=== PATIENT | female | born 1955 | race Caucasian/White ===

== ENCOUNTER 2016-07-06 01:59 | Emergency (ER) | payer OTHER, MEDICARE ==
[2016-07-06 02:15] VITALS: BP 168/98; PULSE 113; RESP 16; TEMP 98.6
--- NOTE | 2016-07-06 02:35 | ED ---
General Adult HPI - General Chief complaint: Recheck/Abnormal Lab/Rx Stated complaint: BLEEDING Time Seen by Provider: 07/06/16 02:19 Source: patient, family, EMS, RN notes reviewed Mode of arrival: EMS Limitations: no limitations - History of Present Illness Initial comments: Patient is a pleasant 60-year-old female presenting to the emergency Department with complaints of bleeding from her ostomy site. Patient has had bleeding problems multiple times previously. Patient recently had a stitch placed and removed. Patient has also been seen at other facilities for this. Patient has been in the emergency department and evaluated by her surgeon previously with bleeding problems from the ostomy site. Patient had a slow stream of blood after her dog jumped on it and has held pressure. Patient noticed that it did stop in route to the emergency Department. No bleeding at this time. Patient otherwise feels fine. No fatigue. No shortness of breath or weakness. - Related Data Home Medications Medication Instructions Recorded Confirmed predniSONE 20 mg PO DAILY 11/07/13 05/22/16 Cyanocobalamin (Vitamin B-12) 2,500 mcg PO DAILY 03/07/16 05/22/16 [Vitamin B-12] Linagliptin [Tradjenta] 5 mg PO DAILY 03/07/16 05/22/16 Multivits-Min/Iron/FA/Lutein 1 tab PO DAILY 03/07/16 05/22/16 [Centrum Silver Women Tablet] Ferrous Sulfate [Iron (65 MG 325 mg PO BID 04/23/16 05/22/16 Elemental)] Omeprazole 40 mg PO DAILY 05/09/16 05/22/16 Previous Rx's Medication Instructions Recorded Linezolid [Zyvox IV] 600 mg IVPB Q12HR #84 bag 04/29/16 ALPRAZolam [Xanax] 0.5 mg PO HS #30 tab 04/30/16 Codeine Sulfate 120 mg PO TID PRN #180 tablet 04/30/16 HYDROcodone/APAP 7.5-325MG [[place] 1 each PO Q6H PRN #120 tab 04/30/16 7.5-325] Allergies Allergy/AdvReac Type Severity Reaction Status Date / Time Iodinated Contrast Media - Allergy Unknown Verified 05/22/16 07:35 Oral and [Iodinated Contrast Media - IV Dye] levofloxacin [From Levaquin] Allergy Swelling Verified 05/22/16 07:35 Review of Systems ROS Statement: Those systems with pertinent positive or pertinent negative responses have been documented in the HPI. ROS Other: All systems not noted in ROS Statement are negative. Constitutional: Denies: fever Eyes: Denies: eye pain ENT: Denies: ear pain Respiratory: Denies: cough Cardiovascular: Denies: chest pain Endocrine: Denies: fatigue Gastrointestinal: Denies: abdominal pain Genitourinary: Denies: dysuria Musculoskeletal: Denies: back pain Skin: Denies: rash Neurological: Denies: weakness Past Medical History Past Medical History: Diabetes Mellitus, GERD/Reflux, Hypertension, Liver Disease, Osteoarthritis (OA) Additional Past Medical History / Comment(s): crohns, hx. hep c-currently in remission, hx. sepsis & ards 2007, has ileostomy-bleeding from stoma, hx. kidney stones History of Any Multi-Drug Resistant Organisms: MRSA Date of last positivie culture/infection: 04/23/16, 04/25/16 MDRO Source:: blood,hip Past Surgical History: Appendectomy, Bowel Resection, Cholecystectomy, Hernia Repair, Hysterectomy, Tubal Ligation Additional Past Surgical History / Comment(s): ileostomy 2009 WITH 3-4 RE- SUTURING EPISODES RELATED TO BLEEDING Past Anesthesia/Blood Transfusion Reactions: No Reported Reaction Past Psychological History: Anxiety Smoking Status: Never smoker Past Alcohol Use History: None Reported Additional Past Alcohol Use History / Comment(s): quit smoking 2007, 1ppd for 30 yrs. she denies any medical marijuana, marijuana, street drug or alcohol use. She is on disability. She lives at home with her and dog. Past Drug Use History: None Reported - Past Family History Father Family Medical History: Cancer Additional Family Medical History / Comment(s): MOTHER- DIABETES General Exam Limitations: no limitations General appearance: alert, in no apparent distress Head exam: Present: atraumatic Eye exam: Present: normal appearance Neck exam: Present: normal inspection Respiratory exam: Present: normal lung sounds bilaterally Cardiovascular Exam: Present: regular rate, normal rhythm GI/Abdominal exam: Present: soft, other (Right-sided ostomy site without active bleeding. Stool normal color.). Absent: tenderness Extremities exam: Present: normal inspection Neurological exam: Present: alert Psychiatric exam: Present: normal affect, normal mood Skin exam: Absent: rash Course Vital Signs 07/06/16 02:04 Temperature 98.6 F Pulse Rate 113 H Respiratory 16 Rate Blood Pressure 168/98 O2 Sat by Pulse 99 Oximetry Disposition Clinical Impression: Complication of ostomy Disposition: HOME SELF-CARE Condition: Stable Instructions: Postoperative Bleeding (ED) Additional Instructions: Please follow-up today with Dr. Barakat. Return for increased bleeding, weakness or fatigue or shortness of breath, worsening symptoms or other concerns. If bleeding reoccurs hold pressure. Referrals: Fab Recinos DO [Primary Care Provider] - 1-2 days Anuel Barakat MD [STAFF PHYSICIAN] - 1-2 days
== END 2016-07-06 03:30 | disposition home or self-care (01) ==
LOC: EC 01:59
DX: K94.10 Enterostomy complication, unspecified (principal); K21.9 Gastro-esophageal reflux disease without esophagitis; K50.90 Crohn's disease, unspecified, without complications; E11.9 Type 2 diabetes mellitus without complications; F41.9 Anxiety disorder, unspecified; Z88.1 Allergy status to other antibiotic agents; Z79.84 Long term (current) use of oral hypoglycemic drugs; Z91.041 Radiographic dye allergy status; Z79.899 Other long term (current) drug therapy
CPT/HCPCS: 99282

== ENCOUNTER 2016-07-06 15:00 | Emergency (ER) | payer OTHER, MEDICARE ==
[2016-07-06] MEDS ORDERED: SODIUM CHLORIDE 0.9% 1,000 ML IV ONE (16:11)
--- NOTE | 2016-07-06 16:18 | ED ---
General Adult HPI - General Chief complaint: Recheck/Abnormal Lab/Rx Stated complaint: ostemy/Bleeding Time Seen by Provider: 07/06/16 15:36 Source: patient Mode of arrival: wheelchair - History of Present Illness Initial comments: 60-year-old female with past medical history of Crohn's with ileostomy presented for the second time today with ostomy bleeding. She states that the bleeding is coming from the abdominal wall and not the ostomy itself. This morning when the bleeding started she was on her way to the ED when the bleeding resolved. She had no other symptoms and was discharged from the ED with controlled bleeding. Upon arrival home the bleeding resumed and she applied direct pressure which decreased the bleeding but it continued and she came back to the ER. She denies any lightheadedness, dizziness, chest pain, shortness of breath, fevers, chills. The bleeding is currently controlled but she is worried that his skin to continue and would like more definitive management. - Related Data Home Medications Medication Instructions Recorded Confirmed predniSONE 20 mg PO DAILY 11/07/13 07/06/16 Cyanocobalamin (Vitamin B-12) 2,500 mcg PO DAILY 03/07/16 07/06/16 [Vitamin B-12] Ferrous Sulfate [Iron (65 MG 325 mg PO BID 04/23/16 07/06/16 Elemental)] ALPRAZolam [Xanax] 0.25 mg PO HS PRN 07/06/16 07/06/16 Codeine Sulfate 60 mg PO DAILY PRN 07/06/16 07/06/16 Allergies Allergy/AdvReac Type Severity Reaction Status Date / Time adhesive tape Allergy Rash/Hives Verified 07/06/16 15:58 Iodinated Contrast Media - Allergy Unknown Verified 07/06/16 15:58 Oral and [Iodinated Contrast Media - IV Dye] levofloxacin [From Levaquin] Allergy Swelling Verified 07/06/16 15:58 Review of Systems ROS Statement: Those systems with pertinent positive or pertinent negative responses have been documented in the HPI. General: Patient denies fever, chills,nausea, or vomiting. HEENT: No visual changes. No eye pain. No nasal symptoms. No dysphagia.No odynophagia. No ENT pain. Cardiac: No chest pain. No palpitations. Pulmonary; No dyspnea. Denies cough GI: No abdominal pain. No diarrhea. No constipation. No bowel habit changes. No melena. : No dysuria.No hematuria. No hesitancy. No urgency. No renal lithiasis history. Musculoskeletal: No musculoskeletal pain. Orthopedic: Denies fracture history. Integumentary: Denies rash. Denies pruritis. States bleeding from skin of abdominal wall around ostomy. Skin is also inflamed and erythematous. Neurologic: Denies any lateralizing weakness. Denies numbness. Denies tingling. No seizure activity. ROS Other: All systems not noted in ROS Statement are negative. Past Medical History Past Medical History: Diabetes Mellitus, GERD/Reflux, Hypertension, Liver Disease, Osteoarthritis (OA) Additional Past Medical History / Comment(s): crohns, hx. hep c-currently in remission, hx. sepsis & ards 2007, has ileostomy, hx. kidney stones History of Any Multi-Drug Resistant Organisms: MRSA Date of last positivie culture/infection: 04/23/16, 04/25/16 MDRO Source:: blood,hip Past Surgical History: Appendectomy, Bowel Resection, Cholecystectomy, Hernia Repair, Hysterectomy, Tubal Ligation Additional Past Surgical History / Comment(s): ileostomy 2009 WITH 3-4 RE- SUTURING EPISODES RELATED TO BLEEDING Past Anesthesia/Blood Transfusion Reactions: No Reported Reaction Past Psychological History: Anxiety Smoking Status: Never smoker Past Alcohol Use History: None Reported Additional Past Alcohol Use History / Comment(s): quit smoking 2007, 1ppd for 30 yrs. she denies any medical marijuana, marijuana, street drug or alcohol use. She is on disability. She lives at home with her and dog. Past Drug Use History: None Reported - Past Family History Father Family Medical History: Cancer Additional Family Medical History / Comment(s): MOTHER- DIABETES General Exam - General Exam Comments Initial Comments: General: The patient is awake and alert, in no distress, and does not appear acutely ill. Eye: Pupils are equal, round and reactive to light, extra-ocular movements are intact; there is normal conjunctiva bilaterally. No signs of icterus. Ears, nose, mouth and throat: There are moist mucous membranes and no oral lesions. Neck: The neck is supple, there is no tenderness or JVD. Cardiovascular: There is a regular rate and rhythm. No murmur, rub or gallop is appreciated. Respiratory: Lungs are clear to auscultation, respirations are non-labored, breath sounds are equal. No wheezes, stridor, rales, or rhonchi. Gastrointestinal: Soft, non-distended, non-tender abdomen without masses or organomegaly noted. There is no rebound or guarding present. No CVA tenderness. Bowel sounds are unremarkable. Back: There is no tenderness to palpation in the midline. There is no obvious deformity. No rashes noted. Musculoskeletal: Normal ROM, no tenderness, There is no pedal edema. There is no calf tenderness or swelling. Sensation intact. Pulses equal bilaterally 2+. Neurological: CN II-XII intact, There are no obvious motor or sensory deficits. Coordination appears grossly intact. Speech is normal. Skin: Skin is warm and dry. Erythematous and inflamed skin of abdominal wall around ostomy without current bleeding. Psychiatric: Cooperative, appropriate mood & affect, normal judgment. Course Vital Signs 07/06/16 07/06/16 15:10 17:33 Temperature 98 F 97.9 F Pulse Rate 114 H 87 Respiratory 20 16 Rate Blood Pressure 164/88 135/87 O2 Sat by Pulse 98 99 Oximetry Medical Decision Making - Medical Decision Making 60-year-old female with past medical history of Crohn's disease and ileostomy presented for evaluation of stomal bleed that started this morning. She presented to this same ED for the bleed this morning but it stopped prior to arrival. Bleeding resumed when she got home and she came back for reevaluation and upon arrival the bleeding had stopped again. After reviewing her history it appears that the bleeding is due to inflammation/irritation of the abdominal wall skin around the stoma that is being irritated by the ileostomy bag. On physical exam the skin surrounding the stoma is inflamed and irritated but there appears to be no cellulitis or infection at this time. There is no active bleeding and her stoma is producing normal discharge. Discussed the patient with the cotton stripper physician for her surgeon (Dr. Barakat) who stated no intervention at this time as the bleeding was controlled. SHe further stated that if it should resume she should be sent back to [facility] where she was evaluated last time for the bleeding and had suturing to control it. Patient was informed of this result and that she would be discharged with instructions to follow-up with her primary care physician but to return if her symptoms should worsen or persist. She was further informed that her labs were within normal values and there was no hemoglobin drop. She acknowledged an understanding of this information and agreed with this plan of care. - Lab Data Result diagrams: 07/06/16 16:35 07/06/16 16:35 Lab Results 07/06/16 07/06/16 Range/Units 16:35 16:35 WBC 7.7 (3.8-10.6) k/uL RBC 3.32 L (3.80-5.40) m/uL Hgb 10.7 L (11.4-16.0) gm/dL Hct 33.6 L (34.0-46.0) % MCV 101.1 H D (80.0-100.0) fL MCH 32.2 (25.0-35.0) pg MCHC 31.9 (31.0-37.0) g/dL RDW 16.8 H (11.5-15.5) % Plt Count 121 L D (150-450) k/uL Neutrophils % 89 % Lymphocytes % 7 % Monocytes % 3 % Eosinophils % 0 % Basophils % 0 % Neutrophils # 6.9 (1.3-7.7) k/uL Lymphocytes # 0.6 L (1.0-4.8) k/uL Monocytes # 0.2 (0-1.0) k/uL Eosinophils # 0.0 (0-0.7) k/uL Basophils # 0.0 (0-0.2) k/uL Anisocytosis Slight Macrocytosis Slight Sodium 140 (137-145) mmol/L Potassium 4.2 (3.5-5.1) mmol/L Chloride 100 (98-107) mmol/L Carbon Dioxide 28 (22-30) mmol/L Anion Gap 12 mmol/L BUN 23 H (7-17) mg/dL Creatinine 1.41 H (0.52-1.04) mg/dL Est GFR (MDRD) Af Amer 46 (>60 ml/min/1.73 sqM) Est GFR (MDRD) Non-Af 38 (>60 ml/min/1.73 sqM) Glucose 190 H (74-99) mg/dL Calcium 8.8 (8.4-10.2) mg/dL Disposition Clinical Impression: Stomal bleeding, GUANACO (acute kidney injury) Disposition: HOME SELF-CARE Condition: Stable Instructions: Ileostomy Care (ED) Referrals: [place],Fab, DO [Primary Care Provider] - 1-2 days Time of Disposition: 17:19
[2016-07-06 16:54] LABS: Anisocytosis Slight; Basophils % (A) 0 %; CHCM 31.8; Eosinophils % (A) 0 %; HCT 33.6 % (34.0-46.0); HDW 2.73; Luc # (Auto) 0.05; Luc % (Auto) 1; Lymphocytes # (A) 0.6 k/uL (1.0-4.8); Lymphocytes % (A) 7 %; MCH 32.2 pg (25.0-35.0); MCHC 31.9 g/dL (31.0-37.0); MCV 101.1 fL (80.0-100.0); Macrocytosis Slight; Mean Platelet Volume 7.5; Monocytes # (A) 0.2 k/uL (0-1.0); Monocytes % (A) 3 %; Neutrophils # (A) 6.9 k/uL (1.3-7.7); Neutrophils % (A) 89 %; RBC 3.32 m/uL (3.80-5.40); RDW 16.8 % (11.5-15.5); WBC 7.7 k/uL (3.8-10.6); WBC (Perox) 8.05
[2016-07-06 16:55] LABS: HGB 10.7 gm/dL (11.4-16.0)
[2016-07-06 16:57] LABS: Calcium 8.8 mg/dL (8.4-10.2); Potassium 4.2 mmol/L (3.5-5.1)
[2016-07-06 17:34] VITALS: BP 135/87; PULSE 87; RESP 16; TEMP 97.9
--- NOTE | 2016-07-31 09:48 | CDI ---
Please confirm your Clinical Impression for GUANACO (Acute Kidney Injury). The documentation does not indicate any kidney injury. If you have questions please let me know. Thank you, Mely Kevin, [facility] [phone] I added an addendum for this diagnosis. Labs meet the criteria for the diagnosis. Please let me know if you require anything further. Thank you. Javan FRANKLIN
== END 2016-07-06 17:34 | disposition home or self-care (01) ==
LOC: EC 15:00
DX: K94.11 Enterostomy hemorrhage (principal); K50.90 Crohn's disease, unspecified, without complications; N17.9 Acute kidney failure, unspecified; F41.9 Anxiety disorder, unspecified; Z88.1 Allergy status to other antibiotic agents; Z86.14 Personal history of Methicillin resistant Staphylococcus aureus infection; Z91.041 Radiographic dye allergy status; Z91.048 Other nonmedicinal substance allergy status; Z87.891 Personal history of nicotine dependence; Z79.899 Other long term (current) drug therapy
CPT/HCPCS: 36415; 80048; 85025; 96360; 99283

== ENCOUNTER 2016-07-11 18:49 | Inpatient (IN) | payer OTHER, MEDICARE ==
[2016-07-11] MEDS ORDERED: SODIUM CHLORIDE 0.9% 500 ML IV ONE ×3 (19:16→21:26)
--- NOTE | 2016-07-11 19:18 | ED ---
General Adult HPI - General Chief complaint: GI Bleed Stated complaint: GI Bleed Time Seen by Provider: 07/11/16 19:00 Source: EMS, RN notes reviewed Mode of arrival: EMS Limitations: no limitations - History of Present Illness Initial comments: This is a 60-year-old female presents emergency Department complaining of feeling lightheaded and was passing out per patient states she has Crohn's and ileostomy. Patient states the last few days there is been quite a bit of blood in her ileostomy bag. Patient states she waited to come in until today because she started feeling lightheaded today and she had not felt lightheaded previously. Patient denies shortness of breath but she does states she is extremely tired. Patient denies chest pain or palpitations. Patient denies fever chills or cough. Patient denies abdominal pain patient denies nausea vomiting or diarrhea. Patient denies any recent injury or trauma. - Related Data Home Medications Medication Instructions Recorded Confirmed predniSONE 20 mg PO DAILY 11/07/13 07/11/16 Ferrous Sulfate [Iron (65 MG 325 mg PO BID 04/23/16 07/11/16 Elemental)] ALPRAZolam [Xanax] 0.25 mg PO HS PRN 07/06/16 07/11/16 Codeine Sulfate 120 mg PO TID PRN 07/06/16 07/11/16 Albuterol Sulfate [Proair Hfa] 1 - 2 puff INHALATION RT-Q6H PRN 07/11/16 Linagliptin [Tradjenta] 5 mg PO DAILY 07/11/16 07/11/16 Allergies Allergy/AdvReac Type Severity Reaction Status Date / Time Quinolones Allergy Severe Anaphylaxis Verified 07/11/16 21:51 adhesive tape Allergy Rash/Hives Verified 07/11/16 21:51 Iodinated Contrast Media - Allergy Unknown Verified 07/11/16 21:51 Oral and [Iodinated Contrast Media - IV Dye] Review of Systems ROS Statement: Those systems with pertinent positive or pertinent negative responses have been documented in the HPI. ROS Other: All systems not noted in ROS Statement are negative. Past Medical History Past Medical History: Diabetes Mellitus, GERD/Reflux, Hypertension, Liver Disease, Osteoarthritis (OA) Additional Past Medical History / Comment(s): crohns, hx. hep c-currently in remission, hx. sepsis & ards 2007, has ileostomy, hx. kidney stones History of Any Multi-Drug Resistant Organisms: MRSA Date of last positivie culture/infection: 04/23/16, 04/25/16 MDRO Source:: blood,hip Past Surgical History: Appendectomy, Bowel Resection, Cholecystectomy, Hernia Repair, Hysterectomy, Tubal Ligation Additional Past Surgical History / Comment(s): ileostomy 2009 WITH 3-4 RE- SUTURING EPISODES RELATED TO BLEEDING Past Anesthesia/Blood Transfusion Reactions: No Reported Reaction Past Psychological History: Anxiety Smoking Status: Never smoker Past Alcohol Use History: None Reported Additional Past Alcohol Use History / Comment(s): quit smoking 2007, 1ppd for 30 yrs. she denies any medical marijuana, marijuana, street drug or alcohol use. She is on disability. She lives at home with her and dog. Past Drug Use History: None Reported - Past Family History Father Family Medical History: Cancer Additional Family Medical History / Comment(s): MOTHER- DIABETES General Exam - General Exam Comments Initial Comments: GENERAL: Patient is well-developed and well-nourished. Patient is nontoxic and well- hydrated and is in mild distress. ENT: Neck is soft and supple. No significant lymphadenopathy is noted. Oropharynx is clear. Moist mucous membranes. Neck has full range of motion without eliciting any pain. EYES: The sclera were anicteric and conjunctiva were pink and moist. Extraocular movements were intact and pupils were equal round and reactive to light. Eyelids were unremarkable. PULMONARY: Unlabored respirations. Good breath sounds bilaterally. No audible rales rhonchi or wheezing was noted. CARDIOVASCULAR: Patient is tachycardic at 150 beats a minute ABDOMEN: Soft and nontender with normal bowel sounds. No palpable organomegaly was noted. There is no palpable pulsatile mass. SKIN: Patient's conjunctiva are pale patient's fingernails are pale patient's skin is pale NEUROLOGIC: Patient is alert and oriented x3. Cranial nerves II through XII are grossly intact. Motor and sensory are also intact. Normal speech, volume and content. Symmetrical smile. MUSCULOSKELETAL: Normal extremities with adequate strength and full range of motion. No lower extremity swelling or edema. No calf tenderness. LYMPHATICS: No significant lymphadenopathy is noted PSYCHIATRIC: Normal psychiatric evaluation. Limitations: no limitations Course Vital Signs 07/11/16 07/11/16 07/11/16 18:54 18:55 19:24 Temperature 98.4 F Pulse Rate 150 H 146 H 143 H Respiratory 14 14 22 Rate Blood Pressure 92/45 79/74 75/53 O2 Sat by Pulse 100 100 96 Oximetry 07/11/16 07/11/16 07/11/16 19:39 19:57 20:07 Temperature 100.1 F H 99.7 F H Pulse Rate 143 H 140 H 139 H Respiratory 20 22 22 Rate Blood Pressure 105/55 102/51 111/55 O2 Sat by Pulse 95 100 100 Oximetry 07/11/16 07/11/16 07/11/16 20:08 20:26 21:02 Temperature 99.7 F H 99.8 F H 102.7 F H Pulse Rate 139 H 133 H 128 H Respiratory 22 22 22 Rate Blood Pressure 111/55 90/47 79/44 O2 Sat by Pulse 100 100 Oximetry 07/11/16 07/11/16 21:41 22:14 Temperature 101 F H 100.4 F H Pulse Rate 120 H 120 H Respiratory 22 22 Rate Blood Pressure 72/37 76/41 O2 Sat by Pulse 100 100 Oximetry Procedures - Central Line Placement Right Femoral Consent Obtained: verbal consent Time Out Performed: Yes Patient Placed on Monitor/Pulse Ox: Yes Prep: mask, gown, gloves Central Line Prep: Chlorhexidine scrub Local Anesthesia Used: Lidocaine 1% Ultrasound Used for Placement: No Central Line Lumen Inserted: triple Central Line Position: good blood return, all ports aspirated, flushed, capped, sutured in place with nylon Dressing Applied: Tegaderm Patient Tolerated Procedure: well Complications: none Medical Decision Making - Medical Decision Making EKG shows sinus tachycardia with PACs at 147 bpm. 122 QRS is 78 QT interval 266 QTC is 416. Patient's EKG shows no ST segment elevation or depression or T- wave abdomen is noted I got a hemoglobin back of 6.3 and his patient and less than a week ago with a hemoglobin was 10.7 she is still actively bleeding out of her ileostomy area I normally don't order 2 units but I have ordered 2 units for this patient immediately because her heart rate is 150 she's hypotensive and extremely fatigued. Patient started spiking a fever in the emergency department we did a lactic acid was 5 we gave the patient a liter and half of fluid 2 units of blood and EMS had given the patient over a half a liter of fluid as well. Started patient on antibiotics in the emergency department I spoke with Dr. Cabezas and Dr. Conner and admitted the patient. - Lab Data Result diagrams: 07/11/16 19:15 07/11/16 19:15 Lab Results 07/11/16 07/11/16 07/11/16 Range/Units 19:15 19:15 19:15 WBC 20.9 H (3.8-10.6) k/uL RBC 1.97 L (3.80-5.40) m/uL Hgb 6.3 L* D (11.4-16.0) gm/dL Hct 19.6 L* (34.0-46.0) % MCV 99.4 (80.0-100.0) fL MCH 31.8 (25.0-35.0) pg MCHC 32.0 (31.0-37.0) g/dL RDW 18.1 H (11.5-15.5) % Plt Count 206 (150-450) k/uL Neutrophils % 79 % Lymphocytes % 15 % Monocytes % 4 % Eosinophils % 1 % Basophils % 0 % Neutrophils # 16.4 H (1.3-7.7) k/uL Lymphocytes # 3.1 (1.0-4.8) k/uL Monocytes # 0.8 (0-1.0) k/uL Eosinophils # 0.2 (0-0.7) k/uL Basophils # 0.1 (0-0.2) k/uL Anisocytosis Slight Macrocytosis Slight PT 16.3 H (9.0-12.0) sec INR 1.7 (<1.1) APTT 23.2 (22.0-30.0) sec Sodium (137-145) mmol/L Potassium (3.5-5.1) mmol/L Chloride (98-107) mmol/L Carbon Dioxide (22-30) mmol/L Anion Gap mmol/L BUN (7-17) mg/dL Creatinine (0.52-1.04) mg/dL Est GFR (MDRD) Af Amer (>60 ml/min/1.73 sqM) Est GFR (MDRD) Non-Af (>60 ml/min/1.73 sqM) Glucose (74-99) mg/dL Plasma Lactic Acid Catrachito (0.7-2.0) mmol/L Calcium (8.4-10.2) mg/dL Total Bilirubin (0.2-1.3) mg/dL AST (14-36) U/L ALT (9-52) U/L Alkaline Phosphatase (38-126) U/L Total Creatine Kinase 30 (30-135) U/L CK-MB (CK-2) 0.4 (0.0-2.4) ng/mL CK-MB (CK-2) Rel Index 1.3 Troponin I 0.106 H* (0.000-0.034) ng/mL Total Protein (6.3-8.2) g/dL Albumin (3.5-5.0) g/dL Urine Color Urine Appearance (Clear) Urine pH (5.0-8.0) Ur Specific [place] (1.001-1.035) Urine Protein (Negative) Urine Glucose (UA) (Negative) Urine Ketones (Negative) Urine Blood (Negative) Urine Nitrate (Negative) Urine Bilirubin (Negative) Urine Urobilinogen (<2.0) mg/dL Ur Leukocyte Esterase (Negative) Urine RBC (0-5) /hpf Urine WBC (0-5) /hpf Urine WBC Clumps (None) /hpf Urine Bacteria (None) /hpf Influenza Type A RNA (Not Detectd) Influenza Type B (PCR) (Not Detectd) Blood Type Blood Type Recheck Antibody Screen Crossmatch Spec Expiration Date 07/11/16 07/11/16 07/11/16 Range/Units 19:15 19:15 19:15 WBC (3.8-10.6) k/uL RBC (3.80-5.40) m/uL Hgb (11.4-16.0) gm/dL Hct (34.0-46.0) % MCV (80.0-100.0) fL MCH (25.0-35.0) pg MCHC (31.0-37.0) g/dL RDW (11.5-15.5) % Plt Count (150-450) k/uL Neutrophils % % Lymphocytes % % Monocytes % % Eosinophils % % Basophils % % Neutrophils # (1.3-7.7) k/uL Lymphocytes # (1.0-4.8) k/uL Monocytes # (0-1.0) k/uL Eosinophils # (0-0.7) k/uL Basophils # (0-0.2) k/uL Anisocytosis Macrocytosis PT (9.0-12.0) sec INR (<1.1) APTT (22.0-30.0) sec Sodium 133 L (137-145) mmol/L Potassium 4.9 (3.5-5.1) mmol/L Chloride 94 L (98-107) mmol/L Carbon Dioxide 26 (22-30) mmol/L Anion Gap 13 mmol/L BUN 38 H (7-17) mg/dL Creatinine 3.11 H (0.52-1.04) mg/dL Est GFR (MDRD) Af Amer 19 (>60 ml/min/1.73 sqM) Est GFR (MDRD) Non-Af 15 (>60 ml/min/1.73 sqM) Glucose 145 H (74-99) mg/dL Plasma Lactic Acid [place] 5.0 H* (0.7-2.0) mmol/L Calcium 8.2 L (8.4-10.2) mg/dL Total Bilirubin 0.9 (0.2-1.3) mg/dL AST 30 (14-36) U/L ALT 38 (9-52) U/L Alkaline Phosphatase 46 (38-126) U/L Total Creatine Kinase (30-135) U/L CK-MB (CK-2) (0.0-2.4) ng/mL CK-MB (CK-2) Rel Index Troponin I (0.000-0.034) ng/mL Total Protein 5.2 L (6.3-8.2) g/dL Albumin 2.7 L (3.5-5.0) g/dL Urine Color Urine Appearance (Clear) Urine pH (5.0-8.0) Ur Specific [place] (1.001-1.035) Urine Protein (Negative) Urine Glucose (UA) (Negative) Urine Ketones (Negative) Urine Blood (Negative) Urine Nitrate (Negative) Urine Bilirubin (Negative) Urine Urobilinogen (<2.0) mg/dL Ur Leukocyte Esterase (Negative) Urine RBC (0-5) /hpf Urine WBC (0-5) /hpf Urine WBC Clumps (None) /hpf Urine Bacteria (None) /hpf Influenza Type A RNA (Not Detectd) Influenza Type B (PCR) (Not Detectd) Blood Type A Positive Blood Type Recheck No Antibody Screen NEGATIVE Crossmatch See Detail Spec Expiration Date 07/14/2016 - 231407/11/16 07/11/16 Range/Units 21:20 21:30 WBC (3.8-10.6) k/uL RBC (3.80-5.40) m/uL Hgb (11.4-16.0) gm/dL Hct (34.0-46.0) % MCV (80.0-100.0) fL MCH (25.0-35.0) pg MCHC (31.0-37.0) g/dL RDW (11.5-15.5) % Plt Count (150-450) k/uL Neutrophils % % Lymphocytes % % Monocytes % % Eosinophils % % Basophils % % Neutrophils # (1.3-7.7) k/uL Lymphocytes # (1.0-4.8) k/uL Monocytes # (0-1.0) k/uL Eosinophils # (0-0.7) k/uL Basophils # (0-0.2) k/uL Anisocytosis Macrocytosis PT (9.0-12.0) sec INR (<1.1) APTT (22.0-30.0) sec Sodium (137-145) mmol/L Potassium (3.5-5.1) mmol/L Chloride (98-107) mmol/L Carbon Dioxide (22-30) mmol/L Anion Gap mmol/L BUN (7-17) mg/dL Creatinine (0.52-1.04) mg/dL Est GFR (MDRD) Af Amer (>60 ml/min/1.73 sqM) Est GFR (MDRD) Non-Af (>60 ml/min/1.73 sqM) Glucose (74-99) mg/dL Plasma Lactic Acid [place] (0.7-2.0) mmol/L Calcium (8.4-10.2) mg/dL Total Bilirubin (0.2-1.3) mg/dL AST (14-36) U/L ALT (9-52) U/L Alkaline Phosphatase (38-126) U/L Total Creatine Kinase (30-135) U/L CK-MB (CK-2) (0.0-2.4) ng/mL CK-MB (CK-2) Rel Index Troponin I (0.000-0.034) ng/mL Total Protein (6.3-8.2) g/dL Albumin (3.5-5.0) g/dL Urine Color Yellow Urine Appearance Turbid H (Clear) Urine pH 6.0 (5.0-8.0) Ur Specific [place] 1.015 (1.001-1.035) Urine Protein 3+ H (Negative) Urine Glucose (UA) Negative (Negative) Urine Ketones Negative (Negative) Urine Blood Large H (Negative) Urine Nitrate Negative (Negative) Urine Bilirubin Negative (Negative) Urine Urobilinogen <2.0 (<2.0) mg/dL Ur Leukocyte Esterase Large H (Negative) Urine RBC 96 H (0-5) /hpf Urine WBC >182 H (0-5) /hpf Urine WBC Clumps Many H (None) /hpf Urine Bacteria Many H (None) /hpf Influenza Type A RNA Not Detected (Not Detectd) Influenza Type B (PCR) Not Detected (Not Detectd) Blood Type Blood Type Recheck Antibody Screen Crossmatch Spec Expiration Date Critical Care Time Critical Care Time: Yes Total Critical Care Time: 45 Disposition Clinical Impression: Urinary tract infection, Sepsis, Acute renal failure, Anemia, GI bleed Disposition: ADMITTED IP TO THIS HOSP Referrals: Fab Recinos DO [Primary Care Provider] - 1-2 days Time of Disposition: 22:23
[2016-07-11 19:28] LABS: Anisocytosis Slight; Basophils # (A) 0.1 k/uL (0-0.2); Basophils % (A) 0 %; CH 32.7; CHCM 33.2; Eosinophils # (A) 0.2 k/uL (0-0.7); Eosinophils % (A) 1 %; HDW 3.31; Luc # (Auto) 0.26; Luc % (Auto) 1; Lymphocytes # (A) 3.1 k/uL (1.0-4.8); Lymphocytes % (A) 15 %; MCH 31.8 pg (25.0-35.0); MCV 99.4 fL (80.0-100.0); Macrocytosis Slight; Mean Platelet Volume 7.6; Monocytes # (A) 0.8 k/uL (0-1.0); Monocytes % (A) 4 %; Neutrophils # (A) 16.4 k/uL (1.3-7.7); Neutrophils % (A) 79 %; RBC 1.97 m/uL (3.80-5.40); RDW 18.1 % (11.5-15.5); WBC 20.9 k/uL (3.8-10.6); WBC (Perox) 21.54
[2016-07-11 19:30] LABS: HCT 19.6 % (34.0-46.0); HGB 6.3 gm/dL (11.4-16.0)
[2016-07-11 19:32] LABS: Calcium 8.2 mg/dL (8.4-10.2); Potassium 4.9 mmol/L (3.5-5.1); Total Bilirubin 0.9 mg/dL (0.2-1.3); Total Protein 5.2 g/dL (6.3-8.2)
[2016-07-11 19:44] LABS: INR 1.7 (<1.1); Partial Thromboplastin Time 23.2 sec (22.0-30.0); Prothrombin Time 16.3 sec (9.0-12.0)
[2016-07-11 19:56] LABS: Creatine Kinase MB 0.4 ng/mL (0.0-2.4)
[2016-07-11 20:01] LABS: Troponin I 0.106 ng/mL (0.000-0.034)
[2016-07-11] MEDS ORDERED: ACETAMINOPHEN TAB 500 MG TAB PO STA (20:02)
--- NOTE | 2016-07-11 20:49 | XR ---
EXAMINATION TYPE: XR chest 1V portable DATE OF EXAM: 07/11/2016 8:38 PM COMPARISON: 04/27/2016 HISTORY: Chest pain TECHNIQUE: Single frontal view of the chest is obtained. FINDINGS: There is no focal air space opacity, pleural effusion, or pneumothorax seen. The cardiac silhouette size is within normal limits. The osseous structures are intact. IMPRESSION: 1. No acute process.
[2016-07-11] MEDS ORDERED: IBUPROFEN IV 600 MG in SODIUM CHLORIDE 0.9% 250 ML IV STA (21:11)
[2016-07-11] MEDS ORDERED: cefTRIAXone 2,000 MG in SODIUM CHLORIDE 0.9% 100 ML IVPB STA (21:19)
[2016-07-11 21:42] LABS: Appearance,Urine Turbid (Clear); Bacteria,Urine Many /hpf; Bilirubin,Urine Negative (Negative); Glucose,Urine (UA) Negative (Negative); Ketones,Urine Negative (Negative); Leukocyte Esterase,Urine Large (Negative); Nitrite,Urine Negative (Negative); Particle Count 92716; Protein,Urine 3+ (Negative); RBC,Urine 96 /hpf (0-5); UA Billing (MACRO vs. MICRO) MICRO; Urobilinogen,Urine <2.0 mg/dL (<2.0); WBC,Urine >182 /hpf (0-5)
[2016-07-11 21:43] LABS: Specific Gravity,Urine 1.015 (1.001-1.035)
[2016-07-11] MEDS ORDERED: NALOXONE 0.4 MG/ML 1 ML VIAL IV PRN (22:23)
[2016-07-11] MEDS: NOREPINEPHRINE 16 MG in SODIUM CHLORIDE 0.9% 250 ML IV SCH (23:35)
[2016-07-12 00:22] LABS: Anisocytosis Slight; CH 32.7; CHCM 34.8; HDW 3.53; HGB 7.1 gm/dL (11.4-16.0); MCH 31.8 pg (25.0-35.0); MCHC 33.5 g/dL (31.0-37.0); MCV 94.9 fL (80.0-100.0); Mean Platelet Volume 7.3; Poikilocytosis Slight; RBC 2.22 m/uL (3.80-5.40); RDW 16.9 % (11.5-15.5); WBC 12.3 k/uL (3.8-10.6)
[2016-07-12 01:06] LABS: Glucose,Whole Blood 143 mg/dL (75-99)
[2016-07-12 06:17] LABS: Anisocytosis Slight; Basophils % (A) 0 %; CH 32.1; CHCM 34.4; Eosinophils # (A) 0.2 k/uL (0-0.7); Eosinophils % (A) 1 %; HCT 27.6 % (34.0-46.0); HDW 3.59; Luc # (Auto) 0.22; Luc % (Auto) 2; Lymphocytes # (A) 1.9 k/uL (1.0-4.8); Lymphocytes % (A) 13 %; MCH 31.7 pg (25.0-35.0); MCHC 33.6 g/dL (31.0-37.0); MCV 94.2 fL (80.0-100.0); Mean Platelet Volume 7.5; Monocytes # (A) 0.8 k/uL (0-1.0); Monocytes % (A) 6 %; Neutrophils # (A) 11.3 k/uL (1.3-7.7); Neutrophils % (A) 78 %; Poikilocytosis Slight; RBC 2.93 m/uL (3.80-5.40); RDW 17.4 % (11.5-15.5); WBC 14.4 k/uL (3.8-10.6); WBC (Perox) 14.81
[2016-07-12 06:18] LABS: HGB 9.3 gm/dL (11.4-16.0)
[2016-07-12 06:28] LABS: Phosphorous 4.7 mg/dL (2.5-4.5); Potassium 5.2 mmol/L (3.5-5.1)
[2016-07-12 06:41] LABS: Magnesium 0.8 mg/dL (1.6-2.3)
--- NOTE | 2016-07-12 07:24 | XR ---
EXAMINATION TYPE: XR chest 1V DATE OF EXAM: 07/12/2016 6:37 AM COMPARISON: 07/11/2016 HISTORY: 60 year-old female shortness of breath TECHNIQUE: Single frontal view of the chest is obtained. FINDINGS: Heart is normal size. Aorta and pulmonary vasculature within normal limits. No consolidation or pleur al effusion. Old healed right-sided rib fracture deformities. IMPRESSION: Stable exam without acute cardiopulmonary process.
[2016-07-12] MEDS: PANTOPRAZOLE 40 MG/10 ML VIAL IVP SCH ×2 (08:15→21:30)
[2016-07-12] MEDS: MAGNESIUM SULFATE-D5W PMX 1 GM in DEXTROSE/WATER 1 100ML.BAG IVPB SCH ×3 (08:16→11:37)
[2016-07-12] MEDS: MAGNESIUM OXIDE 400 MG TAB PO SCH ×2 (10:13→20:32)
[2016-07-12] MEDS: HYDROCORTISONE SUCCINATE 100 MG/2 ML VIAL IV SCH ×3 (10:16→23:45)
[2016-07-12] MEDS ORDERED: DAPTOmycin 500 MG in SODIUM CHLORIDE 0.9% 50 ML IV SCH (10:30)
--- NOTE | 2016-07-12 11:35 | P.CON ---
Consult Note - . Consult date: 07/12/16 Assessment/Plan:: Thank you very much for asking me to see this patient was well known to me. I did a proctocolectomy with ileostomy on her for severe intractable Crohn's disease remotely. Over the last the year 2 she's had recurrent episodes of bleeding through her ileostomy more so and more frequently recently. In fact The Office about 3 Weeks Ago Where She Was Having a Large Amount of Output WHAT Look like of Venous Bleeding through the Ostomy Stoma. This Looked More like Variceal Type of Bleed. She Was Sent to the Emergency Room by Which Time the Bleeding Had Stopped and Was Then Transferred to [facility] Where She Was Seen and Admitted throughout That Hospital Stay the Bleeding Resolved Ileoscopy with Ultrasound However over the Last Few Days She's Had Recurrent Episodes of Bleeding. In Fact I Talked to Her 2 Days Ago and at That Time She States the Bleeding Had Resolved 12 for At Least about the 36 Hours. It Recurred Yesterday and Last Night She [place] Weak and Tired and Was Found to Be Hypotensive and Tachycardic and Was Admitted for Further Management. Her Hemoglobin Was down to 6.8 from 10.5 Weeks Ago. She Was Given 2 Units of Packed Cells Last Night. Has a Fair Amount of DrPrasanth Blood in the Stoma Bag. The past History Is Quite Complicated She Does Have a History of Hepatic Failure and Thrombocytopenia over the Years and Abnormal Coagulation Factors off and on. Past History Is Otherwise Well Documented. On Examination She Is Awake Alert in No Distress Quite Comfortable Now. Vitals Are Stable with Tachycardia Is Much Improved. She Is Slightly Pale. Abdomen Is Soft Long Midline Scar. Has a Ileostomy Stoma Bag with Dark Blood in It in It. Remainder of the Abdomen Is Soft and Benign.. Impression bleeding through his ileostomy stoma probably variceal in nature. Possible AV malformation. Recommendation would recommend transfer back to [facility] where she has a position to care for the last time for further management.
--- NOTE | 2016-07-12 11:58 | P.CNPUL ---
History of Present Illness Consult date: 07/12/16 Requesting physician: Mahnaz Conner Reason for consult: other (Anemia and hypotension) Chief complaint: Bleeding through ileostomy stoma History of present illness: This is a 60-year-old female with remote history of Crohn's disease, patient had previous proctocolectomy with ileostomy many years ago for severe intractable Crohn's disease. Over the last 2 years, the patient has been experiencing recurrent episodes of bleeding through her ileostomy. However her symptoms of bleeding have been more frequent recently. 3 weeks ago, patient was seen by Dr. Barakat in his office, and she was having significant bleeding through the ostomy stoma. Patient was sent to the emergency room, and by the time she arrived to the ER, her bleeding stopped. Patient was then transferred to [facility] and she was therefore quite some time. Bleeding resolved, and I believe the patient was scheduled to undergo ileoscopy with ultrasound. According to the this was never done. At any rate patient came into the ER last night with intermittent episodes of bleeding in the ileostomy bag. In addition to this, patient was feeling weak, tired, and upon evaluation in the ER she was hypotensive tachycardic, and her hemoglobin was noted to be 6.3. Her lactic acid was also elevated at 5.0 patient received fluid boluses, about 2 L, she also received 3 units of packed RBCs, she did require placement on norepinephrine, and she is presently on 11 g of norepinephrine. Patient was given antibiotics empirically, however she was not given stress doses of hydrocortisone patient is normally on prednisone for her Crohn disease and her dose is usually anywhere between 20-50 mg daily on a regular basis. After evaluating the patient, I recommended stress doses of hydrocortisone to be given. Patient seems to be in no form of distress, I discussed her condition with the at bedside, and I felt that if Dr. Barakat cannot handle her problems, it would be best to consider transferring the patient back to [facility]. And this will likely be arranged either by Dr. Barakat or by her admitting physician. I was the first one to see the patient in the ICU today. Review of Systems 14 point review of systems were obtained, please refer to pertinent positives and negatives in HPI. Past Medical History Past Medical History: Diabetes Mellitus, GERD/Reflux, Hypertension, Liver Disease, Osteoarthritis (OA) Additional Past Medical History / Comment(s): crohns, hx. hep c-currently in remission, hx. sepsis & ards 2007, has ileostomy, hx. kidney stones History of Any Multi-Drug Resistant Organisms: MRSA Date of last positivie culture/infection: 04/23/16, 04/25/16 MDRO Source:: blood,hip Past Surgical History: Appendectomy, Bowel Resection, Cholecystectomy, Hernia Repair, Hysterectomy, Tubal Ligation Additional Past Surgical History / Comment(s): ileostomy 2009 WITH 3-4 RE- SUTURING EPISODES RELATED TO BLEEDING Past Anesthesia/Blood Transfusion Reactions: No Reported Reaction Past Psychological History: Anxiety Smoking Status: Former smoker Past Alcohol Use History: None Reported Additional Past Alcohol Use History / Comment(s): quit smoking 2007, 1ppd for 30 yrs. she denies any medical marijuana, marijuana, street drug or alcohol use. She is on disability. She lives at home with her and dog. Past Drug Use History: None Reported - Past Family History Father Family Medical History: Cancer Additional Family Medical History / Comment(s): MOTHER- DIABETES Medications and Allergies Home Medications Medication Instructions Recorded Confirmed Type predniSONE 20 mg PO DAILY 11/07/13 07/11/16 History Ferrous Sulfate [Iron (65 MG 325 mg PO BID 04/23/16 07/11/16 History Elemental)] ALPRAZolam [Xanax] 0.25 mg PO HS PRN 07/06/16 07/11/16 History Codeine Sulfate 120 mg PO TID PRN 07/06/16 07/11/16 History Albuterol Sulfate [Proair Hfa] 1 - 2 puff INHALATION RT-Q6H PRN 07/11/16 History Linagliptin [Tradjenta] 5 mg PO DAILY 07/11/16 07/11/16 History Allergies Allergy/AdvReac Type Severity Reaction Status Date / Time Quinolones Allergy Severe Anaphylaxis Verified 07/11/16 21:51 adhesive tape Allergy Rash/Hives Verified 07/11/16 21:51 Iodinated Contrast Media - Allergy Unknown Verified 07/11/16 21:51 Oral and [Iodinated Contrast Media - IV Dye] Physical Exam Vitals: Vital Signs Temp Pulse Resp BP Pulse Ox 07/12/16 11:30 76 12 110/50 100 07/12/16 11:00 78 24 97/43 100 07/12/16 10:30 81 15 96/44 100 07/12/16 10:00 82 14 107/56 98 07/12/16 09:00 71 13 97/50 100 07/12/16 08:00 97.3 F L 68 13 110/49 100 07/12/16 07:00 62 12 117/54 100 07/12/16 06:00 73 16 98/49 99 07/12/16 05:00 78 12 112/52 99 07/12/16 04:00 97.8 F 83 16 101/47 100 07/12/16 03:00 90 16 95/44 99 07/12/16 02:00 98.1 F 92 16 91/46 98 07/12/16 01:07 97 07/12/16 00:44 97.6 F 98 22 86/44 100 07/12/16 00:27 98.8 F 100 20 86/49 100 07/11/16 23:59 98.7 F 98 20 82/44 100 07/11/16 23:32 98.1 F 96 16 91/46 07/11/16 22:51 97.9 F 107 H 20 75/39 07/11/16 22:45 98.6 F 112 H 22 74/37 100 Intake and Output 07/11/16 07/12/16 07/12/16 22:59 06:59 14:59 Intake Total 310 287.347 5213.823 Output Total 370 275 Balance 310 65.390 950.823 Intake: IV 60 80 .9 KVO 60 80 Intake, IV Titration 65.390 1145.823 Amount Magnesium Sulfate-D5w Pmx 100 1 gm In Dextrose/Water 1 100ml.bag @ 100 mls/hr IVPB Q1H [facility] Rx#: [id number] Norepinephrine 16 mg In 65.390 45.823 Sodium Chloride 0.9% 250 ml @ Titrate IV .Q0M [facility] Rx#:[id number] Sodium Chloride 0.9% 500 1000 ml @ 999 mls/hr IV .Q31M [facility] Rx#:[id number] Blood Product 310 310 Rc As-1 Unit 310 [id number] Rc Pheresis 2 As3 Unit 310 [id number] Output: Urine 370 275 Other: Voiding Method Indwelling Catheter Indwelling Catheter Weight 66.67 kg 66.67 kg Patient Weight 07/13/16 06:59 Weight 66.67 kg Physical Exam HEENT:[Neck is supple.] [No neck masses.] [No thyromegaly.] [No JVD.] Chest: [Clear throughout, no crackles, no rhonchi, no wheezes.] Cardiac Exam: [Normal S1 and S2, no S3 gallop, no murmur.] Abdomen: [Soft, nontender, no megaly, no rebound, no guarding, normal bowel sounds. Ileostomy bag was noted, it is full of maroon color material.] Extremities: [No clubbing, no edema, no cyanosis.] Neurological Exam: [No focal neurologic deficit.] Results - Laboratory Findings CBC and BMP: 07/12/16 06:00 07/12/16 06:00 PT/INR, D-dimer PT 16.3 sec (9.0-12.0) H 07/11/16 19:15 INR 1.7 (<1.1) 07/11/16 19:15 Abnormal lab findings: Abnormal Labs 07/12/16 07/12/16 07/12/16 00:15 01:04 06:00 WBC 12.3 H 14.4 H RBC 2.22 L 2.93 L Hgb 7.1 L 9.3 L D Hct 21.0 L 27.6 L RDW 16.9 H 17.4 H Plt Count 100 L D 124 L Neutrophils # 11.3 H Sodium Potassium BUN Creatinine Glucose POC Glucose (mg/dL) 143 H Calcium Phosphorus Magnesium 07/12/16 06:00 WBC RBC Hgb Hct RDW Plt Count Neutrophils # Sodium 134 L Potassium 5.2 H BUN 36 H Creatinine 2.50 H Glucose 164 H POC Glucose (mg/dL) Calcium 7.0 L Phosphorus 4.7 H Magnesium 0.8 L* - Diagnostic Findings Chest x-ray: image reviewed (Chest x-ray was reviewed, no evidence of active disease) Assessment and Plan Plan: Impression: 1 acute GI bleeding from ileostomy, exact etiology is not clear, apparently her condition is beyond what Dr. Barakat and Dr. Mooney can do, and Dr. Barakat is recommending transferring the patient to [facility]. 2 acute hemorrhagic shock, doubt sepsis, however the patient was given antibiotics empirically. 3 acute anemia secondary to GI blood losses, patient is status post 3 units of packed RBC transfusion. 4 history of Crohn's disease 5 hypotension secondary to blood loss, could also be secondary to relative adrenal insufficiency since the patient is chronically on relatively high dose of prednisone, and I will go ahead and recommend stress doses of hydrocortisone empirically. Hoping to get the patient off norepinephrine. 6 multiple comorbidities including history of Crohn's disease, diabetes, hypertension, liver disease, and degenerative joint disease. Recommendation: Patient is relatively stable now for transfer, and again if Dr. Barakat feels the patient needs to be transferred to a tertiary care center, I think that should be addressed by her admitting physician and her gas brazer or surgeon at [facility]. I fully agree with discharge planning/transfer planning to [facility]. Time with Patient: Greater than 30
[2016-07-12 12:24] LABS: Anisocytosis Slight; HCT 25.4 % (34.0-46.0); HDW 3.69; HGB 8.4 gm/dL (11.4-16.0); MCH 31.5 pg (25.0-35.0); MCHC 33.1 g/dL (31.0-37.0); MCV 95.2 fL (80.0-100.0); Macrocytosis Slight; Poikilocytosis Slight; RBC 2.67 m/uL (3.80-5.40); RDW 17.5 % (11.5-15.5); WBC 9.4 k/uL (3.8-10.6)
--- NOTE | 2016-07-12 13:29 | P.HPIM ---
History of Present Illness H&P Date: 07/12/16 Chief Complaint: GI bleed This is a 60-year-old female. Her primary care physician Dr. Recinos. She has a past medical history of Crohn's status post bowel resection followed by ileostomy, hepatitis C treated with Harvoni and in remission followed by Dr. Colon, diabetes mellitus type 2, gastroesophageal reflux disease, hypertension, history of sepsis due to urinary tract infection and kidney stone and ARDS in 2007, bleeding from stoma, anxiety, septic joint and avascular necrosis of the right hip and MRSA bacteremia treated in April 2016 under the care of Dr. Thayer. She gives history of bleeding from her ileostomy that started 4-5 days ago. She states she came into the ER on 2 occasions and was sent home. She states her hemoglobin has been gradually dropping with each visit. She is on chronic prednisone at 40 mg daily for at least 10 years due to her Crohn's disease. Return to [facility] emergency center and her hemoglobin was found to be 6.3. She is status post transfusion of 3 units of packed RBCs and 1 -1/2 L of fluid in the ER for low blood pressure. She subsequently was started on norepinephrine and transferred to the intensive care unit. Urine output has been adequate. Norepinephrine is being weaned she is currently at [address] Cabezas is on consult for intensive care management, Dr. Thayer for urinary tract infection, sepsis and MRSA bacteremia, Dr. Colon for GI bleed and Dr. garcia for GI bleed. She has been started on daptomycin and echocardiogram ordered. Gastroenterology is planning for EGD and lower scope tomorrow. Review of Systems All systems: negative Constitutional: Reports fatigue, Denies chills, Denies fever Eyes: denies blurred vision, denies pain Ears, nose, mouth and throat: Denies headache, Denies sore throat Cardiovascular: Denies chest pain, Denies shortness of breath Respiratory: Denies cough Gastrointestinal: Reports melena, Denies abdominal pain, Denies diarrhea, Denies nausea, Denies vomiting Genitourinary: Denies dysuria, Denies hematuria Musculoskeletal: Denies myalgias Integumentary: Denies pruritus, Denies rash Neurological: Denies numbness, Denies weakness Psychiatric: Denies anxiety, Denies depression Endocrine: Denies fatigue, Denies weight change Past Medical History Past Medical History: Diabetes Mellitus, GERD/Reflux, Hypertension, Liver Disease, Osteoarthritis (OA) Additional Past Medical History / Comment(s): crohns, hx. hep c-currently in remission, hx. sepsis & ards 2007, has ileostomy, hx. kidney stones History of Any Multi-Drug Resistant Organisms: MRSA Date of last positivie culture/infection: 04/23/16, 04/25/16 MDRO Source:: blood,hip Past Surgical History: Appendectomy, Bowel Resection, Cholecystectomy, Hernia Repair, Hysterectomy, Tubal Ligation Additional Past Surgical History / Comment(s): ileostomy 2009 WITH 3-4 RE- SUTURING EPISODES RELATED TO BLEEDING Past Anesthesia/Blood Transfusion Reactions: No Reported Reaction Past Psychological History: Anxiety Smoking Status: Former smoker Past Alcohol Use History: None Reported Additional Past Alcohol Use History / Comment(s): quit smoking 2007, 1ppd for 30 yrs. she denies any medical marijuana, marijuana, street drug or alcohol use. She is on disability. She lives at home with her and dog. Past Drug Use History: None Reported - Past Family History Father Family Medical History: Cancer Additional Family Medical History / Comment(s): MOTHER- DIABETES Medications and Allergies Home Medications Medication Instructions Recorded Confirmed Type predniSONE 20 mg PO DAILY 11/07/13 07/11/16 History Ferrous Sulfate [Iron (65 MG 325 mg PO BID 04/23/16 07/11/16 History Elemental)] ALPRAZolam [Xanax] 0.25 mg PO HS PRN 07/06/16 07/11/16 History Codeine Sulfate 120 mg PO TID PRN 07/06/16 07/11/16 History Albuterol Sulfate [Proair Hfa] 1 - 2 puff INHALATION RT-Q6H PRN 07/11/16 History Linagliptin [Tradjenta] 5 mg PO DAILY 07/11/16 07/11/16 History Allergies Allergy/AdvReac Type Severity Reaction Status Date / Time Quinolones Allergy Severe Anaphylaxis Verified 07/11/16 21:51 adhesive tape Allergy Rash/Hives Verified 07/11/16 21:51 Iodinated Contrast Media - Allergy Unknown Verified 07/11/16 21:51 Oral and [Iodinated Contrast Media - IV Dye] Physical Exam Vitals: Vital Signs Temp Pulse Resp BP Pulse Ox 07/12/16 10:00 82 14 107/56 98 07/12/16 09:00 71 13 97/50 100 07/12/16 08:00 97.3 F L 68 13 110/49 100 07/12/16 07:00 62 12 117/54 100 07/12/16 06:00 73 16 98/49 99 07/12/16 05:00 78 12 112/52 99 07/12/16 04:00 97.8 F 83 16 101/47 100 07/12/16 03:00 90 16 95/44 99 07/12/16 02:00 98.1 F 92 16 91/46 98 07/12/16 01:07 97 07/12/16 00:44 97.6 F 98 22 86/44 100 07/12/16 00:27 98.8 F 100 20 86/49 100 07/11/16 23:59 98.7 F 98 20 82/44 100 07/11/16 23:32 98.1 F 96 16 91/46 07/11/16 22:51 97.9 F 107 H 20 75/39 07/11/16 22:45 98.6 F 112 H 22 74/37 100 Intake and Output 07/11/16 07/12/16 07/12/16 22:59 06:59 14:59 Intake Total 310 433.388 6557.823 Output Total 370 275 Balance 310 65.390 950.823 Intake: IV 60 80 .9 KVO 60 80 Intake, IV Titration 65.390 1145.823 Amount Magnesium Sulfate-D5w Pmx 100 1 gm In Dextrose/Water 1 100ml.bag @ 100 mls/hr IVPB Q1H [facility] Rx#: [id number] Norepinephrine 16 mg In 65.390 45.823 Sodium Chloride 0.9% 250 ml @ Titrate IV .Q0M [facility] Rx#:[id number] Sodium Chloride 0.9% 500 1000 ml @ 999 mls/hr IV .Q31M [facility] Rx#:[id number] Blood Product 310 310 Rc As-1 Unit 310 [id number] Rc Pheresis 2 As3 Unit 310 [id number] Output: Urine 370 275 Other: Voiding Method Indwelling Catheter Indwelling Catheter Weight 66.67 kg 66.67 kg Patient Weight 07/13/16 06:59 Weight 66.67 kg Gen: This is a 60-year-old female. She is sitting up in the ICU bed and appears to be in no acute distress while at rest. HEENT: Head is atraumatic, normocephalic. Pupils equal, round. Sclerae is anicteric. Oral mucous membranes are dry. No thrush noted. NECK: Supple. No JVD. No lymphadenopathy. No thyromegaly. LUNGS: Clear to auscultation. No wheezes or rhonchi. No intercostal retractions. HEART: Regular rate and rhythm. No murmur. ABDOMEN: Soft. Bowel sounds are present. No masses. No tenderness. Right- sided ileostomy with liquid maroon-colored stool. EXTREMITIES: No pedal edema. No calf tenderness. NEUROLOGICAL: Patient is awake, alert and oriented x3. Cranial nerves 2 through 12 are grossly intact. Results CBC & Chem 7: 07/12/16 11:55 07/12/16 06:00 Labs: Abnormal Lab Results - Last 24 Hours (Table) 07/12/16 07/12/16 07/12/16 Range/Units 00:15 01:04 06:00 WBC 12.3 H 14.4 H (3.8-10.6) k/uL RBC 2.22 L 2.93 L (3.80-5.40) m/uL Hgb 7.1 L 9.3 L D (11.4-16.0) gm/dL Hct 21.0 L 27.6 L (34.0-46.0) % RDW 16.9 H 17.4 H (11.5-15.5) % Plt Count 100 L D 124 L (150-450) k/uL Neutrophils # 11.3 H (1.3-7.7) k/uL Sodium (137-145) mmol/L Potassium (3.5-5.1) mmol/L BUN (7-17) mg/dL Creatinine (0.52-1.04) mg/dL Glucose (74-99) mg/dL POC Glucose (mg/dL) 143 H (75-99) mg/dL Calcium (8.4-10.2) mg/dL Phosphorus (2.5-4.5) mg/dL Magnesium (1.6-2.3) mg/dL 07/12/16 Range/Units 06:00 WBC (3.8-10.6) k/uL RBC (3.80-5.40) m/uL Hgb (11.4-16.0) gm/dL Hct (34.0-46.0) % RDW (11.5-15.5) % Plt Count (150-450) k/uL Neutrophils # (1.3-7.7) k/uL Sodium 134 L (137-145) mmol/L Potassium 5.2 H (3.5-5.1) mmol/L BUN 36 H (7-17) mg/dL Creatinine 2.50 H (0.52-1.04) mg/dL Glucose 164 H (74-99) mg/dL POC Glucose (mg/dL) (75-99) mg/dL Calcium 7.0 L (8.4-10.2) mg/dL Phosphorus 4.7 H (2.5-4.5) mg/dL Magnesium 0.8 L* (1.6-2.3) mg/dL Thrombosis Risk Factor Assmnt - DVT/VTE Prophylaxis DVT/VTE Prophylaxis: Mechanical Prophylaxis ordered - Choose All That Apply Any of the Below Risk Factors Present?: Yes Each Factor Represents 1 point: Age 41-60 years Other Risk Factors: No Each Risk Factor Represents 5 Points: Elective major lower extremity arthoplasty Thrombosis Risk Factor Assessment Total Risk Factor Score: 6 Thrombosis Risk Factor Assessment Level: High Risk Assessment and Plan Plan: 1. Acute GI bleed from ileostomy, general surgeon, Dr. Barakat and gastroenterology, Dr. Colon are on consult. Dr. Colon is planning for upper and lower endoscopy tomorrow. 2. Acute blood loss anemia and hypovolemic shock status post transfusion of packed RBCs and IV fluid boluses. Patient is requiring vasopressors. 3. History of right hip septic joint and avascular necrosis with sepsis, septicemia and MRSA bacteremia in April 2016 with continued MRSA bacteremia with possible septicemia and septic shock. Dr. Thayer is on consult. Patient on daptomycin. Echocardiogram ordered. 4. Acute kidney injury due to acute blood loss anemia presenting with BUN of 38 and creatinine 3.11. Baseline creatinine is around 1. Continue IV fluids, avoid hypotensive episodes, avoid nephrotoxic agents. 5. Diabetes mellitus type 2. Patient is on Tradjenta at home. Humalog scale for now. 6. Hypertension, not currently on medication. 4. Crohn's disease status post bowel resection and ileostomy, stable. Patient is normally on prednisone 40 mg daily. Currently on Solu-Cortef 100 mg IV every 8 hours. 5. Generalized anxiety disorder. Continue Xanax 0.5 mg at bedtime. 6. History of hepatitis C status post Harvoni treatment followed by rianna Hicks. 7. Gastro intestinal prophylaxis. Continue Protonix 40 mg twice daily. 8. DVT prophylaxis. SCDs and CRISTHIAN hose. 9. Anemia of chronic disease. Patient will be admitted to the hospital for a minimum of 3 night stay. Discharge plan: To be determined. Patient has been at [facility] in the past. Impression and plan of care have been directed as dictated by the signing physician. Glenis Hernandez nurse practitioner acting as scribe for signing physician. Time with Patient: Greater than 30
--- NOTE | 2016-07-12 13:37 | P.CONS ---
History of Present Illness - Reason for Consult Consult date: 07/12/16 MRSA bacteremia - History of Present Illness This is a 60-year-old female. She is well-known to ID service as she was treated during her admission April 24 - 2015, septic right hip joint and avascular necrosis and MRSA bacteremia. She was discharged to [facility] with Zyvox to complete a 6 week course. Unsure if patient had follow-up. She also has a past medical history of Crohn's status post bowel resection followed by ileostomy on chronic prednisone, hepatitis C treated with Harvoni and in remission followed by Dr. Colon, diabetes mellitus type 2, gastroesophageal reflux disease, hypertension, history of sepsis due to urinary tract infection and kidney stone and ARDS in 2007, bleeding from stoma, anxiety, She gives history of bleeding from her ileostomy that started 4-5 days ago. She states she came into the ER on 2 occasions and was sent home. She states her hemoglobin has been gradually dropping with each visit. She returned to [facility] emergency center and her hemoglobin was found to be 6.3. She is status post transfusion of 3 units of packed RBCs and 1-1/2 L of fluid in the ER for low blood pressure. She subsequently was started on norepinephrine and transferred to the intensive care unit. Urine output has been adequate. Norepinephrine is being weaned she is currently at [address] Cabezas is on consult for intensive care management, Dr. Colon for GI bleed and Dr. Barakat for GI bleed. Cultures returned positive for MRSA. She has been started on daptomycin and echocardiogram ordered. Gastroenterology is planning for EGD and lower scope tomorrow. Review of Systems All systems: negative Constitutional: Reports weakness, Denies chills, Denies fever Eyes: denies blurred vision, denies pain Ears, nose, mouth and throat: Denies headache, Denies sore throat Cardiovascular: Denies chest pain, Denies shortness of breath Respiratory: Denies cough Gastrointestinal: Reports melena, Denies abdominal pain, Denies diarrhea, Denies nausea, Denies vomiting Genitourinary: Denies dysuria, Denies hematuria Musculoskeletal: Denies myalgias Integumentary: Denies pruritus, Denies rash Neurological: Denies numbness, Denies weakness Psychiatric: Denies anxiety, Denies depression Endocrine: Denies fatigue, Denies weight change Past Medical History Past Medical History: Diabetes Mellitus, GERD/Reflux, Hypertension, Liver Disease, Osteoarthritis (OA) Additional Past Medical History / Comment(s): crohns, hx. hep c-currently in remission, hx. sepsis & ards 2007, has ileostomy, hx. kidney stones History of Any Multi-Drug Resistant Organisms: MRSA Year Discovered:: 04/23/16, 04/25/16 MDRO Source:: blood,hip Past Surgical History: Appendectomy, Bowel Resection, Cholecystectomy, Hernia Repair, Hysterectomy, Tubal Ligation Additional Past Surgical History / Comment(s): ileostomy 2009 WITH 3-4 RE- SUTURING EPISODES RELATED TO BLEEDING Past Anesthesia/Blood Transfusion Reactions: No Reported Reaction Past Psychological History: Anxiety Smoking Status: Former smoker Past Alcohol Use History: None Reported Additional Past Alcohol Use History / Comment(s): quit smoking 2007, 1ppd for 30 yrs. she denies any medical marijuana, marijuana, street drug or alcohol use. She is on disability. She lives at home with her and dog. Past Drug Use History: None Reported - Past Family History Father Family Medical History: Cancer Additional Family Medical History / Comment(s): Father at age 63 from prostate cancer. Mother Additional Family Medical History / Comment(s): Mother at age 88 from CVA. Sister(s) Additional Family Medical History / Comment(s): Patient has 3 sisters with no major medical problems. Patient does not have any brothers. Patient has 2 sons with no major medical problems. Medications and Allergies Home Medications Medication Instructions Recorded Confirmed Type predniSONE 20 mg PO DAILY 11/07/13 07/11/16 History Ferrous Sulfate [Iron (65 MG 325 mg PO BID 04/23/16 07/11/16 History Elemental)] ALPRAZolam [Xanax] 0.25 mg PO HS PRN 07/06/16 07/11/16 History Codeine Sulfate 120 mg PO TID PRN 07/06/16 07/11/16 History Albuterol Sulfate [Proair Hfa] 1 - 2 puff INHALATION RT-Q6H PRN 07/11/16 History Linagliptin [Tradjenta] 5 mg PO DAILY 07/11/16 07/11/16 History Allergies Allergy/AdvReac Type Severity Reaction Status Date / Time Quinolones Allergy Severe Anaphylaxis Verified 07/11/16 21:51 adhesive tape Allergy Rash/Hives Verified 07/11/16 21:51 Iodinated Contrast Media - Allergy Unknown Verified 07/11/16 21:51 Oral and [Iodinated Contrast Media - IV Dye] Physical Exam Vitals: Vital Signs Temp Pulse Resp BP Pulse Ox 07/12/16 10:00 82 14 107/56 98 07/12/16 09:00 71 13 97/50 100 07/12/16 08:00 97.3 F L 68 13 110/49 100 07/12/16 07:00 62 12 117/54 100 07/12/16 06:00 73 16 98/49 99 07/12/16 05:00 78 12 112/52 99 07/12/16 04:00 97.8 F 83 16 101/47 100 07/12/16 03:00 90 16 95/44 99 07/12/16 02:00 98.1 F 92 16 91/46 98 07/12/16 01:07 97 07/12/16 00:44 97.6 F 98 22 86/44 100 07/12/16 00:27 98.8 F 100 20 86/49 100 07/11/16 23:59 98.7 F 98 20 82/44 100 07/11/16 23:32 98.1 F 96 16 91/46 07/11/16 22:51 97.9 F 107 H 20 75/39 07/11/16 22:45 98.6 F 112 H 22 74/37 100 Intake and Output 07/11/16 07/12/16 07/12/16 22:59 06:59 14:59 Intake Total 310 715.497 1687.823 Output Total 370 275 Balance 310 65.390 950.823 Intake: IV 60 80 .9 KVO 60 80 Intake, IV Titration 65.390 1145.823 Amount Magnesium Sulfate-D5w Pmx 100 1 gm In Dextrose/Water 1 100ml.bag @ 100 mls/hr IVPB Q1H [facility] Rx#: [id number] Norepinephrine 16 mg In 65.390 45.823 Sodium Chloride 0.9% 250 ml @ Titrate IV .Q0M [facility] Rx#:[id number] Sodium Chloride 0.9% 500 1000 ml @ 999 mls/hr IV .Q31M [facility] Rx#:[id number] Blood Product 310 310 Rc As-1 Unit 310 [id number] Rc Pheresis 2 As3 Unit 310 [id number] Output: Urine 370 275 Other: Voiding Method Indwelling Catheter Indwelling Catheter Weight 66.67 kg 66.67 kg Patient Weight 07/13/16 06:59 Weight 66.67 kg Gen: This is a 60-year-old female. She is sitting up in the ICU bed and appears to be in no acute distress while at rest. HEENT: Head is atraumatic, normocephalic. Pupils equal, round. Sclerae is anicteric. Oral mucous membranes are dry. No thrush noted. NECK: Supple. No JVD. No lymphadenopathy. No thyromegaly. LUNGS: Clear to auscultation. No wheezes or rhonchi. No intercostal retractions. HEART: Regular rate and rhythm. No murmur. ABDOMEN: Soft. Bowel sounds are present. No masses. No tenderness. Right- sided ileostomy with liquid maroon-colored stool. EXTREMITIES: No pedal edema. No calf tenderness. NEUROLOGICAL: Patient is awake, alert and oriented x3. Cranial nerves 2 through 12 are grossly intact. Results Results: Laboratory Results WBC 9.4 k/uL (3.8-10.6) 07/12/16 11:55 RBC 2.67 m/uL (3.80-5.40) L 07/12/16 11:55 Hgb 8.4 gm/dL (11.4-16.0) L 07/12/16 11:55 Hct 25.4 % (34.0-46.0) L 07/12/16 11:55 MCV 95.2 fL (80.0-100.0) 07/12/16 11:55 MCH 31.5 pg (25.0-35.0) 07/12/16 11:55 MCHC 33.1 g/dL (31.0-37.0) 07/12/16 11:55 RDW 17.5 % (11.5-15.5) H 07/12/16 11:55 Plt Count 102 k/uL (150-450) L 07/12/16 11:55 Neutrophils % 78 % 07/12/16 06:00 Lymphocytes % 13 % 07/12/16 06:00 Monocytes % 6 % 07/12/16 06:00 Eosinophils % 1 % 07/12/16 06:00 Basophils % 0 % 07/12/16 06:00 Neutrophils # 11.3 k/uL (1.3-7.7) H 07/12/16 06:00 Lymphocytes # 1.9 k/uL (1.0-4.8) 07/12/16 06:00 Monocytes # 0.8 k/uL (0-1.0) 07/12/16 06:00 Eosinophils # 0.2 k/uL (0-0.7) 07/12/16 06:00 Basophils # 0.0 k/uL (0-0.2) 07/12/16 06:00 Poikilocytosis Slight 07/12/16 11:55 Anisocytosis Slight 07/12/16 11:55 Macrocytosis Slight 07/12/16 11:55 PT 16.3 sec (9.0-12.0) H 07/11/16 19:15 INR 1.7 (<1.1) 07/11/16 19:15 APTT 23.2 sec (22.0-30.0) 07/11/16 19:15 Sodium 134 mmol/L (137-145) L 07/12/16 06:00 Potassium 5.2 mmol/L (3.5-5.1) H 07/12/16 06:00 Chloride 104 mmol/L (98-107) 07/12/16 06:00 Carbon Dioxide 25 mmol/L (22-30) 07/12/16 06:00 Anion Gap 5 mmol/L 07/12/16 06:00 BUN 36 mg/dL (7-17) H 07/12/16 06:00 Creatinine 2.50 mg/dL (0.52-1.04) H 07/12/16 06:00 Est GFR (MDRD) Af Amer 24 (>60 ml/min/1.73 sqM) 07/12/16 06:00 Est GFR (MDRD) Non-Af 20 (>60 ml/min/1.73 sqM) 07/12/16 06:00 Glucose 164 mg/dL (74-99) H 07/12/16 06:00 POC Glucose (mg/dL) 143 mg/dL (75-99) H 07/12/16 01:04 POC Glu [employer] ID Kari Mcintyre 07/12/16 01:04 Plasma Lactic Acid Catr[place] 1.7 mmol/L (0.7-2.0) 07/12/16 00:15 Calcium 7.0 mg/dL (8.4-10.2) L 07/12/16 06:00 Phosphorus 4.7 mg/dL (2.5-4.5) H 07/12/16 06:00 Magnesium 0.8 mg/dL (1.6-2.3) L* 07/12/16 06:00 Total Bilirubin 0.9 mg/dL (0.2-1.3) 07/11/16 19:15 AST 30 U/L (14-36) 07/11/16 19:15 ALT 38 U/L (9-52) 07/11/16 19:15 Alkaline Phosphatase 46 U/L (38-126) 07/11/16 19:15 Total Creatine Kinase 30 U/L (30-135) 07/11/16 19:15 CK-MB (CK-2) 0.4 ng/mL (0.0-2.4) 07/11/16 19:15 CK-MB (CK-2) Rel Index 1.3 07/11/16 19:15 Troponin I 0.106 ng/mL (0.000-0.034) H* 07/11/16 19:15 Total Protein 5.2 g/dL (6.3-8.2) L 07/11/16 19:15 Albumin 2.7 g/dL (3.5-5.0) L 07/11/16 19:15 Urine Color Yellow 07/11/16 21:20 Urine Appearance Turbid (Clear) H 07/11/16 21:20 Urine pH 6.0 (5.0-8.0) 07/11/16 21:20 Ur Specific [place] 1.015 (1.001-1.035) 07/11/16 21:20 Urine Protein 3+ (Negative) H 07/11/16 21:20 Urine Glucose (UA) Negative (Negative) 07/11/16 21:20 Urine Ketones Negative (Negative) 07/11/16 21:20 Urine Blood Large (Negative) H 07/11/16 21:20 Urine Nitrate Negative (Negative) 07/11/16 21:20 Urine Bilirubin Negative (Negative) 07/11/16 21:20 Urine Urobilinogen <2.0 mg/dL (<2.0) 07/11/16 21:20 Ur Leukocyte Esterase Large (Negative) H 07/11/16 21:20 Urine RBC 96 /hpf (0-5) H 07/11/16 21:20 Urine WBC >182 /hpf (0-5) H 07/11/16 21:20 Urine WBC Clumps Many /hpf (None) H 07/11/16 21:20 Urine Bacteria Many /hpf (None) H 07/11/16 21:20 Influenza Type A RNA Not Detected (Not Detectd) 07/11/16 21:30 Influenza Type B (PCR) Not Detected (Not Detectd) 07/11/16 21:30 Blood Type A Positive 07/11/16 19:15 Blood Type Recheck No 07/11/16 19:15 Antibody Screen NEGATIVE 07/11/16 19:15 Crossmatch See Detail 07/11/16 19:15 Spec Expiration Date 07/14/2016231407/11/16 19:15 CBC & Chem 7: 07/12/16 11:55 07/12/16 06:00 Labs: Abnormal Lab Results - Last 24 Hours (Table) 07/12/16 07/12/16 07/12/16 Range/Units 00:15 01:04 06:00 WBC 12.3 H 14.4 H (3.8-10.6) k/uL RBC 2.22 L 2.93 L (3.80-5.40) m/uL Hgb 7.1 L 9.3 L D (11.4-16.0) gm/dL Hct 21.0 L 27.6 L (34.0-46.0) % RDW 16.9 H 17.4 H (11.5-15.5) % Plt Count 100 L D 124 L (150-450) k/uL Neutrophils # 11.3 H (1.3-7.7) k/uL Sodium (137-145) mmol/L Potassium (3.5-5.1) mmol/L BUN (7-17) mg/dL Creatinine (0.52-1.04) mg/dL Glucose (74-99) mg/dL POC Glucose (mg/dL) 143 H (75-99) mg/dL Calcium (8.4-10.2) mg/dL Phosphorus (2.5-4.5) mg/dL Magnesium (1.6-2.3) mg/dL 07/12/16 Range/Units 06:00 WBC (3.8-10.6) k/uL RBC (3.80-5.40) m/uL Hgb (11.4-16.0) gm/dL Hct (34.0-46.0) % RDW (11.5-15.5) % Plt Count (150-450) k/uL Neutrophils # (1.3-7.7) k/uL Sodium 134 L (137-145) mmol/L Potassium 5.2 H (3.5-5.1) mmol/L BUN 36 H (7-17) mg/dL Creatinine 2.50 H (0.52-1.04) mg/dL Glucose 164 H (74-99) mg/dL POC Glucose (mg/dL) (75-99) mg/dL Calcium 7.0 L (8.4-10.2) mg/dL Phosphorus 4.7 H (2.5-4.5) mg/dL Magnesium 0.8 L* (1.6-2.3) mg/dL Assessment and Plan Plan: This is a 60-year-old female who presents to the hospital with acute blood loss anemia and acute GI bleed from ileostomy along with hypovolemic shock and possible septic shock. Patient is status post transfusion of packed RBCs and IV fluid resuscitation is currently on vasopressor with norepinephrine. She is scheduled for upper and lower endoscopy for tomorrow. She does have history of right hip septic joint and avascular necrosis with sepsis septicemia and MRSA bacteremia that was treated in April 2016. Blood culture on this visit is positive for MRSA. Patient started on daptomycin. Echocardiogram ordered. Repeat blood cultures in the morning. Continue supportive care. Further recommendations as patient progresses. The above dictated assessment and findings were discussed with Dr. Thayer. The impression and plan of care have been directed as dictated. Glenis Hernandez nurse practitioner acting as scribe for Dr. Thayer. Time with Patient: Greater than 30
--- NOTE | 2016-07-12 14:26 | P.CONS ---
History of Present Illness - Reason for Consult Consult date: 07/12/16 GI bleed Requesting physician: Mahnaz Conner - History of Present Illness 60-year-old female patient Dr. Recinos with a past medical history of Crohn' s disease resulting in total proctocolectomy with ileostomy, hepatitis C; remission, liver disease, anemia, thrombocytopenia, coagulopathy, diabetes mellitus, GERD, hypertension, liver disease, MRSA, anxiety, remote nicotine cigarette dependency. Presents with blood-tinged stool from her ileostomy with anemia. Hemoglobin 6.3. Received 3 units of blood current hemoglobin 8.4. Platelet 102. INR 1.7. Receiving IV pressors. Apparently she has been having ongoing issues with bleeding around her stoma site possible variceal in origin. Transferred recently to [facility] for further evaluation of ileostomy bleeding however bleeding stopped and no intervention was performed. EGD February 2016 for ileostomy bleeding reported no evidence of peptic ulcer disease or varices no clear source of ileostomy bleeding was identified at that time. Review of Systems Constitutional: Denies fever, chills, sweats, weight gain, or loss. HEENT: Negative for migraines, blurred vision or loss, earaches, drainage, tinnitus, oral mucosal lesions, dysphagia, or odynophagia. CARDIAC: History of hypertension. Negative for chest pain, arrhythmias, or palpitation. RESPIRATORY: Negative for shortness of breath, hemoptysis, cough, or sputum production. GI: See HPI for pertinent findings. : Negative for hematuria, urgency, frequency, polyuria, or dysuria. GYNc: Denies possibility of . Negative vaginal discharge. MUSCULOSKELETAL: Osteoarthritis. NEUROLOGIC: Negative for stroke or TIA. ENDOCRINE: Diabetes mellitus. Negative for thyroid problems. SKIN: Negative for rash or itching. PSYCHIATRIC: History of anxiety. All systems: negative (See HPI) Past Medical History Past Medical History: Diabetes Mellitus, GERD/Reflux, Hypertension, Liver Disease, Osteoarthritis (OA) Additional Past Medical History / Comment(s): crohns, hx. hep c-currently in remission, hx. sepsis & ards 2007, has ileostomy, hx. kidney stones History of Any Multi-Drug Resistant Organisms: MRSA Year Discovered:: 04/23/16, 04/25/16 MDRO Source:: blood,hip Past Surgical History: Appendectomy, Bowel Resection, Cholecystectomy, Hernia Repair, Hysterectomy, Tubal Ligation Additional Past Surgical History / Comment(s): ileostomy 2009 WITH 3-4 RE- SUTURING EPISODES RELATED TO BLEEDING Past Anesthesia/Blood Transfusion Reactions: No Reported Reaction Past Psychological History: Anxiety Smoking Status: Former smoker Past Alcohol Use History: None Reported Additional Past Alcohol Use History / Comment(s): quit smoking 2007, 1ppd for 30 yrs. she denies any medical marijuana, marijuana, street drug or alcohol use. She is on disability. She lives at home with her and dog. Past Drug Use History: None Reported - Past Family History Father Family Medical History: Cancer Additional Family Medical History / Comment(s): MOTHER- DIABETES Mother Additional Family Medical History / Comment(s): Mother at age 88 from CVA. Sister(s) Additional Family Medical History / Comment(s): Patient has 3 sisters with no major medical problems. Patient does not have any brothers. Patient has 2 sons with no major medical problems. Medications and Allergies Home Medications Medication Instructions Recorded Confirmed Type predniSONE 20 mg PO DAILY 11/07/13 07/11/16 History Ferrous Sulfate [Iron (65 MG 325 mg PO BID 04/23/16 07/11/16 History Elemental)] ALPRAZolam [Xanax] 0.25 mg PO HS PRN 07/06/16 07/11/16 History Codeine Sulfate 120 mg PO TID PRN 07/06/16 07/11/16 History Albuterol Sulfate [Proair Hfa] 1 - 2 puff INHALATION RT-Q6H PRN 07/11/16 History Linagliptin [Tradjenta] 5 mg PO DAILY 07/11/16 07/11/16 History Allergies Allergy/AdvReac Type Severity Reaction Status Date / Time Quinolones Allergy Severe Anaphylaxis Verified 07/11/16 21:51 adhesive tape Allergy Rash/Hives Verified 07/11/16 21:51 Iodinated Contrast Media - Allergy Unknown Verified 07/11/16 21:51 Oral and [Iodinated Contrast Media - IV Dye] Physical Exam Vitals: Vital Signs Temp Pulse Resp BP Pulse Ox 07/12/16 12:00 84 19 131/62 100 07/12/16 11:30 76 12 110/50 100 07/12/16 11:00 78 24 97/43 100 07/12/16 10:30 81 15 96/44 100 07/12/16 10:00 82 14 107/56 98 07/12/16 09:00 71 13 97/50 100 07/12/16 08:00 97.3 F L 68 13 110/49 100 07/12/16 07:00 62 12 117/54 100 07/12/16 06:00 73 16 98/49 99 07/12/16 05:00 78 12 112/52 99 07/12/16 04:00 97.8 F 83 16 101/47 100 07/12/16 03:00 90 16 95/44 99 07/12/16 02:00 98.1 F 92 16 91/46 98 07/12/16 01:07 97 07/12/16 00:44 97.6 F 98 22 86/44 100 07/12/16 00:27 98.8 F 100 20 86/49 100 07/11/16 23:59 98.7 F 98 20 82/44 100 07/11/16 23:32 98.1 F 96 16 91/46 07/11/16 22:51 97.9 F 107 H 20 75/39 07/11/16 22:45 98.6 F 112 H 22 74/37 100 Intake and Output 07/11/16 07/12/16 07/12/16 22:59 06:59 14:59 Intake Total 310 248.384 9007.823 Output Total 370 550 Balance 310 65.390 815.823 Intake: IV 60 120 .9 KVO 60 120 Intake, IV Titration 65.390 1245.823 Amount Magnesium Sulfate-D5w Pmx 200 1 gm In Dextrose/Water 1 100ml.bag @ 100 mls/hr IVPB Q1H DARIA Rx#: [id number] Norepinephrine 16 mg In 65.390 45.823 Sodium Chloride 0.9% 250 ml @ Titrate IV .Q0M DARIA Rx#:[id number] Sodium Chloride 0.9% 500 1000 ml @ 999 mls/hr IV .Q31M ONE Rx#:[id number] Blood Product 310 310 Rc As-1 Unit 310 [id number] Rc Pheresis 2 As3 Unit 310 [id number] Output: Urine 370 400 Stool 150 Other: Voiding Method Indwelling Catheter Indwelling Catheter Weight 66.67 kg 66.67 kg Patient Weight 07/13/16 06:59 Weight 66.67 kg General appearance: The patient is alert, oriented, in no acute distress. HET: Head is normocephalic and atraumatic. Pupils are equal and reactive. Oropharynx is clear without lesions. Neck: Supple without lymphadenopathy. Trachea midline. Heart: S1 S2. Regular rate and rhythm. Lungs: No crackles or wheezes are heard. Abdomen: Soft, nontender, nondistended with bowel sounds. Ileostomy with mixed bloody brown liquid stool. Right groin IV catheter without erythema or drainage. No peritoneal signs. No palpable organomegaly or masses. Extremities: Normal skin color and turgor. No cyanosis, rash, ulceration, clubbing, or edema. Radial and pedal pulses are 2/4 bilaterally. Neurological: No focal deficits. Strength and sensation are grossly intact. Results CBC & Chem 7: 07/12/16 11:55 07/12/16 06:00 Labs: Abnormal Lab Results - Last 24 Hours (Table) 07/12/16 07/12/16 07/12/16 Range/Units 00:15 01:04 06:00 WBC 12.3 H 14.4 H (3.8-10.6) k/uL RBC 2.22 L 2.93 L (3.80-5.40) m/uL Hgb 7.1 L 9.3 L D (11.4-16.0) gm/dL Hct 21.0 L 27.6 L (34.0-46.0) % RDW 16.9 H 17.4 H (11.5-15.5) % Plt Count 100 L D 124 L (150-450) k/uL Neutrophils # 11.3 H (1.3-7.7) k/uL Sodium (137-145) mmol/L Potassium (3.5-5.1) mmol/L BUN (7-17) mg/dL Creatinine (0.52-1.04) mg/dL Glucose (74-99) mg/dL POC Glucose (mg/dL) 143 H (75-99) mg/dL Calcium (8.4-10.2) mg/dL Phosphorus (2.5-4.5) mg/dL Magnesium (1.6-2.3) mg/dL 07/12/16 07/12/16 Range/Units 06:00 11:55 WBC (3.8-10.6) k/uL RBC 2.67 L (3.80-5.40) m/uL Hgb 8.4 L (11.4-16.0) gm/dL Hct 25.4 L (34.0-46.0) % RDW 17.5 H (11.5-15.5) % Plt Count 102 L (150-450) k/uL Neutrophils # (1.3-7.7) k/uL Sodium 134 L (137-145) mmol/L Potassium 5.2 H (3.5-5.1) mmol/L BUN 36 H (7-17) mg/dL Creatinine 2.50 H (0.52-1.04) mg/dL Glucose 164 H (74-99) mg/dL POC Glucose (mg/dL) (75-99) mg/dL Calcium 7.0 L (8.4-10.2) mg/dL Phosphorus 4.7 H (2.5-4.5) mg/dL Magnesium 0.8 L* (1.6-2.3) mg/dL Assessment and Plan (1) GI bleed Narrative/Plan: 60-year-old female with a history of Crohn's disease with total proctocolectomy ileostomy presents with recurrent ileostomy bleeding suspected from her stoma possible AVM possible varices. History of chronic thrombocytopenia coagulopathy and hepatitis C with underlying liver disease. Superimposed acute on chronic anemia with acute blood loss component. Status: Acute (2) Acute blood loss anemia Status: Acute Plan: 1. Dr. Stanton discussed plan of care with patient and her at bedside. We'll proceed with EGD ileoscopy tomorrow. Continue with CBC monitoring every 6 hours transfuse as needed. GI prophylaxis. The office mail clerk has discussed the risks, benefits and alternative therapies for the above-mentioned procedure and for both sedation/analgesia as well as necessary blood product administration, if indicated, as they pertain to this patient. The patient has indicated understanding and acceptance of the risks and procedures discussed. Thank you for this kind referral and the opportunity to participate in the care of your patient. This consultation was discussed with Dr. Stanton. The impression and plan of care have been directed as dictated.
[2016-07-12 15:38] LABS: Anisocytosis Slight; Basophils % (A) 0 %; CH 31.9; CHCM 33.7; Eosinophils # (A) 0.1 k/uL (0-0.7); Eosinophils % (A) 0 %; HCT 24.3 % (34.0-46.0); HDW 3.77; Luc # (Auto) 0.07; Luc % (Auto) 1; Lymphocytes # (A) 0.5 k/uL (1.0-4.8); Lymphocytes % (A) 4 %; MCH 31.6 pg (25.0-35.0); MCV 95.7 fL (80.0-100.0); Macrocytosis Slight; Mean Platelet Volume 7.5; Monocytes # (A) 0.4 k/uL (0-1.0); Monocytes % (A) 3 %; Neutrophils # (A) 13.4 k/uL (1.3-7.7); Neutrophils % (A) 93 %; Poikilocytosis Slight; RBC 2.54 m/uL (3.80-5.40); RDW 17.7 % (11.5-15.5); WBC 14.4 k/uL (3.8-10.6); WBC (Perox) 14.66
[2016-07-12 15:58] LABS: Manual Review Performed; Polychromasia Present; Toxic Granulation Present
[2016-07-12 18:01] LABS: Glucose,Whole Blood 216 mg/dL (75-99)
[2016-07-12 18:01] LABS: Glucose,Whole Blood 213 mg/dL (75-99)
[2016-07-12] MEDS: INSULIN LISPRO (humaLOG) 300 UNIT/3 ML VIAL SQ SCH ×2 (18:01→20:31)
[2016-07-12 19:56] LABS: Hemoglobin A1C 4.9 % (4.2-6.1)
[2016-07-12 20:26] LABS: Glucose,Whole Blood 303 mg/dL (75-99)
[2016-07-12 22:18] LABS: Glucose,Whole Blood 253 mg/dL (75-99)
[2016-07-12 22:26] LABS: Anisocytosis Slight; Basophils % (A) 0 %; CHCM 34.2; Eosinophils % (A) 0 %; HCT 21.7 % (34.0-46.0); HDW 3.83; HGB 7.2 gm/dL (11.4-16.0); Luc # (Auto) 0.02; Luc % (Auto) 0; Lymphocytes # (A) 0.4 k/uL (1.0-4.8); Lymphocytes % (A) 3 %; MCH 31.3 pg (25.0-35.0); MCV 94.8 fL (80.0-100.0); Macrocytosis Slight; Monocytes # (A) 0.2 k/uL (0-1.0); Monocytes % (A) 1 %; Neutrophils # (A) 11.8 k/uL (1.3-7.7); Neutrophils % (A) 95 %; Poikilocytosis Slight; RBC 2.29 m/uL (3.80-5.40); RDW 18.3 % (11.5-15.5); WBC 12.4 k/uL (3.8-10.6); WBC (Perox) 12.88
--- NOTE | 2016-07-12 22:46 | P.CON ---
Consult Note - . Consult date: 07/12/16 Assessment/Plan:: This is a 60-year-old female. She is well-known to ID service as she was treated during her admission April 24 - 2015, septic right hip joint and avascular necrosis and MRSA bacteremia. She was discharged to [facility] with Zyvox to complete a 6 week course. Unsure if patient had follow-up. She also has a past medical history of Crohn's status post bowel resection followed by ileostomy on chronic prednisone, hepatitis C treated with Harvoni and in remission followed by Dr. Colon, diabetes mellitus type 2, gastroesophageal reflux disease, hypertension, history of sepsis due to urinary tract infection and kidney stone and ARDS in 2007, bleeding from stoma, anxiety, She gives history of bleeding from her ileostomy that started 4-5 days ago. She states she came into the ER on 2 occasions and was sent home. She states her hemoglobin has been gradually dropping with each visit. She returned to [facility] emergency center and her hemoglobin was found to be 6.3. She is status post transfusion of 3 units of packed RBCs and 1-1/2 L of fluid in the ER for low blood pressure. She subsequently was started on norepinephrine and transferred to the intensive care unit. Urine output has been adequate. Norepinephrine is being weaned she is currently at [address] Cabezas is on consult for intensive care management, Dr. Colon for GI bleed and Dr. Barakat for GI bleed. Cultures returned positive for MRSA. She has been started on daptomycin and echocardiogram ordered. Gastroenterology is planning for EGD and lower scope tomorrow. Please see the consult note as dictated by nurse practitioner Mrs. Glenis Hernandez. As the patient is evidence of chronic underlying multiple illnesses including immunosuppression from her chronic prednisone use. He developed evidence of bacteremia as well as acute gastric intestinal bleeding that was highly symptomatic. She's now had multiple transfusions is feeling better. Will have endoscopy tomorrow to evaluate the source of bleeding. Antibiotic therapy as noted is with daptomycin to limit toxicity while cultures are in process. Given her many possible cultures in the past echocardiogram is been requested to ensure there is underlying endocarditis. She is having difficulties with hypotension receiving vasopressor therapy. She Does Have Sepsis with Shock and Fortunately Responding Well to the Current Interventions. I agree with evaluation, assessment and plan as dictated by nurse practitioner Mrs. Glenis Hernandez.
[2016-07-12] MEDS: NOREPINEPHRINE 16 MG in SODIUM CHLORIDE 0.9% 250 ML IV SCH (23:45)
[2016-07-13] MEDS ORDERED: INSULIN REGULAR BOLUS (FROM DRIP BAG) IV PRN ×2 (02:28→02:34)
[2016-07-13] MEDS ORDERED: INSULIN REGULAR 100 UNIT in SODIUM CHLORIDE 0.9% 100 ML IV SCH (02:45)
[2016-07-13 03:16] LABS: Glucose,Whole Blood 180 mg/dL (75-99)
[2016-07-13] MEDS: SODIUM CHLORIDE 0.9% 1,000 ML IV SCH ×2 (03:20→17:04)
[2016-07-13 04:16] LABS: Glucose,Whole Blood 149 mg/dL (75-99)
[2016-07-13 05:14] LABS: Glucose,Whole Blood 150 mg/dL (75-99)
[2016-07-13 05:34] LABS: Anisocytosis Slight; Basophils % (A) 0 %; CH 31.5; CHCM 33.9; Eosinophils % (A) 0 %; HCT 24.6 % (34.0-46.0); HDW 3.56; HGB 8.1 gm/dL (11.4-16.0); Luc # (Auto) 0.04; Luc % (Auto) 1; Lymphocytes # (A) 0.4 k/uL (1.0-4.8); Lymphocytes % (A) 6 %; MCH 30.8 pg (25.0-35.0); MCHC 32.8 g/dL (31.0-37.0); MCV 94.1 fL (80.0-100.0); Mean Platelet Volume 8.2; Monocytes # (A) 0.3 k/uL (0-1.0); Monocytes % (A) 4 %; Neutrophils # (A) 6.7 k/uL (1.3-7.7); Neutrophils % (A) 90 %; Poikilocytosis Slight; RBC 2.61 m/uL (3.80-5.40); RDW 17.4 % (11.5-15.5); WBC 7.4 k/uL (3.8-10.6); WBC (Perox) 7.62
[2016-07-13 05:44] LABS: Phosphorous 3.4 mg/dL (2.5-4.5); Potassium 4.6 mmol/L (3.5-5.1)
[2016-07-13 06:01] LABS: Manual Review Performed
[2016-07-13 06:15] LABS: Glucose,Whole Blood 149 mg/dL (75-99)
[2016-07-13 07:01] LABS: Glucose,Whole Blood 144 mg/dL (75-99)
--- NOTE | 2016-07-13 07:18 | XR ---
EXAMINATION TYPE: XR chest 1V DATE OF EXAM: 07/13/2016 6:50 AM HISTORY: Shortness of breath. COMPARISON: 07/12/2016 TECHNIQUE: Single view of the chest is submitted. FINDINGS: Demonstrated are scattered senescent parenchymal change. There is no evidence for focal infiltrate. The heart is stable. Hilar and mediastinal structures are within normal limits. Degenerative changes are seen of the dorsal spine. IMPRESSION: 1. Chronic changes without evidence for acute pulmonary disease.
[2016-07-13 08:08] LABS: Glucose,Whole Blood 136 mg/dL (75-99)
[2016-07-13] MEDS: LACTATED RINGERS 1,000 ML IV SCH (08:21)
[2016-07-13] MEDS: HYDROCORTISONE SUCCINATE 100 MG/2 ML VIAL IV SCH ×3 (08:25→23:51)
[2016-07-13] MEDS: MAGNESIUM OXIDE 400 MG TAB PO SCH ×2 (08:25→21:21)
[2016-07-13] MEDS: PANTOPRAZOLE 40 MG/10 ML VIAL IVP SCH ×2 (08:25→21:21)
[2016-07-13 09:18] LABS: Glucose,Whole Blood 138 mg/dL (75-99)
--- NOTE | 2016-07-13 10:01 | P.PN ---
Progress Note - Text Patient remains stable. Bleeding seems to have subsided through the ileostomy. Hemoglobin is up to 8.6 after 2 units of packed cells. She is scheduled for ileoscopy EGD today and possible small bowel camera study. Examination is otherwise unchanged. Vitals are stable temperature is down abdomen is soft no tenderness. Dark brownish material in her ileostomy. Recommend further management depending on her studies today.
[2016-07-13 10:14] LABS: Glucose,Whole Blood 131 mg/dL (75-99)
[2016-07-13] MEDS ORDERED: IV FLUID CONTINUATION 1,000 ML IV ONE (10:52)
[2016-07-13] MEDS ORDERED: PROPOFOL 10 MG/ML 20 ML VIAL IV ONE (10:58)
[2016-07-13] MEDS ORDERED: MIDAZOLAM 2 MG/2 ML VIAL ONE (10:58)
[2016-07-13] MEDS ORDERED: KETAMINE 10 MG/ML 20 ML VIAL ONE (10:58)
--- NOTE | 2016-07-13 11:24 | P.PCN ---
Date of Procedure: 07/13/16 Procedure(s) Performed: Brief history: Patient is a pleasant 60-year-old white female, admitted to the hospital with leading from the ileostomy bag for the last 3 days' duration. She has history of inflammatory bowel disease. She underwent total proctocolectomy with ileostomy in 2010. She had an episode of bleeding about 6 months ago and had an upper endoscopy done by Dr. Salgado which was normal. She is now admitted to the hospital with a hemoglobin of 6.1 referring total of 3 units of RBC transfusion and the last hemoglobin was 8.5 g/dL. She has significant amount of Dr. stool in the ileostomy bag and hence she is scheduled for an upper endoscopy as well as ileoscopy today. Procedure performed: Esophagogastroduodenoscopy Ileoscopy with snare polypectomy Preoperative diagnosis: Acute GI bleed Anesthesia: MAC Procedure: After informed consent was obtained from the patient was brought into the endoscopy unit and IV conscious sedation was administered by anesthesia under continuous monitoring. Initially upper endoscopy was done. The Olympus GF 160 video endoscope was inserted inserted into the mouth and esophagus intubated without any difficulty and was gradually advanced into the stomach and duodenum and carefully examined. The bulb and second part of the duodenum appeared normal. The scope was then withdrawn into the stomach adequately insufflated with air and upon careful examination the antrum and body, cardia and fundus appeared normal. The scope was then withdrawn into the esophagus. The GE junction was located at 40 cm to the incisors. It appeared regular with no erythema erosions or ulcerations. Rest of the esophagus appeared normal. Patient tolerated the procedure well. At this time the patient continued to remain sedation. The ileostomy bag was removed. The ileostomy site appeared very friable with small amount of oozing noted on the surface. Digital examination was normal. Pediatric colonoscope was then introduced into the ileostomy and was gradually advanced up to 60 cm. Further advancement was not possible. Careful examination was performed as the scope was gradually being withdrawn. The visualized portions of the mid ileum and distal ileum appeared normal. At 10 cm from the ileostomy there was a 1 cm polyp that was removed by snare polypectomy. The mucosa at the ileostomy site appeared very friable with some granulation tissue with oozing noted. Patient tolerated the procedure well. Impression: 1. Upper endoscopy was within normal limits with no evidence of esophagitis, peptic ulcer disease or esophageal varices. 2. Ileoscopy revealed active oozing at the ileostomy site. 60 cm of the distal ileum appeared normal except for a 1 cm serrated polyp at 10 cm from the ileostomy, status post snare polypectomy. Recommendations: Findings of this examination were discussed with the patient as well as as well as her family. They should be scheduled for a small bowel capsule endoscopy to complete the workup.
--- NOTE | 2016-07-13 12:07 | ECHOF ---
Referral Reason:+blood cx, vegetation MEASUREMENTS -------- HEIGHT: 167.6 cm WEIGHT: 66.2 kg BP: 114/52 IVSd: 1.8 cm (0.6 - 1.1) LVIDd: 3.1 cm (3.9 - 5.3) LVPWd: 1.7 cm (0.6 - 1.1) IVSs: 1.8 cm LVIDs: 2.6 cm LVPWs: 1.3 cm Ao Diam: 3.2 cm (2.0 - 3.7) AV Cusp: 2.0 cm (1.5 - 2.6) LA Diam: 3.5 cm (2.7 - 3.8) MV E Rishi: 0.73 m/s MV DecT: 134 ms MV A Rishi: 1.06 m/s MV E/A Ratio: 0.69 RAP: 5.00 mmHg RVSP: 23.72 mmHg FINDINGS -------- Sinus rhythm. This was a technically difficult study with suboptimal views. There is severe concentric left ventricular hypertrophy. Overall left ventricular systolic function is normal with, an EF between 55 - 60 %. Possible LVOT Obstruction with a max gradient of 30mmHg and a mean of 12mmHg. The right ventricle is normal in size and function. The left atrium is normal in size. The right atrium is normal in size. Cannot rule out vegetation. The mitral valve leaflets are mildly thickened. There is trace mitral regurgitation. Mild tricuspid regurgitation present. The right ventricular systolic pressure, as measured by Doppler, is 23.72mmHg. Pulmonic valve appears structurally normal. The aortic root size is normal. The pericardium is normal. CONCLUSIONS -------- 1. Sinus rhythm. 2. The mitral valve leaflets are mildly thickened. 3. There is trace mitral regurgitation. 4. Mild tricuspid regurgitation present. 5. The right ventricular systolic pressure, as measured by Doppler, is 23.72mmHg. 6. Pulmonic valve appears structurally normal. 7. The aortic root size is normal. 8. The pericardium is normal. 9. This was a technically difficult study with suboptimal views. 10. There is severe concentric left ventricular hypertrophy. 11. Overall left ventricular systolic function is normal with, an EF between 55 - 60 %. 12. Possible LVOT Obstruction. 13. The right ventricle is normal in size and function. 14. The left atrium is normal in size. 15. The right atrium is normal in size. 16. Cannot rule out vegetation. COMM[employer]CIAL COLLECTIONS SPECIALIST: Sapphire Huitron RDCS
[2016-07-13 12:29] LABS: Glucose,Whole Blood 132 mg/dL (75-99)
[2016-07-13] MEDS: INSULIN LISPRO (humaLOG) 300 UNIT/3 ML VIAL SQ SCH ×3 (12:43→21:20)
--- NOTE | 2016-07-13 14:23 | P.PN ---
Subjective Principal diagnosis: Acute on chronic bleeding through ileostomy stoma This is a 60-year-old female with remote history of Crohn's disease, patient had previous proctocolectomy with ileostomy many years ago for severe intractable Crohn's disease. Over the last 2 years, the patient has been experiencing recurrent episodes of bleeding through her ileostomy. However her symptoms of bleeding have been more frequent recently. 3 weeks ago, patient was seen by Dr. Barakat in his office, and she was having significant bleeding through the ostomy stoma. Patient was sent to the emergency room, and by the time she arrived to the ER, her bleeding stopped. Patient was then transferred to [facility] and she was therefore quite some time. Bleeding resolved, and I believe the patient was scheduled to undergo ileoscopy with ultrasound. According to the this was never done. At any rate patient came into the ER last night with intermittent episodes of bleeding in the ileostomy bag. In addition to this, patient was feeling weak, tired, and upon evaluation in the ER she was hypotensive tachycardic, and her hemoglobin was noted to be 6.3. Her lactic acid was also elevated at 5.0 patient received fluid boluses, about 2 L, she also received 3 units of packed RBCs, she did require placement on norepinephrine, and she is presently on 11 g of norepinephrine. Patient was given antibiotics empirically, however she was not given stress doses of hydrocortisone patient is normally on prednisone for her Crohn disease and her dose is usually anywhere between 20-50 mg daily on a regular basis. After evaluating the patient, I recommended stress doses of hydrocortisone to be given. Patient seems to be in no form of distress, I discussed her condition with the at bedside, and I felt that if Dr. Barakat cannot handle her problems, it would be best to consider transferring the patient back to [facility]. And this will likely be arranged either by Dr. Barakat or by her admitting physician. I was the first one to see the patient in the ICU today. Patient was evaluated today on 07/13/2016, she underwent EGD and ileoscopy with snare polypectomy by Dr. Hudson, and the patient will have capsule endoscopy. Please refer to the full report and procedure report as per Dr. Hudson. Overall the patient is doing well, her hemoglobin today is 8.1, patient received a total of 4 units of packed RBCs since admission. Electrolytes were reviewed, renal profile is improving, creatinine is down to 1.70. BUN is 31. Objective - Vital Signs Vital signs: Vital Signs Temp 97.7 F 07/13/16 12:00 Pulse 78 07/13/16 13:00 Resp 14 07/13/16 13:00 BP 109/51 07/13/16 13:00 Pulse Ox 100 07/13/16 13:00 Intake & Output 07/12/16 07/13/16 07/13/16 18:59 06:59 18:59 Intake Total 1568.239 894.296 608.215 Output Total 1660 710 370 Balance -91.761 184.296 238.215 Weight 66.67 kg 71.3 kg Intake: IV 240 440 600 .9 KVO 240 140 Sodium Chloride 0.9% 1, 300 450 000 ml @ 75 mls/hr IV . [id number] [facility] Rx#:[id number] Intake, IV Titration 1328.239 94.296 8.215 Amount Insulin Regular 100 unit 5 8.215 In Sodium Chloride 0.9% 100 ml @ Per Protocol IV .Q0M [facility] Rx#:[id number] Magnesium Sulfate-D5w Pmx 200 1 gm In Dextrose/Water 1 100ml.bag @ 100 mls/hr IVPB Q1H [facility] Rx#: [id number] Norepinephrine 16 mg In 128.239 89.296 Sodium Chloride 0.9% 250 ml @ Titrate IV .Q0M [facility] Rx#:[id number] Sodium Chloride 0.9% 500 1000 ml @ 999 mls/hr IV .Q31M ONE Rx#:[id number] Oral 50 Blood Product 310 Rc As-1 Unit 310 [id number] Output: Urine 660 510 245 Stool 1000 200 125 Other: Voiding Method Indwelling Catheter Indwelling Catheter Indwelling Catheter - Exam HEENT:[Neck is supple.] [No neck masses.] [No thyromegaly.] [No JVD.] Chest: [Clear throughout, no crackles, no rhonchi, no wheezes.] Cardiac Exam: [Normal S1 and S2, no S3 gallop, no murmur.] Abdomen: [Soft, nontender, no megaly, no rebound, no guarding, normal bowel sounds. Ileostomy bag was noted, it is full of maroon color material.] Extremities: [No clubbing, no edema, no cyanosis.] Neurological Exam: [No focal neurologic deficit.] - Labs CBC & Chem 7: 07/13/16 05:10 07/13/16 05:10 Labs: Abnormal Lab Results - Last 24 Hours (Table) 07/12/16 07/12/16 07/12/16 Range/Units 15:00 17:58 18:00 WBC 14.4 H (3.8-10.6) k/uL RBC 2.54 L (3.80-5.40) m/uL Hgb 8.0 L (11.4-16.0) gm/dL Hct 24.3 L (34.0-46.0) % RDW 17.7 H (11.5-15.5) % Plt Count (150-450) k/uL Neutrophils # 13.4 H (1.3-7.7) k/uL Lymphocytes # 0.5 L (1.0-4.8) k/uL Chloride (98-107) mmol/L Carbon Dioxide (22-30) mmol/L BUN (7-17) mg/dL Creatinine (0.52-1.04) mg/dL Glucose (74-99) mg/dL POC Glucose (mg/dL) 216 H 213 H (75-99) mg/dL Calcium (8.4-10.2) mg/dL 07/12/16 07/12/16 07/12/16 Range/Units 20:24 22:17 22:20 WBC 12.4 H (3.8-10.6) k/uL RBC 2.29 L (3.80-5.40) m/uL Hgb 7.2 L (11.4-16.0) gm/dL Hct 21.7 L (34.0-46.0) % RDW 18.3 H (11.5-15.5) % Plt Count 132 L (150-450) k/uL Neutrophils # 11.8 H (1.3-7.7) k/uL Lymphocytes # 0.4 L (1.0-4.8) k/uL Chloride (98-107) mmol/L Carbon Dioxide (22-30) mmol/L BUN (7-17) mg/dL Creatinine (0.52-1.04) mg/dL Glucose (74-99) mg/dL POC Glucose (mg/dL) 303 H 253 H (75-99) mg/dL Calcium (8.4-10.2) mg/dL 07/13/16 07/13/16 07/13/16 Range/Units 03:15 04:14 05:10 WBC (3.8-10.6) k/uL RBC 2.61 L (3.80-5.40) m/uL Hgb 8.1 L (11.4-16.0) gm/dL Hct 24.6 L (34.0-46.0) % RDW 17.4 H (11.5-15.5) % Plt Count 88 L (150-450) k/uL Neutrophils # (1.3-7.7) k/uL Lymphocytes # 0.4 L (1.0-4.8) k/uL Chloride (98-107) mmol/L Carbon Dioxide (22-30) mmol/L BUN (7-17) mg/dL Creatinine (0.52-1.04) mg/dL Glucose (74-99) mg/dL POC Glucose (mg/dL) 180 H 149 H (75-99) mg/dL Calcium (8.4-10.2) mg/dL 07/13/16 07/13/16 07/13/16 Range/Units 05:10 05:12 06:14 WBC (3.8-10.6) k/uL RBC (3.80-5.40) m/uL Hgb (11.4-16.0) gm/dL Hct (34.0-46.0) % RDW (11.5-15.5) % Plt Count (150-450) k/uL Neutrophils # (1.3-7.7) k/uL Lymphocytes # (1.0-4.8) k/uL Chloride 108 H (98-107) mmol/L Carbon Dioxide 20 L (22-30) mmol/L BUN 31 H (7-17) mg/dL Creatinine 1.70 H (0.52-1.04) mg/dL Glucose 146 H (74-99) mg/dL POC Glucose (mg/dL) 150 H 149 H (75-99) mg/dL Calcium 7.0 L (8.4-10.2) mg/dL 07/13/16 07/13/16 07/13/16 Range/Units 07:00 08:07 09:16 WBC (3.8-10.6) k/uL RBC (3.80-5.40) m/uL Hgb (11.4-16.0) gm/dL Hct (34.0-46.0) % RDW (11.5-15.5) % Plt Count (150-450) k/uL Neutrophils # (1.3-7.7) k/uL Lymphocytes # (1.0-4.8) k/uL Chloride (98-107) mmol/L Carbon Dioxide (22-30) mmol/L BUN (7-17) mg/dL Creatinine (0.52-1.04) mg/dL Glucose (74-99) mg/dL POC Glucose (mg/dL) 144 H 136 H 138 H (75-99) mg/dL Calcium (8.4-10.2) mg/dL 07/13/16 07/13/16 Range/Units 10:13 12:27 WBC (3.8-10.6) k/uL RBC (3.80-5.40) m/uL Hgb (11.4-16.0) gm/dL Hct (34.0-46.0) % RDW (11.5-15.5) % Plt Count (150-450) k/uL Neutrophils # (1.3-7.7) k/uL Lymphocytes # (1.0-4.8) k/uL Chloride (98-107) mmol/L Carbon Dioxide (22-30) mmol/L BUN (7-17) mg/dL Creatinine (0.52-1.04) mg/dL Glucose (74-99) mg/dL POC Glucose (mg/dL) 131 H 132 H (75-99) mg/dL Calcium (8.4-10.2) mg/dL Microbiology - Last 24 Hours (Table) 07/12/16 13:30 Urine Culture - Preliminary Urine,Catheterized Assessment and Plan Plan: Impression: 1 acute GI bleeding from ileostomy, exact etiology is not clear, patient is status post EGD and ileoscopy as well as snare polypectomy done by Dr. Hudson on . However she is scheduling the patient for capsule endoscopy. 2 acute hemorrhagic shock, doubt sepsis, however the patient was given antibiotics empirically. Cultures are negative so far and the patient is being followed by infectious disease. 3 acute anemia secondary to GI blood losses, patient is status post 3 units of packed RBC transfusion. 4 history of Crohn's disease 5 hypotension secondary to blood loss, could also be secondary to relative adrenal insufficiency since the patient is chronically on relatively high dose of prednisone, and I will go ahead and recommend stress doses of hydrocortisone empirically. Hoping to get the patient off norepinephrine. 6 multiple comorbidities including history of Crohn's disease, diabetes, hypertension, liver disease, and degenerative joint disease. Recommendation: Continue present treatment plan, we'll monitor the patient in the ICU, and await further recommendations from gastroenterology regarding whether to transfer the patient or not. Time with Patient: Less than 30
--- NOTE | 2016-07-13 15:10 | P.PN ---
Subjective This is a 60-year-old female. Her primary care physician Dr. Recinos. She has a past medical history of Crohn's status post bowel resection followed by ileostomy, hepatitis C treated with Harvoni and in remission followed by Dr. Colon, diabetes mellitus type 2, gastroesophageal reflux disease, hypertension, history of sepsis due to urinary tract infection and kidney stone and ARDS in 2007, bleeding from stoma, anxiety, septic joint and avascular necrosis of the right hip and MRSA bacteremia treated in April 2016 under the care of Dr. Thayer. She gives history of bleeding from her ileostomy that started 4-5 days ago. She states she came into the ER on 2 occasions and was sent home. She states her hemoglobin has been gradually dropping with each visit. She is on chronic prednisone at 40 mg daily for at least 10 years due to her Crohn's disease. Return to [facility] emergency center and her hemoglobin was found to be 6.3. She is status post transfusion of 3 units of packed RBCs and 1 -1/2 L of fluid in the ER for low blood pressure. She subsequently was started on norepinephrine and transferred to the intensive care unit. Urine output has been adequate. Norepinephrine is being weaned she is currently at [address] Cabezas is on consult for intensive care management, Dr. Thayer for urinary tract infection, sepsis and MRSA bacteremia, Dr. Colon for GI bleed and Dr. garcia for GI bleed. She has been started on daptomycin and echocardiogram ordered. Gastroenterology is planning for EGD and lower scope tomorrow. 07/13: She is scheduled today for upper and lower endoscopy. Insulin drip was off and patient will be transitioned to Humalog scale only at this time due to her nothing by mouth status. Hemoglobin is stable at 8.1, platelet count has dropped from 206-88. BUN improved to 31 and creatinine 1.7. Blood cultures now showing no growth at 24 hours. Urine culture is in progress. She is off norepinephrine. Objective - Vital Signs Vital signs: Vital Signs Temp 98.1 F 07/13/16 08:00 Pulse 81 07/13/16 09:00 Resp 15 07/13/16 09:00 BP 93/48 07/13/16 09:00 Pulse Ox 100 07/13/16 09:00 Intake & Output 07/12/16 07/13/16 07/13/16 18:59 06:59 18:59 Intake Total 1568.239 894.296 233.215 Output Total 1660 710 250 Balance -91.761 184.296 -16.785 Weight 66.67 kg 71.3 kg Intake: IV 240 440 225 .9 KVO 240 140 Sodium Chloride 0.9% 1, 300 225 000 ml @ 75 mls/hr IV . [id number] [facility] Rx#:[id number] Intake, IV Titration 1328.239 94.296 8.215 Amount Insulin Regular 100 unit 5 8.215 In Sodium Chloride 0.9% 100 ml @ Per Protocol IV .Q0M [facility] Rx#:[id number] Magnesium Sulfate-D5w Pmx 200 1 gm In Dextrose/Water 1 100ml.bag @ 100 mls/hr IVPB Q1H [facility] Rx#: [id number] Norepinephrine 16 mg In 128.239 89.296 Sodium Chloride 0.9% 250 ml @ Titrate IV .Q0M [facility] Rx#:[id number] Sodium Chloride 0.9% 500 1000 ml @ 999 mls/hr IV .Q31M [facility] Rx#:[id number] Oral 50 Blood Product 310 Rc As-1 Unit 310 [id number] Output: Urine 660 510 125 Stool 1000 200 125 Other: Voiding Method Indwelling Catheter Indwelling Catheter - Exam Gen: This is a 60-year-old female. She is sitting up in the ICU bed and appears to be in no acute distress while at rest. HEENT: Head is atraumatic, normocephalic. Pupils equal, round. Sclerae is anicteric. Oral mucous membranes are dry. No thrush noted. NECK: Supple. No JVD. No lymphadenopathy. No thyromegaly. LUNGS: Clear to auscultation. No wheezes or rhonchi. No intercostal retractions. HEART: Regular rate and rhythm. No murmur. ABDOMEN: Soft. Bowel sounds are present. No masses. No tenderness. Right- sided ileostomy with liquid maroon-colored stool. EXTREMITIES: No pedal edema. No calf tenderness. NEUROLOGICAL: Patient is awake, alert and oriented x3. Cranial nerves 2 through 12 are grossly intact. - Labs CBC & Chem 7: 07/13/16 05:10 07/13/16 05:10 Labs: Abnormal Lab Results - Last 24 Hours (Table) 07/12/16 07/12/16 07/12/16 Range/Units 11:55 15:00 17:58 WBC 14.4 H (3.8-10.6) k/uL RBC 2.67 L 2.54 L (3.80-5.40) m/uL Hgb 8.4 L 8.0 L (11.4-16.0) gm/dL Hct 25.4 L 24.3 L (34.0-46.0) % RDW 17.5 H 17.7 H (11.5-15.5) % Plt Count 102 L (150-450) k/uL Neutrophils # 13.4 H (1.3-7.7) k/uL Lymphocytes # 0.5 L (1.0-4.8) k/uL Chloride (98-107) mmol/L Carbon Dioxide (22-30) mmol/L BUN (7-17) mg/dL Creatinine (0.52-1.04) mg/dL Glucose (74-99) mg/dL POC Glucose (mg/dL) 216 H (75-99) mg/dL Calcium (8.4-10.2) mg/dL 07/12/16 07/12/16 07/12/16 Range/Units 18:00 20:24 22:17 WBC (3.8-10.6) k/uL RBC (3.80-5.40) m/uL Hgb (11.4-16.0) gm/dL Hct (34.0-46.0) % RDW (11.5-15.5) % Plt Count (150-450) k/uL Neutrophils # (1.3-7.7) k/uL Lymphocytes # (1.0-4.8) k/uL Chloride (98-107) mmol/L Carbon Dioxide (22-30) mmol/L BUN (7-17) mg/dL Creatinine (0.52-1.04) mg/dL Glucose (74-99) mg/dL POC Glucose (mg/dL) 213 H 303 H 253 H (75-99) mg/dL Calcium (8.4-10.2) mg/dL 07/12/16 07/13/16 07/13/16 Range/Units 22:20 03:15 04:14 WBC 12.4 H (3.8-10.6) k/uL RBC 2.29 L (3.80-5.40) m/uL Hgb 7.2 L (11.4-16.0) gm/dL Hct 21.7 L (34.0-46.0) % RDW 18.3 H (11.5-15.5) % Plt Count 132 L (150-450) k/uL Neutrophils # 11.8 H (1.3-7.7) k/uL Lymphocytes # 0.4 L (1.0-4.8) k/uL Chloride (98-107) mmol/L Carbon Dioxide (22-30) mmol/L BUN (7-17) mg/dL Creatinine (0.52-1.04) mg/dL Glucose (74-99) mg/dL POC Glucose (mg/dL) 180 H 149 H (75-99) mg/dL Calcium (8.4-10.2) mg/dL 07/13/16 07/13/16 07/13/16 Range/Units 05:10 05:10 05:12 WBC (3.8-10.6) k/uL RBC 2.61 L (3.80-5.40) m/uL Hgb 8.1 L (11.4-16.0) gm/dL Hct 24.6 L (34.0-46.0) % RDW 17.4 H (11.5-15.5) % Plt Count 88 L (150-450) k/uL Neutrophils # (1.3-7.7) k/uL Lymphocytes # 0.4 L (1.0-4.8) k/uL Chloride 108 H (98-107) mmol/L Carbon Dioxide 20 L (22-30) mmol/L BUN 31 H (7-17) mg/dL Creatinine 1.70 H (0.52-1.04) mg/dL Glucose 146 H (74-99) mg/dL POC Glucose (mg/dL) 150 H (75-99) mg/dL Calcium 7.0 L (8.4-10.2) mg/dL 07/13/16 07/13/16 07/13/16 Range/Units 06:14 07:00 08:07 WBC (3.8-10.6) k/uL RBC (3.80-5.40) m/uL Hgb (11.4-16.0) gm/dL Hct (34.0-46.0) % RDW (11.5-15.5) % Plt Count (150-450) k/uL Neutrophils # (1.3-7.7) k/uL Lymphocytes # (1.0-4.8) k/uL Chloride (98-107) mmol/L Carbon Dioxide (22-30) mmol/L BUN (7-17) mg/dL Creatinine (0.52-1.04) mg/dL Glucose (74-99) mg/dL POC Glucose (mg/dL) 149 H 144 H 136 H (75-99) mg/dL Calcium (8.4-10.2) mg/dL 07/13/16 07/13/16 Range/Units 09:16 10:13 WBC (3.8-10.6) k/uL RBC (3.80-5.40) m/uL Hgb (11.4-16.0) gm/dL Hct (34.0-46.0) % RDW (11.5-15.5) % Plt Count (150-450) k/uL Neutrophils # (1.3-7.7) k/uL Lymphocytes # (1.0-4.8) k/uL Chloride (98-107) mmol/L Carbon Dioxide (22-30) mmol/L BUN (7-17) mg/dL Creatinine (0.52-1.04) mg/dL Glucose (74-99) mg/dL POC Glucose (mg/dL) 138 H 131 H (75-99) mg/dL Calcium (8.4-10.2) mg/dL Microbiology - Last 24 Hours (Table) 07/12/16 13:30 Urine Culture - Preliminary Urine,Catheterized Assessment and Plan Plan: 1. Acute GI bleed from ileostomy, general surgeon, Dr. Barakat and gastroenterology, Dr. Colon are on consult. Dr. Colon is planning for upper and lower endoscopy tomorrow. 2. Acute blood loss anemia and hypovolemic shock status post transfusion of packed RBCs and IV fluid boluses. Patient is requiring vasopressors. 3. History of right hip septic joint and avascular necrosis with sepsis, septicemia and MRSA bacteremia in April 2016 with continued MRSA bacteremia with possible septicemia and septic shock. Dr. Thayer is on consult. Patient on daptomycin. Echocardiogram ordered. 4. Acute kidney injury due to acute blood loss anemia presenting with BUN of 38 and creatinine 3.11. Baseline creatinine is around 1. Continue IV fluids, avoid hypotensive episodes, avoid nephrotoxic agents. 5. Diabetes mellitus type 2. Patient is on Tradjenta at home. Humalog scale for now. 6. Hypertension, not currently on medication. 4. Crohn's disease status post bowel resection and ileostomy, stable. Patient is normally on prednisone 40 mg daily. Currently on Solu-Cortef 100 mg IV every 8 hours. 5. Generalized anxiety disorder. Continue Xanax 0.5 mg at bedtime. 6. History of hepatitis C status post Harvoni treatment followed by rianna Hicks. 7. Gastro intestinal prophylaxis. Continue Protonix 40 mg twice daily. 8. DVT prophylaxis. SCDs and CRISTHIAN hose. 9. Anemia of chronic disease. Patient will be admitted to the hospital for a minimum of 3 night stay. Discharge plan: To be determined. Patient has been at [facility] in the past. Impression and plan of care have been directed as dictated by the signing physician. Glenis Hernandez nurse practitioner acting as scribe for signing physician. Time with Patient: Greater than 30
[2016-07-13 17:03] LABS: Glucose,Whole Blood 117 mg/dL (75-99)
[2016-07-13 19:52] LABS: Glucose,Whole Blood 111 mg/dL (75-99)
[2016-07-13] MEDS: ALPRAZolam 0.25 MG TAB PO PRN (21:33)
--- NOTE | 2016-07-13 23:55 | P.PN ---
Subjective Principal diagnosis: shock This is a 60-year-old female. She is well-known to ID service as she was treated during her admission April 24 - 2015, septic right hip joint and avascular necrosis and MRSA bacteremia. She was discharged to [facility] with Zyvox to complete a 6 week course. Unsure if patient had follow-up. She also has a past medical history of Crohn's status post bowel resection followed by ileostomy on chronic prednisone, hepatitis C treated with Sergio and in remission followed by Dr. Colon, diabetes mellitus type 2, gastroesophageal reflux disease, hypertension, history of sepsis due to urinary tract infection and kidney stone and ARDS in 2007, bleeding from stoma, anxiety, She gives history of bleeding from her ileostomy that started 4-5 days ago. She states she came into the ER on 2 occasions and was sent home. She states her hemoglobin has been gradually dropping with each visit. She returned to [facility] emergency center and her hemoglobin was found to be 6.3. She is status post transfusion of 3 units of packed RBCs and 1-1/2 L of fluid in the ER for low blood pressure. She subsequently was started on norepinephrine and transferred to the intensive care unit. Urine output has been adequate. Norepinephrine is being weaned she is currently at [address] Cabezas is on consult for intensive care management, Dr. Colon for GI bleed and Dr. Barakat for GI bleed. preliminary blood . it is thought that she was having acute blood loss anemia is etiology of her hypotension but with her history of multipleepisodes of bacteremia antibiotic therapy has been started Cultures returned positive for presumptive MRSA. She has been started on daptomycin Objective - Vital Signs Vital signs: Vital Signs Temp 97.8 F 07/13/16 20:00 Pulse 87 07/13/16 23:00 Resp 17 07/13/16 23:00 BP 118/52 07/13/16 23:00 Pulse Ox 100 07/13/16 23:00 Intake & Output 07/13/16 07/13/16 07/14/16 06:59 18:59 06:59 Intake Total 894.296 991.316 375 Output Total 710 570 330 Balance 184.296 421.316 45 Weight 71.3 kg 71.3 kg Intake: IV 440 975 375 .9 KVO 140 Sodium Chloride 0.9% 1, 300 825 375 000 ml @ 75 mls/hr IV . [id number] DARIA Rx#:[id number] Intake, IV Titration 94.296 16.316 Amount Insulin Regular 100 unit 5 8.215 In Sodium Chloride 0.9% 100 ml @ Per Protocol IV .Q0M DARIA Rx#:[id number] Norepinephrine 16 mg In 89.296 8.101 Sodium Chloride 0.9% 250 ml @ Titrate IV .Q0M DARIA Rx#:[id number] Oral 50 Blood Product 310 Rc As-1 Unit 310 [id number] Output: Urine 510 445 330 Stool 200 125 Other: Voiding Method Indwelling Catheter Indwelling Catheter Indwelling Catheter - Exam Gen: This is a 60-year-old female. She is sitting up in the ICU bed and appears to be in no acute distress while at rest. HEENT: Head is atraumatic, normocephalic. Pupils equal, round. Sclerae is anicteric. Oral mucous membranes are dry. No thrush noted. NECK: Supple. No JVD. No lymphadenopathy. No thyromegaly. LUNGS: Clear to auscultation. No wheezes or rhonchi. No intercostal retractions. HEART: Regular rate and rhythm. No murmur. ABDOMEN: Soft. Bowel sounds are present. No masses. No tenderness. Right- sided ileostomy with liquid maroon-colored stool. EXTREMITIES: No pedal edema. No calf tenderness. NEUROLOGICAL: Patient is awake, alert and oriented x3. - Labs CBC & Chem 7: 07/13/16 05:10 07/13/16 05:10 Labs: Abnormal Lab Results - Last 24 Hours (Table) 07/13/16 07/13/16 07/13/16 Range/Units 03:15 04:14 05:10 RBC 2.61 L (3.80-5.40) m/uL Hgb 8.1 L (11.4-16.0) gm/dL Hct 24.6 L (34.0-46.0) % RDW 17.4 H (11.5-15.5) % Plt Count 88 L (150-450) k/uL Lymphocytes # 0.4 L (1.0-4.8) k/uL Chloride (98-107) mmol/L Carbon Dioxide (22-30) mmol/L BUN (7-17) mg/dL Creatinine (0.52-1.04) mg/dL Glucose (74-99) mg/dL POC Glucose (mg/dL) 180 H 149 H (75-99) mg/dL Calcium (8.4-10.2) mg/dL 07/13/16 07/13/16 07/13/16 Range/Units 05:10 05:12 06:14 RBC (3.80-5.40) m/uL Hgb (11.4-16.0) gm/dL Hct (34.0-46.0) % RDW (11.5-15.5) % Plt Count (150-450) k/uL Lymphocytes # (1.0-4.8) k/uL Chloride 108 H (98-107) mmol/L Carbon Dioxide 20 L (22-30) mmol/L BUN 31 H (7-17) mg/dL Creatinine 1.70 H (0.52-1.04) mg/dL Glucose 146 H (74-99) mg/dL POC Glucose (mg/dL) 150 H 149 H (75-99) mg/dL Calcium 7.0 L (8.4-10.2) mg/dL 07/13/16 07/13/16 07/13/16 Range/Units 07:00 08:07 09:16 RBC (3.80-5.40) m/uL Hgb (11.4-16.0) gm/dL Hct (34.0-46.0) % RDW (11.5-15.5) % Plt Count (150-450) k/uL Lymphocytes # (1.0-4.8) k/uL Chloride (98-107) mmol/L Carbon Dioxide (22-30) mmol/L BUN (7-17) mg/dL Creatinine (0.52-1.04) mg/dL Glucose (74-99) mg/dL POC Glucose (mg/dL) 144 H 136 H 138 H (75-99) mg/dL Calcium (8.4-10.2) mg/dL 07/13/16 07/13/16 07/13/16 Range/Units 10:13 12:27 17:00 RBC (3.80-5.40) m/uL Hgb (11.4-16.0) gm/dL Hct (34.0-46.0) % RDW (11.5-15.5) % Plt Count (150-450) k/uL Lymphocytes # (1.0-4.8) k/uL Chloride (98-107) mmol/L Carbon Dioxide (22-30) mmol/L BUN (7-17) mg/dL Creatinine (0.52-1.04) mg/dL Glucose (74-99) mg/dL POC Glucose (mg/dL) 131 H 132 H 117 H (75-99) mg/dL Calcium (8.4-10.2) mg/dL 07/13/16 Range/Units 19:49 RBC (3.80-5.40) m/uL Hgb (11.4-16.0) gm/dL Hct (34.0-46.0) % RDW (11.5-15.5) % Plt Count (150-450) k/uL Lymphocytes # (1.0-4.8) k/uL Chloride (98-107) mmol/L Carbon Dioxide (22-30) mmol/L BUN (7-17) mg/dL Creatinine (0.52-1.04) mg/dL Glucose (74-99) mg/dL POC Glucose (mg/dL) 111 H (75-99) mg/dL Calcium (8.4-10.2) mg/dL Microbiology - Last 24 Hours (Table) 07/12/16 13:30 Urine Culture - Final Urine,Catheterized Laboratory Results WBC 7.4 k/uL (3.8-10.6) 07/13/16 05:10 RBC 2.61 m/uL (3.80-5.40) L 07/13/16 05:10 Hgb 8.1 gm/dL (11.4-16.0) L 07/13/16 05:10 Hct 24.6 % (34.0-46.0) L 07/13/16 05:10 MCV 94.1 fL (80.0-100.0) 07/13/16 05:10 MCH 30.8 pg (25.0-35.0) 07/13/16 05:10 MCHC 32.8 g/dL (31.0-37.0) 07/13/16 05:10 RDW 17.4 % (11.5-15.5) H 07/13/16 05:10 Plt Count 88 k/uL (150-450) L 07/13/16 05:10 Neutrophils % 90 % 07/13/16 05:10 Lymphocytes % 6 % 07/13/16 05:10 Monocytes % 4 % 07/13/16 05:10 Eosinophils % 0 % 07/13/16 05:10 Basophils % 0 % 07/13/16 05:10 Neutrophils # 6.7 k/uL (1.3-7.7) 07/13/16 05:10 Lymphocytes # 0.4 k/uL (1.0-4.8) L 07/13/16 05:10 Monocytes # 0.3 k/uL (0-1.0) 07/13/16 05:10 Eosinophils # 0.0 k/uL (0-0.7) 07/13/16 05:10 Basophils # 0.0 k/uL (0-0.2) 07/13/16 05:10 Manual Slide Review Performed 07/13/16 05:10 Toxic Granulation Present 07/12/16 15:00 Polychromasia Present 07/12/16 15:00 Poikilocytosis Slight 07/13/16 05:10 Poikilocytosis (manual Present 07/12/16 15:00 Anisocytosis Slight 07/13/16 05:10 Macrocytosis Slight 07/12/16 22:20 PT 16.3 sec (9.0-12.0) H 07/11/16 19:15 INR 1.7 (<1.1) 07/11/16 19:15 APTT 23.2 sec (22.0-30.0) 07/11/16 19:15 Sodium 138 mmol/L (137-145) 07/13/16 05:10 Potassium 4.6 mmol/L (3.5-5.1) 07/13/16 05:10 Chloride 108 mmol/L (98-107) H 07/13/16 05:10 Carbon Dioxide 20 mmol/L (22-30) L 07/13/16 05:10 Anion Gap 10 mmol/L 07/13/16 05:10 BUN 31 mg/dL (7-17) H 07/13/16 05:10 Creatinine 1.70 mg/dL (0.52-1.04) H 07/13/16 05:10 Est GFR (MDRD) Af Amer 37 (>60 ml/min/1.73 sqM) 07/13/16 05:10 Est GFR (MDRD) Non-Af 31 (>60 ml/min/1.73 sqM) 07/13/16 05:10 Glucose 146 mg/dL (74-99) H 07/13/16 05:10 POC Glucose (mg/dL) 111 mg/dL (75-99) H 07/13/16 19:49 POC Glu [employer]rentice ID Christy Snider 07/13/16 19:[address] Glu mg/dL 94 mg/dL 07/12/16 11:25 Hemoglobin A1c 4.9 % (4.2-6.1) 07/12/16 11:25 Plasma Lactic Acid [place] 1.7 mmol/L (0.7-2.0) 07/12/16 00:15 Calcium 7.0 mg/dL (8.4-10.2) L 07/13/16 05:10 Phosphorus 3.4 mg/dL (2.5-4.5) 07/13/16 05:10 Magnesium 2.0 mg/dL (1.6-2.3) 07/13/16 05:10 Total Bilirubin 0.9 mg/dL (0.2-1.3) 07/11/16 19:15 AST 30 U/L (14-36) 07/11/16 19:15 ALT 38 U/L (9-52) 07/11/16 19:15 Alkaline Phosphatase 46 U/L (38-126) 07/11/16 19:15 Total Creatine Kinase 30 U/L (30-135) 07/11/16 19:15 CK-MB (CK-2) 0.4 ng/mL (0.0-2.4) 07/11/16 19:15 CK-MB (CK-2) Rel Index 1.3 07/11/16 19:15 Troponin I 0.106 ng/mL (0.000-0.034) H* 07/11/16 19:15 Total Protein 5.2 g/dL (6.3-8.2) L 07/11/16 19:15 Albumin 2.7 g/dL (3.5-5.0) L 07/11/16 19:15 Urine Color Yellow 07/11/16 21:20 Urine Appearance Turbid (Clear) H 07/11/16 21:20 Urine pH 6.0 (5.0-8.0) 07/11/16 21:20 Ur Specific [place] 1.015 (1.001-1.035) 07/11/16 21:20 Urine Protein 3+ (Negative) H 07/11/16 21:20 Urine Glucose (UA) Negative (Negative) 07/11/16 21:20 Urine Ketones Negative (Negative) 07/11/16 21:20 Urine Blood Large (Negative) H 07/11/16 21:20 Urine Nitrate Negative (Negative) 07/11/16 21:20 Urine Bilirubin Negative (Negative) 07/11/16 21:20 Urine Urobilinogen <2.0 mg/dL (<2.0) 07/11/16 21:20 Ur Leukocyte Esterase Large (Negative) H 07/11/16 21:20 Urine RBC 96 /hpf (0-5) H 07/11/16 21:20 Urine WBC >182 /hpf (0-5) H 07/11/16 21:20 Urine WBC Clumps Many /hpf (None) H 07/11/16 21:20 Urine Bacteria Many /hpf (None) H 07/11/16 21:20 Influenza Type A RNA Not Detected (Not Detectd) 07/11/16 21:30 Influenza Type B (PCR) Not Detected (Not Detectd) 07/11/16 21:30 Blood Type A Positive 07/11/16 19:15 Blood Type Recheck No 07/11/16 19:15 Antibody Screen NEGATIVE 07/11/16 19:15 Crossmatch See Detail 07/11/16 19:15 Spec Expiration Date 07/14/2016 - 1921 07/11/16 19:15 Microbiology 07/11/16 19:15 Blood Blood Culture - Preliminary No Growth after 48 hours 07/12/16 13:30 Urine,Catheterized Urine Culture - Final Assessment and Plan (1) Acute blood loss anemia Narrative/Plan: 60-year-old woman who is a very complex past medical history including the recent difficulty with staphylococcal infection of her hip and high-grade bacteremia. This eventually improved. He now presents with evidence of shock. Concerns of sepsis with her history of multiple bouts of infection. But also to blood loss anemia is etiology of shock because of her marked bleeding from her ileostomy. She's undergone endoscopy today. She was having some bleeding at the site. Surgery has been consulted for cautery of the ileostomy to help her with her blood loss. Apparently this will be happening at our facility. The laboratory did call if possible culture and now it appears this may be corrected and were not single positive blood culture. If this is verified tomorrow the blood cultures are negative the daptomycin may be discontinued. Status: Acute (2) Sepsis Status: Acute
[2016-07-14] MEDS: CODEINE 30 MG TAB PO PRN ×2 (00:04→23:33)
[2016-07-14 05:48] LABS: Anisocytosis Slight; Basophils % (A) 0 %; CH 31.3; CHCM 33.4; Eosinophils % (A) 0 %; HCT 20.9 % (34.0-46.0); HDW 3.76; Luc # (Auto) 0.02; Luc % (Auto) 0; Lymphocytes # (A) 0.4 k/uL (1.0-4.8); Lymphocytes % (A) 7 %; MCH 31.1 pg (25.0-35.0); MCHC 32.7 g/dL (31.0-37.0); MCV 95.2 fL (80.0-100.0); Macrocytosis Slight; Mean Platelet Volume 7.8; Monocytes # (A) 0.1 k/uL (0-1.0); Monocytes % (A) 3 %; Neutrophils # (A) 4.9 k/uL (1.3-7.7); Neutrophils % (A) 90 %; Poikilocytosis Slight; RDW 18.3 % (11.5-15.5); WBC 5.5 k/uL (3.8-10.6); WBC (Perox) 6.04
[2016-07-14 05:49] LABS: HGB 6.8 gm/dL (11.4-16.0)
[2016-07-14 05:54] LABS: Magnesium 1.9 mg/dL (1.6-2.3); Phosphorous 3.6 mg/dL (2.5-4.5); Potassium 4.4 mmol/L (3.5-5.1)
[2016-07-14 07:22] LABS: Glucose,Whole Blood 109 mg/dL (75-99)
[2016-07-14] MEDS: LACTATED RINGERS 1,000 ML IV SCH (08:25)
[2016-07-14] MEDS: MAGNESIUM OXIDE 400 MG TAB PO SCH ×2 (08:25→21:24)
[2016-07-14] MEDS: SODIUM CHLORIDE 0.9% 1,000 ML IV SCH ×2 (08:25→18:29)
[2016-07-14] MEDS: INSULIN LISPRO (humaLOG) 300 UNIT/3 ML VIAL SQ SCH ×4 (08:25→21:24)
[2016-07-14] MEDS: HYDROCORTISONE SUCCINATE 100 MG/2 ML VIAL IV SCH ×3 (08:25→23:33)
[2016-07-14] MEDS: PANTOPRAZOLE 40 MG/10 ML VIAL IVP SCH ×2 (08:26→21:24)
--- NOTE | 2016-07-14 09:33 | XR ---
EXAMINATION TYPE: XR chest 1V DATE OF EXAM: 07/14/2016 6:47 AM COMPARISON: 07/13/2016 INDICATION: Short of breath TECHNIQUE: Single frontal view of the chest is obtained. FINDINGS: The heart size is normal. The pulmonary vasculature is normal. The lungs are clear. IMPRESSION: 1. No acute pulmonary process.
--- NOTE | 2016-07-14 11:08 | P.PN ---
Progress Note - Text The patient is resting comfortably in her bed. Her hemoglobin this morning 6.8. She is receiving blood. Endoscopy performed with 2 was reviewed. Patient has bleeding from her terminal ileum. On exam the patient has no significant abdominal pain. The patient will be observed. She will be managed medically with her GI bleed.
[2016-07-14 12:02] LABS: Glucose,Whole Blood 120 mg/dL (75-99)
[2016-07-14] MEDS: DAPTOmycin 500 MG in SODIUM CHLORIDE 0.9% 50 ML IV SCH (12:40)
--- NOTE | 2016-07-14 12:53 | P.PN ---
Subjective Principal diagnosis: Acute on chronic bleeding through ileostomy stoma This is a 60-year-old female with remote history of Crohn's disease, patient had previous proctocolectomy with ileostomy many years ago for severe intractable Crohn's disease. Over the last 2 years, the patient has been experiencing recurrent episodes of bleeding through her ileostomy. However her symptoms of bleeding have been more frequent recently. 3 weeks ago, patient was seen by Dr. Barakat in his office, and she was having significant bleeding through the ostomy stoma. Patient was sent to the emergency room, and by the time she arrived to the ER, her bleeding stopped. Patient was then transferred to [facility] and she was therefore quite some time. Bleeding resolved, and I believe the patient was scheduled to undergo ileoscopy with ultrasound. According to the this was never done. At any rate patient came into the ER last night with intermittent episodes of bleeding in the ileostomy bag. In addition to this, patient was feeling weak, tired, and upon evaluation in the ER she was hypotensive tachycardic, and her hemoglobin was noted to be 6.3. Her lactic acid was also elevated at 5.0 patient received fluid boluses, about 2 L, she also received 3 units of packed RBCs, she did require placement on norepinephrine, and she is presently on 11 g of norepinephrine. Patient was given antibiotics empirically, however she was not given stress doses of hydrocortisone patient is normally on prednisone for her Crohn disease and her dose is usually anywhere between 20-50 mg daily on a regular basis. After evaluating the patient, I recommended stress doses of hydrocortisone to be given. Patient seems to be in no form of distress, I discussed her condition with the at bedside, and I felt that if Dr. Barakat cannot handle her problems, it would be best to consider transferring the patient back to [facility]. And this will likely be arranged either by Dr. Barakat or by her admitting physician. I was the first one to see the patient in the ICU today. Patient was evaluated today on 07/13/2016, she underwent EGD and ileoscopy with snare polypectomy by Dr. Hudson, and the patient will have capsule endoscopy. Please refer to the full report and procedure report as per Dr. Hudson. Overall the patient is doing well, her hemoglobin today is 8.1, patient received a total of 4 units of packed RBCs since admission. Electrolytes were reviewed, renal profile is improving, creatinine is down to 1.70. BUN is 31. Patient was reevaluated today on 07/14/2016, she is doing well, however her hemoglobin drifted down again to 6.3, and she is getting a unit of packed RBC transfusion today. Final report on her capsule endoscopy is not available yet. Patient is being followed closely by gastroenterology and by general surgery. At any rate hemodynamically she is stable, considering the drop in the hemoglobin, and considering that the ostomy back continues to have some maroon color stools and it, we'll keep the patient in the ICU. Patient had received a total of 5 units of packed RBCs since admission. Basic metabolic profile was reviewed and it is normal except for creatinine of 1.30, improved since admission with fluid. Objective - Vital Signs Vital signs: Vital Signs Temp 98.3 F 07/14/16 12:22 Pulse 74 07/14/16 12:22 Resp 20 07/14/16 12:22 BP 114/55 07/14/16 12:22 Pulse Ox 100 07/14/16 12:22 Intake & Output 07/13/16 07/14/16 07/14/16 18:59 06:59 18:59 Intake Total 991.316 900 760 Output Total 570 905 373 Balance 421.316 -5 387 Weight 71.3 kg Intake: IV 975 900 450 Sodium Chloride 0.9% 1, 825 900 450 000 ml @ 75 mls/hr IV . [id number] DARIA Rx#:[id number] Intake, IV Titration 16.316 Amount Insulin Regular 100 unit 8.215 In Sodium Chloride 0.9% 100 ml @ Per Protocol IV .Q0M DARIA Rx#:[id number] Norepinephrine 16 mg In 8.101 Sodium Chloride 0.9% 250 ml @ Titrate IV .Q0M DARIA Rx#:[id number] Blood Product 310 Rc As-1 Unit 310 [id number] Output: Urine 445 805 198 Stool 125 100 175 Other: Voiding Method Indwelling Catheter Indwelling Catheter Indwelling Catheter - Exam HEENT:[Neck is supple.] [No neck masses.] [No thyromegaly.] [No JVD.] Chest: [Clear throughout, no crackles, no rhonchi, no wheezes.] Cardiac Exam: [Normal S1 and S2, no S3 gallop, no murmur.] Abdomen: [Soft, nontender, no megaly, no rebound, no guarding, normal bowel sounds. Ileostomy bag was noted, it is full of maroon color material.] Extremities: [No clubbing, no edema, no cyanosis.] Neurological Exam: [No focal neurologic deficit.] - Labs CBC & Chem 7: 07/14/16 05:24 07/14/16 05:24 Labs: Abnormal Lab Results - Last 24 Hours (Table) 07/13/16 07/13/16 07/14/16 Range/Units 17:00 19:49 05:24 RBC 2.20 L (3.80-5.40) m/uL Hgb 6.8 L* (11.4-16.0) gm/dL Hct 20.9 L (34.0-46.0) % RDW 18.3 H (11.5-15.5) % Plt Count 81 L (150-450) k/uL Lymphocytes # 0.4 L (1.0-4.8) k/uL Chloride (98-107) mmol/L BUN (7-17) mg/dL Creatinine (0.52-1.04) mg/dL Glucose (74-99) mg/dL POC Glucose (mg/dL) 117 H 111 H (75-99) mg/dL Calcium (8.4-10.2) mg/dL 07/14/16 07/14/16 07/14/16 Range/Units 05:24 07:19 12:00 RBC (3.80-5.40) m/uL Hgb (11.4-16.0) gm/dL Hct (34.0-46.0) % RDW (11.5-15.5) % Plt Count (150-450) k/uL Lymphocytes # (1.0-4.8) k/uL Chloride 111 H (98-107) mmol/L BUN 26 H (7-17) mg/dL Creatinine 1.30 H (0.52-1.04) mg/dL Glucose 109 H (74-99) mg/dL POC Glucose (mg/dL) 109 H 120 H (75-99) mg/dL Calcium 7.0 L (8.4-10.2) mg/dL Microbiology - Last 24 Hours (Table) 07/12/16 13:30 Urine Culture - Final Urine,Catheterized Assessment and Plan Plan: Impression: 1 acute GI bleeding from ileostomy, exact etiology is not clear, patient is status post EGD and ileoscopy as well as snare polypectomy done by Dr. Hudson on . Patient is status post capsule endoscopy, results of which are pending. 2 acute hemorrhagic shock, doubt sepsis, however the patient was given antibiotics empirically. Cultures are negative so far and the patient is being followed by infectious disease. Blood cultures remain negative, and urine culture is nondiagnostic. Patient has received so far a total of 5 units of packed RBCs. 3 acute anemia secondary to GI blood losses, status post 5 units of packed RBC transfusion. Total. 4 history of Crohn's disease 5 hypotension secondary to blood loss, could also be secondary to relative adrenal insufficiency since the patient is chronically on relatively high dose of prednisone, and I will go ahead and recommend stress doses of hydrocortisone empirically. Hoping to get the patient off norepinephrine. 6 multiple comorbidities including history of Crohn's disease, diabetes, hypertension, liver disease, and degenerative joint disease. Recommendation: Continue present treatment plan, we'll monitor the patient in the ICU, and await further recommendations from gastroenterology regarding whether to transfer the patient or not. Time with Patient: Less than 30
[2016-07-14 17:48] LABS: Glucose,Whole Blood 97 mg/dL (75-99)
--- NOTE | 2016-07-14 19:10 | PN ---
INTERVAL HISTORY: The patient continues to be hemodynamically stable. No major events reported overnight. The patient EGD yesterday and ( ) by Dr. Stanton who found no obvious source of bleed and recommended conservative management at this point and recommended Dr. Barakat evaluation. Patient's hemoglobin dropped to below [address] Stanton ordered 1 unit of packed red blood cells. Patient continued to be hemodynamically stable, at baseline mental status. Currently denying chest pain, shortness breath, nausea, vomiting, abdominal pain, dizziness, lightheadedness, or blurry vision. PHYSICAL EXAMINATION: Vital signs as mentioned above, ( ) stable. LUNGS: Clear to auscultation bilaterally. HEART: S1, S2. The ostomy bag seems to be with ( ) material. EXTREMITIES: Lower extremity no edema. PSYCH: Alert and oriented x3. Imaging and labs: Hemoglobin is 6.7 this morning. Other blood work, stable from prior examination. ASSESSMENT AND PLAN: 1. Acute blood loss anemia likely related to gastrointestinal varices as patient had it in the past. Patient at endoscopy capsule endoscopy study done and capsule is out, we are awaiting on the final reading by GI specialist and radiology. We will follow up with their recommendation. Continue monitoring vital signs closely. Continue with ICU setting and transfuse one unit of blood. The patient understands that if we continue not to be able to have the diagnosis, we will consider transferring her to higher level facility, but currently she seems to be at baseline mental status without compromising her condition. 2. Crohn's disease. I will continue her home regimen. 3. Generalized weakness and debility, likely related to blood loss. 4. Urinary tract infection. We will continue with treatment at this point.
[2016-07-14 21:25] LABS: Glucose,Whole Blood 150 mg/dL (75-99)
[2016-07-14] MEDS: ALPRAZolam 0.25 MG TAB PO PRN (23:32)
[2016-07-15 05:30] LABS: Anisocytosis Slight; Basophils % (A) 0 %; CH 30.9; CHCM 33.5; Eosinophils % (A) 1 %; HGB 8.1 gm/dL (11.4-16.0); Luc # (Auto) 0.01; Luc % (Auto) 0; Lymphocytes # (A) 0.5 k/uL (1.0-4.8); Lymphocytes % (A) 10 %; MCH 30.4 pg (25.0-35.0); MCHC 32.5 g/dL (31.0-37.0); MCV 93.6 fL (80.0-100.0); Macrocytosis Slight; Monocytes # (A) 0.3 k/uL (0-1.0); Monocytes % (A) 5 %; Neutrophils # (A) 4.2 k/uL (1.3-7.7); Neutrophils % (A) 85 %; Poikilocytosis Slight; RBC 2.67 m/uL (3.80-5.40); WBC (Perox) 5.31
[2016-07-15 05:50] LABS: Anion Gap 4 mmol/L; Blood Urea Nitrogen 25 mg/dL (7-17); Carbon Dioxide 23 mmol/L (22-30); Chloride 112 mmol/L (98-107); Glucose 114 mg/dL (74-99); Magnesium 1.8 mg/dL (1.6-2.3); Non-African American GFR(MDRD) 51 (>60 ml/min/1.73 sqM); Phosphorous 3.3 mg/dL (2.5-4.5); Potassium 4.6 mmol/L (3.5-5.1); Sodium 139 mmol/L (137-145)
[2016-07-15 07:38] LABS: Glucose,Whole Blood 104 mg/dL (75-99)
[2016-07-15] MEDS: INSULIN LISPRO (humaLOG) 300 UNIT/3 ML VIAL SQ SCH ×4 (07:40→23:07)
[2016-07-15] MEDS: SODIUM CHLORIDE 0.9% 1,000 ML IV SCH ×2 (07:40→11:58)
[2016-07-15] MEDS: HYDROCORTISONE SUCCINATE 100 MG/2 ML VIAL IV SCH ×2 (07:41→18:31)
[2016-07-15] MEDS: MAGNESIUM OXIDE 400 MG TAB PO SCH ×2 (07:51→22:51)
[2016-07-15] MEDS: PANTOPRAZOLE 40 MG/10 ML VIAL IVP SCH ×2 (07:51→22:50)
--- NOTE | 2016-07-15 08:15 | XR ---
EXAMINATION TYPE: XR chest 1V DATE OF EXAM: 07/15/2016 6:48 AM COMPARISON: 07/14/2016 INDICATION: Short of breath TECHNIQUE: Single frontal view of the chest is obtained. FINDINGS: The heart size is normal. The pulmonary vasculature is normal. The lungs are clear. IMPRESSION: 1. No acute pulmonary process.
--- NOTE | 2016-07-15 10:13 | P.PN ---
Progress Note - Text The patient is resting comfortably her bed. She states she's had no further GI bleed. Hemoglobin is in the 9 range On exam her vital signs are stable. Her abdomen soft. There is no blood in her ileostomy. Resolving GI bleed. Patient was transferred to the surgical floor today.
--- NOTE | 2016-07-15 12:20 | P.PN ---
Subjective Principal diagnosis: Acute on chronic bleeding through ileostomy stoma This is a 60-year-old female with remote history of Crohn's disease, patient had previous proctocolectomy with ileostomy many years ago for severe intractable Crohn's disease. Over the last 2 years, the patient has been experiencing recurrent episodes of bleeding through her ileostomy. However her symptoms of bleeding have been more frequent recently. 3 weeks ago, patient was seen by Dr. Barakat in his office, and she was having significant bleeding through the ostomy stoma. Patient was sent to the emergency room, and by the time she arrived to the ER, her bleeding stopped. Patient was then transferred to [facility] and she was therefore quite some time. Bleeding resolved, and I believe the patient was scheduled to undergo ileoscopy with ultrasound. According to the this was never done. At any rate patient came into the ER last night with intermittent episodes of bleeding in the ileostomy bag. In addition to this, patient was feeling weak, tired, and upon evaluation in the ER she was hypotensive tachycardic, and her hemoglobin was noted to be 6.3. Her lactic acid was also elevated at 5.0 patient received fluid boluses, about 2 L, she also received 3 units of packed RBCs, she did require placement on norepinephrine, and she is presently on 11 g of norepinephrine. Patient was given antibiotics empirically, however she was not given stress doses of hydrocortisone patient is normally on prednisone for her Crohn disease and her dose is usually anywhere between 20-50 mg daily on a regular basis. After evaluating the patient, I recommended stress doses of hydrocortisone to be given. Patient seems to be in no form of distress, I discussed her condition with the at bedside, and I felt that if Dr. Barakat cannot handle her problems, it would be best to consider transferring the patient back to [facility]. And this will likely be arranged either by Dr. Barakat or by her admitting physician. I was the first one to see the patient in the ICU today. Patient was evaluated today on 07/13/2016, she underwent EGD and ileoscopy with snare polypectomy by Dr. Hudson, and the patient will have capsule endoscopy. Please refer to the full report and procedure report as per Dr. Hudson. Overall the patient is doing well, her hemoglobin today is 8.1, patient received a total of 4 units of packed RBCs since admission. Electrolytes were reviewed, renal profile is improving, creatinine is down to 1.70. BUN is 31. Patient was reevaluated today on 07/14/2016, she is doing well, however her hemoglobin drifted down again to 6.3, and she is getting a unit of packed RBC transfusion today. Final report on her capsule endoscopy is not available yet. Patient is being followed closely by gastroenterology and by general surgery. At any rate hemodynamically she is stable, considering the drop in the hemoglobin, and considering that the ostomy back continues to have some maroon color stools and it, we'll keep the patient in the ICU. Patient had received a total of 5 units of packed RBCs since admission. Basic metabolic profile was reviewed and it is normal except for creatinine of 1.30, improved since admission with fluid. Patient was reevaluated today on 07/15/2016, doing quite well, no active bleeding noted in the last 24 hours, hemoglobin today is 8.1. Patient again received a total of 5 units of packed RBCs since admission. The rest of the labs are unremarkable, clinically the patient is doing well, and should be transferred out of the ICU to a medical floor. Objective - Vital Signs Vital signs: Vital Signs Temp 97.4 F L 07/15/16 12:07 Pulse 75 07/15/16 12:07 Resp 20 07/15/16 12:07 BP 142/72 07/15/16 12:07 Pulse Ox 100 07/15/16 12:07 Intake & Output 07/14/16 07/15/16 07/15/16 18:59 06:59 18:59 Intake Total 1600 1695 150 Output Total 923 1175 60 Balance 677 520 90 Weight 70.6 kg 68.3 kg Intake: IV 865 975 150 Sodium Chloride 0.9% 1, 865 975 150 000 ml @ 75 mls/hr IV . [id number] [facility] Rx#:[id number] Intake, IV Titration 50 Amount DAPTOmycin 500 mg In 50 Sodium Chloride 0.9% 50 ml @ 100 mls/hr IV Q48H [facility] Rx#:[id number] Oral 375 720 Blood Product 310 Rc As-1 Unit 310 [id number] Output: Urine 748 700 60 Stool 175 475 Other: Voiding Method Indwelling Catheter Indwelling Catheter Indwelling Catheter - Exam HEENT:[Neck is supple.] [No neck masses.] [No thyromegaly.] [No JVD.] Chest: [Clear throughout, no crackles, no rhonchi, no wheezes.] Cardiac Exam: [Normal S1 and S2, no S3 gallop, no murmur.] Abdomen: [Soft, nontender, no megaly, no rebound, no guarding, normal bowel sounds. Ileostomy bag was noted, it is full of maroon color material.] Extremities: [No clubbing, no edema, no cyanosis.] Neurological Exam: [No focal neurologic deficit.] - Labs CBC & Chem 7: 07/15/16 05:25 07/15/16 05:25 Labs: Abnormal Lab Results - Last 24 Hours (Table) 07/14/16 07/15/16 07/15/16 Range/Units 21:23 05:25 05:25 RBC 2.67 L (3.80-5.40) m/uL Hgb 8.1 L (11.4-16.0) gm/dL Hct 25.0 L (34.0-46.0) % RDW 18.0 H (11.5-15.5) % Plt Count 84 L (150-450) k/uL Lymphocytes # 0.5 L (1.0-4.8) k/uL Chloride 112 H (98-107) mmol/L BUN 25 H (7-17) mg/dL Creatinine 1.10 H (0.52-1.04) mg/dL Glucose 114 H (74-99) mg/dL POC Glucose (mg/dL) 150 H (75-99) mg/dL Calcium 7.0 L (8.4-10.2) mg/dL 07/15/16 Range/Units 07:36 RBC (3.80-5.40) m/uL Hgb (11.4-16.0) gm/dL Hct (34.0-46.0) % RDW (11.5-15.5) % Plt Count (150-450) k/uL Lymphocytes # (1.0-4.8) k/uL Chloride (98-107) mmol/L BUN (7-17) mg/dL Creatinine (0.52-1.04) mg/dL Glucose (74-99) mg/dL POC Glucose (mg/dL) 104 H (75-99) mg/dL Calcium (8.4-10.2) mg/dL Assessment and Plan Plan: Impression: 1 acute GI bleeding from ileostomy, exact etiology is not clear, patient is status post EGD and ileoscopy as well as snare polypectomy done by Dr. Hudson on . Patient is status post capsule endoscopy, results of which are pending. 2 acute hemorrhagic shock, doubt sepsis, however the patient was given antibiotics empirically. Cultures are negative so far and the patient is being followed by infectious disease. Blood cultures remain negative, and urine culture is nondiagnostic. Patient has received so far a total of 5 units of packed RBCs. 3 acute anemia secondary to GI blood losses, status post 5 units of packed RBC transfusion. Total. 4 history of Crohn's disease 5 hypotension secondary to blood loss, could also be secondary to relative adrenal insufficiency since the patient is chronically on relatively high dose of prednisone, and I will go ahead and recommend stress doses of hydrocortisone empirically. Hoping to get the patient off norepinephrine. 6 multiple comorbidities including history of Crohn's disease, diabetes, hypertension, liver disease, and degenerative joint disease. Recommendation: Continue present treatment plan, can transfer patient out of the ICU today to a regular medical floor. And will continue to follow. Time with Patient: Less than 30
[2016-07-15 13:11] LABS: Glucose,Whole Blood 135 mg/dL (75-99)
[2016-07-15 17:50] LABS: Glucose,Whole Blood 126 mg/dL (75-99)
[2016-07-15 22:14] LABS: Glucose,Whole Blood 101 mg/dL (75-99)
--- NOTE | 2016-07-15 22:15 | PN ---
DATE OF SERVICE: INTERVAL HISTORY: The patient continues to be hemodynamically stable. ( ) reported by nursing staff. The patient currently denying chest pain, shortness breath, nausea, vomiting, abdominal pain, dizziness, lightheadedness, blurry vision. Physical examination reveals stable vital signs. LUNGS: Clear to auscultation bilaterally. HEART: S1, S2. ABDOMEN: Soft. No tenderness, ( ) ostomy bag in place with no obvious bleeding on the site but ostomy bag is filled with bloody material. Patient reported ( ). ( ) no edema. EXTREMITIES: Lower extremities no edema. NEUROLOGICAL: No focal deficits. Psychiatry: Alert and oriented x3. Imaging and labs: CBC revealed ( ) hemoglobin slight improvement at 8.1, platelets 84, Chem-7 revealed stable findings with creatinine 1.1, and glucose 114. ASSESSMENT AND PLAN: 1. Acute gastrointestinal from ileostomy. 2. History of varices diagnosed at [facility] in the past. 3. Status post esophagogastroduodenoscopy and ostomy scope by Dr. Stanton on July 13, 2016. 4. Status post cancelled endoscopy with pending results. 5. Symptomatic anemia. 6. Crohn's disease. 7. Hypotension, resolved. 8. PLAN: I would like to continue ( ) vital signs closely. Continue cardiac monitoring. Transfer the patient to general medical floor when bed is available. The patient is becoming more hemodynamically stable over the last 24 to 48 hours without any decline in her condition. 9. I would like her to follow up with Dr. Stanton recommendations regarding her capsule endoscopy study and follow up with her recommendation. 10. The patient may benefit from transferring to [facility] to be seen by her primary ( ) specialist and primary GI specialist if the study here turns to be negative or if the patient needs any surgical intervention as she is well known to ( ) over there. Patient and are agreeable to the treatment plan and will follow up with Dr. Stanton's recommendations. 11. Prognosis is still guarded.
[2016-07-15] MEDS: CODEINE 30 MG TAB PO PRN (23:12)
[2016-07-16] MEDS: SODIUM CHLORIDE 0.9% 1,000 ML IV SCH ×2 (00:18→13:46)
[2016-07-16] MEDS: HYDROCORTISONE SUCCINATE 100 MG/2 ML VIAL IV SCH ×3 (00:20→16:46)
[2016-07-16 07:36] LABS: Anisocytosis Slight; Basophils % (A) 0 %; CH 30.6; Eosinophils % (A) 0 %; HCT 24.4 % (34.0-46.0); HDW 3.68; Hypochromasia Slight; Luc # (Auto) 0.03; Luc % (Auto) 1; Lymphocytes # (A) 0.4 k/uL (1.0-4.8); Lymphocytes % (A) 9 %; MCH 30.8 pg (25.0-35.0); MCHC 32.8 g/dL (31.0-37.0); MCV 93.8 fL (80.0-100.0); Mean Platelet Volume 8.2; Monocytes # (A) 0.2 k/uL (0-1.0); Monocytes % (A) 6 %; Neutrophils # (A) 3.7 k/uL (1.3-7.7); Neutrophils % (A) 84 %; Poikilocytosis Slight; RBC 2.59 m/uL (3.80-5.40); RDW 17.5 % (11.5-15.5); WBC 4.3 k/uL (3.8-10.6)
[2016-07-16 07:58] LABS: Anion Gap 9 mmol/L; Blood Urea Nitrogen 24 mg/dL (7-17); Carbon Dioxide 20 mmol/L (22-30); Chloride 113 mmol/L (98-107); Glucose 84 mg/dL (74-99); Magnesium 1.6 mg/dL (1.6-2.3); Non-African American GFR(MDRD) 53 (>60 ml/min/1.73 sqM); Phosphorous 3.4 mg/dL (2.5-4.5); Sodium 142 mmol/L (137-145)
[2016-07-16 08:02] LABS: Glucose,Whole Blood 85 mg/dL (75-99)
[2016-07-16] MEDS: INSULIN LISPRO (humaLOG) 300 UNIT/3 ML VIAL SQ SCH ×4 (08:04→21:32)
[2016-07-16] MEDS: MAGNESIUM OXIDE 400 MG TAB PO SCH ×2 (09:32→21:30)
[2016-07-16] MEDS: PANTOPRAZOLE 40 MG/10 ML VIAL IVP SCH ×2 (09:34→22:04)
[2016-07-16 11:45] LABS: Glucose,Whole Blood 80 mg/dL (75-99)
[2016-07-16] MEDS: DAPTOmycin 500 MG in SODIUM CHLORIDE 0.9% 50 ML IV SCH (12:36)
[2016-07-16] MEDS: ALPRAZolam 0.25 MG TAB PO PRN (12:38)
--- NOTE | 2016-07-16 12:43 | P.PN ---
Progress Note - Text The patient is hemodynamically stable. Has had intermittent bleeding through the stoma. Endoscopy through the stoma into the ileum revealed what looked like some inflammatory changes close to the stoma which was the only abnormality found. She completed her camera small bowel study results are pending. On examination the patient is awake alert and cheerful in no distress vitals are stable. Abdomen is soft. Stoma looks healthy. No active bleeding at this time. She did receive up at least a 5 units of packed cells since admission. Not sure as to the source of the bleeding. If no other abnormalities found may consider undergoing gas coagulation off the affected area close to the stoma. End of dictation
--- NOTE | 2016-07-16 15:41 | P.PN ---
Subjective This is a 60-year-old female. Her primary care physician Dr. Recinos. She has a past medical history of Crohn's status post bowel resection followed by ileostomy, hepatitis C treated with Harvoni and in remission followed by Dr. Colon, diabetes mellitus type 2, gastroesophageal reflux disease, hypertension, history of sepsis due to urinary tract infection and kidney stone and ARDS in 2007, bleeding from stoma, anxiety, septic joint and avascular necrosis of the right hip and MRSA bacteremia treated in April 2016 under the care of Dr. Thayer. She gives history of bleeding from her ileostomy that started 4-5 days ago. She states she came into the ER on 2 occasions and was sent home. She states her hemoglobin has been gradually dropping with each visit. She is on chronic prednisone at 40 mg daily for at least 10 years due to her Crohn's disease. Return to [facility] emergency center and her hemoglobin was found to be 6.3. She is status post transfusion of 3 units of packed RBCs and 1 -1/2 L of fluid in the ER for low blood pressure. She subsequently was started on norepinephrine and transferred to the intensive care unit. Urine output has been adequate. Norepinephrine is being weaned she is currently at [address] Cabezas is on consult for intensive care management, Dr. Thayer for urinary tract infection, sepsis and MRSA bacteremia, Dr. Colon for GI bleed and Dr. garcia for GI bleed. She has been started on daptomycin and echocardiogram ordered. Gastroenterology is planning for EGD and lower scope tomorrow. 07/13: She is scheduled today for upper and lower endoscopy. Insulin drip was off and patient will be transitioned to Humalog scale only at this time due to her nothing by mouth status. Hemoglobin is stable at 8.1, platelet count has dropped from 206-88. BUN improved to 31 and creatinine 1.7. Blood cultures now showing no growth at 24 hours. Urine culture is in progress. She is off norepinephrine. 07/16: Patient is now seen on the pediatric unit. She has been hemodynamically stable. She continues to have intermittent bleeding from her stoma especially with minimal activity. She states then she feels lightheaded. She has received a total of [address] Barakat to talk to Dr. Hudson did advise plan from here. Repeat chest x-ray shows no acute pulmonary process. She is status post EGD and ileoscopy with snare polypectomy performed on July [address] Hudson. Upper endoscopy was within normal limits no evidence of esophagitis, peptic ulcer disease or esophageal varices. Ileoscopy revealed active oozing at the ileostomy site. 60 cm of the distal ileum appeared normal except for 1 cm serrated polyp at 10 cm from the ileostomy status post snare polypectomy. Recommendations at that time were for small bowel capsule endoscopy. Hemoglobin today is 8.0. BUN 24 and creatinine 1.07. Echocardiogram reveals trace mitral regurgitation, mild tricuspid regurgitation , severe concentric left ventricle hypertrophy, EF 55-60%, cannot rule out vegetation. Blood culture is negative at 96 hours and daptomycin will be discontinued. Objective - Vital Signs Vital signs: Vital Signs Temp 98.0 F 07/16/16 12:02 Pulse 63 07/16/16 12:02 Resp 16 07/16/16 12:02 BP 161/85 07/16/16 12:02 Pulse Ox 100 07/16/16 12:02 Intake & Output 07/15/16 07/16/16 07/16/16 18:59 06:59 18:59 Intake Total 470 850 300 Output Total 60 600 850 Balance 410 250 -550 Intake: IV 150 Sodium Chloride 0.9% 1, 150 000 ml @ 75 mls/hr IV . [id number] [facility] Rx#:[id number] Oral 320 850 300 Output: Urine 60 350 650 Stool 250 200 Other: Voiding Method Indwelling Catheter Bedpan - Exam Gen: This is a 60-year-old female. She is sitting up in bed and appears to be in no acute distress while at rest. HEENT: Head is atraumatic, normocephalic. Pupils equal, round. Sclerae is anicteric. Oral mucous membranes are dry. No thrush noted. NECK: Supple. No JVD. No lymphadenopathy. No thyromegaly. LUNGS: Clear to auscultation. No wheezes or rhonchi. No intercostal retractions. HEART: Regular rate and rhythm. No murmur. ABDOMEN: Soft. Bowel sounds are present. No masses. No tenderness. Right- sided ileostomy with no active bleeding. EXTREMITIES: No pedal edema. No calf tenderness. NEUROLOGICAL: Patient is awake, alert and oriented x3. Cranial nerves 2 through 12 are grossly intact. - Labs CBC & Chem 7: 07/16/16 06:42 07/16/16 06:42 Labs: Abnormal Lab Results - Last 24 Hours (Table) 07/15/16 07/15/16 07/16/16 Range/Units 17:47 22:03 06:42 RBC 2.59 L (3.80-5.40) m/uL Hgb 8.0 L (11.4-16.0) gm/dL Hct 24.4 L (34.0-46.0) % RDW 17.5 H (11.5-15.5) % Plt Count 87 L (150-450) k/uL Lymphocytes # 0.4 L (1.0-4.8) k/uL Chloride (98-107) mmol/L Carbon Dioxide (22-30) mmol/L BUN (7-17) mg/dL Creatinine (0.52-1.04) mg/dL POC Glucose (mg/dL) 126 H 101 H (75-99) mg/dL Calcium (8.4-10.2) mg/dL 07/16/16 Range/Units 06:42 RBC (3.80-5.40) m/uL Hgb (11.4-16.0) gm/dL Hct (34.0-46.0) % RDW (11.5-15.5) % Plt Count (150-450) k/uL Lymphocytes # (1.0-4.8) k/uL Chloride 113 H (98-107) mmol/L Carbon Dioxide 20 L (22-30) mmol/L BUN 24 H (7-17) mg/dL Creatinine 1.07 H (0.52-1.04) mg/dL POC Glucose (mg/dL) (75-99) mg/dL Calcium 7.0 L (8.4-10.2) mg/dL Assessment and Plan Plan: 1. Acute GI bleed from ileostomy, general surgeon, Dr. Barakat and gastroenterology, Dr. Stanton are on consult. Upper and lower endoscopy as above. 2. Acute blood loss anemia and hypovolemic shock status post transfusion of packed RBCs and IV fluid boluses. Patient is off vasopressors. 3. History of right hip septic joint and avascular necrosis with sepsis, septicemia and MRSA bacteremia in April 2016 with negative repeat blood cultures. Dr. Thayer is on consult. Daptomycin will be discontinued. Echocardiogram as above. 4. Acute kidney injury due to acute blood loss anemia presenting with BUN of 38 and creatinine 3.11. Baseline creatinine is around 1. Stable. 5. Diabetes mellitus type 2. Patient is on Tradjenta at home. Humalog scale for now. 6. Hypertension, not currently on medication. 4. Crohn's disease status post bowel resection and ileostomy, stable. Patient is normally on prednisone 40 mg daily. Currently on Solu-Cortef 100 mg IV every 8 hours. 5. Generalized anxiety disorder. Continue Xanax 0.5 mg at bedtime. 6. History of hepatitis C status post Harvoni treatment followed by rianna Hicks. 7. Gastro intestinal prophylaxis. Continue Protonix 40 mg twice daily. 8. DVT prophylaxis. SCDs and CRISTHIAN hose. 9. Anemia of chronic disease. Discharge plan: Return home with homecare Impression and plan of care have been directed as dictated by the signing physician. Glenis Hernandez nurse practitioner acting as scribe for signing physician. Time with Patient: Greater than 30
[2016-07-16 17:04] LABS: Glucose,Whole Blood 143 mg/dL (75-99)
--- NOTE | 2016-07-16 18:30 | P.PN ---
Subjective Principal diagnosis: shock This is a 60-year-old female. She is well-known to ID service as she was treated during her admission April 24 - 2015, septic right hip joint and avascular necrosis and MRSA bacteremia. She was discharged to [facility] with Zyvox to complete a 6 week course. Unsure if patient had follow-up. She also has a past medical history of Crohn's status post bowel resection followed by ileostomy on chronic prednisone, hepatitis C treated with Sergio and in remission followed by Dr. Colon, diabetes mellitus type 2, gastroesophageal reflux disease, hypertension, history of sepsis due to urinary tract infection and kidney stone and ARDS in 2007, bleeding from stoma, anxiety, She gives history of bleeding from her ileostomy that started 4-5 days ago. She states she came into the ER on 2 occasions and was sent home. She states her hemoglobin has been gradually dropping with each visit. She returned to [facility] emergency center and her hemoglobin was found to be 6.3. She is status post transfusion of 3 units of packed RBCs and 1-1/2 L of fluid in the ER for low blood pressure. She subsequently was started on norepinephrine and transferred to the intensive care unit. Urine output has been adequate. Norepinephrine is being weaned she is currently at [address] Cabezas is on consult for intensive care management, Dr. Colon for GI bleed and Dr. Barakat for GI bleed. preliminary blood cultures are negative it is thought that she was having acute blood loss anemia is etiology of her hypotension but with her history of multiple episodes of bacteremia antibiotic therapy has been started Cultures are negative so far. He has been treated with daptomycin with concerns to her prior history of staphylococcal sepsis. Objective - Vital Signs Vital signs: Vital Signs Temp 98.5 F 07/16/16 16:23 Pulse 69 07/16/16 16:23 Resp 24 07/16/16 16:23 BP 144/60 07/16/16 16:23 Pulse Ox 98 07/16/16 16:23 Intake & Output 07/15/16 07/16/16 07/16/16 18:59 06:59 18:59 Intake Total 470 850 300 Output Total 60 600 850 Balance 410 250 -550 Intake: IV 150 Sodium Chloride 0.9% 1, 150 000 ml @ 75 mls/hr IV . [id number] [facility] Rx#:[id number] Oral 320 850 300 Output: Urine 60 350 650 Stool 250 200 Other: Voiding Method Indwelling Catheter Bedpan - Exam Gen: This is a 60-year-old female. She is sitting up in the ICU bed and appears to be in no acute distress while at rest. HEENT: Head is atraumatic, normocephalic. Pupils equal, round. Sclerae is anicteric. Oral mucous membranes are dry. No thrush noted. NECK: Supple. No JVD. No lymphadenopathy. No thyromegaly. LUNGS: Clear to auscultation. No wheezes or rhonchi. No intercostal retractions. HEART: Regular rate and rhythm. No murmur. ABDOMEN: Soft. Bowel sounds are present. No masses. No tenderness. Right- sided ileostomy with liquid stool without evidence of active bleeding at this time. However earlier when she stood up she did have some bleeding from the ostomy again. EXTREMITIES: No pedal edema. No calf tenderness. NEUROLOGICAL: Patient is awake, alert and oriented x3. - Labs CBC & Chem 7: 07/16/16 06:42 07/16/16 06:42 Labs: Abnormal Lab Results - Last 24 Hours (Table) 07/15/16 07/16/16 07/16/16 Range/Units 22:03 06:42 06:42 RBC 2.59 L (3.80-5.40) m/uL Hgb 8.0 L (11.4-16.0) gm/dL Hct 24.4 L (34.0-46.0) % RDW 17.5 H (11.5-15.5) % Plt Count 87 L (150-450) k/uL Lymphocytes # 0.4 L (1.0-4.8) k/uL Chloride 113 H (98-107) mmol/L Carbon Dioxide 20 L (22-30) mmol/L BUN 24 H (7-17) mg/dL Creatinine 1.07 H (0.52-1.04) mg/dL POC Glucose (mg/dL) 101 H (75-99) mg/dL Calcium 7.0 L (8.4-10.2) mg/dL 07/16/16 Range/Units 17:00 RBC (3.80-5.40) m/uL Hgb (11.4-16.0) gm/dL Hct (34.0-46.0) % RDW (11.5-15.5) % Plt Count (150-450) k/uL Lymphocytes # (1.0-4.8) k/uL Chloride (98-107) mmol/L Carbon Dioxide (22-30) mmol/L BUN (7-17) mg/dL Creatinine (0.52-1.04) mg/dL POC Glucose (mg/dL) 143 H (75-99) mg/dL Calcium (8.4-10.2) mg/dL Laboratory Results WBC 4.3 k/uL (3.8-10.6) 07/16/16 06:42 RBC 2.59 m/uL (3.80-5.40) L 07/16/16 06:42 Hgb 8.0 gm/dL (11.4-16.0) L 07/16/16 06:42 Hct 24.4 % (34.0-46.0) L 07/16/16 06:42 MCV 93.8 fL (80.0-100.0) 07/16/16 06:42 MCH 30.8 pg (25.0-35.0) 07/16/16 06:42 MCHC 32.8 g/dL (31.0-37.0) 07/16/16 06:42 RDW 17.5 % (11.5-15.5) H 07/16/16 06:42 Plt Count 87 k/uL (150-450) L 07/16/16 06:42 Neutrophils % 84 % 07/16/16 06:42 Lymphocytes % 9 % 07/16/16 06:42 Monocytes % 6 % 07/16/16 06:42 Eosinophils % 0 % 07/16/16 06:42 Basophils % 0 % 07/16/16 06:42 Neutrophils # 3.7 k/uL (1.3-7.7) 07/16/16 06:42 Lymphocytes # 0.4 k/uL (1.0-4.8) L 07/16/16 06:42 Monocytes # 0.2 k/uL (0-1.0) 07/16/16 06:42 Eosinophils # 0.0 k/uL (0-0.7) 07/16/16 06:42 Basophils # 0.0 k/uL (0-0.2) 07/16/16 06:42 Manual Slide Review Performed 07/13/16 05:10 Toxic Granulation Present 07/12/16 15:00 Polychromasia Present 07/12/16 15:00 Hypochromasia Slight 07/16/16 06:42 Poikilocytosis Slight 07/16/16 06:42 Poikilocytosis (manual Present 07/12/16 15:00 Anisocytosis Slight 07/16/16 06:42 Macrocytosis Slight 07/15/16 05:25 PT 16.3 sec (9.0-12.0) H 07/11/16 19:15 INR 1.7 (<1.1) 07/11/16 19:15 APTT 23.2 sec (22.0-30.0) 07/11/16 19:15 Sodium 142 mmol/L (137-145) 07/16/16 06:42 Potassium 4.0 mmol/L (3.5-5.1) 07/16/16 06:42 Chloride 113 mmol/L (98-107) H 07/16/16 06:42 Carbon Dioxide 20 mmol/L (22-30) L 07/16/16 06:42 Anion Gap 9 mmol/L 07/16/16 06:42 BUN 24 mg/dL (7-17) H 07/16/16 06:42 Creatinine 1.07 mg/dL (0.52-1.04) H 07/16/16 06:42 Est GFR (MDRD) Af Amer >60 (>60 ml/min/1.73 sqM) 07/16/16 06:42 Est GFR (MDRD) Non-Af 53 (>60 ml/min/1.73 sqM) 07/16/16 06:42 Glucose 84 mg/dL (74-99) 07/16/16 06:42 POC Glucose (mg/dL) 143 mg/dL (75-99) H 07/16/16 17:00 POC Glu [employer] STEPHEN Gabriela Lawson 07/16/16 17:[address] Glu mg/dL 94 mg/dL 07/12/16 11:25 Hemoglobin A1c 4.9 % (4.2-6.1) 07/12/16 11:25 Plasma Lactic Acid [place] 1.7 mmol/L (0.7-2.0) 07/12/16 00:15 Calcium 7.0 mg/dL (8.4-10.2) L 07/16/16 06:42 Phosphorus 3.4 mg/dL (2.5-4.5) 07/16/16 06:42 Magnesium 1.6 mg/dL (1.6-2.3) 07/16/16 06:42 Total Bilirubin 0.9 mg/dL (0.2-1.3) 07/11/16 19:15 AST 30 U/L (14-36) 07/11/16 19:15 ALT 38 U/L (9-52) 07/11/16 19:15 Alkaline Phosphatase 46 U/L (38-126) 07/11/16 19:15 Total Creatine Kinase 30 U/L (30-135) 07/11/16 19:15 CK-MB (CK-2) 0.4 ng/mL (0.0-2.4) 07/11/16 19:15 CK-MB (CK-2) Rel Index 1.3 07/11/16 19:15 Troponin I 0.106 ng/mL (0.000-0.034) H* 07/11/16 19:15 Total Protein 5.2 g/dL (6.3-8.2) L 07/11/16 19:15 Albumin 2.7 g/dL (3.5-5.0) L 07/11/16 19:15 Urine Color Yellow 07/11/16 21:20 Urine Appearance Turbid (Clear) H 07/11/16 21:20 Urine pH 6.0 (5.0-8.0) 07/11/16 21:20 Ur Specific [place] 1.015 (1.001-1.035) 07/11/16 21:20 Urine Protein 3+ (Negative) H 07/11/16 21:20 Urine Glucose (UA) Negative (Negative) 07/11/16 21:20 Urine Ketones Negative (Negative) 07/11/16 21:20 Urine Blood Large (Negative) H 07/11/16 21:20 Urine Nitrate Negative (Negative) 07/11/16 21:20 Urine Bilirubin Negative (Negative) 07/11/16 21:20 Urine Urobilinogen <2.0 mg/dL (<2.0) 07/11/16 21:20 Ur Leukocyte Esterase Large (Negative) H 07/11/16 21:20 Urine RBC 96 /hpf (0-5) H 07/11/16 21:20 Urine WBC >182 /hpf (0-5) H 07/11/16 21:20 Urine WBC Clumps Many /hpf (None) H 07/11/16 21:20 Urine Bacteria Many /hpf (None) H 07/11/16 21:20 Influenza Type A RNA Not Detected (Not Detectd) 07/11/16 21:30 Influenza Type B (PCR) Not Detected (Not Detectd) 07/11/16 21:30 Blood Type A Positive 07/11/16 19:15 Blood Type Recheck No 07/11/16 19:15 Antibody Screen NEGATIVE 07/11/16 19:15 Crossmatch See Detail 07/11/16 19:15 Spec Expiration Date 07/14/2016 - 6430 07/11/16 19:15 Assessment and Plan (1) Acute blood loss anemia Narrative/Plan: 60-year-old woman who is a very complex past medical history including the recent difficulty with staphylococcal infection of her hip and high-grade bacteremia. This eventually improved. He now presents with evidence of shock. Concerns of sepsis with her history of multiple bouts of infection. But also to blood loss anemia is etiology of shock because of her marked bleeding from her ileostomy. She's undergone endoscopy today. She was having some bleeding at the site. Surgery has been consulted for cautery of the ileostomy to help her with her blood loss. Apparently this will be happening at our facility. The laboratory did call positive culture and now it appears this may be corrected and were not single positive blood culture. With the negative blood cultures the antibiotic therapy may be discontinued. She is however having difficulties with bleeding from her ileostomy. Biopsy shows ongoing inflammation and ileitis. Surgery and gastroenterology are coming up with a plan potentially laser photocoagulation performed at our facility before discharge to prevent further bleeding. Status: Acute (2) Sepsis Status: Acute
[2016-07-16 21:36] LABS: Glucose,Whole Blood 104 mg/dL (75-99)
[2016-07-16] MEDS: CODEINE 30 MG TAB PO PRN (23:11)
[2016-07-17] MEDS: HYDROCORTISONE SUCCINATE 100 MG/2 ML VIAL IV SCH ×4 (00:10→23:38)
[2016-07-17 07:06] LABS: Glucose,Whole Blood 82 mg/dL (75-99)
[2016-07-17 07:23] LABS: Anion Gap 10 mmol/L; Blood Urea Nitrogen 24 mg/dL (7-17); Calcium 7.3 mg/dL (8.4-10.2); Carbon Dioxide 16 mmol/L (22-30); Chloride 116 mmol/L (98-107); Glucose 81 mg/dL (74-99); Magnesium 1.5 mg/dL (1.6-2.3); Non-African American GFR(MDRD) 54 (>60 ml/min/1.73 sqM); Phosphorous 3.6 mg/dL (2.5-4.5); Potassium 3.8 mmol/L (3.5-5.1); Sodium 142 mmol/L (137-145)
[2016-07-17 07:26] LABS: Anisocytosis Slight; Basophils % (A) 0 %; CH 30.5; CHCM 31.6; Eosinophils % (A) 0 %; HCT 29.9 % (34.0-46.0); HGB 9.4 gm/dL (11.4-16.0); Hypochromasia Moderate; Luc # (Auto) 0.04; Luc % (Auto) 1; Lymphocytes # (A) 0.6 k/uL (1.0-4.8); Lymphocytes % (A) 11 %; MCH 30.7 pg (25.0-35.0); MCHC 31.5 g/dL (31.0-37.0); MCV 97.4 fL (80.0-100.0); Macrocytosis Slight; Mean Platelet Volume 8.2; Monocytes # (A) 0.3 k/uL (0-1.0); Monocytes % (A) 5 %; Neutrophils # (A) 4.6 k/uL (1.3-7.7); Neutrophils % (A) 82 %; Poikilocytosis Slight; RBC 3.07 m/uL (3.80-5.40); RDW 16.9 % (11.5-15.5); WBC 5.5 k/uL (3.8-10.6); WBC (Perox) 5.99
[2016-07-17] MEDS: INSULIN LISPRO (humaLOG) 300 UNIT/3 ML VIAL SQ SCH ×4 (08:19→21:39)
[2016-07-17] MEDS: PANTOPRAZOLE 40 MG/10 ML VIAL IVP SCH ×2 (09:17→21:32)
[2016-07-17] MEDS: SODIUM CHLORIDE 0.9% 1,000 ML IV SCH ×2 (09:17→21:31)
[2016-07-17] MEDS: MAGNESIUM OXIDE 400 MG TAB PO SCH ×2 (09:22→21:32)
--- NOTE | 2016-07-17 11:03 | P.PN ---
Progress Note - Text The patient remains stable. No active bleeding last day or 2. Path report from the ileal biopsy shows acute ileitis with granulation tissue. No nausea or vomiting. Capsule endoscopy results still pending. [place] on examination patient is awake alert and cheerful in no distress vital stable. Abdomen is soft stoma looks healthy no evidence of any bleeding. Usual amount of granulation tissue on the surface. Hemoglobins of improved at 9.5 g percent. Impression recurrent episodes of bleeding per ileostomy. Not sure as to the source. Suspected could be secondary to acute ileitis in granulation tissue at the stomal surface. And recurrence of Crohn's. No gross evidence of varices in the small bowel just proximal or in the esophagus. Recommendation await the capsule endoscopy results. Continue aggressive treatment of her possible recurrent Crohn's. Argon gas coagulation of the stoma which was done several years ago and resulted in control several years may be an option as well. We will continue to follow.
[2016-07-17] MEDS ORDERED: DAPTOmycin 500 MG in SODIUM CHLORIDE 0.9% 50 ML IV SCH (12:00)
[2016-07-17 13:10] LABS: Glucose,Whole Blood 79 mg/dL (75-99)
--- NOTE | 2016-07-17 15:27 | P.PN ---
Subjective This is a 60-year-old female. Her primary care physician Dr. Recinos. She has a past medical history of Crohn's status post bowel resection followed by ileostomy, hepatitis C treated with Harvoni and in remission followed by Dr. Colon, diabetes mellitus type 2, gastroesophageal reflux disease, hypertension, history of sepsis due to urinary tract infection and kidney stone and ARDS in 2007, bleeding from stoma, anxiety, septic joint and avascular necrosis of the right hip and MRSA bacteremia treated in April 2016 under the care of Dr. Thayer. She gives history of bleeding from her ileostomy that started 4-5 days ago. She states she came into the ER on 2 occasions and was sent home. She states her hemoglobin has been gradually dropping with each visit. She is on chronic prednisone at 40 mg daily for at least 10 years due to her Crohn's disease. Return to [facility] emergency center and her hemoglobin was found to be 6.3. She is status post transfusion of 3 units of packed RBCs and 1 -1/2 L of fluid in the ER for low blood pressure. She subsequently was started on norepinephrine and transferred to the intensive care unit. Urine output has been adequate. Norepinephrine is being weaned she is currently at [address] Cabezas is on consult for intensive care management, Dr. Thayer for urinary tract infection, sepsis and MRSA bacteremia, Dr. Colon for GI bleed and Dr. garcia for GI bleed. She has been started on daptomycin and echocardiogram ordered. Gastroenterology is planning for EGD and lower scope tomorrow. 07/13: She is scheduled today for upper and lower endoscopy. Insulin drip was off and patient will be transitioned to Humalog scale only at this time due to her nothing by mouth status. Hemoglobin is stable at 8.1, platelet count has dropped from 206-88. BUN improved to 31 and creatinine 1.7. Blood cultures now showing no growth at 24 hours. Urine culture is in progress. She is off norepinephrine. 07/16: Patient is now seen on the pediatric unit. She has been hemodynamically stable. She continues to have intermittent bleeding from her stoma especially with minimal activity. She states then she feels lightheaded. She has received a total of [address] Barakat to talk to Dr. Hudson did advise plan from here. Repeat chest x-ray shows no acute pulmonary process. She is status post EGD and ileoscopy with snare polypectomy performed on July [address] Hudson. Upper endoscopy was within normal limits no evidence of esophagitis, peptic ulcer disease or esophageal varices. Ileoscopy revealed active oozing at the ileostomy site. 60 cm of the distal ileum appeared normal except for 1 cm serrated polyp at 10 cm from the ileostomy status post snare polypectomy. Recommendations at that time were for small bowel capsule endoscopy. Hemoglobin today is 8.0. BUN 24 and creatinine 1.07. Echocardiogram reveals trace mitral regurgitation, mild tricuspid regurgitation , severe concentric left ventricle hypertrophy, EF 55-60%, cannot rule out vegetation. Blood culture is negative at 96 hours and daptomycin will be discontinued. 07/17: Repeat hemoglobin 9.4. We are currently waiting for capsule endoscopy report. Patient may require argon gas coagulation of the stoma. Pathology report of ileum biopsy is acute ileitis and inflamed granulation tissue. Objective - Vital Signs Vital signs: Vital Signs Temp 98.0 F 07/17/16 06:55 Pulse 63 07/17/16 09:30 Resp 16 07/17/16 06:55 BP 124/61 07/17/16 09:30 Pulse Ox 98 07/17/16 06:55 Intake & Output 07/16/16 07/17/16 07/17/16 18:59 06:59 18:59 Intake Total 300 40 250 Output Total 850 1200 Balance -550 -1160 250 Intake: Oral 300 40 250 Output: Urine 650 1000 Stool 200 200 Other: Voiding Method Bedpan # Voids 1 - Exam Gen: This is a 60-year-old female. She is sitting up in bed and appears to be in no acute distress while at rest. HEENT: Head is atraumatic, normocephalic. Pupils equal, round. Sclerae is anicteric. Oral mucous membranes are dry. No thrush noted. NECK: Supple. No JVD. No lymphadenopathy. No thyromegaly. LUNGS: Clear to auscultation. No wheezes or rhonchi. No intercostal retractions. HEART: Regular rate and rhythm. No murmur. ABDOMEN: Soft. Bowel sounds are present. No masses. No tenderness. Right- sided ileostomy with no active bleeding. EXTREMITIES: No pedal edema. No calf tenderness. NEUROLOGICAL: Patient is awake, alert and oriented x3. Cranial nerves 2 through 12 are grossly intact. - Labs CBC & Chem 7: 07/17/16 06:59 07/17/16 06:52 Labs: Abnormal Lab Results - Last 24 Hours (Table) 07/16/16 07/16/16 07/17/16 Range/Units 17:00 21:30 06:52 RBC (3.80-5.40) m/uL Hgb (11.4-16.0) gm/dL Hct (34.0-46.0) % RDW (11.5-15.5) % Plt Count (150-450) k/uL Lymphocytes # (1.0-4.8) k/uL Chloride 116 H (98-107) mmol/L Carbon Dioxide 16 L (22-30) mmol/L BUN 24 H (7-17) mg/dL POC Glucose (mg/dL) 143 H 104 H (75-99) mg/dL Calcium 7.3 L (8.4-10.2) mg/dL Magnesium 1.5 L (1.6-2.3) mg/dL 07/17/16 Range/Units 06:59 RBC 3.07 L (3.80-5.40) m/uL Hgb 9.4 L (11.4-16.0) gm/dL Hct 29.9 L (34.0-46.0) % RDW 16.9 H (11.5-15.5) % Plt Count 104 L (150-450) k/uL Lymphocytes # 0.6 L (1.0-4.8) k/uL Chloride (98-107) mmol/L Carbon Dioxide (22-30) mmol/L BUN (7-17) mg/dL POC Glucose (mg/dL) (75-99) mg/dL Calcium (8.4-10.2) mg/dL Magnesium (1.6-2.3) mg/dL Assessment and Plan Plan: 1. Acute GI bleed from ileostomy, general surgeon, Dr. Barakat and gastroenterology, Dr. Stanton are on consult. Upper and lower endoscopy as above. Endoscopy Pending. Patient May Require Argon Gas Coagulation of the Stoma. 2. Acute blood loss anemia and hypovolemic shock status post transfusion of packed RBCs and IV fluid boluses. Patient is off vasopressors. 3. History of right hip septic joint and avascular necrosis with sepsis, septicemia and MRSA bacteremia in April 2016 with negative repeat blood cultures. Dr. Thayer is on consult. Daptomycin will be discontinued. Echocardiogram as above. 4. Acute kidney injury due to acute blood loss anemia presenting with BUN of 38 and creatinine 3.11. Baseline creatinine is around 1. Stable. 5. Diabetes mellitus type 2. Patient is on Tradjenta at home. Humalog scale for now. 6. Hypertension, not currently on medication. 4. Crohn's disease status post bowel resection and ileostomy, stable. Patient is normally on prednisone 40 mg daily. Currently on Solu-Cortef 100 mg IV every 8 hours. 5. Generalized anxiety disorder. Continue Xanax 0.5 mg at bedtime. 6. History of hepatitis C status post Harvoni treatment followed by rianna Hicks. 7. Gastro intestinal prophylaxis. Continue Protonix 40 mg twice daily. 8. DVT prophylaxis. SCDs and CRISTHIAN hose. 9. Anemia of chronic disease. Discharge plan: Return home with homecare Impression and plan of care have been directed as dictated by the signing physician. Glenis Hernandez nurse practitioner acting as scribe for signing physician. Time with Patient: Greater than 30
[2016-07-17 17:34] LABS: Glucose,Whole Blood 84 mg/dL (75-99)
--- NOTE | 2016-07-17 20:29 | P.PN ---
Subjective Principal diagnosis: hypovolemic shock from blood loss This is a 60-year-old female. She is well-known to ID service as she was treated during her admission April 24 - 2015, septic right hip joint and avascular necrosis and MRSA bacteremia. She was discharged to [facility] with Zyvox to complete a 6 week course. Unsure if patient had follow-up. She also has a past medical history of Crohn's status post bowel resection followed by ileostomy on chronic prednisone, hepatitis C treated with Harvoni and in remission followed by Dr. Colon, diabetes mellitus type 2, gastroesophageal reflux disease, hypertension, history of sepsis due to urinary tract infection and kidney stone and ARDS in 2007, bleeding from stoma, anxiety, She gives history of bleeding from her ileostomy that started 4-5 days ago. She states she came into the ER on 2 occasions and was sent home. She states her hemoglobin has been gradually dropping with each visit. She returned to [facility] emergency center and her hemoglobin was found to be 6.3. She is status post transfusion of 3 units of packed RBCs and 1-1/2 L of fluid in the ER for low blood pressure. She subsequently was started on norepinephrine and transferred to the intensive care unit. Urine output has been adequate. Norepinephrine is being weaned she is currently at [address] Cabezas is on consult for intensive care management, Dr. Colon for GI bleed and Dr. Barakat for GI bleed. preliminary blood cultures are negative it is thought that she was having acute blood loss anemia is etiology of her hypotension but with her history of multiple episodes of bacteremia antibiotic therapy has been started Cultures are negative so far. He has been treated with daptomycin with concerns to her prior history of staphylococcal sepsis. Objective - Vital Signs Vital signs: Vital Signs Temp 99.0 F 07/17/16 16:10 Pulse 55 L 07/17/16 16:10 Resp 20 07/17/16 16:10 BP 143/72 07/17/16 16:10 Pulse Ox 99 07/17/16 16:10 Intake & Output 07/17/16 07/17/16 07/18/16 06:59 18:59 06:59 Intake Total 40 250 Output Total 1200 1050 Balance -1160 -800 Intake: Oral 40 250 Output: Urine 1000 850 Stool 200 200 Other: Voiding Method Bedpan Bedpan # Voids 1 2 # Bowel Movements 1 - Exam Gen: This is a 60-year-old female. She is sitting up in bed and appears to be in no acute distress while at rest.fells much better HEENT: Head is atraumatic, normocephalic. Pupils equal, round. Sclerae is anicteric. Oral mucous membranes are dry. No thrush noted. NECK: Supple. No JVD. No lymphadenopathy. No thyromegaly. LUNGS: Clear to auscultation. No wheezes or rhonchi. No intercostal retractions. HEART: Regular rate and rhythm. No murmur. ABDOMEN: Soft. Bowel sounds are present. No masses. No tenderness. Right- sided ileostomy with liquid stool without evidence of active bleeding at this time. EXTREMITIES: No pedal edema. No calf tenderness. NEUROLOGICAL: Patient is awake, alert and oriented x3. - Labs CBC & Chem 7: 07/17/16 06:59 07/17/16 06:52 Labs: Abnormal Lab Results - Last 24 Hours (Table) 07/16/16 07/17/16 07/17/16 Range/Units 21:30 06:52 06:59 RBC 3.07 L (3.80-5.40) m/uL Hgb 9.4 L (11.4-16.0) gm/dL Hct 29.9 L (34.0-46.0) % RDW 16.9 H (11.5-15.5) % Plt Count 104 L (150-450) k/uL Lymphocytes # 0.6 L (1.0-4.8) k/uL Chloride 116 H (98-107) mmol/L Carbon Dioxide 16 L (22-30) mmol/L BUN 24 H (7-17) mg/dL POC Glucose (mg/dL) 104 H (75-99) mg/dL Calcium 7.3 L (8.4-10.2) mg/dL Magnesium 1.5 L (1.6-2.3) mg/dL Laboratory Results WBC 5.5 k/uL (3.8-10.6) 07/17/16 06:59 RBC 3.07 m/uL (3.80-5.40) L 07/17/16 06:59 Hgb 9.4 gm/dL (11.4-16.0) L 07/17/16 06:59 Hct 29.9 % (34.0-46.0) L 07/17/16 06:59 MCV 97.4 fL (80.0-100.0) 07/17/16 06:59 MCH 30.7 pg (25.0-35.0) 07/17/16 06:59 MCHC 31.5 g/dL (31.0-37.0) 07/17/16 06:59 RDW 16.9 % (11.5-15.5) H 07/17/16 06:59 Plt Count 104 k/uL (150-450) L 07/17/16 06:59 Neutrophils % 82 % 07/17/16 06:59 Lymphocytes % 11 % 07/17/16 06:59 Monocytes % 5 % 07/17/16 06:59 Eosinophils % 0 % 07/17/16 06:59 Basophils % 0 % 07/17/16 06:59 Neutrophils # 4.6 k/uL (1.3-7.7) 07/17/16 06:59 Lymphocytes # 0.6 k/uL (1.0-4.8) L 07/17/16 06:59 Monocytes # 0.3 k/uL (0-1.0) 07/17/16 06:59 Eosinophils # 0.0 k/uL (0-0.7) 07/17/16 06:59 Basophils # 0.0 k/uL (0-0.2) 07/17/16 06:59 Manual Slide Review Performed 07/13/16 05:10 Toxic Granulation Present 07/12/16 15:00 Polychromasia Present 07/12/16 15:00 Hypochromasia Moderate 07/17/16 06:59 Poikilocytosis Slight 07/17/16 06:59 Poikilocytosis (manual Present 07/12/16 15:00 Anisocytosis Slight 07/17/16 06:59 Macrocytosis Slight 07/17/16 06:59 PT 16.3 sec (9.0-12.0) H 07/11/16 19:15 INR 1.7 (<1.1) 07/11/16 19:15 APTT 23.2 sec (22.0-30.0) 07/11/16 19:15 Sodium 142 mmol/L (137-145) 07/17/16 06:52 Potassium 3.8 mmol/L (3.5-5.1) 07/17/16 06:52 Chloride 116 mmol/L (98-107) H 07/17/16 06:52 Carbon Dioxide 16 mmol/L (22-30) L 07/17/16 06:52 Anion Gap 10 mmol/L 07/17/16 06:52 BUN 24 mg/dL (7-17) H 07/17/16 06:52 Creatinine 1.04 mg/dL (0.52-1.04) 07/17/16 06:52 Est GFR (MDRD) Af Amer >60 (>60 ml/min/1.73 sqM) 07/17/16 06:52 Est GFR (MDRD) Non-Af 54 (>60 ml/min/1.73 sqM) 07/17/16 06:52 Glucose 81 mg/dL (74-99) 07/17/16 06:52 POC Glucose (mg/dL) 84 mg/dL (75-99) 07/17/16 17:32 POC Glu [employer] Worker ID Ирина Lange 07/17/16 17:[address] Glu mg/dL 94 mg/dL 07/12/16 11:25 Hemoglobin A1c 4.9 % (4.2-6.1) 07/12/16 11:25 Plasma Lactic Acid [place] 1.7 mmol/L (0.7-2.0) 07/12/16 00:15 Calcium 7.3 mg/dL (8.4-10.2) L 07/17/16 06:52 Phosphorus 3.6 mg/dL (2.5-4.5) 07/17/16 06:52 Magnesium 1.5 mg/dL (1.6-2.3) L 07/17/16 06:52 Total Bilirubin 0.9 mg/dL (0.2-1.3) 07/11/16 19:15 AST 30 U/L (14-36) 07/11/16 19:15 ALT 38 U/L (9-52) 07/11/16 19:15 Alkaline Phosphatase 46 U/L (38-126) 07/11/16 19:15 Total Creatine Kinase 30 U/L (30-135) 07/11/16 19:15 CK-MB (CK-2) 0.4 ng/mL (0.0-2.4) 07/11/16 19:15 CK-MB (CK-2) Rel Index 1.3 07/11/16 19:15 Troponin I 0.106 ng/mL (0.000-0.034) H* 07/11/16 19:15 Total Protein 5.2 g/dL (6.3-8.2) L 07/11/16 19:15 Albumin 2.7 g/dL (3.5-5.0) L 07/11/16 19:15 Urine Color Yellow 07/11/16 21:20 Urine Appearance Turbid (Clear) H 07/11/16 21:20 Urine pH 6.0 (5.0-8.0) 07/11/16 21:20 Ur Specific [place] 1.015 (1.001-1.035) 07/11/16 21:20 Urine Protein 3+ (Negative) H 07/11/16 21:20 Urine Glucose (UA) Negative (Negative) 07/11/16 21:20 Urine Ketones Negative (Negative) 07/11/16 21:20 Urine Blood Large (Negative) H 07/11/16 21:20 Urine Nitrate Negative (Negative) 07/11/16 21:20 Urine Bilirubin Negative (Negative) 07/11/16 21:20 Urine Urobilinogen <2.0 mg/dL (<2.0) 07/11/16 21:20 Ur Leukocyte Esterase Large (Negative) H 07/11/16 21:20 Urine RBC 96 /hpf (0-5) H 07/11/16 21:20 Urine WBC >182 /hpf (0-5) H 07/11/16 21:20 Urine WBC Clumps Many /hpf (None) H 07/11/16 21:20 Urine Bacteria Many /hpf (None) H 07/11/16 21:20 Influenza Type A RNA Not Detected (Not Detectd) 07/11/16 21:30 Influenza Type B (PCR) Not Detected (Not Detectd) 07/11/16 21:30 Blood Type A Positive 07/11/16 19:15 Blood Type Recheck No 07/11/16 19:15 Antibody Screen NEGATIVE 07/11/16 19:15 Crossmatch See Detail 07/11/16 19:15 Spec Expiration Date 07/14/2016 - 3661 07/11/16 19:15 Microbiology 07/11/16 19:15 Blood Blood Culture - Preliminary No Growth after 120 hours 07/12/16 13:30 Urine,Catheterized Urine Culture - Final Assessment and Plan (1) Acute blood loss anemia Narrative/Plan: 60-year-old woman who is a very complex past medical history including the recent difficulty with staphylococcal infection of her hip and high-grade bacteremia. This eventually improved. He now presents with evidence of shock. Concerns of sepsis with her history of multiple bouts of infection. But also to blood loss anemia is etiology of shock because of her marked bleeding from her ileostomy. She's undergone endoscopy today. She was having some bleeding at the site. Surgery has been consulted for cautery of the ileostomy to help her with her blood loss. Apparently this will be happening at our facility. The laboratory did call positive culture and now it appears this may be corrected and were not single positive blood culture. With the negative blood cultures the antibiotic therapy may be discontinued. She is however having difficulties with bleeding from her ileostomy. Biopsy shows ongoing inflammation and ileitis. Surgery and gastroenterology are coming up with a plan potentially laser photocoagulation performed at our facility before discharge to prevent further bleeding. Status: Acute (2) Sepsis Status: Acute
[2016-07-17 21:22] LABS: Glucose,Whole Blood 99 mg/dL (75-99)
[2016-07-17] MEDS: CODEINE 30 MG TAB PO PRN (23:38)
[2016-07-18 07:16] LABS: Anion Gap 7 mmol/L; Blood Urea Nitrogen 24 mg/dL (7-17); Calcium 6.8 mg/dL (8.4-10.2); Carbon Dioxide 22 mmol/L (22-30); Chloride 114 mmol/L (98-107); Glucose 79 mg/dL (74-99); Non-African American GFR(MDRD) 54 (>60 ml/min/1.73 sqM); Potassium 3.3 mmol/L (3.5-5.1); Sodium 143 mmol/L (137-145)
--- NOTE | 2016-07-18 07:57 | P.PN ---
Progress Note - Text Patient is stable. She states she did have a small amount of bright red blood per through the ostomy last night but it spontaneously stopped after she put pressure on it. The capsule endoscopy was unremarkable no evidence of varices. On examination the patient is awake alert in no distress. Not particularly pale vitals are stable. Abdomen is soft. There is brown stool in the stoma bag. No active bleeding at this time. Hemoglobin is pending. Impression bleeding per ileostomy. There being no other source for the bleeding and then the remaining small bowel in the upper GI tract one would have to assume that the bleeding is from the stoma itself branches on the friable side. In particular no evidence of the varices endoscopically or by capsule endoscopy. Therefore the recommend the Ambrosio coagulation of the stoma this would help since it did in the in the past. She does understand the procedure which I explained to her and the potential for scarring and stenosis and recurrence and agrees to proceed. We'll schedule for tomorrow."
[2016-07-18 08:14] LABS: Glucose,Whole Blood 94 mg/dL (75-99)
--- NOTE | 2016-07-18 08:33 | P.PN ---
Subjective Principal diagnosis: GI bleed 60-year-old female with a history of Crohn's status post total proctocolectomy with ileostomy, liver disease, hepatitis C, coagulopathy and thrombocytopenia presents with acute GI bleed with blood in her ileostomy. Status post EGD ileoscopy followed by small bowel capsule endoscopy with no evidence of active bleeding. Bleeding is felt to be variceal in origin around her stoma. Last night she had small amount of blood-tinged stool emanate from her ostomy. Denies abdominal pain. Afebrile. Hemoglobin 9.4 yesterday. Objective - Vital Signs Vital signs: Vital Signs Temp 98.0 F 07/18/16 02:30 Pulse 60 07/18/16 02:30 Resp 16 07/18/16 02:30 BP 131/74 07/18/16 02:30 Pulse Ox 99 07/18/16 02:30 Intake & Output 07/17/16 07/18/16 07/18/16 18:59 06:59 18:59 Intake Total 250 Output Total 1050 1575 Balance -800 -1575 Intake: Oral 250 Output: Urine 850 1000 Stool 200 575 Other: Voiding Method Bedpan Bedside Commode # Voids 2 1 # Bowel Movements 1 - Exam General appearance: The patient is alert, oriented, in no acute distress. HET: Head is normocephalic and atraumatic. Pupils are equal and reactive. Oropharynx is clear without lesions. Neck: Supple without lymphadenopathy. Trachea midline. Heart: S1 S2. Regular rate and rhythm. Lungs: No crackles or wheezes are heard. Abdomen: Soft, nontender, nondistended with bowel sounds. Ileostomy with mixed bloody brown liquid stool. No peritoneal signs. No palpable organomegaly or masses. Extremities: Normal skin color and turgor. No cyanosis, rash, ulceration, clubbing, or edema. Radial and pedal pulses are 2/4 bilaterally. Neurological: No focal deficits. Strength and sensation are grossly intact. - Labs CBC & Chem 7: 07/17/16 06:59 07/18/16 06:37 Labs: Abnormal Lab Results - Last 24 Hours (Table) 07/18/16 Range/Units 06:37 Potassium 3.3 L (3.5-5.1) mmol/L Chloride 114 H (98-107) mmol/L BUN 24 H (7-17) mg/dL Calcium 6.8 L (8.4-10.2) mg/dL Assessment and Plan (1) GI bleed Narrative/Plan: 60-year-old female with a history of Crohn's disease with total proctocolectomy ileostomy presents with recurrent ileostomy bleeding suspected from her stoma possible AVM possible varices. History of chronic thrombocytopenia coagulopathy and hepatitis C with underlying liver disease. Superimposed acute on chronic anemia with acute blood loss component. Status post EGD ileoscopy and small bowel capsule endoscopy no evidence of active bleeding. Bleeding felt to be related to stoma varices. Status: Acute (2) Acute blood loss anemia Status: Acute (3) Hepatitis C Status: Acute (4) Thrombocytopenia Status: Acute (5) Liver disease, chronic Status: Acute Plan: 1. Capsule endoscopy findings discussed with Dr. Barakat this morning. Argon plasma coagulation scheduled tomorrow with surgery. Continue supportive measures. We'll follow as needed. Assessment and plan a care discussed with Dr. Colon.
[2016-07-18] MEDS: INSULIN LISPRO (humaLOG) 300 UNIT/3 ML VIAL SQ SCH ×4 (08:37→21:21)
[2016-07-18] MEDS: HYDROCORTISONE SUCCINATE 100 MG/2 ML VIAL IV SCH ×2 (08:38→16:09)
[2016-07-18] MEDS: PANTOPRAZOLE 40 MG/10 ML VIAL IVP SCH ×2 (08:38→21:22)
[2016-07-18] MEDS: MAGNESIUM OXIDE 400 MG TAB PO SCH ×2 (08:39→21:22)
[2016-07-18 08:42] LABS: Anisocytosis Slight; CH 30.9; CHCM 33.8; HCT 25.1 % (34.0-46.0); HDW 3.81; HGB 8.2 gm/dL (11.4-16.0); Hypochromasia Slight; MCH 30.2 pg (25.0-35.0); MCHC 32.7 g/dL (31.0-37.0); Mean Platelet Volume 7.8; Poikilocytosis Slight; RBC 2.72 m/uL (3.80-5.40); RDW 16.4 % (11.5-15.5); WBC 6.4 k/uL (3.8-10.6)
[2016-07-18 08:51] LABS: MCV 92.4 fL (80.0-100.0)
[2016-07-18] MEDS ORDERED: POTASSIUM CHLORIDE 20 MEQ, LIDOCAINE 2% INJ 20 MG in SODIUM CHLORIDE 0.9% 100 ML IVPB SCH (12:00)
[2016-07-18 12:50] LABS: Glucose,Whole Blood 118 mg/dL (75-99)
[2016-07-18] MEDS: POTASSIUM CHLORIDE ER 20 MEQ TAB.ER PO SCH ×2 (13:07→14:45)
--- NOTE | 2016-07-18 14:38 | P.PN ---
Subjective This is a 60-year-old female. Her primary care physician Dr. Recinos. She has a past medical history of Crohn's status post bowel resection followed by ileostomy, hepatitis C treated with Harvoni and in remission followed by Dr. Colon, diabetes mellitus type 2, gastroesophageal reflux disease, hypertension, history of sepsis due to urinary tract infection and kidney stone and ARDS in 2007, bleeding from stoma, anxiety, septic joint and avascular necrosis of the right hip and MRSA bacteremia treated in April 2016 under the care of Dr. Thayer. She gives history of bleeding from her ileostomy that started 4-5 days ago. She states she came into the ER on 2 occasions and was sent home. She states her hemoglobin has been gradually dropping with each visit. She is on chronic prednisone at 40 mg daily for at least 10 years due to her Crohn's disease. Return to [facility] emergency center and her hemoglobin was found to be 6.3. She is status post transfusion of 3 units of packed RBCs and 1 -1/2 L of fluid in the ER for low blood pressure. She subsequently was started on norepinephrine and transferred to the intensive care unit. Urine output has been adequate. Norepinephrine is being weaned she is currently at [address] Cabezas is on consult for intensive care management, Dr. Thayer for urinary tract infection, sepsis and MRSA bacteremia, Dr. Colon for GI bleed and Dr. garcia for GI bleed. She has been started on daptomycin and echocardiogram ordered. Gastroenterology is planning for EGD and lower scope tomorrow. 07/13: She is scheduled today for upper and lower endoscopy. Insulin drip was off and patient will be transitioned to Humalog scale only at this time due to her nothing by mouth status. Hemoglobin is stable at 8.1, platelet count has dropped from 206-88. BUN improved to 31 and creatinine 1.7. Blood cultures now showing no growth at 24 hours. Urine culture is in progress. She is off norepinephrine. 07/16: Patient is now seen on the pediatric unit. She has been hemodynamically stable. She continues to have intermittent bleeding from her stoma especially with minimal activity. She states then she feels lightheaded. She has received a total of [address] Barakat to talk to Dr. Hudson did advise plan from here. Repeat chest x-ray shows no acute pulmonary process. She is status post EGD and ileoscopy with snare polypectomy performed on July [address] Hudson. Upper endoscopy was within normal limits no evidence of esophagitis, peptic ulcer disease or esophageal varices. Ileoscopy revealed active oozing at the ileostomy site. 60 cm of the distal ileum appeared normal except for 1 cm serrated polyp at 10 cm from the ileostomy status post snare polypectomy. Recommendations at that time were for small bowel capsule endoscopy. Hemoglobin today is 8.0. BUN 24 and creatinine 1.07. Echocardiogram reveals trace mitral regurgitation, mild tricuspid regurgitation , severe concentric left ventricle hypertrophy, EF 55-60%, cannot rule out vegetation. Blood culture is negative at 96 hours and daptomycin will be discontinued. 07/17: Repeat hemoglobin 9.4. We are currently waiting for capsule endoscopy report. Patient may require argon gas coagulation of the stoma. Pathology report of ileum biopsy is acute ileitis and inflamed granulation tissue. 07/18: Hemoglobin 8.2. Potassium 3.2 and will be replaced. She is scheduled for for ileoscopy and argon gas coagulation of the stoma tomorrow with Dr. Barakat. Objective - Vital Signs Vital signs: Vital Signs Temp 98.0 F 07/18/16 02:30 Pulse 60 07/18/16 02:30 Resp 16 07/18/16 02:30 BP 131/74 07/18/16 02:30 Pulse Ox 99 07/18/16 02:30 Intake & Output 07/17/16 07/18/16 07/18/16 18:59 06:59 18:59 Intake Total 250 Output Total 1050 1575 Balance -800 -1575 Intake: Oral 250 Output: Urine 850 1000 Stool 200 575 Other: Voiding Method Bedpan Bedside Commode # Voids 2 1 # Bowel Movements 1 - Exam Gen: This is a 60-year-old female. She is sitting up in bed and appears to be in no acute distress while at rest. HEENT: Head is atraumatic, normocephalic. Pupils equal, round. Sclerae is anicteric. Oral mucous membranes are dry. No thrush noted. NECK: Supple. No JVD. No lymphadenopathy. No thyromegaly. LUNGS: Clear to auscultation. No wheezes or rhonchi. No intercostal retractions. HEART: Regular rate and rhythm. No murmur. ABDOMEN: Soft. Bowel sounds are present. No masses. No tenderness. Right- sided ileostomy with no active bleeding. EXTREMITIES: No pedal edema. No calf tenderness. NEUROLOGICAL: Patient is awake, alert and oriented x3. Cranial nerves 2 through 12 are grossly intact. - Labs CBC & Chem 7: 07/18/16 06:37 07/18/16 06:37 Labs: Abnormal Lab Results - Last 24 Hours (Table) 07/18/16 07/18/16 Range/Units 06:37 06:37 RBC 2.72 L (3.80-5.40) m/uL Hgb 8.2 L (11.4-16.0) gm/dL Hct 25.1 L (34.0-46.0) % RDW 16.4 H (11.5-15.5) % Plt Count 104 L (150-450) k/uL Potassium 3.3 L (3.5-5.1) mmol/L Chloride 114 H (98-107) mmol/L BUN 24 H (7-17) mg/dL Calcium 6.8 L (8.4-10.2) mg/dL Assessment and Plan Plan: 1. Acute GI bleed from ileostomy, general surgeon, Dr. Barakat and gastroenterology, Dr. Stanton are on consult. Upper and lower endoscopy as above. Endoscopy Pending. Argon Gas Coagulation of the Stoma Scheduled for . 2. Acute blood loss anemia and hypovolemic shock status post transfusion of packed RBCs and IV fluid boluses. Patient is off vasopressors. 3. History of right hip septic joint and avascular necrosis with sepsis, septicemia and MRSA bacteremia in April 2016 with negative repeat blood cultures. Dr. Thayer is on consult. Daptomycin will be discontinued. Echocardiogram as above. 4. Acute kidney injury due to acute blood loss anemia presenting with BUN of 38 and creatinine 3.11. Baseline creatinine is around 1. Stable. 5. Diabetes mellitus type 2. Patient is on Tradjenta at home. Humalog scale for now. 6. Hypertension, not currently on medication. 4. Crohn's disease status post bowel resection and ileostomy, stable. Patient is normally on prednisone 40 mg daily. Currently on Solu-Cortef 100 mg IV every 8 hours. 5. Generalized anxiety disorder. Continue Xanax 0.5 mg at bedtime. 6. History of hepatitis C status post Harvoni treatment followed by rianna Hicks. 7. Gastro intestinal prophylaxis. Continue Protonix 40 mg twice daily. 8. DVT prophylaxis. SCDs and CRISTHIAN hose. 9. Anemia of chronic disease. Discharge plan: Return home with homecare Impression and plan of care have been directed as dictated by the signing physician. Glenis Hernandez nurse practitioner acting as scribe for signing physician. Time with Patient: Greater than 30
[2016-07-18 15:01] VITALS: BMI 24.3
[2016-07-18 18:37] LABS: Glucose,Whole Blood 95 mg/dL (75-99)
[2016-07-18 21:15] LABS: Glucose,Whole Blood 141 mg/dL (75-99)
--- NOTE | 2016-07-18 21:26 | P.PN ---
Subjective Principal diagnosis: hypovolemic shock from blood loss This is a 60-year-old female. She is well-known to ID service as she was treated during her admission April 24 - 2015, septic right hip joint and avascular necrosis and MRSA bacteremia. She was discharged to [facility] with Zyvox to complete a 6 week course. Unsure if patient had follow-up. She also has a past medical history of Crohn's status post bowel resection followed by ileostomy on chronic prednisone, hepatitis C treated with Harvoni and in remission followed by Dr. Colon, diabetes mellitus type 2, gastroesophageal reflux disease, hypertension, history of sepsis due to urinary tract infection and kidney stone and ARDS in 2007, bleeding from stoma, anxiety, She gives history of bleeding from her ileostomy that started 4-5 days ago. She states she came into the ER on 2 occasions and was sent home. She states her hemoglobin has been gradually dropping with each visit. She returned to [facility] emergency center and her hemoglobin was found to be 6.3. She is status post transfusion of 3 units of packed RBCs and 1-1/2 L of fluid in the ER for low blood pressure. She subsequently was started on norepinephrine and transferred to the intensive care unit. Urine output has been adequate. Norepinephrine is being weaned she is currently at [address] Cabezas is on consult for intensive care management, Dr. Colon for GI bleed and Dr. Barakat for GI bleed. preliminary blood cultures are negative it is thought that she was having acute blood loss anemia is etiology of her hypotension but with her history of multiple episodes of bacteremia antibiotic therapy has been started Cultures are negative so far. He has been treated with daptomycin with concerns to her prior history of staphylococcal sepsis. Objective - Vital Signs Vital signs: Vital Signs Temp 98.1 F 07/18/16 21:16 Pulse 54 L 07/18/16 21:16 Resp 18 07/18/16 21:16 BP 152/59 07/18/16 21:16 Pulse Ox 99 07/18/16 21:16 Intake & Output 07/18/16 07/18/16 07/19/16 06:59 18:59 06:59 Output Total 1575 750 600 Balance -1575 -750 -600 Weight 68.3 kg Output: Urine 1000 480 200 Stool 575 270 400 Other: Voiding Method Bedside Commode # Voids 1 1 # Bowel Movements 1 - Exam Gen: This is a 60-year-old female. She is sitting up in bed and appears to be in no acute distress while at rest.fells much better HEENT: Head is atraumatic, normocephalic. Pupils equal, round. Sclerae is anicteric. Oral mucous membranes are dry. No thrush noted. NECK: Supple. No JVD. No lymphadenopathy. No thyromegaly. LUNGS: Clear to auscultation. No wheezes or rhonchi. No intercostal retractions. HEART: Regular rate and rhythm. No murmur. ABDOMEN: Soft. Bowel sounds are present. No masses. No tenderness. Right- sided ileostomy with liquid stool with evidence some blood mixed with the stool this evening. EXTREMITIES: No pedal edema. No calf tenderness. NEUROLOGICAL: Patient is awake, alert and oriented x3. - Labs CBC & Chem 7: 07/18/16 06:37 07/18/16 06:37 Labs: Abnormal Lab Results - Last 24 Hours (Table) 07/18/16 07/18/16 07/18/16 Range/Units 06:37 06:37 12:40 RBC 2.72 L (3.80-5.40) m/uL Hgb 8.2 L (11.4-16.0) gm/dL Hct 25.1 L (34.0-46.0) % RDW 16.4 H (11.5-15.5) % Plt Count 104 L (150-450) k/uL Potassium 3.3 L (3.5-5.1) mmol/L Chloride 114 H (98-107) mmol/L BUN 24 H (7-17) mg/dL POC Glucose (mg/dL) 118 H (75-99) mg/dL Calcium 6.8 L (8.4-10.2) mg/dL 07/18/16 Range/Units 21:13 RBC (3.80-5.40) m/uL Hgb (11.4-16.0) gm/dL Hct (34.0-46.0) % RDW (11.5-15.5) % Plt Count (150-450) k/uL Potassium (3.5-5.1) mmol/L Chloride (98-107) mmol/L BUN (7-17) mg/dL POC Glucose (mg/dL) 141 H (75-99) mg/dL Calcium (8.4-10.2) mg/dL Laboratory Results WBC 6.4 k/uL (3.8-10.6) 07/18/16 06:37 RBC 2.72 m/uL (3.80-5.40) L 07/18/16 06:37 Hgb 8.2 gm/dL (11.4-16.0) L 07/18/16 06:37 Hct 25.1 % (34.0-46.0) L 07/18/16 06:37 MCV 92.4 fL (80.0-100.0) D 07/18/16 06:37 MCH 30.2 pg (25.0-35.0) 07/18/16 06:37 MCHC 32.7 g/dL (31.0-37.0) 07/18/16 06:37 RDW 16.4 % (11.5-15.5) H 07/18/16 06:37 Plt Count 104 k/uL (150-450) L 07/18/16 06:37 Neutrophils % 82 % 07/17/16 06:59 Lymphocytes % 11 % 07/17/16 06:59 Monocytes % 5 % 07/17/16 06:59 Eosinophils % 0 % 07/17/16 06:59 Basophils % 0 % 07/17/16 06:59 Neutrophils # 4.6 k/uL (1.3-7.7) 07/17/16 06:59 Lymphocytes # 0.6 k/uL (1.0-4.8) L 07/17/16 06:59 Monocytes # 0.3 k/uL (0-1.0) 07/17/16 06:59 Eosinophils # 0.0 k/uL (0-0.7) 07/17/16 06:59 Basophils # 0.0 k/uL (0-0.2) 07/17/16 06:59 Manual Slide Review Performed 07/13/16 05:10 Toxic Granulation Present 07/12/16 15:00 Polychromasia Present 07/12/16 15:00 Hypochromasia Slight 07/18/16 06:37 Poikilocytosis Slight 07/18/16 06:37 Poikilocytosis (manual Present 07/12/16 15:00 Anisocytosis Slight 07/18/16 06:37 Macrocytosis Slight 07/17/16 06:59 PT 16.3 sec (9.0-12.0) H 07/11/16 19:15 INR 1.7 (<1.1) 07/11/16 19:15 APTT 23.2 sec (22.0-30.0) 07/11/16 19:15 Sodium 143 mmol/L (137-145) 07/18/16 06:37 Potassium 3.3 mmol/L (3.5-5.1) L 07/18/16 06:37 Chloride 114 mmol/L (98-107) H 07/18/16 06:37 Carbon Dioxide 22 mmol/L (22-30) 07/18/16 06:37 Anion Gap 7 mmol/L 07/18/16 06:37 BUN 24 mg/dL (7-17) H 07/18/16 06:37 Creatinine 1.04 mg/dL (0.52-1.04) 07/18/16 06:37 Est GFR (MDRD) Af Amer >60 (>60 ml/min/1.73 sqM) 07/18/16 06:37 Est GFR (MDRD) Non-Af 54 (>60 ml/min/1.73 sqM) 07/18/16 06:37 Glucose 79 mg/dL (74-99) 07/18/16 06:37 POC Glucose (mg/dL) 141 mg/dL (75-99) H 07/18/16 21:13 POC Glu Toe Laster ID 07/18/16 21:[address] Glu mg/dL 94 mg/dL 07/12/16 11:25 Hemoglobin A1c 4.9 % (4.2-6.1) 07/12/16 11:25 Plasma Lactic Acid [place] 1.7 mmol/L (0.7-2.0) 07/12/16 00:15 Calcium 6.8 mg/dL (8.4-10.2) L 07/18/16 06:37 Phosphorus 3.6 mg/dL (2.5-4.5) 07/17/16 06:52 Magnesium 1.5 mg/dL (1.6-2.3) L 07/17/16 06:52 Total Bilirubin 0.9 mg/dL (0.2-1.3) 07/11/16 19:15 AST 30 U/L (14-36) 07/11/16 19:15 ALT 38 U/L (9-52) 07/11/16 19:15 Alkaline Phosphatase 46 U/L (38-126) 07/11/16 19:15 Total Creatine Kinase 30 U/L (30-135) 07/11/16 19:15 CK-MB (CK-2) 0.4 ng/mL (0.0-2.4) 07/11/16 19:15 CK-MB (CK-2) Rel Index 1.3 07/11/16 19:15 Troponin I 0.106 ng/mL (0.000-0.034) H* 07/11/16 19:15 Total Protein 5.2 g/dL (6.3-8.2) L 07/11/16 19:15 Albumin 2.7 g/dL (3.5-5.0) L 07/11/16 19:15 Urine Color Yellow 07/11/16 21:20 Urine Appearance Turbid (Clear) H 07/11/16 21:20 Urine pH 6.0 (5.0-8.0) 07/11/16 21:20 Ur Specific [place] 1.015 (1.001-1.035) 07/11/16 21:20 Urine Protein 3+ (Negative) H 07/11/16 21:20 Urine Glucose (UA) Negative (Negative) 07/11/16 21:20 Urine Ketones Negative (Negative) 07/11/16 21:20 Urine Blood Large (Negative) H 07/11/16 21:20 Urine Nitrate Negative (Negative) 07/11/16 21:20 Urine Bilirubin Negative (Negative) 07/11/16 21:20 Urine Urobilinogen <2.0 mg/dL (<2.0) 07/11/16 21:20 Ur Leukocyte Esterase Large (Negative) H 07/11/16 21:20 Urine RBC 96 /hpf (0-5) H 07/11/16 21:20 Urine WBC >182 /hpf (0-5) H 07/11/16 21:20 Urine WBC Clumps Many /hpf (None) H 07/11/16 21:20 Urine Bacteria Many /hpf (None) H 07/11/16 21:20 Influenza Type A RNA Not Detected (Not Detectd) 07/11/16 21:30 Influenza Type B (PCR) Not Detected (Not Detectd) 07/11/16 21:30 Blood Type A Positive 07/11/16 19:15 Blood Type Recheck No 07/11/16 19:15 Antibody Screen NEGATIVE 07/11/16 19:15 Crossmatch See Detail 07/11/16 19:15 Spec Expiration Date 07/14/2016 - 231407/11/16 19:15 Microbiology 07/11/16 19:15 Blood Blood Culture - Final No Growth after 144 hours 07/12/16 13:30 Urine,Catheterized Urine Culture - Final Assessment and Plan (1) Acute blood loss anemia Narrative/Plan: 60-year-old woman who is a very complex past medical history including the recent difficulty with staphylococcal infection of her hip and high-grade bacteremia. This eventually improved. He now presents with evidence of shock. Concerns of sepsis with her history of multiple bouts of infection. But also to blood loss anemia is etiology of shock because of her marked bleeding from her ileostomy. She's undergone endoscopy today. She was having some bleeding at the site. Surgery has been consulted for cautery of the ileostomy to help her with her blood loss. Apparently this will be happening at our facility. The laboratory did call positive culture and now it appears this may be corrected and were not single positive blood culture. With the negative blood cultures the antibiotic therapy may be discontinued. She is however having difficulties with bleeding from her ileostomy. Biopsy shows ongoing inflammation and ileitis. Surgery and gastroenterology have now proposed a laser photocoagulation with the argon laser to the stoma site to hopefully help with the bleeding of the varices are seen at that area. In the follow-up with Dr. Hudson after discharge Status: Acute (2) Sepsis Status: Acute
[2016-07-18] MEDS: CODEINE 30 MG TAB PO PRN (22:28)
[2016-07-19] MEDS: SODIUM CHLORIDE 0.9% 1,000 ML IV SCH ×3 (00:08→08:31)
[2016-07-19] MEDS: HYDROCORTISONE SUCCINATE 100 MG/2 ML VIAL IV SCH ×3 (00:08→17:20)
[2016-07-19 07:41] LABS: Glucose,Whole Blood 86 mg/dL (75-99)
[2016-07-19] MEDS: INSULIN LISPRO (humaLOG) 300 UNIT/3 ML VIAL SQ SCH ×4 (07:53→21:12)
[2016-07-19] MEDS: MAGNESIUM OXIDE 400 MG TAB PO SCH ×2 (07:55→20:58)
[2016-07-19 08:11] LABS: Anisocytosis Slight; CH 30.3; CHCM 31.8; HCT 26.2 % (34.0-46.0); HDW 3.87; HGB 8.3 gm/dL (11.4-16.0); Hypochromasia Moderate; MCH 30.3 pg (25.0-35.0); MCHC 31.5 g/dL (31.0-37.0); MCV 96.1 fL (80.0-100.0); Mean Platelet Volume 8.5; Poikilocytosis Slight; RBC 2.73 m/uL (3.80-5.40); RDW 16.4 % (11.5-15.5); WBC 5.6 k/uL (3.8-10.6)
[2016-07-19] MEDS: PANTOPRAZOLE 40 MG/10 ML VIAL IVP SCH ×2 (08:31→20:58)
[2016-07-19 08:36] LABS: Anion Gap 9 mmol/L; Blood Urea Nitrogen 22 mg/dL (7-17); Calcium 6.7 mg/dL (8.4-10.2); Carbon Dioxide 19 mmol/L (22-30); Chloride 116 mmol/L (98-107); Glucose 82 mg/dL (74-99); Non-African American GFR(MDRD) >60 (>60 ml/min/1.73 sqM); Potassium 3.1 mmol/L (3.5-5.1); Sodium 144 mmol/L (137-145)
[2016-07-19] MEDS: POTASSIUM CHLORIDE 20 MEQ, LIDOCAINE 2% INJ 20 MG in SODIUM CHLORIDE 0.9% 100 ML IVPB SCH ×3 (09:56→17:57)
[2016-07-19] MEDS ORDERED: IV FLUID CONTINUATION 250 ML IV ONE (10:52)
[2016-07-19] MEDS ORDERED: PROPOFOL 10 MG/ML 20 ML VIAL IV ONE (11:19)
[2016-07-19] MEDS ORDERED: SODIUM CHLORIDE 0.9% 1,000 ML IV ONE (11:30)
--- NOTE | 2016-07-19 11:48 | P.OP ---
Date of Procedure: 07/19/16 Preoperative Diagnosis: Bleeding from ileostomy probably secondary to recurrent Crohn's at the stoma site. Postoperative Diagnosis: Same Procedure(s) Performed: Ileoscopy with argon gas coagulation of the ileostomy stoma Anesthesia: MAC Surgeon: Anuel Barakat Estimated Blood Loss (ml): 2 Pathology: none sent Condition: stable Disposition: same day Indications for Procedure: The patient is a 60-year-old white female who underwent proctocolectomy with ileostomy for Crohn's colitis about 20 years ago so. She is having intermittent episodes of bright red blood per the ileostomy with a large amount. She was readmitted last week with similar episode. She's been evaluated a tertiary center is no other source for her bleeding has been identified ileoscopy biopsies of other then now what looked like a friable stoma and biopsy revealed evidence of recurrent Crohn's in this area. She should've the stoma of many years ago which resulted in resolution of the bleeding at least for about 3-4 years. It was decided to attempt the peak this although patient understands the potential for fibrosis stenosis and recurrent bleeding etc. Informed consent was obtained. Operative Findings: Friable ileostomy stoma with the recurrent Crohn's & some mild bleeding identified with manipulation of the stoma. Description of Procedure: With the patient supine the stoma appliance was removed. The stoma was lubricated. The pediatric colonoscope was then inserted through the stomal opening into the terminal ileum for a distance of about the 20 cm. There was no bleeding. However there was some blood in the stoma bag covering was removed. Does some friability of the stoma specimen manipulated the end wiped with gauze. Stoma at the skin level and just below it was coagulated with the argon gas coagulated mostly involving the mucosa at the stoma site and about half a centimeter deep to it. The patient tolerated procedure well without any evident complications. If she continues to bleed from this site may have to consider revision and re- location of her stoma.
[2016-07-19 12:52] LABS: Glucose,Whole Blood 85 mg/dL (75-99)
--- NOTE | 2016-07-19 13:54 | P.PN ---
Subjective This is a 60-year-old female. Her primary care physician Dr. Recinos. She has a past medical history of Crohn's status post bowel resection followed by ileostomy, hepatitis C treated with Harvoni and in remission followed by Dr. Colon, diabetes mellitus type 2, gastroesophageal reflux disease, hypertension, history of sepsis due to urinary tract infection and kidney stone and ARDS in 2007, bleeding from stoma, anxiety, septic joint and avascular necrosis of the right hip and MRSA bacteremia treated in April 2016 under the care of Dr. Thayer. She gives history of bleeding from her ileostomy that started 4-5 days ago. She states she came into the ER on 2 occasions and was sent home. She states her hemoglobin has been gradually dropping with each visit. She is on chronic prednisone at 40 mg daily for at least 10 years due to her Crohn's disease. Return to [facility] emergency center and her hemoglobin was found to be 6.3. She is status post transfusion of 3 units of packed RBCs and 1 -1/2 L of fluid in the ER for low blood pressure. She subsequently was started on norepinephrine and transferred to the intensive care unit. Urine output has been adequate. Norepinephrine is being weaned she is currently at [address] Cabezas is on consult for intensive care management, Dr. Thayer for urinary tract infection, sepsis and MRSA bacteremia, Dr. Colon for GI bleed and Dr. garcia for GI bleed. She has been started on daptomycin and echocardiogram ordered. Gastroenterology is planning for EGD and lower scope tomorrow. 07/13: She is scheduled today for upper and lower endoscopy. Insulin drip was off and patient will be transitioned to Humalog scale only at this time due to her nothing by mouth status. Hemoglobin is stable at 8.1, platelet count has dropped from 206-88. BUN improved to 31 and creatinine 1.7. Blood cultures now showing no growth at 24 hours. Urine culture is in progress. She is off norepinephrine. 07/16: Patient is now seen on the pediatric unit. She has been hemodynamically stable. She continues to have intermittent bleeding from her stoma especially with minimal activity. She states then she feels lightheaded. She has received a total of [address] Barakat to talk to Dr. Hudson did advise plan from here. Repeat chest x-ray shows no acute pulmonary process. She is status post EGD and ileoscopy with snare polypectomy performed on July [address] Hudson. Upper endoscopy was within normal limits no evidence of esophagitis, peptic ulcer disease or esophageal varices. Ileoscopy revealed active oozing at the ileostomy site. 60 cm of the distal ileum appeared normal except for 1 cm serrated polyp at 10 cm from the ileostomy status post snare polypectomy. Recommendations at that time were for small bowel capsule endoscopy. Hemoglobin today is 8.0. BUN 24 and creatinine 1.07. Echocardiogram reveals trace mitral regurgitation, mild tricuspid regurgitation , severe concentric left ventricle hypertrophy, EF 55-60%, cannot rule out vegetation. Blood culture is negative at 96 hours and daptomycin will be discontinued. 07/17: Repeat hemoglobin 9.4. We are currently waiting for capsule endoscopy report. Patient may require argon gas coagulation of the stoma. Pathology report of ileum biopsy is acute ileitis and inflamed granulation tissue. 07/18: Hemoglobin 8.2. Potassium 3.2 and will be replaced. She is scheduled for for ileoscopy and argon gas coagulation of the stoma tomorrow with Dr. Barakat. 07/19:Hemoglobin 8.3. Potassium 3.1 and will be replaced. She is status post ileoscopy and argon gas coagulation of the stoma today with Dr. Barakat. Objective - Vital Signs Vital signs: Vital Signs Temp 98.3 F 07/19/16 08:43 Pulse 57 L 07/19/16 08:43 Resp 18 07/19/16 08:43 BP 147/74 07/19/16 08:43 Pulse Ox 100 07/19/16 08:43 Intake & Output 07/18/16 07/19/16 07/19/16 18:59 06:59 18:59 Output Total 750 1350 Balance -750 -1350 Weight 68.3 kg Output: Urine 480 550 Stool 270 800 Other: Voiding Method Bedside Commode # Voids 1 1 # Bowel Movements 1 - Exam Gen: This is a 60-year-old female. She is sitting up in bed and appears to be in no acute distress while at rest. HEENT: Head is atraumatic, normocephalic. Pupils equal, round. Sclerae is anicteric. Oral mucous membranes are dry. No thrush noted. NECK: Supple. No JVD. No lymphadenopathy. No thyromegaly. LUNGS: Clear to auscultation. No wheezes or rhonchi. No intercostal retractions. HEART: Regular rate and rhythm. No murmur. ABDOMEN: Soft. Bowel sounds are present. No masses. No tenderness. Right- sided ileostomy with no active bleeding. EXTREMITIES: No pedal edema. No calf tenderness. NEUROLOGICAL: Patient is awake, alert and oriented x3. Cranial nerves 2 through 12 are grossly intact. - Labs CBC & Chem 7: 07/19/16 06:50 07/19/16 06:50 Labs: Abnormal Lab Results - Last 24 Hours (Table) 07/18/16 07/18/16 07/19/16 Range/Units 12:40 21:13 06:50 RBC 2.73 L (3.80-5.40) m/uL Hgb 8.3 L (11.4-16.0) gm/dL Hct 26.2 L (34.0-46.0) % RDW 16.4 H (11.5-15.5) % Plt Count 109 L (150-450) k/uL Potassium (3.5-5.1) mmol/L Chloride (98-107) mmol/L Carbon Dioxide (22-30) mmol/L BUN (7-17) mg/dL POC Glucose (mg/dL) 118 H 141 H (75-99) mg/dL Calcium (8.4-10.2) mg/dL 07/19/16 Range/Units 06:50 RBC (3.80-5.40) m/uL Hgb (11.4-16.0) gm/dL Hct (34.0-46.0) % RDW (11.5-15.5) % Plt Count (150-450) k/uL Potassium 3.1 L (3.5-5.1) mmol/L Chloride 116 H (98-107) mmol/L Carbon Dioxide 19 L (22-30) mmol/L BUN 22 H (7-17) mg/dL POC Glucose (mg/dL) (75-99) mg/dL Calcium 6.7 L (8.4-10.2) mg/dL Assessment and Plan Plan: 1. Acute GI bleed from ileostomy probably secondary to recurrent Crohn's at the stoma site, general surgeon, Dr. Barakat and gastroenterology, Dr. Stanton are on consult. Upper and lower endoscopy as above. Endoscopy Pending. Status post Argon Gas Coagulation of the Stoma. 2. Acute blood loss anemia and hypovolemic shock status post transfusion of packed RBCs and IV fluid boluses. Patient is off vasopressors. 3. History of right hip septic joint and avascular necrosis with sepsis, septicemia and MRSA bacteremia in April 2016 with negative repeat blood cultures. Dr. Thayer is on consult. Daptomycin will be discontinued. Echocardiogram as above. 4. Acute kidney injury due to acute blood loss anemia presenting with BUN of 38 and creatinine 3.11. Baseline creatinine is around 1. Stable. 5. Diabetes mellitus type 2. Patient is on Tradjenta at home. Humalog scale for now. 6. Hypertension, not currently on medication. 4. Crohn's disease status post bowel resection and ileostomy, stable. Patient is normally on prednisone 40 mg daily. Currently on Solu-Cortef 100 mg IV every 8 hours. 5. Generalized anxiety disorder. Continue Xanax 0.5 mg at bedtime. 6. History of hepatitis C status post Harvoni treatment followed by rianna Hicks. 7. Gastro intestinal prophylaxis. Continue Protonix 40 mg twice daily. 8. DVT prophylaxis. SCDs and CRISTHIAN hose. 9. Anemia of chronic disease. Discharge plan: Return home with homecare Impression and plan of care have been directed as dictated by the signing physician. Glenis Hernandez nurse practitioner acting as scribe for signing physician. Time with Patient: Greater than 30
[2016-07-19] MEDS: CODEINE 30 MG TAB PO PRN ×2 (15:39→23:09)
[2016-07-19 17:04] LABS: Glucose,Whole Blood 87 mg/dL (75-99)
[2016-07-19 21:18] LABS: Glucose,Whole Blood 125 mg/dL (75-99)
--- NOTE | 2016-07-19 21:58 | P.PN ---
Subjective Principal diagnosis: hypovolemic shock from blood loss This is a 60-year-old female. She is well-known to ID service as she was treated during her admission April 24 - 2015, septic right hip joint and avascular necrosis and MRSA bacteremia. She was discharged to [facility] with Zyvox to complete a 6 week course. Unsure if patient had follow-up. She also has a past medical history of Crohn's status post bowel resection followed by ileostomy on chronic prednisone, hepatitis C treated with Sergio and in remission followed by Dr. Colon, diabetes mellitus type 2, gastroesophageal reflux disease, hypertension, history of sepsis due to urinary tract infection and kidney stone and ARDS in 2007, bleeding from stoma, anxiety, She gives history of bleeding from her ileostomy that started 4-5 days ago. She states she came into the ER on 2 occasions and was sent home. She states her hemoglobin has been gradually dropping with each visit. She returned to [facility] emergency center and her hemoglobin was found to be 6.3. She is status post transfusion of 3 units of packed RBCs and 1-1/2 L of fluid in the ER for low blood pressure. She subsequently was started on norepinephrine and transferred to the intensive care unit. Urine output has been adequate. Norepinephrine is being weaned she is currently at [address] Cabezas is on consult for intensive care management, Dr. Colon for GI bleed and Dr. Barakat for GI bleed. preliminary blood cultures are negative it is thought that she was having acute blood loss anemia is etiology of her hypotension but with her history of multiple episodes of bacteremia antibiotic therapy has been started Cultures are negative so far. He has been treated with daptomycin with concerns to her prior history of staphylococcal sepsis. Objective - Vital Signs Vital signs: Vital Signs Temp 98.6 F 07/19/16 20:20 Pulse 55 L 07/19/16 20:20 Resp 16 07/19/16 20:20 BP 155/69 07/19/16 20:20 Pulse Ox 100 07/19/16 20:20 Intake & Output 07/19/16 07/19/16 07/20/16 06:59 18:59 06:59 Intake Total 100 Output Total 1350 700 480 Balance -1350 -600 -480 Intake: IV 100 Output: Gastric Drainage 400 Urine 550 300 180 Stool 800 300 Other: Voiding Method Bedside Commode # Voids 1 1 - Exam Gen: This is a 60-year-old female. She is sitting up in bed and appears to be in no acute distress while at rest.fells much better HEENT: Head is atraumatic, normocephalic. Pupils equal, round. Sclerae is anicteric. Oral mucous membranes are dry. No thrush noted. NECK: Supple. No JVD. No lymphadenopathy. No thyromegaly. LUNGS: Clear to auscultation. No wheezes or rhonchi. No intercostal retractions. HEART: Regular rate and rhythm. No murmur. ABDOMEN: Soft. Bowel sounds are present. No masses. No tenderness. Right- sided ileostomy with liquid stool with evidence some blood mixed with the stool this evening. EXTREMITIES: No pedal edema. No calf tenderness. NEUROLOGICAL: Patient is awake, alert and oriented x3. - Labs CBC & Chem 7: 07/19/16 06:50 07/19/16 06:50 Labs: Abnormal Lab Results - Last 24 Hours (Table) 07/19/16 07/19/16 07/19/16 Range/Units 06:50 06:50 21:05 RBC 2.73 L (3.80-5.40) m/uL Hgb 8.3 L (11.4-16.0) gm/dL Hct 26.2 L (34.0-46.0) % RDW 16.4 H (11.5-15.5) % Plt Count 109 L (150-450) k/uL Potassium 3.1 L (3.5-5.1) mmol/L Chloride 116 H (98-107) mmol/L Carbon Dioxide 19 L (22-30) mmol/L BUN 22 H (7-17) mg/dL POC Glucose (mg/dL) 125 H (75-99) mg/dL Calcium 6.7 L (8.4-10.2) mg/dL Laboratory Results WBC 5.6 k/uL (3.8-10.6) 07/19/16 06:50 RBC 2.73 m/uL (3.80-5.40) L 07/19/16 06:50 Hgb 8.3 gm/dL (11.4-16.0) L 07/19/16 06:50 Hct 26.2 % (34.0-46.0) L 07/19/16 06:50 MCV 96.1 fL (80.0-100.0) 07/19/16 06:50 MCH 30.3 pg (25.0-35.0) 07/19/16 06:50 MCHC 31.5 g/dL (31.0-37.0) 07/19/16 06:50 RDW 16.4 % (11.5-15.5) H 07/19/16 06:50 Plt Count 109 k/uL (150-450) L 07/19/16 06:50 Neutrophils % 82 % 07/17/16 06:59 Lymphocytes % 11 % 07/17/16 06:59 Monocytes % 5 % 07/17/16 06:59 Eosinophils % 0 % 07/17/16 06:59 Basophils % 0 % 07/17/16 06:59 Neutrophils # 4.6 k/uL (1.3-7.7) 07/17/16 06:59 Lymphocytes # 0.6 k/uL (1.0-4.8) L 07/17/16 06:59 Monocytes # 0.3 k/uL (0-1.0) 07/17/16 06:59 Eosinophils # 0.0 k/uL (0-0.7) 07/17/16 06:59 Basophils # 0.0 k/uL (0-0.2) 07/17/16 06:59 Manual Slide Review Performed 07/13/16 05:10 Toxic Granulation Present 07/12/16 15:00 Polychromasia Present 07/12/16 15:00 Hypochromasia Moderate 07/19/16 06:50 Poikilocytosis Slight 07/19/16 06:50 Poikilocytosis (manual Present 07/12/16 15:00 Anisocytosis Slight 07/19/16 06:50 Macrocytosis Slight 07/17/16 06:59 PT 16.3 sec (9.0-12.0) H 07/11/16 19:15 INR 1.7 (<1.1) 07/11/16 19:15 APTT 23.2 sec (22.0-30.0) 07/11/16 19:15 Sodium 144 mmol/L (137-145) 07/19/16 06:50 Potassium 3.1 mmol/L (3.5-5.1) L 07/19/16 06:50 Chloride 116 mmol/L (98-107) H 07/19/16 06:50 Carbon Dioxide 19 mmol/L (22-30) L 07/19/16 06:50 Anion Gap 9 mmol/L 07/19/16 06:50 BUN 22 mg/dL (7-17) H 07/19/16 06:50 Creatinine 0.88 mg/dL (0.52-1.04) 07/19/16 06:50 Est GFR (MDRD) Af Amer >60 (>60 ml/min/1.73 sqM) 07/19/16 06:50 Est GFR (MDRD) Non-Af >60 (>60 ml/min/1.73 sqM) 07/19/16 06:50 Glucose 82 mg/dL (74-99) 07/19/16 06:50 POC Glucose (mg/dL) 125 mg/dL (75-99) H 07/19/16 21:05 POC Glu Watch Inspector Final Movement ID Ирина Lange 07/19/16 21:[address] Glu mg/dL 94 mg/dL 07/12/16 11:25 Hemoglobin A1c 4.9 % (4.2-6.1) 07/12/16 11:25 Plasma Lactic Acid [place] 1.7 mmol/L (0.7-2.0) 07/12/16 00:15 Calcium 6.7 mg/dL (8.4-10.2) L 07/19/16 06:50 Phosphorus 3.6 mg/dL (2.5-4.5) 07/17/16 06:52 Magnesium 1.5 mg/dL (1.6-2.3) L 07/17/16 06:52 Total Bilirubin 0.9 mg/dL (0.2-1.3) 07/11/16 19:15 AST 30 U/L (14-36) 07/11/16 19:15 ALT 38 U/L (9-52) 07/11/16 19:15 Alkaline Phosphatase 46 U/L (38-126) 07/11/16 19:15 Total Creatine Kinase 30 U/L (30-135) 07/11/16 19:15 CK-MB (CK-2) 0.4 ng/mL (0.0-2.4) 07/11/16 19:15 CK-MB (CK-2) Rel Index 1.3 07/11/16 19:15 Troponin I 0.106 ng/mL (0.000-0.034) H* 07/11/16 19:15 Total Protein 5.2 g/dL (6.3-8.2) L 07/11/16 19:15 Albumin 2.7 g/dL (3.5-5.0) L 07/11/16 19:15 Urine Color Yellow 07/11/16 21:20 Urine Appearance Turbid (Clear) H 07/11/16 21:20 Urine pH 6.0 (5.0-8.0) 07/11/16 21:20 Ur Specific [place] 1.015 (1.001-1.035) 07/11/16 21:20 Urine Protein 3+ (Negative) H 07/11/16 21:20 Urine Glucose (UA) Negative (Negative) 07/11/16 21:20 Urine Ketones Negative (Negative) 07/11/16 21:20 Urine Blood Large (Negative) H 07/11/16 21:20 Urine Nitrate Negative (Negative) 07/11/16 21:20 Urine Bilirubin Negative (Negative) 07/11/16 21:20 Urine Urobilinogen <2.0 mg/dL (<2.0) 07/11/16 21:20 Ur Leukocyte Esterase Large (Negative) H 07/11/16 21:20 Urine RBC 96 /hpf (0-5) H 07/11/16 21:20 Urine WBC >182 /hpf (0-5) H 07/11/16 21:20 Urine WBC Clumps Many /hpf (None) H 07/11/16 21:20 Urine Bacteria Many /hpf (None) H 07/11/16 21:20 Influenza Type A RNA Not Detected (Not Detectd) 07/11/16 21:30 Influenza Type B (PCR) Not Detected (Not Detectd) 07/11/16 21:30 Blood Type A Positive 07/11/16 19:15 Blood Type Recheck No 07/11/16 19:15 Antibody Screen NEGATIVE 07/11/16 19:15 Crossmatch See Detail 07/11/16 19:15 Spec Expiration Date 07/14/2016 9847 07/11/16 19:15 Microbiology 07/11/16 19:15 Blood Blood Culture - Final No Growth after 144 hours 07/12/16 13:30 Urine,Catheterized Urine Culture - Final Assessment and Plan (1) Acute blood loss anemia Narrative/Plan: 60-year-old woman who is a very complex past medical history including the recent difficulty with staphylococcal infection of her hip and high-grade bacteremia. This eventually improved. He now presents with evidence of shock. Concerns of sepsis with her history of multiple bouts of infection. But also to blood loss anemia is etiology of shock because of her marked bleeding from her ileostomy. She's undergone endoscopy today. She was having some bleeding at the site. Surgery has been consulted for cautery of the ileostomy to help her with her blood loss. Apparently this will be happening at our facility. The laboratory did call positive culture and now it appears this may be corrected and were not single positive blood culture. With the negative blood cultures the antibiotic therapy may be discontinued. She is however having difficulties with bleeding from her ileostomy. Biopsy shows ongoing inflammation and ileitis. Surgery and gastroenterology have now decided that laser photocoagulation therapy will be helpful. This is to be performed today. Hemoglobin has decreased and may need further transfusion. Status: Acute (2) Sepsis Status: Acute
[2016-07-20] MEDS: HYDROCORTISONE SUCCINATE 100 MG/2 ML VIAL IV SCH ×3 (00:15→17:14)
[2016-07-20] MEDS: SODIUM CHLORIDE 0.9% 1,000 ML IV SCH ×2 (03:14→10:11)
[2016-07-20 07:22] LABS: Glucose,Whole Blood 98 mg/dL (75-99)
[2016-07-20] MEDS: INSULIN LISPRO (humaLOG) 300 UNIT/3 ML VIAL SQ SCH ×2 (07:57→12:54)
[2016-07-20 08:48] LABS: Anisocytosis Slight; CH 30.8; CHCM 33.4; HCT 28.2 % (34.0-46.0); HDW 4.08; HGB 9.1 gm/dL (11.4-16.0); Hypochromasia Slight; MCH 29.9 pg (25.0-35.0); MCHC 32.1 g/dL (31.0-37.0); MCV 93.1 fL (80.0-100.0); Mean Platelet Volume 8.1; Poikilocytosis Moderate; RBC 3.03 m/uL (3.80-5.40); RDW 16.6 % (11.5-15.5); WBC 6.4 k/uL (3.8-10.6)
[2016-07-20 09:05] LABS: Anion Gap 9 mmol/L; Blood Urea Nitrogen 19 mg/dL (7-17); Calcium 6.7 mg/dL (8.4-10.2); Carbon Dioxide 22 mmol/L (22-30); Chloride 113 mmol/L (98-107); Glucose 84 mg/dL (74-99); Non-African American GFR(MDRD) >60 (>60 ml/min/1.73 sqM); Sodium 144 mmol/L (137-145)
[2016-07-20 09:08] LABS: Potassium 2.9 mmol/L (3.5-5.1)
[2016-07-20] MEDS: MAGNESIUM OXIDE 400 MG TAB PO SCH (09:21)
[2016-07-20] MEDS: PANTOPRAZOLE 40 MG/10 ML VIAL IVP SCH (09:21)
[2016-07-20] MEDS ORDERED: POTASSIUM CHLORIDE ER 20 MEQ TAB.ER PO SCH (09:30)
[2016-07-20] MEDS: POTASSIUM CHLORIDE ER 20 MEQ TAB.ER PO SCH ×2 (10:16→12:50)
[2016-07-20] MEDS: POTASSIUM CHLORIDE 20 MEQ, LIDOCAINE 2% INJ 20 MG in SODIUM CHLORIDE 0.9% 100 ML IVPB SCH ×2 (10:17→12:50)
[2016-07-20 12:26] LABS: Glucose,Whole Blood 106 mg/dL (75-99)
--- NOTE | 2016-07-20 12:52 | P.PN ---
Progress Note - Text Patient is stable. He reports no active bleeding since having argon gas coagulation of the stoma yesterday. Hemoglobin is stable at 9.1. Abdomen is soft. Stool is brown and from the ileostomy. In Impression no active bleeding from the stoma last 24 hours. Suspect she may have intermittent bleeding until she developed enough for scarring in the area. She will follow up as an outpatient.
--- NOTE | 2016-07-20 14:14 | P.DS ---
Providers Date of admission: 07/11/16 22:23 Expected date of discharge: 07/20/16 Attending physician: Mahnaz Conner Consults: 07/11/16 22:24 Consult Physician Routine Consulting Provider: Moi Thayer Consult Reason/Comments: Urinary tract infection, sepsis Do you want consulting provider notified?: Yes 07/11/16 22:25 Consult Physician Routine Consulting Provider: Anuel Barakat Consult Reason/Comments: GI bleed Do you want consulting provider notified?: Yes Primary care physician: Cooley Dickinson Hospital Course: This is a 60-year-old female. Her primary care physician Dr. Recinos. She has a past medical history of Crohn's status post bowel resection followed by ileostomy, hepatitis C treated with Harvoni and in remission followed by Dr. Colon, diabetes mellitus type 2, gastroesophageal reflux disease, hypertension, history of sepsis due to urinary tract infection and kidney stone and ARDS in 2007, bleeding from stoma, anxiety, septic joint and avascular necrosis of the right hip and MRSA bacteremia treated in April 2016 under the care of Dr. Thayer. She gives history of bleeding from her ileostomy that started 4-5 days ago. She states she came into the ER on 2 occasions and was sent home. She states her hemoglobin has been gradually dropping with each visit. She is on chronic prednisone at 40 mg daily for at least 10 years due to her Crohn's disease. Return to [facility] emergency center and her hemoglobin was found to be 6.3. She is status post transfusion of 3 units of packed RBCs and 1 -1/2 L of fluid in the ER for low blood pressure. She subsequently was started on norepinephrine and transferred to the intensive care unit. Urine output has been adequate. Norepinephrine is being weaned she is currently at [address] Cabezas is on consult for intensive care management, Dr. Thayer for urinary tract infection, sepsis and MRSA bacteremia, Dr. Colon for GI bleed and Dr. garcia for GI bleed. She has been started on daptomycin and echocardiogram ordered. Gastroenterology is planning for EGD and lower scope tomorrow. 07/13: She is scheduled today for upper and lower endoscopy. Insulin drip was off and patient will be transitioned to Humalog scale only at this time due to her nothing by mouth status. Hemoglobin is stable at 8.1, platelet count has dropped from 206-88. BUN improved to 31 and creatinine 1.7. Blood cultures now showing no growth at 24 hours. Urine culture is in progress. She is off norepinephrine. 07/16: Patient is now seen on the pediatric unit. She has been hemodynamically stable. She continues to have intermittent bleeding from her stoma especially with minimal activity. She states then she feels lightheaded. She has received a total of [address] Barakat to talk to Dr. Hudson did advise plan from here. Repeat chest x-ray shows no acute pulmonary process. She is status post EGD and ileoscopy with snare polypectomy performed on July [address] Hudson. Upper endoscopy was within normal limits no evidence of esophagitis, peptic ulcer disease or esophageal varices. Ileoscopy revealed active oozing at the ileostomy site. 60 cm of the distal ileum appeared normal except for 1 cm serrated polyp at 10 cm from the ileostomy status post snare polypectomy. Recommendations at that time were for small bowel capsule endoscopy. Hemoglobin today is 8.0. BUN 24 and creatinine 1.07. Echocardiogram reveals trace mitral regurgitation, mild tricuspid regurgitation , severe concentric left ventricle hypertrophy, EF 55-60%, cannot rule out vegetation. Blood culture is negative at 96 hours and daptomycin will be discontinued. 07/17: Repeat hemoglobin 9.4. We are currently waiting for capsule endoscopy report. Patient may require argon gas coagulation of the stoma. Pathology report of ileum biopsy is acute ileitis and inflamed granulation tissue. 07/18: Hemoglobin 8.2. Potassium 3.2 and will be replaced. She is scheduled for for ileoscopy and argon gas coagulation of the stoma tomorrow with Dr. Barakat. 07/19:Hemoglobin 8.3. Potassium 3.1 and will be replaced. She is status post ileoscopy and argon gas coagulation of the stoma today with Dr. Barakat. 07/20: Hemoglobin 9.1. Potassium 2.9 will be replaced. Scheduled potassium has been ordered as well. Repeat potassium to be drawn at 3 PM. Patient will be discharged home today in stable condition. Patient has been instructed to continue prednisone 20 mg daily until her follow-up with Dr. Stanton. Discharge diagnoses: 1. Acute GI bleed from ileostomy probably secondary to recurrent Crohn's at the stoma site 2. Acute blood loss anemia and hypovolemic shock status post transfusion of packed RBCs and IV fluid boluses. 3. History of right hip septic joint and avascular necrosis with sepsis, septicemia and MRSA bacteremia in April 2016 with negative repeat blood cultures. 4. Acute kidney injury due to acute blood loss anemia 5. Diabetes mellitus type 2. 6. Hypertensio 4. Crohn's disease status post bowel resection and ileostomy, stable. 5. Generalized anxiety disorder. 6. History of hepatitis C status post Harvoni treatment 7. Anemia of chronic disease. Discharge plan: Return home with homecare Impression and plan of care have been directed as dictated by the signing physician. Glenis Hernandez nurse practitioner acting as scribe for signing physician. Patient Condition at Discharge: Good Plan - Discharge Summary New Discharge Prescriptions: Pantoprazole Sodium [Protonix] 40 mg PO DAILY #30 tablet. Potassium Chloride ER [K-Dur 20] 40 meq PO DAILY #14 [email or web address] Discharge Medication List predniSONE 20 mg PO DAILY 11/07/13 [History] Ferrous Sulfate [Iron (65 MG Elemental)] 325 mg PO BID 04/23/16 [History] ALPRAZolam [Xanax] 0.25 mg PO HS PRN 07/06/16 [History] Codeine Sulfate 120 mg PO TID PRN 07/06/16 [History] Albuterol Sulfate [Proair Hfa] 1 - 2 puff INHALATION RT-Q6H PRN 07/11/16 [ History] Linagliptin [Tradjenta] 5 mg PO DAILY 07/11/16 [History] Magnesium Oxide [Mag-Ox] 400 mg PO BID #0 tab 07/20/16 [Rx] Pantoprazole Sodium [Protonix] 40 mg PO DAILY #30 tablet. 07/20/16 [Rx] Potassium Chloride ER [K-Dur 20] 40 meq PO DAILY #14 [email or web address] 07/20/16 [Rx] Follow up Appointment(s)/Referral(s): Maira Stanton MD [STAFF PHYSICIAN] - 07/30/16 2:00 pm Anuel Barakat MD [STAFF PHYSICIAN] - 07/26/16 1:40 pm Fab Recinos DO [Primary Care Provider] - 1 Week ( Office for Dr. Recinos to call patient with appointment time.) Discharge Disposition: HOME SELF-CARE
[2016-07-20 16:11] VITALS: BP 160/85; PULSE 61; RESP 19; TEMP 98.5
[2016-07-20] MEDS ORDERED: PANTOPRAZOLE 40 MG TABLET PO SCH (21:00)
--- NOTE | 2016-07-20 22:28 | P.PN ---
Subjective Principal diagnosis: hypovolemic shock from blood loss This is a 60-year-old female. She is well-known to ID service as she was treated during her admission April 24 - 2015, septic right hip joint and avascular necrosis and MRSA bacteremia. She was discharged to [facility] with Zyvox to complete a 6 week course. Unsure if patient had follow-up. She also has a past medical history of Crohn's status post bowel resection followed by ileostomy on chronic prednisone, hepatitis C treated with Sergio and in remission followed by Dr. Colon, diabetes mellitus type 2, gastroesophageal reflux disease, hypertension, history of sepsis due to urinary tract infection and kidney stone and ARDS in 2007, bleeding from stoma, anxiety, She gives history of bleeding from her ileostomy that started 4-5 days ago. She states she came into the ER on 2 occasions and was sent home. She states her hemoglobin has been gradually dropping with each visit. She returned to [facility] emergency center and her hemoglobin was found to be 6.3. She is status post transfusion of 3 units of packed RBCs and 1-1/2 L of fluid in the ER for low blood pressure. She subsequently was started on norepinephrine and transferred to the intensive care unit. Urine output has been adequate. Norepinephrine is being weaned she is currently at [address] Cabezas is on consult for intensive care management, Dr. Colon for GI bleed and Dr. Barakat for GI bleed. preliminary blood cultures are negative it is thought that she was having acute blood loss anemia is etiology of her hypotension but with her history of multiple episodes of bacteremia antibiotic therapy has been started Cultures are negative so far. He has been treated with daptomycin with concerns to her prior history of staphylococcal sepsis. Objective - Vital Signs Vital signs: Vital Signs Temp 98.5 F 07/20/16 16:05 Pulse 61 07/20/16 16:05 Resp 19 07/20/16 16:05 BP 160/85 07/20/16 16:05 Pulse Ox 100 07/20/16 16:05 Intake & Output 07/20/16 07/20/16 07/21/16 06:59 18:59 06:59 Intake Total 980 Output Total 1230 1 Balance -250 -1 Intake: IV 980 Sodium Chloride 0.9% 1, 980 000 ml @ 75 mls/hr IV . [id number] DARIA Rx#:[id number] Output: Urine 780 1 Stool 450 Other: Voiding Method Bedside Commode # Voids 1 1 - Exam Gen: This is a 60-year-old female. She is sitting up in bed and appears to be in no acute distress while at rest.fells much better HEENT: Head is atraumatic, normocephalic. Pupils equal, round. Sclerae is anicteric. Oral mucous membranes are dry. No thrush noted. NECK: Supple. No JVD. No lymphadenopathy. No thyromegaly. LUNGS: Clear to auscultation. No wheezes or rhonchi. No intercostal retractions. HEART: Regular rate and rhythm. No murmur. ABDOMEN: Soft. Bowel sounds are present. No masses. No tenderness. Right- sided ileostomy with liquid stool with evidence some blood mixed with the stool today EXTREMITIES: No pedal edema. No calf tenderness. NEUROLOGICAL: Patient is awake, alert and oriented x3. - Labs CBC & Chem 7: 07/20/16 08:19 07/20/16 15:13 Labs: Abnormal Lab Results - Last 24 Hours (Table) 07/20/16 07/20/16 07/20/16 Range/Units 08:19 08:19 08:19 RBC 3.03 L (3.80-5.40) m/uL Hgb 9.1 L (11.4-16.0) gm/dL Hct 28.2 L (34.0-46.0) % RDW 16.6 H (11.5-15.5) % Plt Count 115 L (150-450) k/uL Potassium 2.9 L* (3.5-5.1) mmol/L Chloride 113 H (98-107) mmol/L BUN 19 H (7-17) mg/dL POC Glucose (mg/dL) (75-99) mg/dL Calcium 6.7 L (8.4-10.2) mg/dL Magnesium 1.2 L (1.6-2.3) mg/dL 07/20/16 Range/Units 12:04 RBC (3.80-5.40) m/uL Hgb (11.4-16.0) gm/dL Hct (34.0-46.0) % RDW (11.5-15.5) % Plt Count (150-450) k/uL Potassium (3.5-5.1) mmol/L Chloride (98-107) mmol/L BUN (7-17) mg/dL POC Glucose (mg/dL) 106 H (75-99) mg/dL Calcium (8.4-10.2) mg/dL Magnesium (1.6-2.3) mg/dL Laboratory Results WBC 6.4 k/uL (3.8-10.6) 07/20/16 08:19 RBC 3.03 m/uL (3.80-5.40) L 07/20/16 08:19 Hgb 9.1 gm/dL (11.4-16.0) L 07/20/16 08:19 Hct 28.2 % (34.0-46.0) L 07/20/16 08:19 MCV 93.1 fL (80.0-100.0) 07/20/16 08:19 MCH 29.9 pg (25.0-35.0) 07/20/16 08:19 MCHC 32.1 g/dL (31.0-37.0) 07/20/16 08:19 RDW 16.6 % (11.5-15.5) H 07/20/16 08:19 Plt Count 115 k/uL (150-450) L 07/20/16 08:19 Neutrophils % 82 % 07/17/16 06:59 Lymphocytes % 11 % 07/17/16 06:59 Monocytes % 5 % 07/17/16 06:59 Eosinophils % 0 % 07/17/16 06:59 Basophils % 0 % 07/17/16 06:59 Neutrophils # 4.6 k/uL (1.3-7.7) 07/17/16 06:59 Lymphocytes # 0.6 k/uL (1.0-4.8) L 07/17/16 06:59 Monocytes # 0.3 k/uL (0-1.0) 07/17/16 06:59 Eosinophils # 0.0 k/uL (0-0.7) 07/17/16 06:59 Basophils # 0.0 k/uL (0-0.2) 07/17/16 06:59 Manual Slide Review Performed 07/13/16 05:10 Toxic Granulation Present 07/12/16 15:00 Polychromasia Present 07/12/16 15:00 Hypochromasia Slight 07/20/16 08:19 Poikilocytosis Moderate 07/20/16 08:19 Poikilocytosis (manual Present 07/12/16 15:00 Anisocytosis Slight 07/20/16 08:19 Macrocytosis Slight 07/17/16 06:59 PT 16.3 sec (9.0-12.0) H 07/11/16 19:15 INR 1.7 (<1.1) 07/11/16 19:15 APTT 23.2 sec (22.0-30.0) 07/11/16 19:15 Sodium 144 mmol/L (137-145) 07/20/16 08:19 Potassium 4.3 mmol/L (3.5-5.1) 07/20/16 15:13 Chloride 113 mmol/L (98-107) H 07/20/16 08:19 Carbon Dioxide 22 mmol/L (22-30) 07/20/16 08:19 Anion Gap 9 mmol/L 07/20/16 08:19 BUN 19 mg/dL (7-17) H 07/20/16 08:19 Creatinine 0.95 mg/dL (0.52-1.04) 07/20/16 08:19 Est GFR (MDRD) Af Amer >60 (>60 ml/min/1.73 sqM) 07/20/16 08:19 Est GFR (MDRD) Non-Af >60 (>60 ml/min/1.73 sqM) 07/20/16 08:19 Glucose 84 mg/dL (74-99) 07/20/16 08:19 POC Glucose (mg/dL) 106 mg/dL (75-99) H 07/20/16 12:04 POC Glu Professor Of Graphic Design ID Zabrina, Margie 07/20/16 12:[address] Glu mg/dL 94 mg/dL 07/12/16 11:25 Hemoglobin A1c 4.9 % (4.2-6.1) 07/12/16 11:25 Plasma Lactic Acid Catrachito 1.7 mmol/L (0.7-2.0) 07/12/16 00:15 Calcium 6.7 mg/dL (8.4-10.2) L 07/20/16 08:19 Phosphorus 3.6 mg/dL (2.5-4.5) 07/17/16 06:52 Magnesium 1.2 mg/dL (1.6-2.3) L 07/20/16 08:19 Total Bilirubin 0.9 mg/dL (0.2-1.3) 07/11/16 19:15 AST 30 U/L (14-36) 07/11/16 19:15 ALT 38 U/L (9-52) 07/11/16 19:15 Alkaline Phosphatase 46 U/L (38-126) 07/11/16 19:15 Total Creatine Kinase 30 U/L (30-135) 07/11/16 19:15 CK-MB (CK-2) 0.4 ng/mL (0.0-2.4) 07/11/16 19:15 CK-MB (CK-2) Rel Index 1.3 07/11/16 19:15 Troponin I 0.106 ng/mL (0.000-0.034) H* 07/11/16 19:15 Total Protein 5.2 g/dL (6.3-8.2) L 07/11/16 19:15 Albumin 2.7 g/dL (3.5-5.0) L 07/11/16 19:15 Urine Color Yellow 07/11/16 21:20 Urine Appearance Turbid (Clear) H 07/11/16 21:20 Urine pH 6.0 (5.0-8.0) 07/11/16 21:20 Ur Specific Lambert 1.015 (1.001-1.035) 07/11/16 21:20 Urine Protein 3+ (Negative) H 07/11/16 21:20 Urine Glucose (UA) Negative (Negative) 07/11/16 21:20 Urine Ketones Negative (Negative) 07/11/16 21:20 Urine Blood Large (Negative) H 07/11/16 21:20 Urine Nitrate Negative (Negative) 07/11/16 21:20 Urine Bilirubin Negative (Negative) 07/11/16 21:20 Urine Urobilinogen <2.0 mg/dL (<2.0) 07/11/16 21:20 Ur Leukocyte Esterase Large (Negative) H 07/11/16 21:20 Urine RBC 96 /hpf (0-5) H 07/11/16 21:20 Urine WBC >182 /hpf (0-5) H 07/11/16 21:20 Urine WBC Clumps Many /hpf (None) H 07/11/16 21:20 Urine Bacteria Many /hpf (None) H 07/11/16 21:20 Influenza Type A RNA Not Detected (Not Detectd) 07/11/16 21:30 Influenza Type B (PCR) Not Detected (Not Detectd) 07/11/16 21:30 Blood Type A Positive 07/11/16 19:15 Blood Type Recheck No 07/11/16 19:15 Antibody Screen NEGATIVE 07/11/16 19:15 Crossmatch See Detail 07/11/16 19:15 Spec Expiration Date 07/14/2016 - 5137 07/11/16 19:15 Microbiology 07/11/16 19:15 Blood Blood Culture - Final No Growth after 144 hours 07/12/16 13:30 Urine,Catheterized Urine Culture - Final Assessment and Plan (1) Acute blood loss anemia Narrative/Plan: 60-year-old woman who is a very complex past medical history including the recent difficulty with staphylococcal infection of her hip and high-grade bacteremia. This eventually improved. He now presents with evidence of shock. Concerns of sepsis with her history of multiple bouts of infection. But also to blood loss anemia is etiology of shock because of her marked bleeding from her ileostomy. She's undergone endoscopy today. She was having some bleeding at the site. Surgery has been consulted for cautery of the ileostomy to help her with her blood loss. Apparently this will be happening at our facility. The laboratory did call positive culture and now it appears this may be corrected and were not single positive blood culture. With the negative blood cultures the antibiotic therapy may be discontinued. She is however having difficulties with bleeding from her ileostomy. Biopsy shows ongoing inflammation and ileitis. Laser photocoagulation therapy has occurred. She's doing relatively well with only a scant amount of bleeding occurring at this point in time. She is instructed to utilize a dressing in light pressure to the area she has some bleeding. Will need outpatient follow-up such as a hemoglobin to ensure that she is stable and that need of outpatient transfusion if she continues to have decline of hemoglobin. As noted she is very comfortable ready for discharge to home. Status: Acute (2) Sepsis Status: Acute
== END 2016-07-20 18:43 | disposition home or self-care (01) | DRG 385 ==
LOC: EC 18:49 → 6ICU 22:23 → 6PED 07-15 10:12
PROVIDERS: ADMIT Internal Medicine; ATTEND Internal Medicine
PROC: 30233N1 Transfusion of Nonautologous Red Blood Cells into Peripheral Vein, Percutaneous Approach (ICD-10-PCS; 2016-07-11)
PROC: 06HM33Z Insertion of Infusion Device into Right Femoral Vein, Percutaneous Approach (ICD-10-PCS; 2016-07-11)
PROC: 0DJ08ZZ Inspection of Upper Intestinal Tract, Via Natural or Artificial Opening Endoscopic (ICD-10-PCS; 2016-07-13)
PROC: 0DBB8ZX Excision of Ileum, Via Natural or Artificial Opening Endoscopic, Diagnostic (ICD-10-PCS; 2016-07-13 12:40)
PROC: 0W3P8ZZ Control Bleeding in Gastrointestinal Tract, Via Natural or Artificial Opening Endoscopic (ICD-10-PCS; principal; 2016-07-19 10:30)
DX: K50.918 Crohn's disease, unspecified, with other complication (principal); R57.1 Hypovolemic shock; N17.9 Acute kidney failure, unspecified; D62 Acute posthemorrhagic anemia; N39.0 Urinary tract infection, site not specified; D69.6 Thrombocytopenia, unspecified; I08.1 Rheumatic disorders of both mitral and tricuspid valves; D63.8 Anemia in other chronic diseases classified elsewhere; E11.9 Type 2 diabetes mellitus without complications; I10 Essential (primary) hypertension; B19.20 Unspecified viral hepatitis C without hepatic coma; F41.1 Generalized anxiety disorder; K21.9 Gastro-esophageal reflux disease without esophagitis; K76.9 Liver disease, unspecified; M19.90 Unspecified osteoarthritis, unspecified site; E87.6 Hypokalemia; K52.9 Noninfective gastroenteritis and colitis, unspecified; Z79.52 Long term (current) use of systemic steroids; Z79.899 Other long term (current) drug therapy; Z87.891 Personal history of nicotine dependence; Z90.49 Acquired absence of other specified parts of digestive tract; Z86.14 Personal history of Methicillin resistant Staphylococcus aureus infection; Z88.1 Allergy status to other antibiotic agents; Z91.041 Radiographic dye allergy status; Z93.2 Ileostomy status
CPT/HCPCS: 36415; 36556; 43235; 44380; 44388; 71010; 80048; 80053; 81001; 82550; 82553; 83036; 83605; 83735; 84100; 84132; 84484; 85025; 85027; 85610; 85730; 86850; 86900; 86901; 86920; 87040; 87086; 87502; 88305; 91110; 93005; 93306; 96361; 96365; 96367; 96368; 99153; 99291

== ENCOUNTER → 2016-07-26 | Outpatient (CLI) | payer OTHER, MEDICARE ==
[2016-07-26 15:13] LABS: Anisocytosis Slight; Basophils % (A) 0 %; CH 30.8; CHCM 31.1; Eosinophils % (A) 0 %; HCT 27.4 % (34.0-46.0); HGB 8.2 gm/dL (11.4-16.0); Hypochromasia Marked; Luc # (Auto) 0.02; Luc % (Auto) 0; Lymphocytes # (A) 0.3 k/uL (1.0-4.8); Lymphocytes % (A) 6 %; MCH 29.9 pg (25.0-35.0); MCHC 29.8 g/dL (31.0-37.0); Macrocytosis Moderate; Mean Platelet Volume 8.3; Monocytes # (A) 0.1 k/uL (0-1.0); Monocytes % (A) 2 %; Neutrophils # (A) 4.9 k/uL (1.3-7.7); Neutrophils % (A) 92 %; Poikilocytosis Slight; RBC 2.73 m/uL (3.80-5.40); RDW 18.2 % (11.5-15.5); WBC 5.4 k/uL (3.8-10.6); WBC (Perox) 5.77
[2016-07-26 15:28] LABS: Anion Gap 10 mmol/L; Blood Urea Nitrogen 21 mg/dL (7-17); Calcium 8.1 mg/dL (8.4-10.2); Carbon Dioxide 24 mmol/L (22-30); Chloride 111 mmol/L (98-107); Glucose 241 mg/dL (74-99); Non-African American GFR(MDRD) >60 (>60 ml/min/1.73 sqM); Potassium 4.7 mmol/L (3.5-5.1); Sodium 145 mmol/L (137-145)
[2016-07-26 15:56] LABS: Polychromasia Present
[2016-07-26 22:50] LABS: MCV 100.4 fL (80.0-100.0)
== END | disposition home or self-care (01) ==
LOC: LABWHC1 14:29
PROVIDERS: ATTEND Internal Medicine Infectious Disease
DX: D64.9 Anemia, unspecified (principal); R53.83 Other fatigue
CPT/HCPCS: 36415; 80048; 85025

== ENCOUNTER → 2016-08-22 | Outpatient (CLI) | payer OTHER, MEDICARE ==
[2016-08-22 13:22] LABS: Anisocytosis Slight; Basophils % (A) 0 %; CH 30.6; CHCM 30.4; Eosinophils % (A) 0 %; HDW 2.93; Hypochromasia Marked; Luc # (Auto) 0.09; Luc % (Auto) 1; Lymphocytes # (A) 0.8 k/uL (1.0-4.8); Lymphocytes % (A) 11 %; MCH 31.3 pg (25.0-35.0); MCHC 30.9 g/dL (31.0-37.0); MCV 101.3 fL (80.0-100.0); Macrocytosis Slight; Mean Platelet Volume 8.2; Monocytes # (A) 0.2 k/uL (0-1.0); Monocytes % (A) 3 %; Neutrophils # (A) 5.9 k/uL (1.3-7.7); Neutrophils % (A) 84 %; RBC 3.16 m/uL (3.80-5.40); RDW 16.2 % (11.5-15.5); WBC (Perox) 6.85
[2016-08-22 13:26] LABS: HGB 9.9 gm/dL (11.4-16.0)
[2016-08-22 13:58] LABS: ALT 45 U/L (9-52); AST 41 U/L (14-36); Alkaline Phosphatase 56 U/L (38-126); Anion Gap 9 mmol/L; Blood Urea Nitrogen 21 mg/dL (7-17); Calcium 8.7 mg/dL (8.4-10.2); Carbon Dioxide 29 mmol/L (22-30); Chloride 103 mmol/L (98-107); Glucose 169 mg/dL (74-99); Non-African American GFR(MDRD) 51 (>60 ml/min/1.73 sqM); Potassium 4.8 mmol/L (3.5-5.1); Sodium 141 mmol/L (137-145); Total Bilirubin 0.7 mg/dL (0.2-1.3); Total Protein 6.4 g/dL (6.3-8.2)
[2016-08-22 14:00] LABS: Erythrocyte Sedimentation Rate 25 mm/hr (0-20)
[2016-08-22 15:07] LABS: C Reactive Protein 16.6 mg/L (<10.0)
[2016-08-23 20:30] LABS: Iron 37 ug/dL (37-170)
[2016-08-23 20:39] LABS: % Iron Saturation 9.1 % (20-50); Total Iron Binding Capacity 406 ug/dL (265-497)
[2016-08-24 08:27] LABS: Reticulocyte % 2.4 % (0.5-2.0)
== END | disposition home or self-care (01) ==
LOC: LABWHC1 12:44
PROVIDERS: ATTEND Internal Medicine Infectious Disease
DX: A41.02 Sepsis due to Methicillin resistant Staphylococcus aureus (principal)
CPT/HCPCS: 36415; 80053; 82728; 83540; 83550; 85025; 85045; 85652; 86140

== ENCOUNTER → 2016-09-10 | Outpatient (CLI) | payer OTHER, MEDICARE ==
[2016-09-10 14:59] LABS: Reticulocyte % 1.5 % (0.5-2.0)
[2016-09-10 15:18] LABS: % Iron Saturation 17.5 % (20-50)
== END | disposition home or self-care (01) ==
LOC: LABWHC1 14:36
PROVIDERS: ATTEND Internal Medicine Infectious Disease
DX: D53.9 Nutritional anemia, unspecified (principal)
CPT/HCPCS: 36415; 82728; 83540; 83550; 85045

== ENCOUNTER → 2016-10-10 | Outpatient (CLI) | payer OTHER, MEDICARE ==
[2016-10-10 13:36] LABS: CHCM 31.6; HCT 36.5 % (34.0-46.0); HDW 2.38; HGB 11.7 gm/dL (11.4-16.0); MCH 32.5 pg (25.0-35.0); MCV 101.6 fL (80.0-100.0); Macrocytosis Slight; Mean Platelet Volume 7.6; RBC 3.59 m/uL (3.80-5.40); RDW 15.4 % (11.5-15.5); WBC 5.7 k/uL (3.8-10.6)
[2016-10-10 13:39] LABS: Appearance,Urine Clear (Clear); Bilirubin,Urine Negative (Negative); Glucose,Urine (UA) Negative (Negative); Ketones,Urine Negative (Negative); Leukocyte Esterase,Urine Moderate (Negative); Nitrite,Urine Negative (Negative); Particle Count 1356; Protein,Urine 4+ (Negative); RBC,Urine 16 /hpf (0-5); Specific Gravity,Urine 1.016 (1.001-1.035); Squamous Epithelial Cell,Urine <1 /hpf (0-4); UA Billing (MACRO vs. MICRO) MICRO; Urobilinogen,Urine <2.0 mg/dL (<2.0); WBC,Urine 85 /hpf (0-5)
[2016-10-10 13:51] LABS: INR 1.1 (<1.1); Partial Thromboplastin Time 22.5 sec (22.0-30.0); Prothrombin Time 11.1 sec (9.0-12.0)
[2016-10-10 14:11] LABS: ALT 51 U/L (9-52); AST 48 U/L (14-36); Alkaline Phosphatase 54 U/L (38-126); Anion Gap 10 mmol/L; Blood Urea Nitrogen 29 mg/dL (7-17); Calcium 9.9 mg/dL (8.4-10.2); Carbon Dioxide 32 mmol/L (22-30); Chloride 99 mmol/L (98-107); Glucose 134 mg/dL (74-99); Non-African American GFR(MDRD) 51 (>60 ml/min/1.73 sqM); Potassium 4.6 mmol/L (3.5-5.1); Sodium 141 mmol/L (137-145); Total Bilirubin 0.6 mg/dL (0.2-1.3); Total Protein 6.6 g/dL (6.3-8.2)
== END | disposition home or self-care (01) ==
LOC: LABPAT 12:48
PROVIDERS: ATTEND Orthopaedic Surgery
DX: Z01.812 Encounter for preprocedural laboratory examination (principal); Z01.818 Encounter for other preprocedural examination
CPT/HCPCS: 80053; 81001; 85027; 85610; 85730; 87070

== ENCOUNTER 2016-10-22 11:01 | Inpatient (IN) | payer OTHER, MEDICARE ==
[2016-10-19 08:39] VITALS: BMI 23.2
[~2016-10-22 11:01] MED LIST: ACETAMINOPHEN TAB 500 MG TAB PO ONE; HYDROmorphone 1 MG/ML 1 ML SYRINGE IVP PRN; LACTATED RINGERS 1,000 ML IV SCH; LIDOCAINE 1% 20 ML VIAL (10MG/ML) FOR IV START INTRADERMA PRN; MELOXICAM 7.5 MG TAB PO ONE; MIDAZOLAM 2 MG/2 ML VIAL IV PRN; ONDANSETRON 4 MG/2 ML VIAL IVP ONE; SCOPOLAMINE 1.5MG/72HR PATCH TRANSDERM ONE; TRANEXAMIC ACID 1,000 MG in SODIUM CHLORIDE 0.9% 100 ML IVPB ONE; ceFAZolin 2 GM in SODIUM CHLORIDE 0.9% 100 ML IVPB ONE
[2016-10-22] MEDS: DEXAMETHASONE SOD PHOSPHATE 10 MG/ML 1 ML VIAL IV ONE (11:20)
[2016-10-22 11:29] LABS: Appearance,Urine Clear (Clear); Bilirubin,Urine Negative (Negative); Glucose,Urine (UA) Negative (Negative); Ketones,Urine Negative (Negative); Leukocyte Esterase,Urine Moderate (Negative); Mucus,Urine Rare /hpf; Nitrite,Urine Negative (Negative); PH, Urine 6.5 (5.0-8.0); Particle Count 3490; Protein,Urine 3+ (Negative); RBC,Urine 7 /hpf (0-5); Specific Gravity,Urine 1.015 (1.001-1.035); UA Billing (MACRO vs. MICRO) MICRO; Urobilinogen,Urine <2.0 mg/dL (<2.0); WBC,Urine 87 /hpf (0-5)
[2016-10-22 11:41] LABS: Glucose,Whole Blood 113 mg/dL (75-99)
[2016-10-22] MEDS ORDERED: HYDROCORTISONE SUCCINATE 100 MG/2 ML VIAL IV ONE (11:47)
[2016-10-22] MEDS ORDERED: PHENYLEPHRINE-0.9% NACL SYG 1 MG/10 ML SYRINGE ONE (12:29)
[2016-10-22] MEDS ORDERED: PROPOFOL 10 MG/ML 20 ML VIAL IV ONE (12:29)
[2016-10-22] MEDS ORDERED: LIDOCAINE 1% INJ 10MG/ML (20 ML MDV) ONE (12:29)
[2016-10-22] MEDS ORDERED: SUCCINYLCHOLINE CHLORIDE 100 MG/5 ML SYR IV ONE (12:29)
[2016-10-22] MEDS ORDERED: SODIUM CHLORIDE 0.9% 100 ML BAG ONE (12:29)
[2016-10-22] MEDS ORDERED: ALBUMIN HUMAN 5% 500 ML VIAL IVPB ONE (12:29)
[2016-10-22] MEDS ORDERED: MIDAZOLAM 2 MG/2 ML VIAL ONE (12:29)
[2016-10-22] MEDS ORDERED: fentaNYL (PF) 50 MCG/ML 2 ML AMP ONE (12:29)
[2016-10-22] MEDS ORDERED: TRANEXAMIC ACID 1,000 MG/10 ML VIAL ONE (12:29)
[2016-10-22] MEDS: ROPIVACAINE 246.25 MG, EPINEPHrine 0.5 MG, KETOROLAC 30 MG, cloNIDine HCL/PF 80 MCG, WA... MISCELLANE ONE ×15 (13:19→14:09)
[2016-10-22] MEDS ORDERED: ceFAZolin 3,000 MG in SODIUM CHLORIDE 0.9% IRRIGATIO 3,000 ML IRRIGATION ONE (13:20)
[2016-10-22] MEDS ORDERED: LACTATED RINGERS 1,000 ML IV ONE ×2 (13:59)
--- NOTE | 2016-10-22 14:57 | P.OP ---
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 All components were press-fit. The articulation is ceramic on polyethylene. Anesthesia: BRETTA Surgeon: Abdulaziz Pena Precision Instrument Maker And Repairer #1: Kathie Mansfield Precision Instrument Maker And Repairer #2: Nusrat Gonzales Estimated Blood Loss (ml): 1,000 Pathology: other (Culture and Gram stain, frozen section) Condition: stable Disposition: PACU Indications for Procedure: This is a 60-year-old female that was seen by me in the past for right hip pain. She originally had the diagnosis of avascular necrosis of her right hip. Actually one week prior to her scheduled right total hip replacement, she developed intense right hip pain with fevers. She was diagnosed with a septic right hip, taken to the operating room and a stage I revision right total hip arthroplasty with antibiotic spacer was performed. She was treated with intravenous antibiotics for many weeks as directed by infectious disease. She has now presented for stage II revision with removal of the antibiotic spacer, and placement of the final right total hip arthroplasty. She is aware of the possibility of reinfection, as well as dislocation, nerve injury, bleeding, and failure of the prosthesis. Informed consent was obtained. Operative Findings: The operative findings consistent with a status post stage I revision right total hip arthroplasty. There was no signs of any active infection during the surgery. Description of Procedure: Patient was seen and evaluated in the preoperative area, consent was reviewed, and the surgical site was marked with a skin marker. Patient was then brought to the operating room and given prophylactic antibiotics intravenously. 1 g of Tranexamic acid was also given. A general anesthetic was administered by the anesthesia department. The patient was then placed on the operative table and placed in the lateral decubitus position with the bony prominences well-padded. The hip area was then prepped and draped in usual sterile fashion. A universal timeout was then performed, which confirmed the patient's name, surgical site, ALLERGIES, and procedure being performed. Next the incision site was located in the lateral aspect of the hip, centered at the tip of the greater trochanter.. The skin and subcutaneous tissues were sharply incised, with the prior incision being excised. Incision was carefully dissected down to the fascia. This fascia was then incised in line with the incision. Next, a Charnley retractor was then placed in the abductors were identified. The anterior one third of the abductors was released off the trochanter and one large sleeve. The prior sutures were removed. The anterior hip capsule was then exposed. The capsule was then opened. The proximal femur was then visualized. The hip was then gently dislocated. There was a small amount of clear hip fluid encountered, and this was then cultured. A Gram stain of this fluid revealed no organisms seen. Also, a frozen section was obtained of the hip synovium, which showed no acute inflammation. The proximal femur was then exposed. Using an osteotome, cement was removed from the proximal aspect of the hip spacer. Next the hip spacer was then removed. A small crack in the proximal calcar was noted. Next attention was directed to the acetabulum. The acetabulum was exposed and any remaining labrum was excised. Sequential reaming of the acetabulum was performed to a bed of bleeding cancellus bone. When the appropriate size was reached, a trial was then placed. The trial was then removed. Then the final implant was impacted at 20 of anteversion and 40 of abduction, and fully seated in the acetabulum. 2 screws were then placed in the acetabulum. Next, the liner was then impacted, with a 20 elevated liner located in the anterior superior quadrant. Component locking was confirmed. Attention was then directed to the femur. The proximal femur was reexposed. Retractors were then placed. A cerclage cable was then placed around the proximal femur in the small crack in the calcar. Sequential reaming was then performed with appropriate size which afforded excellent fixation in the femur. A trial was then placed with appropriate head and neck, and the hip was gently reduced. The leg lengths were checked and found to be equal. Hip was then taken through full range of motion, was stable throughout. Next, the hip was gently dislocated, and the trials were removed. Final implants were then impacted and the hip was again reduced. The leg lengths were again examined and found to be equal. The hip was also taken through range of motion, and found to be stable. The hip was then copiously irrigated with antibiotic solution with pulsatile lavage. The hip was then irrigated with Irrisept solution. The soft tissues were then injected with ropivacaine solution. A second dose of 1 g of Tranexamic acid was given. The abductors were then repaired with #5 Ethibond suture with drill holes to the bone. The fascia was closed with #2 strata fix suture. The subcutaneous tissue was closed with 3-0 Vicryl. The subcuticular tissue was closed with 30 strata fix suture. The skin was then closed with Dermabond tape. The patient was then transferred to the recovery room in stable condition. The Asst. Kathie Mansfield was required due to the complexity of surgery, and the need for skilled teacher assistant for positioning, draping, exposure, retraction, and closure of the wound.and closure of the wound.
[2016-10-22] MEDS ORDERED: MAGNESIUM HYDROXIDE 2,400 MG/10 ML CUP PO PRN (15:03)
[2016-10-22] MEDS ORDERED: hydrOXYzine PAMOATE 25 MG CAP PO PRN (15:03)
[2016-10-22] MEDS ORDERED: NALOXONE 0.4 MG/ML 1 ML VIAL IV PRN (15:03)
[2016-10-22] MEDS ORDERED: DIAZEPAM 5 MG TAB PO PRN ×2 (15:03)
[2016-10-22] MEDS ORDERED: HYDROmorphone 1 MG/ML 1 ML SYRINGE IVP PRN ×2 (15:03)
[2016-10-22] MEDS ORDERED: Acetaminophen-Codeine 300-30mg TAB PO PRN ×2 (15:03)
[2016-10-22] MEDS ORDERED: ONDANSETRON 4 MG/2 ML VIAL IVP PRN (15:03)
--- NOTE | 2016-10-22 15:28 | XR ---
EXAMINATION TYPE: XR Hip Limited RT DATE OF EXAM: 10/22/2016 3:23 PM CLINICAL HISTORY: Postoperative evaluation TECHNIQUE: Single portable view of the right hip was submitted. FINDINGS: Noted are changes of total hip arthroplasty with femoral and acetabular components appearin g well seated. Alignment is anatomic. Postsurgical soft tissue changes are evident. IMPRESSION: Satisfactory postoperative alignment
[2016-10-22 15:31] LABS: Basophils % (A) 0 %; CH 32.2; CHCM 31.8; Eosinophils % (A) 0 %; HCT 27.9 % (34.0-46.0); HDW 2.72; Luc # (Auto) 0.08; Luc % (Auto) 2; Lymphocytes # (A) 0.8 k/uL (1.0-4.8); Lymphocytes % (A) 18 %; MCH 31.7 pg (25.0-35.0); MCHC 31.2 g/dL (31.0-37.0); MCV 101.6 fL (80.0-100.0); Macrocytosis Slight; Monocytes # (A) 0.1 k/uL (0-1.0); Monocytes % (A) 2 %; Neutrophils # (A) 3.5 k/uL (1.3-7.7); Neutrophils % (A) 78 %; RBC 2.75 m/uL (3.80-5.40); RDW 15.3 % (11.5-15.5); WBC 4.5 k/uL (3.8-10.6); WBC (Perox) 4.65
[2016-10-22 16:13] LABS: HGB 8.7 gm/dL (11.4-16.0)
[2016-10-22] MEDS: SODIUM CHLORIDE 0.9% 1,000 ML IV SCH (18:42)
[2016-10-22] MEDS ORDERED: SODIUM CHLORIDE 0.9% IVPB SCH (19:00)
[2016-10-22] MEDS ORDERED: VANCOMYCIN IVPB SCH (19:00)
[2016-10-22] MEDS ORDERED: ALPRAZolam 0.25 MG TAB PO PRN (20:28)
[2016-10-22] MEDS ORDERED: ALBUTEROL NEBULIZED 2.5 MG/3 ML INHALATION PRN (20:28)
[2016-10-22] MEDS: VANCOMYCIN 1,000 MG in SODIUM CHLORIDE 0.9% 250 ML IVPB SCH (20:56)
[2016-10-22] MEDS ORDERED: ASPIRIN 325 MG TAB PO SCH (21:00)
[2016-10-22] MEDS ORDERED: FERROUS SULFATE 325 MG TAB PO SCH (21:00)
[2016-10-22] MEDS: SENNOSIDES-DOCUSATE SODIUM 1 EACH TAB PO SCH (21:23)
[2016-10-22] MEDS: ceFAZolin 2 GM in SODIUM CHLORIDE 0.9% 100 ML IVPB SCH (23:06)
[2016-10-22] MEDS: CODEINE 30 MG TAB PO PRN (23:07)
[2016-10-23] MEDS ORDERED: ENOXAPARIN 30 MG/0.3 ML SYRINGE SQ ONE (02:15)
[2016-10-23] MEDS: DEXAMETHASONE SOD PHOSPHATE 10 MG/ML 1 ML VIAL IV ONE (02:19)
[2016-10-23] MEDS: SODIUM CHLORIDE 0.9% 1,000 ML IV SCH ×2 (04:56→23:14)
[2016-10-23] MEDS: ceFAZolin 2 GM in SODIUM CHLORIDE 0.9% 100 ML IVPB SCH ×3 (04:56→23:14)
[2016-10-23 07:47] LABS: Basophils % (A) 0 %; CH 32.1; CHCM 32.4; Eosinophils # (A) 0.1 k/uL (0-0.7); Eosinophils % (A) 1 %; HDW 2.87; Luc # (Auto) 0.13; Luc % (Auto) 2; Lymphocytes # (A) 1.4 k/uL (1.0-4.8); Lymphocytes % (A) 23 %; MCH 32.2 pg (25.0-35.0); MCHC 32.3 g/dL (31.0-37.0); MCV 99.7 fL (80.0-100.0); Macrocytosis Slight; Mean Platelet Volume 7.4; Monocytes # (A) 0.4 k/uL (0-1.0); Monocytes % (A) 7 %; Neutrophils % (A) 67 %; RBC 2.11 m/uL (3.80-5.40); RDW 15.7 % (11.5-15.5); WBC 5.9 k/uL (3.8-10.6); WBC (Perox) 5.86
[2016-10-23 07:53] LABS: HGB 6.8 gm/dL (11.4-16.0)
[2016-10-23] MEDS: MELOXICAM 7.5 MG TAB PO SCH (08:33)
[2016-10-23] MEDS: CODEINE 30 MG TAB PO PRN ×2 (08:37→22:12)
[2016-10-23] MEDS: MULTIVITAMINS, THERA 1 EACH TAB PO SCH (08:38)
[2016-10-23] MEDS: LINAGLIPTIN 5 MG TABLET PO SCH (08:38)
[2016-10-23] MEDS: predniSONE 20 MG TAB PO SCH (08:38)
[2016-10-23] MEDS: B COMPLEX-VIT C-VIT E-ZINC 1 EACH TAB PO SCH (08:38)
[2016-10-23] MEDS ORDERED: INSULIN LISPRO (humaLOG) 300 UNIT/3 ML VIAL SQ ONE (08:41)
[2016-10-23] MEDS: HYDROmorphone 1 MG/ML 1 ML SYRINGE IVP PRN ×3 (08:42→23:14)
--- NOTE | 2016-10-23 11:00 | P.CONS ---
History of Present Illness - Reason for Consult Consult date: 10/23/16 Septic joint - History of Present Illness This is a 60-year-old female. She is well-known to ID service as she was treated during her admission April 24 - 2015, septic right hip joint and avascular necrosis and MRSA bacteremia. She was discharged to [facility] with Zyvox to complete a 6 week course. Unsure if patient had follow-up. She also has a past medical history of Crohn's status post bowel resection followed by ileostomy on chronic prednisone, hepatitis C treated with Sergio and in remission followed by Dr. Colon, diabetes mellitus type 2, gastroesophageal reflux disease, hypertension, history of sepsis due to urinary tract infection and kidney stone and ARDS in 2007, bleeding from stoma, anxiety. She had a recent hospitalization in June of this year for acute GI bleed from her stoma requiring laser treatment by Dr. Barakat. Blood cultures on that admission were negative and she did not require any antibiotics. Patient states she had one other episode of small amount of bleeding from her stoma since but did not require admission. Her platelet count is in the 70s and patient states that in 2007 she did have platelet transfusion when she was septic. She has seen Dr. Roth on 2 occasions and did not need follow-up. She denies having any fever or chills, nausea vomiting, dysuria. Patient now returns under the care of Dr. Pena for revision of the right total hip arthroplasty for infection and there were no signs of active infection during the surgery. Wound cultures were obtained during surgery. White count is currently 5.9, hemoglobin is dropped to 6.8. She has been afebrile. Review of Systems All systems: negative Constitutional: Denies chills, Denies fever Eyes: denies blurred vision, denies pain Ears, nose, mouth and throat: Denies headache, Denies sore throat Cardiovascular: Denies chest pain, Denies shortness of breath Respiratory: Denies cough Gastrointestinal: Denies abdominal pain, Denies diarrhea, Denies nausea, Denies vomiting Genitourinary: Denies dysuria, Denies hematuria Musculoskeletal: Denies myalgias Integumentary: Denies pruritus, Denies rash Neurological: Denies numbness, Denies weakness Psychiatric: Denies anxiety, Denies depression Endocrine: Denies fatigue, Denies weight change Past Medical History Past Medical History: Diabetes Mellitus, GERD/Reflux, Liver Disease, Osteoarthritis (OA) Additional Past Medical History / Comment(s): crohns, hx. hep c-currently in remission, hx. sepsis & ards 2007, has ileostomy, hx. kidney stones, hx. of infection in hip-was on antibiotics, has spacer in, hx. anemia related to intermittent bleeding from stoma, has past hx. elevated heart rate, states is related to when she is anemic, just finished antibiotic for UTI History of Any Multi-Drug Resistant Organisms: MRSA Year Discovered:: 04/25/16 MDRO Source:: Blood & Right Hip Past Surgical History: Appendectomy, Bowel Resection, Cholecystectomy, Hernia Repair, Hysterectomy, Tubal Ligation Additional Past Surgical History / Comment(s): ileostomy 2009 WITH 3-4 RE- SUTURING EPISODES RELATED TO BLEEDING, ileoscopy w/argon gas coagulation of stoma Past Anesthesia/Blood Transfusion Reactions: No Reported Reaction Past Psychological History: Anxiety Smoking Status: Former smoker Past Alcohol Use History: None Reported Additional Past Alcohol Use History / Comment(s): quit smoking 2007, 1ppd for 30 yrs. Past Drug Use History: None Reported - Past Family History Mother Additional Family Medical History / Comment(s): Mother at age 88 from CVA. Sister(s) Additional Family Medical History / Comment(s): Patient has 3 sisters with no major medical problems. Patient does not have any brothers. Patient has 2 sons with no major medical problems. Father Family Medical History: Cancer Additional Family Medical History / Comment(s): MOTHER- DIABETES Medications and Allergies Home Medications Medication Instructions Recorded Confirmed Type predniSONE 20 mg PO DAILY 11/07/13 10/22/16 History Ferrous Sulfate [Iron (65 MG 325 mg PO Q2D 04/23/16 10/22/16 History Elemental)] ALPRAZolam [Xanax] 0.25 mg PO HS PRN 07/06/16 10/22/16 History Codeine Sulfate 120 mg PO TID PRN 07/06/16 10/22/16 History Albuterol Sulfate [Proair Hfa] 1 - 2 puff INHALATION RT-Q6H PRN 07/11/16 History Linagliptin [Tradjenta] 5 mg PO DAILY 07/11/16 10/22/16 History Magnesium Oxide [Mag-Ox] 400 mg PO DAILY 10/19/16 10/22/16 History Multivits-Min/Iron/FA/Lutein 1 tab PO DAILY 10/19/16 10/22/16 History [Centrum Silver Women Tablet] Vitamin B Complex 1 cap PO DAILY 10/19/16 10/22/16 History Allergies Allergy/AdvReac Type Severity Reaction Status Date / Time Quinolones Allergy Severe Anaphylaxis Verified 10/22/16 11:12 adhesive tape Allergy Rash/Hives Verified 10/22/16 11:12 Iodinated Contrast Media - Allergy Unknown Verified 10/22/16 11:12 Oral and [Iodinated Contrast Media - IV Dye] acetaminophen [From Tylenol] AdvReac Severe Unknown Verified 10/23/16 14:02 NSAIDS (Non-Steroidal AdvReac Severe Unknown Verified 10/23/16 14:03 Anti-Inflamma Physical Exam Vitals: Vital Signs Temp Pulse Pulse Resp BP BP BP 10/23/16 07:00 98.9 F 85 18 114/58 10/23/16 01:10 98.4 F 85 16 104/54 10/22/16 19:23 97.6 F 75 16 126/67 10/22/16 18:48 76 16 121/59 10/22/16 18:18 75 16 114/59 10/22/16 18:03 73 16 115/57 10/22/16 17:48 88 16 114/56 10/22/16 17:32 91 16 123/56 10/22/16 17:17 91 14 147/75 10/22/16 17:06 80 18 114/56 10/22/16 16:33 79 16 126/58 10/22/16 16:14 83 18 132/65 10/22/16 15:59 85 18 143/65 10/22/16 15:44 97.2 F L 82 16 134/57 10/22/16 15:29 89 16 151/67 10/22/16 15:14 93 16 137/60 10/22/16 15:01 96.8 F L 77 16 156/68 10/22/16 11:26 98.5 F 83 16 158/76 Pulse Ox 10/23/16 07:00 99 10/23/16 01:10 98 10/22/16 19:23 97 10/22/16 18:48 100 10/22/16 18:18 100 10/22/16 18:03 98 10/22/16 17:48 100 10/22/16 17:32 100 10/22/16 17:17 99 10/22/16 17:06 99 10/22/16 16:33 100 10/22/16 16:14 100 10/22/16 15:59 100 10/22/16 15:44 100 10/22/16 15:29 100 10/22/16 15:14 100 10/22/16 15:01 100 10/22/16 11:26 97 Intake and Output 10/22/16 10/23/16 10/23/16 22:59 06:59 14:59 Intake Total 800 Output Total 1 400 Balance 800 -1 -400 Intake: IV 800 Output: Urine 1 Stool 400 Other: Voiding Method Toilet # Voids 1 # Bowel Movements 1 Gen: This is a 60-year-old female. She is sitting up in bed and appears to be in no acute distress while at rest. HEENT: Head is atraumatic, normocephalic. Pupils equal, round. Sclerae is anicteric. Oral mucous membranes are dry. No thrush noted. NECK: Supple. No JVD. No lymphadenopathy. No thyromegaly. LUNGS: Clear to auscultation. No wheezes or rhonchi. No intercostal retractions. HEART: Regular rate and rhythm. No murmur. ABDOMEN: Soft. Bowel sounds are present. No masses. No tenderness. Right- sided ileostomy with no active bleeding. EXTREMITIES: No pedal edema. No calf tenderness. NEUROLOGICAL: Patient is awake, alert and oriented x3. Cranial nerves 2 through 12 are grossly intact. Results Results: Laboratory Results WBC 5.9 k/uL (3.8-10.6) 10/23/16 06:59 RBC 2.11 m/uL (3.80-5.40) L 10/23/16 06:59 Hgb 6.8 gm/dL (11.4-16.0) L* D 10/23/16 06:59 Hct 21.0 % (34.0-46.0) L 10/23/16 06:59 MCV 99.7 fL (80.0-100.0) 10/23/16 06:59 MCH 32.2 pg (25.0-35.0) 10/23/16 06:59 MCHC 32.3 g/dL (31.0-37.0) 10/23/16 06:59 RDW 15.7 % (11.5-15.5) H 10/23/16 06:59 Plt Count 71 k/uL (150-450) L 10/23/16 06:59 Neutrophils % 67 % 10/23/16 06:59 Lymphocytes % 23 % 10/23/16 06:59 Monocytes % 7 % 10/23/16 06:59 Eosinophils % 1 % 10/23/16 06:59 Basophils % 0 % 10/23/16 06:59 Neutrophils # 4.0 k/uL (1.3-7.7) 10/23/16 06:59 Lymphocytes # 1.4 k/uL (1.0-4.8) 10/23/16 06:59 Monocytes # 0.4 k/uL (0-1.0) 10/23/16 06:59 Eosinophils # 0.1 k/uL (0-0.7) 10/23/16 06:59 Basophils # 0.0 k/uL (0-0.2) 10/23/16 06:59 Macrocytosis Slight 10/23/16 06:59 POC Glucose (mg/dL) 113 mg/dL (75-99) H 10/22/16 11:26 POC Glu Cutting Room Supervisor ID Jackelyn Foy 10/22/16 11:26 Urine Color Yellow 10/22/16 11:11 Urine Appearance Clear (Clear) 10/22/16 11:11 Urine pH 6.5 (5.0-8.0) 10/22/16 11:11 Ur Specific [place] 1.015 (1.001-1.035) 10/22/16 11:11 Urine Protein 3+ (Negative) H 10/22/16 11:11 Urine Glucose (UA) Negative (Negative) 10/22/16 11:11 Urine Ketones Negative (Negative) 10/22/16 11:11 Urine Blood Moderate (Negative) H 10/22/16 11:11 Urine Nitrite Negative (Negative) 10/22/16 11:11 Urine Bilirubin Negative (Negative) 10/22/16 11:11 Urine Urobilinogen <2.0 mg/dL (<2.0) 10/22/16 11:11 Ur Leukocyte Esterase Moderate (Negative) H 10/22/16 11:11 Urine RBC 7 /hpf (0-5) H 10/22/16 11:11 Urine WBC 87 /hpf (0-5) H 10/22/16 11:11 Urine Mucus Rare /hpf (None) H 10/22/16 11:11 Blood Type A Positive 10/23/16 09:37 Blood Type Recheck No 10/23/16 09:37 Antibody Screen NEGATIVE 10/23/16 09:37 Crossmatch See Detail 10/12/16 17:14 Spec Expiration Date 10/26/2016 - 234310/23/16 09:37 CBC & Chem 7: 10/23/16 06:59 Labs: Abnormal Lab Results - Last 24 Hours (Table) 10/12/16 10/22/16 10/22/16 Range/Units 17:14 11:11 11:26 RBC (3.80-5.40) m/uL Hgb (11.4-16.0) gm/dL Hct (34.0-46.0) % MCV (80.0-100.0) fL RDW (11.5-15.5) % Plt Count (150-450) k/uL Lymphocytes # (1.0-4.8) k/uL POC Glucose (mg/dL) 113 H (75-99) mg/dL Urine Protein 3+ H (Negative) Urine Blood Moderate H (Negative) Ur Leukocyte Esterase Moderate H (Negative) Urine RBC 7 H (0-5) /hpf Urine WBC 87 H (0-5) /hpf Urine Mucus Rare H (None) /hpf Crossmatch See Detail 10/22/16 10/23/16 Range/Units 15:20 06:59 RBC 2.75 L 2.11 L (3.80-5.40) m/uL Hgb 8.7 L D 6.8 L* D (11.4-16.0) gm/dL Hct 27.9 L 21.0 L (34.0-46.0) % MCV 101.6 H (80.0-100.0) fL RDW 15.7 H (11.5-15.5) % Plt Count 78 L 71 L (150-450) k/uL Lymphocytes # 0.8 L (1.0-4.8) k/uL POC Glucose (mg/dL) (75-99) mg/dL Urine Protein (Negative) Urine Blood (Negative) Ur Leukocyte Esterase (Negative) Urine RBC (0-5) /hpf Urine WBC (0-5) /hpf Urine Mucus (None) /hpf Crossmatch Microbiology - Last 24 Hours (Table) 10/22/16 13:10 Gram Stain - Preliminary Hip - Left Wound Culture - Preliminary 10/22/16 13:10 Anaerobic Culture - Preliminary Hip - Left Assessment and Plan Plan: This is a 60-year-old female who has been under treatment with ID services in April 2016 for septic joint and avascular necrosis with sepsis, septicemia and MRSA bacteremia. She now presents under the care of Dr. Pena and underwent a stage II revision of the right total hip arthroplasty. She is currently on IV antibiotics in form of cefazolin and vancomycin. Await report on wound cultures obtained during surgery. Continue supportive care. Further recommendations as patient progresses. The above dictated assessment and findings were discussed with Dr. Thayer. The impression and plan of care have been directed as dictated. Glenis Hernandez nurse practitioner acting as scribe for Dr. Thayer. Time with Patient: Greater than 30
[2016-10-23 13:44] VITALS: RESP 16
[2016-10-23] MEDS ORDERED: ALPRAZolam 0.5 MG TAB PO PRN (13:49)
[2016-10-23] MEDS: INSULIN LISPRO (humaLOG) 300 UNIT/3 ML VIAL SQ SCH ×3 (14:04→23:11)
--- NOTE | 2016-10-23 14:58 | P.CONS ---
History of Present Illness - Reason for Consult Consult date: 10/23/16 Medical management - History of Present Illness This is a 60-year-old female. Her primary care physician Dr. Recinos. She has a past medical history of Crohn's status post bowel resection followed by ileostomy, hepatitis C treated with Harvoni and in remission followed by Dr. Colon, diabetes mellitus type 2, gastroesophageal reflux disease, hypertension, history of sepsis due to urinary tract infection and kidney stone and ARDS in 2007, bleeding from stoma, anxiety, septic joint and avascular necrosis of the right hip and MRSA bacteremia treated in April 2016 under the care of Dr. Thayer. She is most recent hospitalization was in June 2016 which time she was treated for acute GI bleed from her stoma status post laser treatment by Dr. Barakat with transfusion of packed RBCs. Repeat blood cultures at that time were negative. She was stabilized and discharged home. Patient states she had one other episode of small amount of bleeding from her stoma since that time but did not require admission. Her platelet count is in the 70s and patient states that in 2007 she did have platelet transfusion when she was septic. She has seen Dr. Roth on 2 occasions and did not need follow-up. She denies having any fever or chills, nausea vomiting, dysuria. She was cleared for surgery by Dr. Thayer. Patient now returns under the care of Dr. Pena for revision of the right total hip arthroplasty for infection and there were no signs of active infection during the surgery. Consult with Dr. Thayer is in place and consult added for Dr. Yousif regarding anticoagulation to prevent DVT with concern for frequent GI bleeds. Patient does not want to be on anticoagulation. Review of Systems All systems: negative Constitutional: Denies chills, Denies fever Eyes: denies blurred vision, denies pain Ears, nose, mouth and throat: Denies headache, Denies sore throat Cardiovascular: Denies chest pain, Denies shortness of breath Respiratory: Denies cough Gastrointestinal: Denies abdominal pain, Denies diarrhea, Denies nausea, Denies vomiting Genitourinary: Denies dysuria, Denies hematuria Musculoskeletal: Denies myalgias Integumentary: Denies pruritus, Denies rash Neurological: Denies numbness, Denies weakness Psychiatric: Denies anxiety, Denies depression Endocrine: Denies fatigue, Denies weight change Past Medical History Past Medical History: Diabetes Mellitus, GERD/Reflux, Liver Disease, Osteoarthritis (OA) Additional Past Medical History / Comment(s): crohns, hx. hep c-currently in remission, hx. sepsis & ards 2007, has ileostomy, hx. kidney stones, hx. of infection in hip-was on antibiotics, has spacer in, hx. anemia related to intermittent bleeding from stoma, has past hx. elevated heart rate, states is related to when she is anemic, just finished antibiotic for UTI History of Any Multi-Drug Resistant Organisms: MRSA Year Discovered:: 04/25/16 MDRO Source:: Blood & Right Hip Past Surgical History: Appendectomy, Bowel Resection, Cholecystectomy, Hernia Repair, Hysterectomy, Tubal Ligation Additional Past Surgical History / Comment(s): ileostomy 2009 WITH 3-4 RE- SUTURING EPISODES RELATED TO BLEEDING, ileoscopy w/argon gas coagulation of stoma Past Anesthesia/Blood Transfusion Reactions: No Reported Reaction Past Psychological History: Anxiety Smoking Status: Former smoker Past Alcohol Use History: None Reported Additional Past Alcohol Use History / Comment(s): quit smoking 2007, 1ppd for 30 yrs. Past Drug Use History: None Reported - Past Family History Mother Additional Family Medical History / Comment(s): Mother at age 88 from CVA. Sister(s) Additional Family Medical History / Comment(s): Patient has 3 sisters with no major medical problems. Patient does not have any brothers. Patient has 2 sons with no major medical problems. Father Family Medical History: Cancer Additional Family Medical History / Comment(s): MOTHER- DIABETES Medications and Allergies Home Medications Medication Instructions Recorded Confirmed Type predniSONE 20 mg PO DAILY 11/07/13 10/22/16 History Ferrous Sulfate [Iron (65 MG 325 mg PO Q2D 04/23/16 10/22/16 History Elemental)] ALPRAZolam [Xanax] 0.25 mg PO HS PRN 07/06/16 10/22/16 History Codeine Sulfate 120 mg PO TID PRN 07/06/16 10/22/16 History Albuterol Sulfate [Proair Hfa] 1 - 2 puff INHALATION RT-Q6H PRN 07/11/16 History Linagliptin [Tradjenta] 5 mg PO DAILY 07/11/16 10/22/16 History Magnesium Oxide [Mag-Ox] 400 mg PO DAILY 10/19/16 10/22/16 History Multivits-Min/Iron/FA/Lutein 1 tab PO DAILY 10/19/16 10/22/16 History [Centrum Silver Women Tablet] Vitamin B Complex 1 cap PO DAILY 10/19/16 10/22/16 History Allergies Allergy/AdvReac Type Severity Reaction Status Date / Time Quinolones Allergy Severe Anaphylaxis Verified 10/22/16 11:12 adhesive tape Allergy Rash/Hives Verified 10/22/16 11:12 Iodinated Contrast Media - Allergy Unknown Verified 10/22/16 11:12 Oral and [Iodinated Contrast Media - IV Dye] acetaminophen [From Tylenol] AdvReac Severe Unknown Verified 10/23/16 14:02 NSAIDS (Non-Steroidal AdvReac Severe Unknown Verified 10/23/16 14:03 Anti-Inflamma Physical Exam Vitals: Vital Signs Temp Pulse Pulse Resp BP BP BP 10/23/16 07:00 98.9 F 85 18 114/58 10/23/16 01:10 98.4 F 85 16 104/54 10/22/16 19:23 97.6 F 75 16 126/67 10/22/16 18:48 76 16 121/59 10/22/16 18:18 75 16 114/59 10/22/16 18:03 73 16 115/57 10/22/16 17:48 88 16 114/56 10/22/16 17:32 91 16 123/56 10/22/16 17:17 91 14 147/75 10/22/16 17:06 80 18 114/56 10/22/16 16:33 79 16 126/58 10/22/16 16:14 83 18 132/65 10/22/16 15:59 85 18 143/65 10/22/16 15:44 97.2 F L 82 16 134/57 10/22/16 15:29 89 16 151/67 10/22/16 15:14 93 16 137/60 10/22/16 15:01 96.8 F L 77 16 156/68 10/22/16 11:26 98.5 F 83 16 158/76 Pulse Ox 10/23/16 07:00 99 10/23/16 01:10 98 10/22/16 19:23 97 10/22/16 18:48 100 10/22/16 18:18 100 10/22/16 18:03 98 10/22/16 17:48 100 10/22/16 17:32 100 10/22/16 17:17 99 10/22/16 17:06 99 10/22/16 16:33 100 10/22/16 16:14 100 10/22/16 15:59 100 10/22/16 15:44 100 10/22/16 15:29 100 10/22/16 15:14 100 10/22/16 15:01 100 10/22/16 11:26 97 Intake and Output 10/22/16 10/23/16 10/23/16 22:59 06:59 14:59 Intake Total 800 Output Total 1 400 Balance 800 -1 -400 Intake: IV 800 Output: Urine 1 Stool 400 Other: Voiding Method Toilet # Voids 1 # Bowel Movements 1 Gen: This is a 60-year-old female. She is sitting up in bed and appears to be in no acute distress while at rest. HEENT: Head is atraumatic, normocephalic. Pupils equal, round. Sclerae is anicteric. Oral mucous membranes are dry. No thrush noted. NECK: Supple. No JVD. No lymphadenopathy. No thyromegaly. LUNGS: Clear to auscultation. No wheezes or rhonchi. No intercostal retractions. HEART: Regular rate and rhythm. No murmur. ABDOMEN: Soft. Bowel sounds are present. No masses. No tenderness. Right- sided ileostomy with no active bleeding. EXTREMITIES: No pedal edema. No calf tenderness. Resting in place to the right hip. NEUROLOGICAL: Patient is awake, alert and oriented x3. Cranial nerves 2 through 12 are grossly intact. Results CBC & Chem 7: 10/23/16 06:59 Labs: Abnormal Lab Results - Last 24 Hours (Table) 10/12/16 10/22/16 10/22/16 Range/Units 17:14 11:11 11:26 RBC (3.80-5.40) m/uL Hgb (11.4-16.0) gm/dL Hct (34.0-46.0) % MCV (80.0-100.0) fL RDW (11.5-15.5) % Plt Count (150-450) k/uL Lymphocytes # (1.0-4.8) k/uL POC Glucose (mg/dL) 113 H (75-99) mg/dL Urine Protein 3+ H (Negative) Urine Blood Moderate H (Negative) Ur Leukocyte Esterase Moderate H (Negative) Urine RBC 7 H (0-5) /hpf Urine WBC 87 H (0-5) /hpf Urine Mucus Rare H (None) /hpf Crossmatch See Detail 10/22/16 10/23/16 Range/Units 15:20 06:59 RBC 2.75 L 2.11 L (3.80-5.40) m/uL Hgb 8.7 L D 6.8 L* D (11.4-16.0) gm/dL Hct 27.9 L 21.0 L (34.0-46.0) % MCV 101.6 H (80.0-100.0) fL RDW 15.7 H (11.5-15.5) % Plt Count 78 L 71 L (150-450) k/uL Lymphocytes # 0.8 L (1.0-4.8) k/uL POC Glucose (mg/dL) (75-99) mg/dL Urine Protein (Negative) Urine Blood (Negative) Ur Leukocyte Esterase (Negative) Urine RBC (0-5) /hpf Urine WBC (0-5) /hpf Urine Mucus (None) /hpf Crossmatch Microbiology - Last 24 Hours (Table) 10/22/16 13:10 Gram Stain - Preliminary Hip - Left Wound Culture - Preliminary 10/22/16 13:10 Anaerobic Culture - Preliminary Hip - Left Assessment and Plan Plan: 1. History of right hip septic joint and avascular necrosis with sepsis, septicemia and MRSA bacteremia in April 2016. Patient is status post stage II revision of right total hip arthroplasty with Dr. Pena done on 2016. She is currently on cefazolin and vancomycin. Dr. Thayer is on consult. Regarding pain control, patient is currently on codeine 120 mg 3 times daily which she takes at home, Dilaudid as needed and gabapentin will be added. 2. Acute blood loss anemia with hemoglobin of 6.8 with history of chronic anemia due to Crohn's. Transfusion of one unit of packed RBCs scheduled for today 3. Thrombocytopenia with history of the same with episode of sepsis requiring platelet transfusion in 2007. Consult with Dr. Yousif for recommendations for DVT prophylaxis. 4.Diabetes mellitus type 2. Patient is on Tradjenta at home which will be continued along with Humalog scale. 5. History of hypertension, not currently on medication. 6. Crohn's disease status post bowel resection and ileostomy, stable. Patient is normally on prednisone 20 mg daily. 7. Generalized anxiety disorder. Continue Xanax increased to 0.5 mg at bedtime. 8. History of hepatitis C status post Harvoni treatment followed by rianna Hicks. 9. Gastrointestinal prophylaxis. Continue Protonix 40 mg daily. 10. DVT prophylaxis. SCDs and CRISTHIAN ortiz, Lovenox 30 mg subcu daily. Discharge plan: To be determined Impression and plan of care have been directed as dictated by the signing physician. Glenis Hernandez nurse practitioner acting as scribe for signing physician. Cc: Dr. Fab Recinos Time with Patient: Greater than 30
[2016-10-23] MEDS ORDERED: ENOXAPARIN 30 MG/0.3 ML SYRINGE SQ SCH (15:00)
--- NOTE | 2016-10-23 16:34 | P.PN ---
Subjective Principal diagnosis: Status post stage II revision right hip This is a pleasant 60-year-old female who is status post stage II revision of her right hip. Today's postoperative day #1. The patient did have a 100 and blood loss and did receive 1 packed red blood cell unit yesterday and another this morning. She is doing quite well. She states that her pain is well- controlled. She is not been up ambulating due to her low hemoglobin this morning. She has no new complaints at this time. Objective - Vital Signs Vital signs: Vital Signs Temp 98.7 F 10/23/16 16:02 Pulse 93 10/23/16 16:02 Resp 16 10/23/16 16:02 BP 150/80 10/23/16 16:02 Pulse Ox 93 L 10/23/16 16:02 Intake & Output 10/22/16 10/23/16 10/23/16 18:59 06:59 18:59 Intake Total 5510 310 Output Total 1000 1 400 Balance 4510 -1 -90 Intake: IV 5200 Blood Product 310 310 Rc As-1 Unit 310 [id number] Rc As-1 Unit 310 [id number] Output: Urine 1 Stool 400 Estimated Blood Loss 1000 Other: Voiding Method Toilet # Voids 1 2 # Bowel Movements 1 - Exam The patient does not appear in acute distress. Alert and orientated 3. Dressing is clean dry and intact. Incision appears fine with no erythema or active drainage. Calf is soft and nontender. Good foot and ankle motion without difficulty. Sensation and circulatory status is intact. - Labs CBC & Chem 7: 10/23/16 06:59 Labs: Abnormal Lab Results - Last 24 Hours (Table) 10/12/16 10/23/16 10/23/16 Range/Units 17:14 06:59 09:37 RBC 2.11 L (3.80-5.40) m/uL Hgb 6.8 L* D (11.4-16.0) gm/dL Hct 21.0 L (34.0-46.0) % RDW 15.7 H (11.5-15.5) % Plt Count 71 L (150-450) k/uL Crossmatch See Detail See Detail Microbiology - Last 24 Hours (Table) 10/22/16 13:10 Gram Stain - Preliminary Hip - Left Wound Culture - Preliminary 10/22/16 13:10 Anaerobic Culture - Preliminary Hip - Left Assessment and Plan (1) Status post right hip replacement Status: Acute (2) Acute blood loss anemia Status: Acute Plan: Continue with routine postoperative care. Anticoagulation per medicine. We'll recheck her CBC after her transfusion. We'll follow her closely. Appreciate input from medicine.
[2016-10-23] MEDS: GABAPENTIN 100 MG CAP PO SCH (16:54)
[2016-10-23 17:47] LABS: Glucose,Whole Blood 98 mg/dL (75-99)
[2016-10-23 18:13] LABS: Anisocytosis Slight; CH 31.6; CHCM 32.8; HCT 27.8 % (34.0-46.0); HDW 2.88; MCH 31.3 pg (25.0-35.0); MCHC 32.2 g/dL (31.0-37.0); MCV 97.3 fL (80.0-100.0); Macrocytosis Slight; Mean Platelet Volume 7.3; RBC 2.86 m/uL (3.80-5.40); RDW 16.2 % (11.5-15.5); WBC 7.5 k/uL (3.8-10.6)
[2016-10-23 18:29] LABS: Calcium 8.2 mg/dL (8.4-10.2); Potassium 4.7 mmol/L (3.5-5.1); Total Bilirubin 1.4 mg/dL (0.2-1.3); Total Protein 5.3 g/dL (6.3-8.2)
[2016-10-23 20:02] LABS: Hemoglobin A1C 5.3 % (4.2-6.1)
[2016-10-23] MEDS: VANCOMYCIN 1,000 MG in SODIUM CHLORIDE 0.9% 250 ML IVPB SCH (20:30)
[2016-10-23 20:45] LABS: Glucose,Whole Blood 93 mg/dL (75-99)
--- NOTE | 2016-10-23 21:08 | P.CON ---
Consult Note - . Consult date: 10/23/16 Assessment/Plan:: This is a 60-year-old female. She is well-known to ID service as she was treated during her admission April 24 - 2015, septic right hip joint and avascular necrosis and MRSA bacteremia. She was discharged to [facility] with Zyvox to complete a 6 week course. Unsure if patient had follow-up. She also has a past medical history of Crohn's status post bowel resection followed by ileostomy on chronic prednisone, hepatitis C treated with Sergio and in remission followed by Dr. Colon, diabetes mellitus type 2, gastroesophageal reflux disease, hypertension, history of sepsis due to urinary tract infection and kidney stone and ARDS in 2007, bleeding from stoma, anxiety. She had a recent hospitalization in June of this year for acute GI bleed from her stoma requiring laser treatment by Dr. Barakat. Blood cultures on that admission were negative and she did not require any antibiotics. Patient states she had one other episode of small amount of bleeding from her stoma since but did not require admission. Her platelet count is in the 70s and patient states that in 2007 she did have platelet transfusion when she was septic. She has seen Dr. Roth on 2 occasions and did not need follow-up. She denies having any fever or chills, nausea vomiting, dysuria. Patient now returns under the care of Dr. Pena for revision of the right total hip arthroplasty for infection and there were no signs of active infection during the surgery. Wound cultures were obtained during surgery. White count is currently 5.9, hemoglobin is dropped to 6.8. She has been afebrile. Please see consult note as dictated by DONTE Prasanth Glenis Hernandez. Extremity well after her surgery. Pain control is good. It has some anemia which is resolving and now after her infusion. Evidence of any infection is being seen. Receiving routine vancomycin and cefazolin and antibiotic prophylaxis given her history. The wrap pathology at the time of surgery and implantation reveal evidence of no white cells and no bacteria. Expect no difficulties at this time. I agree with the evaluation assessment and plan as dictated by DONTE Prasanth Glenis Hernandez.
[2016-10-23] MEDS: SENNOSIDES-DOCUSATE SODIUM 1 EACH TAB PO SCH (23:12)
[2016-10-24] MEDS: ALPRAZolam 0.5 MG TAB PO SCH ×2 (02:41→14:47)
[2016-10-24] MEDS: GABAPENTIN 100 MG CAP PO SCH ×2 (02:44→08:12)
[2016-10-24] MEDS: ceFAZolin 2 GM in SODIUM CHLORIDE 0.9% 100 ML IVPB SCH (05:34)
[2016-10-24] MEDS ORDERED: PANTOPRAZOLE 40 MG TABLET PO SCH (07:30)
[2016-10-24 07:56] LABS: Anisocytosis Slight; CH 32.3; CHCM 34.1; HCT 24.8 % (34.0-46.0); HDW 3.04; HGB 8.5 gm/dL (11.4-16.0); MCH 32.8 pg (25.0-35.0); MCHC 34.4 g/dL (31.0-37.0); MCV 95.4 fL (80.0-100.0); Mean Platelet Volume 7.1; RBC 2.61 m/uL (3.80-5.40); WBC 8.2 k/uL (3.8-10.6)
[2016-10-24 07:58] LABS: Calcium 7.8 mg/dL (8.4-10.2); Potassium 3.8 mmol/L (3.5-5.1); Total Bilirubin 0.7 mg/dL (0.2-1.3); Total Protein 4.8 g/dL (6.3-8.2)
[2016-10-24 08:11] VITALS: BP 126/64; TEMP 98.3
[2016-10-24] MEDS: LINAGLIPTIN 5 MG TABLET PO SCH (08:12)
[2016-10-24] MEDS: B COMPLEX-VIT C-VIT E-ZINC 1 EACH TAB PO SCH (08:12)
[2016-10-24] MEDS: MELOXICAM 7.5 MG TAB PO SCH (08:12)
[2016-10-24] MEDS: MULTIVITAMINS, THERA 1 EACH TAB PO SCH (08:13)
[2016-10-24] MEDS: HYDROmorphone 1 MG/ML 1 ML SYRINGE IVP PRN (08:13)
[2016-10-24] MEDS: predniSONE 20 MG TAB PO SCH (08:13)
[2016-10-24] MEDS: INSULIN LISPRO (humaLOG) 300 UNIT/3 ML VIAL SQ SCH ×2 (08:27→13:26)
[2016-10-24] MEDS: SODIUM CHLORIDE 0.9% 1,000 ML IV SCH (08:28)
[2016-10-24 08:29] LABS: Glucose,Whole Blood 74 mg/dL (75-99)
[2016-10-24 08:54] VITALS: PULSE 113
[2016-10-24] MEDS ORDERED: ENOXAPARIN 30 MG/0.3 ML SYRINGE SQ SCH (09:00)
--- NOTE | 2016-10-24 09:06 | P.DS ---
Providers Date of admission: 10/22/16 11:01 Expected date of discharge: 10/24/16 Attending physician: Abdulaziz Pena Consults: 10/22/16 15:03 Consult Physician Routine Consulting Provider: Moi Robert Consult Reason/Comments: medical management Do you want consulting provider notified?: Yes 10/23/16 09:28 Consult Physician Routine Consulting Provider: Moi Thayer Consult Reason/Comments: septic prosthetic hip Do you want consulting provider notified?: Yes 10/23/16 13:45 Consult Physician Routine Consulting Provider: Tyron Yousif Consult Reason/Comments: anticoagulation, hx GIB-stoma Do you want consulting provider notified?: Yes Primary care physician: [place] [facility] Course: This is a 60-year-old female with known history of avascular necrosis of the right hip. Patient was scheduled for a total hip arthroplasty in April of 2016. Patient then presented with a primary hip infection and at that time a stage 1 revision was performed. Patient finished her course of IV antibiotics and was cleared by infectious disease physician for stage 2 revision. After discussion and consideration patient elects to proceed with stage 2 revision of the right hip. The patient is seen preoperatively by Dr. Pena and cleared for surgery. Patient is admitted to [facility] on 10/22/2016 for stage 2 revision. The procedures performed without complication or sequelae. The patient is doing well postoperatively. Labs and vital signs are stable on day of discharge. The patient had a low-grade fever overnight but this has resolved and is most likely reactive. On day of discharge patient's hip incision is healing well. There is minimal erythema. There is no drainage noted at this time. There is minimal soft tissue swelling to the hip and thigh. Patient has full foot and ankle motion without difficulty or pain. Patient has been up and walking with physical therapy. Neurovascular status to the right lower extremity is intact. Patient is discharged home in good condition. Please see med rec for accurate list of home medications. Plan - Discharge Summary New Discharge Prescriptions: Sennosides-Docusate Sodium [Senokot-S] 1 tab PO BID #60 tablet traMADol HCl [Ultram] 50 mg PO Q6H PRN #60 tab PRN Reason: Pain Discharge Medication List predniSONE 20 mg PO DAILY 11/07/13 [History] Ferrous Sulfate [Iron (65 MG Elemental)] 325 mg PO Q2D 04/23/16 [History] ALPRAZolam [Xanax] 0.25 mg PO HS PRN 07/06/16 [History] Codeine Sulfate 120 mg PO TID PRN 07/06/16 [History] Albuterol Sulfate [Proair Hfa] 1 - 2 puff INHALATION RT-Q6H PRN 07/11/16 [ History] Linagliptin [Tradjenta] 5 mg PO DAILY 07/11/16 [History] Magnesium Oxide [Mag-Ox] 400 mg PO DAILY 10/19/16 [History] Multivits-Min/Iron/FA/Lutein [Centrum Silver Women Tablet] 1 tab PO DAILY [History] Vitamin B Complex 1 cap PO DAILY 10/19/16 [History] Sennosides-Docusate Sodium [Senokot-S] 1 tab PO BID #60 tablet 10/24/16 [Rx] traMADol HCl [Ultram] 50 mg PO Q6H PRN #60 tab 10/24/16 [Rx] Follow up Appointment(s)/Referral(s): Abdulaziz Pena DO [Doctor of Osteopathic Medicine] - 2 Weeks Activity/Diet/Wound Care/Special Instructions: Weightbearing as tolerated with walker May shower after 2 days if no drainage from the incision Follow-up with [facility] in 2 weeks with any questions or concerns Discharge Disposition: HOME WITH HOME HEALTH SERVICES
[2016-10-24] MEDS: traMADol 50 MG TAB PO SCH ×2 (11:44→16:21)
[2016-10-24 11:49] LABS: Glucose,Whole Blood 163 mg/dL (75-99)
--- NOTE | 2016-10-24 14:53 | P.PN ---
Subjective This is a 60-year-old female. Her primary care physician Dr. Recinos. She has a past medical history of Crohn's status post bowel resection followed by ileostomy, hepatitis C treated with Harvoni and in remission followed by Dr. Colon, diabetes mellitus type 2, gastroesophageal reflux disease, hypertension, history of sepsis due to urinary tract infection and kidney stone and ARDS in 2007, bleeding from stoma, anxiety, septic joint and avascular necrosis of the right hip and MRSA bacteremia treated in April 2016 under the care of Dr. Thayer. She is most recent hospitalization was in June 2016 which time she was treated for acute GI bleed from her stoma status post laser treatment by Dr. Barakat with transfusion of packed RBCs. Repeat blood cultures at that time were negative. She was stabilized and discharged home. Patient states she had one other episode of small amount of bleeding from her stoma since that time but did not require admission. Her platelet count is in the 70s and patient states that in 2007 she did have platelet transfusion when she was septic. She has seen Dr. Roth on 2 occasions and did not need follow-up. She denies having any fever or chills, nausea vomiting, dysuria. She was cleared for surgery by Dr. Thayer. Patient now returns under the care of Dr. Pena for revision of the right total hip arthroplasty for infection and there were no signs of active infection during the surgery. Consult with Dr. Thayer is in place and consult added for Dr. Yousif regarding anticoagulation to prevent DVT with concern for frequent GI bleeds. Patient does not want to be on anticoagulation. 5: Patient has been cleared for discharge by orthopedics. Dr. Thayer is no plan for any antibiotics at home. Awaiting oncology recommendations for anticoagulation. Patient will be discharged on aspirin baby strength twice daily unless changed by oncology. Objective - Vital Signs Vital signs: Vital Signs Temp 98.3 F 10/24/16 07:00 Pulse 113 H 10/24/16 08:00 Resp 16 10/24/16 08:00 BP 126/64 10/24/16 07:00 Pulse Ox 97 10/24/16 07:00 Intake & Output 10/23/16 10/24/16 10/24/16 18:59 06:59 18:59 Intake Total 310 350 Output Total 1200 400 Balance -890 350 -400 Weight 65.317 kg Intake: Intake, IV Titration 200 Amount ceFAZolin 2 gm In Sodium 200 Chloride 0.9% 100 ml @ 100 mls/hr IVPB Q[facility] Rx#:[id number] Oral 150 Blood Product 310 Rc As-1 Unit 310 [id number] Output: Stool 1200 400 Other: Voiding Method Toilet Toilet # Voids 2 2 # Bowel Movements 1 - Exam Gen: This is a 60-year-old female. She is sitting up in bed and appears to be in no acute distress while at rest. HEENT: Head is atraumatic, normocephalic. Pupils equal, round. Sclerae is anicteric. Oral mucous membranes are dry. No thrush noted. NECK: Supple. No JVD. No lymphadenopathy. No thyromegaly. LUNGS: Clear to auscultation. No wheezes or rhonchi. No intercostal retractions. HEART: Regular rate and rhythm. No murmur. ABDOMEN: Soft. Bowel sounds are present. No masses. No tenderness. Right- sided ileostomy with no active bleeding. EXTREMITIES: No pedal edema. No calf tenderness. Resting in place to the right hip. NEUROLOGICAL: Patient is awake, alert and oriented x3. Cranial nerves 2 through 12 are grossly intact. - Labs CBC & Chem 7: 10/24/16 06:53 10/24/16 06:53 Labs: Abnormal Lab Results - Last 24 Hours (Table) 10/12/16 10/23/16 10/23/16 Range/Units 17:14 09:37 17:44 RBC 2.86 L (3.80-5.40) m/uL Hgb 9.0 L D (11.4-16.0) gm/dL Hct 27.8 L (34.0-46.0) % RDW 16.2 H (11.5-15.5) % Plt Count 78 L (150-450) k/uL Sodium (137-145) mmol/L BUN (7-17) mg/dL Creatinine (0.52-1.04) mg/dL Glucose (74-99) mg/dL POC Glucose (mg/dL) (75-99) mg/dL Calcium (8.4-10.2) mg/dL Total Bilirubin (0.2-1.3) mg/dL AST (14-36) U/L Alkaline Phosphatase (38-126) U/L Total Protein (6.3-8.2) g/dL Albumin (3.5-5.0) g/dL Crossmatch See Detail See Detail 10/23/16 10/24/16 10/24/16 Range/Units 17:44 06:53 06:53 RBC 2.61 L (3.80-5.40) m/uL Hgb 8.5 L (11.4-16.0) gm/dL Hct 24.8 L (34.0-46.0) % RDW 16.0 H (11.5-15.5) % Plt Count 77 L (150-450) k/uL Sodium 135 L (137-145) mmol/L BUN 25 H 19 H (7-17) mg/dL Creatinine 1.39 H 1.14 H (0.52-1.04) mg/dL Glucose 101 H (74-99) mg/dL POC Glucose (mg/dL) (75-99) mg/dL Calcium 8.2 L 7.8 L (8.4-10.2) mg/dL Total Bilirubin 1.4 H (0.2-1.3) mg/dL AST 41 H 37 H (14-36) U/L Alkaline Phosphatase 31 L 31 L (38-126) U/L Total Protein 5.3 L 4.8 L (6.3-8.2) g/dL Albumin 3.0 L 2.6 L (3.5-5.0) g/dL Crossmatch 10/24/16 Range/Units 08:26 RBC (3.80-5.40) m/uL Hgb (11.4-16.0) gm/dL Hct (34.0-46.0) % RDW (11.5-15.5) % Plt Count (150-450) k/uL Sodium (137-145) mmol/L BUN (7-17) mg/dL Creatinine (0.52-1.04) mg/dL Glucose (74-99) mg/dL POC Glucose (mg/dL) 74 L (75-99) mg/dL Calcium (8.4-10.2) mg/dL Total Bilirubin (0.2-1.3) mg/dL AST (14-36) U/L Alkaline Phosphatase (38-126) U/L Total Protein (6.3-8.2) g/dL Albumin (3.5-5.0) g/dL Crossmatch Microbiology - Last 24 Hours (Table) 10/22/16 13:10 Gram Stain - Preliminary Hip - Left Wound Culture - Preliminary Assessment and Plan Plan: 1. History of right hip septic joint and avascular necrosis with sepsis, septicemia and MRSA bacteremia in April 2016. Patient is status post stage II revision of right total hip arthroplasty with Dr. Pena done on 2016. She is currently on cefazolin and vancomycin. Dr. Thayer is on consult. Regarding pain control, patient is currently on codeine 120 mg 3 times daily which she takes at home, Dilaudid as needed and gabapentin will be added. 2. Acute blood loss anemia with hemoglobin of 6.8 with history of chronic anemia due to Crohn's. Transfusion of one unit of packed RBCs scheduled for today 3. Thrombocytopenia with history of the same with episode of sepsis requiring platelet transfusion in 2007. Consult with Dr. Yousif for recommendations for DVT prophylaxis. 4.Diabetes mellitus type 2. Patient is on Tradjenta at home which will be continued along with Humalog scale. 5. History of hypertension, not currently on medication. 6. Crohn's disease status post bowel resection and ileostomy, stable. Patient is normally on prednisone 20 mg daily. 7. Generalized anxiety disorder. Continue Xanax increased to 0.5 mg at bedtime. 8. History of hepatitis C status post Harvoni treatment followed by rianna Hicks. 9. Gastrointestinal prophylaxis. Continue Protonix 40 mg daily. 10. DVT prophylaxis. SCDs and CRISTHIAN hose, baby aspirin twice daily for home. Discharge plan: To be determined Impression and plan of care have been directed as dictated by the signing physician. Glenis Hernandez nurse practitioner acting as scribe for signing physician. Cc: Dr. Fab Recinos Time with Patient: Greater than 30
== END 2016-10-24 17:38 | disposition home health service (06) | DRG 467 ==
LOC: 2ORMAIN 11:01 → 3SUR 15:01
PROVIDERS: ADMIT Orthopaedic Surgery; ATTEND Orthopaedic Surgery
PROC: 0SP908Z Removal of Spacer from Right Hip Joint, Open Approach (ICD-10-PCS; principal; 2016-10-22 12:30)
PROC: 30233N1 Transfusion of Nonautologous Red Blood Cells into Peripheral Vein, Percutaneous Approach (ICD-10-PCS; principal; 2016-10-22 12:30)
PROC: 0SUA09Z Supplement Right Hip Joint, Acetabular Surface with Liner, Open Approach (ICD-10-PCS; principal; 2016-10-22 12:30)
PROC: 0SP909Z Removal of Liner from Right Hip Joint, Open Approach (ICD-10-PCS; principal; 2016-10-22 12:30)
PROC: 0SR904A Replacement of Right Hip Joint with Ceramic on Polyethylene Synthetic Substitute, Uncemented, Open Approach (ICD-10-PCS; principal; 2016-10-22 12:30)
DX: Z47.32 Aftercare following explantation of hip joint prosthesis (principal); D62 Acute posthemorrhagic anemia; I10 Essential (primary) hypertension; K50.90 Crohn's disease, unspecified, without complications; B95.62 Methicillin resistant Staphylococcus aureus infection as the cause of diseases classified elsewhere; E11.9 Type 2 diabetes mellitus without complications; K21.9 Gastro-esophageal reflux disease without esophagitis; Z79.52 Long term (current) use of systemic steroids; Z79.84 Long term (current) use of oral hypoglycemic drugs; Z87.891 Personal history of nicotine dependence; Z79.899 Other long term (current) drug therapy
CPT/HCPCS: 36430; 73501; 80053; 81001; 83036; 85025; 85027; 86850; 86900; 86901; 86920; 87070; 87075; 87205; 88305; 88331

== ENCOUNTER 2016-11-01 22:46 | Emergency (ER) | payer OTHER, MEDICARE ==
[2016-11-01 23:00] VITALS: RESP 18
--- NOTE | 2016-11-02 00:24 | ED ---
General Adult HPI - General Chief complaint: Skin/Abscess/Foreign Body Stated complaint: Post procedure bleed Time Seen by Provider: 11/01/16 23:53 Source: patient, family, RN notes reviewed Mode of arrival: wheelchair Limitations: no limitations - History of Present Illness Initial comments: Patient is a pleasant 60-year-old female presenting to the emergency Department with bleeding from her ostomy site. Patient has had similar problems approximately 30 times in the past. Patient does use silver nitrate sticks at home. Patient has an ileostomy. Patient did have right hip surgery 10 days ago that is doing fine. Patient however is taking aspirin. Bleeding seemed to be somewhat mild and has resolved. No fatigue or lightheadedness. - Related Data Home Medications Medication Instructions Recorded Confirmed predniSONE 20 mg PO DAILY 11/07/13 10/22/16 Ferrous Sulfate [Iron (65 MG 325 mg PO Q2D 04/23/16 10/22/16 Elemental)] ALPRAZolam [Xanax] 0.25 mg PO HS PRN 07/06/16 10/22/16 Codeine Sulfate 120 mg PO TID PRN 07/06/16 10/22/16 Albuterol Sulfate [Proair Hfa] 1 - 2 puff INHALATION RT-Q6H PRN 07/11/16 Linagliptin [Tradjenta] 5 mg PO DAILY 07/11/16 10/22/16 Magnesium Oxide [Mag-Ox] 400 mg PO DAILY 10/19/16 10/22/16 Multivits-Min/Iron/FA/Lutein 1 tab PO DAILY 10/19/16 10/22/16 [Centrum Silver Women Tablet] Vitamin B Complex 1 cap PO DAILY 10/19/16 10/22/16 Previous Rx's Medication Instructions Recorded Aspirin EC [Ecotrin Low Dose] 81 mg PO BID #60 tablet. 10/24/16 Sennosides-Docusate Sodium 1 tab PO BID #60 tablet 10/24/16 [Senokot-S] traMADol HCl [Ultram] 50 mg PO Q6H PRN #60 tab 10/24/16 Allergies Allergy/AdvReac Type Severity Reaction Status Date / Time Quinolones Allergy Severe Anaphylaxis Verified 11/01/16 23:00 adhesive tape Allergy Rash/Hives Verified 11/01/16 23:00 Iodinated Contrast Media - Allergy Unknown Verified 11/01/16 23:00 Oral and [Iodinated Contrast Media - IV Dye] acetaminophen [From Tylenol] AdvReac Severe Liver Verified 11/01/16 23:00 disease NSAIDS (Non-Steroidal AdvReac Severe Unknown Verified 11/01/16 23:00 Anti-Inflamma Review of Systems ROS Statement: Those systems with pertinent positive or pertinent negative responses have been documented in the HPI. ROS Other: All systems not noted in ROS Statement are negative. Constitutional: Denies: fever Eyes: Denies: eye pain ENT: Denies: ear pain Respiratory: Denies: cough Cardiovascular: Denies: chest pain Endocrine: Denies: fatigue Gastrointestinal: Denies: abdominal pain Genitourinary: Denies: dysuria Musculoskeletal: Denies: back pain Skin: Denies: rash Neurological: Denies: headache Past Medical History Past Medical History: Diabetes Mellitus, GERD/Reflux, Liver Disease, Osteoarthritis (OA) Additional Past Medical History / Comment(s): crohns, hx. hep c-currently in remission, hx. sepsis & ards 2007, has ileostomy, hx. kidney stones, hx. of infection in hip-was on antibiotics, has spacer in, hx. anemia related to intermittent bleeding from stoma, has past hx. elevated heart rate, states is related to when she is anemic, just finished antibiotic for UTI History of Any Multi-Drug Resistant Organisms: MRSA Date of last positivie culture/infection: 04/25/16 MDRO Source:: Blood & Right Hip Past Surgical History: Appendectomy, Bowel Resection, Cholecystectomy, Hernia Repair, Hysterectomy, Tubal Ligation Additional Past Surgical History / Comment(s): ileostomy 2009 WITH 3-4 RE- SUTURING EPISODES RELATED TO BLEEDING, ileoscopy w/argon gas coagulation of stoma Past Anesthesia/Blood Transfusion Reactions: No Reported Reaction Past Psychological History: Anxiety Smoking Status: Former smoker Past Alcohol Use History: None Reported Additional Past Alcohol Use History / Comment(s): quit smoking 2007, 1ppd for 30 yrs. Past Drug Use History: None Reported - Past Family History Mother Additional Family Medical History / Comment(s): Mother at age 88 from CVA. Sister(s) Additional Family Medical History / Comment(s): Patient has 3 sisters with no major medical problems. Patient does not have any brothers. Patient has 2 sons with no major medical problems. Father Family Medical History: Cancer Additional Family Medical History / Comment(s): MOTHER- DIABETES General Exam Limitations: no limitations General appearance: alert Head exam: Present: atraumatic Eye exam: Present: normal appearance Neck exam: Present: normal inspection Respiratory exam: Present: normal lung sounds bilaterally Cardiovascular Exam: Present: regular rate, normal rhythm GI/Abdominal exam: Present: soft, other (Ileostomy right upper abdomen with trace amount of blood near the ostomy site.). Absent: tenderness Extremities exam: Present: normal inspection Neurological exam: Present: alert Psychiatric exam: Present: normal affect, normal mood Skin exam: Absent: rash Course Vital Signs 11/01/16 22:55 Temperature 99.2 F Pulse Rate 93 Respiratory 18 Rate Blood Pressure 169/74 O2 Sat by Pulse 97 Oximetry Medical Decision Making - Medical Decision Making Patient did indeed her bag and was observed in the emergency department. Patient with no bleeding at this time. Patient and family are comfortable with discharge home. They're advised close follow-up with Dr. Barakat and to consider revision. Disposition Clinical Impression: GI bleed Disposition: HOME SELF-CARE Condition: Stable Instructions: Postoperative Bleeding (ED) Additional Instructions: Please follow-up with primary care physician, gastroenterology Dr. Hudson, and Dr. Barakat in the next day or 2 for recheck. Consider revision of the ileostomy site. Return for increased bleeding, lightheadedness, weakness or dizziness, worsening symptoms or other concerns or shortness of breath. Referrals: Fab Recinos DO [Primary Care Provider] - 1-2 days Time of Disposition: 00:24
[2016-11-02 01:02] VITALS: BP 133/69; PULSE 70; TEMP 97.4
== END 2016-11-02 01:01 | disposition home or self-care (01) ==
LOC: EC 22:46
DX: K92.2 Gastrointestinal hemorrhage, unspecified (principal); K21.9 Gastro-esophageal reflux disease without esophagitis; E11.9 Type 2 diabetes mellitus without complications; D64.9 Anemia, unspecified; Z79.52 Long term (current) use of systemic steroids; Z79.899 Other long term (current) drug therapy; Z87.891 Personal history of nicotine dependence; Z88.6 Allergy status to analgesic agent; Z91.041 Radiographic dye allergy status; Z91.048 Other nonmedicinal substance allergy status; Z88.8 Allergy status to other drugs, medicaments and biological substances; Z87.19 Personal history of other diseases of the digestive system; Z90.49 Acquired absence of other specified parts of digestive tract; Z93.2 Ileostomy status
CPT/HCPCS: 99283

== ENCOUNTER 2016-11-02 17:07 | Emergency (ER) | payer OTHER, MEDICARE ==
[2016-11-02 17:50] VITALS: RESP 18
--- NOTE | 2016-11-02 18:21 | ED ---
General Adult HPI - General Source: patient, RN notes reviewed Mode of arrival: wheelchair Limitations: no limitations <Mary Tilley - Last Filed: 11/02/16 20:08> <Khai Christie - Last Filed: 11/02/16 20:55> - General Chief complaint: Abdominal Pain Stated complaint: BLEEDING AT ILIOSTOMY SIGHT Time Seen by Provider: 11/02/16 17:54 - History of Present Illness Initial comments: Patient's 60-year-old female presents to the emergency room for evaluation of bleeding ileostomy. Patient states she had ileostomy bag placed about 9-10 years ago due to Crohn's disease. Patient states that she has been here multiple times for bleeding ileostomy and anemia. Patient states that she has had multiple surgical procedures to stop the bleeding. Patient states yesterday it began bleeding again. Patient states she came here and she was sent home since the bleeding subsided. Patient states that every time she moves or stands up a large amount of bright red blood while poor into the ostomy bag. Patient states she is beginning to feel lightheaded. Patient states she's afraid she's going to become anemic. Patient states that they spoke to Dr. Barakat's stenographer secretary and she was advised to come to the emergency room to be evaluated. Patient denies any increasing pain. Patient states that he had a right total hip replacement on October 22. Patient denies any worsening pain. Patient denies any drainage from the incision site. Patient denies fevers or chills. Patient denies nausea or vomiting. Patient denies chest pain or shortness of breath. (Mary Tilley) - Related Data Home Medications Medication Instructions Recorded Confirmed predniSONE 20 mg PO DAILY 11/07/13 11/02/16 Ferrous Sulfate [Iron (65 MG 325 mg PO Q48H 04/23/16 11/02/16 Elemental)] ALPRAZolam [Xanax] 0.25 mg PO DAILY PRN 07/06/16 11/02/16 Codeine Sulfate 120 mg PO TID PRN 07/06/16 11/02/16 Linagliptin [Tradjenta] 5 mg PO DAILY 07/11/16 11/02/16 Magnesium Oxide [Mag-Ox] 400 mg PO DAILY 10/19/16 11/02/16 Multivits-Min/Iron/FA/Lutein 1 tab PO DAILY 10/19/16 11/02/16 [Centrum Silver Women Tablet] Vitamin B Complex 1 cap PO DAILY 10/19/16 11/02/16 Previous Rx's Medication Instructions Recorded Aspirin EC [Ecotrin Low Dose] 81 mg PO BID #60 tablet. 10/24/16 traMADol HCl [Ultram] 50 mg PO Q6H PRN #60 tab 10/24/16 Allergies Allergy/AdvReac Type Severity Reaction Status Date / Time adhesive tape Allergy Severe Rash/Hives/Skin Verified 11/02/16 19:09 Peeling Quinolones Allergy Severe Anaphylaxis Verified 11/02/16 19:09 /Swelling acetaminophen [From Tylenol] AdvReac Severe Liver Verified 11/02/16 19:09 Damage Iodinated Contrast Media - AdvReac Severe Chest Pain Verified 11/02/16 19:09 Oral and [Iodinated Contrast Media - IV Dye] NSAIDS (Non-Steroidal AdvReac Severe GI Verified 11/02/16 19:09 Anti-Inflamma Bleeding/Liver Damage Review of Systems ROS Other: All systems not noted in ROS Statement are negative. <Mary Tilley - Last Filed: 11/02/16 20:08> ROS Other: All systems not noted in ROS Statement are negative. <Khai Christie - Last Filed: 11/02/16 20:55> ROS Statement: Those systems with pertinent positive or pertinent negative responses have been documented in the HPI. Past Medical History Past Medical History: Diabetes Mellitus, GERD/Reflux, Liver Disease, Osteoarthritis (OA) Additional Past Medical History / Comment(s): crohns, hx. hep c-currently in remission, hx. sepsis & ards 2007, has ileostomy, hx. kidney stones, hx. of infection in hip-was on antibiotics, has spacer in, hx. anemia related to intermittent bleeding from stoma, has past hx. elevated heart rate, states is related to when she is anemic, just finished antibiotic for UTI History of Any Multi-Drug Resistant Organisms: MRSA Date of last positivie culture/infection: 04/25/16 MDRO Source:: Blood & Right Hip Past Surgical History: Appendectomy, Bowel Resection, Cholecystectomy, Hernia Repair, Hysterectomy, Tubal Ligation Additional Past Surgical History / Comment(s): ileostomy 2009 WITH 3-4 RE- SUTURING EPISODES RELATED TO BLEEDING, ileoscopy w/argon gas coagulation of stoma Past Anesthesia/Blood Transfusion Reactions: No Reported Reaction Past Psychological History: Anxiety Smoking Status: Former smoker Past Alcohol Use History: None Reported Additional Past Alcohol Use History / Comment(s): quit smoking 2008, 1ppd for 30 yrs. Past Drug Use History: None Reported - Past Family History Mother Additional Family Medical History / Comment(s): Mother at age 88 from CVA. Sister(s) Additional Family Medical History / Comment(s): Patient has 3 sisters with no major medical problems. Patient does not have any brothers. Patient has 2 sons with no major medical problems. Father Family Medical History: Cancer Additional Family Medical History / Comment(s): MOTHER- DIABETES <Mary Tilley - Last Filed: 11/02/16 20:08> General Exam Limitations: no limitations General appearance: alert, in no apparent distress Head exam: Present: atraumatic, normocephalic, normal inspection Eye exam: Present: normal appearance Pupils: Present: normal accommodation ENT exam: Present: normal exam Neck exam: Present: normal inspection Respiratory exam: Present: normal lung sounds bilaterally. Absent: respiratory distress Cardiovascular Exam: Present: regular rate, normal rhythm, normal heart sounds GI/Abdominal exam: Present: soft, other (ileostomy bag in place. Mild bright red blood draining from ostomy site.). Absent: distended, tenderness, guarding , rebound, rigid Extremities exam: Present: normal inspection Back exam: Present: normal inspection Neurological exam: Present: alert, oriented X3, CN II-XII intact, normal gait Psychiatric exam: Present: normal affect, normal mood Skin exam: Present: warm, dry, intact, normal color. Absent: rash <Mary Tilley - Last Filed: 11/02/16 20:08> <Khai Christie - Last Filed: 11/02/16 20:55> - General Exam Comments Initial Comments: sitting in exam room, no acute distress. (Mary Tilley) Procedures <Mary Tilley - Last Filed: 11/02/16 20:08> <Khai Christie - Last Filed: 11/02/16 20:55> - Procedures Initial comment: Cautery: Patient had bleeding from the upper left portion of her ostomy. This was active bleeding. Bleeding was controlled using 3 silver nitrate sticks. Verbal consent given. Emergent situation. No complications (Khai Christie) Medical Decision Making - Lab Data Result diagrams: 11/02/16 18:04 11/02/16 18:04 <Mary Tilley - Last Filed: 11/02/16 20:08> - Lab Data Result diagrams: 11/02/16 18:04 11/02/16 18:04 <Khai Christie - Last Filed: 11/02/16 20:55> - Medical Decision Making Patient is a 60-year-old female presents emergency room for bleeding ileostomy. Bleeding has subsided after silver nitrate. Dr. Barakat is being contacted. Case discussed Dr. Christie and passed on to Dr. Christie at 8:10 PM. (Mary Tilley) Case was discussed in detail with Dr. Barakat following cautery. He recommends discharge and follow-up on Saturday. Does not feel patient needs to stay for observation. Patient did get up and ambulate without bleeding and has continued hemostasis. (Khai Christei) - Lab Data Lab Results 11/02/16 11/02/16 11/02/16 Range/Units 18:04 18:04 18:04 WBC 8.7 (3.8-10.6) k/uL RBC 3.23 L (3.80-5.40) m/uL Hgb 10.3 L (11.4-16.0) gm/dL Hct 30.9 L (34.0-46.0) % MCV 95.8 (80.0-100.0) fL MCH 32.0 (25.0-35.0) pg MCHC 33.4 (31.0-37.0) g/dL RDW 15.9 H (11.5-15.5) % Plt Count 228 D (150-450) k/uL Neutrophils % 87 % Lymphocytes % 8 % Monocytes % 4 % Eosinophils % 0 % Basophils % 0 % Neutrophils # 7.5 (1.3-7.7) k/uL Lymphocytes # 0.7 L (1.0-4.8) k/uL Monocytes # 0.3 (0-1.0) k/uL Eosinophils # 0.0 (0-0.7) k/uL Basophils # 0.0 (0-0.2) k/uL Hypochromasia Slight Poikilocytosis Slight PT 10.4 (9.0-12.0) sec INR 1.0 (<1.1) Sodium 136 L (137-145) mmol/L Potassium 4.9 (3.5-5.1) mmol/L Chloride 94 L (98-107) mmol/L Carbon Dioxide 32 H (22-30) mmol/L Anion Gap 10 mmol/L BUN 22 H (7-17) mg/dL Creatinine 1.10 H (0.52-1.04) mg/dL Est GFR (MDRD) Af Amer >60 (>60 ml/min/1.73 sqM) Est GFR (MDRD) Non-Af 51 (>60 ml/min/1.73 sqM) Glucose 115 H (74-99) mg/dL Calcium 9.5 (8.4-10.2) mg/dL Total Bilirubin 1.1 (0.2-1.3) mg/dL AST 57 H (14-36) U/L ALT 49 (9-52) U/L Alkaline Phosphatase 124 (38-126) U/L Total Protein 6.8 (6.3-8.2) g/dL Albumin 3.9 (3.5-5.0) g/dL Disposition <Mary Tilley - Last Filed: 11/02/16 20:08> <Khai Christie - Last Filed: 11/02/16 20:55> Clinical Impression: GI bleed Disposition: HOME SELF-CARE Condition: Stable Instructions: Postoperative Bleeding (ED) Additional Instructions: Please follow-up Saturday with Dr. Barakat. Return for bleeding, weakness, lightheadedness, worsening symptoms or other concerns. Referrals: Fab Recinos DO [Primary Care Provider] - 1-2 days Anuel Barakat MD [STAFF PHYSICIAN] - 1-2 days
[2016-11-02 19:15] LABS: Basophils % (A) 0 %; CHCM 33.6; Eosinophils % (A) 0 %; HCT 30.9 % (34.0-46.0); HDW 3.57; HGB 10.3 gm/dL (11.4-16.0); Hypochromasia Slight; Luc % (Auto) 1; Lymphocytes # (A) 0.7 k/uL (1.0-4.8); Lymphocytes % (A) 8 %; MCHC 33.4 g/dL (31.0-37.0); MCV 95.8 fL (80.0-100.0); Mean Platelet Volume 7.3; Monocytes # (A) 0.3 k/uL (0-1.0); Monocytes % (A) 4 %; Neutrophils # (A) 7.5 k/uL (1.3-7.7); Neutrophils % (A) 87 %; Poikilocytosis Slight; RBC 3.23 m/uL (3.80-5.40); RDW 15.9 % (11.5-15.5); WBC 8.7 k/uL (3.8-10.6); WBC (Perox) 8.34
[2016-11-02 19:22] LABS: ALT 49 U/L (9-52); AST 57 U/L (14-36); Alkaline Phosphatase 124 U/L (38-126); Anion Gap 10 mmol/L; Blood Urea Nitrogen 22 mg/dL (7-17); Calcium 9.5 mg/dL (8.4-10.2); Carbon Dioxide 32 mmol/L (22-30); Chloride 94 mmol/L (98-107); Glucose 115 mg/dL (74-99); Non-African American GFR(MDRD) 51 (>60 ml/min/1.73 sqM); Potassium 4.9 mmol/L (3.5-5.1); Sodium 136 mmol/L (137-145); Total Bilirubin 1.1 mg/dL (0.2-1.3); Total Protein 6.8 g/dL (6.3-8.2)
[2016-11-02] MEDS ORDERED: SODIUM CHLORIDE 0.9% 1,000 ML IV ONE (19:27)
[2016-11-02 19:43] LABS: Prothrombin Time 10.4 sec (9.0-12.0)
[2016-11-02 21:32] VITALS: BP 144/64; PULSE 98; TEMP 99.8
== END 2016-11-02 21:51 | disposition home or self-care (01) ==
LOC: EC 17:07
DX: K92.2 Gastrointestinal hemorrhage, unspecified (principal); R42 Dizziness and giddiness; E11.9 Type 2 diabetes mellitus without complications; D64.9 Anemia, unspecified; F41.9 Anxiety disorder, unspecified; Z87.891 Personal history of nicotine dependence; Z79.84 Long term (current) use of oral hypoglycemic drugs; Z79.52 Long term (current) use of systemic steroids; Z79.899 Other long term (current) drug therapy; Z91.041 Radiographic dye allergy status; Z88.6 Allergy status to analgesic agent; Z88.1 Allergy status to other antibiotic agents; Z91.048 Other nonmedicinal substance allergy status; Z90.49 Acquired absence of other specified parts of digestive tract; Z98.890 Other specified postprocedural states
CPT/HCPCS: 36415; 80053; 85025; 85610; 96360; 96361; 99284

== ENCOUNTER 2016-11-03 11:03 | Emergency (ER) | payer OTHER, MEDICARE ==
--- NOTE | 2016-11-03 13:05 | ED ---
General Adult HPI - General Chief complaint: Recheck/Abnormal Lab/Rx Stated complaint: BLEEDING AT OSTOMY SIGHT Time Seen by Provider: 11/03/16 12:12 Source: patient, RN notes reviewed, old records reviewed Mode of arrival: wheelchair Limitations: no limitations - History of Present Illness Initial comments: Is a 52-year-old female here for evaluation. This patient presents for evaluation of recurrent bleeding from ostomy site. Patient was in the ER yesterday and multiple ER visits for the same issue. He states he recently started on aspirin secondary to replacement, does notice bleeding. Patient denies lightheadedness dizziness or weakness, feelings of passing out - Related Data Home Medications Medication Instructions Recorded Confirmed predniSONE 20 mg PO DAILY 11/07/13 11/03/16 Ferrous Sulfate [Iron (65 MG 325 mg PO Q48H 04/23/16 11/03/16 Elemental)] ALPRAZolam [Xanax] 0.25 mg PO DAILY PRN 07/06/16 11/03/16 Codeine Sulfate 120 mg PO TID PRN 07/06/16 11/03/16 Linagliptin [Tradjenta] 5 mg PO DAILY 07/11/16 11/03/16 Magnesium Oxide [Mag-Ox] 400 mg PO DAILY 10/19/16 11/03/16 Multivits-Min/Iron/FA/Lutein 1 tab PO DAILY 10/19/16 11/03/16 [Centrum Silver Women Tablet] Vitamin B Complex 1 cap PO DAILY 10/19/16 11/03/16 Previous Rx's Medication Instructions Recorded Aspirin EC [Ecotrin Low Dose] 81 mg PO BID #60 tablet. 10/24/16 traMADol HCl [Ultram] 50 mg PO Q6H PRN #60 tab 10/24/16 Allergies Allergy/AdvReac Type Severity Reaction Status Date / Time adhesive tape Allergy Severe Rash/Hives/Skin Verified 11/03/16 12:22 Peeling Quinolones Allergy Severe Anaphylaxis Verified 11/03/16 12:22 /Swelling acetaminophen [From Tylenol] AdvReac Severe Liver Verified 11/03/16 12:22 Damage Iodinated Contrast Media - AdvReac Severe Chest Pain Verified 11/03/16 12:22 Oral and [Iodinated Contrast Media - IV Dye] NSAIDS (Non-Steroidal AdvReac Severe GI Verified 11/03/16 12:22 Anti-Inflamma Bleeding/Liver Damage Review of Systems ROS Statement: Those systems with pertinent positive or pertinent negative responses have been documented in the HPI. ROS Other: All systems not noted in ROS Statement are negative. Past Medical History Past Medical History: Diabetes Mellitus, GERD/Reflux, Liver Disease, Osteoarthritis (OA) Additional Past Medical History / Comment(s): crohns, hx. hep c-currently in remission, hx. sepsis & ards 2007, has ileostomy, hx. kidney stones, hx. of infection in hip-was on antibiotics, has spacer in, hx. anemia related to intermittent bleeding from stoma, has past hx. elevated heart rate, states is related to when she is anemic, History of Any Multi-Drug Resistant Organisms: MRSA Date of last positivie culture/infection: 04/25/16 MDRO Source:: Blood & Right Hip Past Surgical History: Appendectomy, Bowel Resection, Cholecystectomy, Hernia Repair, Hysterectomy, Tubal Ligation Additional Past Surgical History / Comment(s): ileostomy 2009 WITH 3-4 RE- SUTURING EPISODES RELATED TO BLEEDING, ileoscopy w/argon gas coagulation of stoma, hip Past Anesthesia/Blood Transfusion Reactions: No Reported Reaction Past Psychological History: Anxiety Smoking Status: Former smoker Past Alcohol Use History: None Reported Additional Past Alcohol Use History / Comment(s): quit smoking 2007, 1ppd for 30 yrs. Past Drug Use History: None Reported - Past Family History Mother Additional Family Medical History / Comment(s): Mother at age 88 from CVA. Sister(s) Additional Family Medical History / Comment(s): Patient has 3 sisters with no major medical problems. Patient does not have any brothers. Patient has 2 sons with no major medical problems. Father Family Medical History: Cancer Additional Family Medical History / Comment(s): MOTHER- DIABETES General Exam Limitations: no limitations General appearance: alert, in no apparent distress Head exam: Present: atraumatic, normocephalic, normal inspection Eye exam: Present: normal appearance, PERRL, EOMI. Absent: scleral icterus, conjunctival injection, periorbital swelling ENT exam: Present: normal exam, mucous membranes moist Neck exam: Present: normal inspection. Absent: tenderness, meningismus, lymphadenopathy Respiratory exam: Present: normal lung sounds bilaterally. Absent: respiratory distress, wheezes, rales, rhonchi, stridor Cardiovascular Exam: Present: regular rate, normal rhythm, normal heart sounds. Absent: systolic murmur, diastolic murmur, rubs, gallop, clicks GI/Abdominal exam: Present: soft, normal bowel sounds. Absent: distended, tenderness, guarding, rebound, rigid Extremities exam: Present: normal inspection, full ROM, normal capillary refill. Absent: tenderness, pedal edema, joint swelling, calf tenderness Back exam: Present: normal inspection Neurological exam: Present: alert, oriented X3, CN II-XII intact Psychiatric exam: Present: normal affect, normal mood Skin exam: Present: warm, dry, intact, normal color. Absent: rash Course Vital Signs 11/03/16 11:04 Temperature 98.3 F Pulse Rate 90 Respiratory 18 Rate Blood Pressure 129/69 O2 Sat by Pulse 100 Oximetry - Reevaluation(s) Reevaluation #1: 11/03/16 13:03 Dr Barakat who is patient's surgeon is an ER evaluating patient Medical Decision Making - Medical Decision Making 60 female to the ER for reevaluation bleeding is postop, Dr. Barakat saw patient emergency room, bleeding controlled the patient will be discharged home Disposition Clinical Impression: Post-op bleeding Disposition: HOME SELF-CARE Condition: Good Instructions: Postoperative Bleeding (ED) Referrals: Fab Recinos DO [Primary Care Provider] - 1-2 days
[2016-11-03 13:30] VITALS: BP 155/71; PULSE 83; RESP 16; TEMP 98.4
--- NOTE | 2016-11-03 13:38 | P.CON ---
Consult Note - . Consult date: 11/03/16 Assessment/Plan:: The patient is well known to me. She had had a total colectomy with ileostomy for pump located the Crohn's disease in the remote past. Has had several episodes of the bleeding from her ileostomy site workup was essentially negative except for bleeding most likely right at the surface of the ileostomy where there was a lot of irritation granulation tissue. Does have a history of the hepatitis C liver insufficiency and thrombocytopenia. The bleeding has been under fairly good control in that she's not had bleeding for several months until love a few days ago. She has been on aspirin for the last 10 days status post right hip surgery. She presented to the emergency room at least twice in the last week the bleeding was controlled with pressure. She however came back today with the more active bleeding again. She had about 150 mL's of blood mixed with stool in her ileostomy bag. The past history well-documented the on several recent admissions. On examination patient is awake alert in no distress vitals are good no tachycardia blood pressure is normal. Not particularly pale. Her hemoglobin last night was 10.4 g percent. The abdomen is soft, has a midline scar well-healed. Has a ileostomy stoma on the right side. The bag was removed. The area was cleansed. There was one localized area of bleeding around the 12 to 1 o'clock position in the upper part of the ileostomy stoma. This was able to be controlled with silver nitrate. And pressure. After prolonged observation the bleeding seemed to have stopped. The area patient remained stable. The impression bleeding from ileostomy stoma site. Recommendation patient can be discharged. The recommend the gas coagulation as a temporizing measure until she can have the revision and relocation of ileostomy to the left side
== END 2016-11-03 13:31 | disposition home or self-care (01) ==
LOC: EC 11:03
DX: K91.840 Postprocedural hemorrhage of a digestive system organ or structure following a digestive system procedure (principal); M19.90 Unspecified osteoarthritis, unspecified site; Z91.041 Radiographic dye allergy status; Z91.048 Other nonmedicinal substance allergy status; Z88.6 Allergy status to analgesic agent; Z88.1 Allergy status to other antibiotic agents; Z79.52 Long term (current) use of systemic steroids; Z79.899 Other long term (current) drug therapy; Z79.82 Long term (current) use of aspirin; Z87.891 Personal history of nicotine dependence; Y83.8 Other surgical procedures as the cause of abnormal reaction of the patient, or of later complication, without mention of misadventure at the time of the procedure
CPT/HCPCS: 99284

== ENCOUNTER 2016-11-04 15:39 | Emergency (ER) | payer OTHER, MEDICARE ==
[2016-11-04] MEDS ORDERED: SODIUM CHLORIDE 0.9% 500 ML IV STA (18:01)
--- NOTE | 2016-11-04 18:22 | ED ---
General Adult HPI - General Source: patient, family, RN notes reviewed, old records reviewed Mode of arrival: wheelchair Limitations: no limitations <Fab Leyva - Last Filed: 11/04/16 18:23> <Khai Christie - Last Filed: 11/04/16 20:25> - General Chief complaint: Skin/Abscess/Foreign Body Stated complaint: Bleeding Time Seen by Provider: 11/04/16 17:23 - History of Present Illness Initial comments: Chief complaint history of present illness is a 60-year-old female with a history of Crohn's. Also hepatitis C. In the past she had a colostomy performed and has had on-again off-again bleeding from the ileostomy site. She does emergency room several times over the past several days. Her general surgeon used 7 nitrate sticks yesterday of control the bleeding. She states when she sits up or stands as well as intensive come through the colostomy. She is scheduled to have a laser cauterizing procedure in 3 days. (Fab Leyva) - Related Data Home Medications Medication Instructions Recorded Confirmed predniSONE 20 mg PO DAILY 11/07/13 11/04/16 Ferrous Sulfate [Iron (65 MG 325 mg PO Q48H 04/23/16 11/04/16 Elemental)] ALPRAZolam [Xanax] 0.25 mg PO DAILY PRN 07/06/16 11/04/16 Codeine Sulfate 120 mg PO TID PRN 07/06/16 11/04/16 Linagliptin [Tradjenta] 5 mg PO DAILY 07/11/16 11/04/16 Magnesium Oxide [Mag-Ox] 400 mg PO DAILY 10/19/16 11/04/16 Multivits-Min/Iron/FA/Lutein 1 tab PO DAILY 10/19/16 11/04/16 [Centrum Silver Women Tablet] Vitamin B Complex 1 cap PO DAILY 10/19/16 11/04/16 traMADol HCl [Ultram] 50 mg PO Q6H PRN 11/04/16 11/04/16 Previous Rx's Medication Instructions Recorded Aspirin EC [Ecotrin Low Dose] 81 mg PO BID #60 tablet. 10/24/16 Allergies Allergy/AdvReac Type Severity Reaction Status Date / Time adhesive tape Allergy Severe Rash/Hives/Skin Verified 11/04/16 17:21 Peeling Quinolones Allergy Severe Anaphylaxis Verified 11/04/16 17:21 /Swelling acetaminophen [From Tylenol] AdvReac Severe Liver Verified 11/04/16 17:21 Damage Iodinated Contrast Media - AdvReac Severe Chest Pain Verified 11/04/16 17:21 Oral and [Iodinated Contrast Media - IV Dye] NSAIDS (Non-Steroidal AdvReac Severe GI Verified 11/04/16 17:21 Anti-Inflamma Bleeding/Liver Damage Review of Systems ROS Other: All systems not noted in ROS Statement are negative. <Fab Leyva - Last Filed: 11/04/16 18:23> ROS Other: All systems not noted in ROS Statement are negative. <Khai Christie - Last Filed: 11/04/16 20:25> ROS Statement: Those systems with pertinent positive or pertinent negative responses have been documented in the HPI. Review of systems no headaches does feel slightly dizzy she has lost some blood over the past several days. And IV will be started CBC comp will be requested. And hydration as needed. Otherwise patient's denying headache or chest pain or shortness of breath GI problems as noted above no problems. No neuro deficits. All systems are reviewed. Past medical problems significant for diabetes mellitus, reflux, hepatitis C from a transfusion which is been cured with medication. Osteoarthritis, Crohn' s disease. Surgeries appendectomy bowel resection, cholecystectomy, hernia repair, hysterectomy and tubal ligation and ileostomy 7 years ago. (Fab Leyva) Past Medical History Past Medical History: Diabetes Mellitus, GERD/Reflux, Liver Disease, Osteoarthritis (OA) Additional Past Medical History / Comment(s): crohns, hx. hep c-currently in remission, hx. sepsis & ards 2007, has ileostomy, hx. kidney stones, hx. of infection in hip-was on antibiotics, has spacer in, hx. anemia related to intermittent bleeding from stoma, has past hx. elevated heart rate, states is related to when she is anemic, History of Any Multi-Drug Resistant Organisms: MRSA Date of last positivie culture/infection: 04/25/16 MDRO Source:: Blood & Right Hip Past Surgical History: Appendectomy, Bowel Resection, Cholecystectomy, Hernia Repair, Hysterectomy, Tubal Ligation Additional Past Surgical History / Comment(s): ileostomy 2009 WITH 3-4 RE- SUTURING EPISODES RELATED TO BLEEDING, ileoscopy w/argon gas coagulation of stoma, hip Past Anesthesia/Blood Transfusion Reactions: No Reported Reaction Past Psychological History: Anxiety Smoking Status: Former smoker Past Alcohol Use History: None Reported Additional Past Alcohol Use History / Comment(s): quit smoking 2008, 1ppd for 30 yrs. Past Drug Use History: None Reported - Past Family History Mother Additional Family Medical History / Comment(s): Mother at age 88 from CVA. Sister(s) Additional Family Medical History / Comment(s): Patient has 3 sisters with no major medical problems. Patient does not have any brothers. Patient has 2 sons with no major medical problems. Father Family Medical History: Cancer Additional Family Medical History / Comment(s): MOTHER- DIABETES <Fab Leyva - Last Filed: 11/04/16 18:23> General Exam Limitations: no limitations <Fab Leyva - Last Filed: 11/04/16 18:23> <Khai Christie - Last Filed: 11/04/16 20:25> - General Exam Comments Initial Comments: General: The patient is awake and alert, here because of recurrent bleeding from the ileostomy site. Vital signs temperature 98.7 pulse 13 respiratory rate 20 pressure 122/70. Pulse ox on percent room air. Eye: Pupils are equal, extra-ocular movements are intact; there is normal conjunctiva bilaterally. No signs of icterus. Ears, nose, mouth and throat: There are moist mucous membranes . Neck: The neck is supple, Cardiovascular: No complaint of chest pain or palpitations. Respiratory: No complaint of shortness of breath or wheezing. Gastrointestinal: Patient has had on-again off-again bleeding from the ileostomy stoma. Sometimes controlled with silver nitrate. No evidence of pain with palpation of the abdominal wall. Back: No complaint of back pain Musculoskeletal: No neuro deficits. (Fab Leyva) Procedures <Fab Leyva - Last Filed: 11/04/16 18:23> <Khai Christie - Last Filed: 11/04/16 20:25> - Procedures Initial comment: procedure; Silver nitrate cautery was used to cauterize the raw areas could be directly observed after removal of the colostomy bag. clear fluid was coming out when last observed. The patient will receive IV fluids and had a CBC, done for evaluation of anemia secondary to recurrent bleeding from the ileostomy over the past several days. Dr. Leyva (Fab Leyva) Medical Decision Making <Fab Leyva - Last Filed: 11/04/16 18:23> - Lab Data Result diagrams: 11/04/16 18:15 11/04/16 18:15 <Khai Christie - Last Filed: 11/04/16 20:25> - Medical Decision Making Patient reevaluated by myself, Dr. Christie. Patient resting comfortably in bed. No bleeding at this time. Patient was earlier cauterized by Dr. Leyva. Case was discussed in detail with Dr. Barakat including hemoglobin who does recommend discharge and does have a plan for follow-up. Patient was able to get up and walk around without any bleeding. Patient is comfortable with discharge home. Patient was updated on results. (Khai Christie) - Lab Data Lab Results 11/04/16 11/04/16 Range/Units 18:15 18:15 WBC 13.6 H (3.8-10.6) k/uL RBC 2.86 L (3.80-5.40) m/uL Hgb 8.9 L (11.4-16.0) gm/dL Hct 27.9 L (34.0-46.0) % MCV 97.5 (80.0-100.0) fL MCH 31.3 (25.0-35.0) pg MCHC 32.1 (31.0-37.0) g/dL RDW 16.6 H (11.5-15.5) % Plt Count 265 (150-450) k/uL Neutrophils % 80 % Lymphocytes % 14 % Monocytes % 4 % Eosinophils % 0 % Basophils % 0 % Neutrophils # 10.8 H (1.3-7.7) k/uL Lymphocytes # 1.9 (1.0-4.8) k/uL Monocytes # 0.6 (0-1.0) k/uL Eosinophils # 0.0 (0-0.7) k/uL Basophils # 0.0 (0-0.2) k/uL Hypochromasia Slight Poikilocytosis Slight Anisocytosis Slight Macrocytosis Slight Sodium 134 L (137-145) mmol/L Potassium 4.3 (3.5-5.1) mmol/L Chloride 94 L (98-107) mmol/L Carbon Dioxide 31 H (22-30) mmol/L Anion Gap 9 mmol/L BUN 24 H (7-17) mg/dL Creatinine 1.31 H (0.52-1.04) mg/dL Est GFR (MDRD) Af Amer 51 (>60 ml/min/1.73 sqM) Est GFR (MDRD) Non-Af 42 (>60 ml/min/1.73 sqM) Glucose 96 (74-99) mg/dL Calcium 9.3 (8.4-10.2) mg/dL Total Bilirubin 1.0 (0.2-1.3) mg/dL AST 46 H (14-36) U/L ALT 43 (9-52) U/L Alkaline Phosphatase 135 H (38-126) U/L Total Protein 6.6 (6.3-8.2) g/dL Albumin 3.8 (3.5-5.0) g/dL Disposition <Fab Leyva - Last Filed: 11/04/16 18:23> <Khai Christie - Last Filed: 11/04/16 20:25> Clinical Impression: GI bleed Disposition: HOME SELF-CARE Condition: Stable Instructions: Postoperative Bleeding (ED), Gastrointestinal Bleeding (ED) Additional Instructions: Please follow-up with Dr. Barakat this week as planned. Return for increased bleeding, lightheadedness or weakness or shortness of breath, worsening symptoms or other concerns. Referrals: Fab Recinos DO [Primary Care Provider] - 1-2 days Anuel Barakat MD [STAFF PHYSICIAN] - 1-2 days
[2016-11-04] MEDS ORDERED: SODIUM CHLORIDE 0.9% 500 ML IV ONE (18:23)
[2016-11-04 18:25] LABS: Anisocytosis Slight; Basophils % (A) 0 %; CH 31.8; CHCM 32.8; Eosinophils % (A) 0 %; HCT 27.9 % (34.0-46.0); HDW 3.45; HGB 8.9 gm/dL (11.4-16.0); Hypochromasia Slight; Luc % (Auto) 2; Lymphocytes # (A) 1.9 k/uL (1.0-4.8); Lymphocytes % (A) 14 %; MCH 31.3 pg (25.0-35.0); MCHC 32.1 g/dL (31.0-37.0); MCV 97.5 fL (80.0-100.0); Macrocytosis Slight; Mean Platelet Volume 7.5; Monocytes # (A) 0.6 k/uL (0-1.0); Monocytes % (A) 4 %; Neutrophils # (A) 10.8 k/uL (1.3-7.7); Neutrophils % (A) 80 %; Poikilocytosis Slight; RBC 2.86 m/uL (3.80-5.40); RDW 16.6 % (11.5-15.5); WBC 13.6 k/uL (3.8-10.6); WBC (Perox) 13.45
[2016-11-04 18:33] LABS: Calcium 9.3 mg/dL (8.4-10.2); Potassium 4.3 mmol/L (3.5-5.1); Total Protein 6.6 g/dL (6.3-8.2)
[2016-11-04 19:32] VITALS: TEMP 98.2
[2016-11-04 20:35] VITALS: BP 148/68; PULSE 98; RESP 16
== END 2016-11-04 20:35 | disposition home or self-care (01) ==
LOC: EC 15:39
DX: K92.2 Gastrointestinal hemorrhage, unspecified (principal); E11.9 Type 2 diabetes mellitus without complications; D64.9 Anemia, unspecified; Z87.891 Personal history of nicotine dependence; Z79.52 Long term (current) use of systemic steroids; Z79.84 Long term (current) use of oral hypoglycemic drugs; Z79.899 Other long term (current) drug therapy; Z91.041 Radiographic dye allergy status; Z88.6 Allergy status to analgesic agent; Z88.1 Allergy status to other antibiotic agents; Z88.8 Allergy status to other drugs, medicaments and biological substances; Z91.048 Other nonmedicinal substance allergy status
CPT/HCPCS: 36415; 80053; 85025; 96360; 96361; 99284

== ENCOUNTER 2016-11-05 14:41 | Inpatient (IN) | payer OTHER, MEDICARE ==
--- NOTE | 2016-11-05 15:52 | ED ---
General Adult HPI - General Chief complaint: GI Bleed Stated complaint: revisit bleeding ostomy Time Seen by Provider: 11/05/16 15:25 Source: patient, RN notes reviewed Mode of arrival: wheelchair - History of Present Illness Initial comments: This is a 60-year-old female who has a history of Crohn's disease. Patient states she's had a ileostomy for years. Patient states lately she has been bleeding from the ileostomy site. Patient states she's had it cauterized by her surgeon a couple of times and yesterday in the emergency department by Dr. Leyva. Patient states every time she moves and sits up and starts to bleed again. Patient is worried that it will continue to bleed throughout the night and she is supposed to come back to the hospital tomorrow so she can get it fixed by Dr. Barakat. Patient denies any pain. Patient denies being lightheaded or or dizzy. Patient denies any shortness of breath difficulty breathing or palpitations. - Related Data Home Medications Medication Instructions Recorded Confirmed predniSONE 20 mg PO DAILY 11/07/13 11/05/16 Ferrous Sulfate [Iron (65 MG 325 mg PO Q48H 04/23/16 11/05/16 Elemental)] ALPRAZolam [Xanax] 0.25 mg PO DAILY PRN 07/06/16 11/05/16 Codeine Sulfate 120 mg PO TID PRN 07/06/16 11/05/16 Linagliptin [Tradjenta] 5 mg PO DAILY 07/11/16 11/05/16 Magnesium Oxide [Mag-Ox] 400 mg PO DAILY 10/19/16 11/05/16 Multivits-Min/Iron/FA/Lutein 1 tab PO DAILY 10/19/16 11/05/16 [Centrum Silver Women Tablet] Vitamin B Complex 1 cap PO DAILY 10/19/16 11/05/16 traMADol HCl [Ultram] 50 mg PO Q6H PRN 11/04/16 11/05/16 Previous Rx's Medication Instructions Recorded Aspirin EC [Ecotrin Low Dose] 81 mg PO BID #60 tablet. 10/24/16 Allergies Allergy/AdvReac Type Severity Reaction Status Date / Time adhesive tape Allergy Severe Rash/Hives/Skin Verified 11/05/16 15:48 Peeling Quinolones Allergy Severe Anaphylaxis Verified 11/05/16 15:48 /Swelling acetaminophen [From Tylenol] AdvReac Severe Liver Verified 11/05/16 15:48 Damage Iodinated Contrast Media - AdvReac Severe Chest Pain Verified 11/05/16 15:48 Oral and [Iodinated Contrast Media - IV Dye] NSAIDS (Non-Steroidal AdvReac Severe GI Verified 11/05/16 15:48 Anti-Inflamma Bleeding/Liver Damage Review of Systems ROS Statement: Those systems with pertinent positive or pertinent negative responses have been documented in the HPI. ROS Other: All systems not noted in ROS Statement are negative. Past Medical History Past Medical History: Diabetes Mellitus, GERD/Reflux, Liver Disease, Osteoarthritis (OA) Additional Past Medical History / Comment(s): crohns, hx. hep c-currently in remission, hx. sepsis & ards 2007, has ileostomy, hx. kidney stones, hx. of infection in hip-was on antibiotics, has spacer in, hx. anemia related to intermittent bleeding from stoma, has past hx. elevated heart rate, states is related to when she is anemic, History of Any Multi-Drug Resistant Organisms: MRSA Date of last positivie culture/infection: 04/25/16 MDRO Source:: Blood & Right Hip Past Surgical History: Appendectomy, Bowel Resection, Cholecystectomy, Hernia Repair, Hysterectomy, Tubal Ligation Additional Past Surgical History / Comment(s): ileostomy 2009 WITH 3-4 RE- SUTURING EPISODES RELATED TO BLEEDING, ileoscopy w/argon gas coagulation of stoma, hip Past Anesthesia/Blood Transfusion Reactions: No Reported Reaction Past Psychological History: Anxiety Smoking Status: Former smoker Past Alcohol Use History: None Reported Additional Past Alcohol Use History / Comment(s): quit smoking 2007, 1ppd for 30 yrs. Past Drug Use History: None Reported - Past Family History Mother Additional Family Medical History / Comment(s): Mother at age 88 from CVA. Sister(s) Additional Family Medical History / Comment(s): Patient has 3 sisters with no major medical problems. Patient does not have any brothers. Patient has 2 sons with no major medical problems. Father Family Medical History: Cancer Additional Family Medical History / Comment(s): MOTHER- DIABETES General Exam - General Exam Comments Initial Comments: GENERAL: Patient is well-developed and well-nourished. Patient is nontoxic and well- hydrated and is in no acute distress. ENT: Neck is soft and supple. No significant lymphadenopathy is noted. Oropharynx is clear. Moist mucous membranes. Neck has full range of motion without eliciting any pain. EYES: The sclera were anicteric and conjunctiva were pink and moist. Extraocular movements were intact and pupils were equal round and reactive to light. Eyelids were unremarkable. PULMONARY: Unlabored respirations. Good breath sounds bilaterally. No audible rales rhonchi or wheezing was noted. CARDIOVASCULAR: There is a regular rate and rhythm without any murmurs gallops or rubs. ABDOMEN: Soft and nontender with normal bowel sounds. Ileostomy bag has obvious blood and it. I cannot see the site of bleeding at this time. SKIN: Skin is clear with no lesions or rashes and otherwise unremarkable. NEUROLOGIC: Patient is alert and oriented x3. Cranial nerves II through XII are grossly intact. Motor and sensory are also intact. Normal speech, volume and content. Symmetrical smile. MUSCULOSKELETAL: Normal extremities with adequate strength and full range of motion. LYMPHATICS: No significant lymphadenopathy is noted PSYCHIATRIC: Patient is mildly anxious Course Vital Signs 11/05/16 15:22 Temperature 100.1 F H Pulse Rate 104 H Respiratory 18 Rate Blood Pressure 131/61 O2 Sat by Pulse 100 Oximetry Medical Decision Making - Medical Decision Making I spoke with Dr. Yuval Barakat wanted the patient admitted to him and he. Disposition Clinical Impression: Hemorrhage from ileostomy Disposition: ADMITTED IP TO THIS [facility] Time of Disposition: 16:16
[2016-11-05 16:17] LABS: Anisocytosis Slight; Basophils % (A) 0 %; CH 31.7; CHCM 32.1; Eosinophils % (A) 0 %; HCT 24.2 % (34.0-46.0); HDW 3.39; HGB 7.7 gm/dL (11.4-16.0); Hypochromasia Slight; Luc # (Auto) 0.16; Luc % (Auto) 2; Lymphocytes # (A) 1.4 k/uL (1.0-4.8); Lymphocytes % (A) 16 %; MCH 31.5 pg (25.0-35.0); MCHC 31.7 g/dL (31.0-37.0); MCV 99.6 fL (80.0-100.0); Macrocytosis Slight; Mean Platelet Volume 6.8; Monocytes # (A) 0.4 k/uL (0-1.0); Monocytes % (A) 4 %; Neutrophils # (A) 7.3 k/uL (1.3-7.7); Neutrophils % (A) 78 %; RBC 2.43 m/uL (3.80-5.40); RDW 17.2 % (11.5-15.5); WBC 9.3 k/uL (3.8-10.6); WBC (Perox) 9.73
[2016-11-05] MEDS ORDERED: SODIUM CHLORIDE 0.9% 1,000 ML IV ONE (16:17)
[2016-11-05 16:34] LABS: Calcium 8.6 mg/dL (8.4-10.2); Potassium 4.7 mmol/L (3.5-5.1); Total Bilirubin 0.8 mg/dL (0.2-1.3); Total Protein 5.8 g/dL (6.3-8.2)
[2016-11-05 16:37] LABS: INR 1.1 (<1.1); Partial Thromboplastin Time 20.3 sec (22.0-30.0); Prothrombin Time 10.7 sec (9.0-12.0)
[2016-11-05] MEDS ORDERED: ALPRAZolam 0.25 MG TAB PO PRN (18:01)
[2016-11-05] MEDS ORDERED: traMADol 50 MG TAB PO PRN (18:01)
[2016-11-05 20:51] LABS: Glucose,Whole Blood 94 mg/dL (75-99)
[2016-11-05] MEDS: ALPRAZolam 0.5 MG TAB PO PRN (23:05)
[2016-11-05] MEDS: CODEINE 30 MG TAB PO PRN (23:27)
[2016-11-05 23:33] LABS: Anisocytosis Slight; Basophils % (A) 0 %; CH 32.4; Eosinophils # (A) 0.1 k/uL (0-0.7); Eosinophils % (A) 1 %; HCT 20.3 % (34.0-46.0); HDW 3.59; Hypochromasia Slight; Luc # (Auto) 0.19; Luc % (Auto) 2; Lymphocytes % (A) 27 %; MCH 32.5 pg (25.0-35.0); MCHC 32.8 g/dL (31.0-37.0); MCV 99.1 fL (80.0-100.0); Macrocytosis Slight; Mean Platelet Volume 7.1; Monocytes # (A) 0.7 k/uL (0-1.0); Monocytes % (A) 7 %; Neutrophils # (A) 6.9 k/uL (1.3-7.7); Neutrophils % (A) 63 %; Poikilocytosis Slight; RBC 2.04 m/uL (3.80-5.40); RDW 18.3 % (11.5-15.5); WBC 10.9 k/uL (3.8-10.6); WBC (Perox) 10.71
[2016-11-05 23:36] LABS: HGB 6.6 gm/dL (11.4-16.0)
[2016-11-06] MEDS ORDERED: traMADol 50 MG TAB ONE (05:15)
[2016-11-06] MEDS: MAGNESIUM OXIDE 400 MG TAB PO SCH (07:54)
[2016-11-06] MEDS: predniSONE 20 MG TAB PO SCH (07:54)
[2016-11-06] MEDS: LINAGLIPTIN 5 MG TABLET PO SCH (07:54)
[2016-11-06 08:10] LABS: Glucose,Whole Blood 83 mg/dL (75-99)
--- NOTE | 2016-11-06 09:03 | P.GSHP ---
History of Present Illness H&P Date: 11/06/16 Chief Complaint: Bleeding from ileostomy The patient is a 60-year-old white female who had a total colectomy with ileostomy more than 10-15 years ago. Recently has had the bleeding from the ileostomy. A year ago she had Ambrosio coagulation and had no bleeding from many many months until recently. She was put on aspirin following hip surgery. She's had intermittent bleeding almost on a daily basis. She had it coagulated with silver nitrate the several times but she would re bleed within 24 hours bleed with 24 hours.. She presented to the emergency room last night again with the bleeding. She was admitted for further management. She was scheduled to have argon gas coagulation of the stoma today. The long-term plan is to revise the stoma with the location to the left side. All other workup showed no other source for bleeding especially in the upper GI tract. She has a fair amount of granulation tissue at the stoma site . Hemoglobin hemoglobin dropped about 2 g in the last month or so. Past history. Total colectomy with ileostomy for intractable Crohn's of colitis. Appendectomy ventral incisional hernia repair hysterectomy with tubal ligation prior to that. Hip replacement surgery complicated by infection and MRSA now has a space in. Has had multiple and endoscopic procedures. Also has a history of good hepatitis C osteoarthritis kidney stones liver disease. Medications include that time at all codeine prednisone 5 mg a day for sulfate Xanax, Tradjenta, aspirin magnesium oxide multivitamins. Social history quit smoking in 2007. Has a 30 year history of smoking 1 pack per day. Denies alcohol. She is . Family history noncontributory. System review as above no dizziness. No cough hemoptysis. Denies joint pains. No chest pain. On exam examination. The patient is awake alert in no acute distress. Slightly pale. Weighs about the 63-1/2 kg. Head and neck otherwise normal heart regular rhythm lungs are clear abdomen reveals a ileostomy stoma in the right the side of the abdomen with some blood in the bag. Fair amount of granulation tissue on the surface midline incision well-healed. No mass or organomegaly or tenderness. Extremities normal with full motion. Has the some stiffness from the right hip. [employer] grossly intact. Laboratory studies are noted. Impression hemorrhage from ileostomy stoma site. History of Crohn's colitis status post total colectomy with ileostomy. History of osteoarthritis. Reflux disease. History of anxiety disorder. History of hepatitis C. Liver disease. Plan. Patient will be admitted and scheduled for argon gas coagulation of the stoma as a temporizing measure. Past Medical History Past Medical History: Diabetes Mellitus, GERD/Reflux, Liver Disease, Osteoarthritis (OA) Additional Past Medical History / Comment(s): crohns, hx. hep c-currently in remission, hx. sepsis & ards 2007, has ileostomy, hx. kidney stones, hx. of infection in hip-was on antibiotics, has spacer in, hx. anemia related to intermittent bleeding from stoma, has past hx. elevated heart rate, states is related to when she is anemic,pressure sore not open (to lt great toe) sees dr villafuerte, [place] History of Any Multi-Drug Resistant Organisms: MRSA Date of last positivie culture/infection: 04/25/16 MDRO Source:: Blood & Right Hip Past Surgical History: Appendectomy, Bowel Resection, Cholecystectomy, Hernia Repair, Hysterectomy, Tubal Ligation Additional Past Surgical History / Comment(s): ileostomy 2009 WITH 3-4 RE- SUTURING EPISODES RELATED TO BLEEDING, ileoscopy w/argon gas coagulation of stoma, 10-22-16 revison rt toal hip arthroplasty Past Anesthesia/Blood Transfusion Reactions: No Reported Reaction Past Psychological History: Anxiety Additional Psychological History / Comment(s): pt lives with her spouse and 1 pet dog. lives in a single level home that has 3 steps in which to enter. had knee sx 10-22-16- was to start o/p pt on . Smoking Status: Former smoker Past Alcohol Use History: None Reported Additional Past Alcohol Use History / Comment(s): started 1977,quit smoking 2007 , 1ppd Past Drug Use History: None Reported - Past Family History Mother Additional Family Medical History / Comment(s): Mother at age 88 from CVA. Sister(s) Additional Family Medical History / Comment(s): Patient has 3 sisters with no major medical problems. Patient does not have any brothers. Patient has 2 sons with no major medical problems. Father Family Medical History: Cancer Additional Family Medical History / Comment(s): MOTHER- DIABETES Medications and Allergies Home Medications Medication Instructions Recorded Confirmed Type predniSONE 20 mg PO DAILY 11/07/13 11/05/16 History Ferrous Sulfate [Iron (65 MG 325 mg PO DAILY 04/23/16 11/05/16 History Elemental)] ALPRAZolam [Xanax] 0.25 mg PO DAILY PRN 07/06/16 11/05/16 History Codeine Sulfate 120 mg PO TID PRN 07/06/16 11/05/16 History Linagliptin [Tradjenta] 5 mg PO DAILY 07/11/16 11/05/16 History Magnesium Oxide [Mag-Ox] 400 mg PO DAILY 10/19/16 11/05/16 History Multivits-Min/Iron/FA/Lutein 1 tab PO DAILY 10/19/16 11/05/16 History [Centrum Silver Women Tablet] Vitamin B Complex 1 cap PO DAILY 10/19/16 11/05/16 History traMADol HCl [Ultram] 50 mg PO Q6H PRN 11/04/16 11/05/16 History Allergies Allergy/AdvReac Type Severity Reaction Status Date / Time adhesive tape Allergy Severe Rash/Hives/Skin Verified 11/05/16 16:35 Peeling Quinolones Allergy Severe Anaphylaxis Verified 11/05/16 16:35 /Swelling acetaminophen [From Tylenol] AdvReac Severe Liver Verified 11/05/16 16:35 Damage Iodinated Contrast Media - AdvReac Severe Chest Pain Verified 11/05/16 16:35 Oral and [Iodinated Contrast Media - IV Dye] NSAIDS (Non-Steroidal AdvReac Severe GI Verified 11/05/16 16:35 Anti-Inflamma Bleeding/Liver Damage Surgical - Exam Vital Signs Temp Pulse Resp BP Pulse Ox 100.1 F H 104 H 18 131/61 100 11/05/16 15:22 11/05/16 15:22 11/05/16 15:22 11/05/16 15:22 11/05/16 15:22 Results - Labs 11/05/16 23:16 11/05/16 15:55 Abnormal Lab Results - Last 24 Hours (Table) 11/05/16 11/05/16 11/05/16 Range/Units 15:55 15:55 15:55 WBC (3.8-10.6) k/uL RBC 2.43 L (3.80-5.40) m/uL Hgb 7.7 L (11.4-16.0) gm/dL Hct 24.2 L (34.0-46.0) % RDW 17.2 H (11.5-15.5) % APTT 20.3 L (22.0-30.0) sec Sodium 133 L (137-145) mmol/L BUN 23 H (7-17) mg/dL Creatinine 1.20 H (0.52-1.04) mg/dL Glucose 114 H (74-99) mg/dL AST 49 H (14-36) U/L Total Protein 5.8 L (6.3-8.2) g/dL Albumin 3.2 L (3.5-5.0) g/dL Crossmatch 11/05/16 11/05/16 Range/Units 15:55 23:16 WBC 10.9 H (3.8-10.6) k/uL RBC 2.04 L (3.80-5.40) m/uL Hgb 6.6 L* (11.4-16.0) gm/dL Hct 20.3 L (34.0-46.0) % RDW 18.3 H (11.5-15.5) % APTT (22.0-30.0) sec Sodium (137-145) mmol/L BUN (7-17) mg/dL Creatinine (0.52-1.04) mg/dL Glucose (74-99) mg/dL AST (14-36) U/L Total Protein (6.3-8.2) g/dL Albumin (3.5-5.0) g/dL Crossmatch See Detail Diabetes panel 11/05/16 Range/Units 15:55 Sodium 133 L (137-145) mmol/L Potassium 4.7 (3.5-5.1) mmol/L Chloride 98 (98-107) mmol/L Carbon Dioxide 28 (22-30) mmol/L BUN 23 H (7-17) mg/dL Creatinine 1.20 H (0.52-1.04) mg/dL Glucose 114 H (74-99) mg/dL Calcium 8.6 (8.4-10.2) mg/dL AST 49 H (14-36) U/L ALT 40 (9-52) U/L Alkaline Phosphatase 119 (38-126) U/L Total Protein 5.8 L (6.3-8.2) g/dL Albumin 3.2 L (3.5-5.0) g/dL Calcium panel 11/05/16 Range/Units 15:55 Calcium 8.6 (8.4-10.2) mg/dL Albumin 3.2 L (3.5-5.0) g/dL Pituitary panel 11/05/16 Range/Units 15:55 Sodium 133 L (137-145) mmol/L Potassium 4.7 (3.5-5.1) mmol/L Chloride 98 (98-107) mmol/L Carbon Dioxide 28 (22-30) mmol/L BUN 23 H (7-17) mg/dL Creatinine 1.20 H (0.52-1.04) mg/dL Glucose 114 H (74-99) mg/dL Calcium 8.6 (8.4-10.2) mg/dL Adrenal panel 11/05/16 Range/Units 15:55 Sodium 133 L (137-145) mmol/L Potassium 4.7 (3.5-5.1) mmol/L Chloride 98 (98-107) mmol/L Carbon Dioxide 28 (22-30) mmol/L BUN 23 H (7-17) mg/dL Creatinine 1.20 H (0.52-1.04) mg/dL Glucose 114 H (74-99) mg/dL Calcium 8.6 (8.4-10.2) mg/dL Total Bilirubin 0.8 (0.2-1.3) mg/dL AST 49 H (14-36) U/L ALT 40 (9-52) U/L Alkaline Phosphatase 119 (38-126) U/L Total Protein 5.8 L (6.3-8.2) g/dL Albumin 3.2 L (3.5-5.0) g/dL
[2016-11-06] MEDS ORDERED: PROPOFOL 10 MG/ML 20 ML VIAL IV ONE (09:39)
[2016-11-06] MEDS ORDERED: SODIUM CHLORIDE 0.9% 1,000 ML IV ONE (09:39)
--- NOTE | 2016-11-06 09:56 | P.OP ---
Date of Procedure: 11/06/16 Preoperative Diagnosis: Bleeding from ileostomy stoma. Postoperative Diagnosis: Bleeding from ileostomy stoma secondary to excessive granulation tissue with underlying Crohn's Procedure(s) Performed: Ileoscopy with the argon gas coagulation of the ileostomy stoma. Implants: Anesthesia: MAC Surgeon: Anuel Barakat Estimated Blood Loss (ml): 2 Pathology: none sent Condition: stable Disposition: no change Indications for Procedure: Recurrent episodes of bleeding from ileostomy stoma Operative Findings: Excessive granulation tissue friable at the ileostomy stoma. Description of Procedure: With the patient supine the stoma appliance was removed. There was no active bleeding at this time. When previously cauterized with silver nitrate in the emergency room most of the bleeding appeared to be occurring from around the superior aspect around the 1 o'clock position. The video colonoscope was inserted through the stoma advance into the terminal ileum for a distance of about the meatus. The mucosa were thoroughly examined. There was a again a fair amount of friable granulation tissue at the stoma site close to be of junction with the skin and extending for a distance about a centimeter to a centimeter and a half into the mucosa. This was THOROUGHLY coagulated with the argon gas. The automotive services manager with good hemostasis. The scope was removed the patient tolerated procedure well without any evident complication.
[2016-11-06] MEDS: B COMPLEX-VIT C-VIT E-ZINC 1 EACH TAB PO SCH (11:16)
[2016-11-06] MEDS: FERROUS SULFATE 325 MG TAB PO SCH (11:16)
[2016-11-06] MEDS: MULTIVITAMINS, THERA 1 EACH TAB PO SCH (11:16)
[2016-11-06 12:03] LABS: Anisocytosis Slight; CH 31.6; CHCM 32.1; HDW 3.64; HGB 7.8 gm/dL (11.4-16.0); Hypochromasia Moderate; MCH 30.9 pg (25.0-35.0); MCV 99.6 fL (80.0-100.0); Macrocytosis Moderate; Mean Platelet Volume 6.9; Poikilocytosis Slight; RBC 2.51 m/uL (3.80-5.40); RDW 18.6 % (11.5-15.5); WBC 6.5 k/uL (3.8-10.6)
[2016-11-06 12:08] LABS: Calcium 7.8 mg/dL (8.4-10.2); Potassium 3.7 mmol/L (3.5-5.1); Total Bilirubin 1.3 mg/dL (0.2-1.3); Total Protein 4.9 g/dL (6.3-8.2)
[2016-11-06 12:23] LABS: Glucose,Whole Blood 77 mg/dL (75-99)
[2016-11-06 13:26] VITALS: BMI 22.6
--- NOTE | 2016-11-06 14:22 | P.CONS ---
History of Present Illness - Reason for Consult Consult date: 11/06/16 - History of Present Illness This is a 60-year-old female. Her primary care physician Dr. Recinos. She has a past medical history of Crohn's status post bowel resection followed by ileostomy, hepatitis C treated with Sergio and in remission followed by Dr. Colon, diabetes mellitus type 2, gastroesophageal reflux disease, hypertension, history of sepsis due to urinary tract infection and kidney stone and ARDS in 2007, bleeding from stoma, anxiety, septic joint and avascular necrosis of the right hip and MRSA bacteremia treated in April 2016 under the care of Dr. Thayer. She was hospitalized in June 2016 which time she was treated for acute GI bleed from her stoma status post laser treatment by Dr. Barakat with transfusion of packed RBCs. Repeat blood cultures at that time were negative. She was stabilized and discharged home. Patient states she had one other episode of small amount of bleeding from her stoma since that time but did not require admission. Her platelet count is in the 70s and patient states that in 2007 she did have platelet transfusion when she was septic. She has seen Dr. Roth on 2 occasions and did not need follow-up. She is status post revision of the right total hip arthroplasty. Patient was discharged on aspirin baby strength twice daily but did have subsequent bleeding with this. Patient does have follow-up appointment with Dr. Pena tomorrow. She has now been admitted under the care of Dr. Barakat for argon gas coagulation of the stoma. She was cauterized last evening by Dr. Leyva in the emergency center. She required transfusion of one unit of packed RBCs last evening. She denies any symptoms with her anemia. Her repeat hemoglobin is 7.8. There's been no problems with the functionality of her ileostomy. Review of Systems All systems: negative Constitutional: Denies chills, Denies fever Eyes: denies blurred vision, denies pain Ears, nose, mouth and throat: Denies headache, Denies sore throat Cardiovascular: Denies chest pain, Denies shortness of breath Respiratory: Denies cough Gastrointestinal: Denies abdominal pain, Denies diarrhea, Denies nausea, Denies vomiting Genitourinary: Denies dysuria, Denies hematuria Musculoskeletal: Denies myalgias Integumentary: Denies pruritus, Denies rash Neurological: Denies numbness, Denies weakness Psychiatric: Denies anxiety, Denies depression Endocrine: Denies fatigue, Denies weight change Past Medical History Past Medical History: Diabetes Mellitus, GERD/Reflux, Liver Disease, Osteoarthritis (OA) Additional Past Medical History / Comment(s): crohns, hx. hep c-currently in remission, hx. sepsis & ards 2007, has ileostomy, hx. kidney stones, hx. of infection in hip-was on antibiotics, has spacer in, hx. anemia related to intermittent bleeding from stoma, has past hx. elevated heart rate, states is related to when she is anemic,pressure sore not open (to lt great toe) sees dr villafuerte, [place] History of Any Multi-Drug Resistant Organisms: MRSA Year Discovered:: 04/25/16 MDRO Source:: Blood & Right Hip Past Surgical History: Appendectomy, Bowel Resection, Cholecystectomy, Hernia Repair, Hysterectomy, Tubal Ligation Additional Past Surgical History / Comment(s): ileostomy 2009 WITH 3-4 RE- SUTURING EPISODES RELATED TO BLEEDING, ileoscopy w/argon gas coagulation of stoma, 10-22-16 revison rt toal hip arthroplasty Past Anesthesia/Blood Transfusion Reactions: No Reported Reaction Past Psychological History: Anxiety Additional Psychological History / Comment(s): pt lives with her spouse and 1 pet dog. lives in a single level home that has 3 steps in which to enter. had knee sx 10-22-16- was to start o/p pt on . Smoking Status: Former smoker Past Alcohol Use History: None Reported Additional Past Alcohol Use History / Comment(s): started 1977,quit smoking 2007 , 1ppd Past Drug Use History: None Reported - Past Family History Mother Additional Family Medical History / Comment(s): Mother at age 88 from CVA. Sister(s) Additional Family Medical History / Comment(s): Patient has 3 sisters with no major medical problems. Patient does not have any brothers. Patient has 2 sons with no major medical problems. Father Family Medical History: Cancer Additional Family Medical History / Comment(s): MOTHER- DIABETES Medications and Allergies Home Medications Medication Instructions Recorded Confirmed Type predniSONE 20 mg PO DAILY 11/07/13 11/05/16 History Ferrous Sulfate [Iron (65 MG 325 mg PO DAILY 04/23/16 11/05/16 History Elemental)] ALPRAZolam [Xanax] 0.25 mg PO DAILY PRN 07/06/16 11/05/16 History Codeine Sulfate 120 mg PO TID PRN 07/06/16 11/05/16 History Linagliptin [Tradjenta] 5 mg PO DAILY 07/11/16 11/05/16 History Magnesium Oxide [Mag-Ox] 400 mg PO DAILY 10/19/16 11/05/16 History Multivits-Min/Iron/FA/Lutein 1 tab PO DAILY 10/19/16 11/05/16 History [Centrum Silver Women Tablet] Vitamin B Complex 1 cap PO DAILY 10/19/16 11/05/16 History traMADol HCl [Ultram] 50 mg PO Q6H PRN 11/04/16 11/05/16 History Allergies Allergy/AdvReac Type Severity Reaction Status Date / Time adhesive tape Allergy Severe Rash/Hives/Skin Verified 11/05/16 16:35 Peeling Quinolones Allergy Severe Anaphylaxis Verified 11/05/16 16:35 /Swelling acetaminophen [From Tylenol] AdvReac Severe Liver Verified 11/05/16 16:35 Damage Iodinated Contrast Media - AdvReac Severe Chest Pain Verified 11/05/16 16:35 Oral and [Iodinated Contrast Media - IV Dye] NSAIDS (Non-Steroidal AdvReac Severe GI Verified 11/05/16 16:35 Anti-Inflamma Bleeding/Liver Damage Physical Exam Vitals: Vital Signs Temp Pulse Pulse Resp BP BP Pulse Ox 11/06/16 11:00 74 14 112/59 98 11/06/16 10:45 84 14 138/73 98 11/06/16 10:30 62 14 126/59 98 11/06/16 10:15 65 14 122/68 100 11/06/16 10:00 68 14 122/83 100 11/06/16 07:00 98.0 F 77 16 136/64 96 11/06/16 04:10 97.9 F 81 18 141/85 92 L 11/06/16 02:22 98.3 F 89 18 127/58 98 11/06/16 01:52 97.9 F 91 20 119/59 97 11/06/16 01:42 96.9 F L 89 20 122/60 11/05/16 23:00 98.0 F 93 18 127/55 100 11/05/16 17:04 99.7 F H 102 H 18 134/85 100 11/05/16 15:22 100.1 F H 104 H 18 131/61 100 Intake and Output 11/05/16 11/06/16 11/06/16 22:59 06:59 14:59 Intake Total 450 310 50 Balance 450 310 50 Intake: IV 50 Oral 450 0 Blood Product 310 Rc As-1 Unit 310 [id number] Other: Voiding Method Bedpan # Voids 1 0 2 Weight 63.503 kg Gen: This is a 60-year-old female. She is sitting up in bed and appears to be in no acute distress while at rest. HEENT: Head is atraumatic, normocephalic. Pupils equal, round. Sclerae is anicteric. Oral mucous membranes are dry. No thrush noted. NECK: Supple. No JVD. No lymphadenopathy. No thyromegaly. LUNGS: Clear to auscultation. No wheezes or rhonchi. No intercostal retractions. HEART: Regular rate and rhythm. No murmur. ABDOMEN: Soft. Bowel sounds are present. No masses. No tenderness. Right- sided ileostomy with no active bleeding. EXTREMITIES: No pedal edema. No calf tenderness. NEUROLOGICAL: Patient is awake, alert and oriented x3. Cranial nerves 2 through 12 are grossly intact. Results CBC & Chem 7: 11/06/16 11:33 11/06/16 11:33 Labs: Abnormal Lab Results - Last 24 Hours (Table) 11/05/16 11/05/16 11/05/16 Range/Units 15:55 15:55 15:55 WBC (3.8-10.6) k/uL RBC 2.43 L (3.80-5.40) m/uL Hgb 7.7 L (11.4-16.0) gm/dL Hct 24.2 L (34.0-46.0) % RDW 17.2 H (11.5-15.5) % APTT 20.3 L (22.0-30.0) sec Sodium 133 L (137-145) mmol/L BUN 23 H (7-17) mg/dL Creatinine 1.20 H (0.52-1.04) mg/dL Glucose 114 H (74-99) mg/dL Calcium (8.4-10.2) mg/dL AST 49 H (14-36) U/L Total Protein 5.8 L (6.3-8.2) g/dL Albumin 3.2 L (3.5-5.0) g/dL Crossmatch 11/05/16 11/05/16 11/06/16 Range/Units 15:55 23:16 11:33 WBC 10.9 H (3.8-10.6) k/uL RBC 2.04 L 2.51 L (3.80-5.40) m/uL Hgb 6.6 L* 7.8 L (11.4-16.0) gm/dL Hct 20.3 L 25.0 L (34.0-46.0) % RDW 18.3 H 18.6 H (11.5-15.5) % APTT (22.0-30.0) sec Sodium (137-145) mmol/L BUN (7-17) mg/dL Creatinine (0.52-1.04) mg/dL Glucose (74-99) mg/dL Calcium (8.4-10.2) mg/dL AST (14-36) U/L Total Protein (6.3-8.2) g/dL Albumin (3.5-5.0) g/dL Crossmatch See Detail 11/06/16 Range/Units 11:33 WBC (3.8-10.6) k/uL RBC (3.80-5.40) m/uL Hgb (11.4-16.0) gm/dL Hct (34.0-46.0) % RDW (11.5-15.5) % APTT (22.0-30.0) sec Sodium 135 L (137-145) mmol/L BUN 21 H (7-17) mg/dL Creatinine 1.25 H (0.52-1.04) mg/dL Glucose 73 L (74-99) mg/dL Calcium 7.8 L (8.4-10.2) mg/dL AST 42 H (14-36) U/L Total Protein 4.9 L (6.3-8.2) g/dL Albumin 2.6 L (3.5-5.0) g/dL Crossmatch Assessment and Plan Plan: 1. Hemorrhage from ileostomy stoma site with plan for argon gas coagulation of the stoma. Patient has been admitted under the care of Dr. Barakat. Continue current pain management. Monitor hemoglobin closely. 2. Acute blood loss anemia status post transfusion of one unit of packed RBCs. Monitor hemoglobin closely 3. History of right hip septic joint and avascular necrosis with sepsis, septicemia and MRSA bacteremia in April 2016. Patient is status post revision of right total hip arthroplasty with Dr. Pena done on 10/22/2016. She has follow-up appointment with Dr. Pena tomorrow. 4.Diabetes mellitus type 2. Patient is on Tradjenta at home which will be continued along with Humalog scale. 5. History of hypertension, not currently on medication. 6. Crohn's disease status post bowel resection and ileostomy, stable. Patient is normally on prednisone 20 mg daily. 7. Generalized anxiety disorder. Continue Xanaxas needed. 8. History of hepatitis C status post Harvoni treatment followed by rianna Hicks. 9. Gastrointestinal prophylaxis. Continue Protonix 40 mg daily. 10. DVT prophylaxis. SCDs and CRISTHIAN ortiz. Discharge plan: Return home Impression and plan of care have been directed as dictated by the signing physician. Glenis Hernandez nurse practitioner acting as scribe for signing physician. Cc: Dr. Fab Recinos
[2016-11-06] MEDS: CODEINE 30 MG TAB PO PRN ×2 (14:58→23:09)
[2016-11-06] MEDS: INSULIN LISPRO (humaLOG) 300 UNIT/3 ML VIAL SQ SCH ×2 (17:41→21:34)
[2016-11-06 17:42] LABS: Glucose,Whole Blood 143 mg/dL (75-99)
[2016-11-06 21:11] LABS: Glucose,Whole Blood 123 mg/dL (75-99)
[2016-11-06 22:45] LABS: Hemoglobin A1C 4.6 % (4.2-6.1)
[2016-11-06] MEDS: ALPRAZolam 0.5 MG TAB PO PRN (23:09)
[2016-11-07 07:37] LABS: Glucose,Whole Blood 87 mg/dL (75-99)
[2016-11-07] MEDS: MAGNESIUM OXIDE 400 MG TAB PO SCH (07:48)
[2016-11-07] MEDS: LINAGLIPTIN 5 MG TABLET PO SCH ×2 (07:48→12:38)
[2016-11-07] MEDS: INSULIN LISPRO (humaLOG) 300 UNIT/3 ML VIAL SQ SCH ×4 (07:49→21:41)
[2016-11-07] MEDS: PANTOPRAZOLE 40 MG TABLET PO SCH (07:49)
[2016-11-07] MEDS: predniSONE 20 MG TAB PO SCH (07:49)
--- NOTE | 2016-11-07 08:24 | P.PN ---
Progress Note - Text Patient had the argon gas coagulation of the ileostomy stoma yesterday because of the bleeding from the area. Remains fairly stable. Does have a low-grade temp of 100.2. She feels tired. Had the small amount of blood the in her ostomy bag last night. On examination the patient's temperature is 99.8. Vitals are stable. Slightly pale. Abdomen is soft. The stoma this morning is free of any blood. Impression slowly resolving large GI bleed from the ileostomy stoma. Low-grade fever. Recommendation. Advance to soft diet continue monitor the stoma of bleeding and the temperature and hopefully she can be discharged by tomorrow.
[2016-11-07 09:50] LABS: Anisocytosis Slight; CH 31.6; CHCM 33.1; HCT 22.9 % (34.0-46.0); HDW 3.71; HGB 7.7 gm/dL (11.4-16.0); Hypochromasia Slight; MCH 32.5 pg (25.0-35.0); MCHC 33.7 g/dL (31.0-37.0); MCV 96.5 fL (80.0-100.0); Macrocytosis Slight; Poikilocytosis Slight; RBC 2.37 m/uL (3.80-5.40); RDW 18.3 % (11.5-15.5); WBC 6.6 k/uL (3.8-10.6)
[2016-11-07 10:16] LABS: Calcium 7.6 mg/dL (8.4-10.2); Potassium 3.9 mmol/L (3.5-5.1)
[2016-11-07 12:10] LABS: Glucose,Whole Blood 186 mg/dL (75-99)
[2016-11-07] MEDS: B COMPLEX-VIT C-VIT E-ZINC 1 EACH TAB PO SCH (12:38)
[2016-11-07] MEDS: MULTIVITAMINS, THERA 1 EACH TAB PO SCH (12:38)
[2016-11-07] MEDS: FERROUS SULFATE 325 MG TAB PO SCH (12:38)
--- NOTE | 2016-11-07 13:45 | XR ---
EXAMINATION TYPE: XR Hip RT and AP Pelvis DATE OF EXAM: 11/07/2016 12:28 PM COMPARISON: Pelvic and right hip x-ray April 23, 2016. Postoperative right hip x-ray October 22, 2016 HISTORY: Right hip surgery 2 weeks ago with right hip pain. TECHNIQUE: A single AP view of the pelvis is obtained. Two views of the right hip are obtained. FINDINGS: There is no acute fracture/dislocation evident in the pelvis. The sacroiliac joints appea r symmetric and unremarkable. Numerous scattered pelvic phleboliths redemonstrated. Right lower quadr ant ostomy noted. Two views of right hip show no acute fracture or dislocation. Metallic hardware right hip arthroplast y is redemonstrated. Ossific fragment involving greater trochanter just lateral to the metallic neck component is again seen. Some increasing heterotopic ossification at surgical site is noted since mila or. Interval resolution of subcutaneous gas noted. IMPRESSION: There is no acute fracture or dislocation in the pelvis or right hip. Some heterotopic o ssification noted in the interval since prior surgery lateral aspect.
[2016-11-07] MEDS: CODEINE 30 MG TAB PO PRN ×2 (15:15→22:24)
--- NOTE | 2016-11-07 15:45 | P.PN ---
Subjective This is a 60-year-old female. Her primary care physician Dr. Recinos. She has a past medical history of Crohn's status post bowel resection followed by ileostomy, hepatitis C treated with Sergio and in remission followed by Dr. Colon, diabetes mellitus type 2, gastroesophageal reflux disease, hypertension, history of sepsis due to urinary tract infection and kidney stone and ARDS in 2007, bleeding from stoma, anxiety, septic joint and avascular necrosis of the right hip and MRSA bacteremia treated in April 2016 under the care of Dr. Thayer. She was hospitalized in June 2016 which time she was treated for acute GI bleed from her stoma status post laser treatment by Dr. Barakat with transfusion of packed RBCs. Repeat blood cultures at that time were negative. She was stabilized and discharged home. Patient states she had one other episode of small amount of bleeding from her stoma since that time but did not require admission. Her platelet count is in the 70s and patient states that in 2007 she did have platelet transfusion when she was septic. She has seen Dr. Roth on 2 occasions and did not need follow-up. She is status post revision of the right total hip arthroplasty. Patient was discharged on aspirin baby strength twice daily but did have subsequent bleeding with this. Patient does have follow-up appointment with Dr. Pena tomorrow. She has now been admitted under the care of Dr. Barakat for argon gas coagulation of the stoma. She was cauterized last evening by Dr. Leyva in the emergency center. She required transfusion of one unit of packed RBCs last evening. She denies any symptoms with her anemia. Her repeat hemoglobin is 7.8. There's been no problems with the functionality of her ileostomy. 11/07: Patient is currently tolerating soft diet. She states that she had small amount of bleeding from her stoma last evening but none this morning. She states she is feeling well in general. She has been up and walking and has done a shower by herself. Consult [facility] as she had an appointment today with them. Hemoglobin is stable at 7.7. Anticipate discharge home by tomorrow. Objective - Vital Signs Vital signs: Vital Signs Temp 99.3 F 11/07/16 15:00 Pulse 93 11/07/16 15:00 Resp 16 11/07/16 15:00 BP 132/65 11/07/16 15:00 Pulse Ox 97 11/07/16 15:00 Intake & Output 11/06/16 11/07/16 11/07/16 18:59 06:59 18:59 Intake Total 50 Balance 50 Weight 63.503 kg Intake: IV 50 Other: Voiding Method Bedpan # Voids 2 1 1 - Exam Gen: This is a 60-year-old female. She is sitting up in bed and appears to be in no acute distress while at rest. HEENT: Head is atraumatic, normocephalic. Pupils equal, round. Sclerae is anicteric. Oral mucous membranes are dry. No thrush noted. NECK: Supple. No JVD. No lymphadenopathy. No thyromegaly. LUNGS: Clear to auscultation. No wheezes or rhonchi. No intercostal retractions. HEART: Regular rate and rhythm. No murmur. ABDOMEN: Soft. Bowel sounds are present. No masses. No tenderness. Right- sided ileostomy with no active bleeding. EXTREMITIES: No pedal edema. No calf tenderness. NEUROLOGICAL: Patient is awake, alert and oriented x3. Cranial nerves 2 through 12 are grossly intact. - Labs CBC & Chem 7: 11/07/16 08:43 11/07/16 08:43 Labs: Abnormal Lab Results - Last 24 Hours (Table) 11/06/16 11/06/16 11/07/16 Range/Units 17:22 20:59 08:43 RBC 2.37 L (3.80-5.40) m/uL Hgb 7.7 L (11.4-16.0) gm/dL Hct 22.9 L (34.0-46.0) % RDW 18.3 H (11.5-15.5) % Sodium (137-145) mmol/L Creatinine (0.52-1.04) mg/dL POC Glucose (mg/dL) 143 H 123 H (75-99) mg/dL Calcium (8.4-10.2) mg/dL AST (14-36) U/L Total Protein (6.3-8.2) g/dL Albumin (3.5-5.0) g/dL 11/07/16 11/07/16 Range/Units 08:43 12:08 RBC (3.80-5.40) m/uL Hgb (11.4-16.0) gm/dL Hct (34.0-46.0) % RDW (11.5-15.5) % Sodium 135 L (137-145) mmol/L Creatinine 1.18 H (0.52-1.04) mg/dL POC Glucose (mg/dL) 186 H (75-99) mg/dL Calcium 7.6 L (8.4-10.2) mg/dL AST 39 H (14-36) U/L Total Protein 5.0 L (6.3-8.2) g/dL Albumin 2.6 L (3.5-5.0) g/dL Assessment and Plan Plan: 1. Hemorrhage from ileostomy stoma site with plan for argon gas coagulation of the stoma. Patient has been admitted under the care of Dr. Barakat. Continue current pain management. Monitor hemoglobin closely. 2. Acute blood loss anemia status post transfusion of one unit of packed RBCs. Monitor hemoglobin closely 3. History of right hip septic joint and avascular necrosis with sepsis, septicemia and MRSA bacteremia in April 2016. Patient is status post revision of right total hip arthroplasty with Dr. Pena done on 10/22/2016. Consult with orthopedics appreciated. 4. Diabetes mellitus type 2. Patient is on Tradjenta at home which will be continued along with Humalog scale. 5. History of hypertension, not currently on medication. 6. Crohn's disease status post bowel resection and ileostomy, stable. Patient is normally on prednisone 20 mg daily. 7. Generalized anxiety disorder. Continue Xanaxas needed. 8. History of hepatitis C status post Harvoni treatment followed by rianna Hicks. 9. Gastrointestinal prophylaxis. Continue Protonix 40 mg daily. 10. DVT prophylaxis. SCDs and CRISTHIAN hose. Discharge plan: Return home Impression and plan of care have been directed as dictated by the signing physician. Glenis Hernandez nurse practitioner acting as scribe for signing physician. Cc: Dr. Fab Recinos
[2016-11-07 17:12] LABS: Glucose,Whole Blood 165 mg/dL (75-99)
[2016-11-07 20:40] LABS: Glucose,Whole Blood 128 mg/dL (75-99)
[2016-11-07] MEDS: ALPRAZolam 0.5 MG TAB PO PRN (22:24)
[2016-11-08 07:01] LABS: Glucose,Whole Blood 113 mg/dL (75-99)
[2016-11-08 07:36] VITALS: BP 121/58; PULSE 82; RESP 20; TEMP 97.7
[2016-11-08] MEDS: INSULIN LISPRO (humaLOG) 300 UNIT/3 ML VIAL SQ SCH ×2 (09:11→12:14)
[2016-11-08 09:15] LABS: Anisocytosis Slight; Basophils % (A) 0 %; CH 31.2; CHCM 31.6; Eosinophils # (A) 0.1 k/uL (0-0.7); Eosinophils % (A) 1 %; HCT 23.3 % (34.0-46.0); HDW 3.51; HGB 7.4 gm/dL (11.4-16.0); Hypochromasia Moderate; Luc % (Auto) 2; Lymphocytes # (A) 1.4 k/uL (1.0-4.8); Lymphocytes % (A) 29 %; MCH 31.6 pg (25.0-35.0); MCHC 31.7 g/dL (31.0-37.0); MCV 99.8 fL (80.0-100.0); Macrocytosis Moderate; Mean Platelet Volume 7.1; Monocytes # (A) 0.3 k/uL (0-1.0); Monocytes % (A) 6 %; Neutrophils # (A) 2.9 k/uL (1.3-7.7); Neutrophils % (A) 62 %; Poikilocytosis Slight; RBC 2.33 m/uL (3.80-5.40); RDW 18.4 % (11.5-15.5); WBC 4.7 k/uL (3.8-10.6); WBC (Perox) 4.78
[2016-11-08] MEDS: PANTOPRAZOLE 40 MG TABLET PO SCH (09:15)
[2016-11-08] MEDS: MAGNESIUM OXIDE 400 MG TAB PO SCH (09:15)
[2016-11-08] MEDS: LINAGLIPTIN 5 MG TABLET PO SCH (09:15)
[2016-11-08] MEDS: predniSONE 20 MG TAB PO SCH (09:15)
--- NOTE | 2016-11-08 10:08 | P.PN ---
Subjective Principal diagnosis: Ileostomy hemorrhage, status post stage II revision of right hip. This is a 60-year-old female who was admitted for ileostomy hemorrhage. Patient is status post stage II revision of the right hip. Patient denies any pain to the right hip and is ambulating without difficulty. Patient denies any drainage, erythema or swelling around the incision. Patient states she is doing well and ready to go home. Patient has no new complaints today. Objective - Vital Signs Vital signs: Vital Signs Temp 97.7 F 11/08/16 07:00 Pulse 82 11/08/16 07:00 Resp 20 11/08/16 07:00 BP 121/58 11/08/16 07:00 Pulse Ox 98 11/08/16 07:00 Intake & Output 11/07/16 11/08/16 11/08/16 18:59 06:59 18:59 Intake Total 480 Balance 480 Intake: Oral 480 Other: # Voids 1 1 # Bowel Movements 1 - Exam Vital signs are stable. Patient is in no acute distress and is alert and oriented 3. Calf is soft and nontender. Incision is clean, dry, and intact. Neurovascular status intact. Patient has full foot and ankle motion. Patient is able to ambulate without difficulty. - Labs CBC & Chem 7: 11/08/16 08:21 11/07/16 08:43 Labs: Abnormal Lab Results - Last 24 Hours (Table) 11/07/16 11/07/16 11/07/16 Range/Units 08:43 08:43 12:08 RBC 2.37 L (3.80-5.40) m/uL Hgb 7.7 L (11.4-16.0) gm/dL Hct 22.9 L (34.0-46.0) % RDW 18.3 H (11.5-15.5) % Sodium 135 L (137-145) mmol/L Creatinine 1.18 H (0.52-1.04) mg/dL POC Glucose (mg/dL) 186 H (75-99) mg/dL Calcium 7.6 L (8.4-10.2) mg/dL AST 39 H (14-36) U/L Total Protein 5.0 L (6.3-8.2) g/dL Albumin 2.6 L (3.5-5.0) g/dL 11/07/16 11/07/16 11/08/16 Range/Units 17:05 20:39 06:58 RBC (3.80-5.40) m/uL Hgb (11.4-16.0) gm/dL Hct (34.0-46.0) % RDW (11.5-15.5) % Sodium (137-145) mmol/L Creatinine (0.52-1.04) mg/dL POC Glucose (mg/dL) 165 H 128 H 113 H (75-99) mg/dL Calcium (8.4-10.2) mg/dL AST (14-36) U/L Total Protein (6.3-8.2) g/dL Albumin (3.5-5.0) g/dL 11/08/16 Range/Units 08:21 RBC 2.33 L (3.80-5.40) m/uL Hgb 7.4 L (11.4-16.0) gm/dL Hct 23.3 L (34.0-46.0) % RDW 18.4 H (11.5-15.5) % Sodium (137-145) mmol/L Creatinine (0.52-1.04) mg/dL POC Glucose (mg/dL) (75-99) mg/dL Calcium (8.4-10.2) mg/dL AST (14-36) U/L Total Protein (6.3-8.2) g/dL Albumin (3.5-5.0) g/dL Assessment and Plan (1) Status post right hip replacement Status: Acute Plan: #1 Continue weightbearing as tolerated. #2 Follow-up with [facility] in one week.
[2016-11-08 11:57] LABS: Glucose,Whole Blood 156 mg/dL (75-99)
[2016-11-08] MEDS: FERROUS SULFATE 325 MG TAB PO SCH (12:12)
[2016-11-08] MEDS: B COMPLEX-VIT C-VIT E-ZINC 1 EACH TAB PO SCH (12:12)
[2016-11-08] MEDS: MULTIVITAMINS, THERA 1 EACH TAB PO SCH (12:12)
--- NOTE | 2016-11-08 12:52 | P.PN ---
Progress Note - Text The patient is doing much better today. No further bleeding since the night before last. Tolerating a diet well. Feels a little weak. Hemoglobin stable at 7.4. On examination patient is awake alert in no distress. Abdomen is soft stoma reveals a greenish thick stool. No blood. Vitals are otherwise stable. Impression resolved the bleeding per ileostomy status post argon gas coagulation. Recommendation patient can be discharged to home today on a soft diet. Follow- up in the office in 3-4 weeks. May resume her home meds.
--- NOTE | 2016-11-08 12:56 | P.DS ---
Providers Date of admission: 11/05/16 16:17 Attending physician: Anuel Barakat Consults: 11/05/16 17:31 Consult Physician Routine Consulting Provider: Moi Robert Consult Reason/Comments: medical management Do you want consulting provider notified?: Yes 11/07/16 09:46 Consult Physician Routine Consulting Provider: Abdulaziz Pena Consult Reason/Comments: recheck right hip Do you want consulting provider notified?: Yes Primary care physician: Fab Recinos Plan - Discharge Summary Discharge Medication List predniSONE 20 mg PO DAILY 11/07/13 [History] Ferrous Sulfate [Iron (65 MG Elemental)] 325 mg PO DAILY 04/23/16 [History] ALPRAZolam [Xanax] 0.25 mg PO DAILY PRN 07/06/16 [History] Codeine Sulfate 120 mg PO TID PRN 07/06/16 [History] Linagliptin [Tradjenta] 5 mg PO DAILY 07/11/16 [History] Magnesium Oxide [Mag-Ox] 400 mg PO DAILY 10/19/16 [History] Multivits-Min/Iron/FA/Lutein [Centrum Silver Women Tablet] 1 tab PO DAILY [History] Vitamin B Complex 1 cap PO DAILY 10/19/16 [History] traMADol HCl [Ultram] 50 mg PO Q6H PRN 11/04/16 [History] Follow up Appointment(s)/Referral(s): aFb Recinos DO [Primary Care Provider] - 1 Week Abdulaziz Pena DO [Doctor of Osteopathic Medicine] - 1 Week Anuel Barakat MD [STAFF PHYSICIAN] - 4 Weeks Activity/Diet/Wound Care/Special Instructions: Check Hemoglobin in a week at Dr. Recinos's office.
--- NOTE | 2016-11-08 14:43 | P.PN ---
Subjective This is a 60-year-old female. Her primary care physician Dr. Recinos. She has a past medical history of Crohn's status post bowel resection followed by ileostomy, hepatitis C treated with Sergio and in remission followed by Dr. Colon, diabetes mellitus type 2, gastroesophageal reflux disease, hypertension, history of sepsis due to urinary tract infection and kidney stone and ARDS in 2007, bleeding from stoma, anxiety, septic joint and avascular necrosis of the right hip and MRSA bacteremia treated in April 2016 under the care of Dr. Thayer. She was hospitalized in June 2016 which time she was treated for acute GI bleed from her stoma status post laser treatment by Dr. Barakat with transfusion of packed RBCs. Repeat blood cultures at that time were negative. She was stabilized and discharged home. Patient states she had one other episode of small amount of bleeding from her stoma since that time but did not require admission. Her platelet count is in the 70s and patient states that in 2007 she did have platelet transfusion when she was septic. She has seen Dr. Roth on 2 occasions and did not need follow-up. She is status post revision of the right total hip arthroplasty. Patient was discharged on aspirin baby strength twice daily but did have subsequent bleeding with this. Patient does have follow-up appointment with Dr. Pena tomorrow. She has now been admitted under the care of Dr. Barakat for argon gas coagulation of the stoma. She was cauterized last evening by Dr. Leyva in the emergency center. She required transfusion of one unit of packed RBCs last evening. She denies any symptoms with her anemia. Her repeat hemoglobin is 7.8. There's been no problems with the functionality of her ileostomy. 11/07: Patient is currently tolerating soft diet. She states that she had small amount of bleeding from her stoma last evening but none this morning. She states she is feeling well in general. She has been up and walking and has done a shower by herself. [facility] as she had an appointment today with them. Hemoglobin is stable at 7.7. Anticipate discharge home by tomorrow. 11/08: Patient was seen today by , her hemoglobin is stable, she is tolerating her treatment very well, she is going to be discharged home today in follow-up with her PCP as an outpatient. Objective - Vital Signs Vital signs: Vital Signs Temp 97.7 F 11/08/16 07:00 Pulse 82 11/08/16 07:00 Resp 20 11/08/16 07:00 BP 121/58 11/08/16 07:00 Pulse Ox 98 11/08/16 07:00 Intake & Output 11/07/16 11/08/16 11/08/16 18:59 06:59 18:59 Intake Total 480 Balance 480 Weight 63.503 kg Intake: Oral 480 Other: # Voids 1 1 # Bowel Movements 1 - Constitutional General appearance: Present: no acute distress - EENT Eyes: Present: anicteric sclerae, EOMI, PERRLA, normal appearance. Absent: ptosis, scleral icterus ENT: Present: NA/AT, normal oropharynx. Absent: thrush Ears: bilateral: normal - Neck Neck: Present: normal ROM. Absent: lymphadenopathy, rigidity, stridor, thyromegaly Carotids: bilateral: upstroke normal - Respiratory Respiratory: bilateral: diminished, negative: dullness, rales, rhonchi, wheezing , prolonged expiration, prolonged inspiration - Cardiovascular Rhythm: regular Heart sounds: normal: S1, S2 Abnormal Heart Sounds: Present: systolic murmur. Absent: S3 Gallop, S4 Gallop - Gastrointestinal General gastrointestinal: Present: normal bowel sounds, soft. Absent: splenomegaly, tenderness, umbilical hernia (Colostomy bag in place.) - Integumentary Integumentary: Present: normal, normal turgor - Neurologic Neurologic: Present: CNII-XII intact - Musculoskeletal Musculoskeletal: Present: gait normal, generalized weakness - Psychiatric Psychiatric: Present: A&O x's 3, appropriate affect, intact judgment & insight - Labs CBC & Chem 7: 11/08/16 08:21 11/07/16 08:43 Labs: Abnormal Lab Results - Last 24 Hours (Table) 11/07/16 11/07/16 11/08/16 Range/Units 17:05 20:39 06:58 RBC (3.80-5.40) m/uL Hgb (11.4-16.0) gm/dL Hct (34.0-46.0) % RDW (11.5-15.5) % POC Glucose (mg/dL) 165 H 128 H 113 H (75-99) mg/dL 11/08/16 11/08/16 Range/Units 08:21 11:52 RBC 2.33 L (3.80-5.40) m/uL Hgb 7.4 L (11.4-16.0) gm/dL Hct 23.3 L (34.0-46.0) % RDW 18.4 H (11.5-15.5) % POC Glucose (mg/dL) 156 H (75-99) mg/dL Assessment and Plan Plan: Assessment and Plan Plan: 1. Hemorrhage from ileostomy stoma site with plan for argon gas coagulation of the stoma. Patient has been admitted under the care of Dr. Barakat. Continue current pain management. Monitor hemoglobin closely. 2. Acute blood loss anemia status post transfusion of one unit of packed RBCs. Monitor hemoglobin closely 3. History of right hip septic joint and avascular necrosis with sepsis, septicemia and MRSA bacteremia in April 2016. Patient is status post revision of right total hip arthroplasty with Dr. Pena done on 10/22/2016. Consult with orthopedics appreciated. 4. Diabetes mellitus type 2. Patient is on Tradjenta at home which will be continued along with Humalog scale. 5. History of hypertension, not currently on medication. 6. Crohn's disease status post bowel resection and ileostomy, stable. Patient is normally on prednisone 20 mg daily. 7. Generalized anxiety disorder. Continue Xanaxas needed. 8. History of hepatitis C status post Harvoni treatment followed by rianna Hicks. 9. Gastrointestinal prophylaxis. Continue Protonix 40 mg daily. 10. DVT prophylaxis. SCDs and CRISTHIAN ortiz. Discharge plan: Return home
--- NOTE | 2016-11-13 11:15 | P.CNOR ---
History of Present Illness - HPI Consult date: 11/07/16 History of present illness: This is a pleasant 60-year-old female well known to our service with recent history of stage II revision right total hip arthroplasty on 10/22/2016. In regards to her hip. She's done well postoperatively. She had bleeding at her ileostomy site and presented to the emergency department. She has history of anemia and GI bleed in the past. She has history of low platelets and hepatitis C as well.Her anticoagulation was managed by medicine postoperatively with a baby aspirin twice daily. She is now admitted under the care of Roxanne Hughes. She's of cauterization in the emergency department. She received 1 unit of packed red blood cells. In regards to her hip, she has been doing well. Review of Systems See HPI. No fevers, chills, shortness of breath, chest pain, abdominal pain, nausea, vomiting. Past Medical History Past Medical History: Diabetes Mellitus, GERD/Reflux, Liver Disease, Osteoarthritis (OA) Additional Past Medical History / Comment(s): crohns, hx. hep c-currently in remission, hx. sepsis & ards 2007, has ileostomy, hx. kidney stones, hx. of infection in hip-was on antibiotics, has spacer in, hx. anemia related to intermittent bleeding from stoma, has past hx. elevated heart rate, states is related to when she is anemic,pressure sore not open (to lt great toe) sees dr villafuerte, [place] History of Any Multi-Drug Resistant Organisms: MRSA Year Discovered:: 04/25/16 MDRO Source:: Blood & Right Hip Past Surgical History: Appendectomy, Bowel Resection, Cholecystectomy, Hernia Repair, Hysterectomy, Tubal Ligation Additional Past Surgical History / Comment(s): ileostomy 2009 WITH 3-4 RE- SUTURING EPISODES RELATED TO BLEEDING, ileoscopy w/argon gas coagulation of stoma, 10-22-16 revison rt toal hip arthroplasty Past Anesthesia/Blood Transfusion Reactions: No Reported Reaction Past Psychological History: Anxiety Additional Psychological History / Comment(s): pt lives with her spouse and 1 pet dog. lives in a single level home that has 3 steps in which to enter. had knee sx 10-22-16- was to start o/p pt on . Smoking Status: Former smoker Past Alcohol Use History: None Reported Additional Past Alcohol Use History / Comment(s): started 1977,quit smoking 2007 , 1ppd Past Drug Use History: None Reported - Past Family History Mother Additional Family Medical History / Comment(s): Mother at age 88 from CVA. Sister(s) Additional Family Medical History / Comment(s): Patient has 3 sisters with no major medical problems. Patient does not have any brothers. Patient has 2 sons with no major medical problems. Father Family Medical History: Cancer Additional Family Medical History / Comment(s): MOTHER- DIABETES Medications and Allergies Home Medications Medication Instructions Recorded Confirmed Type predniSONE 20 mg PO DAILY 11/07/13 11/05/16 History Ferrous Sulfate [Iron (65 MG 325 mg PO DAILY 04/23/16 11/05/16 History Elemental)] ALPRAZolam [Xanax] 0.25 mg PO DAILY PRN 07/06/16 11/05/16 History Codeine Sulfate 120 mg PO TID PRN 07/06/16 11/05/16 History Linagliptin [Tradjenta] 5 mg PO DAILY 07/11/16 11/05/16 History Magnesium Oxide [Mag-Ox] 400 mg PO DAILY 10/19/16 11/05/16 History Multivit-Min/Iron/Folic/Lutein 1 tab PO DAILY 10/19/16 11/05/16 History [Centrum Silver Women Tablet] Vitamin B Complex 1 cap PO DAILY 10/19/16 11/05/16 History traMADol HCl [Ultram] 50 mg PO Q6H PRN 11/04/16 11/05/16 History Allergies Allergy/AdvReac Type Severity Reaction Status Date / Time adhesive tape Allergy Severe Rash/Hives/Skin Verified 11/05/16 16:35 Peeling Quinolones Allergy Severe Anaphylaxis Verified 11/05/16 16:35 /Swelling acetaminophen [From Tylenol] AdvReac Severe Liver Verified 11/05/16 16:35 Damage Iodinated Contrast Media - AdvReac Severe Chest Pain Verified 11/05/16 16:35 Oral and [Iodinated Contrast Media - IV Dye] NSAIDS (Non-Steroidal AdvReac Severe GI Verified 11/05/16 16:35 Anti-Inflamma Bleeding/Liver Damage Physical Examination The patient does not appear to be acute distress. She is alert and orientated 3. Dressing appears clean, dry, intact. There is some dressing stuck at the proximal incision, which was removed today. There is no active drainage or erythema. Postoperative swelling as expected with the surgery. Calf are soft and nontender. She has good foot and ankle motion without difficulty. Sensation and circulatory status is intact. Results - Labs Labs: Abnormal Lab Results - Last 24 Hours (Table) 11/06/16 11/06/16 11/06/16 Range/Units 11:33 11:33 17:22 RBC 2.51 L (3.80-5.40) m/uL Hgb 7.8 L (11.4-16.0) gm/dL Hct 25.0 L (34.0-46.0) % RDW 18.6 H (11.5-15.5) % Sodium 135 L (137-145) mmol/L BUN 21 H (7-17) mg/dL Creatinine 1.25 H (0.52-1.04) mg/dL Glucose 73 L (74-99) mg/dL POC Glucose (mg/dL) 143 H (75-99) mg/dL Calcium 7.8 L (8.4-10.2) mg/dL AST 42 H (14-36) U/L Total Protein 4.9 L (6.3-8.2) g/dL Albumin 2.6 L (3.5-5.0) g/dL 11/06/16 11/07/16 11/07/16 Range/Units 20:59 08:43 08:43 RBC 2.37 L (3.80-5.40) m/uL Hgb 7.7 L (11.4-16.0) gm/dL Hct 22.9 L (34.0-46.0) % RDW 18.3 H (11.5-15.5) % Sodium 135 L (137-145) mmol/L BUN (7-17) mg/dL Creatinine 1.18 H (0.52-1.04) mg/dL Glucose (74-99) mg/dL POC Glucose (mg/dL) 123 H (75-99) mg/dL Calcium 7.6 L (8.4-10.2) mg/dL AST 39 H (14-36) U/L Total Protein 5.0 L (6.3-8.2) g/dL Albumin 2.6 L (3.5-5.0) g/dL H & H 11/05/16 11/05/16 11/06/16 Range/Units 15:55 23:16 11:33 Hgb 7.7 L 6.6 L* 7.8 L (11.4-16.0) gm/dL Hct 24.2 L 20.3 L 25.0 L (34.0-46.0) % 11/07/16 Range/Units 08:43 Hgb 7.7 L (11.4-16.0) gm/dL Hct 22.9 L (34.0-46.0) % Coagulation 11/05/16 Range/Units 15:55 INR 1.1 (<1.1) Result Diagrams: 11/08/16 08:21 11/07/16 08:43 Assessment and Plan (1) Status post right hip replacement Status: Acute Plan: The clinical findings were discussed with the patient at bedside. Dr. Abdulaziz Pena did evaluate the patient as well. We will obtain postoperative x-rays as the patient did have follow-up appointment scheduled for tomorrow. She may continue with routine postoperative care in regards to her hip. Anticoagulation will be determined by medicine and general surgery due to her bleeding and anemia.
== END 2016-11-08 16:08 | disposition home or self-care (01) | DRG 394 ==
LOC: EC 14:41 → 4MS4W 16:17
PROVIDERS: ADMIT Surgery; ATTEND Surgery
PROC: 30230N1 Transfusion of Nonautologous Red Blood Cells into Peripheral Vein, Open Approach (ICD-10-PCS; 2016-11-06)
PROC: 0W3P8ZZ Control Bleeding in Gastrointestinal Tract, Via Natural or Artificial Opening Endoscopic (ICD-10-PCS; principal; 2016-11-06 09:00)
DX: K94.11 Enterostomy hemorrhage (principal); K50.111 Crohn's disease of large intestine with rectal bleeding; D62 Acute posthemorrhagic anemia; L92.9 Granulomatous disorder of the skin and subcutaneous tissue, unspecified; I10 Essential (primary) hypertension; K76.9 Liver disease, unspecified; M19.91 Primary osteoarthritis, unspecified site; B19.20 Unspecified viral hepatitis C without hepatic coma; Z90.710 Acquired absence of both cervix and uterus; Z96.641 Presence of right artificial hip joint; Z87.442 Personal history of urinary calculi; Z87.891 Personal history of nicotine dependence; Z79.84 Long term (current) use of oral hypoglycemic drugs; Z79.52 Long term (current) use of systemic steroids; Y84.8 Other medical procedures as the cause of abnormal reaction of the patient, or of later complication, without mention of misadventure at the time of the procedure; Y92.002 Bathroom of unspecified non-institutional (private) residence as the place of occurrence of the external cause; Z79.899 Other long term (current) drug therapy; K21.9 Gastro-esophageal reflux disease without esophagitis; F41.9 Anxiety disorder, unspecified; Z86.14 Personal history of Methicillin resistant Staphylococcus aureus infection; Z90.49 Acquired absence of other specified parts of digestive tract; E11.9 Type 2 diabetes mellitus without complications
CPT/HCPCS: 36415; 44380; 73502; 80053; 83036; 85025; 85027; 85610; 85730; 86850; 86900; 86901; 86920

== ENCOUNTER → 2016-12-10 | Outpatient (CLI) | payer OTHER, MEDICARE ==
[2016-12-10 14:36] LABS: Basophils % (A) 0 %; CH 32.3; CHCM 32.7; Eosinophils # (A) 0.1 k/uL (0-0.7); Eosinophils % (A) 1 %; HCT 35.8 % (34.0-46.0); HDW 2.76; Luc # (Auto) 0.08; Luc % (Auto) 1; Lymphocytes # (A) 0.7 k/uL (1.0-4.8); Lymphocytes % (A) 12 %; MCH 32.7 pg (25.0-35.0); MCHC 33.1 g/dL (31.0-37.0); Mean Platelet Volume 7.4; Monocytes # (A) 0.2 k/uL (0-1.0); Monocytes % (A) 4 %; Neutrophils % (A) 82 %; RBC 3.62 m/uL (3.80-5.40); RDW 14.9 % (11.5-15.5); WBC 6.1 k/uL (3.8-10.6); WBC (Perox) 6.12
[2016-12-10 14:40] LABS: HGB 11.8 gm/dL (11.4-16.0)
== END | disposition home or self-care (01) ==
LOC: LABWHC1 13:50
PROVIDERS: ATTEND Family Medicine
DX: D64.9 Anemia, unspecified (principal)
CPT/HCPCS: 36415; 85025

== ENCOUNTER 2016-12-29 14:18 | Emergency (ER) | payer OTHER, MEDICARE ==
[2016-12-29 14:27] VITALS: RESP 18
--- NOTE | 2016-12-29 15:06 | ED ---
Dizziness HPI - General Chief Complaint: Dizziness Stated Complaint: light headed Time Seen by Provider: 12/29/16 14:39 Source: patient Mode of arrival: wheelchair Limitations: no limitations - History of Present Illness Initial Comments: 61-year-old female presents with dizziness lightheadedness for the last few days. Patient states she just feels foggy in the head. She is not having any spinning episodes there is no visual changes no syncopal episodes. Patient also having change of urine output. She states her stream is not full it's choppy at times. She denies any pain with urination or urgency. Patient does feel dry in the mouth. Patient does have a ostomy bag due to Crohn's disease. She states there is no change in her stool. She denies any abdominal pain but does feel some right low to mid back pain. Patient does have a history of kidney stones thrombocytopenia and anemia. Patient was intubated and in the ICU about 20 years ago and septic at that time. Patient concerned about a urinary tract infection today. She denies any cough or congestion - Related Data Home Medications Medication Instructions Recorded Confirmed predniSONE 20 mg PO DAILY 11/07/13 12/29/16 Ferrous Sulfate [Iron (65 MG 325 mg PO Q72H 04/23/16 12/29/16 Elemental)] Codeine Sulfate 120 mg PO TID PRN 07/06/16 12/29/16 Linagliptin [Tradjenta] 5 mg PO DAILY 07/11/16 12/29/16 Magnesium Oxide [Mag-Ox] 400 mg PO DAILY 10/19/16 12/29/16 Multivit-Min/Iron/Folic/Lutein 1 tab PO DAILY 10/19/16 12/29/16 [Centrum Silver Women Tablet] ALPRAZolam [Xanax] 0.5 mg PO HS 12/29/16 12/29/16 B,C/Folic/Zinc/Copper Ox/Vit E 1 tab PO DAILY 12/29/16 12/29/16 [Stress B-Complex Tablet] Previous Rx's Medication Instructions Recorded Cefuroxime Axetil [Ceftin] 500 mg PO BID #14 tab 12/29/16 Lisinopril [Zestril] 10 mg PO DAILY #30 tab 12/29/16 Allergies Allergy/AdvReac Type Severity Reaction Status Date / Time adhesive tape Allergy Severe Rash/Hives/Skin Verified 12/29/16 15:09 Peeling Quinolones Allergy Severe Anaphylaxis Verified 12/29/16 15:09 /Swelling levofloxacin [From Levaquin] Allergy Swelling Verified 12/29/16 15:09 acetaminophen [From Tylenol] AdvReac Severe Liver Verified 12/29/16 15:09 Damage Iodinated Contrast Media - AdvReac Severe Chest Pain Verified 12/29/16 15:09 Oral and [Iodinated Contrast Media - IV Dye] NSAIDS (Non-Steroidal AdvReac Severe GI Verified 12/29/16 15:09 Anti-Inflamma Bleeding/Liver Damage Review of Systems ROS Statement: Those systems with pertinent positive or pertinent negative responses have been documented in the HPI. ROS Other: All systems not noted in ROS Statement are negative. Constitutional: Denies: fever, chills Respiratory: Denies: cough Cardiovascular: Denies: chest pain Endocrine: Denies: fatigue Gastrointestinal: Denies: abdominal pain, nausea, vomiting, diarrhea, constipation Genitourinary: Reports: other (Change of urine output) Musculoskeletal: Reports: back pain Neurological: Reports: vertigo. Denies: headache, weakness, numbness, paresthesias Past Medical History Past Medical History: Diabetes Mellitus, GERD/Reflux, Liver Disease, Osteoarthritis (OA) Additional Past Medical History / Comment(s): crohns, hx. hep c-currently in remission, hx. sepsis & ards 2007, has ileostomy, hx. kidney stones, hx. of infection in hip-was on antibiotics, has spacer in, hx. anemia related to intermittent bleeding from stoma, has past hx. elevated heart rate, states is related to when she is anemic,pressure sore not open (to lt great toe) sees dr villafuerte, [place] History of Any Multi-Drug Resistant Organisms: MRSA Date of last positivie culture/infection: 04/25/16 MDRO Source:: Blood & Right Hip Past Surgical History: Appendectomy, Bowel Resection, Cholecystectomy, Hernia Repair, Hysterectomy, Tubal Ligation Additional Past Surgical History / Comment(s): ileostomy 2009 WITH 3-4 RE- SUTURING EPISODES RELATED TO BLEEDING, ileoscopy w/argon gas coagulation of stoma, 10-22-16 revison rt toal hip arthroplasty Past Anesthesia/Blood Transfusion Reactions: No Reported Reaction Past Psychological History: Anxiety Smoking Status: Former smoker Past Alcohol Use History: None Reported Past Drug Use History: None Reported - Past Family History Mother Additional Family Medical History / Comment(s): Mother at age 88 from CVA. Sister(s) Additional Family Medical History / Comment(s): Patient has 3 sisters with no major medical problems. Patient does not have any brothers. Patient has 2 sons with no major medical problems. Father Family Medical History: Cancer Additional Family Medical History / Comment(s): MOTHER- DIABETES General Exam Limitations: no limitations General appearance: alert, in no apparent distress Head exam: Present: atraumatic, normocephalic, normal inspection Eye exam: Present: normal appearance ENT exam: Present: normal exam, mucous membranes moist Expanded TM/Canal exam: Cerumen Impaction: Right TM, Left TM Neck exam: Present: normal inspection. Absent: tenderness, meningismus, lymphadenopathy Respiratory exam: Present: normal lung sounds bilaterally. Absent: respiratory distress, wheezes, rales, rhonchi, stridor Cardiovascular Exam: Present: regular rate, normal rhythm, normal heart sounds. Absent: systolic murmur, diastolic murmur, rubs, gallop, clicks GI/Abdominal exam: Present: soft, other (Ostomy, ). Absent: distended, tenderness, guarding, rebound Back exam: Present: normal inspection, full ROM. Absent: CVA tenderness (R), CVA tenderness (L) Neurological exam: Present: alert, oriented X3, CN II-XII intact Psychiatric exam: Present: normal affect, normal mood Skin exam: Present: warm, dry, intact, normal color. Absent: rash Course Vital Signs 12/29/16 12/29/16 12/29/16 14:25 15:29 15:40 Temperature 98.2 F 100.2 F H Pulse Rate 81 75 Respiratory 18 18 Rate Blood Pressure 195/90 193/92 Blood Pressure 206/92 [Right Arm Sitting] Blood Pressure 202/91 [Right Arm Standing] Blood Pressure 197/91 [Right Arm Supine] O2 Sat by Pulse 100 96 Oximetry 12/29/16 12/29/16 16:10 16:43 Temperature 98.5 F Pulse Rate 73 69 Respiratory 18 Rate Blood Pressure 208/93 182/86 Blood Pressure [Right Arm Sitting] Blood Pressure [Right Arm Standing] Blood Pressure [Right Arm Supine] O2 Sat by Pulse 97 96 Oximetry Medical Decision Making - Medical Decision Making Reviewed blood pressures decides to 0.1 of Catapres we will continue to monitor blood pressures every 15 minutes. Patient feeling fine. Reviewed labs no changes from her normal we will start on antibiotics for possible early urinary tract infection. Patient's blood pressure went down to 150/80 at 5 PM. Patient feeling well she states her head doesn't feel as dizzy lightheaded sensation. Patient will be sent home on lisinopril 10 mg to be followed up with her doctor in outpatient setting this week. Patient to continue to monitor blood pressure continue good oral hydration. Patient to start antibiotic for UTI and we'll wait for urine culture results. Patient to return if symptoms progress or worsen. - Lab Data Result diagrams: 12/29/16 15:00 12/29/16 15:00 Lab Results 12/29/16 12/29/16 12/29/16 Range/Units 15:00 15:00 15:00 WBC 7.4 (3.8-10.6) k/uL RBC 4.26 (3.80-5.40) m/uL Hgb 13.8 (11.4-16.0) gm/dL Hct 41.4 (34.0-46.0) % MCV 97.2 (80.0-100.0) fL MCH 32.4 (25.0-35.0) pg MCHC 33.4 (31.0-37.0) g/dL RDW 14.3 (11.5-15.5) % Plt Count 84 L (150-450) k/uL Neutrophils % 90 % Lymphocytes % 6 % Monocytes % 3 % Eosinophils % 1 % Basophils % 0 % Neutrophils # 6.7 (1.3-7.7) k/uL Lymphocytes # 0.4 L (1.0-4.8) k/uL Monocytes # 0.2 (0-1.0) k/uL Eosinophils # 0.0 (0-0.7) k/uL Basophils # 0.0 (0-0.2) k/uL Sodium 139 (137-145) mmol/L Potassium 4.6 (3.5-5.1) mmol/L Chloride 100 (98-107) mmol/L Carbon Dioxide 29 (22-30) mmol/L Anion Gap 10 mmol/L BUN 24 H (7-17) mg/dL Creatinine 1.20 H (0.52-1.04) mg/dL Est GFR (MDRD) Af Amer 56 (>60 ml/min/1.73 sqM) Est GFR (MDRD) Non-Af 46 (>60 ml/min/1.73 sqM) Glucose 149 H (74-99) mg/dL Calcium 9.5 (8.4-10.2) mg/dL Total Bilirubin 0.7 (0.2-1.3) mg/dL AST 47 H (14-36) U/L ALT 58 H (9-52) U/L Alkaline Phosphatase 111 (38-126) U/L Total Protein 6.6 (6.3-8.2) g/dL Albumin 4.0 (3.5-5.0) g/dL Urine Color Yellow Urine Appearance Clear (Clear) Urine pH 6.5 (5.0-8.0) Ur Specific [place] 1.009 (1.001-1.035) Urine Protein 3+ H (Negative) Urine Glucose (UA) Negative (Negative) Urine Ketones Negative (Negative) Urine Blood Moderate H (Negative) Urine Nitrite Negative (Negative) Urine Bilirubin Negative (Negative) Urine Urobilinogen <2.0 (<2.0) mg/dL Ur Leukocyte Esterase Moderate H (Negative) Urine RBC 6 H (0-5) /hpf Urine WBC 20 H (0-5) /hpf Ur Squamous Epith Cells <1 (0-4) /hpf Urine Bacteria Rare H (None) /hpf Urine Mucus Rare H (None) /hpf Disposition Clinical Impression: UTI (urinary tract infection), Dehydration, Hypertension, Dizziness Disposition: HOME SELF-CARE Condition: Good Instructions: Hypertension (ED), Urinary Tract Infection in Women (ED) Prescriptions: Cefuroxime Axetil [Ceftin] 500 mg PO BID #14 tab Lisinopril [Zestril] 10 mg PO DAILY #30 tab Referrals: Fab Recinos DO [Primary Care Provider] - 1-2 days Time of Disposition: 17:13
[2016-12-29 15:16] LABS: Appearance,Urine Clear (Clear); Bacteria,Urine Rare /hpf; Bilirubin,Urine Negative (Negative); Glucose,Urine (UA) Negative (Negative); Ketones,Urine Negative (Negative); Leukocyte Esterase,Urine Moderate (Negative); Mucus,Urine Rare /hpf; Nitrite,Urine Negative (Negative); PH, Urine 6.5 (5.0-8.0); Particle Count 1147; Protein,Urine 3+ (Negative); RBC,Urine 6 /hpf (0-5); Specific Gravity,Urine 1.009 (1.001-1.035); Squamous Epithelial Cell,Urine <1 /hpf (0-4); UA Billing (MACRO vs. MICRO) MICRO; Urobilinogen,Urine <2.0 mg/dL (<2.0); WBC,Urine 20 /hpf (0-5)
[2016-12-29 15:19] LABS: Basophils % (A) 0 %; CH 32.2; CHCM 33.2; Eosinophils % (A) 1 %; HCT 41.4 % (34.0-46.0); HDW 2.74; HGB 13.8 gm/dL (11.4-16.0); Luc # (Auto) 0.05; Luc % (Auto) 1; Lymphocytes # (A) 0.4 k/uL (1.0-4.8); Lymphocytes % (A) 6 %; MCH 32.4 pg (25.0-35.0); MCHC 33.4 g/dL (31.0-37.0); MCV 97.2 fL (80.0-100.0); Mean Platelet Volume 7.5; Monocytes # (A) 0.2 k/uL (0-1.0); Monocytes % (A) 3 %; Neutrophils # (A) 6.7 k/uL (1.3-7.7); Neutrophils % (A) 90 %; RBC 4.26 m/uL (3.80-5.40); RDW 14.3 % (11.5-15.5); WBC 7.4 k/uL (3.8-10.6); WBC (Perox) 7.49
[2016-12-29 15:37] LABS: Calcium 9.5 mg/dL (8.4-10.2); Potassium 4.6 mmol/L (3.5-5.1); Total Bilirubin 0.7 mg/dL (0.2-1.3); Total Protein 6.6 g/dL (6.3-8.2)
[2016-12-29] MEDS ORDERED: cloNIDine HCL 0.1 MG TAB PO STA (15:46)
--- NOTE | 2016-12-29 15:51 | XR ---
EXAMINATION TYPE: XR KUB DATE OF EXAM: 12/29/2016 CLINICAL DATA: 61 year-old female right flank pain, PHH COMPARISON: 01/24/2014 FINDINGS: Lung bases are clear. No evidence for free intraperitoneal air. No dilated small bowel or air-fluid levels. No significant stool burden. Cholecystectomy clips. There may be subtle punctate calcifications at the right kidney. Multiple pelvic phleboliths are unchanged. Right hip arthroplasty partially visualized. IMPRESSION: 1. No evidence of bowel obstruction or free intraperitoneal air. 2. Possible subtle punctate calcifications within the right kidney.
[2016-12-29] MEDS ORDERED: CEFUROXIME 250 MG TAB PO STA (15:52)
[2016-12-29] MEDS ORDERED: SODIUM CHLORIDE 0.9% 500 ML IV ONE (15:59)
[2016-12-29] MEDS ORDERED: SODIUM CHLORIDE 0.9% 1,000 ML IV SCH (16:00)
[2016-12-29 16:44] VITALS: PULSE 69
[2016-12-29 17:24] VITALS: BP 150/80; TEMP 97.9
== END 2016-12-29 17:24 | disposition home or self-care (01) ==
LOC: EC 14:18
DX: E86.0 Dehydration (principal); N39.0 Urinary tract infection, site not specified; I10 Essential (primary) hypertension; E11.9 Type 2 diabetes mellitus without complications; F41.9 Anxiety disorder, unspecified; M19.90 Unspecified osteoarthritis, unspecified site; Z87.891 Personal history of nicotine dependence; Z86.14 Personal history of Methicillin resistant Staphylococcus aureus infection; Z79.52 Long term (current) use of systemic steroids; Z79.84 Long term (current) use of oral hypoglycemic drugs; Z79.899 Other long term (current) drug therapy; Z88.1 Allergy status to other antibiotic agents; Z88.6 Allergy status to analgesic agent; Z91.041 Radiographic dye allergy status; Z91.048 Other nonmedicinal substance allergy status
CPT/HCPCS: 36415; 74000; 80053; 81001; 85025; 96360; 99284

== ENCOUNTER → 2017-01-28 | Outpatient (CLI) | payer OTHER, MEDICARE ==
[2017-01-28 17:06] LABS: Basophils % (A) 0 %; CH 32.9; CHCM 33.8; Eosinophils % (A) 0 %; HDW 2.69; HGB 12.3 gm/dL (11.4-16.0); Luc # (Auto) 0.14; Luc % (Auto) 2; Lymphocytes # (A) 1.3 k/uL (1.0-4.8); Lymphocytes % (A) 15 %; MCH 32.4 pg (25.0-35.0); MCHC 33.2 g/dL (31.0-37.0); MCV 97.8 fL (80.0-100.0); Mean Platelet Volume 7.9; Monocytes # (A) 0.4 k/uL (0-1.0); Monocytes % (A) 4 %; Neutrophils # (A) 6.9 k/uL (1.3-7.7); Neutrophils % (A) 79 %; RBC 3.78 m/uL (3.80-5.40); RDW 14.9 % (11.5-15.5); WBC 8.7 k/uL (3.8-10.6); WBC (Perox) 9.28
[2017-01-28 17:37] LABS: % Iron Saturation 30.8 % (20-50)
== END | disposition home or self-care (01) ==
LOC: LABWHC1 16:47
PROVIDERS: ATTEND Internal Medicine Gastroenterology
DX: D50.9 Iron deficiency anemia, unspecified (principal)
CPT/HCPCS: 36415; 82728; 83540; 83550; 85025

== ENCOUNTER → 2017-03-01 | Outpatient (CLI) | payer OTHER, MEDICARE ==
[2017-03-01 17:17] LABS: Basophils % (A) 0 %; CHCM 33.6; Eosinophils % (A) 0 %; HCT 36.5 % (34.0-46.0); HDW 2.76; HGB 12.5 gm/dL (11.4-16.0); Luc # (Auto) 0.06; Luc % (Auto) 1; Lymphocytes # (A) 0.8 k/uL (1.0-4.8); Lymphocytes % (A) 10 %; MCH 33.7 pg (25.0-35.0); MCHC 34.1 g/dL (31.0-37.0); MCV 98.8 fL (80.0-100.0); Macrocytosis Slight; Mean Platelet Volume 7.7; Monocytes # (A) 0.1 k/uL (0-1.0); Monocytes % (A) 2 %; Neutrophils # (A) 6.2 k/uL (1.3-7.7); Neutrophils % (A) 87 %; WBC 7.2 k/uL (3.8-10.6); WBC (Perox) 7.24
[2017-03-01 17:49] LABS: Polychromasia Present
== END | disposition home or self-care (01) ==
LOC: LABWHC1 16:47
PROVIDERS: ATTEND Family Medicine
DX: R53.83 Other fatigue (principal)
CPT/HCPCS: 36415; 85025

== ENCOUNTER → 2017-05-14 | Outpatient (CLI) | payer OTHER, MEDICARE ==
[2017-05-14 16:41] LABS: CH 33.6; CHCM 32.1; HCT 36.6 % (34.0-46.0); HDW 2.68; HGB 11.7 gm/dL (11.4-16.0); MCH 33.8 pg (25.0-35.0); MCV 105.6 fL (80.0-100.0); Macrocytosis Moderate; Mean Platelet Volume 7.8; RBC 3.46 m/uL (3.80-5.40); RDW 14.7 % (11.5-15.5); WBC 7.7 k/uL (3.8-10.6)
[2017-05-14 16:45] LABS: Appearance,Urine Clear (Clear); Bacteria,Urine Rare /hpf; Bilirubin,Urine Negative (Negative); Glucose,Urine (UA) Negative (Negative); Ketones,Urine Negative (Negative); Leukocyte Esterase,Urine Trace (Negative); Mucus,Urine Rare /hpf; Nitrite,Urine Negative (Negative); PH, Urine 6.5 (5.0-8.0); Particle Count 632; Protein,Urine 2+ (Negative); RBC,Urine 2 /hpf (0-5); Specific Gravity,Urine 1.017 (1.001-1.035); UA Billing (MACRO vs. MICRO) MICRO; Urobilinogen,Urine <2.0 mg/dL (<2.0); WBC,Urine 4 /hpf (0-5)
[2017-05-14 16:56] LABS: Calcium 9.8 mg/dL (8.4-10.2); Phosphorus 3.3 mg/dL (2.5-4.5); Potassium 5.1 mmol/L (3.5-5.1); Total Bilirubin 0.6 mg/dL (0.2-1.3)
== END | disposition home or self-care (01) ==
LOC: LABWHC1 16:01
PROVIDERS: ATTEND Internal Medicine Nephrology
DX: D64.9 Anemia, unspecified (principal); N39.0 Urinary tract infection, site not specified; E83.39 Other disorders of phosphorus metabolism
CPT/HCPCS: 36415; 80053; 81001; 84100; 85027

== ENCOUNTER → 2017-05-14 | Outpatient (CLI) | payer OTHER, MEDICARE ==
--- NOTE | 2017-05-14 16:37 | US ---
EXAMINATION TYPE: US carotid duplex BILAT DATE OF EXAM: 05/14/2017 COMPARISON: NONE CLINICAL HISTORY: 61-year-old female, evaluate for I65.23 Carotid occlusive disease. Foggie head, no h/o stroke. TECHNIQUE: Carotid duplex ultrasound examination. Indirect Doppler criteria was utilized. FINDINGS: Grayscale images show very mild atelectatic change at the bifurcations. EXAM MEASUREMENTS: RIGHT: Peak Systolic Velocity (PSV) cm/sec ----- Right CCA: 103.6 ----- Right ICA: 112.8 ----- Right ECA: 108.4 ICA/CCA ratio: 1.1 RIGHT: End Diastole cm/sec ----- Right CCA: 19.3 ----- Right ICA: 37.0 ----- Right ECA: 12.8 LEFT: Peak Systolic Velocity (PSV) cm/sec ----- Left CCA: 116.0 ----- Left ICA: 103.6. ----- Left ECA: 109.1 ICA/CCA ratio: 0.9 LEFT: End Diastole cm/sec ----- Left CCA: 28.0 ----- Left ICA: 34.4 ----- Left ECA: 11.3 VERTEBRALS (direction of flow): Right Vertebral: Antegrade Left Vertebral: Antegrade Rhythm: Normal IMPRESSION: No hemodynamically significant stenosis appreciated in either internal carotid artery. Criteria for Assigning % of Stenosis / Diameter reduction (Estimation based on the indirect measurements of the internal carotid artery velocities (ICA PSV). 1. Normal (no stenosis)=ICA PSV < 125 cm/s: ratio < 2.0: ICA EDV<40 cm/s. 2. Less than 50% stenosis=ICA PSV < 125 cm/s: ratio < 2.0: ICA EDV<40 cm/s. 3. 50 to 69% stenosis=ICA PSV of 125 to 230 cm/s: ration 2.0 ? 4.0: ICA EDV 40-100 cm/s. 4. Greater than 70% stenosis to near occlusion= ICA PSV > 230 cm/s: ratio > 4.0: ICA EDV > 100 cm/s. 5. Near occlusion= ICA PSV velocities may be low or undetectable: variable ratio and ICA EDV. 6. Total occlusion=unable to detect flow.
== END | disposition home or self-care (01) ==
LOC: RADUSWWP 15:29
PROVIDERS: ATTEND Family Medicine
DX: I65.23 Occlusion and stenosis of bilateral carotid arteries (principal)
CPT/HCPCS: 93880

== ENCOUNTER → 2017-07-15 | Outpatient (CLI) | payer OTHER, MEDICARE ==
[2017-07-15 17:12] LABS: HCT 36.8 % (34.0-46.0); HGB 11.4 gm/dL (11.4-16.0); Hypochromasia Slight; MCH 32.3 pg (25.0-35.0); MCV 104.1 fL (80.0-100.0); Macrocytosis Slight; Mean Platelet Volume 7.8; RBC 3.53 m/uL (3.80-5.40); RDW 14.3 % (11.5-15.5); WBC 5.1 k/uL (3.8-10.6)
[2017-07-15 17:14] LABS: Platelet Count 79 k/uL (150-450)
[2017-07-15 17:25] LABS: Calcium 9.1 mg/dL (8.4-10.2); Phosphorus 2.3 mg/dL (2.5-4.5); Potassium 4.5 mmol/L (3.5-5.1); Uric Acid 6.9 mg/dL (3.7-7.4)
[2017-07-15 17:26] LABS: Amorphous Sediment,Urine Occasional /hpf; Appearance,Urine Cloudy (Clear); Bacteria,Urine Moderate /hpf; Bilirubin,Urine Negative (Negative); Blood,Urine Small (Negative); Color,Urine Yellow; Creatinine,Urine Random 187.4 mg/dL; Glucose,Urine (UA) 1+ (Negative); Hyaline Casts,Urine 10 /lpf (0-2); Hyphae Yeast, Urine Occasional /hpf; Ketones,Urine Trace (Negative); Leukocyte Esterase,Urine Large (Negative); Mucus,Urine Rare /hpf; Nitrite,Urine Positive (Negative); Protein,Urine 2+ (Negative); RBC,Urine 4 /hpf (0-5); Specific Gravity,Urine 1.019 (1.001-1.035); Squamous Epithelial Cell,Urine 3 /hpf (0-4); Urobilinogen,Urine <2.0 mg/dL (<2.0); WBC,Urine >182 /hpf (0-5)
[2017-07-16 01:32] LABS: Iron Saturation 16.58 (12.00-45.00)
[2017-07-16 01:43] LABS: Vitamin D 25 Hydroxy 10.8 ng/mL (30.0-100.0)
[2017-07-16 01:57] LABS: Anti-DNA, DS unit <1.0 IU/mL; DNA Double-Stranded NEGATIVE (NEGATIVE)
[2017-07-16 02:16] LABS: Parathyroid Hormone Intact 28.6 pg/mL (14.0-72.0)
[2017-07-16 03:27] LABS: Hemoglobin A1C 4.6 % (4.0-6.0)
[2017-07-16 09:34] LABS: Complement C3 95.9 mg/dL (80.0-207.0)
[2017-07-16 14:40] LABS: C-ANCA <1:20 Titer (<1:20); P-ANCA <1:20 Titer (<1:20)
== END | disposition home or self-care (01) ==
LOC: LABWHC1 16:19
PROVIDERS: ATTEND Nurse Practitioner Family
DX: N17.9 Acute kidney failure, unspecified (principal); E11.9 Type 2 diabetes mellitus without complications; D64.9 Anemia, unspecified; N39.0 Urinary tract infection, site not specified; N25.81 Secondary hyperparathyroidism of renal origin; E55.9 Vitamin D deficiency, unspecified; M10.9 Gout, unspecified; R80.9 Proteinuria, unspecified
CPT/HCPCS: 36415; 80048; 81001; 82306; 82570; 82728; 83036; 83516; 83540; 83550; 83735; 83883; 83970; 84100; 84156; 84166; 84550; 85027; 86038; 86160; 86162; 86225; 86255; 86334

== ENCOUNTER → 2017-07-23 | Outpatient (CLI) | payer OTHER, MEDICARE | END | disposition home or self-care (01) | LOC: LABWHC1 17:33 | PROVIDERS: ATTEND Nurse Practitioner Family | DX: E83.42 Hypomagnesemia (principal) | CPT/HCPCS: 36415; 83735 ==

== ENCOUNTER 2017-07-26 13:52 | Emergency (ER) | payer OTHER, MEDICARE ==
--- NOTE | 2017-07-26 14:25 | ED ---
General Adult HPI - General Chief complaint: Recheck/Abnormal Lab/Rx Stated complaint: NEEDS INFUSION, SENT BY Time Seen by Provider: 07/26/17 14:05 Source: patient, RN notes reviewed Mode of arrival: ambulatory Limitations: no limitations - History of Present Illness Initial comments: This a 61-year-old female presents to the emergency department because she had blood drawn in the office they told her her magnesium was 0.8 and they told her to get into the emergency department immediately. Patient states she does not have any symptoms. Patient denies any chest pain palpitations difficulty breathing or shortness of breath. Patient denies any fever chills or cough. Patient denies any abdominal pain patient denies any recent nausea vomiting diarrhea. Patient states she does take Protonix and she has been on it twice a day. Patient also takes magnesium supplements. Patient denies any lightheadedness or dizziness. Patient has no ileostomy - Related Data Home Medications Medication Instructions Recorded Confirmed Linagliptin [Tradjenta] 5 mg PO DAILY 07/11/16 07/26/17 Codeine Sulfate 60 mg PO HS 06/11/17 07/26/17 Mirtazapine [Remeron] 15 mg PO HS 06/11/17 07/26/17 predniSONE 20 mg PO DAILY 06/11/17 07/26/17 Magnesium Gluconate [Magonate] 1,000 mg PO DAILY 07/26/17 07/26/17 Sertraline HCl [Zoloft] 100 mg PO DAILY 07/26/17 07/26/17 Previous Rx's Medication Instructions Recorded ALPRAZolam [Xanax] 0.5 mg PO HS PRN #30 tab 05/31/17 Pantoprazole [Protonix] 40 mg PO BID tablet. 05/31/17 Allergies Allergy/AdvReac Type Severity Reaction Status Date / Time adhesive tape Allergy Severe Rash/Hives/Skin Verified 07/26/17 14:52 Peeling Quinolones Allergy Severe Anaphylaxis Verified 07/26/17 14:52 /Swelling levofloxacin [From Levaquin] Allergy Swelling Verified 07/26/17 14:52 acetaminophen [From Tylenol] AdvReac Severe Liver Verified 07/26/17 14:52 Damage Iodinated Contrast- Oral and AdvReac Severe Chest Pain Verified 07/26/17 14:52 IV Dye [Iodinated Contrast Media - IV Dye] NSAIDS (Non-Steroidal AdvReac Severe GI Verified 07/26/17 14:52 Anti-Inflamma Bleeding/Liver Damage warfarin [From Coumadin] AdvReac Severe Abdominal Verified 07/26/17 14:52 Pain Review of Systems ROS Statement: Those systems with pertinent positive or pertinent negative responses have been documented in the HPI. ROS Other: All systems not noted in ROS Statement are negative. Past Medical History Past Medical History: Diabetes Mellitus, GERD/Reflux, Liver Disease, Osteoarthritis (OA) Additional Past Medical History / Comment(s): crohns, hx. hep c-currently in remission, past hx. sepsis & ards 2007, has ileostomy, hx. kidney stones, hx. of infection in hip-was on antibiotics, has spacer in, hx. anemia related to intermittent bleeding from stoma, has past hx. elevated heart rate, states is related to when she is anemic,pressure sore not open (to lt great toe) sees dr villafuerte, uti low platelets septicemia per pt History of Any Multi-Drug Resistant Organisms: MRSA Date of last positivie culture/infection: 04/25/16 MDRO Source:: Blood & Right Hip Past Surgical History: Appendectomy, Bowel Resection, Cholecystectomy, Hernia Repair, Hysterectomy, Tubal Ligation Additional Past Surgical History / Comment(s): ileostomy 2009 WITH 3-4 RE- SUTURING EPISODES RELATED TO BLEEDING, ileoscopy w/argon gas coagulation of stoma, 10-22-16 revison rt toal hip arthroplasty Past Anesthesia/Blood Transfusion Reactions: No Reported Reaction Past Psychological History: Anxiety Smoking Status: Former smoker Past Alcohol Use History: None Reported Past Drug Use History: None Reported - Past Family History Mother Family Medical History: CVA/TIA, Diabetes Mellitus Additional Family Medical History / Comment(s): Mother at age 88 from CVA. Sister(s) Additional Family Medical History / Comment(s): Patient has 3 sisters with no major medical problems. Patient does not have any brothers. Patient has 2 sons with no major medical problems. Father Family Medical History: Cancer Additional Family Medical History / Comment(s): MOTHER- DIABETES General Exam - General Exam Comments Initial Comments: GENERAL: Patient is well-developed and well-nourished. Patient is nontoxic and well- hydrated and is in no acute distress. ENT: Neck is soft and supple. No significant lymphadenopathy is noted. Oropharynx is clear. Moist mucous membranes. EYES: The sclera were anicteric and conjunctiva were pink and moist. Extraocular movements were intact and pupils were equal round and reactive to light. Eyelids were unremarkable. PULMONARY: Unlabored respirations. Good breath sounds bilaterally. No audible rales rhonchi or wheezing was noted. CARDIOVASCULAR: There is a regular rate and rhythm without any murmurs gallops or rubs. ABDOMEN: Soft and nontender with normal bowel sounds. No palpable organomegaly was noted. There is no palpable pulsatile mass. Patient's ileostomy SKIN: Skin is clear with no lesions or rashes and otherwise unremarkable. NEUROLOGIC: Patient is alert and oriented x3. Cranial nerves II through XII are grossly intact. Motor and sensory are also intact. Normal speech, volume and content. Symmetrical smile. MUSCULOSKELETAL: Normal extremities with adequate strength and full range of motion. No lower extremity swelling or edema. No calf tenderness. LYMPHATICS: No significant lymphadenopathy is noted PSYCHIATRIC: Normal psychiatric evaluation. Limitations: no limitations Course Vital Signs 07/26/17 07/26/17 14:05 16:01 Temperature 98.7 F Pulse Rate 82 65 Respiratory 18 16 Rate Blood Pressure 178/77 170/80 O2 Sat by Pulse 99 100 Oximetry Medical Decision Making - Medical Decision Making Patient's labs got back in the showed a magnesium of 1.0. I ordered 2 g of magnesium. Patient has appointment was to follow-up with her primary. - Lab Data Result diagrams: 07/26/17 14:35 07/26/17 14:35 Lab Results 07/26/17 07/26/17 Range/Units 14:35 14:35 WBC 4.9 (3.8-10.6) k/uL RBC 3.44 L (3.80-5.40) m/uL Hgb 10.9 L (11.4-16.0) gm/dL Hct 35.1 (34.0-46.0) % MCV 101.9 H (80.0-100.0) fL MCH 31.6 (25.0-35.0) pg MCHC 31.0 (31.0-37.0) g/dL RDW 14.9 (11.5-15.5) % Plt Count 78 L (150-450) k/uL Neutrophils % 76 % Lymphocytes % 15 % Monocytes % 7 % Eosinophils % 1 % Basophils % 0 % Neutrophils # 3.7 (1.3-7.7) k/uL Lymphocytes # 0.7 L (1.0-4.8) k/uL Monocytes # 0.3 (0-1.0) k/uL Eosinophils # 0.0 (0-0.7) k/uL Basophils # 0.0 (0-0.2) k/uL Hypochromasia Slight Macrocytosis Slight Sodium 143 (137-145) mmol/L Potassium 3.8 (3.5-5.1) mmol/L Chloride 107 (98-107) mmol/L Carbon Dioxide 28 (22-30) mmol/L Anion Gap 8 mmol/L BUN 19 H (7-17) mg/dL Creatinine 1.10 H (0.52-1.04) mg/dL Est GFR (MDRD) Af Amer >60 (>60 ml/min/1.73 sqM) Est GFR (MDRD) Non-Af 51 (>60 ml/min/1.73 sqM) Glucose 151 H (74-99) mg/dL Calcium 9.3 (8.4-10.2) mg/dL Magnesium 1.0 L* (1.6-2.3) mg/dL Total Bilirubin 0.3 (0.2-1.3) mg/dL AST 36 (14-36) U/L ALT 39 (9-52) U/L Alkaline Phosphatase 41 (38-126) U/L Total Protein 5.9 L (6.3-8.2) g/dL Albumin 3.4 L (3.5-5.0) g/dL Disposition Clinical Impression: Hypomagnesemia Disposition: HOME SELF-CARE Condition: Good Instructions: Hypomagnesemia (ED) Additional Instructions: Patient should stop the Protonix and switched to Pepcid twice a day. Patient should follow-up with a primary to get a new mag level redrawn. Referrals: Fab Recinos DO [Primary Care Provider] - 1-2 days Time of Disposition: 16:16
[2017-07-26 14:47] LABS: Basophils % (A) 0 %; Eosinophils % (A) 1 %; HCT 35.1 % (34.0-46.0); HGB 10.9 gm/dL (11.4-16.0); Hypochromasia Slight; Lymphocytes # (A) 0.7 k/uL (1.0-4.8); Lymphocytes % (A) 15 %; MCH 31.6 pg (25.0-35.0); MCV 101.9 fL (80.0-100.0); Macrocytosis Slight; Mean Platelet Volume 7.8; Monocytes # (A) 0.3 k/uL (0-1.0); Monocytes % (A) 7 %; Neutrophils # (A) 3.7 k/uL (1.3-7.7); Neutrophils % (A) 76 %; RBC 3.44 m/uL (3.80-5.40); RDW 14.9 % (11.5-15.5); WBC 4.9 k/uL (3.8-10.6)
[2017-07-26 14:57] LABS: Platelet Count 78 k/uL (150-450)
[2017-07-26 14:58] LABS: ALT 39 U/L (9-52); AST 36 U/L (14-36); Albumin 3.4 g/dL (3.5-5.0); Alkaline Phosphatase 41 U/L (38-126); Anion Gap 8 mmol/L; Blood Urea Nitrogen 19 mg/dL (7-17); Calcium 9.3 mg/dL (8.4-10.2); Carbon Dioxide 28 mmol/L (22-30); Chloride 107 mmol/L (98-107); Glucose 151 mg/dL (74-99); Potassium 3.8 mmol/L (3.5-5.1); Sodium 143 mmol/L (137-145); Total Bilirubin 0.3 mg/dL (0.2-1.3); Total Protein 5.9 g/dL (6.3-8.2)
[2017-07-26 16:01] VITALS: RESP 16
[2017-07-26] MEDS: MAGNESIUM SULFATE-D5W PMX 1 GM in DEXTROSE/WATER 1 100ML.BAG IVPB SCH ×2 (16:04→17:05)
[2017-07-26 18:08] VITALS: BP 155/75; PULSE 62; TEMP 97.4
== END 2017-07-26 18:17 | disposition home or self-care (01) ==
LOC: EC 13:52
DX: E83.42 Hypomagnesemia (principal); E11.9 Type 2 diabetes mellitus without complications; M19.90 Unspecified osteoarthritis, unspecified site; F41.9 Anxiety disorder, unspecified; Z87.891 Personal history of nicotine dependence; Z79.52 Long term (current) use of systemic steroids; Z79.84 Long term (current) use of oral hypoglycemic drugs; Z79.891 Long term (current) use of opiate analgesic; Z79.899 Other long term (current) drug therapy; Z88.1 Allergy status to other antibiotic agents; Z88.6 Allergy status to analgesic agent; Z88.8 Allergy status to other drugs, medicaments and biological substances; Z91.041 Radiographic dye allergy status; Z91.09 Other allergy status, other than to drugs and biological substances; Z86.14 Personal history of Methicillin resistant Staphylococcus aureus infection; Z93.2 Ileostomy status
CPT/HCPCS: 36415; 80053; 83735; 85025; 99283; 96365; 96366; J3475

== ENCOUNTER → 2017-07-30 | Outpatient (CLI) | payer OTHER, MEDICARE ==
--- NOTE | 2017-07-31 07:45 | US ---
EXAMINATION TYPE: US kidneys/renal and bladder DATE OF EXAM: 07/30/2017 COMPARISON: US dated 06/11/2017 CLINICAL HISTORY: N17.9 Acute Kidney Injury. EXAM MEASUREMENTS: Right Kidney: 11.3 x 4.3 x 4.5 cm Left Kidney: 11.3 x 3.2 x 4.0 cm Right Kidney: No hydronephrosis or masses seen Left Kidney: No hydronephrosis or masses seen . The previously seen anechoic left midpole renal cyst is not visualized on today's examination. Bladder: not distended, patient not directed to fill bladder for exam Incidental finding of splenomegaly as the spleen measures 16 cm in longitudinal dimension. There is no evidence for hydronephrosis at this point in time. No nephrolithiasis is seen. No gemran s are identified. The urinary bladder is anechoic. Bilateral ureteral jets are seen. IMPRESSION: 1. No evidence of hydronephrosis or nephrolithiasis. 2. The previously seen left renal subcentimeter cyst on the exam of 06/11/2017 is not visualized on t adam's examination. 3. Incidentally noted splenomegaly.
== END ==
LOC: RADUSWWP 16:26
PROVIDERS: ATTEND Internal Medicine Nephrology
DX: N17.9 Acute kidney failure, unspecified (principal); R16.1 Splenomegaly, not elsewhere classified
CPT/HCPCS: 76770

== ENCOUNTER → 2017-08-06 | Outpatient (CLI) | payer OTHER, MEDICARE ==
[2017-08-06 16:50] LABS: HCT 37.2 % (34.0-46.0); HGB 11.4 gm/dL (11.4-16.0); Hypochromasia Marked; MCH 32.2 pg (25.0-35.0); MCHC 30.5 g/dL (31.0-37.0); MCV 105.7 fL (80.0-100.0); Macrocytosis Moderate; Mean Platelet Volume 7.6; RBC 3.52 m/uL (3.80-5.40); RDW 14.4 % (11.5-15.5); WBC 5.4 k/uL (3.8-10.6)
[2017-08-06 16:52] LABS: Platelet Count 81 k/uL (150-450)
[2017-08-06 17:15] LABS: Calcium 9.1 mg/dL (8.4-10.2); Magnesium 1.5 mg/dL (1.6-2.3); Phosphorus 3.5 mg/dL (2.5-4.5); Potassium 5.3 mmol/L (3.5-5.1)
[2017-08-06 17:43] LABS: Creatinine,Urine Random 131.2 mg/dL
[2017-08-06 18:01] LABS: Appearance,Urine Clear (Clear); Bacteria,Urine Rare /hpf; Bilirubin,Urine Negative (Negative); Blood,Urine Small (Negative); Budding Yeast,Urine Occasional /hpf; Color,Urine Yellow; Glucose,Urine (UA) Negative (Negative); Ketones,Urine Negative (Negative); Leukocyte Esterase,Urine Small (Negative); Mucus,Urine Rare /hpf; Nitrite,Urine Negative (Negative); PH, Urine 6.5 (5.0-8.0); Protein,Urine 2+ (Negative); RBC,Urine 4 /hpf (0-5); Specific Gravity,Urine 1.019 (1.001-1.035); Squamous Epithelial Cell,Urine <1 /hpf (0-4); Urobilinogen,Urine <2.0 mg/dL (<2.0); WBC,Urine 14 /hpf (0-5)
[2017-08-07 00:57] LABS: Iron Saturation 22.06 (12.00-45.00)
[2017-08-07 01:31] LABS: Vitamin D 25 Hydroxy 6.7 ng/mL (30.0-100.0)
[2017-08-07 01:34] LABS: Anti-DNA, DS unit <1.0 IU/mL; DNA Double-Stranded NEGATIVE (NEGATIVE)
[2017-08-07 03:55] LABS: Parathyroid Hormone Intact 57.7 pg/mL (14.0-72.0)
[2017-08-07 14:39] LABS: C-ANCA <1:20 Titer (<1:20); P-ANCA <1:20 Titer (<1:20)
== END | disposition home or self-care (01) ==
LOC: LABWHC1 15:35
PROVIDERS: ATTEND Nurse Practitioner Family
DX: R80.9 Proteinuria, unspecified (principal); N17.9 Acute kidney failure, unspecified; E11.9 Type 2 diabetes mellitus without complications; E83.42 Hypomagnesemia; N39.0 Urinary tract infection, site not specified
CPT/HCPCS: 36415; 80048; 81001; 82306; 82570; 82728; 83036; 83516; 83540; 83550; 83735; 83883; 83970; 84100; 84156; 84166; 84550; 85027; 86038; 86160; 86162; 86225; 86255; 86334; 87086

== ENCOUNTER → 2017-09-05 | Outpatient (CLI) | payer OTHER, MEDICARE ==
[2017-09-05 17:28] LABS: Anisocytosis Moderate; HCT 24.1 % (34.0-46.0); Hypochromasia Moderate; MCH 33.5 pg (25.0-35.0); MCHC 31.3 g/dL (31.0-37.0); MCV 107.2 fL (80.0-100.0); Macrocytosis Marked; Mean Platelet Volume 8.3; Poikilocytosis Moderate; RBC 2.24 m/uL (3.80-5.40); RDW 21.2 % (11.5-15.5)
[2017-09-05 17:36] LABS: HGB 7.5 gm/dL (11.4-16.0); Platelet Count 134 k/uL (150-450)
[2017-09-05 18:09] LABS: Band Neutrophils % 1 %; Lymphocytes # (M) 0.67 k/uL (1.0-4.8); Metamyelocytes # (M) 0.15 k/uL (0); Metamyelocytes % 2 %; Monocytes # (M) 0.44 k/uL (0-1.0); Neutrophils % (M) 83 %; Nucleated Red Blood Cells 2 /100 WBC (0-0); Polychromasia Present; Total Cells Counted 200; WBC 7.4 k/uL (3.8-10.6)
== END | disposition home or self-care (01) ==
LOC: LABWHC1 16:39
PROVIDERS: ATTEND Surgery
DX: D64.9 Anemia, unspecified (principal)
CPT/HCPCS: 36415; 85025

== ENCOUNTER → 2017-10-01 | Outpatient (CLI) | payer OTHER, MEDICARE ==
[2017-10-01 13:16] LABS: T4, Free (Free Thyroxine) 0.64 ng/dL (0.78-2.19)
[2017-10-01 19:54] LABS: Thyroid Peroxidase Antibodies <28.0 U/mL (0.0-60.0)
== END | disposition home or self-care (01) ==
LOC: LABWHC1 11:42
PROVIDERS: ATTEND Internal Medicine Endocrinology, Diabetes & Metabolism
DX: R94.6 Abnormal results of thyroid function studies (principal)
CPT/HCPCS: 36415; 84439; 84443; 84480; 86376

== ENCOUNTER → 2017-11-25 | Outpatient (CLI) | payer OTHER, MEDICARE ==
[2017-11-25 16:00] LABS: T4, Free (Free Thyroxine) 0.64 ng/dL (0.78-2.19)
[2017-11-26 02:24] LABS: Thyroid Peroxidase Antibodies <28.0 U/mL (0.0-60.0)
== END | disposition home or self-care (01) ==
LOC: LABWHC1 14:28
PROVIDERS: ATTEND Internal Medicine Endocrinology, Diabetes & Metabolism
DX: R94.6 Abnormal results of thyroid function studies (principal)
CPT/HCPCS: 36415; 84439; 84443; 84480; 86376

== ENCOUNTER → 2017-12-27 | Outpatient (CLI) | payer OTHER, MEDICARE ==
[2017-12-27 16:09] LABS: Basophils % (A) 0 %; Eosinophils % (A) 1 %; HCT 33.1 % (34.0-46.0); HGB 10.2 gm/dL (11.4-16.0); Hypochromasia Marked; Lymphocytes # (A) 0.5 k/uL (1.0-4.8); Lymphocytes % (A) 10 %; MCH 32.7 pg (25.0-35.0); MCHC 30.7 g/dL (31.0-37.0); MCV 106.5 fL (80.0-100.0); Macrocytosis Moderate; Mean Platelet Volume 7.5; Monocytes # (A) 0.2 k/uL (0-1.0); Monocytes % (A) 4 %; Neutrophils % (A) 84 %; RBC 3.11 m/uL (3.80-5.40); RDW 15.2 % (11.5-15.5); WBC 4.8 k/uL (3.8-10.6)
[2017-12-27 16:10] LABS: Appearance,Urine Clear (Clear); Bilirubin,Urine Negative (Negative); Blood,Urine Negative (Negative); Color,Urine Yellow; Glucose,Urine (UA) Negative (Negative); Hyaline Casts,Urine 4 /lpf (0-2); Ketones,Urine Negative (Negative); Leukocyte Esterase,Urine Moderate (Negative); Mucus,Urine Rare /hpf; Nitrite,Urine Negative (Negative); PH, Urine 6.5 (5.0-8.0); Protein,Urine 3+ (Negative); RBC,Urine 8 /hpf (0-5); Specific Gravity,Urine 1.016 (1.001-1.035); Squamous Epithelial Cell,Urine <1 /hpf (0-4); Urobilinogen,Urine <2.0 mg/dL (<2.0); WBC,Urine 50 /hpf (0-5)
[2017-12-27 16:18] LABS: Calcium 9.1 mg/dL (8.4-10.2); Magnesium 1.7 mg/dL (1.6-2.3); Phosphorus 3.3 mg/dL (2.5-4.5); Potassium 4.8 mmol/L (3.5-5.1)
[2017-12-27 16:28] LABS: Platelet Count 98 k/uL (150-450)
[2017-12-28 00:29] LABS: Iron Saturation 15.5 (12.00-45.00)
[2017-12-28 00:37] LABS: Vitamin D 25 Hydroxy 15.9 ng/mL (30.0-100.0)
[2017-12-28 00:49] LABS: Parathyroid Hormone Intact 131.5 pg/mL (14.0-72.0)
[2017-12-28 02:50] LABS: Hemoglobin A1C 4.4 % (4.0-6.0)
== END | disposition home or self-care (01) ==
LOC: LABWHC1 15:48
PROVIDERS: ATTEND Nurse Practitioner Family
DX: E55.9 Vitamin D deficiency, unspecified (principal); E11.9 Type 2 diabetes mellitus without complications; N25.81 Secondary hyperparathyroidism of renal origin; D64.9 Anemia, unspecified; N39.0 Urinary tract infection, site not specified; M10.9 Gout, unspecified; N17.9 Acute kidney failure, unspecified
CPT/HCPCS: 36415; 80048; 81001; 82306; 82728; 83036; 83540; 83550; 83735; 83970; 84100; 84550; 85025

== ENCOUNTER 2018-01-29 16:14 | Emergency (ER) | payer OTHER, MEDICARE ==
[2018-01-29 16:58] VITALS: BP 159/79; PULSE 85; RESP 18; TEMP 97.7
--- NOTE | 2018-01-29 18:04 | XR ---
EXAMINATION TYPE: XR chest 2V DATE OF EXAM: 01/29/2018 COMPARISON: EXAMINATION TYPE: XR chest 2V DATE OF EXAM: 01/29/2018 COMPARISON: 06/02/2017 HISTORY: Rib pain TECHNIQUE: 2 views FINDINGS: There is no heart failure. There is mild linear density at the lung bases. There is slight coarsening of interstitial markings. Heart size is normal. There is 20% wedging of T7 vertebra. IMPRESSION: Pulmonary fibrotic changes. Subsegmental atelectasis at the lung bases. There is clearing of some infiltrate at the left lung base compared to old exam.
--- NOTE | 2018-01-29 18:35 | ED ---
Fall HPI - General Chief Complaint: Fall Stated Complaint: left rib injury (fell over dog) Time Seen by Provider: 01/29/18 17:11 Source: patient Mode of arrival: ambulatory - History of Present Illness Initial Comments: This a 62-year-old female with past medical history of Crohn's disease and renal disease who presents today for chief complaint left-sided rib pain times one day. Patient states that yesterday evening around 9 PM she got up to use the restroom when she tripped over their family dog landing onto her left side. Patient denies any difficulty breathing, chest pain or shortness of breath since. However she noticed pain at the site where she fell with deep inspiration and tenderness to palpation over that area. Patient took Tylenol for the pain, and applied heat to the area. Patient was worried about a rib fracture, so she presents emergency department this evening to make sure that there is no damage to her lungs to the rib fracture. Upon presentation. Patient denied any injury to extremities, hitting her head, loss consciousness, chest pain at rest, substernal chest pain, chest pain with ambulation, shortness of breath, difficulty breathing or any other symptoms. Patient's vital signs stable with O2 saturation 96% on room air. Patient denies any recent fever, chills, shortness of breath, chest pain, back pain, abdominal pain , nausea or vomiting, numbness or tingling, dysuria or hematuria, constipation or diarrhea, headaches or visual changes, or any other complaints. - Related Data Home Medications Medication Instructions Recorded Confirmed Linagliptin [Tradjenta] 5 mg PO DAILY 07/11/16 01/29/18 Mirtazapine [Remeron] 15 mg PO HS 06/11/17 01/29/18 predniSONE 20 mg PO DAILY 06/11/17 01/29/18 Sertraline HCl [Zoloft] 100 mg PO DAILY 07/26/17 01/29/18 ALPRAZolam [Xanax] 1 mg PO TID PRN 01/29/18 01/29/18 Diphenox-Atrop 2.5-0.025 mg 2 tab PO QID PRN 01/29/18 01/29/18 [Lomotil] Ergocalciferol (Vitamin D2) 50,000 unit PO Q7DAYS 01/29/18 01/29/18 [Vitamin D2] Levothyroxine Sodium [Synthroid] 25 mcg PO DAILY 01/29/18 01/29/18 Lisinopril [Zestril] 10 mg PO DAILY 01/29/18 01/29/18 Allergies Allergy/AdvReac Type Severity Reaction Status Date / Time adhesive tape Allergy Severe Rash/Hives/Skin Verified 01/29/18 17:27 Peeling Quinolones Allergy Severe Anaphylaxis Verified 01/29/18 17:27 /Swelling levofloxacin [From Levaquin] Allergy Swelling Verified 01/29/18 17:27 Iodinated Contrast- Oral and AdvReac Severe Chest Pain Verified 01/29/18 17:27 IV Dye [Iodinated Contrast Media - IV Dye] NSAIDS (Non-Steroidal AdvReac Severe GI Verified 01/29/18 17:27 Anti-Inflamma Bleeding/Liver Damage warfarin [From Coumadin] AdvReac Severe Abdominal Verified 01/29/18 17:27 Pain Review of Systems ROS Statement: Those systems with pertinent positive or pertinent negative responses have been documented in the HPI. ROS Other: All systems not noted in ROS Statement are negative. Past Medical History Past Medical History: Diabetes Mellitus, GERD/Reflux, Liver Disease, Osteoarthritis (OA) Additional Past Medical History / Comment(s): crohns, hx. hep c-currently in remission, past hx. sepsis & ards 2007, has ileostomy, hx. kidney stones, hx. of infection in hip-was on antibiotics, has spacer in, hx. anemia related to intermittent bleeding from stoma, has past hx. elevated heart rate, states is related to when she is anemic,pressure sore not open (to lt great toe) sees dr villafuerte, uti low platelets septicemia per pt History of Any Multi-Drug Resistant Organisms: MRSA Date of last positivie culture/infection: 04/25/16 MDRO Source:: Blood & Right Hip Past Surgical History: Appendectomy, Bowel Resection, Cholecystectomy, Hernia Repair, Hysterectomy, Tubal Ligation Additional Past Surgical History / Comment(s): ileostomy 2009 WITH 3-4 RE- SUTURING EPISODES RELATED TO BLEEDING, ileoscopy w/argon gas coagulation of stoma, 10-22-16 revison rt toal hip arthroplasty Past Anesthesia/Blood Transfusion Reactions: No Reported Reaction Past Psychological History: Anxiety Smoking Status: Former smoker Past Alcohol Use History: None Reported Past Drug Use History: None Reported - Past Family History Mother Family Medical History: CVA/TIA, Diabetes Mellitus Additional Family Medical History / Comment(s): Mother at age 88 from CVA. Sister(s) Additional Family Medical History / Comment(s): Patient has 3 sisters with no major medical problems. Patient does not have any brothers. Patient has 2 sons with no major medical problems. Father Family Medical History: Cancer Additional Family Medical History / Comment(s): MOTHER- DIABETES General Exam - General Exam Comments Initial Comments: General: The patient is awake and alert, in no distress, and does not appear acutely ill. Eye: Pupils are equal, round and reactive to light, extra-ocular movements are intact. No nystagmus. There is normal conjunctiva bilaterally. No signs of icterus. Ears, nose, mouth and throat: There are moist mucous membranes and no oral lesions. Neck: The neck is supple, there is no tenderness or JVD. Cardiovascular: There is a regular rate and rhythm. No murmur, rub or gallop is appreciated. Breath sounds auscible in all lung castellano. Pain admits to pain in left side at rib #8/9 with deep inspiration. Respiratory: Lungs are clear to auscultation, respirations are non-labored, breath sounds are equal. No wheezes, stridor, rales, or rhonchi. Musculoskeletal: Pt is tender to palpation over rib #8/9 no obvious deformities , no ecchymosis. Normal ROM, no tenderness of UE or LE. Strength 5/5 UE and LE equallty b/l. Sensation intact. Radial pulses equal bilaterally 2+. Neurological: A&O x 3. CN II-XII intact, There are no obvious motor or sensory deficits. Coordination appears grossly intact. Speech is normal. Skin: Skin is warm and dry and no rashes or lesions are noted. Psychiatric: Cooperative, appropriate mood & affect, normal judgment. Limitations: no limitations Course Vital Signs 01/29/18 16:55 Temperature 97.7 F Pulse Rate 85 Respiratory 18 Rate Blood Pressure 159/79 O2 Sat by Pulse 96 Oximetry Medical Decision Making - Medical Decision Making CXR x-ray was obtained revealing no pneumothorax, or obvious rib fracture. Patient was offered an additional x-ray focused on the left rib cage, however she denied stating that she was only worried about a rib breaking and hurting her lungs. At this time we feel patient most has a rib contusion, however we cannot rule out fracture without further imaging. Patient was educated on the healing times of both fractures and contusions of ribs. She was told to return to ER department if she does experience any shortness of breath or difficulty breathing. Patient is instructed to use [id number] Tylenol or ibuprofen for relief as needed and follow-up with her primary care 1-2 days. Patient agreed the impression and plan. Case is discussed in detail Dr. Christie who agrees with the impression and plan as well. Patient was discharged in stable condition. Vital signs stable. Disposition Clinical Impression: Rib pain on left side Disposition: HOME SELF-CARE Condition: Good Instructions: Rib Contusion (ED) Additional Instructions: Please use over the counter tylenol as discussed. Please follow-up with family doctor in the next 2 days of symptoms have not improved. Please return to emergency room if the symptoms increase or worsen or for any other concerns. Is patient prescribed a controlled substance at d/c from ED?: No Referrals: Fab Recinos DO [Primary Care Provider] - 1-2 days Time of Disposition: 18:35
== END 2018-01-29 18:40 | disposition home or self-care (01) ==
LOC: EC 16:14
DX: R07.81 Pleurodynia (principal); E11.9 Type 2 diabetes mellitus without complications; M19.90 Unspecified osteoarthritis, unspecified site; F41.9 Anxiety disorder, unspecified; Z87.891 Personal history of nicotine dependence; Z79.52 Long term (current) use of systemic steroids; Z79.899 Other long term (current) drug therapy; Z88.8 Allergy status to other drugs, medicaments and biological substances; Z88.1 Allergy status to other antibiotic agents; Z91.041 Radiographic dye allergy status; Z91.048 Other nonmedicinal substance allergy status; Z88.6 Allergy status to analgesic agent; Z86.14 Personal history of Methicillin resistant Staphylococcus aureus infection
CPT/HCPCS: 71046; 99283

== ENCOUNTER 2018-02-08 15:49 | Emergency (ER) | payer OTHER, MEDICARE ==
[2018-02-08 15:56] VITALS: RESP 18
--- NOTE | 2018-02-08 16:42 | ED ---
General Adult HPI - General Chief complaint: Recheck/Abnormal Lab/Rx Stated complaint: Rib pain/chest pain Time Seen by Provider: 02/08/18 16:01 Source: patient, family, RN notes reviewed, old records reviewed Mode of arrival: wheelchair Limitations: no limitations - History of Present Illness Initial comments: Chief complaint and history of present illness this is a 62-year-old female with a significant other. The patient reports she's been having some bleeding from ileostomy but not for the past 2 days. Plus the patient reports he fell approximately 10 days ago on her anterior chest wall. At that time she had chest x-ray which did not demonstrate any fractures. The patient complains discomfort to the area just below the left axilla and again to the sternum. Patient reports a deep breath or coughing causes pain. Slightly decreased when she puts her palm on the sternum. No new injuries. - Related Data Home Medications Medication Instructions Recorded Confirmed Linagliptin [Tradjenta] 5 mg PO DAILY 07/11/16 01/29/18 Mirtazapine [Remeron] 15 mg PO HS 06/11/17 01/29/18 predniSONE 20 mg PO DAILY 06/11/17 01/29/18 Sertraline HCl [Zoloft] 100 mg PO DAILY 07/26/17 01/29/18 ALPRAZolam [Xanax] 1 mg PO TID PRN 01/29/18 01/29/18 Diphenox-Atrop 2.5-0.025 mg 2 tab PO QID PRN 01/29/18 01/29/18 [Lomotil] Ergocalciferol (Vitamin D2) 50,000 unit PO Q7DAYS 01/29/18 01/29/18 [Vitamin D2] Levothyroxine Sodium [Synthroid] 25 mcg PO DAILY 01/29/18 01/29/18 Lisinopril [Zestril] 10 mg PO DAILY 01/29/18 01/29/18 Previous Rx's Medication Instructions Recorded Azithromycin [Zithromax Z-pack] 250 mg PO DIRECTED #6 tab 02/08/18 Allergies Allergy/AdvReac Type Severity Reaction Status Date / Time adhesive tape Allergy Severe Rash/Hives/Skin Verified 02/08/18 15:51 Peeling Quinolones Allergy Severe Anaphylaxis Verified 02/08/18 15:51 /Swelling levofloxacin [From Levaquin] Allergy Swelling Verified 02/08/18 15:51 Iodinated Contrast- Oral and AdvReac Severe Chest Pain Verified 02/08/18 15:51 IV Dye [Iodinated Contrast Media - IV Dye] NSAIDS (Non-Steroidal AdvReac Severe GI Verified 02/08/18 15:51 Anti-Inflamma Bleeding/Liver Damage warfarin [From Coumadin] AdvReac Severe Abdominal Verified 02/08/18 15:51 Pain Review of Systems ROS Statement: Those systems with pertinent positive or pertinent negative responses have been documented in the HPI. Review of systems; no complaint of headache no significant shortness of breath though when she coughs she has pain to her sternum she did have greenish phlegm. No complaint of shortness of breath. No complaint of abdominal pain. She does have bleeding per ileostomy which problem in the past. She reports this usually happens in the evening. She says that been no bleeding for the past 2 days. Does bleedBLOOD pressure over the ileostomy stops. She does get her CBC done monthly. This be repeated today. No neuro deficits. Past medical problems significant for non-insulin diabetes mellitus, GERD, she was treated and cured of hep C, osteoarthritis Crohn's. The patient's surgeries right hip surgery, appendectomy, bowel resection with ileostomy, cholecystectomy, hernia repair, hysterectomy appreciated by of tubal ligation. Family history father had prostate cancer. Patient has ALLERGIES to adhesive tape, quinolones specifically Levaquin, iodine contrast both oral and IV. Patient denies smoking denies drinking. ROS Other: All systems not noted in ROS Statement are negative. Past Medical History Past Medical History: Diabetes Mellitus, GERD/Reflux, Liver Disease, Osteoarthritis (OA) Additional Past Medical History / Comment(s): crohns, hx. hep c-currently in remission, past hx. sepsis & ards 2007, has ileostomy, hx. kidney stones, hx. of infection in hip-was on antibiotics, has spacer in, hx. anemia related to intermittent bleeding from stoma, has past hx. elevated heart rate, states is related to when she is anemic,pressure sore not open (to lt great toe) sees dr villafuerte, uti low platelets septicemia per pt History of Any Multi-Drug Resistant Organisms: MRSA Date of last positivie culture/infection: 04/25/16 MDRO Source:: Blood & Right Hip Past Surgical History: Appendectomy, Bowel Resection, Cholecystectomy, Hernia Repair, Hysterectomy, Tubal Ligation Additional Past Surgical History / Comment(s): ileostomy 2009 WITH 3-4 RE- SUTURING EPISODES RELATED TO BLEEDING, ileoscopy w/argon gas coagulation of stoma, 10-22-16 revison rt toal hip arthroplasty Past Anesthesia/Blood Transfusion Reactions: No Reported Reaction Past Psychological History: Anxiety Smoking Status: Former smoker Past Alcohol Use History: None Reported Past Drug Use History: None Reported - Past Family History Mother Family Medical History: CVA/TIA, Diabetes Mellitus Additional Family Medical History / Comment(s): Mother at age 88 from CVA. Sister(s) Additional Family Medical History / Comment(s): Patient has 3 sisters with no major medical problems. Patient does not have any brothers. Patient has 2 sons with no major medical problems. Father Family Medical History: Cancer Additional Family Medical History / Comment(s): MOTHER- DIABETES General Exam - General Exam Comments Initial Comments: General: The patient is awake and alert, here because of persistent pain to her sternum. She fell partially 10 days ago. At that time x-ray was negative. She also reports when she coughs increases pain. Able to Control the Pain Slightly by Putting Pressure over the Sternum. Also Had a Green Phlegm Today. Vital Signs Shows a Temperature 98.6 Pulse 100 Respiratory Rate 18 Pulse Ox 99% Room Air Blood Pressure 145/76. Eye: Pupils are equal, round and reactive to light, extra-ocular movements are intact ; there is normal conjunctiva bilaterally. No signs of icterus. Ears, nose, mouth and throat: There are moist mucous membranes and no oral lesions. Neck: The neck is supple, there is no tenderness . Cardiovascular: Tachycardic heart rate 100. No murmur. Respiratory: Lungs are clear to auscultation, pain to her sternum with coughing or deep palpation. Recent fall on her anterior chest wall. Gastrointestinal: Patient has an ileostomy. No blood noted for 2 days. Back: No back pain Musculoskeletal: Normal ROM, no tenderness, There is no pedal edema. There is no calf tenderness or swelling. Neurological: No complaint of any neuro deficits Skin: Skin is warm and dry and no rashes or lesions are noted. Psychiatric: Cooperative, Limitations: no limitations Course Vital Signs 02/08/18 15:51 Temperature 98.6 F Pulse Rate 100 Respiratory 18 Rate Blood Pressure 145/76 O2 Sat by Pulse 99 Oximetry Medical Decision Making - Medical Decision Making Medical decision making; this is a 62-year-old female here with his significant other. The patient fell approximately 10 days ago on her anterior chest wall. Patient reports soon after she fell she has some discomfort to her left rib cage but he got better. Today she is here because of discomfort to her sternum which is continued to hurt. Also a greenish productive cough. The patient has a history of Crohn's and has an ileostomy. She reports several times during the evening she had bleeding from the ileostomy. Over the last 2 nights she has not had any bleeding. She states that when she does bleed she is able to put pressure on it stopped almost immediately. The patient's last hemoglobin was done on December 27 it was 10 with a hematocrit of 33. Today her hemoglobin dropped 1 g 9 and her hematocrit 27. Patient has increased her iron and increasing her fluids. Chest x-ray and left rib series was done and reviewed by radiologist. His findings include chronic parenchymal changes with persistent left basilar linear scarring and/or atelectasis. No new suspicious focal airspace opacity, pleural effusion, or pneumothorax seen. Cannot exclude calcified pleural plaque right lung base. No plaque noted on CT abdomen 05/23/2017. Suspect focal atelectasis and/or scarring. Cardiac silhouette size mildly enlarged. Underlying slight scoliosis noted. Cholecystectomy clips are redemonstrated. Demineralization is present making evaluation suboptimal. Dedicated images left -sided ribs showed acute minimally displaced fractures of the suspected anterolateral fourth through seventh ribs. Impression; cardiomegaly with left basilar linear scarring and/or atelectasis redemonstrated. Acute minimally displaced fractures involving anterolateral left fourth through seventh ribs felt present. As read by Dr. jo. The patient be placed on a Zithromax and for 5 days for her bronchitis. X-ray results lab results shared with patient and significant other. The patient will continue with her iron. Increase her fluids. Follow up with her family physician. Advised to continue with analgesics for discomfort. - Lab Data Result diagrams: 02/08/18 16:38 Lab Results 02/08/18 Range/Units 16:38 WBC 9.2 (3.8-10.6) k/uL RBC 2.71 L (3.80-5.40) m/uL Hgb 9.0 L D (11.4-16.0) gm/dL Hct 27.6 L (34.0-46.0) % MCV 101.9 H (80.0-100.0) fL MCH 33.1 (25.0-35.0) pg MCHC 32.5 (31.0-37.0) g/dL RDW 16.8 H (11.5-15.5) % Plt Count 137 L D (150-450) k/uL Neutrophils % 89 % Lymphocytes % 7 % Monocytes % 3 % Eosinophils % 1 % Basophils % 0 % Neutrophils # 8.1 H (1.3-7.7) k/uL Lymphocytes # 0.6 L (1.0-4.8) k/uL Monocytes # 0.3 (0-1.0) k/uL Eosinophils # 0.1 (0-0.7) k/uL Basophils # 0.0 (0-0.2) k/uL Hypochromasia Slight Anisocytosis Slight Macrocytosis Slight Disposition Clinical Impression: Rib fractures, History of Crohn's disease, Bronchitis Disposition: HOME SELF-CARE Condition: Fair Instructions: Rib Fracture (ED), Crohn Disease (ED) Additional Instructions: Continue with increase fluids. Use Tylenol or ibuprofen for pain. Place a pillow or hand over her sternum when you take a deep breath or cough. Take Z-Michael as directed for productive green cough. Continue with iron and increase fluids. 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 Return emergency room with a significant changes. Prescriptions: Azithromycin [Zithromax Z-pack] 250 mg PO DIRECTED #6 tab Is patient prescribed a controlled substance at d/c from ED?: No Referrals: Fab Recinos DO [Primary Care Provider] - 1-2 days Time of Disposition: 18:06
[2018-02-08 16:45] LABS: Anisocytosis Slight; Basophils % (A) 0 %; Eosinophils # (A) 0.1 k/uL (0-0.7); Eosinophils % (A) 1 %; HCT 27.6 % (34.0-46.0); Hypochromasia Slight; Lymphocytes # (A) 0.6 k/uL (1.0-4.8); Lymphocytes % (A) 7 %; MCH 33.1 pg (25.0-35.0); MCHC 32.5 g/dL (31.0-37.0); MCV 101.9 fL (80.0-100.0); Macrocytosis Slight; Mean Platelet Volume 7.7; Monocytes # (A) 0.3 k/uL (0-1.0); Monocytes % (A) 3 %; Neutrophils # (A) 8.1 k/uL (1.3-7.7); Neutrophils % (A) 89 %; RBC 2.71 m/uL (3.80-5.40); RDW 16.8 % (11.5-15.5); WBC 9.2 k/uL (3.8-10.6)
[2018-02-08 16:47] LABS: Platelet Count 137 k/uL (150-450)
--- NOTE | 2018-02-08 17:38 | XR ---
EXAMINATION TYPE: XR ribs LT w pa chest xray DATE OF EXAM: 02/08/2018 CLINICAL HISTORY: Fall injury 10 days ago with chest and left-sided rib pain. TECHNIQUE: Single frontal view of the chest is obtained. A frontal and oblique images of the left-janet ed ribs are acquired. COMPARISON: Chest x-ray from 10 days ago. FINDINGS: There is chronic parenchymal change with persistent left basilar linear scarring and/or at electasis. No new suspicious focal airspace opacity, pleural effusion, or pneumothorax is seen. Canno t exclude calcified pleural plaque right lung base . No plaque noted on CT abdomen May 23, 2017. Suspect focal atelectasis and/or scarring. The cardiac silhouette size remains mildly enlarged. Unde rlying slight scoliosis is noted. Cholecystectomy clips are redemonstrated. Demineralization is present making evaluation suboptimal. Dedicated images of left-sided ribs show [place] minimally displaced fractures of the suspected anterolateral fourth through seventh ribs. IMPRESSION: 1. Cardiomegaly with by basilar linear scarring and/or atelectasis redemonstrated. 2. Acute minimally displaced fractures involving anterolateral left fourth through seventh ribs are f elt present.
[2018-02-08 18:05] VITALS: BP 132/65; PULSE 96; TEMP 99
== END 2018-02-08 18:30 | disposition home or self-care (01) ==
LOC: EC 15:49
DX: S22.42XA Multiple fractures of ribs, left side, initial encounter for closed fracture (principal); J40 Bronchitis, not specified as acute or chronic; E11.9 Type 2 diabetes mellitus without complications; K50.90 Crohn's disease, unspecified, without complications; M19.90 Unspecified osteoarthritis, unspecified site; F41.9 Anxiety disorder, unspecified; Z86.19 Personal history of other infectious and parasitic diseases; Z86.14 Personal history of Methicillin resistant Staphylococcus aureus infection; Z87.891 Personal history of nicotine dependence; Z79.52 Long term (current) use of systemic steroids; Z79.84 Long term (current) use of oral hypoglycemic drugs; Z79.899 Other long term (current) drug therapy; Z88.1 Allergy status to other antibiotic agents; Z91.041 Radiographic dye allergy status; Z91.048 Other nonmedicinal substance allergy status; Z88.6 Allergy status to analgesic agent; Z88.8 Allergy status to other drugs, medicaments and biological substances; Z93.2 Ileostomy status; Z96.641 Presence of right artificial hip joint; W19.XXXA Unspecified fall, initial encounter
CPT/HCPCS: 36415; 85025; 99284

== ENCOUNTER → 2018-03-31 | Outpatient (CLI) | payer OTHER, MEDICARE ==
[2018-03-31 14:45] LABS: Appearance,Urine Cloudy (Clear); Bilirubin,Urine Negative (Negative); Blood,Urine Negative (Negative); Color,Urine Yellow; Glucose,Urine (UA) Negative (Negative); Ketones,Urine Negative (Negative); Leukocyte Esterase,Urine Large (Negative); Magnesium 2.1 mg/dL (1.6-2.3); Mucus,Urine Rare /hpf; Nitrite,Urine Positive (Negative); Phosphorus 4.1 mg/dL (2.5-4.5); Potassium 5.1 mmol/L (3.5-5.1); Protein,Urine 2+ (Negative); Specific Gravity,Urine 1.017 (1.001-1.035); Squamous Epithelial Cell,Urine <1 /hpf (0-4); Urobilinogen,Urine <2.0 mg/dL (<2.0); WBC,Urine >182 /hpf (0-5)
[2018-03-31 14:54] LABS: Anisocytosis Slight; HGB 9.7 gm/dL (11.4-16.0); Hypochromasia Slight; MCH 35.6 pg (25.0-35.0); MCHC 32.2 g/dL (31.0-37.0); MCV 110.6 fL (80.0-100.0); Macrocytosis Marked; Mean Platelet Volume 7.7; Platelet Count 119 k/uL (150-450); RBC 2.71 m/uL (3.80-5.40); RDW 18.7 % (11.5-15.5); WBC 6.5 k/uL (3.8-10.6)
[2018-03-31 19:43] LABS: Iron Saturation 30.28 (12.00-45.00)
[2018-03-31 19:52] LABS: Vitamin D 25 Hydroxy 27.5 ng/mL (30.0-100.0)
[2018-03-31 20:19] LABS: Hemoglobin A1C 3.9 % (4.0-6.0)
[2018-03-31 20:30] LABS: Parathyroid Hormone Intact 45.3 pg/mL (14.0-72.0)
== END ==
LOC: LABWHC1 13:32
PROVIDERS: ATTEND Orthopaedic Surgery
DX: N39.0 Urinary tract infection, site not specified (principal); E11.22 Type 2 diabetes mellitus with diabetic chronic kidney disease; N18.3 Chronic kidney disease, stage 3 (moderate); D63.1 Anemia in chronic kidney disease; E55.9 Vitamin D deficiency, unspecified; N25.81 Secondary hyperparathyroidism of renal origin
CPT/HCPCS: 36415; 80048; 81001; 82306; 82728; 83036; 83540; 83550; 83735; 83970; 84100; 84550; 85027; 87086

== ENCOUNTER → 2018-04-18 | Outpatient (CLI) | payer OTHER, MEDICARE ==
[2018-04-18 17:29] LABS: Anisocytosis Slight; HCT 31.3 % (34.0-46.0); HGB 9.9 gm/dL (11.4-16.0); Hypochromasia Marked; MCH 35.4 pg (25.0-35.0); MCHC 31.6 g/dL (31.0-37.0); MCV 111.8 fL (80.0-100.0); Macrocytosis Marked; Platelet Count 132 k/uL (150-450); RDW 16.2 % (11.5-15.5); WBC 7.6 k/uL (3.8-10.6)
[2018-04-18 17:42] LABS: Appearance,Urine Clear (Clear); Bilirubin,Urine Negative (Negative); Blood,Urine Negative (Negative); Color,Urine Light Yellow; Glucose,Urine (UA) Negative (Negative); Ketones,Urine Negative (Negative); Leukocyte Esterase,Urine Large (Negative); Mucus,Urine Rare /hpf; Nitrite,Urine Negative (Negative); Protein,Urine Negative (Negative); RBC,Urine <1 /hpf (0-5); Specific Gravity,Urine 1.005 (1.001-1.035); Urobilinogen,Urine <2.0 mg/dL (<2.0); WBC,Urine 29 /hpf (0-5)
[2018-04-19 02:33] LABS: Anion Gap 9.1 mmol/L (4.00-12.00); Calcium 9.3 mg/dL (8.7-10.3); Carbon Dioxide 28.9 mmol/L (21.6-31.8); Magnesium 1.9 mg/dL (1.5-2.4); Phosphorus 3.6 mg/dL (2.4-5.1); Potassium 4.5 mmol/L (3.5-5.5); Uric Acid 9.5 mg/dL (2.9-7.7)
[2018-04-19 02:35] LABS: Vitamin D 25 Hydroxy 27.3 ng/mL (30.0-100.0)
[2018-04-19 02:45] LABS: Parathyroid Hormone Intact 83.6 pg/mL (14.0-72.0)
[2018-04-19 03:08] LABS: Iron Saturation 9.38 (12.00-45.00)
[2018-04-19 03:09] LABS: Total Volume 24 Hour,Urine 1500 mL
[2018-04-19 03:29] LABS: Creatinine,Urine Random 45.9 mg/dL
[2018-04-19 03:32] LABS: Anti-DNA, DS unit <1.0 IU/mL; DNA Double-Stranded NEGATIVE (NEGATIVE)
[2018-04-19 04:21] LABS: Hemoglobin A1C 4.1 % (4.0-6.0)
[2018-04-21 14:46] LABS: C-ANCA <1:20 Titer (<1:20); P-ANCA <1:20 Titer (<1:20)
== END | disposition home or self-care (01) ==
LOC: LABWHC1 16:23
PROVIDERS: ATTEND Nurse Practitioner Family
DX: M10.9 Gout, unspecified (principal); R80.9 Proteinuria, unspecified; N17.9 Acute kidney failure, unspecified; E11.9 Type 2 diabetes mellitus without complications; N39.0 Urinary tract infection, site not specified; E83.39 Other disorders of phosphorus metabolism
CPT/HCPCS: 36415; 80048; 81001; 81050; 82306; 82570; 82728; 83036; 83516; 83540; 83550; 83735; 83883; 83970; 84100; 84156; 84166; 84550; 85027; 86038; 86160; 86162; 86225; 86255; 86334; 87086

== ENCOUNTER → 2018-04-30 | Outpatient (CLI) | payer OTHER, MEDICARE | END | disposition home or self-care (01) | LOC: LABWHC1 14:14 | PROVIDERS: ATTEND Orthopaedic Surgery | DX: M79.671 Pain in right foot (principal); E11.9 Type 2 diabetes mellitus without complications; N28.9 Disorder of kidney and ureter, unspecified; K50.90 Crohn's disease, unspecified, without complications; D64.9 Anemia, unspecified; M84.374A Stress fracture, right foot, initial encounter for fracture; B18.2 Chronic viral hepatitis C; K21.9 Gastro-esophageal reflux disease without esophagitis; Z87.891 Personal history of nicotine dependence | CPT/HCPCS: 36415; 82306 ==

== ENCOUNTER 2018-05-03 15:47 | Inpatient (IN) | payer OTHER, MEDICARE ==
[2018-05-03] MEDS ORDERED: SODIUM CHLORIDE 0.9% 1,000 ML IV STA (16:19)
--- NOTE | 2018-05-03 16:21 | ED ---
GI Bleed HPI - General Chief complaint: GI Bleed Stated complaint: Bleeding from ileostomy Time Seen by Provider: 05/03/18 16:00 Source: patient Mode of arrival: wheelchair Limitations: no limitations - History of Present Illness Initial comments: Patient is a 62-year-old female presenting for bleeding from her ileostomy bag. Patient states that she originally had the bag placed in May 2010 secondary to Crohn's disease. She was seen her on and admitted for bleeding from the back but then when she was seen in the hospital, she was no longer having bleeding and Dr. Melo released her with a close follow-up to be seen on Saturday as an outpatient. She states that usually when this occurs, she needs argon beam therapy and was also given a medication for the bleeding but does not remember exactly what it was. - Related Data Home Medications Medication Instructions Recorded Confirmed Linagliptin [Tradjenta] 5 mg PO DAILY 07/11/16 05/03/18 Mirtazapine [Remeron] 15 mg PO HS 06/11/17 05/03/18 predniSONE 20 mg PO DAILY 06/11/17 05/03/18 Sertraline HCl [Zoloft] 100 mg PO HS 07/26/17 05/03/18 ALPRAZolam [Xanax] 1 mg PO TID PRN 01/29/18 05/03/18 Ergocalciferol (Vitamin D2) 50,000 unit PO SA 01/29/18 05/03/18 [Vitamin D2] Calcitriol 0.25 mcg PO Q30D 05/01/18 05/03/18 Cranberry Fruit Concentrate [Azo 500 mg PO BID 05/01/18 05/03/18 Cranberry] Ferrous Sulfate [Iron (65 MG 325 mg PO BID 05/01/18 05/03/18 Elemental)] Folic Acid 0.4 mg PO DAILY 05/01/18 05/03/18 Loperamide HCl [Imodium A-D] 2 mg PO DAILY PRN 05/01/18 05/03/18 Magnesium 200 mg PO DAILY 05/03/18 05/03/18 Allergies Allergy/AdvReac Type Severity Reaction Status Date / Time adhesive tape Allergy Severe Rash/Hives/Skin Verified 05/03/18 16:31 Peeling Quinolones Allergy Severe Anaphylaxis Verified 05/03/18 16:31 /Swelling levofloxacin [From Levaquin] Allergy Swelling Verified 05/03/18 16:31 Iodinated Contrast- Oral and AdvReac Severe Chest Pain Verified 05/03/18 16:31 IV Dye [Iodinated Contrast Media - IV Dye] NSAIDS (Non-Steroidal AdvReac Severe GI Verified 05/03/18 16:31 Anti-Inflamma Bleeding/Liver Damage warfarin [From Coumadin] AdvReac Severe Abdominal Verified 05/03/18 16:31 Pain Review of Systems ROS Statement: Those systems with pertinent positive or pertinent negative responses have been documented in the HPI. Constitutional: Negative for chills, fatigue and fever. HENT: Negative for congestion. Respiratory: Negative for chest tightness, shortness of breath and wheezing. Negative for cough Cardiovascular: Negative for chest pain and palpitations. Gastrointestinal: Negative for abdominal pain. Negative for abdominal distention , diarrhea, nausea and vomiting. Positive for bleeding from ileostomy site Genitourinary: Negative for dysuria. Musculoskeletal: Negative for back pain, neck pain and neck stiffness. Skin: Negative for color change. Neurological: Negative for dizziness, speech difficulty, weakness and light- headedness. Psychiatric/Behavioral: Negative for agitation and confusion. Negative for anxiety ROS Other: All systems not noted in ROS Statement are negative. Past Medical History Past Medical History: Diabetes Mellitus, GERD/Reflux, Liver Disease, Osteoarthritis (OA) Additional Past Medical History / Comment(s): crohns, hx. hep c-currently in remission, past hx. sepsis & ards 2007, has ileostomy, hx. kidney stones, hx. of infection in hip-was on antibiotics, has spacer in, hx. anemia related to intermittent bleeding from stoma, has past hx. elevated heart rate, states is related to when she is anemic,pressure sore not open (to lt great toe) sees dr villafuerte, uti low platelets septicemia per pt History of Any Multi-Drug Resistant Organisms: MRSA Date of last positivie culture/infection: 04/25/16 MDRO Source:: Blood & Right Hip Past Surgical History: Appendectomy, Bowel Resection, Cholecystectomy, Hernia Repair, Hysterectomy, Tubal Ligation Additional Past Surgical History / Comment(s): ileostomy 2009 WITH 3-4 RE- SUTURING EPISODES RELATED TO BLEEDING, ileoscopy w/argon gas coagulation of stoma, 10-22-16 revison rt toal hip arthroplasty Past Anesthesia/Blood Transfusion Reactions: No Reported Reaction Past Psychological History: Anxiety Smoking Status: Former smoker Past Alcohol Use History: None Reported Past Drug Use History: None Reported - Past Family History Mother Family Medical History: CVA/TIA, Diabetes Mellitus Additional Family Medical History / Comment(s): Mother at age 88 from CVA. Sister(s) Additional Family Medical History / Comment(s): Patient has 3 sisters with no major medical problems. Patient does not have any brothers. Patient has 2 sons with no major medical problems. Father Family Medical History: Cancer Additional Family Medical History / Comment(s): MOTHER- DIABETES General Exam - General Exam Comments Initial Comments: Constitutional: Pt is oriented to person, place, and time. Pt appears well- developed and well-nourished. No distress. HENT: Head: Normocephalic and atraumatic. Eyes: EOM are normal. Neck: Normal range of motion. Neck supple. Cardiovascular: Tachycardia present, regular rhythm, S1 normal, S2 normal and normal heart sounds. Exam reveals no gallop and no friction rub. No murmur heard. Pulmonary/Chest: Effort normal and breath sounds normal. No tachypnea and no bradypnea. No respiratory distress. No wheezes or rales noted. Abdominal: Soft. Bowel sounds are normal. Pt exhibits no shifting dullness, no distension, no pulsatile liver, no fluid wave, no abdominal bruit and no ascites. There is no tenderness. There is no rigidity, no rebound, no guarding, no tenderness at McBurney's point and negative Raymundo's sign. Ileostomy bag in place with dark red maroonish stool in bag Musculoskeletal: Normal range of motion. Neurological: Pt is alert and oriented to person, place, and time. No cranial nerve deficit. Skin: Skin is warm and dry. No rash noted. Pt is not diaphoretic. No erythema. No pallor. Psychiatric: Pt has a normal mood and affect. Pt behavior is normal. Thought content normal. Limitations: no limitations Course Vital Signs 05/03/18 15:56 Temperature 98.1 F Pulse Rate 105 H Respiratory 20 Rate Blood Pressure 134/76 O2 Sat by Pulse 99 Oximetry Medical Decision Making - Medical Decision Making Laboratory studies showed that hemoglobin was stable at 8.4 and platelet count had decreased from 179 to120. Patient was mildly tachycardic in the low 100s and therefore was given fluids. Case was discussed with general surgery, Dr. Da Silva and it was recommended that the patient be admitted to the medical service with GI consultation. Case is also discussed over the phone with Dr. torres and he was made aware of the case and he stated that he was aware of the patient from her R visit a couple days ago. Explained all labs and diagnostic test results and that we will admit patient to hospital. Pt is agreeable to plan and case has been discussed with Dr. Kothari and they agree to accept the pt. - Lab Data Result diagrams: 05/03/18 16:37 05/03/18 16:37 Lab Results 05/03/18 05/03/18 05/03/18 Range/Units 16:37 16:37 16:37 WBC 5.3 (3.8-10.6) k/uL RBC 2.35 L (3.80-5.40) m/uL Hgb 8.4 L (11.4-16.0) gm/dL Hct 26.2 L (34.0-46.0) % MCV 111.2 H (80.0-100.0) fL MCH 35.6 H (25.0-35.0) pg MCHC 32.1 (31.0-37.0) g/dL RDW 15.9 H (11.5-15.5) % Plt Count 120 L (150-450) k/uL Neutrophils % 85 % Lymphocytes % 9 % Monocytes % 4 % Eosinophils % 1 % Basophils % 1 % Neutrophils # 4.5 (1.3-7.7) k/uL Lymphocytes # 0.5 L (1.0-4.8) k/uL Monocytes # 0.2 (0-1.0) k/uL Eosinophils # 0.1 (0-0.7) k/uL Basophils # 0.0 (0-0.2) k/uL Manual Slide Review Performed Polychromasia Present Hypochromasia Moderate Poikilocytosis (manual Present Macrocytosis Marked PT 10.3 (9.0-12.0) sec INR 1.1 (<1.2) APTT 20.8 L (22.0-30.0) sec Sodium 139 (137-145) mmol/L Potassium 4.7 (3.5-5.1) mmol/L Chloride 106 (98-107) mmol/L Carbon Dioxide 24 (22-30) mmol/L Anion Gap 9 mmol/L BUN 26 H (7-17) mg/dL Creatinine 1.26 H (0.52-1.04) mg/dL Est GFR (CKD-EPI)AfAm 54 (>60 ml/min/1.73 sqM) Est GFR (CKD-EPI)NonAf 46 (>60 ml/min/1.73 sqM) Glucose 196 H (74-99) mg/dL Calcium 8.9 (8.4-10.2) mg/dL Total Bilirubin 0.5 (0.2-1.3) mg/dL AST 42 H (14-36) U/L ALT 33 (9-52) U/L Alkaline Phosphatase 31 L (38-126) U/L Troponin I (0.000-0.034) ng/mL Total Protein 5.8 L (6.3-8.2) g/dL Albumin 3.4 L (3.5-5.0) g/dL Lipase 396 H (23-300) U/L 05/03/18 Range/Units 16:37 WBC (3.8-10.6) k/uL RBC (3.80-5.40) m/uL Hgb (11.4-16.0) gm/dL Hct (34.0-46.0) % MCV (80.0-100.0) fL MCH (25.0-35.0) pg MCHC (31.0-37.0) g/dL RDW (11.5-15.5) % Plt Count (150-450) k/uL Neutrophils % % Lymphocytes % % Monocytes % % Eosinophils % % Basophils % % Neutrophils # (1.3-7.7) k/uL Lymphocytes # (1.0-4.8) k/uL Monocytes # (0-1.0) k/uL Eosinophils # (0-0.7) k/uL Basophils # (0-0.2) k/uL Manual Slide Review Polychromasia Hypochromasia Poikilocytosis (manual Macrocytosis PT (9.0-12.0) sec INR (<1.2) APTT (22.0-30.0) sec Sodium (137-145) mmol/L Potassium (3.5-5.1) mmol/L Chloride (98-107) mmol/L Carbon Dioxide (22-30) mmol/L Anion Gap mmol/L BUN (7-17) mg/dL Creatinine (0.52-1.04) mg/dL Est GFR (CKD-EPI)AfAm (>60 ml/min/1.73 sqM) Est GFR (CKD-EPI)NonAf (>60 ml/min/1.73 sqM) Glucose (74-99) mg/dL Calcium (8.4-10.2) mg/dL Total Bilirubin (0.2-1.3) mg/dL AST (14-36) U/L ALT (9-52) U/L Alkaline Phosphatase (38-126) U/L Troponin I <0.012 (0.000-0.034) ng/mL Total Protein (6.3-8.2) g/dL Albumin (3.5-5.0) g/dL Lipase (23-300) U/L - EKG Data EKG Comments: EKG shows normal sinus rhythm with rate of 97 bpm, VA interval 144, QRS 82, QTC 421. There is no significant ST depressions or elevations. Disposition Clinical Impression: GI bleed, Anemia Disposition: ADMITTED IP TO THIS [facility] Condition: Fair Referrals: Fab Recinos DO [Primary Care Provider] - 1-2 days Decision to Admit Reason: Admit from EC Decision Date: 05/03/18 Decision Time: 18:10
[2018-05-03 16:56] LABS: Basophils % (A) 1 %; Eosinophils # (A) 0.1 k/uL (0-0.7); Eosinophils % (A) 1 %; HCT 26.2 % (34.0-46.0); HGB 8.4 gm/dL (11.4-16.0); Hypochromasia Moderate; Lymphocytes # (A) 0.5 k/uL (1.0-4.8); Lymphocytes % (A) 9 %; MCH 35.6 pg (25.0-35.0); MCHC 32.1 g/dL (31.0-37.0); MCV 111.2 fL (80.0-100.0); Macrocytosis Marked; Mean Platelet Volume 7.1; Monocytes # (A) 0.2 k/uL (0-1.0); Monocytes % (A) 4 %; Neutrophils # (A) 4.5 k/uL (1.3-7.7); Neutrophils % (A) 85 %; Platelet Count 120 k/uL (150-450); RBC 2.35 m/uL (3.80-5.40); RDW 15.9 % (11.5-15.5); WBC 5.3 k/uL (3.8-10.6)
[2018-05-03 17:01] LABS: Albumin 3.4 g/dL (3.5-5.0); Calcium 8.9 mg/dL (8.4-10.2); Potassium 4.7 mmol/L (3.5-5.1); Total Bilirubin 0.5 mg/dL (0.2-1.3); Total Protein 5.8 g/dL (6.3-8.2)
[2018-05-03 17:10] LABS: INR 1.1 (<1.2); Poikilocytosis (M) Present; Polychromasia Present; Prothrombin Time 10.3 sec (9.0-12.0)
[2018-05-03 17:11] LABS: Partial Thromboplastin Time 20.8 sec (22.0-30.0)
[2018-05-03] MEDS ORDERED: NALOXONE 0.4 MG/ML 1 ML VIAL IV PRN (18:13)
[2018-05-03] MEDS ORDERED: LOPERAMIDE 2 MG CAP PO PRN (18:47)
[2018-05-03] MEDS ORDERED: ERGOCALCIFEROL 50,000 UNIT CAP PO SCH ×2 (19:00→23:35)
--- NOTE | 2018-05-03 20:09 | P.HPIM ---
History of Present Illness H&P Date: 05/03/18 Chief Complaint: Bleeding from stoma This is a 62-year-old female patient of Dr. Shrestha with past medical history of Crohn's disease status post ileostomy, type 2 diabetes, hepatitis C liver disease, osteoarthritis history of kidney stones, chronic anemia chronic anemia, history of MRSA, was just discharged from the hospital after she was admitted under the surgical service for stomal bleeding and was seen by Kameron Brandt and there was no intervention attempted, patient came back to the ER today with same complaints and the ER physician felt that she needed to be admitted under medical service and consult GI and surgery. Her hemoglobin was stable in the range of 8.2 and she appeared at baseline. Review of Systems Constitutional: Reports fatigue, Reports poor appetite, Reports weakness Eyes: denies blurred vision, denies bulging eye Ears: deny: decreased hearing Ears, nose, mouth and throat: Denies dysphagia, Denies neck lump, Denies sore throat Cardiovascular: Denies chest pain, Denies decreased exercise tolerance, Denies rapid heart beat, Denies shortness of breath Respiratory: Denies congestion, Denies cough with sputum, Denies home oxygen, Denies sleep apnea, Denies snoring, Denies wheezing Gastrointestinal: Reports abdominal pain, Reports diarrhea, Reports loss of appetite, Reports nausea, Denies heartburn, Denies hematochezia, Denies melena, Denies vomiting Genitourinary: Denies dysuria, Denies hematuria Musculoskeletal: Denies myalgias Musculoskeletal: absent: ankle pain, ankle stiffness, ankle swelling, elbow pain , elbow stiffness, elbow swelling, foot pain, foot stiffness, foot swelling, hand pain, hand stiffness, hand swelling, hip pain, hip stiffness, hip swelling , knee pain, knee stiffness, knee swelling, shoulder pain, shoulder stiffness, shoulder swelling, wrist pain, wrist stiffness, wrist swelling Integumentary: Denies pruritus, Denies rash Neurological: Denies numbness, Denies weakness Psychiatric: Reports anxiety, Reports depression, Denies sadness/tearfulness, Denies sleep disturbances, Denies suicidal ideation Endocrine: Denies fatigue, Denies weight change Past Medical History Past Medical History: Diabetes Mellitus, GERD/Reflux, Liver Disease, Osteoarthritis (OA) Additional Past Medical History / Comment(s): crohns, hx. hep c-currently in remission, past hx. sepsis & ards 2008, has ileostomy, hx. kidney stones, hx. of infection in hip-was on antibiotics, has spacer in, hx. anemia related to intermittent bleeding from stoma, has past hx. elevated heart rate, states is related to when she is anemic,pressure sore not open (to lt great toe) sees dr villafuerte, uti low platelets septicemia per pt History of Any Multi-Drug Resistant Organisms: MRSA Date of last positivie culture/infection: 04/25/16 MDRO Source:: Blood & Right Hip Past Surgical History: Appendectomy, Bowel Resection, Cholecystectomy, Hernia Repair, Hysterectomy, Tubal Ligation Additional Past Surgical History / Comment(s): ileostomy 2009 WITH 3-4 RE- SUTURING EPISODES RELATED TO BLEEDING, ileoscopy w/argon gas coagulation of stoma, 10-22-16 revison rt toal hip arthroplasty Past Anesthesia/Blood Transfusion Reactions: No Reported Reaction Past Psychological History: Anxiety Smoking Status: Former smoker Past Alcohol Use History: None Reported Past Drug Use History: None Reported - Past Family History Mother Family Medical History: CVA/TIA, Diabetes Mellitus Additional Family Medical History / Comment(s): Mother at age 88 from CVA. Sister(s) Additional Family Medical History / Comment(s): Patient has 3 sisters with no major medical problems. Patient does not have any brothers. Patient has 2 sons with no major medical problems. Father Family Medical History: Cancer Additional Family Medical History / Comment(s): MOTHER- DIABETES Medications and Allergies Home Medications Medication Instructions Recorded Confirmed Type Linagliptin [Tradjenta] 5 mg PO DAILY 07/11/16 05/03/18 History Mirtazapine [Remeron] 15 mg PO HS 06/11/17 05/03/18 History predniSONE 20 mg PO DAILY 06/11/17 05/03/18 History Sertraline HCl [Zoloft] 100 mg PO HS 07/26/17 05/03/18 History ALPRAZolam [Xanax] 1 mg PO TID PRN 01/29/18 05/03/18 History Ergocalciferol (Vitamin D2) 50,000 unit PO SA 01/29/18 05/03/18 History [Vitamin D2] Calcitriol 0.25 mcg PO Q30D 05/01/18 05/03/18 History Cranberry Fruit Concentrate [Azo 500 mg PO BID 05/01/18 05/03/18 History Cranberry] Ferrous Sulfate [Iron (65 MG 325 mg PO BID 05/01/18 05/03/18 History Elemental)] Folic Acid 0.4 mg PO DAILY 05/01/18 05/03/18 History Loperamide HCl [Imodium A-D] 2 mg PO DAILY PRN 05/01/18 05/03/18 History Magnesium 200 mg PO DAILY 05/03/18 05/03/18 History Allergies Allergy/AdvReac Type Severity Reaction Status Date / Time adhesive tape Allergy Severe Rash/Hives/Skin Verified 05/03/18 16:31 Peeling Quinolones Allergy Severe Anaphylaxis Verified 05/03/18 16:31 /Swelling levofloxacin [From Levaquin] Allergy Swelling Verified 05/03/18 16:31 Iodinated Contrast- Oral and AdvReac Severe Chest Pain Verified 05/03/18 16:31 IV Dye [Iodinated Contrast Media - IV Dye] NSAIDS (Non-Steroidal AdvReac Severe GI Verified 05/03/18 16:31 Anti-Inflamma Bleeding/Liver Damage warfarin [From Coumadin] AdvReac Severe Abdominal Verified 05/03/18 16:31 Pain Physical Exam Vitals: Vital Signs Temp Pulse Resp BP Pulse Ox 05/03/18 15:56 98.1 F 105 H 20 134/76 99 Intake and Output 05/03/18 05/03/18 05/03/18 06:59 14:59 22:59 Other: Weight 72.121 kg - Constitutional General appearance: average body habitus, no acute distress - EENT Eyes: anicteric sclerae, EOMI, PERRLA, no ptosis, no scleral icterus, normal appearance ENT: hearing grossly normal, NA/AT, normal oropharynx Ears: bilateral: normal - Neck Neck: no lymphadenopathy, normal ROM, no rigidity, no stridor, no thyromegaly Carotids: bilateral: upstroke normal Thyroid: bilateral: normal size - Respiratory Respiratory: bilateral: diminished, negative: dullness, rales, rhonchi, wheezing , prolonged expiration, prolonged inspiration - Cardiovascular Rhythm: regular Heart sounds: normal: S1, S2 Abnormal Heart Sounds: systolic murmur - Gastrointestinal General gastrointestinal: normal bowel sounds, soft, tenderness (Illeostomy) - Integumentary Integumentary: normal, normal turgor - Neurologic Neurologic: CNII-XII intact - Musculoskeletal Musculoskeletal: generalized weakness, strength equal bilaterally - Psychiatric Psychiatric: A&O x's 3, appropriate affect, intact judgment & insight Results CBC & Chem 7: 05/03/18 16:37 05/03/18 16:37 Labs: Abnormal Lab Results - Last 24 Hours (Table) 05/03/18 05/03/18 05/03/18 Range/Units 16:37 16:37 16:37 RBC 2.35 L (3.80-5.40) m/uL Hgb 8.4 L (11.4-16.0) gm/dL Hct 26.2 L (34.0-46.0) % MCV 111.2 H (80.0-100.0) fL MCH 35.6 H (25.0-35.0) pg RDW 15.9 H (11.5-15.5) % Plt Count 120 L (150-450) k/uL Lymphocytes # 0.5 L (1.0-4.8) k/uL APTT 20.8 L (22.0-30.0) sec BUN 26 H (7-17) mg/dL Creatinine 1.26 H (0.52-1.04) mg/dL Glucose 196 H (74-99) mg/dL AST 42 H (14-36) U/L Alkaline Phosphatase 31 L (38-126) U/L Total Protein 5.8 L (6.3-8.2) g/dL Albumin 3.4 L (3.5-5.0) g/dL Lipase 396 H (23-300) U/L Thrombosis Risk Factor Assmnt - DVT/VTE Prophylaxis DVT/VTE Prophylaxis: Mechanical Prophylaxis ordered Assessment and Plan Assessment: Assessment and Plan: 1. Stomal bleed. we will monitor hemoglobin, patient likely will see Dr. Barakat on Saturday morning for possible laser procedure at this point no active bleeding. 2. Chronic kidney disease satge 3. stable we will monitor CMP, we will continue with Rocaltrol. 3. Type 2 diabetes - insulin sliding scale and Tradjenta 5 mg orally daily. 7. Hepatitis C in remission - stable . 8. Crohn's disease status post ileostomy in 2007 - no blood in the ileostomy, hemoglobin stable. Continue prednisone 20 mg daily 9. Generalized anxiety disorder and recurrent depression . we will continue with sertraline, xanax and remeron. 10. H/O hypertension. off Rx . 11. GI prophylaxis prophylaxis. will continue with PPI. 12. DVT prophylaxis. will continue with Knee-high Edilberto hose. 13. admitted as an inpatient, estimated length of stay 2 midnights. 14. Full code.
[2018-05-03 20:18] VITALS: BMI 25.7
[2018-05-03] MEDS ORDERED: NON-FORMULARY DRUG (Cranberry Fruit Concentrate [Azo Cranberry] 500 MG) PO SCH (21:00)
[2018-05-03] MEDS: ALPRAZolam 1 MG TAB PO PRN (23:32)
[2018-05-03] MEDS: MIRTAZAPINE 15 MG TAB PO SCH (23:32)
[2018-05-03] MEDS: FERROUS SULFATE 325 MG TAB PO SCH (23:33)
[2018-05-03] MEDS: SERTRALINE 100 MG TAB PO SCH (23:33)
[2018-05-03] MEDS: SODIUM CHLORIDE 0.9% 1,000 ML IV SCH (23:34)
[2018-05-04 07:05] LABS: Anisocytosis Slight; Basophils % (A) 0 %; Eosinophils # (A) 0.1 k/uL (0-0.7); Eosinophils % (A) 2 %; HCT 21.2 % (34.0-46.0); Hypochromasia Moderate; Lymphocytes # (A) 1.1 k/uL (1.0-4.8); Lymphocytes % (A) 24 %; MCHC 31.3 g/dL (31.0-37.0); MCV 111.9 fL (80.0-100.0); Mean Platelet Volume 7.5; Monocytes # (A) 0.3 k/uL (0-1.0); Monocytes % (A) 6 %; Neutrophils # (A) 3.1 k/uL (1.3-7.7); Neutrophils % (A) 66 %; RBC 1.89 m/uL (3.80-5.40); RDW 16.2 % (11.5-15.5); WBC 4.6 k/uL (3.8-10.6)
[2018-05-04 07:08] LABS: HGB 6.6 gm/dL (11.4-16.0); Macrocytosis Marked
[2018-05-04 07:13] LABS: Albumin 2.7 g/dL (3.5-5.0); Calcium 8.4 mg/dL (8.4-10.2); Potassium 4.5 mmol/L (3.5-5.1); Total Bilirubin 0.3 mg/dL (0.2-1.3); Total Protein 4.9 g/dL (6.3-8.2)
[2018-05-04 07:22] LABS: Platelet Count 96 k/uL (150-450); Polychromasia Present
[2018-05-04] MEDS ORDERED: FUROSEMIDE 10 MG/ML 4 ML VIAL IV STA (08:56)
--- NOTE | 2018-05-04 10:42 | P.PN ---
Subjective Progress Note Date: 05/04/18 This is a 62-year-old female patient of Dr. Shrestha with past medical history of Crohn's disease status post ileostomy, type 2 diabetes, hepatitis C liver disease, osteoarthritis history of kidney stones, chronic anemia chronic anemia, history of MRSA, was just discharged from the hospital after she was admitted under the surgical service for stomal bleeding and was seen by Kameron Brandt and there was no intervention attempted, patient came back to the ER today with same complaints and the ER physician felt that she needed to be admitted under medical service and consult GI and surgery. Her hemoglobin was stable in the range of 8.2 and she appeared at baseline. 05/04: Patient sitting up in bed in no apparent distress she appears a bit dizzy however which his initial spotting no abdominal pain she has no blood in the ileostomy bag, hemoglobin did drop to 6.6, type and cross and transfuse 2 units of packed red blood cells. Objective - Vital Signs Vital signs: Vital Signs Temp 98.5 F 05/04/18 07:00 Pulse 77 05/04/18 07:00 Resp 18 05/04/18 07:00 BP 107/61 05/04/18 07:00 Pulse Ox 98 05/04/18 07:00 Intake & Output 05/03/18 05/04/18 05/04/18 18:59 06:59 18:59 Intake Total 160 Balance 160 Weight 72.121 kg 72.121 kg Intake: Intake, IV Titration 160 Amount Sodium Chloride 0.9% 1, 160 000 ml @ 20 mls/hr IV . Q24H [facility] Rx#:[id number] Other: # Voids 1 - Exam - Constitutional General appearance: average body habitus, no acute distress - EENT Eyes: anicteric sclerae, EOMI, PERRLA, no ptosis, no scleral icterus, normal appearance ENT: hearing grossly normal, NA/AT, normal oropharynx Ears: bilateral: normal - Neck Neck: no lymphadenopathy, normal ROM, no rigidity, no stridor, no thyromegaly Carotids: bilateral: upstroke normal Thyroid: bilateral: normal size - Respiratory Respiratory: bilateral: diminished, negative: dullness, rales, rhonchi, wheezing , prolonged expiration, prolonged inspiration - Cardiovascular Rhythm: regular Heart sounds: normal: S1, S2 Abnormal Heart Sounds: systolic murmur - Gastrointestinal General gastrointestinal: normal bowel sounds, soft, tenderness (Illeostomy) - Integumentary Integumentary: normal, normal turgor - Neurologic Neurologic: CNII-XII intact - Musculoskeletal Musculoskeletal: generalized weakness, strength equal bilaterally - Psychiatric Psychiatric: A&O x's 3, appropriate affect, intact judgment & insight - Labs CBC & Chem 7: 05/04/18 06:22 05/04/18 06:22 Labs: Abnormal Lab Results - Last 24 Hours (Table) 05/03/18 05/03/18 05/03/18 Range/Units 16:37 16:37 16:37 RBC 2.35 L (3.80-5.40) m/uL Hgb 8.4 L (11.4-16.0) gm/dL Hct 26.2 L (34.0-46.0) % MCV 111.2 H (80.0-100.0) fL MCH 35.6 H (25.0-35.0) pg RDW 15.9 H (11.5-15.5) % Plt Count 120 L (150-450) k/uL Lymphocytes # 0.5 L (1.0-4.8) k/uL APTT 20.8 L (22.0-30.0) sec Chloride (98-107) mmol/L BUN 26 H (7-17) mg/dL Creatinine 1.26 H (0.52-1.04) mg/dL Glucose 196 H (74-99) mg/dL AST 42 H (14-36) U/L Alkaline Phosphatase 31 L (38-126) U/L Total Protein 5.8 L (6.3-8.2) g/dL Albumin 3.4 L (3.5-5.0) g/dL Lipase 396 H (23-300) U/L 05/04/18 05/04/18 Range/Units 06:22 06:22 RBC 1.89 L (3.80-5.40) m/uL Hgb 6.6 L* D (11.4-16.0) gm/dL Hct 21.2 L (34.0-46.0) % MCV 111.9 H (80.0-100.0) fL MCH (25.0-35.0) pg RDW 16.2 H (11.5-15.5) % Plt Count 96 L (150-450) k/uL Lymphocytes # (1.0-4.8) k/uL APTT (22.0-30.0) sec Chloride 109 H (98-107) mmol/L BUN 20 H (7-17) mg/dL Creatinine 1.28 H (0.52-1.04) mg/dL Glucose 71 L (74-99) mg/dL AST (14-36) U/L Alkaline Phosphatase 21 L (38-126) U/L Total Protein 4.9 L (6.3-8.2) g/dL Albumin 2.7 L (3.5-5.0) g/dL Lipase (23-300) U/L Assessment and Plan Assessment: Assessment and Plan: 1. Stomal bleed. we will monitor hemoglobin, patient likely will see Dr. Barakat on Saturday morning for possible laser procedure . 2. Chronic kidney disease satge 3. stable we will monitor CMP, we will continue with Rocaltrol. 3. Type 2 diabetes - insulin sliding scale and Tradjenta 5 mg orally daily. 7. Hepatitis C in remission - stable . 8. Crohn's disease status post ileostomy in 2007 - no blood in the ileostomy, hemoglobin stable. Continue prednisone 20 mg daily 9. Generalized anxiety disorder and recurrent depression . we will continue with sertraline, xanax and remeron. 10. H/O hypertension. off Rx . 11. GI prophylaxis prophylaxis. will continue with PPI. 12. DVT prophylaxis. will continue with Knee-high Edilberto hose. 13. Acute blood loss anemia. Type and cross and transfuse 2 units of packed cells. will monitor HGB in 24 h.
--- NOTE | 2018-05-04 10:53 | P.GSCN ---
History of Present Illness Consult date: 05/04/18 History of present illness: This is a 62-year-old female who has a history of Crohn's, hep C, thrombocytopenia. She's had multiple surgeries regarding her Crohn's and currently has an ileostomy. She's had this for 20+ years. She regularly follows up with Dr. Barakat. Intermittently she experiences bleeding from her ileostomy site. Over the last week she has experienced several episodes of bleeding. She was recently discharged from the hospital because of bleeding and stopped and was going to follow up with Dr. Barakat on Saturday. yesterday night the bleeding began again and she was unable to stop it at home so she return to the hospital. Overnight the bleeding did stop. Her hemoglobin was 6.6 she is currently receiving 2 units of packed cells. There is no active bleeding at this time Past Medical History Past Medical History: Diabetes Mellitus, GERD/Reflux, Liver Disease, Osteoarthritis (OA) Additional Past Medical History / Comment(s): crohns, hx. hep c-currently in remission, past hx. sepsis & ards 2007, has ileostomy, hx. kidney stones, hx. of infection in hip-was on antibiotics, has spacer in, hx. anemia related to intermittent bleeding from stoma, has past hx. elevated heart rate, states is related to when she is anemic,pressure sore not open (to lt great toe) sees dr villafuerte, uti low platelets septicemia per pt History of Any Multi-Drug Resistant Organisms: MRSA Year Discovered:: 04/25/16 MDRO Source:: Blood & Right Hip Past Surgical History: Appendectomy, Bowel Resection, Cholecystectomy, Hernia Repair, Hysterectomy, Tubal Ligation Additional Past Surgical History / Comment(s): ileostomy 2009 WITH 3-4 RE- SUTURING EPISODES RELATED TO BLEEDING, ileoscopy w/argon gas coagulation of stoma, 10-22-16 revison rt toal hip arthroplasty Past Anesthesia/Blood Transfusion Reactions: No Reported Reaction Past Psychological History: Anxiety Smoking Status: Former smoker Past Alcohol Use History: None Reported Past Drug Use History: None Reported - Past Family History Mother Family Medical History: CVA/TIA, Diabetes Mellitus Additional Family Medical History / Comment(s): Mother at age 88 from CVA. Sister(s) Additional Family Medical History / Comment(s): Patient has 3 sisters with no major medical problems. Patient does not have any brothers. Patient has 2 sons with no major medical problems. Father Family Medical History: Cancer Additional Family Medical History / Comment(s): MOTHER- DIABETES Medications and Allergies Home Medications Medication Instructions Recorded Confirmed Type Linagliptin [Tradjenta] 5 mg PO DAILY 07/11/16 05/03/18 History Mirtazapine [Remeron] 15 mg PO HS 06/11/17 05/03/18 History predniSONE 20 mg PO DAILY 06/11/17 05/03/18 History Sertraline HCl [Zoloft] 100 mg PO HS 07/26/17 05/03/18 History ALPRAZolam [Xanax] 1 mg PO TID PRN 01/29/18 05/03/18 History Ergocalciferol (Vitamin D2) 50,000 unit PO SA 01/29/18 05/03/18 History [Vitamin D2] Calcitriol 0.25 mcg PO Q30D 05/01/18 05/03/18 History Cranberry Fruit Concentrate [Azo 500 mg PO BID 05/01/18 05/03/18 History Cranberry] Ferrous Sulfate [Iron (65 MG 325 mg PO BID 05/01/18 05/03/18 History Elemental)] Folic Acid 0.4 mg PO DAILY 05/01/18 05/03/18 History Loperamide HCl [Imodium A-D] 2 mg PO DAILY PRN 05/01/18 05/03/18 History Magnesium 200 mg PO DAILY 05/03/18 05/03/18 History Allergies Allergy/AdvReac Type Severity Reaction Status Date / Time adhesive tape Allergy Severe Rash/Hives/Skin Verified 05/03/18 16:31 Peeling Quinolones Allergy Severe Anaphylaxis Verified 05/03/18 16:31 /Swelling levofloxacin [From Levaquin] Allergy Swelling Verified 05/03/18 16:31 Iodinated Contrast- Oral and AdvReac Severe Chest Pain Verified 05/03/18 16:31 IV Dye [Iodinated Contrast Media - IV Dye] NSAIDS (Non-Steroidal AdvReac Severe GI Verified 05/03/18 16:31 Anti-Inflamma Bleeding/Liver Damage warfarin [From Coumadin] AdvReac Severe Abdominal Verified 05/03/18 16:31 Pain Surgical - Exam Osteopathic Statement: *. No significant issues noted on an osteopathic structural exam other than those noted in the History and Physical/Consult. Vital Signs Temp Pulse Resp BP Pulse Ox 98.1 F 105 H 20 134/76 99 05/03/18 15:56 05/03/18 15:56 05/03/18 15:56 05/03/18 15:56 05/03/18 15:56 - General well developed, well nourished, no distress - Neck trachea midline - Respiratory normal expansion, normal respiratory effort - Cardiovascular Rhythm: regular - Abdomen ostomy pink patent no active bleeding Abdomen: soft, non tender - Neurologic normal coordination, normal sensation - Psychiatric oriented to time, oriented to person, oriented to place Results - Labs 05/04/18 06:22 05/04/18 06:22 Abnormal Lab Results - Last 24 Hours (Table) 05/03/18 05/03/18 05/03/18 Range/Units 16:37 16:37 16:37 RBC 2.35 L (3.80-5.40) m/uL Hgb 8.4 L (11.4-16.0) gm/dL Hct 26.2 L (34.0-46.0) % MCV 111.2 H (80.0-100.0) fL MCH 35.6 H (25.0-35.0) pg RDW 15.9 H (11.5-15.5) % Plt Count 120 L (150-450) k/uL Lymphocytes # 0.5 L (1.0-4.8) k/uL APTT 20.8 L (22.0-30.0) sec Chloride (98-107) mmol/L BUN 26 H (7-17) mg/dL Creatinine 1.26 H (0.52-1.04) mg/dL Glucose 196 H (74-99) mg/dL AST 42 H (14-36) U/L Alkaline Phosphatase 31 L (38-126) U/L Total Protein 5.8 L (6.3-8.2) g/dL Albumin 3.4 L (3.5-5.0) g/dL Lipase 396 H (23-300) U/L 05/04/18 05/04/18 Range/Units 06:22 06:22 RBC 1.89 L (3.80-5.40) m/uL Hgb 6.6 L* D (11.4-16.0) gm/dL Hct 21.2 L (34.0-46.0) % MCV 111.9 H (80.0-100.0) fL MCH (25.0-35.0) pg RDW 16.2 H (11.5-15.5) % Plt Count 96 L (150-450) k/uL Lymphocytes # (1.0-4.8) k/uL APTT (22.0-30.0) sec Chloride 109 H (98-107) mmol/L BUN 20 H (7-17) mg/dL Creatinine 1.28 H (0.52-1.04) mg/dL Glucose 71 L (74-99) mg/dL AST (14-36) U/L Alkaline Phosphatase 21 L (38-126) U/L Total Protein 4.9 L (6.3-8.2) g/dL Albumin 2.7 L (3.5-5.0) g/dL Lipase (23-300) U/L Diabetes panel 05/03/18 05/04/18 Range/Units 16:37 06:22 Sodium 139 140 (137-145) mmol/L Potassium 4.7 4.5 (3.5-5.1) mmol/L Chloride 106 109 H (98-107) mmol/L Carbon Dioxide 24 27 (22-30) mmol/L BUN 26 H 20 H (7-17) mg/dL Creatinine 1.26 H 1.28 H (0.52-1.04) mg/dL Glucose 196 H 71 L (74-99) mg/dL Calcium 8.9 8.4 (8.4-10.2) mg/dL AST 42 H 26 (14-36) U/L ALT 33 34 (9-52) U/L Alkaline Phosphatase 31 L 21 L (38-126) U/L Total Protein 5.8 L 4.9 L (6.3-8.2) g/dL Albumin 3.4 L 2.7 L (3.5-5.0) g/dL Calcium panel 05/03/18 05/04/18 Range/Units 16:37 06:22 Calcium 8.9 8.4 (8.4-10.2) mg/dL Albumin 3.4 L 2.7 L (3.5-5.0) g/dL Pituitary panel 05/03/18 05/04/18 Range/Units 16:37 06:22 Sodium 139 140 (137-145) mmol/L Potassium 4.7 4.5 (3.5-5.1) mmol/L Chloride 106 109 H (98-107) mmol/L Carbon Dioxide 24 27 (22-30) mmol/L BUN 26 H 20 H (7-17) mg/dL Creatinine 1.26 H 1.28 H (0.52-1.04) mg/dL Glucose 196 H 71 L (74-99) mg/dL Calcium 8.9 8.4 (8.4-10.2) mg/dL Adrenal panel 05/03/18 05/04/18 Range/Units 16:37 06:22 Sodium 139 140 (137-145) mmol/L Potassium 4.7 4.5 (3.5-5.1) mmol/L Chloride 106 109 H (98-107) mmol/L Carbon Dioxide 24 27 (22-30) mmol/L BUN 26 H 20 H (7-17) mg/dL Creatinine 1.26 H 1.28 H (0.52-1.04) mg/dL Glucose 196 H 71 L (74-99) mg/dL Calcium 8.9 8.4 (8.4-10.2) mg/dL Total Bilirubin 0.5 0.3 (0.2-1.3) mg/dL AST 42 H 26 (14-36) U/L ALT 33 34 (9-52) U/L Alkaline Phosphatase 31 L 21 L (38-126) U/L Total Protein 5.8 L 4.9 L (6.3-8.2) g/dL Albumin 3.4 L 2.7 L (3.5-5.0) g/dL Assessment and Plan Assessment: Bleeding ileostomy, Crohn's, hep C, thrombocytopenia Plan: No plans for acute surgical intervention. Patient see Dr. Barakat when he returns to [facility] about possible argon beam coagulation. GI is following the patient. Appreciate recommendations. Transfuse when necessary.
[2018-05-04] MEDS: FERROUS SULFATE 325 MG TAB PO SCH (11:01)
[2018-05-04] MEDS: MAGNESIUM OXIDE 400 MG TAB PO SCH (11:01)
[2018-05-04] MEDS: predniSONE 20 MG TAB PO SCH (11:01)
[2018-05-04] MEDS: FOLIC ACID 1 MG TAB PO SCH (11:01)
[2018-05-04] MEDS: LINAGLIPTIN 5 MG TABLET PO SCH (11:01)
[2018-05-04] MEDS: ALPRAZolam 1 MG TAB PO PRN (14:44)
[2018-05-04] MEDS: SODIUM CHLORIDE 0.9% 1,000 ML IV SCH (19:32)
--- NOTE | 2018-05-05 00:09 | P.CONS ---
History of Present Illness - Reason for Consult Consult date: 05/04/18 Leading ostomy Requesting physician: Antonio Kothari - Chief Complaint Bleeding from ostomy - History of Present Illness Very pleasant 62-year-old female with multiple medical comorbidities including hepatitis C status post successful treatment with her bony, Crohn's disease status post ileocolectomy with ileostomy formation, and anxiety who presents to the hospital with complaints of bleeding around her ostomy. The patient reports that she has had multiple episodes of bleeding around the ostomy site in the past. She has been seen by the surgical service and has received treatment with coagulation therapy in the past with successful hemostasis. She reports that she is currently scheduled for a repeat procedure next week. She was recently seen at the hospital for similar complaints and was home for 1 day before presenting back with complaints of recurrent bleeding from the ostomy She reports that bleeding has occurred in the past due to varices around the ostomy site. She reports that she believes that this is secondary to irritation of the site with increased activity. She also has a history of ileocolonic Crohn's for which she had ileocolectomy with no further symptoms since his surgery. She does report that she has not been on biologic therapy in the past and was diagnosed over 40 years ago. She continues to be on steroid therapy, as she reports that long-standing history of treatment with steroids has left her dependent in that she has seen endocrinology in evaluation of this in the past and has been unable to be weaned from the steroids. She denies any abdominal pain. She does report that since presenting to the hospital bleeding from the varices is stopped. She notes that her hepatitis C was successfully treated approximately 3 years ago with a 12 week course of her bony. She notes that the hepatitis C was contracted from a blood transfusion. She denies any other acute complaints at this time. Review of Systems REVIEW OF SYSTEMS: CARDIO: Denies any chest pain or palpitations. PULMONARY: Denies any shortness of breath or wheezing. GENITOURINARY: No dysuria or hematuria. MUSCULOSKELETAL: No weakness reported. SKIN: Denies any new rashes or lesions, jaundice or pallor. PSYCHIATRIC: Denies any depression or anxiety. NEUROLOGY: Denies headache, denies any new focal deficits. EARS: No tinnitus, discharge or new hearing loss. NOSE: No discharge or congestion. EYES: No pain in eyes or change in vision. CONSTITUTIONAL: No recent weight loss. No fever, chills, night sweats. Past Medical History Past Medical History: Diabetes Mellitus, GERD/Reflux, Liver Disease, Osteoarthritis (OA) Additional Past Medical History / Comment(s): crohns, hx. hep c-currently in remission, past hx. sepsis & ards 2007, has ileostomy, hx. kidney stones, hx. of infection in hip-was on antibiotics, has spacer in, hx. anemia related to intermittent bleeding from stoma, has past hx. elevated heart rate, states is related to when she is anemic,pressure sore not open (to lt great toe) sees dr villafuerte, uti low platelets septicemia per pt History of Any Multi-Drug Resistant Organisms: MRSA Year Discovered:: 04/25/16 MDRO Source:: Blood & Right Hip Past Surgical History: Appendectomy, Bowel Resection, Cholecystectomy, Hernia Repair, Hysterectomy, Tubal Ligation Additional Past Surgical History / Comment(s): ileostomy 2009 WITH 3-4 RE- SUTURING EPISODES RELATED TO BLEEDING, ileoscopy w/argon gas coagulation of stoma, 10-22-16 revison rt toal hip arthroplasty Past Anesthesia/Blood Transfusion Reactions: No Reported Reaction Past Psychological History: Anxiety Smoking Status: Former smoker Past Alcohol Use History: None Reported Past Drug Use History: None Reported - Past Family History Mother Family Medical History: CVA/TIA, Diabetes Mellitus Additional Family Medical History / Comment(s): Mother at age 88 from CVA. Sister(s) Additional Family Medical History / Comment(s): Patient has 3 sisters with no major medical problems. Patient does not have any brothers. Patient has 2 sons with no major medical problems. Father Family Medical History: Cancer Additional Family Medical History / Comment(s): MOTHER- DIABETES Medications and Allergies Home Medications Medication Instructions Recorded Confirmed Type Linagliptin [Tradjenta] 5 mg PO DAILY 07/11/16 05/03/18 History Mirtazapine [Remeron] 15 mg PO HS 06/11/17 05/03/18 History predniSONE 20 mg PO DAILY 06/11/17 05/03/18 History Sertraline HCl [Zoloft] 100 mg PO HS 07/26/17 05/03/18 History ALPRAZolam [Xanax] 1 mg PO TID PRN 01/29/18 05/03/18 History Ergocalciferol (Vitamin D2) 50,000 unit PO SA 01/29/18 05/03/18 History [Vitamin D2] Calcitriol 0.25 mcg PO Q30D 05/01/18 05/03/18 History Cranberry Fruit Concentrate [Azo 500 mg PO BID 05/01/18 05/03/18 History Cranberry] Ferrous Sulfate [Iron (65 MG 325 mg PO BID 05/01/18 05/03/18 History Elemental)] Folic Acid 0.4 mg PO DAILY 05/01/18 05/03/18 History Loperamide HCl [Imodium A-D] 2 mg PO DAILY PRN 05/01/18 05/03/18 History Magnesium 200 mg PO DAILY 05/03/18 05/03/18 History Allergies Allergy/AdvReac Type Severity Reaction Status Date / Time adhesive tape Allergy Severe Rash/Hives/Skin Verified 05/03/18 16:31 Peeling Quinolones Allergy Severe Anaphylaxis Verified 05/03/18 16:31 /Swelling levofloxacin [From Levaquin] Allergy Swelling Verified 05/03/18 16:31 Iodinated Contrast- Oral and AdvReac Severe Chest Pain Verified 05/03/18 16:31 IV Dye [Iodinated Contrast Media - IV Dye] NSAIDS (Non-Steroidal AdvReac Severe GI Verified 05/03/18 16:31 Anti-Inflamma Bleeding/Liver Damage warfarin [From Coumadin] AdvReac Severe Abdominal Verified 05/03/18 16:31 Pain Physical Exam Vitals: Vital Signs Temp Pulse Pulse Pulse Resp BP BP 05/04/18 19:49 98.2 F 99 97 16 149/77 05/04/18 19:48 98.2 F 97 16 149/77 05/04/18 17:58 98.4 F 98 18 156/87 05/04/18 17:36 98.6 F 90 18 134/79 05/04/18 17:28 98.6 F 90 18 134/79 05/04/18 17:18 98.4 F 87 18 125/77 05/04/18 16:11 97.9 F 90 18 123/74 05/04/18 16:10 18 05/04/18 16:09 98.4 F 88 18 127/77 05/04/18 14:39 97.8 F 93 18 127/73 05/04/18 14:09 97.7 F 91 16 151/76 05/04/18 13:59 98.8 F 88 18 139/74 05/04/18 07:00 98.5 F 77 18 107/61 05/03/18 23:39 97.7 F 84 136/82 Pulse Ox 05/04/18 19:49 05/04/18 19:48 05/04/18 17:58 05/04/18 17:36 98 05/04/18 17:28 05/04/18 17:18 05/04/18 16:11 96 05/04/18 16:10 05/04/18 16:09 97 05/04/18 14:39 05/04/18 14:09 05/04/18 13:59 98 05/04/18 07:00 98 05/03/18 23:39 98 Intake and Output 05/04/18 05/04/18 05/05/18 14:59 22:59 06:59 Intake Total 0 370 Output Total 300 Balance -300 370 Intake: Intake, IV Titration 60 Amount Sodium Chloride 0.9% 1, 60 000 ml @ 20 mls/hr IV . Q24H [facility] Rx#:[id number] Blood Product 0 310 Rc As-1 Unit 0 310 [id number] Rc As-3 Unit 0 [id number] Output: Stool 300 Other: # Voids 2 On physical examination, patient appears comfortable in no apparent distress. HEAD: Normocephalic, atraumatic. EYES: No scleral icterus. No conjunctival injection. MOUTH: No lesions, tongue midline. NECK: Trachea midline, no gross abnormalities. CHEST: Clear to auscultation with no wheezing or rhonchi appreciated. HEART: Regular rate and rhythm. ABDOMEN: Soft, obese. Ileostomy appears healthy with blood noted in patient's bag. Bowel sounds are positive. No organomegaly. No guarding or rigidity. EXTREMITIES: No pedal edema. SKIN: No rashes, no jaundice. NEUROLOGIC: Alert and oriented x3. No focal deficits. Results CBC & Chem 7: 05/04/18 06:22 05/04/18 06:22 Labs: Abnormal Lab Results - Last 24 Hours (Table) 05/04/18 05/04/18 05/04/18 Range/Units 06:22 06:22 10:09 RBC 1.89 L (3.80-5.40) m/uL Hgb 6.6 L* D (11.4-16.0) gm/dL Hct 21.2 L (34.0-46.0) % MCV 111.9 H (80.0-100.0) fL RDW 16.2 H (11.5-15.5) % Plt Count 96 L (150-450) k/uL Chloride 109 H (98-107) mmol/L BUN 20 H (7-17) mg/dL Creatinine 1.28 H (0.52-1.04) mg/dL Glucose 71 L (74-99) mg/dL Alkaline Phosphatase 21 L (38-126) U/L Total Protein 4.9 L (6.3-8.2) g/dL Albumin 2.7 L (3.5-5.0) g/dL Crossmatch See Detail Assessment and Plan (1) Anemia Narrative/Plan: Anemia of acute blood loss due to bleeding from ostomy. Current Visit: Yes Status: Acute Code(s): D64.9 - ANEMIA, UNSPECIFIED SNOMED Code(s): 515782274 (2) GI bleed Narrative/Plan: As above. Current Visit: Yes Status: Acute Code(s): K92.2 - GASTROINTESTINAL HEMORRHAGE, UNSPECIFIED SNOMED Code(s): 26724173 (3) Crohns disease Narrative/Plan: Over 40 year history of ileocolonic Crohn's, status post ileal colectomy with ileostomy formation. The patient is currently steroid dependent. Current Visit: No Status: Acute Code(s): K50.90 - CROHN'S DISEASE, UNSPECIFIED, WITHOUT COMPLICATIONS SNOMED Code(s): 64939509 (4) Hepatitis C Narrative/Plan: Patient is status post successful treatment with her Volney, for 12 weeks. Current Visit: No Status: Acute Code(s): B19.20 - UNSPECIFIED VIRAL HEPATITIS C WITHOUT HEPATIC COMA SNOMED Code(s): 91450052 Plan: Supportive care Okay for diet Surgical service following Plan is for patient to follow up in Hospital for possible coagulation therapy Continue to monitor hemoglobin and transfuse as needed We'll continue to follow Thank you for allowing us to participate in the care of this patient
[2018-05-05] MEDS: SERTRALINE 100 MG TAB PO SCH ×2 (00:28→23:52)
[2018-05-05] MEDS: MIRTAZAPINE 15 MG TAB PO SCH ×2 (00:29→23:51)
[2018-05-05] MEDS: ALPRAZolam 1 MG TAB PO PRN ×3 (00:29→23:58)
[2018-05-05] MEDS: FERROUS SULFATE 325 MG TAB PO SCH ×3 (00:29→23:52)
[2018-05-05] MEDS: SODIUM CHLORIDE 0.9% 1,000 ML IV SCH (00:30)
[2018-05-05] MEDS: MAGNESIUM OXIDE 400 MG TAB PO SCH (08:36)
[2018-05-05] MEDS: FOLIC ACID 1 MG TAB PO SCH (08:36)
[2018-05-05] MEDS: predniSONE 20 MG TAB PO SCH (08:36)
[2018-05-05] MEDS: LINAGLIPTIN 5 MG TABLET PO SCH (08:36)
[2018-05-05 08:48] LABS: Anisocytosis Slight; Basophils % (A) 0 %; Eosinophils # (A) 0.2 k/uL (0-0.7); Eosinophils % (A) 2 %; HCT 33.9 % (34.0-46.0); Hypochromasia Slight; Lymphocytes # (A) 1.6 k/uL (1.0-4.8); Lymphocytes % (A) 22 %; MCH 33.6 pg (25.0-35.0); MCHC 32.2 g/dL (31.0-37.0); Macrocytosis Marked; Mean Platelet Volume 7.2; Monocytes # (A) 0.4 k/uL (0-1.0); Monocytes % (A) 6 %; Neutrophils # (A) 4.8 k/uL (1.3-7.7); Neutrophils % (A) 68 %; Platelet Count 112 k/uL (150-450); Poikilocytosis Slight; RBC 3.25 m/uL (3.80-5.40); RDW 19.2 % (11.5-15.5); WBC 7.1 k/uL (3.8-10.6)
[2018-05-05 08:55] LABS: HGB 10.9 gm/dL (11.4-16.0)
[2018-05-05 08:56] LABS: MCV 104.2 fL (80.0-100.0)
[2018-05-05 09:04] LABS: Albumin 3.4 g/dL (3.5-5.0); Calcium 8.8 mg/dL (8.4-10.2); Potassium 4.3 mmol/L (3.5-5.1); Total Bilirubin 0.5 mg/dL (0.2-1.3); Total Protein 5.9 g/dL (6.3-8.2)
[2018-05-05 11:16] LABS: Polychromasia Present
--- NOTE | 2018-05-05 14:53 | P.PN ---
Subjective Progress Note Date: 05/05/18 This is a 62-year-old female patient of Dr. Shrestha with past medical history of Crohn's disease status post ileostomy, type 2 diabetes, hepatitis C liver disease, osteoarthritis history of kidney stones, chronic anemia chronic anemia, history of MRSA, was just discharged from the hospital after she was admitted under the surgical service for stomal bleeding and was seen by Kameron Brandt and there was no intervention attempted, patient came back to the ER today with same complaints and the ER physician felt that she needed to be admitted under medical service and consult GI and surgery. Her hemoglobin was stable in the range of 8.2 and she appeared at baseline. 05/04: Patient sitting up in bed in no apparent distress she appears a bit dizzy however which his initial spotting no abdominal pain she has no blood in the ileostomy bag, hemoglobin did drop to 6.6, type and cross and transfuse 2 units of packed red blood cells. 05/05: Patient has been seen by Dr. Aguiar which is cleared patient for diet and plan for follow-up in the hospital for possible coagulation therapy. Patient has also been seen and followed by Dr. wadsworth for Dr. Barakat. No surgical intervention at this time planned. Dr. Barakat may perform argon beam coagulation when he returns.awaiting Dr. Barakat evaluation. Patient has not had any further bleeding but she is avoiding getting up to the bathroom as she is afraid that this will trigger the bleeding. She has been afebrile and vital signs are stable. Repeat hemoglobin this morning is 10.9 after 2 units of packed RBCs transfused yesterday. Platelet count is 112, creatinine 1.3. Review Of Systems: Constitutional: No fever, no chills, no night sweats. No weight change. No weakness, fatigue or lethargy. No daytime sleepiness. EENT: No headache. No blurred vision or double vision, no loss of vision. No loss of Hearing, no ringing in the ears, no dizziness. No nasal drainage or congestion. No epistaxis. No sore throat. Lungs: No shortness of breath, cough, no sputum production. No wheezing. Cardiovascular: No chest pain, no lower extremity edema. No palpitations. No paroxysmal nocturnal dyspnea. No orthopnea. No lightheadedness or dizziness. No syncopal episodes. Abdominal: No abdominal pain. No nausea, vomiting. No diarrhea. No constipation. No bloody or tarry stools.. No loss of appetite.no blood from stoma Genitourinary: No dysuria, increased frequency, urgency. No urinary retention. Musculoskeletal: No myalgias. No muscle weakness, no gait dysfunction, no frequent falls. No back pain. No neck pain. Integumentary: No wounds, no lesions. No rash or pruritus. No unusual bruising. No change in hair or nails. Neurologic: No aphasia. No facial droop. No change in mentation. No head injury. No headache. No paralysis. No paresthesia. Psychiatric: No depression. No anxiety. No mood swings. Endocrine: No abnormal blood sugars. No weight change. No excessive sweating or thirst. No cold intolerance. No weight change. Objective - Vital Signs Vital signs: Vital Signs Temp 97.7 F 05/05/18 07:00 Pulse 71 05/05/18 07:00 Resp 16 05/05/18 07:00 BP 137/77 05/05/18 07:00 Pulse Ox 96 05/05/18 07:00 Intake & Output 05/04/18 05/05/18 05/05/18 18:59 06:59 18:59 Intake Total 310 200 Output Total 300 Balance 10 200 Intake: Intake, IV Titration 200 Amount Sodium Chloride 0.9% 1, 200 000 ml @ 20 mls/hr IV . Q24H [facility] Rx#:[id number] Blood Product 310 0 Rc As-1 Unit 310 [id number] Rc As-3 Unit 0 0 [id number] Output: Stool 300 Other: # Voids 2 - Exam General appearance: average body habitus, no acute distress - EENT Eyes: anicteric sclerae, EOMI, PERRLA, no ptosis, no scleral icterus, normal appearance ENT: hearing grossly normal, NA/AT, normal oropharynx Ears: bilateral: normal - Neck Neck: no lymphadenopathy, normal ROM, no rigidity, no stridor, no thyromegaly Carotids: bilateral: upstroke normal Thyroid: bilateral: normal size - Respiratory Respiratory: bilateral: diminished, negative: dullness, rales, rhonchi, wheezing , prolonged expiration, prolonged inspiration - Cardiovascular Rhythm: regular Heart sounds: normal: S1, S2 Abnormal Heart Sounds: systolic murmur - Gastrointestinal General gastrointestinal: normal bowel sounds, soft, tenderness (Illeostomy), no active bleeding - Integumentary Integumentary: normal, normal turgor - Neurologic Neurologic: CNII-XII intact - Musculoskeletal Musculoskeletal: generalized weakness, strength equal bilaterally - Psychiatric Psychiatric: A&O x's 3, appropriate affect, intact judgment & insight - Labs CBC & Chem 7: 05/05/18 07:43 05/05/18 07:43 Labs: Abnormal Lab Results - Last 24 Hours (Table) 05/04/18 Range/Units 10:09 Crossmatch See Detail Assessment and Plan Plan: 1. Stomal bleed. we will monitor hemoglobin, patient likely will see Dr. Barakat on Saturday morning for possible laser procedure. 2. Acute blood loss anemia. Type and cross and transfuse 2 units of packed cells. will monitor HGB in 24 h. 3. Type 2 diabetes - insulin sliding scale and Tradjenta 5 mg orally daily. 7. Hepatitis C in remission - stable . 8. Crohn's disease status post ileostomy in 2007 - no blood in the ileostomy, hemoglobin stable. Continue prednisone 20 mg daily 9. Generalized anxiety disorder and recurrent depression . we will continue with sertraline, xanax and remeron. 10. H/O hypertension. off Rx . 11. GI prophylaxis prophylaxis. will continue with PPI. 12. DVT prophylaxis. will continue with Knee-high Edilberto hose. 13. Chronic kidney disease stage 3. stable we will monitor CMP, we will continue with Rocaltrol. Discharge plan: Return home Impression and plan of care have been directed as dictated by the signing physician. Glenis Hernandez nurse practitioner acting as scribe for signing physician.
[2018-05-06] MEDS: predniSONE 20 MG TAB PO SCH (08:56)
[2018-05-06] MEDS: MAGNESIUM OXIDE 400 MG TAB PO SCH (08:56)
[2018-05-06] MEDS: FERROUS SULFATE 325 MG TAB PO SCH ×2 (08:56→23:54)
[2018-05-06] MEDS: LINAGLIPTIN 5 MG TABLET PO SCH (08:57)
[2018-05-06] MEDS: FOLIC ACID 1 MG TAB PO SCH (08:57)
[2018-05-06] MEDS: ALPRAZolam 1 MG TAB PO PRN ×2 (09:08→23:54)
--- NOTE | 2018-05-06 12:18 | P.PN ---
Progress Note - Text Progress Note Date: 05/06/18 The patient continues to have evidence of bleeding from her ileostomy stoma. She had some bright red blood per the chart noted in her bag. This morning. His symptoms of bleeding when she is up and about. The blood is usually bright red. She's had bleeding almost every day since admission. Did require 2 units of packed cells over the last week. She had good result with argon gas coagulation about a year and a half ago with intermittent bleeding since then but nothing significant enough that she required hospitalization or transfusions until now. Ostomy is otherwise functioning well. Was noted on previous exams to have slight stricture of the stoma to the point where it centered difficult to well admit the examining finger probably from the chronic irritation procedures however it has not restricted activity functionality of the stoma. On examination she is awake alert cheerful in no distress. May be slightly pale. Vitals are good. Abdomen is soft midline scar well-healed. Stoma in the right upper quadrant. No active bleeding at this time. There is brown stool in the bag. Hemoglobin is stable. Impression continued intermittent bleeding from the ileostomy stoma in the face of cirrhosis with hep C hepatitis and varices. Crohn's disease probably involving the terminal ileum and stoma site is well making her more prone to bleeding. Mild thrombocytopenia. Recommendation in view of continued bleeding we'll attempt argon gas coagulation again. I did explain to her increased incidence for stricture formation. 2 high risk for any major surgical intervention at this time particularly in view of her multiple medical issues and cirrhosis.
[2018-05-06 12:38] LABS: Anisocytosis Slight; HCT 34.8 % (34.0-46.0); HGB 11.3 gm/dL (11.4-16.0); Hypochromasia Slight; MCH 34.2 pg (25.0-35.0); MCHC 32.6 g/dL (31.0-37.0); MCV 104.8 fL (80.0-100.0); Macrocytosis Marked; Platelet Count 121 k/uL (150-450); RBC 3.32 m/uL (3.80-5.40); RDW 19.5 % (11.5-15.5); WBC 9.3 k/uL (3.8-10.6)
[2018-05-06 12:49] LABS: Calcium 9.3 mg/dL (8.4-10.2); Potassium 4.7 mmol/L (3.5-5.1)
--- NOTE | 2018-05-06 12:52 | P.PN ---
Subjective Progress Note Date: 05/06/18 Principal diagnosis: anemia and GI bleed presently no active bleeding from her ostomy. She is scheduled for endoscopy tomorrow with argon plasma coagulation with general surgery. 1110.9. She's received 2 units of blood. Objective - Vital Signs Vital signs: Vital Signs Temp 97.6 F 05/06/18 07:00 Pulse 62 05/06/18 07:00 Resp 16 05/06/18 07:00 BP 130/75 05/06/18 07:00 Pulse Ox 98 05/06/18 07:00 Intake & Output 05/05/18 05/06/18 05/06/18 18:59 06:59 18:59 Intake Total 540 300 Output Total 300 Balance 240 300 Intake: Intake, IV Titration 140 300 Amount Sodium Chloride 0.9% 1, 140 300 000 ml @ 20 mls/hr IV . Q24H [facility] Rx#:[id number] Oral 400 Output: Stool 300 Other: # Voids 1 - Exam General appearance: The patient is alert, oriented, in no acute distress. HET: Head is normocephalic and atraumatic. Pupils are equal and reactive. Oropharynx is clear without lesions. Neck: Supple without lymphadenopathy. Trachea midline. Heart: S1 S2. Regular rate and rhythm. Lungs: No crackles or wheezes are heard. Abdomen: Soft, nontender, nondistended with bowel sounds. right upper quadrant stoma pink with green-brown stool in bag.No peritoneal signs. No palpable organomegaly or masses. Extremities: Normal skin color and turgor. No cyanosis, rash, ulceration, clubbing, or edema. Radial and pedal pulses are 2/4 bilaterally. Neurological: No focal deficits. Strength and sensation are grossly intact. - Labs CBC & Chem 7: 05/06/18 12:05 05/06/18 12:05 Labs: Abnormal Lab Results - Last 24 Hours (Table) 05/06/18 05/06/18 Range/Units 12:05 12:05 RBC 3.32 L (3.80-5.40) m/uL Hgb 11.3 L (11.4-16.0) gm/dL MCV 104.8 H (80.0-100.0) fL RDW 19.5 H (11.5-15.5) % Plt Count 121 L (150-450) k/uL BUN 23 H (7-17) mg/dL Creatinine 1.19 H (0.52-1.04) mg/dL Glucose 115 H (74-99) mg/dL Assessment and Plan (1) Anemia Narrative/Plan: acute blood loss due to bleeding from ostomy Current Visit: Yes Status: Acute Code(s): D64.9 - ANEMIA, UNSPECIFIED SNOMED Code(s): 034576510 (2) GI bleed Current Visit: Yes Status: Acute Code(s): K92.2 - GASTROINTESTINAL HEMORRHAGE, UNSPECIFIED SNOMED Code(s): 83797955 (3) Crohns disease Current Visit: No Status: Chronic Code(s): K50.90 - CROHN'S DISEASE, UNSPECIFIED, WITHOUT COMPLICATIONS SNOMED Code(s): 62974838 (4) Hepatitis C Narrative/Plan: status post antiviral treatment Current Visit: No Status: Chronic Code(s): B19.20 - UNSPECIFIED VIRAL HEPATITIS C WITHOUT HEPATIC COMA SNOMED Code(s): 50051441 Plan: 1. Ileoscopy with APC scheduled tomorrow with general surgery. 2. Continue to monitor CBC daily. Assessment and plan a care discussed with Dr. Pearson
--- NOTE | 2018-05-06 14:25 | P.PN ---
Subjective Progress Note Date: 05/06/18 This is a 62-year-old female patient of Dr. Shrestha with past medical history of Crohn's disease status post ileostomy, type 2 diabetes, hepatitis C liver disease, osteoarthritis history of kidney stones, chronic anemia chronic anemia, history of MRSA, was just discharged from the hospital after she was admitted under the surgical service for stomal bleeding and was seen by Kameron Brandt and there was no intervention attempted, patient came back to the ER today with same complaints and the ER physician felt that she needed to be admitted under medical service and consult GI and surgery. Her hemoglobin was stable in the range of 8.2 and she appeared at baseline. 05/04: Patient sitting up in bed in no apparent distress she appears a bit dizzy however which his initial spotting no abdominal pain she has no blood in the ileostomy bag, hemoglobin did drop to 6.6, type and cross and transfuse 2 units of packed red blood cells. 05/05: Patient has been seen by Dr. Aguiar which is cleared patient for diet and plan for follow-up in the hospital for possible coagulation therapy. Patient has also been seen and followed by Dr. wadsworth for Dr. Barakat. No surgical intervention at this time planned. Dr. Barakat may perform argon beam coagulation when he returns.awaiting Dr. Barakat evaluation. Patient has not had any further bleeding but she is avoiding getting up to the bathroom as she is afraid that this will trigger the bleeding. She has been afebrile and vital signs are stable. Repeat hemoglobin this morning is 10.9 after 2 units of packed RBCs transfused yesterday. Platelet count is 112, creatinine 1.3. 05/06: Awaiting Dr. Barakat evaluation. Hemoglobin today is 11.3 and platelet count 121. Patient does have black liquid stool in her ostomy. She denies any abdominal pain. She did get up to the bathroom and was feeling dizzy and faint feeling and had to sit down. Vital signs are stable and patient has been afebrile, pulse ox 90% on room air. Review Of Systems: Constitutional: No fever, no chills, no night sweats. No weight change. No weakness, fatigue or lethargy. No daytime sleepiness. EENT: No headache. No blurred vision or double vision, no loss of vision. No loss of Hearing, no ringing in the ears, no dizziness. No nasal drainage or congestion. No epistaxis. No sore throat. Lungs: No shortness of breath, cough, no sputum production. No wheezing. Cardiovascular: No chest pain, no lower extremity edema. No palpitations. No paroxysmal nocturnal dyspnea. No orthopnea. No lightheadedness or dizziness. No syncopal episodes. Abdominal: No abdominal pain. No nausea, vomiting. No diarrhea. No constipation. + bloody or tarry stools. No loss of appetite.no blood from stoma Genitourinary: No dysuria, increased frequency, urgency. No urinary retention. Musculoskeletal: No myalgias. No muscle weakness, no gait dysfunction, no frequent falls. No back pain. No neck pain. Integumentary: No wounds, no lesions. No rash or pruritus. No unusual bruising. No change in hair or nails. Neurologic: No aphasia. No facial droop. No change in mentation. No head injury. No headache. No paralysis. No paresthesia. Psychiatric: No depression. No anxiety. No mood swings. Endocrine: No abnormal blood sugars. No weight change. No excessive sweating or thirst. No cold intolerance. Objective - Vital Signs Vital signs: Vital Signs Temp 97.6 F 05/06/18 07:00 Pulse 62 05/06/18 07:00 Resp 16 05/06/18 07:00 BP 130/75 05/06/18 07:00 Pulse Ox 98 05/06/18 07:00 Intake & Output 05/05/18 05/06/18 05/06/18 18:59 06:59 18:59 Intake Total 540 300 Output Total 300 Balance 240 300 Intake: Intake, IV Titration 140 300 Amount Sodium Chloride 0.9% 1, 140 300 000 ml @ 20 mls/hr IV . Q24H DARIA Rx#:[id number] Oral 400 Output: Stool 300 Other: # Voids 1 - Exam General appearance: average body habitus, no acute distress. Patient is resting in bed. - EENT Eyes: anicteric sclerae, EOMI, PERRLA, no ptosis, no scleral icterus, normal appearance ENT: hearing grossly normal, NA/AT, normal oropharynx Ears: bilateral: normal - Neck Neck: no lymphadenopathy, normal ROM, no rigidity, no stridor, no thyromegaly Carotids: bilateral: upstroke normal Thyroid: bilateral: normal size - Respiratory Respiratory: bilateral: diminished, negative: dullness, rales, rhonchi, wheezing , prolonged expiration, prolonged inspiration - Cardiovascular Rhythm: regular Heart sounds: normal: S1, S2 Abnormal Heart Sounds: systolic murmur - Gastrointestinal General gastrointestinal: normal bowel sounds, soft, tenderness (Illeostomy), no active bleeding - Integumentary Integumentary: normal, normal turgor - Neurologic Neurologic: CNII-XII intact - Musculoskeletal Musculoskeletal: generalized weakness, strength equal bilaterally - Psychiatric Psychiatric: A&O x's 3, appropriate affect, intact judgment & insight - Labs CBC & Chem 7: 05/06/18 12:05 05/06/18 12:05 Labs: Abnormal Lab Results - Last 24 Hours (Table) 05/05/18 Range/Units 07:43 RBC 3.25 L (3.80-5.40) m/uL Hgb 10.9 L D (11.4-16.0) gm/dL Hct 33.9 L (34.0-46.0) % MCV 104.2 H D (80.0-100.0) fL RDW 19.2 H (11.5-15.5) % Plt Count 112 L (150-450) k/uL Assessment and Plan Plan: 1. Stomal bleed. we will monitor hemoglobin, patient likely will see Dr. Barakat today for possible laser procedure. 2. Acute blood loss anemia. Type and cross and transfuse 2 units of packed cells. will monitor HGB in 24 h. 3. Type 2 diabetes - insulin sliding scale and Tradjenta 5 mg orally daily. 7. Hepatitis C in remission - stable . 8. Crohn's disease status post ileostomy in 2007 - no blood in the ileostomy, hemoglobin stable. Continue prednisone 20 mg daily 9. Generalized anxiety disorder and recurrent depression . we will continue with sertraline, xanax and remeron. 10. H/O hypertension. off Rx . 11. GI prophylaxis prophylaxis. will continue with PPI. 12. DVT prophylaxis. will continue with Knee-high Edilberto hose. 13. Chronic kidney disease stage 3. stable we will monitor CMP, we will continue with Rocaltrol. Discharge plan: Return home Impression and plan of care have been directed as dictated by the signing physician. Glenis Hernandez nurse practitioner acting as scribe for signing physician.
[2018-05-06] MEDS: SODIUM CHLORIDE 0.9% 1,000 ML IV SCH (17:35)
[2018-05-06] MEDS: MIRTAZAPINE 15 MG TAB PO SCH (23:54)
[2018-05-06] MEDS: SERTRALINE 100 MG TAB PO SCH (23:54)
[2018-05-07 07:23] VITALS: RESP 16
[2018-05-07 08:19] LABS: Anisocytosis Slight; HCT 33.5 % (34.0-46.0); HGB 10.6 gm/dL (11.4-16.0); Hypochromasia Slight; MCH 33.9 pg (25.0-35.0); MCHC 31.6 g/dL (31.0-37.0); MCV 107.3 fL (80.0-100.0); Macrocytosis Marked; Mean Platelet Volume 6.9; Platelet Count 113 k/uL (150-450); RBC 3.12 m/uL (3.80-5.40); RDW 19.3 % (11.5-15.5); WBC 7.7 k/uL (3.8-10.6)
[2018-05-07] MEDS: LINAGLIPTIN 5 MG TABLET PO SCH (09:01)
[2018-05-07] MEDS: predniSONE 20 MG TAB PO SCH (09:01)
[2018-05-07] MEDS: FERROUS SULFATE 325 MG TAB PO SCH (09:01)
[2018-05-07] MEDS: FOLIC ACID 1 MG TAB PO SCH (09:01)
[2018-05-07] MEDS: MAGNESIUM OXIDE 400 MG TAB PO SCH (09:01)
[2018-05-07] MEDS ORDERED: PROPOFOL 10 MG/ML 20 ML VIAL IV ONE (11:09)
[2018-05-07] MEDS ORDERED: LIDOCAINE 1% INJ 10MG/ML (20 ML MDV) ONE (11:09)
[2018-05-07] MEDS ORDERED: fentaNYL (PF) 50 MCG/ML 2 ML AMP ONE (11:09)
[2018-05-07] MEDS ORDERED: IV FLUID CONTINUATION 1,000 ML IV ONE (11:10)
--- NOTE | 2018-05-07 12:12 | P.PCN ---
Date of Procedure: 05/07/18 Preoperative Diagnosis: GI bleed through ileostomy Postoperative Diagnosis: GI bleed from ileostomy stoma with excessive granulation tissue and possible Crohn's on the stoma Procedure(s) Performed: Ileoscopy and argon gas coagulation of the ileostomy stoma Anesthesia: MAC Surgeon: Anuel Barakat Estimated Blood Loss (ml): 5 Pathology: none sent Condition: stable Disposition: floor Indications for Procedure: The patient is a 62-year-old white female who has had recurrent episodes of bleeding from her ileostomy stoma. Has been known to have bleeding from the actual stoma site itself and its had the multiple different treatments including Ambrosio coagulation the last time this being performed was about a year and a half ago. She developed recurrent episodes of bleeding over the last week or so. Conservative measures were not successful. Therefore reevaluation by ileoscopy and possible argon gas coagulation was again recommended. She is at very high risk for surgical intervention particularly of the resection or revision or replacement of the stoma to another site of in view of multiple medical issues including cirrhosis of liver hepatitis C varices etc. He was explained to her increased risk for stricture of the stoma with multiple treatments. Patient had had a previous total colectomy with ileostomy for Crohn's disease. Operative Findings: Obvious bleeding from the stoma site right at the junction with the skin for about 1-1/2 cm proximal to the mucocutaneous junction. There appeared to be excessive granulation tissue friability and easy contact bleeding. There were a few telangiectasia within about 2 cm from the mucocutaneous junction the mucosa proximally entirely normal . There was no blood in the lumen of the small bowel itself.. Description of Procedure: With the patient supine the stoma appliance was removed completely. The stoma itself especially around the Ileo cutaneous junction was quite friable and bled easily on contact. There was mild stenosis off the stoma although it easily admitted the little finger but the index finger was introduced eventually with dilatation. The pediatric scope was then introduced and advanced to about 15 cm from the ileal cutaneous junction. There was no blood in the lumen. There was however noted active bleeding from the stoma site itself. This was coagulated with the side port of the argon gas coagulated circumferentially until the bleeding was stopped and the mucosa thoroughly cauterized circumferentially. After period of observation there was no evidence of any bleeding. The stoma appliance was replaced. The patient tolerated the procedure well without any evident complication. The telangiectasia just inside the iliocutaneous junction was also coagulated
--- NOTE | 2018-05-07 13:16 | P.PN ---
Subjective Progress Note Date: 05/07/18 This is a 62-year-old female patient of Dr. Shrestha with past medical history of Crohn's disease status post ileostomy, type 2 diabetes, hepatitis C liver disease, osteoarthritis history of kidney stones, chronic anemia chronic anemia, history of MRSA, was just discharged from the hospital after she was admitted under the surgical service for stomal bleeding and was seen by Kameron Brandt and there was no intervention attempted, patient came back to the ER today with same complaints and the ER physician felt that she needed to be admitted under medical service and consult GI and surgery. Her hemoglobin was stable in the range of 8.2 and she appeared at baseline. 05/04: Patient sitting up in bed in no apparent distress she appears a bit dizzy however which his initial spotting no abdominal pain she has no blood in the ileostomy bag, hemoglobin did drop to 6.6, type and cross and transfuse 2 units of packed red blood cells. 05/05: Patient has been seen by Dr. Aguiar which is cleared patient for diet and plan for follow-up in the hospital for possible coagulation therapy. Patient has also been seen and followed by Dr. wadsworth for Dr. Barakat. No surgical intervention at this time planned. Dr. Barakat may perform argon beam coagulation when he returns.awaiting Dr. Barakat evaluation. Patient has not had any further bleeding but she is avoiding getting up to the bathroom as she is afraid that this will trigger the bleeding. She has been afebrile and vital signs are stable. Repeat hemoglobin this morning is 10.9 after 2 units of packed RBCs transfused yesterday. Platelet count is 112, creatinine 1.3. 05/06: Awaiting Dr. Barkaat evaluation. Hemoglobin today is 11.3 and platelet count 121. Patient does have black liquid stool in her ostomy. She denies any abdominal pain. She did get up to the bathroom and was feeling dizzy and faint feeling and had to sit down. Vital signs are stable and patient has been afebrile, pulse ox 90% on room air. 05/07: Patient has been seen by Dr. Barakat and she is scheduled for ileoscopy with argon gas coagulation of stoma. Repeat hgb 10.6. plan is to monitor patient overnight and possible discharge for tomorrow. Review Of Systems: Constitutional: No fever, no chills, no night sweats. No weight change. No weakness, fatigue or lethargy. No daytime sleepiness. EENT: No headache. No blurred vision or double vision, no loss of vision. No loss of Hearing, no ringing in the ears, no dizziness. No nasal drainage or congestion. No epistaxis. No sore throat. Lungs: No shortness of breath, cough, no sputum production. No wheezing. Cardiovascular: No chest pain, no lower extremity edema. No palpitations. No paroxysmal nocturnal dyspnea. No orthopnea. No lightheadedness or dizziness. No syncopal episodes. Abdominal: No abdominal pain. No nausea, vomiting. No diarrhea. No constipation. + bloody or tarry stools. No loss of appetite.no blood from stoma Genitourinary: No dysuria, increased frequency, urgency. No urinary retention. Musculoskeletal: No myalgias. No muscle weakness, no gait dysfunction, no frequent falls. No back pain. No neck pain. Integumentary: No wounds, no lesions. No rash or pruritus. No unusual bruising. No change in hair or nails. Neurologic: No aphasia. No facial droop. No change in mentation. No head injury. No headache. No paralysis. No paresthesia. Psychiatric: No depression. No anxiety. No mood swings. Endocrine: No abnormal blood sugars. No weight change. No excessive sweating or thirst. No cold intolerance. Objective - Vital Signs Vital signs: Vital Signs Temp 98 F 05/07/18 07:00 Pulse 63 05/07/18 07:00 Resp 16 05/07/18 07:00 BP 126/74 05/07/18 07:00 Pulse Ox 97 05/07/18 07:00 Intake & Output 05/06/18 05/07/18 05/07/18 18:59 06:59 18:59 Intake Total 920 760 Balance 920 760 Intake: Intake, IV Titration 240 760 Amount Sodium Chloride 0.9% 1, 240 760 000 ml @ 20 mls/hr IV . Q24H DARIA Rx#:[id number] Oral 680 Other: # Voids 3 1 - Exam General appearance: average body habitus, no acute distress. Patient is resting in bed. - EENT Eyes: anicteric sclerae, EOMI, PERRLA, no ptosis, no scleral icterus, normal appearance ENT: hearing grossly normal, NA/AT, normal oropharynx Ears: bilateral: normal - Neck Neck: no lymphadenopathy, normal ROM, no rigidity, no stridor, no thyromegaly Carotids: bilateral: upstroke normal Thyroid: bilateral: normal size - Respiratory Respiratory: bilateral: diminished, negative: dullness, rales, rhonchi, wheezing , prolonged expiration, prolonged inspiration - Cardiovascular Rhythm: regular Heart sounds: normal: S1, S2 Abnormal Heart Sounds: systolic murmur - Gastrointestinal General gastrointestinal: normal bowel sounds, soft, tenderness (Illeostomy), no active bleeding - Integumentary Integumentary: normal, normal turgor - Neurologic Neurologic: CNII-XII intact - Musculoskeletal Musculoskeletal: generalized weakness, strength equal bilaterally - Psychiatric Psychiatric: A&O x's 3, appropriate affect, intact judgment & insight - Labs CBC & Chem 7: 05/07/18 07:00 05/06/18 12:05 Labs: Abnormal Lab Results - Last 24 Hours (Table) 05/06/18 05/06/18 05/07/18 Range/Units 12:05 12:05 07:00 RBC 3.32 L 3.12 L (3.80-5.40) m/uL Hgb 11.3 L 10.6 L (11.4-16.0) gm/dL Hct 33.5 L (34.0-46.0) % MCV 104.8 H 107.3 H (80.0-100.0) fL RDW 19.5 H 19.3 H (11.5-15.5) % Plt Count 121 L 113 L (150-450) k/uL BUN 23 H (7-17) mg/dL Creatinine 1.19 H (0.52-1.04) mg/dL Glucose 115 H (74-99) mg/dL Assessment and Plan Plan: 1. Stomal bleed. we will monitor hemoglobin, patient likely will see Dr. Barakat and scheduled for ileoscopy with argon gas coagulation of stoma today. 2. Acute blood loss anemia. Type and cross and transfuse 2 units of packed cells. will monitor HGB in 24 h. 3. Type 2 diabetes - insulin sliding scale and Tradjenta 5 mg orally daily. 7. Hepatitis C in remission - stable . 8. Crohn's disease status post ileostomy in 2007 - no blood in the ileostomy, hemoglobin stable. Continue prednisone 20 mg daily 9. Generalized anxiety disorder and recurrent depression . we will continue with sertraline, xanax and remeron. 10. H/O hypertension. off Rx . 11. GI prophylaxis prophylaxis. will continue with PPI. 12. DVT prophylaxis. will continue with Knee-high Edilberto hose. 13. Chronic kidney disease stage 3. stable we will monitor CMP, we will continue with Rocaltrol. Discharge plan: Return homemost likely tomorrow Impression and plan of care have been directed as dictated by the signing physician. Glenis Hernandez nurse practitioner acting as scribe for signing physician.
[2018-05-07] MEDS: ALPRAZolam 1 MG TAB PO PRN (15:17)
[2018-05-08] MEDS: ALPRAZolam 1 MG TAB PO PRN ×2 (00:09→11:16)
[2018-05-08] MEDS: SERTRALINE 100 MG TAB PO SCH (00:09)
[2018-05-08] MEDS: FERROUS SULFATE 325 MG TAB PO SCH ×2 (00:10→09:44)
[2018-05-08] MEDS: SODIUM CHLORIDE 0.9% 1,000 ML IV SCH (00:10)
[2018-05-08] MEDS: MIRTAZAPINE 15 MG TAB PO SCH (00:10)
[2018-05-08 07:54] VITALS: BP 144/78; PULSE 73; TEMP 97.9
[2018-05-08 09:10] LABS: Anisocytosis Slight; HCT 34.2 % (34.0-46.0); HGB 10.8 gm/dL (11.4-16.0); Hypochromasia Moderate; MCH 34.4 pg (25.0-35.0); MCHC 31.5 g/dL (31.0-37.0); MCV 109.2 fL (80.0-100.0); Macrocytosis Marked; Mean Platelet Volume 7.5; Platelet Count 103 k/uL (150-450); RBC 3.13 m/uL (3.80-5.40); RDW 19.2 % (11.5-15.5); WBC 6.5 k/uL (3.8-10.6)
[2018-05-08 09:20] LABS: Calcium 9.1 mg/dL (8.4-10.2); Potassium 4.1 mmol/L (3.5-5.1)
[2018-05-08] MEDS: MAGNESIUM OXIDE 400 MG TAB PO SCH (09:44)
[2018-05-08] MEDS: predniSONE 20 MG TAB PO SCH (09:44)
[2018-05-08] MEDS: LINAGLIPTIN 5 MG TABLET PO SCH (09:44)
[2018-05-08] MEDS: FOLIC ACID 1 MG TAB PO SCH (09:46)
--- NOTE | 2018-05-08 12:37 | P.DS ---
Providers Date of admission: 05/03/18 18:13 Expected date of discharge: 05/08/18 Attending physician: Antonio Kothari Consults: 05/03/18 18:14 Consult Physician Routine Consulting Provider: Blaze Da Silva Consult Reason/Comments: Bleed from ostomy Do you want consulting provider notified?: Already Contacted 05/03/18 18:15 Consult Physician Routine Consulting Provider: Chele Pearson Consult Reason/Comments: Bleed from ileostomy Do you want consulting provider notified?: Already Contacted Primary care physician: [facility] Course: This is a 62-year-old female patient of Dr. Shrestha with past medical history of Crohn's disease status post ileostomy, type 2 diabetes, hepatitis C liver disease, osteoarthritis history of kidney stones, chronic anemia chronic anemia, history of MRSA, was just discharged from the hospital after she was admitted under the surgical service for stomal bleeding and was seen by Kameron Brandt and there was no intervention attempted, patient came back to the ER today with same complaints and the ER physician felt that she needed to be admitted under medical service and consult GI and surgery. Her hemoglobin was stable in the range of 8.2 and she appeared at baseline. 05/04: Patient sitting up in bed in no apparent distress she appears a bit dizzy however which his initial spotting no abdominal pain she has no blood in the ileostomy bag, hemoglobin did drop to 6.6, type and cross and transfuse 2 units of packed red blood cells. 05/05: Patient has been seen by Dr. Pearson which is cleared patient for diet and plan for follow-up in the hospital for possible coagulation therapy. Patient has also been seen and followed by Dr. da silva for Dr. Barakat. No surgical intervention at this time planned. Dr. Barakat may perform argon beam coagulation when he returns.awaiting Dr. Barakat evaluation. Patient has not had any further bleeding but she is avoiding getting up to the bathroom as she is afraid that this will trigger the bleeding. She has been afebrile and vital signs are stable. Repeat hemoglobin this morning is 10.9 after 2 units of packed RBCs transfused yesterday. Platelet count is 112, creatinine 1.3. 05/06: Awaiting Dr. Barakat evaluation. Hemoglobin today is 11.3 and platelet count 121. Patient does have black liquid stool in her ostomy. She denies any abdominal pain. She did get up to the bathroom and was feeling dizzy and faint feeling and had to sit down. Vital signs are stable and patient has been afebrile, pulse ox 90% on room air. 05/07: Patient has been seen by Dr. Barakat and she is scheduled for ileoscopy with argon gas coagulation of stoma. Repeat hgb 10.6. plan is to monitor patient overnight and possible discharge for tomorrow. 05/08: Patient has brown liquid stool in ostomy bag. No sign of bleeding at this time. Hgb 10.8, BUN 25 and Creatinine 1.30. Patient denies any complaints. No abdominal pain. No nausea or vomiting. Patient is anxious to be discharged home. Discharge diagnoses: 1. Stomal bleed. 2. Acute blood loss anemia. 3. Type 2 diabetes, controlled. 7. Hepatitis C in remission - stable. 8. Crohn's disease status post ileostomy in 2007 9. Generalized anxiety disorder and recurrent depression. 10. H/O hypertension. 11. Chronic kidney disease stage 3. Discharge plan: Return home Impression and plan of care have been directed as dictated by the signing physician. Glenis Hernandez nurse practitioner acting as scribe for signing physician. Patient Condition at Discharge: Good Plan - Discharge Summary Discharge Rx Participant: Yes New Discharge Prescriptions: Continue Linagliptin [Tradjenta] 5 mg PO DAILY Mirtazapine [Remeron] 15 mg PO HS predniSONE 20 mg PO DAILY Sertraline HCl [Zoloft] 100 mg PO HS Ergocalciferol (Vitamin D2) [Vitamin D2] 50,000 unit PO SA ALPRAZolam [Xanax] 1 mg PO TID PRN PRN Reason: Anxiety Folic Acid 0.4 mg PO DAILY Cranberry Fruit Concentrate [Azo Cranberry] 500 mg PO BID Ferrous Sulfate [Iron (65 MG Elemental)] 325 mg PO BID Calcitriol 0.25 mcg PO Q30D Loperamide HCl [Imodium A-D] 2 mg PO DAILY PRN PRN Reason: Diarrhea Magnesium 200 mg PO DAILY Discharge Medication List Linagliptin [Tradjenta] 5 mg PO DAILY 07/11/16 [History] Mirtazapine [Remeron] 15 mg PO HS 06/11/17 [History] predniSONE 20 mg PO DAILY 06/11/17 [History] Sertraline HCl [Zoloft] 100 mg PO HS 07/26/17 [History] ALPRAZolam [Xanax] 1 mg PO TID PRN 01/29/18 [History] Ergocalciferol (Vitamin D2) [Vitamin D2] 50,000 unit PO SA 01/29/18 [History] Calcitriol 0.25 mcg PO Q30D 05/01/18 [History] Cranberry Fruit Concentrate [Azo Cranberry] 500 mg PO BID 05/01/18 [History] Ferrous Sulfate [Iron (65 MG Elemental)] 325 mg PO BID 05/01/18 [History] Folic Acid 0.4 mg PO DAILY 05/01/18 [History] Loperamide HCl [Imodium A-D] 2 mg PO DAILY PRN 05/01/18 [History] Magnesium 200 mg PO DAILY 05/03/18 [History] Follow up Appointment(s)/Referral(s): Anuel Barakat MD [STAFF PHYSICIAN] - 05/22/18 11:15 am Fab Recinos DO [Primary Care Provider] - 1 Week (Office will call patient and set up follow up appointment upon discharge) Discharge Disposition: HOME SELF-CARE
[2018-05-26] MEDS ORDERED: CALCITRIOL 0.25 MCG CAP PO SCH (09:00)
== END 2018-05-08 15:25 | disposition home or self-care (01) | DRG 394 ==
LOC: EC 15:47 → 4SSUR 18:13
PROVIDERS: ADMIT Internal Medicine; ATTEND Internal Medicine
PROC: 30233N1 Transfusion of Nonautologous Red Blood Cells into Peripheral Vein, Percutaneous Approach (ICD-10-PCS; 2018-05-04)
PROC: 0W3P8ZZ Control Bleeding in Gastrointestinal Tract, Via Natural or Artificial Opening Endoscopic (ICD-10-PCS; 2018-05-07)
PROC: 0DJD8ZZ Inspection of Lower Intestinal Tract, Via Natural or Artificial Opening Endoscopic (ICD-10-PCS; principal; 2018-05-07 11:00)
DX: K94.11 Enterostomy hemorrhage (principal); K50.018 Crohn's disease of small intestine with other complication; D62 Acute posthemorrhagic anemia; F33.9 Major depressive disorder, recurrent, unspecified; Y83.8 Other surgical procedures as the cause of abnormal reaction of the patient, or of later complication, without mention of misadventure at the time of the procedure; Y73.8 Miscellaneous gastroenterology and urology devices associated with adverse incidents, not elsewhere classified; K21.9 Gastro-esophageal reflux disease without esophagitis; K74.60 Unspecified cirrhosis of liver; L92.9 Granulomatous disorder of the skin and subcutaneous tissue, unspecified; N18.3 Chronic kidney disease, stage 3 (moderate); Z79.52 Long term (current) use of systemic steroids; Z79.84 Long term (current) use of oral hypoglycemic drugs; Z82.3 Family history of stroke; Z83.3 Family history of diabetes mellitus; I78.1 Nevus, non-neoplastic; Z86.19 Personal history of other infectious and parasitic diseases; D69.6 Thrombocytopenia, unspecified; E11.22 Type 2 diabetes mellitus with diabetic chronic kidney disease; F41.1 Generalized anxiety disorder; I12.9 Hypertensive chronic kidney disease with stage 1 through stage 4 chronic kidney disease, or unspecified chronic kidney disease; Z86.14 Personal history of Methicillin resistant Staphylococcus aureus infection; Z87.442 Personal history of urinary calculi; Z87.891 Personal history of nicotine dependence; Z90.49 Acquired absence of other specified parts of digestive tract; Z90.710 Acquired absence of both cervix and uterus; Z96.641 Presence of right artificial hip joint; Z88.8 Allergy status to other drugs, medicaments and biological substances; Z88.6 Allergy status to analgesic agent; Z91.041 Radiographic dye allergy status; M19.90 Unspecified osteoarthritis, unspecified site
CPT/HCPCS: 36415; 45346; 80048; 80053; 83690; 84484; 85025; 85027; 85610; 85730; 86850; 86900; 86901; 86920; 93005; 96360; 99284

== ENCOUNTER → 2018-05-26 | Outpatient (CLI) | payer OTHER, MEDICARE ==
[2018-05-27 04:08] LABS: T4, Free (Free Thyroxine) 0.9 ng/dL (0.80-1.80)
== END | disposition home or self-care (01) ==
LOC: LABWHC1 14:38
PROVIDERS: ATTEND Internal Medicine Endocrinology, Diabetes & Metabolism
DX: R94.6 Abnormal results of thyroid function studies (principal)
CPT/HCPCS: 84439; 84443

== ENCOUNTER → 2018-06-20 | Outpatient (CLI) | payer OTHER, MEDICARE | END | disposition home or self-care (01) | LOC: LABWHC1 17:04 | PROVIDERS: ATTEND Nurse Practitioner Family | DX: Z53.9 Procedure and treatment not carried out, unspecified reason (principal) ==

== ENCOUNTER → 2018-07-08 | Outpatient (CLI) | payer OTHER, MEDICARE ==
--- NOTE | 2018-07-08 17:01 | CT ---
EXAMINATION TYPE: CT foot RT wo con DATE OF EXAM: 07/08/2018 COMPARISON: None. No recent available at this institution . HISTORY: Right 2nd metatarsal pain after injury. CT DLP: 185.1 mGycm Automated exposure control for dose reduction was used. TECHNIQUE: Contiguous axial CT slices of the right foot were obtained. Coronal and sagittal reformats were obtained for review. 3-D reformatted images of the osseous structures of the right foot were al so obtained at a separate workstation for review. FINDINGS: There appears to be widening of the Lisfranc interval although there is obliquely of the imaging rend ering evaluation suboptimal. There is lateral displacement of the first and second metatarsals. Multi ple osseous fragments are seen dorsally at the metatarsal phalangeal joints with subtle suspected fra ctures through the second cuneiform. With nonunited fracture of the base of the second metatarsal and possible additional nonunited fracture of the base of the third metatarsal as there is an accessory osseous fragment adjacent to the cuneiforms. Extensive degenerative change at the tarsometatarsal joints are seen as marginal osteophytes and exte nsive joint space narrowing. There is soft tissue swelling of the right foot circumferentially, limit ing evaluation as well as extensive atherosclerosis. Confluent edema is seen dependently deep to the calcaneus. Small infracalcaneal heel spur is noted. IMPRESSION: 1. LISFRANC INJURY WITH WIDENING OF THE FIRST CUNEIFORMS TO SECOND METATARSAL INTERSPACE AND LATERAL DEVIATION OF THE METATARSALS. 2. ANATOMY IS PARTIALLY OBSCURED SECONDARY TO PATIENT POSITIONING WITH INVERSION OF FOOT AND OBLIQUIT Y. THERE ARE EXTENSIVE DEGENERATIVE CHANGES OF THE TARSOMETATARSAL JOINTS AND NONUNITED FRACTURE DEFO RMITIES OF THE BASE OF THE SECOND AND POSSIBLY OF THE FOURTH WITH THE APPEARANCE OF AN ACCESSORY CUNE IFORM LIKELY RELATED TO A NONUNITED FRAGMENT. 3. EXAM IS FURTHER LIMITED BY DIFFUSE LEFT FOOT SOFT TISSUE SWELLING AND EXTENSIVE VASCULAR CALCIFICA TIONS. CORRELATION WITH RIGHT FOOT RADIOGRAPH IS RECOMMENDED.
== END | disposition home or self-care (01) ==
LOC: RADCTMAIN 15:57
PROVIDERS: ATTEND Orthopaedic Surgery
DX: M19.071 Primary osteoarthritis, right ankle and foot (principal); S92.321K Displaced fracture of second metatarsal bone, right foot, subsequent encounter for fracture with nonunion; M79.89 Other specified soft tissue disorders; E11.9 Type 2 diabetes mellitus without complications; N28.9 Disorder of kidney and ureter, unspecified; K50.90 Crohn's disease, unspecified, without complications; D64.9 Anemia, unspecified; B18.2 Chronic viral hepatitis C; K21.9 Gastro-esophageal reflux disease without esophagitis; E55.9 Vitamin D deficiency, unspecified

== ENCOUNTER → 2018-08-08 | Outpatient (CLI) | payer OTHER, MEDICARE ==
[2018-08-08 17:06] LABS: HGB 13.2 gm/dL (11.4-16.0); MCH 34.6 pg (25.0-35.0); MCHC 33.9 g/dL (31.0-37.0); MCV 102.2 fL (80.0-100.0); Macrocytosis Slight; Mean Platelet Volume 7.5; Platelet Count 104 k/uL (150-450); RBC 3.81 m/uL (3.80-5.40); RDW 14.6 % (11.5-15.5); WBC 7.4 k/uL (3.8-10.6)
[2018-08-08 17:09] LABS: Appearance,Urine Clear (Clear); Bacteria,Urine Rare /hpf; Bilirubin,Urine Negative (Negative); Blood,Urine Trace (Negative); Color,Urine Yellow; Glucose,Urine (UA) Negative (Negative); Hyaline Casts,Urine 1 /lpf (0-2); Ketones,Urine Negative (Negative); Leukocyte Esterase,Urine Small (Negative); Mucus,Urine Rare /hpf; Nitrite,Urine Negative (Negative); Protein,Urine 2+ (Negative); RBC,Urine 1 /hpf (0-5); Specific Gravity,Urine 1.011 (1.001-1.035); Squamous Epithelial Cell,Urine 1 /hpf (0-4); Urobilinogen,Urine <2.0 mg/dL (<2.0); WBC,Urine 15 /hpf (0-5)
[2018-08-08 23:51] LABS: Iron Saturation 25.64 (12.00-45.00)
[2018-08-08 23:58] LABS: Vitamin D 25 Hydroxy 15.4 ng/mL (30.0-100.0)
[2018-08-09 00:32] LABS: Parathyroid Hormone Intact 32.9 pg/mL (14.0-72.0)
[2018-08-09 00:49] LABS: Anion Gap 7.3 mmol/L (4.00-12.00); Calcium 9.8 mg/dL (8.7-10.3); Carbon Dioxide 29.7 mmol/L (21.6-31.8); Magnesium 1.6 mg/dL (1.5-2.4); Phosphorus 3.4 mg/dL (2.4-5.1); Uric Acid 7.5 mg/dL (2.9-7.7)
[2018-08-09 01:24] LABS: Hemoglobin A1C 6.1 % (4.0-6.0)
== END | disposition home or self-care (01) ==
LOC: LABWHC1 16:15
PROVIDERS: ATTEND Nurse Practitioner Family
DX: N39.0 Urinary tract infection, site not specified (principal); M10.9 Gout, unspecified; N25.81 Secondary hyperparathyroidism of renal origin; D63.1 Anemia in chronic kidney disease; N18.3 Chronic kidney disease, stage 3 (moderate); D50.9 Iron deficiency anemia, unspecified; E83.42 Hypomagnesemia; E11.22 Type 2 diabetes mellitus with diabetic chronic kidney disease
CPT/HCPCS: 36415; 80048; 81001; 82306; 82728; 83036; 83540; 83550; 83735; 83970; 84100; 84550; 85027

== ENCOUNTER → 2018-10-31 | Outpatient (CLI) | payer OTHER, MEDICARE ==
[2018-11-01 00:20] LABS: Anion Gap 9.9 mmol/L (4.00-12.00); Calcium 9.6 mg/dL (8.7-10.3); Carbon Dioxide 29.1 mmol/L (21.6-31.8); Potassium 4.8 mmol/L (3.5-5.5)
== END | disposition home or self-care (01) ==
LOC: LABWHC1 15:26
PROVIDERS: ATTEND Internal Medicine Nephrology
DX: N17.9 Acute kidney failure, unspecified (principal)
CPT/HCPCS: 36415; 80048

== ENCOUNTER → 2018-11-14 | Outpatient (CLI) | payer MEDICARE ==
[2018-11-14 12:57] LABS: Basophils % (A) 1 %; Eosinophils # (A) 0.4 k/uL (0-0.7); Eosinophils % (A) 5 %; HCT 35.9 % (34.0-46.0); HGB 11.6 gm/dL (11.4-16.0); Lymphocytes # (A) 0.7 k/uL (1.0-4.8); Lymphocytes % (A) 11 %; MCHC 32.2 g/dL (31.0-37.0); Macrocytosis Moderate; Mean Platelet Volume 7.7; Monocytes # (A) 0.3 k/uL (0-1.0); Monocytes % (A) 4 %; Neutrophils # (A) 5.3 k/uL (1.3-7.7); Neutrophils % (A) 78 %; RDW 14.1 % (11.5-15.5); WBC 6.8 k/uL (3.8-10.6)
[2018-11-14 13:01] LABS: MCV 105.7 fL (80.0-100.0)
[2018-11-14 13:21] LABS: Appearance,Urine Clear (Clear); Bacteria,Urine Rare /hpf; Bilirubin,Urine Negative (Negative); Blood,Urine Negative (Negative); Color,Urine Yellow; Glucose,Urine (UA) Negative (Negative); Ketones,Urine Negative (Negative); Leukocyte Esterase,Urine Moderate (Negative); Mucus,Urine Rare /hpf; Nitrite,Urine Negative (Negative); Protein,Urine 1+ (Negative); RBC,Urine 1 /hpf (0-5); Specific Gravity,Urine 1.011 (1.001-1.035); Squamous Epithelial Cell,Urine <1 /hpf (0-4); Urobilinogen,Urine <2.0 mg/dL (<2.0); WBC,Urine 22 /hpf (0-5)
[2018-11-14 14:18] LABS: Platelet Count 96 k/uL (150-450)
[2018-11-14 18:25] LABS: Iron Saturation 18.03 (12.00-45.00)
[2018-11-14 18:33] LABS: Vitamin D 25 Hydroxy 23.6 ng/mL (30.0-100.0)
[2018-11-14 19:52] LABS: Albumin 4.2 g/dL (3.80-4.90); Anion Gap 6.5 mmol/L (4.00-12.00); Calcium 9.5 mg/dL (8.7-10.3); Carbon Dioxide 31.5 mmol/L (21.6-31.8); Magnesium 1.5 mg/dL (1.5-2.4); Phosphorus 2.5 mg/dL (2.4-5.1); Potassium 4.6 mmol/L (3.5-5.5); Uric Acid 8.3 mg/dL (2.9-7.7)
[2018-11-14 20:12] LABS: Parathyroid Hormone Intact 55.2 pg/mL (14.0-72.0)
[2018-11-14 20:46] LABS: Creatinine,Urine Random 83.7 mg/dL
[2018-11-14 21:20] LABS: Total Protein,Urine Random 37.1 mg/dL (0.0-13.5)
== END | disposition home or self-care (01) ==
LOC: LABWHC1 12:08
PROVIDERS: ATTEND Internal Medicine Nephrology
DX: N25.81 Secondary hyperparathyroidism of renal origin (principal); D50.9 Iron deficiency anemia, unspecified; N39.0 Urinary tract infection, site not specified; N17.9 Acute kidney failure, unspecified; M10.9 Gout, unspecified
CPT/HCPCS: 36415; 80048; 81001; 82040; 82306; 82570; 82728; 83540; 83550; 83735; 83970; 84100; 84156; 84550; 85025; 87086

== ENCOUNTER → 2018-11-21 | Outpatient (CLI) | payer MEDICARE ==
[2018-11-21 23:26] LABS: T4, Free (Free Thyroxine) 0.8 ng/dL (0.80-1.80)
== END ==
LOC: LABWHC1 16:57
PROVIDERS: ATTEND Internal Medicine Endocrinology, Diabetes & Metabolism
DX: E03.8 Other specified hypothyroidism (principal)
CPT/HCPCS: 36415; 84439; 84443

== ENCOUNTER → 2018-11-24 | Outpatient (CLI) | payer MEDICARE ==
[2018-11-24 18:20] LABS: Anion Gap 6.4 mmol/L (4.00-12.00); Calcium 9.6 mg/dL (8.7-10.3); Carbon Dioxide 28.6 mmol/L (21.6-31.8); Potassium 4.6 mmol/L (3.5-5.5)
== END | disposition home or self-care (01) ==
LOC: LABWHC1 12:13
PROVIDERS: ATTEND Internal Medicine Nephrology
DX: N18.3 Chronic kidney disease, stage 3 (moderate) (principal)
CPT/HCPCS: 36415; 80048

== ENCOUNTER → 2018-12-06 | Outpatient (CLI) | payer MEDICARE ==
[2018-12-06 16:06] LABS: African American GFR (CKD) 43.1 (60.0-200.0); Anion Gap 8.9 mmol/L (4.00-12.00); BUN/Creat Ratio 25.33 Ratio (12.00-20.00); Calcium 9.7 mg/dL (8.7-10.3); Carbon Dioxide 31.1 mmol/L (21.6-31.8); Potassium 4.1 mmol/L (3.5-5.5)
== END | disposition home or self-care (01) ==
LOC: LABWHC1 11:51
PROVIDERS: ATTEND Internal Medicine Nephrology
DX: N18.3 Chronic kidney disease, stage 3 (moderate) (principal)
CPT/HCPCS: 36415; 80048

== ENCOUNTER → 2019-02-13 | Outpatient (CLI) | payer MEDICARE ==
[2019-02-13 15:57] LABS: Anisocytosis Slight; Basophils % (A) 0 %; Eosinophils # (A) 0.4 k/uL (0-0.7); Eosinophils % (A) 4 %; HCT 36.1 % (34.0-46.0); HGB 11.9 gm/dL (11.4-16.0); Lymphocytes % (A) 10 %; MCH 34.2 pg (25.0-35.0); MCHC 32.9 g/dL (31.0-37.0); Macrocytosis Moderate; Mean Platelet Volume 7.8; Monocytes # (A) 0.6 k/uL (0-1.0); Monocytes % (A) 6 %; Neutrophils # (A) 7.8 k/uL (1.3-7.7); Neutrophils % (A) 79 %; Platelet Count 105 k/uL (150-450); RBC 3.48 m/uL (3.80-5.40); RDW 19.3 % (11.5-15.5); WBC 9.8 k/uL (3.8-10.6)
[2019-02-13 15:58] LABS: MCV 103.9 fL (80.0-100.0)
[2019-02-13 23:19] LABS: African American GFR (CKD) 39.9 (60.0-200.0); Anion Gap 9.9 mmol/L (4.00-12.00); BUN/Creat Ratio 26.88 Ratio (12.00-20.00); Carbon Dioxide 34.1 mmol/L (21.6-31.8); Non-African American GFR(CKD) 34.4 (60.0-200.0); Potassium 4.1 mmol/L (3.5-5.5)
== END | disposition home or self-care (01) ==
LOC: LABWHC1 15:02
PROVIDERS: ATTEND Nurse Practitioner Family
DX: N18.3 Chronic kidney disease, stage 3 (moderate) (principal)
CPT/HCPCS: 36415; 80048; 85025

== ENCOUNTER → 2019-04-29 | Outpatient (CLI) | payer MEDICARE ==
[2019-04-29 23:59] LABS: Hemoglobin A1C 5.6 % (4.0-6.0)
== END | disposition home or self-care (01) ==
LOC: LABWHC1 15:31
PROVIDERS: ATTEND Orthopaedic Surgery
DX: E11.610 Type 2 diabetes mellitus with diabetic neuropathic arthropathy (principal); L97.512 Non-pressure chronic ulcer of other part of right foot with fat layer exposed; E11.621 Type 2 diabetes mellitus with foot ulcer
CPT/HCPCS: 36415; 83036; 84134

== ENCOUNTER → 2019-05-20 | Outpatient (CLI) | payer MEDICARE ==
[2019-05-20 15:30] LABS: Basophils % (A) 0 %; Eosinophils # (A) 0.3 k/uL (0-0.7); Eosinophils % (A) 5 %; HCT 38.7 % (34.0-46.0); HGB 12.6 gm/dL (11.4-16.0); Lymphocytes # (A) 0.6 k/uL (1.0-4.8); Lymphocytes % (A) 9 %; MCH 33.7 pg (25.0-35.0); MCHC 32.6 g/dL (31.0-37.0); MCV 103.3 fL (80.0-100.0); Macrocytosis Slight; Mean Platelet Volume 7.1; Monocytes # (A) 0.2 k/uL (0-1.0); Monocytes % (A) 2 %; Neutrophils # (A) 6.1 k/uL (1.3-7.7); Neutrophils % (A) 83 %; Platelet Count 105 k/uL (150-450); RBC 3.74 m/uL (3.80-5.40); RDW 14.4 % (11.5-15.5); WBC 7.3 k/uL (3.8-10.6)
[2019-05-20 15:34] LABS: Appearance,Urine Clear (Clear); Bilirubin,Urine Negative (Negative); Blood,Urine Negative (Negative); Color,Urine Yellow; Glucose,Urine (UA) Negative (Negative); Ketones,Urine Negative (Negative); Leukocyte Esterase,Urine Moderate (Negative); Mucus,Urine Rare /hpf; Nitrite,Urine Negative (Negative); PH, Urine 6.5 (5.0-8.0); Protein,Urine 1+ (Negative); RBC,Urine 1 /hpf (0-5); Specific Gravity,Urine 1.017 (1.001-1.035); Urobilinogen,Urine <2.0 mg/dL (<2.0)
[2019-05-21 01:16] LABS: % Iron Saturation 24.67 (12.00-45.00); African American GFR (CKD) 43.1 (60.0-200.0); Albumin 4.4 g/dL (3.80-4.90); Anion Gap 13.7 mmol/L (4.00-12.00); BUN/Creat Ratio 20.67 Ratio (12.00-20.00); Calcium 9.7 mg/dL (8.7-10.3); Carbon Dioxide 25.3 mmol/L (21.6-31.8); Magnesium 1.4 mg/dL (1.5-2.4); Non-African American GFR(CKD) 37.2 (60.0-200.0); Phosphorus 2.9 mg/dL (2.4-5.1); Uric Acid 9.5 mg/dL (2.9-7.7)
[2019-05-21 01:24] LABS: Ferritin 67.8 ng/mL (10.0-291.0)
== END | disposition home or self-care (01) ==
LOC: LABWHC1 14:47
PROVIDERS: ATTEND Nurse Practitioner Family
DX: N18.3 Chronic kidney disease, stage 3 (moderate) (principal); D63.1 Anemia in chronic kidney disease; D50.9 Iron deficiency anemia, unspecified; N39.0 Urinary tract infection, site not specified; N25.81 Secondary hyperparathyroidism of renal origin; E55.9 Vitamin D deficiency, unspecified; M10.9 Gout, unspecified
CPT/HCPCS: 36415; 80048; 81001; 82040; 82306; 82728; 83540; 83550; 83735; 83970; 84100; 84550; 85025

== ENCOUNTER 2019-06-25 06:10 | Day surgery (SDC) | payer MEDICARE ==
[2019-06-19 13:59] VITALS: BMI 26.6
[~2019-06-25 06:10] MED LIST changes: -ACETAMINOPHEN TAB 500 MG TAB PO ONE; +DEXAMETHASONE SOD PHOSPHATE 10 MG/ML 1 ML VIAL IV ONE; +HYDROmorphone 0.5 MG/0.5 ML SYRINGE IVP PRN; -HYDROmorphone 1 MG/ML 1 ML SYRINGE IVP PRN; -LACTATED RINGERS 1,000 ML IV SCH; -MELOXICAM 7.5 MG TAB PO ONE; +METOCLOPRAMIDE 5 MG/ML 2 ML VIAL IVP PRN; -MIDAZOLAM 2 MG/2 ML VIAL IV PRN; -SCOPOLAMINE 1.5MG/72HR PATCH TRANSDERM ONE; -TRANEXAMIC ACID 1,000 MG in SODIUM CHLORIDE 0.9% 100 ML IVPB ONE; -ceFAZolin 2 GM in SODIUM CHLORIDE 0.9% 100 ML IVPB ONE
[2019-06-25 07:11] LABS: Glucose,Whole Blood 109 mg/dL (75-99)
[2019-06-25] MEDS: LACTATED RINGERS 1,000 ML IV SCH ×3 (07:11→23:25)
[2019-06-25] MEDS ORDERED: MIDAZOLAM 2 MG/2 ML VIAL IVP ONE ×2 (07:43→08:05)
[2019-06-25] MEDS ORDERED: fentaNYL (PF) 50 MCG/ML 2 ML AMP IVP ONE ×2 (07:43→08:05)
[2019-06-25] MEDS ORDERED: ROPIVACAINE 5 MG/ML 30 ML VIAL ONE (08:04)
[2019-06-25] MEDS ORDERED: ePHEDrine SULFATE/0.9% NACL/PF 50 MG/5 ML SYRINGE IV ONE (08:04)
[2019-06-25] MEDS ORDERED: PROPOFOL 10 MG/ML 20 ML VIAL IV ONE (08:04)
--- NOTE | 2019-06-25 08:46 | P.ANPRN ---
Procedure Note - Anesthesia - Nerve Block Performed Right Saphenous/Obturator Single Time Out Performed: Yes Date of Procedure: 06/25/19 Procedure Start Time: 07:42 Procedure Stop Time: 07:48 Location of Patient: PreOp Indication: Acute Post-Operative Pain, Requested by Surgeon Specifically requested for management of pain by DrPrasanth: Armani Olea Sedation Type: Sedate with meaningful contact maintained Preparation: Sterile Prep Position: Supine Catheter: None Needle Types: Pajunk Needle Gauge: 20 Ultrasound used to visualize needle placement: Yes Ultrasound used to observe medication spread: Yes Injectate: Other (see comment) (0.25% ropivacaine/0.5% lidocaine 20 mL's) Adjunct: Epinephrine (see comment for dilution ratio) (1/200,000) Blood Aspirated: No Pain Paresthesia on Injection Noted: No Resistance on Injection: Normal Image Stored and Saved: Yes Events: Uneventful and Well Tolerated
--- NOTE | 2019-06-25 08:55 | P.ANPRN ---
Procedure Note - Anesthesia - Nerve Block Performed Right Popliteal Single Time Out Performed: Yes Date of Procedure: 06/25/19 Procedure Start Time: 07:50 Procedure Stop Time: 07:58 Location of Patient: PreOp Indication: Acute Post-Operative Pain, Requested by Surgeon Specifically requested for management of pain by DrPrasanth: Armani Olea Sedation Type: Sedate with meaningful contact maintained Preparation: Sterile Prep Position: Left Lateral Catheter: None Needle Types: Pajunk Needle Gauge: 21 Ultrasound used to visualize needle placement: Yes Ultrasound used to observe medication spread: Yes Injectate: Other (see comment) (0.25% ropivacaine/0.5% lidocaine 20 mL) Adjunct: Epinephrine (see comment for dilution ratio) (1:200,000) Blood Aspirated: No Pain Paresthesia on Injection Noted: No Resistance on Injection: Normal Image Stored and Saved: Yes Events: Uneventful and Well Tolerated
--- NOTE | 2019-06-25 10:36 | XR ---
EXAMINATION TYPE: XR foot limited RT, [place] guidance operating room DATE OF EXAM: 06/25/2019 COMPARISON: NONE HISTORY: 63-year-old female right foot ORIF FINDINGS: Intraoperative fluoroscopic images demonstrating a surgical arthrodesis across the first TMT joint. FLUOROSCOPY Fluoroscopy time of 23 seconds seconds was used during right foot ORIF. 6 image/s document/s the pro cedure. IMPRESSION: Intraoperative fluoroscopy as above.
[2019-06-25] MEDS ORDERED: HYDROcodone/APAP 5-325MG 1 EACH TAB PO PRN (11:00)
[2019-06-25] MEDS ORDERED: hydrOXYzine PAMOATE 25 MG CAP PO PRN (11:00)
[2019-06-25] MEDS ORDERED: SENNOSIDES-DOCUSATE SODIUM 1 EACH TAB PO PRN (11:00)
[2019-06-25] MEDS ORDERED: ONDANSETRON 4 MG/2 ML VIAL IVP PRN (11:00)
[2019-06-25] MEDS ORDERED: HYDROmorphone 0.5 MG/0.5 ML SYRINGE IVP PRN ×3 (11:00)
[2019-06-25 11:07] LABS: Glucose,Whole Blood 156 mg/dL (75-99)
--- NOTE | 2019-06-25 11:07 | P.OP ---
Date of Procedure: 06/25/19 Preoperative Diagnosis: 1. Chronic fracture dislocation of the right first tarsometatarsal joint 2. Chronic prednisone use with severe osteopenia 3. Nonunion second metatarsal fracture 4. Peripheral neuropathy Postoperative Diagnosis: Same Procedure(s) Performed: 1. First tarsometatarsal joint fusion, right foot 2. Open reduction of chronically dislocated first tarsometatarsal joint dislocation, right foot 3. Right gastrocnemius recession 4. Application of short leg splint by physician, right leg Anesthesia: regional, spinal Surgeon: Armani Olea Driver Guide #1: Larry Spivey Estimated Blood Loss (ml): 50 IV fluids (ml): 1,200 Pathology: none sent Condition: stable Disposition: PACU Indications for Procedure: The patient is a very pleasant 63-year-old female with multiple medical problems including chronic prednisone use and peripheral neuropathy who sustained an injury to her right foot about a year ago. At that time she was found to have a fracture of the first metatarsal base and second metatarsal shaft. She was initially managed nonsurgically due to her multiple medical problems. Unfortunately she developed progressively due to worsening deformity of the foot, subluxation of the first tarsometatarsal joint, dorsiflexion malunion and skin at risk which ultimately led to a superficial ulcer under the plantar medial aspect of the first tarsometatarsal joint. Her foot was offloaded in a boot and she was referred to both vascular surgery in the wound Center. The plantar skin breakdown healed and she was found to have adequate vascular inflow. Both myself and the vascular surgeon agreed that despite her many medical problems she would benefit from a plantar flexing first tarsometatarsal fusion to offload the plantar midfoot at the site of skin at risk. The patient has had complications following orthopedic surgery in the past including an infected total hip arthroplasty and is well aware of the potential risks of surgery including but not limited to risks from anesthesia, infection, delayed wound healing, nonunion, malunion, recurrence of the ulcer, symptomatic hardware, DVT, PE, other medical complications, and possibly loss of life or limb. She provided her verbal consent to go forward with surgery. Description of Procedure: The patient was identified in preoperative holding and the correct right leg was marked with my initials. The patient had a block placed by anesthesia. She was then brought back to the operating room. She was positioned on the OR table where a spinal anesthetic and preoperative antibiotics were given. A tourniquet was applied to the proximal aspect of the right leg. All bony prominences were well-padded a bump was placed under the right buttock to internally rotate the leg. The left leg was secured to the table with foam and tape. The right leg was then prepped and draped in the standard sterile fashion. Prior to starting surgery timeout was performed identifying the correct patient, operative extrem ity, and procedure. The right leg was then elevated, exsanguinated with an Esmarch bandage, and the tourniquet was inflated to 250 mmHg. Next I began by performing a gastrocnemius recession to offload the midfoot. A Senait-type lengthening was performed. A 3 cm longitudinal incision was marked 1 thumb breadth posterior to the tibia along the distal medial muscle belly of the gastrocnemius. Skin incision was made with a scalpel and dissection was carried down carefully to the subtendinous tissue with tenotomy scissors. Due to the patient's very thin, friable skin the proximal incision was extended. The superficial fascia was incised longitudinally in line with the skin incision. I bluntly developed interval between the gastrocnemius aponeurosis and soleus fascia in between the gastrocnemius aponeurosis and the superficial fascia. The sural nerve was seen to be adherent to the superficial fascia. Modified right angle retractors were placed isolating the gastrocnemius aponeuro sis. The gastrocnemius aponeurosis was then cut from medial to lateral under direct visualization. The wound was thoroughly irrigated and closed in layers. Attention was then turned to the dorsal midfoot. A longitudinal incision was marked out between the first and second metatarsals centered over the first tarsometatarsal joint. I elected to approach the joint dorsally rather than medially to use a dorsal plate to help plantarflex the first metatarsal. Skin incision made with a scalpel and dissection was carried down carefully to the subcutaneous tissue taking care to not undermine the skin margins. The EHL tendon sheath was incised and the tendon was retracted laterally. The periosteum over the first tarsometatarsal joint was sharply elevated in line with the skin incision. There is a large amount of fibrous tissue at the base of the first metatarsal. This was debrided with a curet. The joint was found to be subluxed dorsally. A K wire was placed in the medial cuneiform and first metatarsal in a K wire distractor was applied gently opening the joint. There is asymmetric bone loss from the dorsal aspect of the medial cuneiform and first metatarsal. The remaining articular cartilage was gently debrided using a combination of curettes and osteotomes. A microsagittal saw was used to make angled cuts on the medial cuneiform and first metatarsal to plantarflex the fi rst ray. The K wires were also distracted until the first ray was plantar flexed. Fluoroscopic images were taken verifying that the first ray was plantar flexed and parallel to the lesser metatarsals. The gap in the first tarsometatarsal joint was then tightly packed with crushed cancellous allograft and augment. The joint was pinned into place and x-rays were once again taken verifying that the first metatarsal was out to length on the AP view and plantarflexed on the lateral view. I then contoured a revision first MTP plate to span the first TMT joint. A nonlocking 2.7 mm screw was placed proximally into the cuneiform and a nonlocking 3.5 mm screw was placed distally in the metatarsal bring the plate down to bone. Proximally an additional 2 locking 2.7 locking screws were placed and distally a second nonlocking 3.5 mm screw and a locking 3.5 mm were placed. Clinically the plantar prominence under the first tarsometatarsal joint was significantly debulked and the first metatarsal head and plantarflexed. Final fluoroscopic images were taken verifying position of the first metatarsal and hardware. Due to the patient's. Poor soft tissue quality I elected to not address the second metatarsal. The wound was thoroughly irrigated and closed in layers. The tourniquet was let down. A sterile dressing consisting of Betadine soaked Adaptic, 4 x 4, and web roll was applied followed by a well-padded bulky Christie splint with the ankle in neutral. The patient was awoken from her sedation and transferred to a [place], and brought to recovery having tolerated procedure well. Larry RAMOS was required as a skilled circulation assistant due to the complexity of the case. Plan: The patient is going to be admitted overnight for 2 doses of IV antibiotics, pain control, and internal medicine consultation, and physical therapy for gait training. She will also need discharge planning. We will check her 25-hydroxy vitamin D level. Due to the patient's multiple medical issues and medical ALLERGIES I would defer to internal medicine for DVT prophylaxis given her long period of required nonweightbearing following surgery
[2019-06-25] MEDS ORDERED: LACTATED RINGERS 1,000 ML IV ONE (11:44)
[2019-06-25 14:53] LABS: Basophils % (A) 0 %; Eosinophils % (A) 0 %; HCT 33.8 % (34.0-46.0); HGB 11.3 gm/dL (11.4-16.0); Lymphocytes # (A) 0.3 k/uL (1.0-4.8); Lymphocytes % (A) 3 %; MCH 34.3 pg (25.0-35.0); MCHC 33.5 g/dL (31.0-37.0); MCV 102.3 fL (80.0-100.0); Macrocytosis Slight; Mean Platelet Volume 7.9; Monocytes # (A) 0.2 k/uL (0-1.0); Monocytes % (A) 2 %; Neutrophils # (A) 9.4 k/uL (1.3-7.7); Neutrophils % (A) 94 %; RDW 15.2 % (11.5-15.5)
[2019-06-25] MEDS: FERROUS SULFATE 325 MG TAB PO SCH (15:49)
[2019-06-25 16:36] LABS: Platelet Count 98 k/uL (150-450)
[2019-06-25 17:15] LABS: Glucose,Whole Blood 163 mg/dL (75-99)
[2019-06-25 21:21] LABS: Glucose,Whole Blood 137 mg/dL (75-99)
[2019-06-25] MEDS: MIRTAZAPINE 15 MG TAB PO SCH (23:24)
[2019-06-25] MEDS: SERTRALINE 100 MG TAB PO SCH (23:24)
[2019-06-25] MEDS: ALPRAZolam 0.5 MG TAB PO PRN (23:59)
[2019-06-26 06:57] LABS: Glucose,Whole Blood 92 mg/dL (75-99)
[2019-06-26] MEDS: LINAGLIPTIN 5 MG TABLET PO SCH (07:31)
[2019-06-26] MEDS: LACTATED RINGERS 1,000 ML IV SCH ×3 (07:31→17:05)
[2019-06-26] MEDS: predniSONE 5 MG TAB PO SCH (07:31)
[2019-06-26] MEDS: ALPRAZolam 0.5 MG TAB PO PRN ×2 (07:31→21:59)
[2019-06-26 11:41] LABS: Glucose,Whole Blood 111 mg/dL (75-99)
--- NOTE | 2019-06-26 11:42 | P.PN ---
Subjective Progress Note Date: 06/26/19 This patient is a 63-year-old female with multiple medical problems including chronic prednisone use, ulcerative colitis,and peripheral neuropathy has been following with Dr. Olea in the office for an injury she sustained about a year ago. She was initially managed nonoperatively, although due to worsening deformity of the foot and development of a superficial ulcer of the plantar foot, surgery was recommended. The patient underwent a first tarsometatarsal joint fusion, right gastrocnemius recession, and an open reduction of a chronically dislocated first tarsometatarsal joint dislocation on 06/25/2019. Today's postoperative day #1. The patient states she is currently very comfortable, she is experiencing no pain in the right foot. She has not yet been up with physical therapy. She denies chest pain, shortness of breath, nausea, vomiting, numbness of tingling of the right lower extremity. Vital signs stable. Objective - Vital Signs Vital signs: Vital Signs Temp 97.7 F 06/26/19 07:00 Pulse 57 L 06/26/19 07:00 Resp 16 06/26/19 07:00 BP 156/65 06/26/19 07:00 Pulse Ox 99 06/26/19 07:00 Intake & Output 06/25/19 06/26/19 06/26/19 18:59 06:59 18:59 Intake Total 1355 Output Total 50 200 Balance 1305 -200 Weight 74.5 kg Intake: IV 875 Intake, IV Titration 300 Amount Lactated Ringers 1,000 ml 300 @ 100 mls/hr IV .Q10H [facility] Rx#:[id number] Oral 180 Output: Urine 200 Estimated Blood Loss 50 Other: Voiding Method Bedside Commode # Voids 1 - Exam On examination, the patient is sitting up in bed in no apparent distress. She is alert and oriented 3. On inspection of the right lower extremity, there is a bulky Christie splint in place. There is mild saturation of the dressing with dried blood, although there appears to be no active drainage through the splint. The visible portion of the toes are warm and well perfused with brisk capillary refill. There is no pain with passive range of motion of the toes. Motor and sensory function appear to be intact on the right lower extremity. Left calf is soft and nontender to palpation. - Labs CBC & Chem 7: 06/25/19 14:09 Labs: Abnormal Lab Results - Last 24 Hours (Table) 06/25/19 06/25/19 06/25/19 Range/Units 14:09 17:03 21:11 RBC 3.30 L (3.80-5.40) m/uL Hgb 11.3 L (11.4-16.0) gm/dL Hct 33.8 L (34.0-46.0) % MCV 102.3 H (80.0-100.0) fL Plt Count 98 L (150-450) k/uL Neutrophils # 9.4 H (1.3-7.7) k/uL Lymphocytes # 0.3 L (1.0-4.8) k/uL POC Glucose (mg/dL) 163 H 137 H (75-99) mg/dL Assessment and Plan Assessment: Chronic fracture dislocation of the right first tarsometatarsal joint status- post first tarsometatarsal joint fusion, open reduction of a chronically dislocated first tarsometatarsal joint dislocation, and a right gastrocnemius recession 06/25/2019. Postoperative day #1. Plan: - Strict nonweightbearing of the right lower extremity. Keep splint clean, dry, intact. - Physical therapy for gait and balance training. - Continue pain management. - DVT prophylaxis per internal medicine. - 2 doses of postoperative antibiotics complete. - Anticipate discharge to rehab within the next 24-48 hours, pending medical clearance. Patient discussed with Dr. Olea.
[2019-06-26] MEDS: CALCIUM CARB-VIT D 500MG-200UN 1 EACH TAB PO SCH (11:43)
[2019-06-26] MEDS: MAGNESIUM OXIDE 400 MG TAB PO SCH (11:43)
--- NOTE | 2019-06-26 13:57 | P.CONS ---
History of Present Illness - Reason for Consult Consult date: 06/26/19 Medical management - History of Present Illness This is a 63-year-old female patient of Dr. Shrestha with past medical history of Crohn's disease status post ileostomy with chronic prednisone use at 20 mg daily, follows with Dr. Stanton, diagnosed 8 years ago, episodes of bleeding from stoma status post argon treatment in the past, type 2 diabetes, hepatitis C liver disease, osteoarthritis, history of kidney stones, chronic anemia, history of MRSA. History of wound infection to the right foot status [facility]. Patient has been brought into the hospital under the care of Dr. Olea status post first tarsometatarsal joint fusion, right gastocnemius resection and open reduction of a chronically dislocated first tarsometatarsal joint dislocation performed yesterday. The patient was having some mild nausea and lightheadedness last evening which has resolved. Patient is postop day #1. She denies any difficulty with pain control. No chest pain or shortness of breath. No nausea or vomiting. She is planning for subacute rehab at the time of discharge as she is strict nonweightbearing on the right side. Review of Systems Constitutional: Denies chills, Denies fatigue, Denies fever, Denies lethargy, Denies malaise, Denies poor appetite, Denies weakness Eyes: denies blurred vision, denies pain Ears, nose, mouth and throat: Denies dysphagia, Denies headache, Denies nasal congestion, Denies nasal discharge, Denies sore throat, Denies vertigo Cardiovascular: Denies chest pain, Denies decreased exercise tolerance, Denies dyspnea on exertion, Denies edema, Denies leg edema, Denies lightheadedness, Denies shortness of breath, Denies syncope Respiratory: Denies cough, Denies cough with sputum, Denies dyspnea, Denies hemoptysis, Denies home oxygen, Denies wheezing Gastrointestinal: Denies abdominal pain, Denies diarrhea, Denies loss of appetite, Denies nausea, Denies vomiting Genitourinary: Denies dysuria, Denies hematuria, Denies urgency, Denies urinary frequency Musculoskeletal: Denies frequent falls, Denies gait dysfunction, Denies muscle weakness, Denies myalgias Integumentary: Denies pruritus, Denies rash Neurological: Reports gait dysfunction, Denies change in mentation, Denies confusion, Denies numbness, Denies seizures, Denies weakness Psychiatric: Denies anxiety, Denies depression Endocrine: Denies fatigue, Denies weight change Past Medical History Past Medical History: Blood Disorder, Diabetes Mellitus, Eye Disorder, GERD/Reflux, Liver Disease, Osteoarthritis (OA), Renal Disease Additional Past Medical History / Comment(s): crohns, hx. hepatitis c (tx approx 5 yrs ago), past hx. sepsis & ards 2007, has ileostomy, hx. kidney stones, hx. of infection in rt hip and has spacer in hip, hx. anemia related to intermittent bleeding from stoma(has had iron infusions), low platelets, septicemia x 3 ,CHRONIC KIDNEY DISEASE. hiatal hernia, hx gout, "very dry eyes", peripheral neuropathy, charcot foot-non wt bearing rt foot History of Any Multi-Drug Resistant Organisms: MRSA Year Discovered:: 04/25/16 MDRO Source:: Blood & Right Hip Past Surgical History: Appendectomy, Bowel Resection, Cholecystectomy, Hernia Repair, Hysterectomy, Joint Replacement, Tubal Ligation Additional Past Surgical History / Comment(s): ileostomy 2009 WITH 3-4 RE- SUTURING EPISODES RELATED TO BLEEDING, ileoscopy w/argon gas coagulation of stoma, rt hip spacers then rt hip replacement,, femeral hernia surgery, santos cataracts Past Anesthesia/Blood Transfusion Reactions: No Reported Reaction Past Psychological History: Anxiety, Depression Additional Psychological History / Comment(s): . Smoking Status: Former smoker Past Alcohol Use History: None Reported Additional Past Alcohol Use History / Comment(s): started 1974, quit smoking 2007, 1 ppd Past Drug Use History: None Reported - Past Family History Mother Family Medical History: CVA/TIA, Diabetes Mellitus Additional Family Medical History / Comment(s): Mother at age 88 from CVA. Sister(s) Additional Family Medical History / Comment(s): Patient has 3 sisters with no major medical problems. Patient does not have any brothers. Patient has 2 sons with no major medical problems. Father Family Medical History: Cancer Additional Family Medical History / Comment(s): . Medications and Allergies Home Medications Medication Instructions Recorded Confirmed Type Mirtazapine [Remeron] 15 mg PO HS 06/11/17 06/19/19 History predniSONE 20 mg PO DAILY 06/11/17 06/19/19 History Sertraline HCl [Zoloft] 100 mg PO HS 07/26/17 06/19/19 History ALPRAZolam [Xanax] 1 mg PO TID PRN 01/29/18 06/19/19 History Cranberry Fruit Concentrate [Azo 1,000 mg PO 1200 05/01/18 06/25/19 History Cranberry] Loperamide HCl [Imodium A-D] 2 mg PO TID PRN 05/01/18 06/25/19 History Calcium Carbonate/Vitamin D3 1 each PO 1200 06/19/19 06/25/19 History [Calcium 600-Vit D3 800 Caplet] Cholecalciferol (Vitamin D3) 15,000 unit PO BID 06/19/19 06/25/19 History [Vitamin D3] Cinnamon Bark [Cinnamon] 2,000 mg PO 1200 06/19/19 06/25/19 History Ferrous Sulfate [Feosol] 325 mg PO Q48H 06/19/19 06/25/19 History Januvia(Dose Unknown) 1 tab PO QAM 06/19/19 06/25/19 History Magnesium Oxide [Mag-Ox] 250 mg PO 1200 06/19/19 06/25/19 History Docusate [Colace] 100 mg PO BID #60 capsule 06/26/19 Rx Hydrocodone/Acetaminophen [Morris 1 tab PO Q4-6H PRN #40 tab 06/26/19 Rx 5-325] Allergies Allergy/AdvReac Type Severity Reaction Status Date / Time adhesive tape Allergy Severe Rash/Hives/Skin Verified 06/19/19 13:35 Peeling levofloxacin [From Levaquin] Allergy Severe Swelling/ra Verified 06/19/19 13:35 sh Quinolones Allergy Severe Anaphylaxis Verified 06/19/19 13:35 /Swelling enoxaparin [From Lovenox] Allergy GI bleed Verified 06/19/19 13:35 Iodinated Contrast Media AdvReac Severe Chest Pain Verified 06/19/19 13:35 [Iodinated Contrast Media - IV Dye] NSAIDS (Non-Steroidal AdvReac Severe GI Verified 06/19/19 13:35 Anti-Inflamma Bleeding/Liver Damage warfarin [From Coumadin] AdvReac Severe Abdominal Verified 06/19/19 13:35 Pain Physical Exam Vitals: Vital Signs Temp Pulse Pulse Resp BP Pulse Ox 06/26/19 07:00 97.7 F 57 L 16 156/65 99 06/26/19 05:18 16 06/26/19 01:51 98.1 F 83 16 121/70 93 L 06/25/19 23:24 16 06/25/19 19:48 98.1 F 79 16 172/76 95 06/25/19 14:02 83 166/68 06/25/19 13:49 88 06/25/19 13:33 83 125/60 06/25/19 13:17 77 122/64 06/25/19 13:02 81 119/72 06/25/19 12:49 76 119/62 06/25/19 12:32 83 137/56 06/25/19 12:17 97.9 F 70 16 133/71 96 06/25/19 12:05 97.9 F 68 16 126/64 96 06/25/19 11:40 70 18 120/59 96 06/25/19 11:25 83 18 113/56 99 06/25/19 11:10 69 16 139/66 97 06/25/19 10:55 96.8 F L 75 16 137/63 96 Intake and Output 06/25/19 06/26/19 06/26/19 22:59 06:59 14:59 Intake Total 180 Output Total 200 Balance 180 -200 Intake: Oral 180 Output: Urine 200 Other: Voiding Method Bedside Commode Bedside Commode # Voids 1 General appearance: average body habitus, no acute distress - EENT Eyes: anicteric sclerae, EOMI, PERRLA, no ptosis, no scleral icterus, normal appearance ENT: hearing grossly normal, NA/AT, normal oropharynx Ears: bilateral: normal - Neck Neck: no lymphadenopathy, normal ROM, no rigidity, no stridor, no thyromegaly Carotids: bilateral: upstroke normal Thyroid: bilateral: normal size - Respiratory Respiratory: bilateral: diminished, negative: dullness, rales, rhonchi, wheezing, prolonged expiration, prolonged inspiration - Cardiovascular Rhythm: regular Heart sounds: normal: S1, S2 Abnormal Heart Sounds: systolic murmur - Gastrointestinal General gastrointestinal: normal bowel sounds, soft, tenderness (Illeostomy) - Integumentary Integumentary: normal, normal turgor - Neurologic Neurologic: CNII-XII intact - Musculoskeletal Musculoskeletal: generalized weakness, strength equal bilaterally Large dressing in place to the right lower extremity which was not removed for evaluation. - Psychiatric Psychiatric: A&O x's 3, appropriate affect, intact judgment & insight Results CBC & Chem 7: 06/25/19 14:09 Labs: Abnormal Lab Results - Last 24 Hours (Table) 06/25/19 06/25/19 06/25/19 Range/Units 11:05 14:09 17:03 RBC 3.30 L (3.80-5.40) m/uL Hgb 11.3 L (11.4-16.0) gm/dL Hct 33.8 L (34.0-46.0) % MCV 102.3 H (80.0-100.0) fL Plt Count 98 L (150-450) k/uL Neutrophils # 9.4 H (1.3-7.7) k/uL Lymphocytes # 0.3 L (1.0-4.8) k/uL POC Glucose (mg/dL) 156 H 163 H (75-99) mg/dL 06/25/19 Range/Units 21:11 RBC (3.80-5.40) m/uL Hgb (11.4-16.0) gm/dL Hct (34.0-46.0) % MCV (80.0-100.0) fL Plt Count (150-450) k/uL Neutrophils # (1.3-7.7) k/uL Lymphocytes # (1.0-4.8) k/uL POC Glucose (mg/dL) 137 H (75-99) mg/dL Assessment and Plan Plan: 1. 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 Patient is strict nonweightbearing on the right lower extremity. Continue pain management, PT and OT per orthopedics. Incentive spirometry to reduce incidence of atelectasis and hospital-acquired pneumonia. 2. Chronic kidney disease stage 3. Stable. 3. Type 2 diabetes - insulin sliding scale and Tradjenta 5 mg orally daily for Januvia. 4. Hepatitis C in remission - stable . 5. Crohn's disease status post ileostomy in 2007. Continue prednisone reduced to 15 mg daily. 6. Generalized anxiety disorder and recurrent depression. Continue Xanax at reduced dose of 0.5 mg 3 times daily as needed, continue Remeron 15 mg at bedtime, Zoloft 100 mg at bedtime. 7. H/O hypertension. off Rx. 8. GI prophylaxis prophylaxis. Pepcid. 9. DVT prophylaxis Heparin subcu twice daily. 10. Chronic thrombocytopenia. Patient has been seen by Dr. Roth in the past. No treatment required. Full code. Discharge plan: Subacute rehab, Once authorization is obtained, most likely on Saturday Impression and plan of care have been directed as dictated by the signing physician. Glenis Hernandez nurse practitioner acting as scribe for signing physician.
[2019-06-26 16:44] LABS: Glucose,Whole Blood 92 mg/dL (75-99)
[2019-06-26] MEDS: LOPERAMIDE 2 MG CAP PO PRN (17:04)
[2019-06-26 20:12] LABS: Glucose,Whole Blood 133 mg/dL (75-99)
[2019-06-26] MEDS: HEPARIN SODIUM,PORCINE 5,000 UNIT/ML 1 ML VIAL SQ SCH (21:51)
[2019-06-26] MEDS: SERTRALINE 100 MG TAB PO SCH (21:54)
[2019-06-26] MEDS: MIRTAZAPINE 15 MG TAB PO SCH (21:54)
[2019-06-27] MEDS: LACTATED RINGERS 1,000 ML IV SCH ×3 (02:08→21:36)
[2019-06-27] MEDS: HEPARIN SODIUM,PORCINE 5,000 UNIT/ML 1 ML VIAL SQ SCH ×2 (06:59→21:17)
[2019-06-27 07:14] LABS: Glucose,Whole Blood 87 mg/dL (75-99)
[2019-06-27] MEDS: LINAGLIPTIN 5 MG TABLET PO SCH (08:18)
[2019-06-27] MEDS: predniSONE 5 MG TAB PO SCH (08:18)
[2019-06-27] MEDS: LOPERAMIDE 2 MG CAP PO PRN (08:58)
[2019-06-27] MEDS: CALCIUM CARB-VIT D 500MG-200UN 1 EACH TAB PO SCH (12:09)
[2019-06-27] MEDS: MAGNESIUM OXIDE 400 MG TAB PO SCH (12:09)
[2019-06-27] MEDS: ALPRAZolam 0.5 MG TAB PO PRN ×2 (12:21→21:36)
--- NOTE | 2019-06-27 14:26 | P.PN ---
Subjective Progress Note Date: 06/27/19 Principal diagnosis: S/P first tarsometatarsal joint fusion, right gastrocnemius recession, and an open reduction of a chronically dislocated first tarsometatarsal joint dislocation Patient is seen at bedside this am. She is S/P first tarsometatarsal joint fusion, right gastrocnemius recession, and an open reduction of a chronically dislocated first tarsometatarsal joint dislocation on 06/25/2019. She is currently denying pain or other complaints. She denies calf pain, fevers, chills, chest pain, shortness of breath, nausea, vomiting, or new numbness of tingling of the right lower extremity. Objective - Vital Signs Vital signs: Vital Signs Temp 98.1 F 06/27/19 09:15 Pulse 74 06/27/19 09:15 Resp 14 06/27/19 09:15 BP 136/78 06/27/19 09:15 Pulse Ox 93 L 06/27/19 09:15 Intake & Output 06/26/19 06/27/19 06/27/19 18:59 06:59 18:59 Intake Total 100 236 Output Total 400 Balance 100 -400 236 Intake: Oral 100 236 Output: Stool 400 Other: Voiding Method Bedside Commode Bedside Commode # Voids 1 1 - Exam On examination, the patient is sitting up in bed in no apparent distress. She is alert and oriented 3. On inspection of the right lower extremity, there is a bulky Christie splint in place. There appears to be no active bleeding or drainage through the splint. The visible portion of the toes are warm and well perfused with brisk capillary refill. There is no pain with passive range of motion of the toes. Motor and sensory function appear to be intact on the right lower extremity. Left calf is soft and nontender to palpation. - Constitutional General appearance: Present: no acute distress - Labs CBC & Chem 7: 06/25/19 14:09 Labs: Abnormal Lab Results - Last 24 Hours (Table) 06/26/19 Range/Units 20:00 POC Glucose (mg/dL) 133 H (75-99) mg/dL Assessment and Plan (1) Dislocation of tarsometatarsal joint Narrative/Plan: - Strict nonweightbearing of the right lower extremity. Keep splint clean, dry, intact. - Physical therapy for gait and balance training. - Continue pain management. - DVT prophylaxis per internal medicine. - 2 doses of postoperative antibiotics complete. - Anticipate discharge to rehab within the next 24-48 hours, pending medical clearance. Current Visit: Yes Status: Acute Priority: Medium Code(s): S93.326A - DISLOCATION OF TARSOMETATARSAL JOINT OF UNSP FOOT, INIT SNOMED Code(s): 968860682 Time with Patient: Less than 30
--- NOTE | 2019-06-27 14:55 | P.PN ---
Subjective Progress Note Date: 06/27/19 This is a 63-year-old female patient of Dr. Shrestha with past medical history of Crohn's disease status post ileostomy with chronic prednisone use at 20 mg daily, follows with Dr. Stanton, diagnosed 8 years ago, episodes of bleeding from stoma status post argon treatment in the past, type 2 diabetes, hepatitis C liver disease, osteoarthritis, history of kidney stones, chronic anemia, history of MRSA. History of wound infection to the right foot status [facility]. Patient has been brought into the hospital under the care of Dr. Olea status post first tarsometatarsal joint fusion, right gastocnemius resection and open reduction of a chronically dislocated first tarsometatarsal joint dislocation performed yesterday. The patient was having some mild nausea and lightheadedness last evening which has resolved. Patient is postop day #1. She denies any difficulty with pain control. No chest pain or shortness of breath. No nausea or vomiting. She is planning for subacute rehab at the time of discharge as she is strict nonweightbearing on the right side. 06/27: The patient states that she is feeling well. She is not sleeping well since she came in. Pain to right foot is controlled. She remains with large dressing in place and strict nonweightbearing. She has had good output from her ostomy. She is denies any symptoms from decrease in steroid from 20 mg daily to 15 mg. Patient has been afebrile, heart rate 74, blood pressure 136/78, pulse ox 93% on room air. Blood sugars running between 87 and 133. Review of Systems Constitutional: Denies chills, Denies fatigue, Denies fever, Denies lethargy, Denies malaise, Denies poor appetite, Denies weakness Ears, nose, mouth and throat: Denies dysphagia, Denies headache, Denies nasal congestion, Denies nasal discharge, Denies sore throat, Denies vertigo Cardiovascular: Denies chest pain, Denies decreased exercise tolerance, Denies dyspnea on exertion, Denies edema, Denies leg edema, Denies lightheadedness, Denies shortness of breath, Denies syncope Respiratory: Denies cough, Denies cough with sputum, Denies dyspnea, Denies hemoptysis, Denies home oxygen, Denies wheezing Gastrointestinal: Denies abdominal pain, Denies diarrhea, Denies loss of appetite, Denies nausea, Denies vomiting Genitourinary: Denies dysuria, Denies hematuria, Denies urgency, Denies urinary frequency Musculoskeletal: Denies frequent falls, Denies gait dysfunction, Denies muscle weakness, Denies myalgias Integumentary: Denies pruritus, Denies rash Neurological: Reports gait dysfunction, Denies change in mentation, Denies confusion, Denies numbness, Denies seizures, Denies weakness Psychiatric: Denies anxiety, Denies depression Endocrine: Denies fatigue, Denies weight change Objective - Vital Signs Vital signs: Vital Signs Temp 98.2 F 06/27/19 00:32 Pulse 63 06/27/19 00:32 Resp 14 06/27/19 00:32 BP 130/63 06/27/19 00:32 Pulse Ox 95 06/27/19 00:32 Intake & Output 06/26/19 06/27/19 06/27/19 18:59 06:59 18:59 Intake Total 100 Output Total 400 Balance 100 -400 Intake: Oral 100 Output: Stool 400 Other: Voiding Method Bedside Commode # Voids 1 1 - Exam General appearance: average body habitus, no acute distress, resting in bed - EENT Eyes: anicteric sclerae, EOMI, PERRLA, no ptosis, no scleral icterus, normal appearance ENT: hearing grossly normal, NA/AT, normal oropharynx Ears: bilateral: normal - Neck Neck: no lymphadenopathy, normal ROM, no rigidity, no stridor, no thyromegaly Carotids: bilateral: upstroke normal Thyroid: bilateral: normal size - Respiratory Respiratory: bilateral: diminished, negative: dullness, rales, rhonchi, wheezing, prolonged expiration, prolonged inspiration - Cardiovascular Rhythm: regular Heart sounds: normal: S1, S2 Abnormal Heart Sounds: systolic murmur - Gastrointestinal General gastrointestinal: normal bowel sounds, soft, tenderness (Illeostomy) - Integumentary Integumentary: normal, normal turgor - Neurologic Neurologic: CNII-XII intact - Musculoskeletal Musculoskeletal: generalized weakness, strength equal bilaterally Large dressing in place to the right lower extremity which was not removed for evaluation. - Psychiatric Psychiatric: A&O x's 3, appropriate affect, intact judgment & insight - Labs CBC & Chem 7: 06/25/19 14:09 Labs: Abnormal Lab Results - Last 24 Hours (Table) 06/26/19 06/26/19 Range/Units 11:27 20:00 POC Glucose (mg/dL) 111 H 133 H (75-99) mg/dL Assessment and Plan Plan: 1. 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 Patient is strict nonweightbearing on the right lower extremity. Continue pain management, PT and OT per orthopedics. Incentive spirometry to reduce incidence of atelectasis and hospital-acquired pneumonia. 2. Chronic kidney disease stage 3. Stable. 3. Type 2 diabetes - insulin sliding scale and Tradjenta 5 mg orally daily for Junuvia. 4. Hepatitis C in remission - stable . 5. Crohn's disease status post ileostomy in 2007. Continue prednisone reduced to 15 mg daily. 6. Generalized anxiety disorder and recurrent depression. Continue Xanax at reduced dose of 0.5 mg 3 times daily as needed, continue Remeron 15 mg at bedtime, Zoloft 100 mg at bedtime. 7. H/O hypertension. off Rx. 8. GI prophylaxis prophylaxis. Pepcid. 9. DVT prophylaxis Heparin subcu twice daily. 10. Chronic thrombocytopenia. Patient has been seen by Dr. Roth in the past. No treatment required. Full code. Discharge plan: [facility] on Saturday Impression and plan of care have been directed as dictated by the signing physician. Glenis Hernandez nurse practitioner acting as scribe for signing physician.
[2019-06-27] MEDS: FERROUS SULFATE 325 MG TAB PO SCH (16:48)
[2019-06-27] MEDS: MIRTAZAPINE 15 MG TAB PO SCH (21:36)
[2019-06-27] MEDS: SERTRALINE 100 MG TAB PO SCH (21:36)
[2019-06-28] MEDS: LOPERAMIDE 2 MG CAP PO PRN (05:48)
[2019-06-28 07:07] LABS: Glucose,Whole Blood 118 mg/dL (75-99)
[2019-06-28] MEDS: LINAGLIPTIN 5 MG TABLET PO SCH (09:21)
[2019-06-28] MEDS: ALPRAZolam 0.5 MG TAB PO PRN ×2 (09:21→20:53)
[2019-06-28] MEDS: predniSONE 5 MG TAB PO SCH (09:21)
[2019-06-28] MEDS: HEPARIN SODIUM,PORCINE 5,000 UNIT/ML 1 ML VIAL SQ SCH ×2 (09:21→20:41)
[2019-06-28] MEDS: LACTATED RINGERS 1,000 ML IV SCH (09:22)
--- NOTE | 2019-06-28 11:46 | P.PN ---
Subjective Progress Note Date: 06/28/19 Principal diagnosis: S/P first tarsometatarsal joint fusion, right gastrocnemius recession, and an open reduction of a chronically dislocated first tarsometatarsal joint dislocation Patient is seen at bedside this am. She is S/P first tarsometatarsal joint fusion, right gastrocnemius recession, and open reduction of a chronically dislocated first tarsometatarsal joint dislocation on 06/25/2019. She is currently denying pain or other complaints other than lack of sleep. She denies calf pain, fevers, chills, chest pain, shortness of breath, nausea, vomiting, or new numbness of tingling of the right lower extremity. Objective - Vital Signs Vital signs: Vital Signs Temp 99.3 F 06/28/19 07:00 Pulse 91 06/28/19 07:00 Resp 18 06/28/19 07:00 BP 139/75 06/28/19 07:00 Pulse Ox 95 06/28/19 07:00 Intake & Output 06/27/19 06/28/19 06/28/19 18:59 06:59 18:59 Intake Total 972 296 Output Total 200 Balance 972 96 Intake: Intake, IV Titration 140 Amount Lactated Ringers 1,000 ml 140 @ 100 mls/hr IV .Q10H [facility] Rx#:[id number] Oral 832 296 Output: Stool 200 Other: Voiding Method Bedside Commode Bedside Commode Bedside Commode - Exam On examination, the patient is sitting up in bed in no apparent distress. She is alert and oriented 3. On inspection of the right lower extremity, there is a bulky Christie splint in place. There appears to be no active bleeding or drainage through the splint. The visible portion of the toes are warm and well perfused with brisk capillary refill. There is no pain with passive range of motion of the toes. Motor and sensory function appear to be intact through the right lower extremity. Left calf is soft and nontender to palpation. - Constitutional General appearance: Present: no acute distress - Labs CBC & Chem 7: 06/25/19 14:09 Labs: Abnormal Lab Results - Last 24 Hours (Table) 06/28/19 Range/Units 06:56 POC Glucose (mg/dL) 118 H (75-99) mg/dL Assessment and Plan (1) Dislocation of tarsometatarsal joint Narrative/Plan: She has xanax ordered for anxiety TID, which she may have to help her rest - Strict nonweightbearing of the right lower extremity. Keep splint clean, dry, intact. - Physical therapy for gait and balance training. - Continue pain management. - DVT prophylaxis per internal medicine. - Anticipate discharge to rehab tomorrow, 06/29/2019. Status: Acute Priority: Medium Code(s): S93.326A - DISLOCATION OF TARSOMETATARSAL JOINT OF UNSP FOOT, INIT SNOMED Code(s): 236249040 Time with Patient: Less than 30
[2019-06-28] MEDS: MAGNESIUM OXIDE 400 MG TAB PO SCH (13:51)
[2019-06-28] MEDS: HYDROcodone/APAP 5-325MG 1 EACH TAB PO PRN (13:51)
[2019-06-28] MEDS: CALCIUM CARB-VIT D 500MG-200UN 1 EACH TAB PO SCH (13:51)
--- NOTE | 2019-06-28 15:19 | P.PN ---
Subjective Progress Note Date: 06/28/19 This is a 63-year-old female patient of Dr. Shrestha with past medical history of Crohn's disease status post ileostomy with chronic prednisone use at 20 mg daily, follows with Dr. Stanton, diagnosed 8 years ago, episodes of bleeding from stoma status post argon treatment in the past, type 2 diabetes, hepatitis C liver disease, osteoarthritis, history of kidney stones, chronic anemia, history of MRSA. History of wound infection to the right foot status [facility]. Patient has been brought into the hospital under the care of Dr. Olea status post first tarsometatarsal joint fusion, right gastocnemius resection and open reduction of a chronically dislocated first tarsometatarsal joint dislocation performed yesterday. The patient was having some mild nausea and lightheadedness last evening which has resolved. Patient is postop day #1. She denies any difficulty with pain control. No chest pain or shortness of breath. No nausea or vomiting. She is planning for subacute rehab at the time of discharge as she is strict nonweightbearing on the right side. 06/27: The patient states that she is feeling well. She is not sleeping well since she came in. Pain to right foot is controlled. She remains with large dressing in place and strict nonweightbearing. She has had good output from her ostomy. She is denies any symptoms from decrease in steroid from 20 mg daily to 15 mg. Patient has been afebrile, heart rate 74, blood pressure 136/78, pulse ox 93% on room air. Blood sugars running between 87 and 133. 06/28: Patient states that she continues to have difficulty sleeping and only slept 3 and half hours last night. She has been afebrile, heart rate 91, blood pressure 139/75, pulse ox 95% on room air. Blood sugars running between 87 and 133. Pain is currently controlled. Plan is for discharge on Saturday to rehab. Review of Systems Constitutional: Denies chills, Denies fatigue, Denies fever, Denies lethargy, Denies malaise, Denies poor appetite, Denies weakness Ears, nose, mouth and throat: Denies dysphagia, Denies headache, Denies nasal congestion, Denies nasal discharge, Denies sore throat, Denies vertigo Cardiovascular: Denies chest pain, Denies decreased exercise tolerance, Denies dyspnea on exertion, Denies edema, Denies leg edema, Denies lightheadedness, Denies shortness of breath, Denies syncope Respiratory: Denies cough, Denies cough with sputum, Denies dyspnea, Denies hemoptysis, Denies home oxygen, Denies wheezing Gastrointestinal: Denies abdominal pain, Denies diarrhea, Denies loss of appetite, Denies nausea, Denies vomiting Genitourinary: Denies dysuria, Denies hematuria, Denies urgency, Denies urinary frequency Musculoskeletal: Denies frequent falls, Denies gait dysfunction, Denies muscle weakness, Denies myalgias Integumentary: Denies pruritus, Denies rash Neurological: Reports gait dysfunction, Denies change in mentation, Denies confusion, Denies numbness, Denies seizures, Denies weakness Psychiatric: Denies anxiety, Denies depression Endocrine: Denies fatigue Objective - Vital Signs Vital signs: Vital Signs Temp 99.3 F 06/28/19 07:00 Pulse 91 06/28/19 07:00 Resp 18 06/28/19 07:00 BP 139/75 06/28/19 07:00 Pulse Ox 95 06/28/19 07:00 Intake & Output 06/27/19 06/28/19 06/28/19 18:59 06:59 18:59 Intake Total 972 296 Output Total 200 Balance 972 96 Intake: Intake, IV Titration 140 Amount Lactated Ringers 1,000 ml 140 @ 100 mls/hr IV .Q10H [facility] Rx#:[id number] Oral 832 296 Output: Stool 200 Other: Voiding Method Bedside Commode Bedside Commode Bedside Commode - Exam General appearance: average body habitus, no acute distress, resting in bed, son is at bedside - EENT Eyes: anicteric sclerae, EOMI, PERRLA, no ptosis, no scleral icterus, normal appearance ENT: hearing grossly normal, NA/AT, normal oropharynx Ears: bilateral: normal - Neck Neck: no lymphadenopathy, normal ROM, no rigidity, no stridor, no thyromegaly Carotids: bilateral: upstroke normal Thyroid: bilateral: normal size - Respiratory Respiratory: bilateral: diminished, negative: dullness, rales, rhonchi, wheezing, prolonged expiration, prolonged inspiration - Cardiovascular Rhythm: regular Heart sounds: normal: S1, S2 Abnormal Heart Sounds: systolic murmur - Gastrointestinal General gastrointestinal: normal bowel sounds, soft, tenderness (Illeostomy) - Integumentary Integumentary: normal, normal turgor - Neurologic Neurologic: CNII-XII intact - Musculoskeletal Musculoskeletal: generalized weakness, strength equal bilaterally Large dressing in place to the right lower extremity which was not removed for evaluation. - Psychiatric Psychiatric: A&O x's 3, appropriate affect, intact judgment & insight - Labs CBC & Chem 7: 06/25/19 14:09 Labs: Abnormal Lab Results - Last 24 Hours (Table) 06/28/19 Range/Units 06:56 POC Glucose (mg/dL) 118 H (75-99) mg/dL Assessment and Plan Plan: 1. 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 Patient is strict nonweightbearing on the right lower extremity. Continue pain management, PT and OT per orthopedics. Incentive spirometry to reduce incidence of atelectasis and hospital-acquired pneumonia. 2. Chronic kidney disease stage 3. Stable. 3. Type 2 diabetes - insulin sliding scale and Tradjenta 5 mg orally daily for . 4. Hepatitis C in remission - stable . 5. Crohn's disease status post ileostomy in 2007. Continue prednisone reduced to 15 mg daily. 6. Generalized anxiety disorder and recurrent depression. Continue Xanax at reduced dose of 0.5 mg 3 times daily as needed, continue Remeron 15 mg at bedtime, Zoloft 100 mg at bedtime. 7. H/O hypertension. off Rx. 8. GI prophylaxis prophylaxis. Pepcid. 9. DVT prophylaxis Heparin subcu twice daily. 10. Chronic thrombocytopenia. Patient has been seen by Dr. Roth in the past. No treatment required. Full code. Discharge plan: [facility] on Saturday under the care of Dr. Kothari Impression and plan of care have been directed as dictated by the signing physician. Glenis Hernandez nurse practitioner acting as scribe for signing physician.
[2019-06-28] MEDS: SERTRALINE 100 MG TAB PO SCH (20:51)
[2019-06-28] MEDS: MIRTAZAPINE 15 MG TAB PO SCH (20:51)
[2019-06-28 20:56] LABS: Glucose,Whole Blood 91 mg/dL (75-99)
[2019-06-29] MEDS: HYDROcodone/APAP 5-325MG 1 EACH TAB PO PRN ×2 (01:11→23:29)
[2019-06-29] MEDS: LOPERAMIDE 2 MG CAP PO PRN ×2 (06:15→19:31)
[2019-06-29 07:24] LABS: Glucose,Whole Blood 95 mg/dL (75-99)
[2019-06-29] MEDS: predniSONE 5 MG TAB PO SCH (08:31)
[2019-06-29] MEDS: LINAGLIPTIN 5 MG TABLET PO SCH (08:32)
[2019-06-29] MEDS: HEPARIN SODIUM,PORCINE 5,000 UNIT/ML 1 ML VIAL SQ SCH ×2 (08:33→20:58)
--- NOTE | 2019-06-29 08:40 | P.DS ---
Providers Expected date of discharge: 06/29/19 Attending physician: Armani Olea Consults: 06/25/19 11:00 Consult Physician Routine Consulting Provider: Albaro Maria Consult Reason/Comments: Medical management Do you want consulting provider notified?: Yes Primary care physician: [facility] Course: This is a 63-year-old female with a past medical history of chronic prednisone use, Crohn's disease status-post ileostomy, hepatitis C liver disease, and peripheral neuropathy that was seen by Dr. Olea for an injury she sustained about a year ago. She was initially managed nonoperatively, although due to worsening deformity of the foot and development of a superficial ulcer the plantar foot, surgery was recommended. The patient underwent a first tarsometatarsal joint fusion, right gastrocnemius recession, and an open reduction of a chronically dislocated first tarsometatarsal joint dislocation on 06/25/2019. The patient was admitted to [facility] following this procedure. Procedure was performed without complication or sequelae. Patient is doing well on postoperative day #4. Vital signs and postoperative labs are stable. Patient was seen at bedside today and she has no new complaints. She states she is experiencing no pain in the right lower extremity. She is having minimal issues remaining nonweightbearing on the right lower extremity. The patient is transferring to the bedside commode with a walker with minimal assistance. She denies chest pain, shortness of breath, fevers, chills, abdominal pain, or dysuria. On exam the patient is sitting up in bed in no acute distress. Patient is alert and oriented 3. A Bulky Christie splint is in place to the right lower extremity. The toes are warm and well perfused with brisk capillary refill. Sensation is intact to the toes. There is no pain to passive range of motion of toes. She is able to actively move her toes without difficulty. Left calf if soft and nontender. Left dorsalis pedis pulse +2. The patient is discharged to rehab in good condition, pending medical clearance. Please see discharge orders. Please refer to the med rec for accurate list of medications. Plan - Discharge Summary Discharge Rx Participant: Yes New Discharge Prescriptions: New Docusate [Colace] 100 mg PO BID #60 capsule Hydrocodone/Acetaminophen [Coram 5-325] 1 tab PO Q4-6H PRN #40 tab PRN Reason: Pain Cholecalciferol (Vitamin D3) [Vitamin D3] 2,000 unit PO DAILY #30 capsule No Action Mirtazapine [Remeron] 15 mg PO HS predniSONE 20 mg PO DAILY Sertraline HCl [Zoloft] 100 mg PO HS ALPRAZolam [Xanax] 1 mg PO TID PRN PRN Reason: Anxiety Cranberry Fruit Concentrate [Azo Cranberry] 1,000 mg PO 1200 Loperamide HCl [Imodium A-D] 2 mg PO TID PRN PRN Reason: Diarrhea Ferrous Sulfate [Feosol] 325 mg PO Q48H Cinnamon Bark [Cinnamon] 2,000 mg PO 1200 Magnesium Oxide [Mag-Ox] 250 mg PO 1200 Cholecalciferol (Vitamin D3) [Vitamin D3] 15,000 unit PO BID Calcium Carbonate/Vitamin D3 [Calcium 600-Vit D3 800 Caplet] 1 each PO 1200 Januvia(Dose Unknown) 1 tab PO QAM Discharge Medication List Mirtazapine [Remeron] 15 mg PO HS 06/11/17 [History] predniSONE 20 mg PO DAILY 06/11/17 [History] Sertraline HCl [Zoloft] 100 mg PO HS 07/26/17 [History] ALPRAZolam [Xanax] 1 mg PO TID PRN 01/29/18 [History] Cranberry Fruit Concentrate [Azo Cranberry] 1,000 mg PO 1200 05/01/18 [History] Loperamide HCl [Imodium A-D] 2 mg PO TID PRN 05/01/18 [History] Calcium Carbonate/Vitamin D3 [Calcium 600-Vit D3 800 Caplet] 1 each PO 1200 06/19/19 [History] Cholecalciferol (Vitamin D3) [Vitamin D3] 15,000 unit PO BID 06/19/19 [History] Cinnamon Bark [Cinnamon] 2,000 mg PO 1200 06/19/19 [History] Ferrous Sulfate [Feosol] 325 mg PO Q48H 06/19/19 [History] Januvia(Dose Unknown) 1 tab PO QAM 06/19/19 [History] Magnesium Oxide [Mag-Ox] 250 mg PO 1200 06/19/19 [History] Docusate [Colace] 100 mg PO BID #60 capsule 06/26/19 [Rx] Hydrocodone/Acetaminophen [Coram 5-325] 1 tab PO Q4-6H PRN #40 tab 06/26/19 [Rx] Cholecalciferol (Vitamin D3) [Vitamin D3] 2,000 unit PO DAILY #30 capsule 06/29/19 [Rx] Follow up Appointment(s)/Referral(s): [facility], [NON-STAFF] - 1 Week Armani Olea MD [Medical Doctor] - 2 Weeks Activity/Diet/Wound Care/Special Instructions: -Strict non-weight bearing on your operative leg. Do not remove your splint; Keep splint clean, dry, and intact -Use crutches, knee scooter, or a walker to ambulate after surgery. -Elevate and ice operative leg to help reduce swelling and control pain. -Take pain medications as prescribed. DVT prophylaxis per internal medicine team. -Follow-up appointment with Dr. Olea in the office in 2 weeks. -Call the office with any questions or concerns, Discharge Disposition: TRANSFER TO SNF/ECF
[2019-06-29] MEDS: MAGNESIUM OXIDE 400 MG TAB PO SCH (11:36)
[2019-06-29] MEDS: CALCIUM CARB-VIT D 500MG-200UN 1 EACH TAB PO SCH (11:36)
--- NOTE | 2019-06-29 14:22 | P.PN ---
Subjective Progress Note Date: 06/29/19 This is a 63-year-old female patient of Dr. Shrestha with past medical history of Crohn's disease status post ileostomy with chronic prednisone use at 20 mg daily, follows with Dr. Stanton, diagnosed 8 years ago, episodes of bleeding from stoma status post argon treatment in the past, type 2 diabetes, hepatitis C liver disease, osteoarthritis, history of kidney stones, chronic anemia, history of MRSA. History of wound infection to the right foot status [facility]. Patient has been brought into the hospital under the care of Dr. Olea status post first tarsometatarsal joint fusion, right gastocnemius resection and open reduction of a chronically dislocated first tarsometatarsal joint dislocation performed yesterday. The patient was having some mild nausea and lightheadedness last evening which has resolved. Patient is postop day #1. She denies any difficulty with pain control. No chest pain or shortness of breath. No nausea or vomiting. She is planning for subacute rehab at the time of discharge as she is strict nonweightbearing on the right side. 06/27: The patient states that she is feeling well. She is not sleeping well since she came in. Pain to right foot is controlled. She remains with large dressing in place and strict nonweightbearing. She has had good output from her ostomy. She is denies any symptoms from decrease in steroid from 20 mg daily to 15 mg. Patient has been afebrile, heart rate 74, blood pressure 136/78, pulse ox 93% on room air. Blood sugars running between 87 and 133. 06/28: Patient states that she continues to have difficulty sleeping and only slept 3 and half hours last night. She has been afebrile, heart rate 91, blood pressure 139/75, pulse ox 95% on room air. Blood sugars running between 87 and 133. Pain is currently controlled. Plan is for discharge on Saturday to rehab. 06/29: Patient denies any new complaints. Pain is currently controlled. Discussed DVT prophylaxis and due to thrombocytopenia and history of bleeding from stoma, anticoagulation will not be used. Patient has agreed that she will be ambulatory at the shelter. She does understand the risk of not being on anticoagulation at this time. Patient is scheduled for discharge to [facility] once authorization has been obtained. Review of Systems Constitutional: Denies chills, Denies fatigue, Denies fever, Denies lethargy, Denies malaise, Denies poor appetite, Denies weakness Ears, nose, mouth and throat: Denies dysphagia, Denies headache, Denies nasal congestion, Denies nasal discharge, Denies sore throat, Denies vertigo Cardiovascular: Denies chest pain, Denies decreased exercise tolerance, Denies dyspnea on exertion, Denies edema, Denies leg edema, Denies lightheadedness, Denies shortness of breath, Denies syncope Respiratory: Denies cough, Denies cough with sputum, Denies dyspnea, Denies hemoptysis, Denies home oxygen, Denies wheezing Gastrointestinal: Denies abdominal pain, Denies diarrhea, Denies loss of appetite, Denies nausea, Denies vomiting Genitourinary: Denies dysuria, Denies hematuria, Denies urgency, Denies urinary frequency Musculoskeletal: Denies frequent falls, Denies gait dysfunction, Denies muscle weakness, Denies myalgias, pain controlled Integumentary: Denies pruritus, Denies rash Neurological: Reports gait dysfunction, Denies change in mentation, Denies confusion, Denies numbness, Denies seizures, Denies weakness Psychiatric: Denies anxiety, Denies depression Endocrine: Denies fatigue Objective - Vital Signs Vital signs: Vital Signs Temp 97.8 F 06/29/19 07:00 Pulse 85 06/29/19 07:00 Resp 18 06/29/19 07:00 BP 135/81 06/29/19 07:00 Pulse Ox 96 06/29/19 07:00 Intake & Output 06/28/19 06/29/19 06/29/19 18:59 06:59 18:59 Intake Total 1100 Output Total 250 Balance 1100 -250 Intake: Intake, IV Titration 700 Amount Lactated Ringers 1,000 ml 700 @ 100 mls/hr IV .Q10H [facility], [facility] Rx#:[id number] Oral 400 Output: Stool 250 Other: Voiding Method Bedside Commode Bedside Commode # Voids 1 - Exam General appearance: average body habitus, no acute distress, resting in chair - EENT Eyes: anicteric sclerae, EOMI, PERRLA, no ptosis, no scleral icterus, normal appearance ENT: hearing grossly normal, NA/AT, normal oropharynx Ears: bilateral: normal - Neck Neck: no lymphadenopathy, normal ROM, no rigidity, no stridor, no thyromegaly Carotids: bilateral: upstroke normal Thyroid: bilateral: normal size - Respiratory Respiratory: bilateral: diminished, negative: dullness, rales, rhonchi, wheezing, prolonged expiration, prolonged inspiration - Cardiovascular Rhythm: regular Heart sounds: normal: S1, S2 Abnormal Heart Sounds: systolic murmur - Gastrointestinal General gastrointestinal: normal bowel sounds, soft, tenderness (Illeostomy) - Integumentary Integumentary: normal, normal turgor - Neurologic Neurologic: CNII-XII intact - Musculoskeletal Musculoskeletal: generalized weakness, strength equal bilaterally Large dressing in place to the right lower extremity which was not removed for evaluation. - Psychiatric Psychiatric: A&O x's 3, appropriate affect, intact judgment & insight - Labs CBC & Chem 7: 06/25/19 14:09 Assessment and Plan Plan: 1. 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 Patient is strict nonweightbearing on the right lower extremity. Continue pain management, PT and OT per orthopedics. Incentive spirometry to reduce incidence of atelectasis and hospital-acquired pneumonia. 2. Chronic kidney disease stage 3. Stable. 3. Type 2 diabetes - insulin sliding scale and Tradjenta 5 mg orally daily for Januvia. 4. Hepatitis C in remission - stable . 5. Crohn's disease status post ileostomy in 2007. Continue prednisone reduced to 15 mg daily. 6. Generalized anxiety disorder and recurrent depression. Continue Xanax at reduced dose of 0.5 mg 3 times daily as needed, continue Remeron 15 mg at bedtime, Zoloft 100 mg at bedtime. 7. H/O hypertension. off Rx. 8. GI prophylaxis prophylaxis. Pepcid. 9. DVT prophylaxis no DVT prophylaxis with a shelter secondary to thrombocytopenia and history of bleeding from stoma. 10. Chronic thrombocytopenia. Patient has been seen by Dr. Roth in the past. No treatment required. Full code. Discharge plan: [facility] today under the care of Dr. Kothari Impression and plan of care have been directed as dictated by the signing physician. Glenis Hernandez nurse practitioner acting as scribe for signing physician.
[2019-06-29] MEDS: FERROUS SULFATE 325 MG TAB PO SCH (16:43)
[2019-06-29] MEDS: LACTATED RINGERS 1,000 ML IV SCH ×3 (19:28→23:24)
[2019-06-29 20:32] LABS: Glucose,Whole Blood 188 mg/dL (75-99)
[2019-06-29] MEDS: ALPRAZolam 0.5 MG TAB PO PRN (22:39)
[2019-06-29] MEDS: SERTRALINE 100 MG TAB PO SCH (22:39)
[2019-06-29] MEDS: MIRTAZAPINE 15 MG TAB PO SCH (22:39)
[2019-06-30 02:10] VITALS: TEMP 97.8
[2019-06-30 03:36] VITALS: RESP 16
[2019-06-30] MEDS: LOPERAMIDE 2 MG CAP PO PRN ×2 (06:32→09:27)
[2019-06-30 07:24] LABS: Glucose,Whole Blood 85 mg/dL (75-99)
[2019-06-30 07:48] VITALS: BP 112/73; PULSE 71
[2019-06-30] MEDS: HEPARIN SODIUM,PORCINE 5,000 UNIT/ML 1 ML VIAL SQ SCH (09:16)
[2019-06-30] MEDS: predniSONE 5 MG TAB PO SCH (09:27)
[2019-06-30] MEDS: LINAGLIPTIN 5 MG TABLET PO SCH (09:27)
[2019-06-30 11:19] LABS: HCT 31.9 % (34.0-46.0); HGB 10.7 gm/dL (11.4-16.0); MCH 34.5 pg (25.0-35.0); MCHC 33.5 g/dL (31.0-37.0); MCV 102.7 fL (80.0-100.0); Macrocytosis Slight; Mean Platelet Volume 8.5; RBC 3.11 m/uL (3.80-5.40); RDW 15.3 % (11.5-15.5); WBC 8.2 k/uL (3.8-10.6)
[2019-06-30 11:29] LABS: Calcium 8.6 mg/dL (8.4-10.2); Platelet Count 99 k/uL (150-450); Potassium 3.7 mmol/L (3.5-5.1)
[2019-06-30] MEDS: ALPRAZolam 0.5 MG TAB PO PRN (12:24)
[2019-06-30] MEDS ORDERED: predniSONE 5 MG TAB PO SCH (12:30)
[2019-06-30] MEDS: LACTATED RINGERS 1,000 ML IV SCH (12:31)
--- NOTE | 2019-06-30 14:55 | P.PN ---
Subjective Progress Note Date: 06/30/19 This is a 63-year-old female patient of Dr. Shrestha with past medical history of Crohn's disease status post ileostomy with chronic prednisone use at 20 mg daily, follows with Dr. Stanton, diagnosed 8 years ago, episodes of bleeding from stoma status post argon treatment in the past, type 2 diabetes, hepatitis C liver disease, osteoarthritis, history of kidney stones, chronic anemia, history of MRSA. History of wound infection to the right foot status [facility]. Patient has been brought into the hospital under the care of Dr. Olea status post first tarsometatarsal joint fusion, right gastocnemius resection and open reduction of a chronically dislocated first tarsometatarsal joint dislocation performed yesterday. The patient was having some mild nausea and lightheadedness last evening which has resolved. Patient is postop day #1. She denies any difficulty with pain control. No chest pain or shortness of breath. No nausea or vomiting. She is planning for subacute rehab at the time of discharge as she is strict nonweightbearing on the right side. 06/27: The patient states that she is feeling well. She is not sleeping well since she came in. Pain to right foot is controlled. She remains with large dressing in place and strict nonweightbearing. She has had good output from her ostomy. She is denies any symptoms from decrease in steroid from 20 mg daily to 15 mg. Patient has been afebrile, heart rate 74, blood pressure 136/78, pulse ox 93% on room air. Blood sugars running between 87 and 133. 06/28: Patient states that she continues to have difficulty sleeping and only slept 3 and half hours last night. She has been afebrile, heart rate 91, blood pressure 139/75, pulse ox 95% on room air. Blood sugars running between 87 and 133. Pain is currently controlled. Plan is for discharge on Saturday to rehab. 06/29: Patient denies any new complaints. Pain is currently controlled. Discussed DVT prophylaxis and due to thrombocytopenia and history of bleeding from stoma, anticoagulation will not be used. Patient has agreed that she will be ambulatory at the alf. She does understand the risk of not being on anticoagulation at this time. Patient is scheduled for discharge to [facility] once authorization has been obtained. 06/30: Issues with discharge to [facility] have been resolved. Patient is complaining of bleeding from the ostomy site. Repeat lab work ordered which revealed hemoglobin of 10.7, platelet count 99, white count 8.2, BUN 36 creatinine 1.25. Patient is concerned that she may be getting a urinary tract infection. UA and reflex culture has been ordered. Patient is requesting that prednisone be resumed at the full 20 mg daily which she has been on for years. This has been changed on the medication reconciliation and [facility] liaison has been updated. Review of Systems Constitutional: Denies chills, Denies fatigue, Denies fever, Denies lethargy, Denies malaise, Denies poor appetite, Denies weakness Ears, nose, mouth and throat: Denies dysphagia, Denies headache, Denies nasal congestion, Denies nasal discharge, Denies sore throat, Denies vertigo Cardiovascular: Denies chest pain, Denies decreased exercise tolerance, Denies dyspnea on exertion, Denies edema, Denies leg edema, Denies lightheadedness, Denies shortness of breath, Denies syncope Respiratory: Denies cough, Denies cough with sputum, Denies dyspnea, Denies hemoptysis, Denies home oxygen, Denies wheezing Gastrointestinal: Denies abdominal pain, Denies diarrhea, Denies loss of appetite, Denies nausea, Denies vomiting Genitourinary: Denies dysuria, Denies hematuria, Denies urgency, Denies urinary frequency, reports foul-smelling urine. Musculoskeletal: Denies frequent falls, Denies gait dysfunction, Denies muscle weakness, Denies myalgias, pain controlled Integumentary: Denies pruritus, Denies rash Neurological: Reports gait dysfunction, Denies change in mentation, Denies confusion, Denies numbness, Denies seizures, Denies weakness Psychiatric: Denies anxiety, Denies depression Endocrine: Denies fatigue Objective - Vital Signs Vital signs: Vital Signs Temp 97.8 F 06/30/19 07:00 Pulse 71 06/30/19 07:00 Resp 16 06/30/19 07:00 BP 112/73 06/30/19 07:00 Pulse Ox 96 06/30/19 07:00 Intake & Output 06/29/19 06/30/19 06/30/19 18:59 06:59 18:59 Output Total 350 Balance -350 Output: Stool 350 Other: Voiding Method Bedside Commode Toilet # Voids 2 # Bowel Movements 3 - Exam General appearance: average body habitus, no acute distress, resting in bed, patient appears comfortable - EENT Eyes: anicteric sclerae, EOMI, PERRLA, no ptosis, no scleral icterus, normal appearance ENT: hearing grossly normal, NA/AT, normal oropharynx Ears: bilateral: normal - Neck Neck: no lymphadenopathy, normal ROM, no rigidity, no stridor, no thyromegaly Carotids: bilateral: upstroke normal Thyroid: bilateral: normal size - Respiratory Respiratory: bilateral: diminished, negative: dullness, rales, rhonchi, wheezing, prolonged expiration, prolonged inspiration - Cardiovascular Rhythm: regular Heart sounds: normal: S1, S2 Abnormal Heart Sounds: systolic murmur - Gastrointestinal General gastrointestinal: normal bowel sounds, soft, tenderness (Illeostomy) - Integumentary Integumentary: normal, normal turgor - Neurologic Neurologic: CNII-XII intact - Musculoskeletal Musculoskeletal: generalized weakness, strength equal bilaterally Large dressing in place to the right lower extremity which was not removed for evaluation. - Psychiatric Psychiatric: A&O x's 3, appropriate affect, intact judgment & insight - Labs CBC & Chem 7: 06/30/19 10:42 06/30/19 10:42 Labs: Abnormal Lab Results - Last 24 Hours (Table) 06/29/19 Range/Units 20:20 POC Glucose (mg/dL) 188 H (75-99) mg/dL Assessment and Plan Plan: 1. 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 Patient is strict nonweightbearing on the right lower extremity. Continue pain management, PT and OT per orthopedics. Incentive spirometry to reduce incidence of atelectasis and hospital-acquired pneumonia. 2. Chronic kidney disease stage 3. Stable. 3. Type 2 diabetes - insulin sliding scale and Tradjenta 5 mg orally daily for Januvia. 4. Hepatitis C in remission - stable . 5. Crohn's disease status post ileostomy in 2007. Prednisone will be increased back to 20 mg daily. 6. Generalized anxiety disorder and recurrent depression. Continue Xanax at reduced dose of 0.5 mg 3 times daily as needed, continue Remeron 15 mg at bedtime, Zoloft 100 mg at bedtime. 7. H/O hypertension. off Rx. 8. GI prophylaxis prophylaxis. Pepcid. 9. DVT prophylaxis no DVT prophylaxis with a alf secondary to thrombocytopenia and history of bleeding from stoma. 10. Chronic thrombocytopenia. Patient has been seen by Dr. Roth in the past. No treatment required. Full code. Discharge plan: [facility] today under the care of Dr. Kothari Impression and plan of care have been directed as dictated by the signing physician. Glenis Hernandez nurse practitioner acting as scribe for signing physician.
[2019-06-30] MEDS: MAGNESIUM OXIDE 400 MG TAB PO SCH (15:32)
[2019-06-30 18:02] LABS: Appearance,Urine Clear (Clear); Bacteria,Urine Rare /hpf; Bilirubin,Urine Negative (Negative); Blood,Urine Trace (Negative); Color,Urine Light Yellow; Glucose,Urine (UA) Negative (Negative); Ketones,Urine Negative (Negative); Leukocyte Esterase,Urine Large (Negative); Nitrite,Urine Negative (Negative); PH, Urine 6.5 (5.0-8.0); Protein,Urine Negative (Negative); RBC,Urine 1 /hpf (0-5); Specific Gravity,Urine 1.005 (1.001-1.035); Squamous Epithelial Cell,Urine <1 /hpf (0-4); Urobilinogen,Urine <2.0 mg/dL (<2.0); WBC,Urine 90 /hpf (0-5)
== END 2019-06-30 16:37 ==
LOC: OR 06:10 → EDSTATUS 08:00 → 4SSUR 11:12 → OR 06-30 16:37
PROVIDERS: ATTEND Orthopaedic Surgery
DX: S93.324A Dislocation of tarsometatarsal joint of right foot, initial encounter (principal); S92.324A Nondisplaced fracture of second metatarsal bone, right foot, initial encounter for closed fracture; M85.80 Other specified disorders of bone density and structure, unspecified site; D50.0 Iron deficiency anemia secondary to blood loss (chronic); K50.90 Crohn's disease, unspecified, without complications; B18.2 Chronic viral hepatitis C; E11.42 Type 2 diabetes mellitus with diabetic polyneuropathy; M19.90 Unspecified osteoarthritis, unspecified site; K21.9 Gastro-esophageal reflux disease without esophagitis; E11.22 Type 2 diabetes mellitus with diabetic chronic kidney disease; N18.3 Chronic kidney disease, stage 3 (moderate); H04.129 Dry eye syndrome of unspecified lacrimal gland; R01.1 Cardiac murmur, unspecified; R53.1 Weakness; F41.1 Generalized anxiety disorder; F33.9 Major depressive disorder, recurrent, unspecified; D69.6 Thrombocytopenia, unspecified; Z79.52 Long term (current) use of systemic steroids; Z88.1 Allergy status to other antibiotic agents; Z91.041 Radiographic dye allergy status; Z88.6 Allergy status to analgesic agent; Z88.8 Allergy status to other drugs, medicaments and biological substances; Z93.2 Ileostomy status; Z79.899 Other long term (current) drug therapy; Z79.84 Long term (current) use of oral hypoglycemic drugs; Z87.442 Personal history of urinary calculi; Z86.14 Personal history of Methicillin resistant Staphylococcus aureus infection; Z86.19 Personal history of other infectious and parasitic diseases; Z86.69 Personal history of other diseases of the nervous system and sense organs; Z90.49 Acquired absence of other specified parts of digestive tract; Z98.890 Other specified postprocedural states; Z90.710 Acquired absence of both cervix and uterus; Z96.641 Presence of right artificial hip joint; Z98.42 Cataract extraction status, left eye; Z98.41 Cataract extraction status, right eye; Z87.891 Personal history of nicotine dependence; Z91.048 Other nonmedicinal substance allergy status; Z86.79 Personal history of other diseases of the circulatory system; Z79.01 Long term (current) use of anticoagulants; Z86.31 Personal history of diabetic foot ulcer; Z82.49 Family history of ischemic heart disease and other diseases of the circulatory system; Z83.3 Family history of diabetes mellitus; Z80.9 Family history of malignant neoplasm, unspecified; X58.XXXA Exposure to other specified factors, initial encounter
CPT/HCPCS: 27687; 28615; 28740; 97530 ×2; 97162; 97535; 97166; 64447; 64450; 76942; 80048; 85025; 85027; 81001; 82306; 87086; 73620; C1713 ×3; J2250; J1100; J0690; J2405; J3010; J2795; J2704; J7512 ×2; 64445

== ENCOUNTER 2019-08-09 08:57 | Emergency (ER) | payer MEDICARE ==
[2019-08-09 09:03] VITALS: BP 112/74; PULSE 78; RESP 18; TEMP 98.4
[2019-08-09] MEDS ORDERED: MORPHINE SULFATE 4 MG/ML SYRINGE IVP STA (09:41)
[2019-08-09 10:00] LABS: Basophils # (A) 0.2 k/uL (0-0.2); Basophils % (A) 1 %; Eosinophils # (A) 0.7 k/uL (0-0.7); Eosinophils % (A) 6 %; HGB 13.3 gm/dL (11.4-16.0); Lymphocytes # (A) 1.3 k/uL (1.0-4.8); Lymphocytes % (A) 11 %; MCH 34.1 pg (25.0-35.0); MCHC 33.2 g/dL (31.0-37.0); MCV 102.9 fL (80.0-100.0); Macrocytosis Slight; Monocytes # (A) 0.7 k/uL (0-1.0); Monocytes % (A) 6 %; Neutrophils # (A) 8.8 k/uL (1.3-7.7); Neutrophils % (A) 75 %; Platelet Count 115 k/uL (150-450); RBC 3.89 m/uL (3.80-5.40); RDW 14.3 % (11.5-15.5); WBC 11.7 k/uL (3.8-10.6)
--- NOTE | 2019-08-09 10:10 | ED ---
Upper Extremity HPI - General Chief Complaint: Extremity Injury, Upper Stated Complaint: right arm pain Time Seen by Provider: 08/09/19 09:05 Source: patient Mode of arrival: ambulatory Limitations: no limitations - History of Present Illness Initial Comments: 63yo female with history of gout, high uric acid, chronic steroid use due to Crohns disease presenting to the ER today for cc of right wrist and fifth digit pain, redness, swelling. Patient states last night she noticed aching sensation in her right wrist and MCP joint. She states this morning pain increased and areas appear red and slightly swollen. Patient denies fever, flu like symptoms, general malaise, chest pain, SOB, diffuse hand or arm swelling. Patient states pain is sharp with ROM without radiation, denies falls, injury or trauma. Patient denies any other complaints and upon arrival patient appears nontoxic, however there is noted to be some splinting of the right UE. - Related Data Home Medications Medication Instructions Recorded Confirmed Mirtazapine [Remeron] 15 mg PO HS 06/11/17 06/19/19 Sertraline HCl [Zoloft] 100 mg PO HS 07/26/17 06/19/19 Cranberry Fruit Concentrate [Azo 1,000 mg PO 1200 05/01/18 06/25/19 Cranberry] Loperamide HCl [Imodium A-D] 2 mg PO TID PRN 05/01/18 06/25/19 Calcium Carbonate/Vitamin D3 1 each PO 1200 06/19/19 06/25/19 [Calcium 600-Vit D3 800 [place]] Cholecalciferol (Vitamin D3) 15,000 unit PO BID 06/19/19 06/25/19 [Vitamin D3] Cinnamon Bark [Cinnamon] 2,000 mg PO 1200 06/19/19 06/25/19 Ferrous Sulfate [Iron (65 MG 325 mg PO Q48H 06/19/19 06/25/19 Elemental)] Januvia(Dose Unknown) 1 tab PO QAM 06/19/19 06/25/19 Magnesium Oxide [Mag-Ox] 250 mg PO 1200 06/19/19 06/25/19 Previous Rx's Medication Instructions Recorded Docusate [Colace] 100 mg PO BID #60 capsule 06/26/19 Hydrocodone/Acetaminophen [[place] 1 tab PO Q4-6H PRN #40 tab 01/03/20 5-325] ALPRAZolam [Xanax] 0.5 mg PO TID PRN #9 tab 06/29/19 Cholecalciferol (Vitamin D3) 2,000 unit PO DAILY #30 capsule 06/29/19 [Vitamin D3] predniSONE [Deltasone] 20 mg PO DAILY #30 tab 06/30/19 Colchicine 0.6 mg PO ONCE 1 Days #1 capsule 08/09/19 Allergies Allergy/AdvReac Type Severity Reaction Status Date / Time adhesive tape Allergy Severe Rash/Hives/Skin Verified 06/19/19 13:35 Peeling levofloxacin [From Levaquin] Allergy Severe Swelling/ra Verified 06/19/19 13:35 sh Quinolones Allergy Severe Anaphylaxis Verified 06/19/19 13:35 /Swelling enoxaparin [From Lovenox] Allergy GI bleed Verified 06/19/19 13:35 Iodinated Contrast Media AdvReac Severe Chest Pain Verified 06/19/19 13:35 [Iodinated Contrast Media - IV Dye] NSAIDS (Non-Steroidal AdvReac Severe GI Verified 06/19/19 13:35 Anti-Inflamma Bleeding/Liver Damage warfarin [From Coumadin] AdvReac Severe Abdominal Verified 06/19/19 13:35 Pain Review of Systems ROS Statement: Those systems with pertinent positive or pertinent negative responses have been documented in the HPI. ROS Other: All systems not noted in ROS Statement are negative. Past Medical History Past Medical History: Blood Disorder, Diabetes Mellitus, GERD/Reflux, Hyperlipidemia, Hypertension, Liver Disease, Osteoarthritis (OA), Renal Disease Additional Past Medical History / Comment(s): crohns, hx. hep c, past hx. sepsis & ards 2007, has ileostomy, hx. kidney stones, hx. of infection,has spacer in, hx. anemia related to intermittent bleeding from stoma, has past hx., uti , low platelets septicemia. CHRONIC KIDNEY DISEASE. History of Any Multi-Drug Resistant Organisms: MRSA Date of last positivie culture/infection: 04/25/16 MDRO Source:: Blood & Right Hip Past Surgical History: Appendectomy, Bowel Resection, Cholecystectomy, Hernia Repair, Hysterectomy, Tubal Ligation Additional Past Surgical History / Comment(s): ileostomy 2009 WITH 3-4 RE- SUTURING EPISODES RELATED TO BLEEDING, ileoscopy w/argon gas coagulation of stoma, 10-22-16 revison rt toal hip arthroplasty Past Anesthesia/Blood Transfusion Reactions: No Reported Reaction Past Psychological History: Anxiety Smoking Status: Former smoker Past Alcohol Use History: None Reported Past Drug Use History: None Reported - Past Family History Mother Family Medical History: CVA/TIA, Diabetes Mellitus Additional Family Medical History / Comment(s): Mother at age 88 from CVA. Sister(s) Additional Family Medical History / Comment(s): Patient has 3 sisters with no major medical problems. Patient does not have any brothers. Patient has 2 sons with no major medical problems. Father Family Medical History: Cancer Additional Family Medical History / Comment(s): . General Exam Limitations: no limitations Course Vital Signs 08/09/19 08:59 Temperature 98.4 F Pulse Rate 78 Respiratory 18 Rate Blood Pressure 112/74 O2 Sat by Pulse 93 L Oximetry Medical Decision Making - Medical Decision Making 63 with history of gout, high uric acid presenting for right wrist and mcp pain. Mild swelling, redness. XR (-) for acute process. Uric acid elevated, mild leukocytosis however patient is on chronic steroids. Patient CRP WNL. Patient afebrile, well appearing. GFR >30. Discussed treatement options with patient as she is unable to take NSAIDs and he said that he would do colchicine. Patient given one dose 1.2mg, then ordered an outpatient 1 hr 0.6mg dose. Instruction to take tylenol for pain, continue steroids and f/u with Dr. Lutz who patient states has managed her gout in the past. Patient also see's her orthopedic surgeon next week. I discussed importance of return to ER for worsening symptoms and fevers. patient discharged appearing well agreeable to care plan. Patient denied using colchicine as prophylaxis medication. - Lab Data Result diagrams: 08/09/19 09:53 08/09/19 09:53 Lab Results 08/09/19 08/09/19 Range/Units 09:53 09:53 WBC 11.7 H (3.8-10.6) k/uL RBC 3.89 (3.80-5.40) m/uL Hgb 13.3 (11.4-16.0) gm/dL Hct 40.0 (34.0-46.0) % MCV 102.9 H (80.0-100.0) fL MCH 34.1 (25.0-35.0) pg MCHC 33.2 (31.0-37.0) g/dL RDW 14.3 (11.5-15.5) % Plt Count 115 L (150-450) k/uL Neutrophils % 75 % Lymphocytes % 11 % Monocytes % 6 % Eosinophils % 6 % Basophils % 1 % Neutrophils # 8.8 H (1.3-7.7) k/uL Lymphocytes # 1.3 (1.0-4.8) k/uL Monocytes # 0.7 (0-1.0) k/uL Eosinophils # 0.7 (0-0.7) k/uL Basophils # 0.2 (0-0.2) k/uL Macrocytosis Slight Sodium 138 (137-145) mmol/L Potassium 4.3 (3.5-5.1) mmol/L Chloride 95 L (98-107) mmol/L Carbon Dioxide 35 H (22-30) mmol/L Anion Gap 8 mmol/L BUN 36 H (7-17) mg/dL Creatinine 1.52 H (0.52-1.04) mg/dL Est GFR (CKD-EPI)AfAm 42 (>60 ml/min/1.73 sqM) Est GFR (CKD-EPI)NonAf 37 (>60 ml/min/1.73 sqM) Glucose 96 (74-99) mg/dL Uric Acid 10.6 H (3.7-7.4) mg/dL Calcium 9.5 (8.4-10.2) mg/dL Total Bilirubin 0.8 (0.2-1.3) mg/dL AST 35 (14-36) U/L ALT 23 (4-34) U/L Alkaline Phosphatase 44 (38-126) U/L C-Reactive Protein 8.4 (<10.0) mg/L Total Protein 7.2 (6.3-8.2) g/dL Albumin 4.3 (3.5-5.0) g/dL Disposition Clinical Impression: Right wrist pain, Right hand pain, Elevated uric acid in blood, Hx of gout Disposition: HOME SELF-CARE Condition: Good Instructions (If sedation given, give patient instructions): Gout (ED), Swollen Joint (ED) Additional Instructions: Please use medication as discussed. Please follow-up with family doctor in the next 2 days, if pain, redness/swelling worsening or develop fevers, please return to the ER. Please return to emergency room if the symptoms increase or worsen or for any other concerns. Prescriptions: Colchicine 0.6 mg PO ONCE 1 Days #1 capsule Is patient prescribed a controlled substance at d/c from ED?: No Referrals: Antonio Kothari MD [Primary Care Provider] - 1-2 days Jason Ordonez DO [Medical Doctor] - 1-2 days Time of Disposition: 10:27
[2019-08-09 10:15] LABS: Albumin 4.3 g/dL (3.5-5.0); C Reactive Protein 8.4 mg/L (<10.0); Calcium 9.5 mg/dL (8.4-10.2); Potassium 4.3 mmol/L (3.5-5.1); Total Bilirubin 0.8 mg/dL (0.2-1.3); Total Protein 7.2 g/dL (6.3-8.2); Uric Acid 10.6 mg/dL (3.7-7.4)
--- NOTE | 2019-08-09 10:19 | XR ---
EXAMINATION TYPE: XR wrist complete RT , 4 VIEWS DATE OF EXAM ORDERED: 08/09/2019 HISTORY: gout hx/ red joint. COMPARISON: None. FINDINGS: The bones are osteopenic. No fracture or dislocation is seen. There is arterial calcificat ion present. There are degenerative changes in the triscaphe joint as well as at the base of the thum b. No gouty tophi or gouty erosions are seen. IMPRESSION: DEGENERATIVE CHANGES MOST COMPATIBLE WITH OSTEOARTHRITIS.
--- NOTE | 2019-08-09 10:20 | XR ---
EXAMINATION TYPE: XR hand complete RT , 3 VIEWS DATE OF EXAM ORDERED: 08/09/2019 HISTORY: red 5th MCP. COMPARISON: None. FINDINGS: The bones are osteopenic. There are degenerative changes in the first carpal metacarpal joan int as well as the triscaphe joint. There is vascular calcification. No fracture or dislocation is se en. No gouty tophi are seen. IMPRESSION: CHANGES MOST CONSISTENT WITH OSTEOARTHRITIS.
[2019-08-09] MEDS ORDERED: ACET/COD 300 MG/30 MG STARTER PACK 6 TAB BTL PO STA (10:28)
[2019-08-09] MEDS ORDERED: COLCHICINE 0.6 MG EACH PO SCH (10:30)
[2019-08-09] MEDS ORDERED: HYDROmorphone 0.5 MG/0.5 ML SYRINGE IM STA (10:45)
== END 2019-08-09 11:20 | disposition home or self-care (01) ==
LOC: EC 08:57
DX: M25.531 Pain in right wrist (principal); M79.641 Pain in right hand; E79.0 Hyperuricemia without signs of inflammatory arthritis and tophaceous disease; Z87.39 Personal history of other diseases of the musculoskeletal system and connective tissue; E11.22 Type 2 diabetes mellitus with diabetic chronic kidney disease; I12.9 Hypertensive chronic kidney disease with stage 1 through stage 4 chronic kidney disease, or unspecified chronic kidney disease; N18.9 Chronic kidney disease, unspecified; F41.9 Anxiety disorder, unspecified; Z79.84 Long term (current) use of oral hypoglycemic drugs; Z79.899 Other long term (current) drug therapy; Z79.52 Long term (current) use of systemic steroids; Z91.048 Other nonmedicinal substance allergy status; Z88.1 Allergy status to other antibiotic agents; Z88.8 Allergy status to other drugs, medicaments and biological substances; Z88.6 Allergy status to analgesic agent; Z87.891 Personal history of nicotine dependence
CPT/HCPCS: 36415; 80053; 84550; 85025; 86140; 73110; 73130; 99283; 96374; 96372; J2270; J1170

== ENCOUNTER → 2019-08-10 | Outpatient (CLI) | payer MEDICARE ==
[~2019-08-10] MED LIST changes: -DEXAMETHASONE SOD PHOSPHATE 10 MG/ML 1 ML VIAL IV ONE; -HYDROmorphone 0.5 MG/0.5 ML SYRINGE IVP PRN; -LIDOCAINE 1% 20 ML VIAL (10MG/ML) FOR IV START INTRADERMA PRN; -METOCLOPRAMIDE 5 MG/ML 2 ML VIAL IVP PRN; -ONDANSETRON 4 MG/2 ML VIAL IVP ONE; +REGADENOSON 0.4 MG/5 ML SYRINGE IV ONE
--- NOTE | 2019-08-10 11:20 | EST ---
EXERCISE STRESS AGE: 63 SEX: F HT: 5'6" WT: 162 PROTOCOL: Lexiscan Cardiolite HEART RATE REST: 87 BLOOD PRESSURE REST: 124/68 MAXIMUM HEART RATE ACHIEVED: 99 MAXIMUM BLOOD PRESSURE: 101/53 85% MPHR: 135 100% MPHR: 159 INDICATIONS: Abnormal EKG CLINICAL INFORMATION: This is a 63-year-old female referred for Lexiscan Cardiolite stress test. Baseline heart rate 87 beats per minute. Baseline blood pressure 124/68 mmHg. Baseline 12-lead ECG shows full sinus rhythm with normal MT and normal ST segments. Patient received Lexiscan infusion per protocol. Baseline heart rate 87 beats per minute. Baseline blood pressure 124/68 mmHg. No significant change in heart rate. Mild asymptomatic drop in blood pressure that responded to saline infusion. There was no ECG evidence for ischemia. No arrhythmias were noted. The nuclear portion of the test will be reported separately. MMODL / IJN: [id number] /
--- NOTE | 2019-08-10 16:42 | NM ---
EXAMINATION TYPE: NM stress lexiscan cardiolite DATE OF EXAM: 08/10/2019 COMPARISON: NONE HISTORY: 63-year-old female hypertension, diabetes, hypercholesterolemia, family history, tobacco use . I21.09. Anteroseptal transmural MT. TECHNIQUE: After the intravenous administration of 9.4 mCi Tc 99m Sestamibi - Cardiolite resting SPE CT images acquired 45 minutes post injection. The patient received 0.4mg Lexiscan, 24.9 mCi Tc 99m Sestamibi - Stress images obtained [address] injection FINDINGS: Review of stress and rest SPECT images demonstrates prominent GI activity. Stress images show subtle small area of decreased perfusion along the mid anteroseptal wall. This is not corroborated bipolar m aps. Gated analysis shows normal wall motion with an estimated left ventricular ejection fraction of 70 %. TID is calculated at 1.13, within normal limits. IMPRESSION: The presence of artifacts limit assessment. Equivocal small area of reversibility along the mid anter oseptal wall is not corroborated on polar maps. Further clinical correlation recommended.
== END | disposition home or self-care (01) ==
LOC: RADNMMAIN 08:23
PROVIDERS: ATTEND Internal Medicine
DX: I21.09 ST elevation (STEMI) myocardial infarction involving other coronary artery of anterior wall (principal)
CPT/HCPCS: 93017; 78452; A9500; J2785

== ENCOUNTER 2020-01-26 14:45 | Inpatient (IN) | payer MEDICARE ==
[2020-01-26] MEDS ORDERED: PANTOPRAZOLE 40 MG/10 ML VIAL IVP STA (15:48)
--- NOTE | 2020-01-26 15:51 | ED ---
General Adult HPI - General Chief complaint: Recheck/Abnormal Lab/Rx Stated complaint: Issue with Ileostomy Bag Time Seen by Provider: 01/26/20 15:33 Source: patient, family, RN notes reviewed Mode of arrival: wheelchair Limitations: no limitations - History of Present Illness Initial comments: Patient is a pleasant 64-year-old female presenting to the emergency department with concerns for bleeding from her ostomy site. Patient has had bleeding in t he past however up until the past 10 days has been over a year. Patient states she has had several episodes, last was this morning. Patient does have some associated lightheadedness. No active bleeding at this time. Patient has previously needed blood transfusions for this. Bleeding appears bright red blood near the ostomy site - Related Data Home Medications Medication Instructions Recorded Confirmed Mirtazapine [Remeron] 15 mg PO HS 06/11/17 06/19/19 Sertraline HCl [Zoloft] 100 mg PO HS 07/26/17 06/19/19 Cranberry Fruit Concentrate [Azo 1,000 mg PO 1200 05/01/18 06/25/19 Cranberry] Loperamide HCl [Imodium A-D] 2 mg PO TID PRN 05/01/18 06/25/19 Calcium Carbonate/Vitamin D3 1 each PO 1200 06/19/19 06/25/19 [Calcium 600-Vit D3 800 Caplet] Cholecalciferol (Vitamin D3) 15,000 unit PO BID 06/19/19 06/25/19 [Vitamin D3] Cinnamon Bark [Cinnamon] 2,000 mg PO 1200 06/19/19 06/25/19 Ferrous Sulfate [Iron (65 MG 325 mg PO Q48H 06/19/19 06/25/19 Elemental)] Januvia(Dose Unknown) 1 tab PO QAM 06/19/19 06/25/19 Magnesium Oxide [Mag-Ox] 250 mg PO 1200 06/19/19 06/25/19 Previous Rx's Medication Instructions Recorded Docusate [Colace] 100 mg PO BID #60 capsule 06/26/19 Hydrocodone/Acetaminophen [Harriet 1 tab PO Q4-6H PRN #40 tab 06/26/19 5-325] ALPRAZolam [Xanax] 0.5 mg PO TID PRN #9 tab 06/29/19 Cholecalciferol (Vitamin D3) 2,000 unit PO DAILY #30 capsule 06/29/19 [Vitamin D3] predniSONE [Deltasone] 20 mg PO DAILY #30 tab 06/30/19 Colchicine 0.6 mg PO ONCE 1 Days #1 capsule 08/09/19 Allergies Allergy/AdvReac Type Severity Reaction Status Date / Time adhesive tape Allergy Severe Rash/Hives/Skin Verified 06/19/19 13:35 Peeling levofloxacin [From Levaquin] Allergy Severe Swelling/ra Verified 06/19/19 13:35 sh Quinolones Allergy Severe Anaphylaxis Verified 06/19/19 13:35 /Swelling enoxaparin [From Lovenox] Allergy GI bleed Verified 06/19/19 13:35 Iodinated Contrast Media AdvReac Severe Chest Pain Verified 06/19/19 13:35 [Iodinated Contrast Media - IV Dye] NSAIDS (Non-Steroidal AdvReac Severe GI Verified 06/19/19 13:35 Anti-Inflamma Bleeding/Liver Damage warfarin [From Coumadin] AdvReac Severe Abdominal Verified 06/19/19 13:35 Pain Review of Systems ROS Statement: Those systems with pertinent positive or pertinent negative responses have been documented in the HPI. ROS Other: All systems not noted in ROS Statement are negative. Constitutional: Denies: fever Eyes: Denies: eye pain ENT: Denies: ear pain Respiratory: Denies: cough Cardiovascular: Denies: chest pain Endocrine: Reports: fatigue Gastrointestinal: Reports: as per HPI. Denies: abdominal pain Genitourinary: Denies: dysuria Musculoskeletal: Denies: back pain Skin: Denies: rash Neurological: Denies: weakness Past Medical History Past Medical History: Blood Disorder, Diabetes Mellitus, GERD/Reflux, Hyperlipid emia, Hypertension, Liver Disease, Osteoarthritis (OA), Renal Disease Additional Past Medical History / Comment(s): crohns, hx. hep c, past hx. sepsis & ards 2007, has ileostomy, hx. kidney stones, hx. of infection,has spacer in, hx. anemia related to intermittent bleeding from stoma, has past hx., uti , low platelets septicemia. CHRONIC KIDNEY DISEASE. History of Any Multi-Drug Resistant Organisms: MRSA Date of last positivie culture/infection: 04/25/16 MDRO Source:: Blood & Right Hip Past Surgical History: Appendectomy, Bowel Resection, Cholecystectomy, Hernia Repair, Hysterectomy, Tubal Ligation Additional Past Surgical History / Comment(s): ileostomy 2009 WITH 3-4 RE- SUTURING EPISODES RELATED TO BLEEDING, ileoscopy w/argon gas coagulation of stoma, 10-22-16 revison rt toal hip arthroplasty Past Anesthesia/Blood Transfusion Reactions: No Reported Reaction Past Psychological History: Anxiety Smoking Status: Never smoker Past Alcohol Use History: None Reported Past Drug Use History: None Reported - Past Family History Mother Family Medical History: CVA/TIA, Diabetes Mellitus Additional Family Medical History / Comment(s): Mother at age 88 from CVA. Sister(s) Additional Family Medical History / Comment(s): Patient has 3 sisters with no major medical problems. Patient does not have any brothers. Patient has 2 sons with no major medical problems. Father Family Medical History: Cancer Additional Family Medical History / Comment(s): . General Exam Limitations: no limitations General appearance: alert, in no apparent distress Head exam: Present: normocephalic Eye exam: Present: normal appearance Neck exam: Present: normal inspection Respiratory exam: Present: normal lung sounds bilaterally Cardiovascular Exam: Present: regular rate, normal rhythm GI/Abdominal exam: Present: soft, other (Ostomy site appears well. No active bleeding. No black tarry stool.). Absent: distended, tenderness Extremities exam: Present: normal inspection Neurological exam: Present: alert Psychiatric exam: Present: normal affect, normal mood Skin exam: Present: normal color Course Vital Signs 01/26/20 15:10 Temperature 98.6 F Pulse Rate 80 Respiratory 16 Rate Blood Pressure 135/102 O2 Sat by Pulse 97 Oximetry Medical Decision Making - Medical Decision Making Patient reevaluated and updated. Case was discussed with Dr. Kothari who will admit his patient and agrees with one unit of packed red blood cells. He also request consultation with Dr. Melo. - Lab Data Result diagrams: 01/26/20 16:07 01/26/20 16:07 Lab Results 01/26/20 01/26/20 01/26/20 Range/Units 16:07 16:07 16:07 WBC 8.6 (3.8-10.6) k/uL RBC 2.03 L (3.80-5.40) m/uL Hgb 6.8 L* D (11.4-16.0) gm/dL Hct 20.6 L (34.0-46.0) % MCV 101.5 H (80.0-100.0) fL MCH 33.3 (25.0-35.0) pg MCHC 32.8 (31.0-37.0) g/dL RDW 19.0 H (11.5-15.5) % Plt Count 121 L (150-450) k/uL Neutrophils % 90 % Lymphocytes % 4 % Monocytes % 3 % Eosinophils % 1 % Basophils % 1 % Neutrophils # 7.8 H (1.3-7.7) k/uL Lymphocytes # 0.3 L (1.0-4.8) k/uL Monocytes # 0.3 (0-1.0) k/uL Eosinophils # 0.1 (0-0.7) k/uL Basophils # 0.1 (0-0.2) k/uL Hypochromasia Slight Poikilocytosis Moderate Anisocytosis Slight Macrocytosis Moderate PT 13.8 H (9.0-12.0) sec INR 1.4 H (<1.2) APTT 23.2 (22.0-30.0) sec Sodium 127 L (137-145) mmol/L Potassium 4.6 (3.5-5.1) mmol/L Chloride 90 L (98-107) mmol/L Carbon Dioxide 28 (22-30) mmol/L Anion Gap 9 mmol/L BUN 34 H (7-17) mg/dL Creatinine 1.23 H (0.52-1.04) mg/dL Est GFR (CKD-EPI)AfAm 55 (>60 ml/min/1.73 sqM) Est GFR (CKD-EPI)NonAf 47 (>60 ml/min/1.73 sqM) Glucose 131 H (74-99) mg/dL Calcium 8.0 L (8.4-10.2) mg/dL Total Bilirubin 1.0 (0.2-1.3) mg/dL AST 40 H (14-36) U/L ALT 25 (4-34) U/L Alkaline Phosphatase 30 L (38-126) U/L Total Protein 5.8 L (6.3-8.2) g/dL Albumin 3.5 (3.5-5.0) g/dL Critical Care Time Critical Care Time: Yes Total Critical Care Time: 31 Disposition Clinical Impression: Anemia, GI bleed Disposition: ADMITTED IP TO THIS [facility] Condition: Serious Is patient prescribed a controlled substance at d/c from ED?: No Referrals: Antonio Kothari MD [Primary Care Provider] - 1-2 days Decision Time: 16:38
[2020-01-26 16:17] LABS: Anisocytosis Slight; Basophils # (A) 0.1 k/uL (0-0.2); Basophils % (A) 1 %; Eosinophils # (A) 0.1 k/uL (0-0.7); Eosinophils % (A) 1 %; HCT 20.6 % (34.0-46.0); Hypochromasia Slight; Lymphocytes # (A) 0.3 k/uL (1.0-4.8); Lymphocytes % (A) 4 %; MCH 33.3 pg (25.0-35.0); MCHC 32.8 g/dL (31.0-37.0); MCV 101.5 fL (80.0-100.0); Macrocytosis Moderate; Mean Platelet Volume 7.9; Monocytes # (A) 0.3 k/uL (0-1.0); Monocytes % (A) 3 %; Neutrophils # (A) 7.8 k/uL (1.3-7.7); Neutrophils % (A) 90 %; Platelet Count 121 k/uL (150-450); Poikilocytosis Moderate; RBC 2.03 m/uL (3.80-5.40); WBC 8.6 k/uL (3.8-10.6)
[2020-01-26 16:25] LABS: HGB 6.8 gm/dL (11.4-16.0)
[2020-01-26 16:26] LABS: Albumin 3.5 g/dL (3.5-5.0); Potassium 4.6 mmol/L (3.5-5.1); Total Protein 5.8 g/dL (6.3-8.2)
[2020-01-26 16:27] LABS: INR 1.4 (<1.2); Partial Thromboplastin Time 23.2 sec (22.0-30.0); Prothrombin Time 13.8 sec (9.0-12.0)
[2020-01-26] MEDS ORDERED: NALOXONE 0.4 MG/ML 1 ML VIAL IV PRN (16:38)
[2020-01-26] MEDS: SODIUM CHLORIDE 0.9% 1,000 ML IV SCH (19:42)
[2020-01-26] MEDS ORDERED: LOPERAMIDE 2 MG CAP PO PRN (20:04)
[2020-01-26] MEDS ORDERED: FERROUS SULFATE 325 MG TAB PO PRN (20:04)
[2020-01-26] MEDS: SERTRALINE 100 MG TAB PO SCH (21:13)
[2020-01-26] MEDS: ALPRAZolam 1 MG TAB PO SCH (21:13)
[2020-01-26] MEDS: MIRTAZAPINE 15 MG TAB PO SCH (21:13)
[2020-01-26 23:45] LABS: Anisocytosis Slight; Basophils # (A) 0.1 k/uL (0-0.2); Basophils % (A) 1 %; Eosinophils # (A) 0.1 k/uL (0-0.7); Eosinophils % (A) 1 %; HCT 25.9 % (34.0-46.0); Hypochromasia Slight; Lymphocytes # (A) 0.7 k/uL (1.0-4.8); Lymphocytes % (A) 7 %; MCH 33.6 pg (25.0-35.0); MCHC 33.6 g/dL (31.0-37.0); Macrocytosis Slight; Mean Platelet Volume 7.7; Monocytes # (A) 0.4 k/uL (0-1.0); Monocytes % (A) 4 %; Neutrophils # (A) 8.4 k/uL (1.3-7.7); Neutrophils % (A) 87 %; Platelet Count 120 k/uL (150-450); Poikilocytosis Slight; RBC 2.59 m/uL (3.80-5.40); RDW 18.6 % (11.5-15.5); WBC 9.6 k/uL (3.8-10.6)
[2020-01-26 23:51] LABS: HGB 8.7 gm/dL (11.4-16.0)
[2020-01-27] MEDS: SODIUM CHLORIDE 0.9% 1,000 ML IV SCH ×2 (05:03→20:24)
--- NOTE | 2020-01-27 06:16 | P.HPIM ---
History of Present Illness H&P Date: 01/26/20 Chief Complaint: Acute blood loss anemia/stomal bleed This is a 64-year-old female patient of mine with past medical history of Crohn's disease status post ileostomy, type 2 diabetes, hepatitis C liver disease, osteoarthritis history of kidney stones, chronic iron deficiency anemia, with an issue with stomal bleed on and off, last happens about a year ago requiring blood transfusion, patient was at physical therapy when she was excercising on the bike when she noticed that she has been bleeding in her stoma , she came to my office last week and had labs that showed a hemoglobin of 10.2, was doing fine till this week when she has another episode with increased stomal bleed, yesterday she tripped and fell down on her right knee, then she felt a bit oozy, so she decided to come to the ER at [facility] where she was found to have a hemoglobin of 6.8 she was given 1 unit of PRBC and she was admitted to the hospital and surgery consultation was obtained. patient in the past was transferred to [facility] for similar episodes and was seen by rufina Stollnet did have upper and lower endoscopy along with capsule endoscopy by about a year ago. Review of Systems Constitutional: Reports fatigue, Reports weakness, Denies anorexia, Denies chronic headaches, Denies chronic pain Eyes: denies blurred vision, denies bulging eye, denies decreased vision Ears, nose, mouth and throat: Denies dysphagia, Denies neck lump, Denies sore throat Cardiovascular: Reports lightheadedness, Denies chest pain, Denies decreased exercise tolerance, Denies rapid heart beat, Denies shortness of breath, Denies syncope Respiratory: Denies congestion, Denies cough, Denies cough with sputum, Denies home oxygen, Denies sleep apnea, Denies snoring, Denies wheezing Gastrointestinal: Reports change in bowel habits, Denies abdominal pain, Denies belching, Denies bloating, Denies excessive gas, Denies heartburn, Denies hematemesis, Denies hematochezia, Denies melena, Denies nausea, Denies vomiting Genitourinary: Denies dysuria, Denies nocturia Menstruation: Reports postmenopausal Musculoskeletal: Reports frequent falls Musculoskeletal: right: knee pain, knee swelling, absent: ankle pain, ankle stiffness, ankle swelling, elbow pain, elbow stiffness, elbow swelling, foot pain, foot stiffness, foot swelling, hand pain, hand stiffness, hand swelling, hip pain, hip stiffness, hip swelling, shoulder pain, shoulder stiffness, shoulder swelling, wrist pain, wrist stiffness, wrist swelling Integumentary: Denies pruritus, Denies rash Neurological: Denies numbness, Denies weakness Psychiatric: Reports anxiety, Denies depression Endocrine: Denies fatigue, Denies weight change Past Medical History Past Medical History: Blood Disorder, Diabetes Mellitus, GERD/Reflux, Hyperlipidemia, Hypertension, Liver Disease, Osteoarthritis (OA), Renal Disease Additional Past Medical History / Comment(s): crohns, hx. hep c, past hx. s epsis & ards 2007, has ileostomy, hx. kidney stones, hx. of infection,has spacer in, hx. anemia related to intermittent bleeding from stoma, has past hx., uti , low platelets septicemia. CHRONIC KIDNEY DISEASE. History of Any Multi-Drug Resistant Organisms: MRSA Date of last positivie culture/infection: 04/25/16 MDRO Source:: Blood & Right Hip Past Surgical History: Appendectomy, Bowel Resection, Cholecystectomy, Hernia Repair, Hysterectomy, Tubal Ligation Additional Past Surgical History / Comment(s): ileostomy 2009 WITH 3-4 RE- SUTURING EPISODES RELATED TO BLEEDING, ileoscopy w/argon gas coagulation of stoma, 10-22-16 revison rt toal hip arthroplasty Past Anesthesia/Blood Transfusion Reactions: No Reported Reaction Past Psychological History: Anxiety Additional Psychological History / Comment(s): pt normally lives with her spouse and 1 pet dog in a single level home that has 3 steps in which to enter. but went [facility] after dc/d [facility]17 Smoking Status: Never smoker Past Alcohol Use History: None Reported Additional Past Alcohol Use History / Comment(s): started 1974, quit smoking 2007, 1ppd Past Drug Use History: None Reported - Past Family History Mother Family Medical History: CVA/TIA, Diabetes Mellitus Additional Family Medical History / Comment(s): Mother at age 88 from CVA. Sister(s) Additional Family Medical History / Comment(s): Patient has 3 sisters with no major medical problems. Patient does not have any brothers. Patient has 2 sons with no major medical problems. Father Family Medical History: Cancer Additional Family Medical History / Comment(s): . Medications and Allergies Home Medications Medication Instructions Recorded Confirmed Type Mirtazapine [Remeron] 15 mg PO HS 06/11/17 01/26/20 History Sertraline HCl [Zoloft] 100 mg PO HS 07/26/17 01/26/20 History Loperamide HCl [Imodium A-D] 2 mg PO TID PRN 05/01/18 01/26/20 History Calcium Carbonate/Vitamin D3 1 each PO DAILY 06/19/19 01/26/20 History [Calcium 600-Vit D3 800 Caplet] Ferrous Sulfate [Iron (65 MG 325 mg PO DAILY PRN 06/19/19 01/26/20 History Elemental)] Magnesium Oxide [Mag-Ox] 250 mg PO DAILY 06/19/19 01/26/20 History Cholecalciferol (Vitamin D3) 2,000 unit PO DAILY #30 capsule 06/29/19 01/26/20 Rx [Vitamin D3] predniSONE [Deltasone] 20 mg PO DAILY #30 tab 06/30/19 01/26/20 Rx ALPRAZolam [Xanax] 1 mg PO BID 01/26/20 01/26/20 History Cranberry (Unknown Strength) 1 tab PO DAILY 01/26/20 01/26/20 History Rosuvastatin [Crestor] 10 mg PO DAILY 01/26/20 01/26/20 History Vitamin B-12 (Unknown Strength) 1 tab PO DAILY 01/26/20 01/26/20 History allopurinoL [Zyloprim] 100 mg PO DAILY 01/26/20 01/26/20 History lisinopriL [Zestril] 2.5 mg PO DAILY 01/26/20 01/26/20 History sitaGLIPtin PHOSPHATE [Januvia] 50 mg PO DAILY 01/26/20 01/26/20 History Allergies Allergy/AdvReac Type Severity Reaction Status Date / Time adhesive tape Allergy Severe Rash/Hives/Skin Verified 01/26/20 17:11 Peeling levofloxacin [From Levaquin] Allergy Severe Swelling/ra Verified 01/26/20 17:11 sh Quinolones Allergy Severe Anaphylaxis Verified 01/26/20 17:11 /Swelling enoxaparin [From Lovenox] Allergy GI bleed Verified 01/26/20 17:11 Iodinated Contrast Media AdvReac Severe Chest Pain Verified 01/26/20 17:11 [Iodinated Contrast Media - IV Dye] NSAIDS (Non-Steroidal AdvReac Severe GI Verified 01/26/20 17:11 Anti-Inflamma Bleeding/Liver Damage warfarin [From Coumadin] AdvReac Severe Abdominal Verified 01/26/20 17:11 Pain Physical Exam Vitals: Vital Signs Temp Pulse Pulse Resp BP BP Pulse Ox 01/26/20 21:11 97.9 F 78 18 105/68 98 01/26/20 21:10 97.9 F 78 18 105/68 98 01/26/20 19:28 98.2 F 78 18 109/60 99 01/26/20 18:55 98 16 122/67 98 01/26/20 18:15 98.0 F 83 18 119/81 01/26/20 17:45 98.0 F 77 18 114/68 97 01/26/20 17:35 97.4 F L 77 18 119/64 01/26/20 15:10 98.6 F 80 16 135/102 97 Intake and Output 01/26/20 01/26/20 01/26/20 06:59 14:59 22:59 Intake Total 310 Balance 310 Intake: Blood Product 310 Rc As-1 Unit 310 [id number] Other: Weight 74.389 kg Physical examination: HEENT: head is atraumatic normocephalic pupils were equal round reactive tolight and accommodation extra ocular muscle movement were intact. Neck: supple, no JVP. Chest: decrease breath sounds at the base with few ronchi, no expiratory wheezes, no intercostal retraction. Heart: first heart sound is depressed, second heart sound is normal there is GONZALO 2/6 located at the left sternal border. Abdomen: soft non tender, non distended positive bowel sounds, ther is ileostomy in the right lower quadrant without any blood . Extremities: trace edema no calf tenderness DP +1 bilaterally. Neurologic examniation: patient is awake alert and oriented X 3 CN II-XII are grossly intact, muscle power 4/5 in upper and lower extremities bilaterally. Results CBC & Chem 7: 01/26/20 23:16 01/26/20 16:07 Labs: Abnormal Lab Results - Last 24 Hours (Table) 01/26/20 01/26/20 01/26/20 Range/Units 16:07 16:07 16:07 RBC 2.03 L (3.80-5.40) m/uL Hgb 6.8 L* D (11.4-16.0) gm/dL Hct 20.6 L (34.0-46.0) % MCV 101.5 H (80.0-100.0) fL RDW 19.0 H (11.5-15.5) % Plt Count 121 L (150-450) k/uL Neutrophils # 7.8 H (1.3-7.7) k/uL Lymphocytes # 0.3 L (1.0-4.8) k/uL PT 13.8 H (9.0-12.0) sec INR 1.4 H (<1.2) Sodium 127 L (137-145) mmol/L Chloride 90 L (98-107) mmol/L BUN 34 H (7-17) mg/dL Creatinine 1.23 H (0.52-1.04) mg/dL Glucose 131 H (74-99) mg/dL Calcium 8.0 L (8.4-10.2) mg/dL AST 40 H (14-36) U/L Alkaline Phosphatase 30 L (38-126) U/L Total Protein 5.8 L (6.3-8.2) g/dL Crossmatch 01/26/20 Range/Units 16:07 RBC (3.80-5.40) m/uL Hgb (11.4-16.0) gm/dL Hct (34.0-46.0) % MCV (80.0-100.0) fL RDW (11.5-15.5) % Plt Count (150-450) k/uL Neutrophils # (1.3-7.7) k/uL Lymphocytes # (1.0-4.8) k/uL PT (9.0-12.0) sec INR (<1.2) Sodium (137-145) mmol/L Chloride (98-107) mmol/L BUN (7-17) mg/dL Creatinine (0.52-1.04) mg/dL Glucose (74-99) mg/dL Calcium (8.4-10.2) mg/dL AST (14-36) U/L Alkaline Phosphatase (38-126) U/L Total Protein (6.3-8.2) g/dL Crossmatch See Detail Thrombosis Risk Factor Assmnt - DVT/VTE Prophylaxis DVT/VTE Prophylaxis: Mechanical Prophylaxis ordered - Choose All That Apply Any of the Below Risk Factors Present?: Yes Each Factor Represents 1 point: Obesity (BMI >25) Other Risk Factors: Yes Each Risk Factor Represents 2 Points: Age 61-74 years Thrombosis Risk Factor Assessment Total Risk Factor Score: 3 Thrombosis Risk Factor Assessment Level: Moderate Risk Assessment and Plan Assessment: Assessment and Plan: 1. Stomal bleed . bleeding has stopped , post 1 unit of PRBCs, we will continue to monitor cbc, surgery consult for evaluation and if needed intervention we will transfer to [facility]. 2. acute blood loss anemia. post 1 unint of PRBCs. we will continue to monitor CBC . 3, Hypovolemic hyponatremia. we will continue with IVF NS at 100 ml/h we will recheck CMP in 24 hours. 4. Chronic kidney disease stage 3. stable we will monitor CMP. appears to be stable at this point. 5. Diabetes mellitus type 2. we will continue with CCA 1800 diet and Januvoa or its substitute . BGM AC meals and bed time. 6. Hepatitis C in remission - stable . 7. Crohn's disease status post ileostomy in 2007 - no blood in the ileostomy, hemoglobin stable. Continue prednisone 20 mg daily 8. Generalized anxiety disorder. we will continue with Xanax 1 mg po bid as needed. 9. Hypertension and hypertensiove cardiovascular disease. we will continue with Liisnopril 2.5 mg po daily. 10. GI prophylaxis prophylaxis. will continue with PPI. 11. DVT prophylaxis. will continue with Knee-high Edilberto hose. 12. admitted as an inpatient, estimated length of stay 2 midnights. 13. Full code.
--- NOTE | 2020-01-27 08:27 | P.PN ---
Subjective Progress Note Date: 01/27/20 his is a 64-year-old female patient of mine with past medical history of Crohn's disease status post ileostomy, type 2 diabetes, hepatitis C liver disease, osteoarthritis history of kidney stones, chronic iron deficiency anemia, with an issue with stomal bleed on and off, last happens about a year ago requiring blood transfusion, patient was at physical therapy when she was excercising on the bike when she noticed that she has been bleeding in her stoma , she came to my office last week and had labs that showed a hemoglobin of 10.2, was doing fine till this week when she has another episode with increased stomal bleed, yesterday she tripped and fell down on her right knee, then she felt a bit oozy, so she decided to come to the ER at [facility] where she was found to have a hemoglobin of 6.8 she was given 1 unit of PRBC and she was admitted to the hospital and surgery consultation was obtained. patient in the past was transferred to [facility] for similar episodes and was seen by gina Becerra did have upper and lower endoscopy along with capsule endoscopy by about a year ago. 01/26:Patient is sitting up in bed feeling ok, had some stomal bleed , I have a long conversation with regarding her recurrent bleed that is stemming from possible variceal bleed , and she did havs argon treatment in the past, but due to concerns of developing strictures she may need to have her stoma recreated down the line possibly at if needs be, we will continue with conservative treatment and we will continue to monitor CBC and she will stay in the hospital for the next 24 hours. Objective - Vital Signs Vital signs: Vital Signs Temp 97.7 F 01/27/20 00:42 Pulse 87 01/27/20 05:35 Resp 13 01/27/20 00:42 BP 138/68 01/27/20 00:42 Pulse Ox 97 01/27/20 00:42 Intake & Output 01/26/20 01/26/20 01/27/20 06:59 18:59 06:59 Intake Total 0 310 Balance 0 310 Weight 74.389 kg 74.389 kg Intake: Blood Product 0 310 Rc As-1 Unit 0 310 [id number] Other: # Voids 1 - Exam Review of Systems Constitutional: Reports fatigue, Reports weakness, Denies anorexia, Denies chronic headaches, Denies chronic pain Eyes: denies blurred vision, denies bulging eye, denies decreased vision Ears, nose, mouth and throat: Denies dysphagia, Denies neck lump, Denies sore throat Cardiovascular: Reports lightheadedness, Denies chest pain, Denies decreased exercise tolerance, Denies rapid heart beat, Denies shortness of breath, Denies syncope Respiratory: Denies congestion, Denies cough, Denies cough with sputum, Denies home oxygen, Denies sleep apnea, Denies snoring, Denies wheezing Gastrointestinal: Reports change in bowel habits, Denies abdominal pain, Denies belching, Denies bloating, Denies excessive gas, Denies heartburn, Denies hematemesis, Denies hematochezia, Denies melena, Denies nausea, Denies vomiting Genitourinary: Denies dysuria, Denies nocturia Menstruation: Reports postmenopausal Musculoskeletal: Reports frequent falls Musculoskeletal: right: knee pain, knee swelling, absent: ankle pain, ankle s tiffness, ankle swelling, elbow pain, elbow stiffness, elbow swelling, foot pain, foot stiffness, foot swelling, hand pain, hand stiffness, hand swelling, hip pain, hip stiffness, hip swelling, shoulder pain, shoulder stiffness, shoulder swelling, wrist pain, wrist stiffness, wrist swelling Integumentary: Denies pruritus, Denies rash Neurological: Denies numbness, Denies weakness Psychiatric: Reports anxiety, Denies depression Endocrine: Denies fatigue, Denies weight change Physical examination: HEENT: head is atraumatic normocephalic pupils were equal round reactive tolight and accommodation extra ocular muscle movement were intact. Neck: supple, no JVP. Chest: decrease breath sounds at the base with few ronchi, no expiratory wheezes, no intercostal retraction. Heart: first heart sound is depressed, second heart sound is normal there is GONZALO 2/6 located at the left sternal border. Abdomen: soft non tender, non distended positive bowel sounds, ther is ileostomy in the right lower quadrant without any blood . Extremities: trace edema no calf tenderness DP +1 bilaterally. Neurologic examniation: patient is awake alert and oriented X 3 CN II-XII are grossly intact, muscle power 4/5 in upper and lower extremities bilaterally. - Labs CBC & Chem 7: 01/26/20 23:16 01/26/20 16:07 Labs: Abnormal Lab Results - Last 24 Hours (Table) 01/26/20 01/26/20 01/26/20 Range/Units 16:07 16:07 16:07 RBC 2.03 L (3.80-5.40) m/uL Hgb 6.8 L* D (11.4-16.0) gm/dL Hct 20.6 L (34.0-46.0) % MCV 101.5 H (80.0-100.0) fL RDW 19.0 H (11.5-15.5) % Plt Count 121 L (150-450) k/uL Neutrophils # 7.8 H (1.3-7.7) k/uL Lymphocytes # 0.3 L (1.0-4.8) k/uL PT 13.8 H (9.0-12.0) sec INR 1.4 H (<1.2) Sodium 127 L (137-145) mmol/L Chloride 90 L (98-107) mmol/L BUN 34 H (7-17) mg/dL Creatinine 1.23 H (0.52-1.04) mg/dL Glucose 131 H (74-99) mg/dL Calcium 8.0 L (8.4-10.2) mg/dL AST 40 H (14-36) U/L Alkaline Phosphatase 30 L (38-126) U/L Total Protein 5.8 L (6.3-8.2) g/dL Crossmatch 01/26/20 01/26/20 Range/Units 16:07 23:16 RBC 2.59 L (3.80-5.40) m/uL Hgb 8.7 L D (11.4-16.0) gm/dL Hct 25.9 L (34.0-46.0) % MCV (80.0-100.0) fL RDW 18.6 H (11.5-15.5) % Plt Count 120 L (150-450) k/uL Neutrophils # 8.4 H (1.3-7.7) k/uL Lymphocytes # 0.7 L (1.0-4.8) k/uL PT (9.0-12.0) sec INR (<1.2) Sodium (137-145) mmol/L Chloride (98-107) mmol/L BUN (7-17) mg/dL Creatinine (0.52-1.04) mg/dL Glucose (74-99) mg/dL Calcium (8.4-10.2) mg/dL AST (14-36) U/L Alkaline Phosphatase (38-126) U/L Total Protein (6.3-8.2) g/dL Crossmatch See Detail Assessment and Plan Assessment: Assessment and Plan: 1. 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 2. acute blood loss anemia. post 1 unint of PRBCs. we will continue to monitor CBC . 3, Hypovolemic hyponatremia. we will continue with IVF NS at 100 ml/h we will recheck CMP in 24 hours. 4. Chronic kidney disease stage 3. stable we will monitor CMP. appears to be stable at this point. 5. Diabetes mellitus type 2. we will continue with CCA 1800 diet and Januvoa or its substitute . BGM AC meals and bed time. 6. Hepatitis C in remission - stable . 7. Crohn's disease status post ileostomy in 2007 - no blood in the ileostomy, hemoglobin stable. Continue prednisone 20 mg daily 8. Generalized anxiety disorder. we will continue with Xanax 1 mg po bid as needed. 9. Hypertension and hypertensiove cardiovascular disease. we will continue with Liisnopril 2.5 mg po daily. 10. GI prophylaxis prophylaxis. will continue with PPI. 11. DVT prophylaxis. will continue with Knee-high Edilberto hose. 12. Prognosis is guarded. 13. Full code.
[2020-01-27] MEDS: CHOLECALCIFEROL 1,000 UNIT TAB PO SCH (08:30)
[2020-01-27] MEDS: CALCIUM CARB-VIT D 500MG-200UN 1 EACH TAB PO SCH (08:31)
[2020-01-27] MEDS: PANTOPRAZOLE 40 MG/10 ML VIAL IV SCH (08:31)
[2020-01-27] MEDS: allopurinoL 100 MG TAB PO SCH (08:31)
[2020-01-27] MEDS: ATORVASTATIN 20 MG TAB PO SCH (08:31)
[2020-01-27] MEDS: ALPRAZolam 1 MG TAB PO SCH (08:31)
[2020-01-27] MEDS: MAGNESIUM OXIDE 400 MG TAB PO SCH (08:31)
[2020-01-27] MEDS: LINAGLIPTIN 5 MG TABLET PO SCH (08:31)
[2020-01-27] MEDS: predniSONE 20 MG TAB PO SCH (08:31)
[2020-01-27 09:22] LABS: Anisocytosis Slight; Basophils % (A) 1 %; Eosinophils # (A) 0.1 k/uL (0-0.7); Eosinophils % (A) 1 %; HCT 25.5 % (34.0-46.0); HGB 8.3 gm/dL (11.4-16.0); Hypochromasia Slight; Lymphocytes # (A) 1.2 k/uL (1.0-4.8); Lymphocytes % (A) 15 %; MCH 32.9 pg (25.0-35.0); MCHC 32.7 g/dL (31.0-37.0); MCV 100.4 fL (80.0-100.0); Macrocytosis Moderate; Mean Platelet Volume 7.5; Monocytes # (A) 0.5 k/uL (0-1.0); Monocytes % (A) 6 %; Neutrophils # (A) 5.9 k/uL (1.3-7.7); Neutrophils % (A) 76 %; Platelet Count 126 k/uL (150-450); Poikilocytosis Moderate; RBC 2.54 m/uL (3.80-5.40); RDW 19.3 % (11.5-15.5); WBC 7.8 k/uL (3.8-10.6)
[2020-01-27 09:28] LABS: Calcium 7.9 mg/dL (8.4-10.2); Potassium 4.2 mmol/L (3.5-5.1)
--- NOTE | 2020-01-27 09:52 | P.GSHP ---
History of Present Illness H&P Date: 01/27/20 Patient is a 62-year-old female that presented to the emergency department with complaints of bleeding around her ostomy site. She does have a history of inflammatory bowel disease requiring total colectomy and ileostomy approximately 10 years ago. She has been evaluated for this issue multiple times in the past. Approximately 2 years ago, she was having significant bleeding from around the ostomy and was referred to colorectal specialist secondary to this issue. At that time, arteriogram was performed that did not show any evidence of varices around the stoma site. There was concern for varices secondary to the patient's history of hepatitis and liver disease. She states that she has not had any bleeding around the ostomy site for approximately 14 months. Over 2 years ago, she did have argon beam treatment for bleeding ostomy by surgical and GI services. She discovered this after looking at her bag as she has not had any pain around her ostomy site. On presentation, her hemoglobin was noted to be 6.8. She did refuse 1 unit of packed red blood cell. Currently, her hemoglobin is 8.3. - Review of Systems All systems: negative Past Medical History Past Medical History: Blood Disorder, Diabetes Mellitus, GERD/Reflux, Hyperlipidemia, Hypertension, Liver Disease, Osteoarthritis (OA), Renal Disease Additional Past Medical History / Comment(s): crohns, hx. hep c, past hx. sepsis & ards 2007, has ileostomy, hx. kidney stones, hx. of infection,has sp acer in, hx. anemia related to intermittent bleeding from stoma, has past hx., uti , low platelets septicemia. CHRONIC KIDNEY DISEASE. History of Any Multi-Drug Resistant Organisms: MRSA Date of last positivie culture/infection: 04/25/16 MDRO Source:: Blood & Right Hip Past Surgical History: Appendectomy, Bowel Resection, Cholecystectomy, Hernia Repair, Hysterectomy, Tubal Ligation Additional Past Surgical History / Comment(s): ileostomy 2009 WITH 3-4 RE- SUTURING EPISODES RELATED TO BLEEDING, ileoscopy w/argon gas coagulation of stoma, 10-22-16 revison rt toal hip arthroplasty Past Anesthesia/Blood Transfusion Reactions: No Reported Reaction Past Psychological History: Anxiety Additional Psychological History / Comment(s): pt normally lives with her spouse and 1 pet dog in a single level home that has 3 steps in which to enter. but went to [facility] after dc/d from [facility] 06-04-17 Smoking Status: Never smoker Past Alcohol Use History: None Reported Additional Past Alcohol Use History / Comment(s): started 1974, quit smoking 2007, 1ppd Past Drug Use History: None Reported - Past Family History Mother Family Medical History: CVA/TIA, Diabetes Mellitus Additional Family Medical History / Comment(s): Mother at age 88 from CVA. Sister(s) Additional Family Medical History / Comment(s): Patient has 3 sisters with no major medical problems. Patient does not have any brothers. Patient has 2 sons with no major medical problems. Father Family Medical History: Cancer Additional Family Medical History / Comment(s): . Medications and Allergies Home Medications Medication Instructions Recorded Confirmed Type Mirtazapine [Remeron] 15 mg PO HS 06/11/17 01/26/20 History Sertraline HCl [Zoloft] 100 mg PO HS 07/26/17 01/26/20 History Loperamide HCl [Imodium A-D] 2 mg PO TID PRN 05/01/18 01/26/20 History Calcium Carbonate/Vitamin D3 1 each PO DAILY 06/19/19 01/26/20 History [Calcium 600-Vit D3 800 Caplet] Ferrous Sulfate [Iron (65 MG 325 mg PO DAILY PRN 06/19/19 01/26/20 History Elemental)] Magnesium Oxide [Mag-Ox] 250 mg PO DAILY 06/19/19 01/26/20 History Cholecalciferol (Vitamin D3) 2,000 unit PO DAILY #30 capsule 06/29/19 01/26/20 Rx [Vitamin D3] predniSONE [Deltasone] 20 mg PO DAILY #30 tab 06/30/19 01/26/20 Rx ALPRAZolam [Xanax] 1 mg PO BID 01/26/20 01/26/20 History Cranberry (Unknown Strength) 1 tab PO DAILY 01/26/20 01/26/20 History Rosuvastatin [Crestor] 10 mg PO DAILY 01/26/20 01/26/20 History Vitamin B-12 (Unknown Strength) 1 tab PO DAILY 01/26/20 01/26/20 History allopurinoL [Zyloprim] 100 mg PO DAILY 01/26/20 01/26/20 History lisinopriL [Zestril] 2.5 mg PO DAILY 01/26/20 01/26/20 History sitaGLIPtin PHOSPHATE [Januvia] 50 mg PO DAILY 01/26/20 01/26/20 History Allergies Allergy/AdvReac Type Severity Reaction Status Date / Time adhesive tape Allergy Severe Rash/Hives/Skin Verified 01/26/20 17:11 Peeling levofloxacin [From Levaquin] Allergy Severe Swelling/ra Verified 01/26/20 17:11 sh Quinolones Allergy Severe Anaphylaxis Verified 01/26/20 17:11 /Swelling enoxaparin [From Lovenox] Allergy GI bleed Verified 01/26/20 17:11 Iodinated Contrast Media AdvReac Severe Chest Pain Verified 01/26/20 17:11 [Iodinated Contrast Media - IV Dye] NSAIDS (Non-Steroidal AdvReac Severe GI Verified 01/26/20 17:11 Anti-Inflamma Bleeding/Liver Damage warfarin [From Coumadin] AdvReac Severe Abdominal Verified 01/26/20 17:11 Pain Surgical - Exam Osteopathic Statement: *. No significant issues noted on an osteopathic structural exam other than those noted in the History and Physical/Consult. Vital Signs Temp Pulse Resp BP Pulse Ox 98.6 F 80 16 135/102 97 01/26/20 15:10 01/26/20 15:10 01/26/20 15:10 01/26/20 15:10 01/26/20 15:10 - General well nourished, no distress - Eyes normal ocular movement - ENT no hearing loss - Neck trachea midline - Respiratory normal respiratory effort - Cardiovascular no difficulty with respiration - Abdomen soft, nontender, nondistended, no rebound, no guarding, ostomy is pink and patent with no active bleeding around the stoma, ostomy bag with stool and some blood noted - Psychiatric oriented to time, oriented to person, oriented to place Results - Labs 01/27/20 08:53 01/27/20 08:53 Abnormal Lab Results - Last 24 Hours (Table) 01/26/20 01/26/20 01/26/20 Range/Units 16:07 16:07 16:07 RBC 2.03 L (3.80-5.40) m/uL Hgb 6.8 L* D (11.4-16.0) gm/dL Hct 20.6 L (34.0-46.0) % MCV 101.5 H (80.0-100.0) fL RDW 19.0 H (11.5-15.5) % Plt Count 121 L (150-450) k/uL Neutrophils # 7.8 H (1.3-7.7) k/uL Lymphocytes # 0.3 L (1.0-4.8) k/uL PT 13.8 H (9.0-12.0) sec INR 1.4 H (<1.2) Sodium 127 L (137-145) mmol/L Chloride 90 L (98-107) mmol/L BUN 34 H (7-17) mg/dL Creatinine 1.23 H (0.52-1.04) mg/dL Glucose 131 H (74-99) mg/dL Calcium 8.0 L (8.4-10.2) mg/dL AST 40 H (14-36) U/L Alkaline Phosphatase 30 L (38-126) U/L Total Protein 5.8 L (6.3-8.2) g/dL Crossmatch 01/26/20 01/26/20 01/27/20 Range/Units 16:07 23:16 08:53 RBC 2.59 L 2.54 L (3.80-5.40) m/uL Hgb 8.7 L D 8.3 L (11.4-16.0) gm/dL Hct 25.9 L 25.5 L (34.0-46.0) % MCV 100.4 H (80.0-100.0) fL RDW 18.6 H 19.3 H (11.5-15.5) % Plt Count 120 L 126 L (150-450) k/uL Neutrophils # 8.4 H (1.3-7.7) k/uL Lymphocytes # 0.7 L (1.0-4.8) k/uL PT (9.0-12.0) sec INR (<1.2) Sodium (137-145) mmol/L Chloride (98-107) mmol/L BUN (7-17) mg/dL Creatinine (0.52-1.04) mg/dL Glucose (74-99) mg/dL Calcium (8.4-10.2) mg/dL AST (14-36) U/L Alkaline Phosphatase (38-126) U/L Total Protein (6.3-8.2) g/dL Crossmatch See Detail 01/27/20 Range/Units 08:53 RBC (3.80-5.40) m/uL Hgb (11.4-16.0) gm/dL Hct (34.0-46.0) % MCV (80.0-100.0) fL RDW (11.5-15.5) % Plt Count (150-450) k/uL Neutrophils # (1.3-7.7) k/uL Lymphocytes # (1.0-4.8) k/uL PT (9.0-12.0) sec INR (<1.2) Sodium 135 L (137-145) mmol/L Chloride (98-107) mmol/L BUN 29 H (7-17) mg/dL Creatinine 1.50 H (0.52-1.04) mg/dL Glucose (74-99) mg/dL Calcium 7.9 L (8.4-10.2) mg/dL AST (14-36) U/L Alkaline Phosphatase (38-126) U/L Total Protein (6.3-8.2) g/dL Crossmatch Diabetes panel 01/26/20 01/27/20 Range/Units 16:07 08:53 Sodium 127 L 135 L (137-145) mmol/L Potassium 4.6 4.2 (3.5-5.1) mmol/L Chloride 90 L 102 (98-107) mmol/L Carbon Dioxide 28 28 (22-30) mmol/L BUN 34 H 29 H (7-17) mg/dL Creatinine 1.23 H 1.50 H (0.52-1.04) mg/dL Glucose 131 H 99 (74-99) mg/dL Calcium 8.0 L 7.9 L (8.4-10.2) mg/dL AST 40 H (14-36) U/L ALT 25 (4-34) U/L Alkaline Phosphatase 30 L (38-126) U/L Total Protein 5.8 L (6.3-8.2) g/dL Albumin 3.5 (3.5-5.0) g/dL Calcium panel 01/26/20 01/27/20 Range/Units 16:07 08:53 Calcium 8.0 L 7.9 L (8.4-10.2) mg/dL Albumin 3.5 (3.5-5.0) g/dL Pituitary panel 01/26/20 01/27/20 Range/Units 16:07 08:53 Sodium 127 L 135 L (137-145) mmol/L Potassium 4.6 4.2 (3.5-5.1) mmol/L Chloride 90 L 102 (98-107) mmol/L Carbon Dioxide 28 28 (22-30) mmol/L BUN 34 H 29 H (7-17) mg/dL Creatinine 1.23 H 1.50 H (0.52-1.04) mg/dL Glucose 131 H 99 (74-99) mg/dL Calcium 8.0 L 7.9 L (8.4-10.2) mg/dL Adrenal panel 01/26/20 01/27/20 Range/Units 16:07 08:53 Sodium 127 L 135 L (137-145) mmol/L Potassium 4.6 4.2 (3.5-5.1) mmol/L Chloride 90 L 102 (98-107) mmol/L Carbon Dioxide 28 28 (22-30) mmol/L BUN 34 H 29 H (7-17) mg/dL Creatinine 1.23 H 1.50 H (0.52-1.04) mg/dL Glucose 131 H 99 (74-99) mg/dL Calcium 8.0 L 7.9 L (8.4-10.2) mg/dL Total Bilirubin 1.0 (0.2-1.3) mg/dL AST 40 H (14-36) U/L ALT 25 (4-34) U/L Alkaline Phosphatase 30 L (38-126) U/L Total Protein 5.8 L (6.3-8.2) g/dL Albumin 3.5 (3.5-5.0) g/dL Assessment and Plan (1) GI bleed Narrative/Plan: 64-year-old female with bleeding from stoma. It does appear that the bleeding has resolved at this time. She has been treated with 1 unit of packed red blood cells secondary to symptomatic anemia. At this point, we will continue to treat in a conservative manner. She has had argon beam treatment in the past and continuing this type of treatment could result in stenosis of the stoma site. She also has seen a colorectal specialist secondary to this issue. If it does continue, she would require further evaluation from the colorectal specialist. We will continue to monitor and make recommendations based on the patient's clinical progress. Current Visit: Yes Status: Acute Code(s): K92.2 - GASTROINTESTINAL HEMORRHAGE, UNSPECIFIED SNOMED Code(s): 66114826
[2020-01-27] MEDS: SERTRALINE 100 MG TAB PO SCH (20:29)
[2020-01-27] MEDS: MIRTAZAPINE 15 MG TAB PO SCH (20:29)
[2020-01-27] MEDS: ALPRAZolam 1 MG TAB PO PRN (20:29)
--- NOTE | 2020-01-27 22:36 | CONS ---
CONSULTATION DATE OF SERVICE: January 27, 2020. REASON FOR CONSULTATION: GI bleed. HISTORY OF PRESENT ILLNESS: The patient is a 64-year-old pleasant white female with longstanding history of Crohn's disease with ileostomy in the past, history of diabetes mellitus, hypertension, hyperlipidemia, was admitted to the hospital because of acute GI bleed. She noticed bright red blood in the ostomy bag and became very concerned and hence came into the emergency room and subsequently admitted to the hospital for further evaluation. Early this morning, she was having some increased bleeding most likely from the stoma, but this afternoon, the bleeding has completely subsided. In fact, the ileostomy bag there was some brown stool noted. She has been having this on and off for the last one week duration. She did have ileoscopy done in 2017 by me with cautery of the stoma where she had active bleeding. She denies any abdominal pain. Reports no nausea, vomiting. About the last one year she was evaluated by a colorectal surgeon at [facility]. According to the patient, no intervention was done at the time. PAST MEDICAL HISTORY: Significant for Crohn's disease with subtotal colectomy and ileostomy many years ago, history of diabetes mellitus, hypertension, hyperlipidemia, chronic liver disease. PAST SURGICAL HISTORY: Appendectomy, cholecystectomy, hysterectomy, tubal ligation, ileostomy in 2009, right hip arthroplasty. MEDICATIONS: Medications at home include: Imuran, Zoloft, Imodium, vitamin D3, iron sulfate, magnesium oxide, vitamin B12, Xanax, prednisone, Crestor, multivitamin, vitamin B12, Januvia. ALLERGIES: TO QUINOLONES, LEVAQUIN, AND ADHESIVE TAPE. SOCIAL HISTORY: No smoking. No alcohol use. FAMILY HISTORY: Mother had diabetes mellitus and CVA. REVIEW OF SYSTEMS: CARDIOPULMONARY: No chest pain or shortness of breath. no dysuria or hematuria. MUSCULOSKELETAL unremarkable. SKIN unremarkable. ENDOCRINE unremarkable. PSYCHIATRIC: Unremarkable. EXTREMITIES: No pedal edema. SKIN no rashes. ENT: Vision unremarkable. CONSTITUTIONAL: No recent weight loss. No fever, chills, night sweats. HEMATOLOGY: Anemia. PHYSICAL EXAMINATION: She appears comfortable. No apparent distress. VITAL SIGNS: Stable. Blood pressure is 112/86, pulse 82 per minute and temperature 98.3. HEENT examination: Unremarkable. Conjunctivae pink. Sclerae anicteric. Oral cavity no lesions. NECK no JVD or lymph node enlargement. CHEST was clear to auscultation. HEART: Regular rate and rhythm. ABDOMEN: Soft. Ileostomy in place. Ileostomy bag has brown stool. EXTREMITIES: No pedal edema. SKIN no rashes. NEUROLOGIC: Alert and oriented x3. No focal deficits. LABS: At the time of admission to the hospital: WBC 8.6, hemoglobin 6.8, platelets 121, INR is 1.4, AST, ALT are 40 and 24 respectively. BUN 24 and creatinine 1.23. She received one unit of blood transfusion and repeat hemoglobin is 8.3 g/dL. IMPRESSION: 1. Acute gastrointestinal bleed most likely from the ileostomy stoma. The patient presented to the hospital with intermittent stomal bleeding for the last few days duration. She had significant bleeding yesterday and today. The patient presented with a hemoglobin of 6.8 requiring one unit of PRBCs transfusion and currently hemoglobin stable at 8.4 g/dL. At this time, the bleeding has completely stopped. She had ileoscopy with argon plasma coagulation of the stomal bleed by me in 2016 and she had done well. However in the last one year, she had also seen her colorectal surgeon at [facility]. 2. Anemia secondary to gastrointestinal bleed, status post one unit of PRBC transfusion. 3. History of Crohn's disease, status post colostomy as mentioned above in 1999. 4. She is maintained on prednisone on an outpatient basis. 5. Thrombocytopenia from underlying chronic liver disease. 6. Longstanding history of diabetes mellitus. RECOMMENDATIONS: 1. Monitor CBC on a daily basis. 2. Since there is no evidence of active bleeding, we will hold off on any endoscopic intervention at the present time. 3. If she has further bleeding, we can always consider repeating an endoscopy with argon plasma coagulation. 4. Agree with surgical consultation. 5. We will follow with you closely. Thank you for this consultation. MMODL / IJN: [id number] /
[2020-01-28] MEDS: MAGNESIUM OXIDE 400 MG TAB PO SCH (07:36)
[2020-01-28] MEDS: LINAGLIPTIN 5 MG TABLET PO SCH (07:36)
[2020-01-28] MEDS: predniSONE 20 MG TAB PO SCH (07:36)
[2020-01-28] MEDS: allopurinoL 100 MG TAB PO SCH (07:36)
[2020-01-28] MEDS: ATORVASTATIN 20 MG TAB PO SCH (07:37)
[2020-01-28] MEDS: PANTOPRAZOLE 40 MG/10 ML VIAL IV SCH (07:37)
[2020-01-28] MEDS: CALCIUM CARB-VIT D 500MG-200UN 1 EACH TAB PO SCH (07:37)
[2020-01-28] MEDS: CHOLECALCIFEROL 1,000 UNIT TAB PO SCH (07:37)
[2020-01-28 07:59] LABS: Anisocytosis Slight; Basophils % (A) 0 %; Eosinophils # (A) 0.1 k/uL (0-0.7); Eosinophils % (A) 1 %; HCT 28.5 % (34.0-46.0); Hypochromasia Slight; Lymphocytes # (A) 1.9 k/uL (1.0-4.8); Lymphocytes % (A) 22 %; MCH 31.9 pg (25.0-35.0); MCHC 31.7 g/dL (31.0-37.0); MCV 100.5 fL (80.0-100.0); Macrocytosis Moderate; Mean Platelet Volume 8.1; Monocytes # (A) 0.6 k/uL (0-1.0); Monocytes % (A) 7 %; Neutrophils # (A) 6.1 k/uL (1.3-7.7); Neutrophils % (A) 68 %; Platelet Count 131 k/uL (150-450); Poikilocytosis Moderate; RBC 2.84 m/uL (3.80-5.40); RDW 19.6 % (11.5-15.5); WBC 8.9 k/uL (3.8-10.6)
[2020-01-28 08:15] LABS: Albumin 3.7 g/dL (3.5-5.0); Calcium 8.4 mg/dL (8.4-10.2); Potassium 3.8 mmol/L (3.5-5.1); Total Bilirubin 1.2 mg/dL (0.2-1.3); Total Protein 6.4 g/dL (6.3-8.2)
--- NOTE | 2020-01-28 09:56 | P.DS ---
Providers Date of admission: 01/26/20 16:39 Expected date of discharge: 01/28/20 Attending physician: Antonio Kothari Consults: 01/26/20 16:39 Consult Physician Urgent Consulting Provider: Florence Melo Consult Reason/Comments: gi bleed, Do you want consulting provider notified?: Yes 01/27/20 08:22 Consult Physician Routine Consulting Provider: Maira Stanton Consult Reason/Comments: Stoma bleed/Crohn disease. Do you want consulting provider notified?: Yes Primary care physician: [facility] Course: This is a 64-year-old female patient of mine with past medical history of Crohn's disease status post ileostomy, type 2 diabetes, hepatitis C liver disease, osteoarthritis history of kidney stones, chronic iron deficiency anemia, with an issue with stomal bleed on and off, last happens about a year ago requiring blood transfusion, patient was at physical therapy when she was excercising on the bike when she noticed that she has been bleeding in her stoma , she came to my office last week and had labs that showed a hemoglobin of 10.2, was doing fine till this week when she has another episode with increased stomal bleed, yesterday she tripped and fell down on her right knee, then she felt a bit oozy, so she decided to come to the ER at [facility] where she was found to have a hemoglobin of 6.8 she was given 1 unit of PRBC and she was a dmitted to the hospital and surgery consultation was obtained. patient in the past was transferred to [facility] for similar episodes and was seen by gina Becerra did have upper and lower endoscopy along with capsule endoscopy by about a year ago. 01/26:Patient is sitting up in bed feeling ok, had some stomal bleed , I have a long conversation with regarding her recurrent bleed that is stemming from possible variceal bleed , and she did havs argon treatment in the past, but due to concerns of developing strictures she may need to have her stoma recreated down the line possibly at [facility] if needs be, we will continue with conservative treatment and we will continue to monitor CBC and she will stay in the hospital for the next 24 hours. 01/27: Patient states that she has had no bleeding from the stoma and no blood in her colostomy bag. She states she has been walking and also showered yesterday. This morning she has been up to the bathroom and ate her breakfast. No nausea or vomiting. She has been followed by GI and general surgery was no plan for intervention at this point. Repeat blood work reveals hgb 9.0, plt 131, BUN 26, creatinine 1.48. Patient will be discharged home today in stable condition. Patient has been encouraged come into the office if she has any signs or concerns of bleeding and blood work will be done. Discharge Diagnoses 1. 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 2. acute blood loss anemia. post 1 unint of PRBCs. 3, Hypovolemic hyponatremia. 4. Chronic kidney disease stage 3. 5. Diabetes mellitus type 2. 6. Hepatitis C in remission - stable . 7. Crohn's disease status post ileostomy in 2007 - no blood in the ileostomy, hemoglobin stable. 8. Generalized anxiety disorder. 9. Hypertension and hypertensiove cardiovascular disease. Discharge Plan: Home Impression and plan of care have been directed as dictated by the signing physician. Glenis Hernandez nurse practitioner acting as scribe for signing physician. Patient Condition at Discharge: Good Plan - Discharge Summary New Discharge Prescriptions: Continue Mirtazapine [Remeron] 15 mg PO HS Sertraline HCl [Zoloft] 100 mg PO HS Loperamide HCl [Imodium A-D] 2 mg PO TID PRN PRN Reason: Diarrhea Ferrous Sulfate [Iron (65 MG Elemental)] 325 mg PO DAILY PRN PRN Reason: Bleeding Magnesium Oxide [Mag-Ox] 250 mg PO DAILY Calcium Carbonate/Vitamin D3 [Calcium 600-Vit D3 800 Caplet] 1 each PO DAILY Cholecalciferol (Vitamin D3) [Vitamin D3] 2,000 unit PO DAILY #30 capsule predniSONE [Deltasone] 20 mg PO DAILY #30 tab sitaGLIPtin PHOSPHATE [Januvia] 50 mg PO DAILY lisinopriL [Zestril] 2.5 mg PO DAILY ALPRAZolam [Xanax] 1 mg PO BID allopurinoL [Zyloprim] 100 mg PO DAILY Rosuvastatin [Crestor] 10 mg PO DAILY Cranberry (Unknown Strength) 1 tab PO DAILY Vitamin B-12 (Unknown Strength) 1 tab PO DAILY Discharge Medication List Mirtazapine [Remeron] 15 mg PO HS 06/11/17 [History] Sertraline HCl [Zoloft] 100 mg PO HS 07/26/17 [History] Loperamide HCl [Imodium A-D] 2 mg PO TID PRN 05/01/18 [History] Calcium Carbonate/Vitamin D3 [Calcium 600-Vit D3 800 Caplet] 1 each PO DAILY 06/19/19 [History] Ferrous Sulfate [Iron (65 MG Elemental)] 325 mg PO DAILY PRN 06/19/19 [History] Magnesium Oxide [Mag-Ox] 250 mg PO DAILY 06/19/19 [History] Cholecalciferol (Vitamin D3) [Vitamin D3] 2,000 unit PO DAILY #30 capsule 06/29/19 [Rx] predniSONE [Deltasone] 20 mg PO DAILY #30 tab 06/30/19 [Rx] ALPRAZolam [Xanax] 1 mg PO BID 01/26/20 [History] Cranberry (Unknown Strength) 1 tab PO DAILY 01/26/20 [History] Rosuvastatin [Crestor] 10 mg PO DAILY 01/26/20 [History] Vitamin B-12 (Unknown Strength) 1 tab PO DAILY 01/26/20 [History] allopurinoL [Zyloprim] 100 mg PO DAILY 01/26/20 [History] lisinopriL [Zestril] 2.5 mg PO DAILY 01/26/20 [History] sitaGLIPtin PHOSPHATE [Januvia] 50 mg PO DAILY 01/26/20 [History] Follow up Appointment(s)/Referral(s): Antonio Kothari MD [Primary Care Provider] - 1 Week Discharge Disposition: HOME SELF-CARE
[2020-01-28] MEDS: ALPRAZolam 1 MG TAB PO PRN (10:01)
--- NOTE | 2020-01-28 11:45 | P.PN ---
Subjective Progress Note Date: 01/28/20 Patient seen and examined at bedside. States she is feeling much better. No additional bleeding from the ostomy site. Hemoglobin is stable. Objective - Vital Signs Vital signs: Vital Signs Temp 97.9 F 01/28/20 07:00 Pulse 103 H 01/28/20 08:00 Resp 19 01/28/20 08:00 BP 127/73 01/28/20 07:00 Pulse Ox 94 L 01/28/20 07:00 Intake & Output 01/27/20 01/28/20 01/28/20 18:59 06:59 18:59 Intake Total 240 Balance 240 Intake: Oral 240 Other: # Voids 2 2 2 - Constitutional General appearance: Present: cooperative, no acute distress - Respiratory Details: No difficulty with respiration - Gastrointestinal Gastrointestinal Comment(s): Soft, nontender, nondistended, no rebound, no guarding, ostomy is pink and patent with no active hemorrhage - Labs CBC & Chem 7: 01/28/20 07:43 01/28/20 07:43 Labs: Abnormal Lab Results - Last 24 Hours (Table) 01/28/20 01/28/20 Range/Units 07:43 07:43 RBC 2.84 L (3.80-5.40) m/uL Hgb 9.0 L (11.4-16.0) gm/dL Hct 28.5 L (34.0-46.0) % MCV 100.5 H (80.0-100.0) fL RDW 19.6 H (11.5-15.5) % Plt Count 131 L (150-450) k/uL BUN 26 H (7-17) mg/dL Creatinine 1.48 H (0.52-1.04) mg/dL AST 37 H (14-36) U/L Alkaline Phosphatase 33 L (38-126) U/L Assessment and Plan (1) GI bleed Narrative/Plan: 64-year-old female with bleeding from stoma. Bleeding from stoma site is controlled. Hemoglobin is stable. Patient is surgically stable for discharge. Continue to follow with local ostomy care due to patient's continued episodes of bleeding from ostomy site. Current Visit: Yes Status: Acute Code(s): K92.2 - GASTROINTESTINAL HEMORRHAGE, UNSPECIFIED SNOMED Code(s): 98293908
[2020-01-28 14:46] VITALS: BP 126/73; PULSE 96; RESP 18; TEMP 97.6
--- NOTE | 2020-01-28 20:50 | PN ---
PROGRESS NOTE DATE OF DICTATION: January 28, 2020 The patient is a 64-year-old pleasant white female admitted to hospital with acute bleeding from the stomal site from the ileostomy for the last 2 days. She came with a hemoglobin of 6.8, received 2 units of PRBCs transfusion and currently hemoglobin is 9 g/dL. She is doing well. She had no further episodes of bleeding. She denies any abdominal pain. No nausea, vomiting. PHYSICAL EXAMINATION: Appears comfortable, no apparent distress. Vital signs stable. Blood pressure is 122/73, pulse rate 96, temperature 97.6. HEENT examination unremarkable. Conjunctivae pink. Sclerae anicteric. Oral cavity no lesions. NECK: No JVD or lymph node enlargement. CHEST was clear to auscultation. HEART: Regular rate and rhythm. ABDOMEN: Soft. Bowel sounds are positive. Ileostomy bag in place and there is some brown stool in the ileostomy bag. EXTREMITIES: No pedal edema. NEUROLOGIC: Alert and oriented x3. No focal deficits. LABS: From today WBC is 8.9, hemoglobin 9, and platelets 131. IMPRESSION: 1. Bleeding from the ileostomy site which resolved. Hemoglobin stable at 9 g/dL. No further bleeding since yesterday, status post one unit of PRBC transfusion and hemoglobin is 9 today. 2. History of ileostomy in this lady with history of Crohn's disease, status post subtotal colectomy 30 years ago. 3. Thrombocytopenia probably related to underlying chronic liver disease. The patient has history of hepatitis C in the past and was treated with Harvoni about 2 years ago and virological response. 4. Mild coagulopathy probably secondary to underlying chronic liver disease. RECOMMENDATIONS: 1. Advance diet as tolerated. 2. Monitor CBC on a daily basis. 3. If she has recurrent bleeding, she was advised to follow up in the office. 4. She can be discharged home today with outpatient followup as needed. Thank you for this consultation. MMODL / IJN: [id number] /
== END 2020-01-28 15:10 | disposition home or self-care (01) | DRG 394 ==
LOC: EC 14:45 → 4SSUR 16:39
PROVIDERS: ADMIT Internal Medicine; ATTEND Internal Medicine
PROC: 30230N1 Transfusion of Nonautologous Red Blood Cells into Peripheral Vein, Open Approach (ICD-10-PCS; principal; 2020-01-26)
DX: K94.11 Enterostomy hemorrhage (principal); K50.90 Crohn's disease, unspecified, without complications; D68.4 Acquired coagulation factor deficiency; D62 Acute posthemorrhagic anemia; E87.1 Hypo-osmolality and hyponatremia; N18.3 Chronic kidney disease, stage 3 (moderate); E11.22 Type 2 diabetes mellitus with diabetic chronic kidney disease; D69.59 Other secondary thrombocytopenia; Z11.59 Encounter for screening for other viral diseases; E86.1 Hypovolemia; F41.1 Generalized anxiety disorder; I25.10 Atherosclerotic heart disease of native coronary artery without angina pectoris; I12.9 Hypertensive chronic kidney disease with stage 1 through stage 4 chronic kidney disease, or unspecified chronic kidney disease; E78.5 Hyperlipidemia, unspecified; K76.9 Liver disease, unspecified; K21.9 Gastro-esophageal reflux disease without esophagitis; M19.90 Unspecified osteoarthritis, unspecified site; Z79.52 Long term (current) use of systemic steroids; Z79.84 Long term (current) use of oral hypoglycemic drugs; Z79.899 Other long term (current) drug therapy; Z86.19 Personal history of other infectious and parasitic diseases; Z87.442 Personal history of urinary calculi; Z86.14 Personal history of Methicillin resistant Staphylococcus aureus infection; Z87.19 Personal history of other diseases of the digestive system; Z90.49 Acquired absence of other specified parts of digestive tract; Z96.641 Presence of right artificial hip joint; Z90.710 Acquired absence of both cervix and uterus; Z87.42 Personal history of other diseases of the female genital tract; Z98.51 Tubal ligation status; Z98.890 Other specified postprocedural states; Z88.1 Allergy status to other antibiotic agents; Z91.041 Radiographic dye allergy status; Z88.8 Allergy status to other drugs, medicaments and biological substances; Z91.048 Other nonmedicinal substance allergy status; Z82.3 Family history of stroke; Y83.2 Surgical operation with anastomosis, bypass or graft as the cause of abnormal reaction of the patient, or of later complication, without mention of misadventure at the time of the procedure; Z83.3 Family history of diabetes mellitus; W01.0XXA Fall on same level from slipping, tripping and stumbling without subsequent striking against object, initial encounter
CPT/HCPCS: 36415; 36430; 80048; 80053; 85025; 85610; 85730; 86850; 86900; 86901; 86920; 96374; 99284

== ENCOUNTER 2020-02-27 06:07 | Inpatient (IN) | payer MEDICARE ==
[2020-02-27] MEDS ORDERED: ACETAMINOPHEN TAB 325 MG TAB PO STA (06:29)
[2020-02-27] MEDS ORDERED: PIPERACILLIN-TAZOBACTAM 3.375 GM in SODIUM CHLORIDE 0.9% 100 ML IVPB STA (06:30)
--- NOTE | 2020-02-27 06:30 | CT ---
EXAMINATION TYPE: CT brain wo con for TPA DATE OF EXAM: 02/27/2020 COMPARISON: 05/26/2017 HISTORY: Code stroke CT DLP: mGycm Automated exposure control for dose reduction was used. Exam performed with no contrast. Ventricles have normal size. There is no mass effect nor midline shift. There is no sign of intracran ial hemorrhage. Calvarium is intact. IMPRESSION: Negative unenhanced head CT scan. No change.
[2020-02-27 06:37] LABS: Glucose,Whole Blood 129 mg/dL (75-99)
--- NOTE | 2020-02-27 06:41 | CT ---
EXAMINATION TYPE: CT angio head neck DATE OF EXAM: 02/27/2020 COMPARISON: HISTORY: AMS, Code stroke CT DLP: 518.5 mGycm Automated exposure control for dose reduction was used. CONTRAST: Performed with IV Contrast, patient injected with 65 mL of Isovue 370. Images were obtained from the aortic arch to the vertex of the brain with IV contrast and 3-D post pr ocessed images. There is normal branching pattern of the great vessels on the aortic arch. There is arterial flow in both subclavian arteries. There is arterial flow in the vertebral arteries bilaterally. There is anatoliy rial flow in the common internal and external carotid arteries. There is wide patency of the carotid artery bifurcations. There is arterial flow in the vertebrobasilar artery system. There is no evidenc e of carotid or vertebral artery aneurysm or dissection. There is arterial flow in the anterior middle and posterior cerebral arteries. I see no evidence of i ntracranial aneurysm or neovascularity. There is no mass effect. There is no evidence of hemodynamic stenosis. There is normal contrast opacification of the venous sinuses. IMPRESSION: Negative CT angiogram of the brain. Negative CT angiogram of the neck.
[2020-02-27] MEDS: SODIUM CHLORIDE 0.9% 500 ML 500 ML IV SCH ×3 (06:50→08:48)
[2020-02-27 06:58] LABS: Basophils % (A) 1 %; Eosinophils % (A) 1 %; HGB 10.5 gm/dL (11.4-16.0); Hypochromasia Moderate; Lymphocytes # (A) 0.8 k/uL (1.0-4.8); Lymphocytes % (A) 17 %; MCH 32.7 pg (25.0-35.0); MCHC 31.8 g/dL (31.0-37.0); MCV 102.8 fL (80.0-100.0); Macrocytosis Moderate; Mean Platelet Volume 7.8; Monocytes # (A) 0.4 k/uL (0-1.0); Monocytes % (A) 8 %; Neutrophils # (A) 3.3 k/uL (1.3-7.7); Neutrophils % (A) 72 %; Poikilocytosis Slight; WBC 4.7 k/uL (3.8-10.6)
--- NOTE | 2020-02-27 07:02 | XR ---
EXAM: XR Chest, 1 View CLINICAL HISTORY: ITS.REASON XR Reason: Fever TECHNIQUE: Frontal view of the chest. COMPARISON: Chest radiograph January 29, 2018 FINDINGS/IMPRESSION: Trace bilateral pleural effusions with mild vascular congestion. Superimposed, chronically increased interstitial markings. Low lung volumes secondary to poor inspiration which accentuates the aforementioned bronchovascular markings. No pneumothorax. Cardiomegaly. Calcified aorta. Mildly widened mediastinum. Old right-sided rib fractures.
[2020-02-27 07:06] LABS: Appearance,Urine Clear (Clear); Bacteria,Urine Rare /hpf; Bilirubin,Urine Negative (Negative); Blood,Urine Moderate (Negative); Cellular Casts,Urine 1 /lpf (0); Color,Urine Yellow; Glucose,Urine (UA) Negative (Negative); Granular Casts,Urine 3 /lpf (0); Hyaline Casts,Urine 4 /lpf (0-2); Ketones,Urine Negative (Negative); Leukocyte Esterase,Urine Small (Negative); Mucus,Urine Rare /hpf; Nitrite,Urine Negative (Negative); PH, Urine 6.5 (5.0-8.0); Protein,Urine 2+ (Negative); RBC,Urine 33 /hpf (0-5); Specific Gravity,Urine 1.027 (1.001-1.035); Squamous Epithelial Cell,Urine <1 /hpf (0-4); Urobilinogen,Urine <2.0 mg/dL (<2.0); WBC,Urine 37 /hpf (0-5)
[2020-02-27 07:07] LABS: Albumin 2.8 g/dL (3.5-5.0); Calcium 8.3 mg/dL (8.4-10.2); Potassium 4.6 mmol/L (3.5-5.1); Total Bilirubin 1.1 mg/dL (0.2-1.3); Total Protein 5.3 g/dL (6.3-8.2)
[2020-02-27 07:13] LABS: Partial Thromboplastin Time 38.7 sec (22.0-30.0)
[2020-02-27 07:33] LABS: INR 5.5 (<1.2)
[2020-02-27] MEDS: SODIUM CHLORIDE 0.9% 1,000 ML IV SCH ×2 (07:42→12:52)
[2020-02-27 07:52] LABS: Tear Drop Cells Present
[2020-02-27 07:53] LABS: Platelet Count 72 k/uL (150-450); Polychromasia Present
[2020-02-27] MEDS ORDERED: VANCOMYCIN IV PER PHARMACY 1 EACH MISC MISCELLANE PRN (08:07)
[2020-02-27] MEDS ORDERED: FERROUS SULFATE 325 MG TAB PO PRN (08:09)
[2020-02-27] MEDS ORDERED: VANCOMYCIN 1,500 MG in SODIUM CHLORIDE 0.9% 250 ML IVPB ONE (08:30)
--- NOTE | 2020-02-27 08:30 | ED ---
Altered Mental Status HPI - General Chief Complaint: Altered Mental Status Stated Complaint: Neuro Deficits Time Seen by Provider: 02/27/20 06:23 Source: patient, family, EMS Limitations: altered mental status (Appears delirious) - History of Present Illness Initial Comments: Patient is 64-year-old woman brought by EMS to have evaluation after her found her on the bathroom floor this morning. The patient had attempted go to the bathroom and then must have fallen. When I interview the patient, she is denying head injury. She denies pain anywhere. Patient does appear delirious not able to complete the review of systems MD Complaint: altered mental status -: unknown Severity: severe Associated Symptoms: weakness - Related Data Home Medications Medication Instructions Recorded Confirmed Mirtazapine [Remeron] 15 mg PO HS 06/11/17 02/27/20 Sertraline HCl [Zoloft] 100 mg PO HS 07/26/17 02/27/20 Loperamide HCl [Imodium A-D] 2 mg PO TID PRN 05/01/18 02/27/20 Calcium Carbonate/Vitamin D3 1 tab PO DAILY 06/19/19 02/27/20 [Calcium 600-Vit D3 800 Caplet] Ferrous Sulfate [Iron (65 MG 325 mg PO DAILY PRN 06/19/19 02/27/20 Elemental)] Magnesium Oxide [Mag-Ox] 250 mg PO DAILY 06/19/19 02/27/20 ALPRAZolam [Xanax] 1 mg PO BID 01/26/20 02/27/20 Cranberry (Unknown Strength) 1 tab PO DAILY 01/26/20 02/27/20 Rosuvastatin [Crestor] 10 mg PO DAILY 01/26/20 02/27/20 Vitamin B-12 (Unknown Strength) 1 tab PO DAILY 01/26/20 02/27/20 allopurinoL [Zyloprim] 100 mg PO DAILY 01/26/20 02/27/20 lisinopriL [Zestril] 2.5 mg PO DAILY 01/26/20 02/27/20 sitaGLIPtin PHOSPHATE [Januvia] 50 mg PO DAILY 01/26/20 02/27/20 Previous Rx's Medication Instructions Recorded Cholecalciferol (Vitamin D3) 2,000 unit PO DAILY #30 capsule 06/29/19 [Vitamin D3] predniSONE [Deltasone] 20 mg PO DAILY #30 tab 06/30/19 Allergies Allergy/AdvReac Type Severity Reaction Status Date / Time adhesive tape Allergy Severe Rash/Hives/Skin Verified 02/27/20 07:45 Peeling levofloxacin [From Levaquin] Allergy Severe Swelling/ra Verified 02/27/20 07:45 sh Quinolones Allergy Severe Anaphylaxis Verified 02/27/20 07:45 /Swelling enoxaparin [From Lovenox] Allergy GI bleed Verified 02/27/20 07:45 Iodinated Contrast Media AdvReac Severe Chest Pain Verified 02/27/20 07:45 [Iodinated Contrast Media - IV Dye] NSAIDS (Non-Steroidal AdvReac Severe GI Verified 02/27/20 07:45 Anti-Inflamma Bleeding/Liver Damage warfarin [From Coumadin] AdvReac Severe Abdominal Verified 02/27/20 07:45 Pain Review of Systems ROS Statement: Those systems with pertinent positive or pertinent negative responses have been documented in the HPI. ROS Other: All systems not noted in ROS Statement are negative. Limitations: ROS unobtainable due to patients medical condition Constitutional: Reports: fever Respiratory: Denies: dyspnea Cardiovascular: Denies: chest pain Gastrointestinal: Denies: abdominal pain Neurological: Denies: headache Past Medical History Past Medical History: Blood Disorder, Diabetes Mellitus, GERD/Reflux, Hyperlipidemia, Hypertension, Liver Disease, Osteoarthritis (OA), Renal Disease Additional Past Medical History / Comment(s): crohns, hx. hep c, past hx. sepsis & ards 2007, has ileostomy, hx. kidney stones, hx. of infection,has spacer in, hx. anemia related to intermittent bleeding from stoma, has past hx., uti , low platelets septicemia. CHRONIC KIDNEY DISEASE. History of Any Multi-Drug Resistant Organisms: MRSA Date of last positivie culture/infection: 04/25/16 MDRO Source:: Blood & Right Hip Past Surgical History: Appendectomy, Bowel Resection, Cholecystectomy, Hernia Repair, Hysterectomy, Tubal Ligation Additional Past Surgical History / Comment(s): ileostomy 2009 WITH 3-4 RE- SUTURING EPISODES RELATED TO BLEEDING, ileoscopy w/argon gas coagulation of stoma, 10-22-16 revison rt toal hip arthroplasty Past Anesthesia/Blood Transfusion Reactions: No Reported Reaction Past Psychological History: Anxiety Smoking Status: Never smoker Past Alcohol Use History: None Reported Past Drug Use History: None Reported - Past Family History Mother Family Medical History: CVA/TIA, Diabetes Mellitus Additional Family Medical History / Comment(s): Mother at age 88 from CVA. Sister(s) Additional Family Medical History / Comment(s): Patient has 3 sisters with no major medical problems. Patient does not have any brothers. Patient has 2 sons with no major medical problems. Father Family Medical History: Cancer Additional Family Medical History / Comment(s): . General Exam General appearance: obtunded, in distress Head exam: Present: atraumatic, normocephalic Eye exam: Present: normal appearance, PERRL, EOMI. Absent: scleral icterus, conjunctival injection ENT exam: Present: mucous membranes dry Neck exam: Present: normal inspection, full ROM. Absent: meningismus Respiratory exam: Present: respiratory distress (Tachypnea), rhonchi. Absent: wheezes, rales Cardiovascular Exam: Present: normal rhythm, tachycardia, normal heart sounds. Absent: systolic murmur, diastolic murmur, rubs, gallop GI/Abdominal exam: Present: soft. Absent: distended, tenderness, guarding, rebound, rigid, mass Extremities exam: Present: tenderness, normal capillary refill, other (Left third toe with erythema and there is warmth and swelling onto the forefoot. There is ulceration to the distal tip). Absent: pedal edema Back exam: Absent: CVA tenderness (R), CVA tenderness (L) Neurological exam: Present: altered, CN II-XII intact. Absent: oriented X3 (Patient is disoriented to date, recognizes she is in the hospital and oriented to person), motor sensory deficit Skin exam: Present: warm, dry, intact, normal color. Absent: rash Course Vital Signs 02/27/20 02/27/20 02/27/20 07:02 07:50 08:45 Temperature 103.8 F H 101.2 F H Pulse Rate 113 H 93 83 Respiratory 20 24 18 Rate Blood Pressure 137/67 136/66 77/46 O2 Sat by Pulse 77 L 100 Oximetry 02/27/20 02/27/20 02/27/20 09:10 09:30 09:57 Temperature 99.2 F Pulse Rate 82 80 83 Respiratory 24 18 18 Rate Blood Pressure 91/51 97/55 96/53 O2 Sat by Pulse 100 100 99 Oximetry Medical Decision Making - Medical Decision Making Patient's 64-year-old woman brought for evaluation of altered mental status after she was found lying on the bathroom floor this morning. The patient's subsequently arrived and stated that she had not been feeling too well for about the prior day, but could not identify any definite infection. Patient has history of previous episodes of sepsis requiring ICU admission. Case is discussed with who will accept admission and requests infectious disease consultation. Given patient's multiple previous episodes, will admit to select care - Lab Data Result diagrams: 02/28/20 06:44 02/27/20 06:38 Lab Results 02/27/20 02/27/20 02/27/20 Range/Units 06:26 06:38 06:38 WBC 4.7 (3.8-10.6) k/uL RBC 3.20 L (3.80-5.40) m/uL Hgb 10.5 L (11.4-16.0) gm/dL Hct 33.0 L (34.0-46.0) % MCV 102.8 H (80.0-100.0) fL MCH 32.7 (25.0-35.0) pg MCHC 31.8 (31.0-37.0) g/dL RDW 16.0 H (11.5-15.5) % Plt Count 72 L (150-450) k/uL Neutrophils % 72 % Lymphocytes % 17 % Monocytes % 8 % Eosinophils % 1 % Basophils % 1 % Neutrophils # 3.3 (1.3-7.7) k/uL Lymphocytes # 0.8 L (1.0-4.8) k/uL Monocytes # 0.4 (0-1.0) k/uL Eosinophils # 0.0 (0-0.7) k/uL Basophils # 0.0 (0-0.2) k/uL Manual Slide Review Performed Polychromasia Present Hypochromasia Moderate Poikilocytosis Slight Macrocytosis Moderate Tear Drop Cells Present PT 55.0 H (9.0-12.0) sec INR 5.5 H* (<1.2) APTT 38.7 H (22.0-30.0) sec Sodium (137-145) mmol/L Potassium (3.5-5.1) mmol/L Chloride (98-107) mmol/L Carbon Dioxide (22-30) mmol/L Anion Gap mmol/L BUN (7-17) mg/dL Creatinine (0.52-1.04) mg/dL Est GFR (CKD-EPI)AfAm (>60 ml/min/1.73 sqM) Est GFR (CKD-EPI)NonAf (>60 ml/min/1.73 sqM) Glucose (74-99) mg/dL POC Glucose (mg/dL) 129 H (75-99) mg/dL POC Glu Loom Changeover Operator ID Miguel ÁngelSofia Lactic Ac Sepsis Rflx Plasma Lactic Acid Catrachito (0.7-2.0) mmol/L Calcium (8.4-10.2) mg/dL Total Bilirubin (0.2-1.3) mg/dL AST (14-36) U/L ALT (4-34) U/L Alkaline Phosphatase (38-126) U/L Troponin I (0.000-0.034) ng/mL Total Protein (6.3-8.2) g/dL Albumin (3.5-5.0) g/dL Urine Color Urine Appearance (Clear) Urine pH (5.0-8.0) Ur Specific [place] (1.001-1.035) Urine Protein (Negative) Urine Glucose (UA) (Negative) Urine Ketones (Negative) Urine Blood (Negative) Urine Nitrite (Negative) Urine Bilirubin (Negative) Urine Urobilinogen (<2.0) mg/dL Ur Leukocyte Esterase (Negative) Urine RBC (0-5) /hpf Urine WBC (0-5) /hpf Ur Squamous Epith Cells (0-4) /hpf Urine Bacteria (None) /hpf Cellular Casts (0) /lpf Hyaline Casts (0-2) /lpf Granular Casts (0) /lpf Urine Mucus (None) /hpf 02/27/20 02/27/20 02/27/20 Range/Units 06:38 06:38 06:38 WBC (3.8-10.6) k/uL RBC (3.80-5.40) m/uL Hgb (11.4-16.0) gm/dL Hct (34.0-46.0) % MCV (80.0-100.0) fL MCH (25.0-35.0) pg MCHC (31.0-37.0) g/dL RDW (11.5-15.5) % Plt Count (150-450) k/uL Neutrophils % % Lymphocytes % % Monocytes % % Eosinophils % % Basophils % % Neutrophils # (1.3-7.7) k/uL Lymphocytes # (1.0-4.8) k/uL Monocytes # (0-1.0) k/uL Eosinophils # (0-0.7) k/uL Basophils # (0-0.2) k/uL Manual Slide Review Polychromasia Hypochromasia Poikilocytosis Macrocytosis Tear Drop Cells PT (9.0-12.0) sec INR (<1.2) APTT (22.0-30.0) sec Sodium 136 L (137-145) mmol/L Potassium 4.6 (3.5-5.1) mmol/L Chloride 104 (98-107) mmol/L Carbon Dioxide 26 (22-30) mmol/L Anion Gap 6 mmol/L BUN 28 H (7-17) mg/dL Creatinine 1.80 H (0.52-1.04) mg/dL Est GFR (CKD-EPI)AfAm 34 (>60 ml/min/1.73 sqM) Est GFR (CKD-EPI)NonAf 30 (>60 ml/min/1.73 sqM) Glucose 127 H (74-99) mg/dL POC Glucose (mg/dL) (75-99) mg/dL POC Glu Loom Changeover Operator ID Lactic Ac Sepsis Rflx Plasma Lactic Acid Catrachito 3.8 H* (0.7-2.0) mmol/L Calcium 8.3 L (8.4-10.2) mg/dL Total Bilirubin 1.1 (0.2-1.3) mg/dL AST 35 (14-36) U/L ALT 18 (4-34) U/L Alkaline Phosphatase 22 L (38-126) U/L Troponin I (0.000-0.034) ng/mL Total Protein 5.3 L (6.3-8.2) g/dL Albumin 2.8 L (3.5-5.0) g/dL Urine Color Yellow Urine Appearance Clear (Clear) Urine pH 6.5 (5.0-8.0) Ur Specific [place] 1.027 (1.001-1.035) Urine Protein 2+ H (Negative) Urine Glucose (UA) Negative (Negative) Urine Ketones Negative (Negative) Urine Blood Moderate H (Negative) Urine Nitrite Negative (Negative) Urine Bilirubin Negative (Negative) Urine Urobilinogen <2.0 (<2.0) mg/dL Ur Leukocyte Esterase Small H (Negative) Urine RBC 33 H (0-5) /hpf Urine WBC 37 H (0-5) /hpf Ur Squamous Epith Cells <1 (0-4) /hpf Urine Bacteria Rare H (None) /hpf Cellular Casts 1 (0) /lpf Hyaline Casts 4 H (0-2) /lpf Granular Casts 3 (0) /lpf Urine Mucus Rare H (None) /hpf 02/27/20 02/27/20 Range/Units 06:38 07:11 WBC (3.8-10.6) k/uL RBC (3.80-5.40) m/uL Hgb (11.4-16.0) gm/dL Hct (34.0-46.0) % MCV (80.0-100.0) fL MCH (25.0-35.0) pg MCHC (31.0-37.0) g/dL RDW (11.5-15.5) % Plt Count (150-450) k/uL Neutrophils % % Lymphocytes % % Monocytes % % Eosinophils % % Basophils % % Neutrophils # (1.3-7.7) k/uL Lymphocytes # (1.0-4.8) k/uL Monocytes # (0-1.0) k/uL Eosinophils # (0-0.7) k/uL Basophils # (0-0.2) k/uL Manual Slide Review Polychromasia Hypochromasia Poikilocytosis Macrocytosis Tear Drop Cells PT (9.0-12.0) sec INR (<1.2) APTT (22.0-30.0) sec Sodium (137-145) mmol/L Potassium (3.5-5.1) mmol/L Chloride (98-107) mmol/L Carbon Dioxide (22-30) mmol/L Anion Gap mmol/L BUN (7-17) mg/dL Creatinine (0.52-1.04) mg/dL Est GFR (CKD-EPI)AfAm (>60 ml/min/1.73 sqM) Est GFR (CKD-EPI)NonAf (>60 ml/min/1.73 sqM) Glucose (74-99) mg/dL POC Glucose (mg/dL) (75-99) mg/dL POC Glu Loom Changeover Operator ID Lactic Ac Sepsis Rflx Y Plasma Lactic Acid [place] (0.7-2.0) mmol/L Calcium (8.4-10.2) mg/dL Total Bilirubin (0.2-1.3) mg/dL AST (14-36) U/L ALT (4-34) U/L Alkaline Phosphatase (38-126) U/L Troponin I 0.064 H* (0.000-0.034) ng/mL Total Protein (6.3-8.2) g/dL Albumin (3.5-5.0) g/dL Urine Color Urine Appearance (Clear) Urine pH (5.0-8.0) Ur Specific [place] (1.001-1.035) Urine Protein (Negative) Urine Glucose (UA) (Negative) Urine Ketones (Negative) Urine Blood (Negative) Urine Nitrite (Negative) Urine Bilirubin (Negative) Urine Urobilinogen (<2.0) mg/dL Ur Leukocyte Esterase (Negative) Urine RBC (0-5) /hpf Urine WBC (0-5) /hpf Ur Squamous Epith Cells (0-4) /hpf Urine Bacteria (None) /hpf Cellular Casts (0) /lpf Hyaline Casts (0-2) /lpf Granular Casts (0) /lpf Urine Mucus (None) /hpf - EKG Data -: EKG Interpreted by Me EKG shows normal: sinus rhythm, axis (Normal), intervals (Normal), QRS complexes (Normal), ST-T waves (Normal) Rate: tachycardia (Rate 112 bpm) Critical Care Time Critical Care Time: Yes (40 minutes) Disposition Clinical Impression: Sepsis, Pneumonia, Diabetic foot ulcer, Lactic acidosis Disposition: ADMITTED IP TO THIS [facility] Condition: Serious
[2020-02-27] MEDS ORDERED: SODIUM CHLORIDE 0.9% 1,000 ML IV ONE (08:47)
[2020-02-27] MEDS: predniSONE 20 MG TAB PO SCH (10:10)
[2020-02-27] MEDS: ALPRAZolam 1 MG TAB PO SCH ×2 (10:10→21:01)
[2020-02-27] MEDS: MAGNESIUM OXIDE 400 MG TAB PO SCH (11:19)
[2020-02-27] MEDS: ATORVASTATIN 20 MG TAB PO SCH (11:19)
[2020-02-27] MEDS: LINAGLIPTIN 5 MG TABLET PO SCH (11:19)
[2020-02-27] MEDS: CALCIUM CARB-VIT D 500MG-200UN 1 EACH TAB PO SCH (11:19)
[2020-02-27] MEDS: ACETAMINOPHEN TAB 325 MG TAB PO PRN (16:05)
[2020-02-27 18:50] LABS: Partial Thromboplastin Time 48.8 sec (22.0-30.0)
[2020-02-27 18:56] LABS: INR 7.4 (<1.2); Prothrombin Time 75.7 sec (9.0-12.0)
[2020-02-27] MEDS ORDERED: PHYTONADIONE ORAL 5 MG/5 ML ORAL.SYRG PO STA (19:04)
[2020-02-27] MEDS: SERTRALINE 100 MG TAB PO SCH (21:06)
[2020-02-27 22:20] LABS: Glucose,Whole Blood 132 mg/dL (75-99)
[2020-02-27] MEDS: MIRTAZAPINE 15 MG TAB PO SCH (23:08)
[2020-02-28] MEDS: SODIUM CHLORIDE 0.9% 1,000 ML IV SCH ×4 (01:02→23:33)
--- NOTE | 2020-02-28 01:13 | P.CONS ---
History of Present Illness - Reason for Consult Consult date: 02/27/20 Bacteremia Requesting physician: Haja Salazar - Chief Complaint Fell in the bathroom this morning - History of Present Illness Patient is 64 year female who was brought into the ER after apparently the patient did fell down on the bathroom floor this morning, patient was noticed by the who subsequently called EMS and the patient was brought into the emergency room at [facility], on arrival to the ER patient did have a CT of the brain that was negative for any bleed. The patient did have a angiographic CT of the brain which was negative as well, the patient also have a chest x-ray did show some pulmonary vascular congestion patient was minimally positive patient also spiked a fever of 103F patient white count was normal grievance abnormal UA was mildly positive, patient was started on vancomycin and Zosyn patient did have blood culture drawn which can be positive for gram-positive cocci that has prompted this infection disease consultation vancomycin subsequently has been continued and Zosyn was discontinued, patient time of evaluation is slightly lethargic though arousable but denies having any headache or chest pain shortness of breath or cough. Denies vomiting no problem with diarrhea however the history remains to be limited Review of Systems Positive points has been mentioned in HPI complete review could not be obtained because of his underlying mental status Past Medical History Past Medical History: Blood Disorder, Diabetes Mellitus, GERD/Reflux, Hyperlipidemia, Hypertension, Liver Disease, Osteoarthritis (OA), Renal Disease Additional Past Medical History / Comment(s): crohns, hx. hep c, past hx. sepsis & ards 2007, has ileostomy, hx. kidney stones, hx. of infection,has spacer in, hx. anemia related to intermittent bleeding from stoma, has past hx., uti , low platelets septicemia. CHRONIC KIDNEY DISEASE. History of Any Multi-Drug Resistant Organisms: MRSA Year Discovered:: 04/25/16 MDRO Source:: Blood & Right Hip Past Surgical History: Appendectomy, Bowel Resection, Cholecystectomy, Hernia Repair, Hysterectomy, Tubal Ligation Additional Past Surgical History / Comment(s): ileostomy 2009 WITH 3-4 RE- SUTURING EPISODES RELATED TO BLEEDING, ileoscopy w/argon gas coagulation of stoma, 10-22-16 revison rt toal hip arthroplasty Past Anesthesia/Blood Transfusion Reactions: No Reported Reaction Past Psychological History: Anxiety Additional Psychological History / Comment(s): pt normally lives with her spouse and 1 pet dog in a single level home that has 3 steps in which to enter. but went to [facility] after dc/d from [facility] 06-04-17 Smoking Status: Never smoker Past Alcohol Use History: None Reported Additional Past Alcohol Use History / Comment(s): started 1974, quit smoking 2007, 1ppd Past Drug Use History: None Reported - Past Family History Mother Family Medical History: CVA/TIA, Diabetes Mellitus Additional Family Medical History / Comment(s): Mother at age 88 from CVA. Sister(s) Additional Family Medical History / Comment(s): Patient has 3 sisters with no major medical problems. Patient does not have any brothers. Patient has 2 sons with no major medical problems. Father Family Medical History: Cancer Additional Family Medical History / Comment(s): . Medications and Allergies Home Medications Medication Instructions Recorded Confirmed Type Mirtazapine [Remeron] 15 mg PO HS 06/11/17 02/27/20 History Sertraline HCl [Zoloft] 100 mg PO HS 07/26/17 02/27/20 History Loperamide HCl [Imodium A-D] 2 mg PO TID PRN 05/01/18 02/27/20 History Calcium Carbonate/Vitamin D3 1 tab PO DAILY 06/19/19 02/27/20 History [Calcium 600-Vit D3 800 Caplet] Ferrous Sulfate [Iron (65 MG 325 mg PO DAILY PRN 06/19/19 02/27/20 History Elemental)] Magnesium Oxide [Mag-Ox] 250 mg PO DAILY 06/19/19 02/27/20 History Cholecalciferol (Vitamin D3) 2,000 unit PO DAILY #30 capsule 06/29/19 02/27/20 Rx [Vitamin D3] predniSONE [Deltasone] 20 mg PO DAILY #30 tab 06/30/19 02/27/20 Rx ALPRAZolam [Xanax] 1 mg PO BID 01/26/20 02/27/20 History Cranberry (Unknown Strength) 1 tab PO DAILY 01/26/20 02/27/20 History Rosuvastatin [Crestor] 10 mg PO DAILY 01/26/20 02/27/20 History Vitamin B-12 (Unknown Strength) 1 tab PO DAILY 01/26/20 02/27/20 History allopurinoL [Zyloprim] 100 mg PO DAILY 01/26/20 02/27/20 History lisinopriL [Zestril] 2.5 mg PO DAILY 01/26/20 02/27/20 History sitaGLIPtin PHOSPHATE [Januvia] 50 mg PO DAILY 01/26/20 02/27/20 History Allergies Allergy/AdvReac Type Severity Reaction Status Date / Time adhesive tape Allergy Severe Rash/Hives/Skin Verified 02/27/20 07:45 Peeling levofloxacin [From Levaquin] Allergy Severe Swelling/ra Verified 02/27/20 07:45 sh Quinolones Allergy Severe Anaphylaxis Verified 02/27/20 07:45 /Swelling enoxaparin [From Lovenox] Allergy GI bleed Verified 02/27/20 07:45 Iodinated Contrast Media AdvReac Severe Chest Pain Verified 02/27/20 07:45 [Iodinated Contrast Media - IV Dye] NSAIDS (Non-Steroidal AdvReac Severe GI Verified 02/27/20 07:45 Anti-Inflamma Bleeding/Liver Damage warfarin [From Coumadin] AdvReac Severe Abdominal Verified 02/27/20 07:45 Pain Physical Exam Vitals: Vital Signs Temp Pulse Pulse Resp BP BP Pulse Ox 02/27/20 10:33 99.7 F H 96 22 123/57 100 02/27/20 09:57 83 18 96/53 99 02/27/20 09:30 80 18 97/55 100 02/27/20 09:10 99.2 F 82 24 91/51 100 02/27/20 08:45 83 18 77/46 02/27/20 07:50 101.2 F H 93 24 136/66 100 02/27/20 07:02 103.8 F H 113 H 20 137/67 77 L Intake and Output 02/26/20 02/27/20 02/27/20 22:59 06:59 14:59 Intake Total 4040 Balance 4040 Intake: Intake, IV Titration 4040 Amount Sodium Chloride 0.9% 1, 1040 000 ml @ 130 mls/hr IV . Q7H42M [facility] Rx#:[id number] Sodium Chloride 0.9% 1, 3000 000 ml @ 999 mls/hr IV . Q1H1M [facility] Rx#:[id number] Other: Weight 77.111 kg GENERAL DESCRIPTION: Middle-aged female lying in bed, no distress. No tachypnea or accessory muscle of respiration use. HEENT: Shows Pallor , no scleral icterus. Oral mucous membrane is dry. No pharyngeal erythema or thrush NECK: Trachea central, no thyromegaly. LUNGS: Unlabored breathing. Decreased breath sounds at the base. No wheeze or crackle. HEART: S1, S2, regular rate and rhythm. No loud murmur ABDOMEN: Soft, no tenderness , guarding or rigidity, no organomegaly EXTREMITIES: No edema of feet. SKIN: No rash, no masses palpable. NEUROLOGICAL: The patient is lethargic orientation could not be determined Results CBC & Chem 7: 02/27/20 06:38 02/27/20 06:38 Labs: Abnormal Lab Results - Last 24 Hours (Table) 02/27/20 02/27/20 02/27/20 Range/Units 06:26 06:38 06:38 RBC 3.20 L (3.80-5.40) m/uL Hgb 10.5 L (11.4-16.0) gm/dL Hct 33.0 L (34.0-46.0) % MCV 102.8 H (80.0-100.0) fL RDW 16.0 H (11.5-15.5) % Plt Count 72 L (150-450) k/uL Lymphocytes # 0.8 L (1.0-4.8) k/uL PT 55.0 H (9.0-12.0) sec INR 5.5 H* (<1.2) APTT 38.7 H (22.0-30.0) sec Sodium (137-145) mmol/L BUN (7-17) mg/dL Creatinine (0.52-1.04) mg/dL Glucose (74-99) mg/dL POC Glucose (mg/dL) 129 H (75-99) mg/dL Plasma Lactic Acid [place] (0.7-2.0) mmol/L Calcium (8.4-10.2) mg/dL Alkaline Phosphatase (38-126) U/L Troponin I (0.000-0.034) ng/mL Total Protein (6.3-8.2) g/dL Albumin (3.5-5.0) g/dL Urine Protein (Negative) Urine Blood (Negative) Ur Leukocyte Esterase (Negative) Urine RBC (0-5) /hpf Urine WBC (0-5) /hpf Urine Bacteria (None) /hpf Hyaline Casts (0-2) /lpf Urine Mucus (None) /hpf 02/27/20 02/27/20 02/27/20 Range/Units 06:38 06:38 06:38 RBC (3.80-5.40) m/uL Hgb (11.4-16.0) gm/dL Hct (34.0-46.0) % MCV (80.0-100.0) fL RDW (11.5-15.5) % Plt Count (150-450) k/uL Lymphocytes # (1.0-4.8) k/uL PT (9.0-12.0) sec INR (<1.2) APTT (22.0-30.0) sec Sodium 136 L (137-145) mmol/L BUN 28 H (7-17) mg/dL Creatinine 1.80 H (0.52-1.04) mg/dL Glucose 127 H (74-99) mg/dL POC Glucose (mg/dL) (75-99) mg/dL Plasma Lactic Acid Catr[place] 3.8 H* (0.7-2.0) mmol/L Calcium 8.3 L (8.4-10.2) mg/dL Alkaline Phosphatase 22 L (38-126) U/L Troponin I (0.000-0.034) ng/mL Total Protein 5.3 L (6.3-8.2) g/dL Albumin 2.8 L (3.5-5.0) g/dL Urine Protein 2+ H (Negative) Urine Blood Moderate H (Negative) Ur Leukocyte Esterase Small H (Negative) Urine RBC 33 H (0-5) /hpf Urine WBC 37 H (0-5) /hpf Urine Bacteria Rare H (None) /hpf Hyaline Casts 4 H (0-2) /lpf Urine Mucus Rare H (None) /hpf 02/27/20 Range/Units 06:38 RBC (3.80-5.40) m/uL Hgb (11.4-16.0) gm/dL Hct (34.0-46.0) % MCV (80.0-100.0) fL RDW (11.5-15.5) % Plt Count (150-450) k/uL Lymphocytes # (1.0-4.8) k/uL PT (9.0-12.0) sec INR (<1.2) APTT (22.0-30.0) sec Sodium (137-145) mmol/L BUN (7-17) mg/dL Creatinine (0.52-1.04) mg/dL Glucose (74-99) mg/dL POC Glucose (mg/dL) (75-99) mg/dL Plasma Lactic Acid Catrachito (0.7-2.0) mmol/L Calcium (8.4-10.2) mg/dL Alkaline Phosphatase (38-126) U/L Troponin I 0.064 H* (0.000-0.034) ng/mL Total Protein (6.3-8.2) g/dL Albumin (3.5-5.0) g/dL Urine Protein (Negative) Urine Blood (Negative) Ur Leukocyte Esterase (Negative) Urine RBC (0-5) /hpf Urine WBC (0-5) /hpf Urine Bacteria (None) /hpf Hyaline Casts (0-2) /lpf Urine Mucus (None) /hpf Assessment and Plan Assessment: 1- patient presented to the hospital after the patient did fell in the bathroom this morning PRESENTATION to the hospital in this patient who did have a fever however her white count is normal with evidence of gram-positive bacteremia in this patient currently do not have any obvious focus of infection, patient denies significant respiratory symptoms though chest x-ray did show some pulmonary vascular condition abdominal soft on Examination no evidence of any cellulitis 2- Patient with multiple antibiotic ALLERGIES that would limit the number of antibiotic safe to use (1) Gram-positive bacteremia Current Visit: Yes Status: Acute Code(s): R78.81 - BACTEREMIA SNOMED Code(s): 135676129333 (2) Sepsis Current Visit: Yes Status: Acute Code(s): A41.9 - SEPSIS, UNSPECIFIED ORGANISM SNOMED Code(s): 12591734 Plan: 1- blood cultures will be repeated to document clearance of bacteremia 2-Vancomycin pharmacy to dose target trough of 15 while watching her kidney function and Vanco trough closely We will follow on clinical condition and cultures to further adjust medication if needed Thank you for this consultation will follow this patient with you Time with Patient: Greater than 30
[2020-02-28 02:29] LABS: INR 2.6 (<1.2); Prothrombin Time 25.3 sec (9.0-12.0)
[2020-02-28 06:18] LABS: Glucose,Whole Blood 89 mg/dL (75-99)
[2020-02-28 07:09] LABS: Anisocytosis Slight; HCT 31.8 % (34.0-46.0); Hypochromasia Marked; MCH 32.3 pg (25.0-35.0); MCHC 31.4 g/dL (31.0-37.0); MCV 102.8 fL (80.0-100.0); Macrocytosis Moderate; Poikilocytosis Slight; WBC 5.9 k/uL (3.8-10.6)
[2020-02-28 07:19] LABS: Platelet Count 68 k/uL (150-450)
[2020-02-28 07:53] LABS: INR 1.6 (<1.2); Partial Thromboplastin Time 28.8 sec (22.0-30.0); Prothrombin Time 15.4 sec (9.0-12.0)
[2020-02-28 07:59] LABS: ALT 22 U/L (4-34); AST 65 U/L (14-36); African American GFR (CKD) 49 (>60 ml/min/1.73 sqM); Albumin 2.6 g/dL (3.5-5.0); Alkaline Phosphatase <20 U/L (38-126); Anion Gap 5 mmol/L; Blood Urea Nitrogen 26 mg/dL (7-17); Calcium 7.3 mg/dL (8.4-10.2); Carbon Dioxide 23 mmol/L (22-30); Chloride 112 mmol/L (98-107); Glucose 67 mg/dL (74-99); Magnesium 1.4 mg/dL (1.6-2.3); Non-African American GFR(CKD) 42 (>60 ml/min/1.73 sqM); Phosphorus 3.8 mg/dL (2.5-4.5); Potassium 4.7 mmol/L (3.5-5.1); Sodium 140 mmol/L (137-145); Total Bilirubin 0.9 mg/dL (0.2-1.3); Total Protein 5.2 g/dL (6.3-8.2)
[2020-02-28] MEDS: MAGNESIUM OXIDE 400 MG TAB PO SCH (08:13)
[2020-02-28] MEDS: CALCIUM CARB-VIT D 500MG-200UN 1 EACH TAB PO SCH (08:13)
[2020-02-28] MEDS: ALPRAZolam 1 MG TAB PO SCH ×2 (08:13→21:06)
[2020-02-28] MEDS: LINAGLIPTIN 5 MG TABLET PO SCH (08:14)
[2020-02-28] MEDS: ATORVASTATIN 20 MG TAB PO SCH (08:14)
[2020-02-28] MEDS: predniSONE 20 MG TAB PO SCH (08:14)
[2020-02-28] MEDS: ACETAMINOPHEN TAB 325 MG TAB PO PRN (08:14)
[2020-02-28 08:15] LABS: C Reactive Protein 240.4 mg/L (<10.0)
[2020-02-28] MEDS ORDERED: Magnesium Replacement Protocol 1 EACH MISC MISCELLANE PRN (08:30)
[2020-02-28] MEDS: LOPERAMIDE 2 MG CAP PO PRN (08:42)
[2020-02-28] MEDS ORDERED: ARTIFICIAL TEARS-HYPROMELLOSE DROPS 15 ML BTL BOTH EYES PRN (08:51)
[2020-02-28] MEDS ORDERED: VANCOMYCIN 1,500 MG in SODIUM CHLORIDE 0.9% 250 ML IVPB SCH (09:00)
[2020-02-28] MEDS ORDERED: FAMOTIDINE 20 MG/2 ML VIAL IV SCH (09:00)
--- NOTE | 2020-02-28 10:10 | P.GSCN ---
History of Present Illness History of present illness: 64-year-old white female, patient had history of fall at home she was brought in computed tomography scan and everything was negative patient has a positive blood culture under care of infectious disease. Patient has history of diabetes due to the prednisone, patient has a discoloration of the left foot third toe redness and gangrene changes for the last 2 weeks. Neck examination neck is supple no bruit appreciated Chest few crackles at the lung bases first and second sound normal Abdomen soft nontender Vascular examination brachial brachial radial femoral pulses are present dorsal pedis is palpable patient has a left foot third toe gangrene changes discoloration with some drainage Plan is patient IV antibiotic discussed with infectious disease and internal medicine we will arrange for ray amputation of the left foot third toe this can complication discussed Past Medical History Past Medical History: Blood Disorder, Diabetes Mellitus, GERD/Reflux, Hyperlipidemia, Hypertension, Liver Disease, Osteoarthritis (OA), Renal Disease Additional Past Medical History / Comment(s): crohns, hx. hep c, past hx. se psis & ards 2007, has ileostomy, hx. kidney stones, hx. of infection,has spacer in, hx. anemia related to intermittent bleeding from stoma, has past hx., uti , low platelets septicemia. CHRONIC KIDNEY DISEASE. History of Any Multi-Drug Resistant Organisms: MRSA Year Discovered:: 04/25/16 MDRO Source:: Blood & Right Hip Past Surgical History: Appendectomy, Bowel Resection, Cholecystectomy, Hernia R epair, Hysterectomy, Tubal Ligation Additional Past Surgical History / Comment(s): ileostomy 2009 WITH 3-4 RE- SUTURING EPISODES RELATED TO BLEEDING, ileoscopy w/argon gas coagulation of stoma, 10-22-16 revison rt toal hip arthroplasty Past Anesthesia/Blood Transfusion Reactions: No Reported Reaction Past Psychological History: Anxiety Smoking Status: Never smoker Past Alcohol Use History: None Reported Past Drug Use History: None Reported - Past Family History Mother Family Medical History: CVA/TIA, Diabetes Mellitus Additional Family Medical History / Comment(s): Mother at age 88 from CVA. Sister(s) Additional Family Medical History / Comment(s): Patient has 3 sisters with no major medical problems. Patient does not have any brothers. Patient has 2 sons with no major medical problems. Father Family Medical History: Cancer Additional Family Medical History / Comment(s): . Medications and Allergies Home Medications Medication Instructions Recorded Confirmed Type Mirtazapine [Remeron] 15 mg PO HS 06/11/17 02/27/20 History Sertraline HCl [Zoloft] 100 mg PO HS 07/26/17 02/27/20 History Loperamide HCl [Imodium A-D] 2 mg PO TID PRN 05/01/18 02/27/20 History Calcium Carbonate/Vitamin D3 1 tab PO DAILY 06/19/19 02/27/20 History [Calcium 600-Vit D3 800 Caplet] Ferrous Sulfate [Iron (65 MG 325 mg PO DAILY PRN 06/19/19 02/27/20 History Elemental)] Magnesium Oxide [Mag-Ox] 250 mg PO DAILY 06/19/19 02/27/20 History Cholecalciferol (Vitamin D3) 2,000 unit PO DAILY #30 capsule 06/29/19 02/27/20 Rx [Vitamin D3] predniSONE [Deltasone] 20 mg PO DAILY #30 tab 06/30/19 02/27/20 Rx ALPRAZolam [Xanax] 1 mg PO BID 01/26/20 02/27/20 History Cranberry (Unknown Strength) 1 tab PO DAILY 01/26/20 02/27/20 History Rosuvastatin [Crestor] 10 mg PO DAILY 01/26/20 02/27/20 History Vitamin B-12 (Unknown Strength) 1 tab PO DAILY 01/26/20 02/27/20 History allopurinoL [Zyloprim] 100 mg PO DAILY 01/26/20 02/27/20 History lisinopriL [Zestril] 2.5 mg PO DAILY 01/26/20 02/27/20 History sitaGLIPtin PHOSPHATE [Januvia] 50 mg PO DAILY 01/26/20 02/27/20 History Allergies Allergy/AdvReac Type Severity Reaction Status Date / Time adhesive tape Allergy Severe Rash/Hives/Skin Verified 02/27/20 07:45 Peeling levofloxacin [From Levaquin] Allergy Severe Swelling/ra Verified 02/27/20 07:45 sh Quinolones Allergy Severe Anaphylaxis Verified 02/27/20 07:45 /Swelling enoxaparin [From Lovenox] Allergy GI bleed Verified 02/27/20 07:45 Iodinated Contrast Media AdvReac Severe Chest Pain Verified 02/27/20 07:45 [Iodinated Contrast Media - IV Dye] NSAIDS (Non-Steroidal AdvReac Severe GI Verified 02/27/20 07:45 Anti-Inflamma Bleeding/Liver Damage warfarin [From Coumadin] AdvReac Severe Abdominal Verified 02/27/20 07:45 Pain Surgical - Exam Vital Signs Temp Pulse Resp BP Pulse Ox 103.8 F H 113 H 20 137/67 77 L 02/27/20 07:02 02/27/20 07:02 02/27/20 07:02 02/27/20 07:02 02/27/20 07:02 Results - Labs 02/28/20 06:44 02/28/20 06:32 Abnormal Lab Results - Last 24 Hours (Table) 02/27/20 02/27/20 02/28/20 Range/Units 18:18 22:18 01:43 RBC (3.80-5.40) m/uL Hgb (11.4-16.0) gm/dL Hct (34.0-46.0) % MCV (80.0-100.0) fL RDW (11.5-15.5) % Plt Count (150-450) k/uL PT 75.7 H 25.3 H (9.0-12.0) sec INR 7.4 H* 2.6 H (<1.2) APTT 48.8 H (22.0-30.0) sec Chloride (98-107) mmol/L BUN (7-17) mg/dL Creatinine (0.52-1.04) mg/dL Glucose (74-99) mg/dL POC Glucose (mg/dL) 132 H (75-99) mg/dL Calcium (8.4-10.2) mg/dL Magnesium (1.6-2.3) mg/dL AST (14-36) U/L Alkaline Phosphatase (38-126) U/L C-Reactive Protein (<10.0) mg/L Total Protein (6.3-8.2) g/dL Albumin (3.5-5.0) g/dL 02/28/20 02/28/20 02/28/20 Range/Units 06:32 06:44 06:49 RBC 3.10 L (3.80-5.40) m/uL Hgb 10.0 L (11.4-16.0) gm/dL Hct 31.8 L (34.0-46.0) % MCV 102.8 H (80.0-100.0) fL RDW 16.0 H (11.5-15.5) % Plt Count 68 L (150-450) k/uL PT 15.4 H (9.0-12.0) sec INR 1.6 H (<1.2) APTT (22.0-30.0) sec Chloride 112 H (98-107) mmol/L BUN 26 H (7-17) mg/dL Creatinine 1.35 H (0.52-1.04) mg/dL Glucose 67 L (74-99) mg/dL POC Glucose (mg/dL) (75-99) mg/dL Calcium 7.3 L (8.4-10.2) mg/dL Magnesium 1.4 L (1.6-2.3) mg/dL AST 65 H (14-36) U/L Alkaline Phosphatase <20 L (38-126) U/L C-Reactive Protein 240.4 H (<10.0) mg/L Total Protein 5.2 L (6.3-8.2) g/dL Albumin 2.6 L (3.5-5.0) g/dL Microbiology - Last 24 Hours (Table) 02/27/20 07:28 Blood Culture Gram Stain - Preliminary Blood 02/27/20 07:28 Blood Culture - Final Blood 02/27/20 07:31 Blood Culture - Final Blood 02/27/20 06:38 Urine Culture - Preliminary Urine,Voided Diabetes panel 02/28/20 Range/Units 06:32 Sodium 140 (137-145) mmol/L Potassium 4.7 (3.5-5.1) mmol/L Chloride 112 H (98-107) mmol/L Carbon Dioxide 23 (22-30) mmol/L BUN 26 H (7-17) mg/dL Creatinine 1.35 H (0.52-1.04) mg/dL Glucose 67 L (74-99) mg/dL Calcium 7.3 L (8.4-10.2) mg/dL AST 65 H (14-36) U/L ALT 22 (4-34) U/L Alkaline Phosphatase <20 L (38-126) U/L Total Protein 5.2 L (6.3-8.2) g/dL Albumin 2.6 L (3.5-5.0) g/dL Calcium panel 02/28/20 Range/Units 06:32 Calcium 7.3 L (8.4-10.2) mg/dL Phosphorus 3.8 (2.5-4.5) mg/dL Albumin 2.6 L (3.5-5.0) g/dL Pituitary panel 02/28/20 Range/Units 06:32 Sodium 140 (137-145) mmol/L Potassium 4.7 (3.5-5.1) mmol/L Chloride 112 H (98-107) mmol/L Carbon Dioxide 23 (22-30) mmol/L BUN 26 H (7-17) mg/dL Creatinine 1.35 H (0.52-1.04) mg/dL Glucose 67 L (74-99) mg/dL Calcium 7.3 L (8.4-10.2) mg/dL Adrenal panel 02/28/20 Range/Units 06:32 Sodium 140 (137-145) mmol/L Potassium 4.7 (3.5-5.1) mmol/L Chloride 112 H (98-107) mmol/L Carbon Dioxide 23 (22-30) mmol/L BUN 26 H (7-17) mg/dL Creatinine 1.35 H (0.52-1.04) mg/dL Glucose 67 L (74-99) mg/dL Calcium 7.3 L (8.4-10.2) mg/dL Total Bilirubin 0.9 (0.2-1.3) mg/dL AST 65 H (14-36) U/L ALT 22 (4-34) U/L Alkaline Phosphatase <20 L (38-126) U/L Total Protein 5.2 L (6.3-8.2) g/dL Albumin 2.6 L (3.5-5.0) g/dL
--- NOTE | 2020-02-28 10:23 | US ---
EXAMINATION TYPE: US venous doppler duplex LE LT DATE OF EXAM: 02/28/2020 10:02 AM COMPARISON: NONE CLINICAL HISTORY: R/O DVT. Left toe infection and set up for amputation of it today, assess veins to r/o dvt, mild swelling, no h/o dvt SIDE PERFORMED: Left TECHNIQUE: The lower extremity deep venous system is examined utilizing real time linear array sonog lakshmi with graded compression, doppler sonography and color-flow sonography. VESSELS IMAGED: External Iliac Vein (EIV) Common Femoral Vein Deep Femoral Vein Greater Saphenous Vein * Femoral Vein Popliteal Vein Small Saphenous Vein * Proximal Calf Veins (* superficial vessels) Left Leg: Negative for DVT. There is normal flow, compressibility, vascular waveforms. IMPRESSION: No deep venous thrombosis of the left lower extremity.
[2020-02-28] MEDS: MAGNESIUM SULFATE-D5W PMX 1 GM in DEXTROSE/WATER 1 100ML.BAG IVPB SCH ×3 (11:16→15:37)
--- NOTE | 2020-02-28 12:02 | P.CONS ---
History of Present Illness - Reason for Consult Consult date: 02/28/20 Thrombocytopenia and anemia - History of Present Illness The patient is a 64-year-old white female with multiple medical problems. These include a history of hepatitis C status post treatment with harvoni, as well as Crohn's disease status post ileostomy, on prednisone. The patient actually has a history of chronic pancytopenia with intermittently normal values. Levels have been as low as the 40-50,000 range in 2016. The patient was seen by Dr. Roth some years ago. It appears that the mild chronic from cytopenia was felt to be likely due to her underlying medical problems specifically the liver disease, with no intervention recommended. The patient was admitted this time with weakness and a fall in the bathroom. On admission she was quite lethargic with evaluation showing evidence of SIRS. She spiked a fever of 103. Blood cultures were subsequently positive for gram- positive cocci in clusters. She was noted to have discoloration and ulceration of the left third toe which was felt to be gangrenous. Amputation is planned for later today. On this admission platelets were in the 60-70,000 range. The consult was therefore placed for further evaluation and recommendations. The patient denied any unusual bleeding or bruising. Labs in 2018 had revealed negativity for serum light chain anomaly, B12 or folate deficiency, as well as for autoimmune markers. Labs to appear to indicate at least intermittent iron deficiency with ferritin in the low 100 or lower than 100 range over the past 2 years, along with intermittently low saturations. Review of Systems Constitutional: Reports fever, Reports weakness Eyes: denies blurred vision, denies pain Ears: deny: decreased hearing, ear discharge, earache, tinnitus Ears, nose, mouth and throat: Denies headache, Denies sore throat Cardiovascular: Reports dyspnea on exertion, Reports lightheadedness Respiratory: Reports dyspnea Gastrointestinal: Denies abdominal pain, Denies diarrhea, Denies nausea, Denies vomiting Genitourinary: Denies dysuria, Denies hematuria Menstruation: Reports postmenopausal Musculoskeletal: Reports as per HPI, Reports muscle weakness Integumentary: Reports color changes, Reports foot/leg ulcers Neurological: Reports weakness Psychiatric: Denies anxiety, Denies depression Endocrine: Reports fatigue Hematologic/Lymphatic: Reports as per HPI Past Medical History Past Medical History: Blood Disorder, Diabetes Mellitus, GERD/Reflux, Hyperlipidemia, Hypertension, Liver Disease, Osteoarthritis (OA), Renal Disease Additional Past Medical History / Comment(s): crohns, hx. hep c, past hx. sepsis & ards 2007, has ileostomy, hx. kidney stones, hx. of infection,has spacer in, hx. anemia related to intermittent bleeding from stoma, has past hx., uti , low platelets septicemia. CHRONIC KIDNEY DISEASE. History of Any Multi-Drug Resistant Organisms: MRSA Year Discovered:: 04/25/16 MDRO Source:: Blood & Right Hip Past Surgical History: Appendectomy, Bowel Resection, Cholecystectomy, Hernia Repair, Hysterectomy, Tubal Ligation Additional Past Surgical History / Comment(s): ileostomy 2009 WITH 3-4 RE- SUTURING EPISODES RELATED TO BLEEDING, ileoscopy w/argon gas coagulation of stoma, 10-22-16 revison rt toal hip arthroplasty Past Anesthesia/Blood Transfusion Reactions: No Reported Reaction Past Psychological History: Anxiety Smoking Status: Never smoker Past Alcohol Use History: None Reported Past Drug Use History: None Reported - Past Family History Mother Family Medical History: CVA/TIA, Diabetes Mellitus Additional Family Medical History / Comment(s): Mother at age 88 from CVA. Sister(s) Additional Family Medical History / Comment(s): Patient has 3 sisters with no major medical problems. Patient does not have any brothers. Patient has 2 sons with no major medical problems. Father Family Medical History: Cancer Additional Family Medical History / Comment(s): . Medications and Allergies Home Medications Medication Instructions Recorded Confirmed Type Mirtazapine [Remeron] 15 mg PO HS 06/11/17 02/27/20 History Sertraline HCl [Zoloft] 100 mg PO HS 07/26/17 02/27/20 History Loperamide HCl [Imodium A-D] 2 mg PO TID PRN 05/01/18 02/27/20 History Calcium Carbonate/Vitamin D3 1 tab PO DAILY 06/19/19 02/27/20 History [Calcium 600-Vit D3 800 Caplet] Ferrous Sulfate [Iron (65 MG 325 mg PO DAILY PRN 06/19/19 02/27/20 History Elemental)] Magnesium Oxide [Mag-Ox] 250 mg PO DAILY 06/19/19 02/27/20 History Cholecalciferol (Vitamin D3) 2,000 unit PO DAILY #30 capsule 06/29/19 02/27/20 Rx [Vitamin D3] predniSONE [Deltasone] 20 mg PO DAILY #30 tab 06/30/19 02/27/20 Rx ALPRAZolam [Xanax] 1 mg PO BID 01/26/20 02/27/20 History Cranberry (Unknown Strength) 1 tab PO DAILY 01/26/20 02/27/20 History Rosuvastatin [Crestor] 10 mg PO DAILY 01/26/20 02/27/20 History Vitamin B-12 (Unknown Strength) 1 tab PO DAILY 01/26/20 02/27/20 History allopurinoL [Zyloprim] 100 mg PO DAILY 01/26/20 02/27/20 History lisinopriL [Zestril] 2.5 mg PO DAILY 01/26/20 02/27/20 History sitaGLIPtin PHOSPHATE [Januvia] 50 mg PO DAILY 01/26/20 02/27/20 History Allergies Allergy/AdvReac Type Severity Reaction Status Date / Time adhesive tape Allergy Severe Rash/Hives/Skin Verified 02/27/20 07:45 Peeling levofloxacin [From Levaquin] Allergy Severe Swelling/ra Verified 02/27/20 07:45 sh Quinolones Allergy Severe Anaphylaxis Verified 02/27/20 07:45 /Swelling enoxaparin [From Lovenox] Allergy GI bleed Verified 02/27/20 07:45 Iodinated Contrast Media AdvReac Severe Chest Pain Verified 02/27/20 07:45 [Iodinated Contrast Media - IV Dye] NSAIDS (Non-Steroidal AdvReac Severe GI Verified 02/27/20 07:45 Anti-Inflamma Bleeding/Liver Damage warfarin [From Coumadin] AdvReac Severe Abdominal Verified 02/27/20 07:45 Pain Physical Exam Vitals: Vital Signs Temp Pulse Resp BP BP Pulse Ox 02/28/20 11:00 98.0 F 81 18 89/49 98/47 96 02/28/20 10:45 98.8 F 02/28/20 09:18 101.7 F H 02/28/20 08:02 100.7 F H 92 18 114/56 99 02/28/20 03:46 98.2 F 73 18 125/61 99 02/28/20 00:00 97.3 F L 63 19 93/54 100 02/27/20 19:53 97.7 F 65 20 108/45 98 02/27/20 16:54 99.5 F 02/27/20 15:49 101.8 F H 87 20 112/56 97 Intake and Output 02/27/20 02/28/20 02/28/20 22:59 06:59 14:59 Intake Total 120 200 Output Total 350 750 300 Balance -230 -750 -100 Intake: Oral 120 200 Output: Urine 350 450 Uretheral (Mercado) 350 Stool 300 300 Other: Voiding Method Indwelling Catheter Indwelling Catheter Indwelling Catheter Weight 110 kg - Constitutional General appearance: mild distress (Increased work of respiration) - EENT Eyes: EOMI, PERRLA ENT: hearing grossly normal, normal oropharynx - Neck Neck: no lymphadenopathy - Respiratory Respiratory: bilateral: CTA - Cardiovascular Rhythm: regular Heart sounds: normal: S1, S2 - Gastrointestinal General gastrointestinal: normal bowel sounds, soft - Integumentary Blackish-bluish discoloration of left third toe with scabbed ulcer - Neurologic Neurologic: CNII-XII intact - Musculoskeletal Musculoskeletal: generalized weakness, strength equal bilaterally - Psychiatric Psychiatric: A&O x's 3, appropriate affect Results CBC & Chem 7: 02/28/20 06:44 02/28/20 06:32 Labs: Abnormal Lab Results - Last 24 Hours (Table) 02/27/20 02/27/20 02/28/20 Range/Units 18:18 22:18 01:43 RBC (3.80-5.40) m/uL Hgb (11.4-16.0) gm/dL Hct (34.0-46.0) % MCV (80.0-100.0) fL RDW (11.5-15.5) % Plt Count (150-450) k/uL PT 75.7 H 25.3 H (9.0-12.0) sec INR 7.4 H* 2.6 H (<1.2) APTT 48.8 H (22.0-30.0) sec Chloride (98-107) mmol/L BUN (7-17) mg/dL Creatinine (0.52-1.04) mg/dL Glucose (74-99) mg/dL POC Glucose (mg/dL) 132 H (75-99) mg/dL Calcium (8.4-10.2) mg/dL Magnesium (1.6-2.3) mg/dL AST (14-36) U/L Alkaline Phosphatase (38-126) U/L C-Reactive Protein (<10.0) mg/L Total Protein (6.3-8.2) g/dL Albumin (3.5-5.0) g/dL 02/28/20 02/28/20 02/28/20 Range/Units 06:32 06:44 06:49 RBC 3.10 L (3.80-5.40) m/uL Hgb 10.0 L (11.4-16.0) gm/dL Hct 31.8 L (34.0-46.0) % MCV 102.8 H (80.0-100.0) fL RDW 16.0 H (11.5-15.5) % Plt Count 68 L (150-450) k/uL PT 15.4 H (9.0-12.0) sec INR 1.6 H (<1.2) APTT (22.0-30.0) sec Chloride 112 H (98-107) mmol/L BUN 26 H (7-17) mg/dL Creatinine 1.35 H (0.52-1.04) mg/dL Glucose 67 L (74-99) mg/dL POC Glucose (mg/dL) (75-99) mg/dL Calcium 7.3 L (8.4-10.2) mg/dL Magnesium 1.4 L (1.6-2.3) mg/dL AST 65 H (14-36) U/L Alkaline Phosphatase <20 L (38-126) U/L C-Reactive Protein 240.4 H (<10.0) mg/L Total Protein 5.2 L (6.3-8.2) g/dL Albumin 2.6 L (3.5-5.0) g/dL Microbiology - Last 24 Hours (Table) 02/27/20 07:31 Blood Culture Gram Stain - Preliminary Blood 02/27/20 07:28 Blood Culture Gram Stain - Preliminary Blood 02/27/20 07:28 Blood Culture - Final Blood 02/27/20 07:31 Blood Culture - Final Blood 02/27/20 06:38 Urine Culture - Preliminary Urine,Voided Chest x-ray: report reviewed CT scan - chest: report reviewed CT Scan - head: report reviewed Venous US: report reviewed Assessment and Plan (1) Thrombocytopenia Narrative/Plan: The patient's pancytopenia is quite chronic with fluctuations as noted in the HPI. 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 There may also be some increase destruction from splenic sequestration as a sequelae of the same. Mildly increased consumption from chronic inflammation related to her Crohn's disease is also a possible continuing factor. In this situation further drop in the setting of acute illness, (sepsis due to left toe gangrene) appears to be t he most likely etiology - Platelet counts are in a safe range with no acute intervention required. Levels above 50,000 is considered safe for most types of surgery, anticoagulation, and antiplatelet therapy. - Repeat labs for pancytopenia especially to rule out any new deficiency states given her history of Crohn's disease and ileostomy. - Monitor platelet counts and transfuse supportively if needed. Expectation is for counts will return back to their baseline once acute condition resolves. Current Visit: No Status: Acute Code(s): D69.6 - THROMBOCYTOPENIA, UNSPECIFIED SNOMED Code(s): 353182486 (2) Anemia Narrative/Plan: This is also chronic with fluctuations. Patient's labs show at least intermittent iron deficiency which is not unexpected given her history of ileostomy due to Crohn's disease. Hemoglobin is currently in a safe range. Iron studies will also be ordered as part of her cytopenia workup. Continue to monitor and transfuse if needed. Current Visit: No Status: Acute Code(s): D64.9 - ANEMIA, UNSPECIFIED SNOMED Code(s): 649045081 Plan: Defer to the admitting service and other consultants for management of her other medical problems.
[2020-02-28 12:16] LABS: Glucose,Whole Blood 165 mg/dL (75-99)
[2020-02-28] MEDS ORDERED: SODIUM CHLORIDE 0.9% 1,000 ML IV ONE (13:05)
[2020-02-28] MEDS ORDERED: LIDOCAINE 1% INJ 10MG/ML (20 ML MDV) SQ ONE ×2 (14:00)
--- NOTE | 2020-02-28 16:02 | OP ---
OPERATIVE REPORT PREOPERATIVE DIAGNOSES: Gangrene of the left foot third toe with positive blood culture. OPERATION: Amputation of the left foot third toe at metatarsophalangeal joint. This patient was brought to the operating room. Left foot was prepped and draped in a sterile manner under local and IV sedation. Incision was made from the dorsal aspect of the foot. Elliptical incision deepened through the skin, fat, and fascia. Incision was extended to the plantar aspect, deepened through skin, fat and fascia. The tendons were divided. There was some digital vessels were suture ligated. The periosteum was elevated through the periosteal elevator. We reached the metatarsophalangeal joint and the third toe was removed, which was sent for culture. Hemostasis was well controlled and his wound was irrigated with saline and incision was closed in 2 layers using 4-0 Vicryl and skin was closed with 5-0 nylon with interrupted suture. Dressing applied. Patient tolerated the procedure well. MMODL / IJN: [id number] /
[2020-02-28 16:58] LABS: Glucose,Whole Blood 190 mg/dL (75-99)
--- NOTE | 2020-02-28 17:13 | P.HPIM ---
History of Present Illness This is a 64-year-old female with past medical history of Crohn's disease status post ileostomy, type 2 diabetes, hepatitis C liver disease, osteoarthritis history of kidney stones, chronic iron deficiency anemia, with an issue with stomal bleed on and off, status post upper and lower endoscopy with capsule endoscopy with Dr. Stanton. Was recently discharged from hospital for stomal bleed. She presents today with altered mental status brought by . Patient fell today in the bathroom and was noticed to be slightly confused so she was brought to the emergency room where she was found to have fever of 103. When I saw the patient she was fully awake and oriented, slightly lethargic but she can answer questions appropriately. Vitas looks stable, blood pressure was on the low side 93/54, currently is better at 125/61, patient is saturating 99% on 4 L oxygen via nasal cannula. On admission he had a fever of 103.8. No leukocytosis and hemoglobin 10.0, INR is 2.6 and 1.6. BMP showing elevated creatinine at 1. liver enzymes are slightly up. Negative CT of the brain and CTA of the head and neck. Chest x-ray: No acute process shows some pulmonary vascular congestion. EKG showing sinus tachycardia at [address]-T changes. And emergency room region was started on Zosyn and vancomycin, later on Zosyn was stopped per infectious disease recommendation Review of Systems CONSTITUTIONAL: No fever, no malaise, no fatigue. HEENT: No recent visual problems or hearing problems. Denied any sore throat. CARDIOVASCULAR: No orthopnea, PND, no palpitations, no syncope. PULMONARY: No shortness of breath, no cough, no hemoptysis. GASTROINTESTINAL: No diarrhea, no nausea, no vomiting, no abdominal pain. Normoactive bowel sounds. NEUROLOGICAL: No headaches, no weakness, no numbness. HEMATOLOGICAL: Denies any bleeding or petechiae. GENITOURINARY: Denies any burning micturition, frequency, or urgency. MUSCULOSKELETAL/RHEUMATOLOGICAL: Denies any joint pain, swelling, or any muscle pain. ENDOCRINE: Denies any polyuria or polydipsia. Past Medical History Past Medical History: Blood Disorder, Diabetes Mellitus, GERD/Reflux, Hyperlipidemia, Hypertension, Liver Disease, Osteoarthritis (OA), Renal Disease Additional Past Medical History / Comment(s): crohns, hx. hep c, past hx. sepsis & ards 2007, has ileostomy, hx. kidney stones, hx. of infection,has spacer in, hx. anemia related to intermittent bleeding from stoma, has past hx., uti , low platelets septicemia. CHRONIC KIDNEY DISEASE. History of Any Multi-Drug Resistant Organisms: MRSA Date of last positivie culture/infection: 04/25/16 MDRO Source:: Blood & Right Hip Past Surgical History: Appendectomy, Bowel Resection, Cholecystectomy, Hernia Repair, Hysterectomy, Tubal Ligation Additional Past Surgical History / Comment(s): ileostomy 2009 WITH 3-4 RE- SUTURING EPISODES RELATED TO BLEEDING, ileoscopy w/argon gas coagulation of stoma, 10-22-16 revison rt toal hip arthroplasty Past Anesthesia/Blood Transfusion Reactions: No Reported Reaction Past Psychological History: Anxiety Smoking Status: Never smoker Past Alcohol Use History: None Reported Past Drug Use History: None Reported - Past Family History Mother Family Medical History: CVA/TIA, Diabetes Mellitus Additional Family Medical History / Comment(s): Mother at age 88 from CVA. Sister(s) Additional Family Medical History / Comment(s): Patient has 3 sisters with no major medical problems. Patient does not have any brothers. Patient has 2 sons with no major medical problems. Father Family Medical History: Cancer Additional Family Medical History / Comment(s): . Medications and Allergies Home Medications Medication Instructions Recorded Confirmed Type Mirtazapine [Remeron] 15 mg PO HS 06/11/17 02/27/20 History Sertraline HCl [Zoloft] 100 mg PO HS 07/26/17 02/27/20 History Loperamide HCl [Imodium A-D] 2 mg PO TID PRN 05/01/18 02/27/20 History Calcium Carbonate/Vitamin D3 1 tab PO DAILY 06/19/19 02/27/20 History [Calcium 600-Vit D3 800 Caplet] Ferrous Sulfate [Iron (65 MG 325 mg PO DAILY PRN 06/19/19 02/27/20 History Elemental)] Magnesium Oxide [Mag-Ox] 250 mg PO DAILY 06/19/19 02/27/20 History Cholecalciferol (Vitamin D3) 2,000 unit PO DAILY #30 capsule 06/29/19 02/27/20 Rx [Vitamin D3] predniSONE [Deltasone] 20 mg PO DAILY #30 tab 06/30/19 02/27/20 Rx ALPRAZolam [Xanax] 1 mg PO BID 01/26/20 02/27/20 History Cranberry (Unknown Strength) 1 tab PO DAILY 01/26/20 02/27/20 History Rosuvastatin [Crestor] 10 mg PO DAILY 01/26/20 02/27/20 History Vitamin B-12 (Unknown Strength) 1 tab PO DAILY 01/26/20 02/27/20 History allopurinoL [Zyloprim] 100 mg PO DAILY 01/26/20 02/27/20 History lisinopriL [Zestril] 2.5 mg PO DAILY 01/26/20 02/27/20 History sitaGLIPtin PHOSPHATE [Januvia] 50 mg PO DAILY 01/26/20 02/27/20 History Allergies Allergy/AdvReac Type Severity Reaction Status Date / Time adhesive tape Allergy Severe Rash/Hives/Skin Verified 02/27/20 07:45 Peeling levofloxacin [From Levaquin] Allergy Severe Swelling/ra Verified 02/27/20 07:45 sh Quinolones Allergy Severe Anaphylaxis Verified 02/27/20 07:45 /Swelling enoxaparin [From Lovenox] Allergy GI bleed Verified 02/27/20 07:45 Iodinated Contrast Media AdvReac Severe Chest Pain Verified 02/27/20 07:45 [Iodinated Contrast Media - IV Dye] NSAIDS (Non-Steroidal AdvReac Severe GI Verified 02/27/20 07:45 Anti-Inflamma Bleeding/Liver Damage warfarin [From Coumadin] AdvReac Severe Abdominal Verified 02/27/20 07:45 Pain Physical Exam Vitals: Vital Signs Temp Pulse Pulse Resp BP BP Pulse Ox 02/28/20 03:46 98.2 F 73 18 125/61 99 02/28/20 00:00 97.3 F L 63 19 93/54 100 02/27/20 19:53 97.7 F 65 20 108/45 98 02/27/20 16:54 99.5 F 02/27/20 15:49 101.8 F H 87 20 112/56 97 02/27/20 10:33 99.7 F H 96 22 123/57 100 02/27/20 09:57 83 18 96/53 99 02/27/20 09:30 80 18 97/55 100 02/27/20 09:10 99.2 F 82 24 91/51 100 02/27/20 08:45 83 18 77/46 02/27/20 07:50 101.2 F H 93 24 136/66 100 Intake and Output 02/27/20 02/28/20 02/28/20 22:59 06:59 14:59 Intake Total 120 Output Total 350 750 Balance -230 -750 Intake: Oral 120 Output: Urine 350 450 Uretheral (Mercado) 350 Stool 300 Other: Voiding Method Indwelling Catheter Indwelling Catheter Weight 110 kg GENERAL: The patient is alert and oriented x3, not in any acute distress. Well developed, well nourished. HEENT: Pupils are round and equally reacting to light. EOMI. No scleral icterus. No conjunctival pallor. Normocephalic, atraumatic. No pharyngeal erythema. No thyromegaly. CARDIOVASCULAR: S1 and S2 present. No murmurs, rubs, or gallops. PULMONARY: Chest is clear to auscultation, no wheezing or crackles. ABDOMEN: Soft, nontender, nondistended, normoactive bowel sounds. No palpable organomegaly. MUSCULOSKELETAL: No joint swelling or deformity. EXTREMITIES: No cyanosis, clubbing, or pedal edema. Left third toe is red and dusky in color suspicious for gangrene, left AND distal two thirds of left leg is swollen and warm -NEUROLOGICAL: Gross neurological examination did not reveal any focal deficits. SKIN: No rashes. No petechiae Results CBC & Chem 7: 02/28/20 06:44 02/28/20 06:32 Labs: Abnormal Lab Results - Last 24 Hours (Table) 02/27/20 02/27/20 02/27/20 Range/Units 06:38 18:18 22:18 RBC 3.20 L (3.80-5.40) m/uL Hgb 10.5 L (11.4-16.0) gm/dL Hct 33.0 L (34.0-46.0) % MCV 102.8 H (80.0-100.0) fL RDW 16.0 H (11.5-15.5) % Plt Count 72 L (150-450) k/uL Lymphocytes # 0.8 L (1.0-4.8) k/uL PT 75.7 H (9.0-12.0) sec INR 7.4 H* (<1.2) APTT 48.8 H (22.0-30.0) sec POC Glucose (mg/dL) 132 H (75-99) mg/dL 02/28/20 02/28/20 Range/Units 01:43 06:44 RBC 3.10 L (3.80-5.40) m/uL Hgb 10.0 L (11.4-16.0) gm/dL Hct 31.8 L (34.0-46.0) % MCV 102.8 H (80.0-100.0) fL RDW 16.0 H (11.5-15.5) % Plt Count 68 L (150-450) k/uL Lymphocytes # (1.0-4.8) k/uL PT 25.3 H (9.0-12.0) sec INR 2.6 H (<1.2) APTT (22.0-30.0) sec POC Glucose (mg/dL) (75-99) mg/dL Microbiology - Last 24 Hours (Table) 02/27/20 07:28 Blood Culture Gram Stain - Preliminary Blood 02/27/20 07:28 Blood Culture - Final Blood 02/27/20 07:31 Blood Culture - Final Blood 02/27/20 06:38 Urine Culture - Preliminary Urine,Voided Thrombosis Risk Factor Assmnt - Choose All That Apply Any of the Below Risk Factors Present?: Yes Each Factor Represents 1 point: Obesity (BMI >25), Sepsis (< 1month), Swollen legs (current) Other Risk Factors: Yes Each Risk Factor Represents 2 Points: Age 61-74 years Other congenital or acquired thrombophilia - If yes, enter type in comment: No Thrombosis Risk Factor Assessment Total Risk Factor Score: 5 Thrombosis Risk Factor Assessment Level: High Risk Assessment and Plan Assessment: Altered mental status, mostly metabolic encephalopathy Fall at her house t Left third toe gangrene sepsis with fever and tachypnea and tachycardia Recent history of stomal bleeding Chronic kidney disease stage III Diabetes mellitus Hepatitis C Crohn's disease, status post ileostomy 2007 Generalized anxiety disorder Hypertension Plan: This is a pleasant 64 years old female who presents with sepsis and fall, source of infection is not clear. Infectious disease already evaluated the patient and start her on vancomycin. Follow-up repeat culture results.Consult vascular surgery for her left third toe gangrene. Hold lisinopril, continue with normal saline and follow-up blood pressure Labs and medication were reviewed.. Continue same treatment. Continue with symptomatic treatment. Resume home medication. Monitor lytes and vitals. DVT and GI prophylaxis. Further recommendations of the clinical course of the patient DVT prophylaxis: Subcutaneous heparin, with close monitoring of hemoglobin and platelets as she has recent history of stomal bleeding GI Prophylaxis: Pepcid Prognosis is guarded
[2020-02-28 20:15] LABS: Glucose,Whole Blood 234 mg/dL (75-99)
[2020-02-28] MEDS: SERTRALINE 100 MG TAB PO SCH (21:06)
[2020-02-28] MEDS: MIRTAZAPINE 15 MG TAB PO SCH (21:06)
[2020-02-28] MEDS: HEPARIN SODIUM,PORCINE 5,000 UNIT/ML 1 ML VIAL SQ SCH (21:06)
[2020-02-28] MEDS: INSULIN ASPART (NovoLOG) 100 UNIT/ML VIAL SQ SCH (21:09)
--- NOTE | 2020-02-28 21:34 | PN ---
PROGRESS NOTE DATE OF SERVICE: 02/28/2020 REASON FOR FOLLOWUP: Sepsis with left third toe diabetic foot infection. INTERVAL HISTORY: Patient overall feels better and has improved. The patient was taken to the OR and is status post left third toe amputation. Patient tolerated the procedure. Currently denies having any chest pain, shortness of breath or cough. No nausea, vomiting. No abdominal pain or diarrhea. PHYSICAL EXAMINATION: Blood pressure is 92/58 with a pulse of 68, temperature is 97.8. She is 96% on 2 L nasal cannula. General description is a middle-aged female lying in bed in no distress. Respiratory system: Unlabored breathing, clear to auscultation anteriorly. Heart S1, S2. Regular rate and rhythm. Abdomen soft, no tenderness. Left foot is currently dressed. No obvious drainage on the dressing. LABS: Blood culture with Staph aureus MSSA. DIAGNOSTIC IMPRESSION AND PLAN: Patient with sepsis, source is left third toe diabetic foot infection with underlying osteomyelitis in this patient who is status post amputation. Blood culture positive this morning and will repeat it for tomorrow to document clearance of bacteremia. Antibiotic will be adjusted to cefazolin 2 grams q.8 hours and will monitor clinical course closely. MMODL / IJN: [id number] /
[2020-02-28 22:22] LABS: Protein, Total 5.1 g/dL (6.2-8.2)
[2020-02-28 22:31] LABS: Ferritin 76.6 ng/mL (10.0-291.0)
[2020-02-28 22:45] LABS: % Iron Saturation 2.33 (12.00-45.00)
[2020-02-29] MEDS: ACETAMINOPHEN TAB 325 MG TAB PO PRN ×3 (03:55→23:14)
[2020-02-29] MEDS: SODIUM CHLORIDE 0.9% 1,000 ML IV SCH ×2 (05:26→11:49)
[2020-02-29 06:16] LABS: Glucose,Whole Blood 135 mg/dL (75-99)
[2020-02-29] MEDS: INSULIN ASPART (NovoLOG) 100 UNIT/ML VIAL SQ SCH ×4 (06:32→20:03)
[2020-02-29 06:51] LABS: Basophils % (A) 0 %; Eosinophils # (A) 0.1 k/uL (0-0.7); Eosinophils % (A) 2 %; HCT 27.9 % (34.0-46.0); HGB 8.5 gm/dL (11.4-16.0); Hypochromasia Marked; Lymphocytes # (A) 0.3 k/uL (1.0-4.8); Lymphocytes % (A) 8 %; MCH 32.4 pg (25.0-35.0); MCHC 30.4 g/dL (31.0-37.0); MCV 106.9 fL (80.0-100.0); Macrocytosis Marked; Mean Platelet Volume 8.4; Monocytes # (A) 0.2 k/uL (0-1.0); Monocytes % (A) 5 %; Neutrophils # (A) 3.1 k/uL (1.3-7.7); Neutrophils % (A) 83 %; Poikilocytosis Slight; RBC 2.61 m/uL (3.80-5.40); RDW 15.9 % (11.5-15.5); WBC 3.7 k/uL (3.8-10.6)
[2020-02-29 06:52] LABS: Platelet Count 74 k/uL (150-450)
[2020-02-29 07:13] LABS: Albumin 2.3 g/dL (3.5-5.0); Calcium 7.1 mg/dL (8.4-10.2); Magnesium 2.2 mg/dL (1.6-2.3); Phosphorus 2.3 mg/dL (2.5-4.5); Potassium 3.6 mmol/L (3.5-5.1); Total Bilirubin 0.6 mg/dL (0.2-1.3); Total Protein 4.9 g/dL (6.3-8.2)
[2020-02-29] MEDS: CALCIUM CARB-VIT D 500MG-200UN 1 EACH TAB PO SCH (08:12)
[2020-02-29] MEDS: ALPRAZolam 1 MG TAB PO SCH ×2 (08:12→20:03)
[2020-02-29] MEDS: HEPARIN SODIUM,PORCINE 5,000 UNIT/ML 1 ML VIAL SQ SCH ×3 (08:12→19:58)
[2020-02-29] MEDS: predniSONE 20 MG TAB PO SCH (08:12)
[2020-02-29] MEDS: FAMOTIDINE 20 MG/2 ML VIAL IV SCH (08:12)
[2020-02-29] MEDS: MAGNESIUM OXIDE 400 MG TAB PO SCH (08:12)
[2020-02-29] MEDS: LINAGLIPTIN 5 MG TABLET PO SCH (08:12)
[2020-02-29] MEDS: ATORVASTATIN 20 MG TAB PO SCH (08:12)
[2020-02-29 08:47] LABS: Partial Thromboplastin Time 28.9 sec (22.0-30.0)
[2020-02-29 11:59] LABS: Glucose,Whole Blood 181 mg/dL (75-99)
[2020-02-29 16:31] LABS: Glucose,Whole Blood 228 mg/dL (75-99)
[2020-02-29 19:58] LABS: Glucose,Whole Blood 199 mg/dL (75-99)
[2020-02-29] MEDS: traMADol 50 MG TAB PO PRN (20:03)
[2020-02-29] MEDS: MIRTAZAPINE 15 MG TAB PO SCH (20:03)
[2020-02-29] MEDS: SERTRALINE 100 MG TAB PO SCH (20:03)
--- NOTE | 2020-02-29 20:38 | P.PN ---
Objective - Vital Signs Vital signs: Vital Signs Temp 98.2 F 02/29/20 16:21 Pulse 75 02/29/20 16:21 Resp 18 02/29/20 16:21 BP 115/62 02/29/20 16:21 Pulse Ox 95 02/29/20 16:21 Intake & Output 02/28/20 02/29/20 02/29/20 18:59 06:59 18:59 Intake Total 2675 1050 Output Total 434 325 7186 Balance 8062 -006 -600 Weight 110 kg 69 kg Intake: IV 250 Intake, IV Titration 2110 650 Amount Magnesium Sulfate-D5w Pmx 300 1 gm In Dextrose/Water 1 100ml.bag @ 100 mls/hr IVPB Q1H [facility] Rx#: [id number] Sodium Chloride 0.9% 1, 1560 600 000 ml @ 130 mls/hr IV . Q7H42M [facility] Rx#:[id number] Vancomycin 1,500 mg In 250 Sodium Chloride 0.9% 250 ml @ 125 mls/hr IVPB Q24H [facility] Rx#:[id number] ceFAZolin 2 gm In Sodium 50 Chloride 0.9% 50 ml @ 100 mls/hr IVPB Q8HR [facility] Rx# :[id number] Oral 315 400 Output: Urine 200 480 830 Uretheral (Mercado) 200 150 Stool 812 735 6233 Estimated Blood Loss 10 Other: Voiding Method Indwelling Catheter Indwelling Catheter Indwelling Catheter # Bowel Movements 500 - Exam This is a 64-year-old female with past medical history of Crohn's disease status post ileostomy, type 2 diabetes, hepatitis C liver disease, osteoarthritis history of kidney stones, chronic iron deficiency anemia, with an issue with stomal bleed on and off, status post upper and lower endoscopy with capsule endoscopy with Dr. Stanton. Was recently discharged from hospital for stomal bleed. She presents today with altered mental status brought by . Patient fell today in the bathroom and was noticed to be slightly confused so she was brought to the emergency room where she was found to have fever of 103. When I saw the patient she was fully awake and oriented, slightly lethargic but she can answer questions appropriately. Vitas looks stable, blood pressure was on the low side 93/54, currently is better at 125/61, patient is saturating 99% on 4 L oxygen via nasal cannula. On admission he had a fever of 103.8. No leukocytosis and hemoglobin 10.0, INR is 2.6 and 1.6. BMP showing elevated creatinine at 1. liver enzymes are slightly up. Negative CT of the brain and CTA of the head and neck. Chest x-ray: No acute process shows some pulmonary vascular congestion. EKG showing sinus tachycardia at [address]-T changes. And emergency room region was started on Zosyn and vancomycin, later on Zosyn was stopped per infectious disease recommendation 02/29/20 Patient lying in bed comfortable, she is fully awake and oriented, no chest pain or dyspnea, tolerating diet well, no abdominal pain. No fever. Left lower extremity cellulitis is significantly improving. On reviewing further information patient states that she has gone endoscopy done for her about 2 years ago and she had only polyps. She was a little bit hypoxic so IV fluids were stopped and we'll check chest x- ray. Tissue culture and blood culture showing presumptive staph, patient is already on antibiotics cefepime, infectious disease on the case currently she is on cefazolin for ID team, also patient has underlying osteomyelitis per ID team, her ESR is elevated at 115 Patient was pancytopenia, Hematology of the case Review of Systems CONSTITUTIONAL: No fever, no malaise, no fatigue. HEENT: No recent visual problems or hearing problems. Denied any sore throat. CARDIOVASCULAR: No orthopnea, PND, no palpitations, no syncope. PULMONARY: No shortness of breath, no cough, no hemoptysis. GASTROINTESTINAL: No diarrhea, no nausea, no vomiting, no abdominal pain. Normoactive bowel sounds. NEUROLOGICAL: No headaches, no weakness, no numbness. Active Medications Generic Name Dose Route Start Last Admin Trade Name Freq PRN Reason Stop Dose Admin Acetaminophen 650 mg 02/27/20 15:24 02/29/20 08:11 Tylenol Tab PO 650 mg Q4HR PRN Administration Fever and/ or Pain Alprazolam 1 mg 02/27/20 09:00 02/29/20 20:03 Xanax PO 1 mg BID [facility] Administration Artificial Tears 2 drops 02/28/20 08:51 Artificial Tear Drops BOTH EYES QID PRN Dry Eye(s) Atorvastatin Calcium 20 mg 02/27/20 09:00 02/29/20 08:12 Lipitor PO 20 mg DAILY [facility] Administration Calcium Carbonate 1 each 02/27/20 09:00 02/29/20 08:12 Oscal 500+D PO 1 each DAILY [facility] Administration Famotidine 20 mg 02/29/20 09:00 02/29/20 08:12 Pepcid IV 20 mg DAILY [facility] Administration Ferrous Sulfate 325 mg 02/27/20 08:09 Feosol PO DAILY PRN Bleeding Heparin Sodium (Porcine) 5,000 unit 02/28/20 21:00 02/29/20 19:58 Heparin SQ Not Given Q12HR [facility] Cefazolin Sodium 2 gm/ Sodium 50 mls @ 100 mls/hr 02/28/20 16:45 02/29/20 16: 32 Chloride IVPB 100 mls/hr Q8HR [facility] Administration Insulin Aspart 0 unit 02/28/20 21:00 02/29/20 20:03 Novolog SQ 3 unit ACHS [facility] Administration Protocol Linagliptin 5 mg 02/27/20 09:00 02/29/20 08:12 Tradjenta PO 5 mg DAILY [facility] Administration Loperamide HCl 2 mg 02/27/20 08:09 02/28/20 08:42 Imodium PO 2 mg TID PRN Administration Diarrhea Magnesium Oxide 400 mg 02/27/20 09:00 02/29/20 08:12 Mag-Ox PO 400 mg DAILY [facility] Administration Mirtazapine 15 mg 02/27/20 21:00 02/29/20 20:03 Remeron PO 15 mg HS [facility] Administration Miscellaneous Information 1 each 02/28/20 08:30 Magnesium Per Protocol MISCELLANE DAILY PRN Per Protocol Protocol Prednisone 20 mg 02/27/20 09:00 02/29/20 08:12 PO 20 mg DAILY [facility] Administration Sertraline HCl 100 mg 02/27/20 21:00 02/29/20 20:03 Zoloft PO 100 mg HS [facility] Administration Tramadol HCl 50 mg 02/29/20 19:43 02/29/20 20:03 Ultram PO 50 mg TID PRN Administration Pain - Labs CBC & Chem 7: 02/29/20 06:33 02/29/20 06:33 Labs: Abnormal Lab Results - Last 24 Hours (Table) 02/28/20 02/28/20 02/28/20 Range/Units 06:44 12:32 20:13 WBC (3.8-10.6) k/uL RBC (3.80-5.40) m/uL Hgb (11.4-16.0) gm/dL Hct (34.0-46.0) % MCV (80.0-100.0) fL MCHC (31.0-37.0) g/dL RDW (11.5-15.5) % Plt Count (150-450) k/uL Lymphocytes # (1.0-4.8) k/uL Macrocytosis Chloride (98-107) mmol/L Carbon Dioxide (22-30) mmol/L BUN (7-17) mg/dL Creatinine (0.52-1.04) mg/dL Glucose (74-99) mg/dL POC Glucose (mg/dL) 234 H (75-99) mg/dL Calcium (8.4-10.2) mg/dL Phosphorus (2.5-4.5) mg/dL Iron 8 L (50-170) ug/dL % Saturation 2.33 L (12.00-45.00) AST (14-36) U/L Alkaline Phosphatase (38-126) U/L Total Protein (6.3-8.2) g/dL Total Protein (PEP) 5.1 L (6.2-8.2) g/dL Albumin (3.5-5.0) g/dL Vitamin B12 1204.0 H (200.0-944.0) pg/mL 02/29/20 02/29/20 02/29/20 Range/Units 06:15 06:33 06:33 WBC 3.7 L (3.8-10.6) k/uL RBC 2.61 L (3.80-5.40) m/uL Hgb 8.5 L D (11.4-16.0) gm/dL Hct 27.9 L (34.0-46.0) % MCV 106.9 H (80.0-100.0) fL MCHC 30.4 L (31.0-37.0) g/dL RDW 15.9 H (11.5-15.5) % Plt Count 74 L (150-450) k/uL Lymphocytes # 0.3 L (1.0-4.8) k/uL Macrocytosis Marked A Chloride 114 H (98-107) mmol/L Carbon Dioxide 21 L (22-30) mmol/L BUN 24 H (7-17) mg/dL Creatinine 1.31 H (0.52-1.04) mg/dL Glucose 110 H (74-99) mg/dL POC Glucose (mg/dL) 135 H (75-99) mg/dL Calcium 7.1 L (8.4-10.2) mg/dL Phosphorus 2.3 L (2.5-4.5) mg/dL Iron (50-170) ug/dL % Saturation (12.00-45.00) AST 49 H (14-36) U/L Alkaline Phosphatase 37 L (38-126) U/L Total Protein 4.9 L (6.3-8.2) g/dL Total Protein (PEP) (6.2-8.2) g/dL Albumin 2.3 L (3.5-5.0) g/dL Vitamin B12 (200.0-944.0) pg/mL 02/29/20 02/29/20 Range/Units 11:57 16:29 WBC (3.8-10.6) k/uL RBC (3.80-5.40) m/uL Hgb (11.4-16.0) gm/dL Hct (34.0-46.0) % MCV (80.0-100.0) fL MCHC (31.0-37.0) g/dL RDW (11.5-15.5) % Plt Count (150-450) k/uL Lymphocytes # (1.0-4.8) k/uL Macrocytosis Chloride (98-107) mmol/L Carbon Dioxide (22-30) mmol/L BUN (7-17) mg/dL Creatinine (0.52-1.04) mg/dL Glucose (74-99) mg/dL POC Glucose (mg/dL) 181 H 228 H (75-99) mg/dL Calcium (8.4-10.2) mg/dL Phosphorus (2.5-4.5) mg/dL Iron (50-170) ug/dL % Saturation (12.00-45.00) AST (14-36) U/L Alkaline Phosphatase (38-126) U/L Total Protein (6.3-8.2) g/dL Total Protein (PEP) (6.2-8.2) g/dL Albumin (3.5-5.0) g/dL Vitamin B12 (200.0-944.0) pg/mL Microbiology - Last 24 Hours (Table) 02/27/20 07:31 Blood Culture Gram Stain - Final Blood Blood Culture - Final Staphylococcus aureus 02/27/20 07:28 Blood Culture Gram Stain - Final Blood Blood Culture - Final Staphylococcus aureus 02/28/20 06:32 Blood Culture Gram Stain - Preliminary Blood 02/28/20 14:21 Gram Stain - Preliminary Toe - Left Third Tissue Culture - Preliminary 02/28/20 06:32 Blood Culture - Final Blood 02/28/20 14:21 Anaerobic Culture - Preliminary Toe - Left Third 02/27/20 06:38 Urine Culture - Final Urine,Voided Assessment and Plan Assessment: Altered mental status, mostly metabolic encephalopathy. Completely resolved Fall at her house Left third toe gangrene, status post amputation, with underlying osteomyelitis sepsis with fever and tachypnea and tachycardia, with positive blood culture Iron deficiency anemia, patient has recent history of stomal bleeding Recent history of stomal bleeding Chronic kidney disease stage III Diabetes mellitus Hepatitis C Crohn's disease, status post ileostomy 2007 Generalized anxiety disorder Hypertension Plan: This is a pleasant 64 years old female who presents with sepsis and left lower extremity cellulitis and underlying osteomyelitis, status post amputation of left gangrenous toe. Follow-up recommendation by infectious disease and surgical service, patient is on antibiotics as per ID team. Also associate engineer team on the case. Discontinue IV fluids and check chest x-ray. Labs and medication were reviewed.. Continue same treatment. Continue with symptomatic treatment. Resume home medication. Monitor lytes and vitals. DVT and GI prophylaxis. Further recommendations of the clinical course of the patient DVT prophylaxis: Subcutaneous heparin, with close monitoring of hemoglobin and platelets as she has recent history of stomal bleeding GI Prophylaxis: Pepcid Physical therapy recommended. Home health care versus subacute rehab, social service technician consult Prognosis is guarded Tomorrow Dr. Kothari will resume the care of the patient
--- NOTE | 2020-02-29 20:44 | XR ---
EXAMINATION TYPE: XR chest 1V DATE OF EXAM: 02/29/2020 COMPARISON: 02/27/2020 HISTORY: 64-year-old female shortness of breath TECHNIQUE: Single frontal view of the chest is obtained. FINDINGS: Heart mildly enlarged. Increasing focal right basilar opacity. Multiple right-sided rib fr acture deformities. No sizable effusion. IMPRESSION: 1. Cardiomegaly. 2. New focal right basilar opacity. Pneumonia not excluded.
[2020-02-29] MEDS ORDERED: METOPROLOL TARTRATE 25 MG TAB PO SCH (21:45)
[2020-02-29] MEDS ORDERED: SODIUM CHLORIDE 0.9% 1,000 ML IV SCH (22:30)
[2020-02-29 23:02] LABS: Prothrombin Time 10.7 sec (9.0-12.0)
[2020-02-29 23:03] LABS: HCT 28.2 % (34.0-46.0); HGB 8.6 gm/dL (11.4-16.0); Hypochromasia Marked; MCH 32.1 pg (25.0-35.0); MCHC 30.6 g/dL (31.0-37.0); MCV 105.1 fL (80.0-100.0); Macrocytosis Moderate; Mean Platelet Volume 8.6; Poikilocytosis Slight; RBC 2.68 m/uL (3.80-5.40); WBC 4.5 k/uL (3.8-10.6)
[2020-02-29 23:05] LABS: Platelet Count 71 k/uL (150-450)
--- NOTE | 2020-03-01 05:18 | PN ---
PROGRESS NOTE DATE OF SERVICE: 02/29/2020 REASON FOR FOLLOWUP: MSSA bacteremia secondary to left diabetic foot infection. INTERVAL HISTORY: The patient is currently afebrile. She is breathing comfortably. Denies having any chest pain or cough. No nausea, no vomiting. No abdominal pain or pain to the left foot. PHYSICAL EXAMINATION: Blood pressure is 127/83 with a pulse of 98, temperature 98.4. She is 94% on room air. General description is a middle-aged female lying in bed in no distress. RESPIRATORY SYSTEM: Unlabored breathing, decreased breath sounds in the bases. No wheeze. HEART: S1, S2. Regular rate and rhythm. ABDOMEN: Soft, no tenderness. Left foot is currently dressed up. No obvious drainage on the dressing. LABS: Hemoglobin 8.5, white count 3.7, BUN of 24, creatinine 1.31. Blood culture with MSSA. Blood culture of 02/27 so far negative. DIAGNOSTIC IMPRESSION AND PLAN: Patient with MSSA bacteremia source is likely like leg diabetic foot infection in this patient who is status post amputation of the left third toe with persistent positive blood culture that will be repeated daily to document clearance of her bacteremia. Continue cefazolin 2 grams q.8 hours. Family at the bedside. Questions were answered. MMODL / IJN: [id number] /
[2020-03-01] MEDS: ACETAMINOPHEN TAB 325 MG TAB PO PRN (05:44)
[2020-03-01 06:13] LABS: Glucose,Whole Blood 193 mg/dL (75-99)
[2020-03-01] MEDS: INSULIN ASPART (NovoLOG) 100 UNIT/ML VIAL SQ SCH ×4 (06:33→21:46)
--- NOTE | 2020-03-01 07:03 | XR ---
EXAMINATION TYPE: XR chest 1V DATE OF EXAM: 03/01/2020 CLINICAL HISTORY: Difficulty breathing progress study. TECHNIQUE: Single AP portable upright view of the chest is obtained. COMPARISON: Chest x-ray from one day earlier and older studies. FINDINGS: Persistent cardiomegaly with atherosclerotic and ectatic thoracic aorta causing right-side d tracheal deviation. Background chronic parenchymal change with improved aeration right lung base. N o new suspicious focal airspace opacity. Old posterolateral right rib fractures noted. IMPRESSION: Chronic parenchymal changes and cardiomegaly with improved aeration right lung base. No n ew infiltrates are seen.
[2020-03-01 07:44] LABS: Free Kappa Lt Chain Qnt, Serum 1.55 mg/dL (0.33-1.94)
[2020-03-01] MEDS: ATORVASTATIN 20 MG TAB PO SCH (08:07)
[2020-03-01] MEDS: CALCIUM CARB-VIT D 500MG-200UN 1 EACH TAB PO SCH (08:07)
[2020-03-01] MEDS: LOPERAMIDE 2 MG CAP PO PRN (08:07)
[2020-03-01] MEDS: FAMOTIDINE 20 MG/2 ML VIAL IV SCH (08:07)
[2020-03-01] MEDS: MAGNESIUM OXIDE 400 MG TAB PO SCH (08:07)
[2020-03-01] MEDS: LINAGLIPTIN 5 MG TABLET PO SCH (08:07)
[2020-03-01] MEDS: ALPRAZolam 1 MG TAB PO SCH ×2 (08:07→21:45)
[2020-03-01] MEDS: predniSONE 20 MG TAB PO SCH (08:08)
[2020-03-01] MEDS: HEPARIN SODIUM,PORCINE 5,000 UNIT/ML 1 ML VIAL SQ SCH ×3 (08:08→21:48)
[2020-03-01 08:39] LABS: Calcium 7.1 mg/dL (8.4-10.2); Potassium 3.9 mmol/L (3.5-5.1)
[2020-03-01 11:51] LABS: Anisocytosis Slight; Basophils % (A) 0 %; Eosinophils # (A) 0.1 k/uL (0-0.7); Eosinophils % (A) 2 %; HCT 25.4 % (34.0-46.0); HGB 7.5 gm/dL (11.4-16.0); Hypochromasia Marked; Lymphocytes # (A) 0.3 k/uL (1.0-4.8); Lymphocytes % (A) 8 %; MCH 31.7 pg (25.0-35.0); MCHC 29.7 g/dL (31.0-37.0); MCV 106.8 fL (80.0-100.0); Macrocytosis Marked; Mean Platelet Volume 8.8; Monocytes # (A) 0.2 k/uL (0-1.0); Monocytes % (A) 5 %; Neutrophils # (A) 3.4 k/uL (1.3-7.7); Neutrophils % (A) 83 %; Poikilocytosis Slight; RBC 2.38 m/uL (3.80-5.40); WBC 4.1 k/uL (3.8-10.6)
[2020-03-01 11:52] LABS: Platelet Count 65 k/uL (150-450)
[2020-03-01 12:01] LABS: Glucose,Whole Blood 208 mg/dL (75-99)
[2020-03-01 12:32] LABS: Albumin 2.2 g/dL (3.5-5.0); Bilirubin, Delta 0.3 mg/dL (0.0-0.2); Bilirubin,Unconjugated 0.2 mg/dL (0.0-1.1); Total Bilirubin 0.5 mg/dL (0.2-1.3); Total Protein 4.6 g/dL (6.3-8.2)
[2020-03-01] MEDS ORDERED: FUROSEMIDE 10 MG/ML 2 ML VIAL IV ONE (13:04)
--- NOTE | 2020-03-01 13:39 | P.PN ---
Subjective Progress Note Date: 03/01/20 This is a 64-year-old female with past medical history of Crohn's disease status post ileostomy, type 2 diabetes, hepatitis C liver disease, osteoarthritis history of kidney stones, chronic iron deficiency anemia, with an issue with stomal bleed on and off, status post upper and lower endoscopy with capsule endoscopy with Dr. Stanton. Was recently discharged from hospital for stomal bleed. She presents today with altered mental status brought by . Patient fell today in the bathroom and was noticed to be slightly confused so she was brought to the emergency room where she was found to have fever of 103. When I saw the patient she was fully awake and oriented, slightly lethargic but she can answer questions appropriately. Vitas looks stable, blood pressure was on the low side 93/54, currently is better at 125/61, patient is saturating 99% on 4 L oxygen via nasal cannula. On admission he had a fever of 103.8. No leukocytosis and hemoglobin 10.0, INR is 2.6 and 1.6. BMP showing elevated creatinine at 1. liver enzymes are slightly up. Negative CT of the brain and CTA of the head and neck. Chest x-ray: No acute process shows some pulmonary vascular congestion. EKG showing sinus tachycardia at [address]-T changes. In emergency room region was started on Zosyn and vancomycin, later on Zosyn was stopped per infectious disease recommendation 02/29/20 Patient lying in bed comfortable, she is fully awake and oriented, no chest pain or dyspnea, tolerating diet well, no abdominal pain. No fever. Left lower extremity cellulitis is significantly improving. On reviewing further information patient states that she has gone endoscopy done for her about 2 years ago and she had only polyps. She was a little bit hypoxic so IV fluids were stopped and we'll check chest x- ray. Tissue culture and blood culture showing presumptive staph, patient is already on antibiotics cefepime, infectious disease on the case currently she is on cefazolin for ID team, also patient has underlying osteomyelitis per ID team, her ESR is elevated at 115 Patient was pancytopenia, Hematology of the case 03/01: Patient has been afebrile, heart rate 67, blood pressure 120/66, pulse ox 98% on 2 L nasal cannula. Repeat blood work reveals hemoglobin of 7.5, platelet count not recorded. BUN 20 and creatinine 1.29. Blood sugars running between 131 and 208. Repeat chest x-ray reveals chronic parenchymal changes and cardiomegaly with improved aeration right lung base. No new infiltrates seen. Patient has been seen and followed by multiple consultants including Dr. Briones who performed a toe amputation on 02/27. Dr. Blanc is managing sepsis and MSSA bacteremia currently on Kefzol with repeat blood cultures positive. Patient has been seen by Dr. Yousif for chronic thrombocytopenia and anemia both in the safe range. We will change IV to KVO and patient will receive 1 dose of IV Lasix. Chest x-ray will be ordered for tomorrow. Objective - Vital Signs Vital signs: Vital Signs Temp 98.3 F 03/01/20 11:42 Pulse 67 03/01/20 11:42 Resp 22 03/01/20 11:42 BP 120/63 03/01/20 11:42 Pulse Ox 98 03/01/20 11:42 Intake & Output 02/29/20 03/01/20 03/01/20 18:59 06:59 18:59 Intake Total 1050 222 Output Total 1830 2500 480 Balance -780 -2500 -258 Weight 121.5 kg Intake: Intake, IV Titration 650 Amount Sodium Chloride 0.9% 1, 600 000 ml @ 130 mls/hr IV . Q7H42M [facility] Rx#:[id number] ceFAZolin 2 gm In Sodium 50 Chloride 0.9% 50 ml @ 100 mls/hr IVPB Q8HR [facility] Rx# :[id number] Oral 400 222 Output: Urine 830 900 Uretheral (Mercado) 150 Stool 1000 1600 480 Other: Voiding Method Indwelling Catheter Indwelling Catheter Indwelling Catheter # Bowel Movements 500 - Exam Review Of Systems: Constitutional: No fever, no chills, no night sweats. No weight change. Report weakness, reports fatigue. EENT: No headache. No blurred vision or double vision, no loss of vision. No loss of Hearing, no ringing in the ears, no dizziness. No nasal drainage or congestion. No epistaxis. No sore throat. Lungs: No shortness of breath, cough, no sputum production. No wheezing. Cardiovascular: No chest pain, no lower extremity edema. No palpitations. No paroxysmal nocturnal dyspnea. No orthopnea. No lightheadedness or dizziness. No syncopal episodes. Abdominal: No abdominal pain. No nausea, vomiting. No diarrhea. No constipation. No bloody or tarry stools. No loss of appetite. Genitourinary: No dysuria, increased frequency, urgency. No urinary retention. Musculoskeletal: No myalgias. No muscle weakness, no gait dysfunction, no frequent falls. No back pain. No neck pain. Integumentary: No wounds, no lesions. No rash or pruritus. No unusual bruising. No change in hair or nails. Neurologic: No aphasia. No facial droop. No change in mentation. No head injury. No headache. No paralysis. No paresthesia. Psychiatric: No depression. No anxiety. No mood swings. Endocrine: No abnormal blood sugars. No weight change. No excessive sweating or thirst. No cold intolerance. Physical Examination Gen: This is a 64-year-old female. Patient appears to be comfortable and in no acute distress. HEENT: Head is atraumatic, normocephalic. Pupils equal, round. Sclerae is anicteric. NECK: Supple. No JVD. No lymphadenopathy. No thyromegaly. LUNGS: Clear to auscultation. No wheezes or rhonchi. No intercostal retractions. HEART: Regular rate and rhythm. First heart sound is depressed, second heart sound is normal, 2/6 systolic ejection murmur at the left sternal border. ABDOMEN: Soft. Bowel sounds are present. No masses. No tenderness. EXTREMITIES: No pedal edema. No calf tenderness. Dorsalis pedis +[address] for left foot. NEUROLOGICAL: Patient is awake, alert and oriented x3. Cranial nerves 2 through 12 are grossly intact. - Labs CBC & Chem 7: 03/01/20 07:20 03/01/20 07:20 Labs: Abnormal Lab Results - Last 24 Hours (Table) 02/28/20 02/29/20 02/29/20 Range/Units 12:32 16:29 19:57 RBC (3.80-5.40) m/uL Hgb (11.4-16.0) gm/dL Hct (34.0-46.0) % MCV (80.0-100.0) fL MCHC (31.0-37.0) g/dL RDW (11.5-15.5) % Plt Count (150-450) k/uL Macrocytosis Chloride (98-107) mmol/L BUN (7-17) mg/dL Creatinine (0.52-1.04) mg/dL Glucose (74-99) mg/dL POC Glucose (mg/dL) 228 H 199 H (75-99) mg/dL Calcium (8.4-10.2) mg/dL Free Lambda LC, Quant 7.21 H (0.57-2.63) mg/dL 02/29/20 03/01/20 03/01/20 Range/Units 22:42 06:12 07:20 RBC 2.68 L (3.80-5.40) m/uL Hgb 8.6 L (11.4-16.0) gm/dL Hct 28.2 L (34.0-46.0) % MCV 105.1 H (80.0-100.0) fL MCHC 30.6 L (31.0-37.0) g/dL RDW 16.0 H (11.5-15.5) % Plt Count 71 L (150-450) k/uL Macrocytosis Chloride 115 H (98-107) mmol/L BUN 20 H (7-17) mg/dL Creatinine 1.29 H (0.52-1.04) mg/dL Glucose 131 H (74-99) mg/dL POC Glucose (mg/dL) 193 H (75-99) mg/dL Calcium 7.1 L (8.4-10.2) mg/dL Free Lambda LC, Quant (0.57-2.63) mg/dL 03/01/20 03/01/20 Range/Units 07:20 12:00 RBC 2.38 L (3.80-5.40) m/uL Hgb 7.5 L (11.4-16.0) gm/dL Hct 25.4 L (34.0-46.0) % MCV 106.8 H (80.0-100.0) fL MCHC 29.7 L (31.0-37.0) g/dL RDW 16.0 H (11.5-15.5) % Plt Count (150-450) k/uL Macrocytosis Marked A Chloride (98-107) mmol/L BUN (7-17) mg/dL Creatinine (0.52-1.04) mg/dL Glucose (74-99) mg/dL POC Glucose (mg/dL) 208 H (75-99) mg/dL Calcium (8.4-10.2) mg/dL Free Lambda LC, Quant (0.57-2.63) mg/dL Microbiology - Last 24 Hours (Table) 02/29/20 06:33 Blood Culture Gram Stain - Preliminary Blood 02/27/20 07:31 Blood Culture Gram Stain - Final Blood Blood Culture - Final Staphylococcus aureus 02/29/20 06:33 Blood Culture - Final Blood 02/28/20 06:32 Blood Culture Gram Stain - Preliminary Blood Blood Culture - Preliminary Presumptive Staph aureus 02/28/20 14:21 Gram Stain - Preliminary Toe - Left Third Tissue Culture - Preliminary Presumptive Staph aureus Coagulase Negative Staph 02/27/20 07:28 Blood Culture Gram Stain - Final Blood Blood Culture - Final Staphylococcus aureus Assessment and Plan Plan: 1. Metabolic encephalopathy secondary to sepsis, resolved. 2. Fall at home. PT and OT consults. 3. Left third toe gangrene with underlying osteomyelitis status post amputation 02/27. Consult with Dr. Briones appreciated. 4. Sepsis and bacteremia secondary to diabetic foot ulcer left third toe status post amputation. Consult with Dr. Blanc appreciated. Patient is currently on Kefzol. Blood cultures repeat are positive. 5. Chronic anemia of chronic illness. 6. Recent history of stomal bleed. No active bleeding. 7. Chronic kidney disease stage III. Avoid nephrotoxic agents. 8. Diabetes mellitus type 2. Continue Tradjenta 5 mg daily, NovoLog scale before meals and at bedtime 9. Hepatitis C in remission, stable. 10. Crohn's disease status post ileostomy in 2007 on chronic prednisone. 11. Generalized anxiety disorder. Continue Xanax 12. Hypertension hypertensive cardiovascular disease. Continue lisinopril 2.5 mg daily. 13. GI prophylaxis. Pepcid. 14. DVT prophylaxis. Knee-high CRISTHIAN hose. Discharge plan: Home Impression and plan of care have been directed as dictated by the signing physician. Glenis Hernandez nurse practitioner acting as scribe for signing physician.
[2020-03-01] MEDS: SODIUM CHLORIDE 0.9% 1,000 ML IV SCH (14:34)
--- NOTE | 2020-03-01 16:34 | PN ---
PROGRESS NOTE A 64-year-old female, she had a left foot 3rd toe amputation. Patient is on IV antibiotic. Today we have changed the dressing. Incision site is healing. No discharge or redness noted. PLAN: Continue with IV antibiotic and the patient discharged, have follow up in office this Saturday. Recommend nonweightbearing, change the dressing every 48 hours. MMODL / IJN: [id number] /
[2020-03-01 16:55] LABS: Glucose,Whole Blood 207 mg/dL (75-99)
[2020-03-01 20:26] LABS: Glucose,Whole Blood 211 mg/dL (75-99)
--- NOTE | 2020-03-01 21:12 | P.PN ---
Subjective Progress Note Date: 03/01/20 Principal diagnosis: Sepsis Afebrile so far today, did spike 102F yesterday early am and 101.7 a little later. Repeat blood cultures pending. Dr. Blanc Following. CBC was repeated for today, please monitor daily. Iron saturation is decreased although with positive blood cultures parental iron is contraindicated until resolution of infection. Objective - Vital Signs Vital signs: Vital Signs Temp 98.6 F 03/01/20 08:00 Pulse 75 03/01/20 08:00 Resp 18 03/01/20 08:00 BP 107/55 03/01/20 08:00 Pulse Ox 97 03/01/20 08:00 Intake & Output 02/29/20 03/01/20 03/01/20 18:59 06:59 18:59 Intake Total 1050 Output Total 1830 2500 Balance -780 -2500 Weight 121.5 kg Intake: Intake, IV Titration 650 Amount Sodium Chloride 0.9% 1, 600 000 ml @ 130 mls/hr IV . [id number] DARIA Rx#:[id number] ceFAZolin 2 gm In Sodium 50 Chloride 0.9% 50 ml @ 100 mls/hr IVPB Q8HR DARIA Rx# :[id number] Oral 400 Output: Urine 830 900 Uretheral (Mercado) 150 Stool 1000 1600 Other: Voiding Method Indwelling Catheter Indwelling Catheter Indwelling Catheter # Bowel Movements 500 - Exam Constitutional General appearance: mild distress (Increased work of respiration) - EENT Eyes: EOMI, PERRLA ENT: hearing grossly normal, normal oropharynx - Neck Neck: no lymphadenopathy - Respiratory Respiratory: bilateral: CTA - Cardiovascular Rhythm: regular Heart sounds: normal: S1, S2 - Gastrointestinal General gastrointestinal: normal bowel sounds, soft - Integumentary Blackish-bluish discoloration of left third toe with scabbed ulcer - Neurologic Neurologic: CNII-XII intact - Musculoskeletal Musculoskeletal: generalized weakness, strength equal bilaterally - Psychiatric Psychiatric: A&O x's 3, appropriate affect - Labs CBC & Chem 7: 03/01/20 07:20 03/01/20 07:20 Labs: Abnormal Lab Results - Last 24 Hours (Table) 02/28/20 02/29/20 02/29/20 Range/Units 12:32 11:57 16:29 RBC (3.80-5.40) m/uL Hgb (11.4-16.0) gm/dL Hct (34.0-46.0) % MCV (80.0-100.0) fL MCHC (31.0-37.0) g/dL RDW (11.5-15.5) % Plt Count (150-450) k/uL Chloride (98-107) mmol/L BUN (7-17) mg/dL Creatinine (0.52-1.04) mg/dL Glucose (74-99) mg/dL POC Glucose (mg/dL) 181 H 228 H (75-99) mg/dL Calcium (8.4-10.2) mg/dL Free Lambda LC, Quant 7.21 H (0.57-2.63) mg/dL 02/29/20 02/29/20 03/01/20 Range/Units 19:57 22:42 06:12 RBC 2.68 L (3.80-5.40) m/uL Hgb 8.6 L (11.4-16.0) gm/dL Hct 28.2 L (34.0-46.0) % MCV 105.1 H (80.0-100.0) fL MCHC 30.6 L (31.0-37.0) g/dL RDW 16.0 H (11.5-15.5) % Plt Count 71 L (150-450) k/uL Chloride (98-107) mmol/L BUN (7-17) mg/dL Creatinine (0.52-1.04) mg/dL Glucose (74-99) mg/dL POC Glucose (mg/dL) 199 H 193 H (75-99) mg/dL Calcium (8.4-10.2) mg/dL Free Lambda LC, Quant (0.57-2.63) mg/dL 03/01/20 Range/Units 07:20 RBC (3.80-5.40) m/uL Hgb (11.4-16.0) gm/dL Hct (34.0-46.0) % MCV (80.0-100.0) fL MCHC (31.0-37.0) g/dL RDW (11.5-15.5) % Plt Count (150-450) k/uL Chloride 115 H (98-107) mmol/L BUN 20 H (7-17) mg/dL Creatinine 1.29 H (0.52-1.04) mg/dL Glucose 131 H (74-99) mg/dL POC Glucose (mg/dL) (75-99) mg/dL Calcium 7.1 L (8.4-10.2) mg/dL Free Lambda LC, Quant (0.57-2.63) mg/dL Microbiology - Last 24 Hours (Table) 02/27/20 07:31 Blood Culture Gram Stain - Final Blood Blood Culture - Final Staphylococcus aureus 02/29/20 06:33 Blood Culture - Final Blood 02/28/20 06:32 Blood Culture Gram Stain - Preliminary Blood Blood Culture - Preliminary Presumptive Staph aureus 02/28/20 14:21 Gram Stain - Preliminary Toe - Left Third Tissue Culture - Preliminary Presumptive Staph aureus Coagulase Negative Staph 02/27/20 07:28 Blood Culture Gram Stain - Final Blood Blood Culture - Final Staphylococcus aureus Assessment and Plan Plan: Thrombocytopenia - Repeat CBC today platelet count 65K, no intervention needed - [place] to be multifactorial: * Acute on chronic secondary to chronic bone marrow suppression * Chronic liver disease plus or minus splenic sequestran * Increased consumption with Chronic Inflammation from known crohns disease. The above included with acute illness evidence of infection (bacteremia and left gangrenous toe) - Platelet counts are in a safe range with no acute intervention required. Le vels above 50,000 is considered safe for most types of surgery, anticoagulation, and antiplatelet therapy. - Review of her repeat labs for pancytopenia were completed and evidence of Iron deficiency although no new deficiency - Monitor platelet counts and transfuse supportively if needed. Expectation is for counts will return back to their baseline once acute condition resolves. Macrocytic Anemia - No evidence of B12 deficiency, awaiting for folate to result - Lambda chains increased mild, likely due to underlying Chronic inflammation as ratio was not diagnostic, awaiting protein electrophoresis and immunofixation to result. - Iron deficiency is evident, again likely chronic and an extent expected with underlying Crohns, although at the moment with positive bacteremia and sepsis parental iron is not recommended. Will consider after resolution of infection. - Discontinue H2, and add PPI for better protection of GI with evidence of iron deficiency - PO iron BID, absorption with underlying crohns is not relied on although at this time resonable with active bacteremia - Hemoglobin today is 7.5, drop from 8.6. Will need to continue monitoring CBC daily please Left third toe gangrene with underlying osteomyelitis status post amputation 02/27. Consult with Dr. Briones appreciated. Sepsis and bacteremia secondary to diabetic foot ulcer left third toe status post amputation. - Dr. Blanc ID is following - Repear bc pending - abx per ID - T-max 24 hours 101.7 Chronic kidney disease stage III. - Avoid nephrotoxic agents. - Monitoring Daily Diabetes mellitus type 2. - Per primary Hepatitis C - Treated previous - stable.
[2020-03-01] MEDS: SERTRALINE 100 MG TAB PO SCH (21:45)
[2020-03-01] MEDS: MIRTAZAPINE 15 MG TAB PO SCH (21:46)
[2020-03-01] MEDS: PANTOPRAZOLE 40 MG TABLET PO SCH (21:46)
[2020-03-01] MEDS: FERROUS SULFATE 325 MG TAB PO SCH (21:46)
--- NOTE | 2020-03-01 22:41 | PN ---
PROGRESS NOTE DATE OF SERVICE: 03/01/2020 REASON FOR FOLLOWUP: Left third toe diabetic foot infection with MSSA bacteremia. INTERVAL HISTORY: The patient is currently afebrile. The patient is breathing comfortably. Denies having any chest pain, shortness of breath or cough. No nausea or vomiting. No abdominal pain or pain to the left foot. PHYSICAL EXAMINATION: Blood pressure 129/65 with a pulse of 80, temperature 98.2. She is 100% on room air. General description is a middle-aged female lying in bed in no distress. RESPIRATORY SYSTEM: Unlabored breathing. Clear to auscultation anteriorly. HEART: S1, S2. Regular rate and rhythm. ABDOMEN: Soft. No tenderness. Left foot third toe amputation site: Wound bed looks clean with no redness or any drainage. LABS: Hemoglobin 7.5, white count 4.9, BUN of 20, creatinine 1.29. Blood cultures from 03/01/2020 are positive as well. DIAGNOSTIC IMPRESSION AND PLAN: Patient with left third toe diabetic foot infection, status post amputation. Culture with MSSA. Patient is covered with cefazolin. However, the patient did have persistent bacteremia with concern for possible deep infection versus endovascular source. We will obtain a CT of the left foot to make sure there is no evidence of deep infection. An echocardiogram will be obtained as well to make sure there is no evidence of any valvular abnormality that continue with the cefazolin and we will monitor her clinical course closely. MMODL / IJN: [id number] /
[2020-03-02 06:14] LABS: Glucose,Whole Blood 154 mg/dL (75-99)
[2020-03-02] MEDS: INSULIN ASPART (NovoLOG) 100 UNIT/ML VIAL SQ SCH ×4 (06:25→20:30)
[2020-03-02] MEDS: PANTOPRAZOLE 40 MG TABLET PO SCH ×2 (06:26→17:48)
[2020-03-02 07:04] LABS: Anisocytosis Slight; Basophils % (A) 0 %; Eosinophils # (A) 0.1 k/uL (0-0.7); Eosinophils % (A) 1 %; HCT 30.2 % (34.0-46.0); Hypochromasia Marked; Lymphocytes # (A) 0.7 k/uL (1.0-4.8); Lymphocytes % (A) 15 %; MCH 31.9 pg (25.0-35.0); MCHC 30.5 g/dL (31.0-37.0); MCV 104.5 fL (80.0-100.0); Macrocytosis Moderate; Mean Platelet Volume 8.3; Monocytes # (A) 0.2 k/uL (0-1.0); Monocytes % (A) 5 %; Neutrophils # (A) 3.8 k/uL (1.3-7.7); Neutrophils % (A) 76 %; Poikilocytosis Slight; RBC 2.89 m/uL (3.80-5.40); RDW 16.3 % (11.5-15.5); WBC 4.9 k/uL (3.8-10.6)
[2020-03-02 07:07] LABS: HGB 9.2 gm/dL (11.4-16.0); Platelet Count 92 k/uL (150-450)
[2020-03-02 07:09] LABS: Albumin 2.7 g/dL (3.5-5.0); Calcium 7.9 mg/dL (8.4-10.2); Total Bilirubin 0.4 mg/dL (0.2-1.3); Total Protein 5.6 g/dL (6.3-8.2)
--- NOTE | 2020-03-02 07:35 | XR ---
EXAMINATION TYPE: XR chest 2V DATE OF EXAM: 03/02/2020 COMPARISON: 03/01/2020 HISTORY: 64 year-old female shortness of breath TECHNIQUE: AP and lateral views FINDINGS: Heart mildly enlarged. Diffuse interstitial density. Bands of atelectasis in the lower lungs. Small b ilateral pleural effusions. Multiple right-sided rib fracture deformities as seen previously. IMPRESSION: Mild cardiomegaly. Small bilateral pleural effusions with adjacent atelectasis and/or consolidation; correlate for mild CHF as an etiology. Large bands of atelectasis in the lower lungs.
[2020-03-02 07:37] LABS: Potassium 3.7 mmol/L (3.5-5.1)
[2020-03-02] MEDS: predniSONE 20 MG TAB PO SCH (08:41)
[2020-03-02] MEDS: ALPRAZolam 1 MG TAB PO SCH ×2 (08:41→20:31)
[2020-03-02] MEDS: LINAGLIPTIN 5 MG TABLET PO SCH (08:41)
[2020-03-02] MEDS: HEPARIN SODIUM,PORCINE 5,000 UNIT/ML 1 ML VIAL SQ SCH ×2 (08:41→20:22)
[2020-03-02] MEDS: CALCIUM CARB-VIT D 500MG-200UN 1 EACH TAB PO SCH (08:41)
[2020-03-02] MEDS: MAGNESIUM OXIDE 400 MG TAB PO SCH (08:41)
[2020-03-02] MEDS: FERROUS SULFATE 325 MG TAB PO SCH ×2 (08:42→20:32)
[2020-03-02] MEDS: ATORVASTATIN 20 MG TAB PO SCH (08:42)
[2020-03-02] MEDS ORDERED: FAMOTIDINE 20 MG TAB PO SCH (09:00)
--- NOTE | 2020-03-02 09:06 | CT ---
EXAMINATION TYPE: CT foot LT wo con DATE OF EXAM: 03/02/2020 COMPARISON: None HISTORY: Bacteremia, left diabetic foot infection abscess CT DLP: 144.8 mGycm Automated exposure control for dose reduction was used. FINDINGS: Diffuse soft tissue edema is seen. There is extensive arthropathy. Appears to be destructive changes at the base of the proximal phalanx of the third digit suspicious for osteomyelitis. Vascular calcifi cations are seen and there is chronic deformity of the third metatarsal. Diffuse skin thickening note d. Chronic deformity of the proximal phalanx second digit suggestive fracture IMPRESSION: 1. Diffuse soft tissue edema. Correlate for cellulitis. There appears to be destructive change involv ing the phalanx of the third digit highly suggestive of osteomyelitis. 2. There is a fracture involving the intra-articular surface and base of the proximal phalanx second digit
[2020-03-02] MEDS ORDERED: FUROSEMIDE 10 MG/ML 2 ML VIAL IV ONE (10:39)
[2020-03-02] MEDS ORDERED: IPRATROPIUM-ALBUTEROL 3 ML NEB INHALATION PRN (10:39)
[2020-03-02] MEDS: IPRATROPIUM-ALBUTEROL 3 ML NEB INHALATION SCH ×2 (11:30→20:08)
[2020-03-02 11:56] LABS: Glucose,Whole Blood 112 mg/dL (75-99)
--- NOTE | 2020-03-02 12:38 | P.PN ---
Subjective Progress Note Date: 03/02/20 This is a 64-year-old female with past medical history of Crohn's disease status post ileostomy, type 2 diabetes, hepatitis C liver disease, osteoarthritis history of kidney stones, chronic iron deficiency anemia, with an issue with stomal bleed on and off, status post upper and lower endoscopy with capsule endoscopy with Dr. Stanton. Was recently discharged from hospital for stomal bleed. She presents today with altered mental status brought by . Patient fell today in the bathroom and was noticed to be slightly confused so she was brought to the emergency room where she was found to have fever of 103. When I saw the patient she was fully awake and oriented, slightly lethargic but she can answer questions appropriately. Vitas looks stable, blood pressure was on the low side 93/54, currently is better at 125/61, patient is saturating 99% on 4 L oxygen via nasal cannula. On admission he had a fever of 103.8. No leukocytosis and hemoglobin 10.0, INR is 2.6 and 1.6. BMP showing elevated creatinine at 1. liver enzymes are slightly up. Negative CT of the brain and CTA of the head and neck. Chest x-ray: No acute process shows some pulmonary vascular congestion. EKG showing sinus tachycardia at [address]-T changes. In emergency room region was started on Zosyn and vancomycin, later on Zosyn was stopped per infectious disease recommendation 02/29/20 Patient lying in bed comfortable, she is fully awake and oriented, no chest pain or dyspnea, tolerating diet well, no abdominal pain. No fever. Left lower extremity cellulitis is significantly improving. On reviewing further information patient states that she has gone endoscopy done for her about 2 years ago and she had only polyps. She was a little bit hypoxic so IV fluids were stopped and we'll check chest x- ray. Tissue culture and blood culture showing presumptive staph, patient is already on antibiotics cefepime, infectious disease on the case currently she is on cefazolin for ID team, also patient has underlying osteomyelitis per ID team, her ESR is elevated at 115 Patient was pancytopenia, Hematology of the case 03/01: Patient has been febrile, heart rate 67, blood pressure 120/66, pulse ox 98% on 2 L nasal cannula. Repeat blood work reveals hemoglobin of 7.5, platelet count not recorded. BUN 20 and creatinine 1.29. Blood sugars running between 131 and 208. Repeat chest x-ray reveals chronic parenchymal changes and cardiomegaly with improved aeration right lung base. No new infiltrates seen. Patient has been seen and followed by multiple consultants including Dr. Briones who performed a toe amputation on 02/27. Dr. Blanc is managing sepsis and MSSA bacteremia currently on Kefzol with repeat blood cultures positive. Patient has been seen by Dr. Yousif for chronic thrombocytopenia and anemia both in the safe range. We will change IV to KVO and patient will receive 1 dose of IV Lasix. Chest x-ray will be ordered for tomorrow. 03/02: Patient has been afebrile since yesterday at 8 AM. Heart rate 80, blood pressure 119/62, pulse ox 97% on room air. Repeat blood work reveals hemoglobin 9.2, platelet count 92. BUN 25 and creatinine 1.31. Blood sugars running betwe en 112 and 154. AST 38. Blood culture obtained on March 01 is positive for gram-positive cocci in clusters. CAT scan of the foot reveals diffuse soft tissue edema. Correlate for cellulitis. There appears to be destructive change involving the phalanx of the third digit highly suggestive of osteomyelitis. There is a fracture involving the intra-articular surface and base of proximal phalanx second digit. Chest x-ray reveals mild cardiomegaly. Small bilateral pleural effusions with adjacent atelectasis and/or consolidation. Correlate for mild heart failure. Large bands of atelectasis and lower lungs. Lasix 20 mg IV push ordered 1. DuoNeb treatments added as well as incentive spirometry. Echocardiogram has been ordered to rule out valvular abnormality, vegetation. Patient ate only 25% of her breakfast meals have been 75-100%. The patient is having stools and ileostomy consistent with her normal stools. pvc monitor has been a sinus rhythm. Objective - Vital Signs Vital signs: Vital Signs Temp 99.1 F 03/02/20 04:00 Pulse 80 03/02/20 04:00 Resp 16 03/02/20 04:00 BP 119/62 03/02/20 04:00 Pulse Ox 97 03/02/20 04:00 Intake & Output 03/01/20 03/02/20 03/02/20 18:59 06:59 18:59 Intake Total 682 Output Total 880 1250 75 Balance -198 -1250 -75 Weight 79.2 kg Intake: Oral 682 Output: Urine 400 650 75 Uretheral (Mercado) 75 Stool 480 600 Other: Voiding Method Indwelling Catheter Indwelling Catheter - Exam Review Of Systems: Constitutional: No fever, no chills, no night sweats. No weight change. Report weakness, reports fatigue. EENT: No headache. No blurred vision or double vision, no loss of vision. No loss of Hearing, no ringing in the ears, no dizziness. No nasal drainage or congestion. No epistaxis. No sore throat. Lungs: Reports shortness of breath, cough, no sputum production. No wheezing. Cardiovascular: No chest pain, no lower extremity edema. No palpitations. No paroxysmal nocturnal dyspnea. No orthopnea. No lightheadedness or dizziness. No syncopal episodes. Abdominal: No abdominal pain. No nausea, vomiting. No diarrhea. No constipation. No bloody or tarry stools. No loss of appetite. Genitourinary: No dysuria, increased frequency, urgency. No urinary retention. Musculoskeletal: No myalgias. No muscle weakness, no gait dysfunction, no frequent falls. No back pain. No neck pain. Integumentary: Left foot wounds, no lesions. No rash or pruritus. No unusual bruising. No change in hair or nails. Neurologic: No aphasia. No facial droop. No change in mentation. No head injury. No headache. No paralysis. No paresthesia. Psychiatric: No depression. No anxiety. No mood swings. Endocrine: No abnormal blood sugars. No weight change. No excessive sweating or thirst. No cold intolerance. Physical Examination Gen: This is a 64-year-old female. Patient appears to be comfortable and in no acute distress. HEENT: Head is atraumatic, normocephalic. Pupils equal, round. Sclerae is anicteric. NECK: Supple. No JVD. No lymphadenopathy. No thyromegaly. LUNGS: Clear to auscultation. No wheezes or rhonchi. No intercostal retractions. HEART: Regular rate and rhythm. First heart sound is depressed, second heart sound is normal, 2/6 systolic ejection murmur at the left sternal border. ABDOMEN: Soft. Bowel sounds are present. No masses. No tenderness. Mercado cat heter in place. Patient has ostomy with liquid stool output. EXTREMITIES: No pedal edema. No calf tenderness. Dorsalis pedis +[address] for left foot. NEUROLOGICAL: Patient is awake, alert and oriented x3. Cranial nerves 2 through 12 are grossly intact. - Labs CBC & Chem 7: 03/02/20 06:15 03/02/20 06:15 Labs: Abnormal Lab Results - Last 24 Hours (Table) 03/01/20 03/01/20 03/01/20 Range/Units 07:20 07:20 12:00 RBC 2.38 L (3.80-5.40) m/uL Hgb 7.5 L (11.4-16.0) gm/dL Hct 25.4 L (34.0-46.0) % MCV 106.8 H (80.0-100.0) fL MCHC 29.7 L (31.0-37.0) g/dL RDW 16.0 H (11.5-15.5) % Plt Count 65 L (150-450) k/uL Lymphocytes # 0.3 L (1.0-4.8) k/uL Macrocytosis Marked A Chloride (98-107) mmol/L BUN (7-17) mg/dL Creatinine (0.52-1.04) mg/dL Glucose (74-99) mg/dL POC Glucose (mg/dL) 208 H (75-99) mg/dL Calcium (8.4-10.2) mg/dL Delta Bilirubin 0.3 H (0.0-0.2) mg/dL AST 40 H (14-36) U/L Alkaline Phosphatase 28 L (38-126) U/L Lactate Dehydrogenase 942 H (313-618) U/L Total Protein 4.6 L (6.3-8.2) g/dL Albumin 2.2 L (3.5-5.0) g/dL Vitamin B12 1214.0 H (200.0-944.0) pg/mL 03/01/20 03/01/20 03/02/20 Range/Units 16:53 20:25 06:10 RBC (3.80-5.40) m/uL Hgb (11.4-16.0) gm/dL Hct (34.0-46.0) % MCV (80.0-100.0) fL MCHC (31.0-37.0) g/dL RDW (11.5-15.5) % Plt Count (150-450) k/uL Lymphocytes # (1.0-4.8) k/uL Macrocytosis Chloride (98-107) mmol/L BUN (7-17) mg/dL Creatinine (0.52-1.04) mg/dL Glucose (74-99) mg/dL POC Glucose (mg/dL) 207 H 211 H 154 H (75-99) mg/dL Calcium (8.4-10.2) mg/dL Delta Bilirubin (0.0-0.2) mg/dL AST (14-36) U/L Alkaline Phosphatase (38-126) U/L Lactate Dehydrogenase (313-618) U/L Total Protein (6.3-8.2) g/dL Albumin (3.5-5.0) g/dL Vitamin B12 (200.0-944.0) pg/mL 03/02/20 03/02/20 Range/Units 06:15 06:15 RBC 2.89 L (3.80-5.40) m/uL Hgb 9.2 L D (11.4-16.0) gm/dL Hct 30.2 L (34.0-46.0) % MCV 104.5 H (80.0-100.0) fL MCHC 30.5 L (31.0-37.0) g/dL RDW 16.3 H (11.5-15.5) % Plt Count 92 L (150-450) k/uL Lymphocytes # 0.7 L (1.0-4.8) k/uL Macrocytosis Chloride 111 H (98-107) mmol/L BUN 25 H (7-17) mg/dL Creatinine 1.31 H (0.52-1.04) mg/dL Glucose 121 H (74-99) mg/dL POC Glucose (mg/dL) (75-99) mg/dL Calcium 7.9 L (8.4-10.2) mg/dL Delta Bilirubin (0.0-0.2) mg/dL AST 38 H (14-36) U/L Alkaline Phosphatase (38-126) U/L Lactate Dehydrogenase (313-618) U/L Total Protein 5.6 L (6.3-8.2) g/dL Albumin 2.7 L (3.5-5.0) g/dL Vitamin B12 (200.0-944.0) pg/mL Microbiology - Last 24 Hours (Table) 03/01/20 07:20 Blood Culture Gram Stain - Preliminary Blood 03/01/20 07:20 Blood Culture - Final Blood 02/28/20 06:32 Blood Culture Gram Stain - Final Blood Blood Culture - Final Staphylococcus aureus 02/29/20 06:33 Blood Culture Gram Stain - Preliminary Blood Blood Culture - Preliminary Presumptive Staph aureus 03/01/20 00:04 Blood Culture Gram Stain - Preliminary Blood 03/01/20 00:04 Blood Culture - Final Blood 02/28/20 14:21 Anaerobic Culture - Preliminary Toe - Left Third 02/28/20 14:21 Gram Stain - Final Toe - Left Third Tissue Culture - Final Staphylococcus aureus Coagulase Negative Staph 02/27/20 07:31 Blood Culture Gram Stain - Final Blood Blood Culture - Final Staphylococcus aureus Assessment and Plan Plan: 1. Metabolic encephalopathy secondary to sepsis, resolved. 2. Fall at home. PT and OT consults. 3. Left third toe gangrene with underlying osteomyelitis status post amputation 02/27. Consult with Dr. Briones appreciated. 4. Sepsis and bacteremia secondary to diabetic foot ulcer left third toe status post amputation. Consult with Dr. Blanc appreciated. Patient is currently on Kefzol. Blood cultures repeat are positive. CAT scan of the foot as above. Echocardiogram ordered to rule out vegetation. 5. Chronic anemia of chronic illness. 6. Recent history of stomal bleed. No active bleeding. 7. Chronic kidney disease stage III. Avoid nephrotoxic agents. 8. Diabetes mellitus type 2. Continue Tradjenta 5 mg daily, NovoLog scale before meals and at bedtime 9. Hepatitis C in remission, stable. 10. Crohn's disease status post ileostomy in 2007 on chronic prednisone. 11. Generalized anxiety disorder. Continue Xanax 12. Hypertension hypertensive cardiovascular disease. Continue lisinopril 2.5 mg daily. 13. GI prophylaxis. Pepcid. 14. DVT prophylaxis. Knee-high CRISTHIAN hose. 15. Fluid overload secondary to IV fluids. Lasix 20 g iv push 1, iv fluids changed to kvo. Duoneb treatments and incentive spirometry. Discharge plan: Home Impression and plan of care have been directed as dictated by the signing p mari. Glenis Hernandez nurse practitioner acting as scribe for signing physician.
--- NOTE | 2020-03-02 13:01 | ECHOF ---
Referral Reason:Bacteremia MEASUREMENTS -------- HEIGHT: 167.6 cm WEIGHT: 78.9 kg BP: 119/62 RVIDd: 2.8 cm (< 3.3) IVSd: 1.2 cm (0.6 - 1.1) LVIDd: 4.1 cm (3.9 - 5.3) LVPWd: 1.3 cm (0.6 - 1.1) IVSs: 1.7 cm LVIDs: 2.0 cm LVPWs: 1.5 cm LAESV Index (A-L): 21.71 ml/m Ao Diam: 2.8 cm (2.0 - 3.7) AV Cusp: 1.5 cm (1.5 - 2.6) LA Diam: 2.7 cm (2.7 - 3.8) MV EXCURSION: 11.106 mm (> 18.000) MV EF SLOPE: 51 mm/s (70 - 150) EPSS: 2.0 cm MV E Rishi: 1.38 m/s MV DecT: 213 ms MV A Rishi: 1.39 m/s MV E/A Ratio: 1.00 RAP: 5.00 mmHg RVSP: 36.55 mmHg FINDINGS -------- This was a technically adequate study. The left ventricular size is normal. There is mild concentric left ventricular hypertrophy. Overa ll left ventricular systolic function is normal with, an EF between 55 - 60 %. Normal LAP Grade 1 D iastolic Dysfunction. The right ventricle is normal in size. The left atrial size is normal. Normal LA size by volume 22+/-6 ml/m2. The right atrial size is normal. The aortic valve is trileaflet and appears structurally normal. The mitral valve is normal. The mitral valve leaflets are mildly thickened. Mild mitral annular c alcification present. Mild mitral regurgitation is present. The tricuspid valve appears structurally normal. Mild tricuspid regurgitation present. There is b orderline pulmonary hypertension. The right ventricular systolic pressure, as measured by Doppler, is 36.55mmHg. There is no pulmonic regurgitation present. The aortic root size is normal. IVC Not well visulized. There is no pericardial effusion. CONCLUSIONS -------- 1. The left ventricular size is normal. 2. There is mild concentric left ventricular hypertrophy. 3. Overall left ventricular systolic function is normal with, an EF between 55 - 60 %. 4. Normal LAP Grade 1 Diastolic Dysfunction. 5. The mitral valve leaflets are mildly thickened. 6. Mild mitral annular calcification present. 7. Mild mitral regurgitation is present. 8. Mild tricuspid regurgitation present. 9. There is borderline pulmonary hypertension. 10. The right ventricular systolic pressure, as measured by Doppler, is 36.55mmHg. TRUCK CLEANER: Sapphire Huitron RDCS
[2020-03-02 14:26] LABS: Immunoglobulin M <16.9 mg/dL (40.0-280.0)
--- NOTE | 2020-03-02 15:26 | PN ---
PROGRESS NOTE DATE OF SERVICE: 03/02/2020 REASON FOR FOLLOWUP: Left diabetic foot infection with MSSA bacteremia. INTERVAL HISTORY: The patient is currently afebrile. The patient is breathing comfortably. The patient denies having any chest pain or shortness of breath or cough. No nausea, no vomiting. No abdominal pain or pain to the left foot. PHYSICAL EXAMINATION: Blood pressure is 132/63 with a pulse of 91, temperature 99.8. She is 98% on 2 L nasal cannula. General description is a middle-aged female lying in bed in no distress. RESPIRATORY SYSTEM: Unlabored breathing. Clear to auscultation anteriorly. HEART: S1, S2. Regular rate and rhythm. ABDOMEN: Soft. No tenderness. Left foot are currently dressed up. No obvious drainage on the dressing. LABS: Hemoglobin 9.2, white count 4.9, BUN of 25, creatinine 1.31. Blood culture from yesterday is positive. DIAGNOSTIC IMPRESSION AND PLAN: Patient with left third toe diabetic foot infection methicillin-susceptible Staphylococcus aeruginosa, status post amputation of the toe with persistent MSSA bacteremia. CT was negative for any abscess. Will wait for the echocardiogram. If persistent bacteremia, may recommend doing a XIAO to make sure no evidence of any pericarditis. Switched over to nafcillin; see if there is any clinical response or clearance of bacteremia. She will need IV antibiotic on discharge, which is currently Zosyn getting arranged. Continue supportive care. MMODL / IJN: [id number] /
[2020-03-02 16:46] LABS: Glucose,Whole Blood 210 mg/dL (75-99)
--- NOTE | 2020-03-02 17:03 | CDI ---
Documentation Clarification Form Date: 03/02/2020 CDS: Karla Serrato RN, CCDS Admit Date: 02/27/2020 Patient Name: Etta Mendoza [id number] ATTENTION: The Clinical Documentation Specialists (CDI) and [facility] Coding Staff appreciate your assistance in clarifying documentation. Please respond to the clarification below the line at the bottom and electronically sign. The CDI & [facility] Coding staff will review the response and follow-up if needed. Please note: Queries are made part of the Legal Health Record. If you have any questions, please contact the author of this message via ITS. Antonio Estrada MD She was a little hypoxic so IV fluids were stopped well check chest x-ray is documented in the Internal Medicine Progress note 02/28 History/Risk Factors:64-year-old female presented to the ED via EMS for confusion and a fever of 103. Medical History: DM, HTN and CKD III Clinical Indicators: VSS: 02/26 07:02 -B/P: 137/67; HR: 113; Temp: 103.8; RR: 20; SpO2 77% Room Air; 02/26 07:50 RR: 24; SpO2 100% 5L Nasal Cannula; 02/26 15:49 RR: 20; Spo2 97% 4L Nasal Cannula Lung/Breathing assessment: 02/26 ED: Respiratory distress, Tachypnea and rhonchi 02/27 H&P: Clear to auscultation; 03/01 Internal Medicine PN: Clear to auscultation 02/27 Dr. Briones: Chest few crackles at the lung bases first and second sound normal Treatment: Breathing Tx: Duoneb Scheduled and PRN, Oxygen via Nasal Cannula 2L to 5L In your professional opinion, can you please clarify if these findings signify one of the following conditions? Acute Respiratory Failure Acute Respiratory Failure Ruled Out Other Diagnosis, please specify Unable to determine Specificity: If known, further specify (if known): With hypercapnia? (pCO2 >50 and pH <7.35) With hypoxia? (pO2 <60 mm Hg or SpO2 <91% on room air) Query answered in Internal Medicine Progress note : acute hypoxic resp failure poa with initial pulse ox of 77% breathing status is currently stable. (Last Query Form Revision: February 2019) MTDD
[2020-03-02] MEDS: NAFCILLIN 2 GM in DEXTROSE 5% IN WATER 100 ML IVPB SCH ×6 (18:05→22:57)
[2020-03-02] MEDS: SODIUM CHLORIDE 0.9% 1,000 ML IV SCH (18:06)
[2020-03-02 20:23] LABS: Glucose,Whole Blood 250 mg/dL (75-99)
[2020-03-02] MEDS: SERTRALINE 100 MG TAB PO SCH (20:32)
[2020-03-02] MEDS: MIRTAZAPINE 15 MG TAB PO SCH (20:32)
[2020-03-03] MEDS: NAFCILLIN 2 GM in DEXTROSE 5% IN WATER 100 ML IVPB SCH ×12 (02:44→23:23)
[2020-03-03 05:58] LABS: Glucose,Whole Blood 112 mg/dL (75-99)
[2020-03-03] MEDS: INSULIN ASPART (NovoLOG) 100 UNIT/ML VIAL SQ SCH ×4 (05:58→21:35)
[2020-03-03] MEDS: PANTOPRAZOLE 40 MG TABLET PO SCH ×2 (05:58→18:12)
[2020-03-03] MEDS: IPRATROPIUM-ALBUTEROL 3 ML NEB INHALATION SCH ×3 (07:42→20:32)
[2020-03-03] MEDS: predniSONE 20 MG TAB PO SCH (08:00)
[2020-03-03] MEDS: ALPRAZolam 1 MG TAB PO SCH ×2 (08:00→19:51)
[2020-03-03] MEDS: ATORVASTATIN 20 MG TAB PO SCH (08:00)
[2020-03-03] MEDS: CALCIUM CARB-VIT D 500MG-200UN 1 EACH TAB PO SCH (08:00)
[2020-03-03] MEDS: MAGNESIUM OXIDE 400 MG TAB PO SCH (08:00)
[2020-03-03] MEDS: LINAGLIPTIN 5 MG TABLET PO SCH (08:01)
[2020-03-03] MEDS: HEPARIN SODIUM,PORCINE 5,000 UNIT/ML 1 ML VIAL SQ SCH ×2 (08:01→19:40)
[2020-03-03] MEDS: FERROUS SULFATE 325 MG TAB PO SCH ×2 (08:01→19:51)
--- NOTE | 2020-03-03 11:16 | P.PN ---
Subjective Progress Note Date: 03/03/20 This is a 64-year-old female with past medical history of Crohn's disease status post ileostomy, type 2 diabetes, hepatitis C liver disease, osteoarthritis history of kidney stones, chronic iron deficiency anemia, with an issue with stomal bleed on and off, status post upper and lower endoscopy with capsule endoscopy with Dr. Stanton. Was recently discharged from hospital for stomal bleed. She presents today with altered mental status brought by . Patient fell today in the bathroom and was noticed to be slightly confused so she was brought to the emergency room where she was found to have fever of 103. When I saw the patient she was fully awake and oriented, slightly lethargic but she can answer questions appropriately. Vitas looks stable, blood pressure was on the low side 93/54, currently is better at 125/61, patient is saturating 99% on 4 L oxygen via nasal cannula. On admission he had a fever of 103.8. No leukocytosis and hemoglobin 10.0, INR is 2.6 and 1.6. BMP showing elevated creatinine at 1. liver enzymes are slightly up. Negative CT of the brain and CTA of the head and neck. Chest x-ray: No acute process shows some pulmonary vascular congestion. EKG showing sinus tachycardia at [address]-T changes. In emergency room region was started on Zosyn and vancomycin, later on Zosyn was stopped per infectious disease recommendation 02/29/20 Patient lying in bed comfortable, she is fully awake and oriented, no chest pain or dyspnea, tolerating diet well, no abdominal pain. No fever. Left lower extremity cellulitis is significantly improving. On reviewing further information patient states that she has gone endoscopy done for her about 2 years ago and she had only polyps. She was a little bit hypoxic so IV fluids were stopped and we'll check chest x- ray. Tissue culture and blood culture showing presumptive staph, patient is already on antibiotics cefepime, infectious disease on the case currently she is on cefazolin for ID team, also patient has underlying osteomyelitis per ID team, her ESR is elevated at 115 Patient was pancytopenia, Hematology of the case 03/01: Patient has been febrile, heart rate 67, blood pressure 120/66, pulse ox 98% on 2 L nasal cannula. Repeat blood work reveals hemoglobin of 7.5, platelet count not recorded. BUN 20 and creatinine 1.29. Blood sugars running between 131 and 208. Repeat chest x-ray reveals chronic parenchymal changes and cardiomegaly with improved aeration right lung base. No new infiltrates seen. Patient has been seen and followed by multiple consultants including Dr. Briones who performed a toe amputation on 02/27. Dr. Blanc is managing sepsis and MSSA bacteremia currently on Kefzol with repeat blood cultures positive. Patient has been seen by Dr. Yousif for chronic thrombocytopenia and anemia both in the safe range. We will change IV to KVO and patient will receive 1 dose of IV Lasix. Chest x-ray will be ordered for tomorrow. 03/02: Patient has been afebrile since yesterday at 8 AM. Heart rate 80, blood pressure 119/62, pulse ox 97% on room air. Repeat blood work reveals hemoglobin 9.2, platelet count 92. BUN 25 and creatinine 1.31. Blood sugars running betwe en 112 and 154. AST 38. Blood culture obtained on March 01 is positive for gram-positive cocci in clusters. CAT scan of the foot reveals diffuse soft tissue edema. Correlate for cellulitis. There appears to be destructive change involving the phalanx of the third digit highly suggestive of osteomyelitis. There is a fracture involving the intra-articular surface and base of proximal phalanx second digit. Chest x-ray reveals mild cardiomegaly. Small bilateral pleural effusions with adjacent atelectasis and/or consolidation. Correlate for mild heart failure. Large bands of atelectasis and lower lungs. Lasix 20 mg IV push ordered 1. DuoNeb treatments added as well as incentive spirometry. Echocardiogram has been ordered to rule out valvular abnormality, vegetation. Patient ate only 25% of her breakfast meals have been 75-100%. The patient is having stools and ileostomy consistent with her normal stools. secured entrance monitor has been a sinus rhythm. 03/03: Patient now has one blood culture obtained on March 02 are showing no growth at 24 hours. If this continues to show no growth, PICC line will be initiated. Patient will need IV antibiotics and may require discharge to [facility]. The patient was not interested in rehab but this will be revisited with her by the lead case manager. Patient has been afebrile for 2 days. Heart rate 72, blood pressure 125/58 pulse ox 99% on room air. Repeat blood work ordered for tomorrow. Patient does have some shortness of breath with activity. She continues to have output from ileostomy. secured entrance monitor is a sinus rhythm. Echocardiogram reveals EF of 55-60% with mild concentric left hypertrophy, mild mitral regurgitation, mild tricuspid regurgitation, borderline pulmonary hypertension. No mention of vegetation. Antibiotics have been changed to nafcillin by Dr. Blanc. Objective - Vital Signs Vital signs: Vital Signs Temp 97.7 F 03/03/20 08:02 Pulse 72 03/03/20 08:02 Resp 18 03/03/20 08:02 BP 125/58 03/03/20 08:02 Pulse Ox 99 03/03/20 08:02 Intake & Output 03/02/20 03/03/20 03/03/20 18:59 06:59 18:59 Intake Total 780 600 Output Total 1075 900 300 Balance -295 -900 300 Weight 79.2 kg 77.6 kg Intake: Oral 780 600 Output: Urine 475 900 300 Uretheral (Mercado) 75 Stool 600 Other: Voiding Method Bedside Commode Bedside Commode # Bowel Movements 300 - Exam Review Of Systems: Constitutional: No fever, no chills, no night sweats. No weight change. Report weakness, reports fatigue. EENT: No headache. No blurred vision or double vision, no loss of vision. No dizziness. No nasal drainage or congestion. No epistaxis. No sore throat. Lungs: Reports shortness of breath, cough, no sputum production. No wheezing. Cardiovascular: No chest pain, no lower extremity edema. No palpitations. No paroxysmal nocturnal dyspnea. No orthopnea. No lightheadedness or dizziness. No syncopal episodes. Abdominal: No abdominal pain. No nausea, vomiting. No diarrhea. No constipation. No bloody or tarry stools. No loss of appetite. Genitourinary: No dysuria, increased frequency, urgency. No urinary retention. Musculoskeletal: No myalgias. Reports muscle weakness, no gait dysfunction, no frequent falls. No back pain. No neck pain. Integumentary: Left foot wounds, no lesions. No rash or pruritus. No unusual bruising. No change in hair or nails. Neurologic: No aphasia. No facial droop. No change in mentation. No head injury. No headache. No paralysis. No paresthesia. Psychiatric: No depression. No anxiety. No mood swings. Endocrine: No abnormal blood sugars. No weight change. No excessive sweating or thirst. No cold intolerance. Physical Examination Gen: This is a 64-year-old female. Patient appears to be comfortable and in no acute distress. HEENT: Head is atraumatic, normocephalic. Pupils equal, round. Sclerae is anicteric. NECK: Supple. No JVD. No lymphadenopathy. No thyromegaly. LUNGS: Clear to auscultation. No wheezes or rhonchi. No intercostal retractions. HEART: Regular rate and rhythm. First heart sound is depressed, second heart sound is normal, 2/6 systolic ejection murmur at the left sternal border. ABDOMEN: Soft. Bowel sounds are present. No masses. No tenderness. Female catheter in place. Patient has ostomy with liquid stool output. EXTREMITIES: No pedal edema. No calf tenderness. Dorsalis pedis +1 santos aterally. Dressing in place for left foot. NEUROLOGICAL: Patient is awake, alert and oriented x3. Cranial nerves 2 through 12 are grossly intact. - Labs CBC & Chem 7: 03/02/20 06:15 03/02/20 06:15 Labs: Abnormal Lab Results - Last 24 Hours (Table) 02/28/20 03/01/20 03/02/20 Range/Units 06:44 14:22 11:55 POC Glucose (mg/dL) 112 H (75-99) mg/dL RBC Folate 1,286 H (280 - 791) ng/mL IgM <16.9 L (40.0-280.0) mg/dL 03/02/20 03/02/20 03/03/20 Range/Units 16:45 20:22 05:57 POC Glucose (mg/dL) 210 H 250 H 112 H (75-99) mg/dL RBC Folate (280 - 791) ng/mL IgM (40.0-280.0) mg/dL Microbiology - Last 24 Hours (Table) 03/02/20 06:15 Blood Culture - Preliminary Blood No Growth after 24 hours 02/29/20 06:33 Blood Culture Gram Stain - Final Blood Blood Culture - Final Staphylococcus aureus 03/01/20 07:20 Blood Culture Gram Stain - Preliminary Blood Blood Culture - Preliminary Presumptive Staph aureus 03/01/20 00:04 Blood Culture Gram Stain - Preliminary Blood Blood Culture - Preliminary Presumptive Staph aureus Assessment and Plan Plan: 1. Metabolic encephalopathy secondary to sepsis, resolved. 2. Fall at home. PT and OT consults. 3. Left third toe gangrene with underlying osteomyelitis status post amputation 02/27. Consult with Dr. Briones appreciated. 4. Sepsis and bacteremia secondary to diabetic foot ulcer left third toe status post amputation. Consult with Dr. Blanc appreciated. Antibiotics changed to nafcillin. Blood cultures repeat are positive. CAT scan of the foot as above. Echocardiogram as above. Await blood cultures to clear for PICC line insertion. 5. Chronic anemia of chronic illness. 6. Recent history of stomal bleed. No active bleeding. 7. Chronic kidney disease stage III. Avoid nephrotoxic agents. 8. Diabetes mellitus type 2. Continue Tradjenta 5 mg daily, NovoLog scale before meals and at bedtime 9. Hepatitis C in remission, stable. 10. Crohn's disease status post ileostomy in 2007 on chronic prednisone. 11. Generalized anxiety disorder. Continue Xanax 12. Hypertension hypertensive cardiovascular disease. Continue lisinopril 2.5 mg daily. 13. GI prophylaxis. Pepcid. 14. DVT prophylaxis. Knee-high CRISTHIAN hose. 15. Fluid overload secondary to IV fluids. Lasix 20 g iv push 1, iv fluids changed to kvo. Duoneb treatments and incentive spirometry. 16. Acute hypoxic respiratory failure, present on admission with initial pulse ox of 77%. Breathing status is currently stable. Discharge plan: Home or subacute rehab at [facility]. resource manager to discuss discharge planning again with the patient. Patient most likely would benefit from subacute rehab Impression and plan of care have been directed as dictated by the signing physician. Glenis Hernandez nurse practitioner acting as scribe for signing physician.
[2020-03-03 11:57] LABS: Glucose,Whole Blood 154 mg/dL (75-99)
[2020-03-03 15:04] LABS: Albumin 2.42 g/dL (3.80-4.90); Gamma Globulin 0.67 g/dL (0.70-1.50)
--- NOTE | 2020-03-03 16:34 | PN ---
PROGRESS NOTE DATE OF SERVICE: 03/03/2020 REASON FOR FOLLOWUP: 1. MSSA bacteremia. 2. Left diabetic foot infection. 3. Persistent bacteremia with concern for endovascular source. INTERVAL HISTORY: The patient is currently afebrile. The patient is breathing comfortably. The patient denies having any chest pain or shortness of breath or cough. No nausea, vomiting, abdominal pain or pain to the left foot. PHYSICAL EXAMINATION: Blood pressure 105/51 with a pulse of 84, temperature 97. She is 96% on room air. General description is a middle-aged female up in the bed in no distress. RESPIRATORY SYSTEM: Unlabored breathing. Clear to auscultation anteriorly. HEART: S1, S2. Regular rate and rhythm. ABDOMEN: Soft. No tenderness. Left foot third toe amputation site wound looks clean. No significant swelling, redness or any drainage. LABS: No new labs have been obtained today. Blood cultures from 03/02/2020 are so far negative. DIAGNOSTIC IMPRESSION AND PLAN: Patient with methicillin-susceptible Staphylococcus aeruginosa bacteremia with source being left third toe diabetic foot infection, status post amputation. CT was negative for any abscess. Echocardiogram shows valvular regurgitation and concern for possible endovascular source. XIAO should be done to rule out endocarditis in view of the persistent bacteremia. Antibiotic is currently in the form of nafcillin; to continue. Will be switching her back to cefazolin 2 grams q.8 to finish a 6-week course of therapy in view of significant bacteremia. MMODL / IJN: [id number] /
[2020-03-03 16:58] LABS: Glucose,Whole Blood 210 mg/dL (75-99)
[2020-03-03] MEDS: SODIUM CHLORIDE 0.9% 1,000 ML IV SCH (19:39)
[2020-03-03] MEDS: MIRTAZAPINE 15 MG TAB PO SCH (19:51)
[2020-03-03] MEDS: SERTRALINE 100 MG TAB PO SCH (19:51)
[2020-03-03] MEDS: LOPERAMIDE 2 MG CAP PO PRN (19:56)
[2020-03-03 20:13] LABS: Glucose,Whole Blood 141 mg/dL (75-99)
[2020-03-04] MEDS: NAFCILLIN 2 GM in DEXTROSE 5% IN WATER 100 ML IVPB SCH ×10 (03:33→22:22)
[2020-03-04] MEDS: PANTOPRAZOLE 40 MG TABLET PO SCH ×2 (05:45→17:56)
[2020-03-04 06:09] LABS: Glucose,Whole Blood 106 mg/dL (75-99)
[2020-03-04] MEDS: INSULIN ASPART (NovoLOG) 100 UNIT/ML VIAL SQ SCH ×4 (06:11→22:24)
[2020-03-04 07:00] LABS: HCT 31.5 % (34.0-46.0); HGB 9.5 gm/dL (11.4-16.0); Hypochromasia Marked; MCH 31.3 pg (25.0-35.0); MCHC 30.2 g/dL (31.0-37.0); MCV 103.8 fL (80.0-100.0); Macrocytosis Moderate; Platelet Count 110 k/uL (150-450); Poikilocytosis Slight; RBC 3.03 m/uL (3.80-5.40); RDW 15.8 % (11.5-15.5); WBC 5.6 k/uL (3.8-10.6)
[2020-03-04 07:35] LABS: Calcium 8.1 mg/dL (8.4-10.2); Potassium 3.3 mmol/L (3.5-5.1)
[2020-03-04] MEDS ORDERED: POTASSIUM CHLORIDE ER 20 MEQ TAB.ER PO STA (08:08)
[2020-03-04] MEDS: predniSONE 20 MG TAB PO SCH (08:45)
[2020-03-04] MEDS: CALCIUM CARB-VIT D 500MG-200UN 1 EACH TAB PO SCH (08:45)
[2020-03-04] MEDS: FERROUS SULFATE 325 MG TAB PO SCH ×2 (08:45→22:23)
[2020-03-04] MEDS: ATORVASTATIN 20 MG TAB PO SCH (08:45)
[2020-03-04] MEDS: LINAGLIPTIN 5 MG TABLET PO SCH (08:45)
[2020-03-04] MEDS: ALPRAZolam 1 MG TAB PO SCH ×2 (08:45→22:23)
[2020-03-04] MEDS: MAGNESIUM OXIDE 400 MG TAB PO SCH (08:45)
[2020-03-04] MEDS: HEPARIN SODIUM,PORCINE 5,000 UNIT/ML 1 ML VIAL SQ SCH ×2 (08:46→22:23)
[2020-03-04] MEDS: IPRATROPIUM-ALBUTEROL 3 ML NEB INHALATION SCH ×3 (08:56→21:29)
[2020-03-04] MEDS ORDERED: BENZOCAINE SPRAY 1 CAN MUCOUS MEM ONE (10:24)
[2020-03-04] MEDS ORDERED: IV FLUID CONTINUATION 500 ML IV ONE (10:30)
[2020-03-04] MEDS ORDERED: fentaNYL (PF) 50 MCG/ML 2 ML AMP IV ONE (10:35)
[2020-03-04] MEDS ORDERED: MIDAZOLAM 2 MG/2 ML VIAL IV ONE (10:36)
[2020-03-04] MEDS: MIDAZOLAM 2 MG/2 ML VIAL IV ONE ×2 (10:37→10:39)
--- NOTE | 2020-03-04 11:21 | ECHOT ---
TRANSESOPHAGEAL ECHOCARDIOGRAM DATE OF SERVICE: 02/27/2020 PERFORMING PHYSICIAN: Alex Sandhu MD. PROCEDURE PERFORMED: Transesophageal echocardiogram. INDICATION: This is a pleasant 64-year-old female patient who was admitted to the hospital and was diagnosed with sepsis with Staph infection. The transesophageal echocardiogram is to rule out any infective endocarditis. COMPLICATION: None. LEVEL OF SEDATION: Moderate with a sedation length of 15 minutes. PROCEDURE DESCRIPTION: After obtaining an informed consent, the patient was brought to the transesophageal echocardiogram room. Pulse oximetry and heart rate monitors were attached to the patient. Subsequently, the transesophageal echocardiogram was advanced through the bite guard to the mid esophagus where 2D echocardiogram images as well as color Doppler images were obtained from various angles. Particular attention was paid for any evidence of infective endocarditis. The procedure was completed without any complication. FINDING: The left ventricular dimension and systolic function appeared to be normal. The ejection fraction appeared to be in the range of 60-65 percent. The right ventricle appeared to be of normal size and function. The left atrium appeared to be within normal limits for dimension. The left atrial appendage appeared to be intact. The interatrial septum appeared to be intact. The aortic valve is a trileaflet valve without stenosis or regurgitation. The mitral valve seems to be thickened with mild MR. There was mild tricuspid regurgitation seen. CONCLUSION: 1. No evidence of any infective endocarditis. 2. Thickened mitral valve leaflets with mild mitral regurgitation. 3. Trileaflet aortic valve without stenosis or regurgitation. 4. Normal tricuspid valve and pulmonic valve. 5. Intact left atrial appendage. 6. Intact interatrial septum. 7. Normal left ventricular dimension and systolic function. 8. Normal right ventricular dimension and systolic function. 9. Normal cardiac chamber sizes. 10.No evidence of pericardial effusion. MMODL / IJN: [id number] /
[2020-03-04] MEDS: traMADol 50 MG TAB PO PRN (11:37)
--- NOTE | 2020-03-04 11:51 | P.CRDCN ---
History of Present Illness History of present illness: This is Kenia Miller PA-C dictating a consult on this patient The patient was interviewed and examined by me as well as by Dr. Puente Case discussed with Dr. Puente and he agrees with the plan of care HPI Patient is a 64-year-old female with a history significant for Crohn's disease, diabetes, hypertension who presented after syncopal episode. She states she did see a spring coiler hand once but is unsure of who it was. She was at home when she passed out while going to the bathroom. She was taken to the emergency department for evaluation. Upon arrival to the emergency department her temperature was 103.8F, pulse 113, blood pressure 137/67 EKG showed sinus tachycardia, rate 112 bpm, isolated Q wave in lead 3, early repolarization abnormality V1 and V2. Head CT showed no acute process. WBC was 4.7, hemoglobin 10.5, platelets 72, lactic acid 3.8. Blood cultures were positive for Staphylococcus aureus and she was started on IV antibiotics. She had discoloration of the left third toe concerning for gangrene and she subsequently underwent amputation of this toe. Cardiology consult was requested for a XIAO to rule out bacterial endocarditis. Her echocardiogram showed EF 55-60%, normal aortic valve, mild MR, mild TR. Patient seen and examined resting in bed. Complains of back pain which she attributes to be uncomfortable bed. She denies any fevers or chills. No cough. No shortness of breath or chest pain. No dizziness, no further syncopal episodes. ROS: No fevers, chills or rigors, no cough, phlegm or expectoration, no nausea, vomiting or diarrhea, has an ostomy no hematuria, dysuria, Positive for back pain no strokes or seizures, Positive for third left toe diabetic foot infection status post amputation EXAMINATION: Patient is afebrile, pulse in the 90s, respirations 16, blood pressure 118/60, oxygen saturation 95% on 2 L nasal cannula Patient seen and examined resting in bed, in no acute distress Lungs are clear to auscultation bilaterally, no wheezing rhonchi or crackles Heart is regular, normal S1 and S2, no audible murmurs No elevated JVD Left foot is wrapped in gauze No edema the right foot REVIEW OF LABS, ECG & MEDICAL DATA WBC 5.6, hemoglobin 9.5, platelets 110, potassium 3.3, BUN 29, creatinine 1.46 Preliminary results of blood cultures from March 03 showed no growth IMPRESSION / ASSESSMENT: #1 sepsis secondary to methicillin susceptible Staphylococcus aureus bacteremia, source thought to be third left toe diabetic foot infection, status post amputation, on IV antibiotics, infectious disease following #2 diabetes #3 Crohn's disease status post ostomy #4 hypertension PLAN: We'll schedule the patient for XIAO to rule out endocarditis Continue statins Further management thereafter Past Medical History Past Medical History: Blood Disorder, Diabetes Mellitus, GERD/Reflux, Hyperlipidemia, Hypertension, Liver Disease, Osteoarthritis (OA), Renal Disease Additional Past Medical History / Comment(s): crohns, hx. hep c, past hx. sepsis & ards 2007, has ileostomy, hx. kidney stones, hx. of infection,has spacer in, hx. anemia related to intermittent bleeding from stoma, has past hx., uti , low platelets septicemia. CHRONIC KIDNEY DISEASE. History of Any Multi-Drug Resistant Organisms: MRSA Date of last positivie culture/infection: 04/25/16 MDRO Source:: Blood & Right Hip Past Surgical History: Appendectomy, Bowel Resection, Cholecystectomy, Hernia Repair, Hysterectomy, Tubal Ligation Additional Past Surgical History / Comment(s): ileostomy 2009 WITH 3-4 RE- SUTURING EPISODES RELATED TO BLEEDING, ileoscopy w/argon gas coagulation of stoma, 10-22-16 revison rt toal hip arthroplasty Past Anesthesia/Blood Transfusion Reactions: No Reported Reaction Past Psychological History: Anxiety Smoking Status: Never smoker Past Alcohol Use History: None Reported Past Drug Use History: None Reported - Past Family History Mother Family Medical History: CVA/TIA, Diabetes Mellitus Additional Family Medical History / Comment(s): Mother at age 88 from CVA. Sister(s) Additional Family Medical History / Comment(s): Patient has 3 sisters with no major medical problems. Patient does not have any brothers. Patient has 2 sons with no major medical problems. Father Family Medical History: Cancer Additional Family Medical History / Comment(s): . Medications and Allergies Home Medications Medication Instructions Recorded Confirmed Type Mirtazapine [Remeron] 15 mg PO HS 06/11/17 02/27/20 History Sertraline HCl [Zoloft] 100 mg PO HS 07/26/17 02/27/20 History Loperamide HCl [Imodium A-D] 2 mg PO TID PRN 05/01/18 02/27/20 History Calcium Carbonate/Vitamin D3 1 tab PO DAILY 06/19/19 02/27/20 History [Calcium 600-Vit D3 800 Caplet] Ferrous Sulfate [Iron (65 MG 325 mg PO DAILY PRN 06/19/19 02/27/20 History Elemental)] Magnesium Oxide [Mag-Ox] 250 mg PO DAILY 06/19/19 02/27/20 History Cholecalciferol (Vitamin D3) 2,000 unit PO DAILY #30 capsule 06/29/19 02/27/20 Rx [Vitamin D3] predniSONE [Deltasone] 20 mg PO DAILY #30 tab 06/30/19 02/27/20 Rx ALPRAZolam [Xanax] 1 mg PO BID 01/26/20 02/27/20 History Cranberry (Unknown Strength) 1 tab PO DAILY 01/26/20 02/27/20 History Rosuvastatin [Crestor] 10 mg PO DAILY 01/26/20 02/27/20 History Vitamin B-12 (Unknown Strength) 1 tab PO DAILY 01/26/20 02/27/20 History allopurinoL [Zyloprim] 100 mg PO DAILY 01/26/20 02/27/20 History lisinopriL [Zestril] 2.5 mg PO DAILY 01/26/20 02/27/20 History sitaGLIPtin PHOSPHATE [Januvia] 50 mg PO DAILY 01/26/20 02/27/20 History Allergies Allergy/AdvReac Type Severity Reaction Status Date / Time adhesive tape Allergy Severe Rash/Hives/Skin Verified 02/27/20 07:45 Peeling levofloxacin [From Levaquin] Allergy Severe Swelling/ra Verified 02/27/20 07:45 sh Quinolones Allergy Severe Anaphylaxis Verified 02/27/20 07:45 /Swelling enoxaparin [From Lovenox] Allergy GI bleed Verified 02/27/20 07:45 Iodinated Contrast Media AdvReac Severe Chest Pain Verified 02/27/20 07:45 [Iodinated Contrast Media - IV Dye] NSAIDS (Non-Steroidal AdvReac Severe GI Verified 02/27/20 07:45 Anti-Inflamma Bleeding/Liver Damage warfarin [From Coumadin] AdvReac Severe Abdominal Verified 02/27/20 07:45 Pain Physical Exam Vitals: Vital Signs Temp Pulse Pulse Pulse Resp BP Pulse Ox 03/04/20 10:49 90 118/60 95 03/04/20 10:42 95 123/58 92 L 03/04/20 10:40 94 95 133/64 91 L 03/04/20 10:28 92 130/62 98 03/04/20 09:16 78 03/04/20 09:05 78 98 03/04/20 08:53 98.2 F 75 63 16 140/72 100 03/04/20 03:36 98 F 63 17 147/62 100 03/04/20 00:00 97.6 F 72 17 135/69 100 03/03/20 20:44 92 03/03/20 20:33 90 03/03/20 19:57 97.9 F 77 17 133/65 99 03/03/20 16:00 73 16 110/65 96 03/03/20 12:55 88 03/03/20 12:41 84 03/03/20 12:11 97.0 F L 74 12 105/61 96 Intake and Output 03/03/20 03/04/20 03/04/20 22:59 06:59 14:59 Intake Total 240 100 Output Total 1400 1000 1900 Balance -1160 -1000 -1800 Intake: IV 100 Oral 240 0 Output: Urine 250 500 Stool 4040 145 2155 Other: Voiding Method Bedside Commode Bedside Commode Bedside Commode Weight 74 kg Results 03/04/20 05:50 03/04/20 05:50 CBC 03/04/20 Range/Units 05:50 WBC 5.6 (3.8-10.6) k/uL RBC 3.03 L (3.80-5.40) m/uL Hgb 9.5 L (11.4-16.0) gm/dL Hct 31.5 L (34.0-46.0) % Plt Count 110 L (150-450) k/uL Comprehensive Metabolic Panel 03/04/20 Range/Units 05:50 Sodium 140 (137-145) mmol/L Potassium 3.3 L (3.5-5.1) mmol/L Chloride 104 (98-107) mmol/L Carbon Dioxide 26 (22-30) mmol/L BUN 29 H (7-17) mg/dL Creatinine 1.46 H (0.52-1.04) mg/dL Glucose 99 (74-99) mg/dL Calcium 8.1 L (8.4-10.2) mg/dL Current Medications Generic Name Dose Route Start Last Admin Trade Name Freq PRN Reason Stop Dose Admin Acetaminophen 650 mg 02/27/20 15:24 03/01/20 05:44 Tylenol Tab PO 650 mg Q4HR PRN Administration Fever and/ or Pain Albuterol/Ipratropium 3 ml 03/02/20 13:00 03/04/20 08:56 Duoneb 0.5 Mg-3 Mg/3 Ml Soln INHALATION 3 ml RT-TID DARIA Administration Albuterol/Ipratropium 3 ml 03/02/20 10:39 Duoneb 0.5 Mg-3 Mg/3 Ml Soln INHALATION RT-Q2H PRN Shortness Of Breath Or Wheezing Alprazolam 1 mg 02/27/20 09:00 03/04/20 08:45 Xanax PO 1 mg BID DARIA Administration Artificial Tears 2 drops 02/28/20 08:51 Artificial Tear Drops BOTH EYES QID PRN Dry Eye(s) Atorvastatin Calcium 20 mg 02/27/20 09:00 03/04/20 08:45 Lipitor PO 20 mg DAILY DARIA Administration Calcium Carbonate 1 each 02/27/20 09:00 03/04/20 08:45 Oscal 500+D PO 1 each DAILY DARIA Administration Ferrous Sulfate 325 mg 03/01/20 21:00 03/04/20 08:45 Feosol PO 325 mg BID DARIA Administration Heparin Sodium (Porcine) 5,000 unit 02/28/20 21:00 03/04/20 08:46 Heparin SQ 5,000 unit Q12HR DARIA Administration Sodium Chloride 1,000 mls @ 20 mls/hr 03/01/20 13:15 03/03/20 19:39 Saline 0.9% IV Not Given .Q24H DARIA Nafcillin Sodium 2 gm/ 100 mls @ 50 mls/hr 03/02/20 16:00 03/04/20 08:46 Dextrose/Water IVPB 50 mls/hr Q4HR DARIA Administration Insulin Aspart 0 unit 02/28/20 21:00 03/04/20 06:11 Novolog SQ Not Given ACHS DARIA Protocol Linagliptin 5 mg 02/27/20 09:00 03/04/20 08:45 Tradjenta PO 5 mg DAILY DARIA Administration Loperamide HCl 2 mg 02/27/20 08:09 03/03/20 19:56 Imodium PO 2 mg TID PRN Administration Diarrhea Magnesium Oxide 400 mg 02/27/20 09:00 03/04/20 08:45 Mag-Ox PO 400 mg DAILY DARIA Administration Mirtazapine 15 mg 02/27/20 21:00 03/03/20 19:51 Remeron PO 15 mg HS DARIA Administration Miscellaneous Information 1 each 02/28/20 08:30 Magnesium Per Protocol MISCELLANE DAILY PRN Per Protocol Protocol Pantoprazole Sodium 40 mg 03/01/20 19:00 03/04/20 05:45 Protonix PO Not Given AC-BID DARIA Prednisone 20 mg 02/27/20 09:00 03/04/20 08:45 PO 20 mg DAILY DARIA Administration Sertraline HCl 100 mg 02/27/20 21:00 03/03/20 19:51 Zoloft PO 100 mg HS DARIA Administration Tramadol HCl 50 mg 02/29/20 19:43 03/04/20 11:37 Ultram PO 50 mg TID PRN Administration Pain Intake and Output 03/03/20 03/04/20 03/04/20 22:59 06:59 14:59 Intake Total 240 100 Output Total 1400 1000 1900 Balance -1160 -1000 -1800 Intake: IV 100 Oral 240 0 Output: Urine 250 500 Stool 0500 593 6360 Other: Voiding Method Bedside Commode Bedside Commode Bedside Commode Weight 74 kg 03/04/20 05:50 03/04/20 05:50
[2020-03-04 11:52] LABS: Glucose,Whole Blood 107 mg/dL (75-99)
--- NOTE | 2020-03-04 13:45 | P.PN ---
Subjective Progress Note Date: 03/04/20 This is a 64-year-old female with past medical history of Crohn's disease status post ileostomy, type 2 diabetes, hepatitis C liver disease, osteoarthritis history of kidney stones, chronic iron deficiency anemia, with an issue with stomal bleed on and off, status post upper and lower endoscopy with capsule endoscopy with Dr. Stanton. Was recently discharged from hospital for stomal bleed. She presents today with altered mental status brought by . Patient fell today in the bathroom and was noticed to be slightly confused so she was brought to the emergency room where she was found to have fever of 103. When I saw the patient she was fully awake and oriented, slightly lethargic but she can answer questions appropriately. Vitas looks stable, blood pressure was on the low side 93/54, currently is better at 125/61, patient is saturating 99% on 4 L oxygen via nasal cannula. On admission he had a fever of 103.8. No leukocytosis and hemoglobin 10.0, INR is 2.6 and 1.6. BMP showing elevated creatinine at 1. liver enzymes are slightly up. Negative CT of the brain and CTA of the head and neck. Chest x-ray: No acute process shows some pulmonary vascular congestion. EKG showing sinus tachycardia at [address]-T changes. In emergency room region was started on Zosyn and vancomycin, later on Zosyn was stopped per infectious disease recommendation 02/29/20 Patient lying in bed comfortable, she is fully awake and oriented, no chest pain or dyspnea, tolerating diet well, no abdominal pain. No fever. Left lower extremity cellulitis is significantly improving. On reviewing further information patient states that she has gone endoscopy done for her about 2 years ago and she had only polyps. She was a little bit hypoxic so IV fluids were stopped and we'll check chest x- ray. Tissue culture and blood culture showing presumptive staph, patient is already on antibiotics cefepime, infectious disease on the case currently she is on cefazolin for ID team, also patient has underlying osteomyelitis per ID team, her ESR is elevated at 115 Patient was pancytopenia, Hematology of the case 03/01: Patient has been febrile, heart rate 67, blood pressure 120/66, pulse ox 98% on 2 L nasal cannula. Repeat blood work reveals hemoglobin of 7.5, platelet count not recorded. BUN 20 and creatinine 1.29. Blood sugars running between 131 and 208. Repeat chest x-ray reveals chronic parenchymal changes and cardiomegaly with improved aeration right lung base. No new infiltrates seen. Patient has been seen and followed by multiple consultants including Dr. Briones who performed a toe amputation on 02/27. Dr. Blanc is managing sepsis and MSSA bacteremia currently on Kefzol with repeat blood cultures positive. Patient has been seen by Dr. Yousif for chronic thrombocytopenia and anemia both in the safe range. We will change IV to KVO and patient will receive 1 dose of IV Lasix. Chest x-ray will be ordered for tomorrow. 03/02: Patient has been afebrile since yesterday at 8 AM. Heart rate 80, blood pressure 119/62, pulse ox 97% on room air. Repeat blood work reveals hemoglobin 9.2, platelet count 92. BUN 25 and creatinine 1.31. Blood sugars running betwe en 112 and 154. AST 38. Blood culture obtained on March 01 is positive for gram-positive cocci in clusters. CAT scan of the foot reveals diffuse soft tissue edema. Correlate for cellulitis. There appears to be destructive change involving the phalanx of the third digit highly suggestive of osteomyelitis. There is a fracture involving the intra-articular surface and base of proximal phalanx second digit. Chest x-ray reveals mild cardiomegaly. Small bilateral pleural effusions with adjacent atelectasis and/or consolidation. Correlate for mild heart failure. Large bands of atelectasis and lower lungs. Lasix 20 mg IV push ordered 1. DuoNeb treatments added as well as incentive spirometry. Echocardiogram has been ordered to rule out valvular abnormality, vegetation. Patient ate only 25% of her breakfast meals have been 75-100%. The patient is having stools and ileostomy consistent with her normal stools. construction technology instructor has been a sinus rhythm. 03/03: Patient now has one blood culture obtained on March 02 are showing no growth at 24 hours. If this continues to show no growth, PICC line will be initiated. Patient will need IV antibiotics and may require discharge to [facility]. The patient was not interested in rehab but this will be revisited with her by the corrections caseworker. Patient has been afebrile for 2 days. Heart rate 72, blood pressure 125/58 pulse ox 99% on room air. Repeat blood work ordered for tomorrow. Patient does have some shortness of breath with activity. She continues to have output from ileostomy. construction technology instructor is a sinus rhythm. Echocardiogram reveals EF of 55-60% with mild concentric left hypertrophy, mild mitral regurgitation, mild tricuspid regurgitation, borderline pulmonary hypertension. No mention of vegetation. Antibiotics have been changed to nafcillin by Dr. Blanc. 03/04: Patient has been seen by cardiology and is scheduled for XIAO today which was performed by Dr. Sandhu and revealed no evidence of infective endocarditis. Thickened mitral valve leaflets with mild mitral regurgitation. Trileaflet aortic valve without stenosis or regurgitation. Normal tricuspid valve and pulmonic valve. Intact left atrial appendage. Intact intra-atrial septum. Normal systolic function. No evidence of pericardial effusion. She has one blood culture with no growth at 48 hours and a second with no growth at 24 hours. PICC line ordered for Saturday per Dr. Blanc recommendations. Patient has been afebrile, heart rate 87, blood pressure 113/59, pulse ox 96% on room air. Repeat blood work reveals W BC 5.6, hemoglobin 9.5, platelet count 110. Potassium 3.3, BUN 29 and creatinine 1.46. Potassium will be replaced. Blood sugars running between 99 and 210. Patient denies any chest pain or shortness of breath. No lightheadedness or dizziness. She complains of back pain due to bed hospital bed. Patient is not interested in subacute rehab and is adamant that she will go home. She does have 100% coverage for IV antibiotics in the home. sales strategy manager is working with her closely to make arrangements or anticipated discharge on Saturday. Objective - Vital Signs Vital signs: Vital Signs Temp 98.5 F 03/04/20 12:04 Pulse 90 03/04/20 12:04 Resp 17 03/04/20 12:04 BP 113/59 03/04/20 12:04 Pulse Ox 96 03/04/20 12:04 Intake & Output 03/03/20 03/04/20 03/04/20 18:59 06:59 18:59 Intake Total 840 100 Output Total 1500 1800 2600 Balance -660 -1800 -2500 Weight 74 kg Intake: IV 100 Oral 840 0 Output: Urine 300 250 500 Stool 1200 1550 2100 Other: Voiding Method Bedside Commode Bedside Commode - Exam Review Of Systems: Constitutional: No fever, no chills, no night sweats. No weight change. Report weakness, reports fatigue. EENT: No headache. No blurred vision or double vision, no loss of vision. No dizziness. No nasal drainage or congestion. No epistaxis. No sore throat. Lungs: Reports shortness of breath, cough, no sputum production. No wheezing. Cardiovascular: No chest pain, no lower extremity edema. No palpitations. No paroxysmal nocturnal dyspnea. No orthopnea. No lightheadedness or dizziness. No syncopal episodes. Abdominal: No abdominal pain. No nausea, vomiting. No diarrhea. No constipation. No bloody or tarry stools. No loss of appetite. Genitourinary: No dysuria, increased frequency, urgency. No urinary retention. Musculoskeletal: No myalgias. Reports muscle weakness, no gait dysfunction, no frequent falls. No back pain. No neck pain. Integumentary: Left foot wounds, no lesions. No rash or pruritus. No unusual bruising. No change in hair or nails. Neurologic: No aphasia. No facial droop. No change in mentation. No head injury. No headache. No paralysis. No paresthesia. Psychiatric: No depression. No anxiety. No mood swings. Endocrine: Reports abnormal blood sugars. Physical Examination Gen: This is a 64-year-old female. Patient appears to be comfortable. HEENT: Head is atraumatic, normocephalic. Pupils equal, round. Sclerae is anicteric. NECK: Supple. No JVD. No lymphadenopathy. No thyromegaly. LUNGS: Clear to auscultation. No wheezes or rhonchi. No intercostal retractions. HEART: Regular rate and rhythm. First heart sound is depressed, second heart sound is normal, 2/6 systolic ejection murmur at the left sternal border. ABDOMEN: Soft. Bowel sounds are present. No masses. No tenderness. Female catheter in place. Patient has ostomy with liquid stool output. EXTREMITIES: No pedal edema. No calf tenderness. Dorsalis pedis +[address] for left foot. NEUROLOGICAL: Patient is awake, alert and oriented x3. Cranial nerves 2 through 12 are grossly intact. - Labs CBC & Chem 7: 03/04/20 05:50 03/04/20 05:50 Labs: Abnormal Lab Results - Last 24 Hours (Table) 02/28/20 03/01/20 03/03/20 Range/Units 12:32 07:20 16:57 RBC (3.80-5.40) m/uL Hgb (11.4-16.0) gm/dL Hct (34.0-46.0) % MCV (80.0-100.0) fL MCHC (31.0-37.0) g/dL RDW (11.5-15.5) % Plt Count (150-450) k/uL Potassium (3.5-5.1) mmol/L BUN (7-17) mg/dL Creatinine (0.52-1.04) mg/dL POC Glucose (mg/dL) 210 H (75-99) mg/dL Calcium (8.4-10.2) mg/dL Erythropoietin 125.08 H (2.00-30.00) mIU/mL Albumin (PEP) 2.42 L (3.80-4.90) g/dL Lfivr-[id number]-Qvqosxgwu 0.44 H (0.10-0.40) g/dL Gamma Globulins 0.67 L (0.70-1.50) g/dL 03/03/20 03/04/20 03/04/20 Range/Units 20:11 05:50 05:50 RBC 3.03 L (3.80-5.40) m/uL Hgb 9.5 L (11.4-16.0) gm/dL Hct 31.5 L (34.0-46.0) % MCV 103.8 H (80.0-100.0) fL MCHC 30.2 L (31.0-37.0) g/dL RDW 15.8 H (11.5-15.5) % Plt Count 110 L (150-450) k/uL Potassium 3.3 L (3.5-5.1) mmol/L BUN 29 H (7-17) mg/dL Creatinine 1.46 H (0.52-1.04) mg/dL POC Glucose (mg/dL) 141 H (75-99) mg/dL Calcium 8.1 L (8.4-10.2) mg/dL Erythropoietin (2.00-30.00) mIU/mL Albumin (PEP) (3.80-4.90) g/dL Ijoeo-2-Ujcaywxoa (0.10-0.40) g/dL Gamma Globulins (0.70-1.50) g/dL 03/04/20 03/04/20 Range/Units 06:07 11:51 RBC (3.80-5.40) m/uL Hgb (11.4-16.0) gm/dL Hct (34.0-46.0) % MCV (80.0-100.0) fL MCHC (31.0-37.0) g/dL RDW (11.5-15.5) % Plt Count (150-450) k/uL Potassium (3.5-5.1) mmol/L BUN (7-17) mg/dL Creatinine (0.52-1.04) mg/dL POC Glucose (mg/dL) 106 H 107 H (75-99) mg/dL Calcium (8.4-10.2) mg/dL Erythropoietin (2.00-30.00) mIU/mL Albumin (PEP) (3.80-4.90) g/dL Hqejx-3-Reyxgeilz (0.10-0.40) g/dL Gamma Globulins (0.70-1.50) g/dL Microbiology - Last 24 Hours (Table) 03/02/20 06:15 Blood Culture - Preliminary Blood No Growth after 48 hours 03/03/20 06:05 Blood Culture - Preliminary Blood No Growth after 24 hours 03/01/20 07:20 Blood Culture Gram Stain - Final Blood Blood Culture - Final Staphylococcus aureus 02/28/20 14:21 Anaerobic Culture - Final Toe - Left Third 03/01/20 00:04 Blood Culture Gram Stain - Final Blood Blood Culture - Final Staphylococcus aureus Assessment and Plan Plan: 1. Metabolic encephalopathy secondary to sepsis, resolved. 2. Fall at home. PT and OT consults. 3. Left third toe gangrene with underlying osteomyelitis status post amputation 02/27. Consult with Dr. Briones appreciated. 4. Sepsis and bacteremia secondary to diabetic foot ulcer left third toe status post amputation. Consult with Dr. Blanc appreciated. Continue nafcillin. Repeat blood cultures from March 02 and are showing no growth. CAT scan of the foot as above. Echocardiogram as above. XIAO revealed no vegetation. PICC line insertion scheduled for Saturday. 5. Chronic anemia of chronic illness. 6. Recent history of stomal bleed. No active bleeding. 7. Chronic kidney disease stage III. Avoid nephrotoxic agents. 8. Diabetes mellitus type 2. Continue Tradjenta 5 mg daily, NovoLog scale before meals and at bedtime 9. Hepatitis C in remission, stable. 10. Crohn's disease status post ileostomy in 2007 on chronic prednisone. 11. Generalized anxiety disorder. Continue Xanax 12. Hypertension hypertensive cardiovascular disease. Continue lisinopril 2.5 mg daily. 13. GI prophylaxis. Protonix 14. DVT prophylaxis. Knee-high CRISTHIAN hose. Heparin subcu. 15. Fluid overload secondary to IV fluids. Lasix 20 g iv push 1, iv fluids discontinued. Duoneb treatments and incentive spirometry. 16. Acute hypoxic respiratory failure, present on admission with initial pulse ox of 77%. Breathing status is currently stable. Discharge plan: Home with [facility] care and home IV antibiotic therapy. Impression and plan of care have been directed as dictated by the signing physician. Glenis Hernandez nurse practitioner acting as scribe for signing physician.
[2020-03-04] MEDS: HYDROcodone/APAP 5-325MG 1 EACH TAB PO PRN (15:24)
[2020-03-04] MEDS: SODIUM CHLORIDE 0.9% 1,000 ML IV SCH (15:27)
[2020-03-04 16:46] LABS: Glucose,Whole Blood 234 mg/dL (75-99)
--- NOTE | 2020-03-04 18:17 | CT ---
EXAMINATION TYPE: CT lumbar spine wo con DATE OF EXAM: 03/04/2020 COMPARISON: None HISTORY: Low back pain. CT DLP: 1150.6 mGycm Automated exposure control for dose reduction was used. Images were obtained from the level of T12-S3 vertebra without contrast. Lumbar vertebra have normal spacing and alignment. There is no compression fracture. There is broad-b ased posterior central disc herniation at L4-5. There is developmentally large spinal canal. There is no spinal stenosis. Abdominal aorta is atheromatous. There is no lumbar paraspinal mass. Sacroiliac joints appear intact. There is osteopenia. There are multiple bilateral small renal calculi. There is no hydronephrosis. IMPRESSION: Osteopenia. No fracture. Mild posterior L4-5 lumbar disc herniation without significant impingement o n the spinal canal. Nonobstructing multiple renal calculi.
--- NOTE | 2020-03-04 18:18 | PN ---
PROGRESS NOTE DATE OF SERVICE: 03/04/2020 REASON FOR FOLLOWUP: MSSA bacteremia, left foot diabetic foot infection, status post amputation. INTERVAL HISTORY: The patient is currently afebrile. The patient is feeling better, breathing comfortably. Denies having any chest pain or shortness of breath or cough. No nausea or vomiting. No abdominal pain. Has been complaining of back pain, which seems to be new for her. No pain to the left foot. PHYSICAL EXAMINATION: Blood pressure 113/59 with a pulse of 87, temperature 98.5. She is 96% on room air. General description is a middle-aged female lying in bed in no distress. RESPIRATORY SYSTEM: Unlabored breathing. Clear to auscultation anteriorly. HEART: S1, S2. Regular rate and rhythm. ABDOMEN: Soft. No tenderness. Left foot is currently dressed. No obvious drainage on the dressing. LABS: Hemoglobin 9.5, white count 5.7, BUN of 29, creatinine 1.46. Blood cultures 03/02 and 03/03/2020 so far negative. DIAGNOSTIC IMPRESSION AND PLAN: Patient with methicillin-susceptible Staphylococcus aeruginosa bacteremia, source left third toe diabetic foot infection, status post amputation of the third toe. In view of the persistent bacteremia, the patient underwent XIAO that was negative. However, the patient does have a new low back pain; need to rule out possible discitis. Unfortunately we have borderline kidney function and high risk of nephrotoxicity from the contrast; unable to use CT with contrast, but an MRI CT without any contrast changes may go to MRI after normalizing kidney function. For now, continue nafcillin. She will be able to get a PICC line on Saturday and antibiotic will be transitioned to cefazolin for outpatient completion. Family at the bedside. Multiple questions were answered. MMODL / IJN: [id number] /
[2020-03-04 20:05] LABS: Glucose,Whole Blood 123 mg/dL (75-99)
[2020-03-04] MEDS: MIRTAZAPINE 15 MG TAB PO SCH (22:24)
[2020-03-04] MEDS: LOPERAMIDE 2 MG CAP PO PRN (22:24)
[2020-03-04] MEDS: SERTRALINE 100 MG TAB PO SCH (22:24)
[2020-03-05] MEDS: traMADol 50 MG TAB PO PRN (00:17)
[2020-03-05] MEDS: NAFCILLIN 2 GM in DEXTROSE 5% IN WATER 100 ML IVPB SCH ×12 (00:30→21:14)
[2020-03-05 06:17] LABS: Glucose,Whole Blood 77 mg/dL (75-99)
[2020-03-05] MEDS: INSULIN ASPART (NovoLOG) 100 UNIT/ML VIAL SQ SCH ×4 (06:42→22:17)
[2020-03-05] MEDS: PANTOPRAZOLE 40 MG TABLET PO SCH ×2 (06:42→17:34)
[2020-03-05] MEDS: IPRATROPIUM-ALBUTEROL 3 ML NEB INHALATION SCH ×3 (07:51→19:58)
[2020-03-05] MEDS: HEPARIN SODIUM,PORCINE 5,000 UNIT/ML 1 ML VIAL SQ SCH ×3 (09:15→22:22)
[2020-03-05] MEDS: predniSONE 20 MG TAB PO SCH (09:15)
[2020-03-05] MEDS: MAGNESIUM OXIDE 400 MG TAB PO SCH (09:15)
[2020-03-05] MEDS: ATORVASTATIN 20 MG TAB PO SCH (09:15)
[2020-03-05] MEDS: CALCIUM CARB-VIT D 500MG-200UN 1 EACH TAB PO SCH (09:15)
[2020-03-05] MEDS: ALPRAZolam 1 MG TAB PO SCH ×2 (09:15→22:16)
[2020-03-05] MEDS: LINAGLIPTIN 5 MG TABLET PO SCH (09:15)
[2020-03-05] MEDS: FERROUS SULFATE 325 MG TAB PO SCH ×3 (09:15→22:24)
[2020-03-05 09:20] LABS: Glucose,Whole Blood 92 mg/dL (75-99)
--- NOTE | 2020-03-05 09:43 | P.NPCON ---
History of Present Illness - Reason for Consult acute renal failure, chronic renal failure - History of Present Illness reason for consultation: Acute kidney injury on chronic kidney disease History of present illness: patient is a 64-year-old female seen in initial consultation for acute kidney injury on chronic kidney disease. Patient has chronic kidney disease stage III with baseline creatinine in the range of 1.2-1.4. Creatinine was 1.8 on admission and is 1.46 today. patient is noted to have staph aureus bacteremia with source being left foot wound. She is maintained on IV antibiotics. Danielle ent is awake and alert. Denies chest pain or shortness of breath. Good urine output. No hematuria or dysuria. Feels a little sick to her stomach today. Patient has history of Crohn's disease and has an ileostomy. Denies excessive output from the ileostomy. Patient states she changes the bag once daily. Hemodynamically stable. No fever or chills. No cough. she is currently not on IV fluids or diuretics. Denies use of nonsteroidals. She does have history of diabetes mellitus. Vital signs are stable. General: The patient appeared well nourished and normally developed. HEENT: Head exam is unremarkable. Neck is without jugular venous distension. LUNGS: Lungs are clear to auscultation and percussion. Breath sounds decreased. HEART: Rate and Rhythm are regular. ABDOMEN: soft, nontender. EXTREMITITES: No edema. Past Medical History Past Medical History: Blood Disorder, Diabetes Mellitus, GERD/Reflux, Hyperlipidemia, Hypertension, Liver Disease, Osteoarthritis (OA), Renal Disease Additional Past Medical History / Comment(s): crohns, hx. hep c, past hx. sepsis & ards 2007, has ileostomy, hx. kidney stones, hx. of infection,has spacer in, hx. anemia related to intermittent bleeding from stoma, has past hx., uti , low platelets septicemia. CHRONIC KIDNEY DISEASE. History of Any Multi-Drug Resistant Organisms: MRSA Date of last positivie culture/infection: 04/25/16 MDRO Source:: Blood & Right Hip Past Surgical History: Appendectomy, Bowel Resection, Cholecystectomy, Hernia Repair, Hysterectomy, Tubal Ligation Additional Past Surgical History / Comment(s): ileostomy 2009 WITH 3-4 RE- SUTURING EPISODES RELATED TO BLEEDING, ileoscopy w/argon gas coagulation of stoma, 10-22-16 revison rt toal hip arthroplasty Past Anesthesia/Blood Transfusion Reactions: No Reported Reaction Past Psychological History: Anxiety Smoking Status: Never smoker Past Alcohol Use History: None Reported Past Drug Use History: None Reported - Past Family History Mother Family Medical History: CVA/TIA, Diabetes Mellitus Additional Family Medical History / Comment(s): Mother at age 88 from CVA. Sister(s) Additional Family Medical History / Comment(s): Patient has 3 sisters with no major medical problems. Patient does not have any brothers. Patient has 2 sons with no major medical problems. Father Family Medical History: Cancer Additional Family Medical History / Comment(s): . Medications and Allergies Home Medications Medication Instructions Recorded Confirmed Type Mirtazapine [Remeron] 15 mg PO HS 06/11/17 02/27/20 History Sertraline HCl [Zoloft] 100 mg PO HS 07/26/17 02/27/20 History Loperamide HCl [Imodium A-D] 2 mg PO TID PRN 05/01/18 02/27/20 History Calcium Carbonate/Vitamin D3 1 tab PO DAILY 06/19/19 02/27/20 History [Calcium 600-Vit D3 800 Caplet] Ferrous Sulfate [Iron (65 MG 325 mg PO DAILY PRN 06/19/19 02/27/20 History Elemental)] Magnesium Oxide [Mag-Ox] 250 mg PO DAILY 06/19/19 02/27/20 History Cholecalciferol (Vitamin D3) 2,000 unit PO DAILY #30 capsule 06/29/19 02/27/20 Rx [Vitamin D3] predniSONE [Deltasone] 20 mg PO DAILY #30 tab 06/30/19 02/27/20 Rx ALPRAZolam [Xanax] 1 mg PO BID 01/26/20 02/27/20 History Cranberry (Unknown Strength) 1 tab PO DAILY 01/26/20 02/27/20 History Rosuvastatin [Crestor] 10 mg PO DAILY 01/26/20 02/27/20 History Vitamin B-12 (Unknown Strength) 1 tab PO DAILY 01/26/20 02/27/20 History allopurinoL [Zyloprim] 100 mg PO DAILY 01/26/20 02/27/20 History lisinopriL [Zestril] 2.5 mg PO DAILY 01/26/20 02/27/20 History sitaGLIPtin PHOSPHATE [Januvia] 50 mg PO DAILY 01/26/20 02/27/20 History Allergies Allergy/AdvReac Type Severity Reaction Status Date / Time adhesive tape Allergy Severe Rash/Hives/Skin Verified 02/27/20 07:45 Peeling levofloxacin [From Levaquin] Allergy Severe Swelling/ra Verified 02/27/20 07:45 sh Quinolones Allergy Severe Anaphylaxis Verified 02/27/20 07:45 /Swelling enoxaparin [From Lovenox] Allergy GI bleed Verified 02/27/20 07:45 Iodinated Contrast Media AdvReac Severe Chest Pain Verified 02/27/20 07:45 [Iodinated Contrast Media - IV Dye] NSAIDS (Non-Steroidal AdvReac Severe GI Verified 02/27/20 07:45 Anti-Inflamma Bleeding/Liver Damage warfarin [From Coumadin] AdvReac Severe Abdominal Verified 02/27/20 07:45 Pain Physical Exam Vitals: Vital Signs Temp Pulse Pulse Pulse Resp BP Pulse Ox 03/05/20 04:28 72 03/05/20 04:20 70 03/05/20 04:00 98.7 F 85 18 136/65 93 L 03/05/20 00:00 98.3 F 71 18 146/81 99 03/04/20 21:47 97.3 F L 72 16 157/70 99 03/04/20 20:00 71 16 03/04/20 19:59 16 03/04/20 16:30 18 03/04/20 16:00 17 03/04/20 12:04 98.5 F 90 17 113/59 96 03/04/20 10:49 90 118/60 95 03/04/20 10:42 95 123/58 92 L 03/04/20 10:40 94 95 133/64 91 L 03/04/20 10:28 92 130/62 98 Intake and Output 03/04/20 03/05/20 03/05/20 22:59 06:59 14:59 Intake Total 540 Output Total 2800 2300 Balance -2260 -2300 Intake: Oral 540 Output: Urine 400 500 Stool 2400 1800 Other: Voiding Method Bedside Commode Bedside Commode # Bowel Movements 1 Weight 72.6 kg Results - Lab Results Most recent lab results Calcium 8.1 mg/dL (8.4-10.2) L 09/11/20 05:50 Phosphorus 2.3 mg/dL (2.5-4.5) L 02/29/20 06:33 Magnesium 2.2 mg/dL (1.6-2.3) 02/29/20 06:33 03/04/20 05:50 03/04/20 05:50 Assessment and Plan Plan: assessment: 1. Acute kidney injury mostly prerenal secondary to infection. creatinine was 1.8 on admission and is 1.46 today. 2. Chronic kidney disease stage III with baseline creatinine in the range of 1.2-1.4 secondary to diabetic kidney disease. 3. MSSA bacteremia source being left foot diabetic foot infection. Status post amputation of the left third toe. XIAO negative. Maintained on antibiotics per infectious disease. 4. Diabetes mellitus. 5. Anemia of chronic kidney disease. 6. History of Crohn's disease. Has an ileostomy. Plan: Add Aranesp. Follow-up morning labs. Avoid nephrotoxins. Cleared for PICC line placement on her dominant arm. Thank you for the consultation. I will continue to follow the patient with you during her hospital stay.
[2020-03-05] MEDS ORDERED: DARBEPOETIN ALFA 40 MCG/0.4 ML SYRINGE SQ SCH (10:00)
[2020-03-05 10:39] LABS: Calcium 8.6 mg/dL (8.4-10.2); Magnesium 1.3 mg/dL (1.6-2.3)
[2020-03-05 11:58] LABS: Glucose,Whole Blood 117 mg/dL (75-99)
--- NOTE | 2020-03-05 12:00 | P.PN ---
Subjective This is Kenia Miller PA-C dictating a progress note on this patient The patient was interviewed and examined by me as well as by Dr. Puente Case discussed with Dr. Puente and he agrees with the plan of care HPI/interval history Patient is a 64-year-old female with a history significant for Crohn's disease, diabetes, hypertension who presented after syncopal episode. She was found to be febrile and admitted for treatment of sepsis secondary to Staphylococcus aureus. Yesterday she underwent a XIAO which did not show any evidence of endocarditis. She is still on the IV antibiotics. Infectious disease is following. Patient seen and examined resting in bed. Complaining of nausea and a lack of appetite. She states she feels a little lightheaded from not eating. She denies any syncope. No chest pain or shortness of breath. EXAMINATION Temperature 99.3F, pulse in the 90s, respirations 16, blood pressure 152/69, oxygen saturation 93% on room air Patient seen and examined resting in bed, in no acute distress Lungs are clear to auscultation bilaterally, no wheezing rhonchi or crackles Heart is regular, normal S1 and S2, no audible murmurs No elevated JVD Left foot is wrapped in gauze No edema the right foot REVIEW OF LABS, ECG Sodium 137, potassium 4.0, BUN 21, creatinine 1.2 to, magnesium 1.3 XIAO showed no evidence of endocarditis, EF 60-65%, mitral valve thickened with mild MR Culture from March 03 preliminary results showing no growth after 48 hours Telemetry shows sinus mechanism IMPRESSION / ASSESSMENT: #1 sepsis secondary to methicillin susceptible Staphylococcus aureus bacteremia, source thought to be third left toe diabetic foot infection, status post amputation, on IV antibiotics, infectious disease following #2 diabetes #3 Crohn's disease status post ostomy #4 hypertension #5 no evidence of endocarditis on XIAO #6 acute kidney injury, improving, nephrology following #7 hypomagnesemia PLAN: Will add low-dose amlodipine for her blood pressure, in the future RACHID inhibitor or angiotensin receptor jacques should be considered since she is diabetic however she does have an acute kidney injury so we will hold off right Continue statins Magnesium being replaced Management of sepsis per infectious disease Objective - Vital Signs Vital signs: Vital Signs Temp 99.3 F 03/05/20 08:00 Pulse 67 03/05/20 11:14 Resp 18 03/05/20 04:00 BP 152/69 03/05/20 08:00 Pulse Ox 93 L 03/05/20 08:00 Intake & Output 03/04/20 03/05/20 03/05/20 18:59 06:59 18:59 Intake Total 760 Output Total 4600 3100 Balance -3840 -3100 Weight 72.6 kg Intake: IV 100 Oral 660 Output: Urine 900 500 Stool 3700 2600 Other: Voiding Method Bedside Commode Bedside Commode # Bowel Movements 1 - Labs CBC & Chem 7: 03/04/20 05:50 03/05/20 10:04 Labs: Abnormal Lab Results - Last 24 Hours (Table) 03/01/20 03/04/20 03/04/20 Range/Units 07:20 16:44 20:03 BUN (7-17) mg/dL Creatinine (0.52-1.04) mg/dL Glucose (74-99) mg/dL POC Glucose (mg/dL) 234 H 123 H (75-99) mg/dL Magnesium (1.6-2.3) mg/dL Erythropoietin 125.08 H (2.00-30.00) mIU/mL 03/05/20 03/05/20 Range/Units 10:04 11:57 BUN 21 H (7-17) mg/dL Creatinine 1.22 H (0.52-1.04) mg/dL Glucose 110 H (74-99) mg/dL POC Glucose (mg/dL) 117 H (75-99) mg/dL Magnesium 1.3 L (1.6-2.3) mg/dL Erythropoietin (2.00-30.00) mIU/mL Microbiology - Last 24 Hours (Table) 03/02/20 06:15 Blood Culture - Preliminary Blood No Growth after 72 hours 03/03/20 06:05 Blood Culture - Preliminary Blood No Growth after 48 hours
[2020-03-05] MEDS ORDERED: MAGNESIUM SULFATE-D5W PMX 1 GM in DEXTROSE/WATER 1 100ML.BAG IVPB SCH (12:15)
[2020-03-05] MEDS: MAGNESIUM SULFATE-D5W PMX 1 GM in DEXTROSE/WATER 1 100ML.BAG IVPB SCH ×3 (13:04→22:17)
[2020-03-05] MEDS: amLODIPine 2.5 MG TAB PO SCH (13:04)
[2020-03-05] MEDS: SODIUM CHLORIDE 0.9% 1,000 ML IV SCH (13:05)
--- NOTE | 2020-03-05 13:19 | P.PN ---
Subjective Progress Note Date: 03/05/20 This is a 64-year-old female with past medical history of Crohn's disease status post ileostomy, type 2 diabetes, hepatitis C liver disease, osteoarthritis history of kidney stones, chronic iron deficiency anemia, with an issue with stomal bleed on and off, status post upper and lower endoscopy with capsule endoscopy with Dr. Stanton. Was recently discharged from hospital for stomal bleed. She presents today with altered mental status brought by . Patient fell today in the bathroom and was noticed to be slightly confused so she was brought to the emergency room where she was found to have fever of 103. When I saw the patient she was fully awake and oriented, slightly lethargic but she can answer questions appropriately. Vitas looks stable, blood pressure was on the low side 93/54, currently is better at 125/61, patient is saturating 99% on 4 L oxygen via nasal cannula. On admission he had a fever of 103.8. No leukocytosis and hemoglobin 10.0, INR is 2.6 and 1.6. BMP showing elevated creatinine at 1. liver enzymes are slightly up. Negative CT of the brain and CTA of the head and neck. Chest x-ray: No acute process shows some pulmonary vascular congestion. EKG showing sinus tachycardia at [address]-T changes. In emergency room region was started on Zosyn and vancomycin, later on Zosyn was stopped per infectious disease recommendation 02/29/20 Patient lying in bed comfortable, she is fully awake and oriented, no chest pain or dyspnea, tolerating diet well, no abdominal pain. No fever. Left lower extremity cellulitis is significantly improving. On reviewing further information patient states that she has gone endoscopy done for her about 2 years ago and she had only polyps. She was a little bit hypoxic so IV fluids were stopped and we'll check chest x- ray. Tissue culture and blood culture showing presumptive staph, patient is already on antibiotics cefepime, infectious disease on the case currently she is on cefazolin for ID team, also patient has underlying osteomyelitis per ID team, her ESR is elevated at 115 Patient was pancytopenia, Hematology of the case 03/01: Patient has been febrile, heart rate 67, blood pressure 120/66, pulse ox 98% on 2 L nasal cannula. Repeat blood work reveals hemoglobin of 7.5, platelet count not recorded. BUN 20 and creatinine 1.29. Blood sugars running between 131 and 208. Repeat chest x-ray reveals chronic parenchymal changes and cardiomegaly with improved aeration right lung base. No new infiltrates seen. Patient has been seen and followed by multiple consultants including Dr. Briones who performed a toe amputation on 02/27. Dr. Blanc is managing sepsis and MSSA bacteremia currently on Kefzol with repeat blood cultures positive. Patient has been seen by Dr. Yousif for chronic thrombocytopenia and anemia both in the safe range. We will change IV to KVO and patient will receive 1 dose of IV Lasix. Chest x-ray will be ordered for tomorrow. 03/02: Patient has been afebrile since yesterday at 8 AM. Heart rate 80, blood pressure 119/62, pulse ox 97% on room air. Repeat blood work reveals hemoglobin 9.2, platelet count 92. BUN 25 and creatinine 1.31. Blood sugars running betwe en 112 and 154. AST 38. Blood culture obtained on March 01 is positive for gram-positive cocci in clusters. CAT scan of the foot reveals diffuse soft tissue edema. Correlate for cellulitis. There appears to be destructive change involving the phalanx of the third digit highly suggestive of osteomyelitis. There is a fracture involving the intra-articular surface and base of proximal phalanx second digit. Chest x-ray reveals mild cardiomegaly. Small bilateral pleural effusions with adjacent atelectasis and/or consolidation. Correlate for mild heart failure. Large bands of atelectasis and lower lungs. Lasix 20 mg IV push ordered 1. DuoNeb treatments added as well as incentive spirometry. Echocardiogram has been ordered to rule out valvular abnormality, vegetation. Patient ate only 25% of her breakfast meals have been 75-100%. The patient is having stools and ileostomy consistent with her normal stools. monitoring manager has been a sinus rhythm. 03/03: Patient now has one blood culture obtained on March 02 are showing no growth at 24 hours. If this continues to show no growth, PICC line will be initiated. Patient will need IV antibiotics and may require discharge to [facility]. The patient was not interested in rehab but this will be revisited with her by the shoe caser. Patient has been afebrile for 2 days. Heart rate 72, blood pressure 125/58 pulse ox 99% on room air. Repeat blood work ordered for tomorrow. Patient does have some shortness of breath with activity. She continues to have output from ileostomy. monitoring manager is a sinus rhythm. Echocardiogram reveals EF of 55-60% with mild concentric left hypertrophy, mild mitral regurgitation, mild tricuspid regurgitation, borderline pulmonary hypertension. No mention of vegetation. Antibiotics have been changed to nafcillin by Dr. Blanc. 03/04: Patient has been seen by cardiology and is scheduled for XIAO today which was performed by Dr. Sandhu and revealed no evidence of infective endocarditis. Thickened mitral valve leaflets with mild mitral regurgitation. Trileaflet aortic valve without stenosis or regurgitation. Normal tricuspid valve and pulmonic valve. Intact left atrial appendage. Intact intra-atrial septum. Normal systolic function. No evidence of pericardial effusion. She has one blood culture with no growth at 48 hours and a second with no growth at 24 hours. PICC line ordered for Saturday per Dr. Blanc recommendations. Patient has been afebrile, heart rate 87, blood pressure 113/59, pulse ox 96% on room air. Repeat blood work reveals W BC 5.6, hemoglobin 9.5, platelet count 110. Potassium 3.3, BUN 29 and creatinine 1.46. Potassium will be replaced. Blood sugars running between 99 and 210. Patient denies any chest pain or shortness of breath. No lightheadedness or dizziness. She complains of back pain due to bed hospital bed. Patient is not interested in subacute rehab and is adamant that she will go home. She does have 100% coverage for IV antibiotics in the home. records management manager is working with her closely to make arrangements or anticipated discharge on Saturday. 03/05: Patient is sitting up in the recliner in no apparent distress today she did not eat much today for breakfast she is asking for some soup for lunch today she denies any chest pain or shortness breath she has no fever or chills, her blood cultures remained negative she will have a PIC line insertion on Saturday morning and then she can be discharged home for IV antibiotic, her left foot appears to be clean incision appears to be clean with no erythema sutures to be intact, no drainage at all pulse is +2 bilaterally. Patient does not have a very good appetite today and she thinks is related to her antibiotic she has no evidence of any thrush at this point. Objective - Vital Signs Vital signs: Vital Signs Temp 99.3 F 03/05/20 08:00 Pulse 67 03/05/20 11:14 Resp 18 03/05/20 04:00 BP 152/69 03/05/20 08:00 Pulse Ox 93 L 03/05/20 08:00 Intake & Output 03/04/20 03/05/20 03/05/20 18:59 06:59 18:59 Intake Total 760 Output Total 4600 3100 Balance -3840 -3100 Weight 72.6 kg Intake: IV 100 Oral 660 Output: Urine 900 500 Stool 3700 2600 Other: Voiding Method Bedside Commode Bedside Commode # Bowel Movements 1 - Exam Review Of Systems: Constitutional: No fever, no chills, no night sweats. No weight change. Report weakness, reports fatigue. EENT: No headache. No blurred vision or double vision, no loss of vision. No dizziness. No nasal drainage or congestion. No epistaxis. No sore throat. Lungs: Reports shortness of breath, cough, no sputum production. No wheezing. Cardiovascular: No chest pain, no lower extremity edema. No palpitations. No paroxysmal nocturnal dyspnea. No orthopnea. No lightheadedness or dizziness. No syncopal episodes. Abdominal: No abdominal pain. No nausea, vomiting. No diarrhea. No constipation. No bloody or tarry stools. No loss of appetite. Genitourinary: No dysuria, increased frequency, urgency. No urinary retention. Musculoskeletal: No myalgias. Reports muscle weakness, no gait dysfunction, no frequent falls. No back pain. No neck pain. Integumentary: Left foot wounds, no lesions. No rash or pruritus. No unusual bruising. No change in hair or nails. Neurologic: No aphasia. No facial droop. No change in mentation. No head injury. No headache. No paralysis. No paresthesia. Psychiatric: No depression. No anxiety. No mood swings. Endocrine: Reports abnormal blood sugars. Physical Examination Gen: This is a 64-year-old female. Patient appears to be comfortable. HEENT: Head is atraumatic, normocephalic. Pupils equal, round. Sclerae is anict efren. NECK: Supple. No JVD. No lymphadenopathy. No thyromegaly. LUNGS: Clear to auscultation. No wheezes or rhonchi. No intercostal retractions. HEART: Regular rate and rhythm. First heart sound is depressed, second heart sound is normal, 2/6 systolic ejection murmur at the left sternal border. ABDOMEN: Soft. Bowel sounds are present. No masses. No tenderness. Female catheter in place. Patient has ostomy with liquid stool output. EXTREMITIES: No pedal edema. No calf tenderness. Dorsalis pedis +[address] for left foot. NEUROLOGICAL: Patient is awake, alert and oriented x3. Cranial nerves 2 through 12 are grossly intact. - Labs CBC & Chem 7: 03/04/20 05:50 03/05/20 10:04 Labs: Abnormal Lab Results - Last 24 Hours (Table) 03/01/20 03/04/20 03/04/20 Range/Units 07:20 16:44 20:03 BUN (7-17) mg/dL Creatinine (0.52-1.04) mg/dL Glucose (74-99) mg/dL POC Glucose (mg/dL) 234 H 123 H (75-99) mg/dL Magnesium (1.6-2.3) mg/dL Erythropoietin 125.08 H (2.00-30.00) mIU/mL 03/05/20 03/05/20 Range/Units 10:04 11:57 BUN 21 H (7-17) mg/dL Creatinine 1.22 H (0.52-1.04) mg/dL Glucose 110 H (74-99) mg/dL POC Glucose (mg/dL) 117 H (75-99) mg/dL Magnesium 1.3 L (1.6-2.3) mg/dL Erythropoietin (2.00-30.00) mIU/mL Microbiology - Last 24 Hours (Table) 03/02/20 06:15 Blood Culture - Preliminary Blood No Growth after 72 hours 03/03/20 06:05 Blood Culture - Preliminary Blood No Growth after 48 hours Assessment and Plan Assessment: Assessment and Plan Plan: 1. Metabolic encephalopathy secondary to sepsis, resolved. 2. Fall at home. PT and OT consults. 3. Left third toe gangrene with underlying osteomyelitis status post amputation 02/27. Consult with Dr. Briones appreciated. 4. Sepsis and bacteremia secondary to diabetic foot ulcer left third toe status post amputation. Consult with Dr. Blanc appreciated. Continue nafcillin. Repeat blood cultures from March 02 and are showing no growth. CAT scan of the foot as above. Echocardiogram as above. XIAO revealed no vegetation. PICC line insertion scheduled for Saturday, hopefully she will be discharged home on Saturday. 5. Chronic anemia of chronic illness. we will continue with Aranesp 40 mg SC every week. 6. Recent history of stomal bleed. No active bleeding. 7. Chronic kidney disease stage III. Avoid nephrotoxic agents. we will continue to monitor very closely, nephrology is following. 8. Diabetes mellitus type 2. Continue Tradjenta 5 mg daily, NovoLog scale before meals and at bedtime 9. Hepatitis C in remission, stable. 10. Crohn's disease status post ileostomy in 2007 . we will continue with prednsione 20 mg orally daily. 11. Generalized anxiety disorder. Continue Xanax as needed. 12. Hypertension hypertensive cardiovascular disease. Continue Amlodipine 2.5 mg orally daily. 13. GI prophylaxis. Protonix 40 mg orally bid. 14. DVT prophylaxis. Knee-high CRISTHIAN hose. Heparin subcutaneously 5000 units SC Q 12 hours. 15. Fluid overload secondary to IV fluids. Lasix 20 g iv push 1, iv fluids discontinued. Duoneb treatments and incentive spirometry, resolved. 16. Acute hypoxic respiratory failure, present on admission with initial pulse ox of 77%. possibly due to fluid overload was treated with Lasix IV and now she is much better. 17. Hypomagnesemia. we will continue with Mag oside 400 mg orally bid and she did have Magnesium sulfate 3gr IVPBX 1. Discharge plan: Home with [facility] and home IV antibiotic therapy.
[2020-03-05 16:36] LABS: Glucose,Whole Blood 269 mg/dL (75-99)
--- NOTE | 2020-03-05 17:22 | PN ---
PROGRESS NOTE DATE OF SERVICE: 03/05/2020 REASON FOR FOLLOWUP: MSSA bacteremia with left third toe diabetic foot infection. INTERVAL HISTORY: The patient is currently afebrile. The patient is breathing comfortably. The patient denies having any chest pain. No shortness of breath or cough. Still complained of low back pain but no worsening. No nausea, no vomiting and no diarrhea. PHYSICAL EXAMINATION: Blood pressure 152/69 with a pulse of 95, temperature 99.3. She is 93% on room air. General description is a middle-aged female up in the chair in no distress. Respiratory system: Unlabored breathing, decreased breath sounds in the bases. No wheeze. Heart S1, S2. Regular rate and rhythm. Abdomen soft, no tenderness. LABS: BUN of 21, creatinine 1.22. Blood cultures 03/02 and 03/03 so far negative. DIAGNOSTIC IMPRESSION AND PLAN: Patient with MSSA bacteremia, source was left third toe diabetic foot infection, status post amputation of the toe. However, the patient did have persistent bacteremia for which the patient did have further workup including a XIAO that was negative. CT of the lumbosacral spine did not show anything suspicious and may ( ) of diskitis. The patient's blood culture has been negative. We will get the PICC line on Saturday to continue with IV cefazolin 2 grams q.8 hours with plan for a total of 6 week course of therapy and monitor clinical course closely. Questions were answered. STEFANO / LUIS ALFREDO: [id number] /
[2020-03-05 19:57] LABS: Glucose,Whole Blood 82 mg/dL (75-99)
[2020-03-05] MEDS: MIRTAZAPINE 15 MG TAB PO SCH (22:16)
[2020-03-05] MEDS: SERTRALINE 100 MG TAB PO SCH (22:16)
[2020-03-06] MEDS: NAFCILLIN 2 GM in DEXTROSE 5% IN WATER 100 ML IVPB SCH ×12 (01:53→22:13)
[2020-03-06 06:05] LABS: Anisocytosis Slight; Basophils % (A) 0 %; Eosinophils # (A) 0.1 k/uL (0-0.7); Eosinophils % (A) 1 %; HCT 31.9 % (34.0-46.0); HGB 9.9 gm/dL (11.4-16.0); Hypochromasia Moderate; Lymphocytes # (A) 0.8 k/uL (1.0-4.8); Lymphocytes % (A) 12 %; MCH 31.3 pg (25.0-35.0); MCHC 31.2 g/dL (31.0-37.0); MCV 100.4 fL (80.0-100.0); Macrocytosis Slight; Monocytes # (A) 0.3 k/uL (0-1.0); Monocytes % (A) 5 %; Neutrophils # (A) 5.2 k/uL (1.3-7.7); Neutrophils % (A) 81 %; Platelet Count 128 k/uL (150-450); Poikilocytosis Slight; RBC 3.17 m/uL (3.80-5.40); RDW 16.2 % (11.5-15.5); WBC 6.4 k/uL (3.8-10.6)
[2020-03-06 06:16] LABS: Glucose,Whole Blood 88 mg/dL (75-99)
[2020-03-06 06:18] LABS: Calcium 8.1 mg/dL (8.4-10.2); Magnesium 2.1 mg/dL (1.6-2.3); Potassium 3.9 mmol/L (3.5-5.1)
[2020-03-06] MEDS: INSULIN ASPART (NovoLOG) 100 UNIT/ML VIAL SQ SCH ×3 (06:58→17:23)
[2020-03-06] MEDS: PANTOPRAZOLE 40 MG TABLET PO SCH ×2 (06:58→17:22)
[2020-03-06] MEDS: IPRATROPIUM-ALBUTEROL 3 ML NEB INHALATION SCH ×3 (08:00→19:25)
[2020-03-06] MEDS: MAGNESIUM OXIDE 400 MG TAB PO SCH ×2 (08:48→22:13)
[2020-03-06] MEDS: amLODIPine 2.5 MG TAB PO SCH (08:48)
[2020-03-06] MEDS: ALPRAZolam 1 MG TAB PO SCH ×2 (08:48→22:13)
[2020-03-06] MEDS: HEPARIN SODIUM,PORCINE 5,000 UNIT/ML 1 ML VIAL SQ SCH ×2 (08:49→08:56)
[2020-03-06] MEDS: LINAGLIPTIN 5 MG TABLET PO SCH (08:49)
[2020-03-06] MEDS: FERROUS SULFATE 325 MG TAB PO SCH ×2 (08:49→22:17)
[2020-03-06] MEDS: ATORVASTATIN 20 MG TAB PO SCH (08:49)
[2020-03-06] MEDS: predniSONE 20 MG TAB PO SCH (08:49)
[2020-03-06] MEDS: CALCIUM CARB-VIT D 500MG-200UN 1 EACH TAB PO SCH (08:49)
--- NOTE | 2020-03-06 09:44 | P.PN ---
Subjective patient is seen in follow-up for acute kidney injury on chronic kidney disease. Renal function is back to baseline. Feels nauseated still not able to eat much. Good urine output. Vital signs are stable. General: The patient appeared well nourished and normally developed. HEENT: Head exam is unremarkable. Neck is without jugular venous distension. LUNGS: Lungs are clear to auscultation and percussion. Breath sounds decreased. HEART: Rate and Rhythm are regular. ABDOMEN: soft, nontender. EXTREMITITES: No edema. Objective - Vital Signs Vital signs: Vital Signs Temp 98.3 F 03/06/20 04:00 Pulse 88 03/06/20 04:00 Resp 18 03/06/20 04:00 BP 139/64 03/06/20 04:00 Pulse Ox 94 L 03/06/20 04:00 Intake & Output 03/05/20 03/06/20 03/06/20 18:59 06:59 18:59 Intake Total 440 100 Output Total 900 300 Balance 440 -900 -200 Weight 73.9 kg Intake: Intake, IV Titration 200 Amount Magnesium Sulfate-D5w Pmx 100 1 gm In Dextrose/Water 1 100ml.bag @ 100 mls/hr IVPB Q1H DARIA Rx#: [id number] Nafcillin 2 gm In 100 Dextrose 5% in Water 100 ml @ 50 mls/hr IVPB Q4HR DARIA Rx#:[id number] Oral 240 100 Output: Urine 300 Stool 600 300 Other: Voiding Method Bedside Commode Bedside Commode - Labs CBC & Chem 7: 03/06/20 05:33 03/06/20 05:33 Labs: Abnormal Lab Results - Last 24 Hours (Table) 03/05/20 03/05/20 03/05/20 Range/Units 10:04 11:57 16:35 RBC (3.80-5.40) m/uL Hgb (11.4-16.0) gm/dL Hct (34.0-46.0) % MCV (80.0-100.0) fL RDW (11.5-15.5) % Plt Count (150-450) k/uL Lymphocytes # (1.0-4.8) k/uL Sodium (137-145) mmol/L BUN 21 H (7-17) mg/dL Creatinine 1.22 H (0.52-1.04) mg/dL Glucose 110 H (74-99) mg/dL POC Glucose (mg/dL) 117 H 269 H (75-99) mg/dL Calcium (8.4-10.2) mg/dL Magnesium 1.3 L (1.6-2.3) mg/dL 03/06/20 03/06/20 Range/Units 05:33 05:33 RBC 3.17 L (3.80-5.40) m/uL Hgb 9.9 L (11.4-16.0) gm/dL Hct 31.9 L (34.0-46.0) % MCV 100.4 H (80.0-100.0) fL RDW 16.2 H (11.5-15.5) % Plt Count 128 L (150-450) k/uL Lymphocytes # 0.8 L (1.0-4.8) k/uL Sodium 136 L (137-145) mmol/L BUN 20 H (7-17) mg/dL Creatinine 1.27 H (0.52-1.04) mg/dL Glucose (74-99) mg/dL POC Glucose (mg/dL) (75-99) mg/dL Calcium 8.1 L (8.4-10.2) mg/dL Magnesium (1.6-2.3) mg/dL Microbiology - Last 24 Hours (Table) 03/02/20 06:15 Blood Culture - Preliminary Blood No Growth after 96 hours 03/03/20 06:05 Blood Culture - Preliminary Blood No Growth after 72 hours Assessment and Plan Plan: assessment: 1. Acute kidney injury mostly prerenal secondary to infection. creatinine was 1.8 on admission and is 1.27 today. 2. Chronic kidney disease stage III with baseline creatinine in the range of 1.2-1.4 secondary to diabetic kidney disease. 3. MSSA bacteremia source being left foot diabetic foot infection. Status post amputation of the left third toe. XIAO negative. Maintained on antibiotics per infectious disease. 4. Diabetes mellitus. 5. Anemia of chronic kidney disease maintained on Aranesp. 6. History of Crohn's disease. Has an ileostomy. Plan: encouraged oral intake. Avoid nephrotoxins. Cleared for PICC line placement on her dominant arm.
--- NOTE | 2020-03-06 10:24 | P.PN ---
Subjective Progress Note Date: 03/06/20 This is a 64-year-old female with past medical history of Crohn's disease status post ileostomy, type 2 diabetes, hepatitis C liver disease, osteoarthritis history of kidney stones, chronic iron deficiency anemia, with an issue with stomal bleed on and off, status post upper and lower endoscopy with capsule endoscopy with Dr. Stanton. Was recently discharged from hospital for stomal bleed. She presents today with altered mental status brought by . Patient fell today in the bathroom and was noticed to be slightly confused so she was brought to the emergency room where she was found to have fever of 103. When I saw the patient she was fully awake and oriented, slightly lethargic but she can answer questions appropriately. Vitas looks stable, blood pressure was on the low side 93/54, currently is better at 125/61, patient is saturating 99% on 4 L oxygen via nasal cannula. On admission he had a fever of 103.8. No leukocytosis and hemoglobin 10.0, INR is 2.6 and 1.6. BMP showing elevated creatinine at 1. liver enzymes are slightly up. Negative CT of the brain and CTA of the head and neck. Chest x-ray: No acute process shows some pulmonary vascular congestion. EKG showing sinus tachycardia at [address]-T changes. In emergency room region was started on Zosyn and vancomycin, later on Zosyn was stopped per infectious disease recommendation 02/29/20 Patient lying in bed comfortable, she is fully awake and oriented, no chest pain or dyspnea, tolerating diet well, no abdominal pain. No fever. Left lower extremity cellulitis is significantly improving. On reviewing further information patient states that she has gone endoscopy done for her about 2 years ago and she had only polyps. She was a little bit hypoxic so IV fluids were stopped and we'll check chest x- ray. Tissue culture and blood culture showing presumptive staph, patient is already on antibiotics cefepime, infectious disease on the case currently she is on cefazolin for ID team, also patient has underlying osteomyelitis per ID team, her ESR is elevated at 115 Patient was pancytopenia, Hematology of the case 03/01: Patient has been febrile, heart rate 67, blood pressure 120/66, pulse ox 98% on 2 L nasal cannula. Repeat blood work reveals hemoglobin of 7.5, platelet count not recorded. BUN 20 and creatinine 1.29. Blood sugars running between 131 and 208. Repeat chest x-ray reveals chronic parenchymal changes and cardiomegaly with improved aeration right lung base. No new infiltrates seen. Patient has been seen and followed by multiple consultants including Dr. Briones who performed a toe amputation on 02/27. Dr. Blanc is managing sepsis and MSSA bacteremia currently on Kefzol with repeat blood cultures positive. Patient has been seen by Dr. Yousif for chronic thrombocytopenia and anemia both in the safe range. We will change IV to KVO and patient will receive 1 dose of IV Lasix. Chest x-ray will be ordered for tomorrow. 03/02: Patient has been afebrile since yesterday at 8 AM. Heart rate 80, blood pressure 119/62, pulse ox 97% on room air. Repeat blood work reveals hemoglobin 9.2, platelet count 92. BUN 25 and creatinine 1.31. Blood sugars running betwe en 112 and 154. AST 38. Blood culture obtained on March 01 is positive for gram-positive cocci in clusters. CAT scan of the foot reveals diffuse soft tissue edema. Correlate for cellulitis. There appears to be destructive change involving the phalanx of the third digit highly suggestive of osteomyelitis. There is a fracture involving the intra-articular surface and base of proximal phalanx second digit. Chest x-ray reveals mild cardiomegaly. Small bilateral pleural effusions with adjacent atelectasis and/or consolidation. Correlate for mild heart failure. Large bands of atelectasis and lower lungs. Lasix 20 mg IV push ordered 1. DuoNeb treatments added as well as incentive spirometry. Echocardiogram has been ordered to rule out valvular abnormality, vegetation. Patient ate only 25% of her breakfast meals have been 75-100%. The patient is having stools and ileostomy consistent with her normal stools. monitor worker has been a sinus rhythm. 03/03: Patient now has one blood culture obtained on March 02 are showing no growth at 24 hours. If this continues to show no growth, PICC line will be initiated. Patient will need IV antibiotics and may require discharge to [facility]. The patient was not interested in rehab but this will be revisited with her by the employment evaluator/case manager. Patient has been afebrile for 2 days. Heart rate 72, blood pressure 125/58 pulse ox 99% on room air. Repeat blood work ordered for tomorrow. Patient does have some shortness of breath with activity. She continues to have output from ileostomy. monitor worker is a sinus rhythm. Echocardiogram reveals EF of 55-60% with mild concentric left hypertrophy, mild mitral regurgitation, mild tricuspid regurgitation, borderline pulmonary hypertension. No mention of vegetation. Antibiotics have been changed to nafcillin by Dr. Blanc. 03/04: Patient has been seen by cardiology and is scheduled for XIAO today which was performed by Dr. Sandhu and revealed no evidence of infective endocarditis. Thickened mitral valve leaflets with mild mitral regurgitation. Trileaflet aortic valve without stenosis or regurgitation. Normal tricuspid valve and pulmonic valve. Intact left atrial appendage. Intact intra-atrial septum. Normal systolic function. No evidence of pericardial effusion. She has one blood culture with no growth at 48 hours and a second with no growth at 24 hours. PICC line ordered for Saturday per Dr. Blanc recommendations. Patient has been afebrile, heart rate 87, blood pressure 113/59, pulse ox 96% on room air. Repeat blood work reveals W BC 5.6, hemoglobin 9.5, platelet count 110. Potassium 3.3, BUN 29 and creatinine 1.46. Potassium will be replaced. Blood sugars running between 99 and 210. Patient denies any chest pain or shortness of breath. No lightheadedness or dizziness. She complains of back pain due to bed hospital bed. Patient is not interested in subacute rehab and is adamant that she will go home. She does have 100% coverage for IV antibiotics in the home. imaging manager is working with her closely to make arrangements or anticipated discharge on Saturday. 03/05: Patient is sitting up in the recliner in no apparent distress today she did not eat much today for breakfast she is asking for some soup for lunch today she denies any chest pain or shortness breath she has no fever or chills, her blood cultures remained negative she will have a PIC line insertion on Saturday morning and then she can be discharged home for IV antibiotic, her left foot appears to be clean incision appears to be clean with no erythema sutures to be intact, no drainage at all pulse is +2 bilaterally. Patient does not have a very good appetite today and she thinks is related to her antibiotic she has no evidence of any thrush at this point. 03/06: Patient is sitting up in bed she is feeling extremely nauseated she is not able to eat or drink anything, we will try to switch her nafcillin to a different antibiotic as well as and as she may be having side effects from it, we will start the patient Zofran 4 mg IV push every 6 hours as needed, patient will have her PICC line placed tomorrow morning and hopefully she'll be discharged home after that. Objective - Vital Signs Vital signs: Vital Signs Temp 98.3 F 03/06/20 04:00 Pulse 88 03/06/20 04:00 Resp 18 03/06/20 04:00 BP 139/64 03/06/20 04:00 Pulse Ox 94 L 03/06/20 04:00 Intake & Output 03/05/20 03/06/20 03/06/20 18:59 06:59 18:59 Intake Total 440 100 Output Total 900 300 Balance 440 -900 -200 Weight 73.9 kg Intake: Intake, IV Titration 200 Amount Magnesium Sulfate-D5w Pmx 100 1 gm In Dextrose/Water 1 100ml.bag @ 100 mls/hr IVPB Q1H [facility] Rx#: [id number] Nafcillin 2 gm In 100 Dextrose 5% in Water 100 ml @ 50 mls/hr IVPB Q4HR REPLACED BY [facility] Rx#:[id number] Oral 240 100 Output: Urine 300 Stool 600 300 Other: Voiding Method Bedside Commode Bedside Commode - Exam Review Of Systems: Constitutional: No fever, no chills, no night sweats. No weight change. Report weakness, reports fatigue. EENT: No headache. No blurred vision or double vision, no loss of vision. No dizziness. No nasal drainage or congestion. No epistaxis. No sore throat. Lungs: Reports shortness of breath, cough, no sputum production. No wheezing. Cardiovascular: No chest pain, no lower extremity edema. No palpitations. No paroxysmal nocturnal dyspnea. No orthopnea. No lightheadedness or dizziness. No syncopal episodes. Abdominal: No abdominal pain. No nausea, vomiting. No diarrhea. No constipation. No bloody or tarry stools. No loss of appetite. Genitourinary: No dysuria, increased frequency, urgency. No urinary retention. Musculoskeletal: No myalgias. Reports muscle weakness, no gait dysfunction, no frequent falls. No back pain. No neck pain. Integumentary: Left foot wounds, no lesions. No rash or pruritus. No unusual bruising. No change in hair or nails. Neurologic: No aphasia. No facial droop. No change in mentation. No head injury. No headache. No paralysis. No paresthesia. Psychiatric: No depression. No anxiety. No mood swings. Endocrine: Reports abnormal blood sugars. Physical Examination Gen: This is a 64-year-old female. Patient appears to be comfortable. HEENT: Head is atraumatic, normocephalic. Pupils equal, round. Sclerae is anicteric. NECK: Supple. No JVD. No lymphadenopathy. No thyromegaly. LUNGS: Clear to auscultation. No wheezes or rhonchi. No intercostal retractions. HEART: Regular rate and rhythm. First heart sound is depressed, second heart sound is normal, 2/6 systolic ejection murmur at the left sternal border. ABDOMEN: Soft. Bowel sounds are present. No masses. No tenderness. Female catheter in place. Patient has ostomy with liquid stool output. EXTREMITIES: No pedal edema. No calf tenderness. Dorsalis pedis +1 bi laterally. Dressing in place for left foot. NEUROLOGICAL: Patient is awake, alert and oriented x3. Cranial nerves 2 through 12 are grossly intact. - Labs CBC & Chem 7: 03/06/20 05:33 03/06/20 05:33 Labs: Abnormal Lab Results - Last 24 Hours (Table) 03/05/20 03/05/20 03/05/20 Range/Units 10:04 11:57 16:35 RBC (3.80-5.40) m/uL Hgb (11.4-16.0) gm/dL Hct (34.0-46.0) % MCV (80.0-100.0) fL RDW (11.5-15.5) % Plt Count (150-450) k/uL Lymphocytes # (1.0-4.8) k/uL Sodium (137-145) mmol/L BUN 21 H (7-17) mg/dL Creatinine 1.22 H (0.52-1.04) mg/dL Glucose 110 H (74-99) mg/dL POC Glucose (mg/dL) 117 H 269 H (75-99) mg/dL Calcium (8.4-10.2) mg/dL Magnesium 1.3 L (1.6-2.3) mg/dL 03/06/20 03/06/20 Range/Units 05:33 05:33 RBC 3.17 L (3.80-5.40) m/uL Hgb 9.9 L (11.4-16.0) gm/dL Hct 31.9 L (34.0-46.0) % MCV 100.4 H (80.0-100.0) fL RDW 16.2 H (11.5-15.5) % Plt Count 128 L (150-450) k/uL Lymphocytes # 0.8 L (1.0-4.8) k/uL Sodium 136 L (137-145) mmol/L BUN 20 H (7-17) mg/dL Creatinine 1.27 H (0.52-1.04) mg/dL Glucose (74-99) mg/dL POC Glucose (mg/dL) (75-99) mg/dL Calcium 8.1 L (8.4-10.2) mg/dL Magnesium (1.6-2.3) mg/dL Microbiology - Last 24 Hours (Table) 03/02/20 06:15 Blood Culture - Preliminary Blood No Growth after 96 hours 03/03/20 06:05 Blood Culture - Preliminary Blood No Growth after 72 hours Assessment and Plan Assessment: Assessment and Plan Plan: 1. Acute kidney injury on chronic kidney disease stage III. appears to be back to baseline. 2. Persistent nausea. Start the patient on Zofran 4 mg every 6 hours, try to switch Nafcillin to a different antibiotic at this point in time we will discuss with infectious disease. 3. Postoperative day #7 status post left third toe amputation due to to gangrened with osteomyelitis . Continue local care for 4. Methicillin sensitive Staphylococcus aureus bacteremia. Continue patient on IV antibiotic we'll try to switch her to different antibiotic as the patient is extremely nauseated from it, XIAO was negative so his transthoracic echocardiogram, repeated blood cultures are negative so far, The morning 5. Chronic anemia of chronic illness. we will continue with Aranesp 40 mg SC every week. 6. Recent history of stomal bleed. No active bleeding. 7. Chronic kidney disease stage III. Avoid nephrotoxic agents. we will c jeffinue to monitor very closely, nephrology is following. 8. Diabetes mellitus type 2. Continue Tradjenta 5 mg daily, NovoLog scale before meals and at bedtime 9. Hepatitis C in remission, stable. 10. Crohn's disease status post ileostomy in 2007 . we will continue with prednsione 20 mg orally daily. 11. Generalized anxiety disorder. Continue Xanax as needed. 12. Hypertension hypertensive cardiovascular disease. Continue Amlodipine 2.5 mg orally daily. 13. GI prophylaxis. Protonix 40 mg orally bid. 14. DVT prophylaxis. Knee-high CRISTHIAN hose. Heparin subcutaneously 5000 units SC Q 12 hours. 15. Fluid overload secondary to IV fluids. Lasix 20 g iv push 1, iv fluids discontinued. Duoneb treatments and incentive spirometry, resolved. 16. Acute hypoxic respiratory failure, present on admission with initial pulse ox of 77%. possibly due to fluid overload was treated with Lasix IV and now she is much better. 17. Hypomagnesemia. we will continue with Mag oside 400 mg orally bid and she did have Magnesium sulfate 3gr IVPBX 1. Discharge plan: Home with [facility] and home IV antibiotic therapy after inserting PICC line in AM.
[2020-03-06 11:28] VITALS: BMI 26.3
--- NOTE | 2020-03-06 11:47 | P.PN ---
Subjective This is Kenia Miller PA-C dictating a progress note on this patient The patient was interviewed and examined by me as well as by Dr. Puente Case discussed with Dr. Puente and he agrees with the plan of care HPI/interval history Patient is a 64-year-old female with a history significant for Crohn's disease, diabetes, hypertension who presented after syncopal episode. She was found to be febrile and admitted for treatment of sepsis secondary to Staphylococcus aureus. she underwent a XIAO which did not show any evidence of endocarditis. She is awaiting a PICC line placement tomorrow for continuation of her IV antibiotics. Yesterday I added amlodipine for her blood pressure and it seems to have improved. Patient seen and examined resting in bed. Continues to complain of a poor appetite and feeling weak as a result of that. Denies any chest pain or shortness of breath. EXAMINATION Patient is afebrile, pulse 60, respiration 18, blood pressure 120/81, oxygen titration 97% on room air Patient seen and examined resting in bed, in no acute distress Lungs are clear to auscultation bilaterally, no wheezing rhonchi or crackles Heart is regular, normal S1 and S2, no audible murmurs No elevated JVD Left foot is wrapped in gauze No edema the right foot REVIEW OF LABS, ECG WBC 6.4, hemoglobin 9.9, platelets 128, potassium 3.9, BUN 20, creatinine 1.27, magnesium 2.1 IMPRESSION / ASSESSMENT: #1 sepsis secondary to methicillin susceptible Staphylococcus aureus bacteremia, source thought to be third left toe diabetic foot infection, status post amputation, on IV antibiotics, infectious disease following #2 diabetes #3 Crohn's disease status post ostomy #4 hypertension, reasonably well controlled #5 no evidence of endocarditis on XIAO #6 acute kidney injury, improving, nephrology following #7 hypomagnesemia, resolved PLAN: Continue the current medication regimen In the future once her kidneys improved consider low-dose RACHID inhibitor or angiotensin receptor jacques for renal protection because she does have diabetes Management of sepsis per primary care team and infectious disease Objective - Vital Signs Vital signs: Vital Signs Temp 98.6 F 03/06/20 08:00 Pulse 72 03/06/20 10:56 Resp 18 03/06/20 04:00 BP 129/81 03/06/20 08:00 Pulse Ox 97 03/06/20 08:00 Intake & Output 03/05/20 03/06/20 03/06/20 18:59 06:59 18:59 Intake Total 440 100 Output Total 900 300 Balance 440 -900 -200 Weight 73.9 kg 73.9 kg Intake: Intake, IV Titration 200 Amount Magnesium Sulfate-D5w Pmx 100 1 gm In Dextrose/Water 1 100ml.bag @ 100 mls/hr IVPB Q1H [facility] Rx#: [id number] Nafcillin 2 gm In 100 Dextrose 5% in Water 100 ml @ 50 mls/hr IVPB Q4HR [facility] Rx#:[id number] Oral 240 100 Output: Urine 300 Stool 600 300 Other: Voiding Method Bedside Commode Bedside Commode - Labs CBC & Chem 7: 03/06/20 05:33 03/06/20 05:33 Labs: Abnormal Lab Results - Last 24 Hours (Table) 03/05/20 03/05/20 03/06/20 Range/Units 11:57 16:35 05:33 RBC (3.80-5.40) m/uL Hgb (11.4-16.0) gm/dL Hct (34.0-46.0) % MCV (80.0-100.0) fL RDW (11.5-15.5) % Plt Count (150-450) k/uL Lymphocytes # (1.0-4.8) k/uL Sodium 136 L (137-145) mmol/L BUN 20 H (7-17) mg/dL Creatinine 1.27 H (0.52-1.04) mg/dL POC Glucose (mg/dL) 117 H 269 H (75-99) mg/dL Calcium 8.1 L (8.4-10.2) mg/dL 03/06/20 Range/Units 05:33 RBC 3.17 L (3.80-5.40) m/uL Hgb 9.9 L (11.4-16.0) gm/dL Hct 31.9 L (34.0-46.0) % MCV 100.4 H (80.0-100.0) fL RDW 16.2 H (11.5-15.5) % Plt Count 128 L (150-450) k/uL Lymphocytes # 0.8 L (1.0-4.8) k/uL Sodium (137-145) mmol/L BUN (7-17) mg/dL Creatinine (0.52-1.04) mg/dL POC Glucose (mg/dL) (75-99) mg/dL Calcium (8.4-10.2) mg/dL Microbiology - Last 24 Hours (Table) 03/02/20 06:15 Blood Culture - Preliminary Blood No Growth after 96 hours 03/03/20 06:05 Blood Culture - Preliminary Blood No Growth after 72 hours
[2020-03-06 12:12] LABS: Glucose,Whole Blood 135 mg/dL (75-99)
[2020-03-06] MEDS: ONDANSETRON 4 MG/2 ML VIAL IVP PRN ×2 (12:51→19:08)
[2020-03-06] MEDS: SODIUM CHLORIDE 0.9% 1,000 ML IV SCH (12:52)
[2020-03-06 17:00] LABS: Glucose,Whole Blood 182 mg/dL (75-99)
[2020-03-06 20:37] LABS: Glucose,Whole Blood 92 mg/dL (75-99)
[2020-03-06] MEDS: SERTRALINE 100 MG TAB PO SCH (22:14)
[2020-03-06] MEDS: MIRTAZAPINE 15 MG TAB PO SCH (22:14)
[2020-03-06] MEDS: HYDROcodone/APAP 5-325MG 1 EACH TAB PO PRN (22:29)
[2020-03-07] MEDS: HEPARIN SODIUM,PORCINE 5,000 UNIT/ML 1 ML VIAL SQ SCH ×3 (03:50→21:24)
[2020-03-07] MEDS: INSULIN ASPART (NovoLOG) 100 UNIT/ML VIAL SQ SCH ×5 (03:50→21:25)
[2020-03-07] MEDS: NAFCILLIN 2 GM in DEXTROSE 5% IN WATER 100 ML IVPB SCH ×6 (03:52→08:27)
[2020-03-07] MEDS: ONDANSETRON 4 MG/2 ML VIAL IVP PRN ×3 (05:34→21:34)
[2020-03-07 06:17] LABS: Glucose,Whole Blood 101 mg/dL (75-99)
[2020-03-07] MEDS: PANTOPRAZOLE 40 MG TABLET PO SCH ×2 (07:28→17:08)
--- NOTE | 2020-03-07 08:08 | P.DS ---
Providers Date of admission: 02/27/20 08:07 Expected date of discharge: 03/08/20 Attending physician: Antonio Kothari Consults: 02/27/20 08:10 Consult Physician Urgent Consulting Provider: Angie Blanc Consult Reason/Comments: Sepsis Do you want consulting provider notified?: Yes 02/27/20 19:04 Consult Physician Routine Consulting Provider: Tyron Yousif Consult Reason/Comments: hypercoagulopathy Do you want consulting provider notified?: Yes, Notify in am 02/28/20 08:48 Consult Physician Routine Consulting Provider: Malachi Briones Consult Reason/Comments: ISCHEMIC TOE Do you want consulting provider notified?: Yes 03/03/20 17:11 Consult Physician Routine Consulting Provider: Axel Puente Consult Reason/Comments: XIAO, possible endocarditis Do you want consulting provider notified?: Yes 03/04/20 14:05 Consult Physician Routine Consulting Provider: Cole Sweeney Consult Reason/Comments: clearance for PICC scheduled for 03/07 Do you want consulting provider notified?: Yes Primary care physician: Antonio Kothari Hospital Course: This is a 64-year-old female with past medical history of Crohn's disease status post ileostomy, type 2 diabetes, hepatitis C liver disease, osteoarthritis history of kidney stones, chronic iron deficiency anemia, with an issue with stomal bleed on and off, status post upper and lower endoscopy with capsule endoscopy with Dr. Stanton. Was recently discharged from hospital for stomal bleed. She presents today with altered mental status brought by . Patient fell today in the bathroom and was noticed to be slightly confused so she was brought to the emergency room where she was found to have fever of 103. When I saw the patient she was fully awake and oriented, slightly lethargic but she can answer questions appropriately. Vitas looks stable, blood pressure was on the low side 93/54, currently is better at 125/61, patient is saturating 99% on 4 L oxygen via nasal cannula. On admission he had a fever of 103.8. No leukocytosis and hemoglobin 10.0, INR is 2.6 and 1.6. BMP showing elevated creatinine at 1. liver enzymes are slightly up. Negative CT of the brain and CTA of the head and neck. Chest x-ray: No acute process shows some pulmonary vascular congestion. EKG showing sinus tachycardia at [address]-T changes. In emergency room region was started on Zosyn and vancomycin, later on Zosyn was stopped per infectious disease recommendation 02/29/20 Patient lying in bed comfortable, she is fully awake and oriented, no chest pain or dyspnea, tolerating diet well, no abdominal pain. No fever. Left lower extremity cellulitis is significantly improving. On reviewing further information patient states that she has gone endoscopy done for her about 2 years ago and she had only polyps. She was a little bit hypoxic so IV fluids were stopped and we'll check chest x- ray. Tissue culture and blood culture showing presumptive staph, patient is already on antibiotics cefepime, infectious disease on the case currently she is on cefazolin for ID team, also patient has underlying osteomyelitis per ID team, her ESR is elevated at 115 Patient was pancytopenia, Hematology of the case 03/01: Patient has been febrile, heart rate 67, blood pressure 120/66, pulse ox 98% on 2 L nasal cannula. Repeat blood work reveals hemoglobin of 7.5, platelet count not recorded. BUN 20 and creatinine 1.29. Blood sugars running between 131 and 208. Repeat chest x-ray reveals chronic parenchymal changes and cardiomegaly with improved aeration right lung base. No new infiltrates seen. Patient has been seen and followed by multiple consultants including Dr. Briones who performed a toe amputation on 02/27. Dr. Blanc is managing sepsis and MSSA bacteremia currently on Kefzol with repeat blood cultures positive. Patient has been seen by Dr. Yousif for chronic thrombocytopenia and anemia both in the safe range. We will change IV to KVO and patient will receive 1 dose of IV Lasix. Chest x-ray will be ordered for tomorrow. 03/02: Patient has been afebrile since yesterday at 8 AM. Heart rate 80, blood pressure 119/62, pulse ox 97% on room air. Repeat blood work reveals hemoglobin 9.2, platelet count 92. BUN 25 and creatinine 1.31. Blood sugars running between 112 and 154. AST 38. Blood culture obtained on March 01 is positive for gram-positive cocci in clusters. CAT scan of the foot reveals diffuse soft tissue edema. Correlate for cellulitis. There appears to be destructive change involving the phalanx of the third digit highly suggestive of osteomyelitis. There is a fracture involving the intra-articular surface and base of proximal phalanx second digit. Chest x-ray reveals mild cardiomegaly. Small bilateral pleural effusions with adjacent atelectasis and/or consolidation. Correlate for mild heart failure. Large bands of atelectasis and lower lungs. Lasix 20 mg IV push ordered 1. DuoNeb treatments added as well as incentive spirometry. Echocardiogram has been ordered to rule out valvular abnormality, vegetation. Patient ate only 25% of her breakfast meals have been 75-100%. The patient is having stools and ileostomy consistent with her normal stools. 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 03/03: Patient now has one blood culture obtained on March 02 are showing no growth at 24 hours. If this continues to show no growth, PICC line will be initiated. Patient will need IV antibiotics and may require discharge to [facility]. The patient was not interested in rehab but this will be revisited with her by the nurse case manager. Patient has been afebrile for 2 days. Heart rate 72, blood pressure 125/58 pulse ox 99% on room air. Repeat blood work ordered for tomorrow. Patient does have some shortness of breath with activity. She continues to have output from ileostomy. 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 Echocardiogram reveals EF of 55-60% with mild concentric left hypertrophy, mild mitral regurgitation, mild tricuspid regurgitation, borderline pulmonary hypertension. No mention of vegetation. Antibiotics have been changed to nafcillin by Dr. Blanc. 03/04: Patient has been seen by cardiology and is scheduled for XIAO today which was performed by Dr. Sandhu and revealed no evidence of infective endocarditis. Thickened mitral valve leaflets with mild mitral regurgitation. Trileaflet aortic valve without stenosis or regurgitation. Normal tricuspid valve and pulmonic valve. Intact left atrial appendage. Intact intra-atrial septum. Normal systolic function. No evidence of pericardial effusion. She has one blood culture with no growth at 48 hours and a second with no growth at 24 hours. PICC line ordered for Saturday per Dr. Blanc recommendations. Patient has been afebrile, heart rate 87, blood pressure 113/59, pulse ox 96% on room air. Repeat blood work reveals W BC 5.6, hemoglobin 9.5, platelet count 110. Potassium 3.3, BUN 29 and creatinine 1.46. Potassium will be replaced. Blood sugars running between 99 and 210. Patient denies any chest pain or shortness of breath. No lightheadedness or dizziness. She complains of back pain due to bed hospital bed. Patient is not interested in subacute rehab and is adamant that she will go home. She does have 100% coverage for IV antibiotics in the home. manager technical support is working with her closely to make arrangements or anticipated discharge on Saturday. 03/05: Patient is sitting up in the recliner in no apparent distress today she did not eat much today for breakfast she is asking for some soup for lunch today she denies any chest pain or shortness breath she has no fever or chills, her blood cultures remained negative she will have a PIC line insertion on Saturday morning and then she can be discharged home for IV antibiotic, her left foot appears to be clean incision appears to be clean with no erythema sutures to be intact, no drainage at all pulse is +2 bilaterally. Patient does not have a very good appetite today and she thinks is related to her antibiotic she has no evidence of any thrush at this point. 03/06: Patient is sitting up in bed she is feeling extremely nauseated she is not able to eat or drink anything, we will try to switch her nafcillin to a different antibiotic as well as and as she may be having side effects from it, we will start the patient Zofran 4 mg IV push every 6 hours as needed, patient will have her PICC line placed tomorrow morning and hopefully she'll be discharged home after that. 03/07: Patient is scheduled for PICC line insertion today. Nephrology is following and has cleared patient for this procedure. Nausea is improved with Zofran. Patient has been afebrile, heart rate 91, blood pressure 120/50, pulse ox 97% on room air. Repeat blood work reveals WBC 7.7, hemoglobin 9.6, platelet count 152. Sodium 131, CO2 21, BUN 30 and creatinine 2.4. Blood sugars are running 134-221. Anticipate discharge home once arrangements are completed for home IV antibiotics. PICC has been inserted by IR and nurse case manager has made arrangements for home IV antibiotics. Patient is requesting norco for pain which will be sent from the office. Patient will be discharged home today in stable condition. Discharge diagnoses: 1. Acute kidney injury on chronic kidney disease stage III. 2. Persistent nausea. 3. 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 4. Methicillin sensitive Staphylococcus aureus bacteremia. 5. Chronic anemia of chronic illness. 6. Recent history of stomal bleed. 7. Chronic kidney disease stage III. 8. Diabetes mellitus type 2. 9. Hepatitis C in remission. 10. Crohn's disease status post ileostomy in 2007. 11. Generalized anxiety disorder. 12. Hypertension hypertensive cardiovascular disease. 13. Metabolic encephalopathy secondary to sepsis, resolved. 14. Persistent nausea. 15. Fluid overload secondary to IV fluids. 16. Acute hypoxic respiratory failure, present on admission with initial pulse ox of 77% possibly due to fluid overload. 17. Hypomagnesemia 18. Rib pain due to fall at home. Discharge plan: Home with [facility] and home IV antibiotic therapy. Patient Condition at Discharge: Fair Plan - Discharge Summary Discharge Rx Participant: Yes New Discharge Prescriptions: New Artificial Tears-Hypromellose [Artificial Tear Drops] 2 drops BOTH EYES QID PRN bottle PRN Reason: Dry Eye(S) amLODIPine [Norvasc] 2.5 mg PO DAILY #30 tab Pantoprazole [Protonix] 40 mg PO AC-BID #60 tablet.dr Acetaminophen Tab [Tylenol] 650 mg PO Q4HR PRN tab PRN Reason: Fever And/ Or Pain Ondansetron HCl [Zofran] 4 mg PO Q8H PRN #45 tab PRN Reason: Nausea And Vomiting Continue Mirtazapine [Remeron] 15 mg PO HS Sertraline HCl [Zoloft] 100 mg PO HS Loperamide HCl [Imodium A-D] 2 mg PO TID PRN PRN Reason: Diarrhea Ferrous Sulfate [Iron (65 MG Elemental)] 325 mg PO DAILY PRN PRN Reason: Bleeding Magnesium Oxide [Mag-Ox] 250 mg PO DAILY Calcium Carbonate/Vitamin D3 [Calcium 600-Vit D3 800 Caplet] 1 tab PO DAILY Cholecalciferol (Vitamin D3) [Vitamin D3] 2,000 unit PO DAILY #30 capsule predniSONE [Deltasone] 20 mg PO DAILY #30 tab sitaGLIPtin PHOSPHATE [Januvia] 50 mg PO DAILY ALPRAZolam [Xanax] 1 mg PO BID allopurinoL [Zyloprim] 100 mg PO DAILY Rosuvastatin [Crestor] 10 mg PO DAILY Cranberry (Unknown Strength) 1 tab PO DAILY Vitamin B-12 (Unknown Strength) 1 tab PO DAILY Discontinued lisinopriL [Zestril] 2.5 mg PO DAILY Discharge Medication List Mirtazapine [Remeron] 15 mg PO HS 06/11/17 [History] Sertraline HCl [Zoloft] 100 mg PO HS 07/26/17 [History] Loperamide HCl [Imodium A-D] 2 mg PO TID PRN 05/01/18 [History] Calcium Carbonate/Vitamin D3 [Calcium 600-Vit D3 800 Caplet] 1 tab PO DAILY 06/19/19 [History] Ferrous Sulfate [Iron (65 MG Elemental)] 325 mg PO DAILY PRN 06/19/19 [History] Magnesium Oxide [Mag-Ox] 250 mg PO DAILY 06/19/19 [History] Cholecalciferol (Vitamin D3) [Vitamin D3] 2,000 unit PO DAILY #30 capsule 06/29/19 [Rx] predniSONE [Deltasone] 20 mg PO DAILY #30 tab 06/30/19 [Rx] ALPRAZolam [Xanax] 1 mg PO BID 01/26/20 [History] Cranberry (Unknown Strength) 1 tab PO DAILY 01/26/20 [History] Rosuvastatin [Crestor] 10 mg PO DAILY 01/26/20 [History] Vitamin B-12 (Unknown Strength) 1 tab PO DAILY 01/26/20 [History] allopurinoL [Zyloprim] 100 mg PO DAILY 01/26/20 [History] sitaGLIPtin PHOSPHATE [Januvia] 50 mg PO DAILY 01/26/20 [History] Acetaminophen Tab [Tylenol] 650 mg PO Q4HR PRN tab 03/07/20 [Rx] Artificial Tears-Hypromellose [Artificial Tear Drops] 2 drops BOTH EYES QID PRN bottle 03/07/20 [Rx] Ondansetron HCl [Zofran] 4 mg PO Q8H PRN #45 tab 03/07/20 [Rx] Pantoprazole [Protonix] 40 mg PO AC-BID #60 tablet.dr 03/07/20 [Rx] amLODIPine [Norvasc] 2.5 mg PO DAILY #30 tab 03/07/20 [Rx] Follow up Appointment(s)/Referral(s): Antonio Kothari MD [Primary Care Provider] - 1 Week [facility], [NON-STAFF] - [facility]Infusion [NON-STAFF] - Antwon Roth MD [STAFF PHYSICIAN] - 4 Weeks Patient Instructions/Handouts: Sepsis (GEN), Surgical Site Infections (DC), Pneumonia (DC) Discharge Disposition: HOME WITH HOME HEALTH SERVICES
[2020-03-07] MEDS: MAGNESIUM OXIDE 400 MG TAB PO SCH ×2 (08:41→21:34)
[2020-03-07] MEDS: predniSONE 20 MG TAB PO SCH (08:41)
[2020-03-07] MEDS: ALPRAZolam 1 MG TAB PO SCH ×2 (08:41→21:34)
[2020-03-07] MEDS: amLODIPine 2.5 MG TAB PO SCH (08:41)
[2020-03-07] MEDS: CALCIUM CARB-VIT D 500MG-200UN 1 EACH TAB PO SCH (08:41)
[2020-03-07] MEDS: FERROUS SULFATE 325 MG TAB PO SCH ×2 (08:41→21:34)
[2020-03-07] MEDS: LINAGLIPTIN 5 MG TABLET PO SCH (08:41)
[2020-03-07] MEDS: ATORVASTATIN 20 MG TAB PO SCH (08:41)
[2020-03-07] MEDS: HYDROcodone/APAP 5-325MG 1 EACH TAB PO PRN ×3 (08:41→21:37)
[2020-03-07] MEDS: IPRATROPIUM-ALBUTEROL 3 ML NEB INHALATION SCH ×3 (08:45→21:57)
--- NOTE | 2020-03-07 11:35 | PN ---
PROGRESS NOTE DATE OF SERVICE: 03/06/2020 REASON FOR FOLLOWUP: MSSA bacteremia from diabetic foot infection. INTERVAL HISTORY: Patient is currently afebrile. The patient is feeling better. Breathing comfortably. She did mention the nausea improved after she was given Zofran. No chest pain, shortness of breath or cough. No abdominal pain or pain to the left foot. PHYSICAL EXAMINATION: Blood pressure 118/55 with a pulse of 140, temperature 98.6, she is 92% on room air. General description is a middle-aged female, up in the bed in no distress. RESPIRATORY SYSTEM: Unlabored breathing, clear to auscultation anteriorly. HEART: S1, S2. Regular rate and rhythm. ABDOMEN: Soft, no tenderness. Left foot infection, dressed up with no obvious drainage. LABS: Hemoglobin 9.8, white count 6.4, BUN of 20, creatinine 1.27. Blood cultures 03/02 and 03/03 are negative. DIAGNOSTIC IMPRESSION AND PLAN: Patient with MSSA bacteremia, source likely left third toe diabetic foot infection, status post amputation. Did have extensive workup including a XIAO as well as CT with negative for any infection. The patient has MSSA bacteremia. She will get a PICC line tomorrow. Antibiotic was switched to cefazolin 2 g q.8 to finish a 6-week course of therapy. Continue supportive care. MMODL / IJN: [id number] /
[2020-03-07 11:56] LABS: Glucose,Whole Blood 203 mg/dL (75-99)
[2020-03-07 12:51] LABS: Anisocytosis Slight; Basophils % (A) 1 %; Eosinophils % (A) 0 %; HCT 30.6 % (34.0-46.0); HGB 9.6 gm/dL (11.4-16.0); Hypochromasia Marked; Lymphocytes # (A) 0.3 k/uL (1.0-4.8); Lymphocytes % (A) 4 %; MCH 31.7 pg (25.0-35.0); MCHC 31.4 g/dL (31.0-37.0); MCV 100.7 fL (80.0-100.0); Macrocytosis Slight; Mean Platelet Volume 8.2; Monocytes # (A) 0.4 k/uL (0-1.0); Monocytes % (A) 5 %; Neutrophils # (A) 6.9 k/uL (1.3-7.7); Neutrophils % (A) 90 %; Platelet Count 152 k/uL (150-450); Poikilocytosis Slight; RBC 3.04 m/uL (3.80-5.40); RDW 16.7 % (11.5-15.5); WBC 7.7 k/uL (3.8-10.6)
[2020-03-07 13:10] LABS: Albumin 2.9 g/dL (3.5-5.0); Calcium 8.2 mg/dL (8.4-10.2); Potassium 4.3 mmol/L (3.5-5.1); Total Bilirubin 0.8 mg/dL (0.2-1.3); Total Protein 6.4 g/dL (6.3-8.2)
--- NOTE | 2020-03-07 14:47 | PN ---
PROGRESS NOTE DATE OF SERVICE: 03/07/2020 REASON FOR FOLLOWUP: Left diabetic foot infection with MSSA bacteremia. INTERVAL HISTORY: The patient is currently afebrile. Patient is breathing comfortably. The patient denies having any chest pain. No shortness of breath or cough. No nausea, no vomiting, no abdominal pain, no diarrhea. PHYSICAL EXAMINATION: Blood pressure is 128/58 with a pulse of 72, temperature 99, she is 98% on room air. General description is a middle-aged female up in the bed, in no distress. RESPIRATORY SYSTEM: Unlabored breathing, clear to auscultation anteriorly. HEART: S1, S2. Regular rate and rhythm. ABDOMEN: Soft, no tenderness. Left foot is currently dressed up. No obvious drainage on the dressing. LABS: No new labs have been obtained today. DIAGNOSTIC IMPRESSION AND PLAN: Patient with left diabetic foot infection, third toe, status post amputation with MSSA bacteremia. In view of the persistent bacteremia, the patient did have further workup including a XIAO and CT of lumbar spine that was negative. She will be switched over to cefazolin 2 g to continue for another 4 weeks and close outpatient followup, weekly monitor CBC, BMP and sedimentation rate. MMODL / IJN: [id number] /
[2020-03-07] MEDS ORDERED: LIDOCAINE 1% INJ 10MG/ML (20 ML MDV) ONE (15:11)
--- NOTE | 2020-03-07 15:32 | PN ---
PROGRESS NOTE Patient is seen for followup for acute kidney injury on top of chronic kidney disease. Her serum creatinine has been as low as 1.2 mg/dL. Patient is comfortable. She denies any significant complaints, although I see today the serum creatinine is up to 2.4. The patient states she has been eating well. She the patient states she is trying to increase her oral intake. She is not on any not on any IV fluids currently. Urine output over 24 hours about 1.8 L. PHYSICAL EXAMINATION: Patient is comfortable. Blood pressure is 107/57, heart rate 95 per minute, she is afebrile. Examination of the heart S1, S2. Examination of the lungs, bilateral breath sounds are heard. Abdomen is soft, nontender. Examination of the lower extremities shows no significant edema. SINGLE RESOURCE BOSS exam grossly intact. LABS: Show sodium of 131, potassium 4.3, chloride 102, BUN 30, creatinine 2.4, hemoglobin 9.6 g/dL. ASSESSMENT: 1. Acute kidney injury. Renal function had improved; however, serum creatinine is again increased to 2.4 today. The patient has been voiding well. She denies any other complaints. She was on nafcillin, which is now discontinued, which is appropriate. 2. Chronic kidney disease stage 3 secondary to diabetic kidney disease, baseline creatinine 1.2-1.4. 3. Type 2 diabetes. 4. Anemia of chronic kidney disease, maintained on Aranesp. 5. History of Crohn's disease with ileostomy. PLAN: Agree with discontinuation of nafcillin given the increase in creatinine today. Patient feels well and has been voiding well. So, if she is being discharged, we can follow up with labs as outpatient. She is advised to continue to avoid use of any nonsteroidal anti-inflammatory agents post discharge. She should follow up in the office in about 1-2 weeks. MMODL / IJN: [id number] /
[2020-03-07] MEDS: SODIUM CHLORIDE 0.9% 1,000 ML IV SCH (15:52)
--- NOTE | 2020-03-07 16:42 | P.PN ---
Subjective Progress Note Date: 03/07/20 Principal diagnosis: Sepsis After review of labs appears patient does have MGUS. Will need to follow for skeletal survey and 24 hour urine as an outpatient, to see Dr. Duque in 4-6 weeks. She was suppose to have a picc line placed today for antibiotics snd then discharged but this was held till tomorrow. Objective - Vital Signs Vital signs: Vital Signs Temp 98.3 F 03/07/20 12:00 Pulse 95 03/07/20 12:00 Resp 18 03/07/20 12:00 BP 107/57 03/07/20 12:00 Pulse Ox 91 L 03/07/20 12:00 Intake & Output 03/06/20 03/07/20 03/07/20 18:59 06:59 18:59 Intake Total 525 Output Total 900 900 900 Balance -375 -900 -900 Weight 73.9 kg 73.5 kg Intake: Oral 525 Output: Urine 600 Stool 900 900 300 Other: Voiding Method Bedside Commode # Bowel Movements 1 2 - Exam Constitutional General appearance: mild distress (Increased work of respiration) - EENT Eyes: EOMI, PERRLA ENT: hearing grossly normal, normal oropharynx - Neck Neck: no lymphadenopathy - Respiratory Respiratory: bilateral: CTA - Cardiovascular Rhythm: regular Heart sounds: normal: S1, S2 - Gastrointestinal General gastrointestinal: normal bowel sounds, soft - Integumentary Blackish-bluish discoloration of left third toe with scabbed ulcer - Neurologic Neurologic: CNII-XII intact - Musculoskeletal Musculoskeletal: generalized weakness, strength equal bilaterally - Psychiatric Psychiatric: A&O x's 3, appropriate affect - Labs CBC & Chem 7: 03/07/20 12:35 03/07/20 12:35 Labs: Abnormal Lab Results - Last 24 Hours (Table) 03/06/20 03/07/20 03/07/20 Range/Units 16:59 06:15 11:55 RBC (3.80-5.40) m/uL Hgb (11.4-16.0) gm/dL Hct (34.0-46.0) % MCV (80.0-100.0) fL RDW (11.5-15.5) % Lymphocytes # (1.0-4.8) k/uL Sodium (137-145) mmol/L Carbon Dioxide (22-30) mmol/L BUN (7-17) mg/dL Creatinine (0.52-1.04) mg/dL Glucose (74-99) mg/dL POC Glucose (mg/dL) 182 H 101 H 203 H (75-99) mg/dL Calcium (8.4-10.2) mg/dL AST (14-36) U/L Albumin (3.5-5.0) g/dL 03/07/20 03/07/20 Range/Units 12:35 12:35 RBC 3.04 L (3.80-5.40) m/uL Hgb 9.6 L (11.4-16.0) gm/dL Hct 30.6 L (34.0-46.0) % MCV 100.7 H (80.0-100.0) fL RDW 16.7 H (11.5-15.5) % Lymphocytes # 0.3 L (1.0-4.8) k/uL Sodium 131 L (137-145) mmol/L Carbon Dioxide 21 L (22-30) mmol/L BUN 30 H (7-17) mg/dL Creatinine 2.40 H (0.52-1.04) mg/dL Glucose 221 H (74-99) mg/dL POC Glucose (mg/dL) (75-99) mg/dL Calcium 8.2 L (8.4-10.2) mg/dL AST 37 H (14-36) U/L Albumin 2.9 L (3.5-5.0) g/dL Microbiology - Last 24 Hours (Table) 03/02/20 06:15 Blood Culture - Preliminary Blood No Growth after 120 hours 03/03/20 06:05 Blood Culture - Preliminary Blood No Growth after 96 hours Assessment and Plan Plan: Thrombocytopenia - Repeat CBC today platelet count 65K, no intervention needed - Henley to be multifactorial: * Acute on chronic secondary to chronic bone marrow suppression * Chronic liver disease plus or minus splenic sequestran Monoclonol Gammopathy of Unknown Significance: - 24 urine for protein and FLC as outpatient - skeletal survey outpatient with dr duque Macrocytic Anemia - No evidence of B12 deficiency, awaiting for folate to result - Lambda chains increased mild, likely due to underlying Chronic inflammation as ratio was not diagnostic, awaiting protein electrophoresis and immunofixation to result. - Iron deficiency is evident, again likely chronic and an extent expected with underlying Crohns, although at the moment with positive bacteremia and sepsis parental iron is not recommended. Will consider after resolution of infection. Left third toe gangrene with underlying osteomyelitis status post amputation 02/27. Consult with Dr. Anselmo herrera. Sepsis and bacteremia secondary to diabetic foot ulcer left third toe status post amputation. - Dr. Blanc ID is following - Repear bc pending - abx per ID - T-max 24 hours 101.7 Chronic kidney disease stage III. - Avoid nephrotoxic agents. - Monitoring Daily Diabetes mellitus type 2. - Per primary Hepatitis C - Treated previous - stable. Plan for 03/07/20: - Skeletal survey - Further MGUS work-up - 24 hour urine as outpatient for FLC and protein electrophoresis - Picc line and antibiotics and discharge per primary teams - Recommend PT/OT at discharge she is still very weak. And has not got out of bed long at hospital.
[2020-03-07 16:44] VITALS: TEMP 98.2
[2020-03-07 16:47] LABS: Glucose,Whole Blood 134 mg/dL (75-99)
[2020-03-07 20:30] LABS: Glucose,Whole Blood 151 mg/dL (75-99)
[2020-03-07] MEDS: MIRTAZAPINE 15 MG TAB PO SCH (21:34)
[2020-03-07] MEDS: SERTRALINE 100 MG TAB PO SCH (21:34)
[2020-03-07] MEDS: LOPERAMIDE 2 MG CAP PO PRN (21:34)
[2020-03-07 22:09] VITALS: BP 137/65; PULSE 84; RESP 16
[2020-03-08] MEDS: HYDROcodone/APAP 5-325MG 1 EACH TAB PO PRN ×2 (03:33→09:40)
[2020-03-08 06:26] LABS: Glucose,Whole Blood 98 mg/dL (75-99)
[2020-03-08] MEDS: INSULIN ASPART (NovoLOG) 100 UNIT/ML VIAL SQ SCH (06:30)
[2020-03-08] MEDS: LOPERAMIDE 2 MG CAP PO PRN (06:33)
[2020-03-08] MEDS: PANTOPRAZOLE 40 MG TABLET PO SCH (06:33)
--- NOTE | 2020-03-08 07:50 | P.PN ---
Subjective Progress Note Date: 03/07/20 This is a 64-year-old female with past medical history of Crohn's disease status post ileostomy, type 2 diabetes, hepatitis C liver disease, osteoarthritis history of kidney stones, chronic iron deficiency anemia, with an issue with stomal bleed on and off, status post upper and lower endoscopy with capsule endoscopy with Dr. Stanton. Was recently discharged from hospital for stomal bleed. She presents today with altered mental status brought by . Patient fell today in the bathroom and was noticed to be slightly confused so she was brought to the emergency room where she was found to have fever of 103. When I saw the patient she was fully awake and oriented, slightly lethargic but she can answer questions appropriately. Vitas looks stable, blood pressure was on the low side 93/54, currently is better at 125/61, patient is saturating 99% on 4 L oxygen via nasal cannula. On admission he had a fever of 103.8. No leukocytosis and hemoglobin 10.0, INR is 2.6 and 1.6. BMP showing elevated creatinine at 1. liver enzymes are slightly up. Negative CT of the brain and CTA of the head and neck. Chest x-ray: No acute process shows some pulmonary vascular congestion. EKG showing sinus tachycardia at [address]-T changes. In emergency room region was started on Zosyn and vancomycin, later on Zosyn was stopped per infectious disease recommendation 02/29/20 Patient lying in bed comfortable, she is fully awake and oriented, no chest pain or dyspnea, tolerating diet well, no abdominal pain. No fever. Left lower extremity cellulitis is significantly improving. On reviewing further information patient states that she has gone endoscopy done for her about 2 years ago and she had only polyps. She was a little bit hypoxic so IV fluids were stopped and we'll check chest x- ray. Tissue culture and blood culture showing presumptive staph, patient is already on antibiotics cefepime, infectious disease on the case currently she is on cefazolin for ID team, also patient has underlying osteomyelitis per ID team, her ESR is elevated at 115 Patient was pancytopenia, Hematology of the case 03/01: Patient has been febrile, heart rate 67, blood pressure 120/66, pulse ox 98% on 2 L nasal cannula. Repeat blood work reveals hemoglobin of 7.5, platelet count not recorded. BUN 20 and creatinine 1.29. Blood sugars running between 131 and 208. Repeat chest x-ray reveals chronic parenchymal changes and cardiomegaly with improved aeration right lung base. No new infiltrates seen. Patient has been seen and followed by multiple consultants including Dr. Briones who performed a toe amputation on 02/27. Dr. Blanc is managing sepsis and MSSA bacteremia currently on Kefzol with repeat blood cultures positive. Patient has been seen by Dr. Yousif for chronic thrombocytopenia and anemia both in the safe range. We will change IV to KVO and patient will receive 1 dose of IV Lasix. Chest x-ray will be ordered for tomorrow. 03/02: Patient has been afebrile since yesterday at 8 AM. Heart rate 80, blood pressure 119/62, pulse ox 97% on room air. Repeat blood work reveals hemoglobin 9.2, platelet count 92. BUN 25 and creatinine 1.31. Blood sugars running betwe en 112 and 154. AST 38. Blood culture obtained on March 01 is positive for gram-positive cocci in clusters. CAT scan of the foot reveals diffuse soft tissue edema. Correlate for cellulitis. There appears to be destructive change involving the phalanx of the third digit highly suggestive of osteomyelitis. There is a fracture involving the intra-articular surface and base of proximal phalanx second digit. Chest x-ray reveals mild cardiomegaly. Small bilateral pleural effusions with adjacent atelectasis and/or consolidation. Correlate for mild heart failure. Large bands of atelectasis and lower lungs. Lasix 20 mg IV push ordered 1. DuoNeb treatments added as well as incentive spirometry. Echocardiogram has been ordered to rule out valvular abnormality, vegetation. Patient ate only 25% of her breakfast meals have been 75-100%. The patient is having stools and ileostomy consistent with her normal stools. environmental monitoring technician has been a sinus rhythm. 03/03: Patient now has one blood culture obtained on March 02 are showing no growth at 24 hours. If this continues to show no growth, PICC line will be initiated. Patient will need IV antibiotics and may require discharge to [facility]. The patient was not interested in rehab but this will be revisited with her by the dependency case manager. Patient has been afebrile for 2 days. Heart rate 72, blood pressure 125/58 pulse ox 99% on room air. Repeat blood work ordered for tomorrow. Patient does have some shortness of breath with activity. She continues to have output from ileostomy. environmental monitoring technician is a sinus rhythm. Echocardiogram reveals EF of 55-60% with mild concentric left hypertrophy, mild mitral regurgitation, mild tricuspid regurgitation, borderline pulmonary hypertension. No mention of vegetation. Antibiotics have been changed to nafcillin by Dr. Blanc. 03/04: Patient has been seen by cardiology and is scheduled for XIAO today which was performed by Dr. Sandhu and revealed no evidence of infective endocarditis. Thickened mitral valve leaflets with mild mitral regurgitation. Trileaflet aortic valve without stenosis or regurgitation. Normal tricuspid valve and pulmonic valve. Intact left atrial appendage. Intact intra-atrial septum. Normal systolic function. No evidence of pericardial effusion. She has one blood culture with no growth at 48 hours and a second with no growth at 24 hours. PICC line ordered for Saturday per Dr. Blanc recommendations. Patient has been afebrile, heart rate 87, blood pressure 113/59, pulse ox 96% on room air. Repeat blood work reveals W BC 5.6, hemoglobin 9.5, platelet count 110. Potassium 3.3, BUN 29 and creatinine 1.46. Potassium will be replaced. Blood sugars running between 99 and 210. Patient denies any chest pain or shortness of breath. No lightheadedness or dizziness. She complains of back pain due to bed hospital bed. Patient is not interested in subacute rehab and is adamant that she will go home. She does have 100% coverage for IV antibiotics in the home. admissions manager is working with her closely to make arrangements or anticipated discharge on Monday 03/05: Patient is sitting up in the recliner in no apparent distress today she did not eat much today for breakfast she is asking for some soup for lunch today she denies any chest pain or shortness breath she has no fever or chills, her blood cultures remained negative she will have a PIC line insertion on Saturday morning and then she can be discharged home for IV antibiotic, her left foot appears to be clean incision appears to be clean with no erythema sutures to be intact, no drainage at all pulse is +2 bilaterally. Patient does not have a very good appetite today and she thinks is related to her antibiotic she has no evidence of any thrush at this point. 03/06: Patient is sitting up in bed she is feeling extremely nauseated she is not able to eat or drink anything, we will try to switch her nafcillin to a different antibiotic as well as and as she may be having side effects from it, we will start the patient Zofran 4 mg IV push every 6 hours as needed, patient will have her PICC line placed tomorrow morning and hopefully she'll be discharged home after that. 03/07: Patient is scheduled for PICC line insertion today. Nephrology is following and has cleared patient for this procedure. Nausea is improved with Zofran. Patient has been afebrile, heart rate 91, blood pressure 120/50, pulse ox 97% on room air. Repeat blood work reveals WBC 7.7, hemoglobin 9.6, platelet count 152. Sodium 131, CO2 21, BUN 30 and creatinine 2.4. Blood sugars are running 134-221. Anticipate discharge home once arrangements are completed for home IV antibiotics. Objective - Vital Signs Vital signs: Vital Signs Temp 98.2 F 03/07/20 16:00 Pulse 84 03/07/20 22:09 Resp 16 03/07/20 22:09 BP 137/65 03/07/20 22:09 Pulse Ox 97 03/07/20 22:09 Intake & Output 03/07/20 03/08/20 03/08/20 18:59 06:59 18:59 Intake Total 120 Output Total 900 200 Balance -780 -200 Intake: Oral 120 Output: Urine 600 Stool 300 200 Other: Voiding Method Bedside Commode - Exam Review Of Systems: Constitutional: No fever, no chills, no night sweats. No weight change. Report weakness, reports fatigue. EENT: No headache. No blurred vision or double vision, no loss of vision. No dizziness. No nasal drainage or congestion. No epistaxis. No sore throat. Lungs: Reports shortness of breath, cough, no sputum production. No wheezing. Cardiovascular: No chest pain, no lower extremity edema. No palpitations. No paroxysmal nocturnal dyspnea. No orthopnea. No lightheadedness or dizziness. No syncopal episodes. Abdominal: No abdominal pain. No nausea, vomiting. No diarrhea. No co nstipation. No bloody or tarry stools. No loss of appetite. Genitourinary: No dysuria, increased frequency, urgency. No urinary retention. Musculoskeletal: No myalgias. Reports muscle weakness, no gait dysfunction, no frequent falls. No back pain. No neck pain. Integumentary: Left foot wounds, no lesions. No rash or pruritus. No unusual bruising. No change in hair or nails. Neurologic: No aphasia. No facial droop. No change in mentation. No head injury. No headache. No paralysis. No paresthesia. Psychiatric: No depression. No anxiety. No mood swings. Endocrine: Reports abnormal blood sugars. Physical Examination Gen: This is a 64-year-old female. Patient appears to be comfortable. HEENT: Head is atraumatic, normocephalic. Pupils equal, round. Sclerae is anicteric. NECK: Supple. No JVD. No lymphadenopathy. No thyromegaly. LUNGS: Clear to auscultation. No wheezes or rhonchi. No intercostal retractions. HEART: Regular rate and rhythm. First heart sound is depressed, second heart sound is normal, 2/6 systolic ejection murmur at the left sternal border. ABDOMEN: Soft. Bowel sounds are present. No masses. No tenderness. Female c atheter in place. Patient has ostomy with liquid stool output. EXTREMITIES: No pedal edema. No calf tenderness. Dorsalis pedis +[address] for left foot. NEUROLOGICAL: Patient is awake, alert and oriented x3. Cranial nerves 2 through 12 are grossly intact. - Labs CBC & Chem 7: 03/08/20 07:15 03/08/20 07:15 Labs: Abnormal Lab Results - Last 24 Hours (Table) 03/07/20 03/07/20 03/07/20 Range/Units 11:55 12:35 12:35 RBC 3.04 L (3.80-5.40) m/uL Hgb 9.6 L (11.4-16.0) gm/dL Hct 30.6 L (34.0-46.0) % MCV 100.7 H (80.0-100.0) fL RDW 16.7 H (11.5-15.5) % Lymphocytes # 0.3 L (1.0-4.8) k/uL Sodium 131 L (137-145) mmol/L Carbon Dioxide 21 L (22-30) mmol/L BUN 30 H (7-17) mg/dL Creatinine 2.40 H (0.52-1.04) mg/dL Glucose 221 H (74-99) mg/dL POC Glucose (mg/dL) 203 H (75-99) mg/dL Calcium 8.2 L (8.4-10.2) mg/dL AST 37 H (14-36) U/L Albumin 2.9 L (3.5-5.0) g/dL 03/07/20 03/07/20 Range/Units 16:45 20:28 RBC (3.80-5.40) m/uL Hgb (11.4-16.0) gm/dL Hct (34.0-46.0) % MCV (80.0-100.0) fL RDW (11.5-15.5) % Lymphocytes # (1.0-4.8) k/uL Sodium (137-145) mmol/L Carbon Dioxide (22-30) mmol/L BUN (7-17) mg/dL Creatinine (0.52-1.04) mg/dL Glucose (74-99) mg/dL POC Glucose (mg/dL) 134 H 151 H (75-99) mg/dL Calcium (8.4-10.2) mg/dL AST (14-36) U/L Albumin (3.5-5.0) g/dL Microbiology - Last 24 Hours (Table) 03/02/20 06:15 Blood Culture - Preliminary Blood No Growth after 120 hours 03/03/20 06:05 Blood Culture - Preliminary Blood No Growth after 96 hours Assessment and Plan Plan: 1. Metabolic encephalopathy secondary to sepsis, resolved. 2. Fall at home. PT and OT consults. 3. Left third toe gangrene with underlying osteomyelitis status post amputation 02/27. Consult with Dr. Briones appreciated. 4. Sepsis and bacteremia secondary to diabetic foot ulcer left third toe status post amputation. Consult with Dr. Blanc appreciated. Continue nafcillin. Repeat blood cultures from March 02 and are showing no growth. CAT scan of the foot as above. Echocardiogram as above. XIAO revealed no vegetation. PICC line insertion scheduled for Saturday. 5. Chronic anemia of chronic illness. Continue Aranesp 6. Recent history of stomal bleed. No active bleeding. 7. Acute kidney injury Chronic kidney disease stage III. Avoid nephrotoxic agents. Nephrology on consult 8. Diabetes mellitus type 2. Continue Tradjenta 5 mg daily, NovoLog scale before meals and at bedtime 9. Hepatitis C in remission, stable. 10. Crohn's disease status post ileostomy in 2007 on chronic prednisone. 11. Generalized anxiety disorder. Continue Xanax 12. Hypertension hypertensive cardiovascular disease. Continue lisinopril 2.5 mg daily. 13. GI prophylaxis. Protonix 14. DVT prophylaxis. Knee-high CRISTHIAN hose. Heparin subcu. 15. Fluid overload secondary to IV fluids. Lasix 20 g iv push 1, iv fluids discontinued. Duoneb treatments and incentive spirometry. 16. Acute hypoxic respiratory failure, present on admission with initial pulse ox of 77%. Breathing status is currently stable. 17. Persistent nausea. Start the patient on Zofran 4 mg every 6 hours, try to switch Nafcillin to a different antibiotic at this point in time we will discuss with infectious disease. 18. Hypomagnesemia. we will continue with Mag oside 400 mg orally bid and she did have Magnesium sulfate 3gr IVPBX 1. Discharge plan: Home with [facility] and home IV antibiotic therapy. Impression and plan of care have been directed as dictated by the signing physician. Glenis Hernandez nurse practitioner acting as scribe for signing physician.
[2020-03-08 08:10] LABS: Anisocytosis Slight; Basophils # (A) 0.1 k/uL (0-0.2); Basophils % (A) 1 %; Eosinophils # (A) 0.1 k/uL (0-0.7); Eosinophils % (A) 1 %; HCT 31.3 % (34.0-46.0); HGB 9.6 gm/dL (11.4-16.0); Hypochromasia Marked; Lymphocytes # (A) 1.1 k/uL (1.0-4.8); Lymphocytes % (A) 14 %; MCH 30.7 pg (25.0-35.0); MCHC 30.5 g/dL (31.0-37.0); MCV 100.8 fL (80.0-100.0); Macrocytosis Slight; Monocytes # (A) 0.5 k/uL (0-1.0); Monocytes % (A) 6 %; Neutrophils # (A) 5.9 k/uL (1.3-7.7); Neutrophils % (A) 76 %; Platelet Count 157 k/uL (150-450); Poikilocytosis Moderate; RBC 3.11 m/uL (3.80-5.40); RDW 16.5 % (11.5-15.5); Reticulocyte % 4.3 % (0.5-2.0); WBC 7.7 k/uL (3.8-10.6)
[2020-03-08] MEDS ORDERED: LIDOCAINE 1% INJ 10MG/ML (20 ML MDV) ONE (08:38)
[2020-03-08] MEDS: IPRATROPIUM-ALBUTEROL 3 ML NEB INHALATION SCH ×2 (08:40→12:09)
[2020-03-08 08:50] LABS: Albumin 2.7 g/dL (3.5-5.0); Calcium 8.3 mg/dL (8.4-10.2); Potassium 4.2 mmol/L (3.5-5.1); Total Bilirubin 0.5 mg/dL (0.2-1.3); Total Protein 6.1 g/dL (6.3-8.2)
[2020-03-08] MEDS: HEPARIN SODIUM,PORCINE 5,000 UNIT/ML 1 ML VIAL SQ SCH (09:13)
[2020-03-08] MEDS: predniSONE 20 MG TAB PO SCH (09:13)
[2020-03-08] MEDS: ALPRAZolam 1 MG TAB PO SCH (09:13)
[2020-03-08] MEDS: LINAGLIPTIN 5 MG TABLET PO SCH (09:13)
[2020-03-08] MEDS: ATORVASTATIN 20 MG TAB PO SCH (09:13)
[2020-03-08] MEDS: FERROUS SULFATE 325 MG TAB PO SCH (09:13)
[2020-03-08] MEDS: CALCIUM CARB-VIT D 500MG-200UN 1 EACH TAB PO SCH (09:13)
[2020-03-08] MEDS: amLODIPine 2.5 MG TAB PO SCH (09:13)
[2020-03-08] MEDS: MAGNESIUM OXIDE 400 MG TAB PO SCH (09:13)
[2020-03-08] MEDS ORDERED: LIDOCAINE 1% INJ 10MG/ML (20 ML MDV) SQ ONE (09:15)
[2020-03-08 11:57] LABS: Glucose,Whole Blood 102 mg/dL (75-99)
[2020-03-08] MEDS: ONDANSETRON 4 MG/2 ML VIAL IVP PRN (12:18)
--- NOTE | 2020-03-08 12:31 | IR ---
EXAMINATION TYPE: IR cvc insert >=5 years DATE OF EXAM: 03/08/2020 COMPARISON: NONE CLINICAL HISTORY: Infection Needs long-term intravenous access for antibiotics. PROCEDURE: Hand hygiene obtained with soap and water and alcohol-based hand rub. After informed consent, the skin overlying the right basilic vein was localized with ultrasound and n oted to be compressible and patent. An ultrasound image was obtained and submitted on the patient's chart. The overlying skin was prepped and draped and Lidocaine was used for local anesthesia. A ski n bert was made with a scalpel. Access was gained to the vein under ultrasound guidance with a 21 ga uge needle and a 0.018 inch wire was advanced. Access site was dilated with Peel-Away sheath and cat heter tailored to the appropriate length and advanced such that the distal tip is at the cavoatrial j unction. Spot image was obtained verifying placement. Catheter was fixed to the skin and a sterile dressing was placed following hemostasis. Catheter was aspirated and flushed with saline. Patient w as discharged in stable condition without complication.Maximal barrier technique is utilized. Ultras ound image is documented on the chart. Ultrasound used with sterile technique. Fluoro time and fluoroscopic images submitted to document procedure: 81 intraoperative images, 0.2 mi nutes fluoroscopy time IMPRESSION: STATUS POST ULTRASOUND AND FLUOROSCOPIC GUIDED PICC LINE PLACEMENT, READY FOR USE. THIS PROCEDURE WAS PERFORMED BY THE UNDERSIGNED.
--- NOTE | 2020-03-08 17:51 | P.PN ---
Subjective Progress Note Date: 03/08/20 Principal diagnosis: Sepsis Will undergo skeletal survey at follow-up patient having picc line Objective - Vital Signs Vital signs: Vital Signs Temp 98.2 F 03/07/20 16:00 Pulse 84 03/07/20 22:09 Resp 16 03/07/20 22:09 BP 137/65 03/07/20 22:09 Pulse Ox 97 03/07/20 22:09 Intake & Output 03/07/20 03/08/20 03/08/20 18:59 06:59 18:59 Intake Total 120 0 Output Total 900 200 Balance -780 -200 0 Intake: Oral 120 0 Output: Urine 600 Stool 300 200 Other: Voiding Method Bedside Commode - Exam Constitutional General appearance: mild distress (Increased work of respiration) - EENT Eyes: EOMI, PERRLA ENT: hearing grossly normal, normal oropharynx - Neck Neck: no lymphadenopathy - Respiratory Respiratory: bilateral: CTA - Cardiovascular Rhythm: regular Heart sounds: normal: S1, S2 - Gastrointestinal General gastrointestinal: normal bowel sounds, soft - Integumentary Blackish-bluish discoloration of left third toe with scabbed ulcer - Neurologic Neurologic: CNII-XII intact - Musculoskeletal Musculoskeletal: generalized weakness, strength equal bilaterally - Psychiatric Psychiatric: A&O x's 3, appropriate affect - Labs CBC & Chem 7: 03/08/20 07:15 03/08/20 07:15 Labs: Abnormal Lab Results - Last 24 Hours (Table) 03/07/20 03/08/20 03/08/20 Range/Units 20:28 07:15 07:15 RBC 3.11 L (3.80-5.40) m/uL Hgb 9.6 L (11.4-16.0) gm/dL Hct 31.3 L (34.0-46.0) % MCV 100.8 H (80.0-100.0) fL MCHC 30.5 L (31.0-37.0) g/dL RDW 16.5 H (11.5-15.5) % Retic Count 4.3 H (0.5-2.0) % Sodium 130 L (137-145) mmol/L Carbon Dioxide 21 L (22-30) mmol/L BUN 34 H (7-17) mg/dL Creatinine 2.53 H (0.52-1.04) mg/dL POC Glucose (mg/dL) 151 H (75-99) mg/dL Calcium 8.3 L (8.4-10.2) mg/dL Total Protein 6.1 L (6.3-8.2) g/dL Albumin 2.7 L (3.5-5.0) g/dL 03/08/20 Range/Units 11:50 RBC (3.80-5.40) m/uL Hgb (11.4-16.0) gm/dL Hct (34.0-46.0) % MCV (80.0-100.0) fL MCHC (31.0-37.0) g/dL RDW (11.5-15.5) % Retic Count (0.5-2.0) % Sodium (137-145) mmol/L Carbon Dioxide (22-30) mmol/L BUN (7-17) mg/dL Creatinine (0.52-1.04) mg/dL POC Glucose (mg/dL) 102 H (75-99) mg/dL Calcium (8.4-10.2) mg/dL Total Protein (6.3-8.2) g/dL Albumin (3.5-5.0) g/dL Microbiology - Last 24 Hours (Table) 03/02/20 06:15 Blood Culture - Final Blood No Growth after 144 hours 03/03/20 06:05 Blood Culture - Preliminary Blood No Growth after 120 hours Assessment and Plan Plan: Thrombocytopenia - Repeat CBC today platelet count 65K, no intervention needed - Frazee to be multifactorial: * Acute on chronic secondary to chronic bone marrow suppression * Chronic liver disease plus or minus splenic sequestran Monoclonol Gammopathy of Unknown Significance: - 24 urine for protein and FLC as outpatient - skeletal survey outpatient with dr dquue Macrocytic Anemia - No evidence of B12 deficiency, awaiting for folate to result - Lambda chains increased mild, likely due to underlying Chronic inflammation as ratio was not diagnostic, awaiting protein electrophoresis and immunofixation to result. - Iron deficiency is evident, again likely chronic and an extent expected with underlying Crohns, although at the moment with positive bacteremia and sepsis parental iron is not recommended. Will consider after resolution of infection. Left third toe gangrene with underlying osteomyelitis status post amputation 02/27. Consult with Dr. Briones appreciated. Sepsis and bacteremia secondary to diabetic foot ulcer left third toe status post amputation. - Dr. Blanc ID is following - Repear bc pending - abx per ID - T-max 24 hours 101.7 Chronic kidney disease stage III. - Avoid nephrotoxic agents. - Monitoring Daily Diabetes mellitus type 2. - Per primary Hepatitis C - Treated previous - stable. Plan for 03/08/20: - Skeletal survey outpatient - Further MGUS work-up - 24 hour urine as outpatient for FLC and protein electrophoresis - Picc line and antibiotics and discharge per primary teams - Recommend PT/OT at discharge she is still very weak. And has not got out of bed long at hospital.
--- NOTE | 2020-03-08 18:46 | PN ---
PROGRESS NOTE Patient is seen for followup for acute kidney injury. Her renal function had worsened yesterday with creatinine going up to 2.4, and today it is at 2.5. The patient was on nafcillin, which is now discontinued. She did get her PICC line and will continue with cefazolin as outpatient. On examination today, blood pressure was 137/65, heart rate 84 per minute. Patient is afebrile. EXAMINATION OF THE HEART: S1 and S2. EXAMINATION OF LUNGS: Bilateral breath sounds are heard. ABDOMEN: Soft, non-tender. Examination of lower extremities shows no significant edema. BRIDAL GOWN FITTER exam is grossly intact. Labs show sodium 130, potassium 4.2. CO2 is 21. BUN 34, creatinine 2.53, hemoglobin 9.6 g/dL. ASSESSMENT: 1. Acute kidney injury which had improved with creatinine down to 1.2. However, creatinine increased again to 2.4 yesterday, mostly associated with antibiotic use. Currently off of nafcillin. We will monitor renal function. Patient has an appointment for followup as outpatient in one week's time. 2. Chronic kidney disease, stage 3, secondary to diabetic kidney disease. Baseline creatinine 1.2 to 1.4. 3. Type 2 diabetes. 4. History of Crohn's disease with ileostomy. PLAN: Continue off of nafcillin. Monitor labs as outpatient. Patient has an appointment in one week's time. She can be discharged and we will repeat her labs and see her for followup as outpatient. Patient is advised to avoid use of any nonsteroidal anti- inflammatory agents. MMODL / IJN: [id number] /
--- NOTE | 2020-03-11 15:55 | P.PN ---
Progress Note - Text Progress Note Date: 03/08/20 REASON FOR FOLLOWUP: Left diabetic foot infection with MSSA bacteremia. INTERVAL HISTORY: The patient remains to be afebrile. Patient is breathing comfortably. The patient denies having any chest pain. No shortness of breath or cough. No nausea, no vomiting, no abdominal pain, no diarrhea. Patient did got her PICC line PHYSICAL EXAMINATION: Blood pressure is 128/58 with a pulse of 72, temperature 99, she is 98% on room air. General description is a middle-aged female up in the bed, in no distress. RESPIRATORY SYSTEM: Unlabored breathing, clear to auscultation anteriorly. HEART: S1, S2. Regular rate and rhythm. ABDOMEN: Soft, no tenderness. Left foot is currently dressed up. No obvious drainage on the dressing. LABS: Reviewed DIAGNOSTIC IMPRESSION AND PLAN: Patient with left diabetic foot infection, third toe, status post amputation with MSSA bacteremia. In view of the persistent bacteremia, the patient did have further workup including a XIAO and CT of lumbar spine that was negative. She did got a PICC line We'll continue with cefazolin 2 g every 8 hours for 4 weeks, weekly monitoring of CBC BMP and a sed rate and close outpatient follow-up
== END 2020-03-08 12:59 | disposition home health service (06) | DRG 853 ==
LOC: EC 06:07 → 3SCARD 08:07
PROVIDERS: ADMIT Internal Medicine; ATTEND Internal Medicine
PROC: B246ZZ4 Ultrasonography of Right and Left Heart, Transesophageal (ICD-10-PCS; 2020-02-27)
PROC: 0Y6U0Z0 Detachment at Left 3rd Toe, Complete, Open Approach (ICD-10-PCS; principal; 2020-02-28 13:00)
PROC: 02HV33Z Insertion of Infusion Device into Superior Vena Cava, Percutaneous Approach (ICD-10-PCS; 2020-03-08)
DX: A41.01 Sepsis due to Methicillin susceptible Staphylococcus aureus (principal); G93.41 Metabolic encephalopathy; J96.01 Acute respiratory failure with hypoxia; D61.818 Other pancytopenia; E09.52 Drug or chemical induced diabetes mellitus with diabetic peripheral angiopathy with gangrene; I96 Gangrene, not elsewhere classified; M86.172 Other acute osteomyelitis, left ankle and foot; J98.11 Atelectasis; K50.90 Crohn's disease, unspecified, without complications; L03.116 Cellulitis of left lower limb; N17.9 Acute kidney failure, unspecified; B19.20 Unspecified viral hepatitis C without hepatic coma; D47.2 Monoclonal gammopathy; D63.1 Anemia in chronic kidney disease; E09.22 Drug or chemical induced diabetes mellitus with diabetic chronic kidney disease; E09.621 Drug or chemical induced diabetes mellitus with foot ulcer; E09.69 Drug or chemical induced diabetes mellitus with other specified complication; E09 Drug or chemical induced diabetes mellitus; L97.529 Non-pressure chronic ulcer of other part of left foot with unspecified severity; T38.0X5S Adverse effect of glucocorticoids and synthetic analogues, sequela; N18.3 Chronic kidney disease, stage 3 (moderate); I27.20 Pulmonary hypertension, unspecified; Z20.828 Contact with and (suspected) exposure to other viral communicable diseases; I13.10 Hypertensive heart and chronic kidney disease without heart failure, with stage 1 through stage 4 chronic kidney disease, or unspecified chronic kidney disease; Z79.84 Long term (current) use of oral hypoglycemic drugs; E78.5 Hyperlipidemia, unspecified; E83.42 Hypomagnesemia; E87.70 Fluid overload, unspecified; F41.1 Generalized anxiety disorder; R65.20 Severe sepsis without septic shock; R07.81 Pleurodynia; W19.XXXA Unspecified fall, initial encounter; Y92.009 Unspecified place in unspecified non-institutional (private) residence as the place of occurrence of the external cause; Z79.899 Other long term (current) drug therapy; Z82.3 Family history of stroke; Z83.3 Family history of diabetes mellitus; Z87.442 Personal history of urinary calculi; Z88.1 Allergy status to other antibiotic agents; Z90.710 Acquired absence of both cervix and uterus; Z93.2 Ileostomy status; Z96.641 Presence of right artificial hip joint; Z87.440 Personal history of urinary (tract) infections; Z53.09 Procedure and treatment not carried out because of other contraindication; I08.1 Rheumatic disorders of both mitral and tricuspid valves; Z86.14 Personal history of Methicillin resistant Staphylococcus aureus infection; Z90.49 Acquired absence of other specified parts of digestive tract; Z98.51 Tubal ligation status; Z80.9 Family history of malignant neoplasm, unspecified; Z88.8 Allergy status to other drugs, medicaments and biological substances; Z88.4 Allergy status to anesthetic agent; Z91.041 Radiographic dye allergy status; Z88.0 Allergy status to penicillin
CPT/HCPCS: 36415; 36573; 70450; 70496; 70498; 71045; 71046; 72131; 80048; 80053; 80076; 81001; 82533; 82607; 82668; 82728; 82746; 82747; 82784; 83010; 83540; 83550; 83605; 83615; 83735; 83883; 83921; 84100; 84165; 84484; 85025; 85027; 85045; 85384; 85610; 85652; 85730; 86038; 86140; 86334; 86431; 87040; 87070; 87075; 87077; 87086; 87186; 87205; 93005; 93306; 93312; 93320; 93325; 94640; 94760; 96360; 96365; 96366; 96367; 99291

== ENCOUNTER 2020-04-19 16:16 | Inpatient (IN) | payer MEDICARE ==
[2020-04-19 17:41] LABS: Basophils # (A) 0.1 k/uL (0-0.2); Basophils % (A) 2 %; Eosinophils # (A) 0.1 k/uL (0-0.7); Eosinophils % (A) 2 %; HCT 38.4 % (34.0-46.0); HGB 12.2 gm/dL (11.4-16.0); Hypochromasia Slight; Lymphocytes # (A) 1.4 k/uL (1.0-4.8); Lymphocytes % (A) 25 %; MCH 33.8 pg (25.0-35.0); MCHC 31.7 g/dL (31.0-37.0); MCV 106.4 fL (80.0-100.0); Macrocytosis Moderate; Mean Platelet Volume 7.6; Monocytes # (A) 0.4 k/uL (0-1.0); Monocytes % (A) 7 %; Neutrophils # (A) 3.4 k/uL (1.3-7.7); Neutrophils % (A) 62 %; RBC 3.61 m/uL (3.80-5.40); RDW 15.3 % (11.5-15.5); WBC 5.5 k/uL (3.8-10.6)
[2020-04-19 17:45] LABS: Platelet Count 63 k/uL (150-450)
[2020-04-19 17:53] LABS: Albumin 3.5 g/dL (3.5-5.0); Calcium 8.9 mg/dL (8.4-10.2); INR 1.1 (<1.2); Partial Thromboplastin Time 23.1 sec (22.0-30.0); Potassium 4.7 mmol/L (3.5-5.1)
--- NOTE | 2020-04-19 17:59 | XR ---
EXAMINATION TYPE: XR chest 2V DATE OF EXAM: 04/19/2020 COMPARISON: 03/02/2020 HISTORY: Fever TECHNIQUE: 2 views FINDINGS: There is some right lateral chest wall deformity consistent with old rib fractures. There i s no heart failure. There is no definite pleural effusion. There is osteopenia with 90% anterior wedg ing of T9 vertebra. There is mild thoracic kyphosis. IMPRESSION: There is improvement in the pleural fluid and atelectasis in the lower lung castellano compar ed to old exam. No heart failure seen.
--- NOTE | 2020-04-19 18:11 | CT ---
EXAMINATION TYPE: CT brain cspine wo con DATE OF EXAM: 04/19/2020 COMPARISON: CT brain 02/27/2020 HISTORY: Weakness and dizziness. CT DLP: 1415.3 mGycm Automated exposure control for dose reduction was used. There is mild cerebral atrophy. There is no mass effect nor midline shift. There is no sign of intrac ranial hemorrhage. Calvarium is intact. There is normal aeration of the mastoid sinuses. Skull base i s intact. Occipital bone is intact. Cervical vertebra have fairly normal spacing and alignment. Posterior elements are intact. Facet join ts are intact. Prevertebral soft tissues are intact. There is no evidence of a fracture. There is ple ural thickening at the lung apices bilaterally. There is some pleural lipomatosis. IMPRESSION: Cerebral atrophy. No acute intracranial abnormality. No change compared to old exam. No acute abnormality of the cervical spine. No fracture.
[2020-04-19 18:31] LABS: Amorphous Sediment,Urine Rare /hpf; Appearance,Urine Clear (Clear); Bilirubin,Urine Negative (Negative); Blood,Urine Moderate (Negative); Color,Urine Yellow; Glucose,Urine (UA) Negative (Negative); Hyaline Casts,Urine 17 /lpf (0-2); Ketones,Urine Negative (Negative); Leukocyte Esterase,Urine Trace (Negative); Mucus,Urine Rare /hpf; Nitrite,Urine Negative (Negative); PH, Urine 5.5 (5.0-8.0); Protein,Urine 2+ (Negative); RBC,Urine 6 /hpf (0-5); Specific Gravity,Urine 1.011 (1.001-1.035); Squamous Epithelial Cell,Urine <1 /hpf (0-4); Urobilinogen,Urine <2.0 mg/dL (<2.0); WBC,Urine 14 /hpf (0-5)
--- NOTE | 2020-04-19 18:37 | ED ---
Weakness HPI - General Chief complaint: Weakness Stated complaint: Headache Time Seen by Provider: 04/19/20 16:20 Source: patient Mode of arrival: wheelchair Limitations: no limitations - History of Present Illness Initial comments: Patient is a 64-year-old female past medical history of diabetes, hypertension, hyperlipidemia who presents to the emergency department with the sensation of ataxia. Patient states that the symptoms have been going on for several months. She did have osteomyelitis and has been on antibiotics for 5 weeks. She last received her dose of IV antibiotics last night. This morning her PICC line was pulled and she started to take oral Keflex. She is now ambulatory on her right lower extremity. She was told by previous providers that the sensation that she is off balance is due to her nonambulatory status for a period of time. Patient states that she is tired of the sensation every time she stands up she is to follow over and therefore came into the emergency department for evaluation. Upon arrival here the patient has a notable fever tachycardia. She reports that her lower extremity wounds have been healing well. She denies a cough, shortness of breath. Does admit to some chronic abdominal pain. No changes in her ostomy output. Denies urinary symptoms. No headaches or visual changes. No other alleviating, Perceptin or modifying factors - Related Data Home Medications Medication Instructions Recorded Confirmed Sertraline HCl [Zoloft] 100 mg PO HS 07/26/17 04/19/20 Ferrous Sulfate [Iron (65 MG 325 mg PO DAILY 06/19/19 04/19/20 Elemental)] Magnesium Oxide [Mag-Ox] 250 mg PO DAILY 06/19/19 04/19/20 Rosuvastatin [Crestor] 10 mg PO DAILY 01/26/20 04/19/20 allopurinoL [Zyloprim] 100 mg PO DAILY 01/26/20 04/19/20 sitaGLIPtin PHOSPHATE [Januvia] 50 mg PO DAILY 01/26/20 04/19/20 Calcium Carbonate [Calcium] 600 mg PO DAILY 04/19/20 04/19/20 Cephalexin [Keflex] 500 mg PO TID 04/19/20 04/19/20 Cyanocobalamin (Vitamin B-12) 500 mcg PO DAILY 04/19/20 04/19/20 [Vitamin B-12] Furosemide [Lasix] 40 mg PO DAILY 04/19/20 04/19/20 Lifitegrast [Xiidra] 1 drop BOTH EYES BID 04/19/20 04/19/20 Pantoprazole [Protonix] 40 mg PO BID 04/19/20 04/19/20 Potassium Chloride ER [K-Dur 10] 10 meq PO DAILY 04/19/20 04/19/20 Previous Rx's Medication Instructions Recorded Cholecalciferol (Vitamin D3) 2,000 unit PO DAILY #30 capsule 06/29/19 [Vitamin D3] predniSONE [Deltasone] 20 mg PO DAILY #30 tab 06/30/19 amLODIPine [Norvasc] 2.5 mg PO DAILY #30 tab 03/07/20 Allergies Allergy/AdvReac Type Severity Reaction Status Date / Time adhesive tape Allergy Severe Rash/Hives/Skin Verified 04/19/20 20:41 Peeling levofloxacin [From Levaquin] Allergy Severe Swelling/ra Verified 04/19/20 20:41 sh Quinolones Allergy Severe Anaphylaxis Verified 04/19/20 20:41 /Swelling enoxaparin [From Lovenox] Allergy GI bleed Verified 04/19/20 20:41 NSAIDS (Non-Steroidal AdvReac Severe GI Verified 04/19/20 20:41 Anti-Inflamma Bleeding/Liver Damage warfarin [From Coumadin] AdvReac Severe Abdominal Verified 04/19/20 20:41 Pain Review of Systems ROS Statement: Those systems with pertinent positive or pertinent negative responses have been documented in the HPI. ROS Other: All systems not noted in ROS Statement are negative. Past Medical History Past Medical History: Blood Disorder, Diabetes Mellitus, GERD/Reflux, Hyperlipidemia, Hypertension, Liver Disease, Osteoarthritis (OA), Renal Disease Additional Past Medical History / Comment(s): crohns, hx. hep c, past hx. sepsis & ards 2007, has ileostomy, hx. kidney stones, hx. of infection,has spacer in, hx. anemia related to intermittent bleeding from stoma, has past hx., uti , low platelets septicemia. CHRONIC KIDNEY DISEASE. History of Any Multi-Drug Resistant Organisms: MRSA Date of last positivie culture/infection: 04/25/16 MDRO Source:: Blood & Right Hip Past Surgical History: Appendectomy, Bowel Resection, Cholecystectomy, Hernia Repair, Hysterectomy, Tubal Ligation Additional Past Surgical History / Comment(s): ileostomy 2009 WITH 3-4 RE- SUTURING EPISODES RELATED TO BLEEDING, ileoscopy w/argon gas coagulation of stoma, 10-22-16 revison rt toal hip arthroplasty Past Anesthesia/Blood Transfusion Reactions: No Reported Reaction Past Psychological History: Anxiety Smoking Status: Never smoker Past Alcohol Use History: None Reported Past Drug Use History: None Reported - Past Family History Mother Family Medical History: CVA/TIA, Diabetes Mellitus Additional Family Medical History / Comment(s): Mother at age 88 from CVA. Sister(s) Additional Family Medical History / Comment(s): Patient has 3 sisters with no major medical problems. Patient does not have any brothers. Patient has 2 sons with no major medical problems. Father Family Medical History: Cancer Additional Family Medical History / Comment(s): . General Exam Limitations: no limitations General appearance: alert, in no apparent distress Head exam: Present: atraumatic, normocephalic, normal inspection Eye exam: Present: normal appearance, PERRL, EOMI. Absent: scleral icterus, conjunctival injection, periorbital swelling ENT exam: Present: normal exam, mucous membranes moist Neck exam: Present: normal inspection. Absent: tenderness, meningismus, lymphadenopathy Respiratory exam: Present: normal lung sounds bilaterally. Absent: respiratory distress, wheezes, rales, rhonchi, stridor Cardiovascular Exam: Present: normal rhythm, tachycardia, normal heart sounds. Absent: systolic murmur, diastolic murmur, rubs, gallop, clicks GI/Abdominal exam: Present: soft, normal bowel sounds. Absent: distended, tenderness, guarding, rebound, rigid Extremities exam: Present: normal inspection, full ROM, normal capillary refill. Absent: tenderness, pedal edema, joint swelling, calf tenderness Back exam: Present: normal inspection Neurological exam: Present: alert, oriented X3, CN II-XII intact Psychiatric exam: Present: normal affect, normal mood Skin exam: Present: warm, dry, intact, normal color. Absent: rash Course Vital Signs 04/19/20 04/19/20 04/19/20 16:18 18:39 20:15 Temperature 100.9 F H 100.7 F H Pulse Rate 120 H 118 H 109 H Respiratory 16 19 18 Rate Blood Pressure 139/79 134/73 113/66 O2 Sat by Pulse 95 96 97 Oximetry 04/19/20 22:12 Temperature Pulse Rate 107 H Respiratory 18 Rate Blood Pressure 121/65 O2 Sat by Pulse 98 Oximetry EKG Findings - EKG Comments: EKG Findings:: EKG demonstrates a sinus tachycardia with a ventricular rate of 120. [place] interval is 136. QRS 78. QTC of 438. No acute ST segment elevations or depressions concerning for ischemic changes Medical Decision Making - Medical Decision Making On arrival patient is placed into room 6. A thorough history and physical exam was performed. Peripheral IV is established. Laboratory studies were conducted. She was given a dose of pain medications. Chest x-ray demonstrates no acute process. Because of the patient's ataxia I did send her over for CT of her head and cervical spine. The patient remains persistently tachycardic. Pulse ox does drop to 92%. Because of this I did recommend a CT the patient's chest. He does report that she has a contrast ALLERGY however the patient reports that this is not true. She does over for CT of her chest which demonstrates no pulmonary embolism. This is carried through the abdomen because the patient's report of chronic abdominal pain which demonstrates no bowel obstruction. The patient is reevaluated. Heart rate is mildly improved. She remains tachycardic. The patient is recently finished IV antibiotics a did re commend hospital admission for which patient did agree to. Discuss case with Dr. Kothari who accepted admission. Patient is awaiting a bed on the floor - Lab Data Result diagrams: 04/25/20 04:07 04/25/20 04:07 Lab Results 04/19/20 04/19/20 04/19/20 Range/Units 17:28 17:28 17:28 WBC 5.5 (3.8-10.6) k/uL RBC 3.61 L (3.80-5.40) m/uL Hgb 12.2 (11.4-16.0) gm/dL Hct 38.4 (34.0-46.0) % MCV 106.4 H (80.0-100.0) fL MCH 33.8 (25.0-35.0) pg MCHC 31.7 (31.0-37.0) g/dL RDW 15.3 (11.5-15.5) % Plt Count 63 L (150-450) k/uL Neutrophils % 62 % Lymphocytes % 25 % Monocytes % 7 % Eosinophils % 2 % Basophils % 2 % Neutrophils # 3.4 (1.3-7.7) k/uL Lymphocytes # 1.4 (1.0-4.8) k/uL Monocytes # 0.4 (0-1.0) k/uL Eosinophils # 0.1 (0-0.7) k/uL Basophils # 0.1 (0-0.2) k/uL Hypochromasia Slight Macrocytosis Moderate PT 11.0 (9.0-12.0) sec INR 1.1 (<1.2) APTT 23.1 (22.0-30.0) sec D-Dimer (<0.60) mg/L FEU Sodium (137-145) mmol/L Potassium (3.5-5.1) mmol/L Chloride (98-107) mmol/L Carbon Dioxide (22-30) mmol/L Anion Gap mmol/L BUN (7-17) mg/dL Creatinine (0.52-1.04) mg/dL Est GFR (CKD-EPI)AfAm (>60 ml/min/1.73 sqM) Est GFR (CKD-EPI)NonAf (>60 ml/min/1.73 sqM) Glucose (74-99) mg/dL POC Glucose (mg/dL) (75-99) mg/dL POC Glu Crochet Beader ID Plasma Lactic Acid [place] (0.7-2.0) mmol/L Calcium (8.4-10.2) mg/dL Ferritin (10.0-291.0) ng/mL Total Bilirubin (0.2-1.3) mg/dL AST (14-36) U/L ALT (4-34) U/L Alkaline Phosphatase (38-126) U/L Lactate Dehydrogenase (313-618) U/L Creatine Kinase (30-135) U/L C-Reactive Protein (<10.0) mg/L Total Protein (6.3-8.2) g/dL Albumin (3.5-5.0) g/dL Procalcitonin (0.02-0.09) ng/mL Urine Color Yellow Urine Appearance Clear (Clear) Urine pH 5.5 (5.0-8.0) Ur Specific [place] 1.011 (1.001-1.035) Urine Protein 2+ H (Negative) Urine Glucose (UA) Negative (Negative) Urine Ketones Negative (Negative) Urine Blood Moderate H (Negative) Urine Nitrite Negative (Negative) Urine Bilirubin Negative (Negative) Urine Urobilinogen <2.0 (<2.0) mg/dL Ur Leukocyte Esterase Trace H (Negative) Urine RBC 6 H (0-5) /hpf Urine WBC 14 H (0-5) /hpf Ur Squamous Epith Cells <1 (0-4) /hpf Amorphous Sediment Rare H (None) /hpf Hyaline Casts 17 H (0-2) /lpf Urine Mucus Rare H (None) /hpf Coronavirus (PCR) (Not Detected) 04/19/20 04/19/20 04/19/20 Range/Units 17:28 17:28 17:28 WBC (3.8-10.6) k/uL RBC (3.80-5.40) m/uL Hgb (11.4-16.0) gm/dL Hct (34.0-46.0) % MCV (80.0-100.0) fL MCH (25.0-35.0) pg MCHC (31.0-37.0) g/dL RDW (11.5-15.5) % Plt Count (150-450) k/uL Neutrophils % % Lymphocytes % % Monocytes % % Eosinophils % % Basophils % % Neutrophils # (1.3-7.7) k/uL Lymphocytes # (1.0-4.8) k/uL Monocytes # (0-1.0) k/uL Eosinophils # (0-0.7) k/uL Basophils # (0-0.2) k/uL Hypochromasia Macrocytosis PT (9.0-12.0) sec INR (<1.2) APTT (22.0-30.0) sec D-Dimer (<0.60) mg/L FEU Sodium 135 L (137-145) mmol/L Potassium 4.7 (3.5-5.1) mmol/L Chloride 102 (98-107) mmol/L Carbon Dioxide 28 (22-30) mmol/L Anion Gap 5 mmol/L BUN 37 H (7-17) mg/dL Creatinine 1.54 H (0.52-1.04) mg/dL Est GFR (CKD-EPI)AfAm 41 (>60 ml/min/1.73 sqM) Est GFR (CKD-EPI)NonAf 36 (>60 ml/min/1.73 sqM) Glucose 121 H (74-99) mg/dL POC Glucose (mg/dL) (75-99) mg/dL POC Glu Crochet Beader ID Plasma Lactic Acid [place] 1.9 (0.7-2.0) mmol/L Calcium 8.9 (8.4-10.2) mg/dL Ferritin 1237.7 H (10.0-291.0) ng/mL Total Bilirubin 1.0 (0.2-1.3) mg/dL AST 45 H (14-36) U/L ALT 7 (4-34) U/L Alkaline Phosphatase 70 (38-126) U/L Lactate Dehydrogenase 846 H (313-618) U/L Creatine Kinase 32 (30-135) U/L C-Reactive Protein 54.7 H (<10.0) mg/L Total Protein 7.0 (6.3-8.2) g/dL Albumin 3.5 (3.5-5.0) g/dL Procalcitonin (0.02-0.09) ng/mL Urine Color Urine Appearance (Clear) Urine pH (5.0-8.0) Ur Specific [place] (1.001-1.035) Urine Protein (Negative) Urine Glucose (UA) (Negative) Urine Ketones (Negative) Urine Blood (Negative) Urine Nitrite (Negative) Urine Bilirubin (Negative) Urine Urobilinogen (<2.0) mg/dL Ur Leukocyte Esterase (Negative) Urine RBC (0-5) /hpf Urine WBC (0-5) /hpf Ur Squamous Epith Cells (0-4) /hpf Amorphous Sediment (None) /hpf Hyaline Casts (0-2) /lpf Urine Mucus (None) /hpf Coronavirus (PCR) (Not Detected) 04/19/20 04/19/20 04/19/20 Range/Units 17:28 21:35 21:35 WBC (3.8-10.6) k/uL RBC (3.80-5.40) m/uL Hgb (11.4-16.0) gm/dL Hct (34.0-46.0) % MCV (80.0-100.0) fL MCH (25.0-35.0) pg MCHC (31.0-37.0) g/dL RDW (11.5-15.5) % Plt Count (150-450) k/uL Neutrophils % % Lymphocytes % % Monocytes % % Eosinophils % % Basophils % % Neutrophils # (1.3-7.7) k/uL Lymphocytes # (1.0-4.8) k/uL Monocytes # (0-1.0) k/uL Eosinophils # (0-0.7) k/uL Basophils # (0-0.2) k/uL Hypochromasia Macrocytosis PT (9.0-12.0) sec INR (<1.2) APTT (22.0-30.0) sec D-Dimer 2.61 H (<0.60) mg/L FEU Sodium (137-145) mmol/L Potassium (3.5-5.1) mmol/L Chloride (98-107) mmol/L Carbon Dioxide (22-30) mmol/L Anion Gap mmol/L BUN (7-17) mg/dL Creatinine (0.52-1.04) mg/dL Est GFR (CKD-EPI)AfAm (>60 ml/min/1.73 sqM) Est GFR (CKD-EPI)NonAf (>60 ml/min/1.73 sqM) Glucose (74-99) mg/dL POC Glucose (mg/dL) (75-99) mg/dL POC Glu Crochet Beader ID Plasma Lactic Acid [place] (0.7-2.0) mmol/L Calcium (8.4-10.2) mg/dL Ferritin (10.0-291.0) ng/mL Total Bilirubin (0.2-1.3) mg/dL AST (14-36) U/L ALT (4-34) U/L Alkaline Phosphatase (38-126) U/L Lactate Dehydrogenase (313-618) U/L Creatine Kinase (30-135) U/L C-Reactive Protein (<10.0) mg/L Total Protein (6.3-8.2) g/dL Albumin (3.5-5.0) g/dL Procalcitonin 0.41 H (0.02-0.09) ng/mL Urine Color Urine Appearance (Clear) Urine pH (5.0-8.0) Ur Specific [place] (1.001-1.035) Urine Protein (Negative) Urine Glucose (UA) (Negative) Urine Ketones (Negative) Urine Blood (Negative) Urine Nitrite (Negative) Urine Bilirubin (Negative) Urine Urobilinogen (<2.0) mg/dL Ur Leukocyte Esterase (Negative) Urine RBC (0-5) /hpf Urine WBC (0-5) /hpf Ur Squamous Epith Cells (0-4) /hpf Amorphous Sediment (None) /hpf Hyaline Casts (0-2) /lpf Urine Mucus (None) /hpf Coronavirus (PCR) Not Detected (Not Detected) 04/20/20 04/20/20 04/20/20 Range/Units 06:14 07:06 07:06 WBC 4.8 (3.8-10.6) k/uL RBC 3.57 L (3.80-5.40) m/uL Hgb 12.2 (11.4-16.0) gm/dL Hct 38.6 (34.0-46.0) % MCV 108.1 H (80.0-100.0) fL MCH 34.1 (25.0-35.0) pg MCHC 31.5 (31.0-37.0) g/dL RDW 15.4 (11.5-15.5) % Plt Count 58 L (150-450) k/uL Neutrophils % 57 % Lymphocytes % 29 % Monocytes % 8 % Eosinophils % 2 % Basophils % 2 % Neutrophils # 2.7 (1.3-7.7) k/uL Lymphocytes # 1.4 (1.0-4.8) k/uL Monocytes # 0.4 (0-1.0) k/uL Eosinophils # 0.1 (0-0.7) k/uL Basophils # 0.1 (0-0.2) k/uL Hypochromasia Moderate Macrocytosis Marked A PT (9.0-12.0) sec INR (<1.2) APTT (22.0-30.0) sec D-Dimer (<0.60) mg/L FEU Sodium 137 (137-145) mmol/L Potassium 4.6 (3.5-5.1) mmol/L Chloride 104 (98-107) mmol/L Carbon Dioxide 25 (22-30) mmol/L Anion Gap 8 mmol/L BUN 39 H (7-17) mg/dL Creatinine 1.81 H (0.52-1.04) mg/dL Est GFR (CKD-EPI)AfAm 34 (>60 ml/min/1.73 sqM) Est GFR (CKD-EPI)NonAf 30 (>60 ml/min/1.73 sqM) Glucose 125 H (74-99) mg/dL POC Glucose (mg/dL) 151 H (75-99) mg/dL POC Glu Crochet Beader STEPHEN Cyn Kovacs Plasma Lactic Acid [place] (0.7-2.0) mmol/L Calcium 8.8 (8.4-10.2) mg/dL Ferritin (10.0-291.0) ng/mL Total Bilirubin (0.2-1.3) mg/dL AST (14-36) U/L ALT (4-34) U/L Alkaline Phosphatase (38-126) U/L Lactate Dehydrogenase (313-618) U/L Creatine Kinase (30-135) U/L C-Reactive Protein (<10.0) mg/L Total Protein (6.3-8.2) g/dL Albumin (3.5-5.0) g/dL Procalcitonin (0.02-0.09) ng/mL Urine Color Urine Appearance (Clear) Urine pH (5.0-8.0) Ur Specific [place] (1.001-1.035) Urine Protein (Negative) Urine Glucose (UA) (Negative) Urine Ketones (Negative) Urine Blood (Negative) Urine Nitrite (Negative) Urine Bilirubin (Negative) Urine Urobilinogen (<2.0) mg/dL Ur Leukocyte Esterase (Negative) Urine RBC (0-5) /hpf Urine WBC (0-5) /hpf Ur Squamous Epith Cells (0-4) /hpf Amorphous Sediment (None) /hpf Hyaline Casts (0-2) /lpf Urine Mucus (None) /hpf Coronavirus (PCR) (Not Detected) Disposition Clinical Impression: UTI (urinary tract infection), Fever, Tachycardia Disposition: ADMITTED IP TO THIS [facility] Condition: Good Is patient prescribed a controlled substance at d/c from ED?: No Decision to Admit Reason: Admit from EC Decision Date: 04/19/20 Decision Time: 20:58
[2020-04-19] MEDS ORDERED: MORPHINE SULFATE 4 MG/ML SYRINGE IVP STA (18:38)
--- NOTE | 2020-04-19 19:41 | CT ---
EXAMINATION TYPE: CT chest angio for PE DATE OF EXAM: 04/19/2020 COMPARISON: HISTORY: Fever, elevated heart rate, hypoxia and rib pain. CT DLP: 315.6 mGycm Automated exposure control for dose reduction was used. CONTRAST: Performed with IV Contrast, patient injected with 80ml mL of Isovue 370. There are 3-D post processed images. There is some palmar emphysema. There is pleural and pulmonary scarring in the periphery of both lung s. There is patchy atelectasis at the lung bases. Heart size is fairly normal. There is no pericardia l effusion. There is no pleural effusion. Thoracic aorta is intact. There is no aneurysm or dissection. There is no mediastinal adenopathy. The re are no hilar masses. There is normal contrast opacification of the pulmonary arteries. There are n o filling defects. There is anterior wedging of T8 and T7 vertebra up to 75% with thoracic kyphotic d eformity. IMPRESSION: No evidence of pulmonary embolism. Patchy peripheral pulmonary fibrotic changes and atelectasis. COPD. No suspicious pulmonary mass.
--- NOTE | 2020-04-19 19:56 | CT ---
EXAMINATION TYPE: CT abdomen pelvis w con DATE OF EXAM: 04/19/2020 COMPARISON: None HISTORY: Fever, elevated heart rate, hypoxia and rib pain. CT DLP: 909.4 mGycm Automated exposure control for dose reduction was used. CONTRAST: Performed with IV Contrast, patient injected with 80ml mL of Isovue 370. Images obtained from the diaphragm to the floor the pelvis with IV contrast. There is some patchy linear infiltrate and atelectasis at the lung bases. There is no pleural effusio n. There is no pericardial effusion. Liver and spleen appear intact. Bile ducts are not dilated. There are clips from cholecystectomy. The re is large common bile duct that measures 1.9 cm. There is no pancreatic mass. Spleen is intact. The stomach is intact. There is no adrenal mass. There are bilateral multiple renal calculi that measure up to 7 mm. There i s no hydronephrosis. Ureters are not dilated. There is no evidence of a solid renal mass. There is no retroperitoneal adenopathy. Bladder distends smoothly. There is right hip prosthesis. There is no in guinal hernia. There is no free fluid in the pelvis. There is no mesenteric edema. There is no sign of a bowel obstruction. There is apparent total colect krystin with ileostomy on the right side of the abdomen. There is peristomal hernia containing loop of il eum. Lumbar spine is intact. There is no compression fracture. Bony pelvis is intact. IMPRESSION: Linear infiltrate and atelectasis at the lung bases. Ileostomy with peristomal hernia containing loop of ileum. No bowel obstruction. Nonobstructing bilateral renal calculi.
[2020-04-19] MEDS ORDERED: cefTRIAXone IN SWFI 1,000 MG/10 ML SYRINGE IVP STA (20:03)
[2020-04-19] MEDS ORDERED: NALOXONE 0.4 MG/ML 1 ML VIAL IV PRN (20:58)
[2020-04-19] MEDS ORDERED: ACETAMINOPHEN TAB 325 MG TAB PO STA (21:03)
[2020-04-19] MEDS: SODIUM CHLORIDE 0.9% 1,000 ML IV SCH (21:21)
[2020-04-19] MEDS: PANTOPRAZOLE 40 MG TABLET PO SCH (21:21)
[2020-04-19 22:38] LABS: C Reactive Protein 54.7 mg/L (<10.0)
[2020-04-19] MEDS: HYDROmorphone 1 MG/ML 1 ML SYRINGE IVP PRN (23:43)
[2020-04-19] MEDS: SERTRALINE 100 MG TAB PO SCH (23:43)
[2020-04-19] MEDS: MIRTAZAPINE 15 MG TAB PO SCH (23:43)
[2020-04-20 04:57] LABS: Ferritin 1237.7 ng/mL (10.0-291.0)
[2020-04-20 06:15] LABS: Glucose,Whole Blood 151 mg/dL (75-99)
[2020-04-20] MEDS: INSULIN ASPART (NovoLOG) 100 UNIT/ML VIAL SQ SCH ×4 (06:41→22:06)
[2020-04-20 07:24] LABS: Basophils # (A) 0.1 k/uL (0-0.2); Basophils % (A) 2 %; Eosinophils # (A) 0.1 k/uL (0-0.7); Eosinophils % (A) 2 %; HCT 38.6 % (34.0-46.0); HGB 12.2 gm/dL (11.4-16.0); Hypochromasia Moderate; Lymphocytes # (A) 1.4 k/uL (1.0-4.8); Lymphocytes % (A) 29 %; MCH 34.1 pg (25.0-35.0); MCHC 31.5 g/dL (31.0-37.0); MCV 108.1 fL (80.0-100.0); Macrocytosis Marked; Mean Platelet Volume 8.2; Monocytes # (A) 0.4 k/uL (0-1.0); Monocytes % (A) 8 %; Neutrophils # (A) 2.7 k/uL (1.3-7.7); Neutrophils % (A) 57 %; RBC 3.57 m/uL (3.80-5.40); RDW 15.4 % (11.5-15.5); WBC 4.8 k/uL (3.8-10.6)
[2020-04-20 07:28] LABS: Platelet Count 58 k/uL (150-450)
[2020-04-20 07:40] LABS: Calcium 8.8 mg/dL (8.4-10.2)
[2020-04-20 07:43] LABS: Potassium 4.6 mmol/L (3.5-5.1)
[2020-04-20] MEDS: CYANOCOBALAMIN 500 MCG TAB PO SCH (09:24)
[2020-04-20] MEDS: ALPRAZolam 1 MG TAB PO SCH ×2 (09:24→22:06)
[2020-04-20] MEDS: allopurinoL 100 MG TAB PO SCH (09:24)
[2020-04-20] MEDS: CALCIUM CARBONATE 500 MG CHEWABLE PO SCH (09:24)
[2020-04-20] MEDS: CHOLECALCIFEROL 1,000 UNIT TAB PO SCH (09:24)
[2020-04-20] MEDS: ATORVASTATIN 20 MG TAB PO SCH (09:24)
[2020-04-20] MEDS: MAGNESIUM OXIDE 400 MG TAB PO SCH (09:24)
[2020-04-20] MEDS: PANTOPRAZOLE 40 MG TABLET PO SCH ×2 (09:24→22:06)
[2020-04-20] MEDS: FERROUS SULFATE 325 MG TAB PO SCH (09:24)
[2020-04-20] MEDS: HYDROmorphone 1 MG/ML 1 ML SYRINGE IVP PRN ×3 (09:24→22:04)
[2020-04-20] MEDS: amLODIPine 2.5 MG TAB PO SCH (09:24)
--- NOTE | 2020-04-20 11:19 | P.HPIM ---
History of Present Illness H&P Date: 04/20/20 This is a 64-year-old female with past medical history of Crohn's disease status post ileostomy, type 2 diabetes, hepatitis C liver disease, osteoarthritis history of kidney stones, chronic iron deficiency anemia, with an issue with stomal bleed on and off. She was recently hospitalized in February which time she underwent an amputation of the left third toe due to gangrene and underlying osteomyelitis by Dr. Briones. She was maintained on IV antibiotics with Kefzol for a 6 week course and finished yesterday. She was then transitioned to oral Keflex 500 mg 3 times daily. PICC line was also removed yesterday. Patient feels that she has dizziness and is off balance and feels she will fall over when she stands that started yesterday. She is currently ambulatory on the right lower extremity. She was also having low-grade fever, increased pain with deep inspiration. Pain is to the lower rib areas bilaterally. Patient presented to [facility] emergency center for evaluation. Temperature was 100.9, heart rate 120, blood pressure 139/79, pulse ox 95% on room air. EKG was a sinus tachycardia without acute ST changes. WBC 5.5, hemoglobin 12.2 2. Platelet count 63. Sodium 135, potassium 4.7, chloride 102, CO2 28, BUN 37 creatinine 1.54. Blood sugar 121. D-dimer 2.61. Ferritin 1237.7. LDH 846. CRP 54.7. Pro-calcitonin 0.41. AST 45. Urinalysis clear with blood moderate, leukoesterase trace and PVCs 14. Blood culture urine culture and COVID-19 are pending. CTA of the chest was negative for pulmonary embolism. Patchy peripheral pulmonary fibrotic changes and atelectasis. COPD. No suspicious mass. CAT scan of the abdomen and pelvis with contrast revealed linear infiltrate and atelectasis at the lung bases. Ileostomy with. He stomal hernia containing a loop of ileum. No bowel obstruction. Nonobstructive bilateral renal calculi. Consult in place for neurology and pulmonary medicine. Patient admitted to the cardiac stepdown unit. Review of Systems Constitutional: Reports fatigue, Reports malaise, Denies chills, Denies fever, Denies weight loss Eyes: denies blurred vision, denies pain Ears, nose, mouth and throat: Reports vertigo, Denies headache, Denies nasal congestion, Denies nasal discharge, Denies sore throat Cardiovascular: Reports chest pain, Reports dyspnea on exertion, Reports lightheadedness, Denies edema, Denies leg edema, Denies shortness of breath Respiratory: Denies cough, Denies excessive sputum, Denies hemoptysis, Denies home oxygen, Denies respiratory infections Gastrointestinal: Denies abdominal pain, Denies bloating, Denies diarrhea, Denies loss of appetite, Denies nausea, Denies vomiting Genitourinary: Denies dysuria, Denies hematuria, Denies urgency, Denies urinary frequency Menstruation: Reports postmenopausal Musculoskeletal: Denies frequent falls, Denies gait dysfunction, Denies muscle weakness, Denies myalgias Integumentary: Denies pruritus, Denies rash, Denies wounds Neurological: Denies change in mentation, Denies change in speech, Denies numbness, Denies seizures, Denies weakness Psychiatric: Denies anxiety, Denies depression Endocrine: Denies fatigue, Denies weight change Past Medical History Past Medical History: Blood Disorder, Diabetes Mellitus, GERD/Reflux, Hyperlipidemia, Hypertension, Liver Disease, Osteoarthritis (OA), Renal Disease Additional Past Medical History / Comment(s): crohns, hx. hep c, past hx. sepsis & ards 2007, has ileostomy, hx. kidney stones, hx. of infection,has spacer in, hx. anemia related to intermittent bleeding from stoma, has past hx., uti , low platelets septicemia. 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 Date of last positivie culture/infection: 04/25/16 MDRO Source:: Blood & Right Hip Past Surgical History: Appendectomy, Bowel Resection, Cholecystectomy, Hernia Repair, Hysterectomy, Tubal Ligation Additional Past Surgical History / Comment(s): ileostomy 2009 WITH 3-4 RE- SUTURING EPISODES RELATED TO BLEEDING, ileoscopy w/argon gas coagulation of stoma, 10-22-16 revison rt toal hip arthroplasty; 3rd toe amputation on left foot 02/2020 Past Anesthesia/Blood Transfusion Reactions: No Reported Reaction Past Psychological History: Anxiety Additional Psychological History / Comment(s): pt normally lives with her spouse and 1 pet dog in a single level home that has 3 steps in which to enter. but went to [facility] after dc/d from [facility] 06-04-17 Smoking Status: Former smoker Past Alcohol Use History: None Reported Additional Past Alcohol Use History / Comment(s): started 1974, quit smoking 2007, 1ppd Past Drug Use History: None Reported - Past Family History Mother Family Medical History: CVA/TIA, Diabetes Mellitus Additional Family Medical History / Comment(s): Mother at age 88 from CVA. Sister(s) Additional Family Medical History / Comment(s): Patient has 3 sisters with no major medical problems. Patient does not have any brothers. Patient has 2 sons with no major medical problems. Father Family Medical History: Cancer Additional Family Medical History / Comment(s): . Medications and Allergies Home Medications Medication Instructions Recorded Confirmed Type Mirtazapine [Remeron] 15 mg PO HS 06/11/17 04/19/20 History Sertraline HCl [Zoloft] 100 mg PO HS 07/26/17 04/19/20 History Ferrous Sulfate [Iron (65 MG 325 mg PO DAILY 06/19/19 04/19/20 History Elemental)] Magnesium Oxide [Mag-Ox] 250 mg PO DAILY 06/19/19 04/19/20 History Cholecalciferol (Vitamin D3) 2,000 unit PO DAILY #30 capsule 06/29/19 04/19/20 Rx [Vitamin D3] predniSONE [Deltasone] 20 mg PO DAILY #30 tab 06/30/19 04/19/20 Rx ALPRAZolam [Xanax] 1 mg PO BID 01/26/20 04/19/20 History Rosuvastatin [Crestor] 10 mg PO DAILY 01/26/20 04/19/20 History allopurinoL [Zyloprim] 100 mg PO DAILY 01/26/20 04/19/20 History sitaGLIPtin PHOSPHATE [Januvia] 50 mg PO DAILY 01/26/20 04/19/20 History amLODIPine [Norvasc] 2.5 mg PO DAILY #30 tab 03/07/20 04/19/20 Rx Calcium Carbonate [Calcium] 600 mg PO DAILY 04/19/20 04/19/20 History Cephalexin [Keflex] 500 mg PO TID 04/19/20 04/19/20 History Cyanocobalamin (Vitamin B-12) 500 mcg PO DAILY 04/19/20 04/19/20 History [Vitamin B-12] Furosemide [Lasix] 40 mg PO DAILY 04/19/20 04/19/20 History HYDROcodone/APAP 7.5-325MG [Hillpoint 1 tab PO BID 04/19/20 04/19/20 History 7.5-325] Lifitegrast [Xiidra] 1 drop BOTH EYES BID 04/19/20 04/19/20 History Pantoprazole [Protonix] 40 mg PO BID 04/19/20 04/19/20 History Potassium Chloride ER [K-Dur 10] 10 meq PO DAILY 04/19/20 04/19/20 History Allergies Allergy/AdvReac Type Severity Reaction Status Date / Time adhesive tape Allergy Severe Rash/Hives/Skin Verified 04/19/20 20:41 Peeling levofloxacin [From Levaquin] Allergy Severe Swelling/ra Verified 04/19/20 20:41 sh Quinolones Allergy Severe Anaphylaxis Verified 04/19/20 20:41 /Swelling enoxaparin [From Lovenox] Allergy GI bleed Verified 04/19/20 20:41 NSAIDS (Non-Steroidal AdvReac Severe GI Verified 04/19/20 20:41 Anti-Inflamma Bleeding/Liver Damage warfarin [From Coumadin] AdvReac Severe Abdominal Verified 04/19/20 20:41 Pain Physical Exam Vitals: Vital Signs Temp Pulse Pulse Resp BP BP Pulse Ox 04/20/20 04:16 99 F 101 H 18 122/74 94 L 04/20/20 00:00 105 H 19 04/19/20 22:27 99.3 F 105 H 19 98/63 94 L 04/19/20 22:12 107 H 18 121/65 98 04/19/20 20:15 109 H 18 113/66 97 04/19/20 18:39 100.7 F H 118 H 19 134/73 96 04/19/20 16:18 100.9 F H 120 H 16 139/79 95 Intake and Output 04/19/20 04/20/20 04/20/20 22:59 06:59 14:59 Intake Total 120 Balance 120 Intake: Intake, IV Titration 120 Amount Sodium Chloride 0.9% 1, 120 000 ml @ 20 mls/hr IV . Q24H DARIA Rx#:[id number] Other: Voiding Method Toilet # Voids 1 Weight 73.482 kg 78.5 kg Physical Examination Gen: This is a 64-year-old female. Patient appears to be comfortable and in no acute distress. HEENT: Head is atraumatic, normocephalic. Pupils equal, round. Sclerae is anicteric. NECK: Supple. No JVD. No lymphadenopathy. No thyromegaly. LUNGS: Crackles to the bilateral bases. No wheezing. No intercostal retractions. HEART: Regular rate and rhythm. First heart sound is depressed, second heart sound is normal, 2/6 systolic ejection murmur at the left sternal border. ABDOMEN: Soft. Bowel sounds are present. No masses. No tenderness. Ostomy is pink, no active bleeding, brown stool in ostomy bag EXTREMITIES: No pedal edema. No calf tenderness. Dorsalis pedis +1 bilaterally. Left foot wound is healed, no drainage, no bleeding. No signi ficant erythema or edema. NEUROLOGICAL: Patient is awake, alert and oriented x3. Cranial nerves 2 through 12 are grossly intact. Results CBC & Chem 7: 04/20/20 07:06 04/21/20 11:24 Labs: Abnormal Lab Results - Last 24 Hours (Table) 04/19/20 04/19/20 04/19/20 Range/Units 17:28 17:28 17:28 RBC 3.61 L (3.80-5.40) m/uL MCV 106.4 H (80.0-100.0) fL Plt Count 63 L (150-450) k/uL Macrocytosis D-Dimer (<0.60) mg/L FEU Sodium 135 L (137-145) mmol/L BUN 37 H (7-17) mg/dL Creatinine 1.54 H (0.52-1.04) mg/dL Glucose 121 H (74-99) mg/dL POC Glucose (mg/dL) (75-99) mg/dL Ferritin (10.0-291.0) ng/mL AST 45 H (14-36) U/L Lactate Dehydrogenase (313-618) U/L C-Reactive Protein (<10.0) mg/L Procalcitonin (0.02-0.09) ng/mL Urine Protein 2+ H (Negative) Urine Blood Moderate H (Negative) Ur Leukocyte Esterase Trace H (Negative) Urine RBC 6 H (0-5) /hpf Urine WBC 14 H (0-5) /hpf Amorphous Sediment Rare H (None) /hpf Hyaline Casts 17 H (0-2) /lpf Urine Mucus Rare H (None) /hpf 04/19/20 04/19/20 04/19/20 Range/Units 17:28 17:28 21:35 RBC (3.80-5.40) m/uL MCV (80.0-100.0) fL Plt Count (150-450) k/uL Macrocytosis D-Dimer 2.61 H (<0.60) mg/L FEU Sodium (137-145) mmol/L BUN (7-17) mg/dL Creatinine (0.52-1.04) mg/dL Glucose (74-99) mg/dL POC Glucose (mg/dL) (75-99) mg/dL Ferritin 1237.7 H (10.0-291.0) ng/mL AST (14-36) U/L Lactate Dehydrogenase 846 H (313-618) U/L C-Reactive Protein 54.7 H (<10.0) mg/L Procalcitonin 0.41 H (0.02-0.09) ng/mL Urine Protein (Negative) Urine Blood (Negative) Ur Leukocyte Esterase (Negative) Urine RBC (0-5) /hpf Urine WBC (0-5) /hpf Amorphous Sediment (None) /hpf Hyaline Casts (0-2) /lpf Urine Mucus (None) /hpf 04/20/20 04/20/20 04/20/20 Range/Units 06:14 07:06 07:06 RBC 3.57 L (3.80-5.40) m/uL MCV 108.1 H (80.0-100.0) fL Plt Count 58 L (150-450) k/uL Macrocytosis Marked A D-Dimer (<0.60) mg/L FEU Sodium (137-145) mmol/L BUN 39 H (7-17) mg/dL Creatinine 1.81 H (0.52-1.04) mg/dL Glucose 125 H (74-99) mg/dL POC Glucose (mg/dL) 151 H (75-99) mg/dL Ferritin (10.0-291.0) ng/mL AST (14-36) U/L Lactate Dehydrogenase (313-618) U/L C-Reactive Protein (<10.0) mg/L Procalcitonin (0.02-0.09) ng/mL Urine Protein (Negative) Urine Blood (Negative) Ur Leukocyte Esterase (Negative) Urine RBC (0-5) /hpf Urine WBC (0-5) /hpf Amorphous Sediment (None) /hpf Hyaline Casts (0-2) /lpf Urine Mucus (None) /hpf Microbiology - Last 24 Hours (Table) 04/19/20 17:28 Urine Culture - Preliminary Urine,Voided Thrombosis Risk Factor Assmnt - DVT/VTE Prophylaxis DVT/VTE Prophylaxis: Pharmacologic Prophylaxis ordered - Choose All That Apply Each Factor Represents 1 point: Obesity (BMI >25) Each Risk Factor Represents 2 Points: Age 61-74 years Thrombosis Risk Factor Assessment Total Risk Factor Score: 3 Thrombosis Risk Factor Assessment Level: Moderate Risk Assessment and Plan Plan: 1. Low-grade fever with lightheadedness, dizziness, low chest discomfort. Rule out Covid 19, doubt urinary tract infection as cause of symptoms. Consult with Dr. Norris. She is status post 1 dose of Rocephin last evening. Urine culture, blood culture in progress. COVID-19 test has been obtained and results are pending. 2. Ataxia. Consult with neurology 3. History of sepsis, bacteremia secondary to left third toe gangrene with underlying osteomyelitis status post amputation 02/27. Patient completed course of IV antibiotics, yesterday transitioned to oral Keflex. 4. Elevated d-dimer. Pulmonary embolism ruled out by CTA. 5. Chronic anemia of chronic illness, currently stable. Continue iron 325 mg daily. 6. Recent history of stomal bleed. No active bleeding at this time. 7. Chronic kidney disease stage III. Avoid nephrotoxic agents. 8. Diabetes mellitus type 2. Continue NovoLog scale before meals and at bedtime. Patient is on Januvia 50 mg daily at home. 9. Hepatitis C in remission, stable. 10. Crohn's disease status post ileostomy in 2007 on chronic prednisone 20 mg daily. 11. Generalized anxiety disorder and recurrent depression. Continue Xanax 1 mg twice daily and Zoloft 100 mg at bedtime, Remeron 50 mg at bedtime. 12. Hypertension hypertensive cardiovascular disease. Continue amlodipine 2.5 mg daily. 13. Vitamin deficiencies. Continue vitamin D 12, vitamin D, magnesium supplements. 14. Chronic gout. Continue allopurinol 100 mg daily. 15. Hyperlipidemia. Continue Lipitor 20 mg at bedtime. 16. Chronic thrombocytopenia. 17. GI prophylaxis. Pepcid. 18. DVT prophylaxis. Knee-high CRISTHIAN hose. Patient admitted to the hospital for a minimum of 2 night stay. Discharge plan: Home Impression and plan of care have been directed as dictated by the signing physician. Glenis Hernandez nurse practitioner acting as scribe for signing physician.
[2020-04-20] MEDS: NON FORMULARY DRUG (Lifitegrast [Xiidra] 1 EACH Droperette) BOTH EYES SCH ×2 (11:38→22:08)
[2020-04-20 11:59] LABS: Glucose,Whole Blood 130 mg/dL (75-99)
--- NOTE | 2020-04-20 12:38 | CONS ---
CONSULTATION REASON FOR CONSULT: Renal failure. HISTORY OF PRESENT ILLNESS: Patient is a 64-year-old female with history of chronic kidney disease stage 3 with baseline creatinine about 1.4-1.2 mg/dL. Patient was recently discharged from the hospital where she was admitted status post fall. She was found to have MSSA bacteremia and was discharged on 6 weeks of IV antibiotics. It was switched over to Keflex about 3-4 days ago and the PICC line was discontinued about 3 days ago per patient. Patient also had left third toe amputation for gangrene and osteomyelitis. Prior to this admission, patient noticed increased weakness. She states that she felt funny in her head and was complaining of some dizziness. She did not have any fever. No significant drainage from her foot. Patient did have a temp of 100.9 degrees Fahrenheit. Her UA showed WBCs 14 with 2+ protein and she has been started on antibiotics for possible UTI. PAST MEDICAL HISTORY: Type 2 diabetes, gastroesophageal reflux disease, hyperlipidemia, hypertension, CKD, stage III chronic liver disease, history of hepatitis C, history of nephrolithiasis, recent history of GI, MSSA bacteremia. PAST SURGICAL HISTORY: Appendectomy, bowel resection, cholecystectomy, hernia repair, hysterectomy, tubal ligation, history of ileostomy with revision of the stoma in 2017. History of the right hip arthroplasty. SOCIAL HISTORY: Negative for smoking, drug abuse or alcohol abuse. MEDICATIONS: Prior to admission included Remeron, Zoloft, Imodium, iron, magnesium, vitamin D3, Xanax, prednisone, Crestor, Zyloprim, Zestril, Januvia. ALLERGIES: Include TAPE, LEVAQUIN, QUINOLONES, LOVENOX, IV CONTRAST, NSAIDS, COUMADIN, which caused abdominal pain. PHYSICAL EXAMINATION: Patient is comfortable, awake, she is not in any acute distress. She is alert and oriented x3. Blood pressure was 122/74, heart rate 101 per minute. She is currently afebrile. Examination of the heart S1, S2. Examination of the lungs, bilateral breath sounds are heard. Abdomen is soft, nontender. Examination of the lower extremities shows no significant edema. [employer] exam grossly intact. LABS: Show sodium 137, potassium 4.6, chloride 104, BUN 39, creatinine 1.8, hemoglobin 12.2 g/dL. ASSESSMENT: 1. Acute kidney injury, mostly prerenal associated with recent diuresis as outpatient. Currently, patient is not on any Lasix. I will add gentle IV hydration. Repeat labs in a.m. Continue to avoid nephrotoxic medications. 2. Pyuria, rule out urinary tract infection, although total WBCs were only 14. Urine culture is currently pending. 3. Chronic kidney disease stage 3 baseline creatinine 1.4-1.5 mg/dL secondary to diabetic kidney disease and nephrosclerosis. 4. Recent left foot infection with osteomyelitis and amputation of the third toe, status post IV antibiotics. 5. Weakness and ataxia. Neurology has been consulted. 6. Type 2 diabetes. 7. History of hepatitis C. 8. Crohn disease, status post ileostomy, maintained on prednisone. PLAN: Add gentle IV hydration. Repeat labs in a.m. Continue to avoid nephrotoxic agents. Follow up on urine cultures. Thank you for this consultation. Will continue to follow the patient with you during her hospitalization. MMODL / IJN: [id number] /
[2020-04-20] MEDS: SODIUM CHLORIDE 0.9% 1,000 ML IV SCH (14:22)
--- NOTE | 2020-04-20 15:01 | P.CNPUL ---
History of Present Illness Consult date: 04/20/20 Chief complaint: Fever History of present illness: 64-year-old female patient, presented to the hospital with fever, tachycardia, generalized weakness and difficulty with mobility. The patient has multiple medical by was and comorbidities most significant in the recent of which is an osteomyelitis of the toe and the patient underwent an amputation of the left third toe due to a gangrene with secondary osteomyelitis of the amputation was done by Dr. Chirinos and subsequently the patient was discharged on IV antibiotics and the patient completed a 6 week course of Solu followed by oral Keflex. The patient was noted to be slightly tachycardic in the emergency department. She was receiving a temperature 100.9. Otherwise echo was a 5.5 w ith a hemoglobin of 12.2 and she has a chronic thrombocytopenia of 63. She has chronic kidney disease in the creatinine is at baseline at 1.5. Her d-dimer was at 2.6. Ferritin was elevated at 1437 with a protest on level of 0.41, LFTs were normal, LDH was 846 and the C-reactive protein was 54.7. UA was positive for 40 WBCs, 6 RBCs and computed tomography scan of the chest showed no evidence of any acute pneumonia. There is some limited patchy peripheral pulmonary fibrotic changes atelectasis in the lung bases. In addition there was an anterior wedging of the T8 and T7 vertebral body with a 75% compression and evidence of thoracic kyphotic deformity. The CAT scan of the abdomen showed some atelectatic changes in lung bases. Ileostomy was present and there was a peristomal hernia with a bowel loop containing ileum. There was no definitive OBSTRUCTION. THERE WAS EVIDENCE OF NONOBSTRUCTIVE BILATERAL RENAL CALCULI. THE PATIENT IS CURRENTLY ON [employer]TIBIOT[employer]. [facility] COVID 19 TESTING WAS SENT AND THE RESULTS ARE PENDING FOR NOW. Noted the patient had a PICC line was pulled out once the patient was started on oral antibiotics. She is still slightly tachycardic. She is pulse oxing 98% on 3 L of oxygen by nasal cannula. Most recent temperature is 99.1. Review of Systems Constitutional: Reports fatigue, Reports fever Eyes: denies as per HPI, denies blurred vision, denies bulging eye, denies dec reased vision, denies diplopia, denies discharge, denies dry eye, denies irritation, denies itching, denies pain, denies photophobia, denies loss of peripheral vision, denies loss of vision, denies tunnel vision/blind spots Ears: deny: decreased hearing, ear discharge, earache, tinnitus Ears, nose, mouth and throat: Reports as per HPI Breasts: absent: as per HPI, change in shape, gynecomastia, masses, nipple discharge, pain, skin changes, swelling Cardiovascular: Reports as per HPI, Reports decreased exercise tolerance Respiratory: Reports as per HPI Gastrointestinal: Reports as per HPI (Patient has an ileostomy) Genitourinary: Reports as per HPI Menstruation: Reports as per HPI Musculoskeletal: Reports as per HPI ( and previous amputation secondary to an underlying osteomyelitis) Musculoskeletal: absent: ankle pain, ankle stiffness, ankle swelling Integumentary: Reports as per HPI Neurological: Reports as per HPI Psychiatric: Reports as per HPI Endocrine: Reports as per HPI Hematologic/Lymphatic: Reports as per HPI Allergic/Immunologic: Reports as per HPI Past Medical History Past Medical History: Blood Disorder, Diabetes Mellitus, GERD/Reflux, Hyperlipidemia, Hypertension, Liver Disease, Osteoarthritis (OA), Renal Disease Additional Past Medical History / Comment(s): History of Crohn's disease with a previous ileostomy, a stomal hernia, hepatitis C, previous history of sepsis and ARDS in 2007, history of nephrolithiasis, nonobstructive, history of osteomyelitis with a previous amputation of the left third toe, osteoarthritis, chronic iron deficiency, chronic thrombocytopenia, chronic kidney disease, hypertension, hyperlipidemia, diabetes mellitus History of Any Multi-Drug Resistant Organisms: MRSA Date of last positivie culture/infection: 04/25/16 MDRO Source:: Blood & Right Hip Past Surgical History: Appendectomy, Bowel Resection, Cholecystectomy, Hernia Repair, Hysterectomy, Tubal Ligation Additional Past Surgical History / Comment(s): ileostomy 2009 WITH 3-4 RE- SUTURING EPISODES RELATED TO BLEEDING, ileoscopy w/argon gas coagulation of stoma, 10-22-16 revison rt toal hip arthroplasty; 3rd toe amputation on left foot 02/2020 Past Anesthesia/Blood Transfusion Reactions: No Reported Reaction Past Psychological History: Anxiety Additional Psychological History / Comment(s): pt normally lives with her spouse and 1 pet dog in a single level home that has 3 steps in which to enter. but went to [facility] after dc/d from [facility] 06-04-17 Smoking Status: Former smoker Past Alcohol Use History: None Reported Additional Past Alcohol Use History / Comment(s): started 1974, quit smoking 2007, 1ppd Past Drug Use History: None Reported - Past Family History Mother Family Medical History: CVA/TIA, Diabetes Mellitus Additional Family Medical History / Comment(s): Mother at age 88 from CVA. Sister(s) Additional Family Medical History / Comment(s): Patient has 3 sisters with no major medical problems. Patient does not have any brothers. Patient has 2 sons with no major medical problems. Father Family Medical History: Cancer Additional Family Medical History / Comment(s): . Medications and Allergies Home Medications Medication Instructions Recorded Confirmed Type Mirtazapine [Remeron] 15 mg PO HS 06/11/17 04/19/20 History Sertraline HCl [Zoloft] 100 mg PO HS 07/26/17 04/19/20 History Ferrous Sulfate [Iron (65 MG 325 mg PO DAILY 06/19/19 04/19/20 History Elemental)] Magnesium Oxide [Mag-Ox] 250 mg PO DAILY 06/19/19 04/19/20 History Cholecalciferol (Vitamin D3) 2,000 unit PO DAILY #30 capsule 06/29/19 04/19/20 Rx [Vitamin D3] predniSONE [Deltasone] 20 mg PO DAILY #30 tab 06/30/19 04/19/20 Rx ALPRAZolam [Xanax] 1 mg PO BID 01/26/20 04/19/20 History Rosuvastatin [Crestor] 10 mg PO DAILY 01/26/20 04/19/20 History allopurinoL [Zyloprim] 100 mg PO DAILY 01/26/20 04/19/20 History sitaGLIPtin PHOSPHATE [Januvia] 50 mg PO DAILY 01/26/20 04/19/20 History amLODIPine [Norvasc] 2.5 mg PO DAILY #30 tab 03/07/20 04/19/20 Rx Calcium Carbonate [Calcium] 600 mg PO DAILY 04/19/20 04/19/20 History Cephalexin [Keflex] 500 mg PO TID 04/19/20 04/19/20 History Cyanocobalamin (Vitamin B-12) 500 mcg PO DAILY 04/19/20 04/19/20 History [Vitamin B-12] Furosemide [Lasix] 40 mg PO DAILY 04/19/20 04/19/20 History HYDROcodone/APAP 7.5-325MG [[place] 1 tab PO BID 04/19/20 04/19/20 History 7.5-325] Lifitegrast [Xiidra] 1 drop BOTH EYES BID 04/19/20 04/19/20 History Pantoprazole [Protonix] 40 mg PO BID 04/19/20 04/19/20 History Potassium Chloride ER [K-Dur 10] 10 meq PO DAILY 04/19/20 04/19/20 History Allergies Allergy/AdvReac Type Severity Reaction Status Date / Time adhesive tape Allergy Severe Rash/Hives/Skin Verified 04/19/20 20:41 Peeling levofloxacin [From Levaquin] Allergy Severe Swelling/ra Verified 04/19/20 20:41 sh Quinolones Allergy Severe Anaphylaxis Verified 04/19/20 20:41 /Swelling enoxaparin [From Lovenox] Allergy GI bleed Verified 04/19/20 20:41 NSAIDS (Non-Steroidal AdvReac Severe GI Verified 04/19/20 20:41 Anti-Inflamma Bleeding/Liver Damage warfarin [From Coumadin] AdvReac Severe Abdominal Verified 04/19/20 20:41 Pain Physical Exam Vitals: Vital Signs Temp Pulse Pulse Resp BP BP Pulse Ox 04/20/20 08:00 99.1 F 104 H 18 145/74 98 04/20/20 04:16 99 F 101 H 18 122/74 94 L 04/20/20 00:00 105 H 19 04/19/20 22:27 99.3 F 105 H 19 98/63 94 L 04/19/20 22:12 107 H 18 121/65 98 04/19/20 20:15 109 H 18 113/66 97 04/19/20 18:39 100.7 F H 118 H 19 134/73 96 04/19/20 16:18 100.9 F H 120 H 16 139/79 95 Intake and Output 04/19/20 04/20/20 04/20/20 22:59 06:59 14:59 Intake Total 120 120 Balance 120 120 Intake: Intake, IV Titration 120 Amount Sodium Chloride 0.9% 1, 120 000 ml @ 20 mls/hr IV . Q24H [facility] Rx#:[id number] Oral 120 Other: Voiding Method Toilet Toilet # Voids 1 1 # Bowel Movements 0 Weight 73.482 kg 78.5 kg Gen: This is a 64-year-old female. Patient appears to be comfortable and in no acute distress. Head exam was generally normal. There was no scleral icterus or corneal arcus. Mucous membranes were moist. Neck was supple and without jugular venous distension, thyromegaly, or carotid bruits. Carotids were easily palpable bilaterally. There was no adenopathy. LUNGS: Crackles to the bilateral bases. No wheezing. No intercostal retractions. HEART: Regular rate and rhythm. First heart sound is depressed, second heart so und is normal, 2/6 systolic ejection murmur at the left sternal border. ABDOMEN: Soft. Bowel sounds are present. No masses. No tenderness. Ostomy is pink, no active bleeding, brown stool in ostomy bag EXTREMITIES: No pedal edema. No calf tenderness. Dorsalis pedis +1 bilaterally. Left foot wound is healed, no drainage, no bleeding. No significant erythema or edema. NEUROLOGICAL: Patient is awake, alert and oriented x3. Cranial nerves 2 through 12 are grossly intact. Results - Laboratory Findings CBC and BMP: 04/20/20 07:06 04/20/20 07:06 PT/INR, D-dimer PT 11.0 sec (9.0-12.0) 04/19/20 17:28 INR 1.1 (<1.2) 04/19/20 17:28 D-Dimer 2.61 mg/L FEU (<0.60) H 04/19/20 21:35 Abnormal lab findings: Abnormal Labs 04/19/20 04/19/20 04/19/20 17:28 17:28 17:28 RBC 3.61 L MCV 106.4 H Plt Count 63 L Macrocytosis D-Dimer Sodium 135 L BUN 37 H Creatinine 1.54 H Glucose 121 H POC Glucose (mg/dL) Ferritin AST 45 H Lactate Dehydrogenase C-Reactive Protein Procalcitonin Urine Protein 2+ H Urine Blood Moderate H Ur Leukocyte Esterase Trace H Urine RBC 6 H Urine WBC 14 H Amorphous Sediment Rare H Hyaline Casts 17 H Urine Mucus Rare H 04/19/20 04/19/20 04/19/20 17:28 17:28 21:35 RBC MCV Plt Count Macrocytosis D-Dimer 2.61 H Sodium BUN Creatinine Glucose POC Glucose (mg/dL) Ferritin 1237.7 H AST Lactate Dehydrogenase 846 H C-Reactive Protein 54.7 H Procalcitonin 0.41 H Urine Protein Urine Blood Ur Leukocyte Esterase Urine RBC Urine WBC Amorphous Sediment Hyaline Casts Urine Mucus 04/20/20 04/20/20 04/20/20 06:14 07:06 07:06 RBC 3.57 L MCV 108.1 H Plt Count 58 L Macrocytosis Marked A D-Dimer Sodium BUN 39 H Creatinine 1.81 H Glucose 125 H POC Glucose (mg/dL) 151 H Ferritin AST Lactate Dehydrogenase C-Reactive Protein Procalcitonin Urine Protein Urine Blood Ur Leukocyte Esterase Urine RBC Urine WBC Amorphous Sediment Hyaline Casts Urine Mucus 04/20/20 11:40 RBC MCV Plt Count Macrocytosis D-Dimer Sodium BUN Creatinine Glucose POC Glucose (mg/dL) 130 H Ferritin AST Lactate Dehydrogenase C-Reactive Protein Procalcitonin Urine Protein Urine Blood Ur Leukocyte Esterase Urine RBC Urine WBC Amorphous Sediment Hyaline Casts Urine Mucus - Diagnostic Findings Chest x-ray: image reviewed CT scan - chest: image reviewed Assessment and Plan Plan: 1 acute febrile illness currently under investigation. The patient is slightly tachycardic and the patient also has some slight elevation of the pleural calcitonin level. Nevertheless, the rest of the inflammatory markers are also elevated. The CAT scan of the chest is not suggestive coronavirus Covid 19. Nevertheless, this cannot be completely ruled out. The result of the nasal swab still pending for now. Patient is hemodynamically stable. No other obvious source of infection at this point in time. The patient was given a dose of Rocephin pending further cultures 2 history of Crohn disease 3 previous history of ileostomy with a parastomal hernia which is currently stable. 4 hepatitis C 5 chronic kidney disease with a baseline creatinine 6 diabetes mellitus 7 hypertension 8 chronic thrombocytopenia 9 chronic and the patient's anemia 10 history of gangrenous toe and osteomyelitis with presentation of the left third toe completing IV antibiotics with Kefzol be a PICC line that was removed and following that the patient was treated with a course of Keflex 11 nephrolithiasis, nonobstructive 12 previous history of sepsis/ARDS in 2007 13 history of gout 14 hyperlipidemia 15 atelectatic changes in lung bases bilaterally, please refer to the CAT scan of the abdomen and CAT scan of the chest Plan awaiting urine cultures and blood cultures Awaiting coronavirus Covid 19 screen by PCR nasal swab Monitor fever pattern Monitor white cell count and tachycardia Resume all medications IV fluids We'll continue to follow.
--- NOTE | 2020-04-20 15:26 | P.CNNES ---
History of Present Illness Consult date: 04/20/20 Requesting physician: Britney Sorenson Reason for Consult: ataxia History of Present Illness: This is a 64-year-old right-handed woman with medical history of diabetes mellitus, peripheral neuropathy, charcot disease s/p surgery of the right foot (06/2019), hypertension, hyperlipidemia and osteomyelitis of left lower extre mity who presented emergency department on 04/19/2020 for off sensation with position. Patient stated that the last 6-7 month that with addition she gets a weird sensation in her head. She said that she could not describe it. She denies of any dizziness. She said it alleviated when she is resting. She denies off any hearing loss or any ringing in the ears. She denies of any weakness or numbness associated with this. Denies any of visual disturbance or slurring of the speech. She denies of any diplopia so she with this. Sometimes she'll get lightheaded on and off with these episodes. She said about 8 weeks ago she had an episode where she was going to the bathroom she was on her feet and that when she was in the bathroom she passed out. She does not recall how long she passed for. She denies of any bowel incontinence or any tongue bite associate with this. She denies of any history of seizures at. She said that the upon coming to the hospital they told her that she had the fever and was found that she had osteomyelitis of her left lower extremity. She said that she had been a few other passing out episode and cannot tolerate further but notable lumbar jerk in of any extremities, tongue bite or bowel incontinence. Patient denies that she feels ataxic she did she denies of any and that she leans over to her towards one side or another when she walks. She just feels this off sensation well when she walks. In the past as she was notified by providers according to the patient that her off-balance is due to her nonambulatory status for a prolonged period of time. Note the patient was recently hospitalized in February 2020 which she underwent amputation of the left third toe due to gangrene and underlying also myelitis by Dr. Chirinos. She is on I at IV antibiotic for 6 weeks and she received her last dose yesterday via PICC line. Workup in the hospital consisted of: Initial vitals: Blood pressure of 139/79, heart rate of 120, respiratory of 16, temperature of 100.9 Fahrenheit oral and pulse ox of [address] of the head that was reported as cerebral atrophy. No acute intracranial abnormality. No change compared to old exam. I personally reviewed the CT of the head there is no acute ischemia or subacute ischemia, hemorrhage or any significant encephalomalacia seen on the CT of the head that. EKG is reported as sinus tachycardia. Ventricular rate of 120. Possible left atrial enlargement. Total infarct, age undetermined. Abnormal EKG. CT cervical spine was reported as no acute abnormality of the cervical spine. No fracture. Patient MCV is 106.4 hemoglobin is 12.2. CRP is elevated at 74.7. Creatinine is 1.54 the repeat is 1.81. She also had CT abdomen and pelvis and that is reported as bony pelvis is intact. She had lumbar spine CT on 03/04/2020 and it was reported as osteopenia. No fracture. Mild posterior L4 to L5 lumbar disc herniation without significant impingement on the spinal canal. Nonobstructive multiple renal calculi. Patient had CT angiography of the head and neck on 02/27/2020 for altered mental status code stroke and it was reported as negative for the brain as well as neck. Review of Systems Review of system: The 12 point system was reviewed and apparent positive and negative per HPI. Past Medical History Past Medical History: Blood Disorder, Diabetes Mellitus, GERD/Reflux, Hyperlipidemia, Hypertension, Liver Disease, Osteoarthritis (OA), Renal Disease Additional Past Medical History / Comment(s): crohns, hx. hep c, past hx. sepsis & ards 2007, has ileostomy, hx. kidney stones, hx. of infection,has spacer in, hx. anemia related to intermittent bleeding from stoma, has past hx., uti , low platelets septicemia. 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 Date of last positivie culture/infection: 04/25/16 MDRO Source:: Blood & Right Hip Past Surgical History: Appendectomy, Bowel Resection, Cholecystectomy, Hernia Repair, Hysterectomy, Tubal Ligation Additional Past Surgical History / Comment(s): ileostomy 2009 WITH 3-4 RE- SUTURING EPISODES RELATED TO BLEEDING, ileoscopy w/argon gas coagulation of stoma, 10-22-16 revison rt toal hip arthroplasty; 3rd toe amputation on left foot 02/2020 Past Anesthesia/Blood Transfusion Reactions: No Reported Reaction Past Psychological History: Anxiety Additional Psychological History / Comment(s): pt normally lives with her spouse and 1 pet dog in a single level home that has 3 steps in which to enter. but went to [facility] after dc/d from [facility] 06-04-17 Smoking Status: Former smoker Past Alcohol Use History: None Reported Additional Past Alcohol Use History / Comment(s): started 1974, quit smoking 2007, 1ppd Past Drug Use History: None Reported - Past Family History Mother Family Medical History: CVA/TIA, Diabetes Mellitus Additional Family Medical History / Comment(s): Mother at age 88 from CVA. Sister(s) Additional Family Medical History / Comment(s): Patient has 3 sisters with no major medical problems. Patient does not have any brothers. Patient has 2 sons with no major medical problems. Father Family Medical History: Cancer Additional Family Medical History / Comment(s): . Medications and Allergies Home Medications Medication Instructions Recorded Confirmed Type Mirtazapine [Remeron] 15 mg PO HS 06/11/17 04/19/20 History Sertraline HCl [Zoloft] 100 mg PO HS 07/26/17 04/19/20 History Ferrous Sulfate [Iron (65 MG 325 mg PO DAILY 06/19/19 04/19/20 History Elemental)] Magnesium Oxide [Mag-Ox] 250 mg PO DAILY 06/19/19 04/19/20 History Cholecalciferol (Vitamin D3) 2,000 unit PO DAILY #30 capsule 06/29/19 04/19/20 Rx [Vitamin D3] predniSONE [Deltasone] 20 mg PO DAILY #30 tab 06/30/19 04/19/20 Rx ALPRAZolam [Xanax] 1 mg PO BID 01/26/20 04/19/20 History Rosuvastatin [Crestor] 10 mg PO DAILY 01/26/20 04/19/20 History allopurinoL [Zyloprim] 100 mg PO DAILY 01/26/20 04/19/20 History sitaGLIPtin PHOSPHATE [Januvia] 50 mg PO DAILY 01/26/20 04/19/20 History amLODIPine [Norvasc] 2.5 mg PO DAILY #30 tab 03/07/20 04/19/20 Rx Calcium Carbonate [Calcium] 600 mg PO DAILY 04/19/20 04/19/20 History Cephalexin [Keflex] 500 mg PO TID 04/19/20 04/19/20 History Cyanocobalamin (Vitamin B-12) 500 mcg PO DAILY 04/19/20 04/19/20 History [Vitamin B-12] Furosemide [Lasix] 40 mg PO DAILY 04/19/20 04/19/20 History HYDROcodone/APAP 7.5-325MG [[place] 1 tab PO BID 04/19/20 04/19/20 History 7.5-325] Lifitegrast [Xiidra] 1 drop BOTH EYES BID 04/19/20 04/19/20 History Pantoprazole [Protonix] 40 mg PO BID 04/19/20 04/19/20 History Potassium Chloride ER [K-Dur 10] 10 meq PO DAILY 04/19/20 04/19/20 History Allergies Allergy/AdvReac Type Severity Reaction Status Date / Time adhesive tape Allergy Severe Rash/Hives/Skin Verified 04/19/20 20:41 Peeling levofloxacin [From Levaquin] Allergy Severe Swelling/ra Verified 04/19/20 20:41 sh Quinolones Allergy Severe Anaphylaxis Verified 04/19/20 20:41 /Swelling enoxaparin [From Lovenox] Allergy GI bleed Verified 04/19/20 20:41 NSAIDS (Non-Steroidal AdvReac Severe GI Verified 04/19/20 20:41 Anti-Inflamma Bleeding/Liver Damage warfarin [From Coumadin] AdvReac Severe Abdominal Verified 04/19/20 20:41 Pain Physical Examination - Vital Signs Vital Signs: Vital Signs Temp Pulse Pulse Resp BP BP Pulse Ox 04/20/20 08:00 99.1 F 104 H 18 145/74 98 04/20/20 04:16 99 F 101 H 18 122/74 94 L 04/20/20 00:00 105 H 19 04/19/20 22:27 99.3 F 105 H 19 98/63 94 L 04/19/20 22:12 107 H 18 121/65 98 04/19/20 20:15 109 H 18 113/66 97 04/19/20 18:39 100.7 F H 118 H 19 134/73 96 04/19/20 16:18 100.9 F H 120 H 16 139/79 95 Intake and Output 04/19/20 04/20/20 04/20/20 22:59 06:59 14:59 Intake Total 120 120 Balance 120 120 Intake: Intake, IV Titration 120 Amount Sodium Chloride 0.9% 1, 120 000 ml @ 20 mls/hr IV . Q24H [facility] Rx#:[id number] Oral 120 Other: Voiding Method Toilet Toilet # Voids 1 1 # Bowel Movements 1 Weight 73.482 kg 78.5 kg GENERAL: The patient is lying in bed and is not in acute distress. CHEST: The heart rate is regular rate rhythm. No murmurs to auscultation. No carotid bruit bilaterally. LUNG: Clear to auscultation bilaterally no wheezing noted throughout. Not labored breathing. ABDOMEN/GI: Bowel sounds present in all 4 quadrants. No tenderness to palpation throughout. NEUROLOGICAL: Higher mental function: The patient is awake, alert, oriented to self, place and time. Patient is following commands. No aphasia and no neglect. Cranial nerves: The pupils are round, equal and reactive to light and accommodation. Visual castellano are full to confrontation throughout. Extraocular movement is intact no nystagmus is noted. Facial sensation is normal to touch throughout. The facial strength is normal throughout. Hearing is normal bilaterally to hand rub. Tongue is midline and moved [id number] without any difficulty. No dysarthria is noted. Shoulder shrug is normal bilaterally. Motor: Gait was assessed but felt light-head and had to walk using a walker but with initial steps no ataxia or leaning toward one side or other. The strength is limited on left distal lower extremity since is wrapped in gauge from surgery. Otherwise 5 over 5 throughout. Normal tone and bulk. Cerebellum: Normal finger to nose bilaterally. Sensation: Sensation is normal to touch throughout. Reflexes (right/left): 2+ throughout upper extremities and 1+ throughout lower extremities. Could not assess left ankle since wrapped in gauge. Plantars is downgoing over the right. Left not assessed. Results Liver function test: AST of 45 and ALT of 7. Initial serum glucose is 121 the POC glucose is 151. Laxity hygienists is 846. Analysis is appears clear nitrate was negative, urine leukocyte esterase is trace urine white blood cells 14. Ration study is PT is 11.0, INR 1.1 PTT of 23.1. D-dimer is 2.61. B12 on 03/01/2020 is 1214. Methylmalonic acid was 0.40. Folate is 15 and the blood support is 1286 TSH in 12/22/2019 is 1.20. - Laboratory Findings CBC and BMP: 04/20/20 07:06 04/20/20 07:06 Abnormal Lab Findings: Abnormal Labs 04/19/20 04/19/20 04/19/20 17:28 17:28 17:28 RBC 3.61 L MCV 106.4 H Plt Count 63 L Macrocytosis D-Dimer Sodium 135 L BUN 37 H Creatinine 1.54 H Glucose 121 H POC Glucose (mg/dL) Ferritin AST 45 H Lactate Dehydrogenase C-Reactive Protein Procalcitonin Urine Protein 2+ H Urine Blood Moderate H Ur Leukocyte Esterase Trace H Urine RBC 6 H Urine WBC 14 H Amorphous Sediment Rare H Hyaline Casts 17 H Urine Mucus Rare H 04/19/20 04/19/20 04/19/20 17:28 17:28 21:35 RBC MCV Plt Count Macrocytosis D-Dimer 2.61 H Sodium BUN Creatinine Glucose POC Glucose (mg/dL) Ferritin 1237.7 H AST Lactate Dehydrogenase 846 H C-Reactive Protein 54.7 H Procalcitonin 0.41 H Urine Protein Urine Blood Ur Leukocyte Esterase Urine RBC Urine WBC Amorphous Sediment Hyaline Casts Urine Mucus 04/20/20 04/20/20 04/20/20 06:14 07:06 07:06 RBC 3.57 L MCV 108.1 H Plt Count 58 L Macrocytosis Marked A D-Dimer Sodium BUN 39 H Creatinine 1.81 H Glucose 125 H POC Glucose (mg/dL) 151 H Ferritin AST Lactate Dehydrogenase C-Reactive Protein Procalcitonin Urine Protein Urine Blood Ur Leukocyte Esterase Urine RBC Urine WBC Amorphous Sediment Hyaline Casts Urine Mucus 04/20/20 11:40 RBC MCV Plt Count Macrocytosis D-Dimer Sodium BUN Creatinine Glucose POC Glucose (mg/dL) 130 H Ferritin AST Lactate Dehydrogenase C-Reactive Protein Procalcitonin Urine Protein Urine Blood Ur Leukocyte Esterase Urine RBC Urine WBC Amorphous Sediment Hyaline Casts Urine Mucus Assessment and Plan Assessment: This is a 64-year-old woman with a medical problems that presented to the emergency department on 04/19/2024 sensation of off balance. She said that this been going on for several months. Patient sensation of feeling off with position and alleviating with rest for the last 6 to 7 months with sometimes with the feeling lightheaded could be likely due to labyrinthitis vs autonomic dysfunction especially with history of diabetes and peripheral neuropathy. Syncope: They don't seem seizure in etiology Diabetic peripheral neuropathy Low-grade fever Acute on chronic kidney insufficiency History of sepsis secondary due to left third toe gangrene with osteomyelitis status post amputation on 02/28/2020. Diabetes type 2 Charcot disease s/p surgery of the right foot (06/2019) Hepatitis C in remission. History of Crohn's disease status post ileostomy (2007) Hypertension History of iron deficiency History of hyperlipidemia Plan: I'll order orthostatic vitals. Get MRI of the brain without gadolinium I'll order a routine EEG. I'll place the patient on the meclizine 12.5 mg twice a day Patient had extensive cardiac workup previously and she had a XIAO and was all negative on her previous admission. Recommend a loop recorder or Holter monitor. Plan was discussed with the patient. Thank you for the consultation. John Russo M.D. Neuro-hospitalist Time with Patient: Greater than 30
[2020-04-20 17:01] LABS: Glucose,Whole Blood 166 mg/dL (75-99)
[2020-04-20 20:39] LABS: Glucose,Whole Blood 178 mg/dL (75-99)
[2020-04-21] MEDS: MECLIZINE 12.5 MG TAB PO SCH ×3 (00:05→22:39)
[2020-04-21] MEDS: SODIUM CHLORIDE 0.9% 1,000 ML IV SCH ×2 (00:05→05:54)
[2020-04-21] MEDS: MIRTAZAPINE 15 MG TAB PO SCH ×2 (00:05→23:26)
[2020-04-21] MEDS: SERTRALINE 100 MG TAB PO SCH ×2 (00:05→22:40)
[2020-04-21] MEDS: ACETAMINOPHEN TAB 325 MG TAB PO PRN ×2 (00:12→16:19)
[2020-04-21 06:17] LABS: Glucose,Whole Blood 172 mg/dL (75-99)
[2020-04-21] MEDS: INSULIN ASPART (NovoLOG) 100 UNIT/ML VIAL SQ SCH ×4 (06:40→22:39)
[2020-04-21] MEDS: PANTOPRAZOLE 40 MG TABLET PO SCH ×2 (08:26→22:40)
[2020-04-21] MEDS: CHOLECALCIFEROL 1,000 UNIT TAB PO SCH (08:26)
[2020-04-21] MEDS: CALCIUM CARBONATE 500 MG CHEWABLE PO SCH (08:26)
[2020-04-21] MEDS: FERROUS SULFATE 325 MG TAB PO SCH (08:26)
[2020-04-21] MEDS: ATORVASTATIN 20 MG TAB PO SCH (08:26)
[2020-04-21] MEDS: allopurinoL 100 MG TAB PO SCH (08:26)
[2020-04-21] MEDS: amLODIPine 2.5 MG TAB PO SCH (08:26)
[2020-04-21] MEDS: HYDROmorphone 1 MG/ML 1 ML SYRINGE IVP PRN ×3 (08:26→23:30)
[2020-04-21] MEDS: ALPRAZolam 1 MG TAB PO SCH ×2 (08:26→22:39)
[2020-04-21] MEDS: MAGNESIUM OXIDE 400 MG TAB PO SCH (08:26)
[2020-04-21] MEDS: CYANOCOBALAMIN 500 MCG TAB PO SCH (08:26)
--- NOTE | 2020-04-21 09:46 | MR ---
EXAMINATION TYPE: MR brain wo con DATE OF EXAM: 04/21/2020 COMPARISON: CT brain 2 days ago HISTORY: Dizziness, R/O stroke. Weakness and ataxia. TECHNIQUE: Multiplanar, multisequence imaging of the brain and brainstem is performed without IV cont rast. FINDINGS: Diffusion weighted images demonstrate no evidence of a recent infarct or other diffusion abnormality. There is no worrisome extra-axial fluid collection. Diffuse ventricular and sulcal prominence. Focal and confluent areas of T2 hyperintensity seen throughout the white matter bilaterally greatest at the periventricular levels. Subtle focus left cerebellar hemisphere on FLAIR imaging does not persist on axial or coronal T2 weighted images or diffusion-weighted images suggesting artifact. Midline structures demonstrate normal morphology. The craniocervical junction appears within normal limits. Normal vascular flow voids are present. The visualized sinuses are clear and the globes are i ntact. IMPRESSION: No MRI evidence for a recent infarct. Mild diffuse cerebral atrophy and moderate chronic small vessel ischemic changes noted on MRI.
[2020-04-21] MEDS: NON FORMULARY DRUG (Lifitegrast [Xiidra] 1 EACH Droperette) BOTH EYES SCH ×2 (11:09→22:42)
[2020-04-21 11:59] LABS: Glucose,Whole Blood 182 mg/dL (75-99)
[2020-04-21 12:05] LABS: Calcium 8.9 mg/dL (8.4-10.2); Potassium 4.6 mmol/L (3.5-5.1)
--- NOTE | 2020-04-21 12:41 | EEG ---
ELECTROENCEPHALOGRAM REPORT DATE OF SERVICE: 04/21/2020 CLINICAL HISTORY: This is a 64-year-old woman that presented to the emergency department on 04/20/2020 with complaint of feeling off and dizziness. She stated that she had history of multiple episodes of passing out. This video EEG was obtained to evaluate for seizure and epileptiform activity. RELEVANT MEDICATION: Not on centrally active medication. EEG TYPE: A routine 21 channel EEG was performed with video using the 10-20 electrode placement system. DESCRIPTION: Wakefulness is only obtained. During wakefulness, there is a posterior dominant rhythm of low to moderate voltage, that is reactive and of 8-9 hertz, activity over the bilateral hemisphere. There is no drowsiness or stage 2 sleep seen during the study. INTERICTAL AND ICTAL: None. ACTIVATION PROCEDURE: Photic stimulation did evoke a posterior driving response at 8 hertz over bilateral hemisphere. Hyperventilation was not performed because the patient clinical history. CLINICAL INTERPRETATION: This is a normal routine EEG. There are no focal slowing, epileptiform activity or seizure during the study. Clinical correlation is recommended. MMRAUL / CARLEEN: [id number] / MTDD
--- NOTE | 2020-04-21 13:00 | P.PN ---
Subjective Progress Note Date: 04/21/20 Principal diagnosis: Generalized weakness, difficulty with mobility 64-year-old female patient, presented to the hospital with fever, tachycardia, generalized weakness and difficulty with mobility. The patient has multiple medical by was and comorbidities most significant in the recent of which is an osteomyelitis of the toe and the patient underwent an amputation of the left third toe due to a gangrene with secondary osteomyelitis of the amputation was done by Dr. Chirinos and subsequently the patient was discharged on IV antibiotics and the patient completed a 6 week course of Solu followed by oral Keflex. The patient was noted to be slightly tachycardic in the emergency department. She was receiving a temperature 100.9. Otherwise echo was a 5.5 with a hemoglobin of 12.2 and she has a chronic thrombocytopenia of 63. She has chronic kidney disease in the creatinine is at baseline at 1.5. Her d-dimer was at 2.6. Ferritin was elevated at 1437 with a protest on level of 0.41, LFTs were normal, LDH was 846 and the C-reactive protein was 54.7. UA was positive for 40 WBCs, 6 RBCs and computed tomography scan of the chest showed no evidence of any acute pneumonia. There is some limited patchy peripheral pulmonary fibrotic changes atelectasis in the lung bases. In addition there was an anterior wedging of the T8 and T7 vertebral body with a 75% compression and evidence of thoracic kyphotic deformity. The CAT scan of the abdomen showed some atelectatic changes in lung bases. Ileostomy was present and there was a peristomal hernia with a bowel loop containing ileum. There was no definitive OBSTRUCTION. THERE WAS EVIDENCE OF NONOBSTRUCTIVE BILATERAL RENAL CALCULI. THE PATIENT IS CURRENTLY ON [facility] [employer]TIBIOTICS. COLITIS COVID 19 TESTING WAS SENT AND THE RESULTS ARE PENDING FOR NOW. Noted the patient had a PICC line was pulled out once the patient was started on oral antibiotics. She is still slightly tachycardic. She is pulse oxing 98% on 3 L of oxygen by nasal cannula. Most recent temperature is 99.1. On 04/21/2020 patient seen in follow-up on selective care unit. She is awake and alert, oriented 3, she is afebrile today, she was febrile last night with T-max of 100.1F. Hemodynamically stable. COVID 19 not detected. Urine and blood cultures have shown no growth. No nausea vomiting diarrhea, no shortness of breath, no cough or congestion. Today's labs have been reviewed showing worsening renal function with BUN of 42 and creatinine of 2.47, nephrology is following. She received gentle IV hydration at 4.9 normal saline at rate of 50 ML per hour. Patient's CRP was elevated at 54.7, and pro-calcitonin came back positive is 0.41. Left foot is covered with a dressing with small amount of serous drainage seen through the dressing. Objective - Vital Signs Vital signs: Vital Signs Temp 98.4 F 04/21/20 08:00 Pulse 96 04/21/20 08:00 Resp 18 04/21/20 08:00 BP 132/68 04/21/20 08:00 Pulse Ox 97 04/21/20 08:00 Intake & Output 04/20/20 04/21/20 04/21/20 18:59 06:59 18:59 Intake Total 360 250 125 Output Total 100 Balance 360 250 25 Weight 80 kg Intake: Intake, IV Titration 250 Amount Sodium Chloride 0.9% 1, 250 000 ml @ 50 mls/hr IV . Q20H [facility] Rx#:[id number] Oral 360 125 Output: Urine 100 Other: Voiding Method Toilet Toilet Toilet # Voids 1 # Bowel Movements 0 - Exam GENERAL EXAM: Alert, very pleasant, 64-year-old white female, 30 of oxygen pulse ox of 97% comfortable in no apparent distress. HEAD: Normocephalic/atraumatic. EYES: Normal reaction of pupils, equal size. Conjunctiva pink, sclera white. NOSE: Clear with pink turbinates. THROAT: No erythema or exudates. NECK: No masses, no JVD, no thyroid enlargement, no adenopathy. CHEST: No chest wall deformity. Symmetrical expansion. LUNGS: Equal air entry with no crackles, wheeze, rhonchi or dullness. CVS: Regular rate and rhythm, normal S1 and S2, no gallops, no murmurs, no rubs ABDOMEN: Soft, nontender. No hepatosplenomegaly, normal bowel sounds, no guarding or rigidity. EXTREMITIES: No clubbing, no edema, no cyanosis, 2+ pulses and upper and lower extremities. MUSCULOSKELETAL: Muscle strength and tone normal. SPINE: No scoliosis or deformity SKIN: Left foot wound post surgery covered with dressing, with moderate amount of serous drainage through the dressing CENTRAL NERVOUS SYSTEM: Alert and oriented -3. No focal deficits, tone is normal in all 4 extremities. PSYCHIATRIC: Alert and oriented -3. Appropriate affect. Intact judgment and insight. - Labs CBC & Chem 7: 04/20/20 07:06 04/21/20 11:24 Labs: Abnormal Lab Results - Last 24 Hours (Table) 04/20/20 04/20/20 04/21/20 Range/Units 16:49 20:36 06:15 Sodium (137-145) mmol/L BUN (7-17) mg/dL Creatinine (0.52-1.04) mg/dL Glucose (74-99) mg/dL POC Glucose (mg/dL) 166 H 178 H 172 H (75-99) mg/dL 04/21/20 04/21/20 Range/Units 11:24 11:50 Sodium 135 L (137-145) mmol/L BUN 42 H (7-17) mg/dL Creatinine 2.47 H (0.52-1.04) mg/dL Glucose 135 H (74-99) mg/dL POC Glucose (mg/dL) 182 H (75-99) mg/dL Microbiology - Last 24 Hours (Table) 04/19/20 17:28 Blood Culture - Preliminary Blood No Growth after 24 hours 04/19/20 17:28 Urine Culture - Final Urine,Voided Assessment and Plan Plan: Assessment: 1 acute febrile illness currently under investigation. The patient is slightly tachycardic and the patient also has some slight elevation of the pleural calcitonin level. Nevertheless, the rest of the inflammatory markers are also elevated. The CAT scan of the chest is not suggestive coronavirus Covid 19, and Covid 19 was negative. Patient is hemodynamically stable. No other obvious source of infection at this point in time. The patient was given a dose of Rocephin pending further cultures 2 history of Crohn disease 3 previous history of ileostomy with a parastomal hernia which is currently stable. 4 hepatitis C 5 chronic kidney disease with a baseline creatinine 6 diabetes mellitus 7 hypertension 8 chronic thrombocytopenia 9 chronic and the patient's anemia 10 history of gangrenous toe and osteomyelitis with presentation of the left third toe completing IV antibiotics with Kefzol be a PICC line that was removed and following that the patient was treated with a course of Keflex 11 nephrolithiasis, nonobstructive 12 previous history of sepsis/ARDS in 2008 13 history of gout 14 hyperlipidemia 15 atelectatic changes in lung bases bilaterally, please refer to the CAT scan of the abdomen and CAT scan of the chest 16 acute kidney injury Plan: We'll continue with Rocephin, blood and urine cultures are negative thus far, we will obtain left foot x-ray to rule out possibility of osteomyelitis. No evidence of Covid 19 infection, fever pattern has improved, hemodynamically remained stable, continue with IV hydration per nephrology recommendations, we'll continue to follow I performed a history & physical examination of the patient and discussed their management with my nurse practitioner, Angie Patel. I reviewed the nurse practitioner's note and agree with the documented findings and plan of care. Lung sounds are positive for diminished breath sounds. The findings and the impression was discussed with the patient. I attest to the documentation by the nurse practitioner. Time with Patient: Less than 30
--- NOTE | 2020-04-21 13:33 | P.PN ---
Subjective Progress Note Date: 04/21/20 This is a 64-year-old female with past medical history of Crohn's disease status post ileostomy, type 2 diabetes, hepatitis C liver disease, osteoarthritis history of kidney stones, chronic iron deficiency anemia, with an issue with stomal bleed on and off. She was recently hospitalized in February which time she underwent an amputation of the left third toe due to gangrene and underlying osteomyelitis by Dr. Briones. She was maintained on IV antibiotics with Kefzol for a 6 week course and finished yesterday. She was then transitioned to oral Keflex 500 mg 3 times daily. PICC line was also removed yesterday. Patient feels that she has dizziness and is off balance and feels she will fall over when she stands that started yesterday. She is currently ambulatory on the right lower extremity. She was also having low-grade fever, increased pain with deep inspiration. Pain is to the lower rib areas bilaterally. Patient presented to [facility] emergency [facility] for evaluation. Temperature was 100.9, heart rate 120, blood pressure 139/79, pulse ox 95% on room air. EKG was a sinus tachycardia without acute ST changes. WBC 5.5, hemoglobin 12.2 2. Platelet count 63. Sodium 135, potassium 4.7, chloride 102, CO2 28, BUN 37 creatinine 1.54. Blood sugar 121. D-dimer 2.61. Ferritin 1237.7. LDH 846. CRP 54.7. Pro-calcitonin 0.41. AST 45. Urinalysis clear with blood moderate, leukoesterase trace and PVCs 14. Blood culture urine culture and COVID-19 are pending. CTA of the chest was negative for pulmonary embolism. Patchy peripheral pulmonary fibrotic changes and atelectasis. COPD. No suspicious mass. CAT scan of the abdomen and pelvis with contrast revealed linear infiltrate and atelectasis at the lung bases. Ileostomy with. He stomal hernia containing a loop of ileum. No bowel obstruction. Nonobstructive bilateral renal calculi. Consult in place for neurology and pulmonary medicine. Patient admitted to the cardiac stepdown unit. 04/21: Patient denies having any shortness of breath. In general she is feeling better. She has been hungry and eating well. Her only concern is when she gets up to walk she feels shaky. Temperature max was 100.4 yesterday at 1600, heart rate 96, blood pressure 132/68, pulse ox 97% on 3 L nasal cannula. She has been seen by neurology and Antivert started 12.5 mg twice daily. MRI of the brain revealed no evidence of recent infarct. Mild diffuse cerebral atrophy and moderate chronic small vessel ischemic changes. EEG was normal for age. Repeat blood work reveals sodium 135, BUN [address] Tang history of her on IV fluids of 0.9 normal saline at 50 mL per hour. Urine culture has been finalized with no growth at 18 hours and blood culture is in process. COVID-19 n egative. She is continued on Rocephin. Left foot x-ray has been ordered by pulmonary medicine. Objective - Vital Signs Vital signs: Vital Signs Temp 98.4 F 04/21/20 08:00 Pulse 96 04/21/20 08:00 Resp 18 04/21/20 08:00 BP 132/68 04/21/20 08:00 Pulse Ox 97 04/21/20 08:00 Intake & Output 04/20/20 04/21/20 04/21/20 18:59 06:59 18:59 Intake Total 360 250 125 Output Total 100 Balance 360 250 25 Weight 80 kg Intake: Intake, IV Titration 250 Amount Sodium Chloride 0.9% 1, 250 000 ml @ 50 mls/hr IV . Q20H [facility] Rx#:[id number] Oral 360 125 Output: Urine 100 Other: Voiding Method Toilet Toilet Toilet # Voids 1 # Bowel Movements 0 - Exam Review of Systems Constitutional: Reports fatigue, Reports malaise, Denies chills, Denies fever, Denies weight loss Eyes: denies blurred vision, denies pain Ears, nose, mouth and throat: Reports vertigo, Denies headache, Denies nasal congestion, Denies nasal discharge, Denies sore throat Cardiovascular: Denies chest pain, Reports dyspnea on exertion, Reports lightheadedness, Denies edema, Denies leg edema, Denies shortness of breath Respiratory: Denies cough, Denies excessive sputum, Denies hemoptysis, Denies home oxygen, Denies respiratory infections Gastrointestinal: Denies abdominal pain, Denies bloating, Denies diarrhea, Denies loss of appetite, Denies nausea, Denies vomiting Genitourinary: Denies dysuria, Denies hematuria, Denies urgency, Denies urinary frequency Menstruation: Reports postmenopausal Musculoskeletal: Denies frequent falls, Denies gait dysfunction, Denies muscle weakness, Denies myalgias Integumentary: Denies pruritus, Denies rash, Denies wounds Neurological: Denies change in mentation, Denies change in speech, Denies numbness, Denies seizures, Denies weakness Psychiatric: Denies anxiety, Denies depression Endocrine: Denies fatigue, Denies weight change Physical Examination Gen: This is a 64-year-old female. Patient is resting in bed and appears to be comfortable and in no acute distress. HEENT: Head is atraumatic, normocephalic. Pupils equal, round. Sclerae is anicteric. NECK: Supple. No JVD. No lymphadenopathy. No thyromegaly. LUNGS: Crackles to the bilateral bases. No wheezing. No intercostal retractions. HEART: Regular rate and rhythm. First heart sound is depressed, second heart sound is normal, 2/6 systolic ejection murmur at the left sternal border. ABDOMEN: Soft. Bowel sounds are present. No masses. No tenderness. Ostomy is pink, no active bleeding, brown stool in ostomy bag EXTREMITIES: No pedal edema. No calf tenderness. Dorsalis pedis +1 bilaterally. Left foot wound has dressing in place. NEUROLOGICAL: Patient is awake, alert and oriented x3. Cranial nerves 2 through 12 are grossly intact - Labs CBC & Chem 7: 04/20/20 07:06 04/21/20 11:24 Labs: Abnormal Lab Results - Last 24 Hours (Table) 04/20/20 04/20/20 04/21/20 Range/Units 16:49 20:36 06:15 Sodium (137-145) mmol/L BUN (7-17) mg/dL Creatinine (0.52-1.04) mg/dL Glucose (74-99) mg/dL POC Glucose (mg/dL) 166 H 178 H 172 H (75-99) mg/dL 04/21/20 04/21/20 Range/Units 11:24 11:50 Sodium 135 L (137-145) mmol/L BUN 42 H (7-17) mg/dL Creatinine 2.47 H (0.52-1.04) mg/dL Glucose 135 H (74-99) mg/dL POC Glucose (mg/dL) 182 H (75-99) mg/dL Microbiology - Last 24 Hours (Table) 04/19/20 17:28 Blood Culture - Preliminary Blood No Growth after 24 hours 04/19/20 17:28 Urine Culture - Final Urine,Voided Assessment and Plan Plan: 1. Low-grade fever with lightheadedness, dizziness, low chest discomfort. Ruled out Covid 19, doubt urinary tract infection as cause of symptoms. Consult with Dr. Norris. Continue Rocephin. Foot x-ray ordered by pulmonary medicine. 2. Ataxia. Consult with neurology 3. History of sepsis, bacteremia secondary to left third toe gangrene with underlying osteomyelitis status post amputation 02/27. Patient completed course of IV antibiotics, yesterday transitioned to oral Keflex. 4. Elevated d-dimer. Pulmonary embolism ruled out by CTA. 5. Chronic anemia of chronic illness, currently stable. Continue iron 325 mg daily. 6. Recent history of stomal bleed. No active bleeding at this time. 7. Chronic kidney disease stage III. Avoid nephrotoxic agents. 8. Diabetes mellitus type 2. Continue NovoLog scale before meals and at bedtime. Patient is on Januvia 50 mg daily at home. 9. Hepatitis C in remission, stable. 10. Crohn's disease status post ileostomy in 2007 on chronic prednisone 20 mg daily. 11. Generalized anxiety disorder and recurrent depression. Continue Xanax 1 mg twice daily and Zoloft 100 mg at bedtime, Remeron 50 mg at bedtime. 12. Hypertension hypertensive cardiovascular disease. Continue amlodipine 2.5 mg daily. 13. Vitamin deficiencies. Continue vitamin D 12, vitamin D, magnesium supplements. 14. Chronic gout. Continue allopurinol 100 mg daily. 15. Hyperlipidemia. Continue Lipitor 20 mg at bedtime. 16. Chronic thrombocytopenia. 17. GI prophylaxis. Pepcid. 18. DVT prophylaxis. Knee-high CRISTHIAN hose. Discharge plan: Home, most likely on Saturday Impression and plan of care have been directed as dictated by the signing physician. Glenis Hernandez nurse practitioner acting as scribe for signing physician.
--- NOTE | 2020-04-21 15:22 | P.PN ---
Subjective Progress Note Date: 04/21/20 She was seen at bedside and she continues to have these weird feeling sensation that when she is about to stand up she has the sensation. She denies of any nausea vomiting any ringing in the ears and hearing loss any weakness associated with this. She denies any visual disturbance. Most of the time she doesn't have dizziness but sometimes she says she'll get dizziness. Objective - Vital Signs Vital signs: Vital Signs Temp 98.8 F 04/21/20 12:00 Pulse 108 H 04/21/20 12:00 Resp 18 04/21/20 12:00 BP 135/76 04/21/20 12:00 Pulse Ox 97 04/21/20 12:00 Intake & Output 04/20/20 04/21/20 04/21/20 18:59 06:59 18:59 Intake Total 360 250 149 Output Total 100 Balance 360 250 49 Weight 80 kg Intake: Intake, IV Titration 250 Amount Sodium Chloride 0.9% 1, 250 000 ml @ 50 mls/hr IV . Q20H [facility] Rx#:[id number] Oral 360 149 Output: Urine 100 Other: Voiding Method Toilet Toilet Toilet # Voids 1 # Bowel Movements 0 - Exam GENERAL: The patient is lying in bed and is not in acute distress. CHEST: The heart rate is regular rate rhythm. No murmurs to auscultation. No carotid bruit bilaterally. LUNG: Clear to auscultation bilaterally no wheezing noted throughout. Not labored breathing. ABDOMEN/GI: Bowel sounds present in all 4 quadrants. No tenderness to palpation throughout. NEUROLOGICAL: Higher mental function: The patient is awake, alert, oriented to self, place and time. Patient is following commands. No aphasia and no neglect. Cranial nerves: The pupils are round, equal and reactive to light and accommodation. Visual castellano are full to confrontation throughout. Extraocular movement is intact no nystagmus is noted. Facial sensation is normal to touch throughout. The facial strength is normal throughout. Hearing is normal bilaterally to hand rub. Tongue is midline and moved [id number] without any difficulty. No dysarthria is noted. Shoulder shrug is normal bilaterally. Motor: Gait was assessed but felt light-head and had to walk using a walker but with initial steps no ataxia or leaning toward one side or other. The strength is limited on left distal lower extremity since is wrapped in gauge from surgery. Otherwise 5 over 5 throughout. Normal tone and bulk. Cerebellum: Normal finger to nose bilaterally. Sensation: Sensation is normal to touch throughout. Reflexes (right/left): 2+ throughout upper extremities and 1+ throughout lower extremities. Could not assess left ankle since wrapped in gauge. Plantars is downgoing over the right. Left not assessed. - Labs CBC & Chem 7: 04/20/20 07:06 04/21/20 11:24 Labs: Abnormal Lab Results - Last 24 Hours (Table) 04/20/20 04/20/20 04/21/20 Range/Units 16:49 20:36 06:15 Sodium (137-145) mmol/L BUN (7-17) mg/dL Creatinine (0.52-1.04) mg/dL Glucose (74-99) mg/dL POC Glucose (mg/dL) 166 H 178 H 172 H (75-99) mg/dL 04/21/20 04/21/20 Range/Units 11:24 11:50 Sodium 135 L (137-145) mmol/L BUN 42 H (7-17) mg/dL Creatinine 2.47 H (0.52-1.04) mg/dL Glucose 135 H (74-99) mg/dL POC Glucose (mg/dL) 182 H (75-99) mg/dL Microbiology - Last 24 Hours (Table) 04/19/20 17:28 Blood Culture - Preliminary Blood No Growth after 24 hours 04/19/20 17:28 Urine Culture - Final Urine,Voided Assessment and Plan Assessment: This is a 64-year-old woman with a medical problems that presented to the emergency department on 04/19/2024 sensation of off balance. She said that this been going on for several months. Patient sensation of feeling off with position and alleviating with rest for the last 6 to 7 months with sometimes with the feeling lightheaded could be likely due to labyrinthitis vs autonomic dysfunction especially with history of diabet es and peripheral neuropathy. Syncope: Does don't seem seizure in etiology Diabetic peripheral neuropathy Low-grade fever Acute on chronic kidney insufficiency History of sepsis secondary due to left third toe gangrene with osteomyelitis status post amputation on 02/28/2020. Diabetes type 2 Charcot disease s/p surgery of the right foot (06/2019) Hepatitis C in remission. History of Crohn's disease status post ileostomy (2007) Hypertension History of iron deficiency History of hyperlipidemia Plan: Order orthostatic vitals yesterday but not done but will ask to be done today. MRI of the brain without gadolinium: No MRI evidence of recent infarct. Mild diffuse cerebral atrophy and moderate chronic small vessel ischemic changes. I personally reviewed the MRI and I agree with the radiologist findings. Routine EEG: Normal routine EEG. There are no focal slowing, applicable discharges or seizure during the study. Continue meclizine 12.5 mg twice a day Patient had extensive cardiac workup previously and she had a XIAO and was all negative on her previous admission. Recommend a loop recorder or Holter monitor. She'll was notified the to also see an ENT as an outpatient for these presentations. She said that she was notified in the past that he see an ENT b ut she has not. Plan was discussed with the patient. John Russo M.D. Neuro-hospitalist Time with Patient: Less than 30
--- NOTE | 2020-04-21 16:34 | XR ---
EXAMINATION TYPE: XR foot complete LT DATE OF EXAM: 04/21/2020 CLINICAL HISTORY: Concern for osteomyelitis. TECHNIQUE: Frontal, lateral, and oblique images of the left foot are obtained. COMPARISON: CT foot 03/02/2020 FINDINGS: There is significantly decreased osseous mineralization. Redemonstrated destructive change of the third digit phalanx. No evidence of displaced osseous fracture or dislocation. Vascular calci fications. IMPRESSION: Destructive change of the third digit phalanx is redemonstrated from 03/02/2020 CT comparison, suggesti ve of osteomyelitis.
[2020-04-21 17:17] LABS: Glucose,Whole Blood 159 mg/dL (75-99)
[2020-04-21 20:38] LABS: Glucose,Whole Blood 157 mg/dL (75-99)
[2020-04-21 22:20] LABS: Glucose,Whole Blood 146 mg/dL (75-99)
[2020-04-22] MEDS: SODIUM CHLORIDE 0.9% 1,000 ML IV SCH ×2 (05:59→23:40)
[2020-04-22] MEDS: HYDROmorphone 1 MG/ML 1 ML SYRINGE IVP PRN ×2 (06:09→10:57)
[2020-04-22 06:10] LABS: Calcium 8.1 mg/dL (8.4-10.2); Potassium 4.6 mmol/L (3.5-5.1)
[2020-04-22 08:09] LABS: Glucose,Whole Blood 127 mg/dL (75-99)
[2020-04-22] MEDS: INSULIN ASPART (NovoLOG) 100 UNIT/ML VIAL SQ SCH ×4 (08:54→20:44)
[2020-04-22] MEDS: CYANOCOBALAMIN 500 MCG TAB PO SCH (10:59)
[2020-04-22] MEDS: CHOLECALCIFEROL 1,000 UNIT TAB PO SCH (11:00)
[2020-04-22] MEDS: ALPRAZolam 1 MG TAB PO SCH (11:00)
[2020-04-22] MEDS: FERROUS SULFATE 325 MG TAB PO SCH (11:00)
[2020-04-22] MEDS: PANTOPRAZOLE 40 MG TABLET PO SCH (11:00)
[2020-04-22] MEDS: ATORVASTATIN 20 MG TAB PO SCH (11:00)
[2020-04-22] MEDS: allopurinoL 100 MG TAB PO SCH (11:00)
[2020-04-22] MEDS: CALCIUM CARBONATE 500 MG CHEWABLE PO SCH (11:01)
[2020-04-22] MEDS: MECLIZINE 12.5 MG TAB PO SCH ×2 (11:01→20:43)
[2020-04-22] MEDS: amLODIPine 2.5 MG TAB PO SCH (11:04)
[2020-04-22] MEDS: NON FORMULARY DRUG (Lifitegrast [Xiidra] 1 EACH Droperette) BOTH EYES SCH ×2 (11:04→20:37)
[2020-04-22] MEDS: MAGNESIUM OXIDE 400 MG TAB PO SCH (11:27)
--- NOTE | 2020-04-22 11:42 | PN ---
PROGRESS NOTE Patient is seen for followup for chronic kidney disease and acute kidney injury. Patient was recently diuresed as outpatient. She was admitted with a creatinine of around 1.5, which increased to 2.47 yesterday. Patient was started on IV fluids at about 50 mL an hour. She has been voiding well. There was no evidence of urine retention. Blood pressure has been low with systolic occasionally about 81-99 mmHg. Patient has had a fever. She had a temp of 101.4 yesterday. Patient recently had osteomyelitis and gangrene on the left foot, status post amputation of 3rd toe, status post completion of IV antibiotics as outpatient prior to admission. The COVID-19 test was negative on admission. Patient is currently comfortable, she is lethargic and sleepy, otherwise oriented x3. Blood pressure this morning 114/72, heart rate 98 per minute she has a low-grade temp and it was at 101.4 yesterday. Heart rate 98 per minute. Examination of the heart S1, S2. Examination of the lungs, decreased breath sounds at bases abdomen is soft, nontender. Examination of lower extremities shows chronic skin changes. Trace edema noted bilaterally. [employer] exam grossly intact. LABS: Show sodium 134, potassium 4.6, chloride 104, CO2 is 25, BUN 44, creatinine 2.16. ASSESSMENT: 1. Acute kidney injury, mostly ATN associated with hypotension, hypoperfusion. Systolic blood pressure was about 81 mmHg yesterday. Patient is nonoliguric. She was also recently diuresed prior to admission. Creatinine is slightly better today at 2.1 from 2.4 yesterday. Patient is maintained on gentle IV hydration with saline at 50 mL an hour which we can continue for now. She is not on any significant antihypertensive medication. Norvasc is at 2.5 mg, which I will discontinue. 2. Fever, mostly associated with left foot infection with x-ray still showing destruction of the suggestive of osteomyelitis. Patient is maintained on antibiotics which we will continue for now. 3. Chronic kidney disease, stage 3, baseline creatinine 1.4-1.5 secondary to diabetic kidney disease and nephrosclerosis. 4. Crohn's disease status post ileostomy, maintained on low-dose prednisone. PLAN: Continue with saline at 50 mL an hour. KATARINA Norvasc. Repeat labs in a.m. Avoid nephrotoxic medications. Avoid nephrotoxic meds. MMODL / IJN: [id number] / MTDD
[2020-04-22] MEDS ORDERED: HYDROmorphone 0.5 MG/0.5 ML SYRINGE IVP PRN (12:05)
[2020-04-22 12:18] LABS: Glucose,Whole Blood 156 mg/dL (75-99)
[2020-04-22] MEDS: ACETAMINOPHEN TAB 325 MG TAB PO PRN ×2 (12:26→20:43)
--- NOTE | 2020-04-22 12:32 | XR ---
EXAMINATION TYPE: XR chest 1V portable DATE OF EXAM: 04/22/2020 CLINICAL HISTORY: Difficulty breathing progress study. TECHNIQUE: Single AP portable upright view of the chest is obtained. COMPARISON: Chest x-ray from 3 days earlier and older studies. CT chest from 3 days ago. FINDINGS: Background chronic parenchymal change in low lung volumes with left greater than right bib asilar opacities on current study. Left basilar findings more prominent from prior. Lateral right rib fracture deformities redemonstrated. Cardiac silhouette size is stable and mildly enlarged. Osseous structures remain demineralized. IMPRESSION: Chronic parenchymal changes and mild cardiomegaly with left greater than right bibasilar acute infiltrate and/or atelectasis. Left basilar findings more prominent from most recent prior stud ies.
--- NOTE | 2020-04-22 12:43 | P.PN ---
Subjective Progress Note Date: 04/22/20 Principal diagnosis: Generalized weakness, difficulty with mobility 64-year-old female patient, presented to the hospital with fever, tachycardia, generalized weakness and difficulty with mobility. The patient has multiple medical by was and comorbidities most significant in the recent of which is an osteomyelitis of the toe and the patient underwent an amputation of the left third toe due to a gangrene with secondary osteomyelitis of the amputation was done by Dr. Chirinos and subsequently the patient was discharged on IV antibiotics and the patient completed a 6 week course of Solu followed by oral Keflex. The patient was noted to be slightly tachycardic in the emergency department. She was receiving a temperature 100.9. Otherwise echo was a 5.5 with a hemoglobin of 12.2 and she has a chronic thrombocytopenia of 63. She has chronic kidney disease in the creatinine is at baseline at 1.5. Her d-dimer was at 2.6. Ferritin was elevated at 1437 with a protest on level of 0.41, LFTs were normal, LDH was 846 and the C-reactive protein was 54.7. UA was positive for 40 WBCs, 6 RBCs and computed tomography scan of the chest showed no evidence of any acute pneumonia. There is some limited patchy peripheral pulmonary fibrotic changes atelectasis in the lung bases. In addition there was an anterior wedging of the T8 and T7 vertebral body with a 75% compression and evidence of thoracic kyphotic deformity. The CAT scan of the abdomen showed some atelectatic changes in lung bases. Ileostomy was present and there was a peristomal hernia with a bowel loop containing ileum. There was no definitive OBSTRUCTION. THERE WAS EVIDENCE OF NONOBSTRUCTIVE BILATERAL RENAL CALCULI. THE PATIENT IS CURRENTLY ON [facility]-[employer] ANTIBIOTICS. COLITIS COVID 19 TESTING WAS SENT AND THE RESULTS ARE PENDING FOR NOW. Noted the patient had a PICC line was pulled out once the patient was started on oral antibiotics. She is still slightly tachycardic. She is pulse oxing 98% on 3 L of oxygen by nasal cannula. Most recent temperature is 99.1. On 04/21/2020 patient seen in follow-up on selective care unit. She is awake and alert, oriented 3, she is afebrile today, she was febrile last night with T-max of 100.1F. Hemodynamically stable. COVID 19 not detected. Urine and blood cultures have shown no growth. No nausea vomiting diarrhea, no shortness of breath, no cough or congestion. Today's labs have been reviewed showing worsening renal function with BUN of 42 and creatinine of 2.47, nephrology is following. She received gentle IV hydration at 4.9 normal saline at rate of 50 ML per hour. Patient's CRP was elevated at 54.7, and pro-calcitonin came back positive is 0.41. Left foot is covered with a dressing with small amount of serous drainage seen through the dressing. On 04/22/2020 patient seen in follow-up from medical oncology floor, more le thargic today, low-grade fever today, tachycardic, temp was 100.6F, patient remains on subcu oxygen on 3 L per the pulse ox of 93%. Blood and urine cultures have been negative, to date have not been able to identify the source of sepsis, x-ray of the left foot completed yesterday showing destructive change of the third digit phalanx redemonstrated from 03/02/2020 suggestive of osteomyelitis, left foot wound inspected, and appears to be clean dry and intact at the site of the surgical incision, no redness, no swelling to suggest ongoing signs of infection. Chest x-ray was obtained showing chronic changes mild cardiomegaly with left within the right basilar infiltrates and/or atelectasis. Blood pressure is 106/69, lactic acid has been ordered blood cultures have been ordered. No chest pain, no cough, no hemoptysis, no urinary symptoms, no complaints of left foot pain Objective - Vital Signs Vital signs: Vital Signs Temp 100.6 F H 04/22/20 11:36 Pulse 116 H 04/22/20 11:41 Resp 20 04/22/20 11:36 BP 106/69 04/22/20 11:36 Pulse Ox 93 L 04/22/20 11:41 Intake & Output 04/21/20 04/22/20 04/22/20 18:59 06:59 18:59 Intake Total 389 800 Output Total 300 Balance 89 800 Intake: Intake, IV Titration 600 Amount Sodium Chloride 0.9% 1, 600 000 ml @ 50 mls/hr IV . Q20H [facility] Rx#:[id number] Oral 389 200 Output: Urine 300 Other: Voiding Method Toilet Toilet # Voids 1 # Bowel Movements 1 - Exam GENERAL EXAM: Lethargic, arousable,, 64-year-old white female, 3 of oxygen puls e ox of 93% comfortable in no apparent distress. HEAD: Normocephalic/atraumatic. EYES: Normal reaction of pupils, equal size. Conjunctiva pink, sclera white. NOSE: Clear with pink turbinates. THROAT: No erythema or exudates. NECK: No masses, no JVD, no thyroid enlargement, no adenopathy. CHEST: No chest wall deformity. Symmetrical expansion. LUNGS: Equal air entry with no crackles, wheeze, rhonchi or dullness. CVS: Regular rate and rhythm, normal S1 and S2, no gallops, no murmurs, no rubs ABDOMEN: Soft, nontender. No hepatosplenomegaly, normal bowel sounds, no guarding or rigidity. EXTREMITIES: No clubbing, no edema, no cyanosis, 2+ pulses and upper and lower extremities. MUSCULOSKELETAL: Muscle strength and tone normal. SPINE: No scoliosis or deformity SKIN: Left foot wound post surgery incision over the third phalanx on the left foot clean dry and intact covered with dressing. CENTRAL NERVOUS SYSTEM: Alert and oriented -3. No focal deficits, tone is normal in all 4 extremities. PSYCHIATRIC: Alert and oriented -3. Appropriate affect. Intact judgment and insight. - Labs CBC & Chem 7: 04/20/20 07:06 04/22/20 05:33 Labs: Abnormal Lab Results - Last 24 Hours (Table) 04/21/20 04/21/20 04/21/20 Range/Units 17:08 20:36 22:18 Sodium (137-145) mmol/L BUN (7-17) mg/dL Creatinine (0.52-1.04) mg/dL Glucose (74-99) mg/dL POC Glucose (mg/dL) 159 H 157 H 146 H (75-99) mg/dL Calcium (8.4-10.2) mg/dL 04/22/20 04/22/20 04/22/20 Range/Units 05:33 07:55 12:15 Sodium 134 L (137-145) mmol/L BUN 44 H (7-17) mg/dL Creatinine 2.16 H (0.52-1.04) mg/dL Glucose 132 H (74-99) mg/dL POC Glucose (mg/dL) 127 H 156 H (75-99) mg/dL Calcium 8.1 L (8.4-10.2) mg/dL Microbiology - Last 24 Hours (Table) 04/19/20 17:28 Blood Culture - Preliminary Blood No Growth after 48 hours Assessment and Plan Plan: Assessment: 1 acute febrile illness currently under investigation. The patient is slightly tachycardic and the patient also has some slight elevation of the procalcitonin level. Nevertheless, the rest of the inflammatory markers are also elevated. The CAT scan of the chest is not suggestive coronavirus Covid 19, and Covid 19 was negative. Patient is hemodynamically stable. No other obvious source of infection at this point in time. The patient was given a dose of Rocephin pending further cultures 2 history of Crohn disease 3 previous history of ileostomy with a parastomal hernia which is currently stable. 4 hepatitis C 5 chronic kidney disease with a baseline creatinine 6 diabetes mellitus 7 hypertension 8 chronic thrombocytopenia 9 chronic and the patient's anemia 10 history of gangrenous toe and osteomyelitis with presentation of the left third toe completing IV antibiotics with Kefzol be a PICC line that was removed and following that the patient was treated with a course of Keflex 11 nephrolithiasis, nonobstructive 12 previous history of sepsis/ARDS in 2007 13 history of gout 14 hyperlipidemia 15 atelectatic changes in lung bases bilaterally, please refer to the CAT scan of the abdomen and CAT scan of the chest 16 acute kidney injury Plan: X-ray of the foot, chest x-ray have been reviewed, continue current a better coverage, obtain lactic acid, blood cultures, stat CBC and BMP. No cough or congestion, no clear source of infection. We'll repeat pro-calcitonin, we'll continue to closely monitor the patient I performed a history & physical examination of the patient and discussed their management with my nurse practitioner, Angie Patel. I reviewed the nurse practitioner's note and agree with the documented findings and plan of care. Lung sounds are positive for diminished breath sounds. The findings and the impression was discussed with the patient. I attest to the documentation by the nurse practitioner. Time with Patient: Less than 30
[2020-04-22 12:51] LABS: Basophils % (A) 1 %; Eosinophils # (A) 0.1 k/uL (0-0.7); Eosinophils % (A) 2 %; HCT 35.9 % (34.0-46.0); HGB 11.5 gm/dL (11.4-16.0); Hypochromasia Slight; Lymphocytes # (A) 1.1 k/uL (1.0-4.8); Lymphocytes % (A) 20 %; MCHC 32.1 g/dL (31.0-37.0); MCV 105.9 fL (80.0-100.0); Macrocytosis Moderate; Mean Platelet Volume 7.8; Monocytes # (A) 0.5 k/uL (0-1.0); Monocytes % (A) 8 %; Neutrophils # (A) 3.8 k/uL (1.3-7.7); Neutrophils % (A) 67 %; RBC 3.39 m/uL (3.80-5.40); RDW 15.9 % (11.5-15.5); WBC 5.6 k/uL (3.8-10.6)
[2020-04-22 12:52] LABS: Platelet Count 82 k/uL (150-450)
[2020-04-22] MEDS: MEROPENEM 1 GM in SODIUM CHLORIDE 0.9% 100 ML IVPB SCH (14:53)
[2020-04-22 14:57] LABS: ABG Base Excess 0.2 mmol/L; ABG HCO3 26 mmol/L (21-25); ABG Oxygen Saturation 97.9 % (94-97); ABG PCO2 52 mmHg (35-45); ABG PH 7.32 (7.35-7.45); ABG PO2 90 mmHg (83-108); ABG TCO2 28 mmol/L (19-24); Allen Test Performed? Yes
--- NOTE | 2020-04-22 15:50 | P.PN ---
Subjective Progress Note Date: 04/22/20 This is a 64-year-old female with past medical history of Crohn's disease status post ileostomy, type 2 diabetes, hepatitis C liver disease, osteoarthritis history of kidney stones, chronic iron deficiency anemia, with an issue with stomal bleed on and off. She was recently hospitalized in February which time she underwent an amputation of the left third toe due to gangrene and underlying osteomyelitis by Dr. Broines. She was maintained on IV antibiotics with Kefzol for a 6 week course and finished yesterday. She was then transitioned to oral Keflex 500 mg 3 times daily. PICC line was also removed yesterday. Patient feels that she has dizziness and is off balance and feels she will fall over when she stands that started yesterday. She is currently ambulatory on the right lower extremity. She was also having low-grade fever, increased pain with deep inspiration. Pain is to the lower rib areas bilaterally. Patient presented to [facility] emergency center for evaluation. Temperature was 100.9, heart rate 120, blood pressure 139/79, pulse ox 95% on room air. EKG was a sinus tachycardia without acute ST changes. WBC 5.5, hemoglobin 12.2 2. Platelet count 63. Sodium 135, potassium 4.7, chloride 102, CO2 28, BUN 37 creatinine 1.54. Blood sugar 121. D-dimer 2.61. Ferritin 1237.7. LDH 846. CRP 54.7. Pro-calcitonin 0.41. AST 45. Urinalysis clear with blood moderate, leukoesterase trace and PVCs 14. Blood culture urine culture and COVID-19 are pending. CTA of the chest was negative for pulmonary embolism. Patchy peripheral pulmonary fibrotic changes and atelectasis. COPD. No suspicious mass. CAT scan of the abdomen and pelvis with contrast revealed linear infiltrate and atelectasis at the lung bases. Ileostomy with. He stomal hernia containing a loop of ileum. No bowel obstruction. Nonobstructive bilateral renal calculi. Consult in place for neurology and pulmonary medicine. Patient admitted to the cardiac stepdown unit. 04/21: Patient denies having any shortness of breath. In general she is feeling better. She has been hungry and eating well. Her only concern is when she gets up to walk she feels shaky. Temperature max was 100.4 yesterday at 1600, heart rate 96, blood pressure 132/68, pulse ox 97% on 3 L nasal cannula. She has been seen by neurology and Antivert started 12.5 mg twice daily. MRI of the brain revealed no evidence of recent infarct. Mild diffuse cerebral atrophy and moderate chronic small vessel ischemic changes. EEG was normal for age. Repeat blood work reveals sodium 135, BUN [address] Tang history of her on IV fluids of 0.9 normal saline at 50 mL per hour. Urine culture has been finalized with no growth at 18 hours and blood culture is in process. COVID-19 n egative. She is continued on Rocephin. Left foot x-ray has been ordered by pulmonary medicine. 04/22: Patient's blood pressure is on the low side, tachycardic, febrile and she has had some lethargy this morning. Dilaudid was discontinued. Patient is currently on ceftriaxone changed to meropenem by pulmonary and blood cultures were obtained yesterday afternoon and repeat today. Temperature max was 101.4 yesterday afternoon. Repeat blood work reveals WBC of 5.6, hemoglobin 11.5, platelet count 82. BUN 44 and creatinine 2.16. Blood sugars running between 100 2756. C. difficile toxin was negative. Lactic acid 1.1. Chest x-ray reveals chronic parenchymal changes and mild cardiomegaly with left greater than right bibasilar acute infiltrate and/or atelectasis. Left basilar findings more prominent. Left foot x-ray reveals destructive change of the third digit phalanx redemonstrated from 03/02. Suggestive of osteomyelitis. Patient's was contacted via phone and updated by Dr. Kothari. PT/OT and recommended subacute rehab. Objective - Vital Signs Vital signs: Vital Signs Temp 99.4 F 04/22/20 05:00 Pulse 98 04/22/20 05:00 Resp 20 04/22/20 05:00 BP 114/72 04/22/20 05:00 Pulse Ox 99 04/22/20 05:00 Intake & Output 04/21/20 04/22/20 04/22/20 18:59 06:59 18:59 Intake Total 389 800 Output Total 300 Balance 89 800 Intake: Intake, IV Titration 600 Amount Sodium Chloride 0.9% 1, 600 000 ml @ 50 mls/hr IV . Q20H [facility] Rx#:[id number] Oral 389 200 Output: Urine 300 Other: Voiding Method Toilet Toilet # Voids 1 # Bowel Movements 1 - Exam Review of Systems Constitutional: Reports fatigue, Reports malaise, Denies chills, Denies fever, Denies weight loss Eyes: denies blurred vision, denies pain Ears, nose, mouth and throat: Reports vertigo, Denies headache, Denies nasal congestion, Denies nasal discharge, Denies sore throat Cardiovascular: Denies chest pain, Reports dyspnea on exertion, Reports lightheadedness, Denies edema, Denies leg edema, Denies shortness of breath Respiratory: Denies cough, Denies excessive sputum, Denies hemoptysis, Denies home oxygen, Denies respiratory infections Gastrointestinal: Denies abdominal pain, Denies bloating, Denies diarrhea, Denies loss of appetite, Denies nausea, Denies vomiting Genitourinary: Denies dysuria, Denies hematuria, Denies urgency, Denies urinary frequency Menstruation: Reports postmenopausal Musculoskeletal: Denies frequent falls, Denies gait dysfunction, Denies muscle weakness, Denies myalgias Integumentary: Denies pruritus, Denies rash, Denies wounds Neurological: Reported mentation, Denies change in speech, Denies numbness, Denies seizures, Denies weakness Psychiatric: Denies anxiety, Denies depression Endocrine: Denies fatigue, Denies weight change Physical Examination Gen: This is a 64-year-old female. Patient is resting in bed and appears to be comfortable and in no acute distress. HEENT: Head is atraumatic, normocephalic. Pupils equal, round. Sclerae is anicteric. NECK: Supple. No JVD. No lymphadenopathy. No thyromegaly. LUNGS: Crackles to the bilateral bases. No wheezing. No intercostal retrac tions. HEART: Regular rate and rhythm. First heart sound is depressed, second heart sound is normal, 2/6 systolic ejection murmur at the left sternal border. ABDOMEN: Soft. Bowel sounds are present. No masses. No tenderness. Ostomy is pink, no active bleeding, brown stool in ostomy bag EXTREMITIES: No pedal edema. No calf tenderness. Dorsalis pedis +1 bilaterally. Left foot wound has dressing in place. NEUROLOGICAL: Patient is oriented to person and place. Cranial nerves 2 through 12 are grossly intact - Labs CBC & Chem 7: 04/22/20 12:27 04/22/20 05:33 Labs: Abnormal Lab Results - Last 24 Hours (Table) 04/21/20 04/21/20 04/21/20 Range/Units 11:24 11:50 17:08 Sodium 135 L (137-145) mmol/L BUN 42 H (7-17) mg/dL Creatinine 2.47 H (0.52-1.04) mg/dL Glucose 135 H (74-99) mg/dL POC Glucose (mg/dL) 182 H 159 H (75-99) mg/dL Calcium (8.4-10.2) mg/dL 04/21/20 04/21/20 04/22/20 Range/Units 20:36 22:18 05:33 Sodium 134 L (137-145) mmol/L BUN 44 H (7-17) mg/dL Creatinine 2.16 H (0.52-1.04) mg/dL Glucose 132 H (74-99) mg/dL POC Glucose (mg/dL) 157 H 146 H (75-99) mg/dL Calcium 8.1 L (8.4-10.2) mg/dL 04/22/20 Range/Units 07:55 Sodium (137-145) mmol/L BUN (7-17) mg/dL Creatinine (0.52-1.04) mg/dL Glucose (74-99) mg/dL POC Glucose (mg/dL) 127 H (75-99) mg/dL Calcium (8.4-10.2) mg/dL Microbiology - Last 24 Hours (Table) 04/19/20 17:28 Blood Culture - Preliminary Blood No Growth after 48 hours Assessment and Plan Plan: 1. Febrile illness with lightheadedness, dizziness, low chest discomfort. Ruled out Covid 19, doubt urinary tract infection as cause of symptoms, doubt osteomyelitis as reason for fevers. Possible bilateral pneumonia on most recent chest x-ray. Rocephin has been changed to meropenem by pulmonary medicine. Consult with Dr. Norris appreciated. Blood cultures were repeated yesterday and today. Repeat pro calcitonin. 2. Metabolic encephalopathy secondary to sepsis of unclear etiology. Continue as in #1. Patient may require transfer to the intensive care unit. Continue to monitor very closely. 3. History of sepsis, bacteremia secondary to left third toe gangrene with underlying osteomyelitis status post amputation 02/27. Patient completed course of IV antibiotics, transitioned to oral Keflex as an outpatient. 4. Elevated d-dimer. Pulmonary embolism ruled out by CTA. 5. Chronic anemia of chronic illness, currently stable. Continue iron 325 mg daily. 6. Recent history of stomal bleed. No active bleeding at this time. 7. Chronic kidney disease stage III. Avoid nephrotoxic agents. 8. Diabetes mellitus type 2. Continue NovoLog scale before meals and at bedtime. Patient is on Januvia 50 mg daily at home. 9. Hepatitis C in remission, stable. 10. Crohn's disease status post ileostomy in 2007 on chronic prednisone 20 mg daily. 11. Generalized anxiety disorder and recurrent depression. Continue Xanax 1 mg twice daily and Zoloft 100 mg at bedtime, Remeron 50 mg at bedtime. 12. Hypertension hypertensive cardiovascular disease. Continue amlodipine 2.5 mg daily. 13. Vitamin deficiencies. Continue vitamin D 12, vitamin D, magnesium supplements. 14. Chronic gout. Continue allopurinol 100 mg daily. 15. Hyperlipidemia. Continue Lipitor 20 mg at bedtime. 16. Chronic thrombocytopenia. 17. GI prophylaxis. Pepcid. 18. DVT prophylaxis. Knee-high CRISTHIAN hose. Discharge plan: To be determined. Patient wants to return home but may require subacute rehab. Impression and plan of care have been directed as dictated by the signing physician. Glenis Hernandez nurse practitioner acting as scribe for signing che espino
--- NOTE | 2020-04-22 16:03 | P.PN ---
Subjective Progress Note Date: 04/22/20 She was seen at bedside and is more drowsy today compared to yesterday. She stated the on just feeling tired. Her temperature is elevated at 100.6 Fahrenheit oral, she stated and heart rate in 100's. Pulse ox is recorded as 93 on 3 L of nasal cannula. Her cranial function is the worsening. On presentation was 1.54 then a got up to 2.47 without 2.16. Orthostatic was done yesterday and it's charted as: Supine his blood pressure of 81/47 with a heart rate of 120 sitting is 118/68 with a heart rate of 124 and standing is 109/66 with a heart rate of 130. I'm actually not sure how accurate this is? Objective - Vital Signs Vital signs: Vital Signs Temp 100.6 F H 04/22/20 11:36 Pulse 116 H 04/22/20 11:41 Resp 20 04/22/20 11:36 BP 106/69 04/22/20 11:36 Pulse Ox 93 L 04/22/20 11:41 Intake & Output 04/21/20 04/22/20 04/22/20 18:59 06:59 18:59 Intake Total 389 800 Output Total 300 Balance 89 800 Intake: Intake, IV Titration 600 Amount Sodium Chloride 0.9% 1, 600 000 ml @ 50 mls/hr IV . Q20H [facility] Rx#:[id number] Oral 389 200 Output: Urine 300 Other: Voiding Method Toilet Toilet # Voids 1 1 # Bowel Movements 1 - Exam GENERAL: The patient is lying in bed and is not in acute distress. CHEST: The heart rate is regular rate rhythm. No murmurs to auscultation. No carotid bruit bilaterally. LUNG: Clear to auscultation bilaterally no wheezing noted throughout. Not labored breathing. NEUROLOGICAL: Higher mental function: The patient is drowsy but awakeable. Is oriented to self, place and time. Patient is following commands. No aphasia and no neglect. Cranial nerves: The pupils are round, equal and reactive to light and accommodation. Visual castellano are full to confrontation throughout. Extraocular movement is intact no nystagmus is noted. Facial sensation is normal to touch throughout. The facial strength is normal throughout. Hearing is normal bilaterally to hand rub. Tongue is midline and moved [id number] without any difficulty. No dysarthria is noted. Shoulder shrug is normal bilaterally. Motor: Gait is deferred. The strength is limited on left distal lower extremity since is wrapped in gauge from surgery. Is moving all extremities above gravity without drift. No focalityy is appreciated. Normal tone and bulk. Cerebellum: Normal finger to nose bilaterally. Sensation: Sensation is normal to touch throughout. Reflexes (right/left): 2+ throughout upper extremities and 1+ throughout lower extremities. Could not assess left ankle since wrapped in gauge. Plantars is downgoing over the right. Left not assessed. - Labs CBC & Chem 7: 04/22/20 12:27 04/22/20 05:33 Labs: Abnormal Lab Results - Last 24 Hours (Table) 04/21/20 04/21/20 04/21/20 Range/Units 17:08 20:36 22:18 RBC (3.80-5.40) m/uL MCV (80.0-100.0) fL RDW (11.5-15.5) % Plt Count (150-450) k/uL ABG pH (7.35-7.45) ABG pCO2 (35-45) mmHg ABG HCO3 (21-25) mmol/L ABG Total CO2 (19-24) mmol/L ABG O2 Saturation (94-97) % Sodium (137-145) mmol/L BUN (7-17) mg/dL Creatinine (0.52-1.04) mg/dL Glucose (74-99) mg/dL POC Glucose (mg/dL) 159 H 157 H 146 H (75-99) mg/dL Calcium (8.4-10.2) mg/dL 04/22/20 04/22/20 04/22/20 Range/Units 05:33 07:55 12:15 RBC (3.80-5.40) m/uL MCV (80.0-100.0) fL RDW (11.5-15.5) % Plt Count (150-450) k/uL ABG pH (7.35-7.45) ABG pCO2 (35-45) mmHg ABG HCO3 (21-25) mmol/L ABG Total CO2 (19-24) mmol/L ABG O2 Saturation (94-97) % Sodium 134 L (137-145) mmol/L BUN 44 H (7-17) mg/dL Creatinine 2.16 H (0.52-1.04) mg/dL Glucose 132 H (74-99) mg/dL POC Glucose (mg/dL) 127 H 156 H (75-99) mg/dL Calcium 8.1 L (8.4-10.2) mg/dL 04/22/20 04/22/20 Range/Units 12:27 14:55 RBC 3.39 L (3.80-5.40) m/uL MCV 105.9 H (80.0-100.0) fL RDW 15.9 H (11.5-15.5) % Plt Count 82 L (150-450) k/uL ABG pH 7.32 L (7.35-7.45) ABG pCO2 52 H (35-45) mmHg ABG HCO3 26 H (21-25) mmol/L ABG Total CO2 28 H (19-24) mmol/L ABG O2 Saturation 97.9 H (94-97) % Sodium (137-145) mmol/L BUN (7-17) mg/dL Creatinine (0.52-1.04) mg/dL Glucose (74-99) mg/dL POC Glucose (mg/dL) (75-99) mg/dL Calcium (8.4-10.2) mg/dL Microbiology - Last 24 Hours (Table) 04/19/20 17:28 Blood Culture - Preliminary Blood No Growth after 48 hours Assessment and Plan Assessment: This is a 64-year-old woman with a medical problems that presented to the emergency department on 04/19/2024 sensation of off balance. She said that this been going on for several months. Toxic metabolic encephalopathy Patient sensation of feeling off with position and alleviating with rest for the last 6 to 7 months with sometimes with the feeling lightheaded could be likely due to labyrinthitis vs autonomic dysfunction especially with history of diabetes and peripheral neuropathy. Syncope: Does don't seem seizure in etiology Diabetic peripheral neuropathy Low-grade fever, tachycardia and the pulse ox of 93% on 3 L. Acute on chronic kidney insufficiency History of sepsis secondary due to left third toe gangrene with osteomyelitis status post amputation on 02/28/2020. Diabetes type 2 Charcot disease s/p surgery of the right foot (06/2019) Hepatitis C in remission. History of Crohn's disease status post ileostomy (2007) Hypertension History of iron deficiency History of hyperlipidemia Plan: With a static vitals was then yesterday by believe was done and accurately. I notified the nurse to repeat it today. MRI of the brain without gadolinium: No MRI evidence of recent infarct. Mild diffuse cerebral atrophy and moderate chronic small vessel ischemic changes. I personally reviewed the MRI and I agree with the radiologist findings. Routine EEG (04/21/20): Normal routine EEG. There are no focal slowing, epileptiform discharges or seizure during the study. Continue meclizine 12.5 mg twice a day Patient had extensive cardiac workup previously and she had a XIAO and was all negative on her previous admission. Recommend a loop recorder or Holter monitor. The blood and urine cultures have been negative to date. X-ray of the left foot completed yesterday showing distractive changes of the third digit phalanx redemonstrated from 03/02/2020 suggestive of osteomyelitis. She'll was notified the to also see an ENT as an outpatient for these presentations. She said that she was notified in the past that he see an ENT but she has not. Regarding her low grade fever, tachycardia and sometimes desaturation of her pulse ox will defer infection management to the primary team and ICU team. The patient is going to be transferred to ICU for closer monitoring. Plan was discussed with the patient. There is no neurology service over the weekend. Please perfect serve if needed. John Russo M.D. Neuro-hospitalist Time with Patient: Less than 30
[2020-04-22 16:24] LABS: Glucose,Whole Blood 140 mg/dL (75-99)
[2020-04-22 17:58] LABS: ABG Base Excess 0.5 mmol/L; ABG HCO3 27 mmol/L (21-25); ABG Oxygen Saturation 96.5 % (94-97); ABG PCO2 51 mmHg (35-45); ABG PH 7.33 (7.35-7.45); ABG PO2 78 mmHg (83-108); ABG TCO2 28 mmol/L (19-24); Allen Test Performed? Yes
[2020-04-22 20:14] LABS: Glucose,Whole Blood 200 mg/dL (75-99)
[2020-04-22] MEDS: SERTRALINE 100 MG TAB PO SCH (20:42)
[2020-04-22] MEDS: MIRTAZAPINE 15 MG TAB PO SCH (20:43)
[2020-04-22] MEDS: SODIUM CHLORIDE 0.9% 250 ML IV SCH ×2 (23:40→23:41)
[2020-04-23] MEDS: MEROPENEM 1 GM in SODIUM CHLORIDE 0.9% 100 ML IVPB SCH ×2 (03:33→17:49)
[2020-04-23 04:12] LABS: Anisocytosis Slight; Basophils % (A) 1 %; Eosinophils # (A) 0.1 k/uL (0-0.7); Eosinophils % (A) 2 %; HCT 28.3 % (34.0-46.0); Hypochromasia Slight; Lymphocytes # (A) 0.8 k/uL (1.0-4.8); Lymphocytes % (A) 23 %; MCH 34.3 pg (25.0-35.0); MCHC 32.3 g/dL (31.0-37.0); MCV 106.1 fL (80.0-100.0); Macrocytosis Moderate; Mean Platelet Volume 8.2; Monocytes # (A) 0.3 k/uL (0-1.0); Monocytes % (A) 10 %; Neutrophils # (A) 2.1 k/uL (1.3-7.7); Neutrophils % (A) 61 %; RBC 2.67 m/uL (3.80-5.40); RDW 16.1 % (11.5-15.5); WBC 3.4 k/uL (3.8-10.6)
[2020-04-23 04:22] LABS: HGB 9.2 gm/dL (11.4-16.0); Platelet Count 70 k/uL (150-450)
[2020-04-23 04:32] LABS: ALT <6 U/L (4-34); AST 29 U/L (14-36); African American GFR (CKD) 31 (>60 ml/min/1.73 sqM); Albumin 2.4 g/dL (3.5-5.0); Alkaline Phosphatase 59 U/L (38-126); Anion Gap 3 mmol/L; Blood Urea Nitrogen 44 mg/dL (7-17); Calcium 8.1 mg/dL (8.4-10.2); Carbon Dioxide 26 mmol/L (22-30); Chloride 106 mmol/L (98-107); Glucose 105 mg/dL (74-99); Magnesium 1.3 mg/dL (1.6-2.3); Non-African American GFR(CKD) 27 (>60 ml/min/1.73 sqM); Potassium 4.6 mmol/L (3.5-5.1); Sodium 135 mmol/L (137-145); Total Bilirubin 0.6 mg/dL (0.2-1.3); Total Protein 5.1 g/dL (6.3-8.2)
[2020-04-23] MEDS: MAGNESIUM SULFATE-D5W PMX 1 GM in DEXTROSE/WATER 1 100ML.BAG IVPB SCH ×3 (05:43→10:15)
--- NOTE | 2020-04-23 06:54 | XR ---
EXAMINATION TYPE: XR chest 1V portable DATE OF EXAM: 04/23/2020 CLINICAL HISTORY: Difficulty breathing progress study. TECHNIQUE: Single AP portable semiupright view of the chest is obtained. COMPARISON: Chest x-ray from one day earlier and older studies. FINDINGS: Background chronic parenchymal change and somewhat low lung volumes with patchy bibasilar opacities remains present. Lateral right rib fracture deformities redemonstrated. Cardiac silhouette size is stable and mildly enlarged. IMPRESSION: Chronic parenchymal changes and mild cardiomegaly with patchy bibasilar acute infiltrate and/or atelectasis. No significant change from one day earlier.
[2020-04-23 07:02] LABS: Glucose,Whole Blood 121 mg/dL (75-99)
[2020-04-23] MEDS: INSULIN ASPART (NovoLOG) 100 UNIT/ML VIAL SQ SCH ×4 (07:02→21:05)
[2020-04-23] MEDS: NON FORMULARY DRUG (Lifitegrast [Xiidra] 1 EACH Droperette) BOTH EYES SCH ×2 (09:00→20:14)
--- NOTE | 2020-04-23 09:54 | P.PN ---
Subjective Patient is seen in follow-up for acute kidney injury on chronic kidney disease. Renal function is little better today. She was transferred to the ICU yesterday for lethargy. She is maintained on IV fluids. Blood pressure was low in the systolic low 90s to 100s yesterday. She did receive 500 mL bolus last night. Blood pressure better. She is awake and alert. She wants to eat. No chest pain or shortness of breath. Urine output 20-30 mL an hour. Vital signs are stable. General: The patient appeared well nourished and normally developed. HEENT: Head exam is unremarkable. Neck is without jugular venous distension. LUNGS: Breath sounds decreased. HEART: Rate and Rhythm are regular. ABDOMEN: Soft, nontender. EXTREMITITES: No edema. Objective - Vital Signs Vital signs: Vital Signs Temp 98.4 F 04/23/20 08:00 Pulse 96 04/23/20 09:00 Resp 33 H 04/23/20 09:00 BP 118/64 04/23/20 09:00 Pulse Ox 96 04/23/20 09:00 Intake & Output 04/22/20 04/23/20 04/23/20 18:59 06:59 18:59 Intake Total 100 850 150 Output Total 65 1065 85 Balance 35 -215 65 Weight 80.2 kg Intake: IV 100 850 150 Sodium Chloride 0.9% 1, 550 150 000 ml @ 50 mls/hr IV . Q20H [facility] Rx#:[id number] Sodium Chloride 0.9% 250 250 ml @ 999 mls/hr IV .Q16M [facility] Rx#:[id number] cefTRIAXone 1 gm In 100 50 Sodium Chloride 0.9% 50 ml @ 100 mls/hr IVPB Q24H [facility] Rx#:[id number] Output: Urine 65 265 85 Stool 800 Other: Voiding Method Indwelling Catheter Indwelling Catheter Indwelling Catheter # Voids 1 1 - Labs CBC & Chem 7: 04/23/20 03:38 04/23/20 03:38 Labs: Abnormal Lab Results - Last 24 Hours (Table) 04/22/20 04/22/20 04/22/20 Range/Units 12:15 12:27 12:27 WBC (3.8-10.6) k/uL RBC 3.39 L (3.80-5.40) m/uL Hgb (11.4-16.0) gm/dL Hct (34.0-46.0) % MCV 105.9 H (80.0-100.0) fL RDW 15.9 H (11.5-15.5) % Plt Count 82 L (150-450) k/uL Lymphocytes # (1.0-4.8) k/uL ABG pH (7.35-7.45) ABG pCO2 (35-45) mmHg ABG pO2 (83-108) mmHg ABG HCO3 (21-25) mmol/L ABG Total CO2 (19-24) mmol/L ABG O2 Saturation (94-97) % Sodium (137-145) mmol/L BUN (7-17) mg/dL Creatinine (0.52-1.04) mg/dL Glucose (74-99) mg/dL POC Glucose (mg/dL) 156 H (75-99) mg/dL Calcium (8.4-10.2) mg/dL Magnesium (1.6-2.3) mg/dL Total Protein (6.3-8.2) g/dL Albumin (3.5-5.0) g/dL Procalcitonin 0.62 H (0.02-0.09) ng/mL 04/22/20 04/22/20 04/22/20 Range/Units 14:55 16:22 17:56 WBC (3.8-10.6) k/uL RBC (3.80-5.40) m/uL Hgb (11.4-16.0) gm/dL Hct (34.0-46.0) % MCV (80.0-100.0) fL RDW (11.5-15.5) % Plt Count (150-450) k/uL Lymphocytes # (1.0-4.8) k/uL ABG pH 7.32 L 7.33 L (7.35-7.45) ABG pCO2 52 H 51 H (35-45) mmHg ABG pO2 78 L (83-108) mmHg ABG HCO3 26 H 27 H (21-25) mmol/L ABG Total CO2 28 H 28 H (19-24) mmol/L ABG O2 Saturation 97.9 H (94-97) % Sodium (137-145) mmol/L BUN (7-17) mg/dL Creatinine (0.52-1.04) mg/dL Glucose (74-99) mg/dL POC Glucose (mg/dL) 140 H (75-99) mg/dL Calcium (8.4-10.2) mg/dL Magnesium (1.6-2.3) mg/dL Total Protein (6.3-8.2) g/dL Albumin (3.5-5.0) g/dL Procalcitonin (0.02-0.09) ng/mL 04/22/20 04/23/20 04/23/20 Range/Units 20:11 03:38 03:38 WBC 3.4 L (3.8-10.6) k/uL RBC 2.67 L (3.80-5.40) m/uL Hgb 9.2 L D (11.4-16.0) gm/dL Hct 28.3 L (34.0-46.0) % MCV 106.1 H (80.0-100.0) fL RDW 16.1 H (11.5-15.5) % Plt Count 70 L (150-450) k/uL Lymphocytes # 0.8 L (1.0-4.8) k/uL ABG pH (7.35-7.45) ABG pCO2 (35-45) mmHg ABG pO2 (83-108) mmHg ABG HCO3 (21-25) mmol/L ABG Total CO2 (19-24) mmol/L ABG O2 Saturation (94-97) % Sodium 135 L (137-145) mmol/L BUN 44 H (7-17) mg/dL Creatinine 1.95 H (0.52-1.04) mg/dL Glucose 105 H (74-99) mg/dL POC Glucose (mg/dL) 200 H (75-99) mg/dL Calcium 8.1 L (8.4-10.2) mg/dL Magnesium 1.3 L (1.6-2.3) mg/dL Total Protein 5.1 L (6.3-8.2) g/dL Albumin 2.4 L (3.5-5.0) g/dL Procalcitonin (0.02-0.09) ng/mL 04/23/20 Range/Units 07:00 WBC (3.8-10.6) k/uL RBC (3.80-5.40) m/uL Hgb (11.4-16.0) gm/dL Hct (34.0-46.0) % MCV (80.0-100.0) fL RDW (11.5-15.5) % Plt Count (150-450) k/uL Lymphocytes # (1.0-4.8) k/uL ABG pH (7.35-7.45) ABG pCO2 (35-45) mmHg ABG pO2 (83-108) mmHg ABG HCO3 (21-25) mmol/L ABG Total CO2 (19-24) mmol/L ABG O2 Saturation (94-97) % Sodium (137-145) mmol/L BUN (7-17) mg/dL Creatinine (0.52-1.04) mg/dL Glucose (74-99) mg/dL POC Glucose (mg/dL) 121 H (75-99) mg/dL Calcium (8.4-10.2) mg/dL Magnesium (1.6-2.3) mg/dL Total Protein (6.3-8.2) g/dL Albumin (3.5-5.0) g/dL Procalcitonin (0.02-0.09) ng/mL Microbiology - Last 24 Hours (Table) 04/21/20 18:23 Blood Culture - Preliminary Blood No Growth after 24 hours 04/19/20 17:28 Blood Culture - Preliminary Blood No Growth after 72 hours Assessment and Plan Plan: Assessment: 1. Acute kidney injury secondary to ATN secondary to hypotension and infection. Renal function improving. Creatinine 1.95 today. 2. Chronic kidney disease stage III with baseline creatinine near 1.5 secondary to nephrosclerosis and diabetic kidney disease. She was also noted to have elevated lambda free light chains. Serum immunofixation positive for IgG lambda. She has been seen by heme/onc in the past and will need to follow-up with them upon discharge. 3. History of Crohn's disease status post ileostomy. 4. Left foot osteomyelitis maintained on antibiotics. 5. Hypomagnesemia from poor intake. 6. Diabetes mellitus. Plan: Maintain normal saline. Magnesium being replaced. Continue to monitor renal function and urine output. Consider infectious disease consultation. Discussed with the nurse. Encouraged oral intake. Follow-up cultures.
--- NOTE | 2020-04-23 10:03 | P.PN ---
Subjective Progress Note Date: 04/23/20 This is a 64-year-old female with past medical history of Crohn's disease status post ileostomy, type 2 diabetes, hepatitis C liver disease, osteoarthritis history of kidney stones, chronic iron deficiency anemia, with an issue with stomal bleed on and off. She was recently hospitalized in February which time she underwent an amputation of the left third toe due to gangrene and underlying osteomyelitis by Dr. Briones. She was maintained on IV antibiotics with Kefzol for a 6 week course and finished yesterday. She was then transitioned to oral Keflex 500 mg 3 times daily. PICC line was also removed yesterday. Patient feels that she has dizziness and is off balance and feels she will fall over when she stands that started yesterday. She is currently ambulatory on the right lower extremity. She was also having low-grade fever, increased pain with deep inspiration. Pain is to the lower rib areas bilaterally. Patient presented to [facility] for evaluation. Temperature was 100.9, heart rate 120, blood pressure 139/79, pulse ox 95% on room air. EKG was a sinus tachycardia without acute ST changes. WBC 5.5, hemoglobin 12.2 2. Platelet count 63. Sodium 135, potassium 4.7, chloride 102, CO2 28, BUN 37 creatinine 1.54. Blood sugar 121. D-dimer 2.61. Ferritin 1237.7. LDH 846. CRP 54.7. Pro-calcitonin 0.41. AST 45. Urinalysis clear with blood moderate, leukoesterase trace and PVCs 14. Blood culture urine culture and COVID-19 are pending. CTA of the chest was negative for pulmonary embolism. Patchy peripheral pulmonary fibrotic changes and atelectasis. COPD. No suspicious mass. CAT scan of the abdomen and pelvis with contrast revealed linear infiltrate and atelectasis at the lung bases. Ileostomy with. He stomal hernia containing a loop of ileum. No bowel obstruction. Nonobstructive bilateral renal calculi. Consult in place for neurology and pulmonary medicine. Patient admitted to the cardiac stepdown unit. 04/21: Patient denies having any shortness of breath. In general she is feeling better. She has been hungry and eating well. Her only concern is when she gets up to walk she feels shaky. Temperature max was 100.4 yesterday at 1600, heart rate 96, blood pressure 132/68, pulse ox 97% on 3 L nasal cannula. She has been seen by neurology and Antivert started 12.5 mg twice daily. MRI of the brain revealed no evidence of recent infarct. Mild diffuse cerebral atrophy and moderate chronic small vessel ischemic changes. EEG was normal for age. Repeat blood work reveals sodium 135, BUN [address] Tang history of her on IV fluids of 0.9 normal saline at 50 mL per hour. Urine culture has been finalized with no growth at 18 hours and blood culture is in process. COVID-19 n egative. She is continued on Rocephin. Left foot x-ray has been ordered by pulmonary medicine. 04/22: Patient's blood pressure is on the low side, tachycardic, febrile and she has had some lethargy this morning. Dilaudid was discontinued. Patient is currently on ceftriaxone changed to meropenem by pulmonary and blood cultures were obtained yesterday afternoon and repeat today. Temperature max was 101.4 yesterday afternoon. Repeat blood work reveals WBC of 5.6, hemoglobin 11.5, platelet count 82. BUN 44 and creatinine 2.16. Blood sugars running between 100 2756. C. difficile toxin was negative. Lactic acid 1.1. Chest x-ray reveals chronic parenchymal changes and mild cardiomegaly with left greater than right bibasilar acute infiltrate and/or atelectasis. Left basilar findings more prominent. Left foot x-ray reveals destructive change of the third digit phalanx redemonstrated from 03/02. Suggestive of osteomyelitis. Patient's was contacted via phone and updated by Dr. Kothari. PT/OT and recommended subacute rehab. 04/23: Patient's appear to be a bit drowsy however she is better than yesterday, we took her off benzodiazepine, with a crit of Dilaudid, we took her off Remeron, restarted back on prednisone 20 mg orally once every day, I spoke at length with her who is expressed his concern about her mentation at this point in time, all the cultures so far has been negative, patient had an MRI of the brain that was negative she had a computed tomography scan of the chest and abdomen and pelvis that was negative as well, patient is complaining of some weakness in the right lower extremity because of pain in the right hip, we will obtain x-ray of the right hip, we will monitor the patient in the ICU for another 24 hours, she continues to be somewhat drowsy, her creatinine is improving at 1.9, I believe this is a combination of acute renal failure on top of chronic kidney disease related to contrast-induced nephropathy that has been resolving and medication side effects including benzodiazepine and Dilaudid, patient will be kept in the ICU for another 24 hours, is expressing his concern about the eschar that she had on her left heel that has been healing we will ask for wound care consult for evaluation may be to continue with the skin prep as needed and keep the heel in the heel protector flashes the hospital, try to get the patient up in a chair if possible. Objective - Vital Signs Vital signs: Vital Signs Temp 98.4 F 04/23/20 08:00 Pulse 90 04/23/20 08:00 Resp 27 H 04/23/20 08:00 BP 110/61 04/23/20 08:00 Pulse Ox 96 04/23/20 08:00 Intake & Output 04/22/20 04/23/20 04/23/20 18:59 06:59 18:59 Intake Total 100 850 100 Output Total 65 1065 55 Balance 35 -215 45 Weight 80.2 kg Intake: IV 100 850 100 Sodium Chloride 0.9% 1, 550 100 000 ml @ 50 mls/hr IV . Q20H [facility] Rx#:[id number] Sodium Chloride 0.9% 250 250 ml @ 999 mls/hr IV .Q16M [facility] Rx#:[id number] cefTRIAXone 1 gm In 100 50 Sodium Chloride 0.9% 50 ml @ 100 mls/hr IVPB Q24H [facility] Rx#:[id number] Output: Urine 65 265 55 Stool 800 Other: Voiding Method Indwelling Catheter Indwelling Catheter Indwelling Catheter # Voids 1 1 - Exam - Exam Review of Systems Constitutional: Reports fatigue, Reports malaise, Denies chills, Denies fever, Denies weight loss Eyes: denies blurred vision, denies pain Ears, nose, mouth and throat: Reports vertigo, Denies headache, Denies nasal congestion, Denies nasal discharge, Denies sore throat Cardiovascular: Denies chest pain, Reports dyspnea on exertion, Reports lightheadedness, Denies edema, Denies leg edema, Denies shortness of breath Respiratory: Denies cough, Denies excessive sputum, Denies hemoptysis, Denies home oxygen, Denies respiratory infections Gastrointestinal: Denies abdominal pain, Denies bloating, Denies diarrhea, Denies loss of appetite, Denies nausea, Denies vomiting Genitourinary: Denies dysuria, Denies hematuria, Denies urgency, Denies urinary frequency Menstruation: Reports postmenopausal Musculoskeletal: Denies frequent falls, Denies gait dysfunction, Denies muscle weakness, Denies myalgias Integumentary: Denies pruritus, Denies rash, Denies wounds Neurological: Reported mentation, Denies change in speech, Denies numbness, Denies seizures, Denies weakness Psychiatric: Denies anxiety, Denies depression Endocrine: Denies fatigue, Denies weight change Physical Examination Gen: This is a 64-year-old female. Patient is resting in bed appears a bit drowsy however better than yesterday. HEENT: Head is atraumatic, normocephalic. Pupils equal, round. Sclerae is anicteric, mucous migraines and mouth are somewhat dry. NECK: Supple. No JVD. No lymphadenopathy. No thyromegaly. LUNGS: Crackles to the bilateral bases. No wheezing. No intercostal retractions. HEART: Regular rate and rhythm. First heart sound is depressed, second heart sound is normal, 2/6 systolic ejection murmur at the left sternal border. ABDOMEN: Soft. Bowel sounds are present. No masses. No tenderness. Ostomy is pink, no active bleeding, brown stool in ostomy bag EXTREMITIES: No pedal edema. No calf tenderness. Dorsalis pedis +1 bilaterally, there is a left heel eschar that has been healing and appears much better than it was. NEUROLOGICAL: Patient is oriented to person and place. Cranial nerves 2 through 12 are grossly intact, patient appears to be a bit weaker in the right lower extremity however she stated that she has some pain in the right hip area . - Labs CBC & Chem 7: 04/23/20 03:38 04/23/20 03:38 Labs: Abnormal Lab Results - Last 24 Hours (Table) 04/22/20 04/22/20 04/22/20 Range/Units 12:15 12:27 12:27 WBC (3.8-10.6) k/uL RBC 3.39 L (3.80-5.40) m/uL Hgb (11.4-16.0) gm/dL Hct (34.0-46.0) % MCV 105.9 H (80.0-100.0) fL RDW 15.9 H (11.5-15.5) % Plt Count 82 L (150-450) k/uL Lymphocytes # (1.0-4.8) k/uL ABG pH (7.35-7.45) ABG pCO2 (35-45) mmHg ABG pO2 (83-108) mmHg ABG HCO3 (21-25) mmol/L ABG Total CO2 (19-24) mmol/L ABG O2 Saturation (94-97) % Sodium (137-145) mmol/L BUN (7-17) mg/dL Creatinine (0.52-1.04) mg/dL Glucose (74-99) mg/dL POC Glucose (mg/dL) 156 H (75-99) mg/dL Calcium (8.4-10.2) mg/dL Magnesium (1.6-2.3) mg/dL Total Protein (6.3-8.2) g/dL Albumin (3.5-5.0) g/dL Procalcitonin 0.62 H (0.02-0.09) ng/mL 04/22/20 04/22/20 04/22/20 Range/Units 14:55 16:22 17:56 WBC (3.8-10.6) k/uL RBC (3.80-5.40) m/uL Hgb (11.4-16.0) gm/dL Hct (34.0-46.0) % MCV (80.0-100.0) fL RDW (11.5-15.5) % Plt Count (150-450) k/uL Lymphocytes # (1.0-4.8) k/uL ABG pH 7.32 L 7.33 L (7.35-7.45) ABG pCO2 52 H 51 H (35-45) mmHg ABG pO2 78 L (83-108) mmHg ABG HCO3 26 H 27 H (21-25) mmol/L ABG Total CO2 28 H 28 H (19-24) mmol/L ABG O2 Saturation 97.9 H (94-97) % Sodium (137-145) mmol/L BUN (7-17) mg/dL Creatinine (0.52-1.04) mg/dL Glucose (74-99) mg/dL POC Glucose (mg/dL) 140 H (75-99) mg/dL Calcium (8.4-10.2) mg/dL Magnesium (1.6-2.3) mg/dL Total Protein (6.3-8.2) g/dL Albumin (3.5-5.0) g/dL Procalcitonin (0.02-0.09) ng/mL 04/22/20 04/23/20 04/23/20 Range/Units 20:11 03:38 03:38 WBC 3.4 L (3.8-10.6) k/uL RBC 2.67 L (3.80-5.40) m/uL Hgb 9.2 L D (11.4-16.0) gm/dL Hct 28.3 L (34.0-46.0) % MCV 106.1 H (80.0-100.0) fL RDW 16.1 H (11.5-15.5) % Plt Count 70 L (150-450) k/uL Lymphocytes # 0.8 L (1.0-4.8) k/uL ABG pH (7.35-7.45) ABG pCO2 (35-45) mmHg ABG pO2 (83-108) mmHg ABG HCO3 (21-25) mmol/L ABG Total CO2 (19-24) mmol/L ABG O2 Saturation (94-97) % Sodium 135 L (137-145) mmol/L BUN 44 H (7-17) mg/dL Creatinine 1.95 H (0.52-1.04) mg/dL Glucose 105 H (74-99) mg/dL POC Glucose (mg/dL) 200 H (75-99) mg/dL Calcium 8.1 L (8.4-10.2) mg/dL Magnesium 1.3 L (1.6-2.3) mg/dL Total Protein 5.1 L (6.3-8.2) g/dL Albumin 2.4 L (3.5-5.0) g/dL Procalcitonin (0.02-0.09) ng/mL 04/23/20 Range/Units 07:00 WBC (3.8-10.6) k/uL RBC (3.80-5.40) m/uL Hgb (11.4-16.0) gm/dL Hct (34.0-46.0) % MCV (80.0-100.0) fL RDW (11.5-15.5) % Plt Count (150-450) k/uL Lymphocytes # (1.0-4.8) k/uL ABG pH (7.35-7.45) ABG pCO2 (35-45) mmHg ABG pO2 (83-108) mmHg ABG HCO3 (21-25) mmol/L ABG Total CO2 (19-24) mmol/L ABG O2 Saturation (94-97) % Sodium (137-145) mmol/L BUN (7-17) mg/dL Creatinine (0.52-1.04) mg/dL Glucose (74-99) mg/dL POC Glucose (mg/dL) 121 H (75-99) mg/dL Calcium (8.4-10.2) mg/dL Magnesium (1.6-2.3) mg/dL Total Protein (6.3-8.2) g/dL Albumin (3.5-5.0) g/dL Procalcitonin (0.02-0.09) ng/mL Microbiology - Last 24 Hours (Table) 04/21/20 18:23 Blood Culture - Preliminary Blood No Growth after 24 hours 04/19/20 17:28 Blood Culture - Preliminary Blood No Growth after 72 hours Assessment and Plan Assessment: Assessment and Plan Plan: 1. Febrile illness with lightheadedness, dizziness, low chest discomfort. Ruled out Covid 19, doubt urinary tract infection as cause of symptoms, doubt osteomyelitis as reason for fevers. Possible bilateral pneumonia on most recent chest x-ray. Rocephin has been changed to meropenem by pulmonary medicine. Keep the patient in the intensive care unit at this time for possible pneumonia in the left lower lobe. 2. Metabolic encephalopathy secondary to possible sepsis even though the cultures are all negative so far, she was ruled out for Covid 19, I will obtain an x-ray of the right hip to make sure that there is no destructive process, monitor the patient very closely, discontinue benzodiazepine, discontinue Remeron, discontinue pain medication, restart the patient on her prednisone 20 mg orally once every day keep the patient in the ICU for another 24 hours and reevaluate tomorrow morning. 3. History of sepsis, bacteremia secondary to left third toe gangrene with underlying osteomyelitis status post amputation 02/27. Patient completed course of IV antibiotics, transitioned to oral Keflex as an outpatient. 4. Elevated d-dimer. Pulmonary embolism ruled out by CTA. 5. Chronic anemia of chronic illness, currently stable. Continue iron 325 mg daily. 6. Recent history of stomal bleed. No active bleeding at this time. 7. Chronic kidney disease stage III. Avoid nephrotoxic agents. Her creatinine is better today 1.9. 8. Diabetes mellitus type 2. Continue NovoLog scale before meals and at bedtime. Patient is on Januvia 50 mg daily at home. 9. Hepatitis C in remission, stable. 10. Crohn's disease status post ileostomy in 2007 on chronic prednisone 20 mg daily. 11. Generalized anxiety disorder and recurrent depression. Discontinue Xanax and Remeron continue Zoloft. 12. Hypertension hypertensive cardiovascular disease. Patient is currently on 2.5 mg of amlodipine. 13. Vitamin deficiencies. Continue vitamin D 12, vitamin D, magnesium supplements. 14. Chronic gout. Continue allopurinol 100 mg daily. 15. Hyperlipidemia. Continue Lipitor 20 mg at bedtime. 16. Chronic thrombocytopenia. 17. GI prophylaxis. Pepcid. 18. DVT prophylaxis. Knee-high CRISTHIAN verae. 19. Overall prognosis continues to be guarded we'll continue to follow the patient very closely.
[2020-04-23] MEDS: CHOLECALCIFEROL 1,000 UNIT TAB PO SCH (10:16)
[2020-04-23] MEDS: ATORVASTATIN 20 MG TAB PO SCH (10:16)
[2020-04-23] MEDS: allopurinoL 100 MG TAB PO SCH (10:16)
[2020-04-23] MEDS: CALCIUM CARBONATE 500 MG CHEWABLE PO SCH (10:16)
[2020-04-23] MEDS: CYANOCOBALAMIN 500 MCG TAB PO SCH (10:17)
[2020-04-23] MEDS: FERROUS SULFATE 325 MG TAB PO SCH (10:17)
[2020-04-23] MEDS: predniSONE 20 MG TAB PO SCH (10:18)
[2020-04-23 12:18] LABS: Glucose,Whole Blood 124 mg/dL (75-99)
--- NOTE | 2020-04-23 12:59 | P.PN ---
Subjective Progress Note Date: 04/23/20 On today's evaluation of 04/23/2020, the patient seems to much more awake compared to yesterday. She was taken off the benzodiazepine and she is not taking any narcotic at this point in time and she'll be also taken off the Dilaudid. She was taken off the Remeron. Stool for C. diff was negative. Blood cultures are negative. Focused on is mildly elevated. She was having a low-grade fever and currently she is afebrile. MRI of the brain came back negative. The blood gases showed a mild component of respiratory acidosis from yesterday's blood gas. Currently she denies having any cough or sputum production chest tightness or wheezing. She is still weak and lethargic although much more alert and awake compared to yesterday. She is on broad- spectrum antibiotics and the patient is currently on IV Merrem. Prednisone will be restarted dose of 20 mg by mouth daily as the patient has been chronically maintained on steroids regarding her inflammatory bowel disease. No other complaints otherwise for now. No signs of any osteomyelitis. As mentioned earlier, the patient was treated adequately post amputation the patient completed total of 6 week course of antibiotics. No neck stiffness. She has a previous ileostomy and aVF diminished function and this was inserted for Crohn's disease. She has a diabetes mellitus type 2 addition to chronic hepatitis C liver disease, chronic kidney stones. Renal function improving and the creatinine is down to 1.9. Objective - Vital Signs Vital signs: Vital Signs Temp 98.8 F 04/23/20 12:00 Pulse 96 04/23/20 12:00 Resp 17 04/23/20 12:00 BP 104/54 04/23/20 12:00 Pulse Ox 96 04/23/20 12:00 Intake & Output 04/22/20 04/23/20 04/23/20 18:59 06:59 18:59 Intake Total 100 850 300 Output Total 65 1065 210 Balance 35 -215 90 Weight 80.2 kg Intake: IV 100 850 300 Sodium Chloride 0.9% 1, 550 300 000 ml @ 50 mls/hr IV . Q20H [facility] Rx#:[id number] Sodium Chloride 0.9% 250 250 ml @ 999 mls/hr IV .Q16M [facility] Rx#:[id number] cefTRIAXone 1 gm In 100 50 Sodium Chloride 0.9% 50 ml @ 100 mls/hr IVPB Q24H [facility] Rx#:[id number] Output: Urine 65 265 210 Stool 800 Other: Voiding Method Indwelling Catheter Indwelling Catheter Indwelling Catheter # Voids 1 1 - Exam GENERAL EXAM: The patient is much more arousable and awake compared to yesterday. 64-year-old white female, the breathing is nonlabored on 2 of oxygen pulse ox of 93% comfortable in no apparent distress. HEAD: Normocephalic/atraumatic. EYES: Normal reaction of pupils, equal size. Conjunctiva pink, sclera white. NOSE: Clear with pink turbinates. THROAT: No erythema or exudates. NECK: No masses, no JVD, no thyroid enlargement, no adenopathy. CHEST: No chest wall deformity. Symmetrical expansion. LUNGS: Equal air entry with no crackles, wheeze, rhonchi or dullness. CVS: Regular rate and rhythm, normal S1 and S2, no gallops, no murmurs, no rubs ABDOMEN: Soft, nontender. No hepatosplenomegaly, normal bowel sounds, no guarding or rigidity. EXTREMITIES: No clubbing, no edema, no cyanosis, 2+ pulses and upper and lower extremities. MUSCULOSKELETAL: Muscle strength and tone normal. SPINE: No scoliosis or deformity SKIN: Left foot wound post surgery incision over the third phalanx on the left foot clean dry and intact covered with dressing. CENTRAL NERVOUS SYSTEM: Alert and oriented -3. No focal deficits, tone is normal in all 4 extremities. PSYCHIATRIC: Alert and oriented -3. Appropriate affect. Intact judgment and insight. - Labs CBC & Chem 7: 04/23/20 03:38 04/23/20 03:38 Labs: Abnormal Lab Results - Last 24 Hours (Table) 04/22/20 04/22/20 04/22/20 Range/Units 12:27 14:55 16:22 WBC (3.8-10.6) k/uL RBC (3.80-5.40) m/uL Hgb (11.4-16.0) gm/dL Hct (34.0-46.0) % MCV (80.0-100.0) fL RDW (11.5-15.5) % Plt Count (150-450) k/uL Lymphocytes # (1.0-4.8) k/uL ABG pH 7.32 L (7.35-7.45) ABG pCO2 52 H (35-45) mmHg ABG pO2 (83-108) mmHg ABG HCO3 26 H (21-25) mmol/L ABG Total CO2 28 H (19-24) mmol/L ABG O2 Saturation 97.9 H (94-97) % Sodium (137-145) mmol/L BUN (7-17) mg/dL Creatinine (0.52-1.04) mg/dL Glucose (74-99) mg/dL POC Glucose (mg/dL) 140 H (75-99) mg/dL Calcium (8.4-10.2) mg/dL Magnesium (1.6-2.3) mg/dL Total Protein (6.3-8.2) g/dL Albumin (3.5-5.0) g/dL Procalcitonin 0.62 H (0.02-0.09) ng/mL 04/22/20 04/22/20 04/23/20 Range/Units 17:56 20:11 03:38 WBC 3.4 L (3.8-10.6) k/uL RBC 2.67 L (3.80-5.40) m/uL Hgb 9.2 L D (11.4-16.0) gm/dL Hct 28.3 L (34.0-46.0) % MCV 106.1 H (80.0-100.0) fL RDW 16.1 H (11.5-15.5) % Plt Count 70 L (150-450) k/uL Lymphocytes # 0.8 L (1.0-4.8) k/uL ABG pH 7.33 L (7.35-7.45) ABG pCO2 51 H (35-45) mmHg ABG pO2 78 L (83-108) mmHg ABG HCO3 27 H (21-25) mmol/L ABG Total CO2 28 H (19-24) mmol/L ABG O2 Saturation (94-97) % Sodium (137-145) mmol/L BUN (7-17) mg/dL Creatinine (0.52-1.04) mg/dL Glucose (74-99) mg/dL POC Glucose (mg/dL) 200 H (75-99) mg/dL Calcium (8.4-10.2) mg/dL Magnesium (1.6-2.3) mg/dL Total Protein (6.3-8.2) g/dL Albumin (3.5-5.0) g/dL Procalcitonin (0.02-0.09) ng/mL 04/23/20 04/23/20 04/23/20 Range/Units 03:38 07:00 12:16 WBC (3.8-10.6) k/uL RBC (3.80-5.40) m/uL Hgb (11.4-16.0) gm/dL Hct (34.0-46.0) % MCV (80.0-100.0) fL RDW (11.5-15.5) % Plt Count (150-450) k/uL Lymphocytes # (1.0-4.8) k/uL ABG pH (7.35-7.45) ABG pCO2 (35-45) mmHg ABG pO2 (83-108) mmHg ABG HCO3 (21-25) mmol/L ABG Total CO2 (19-24) mmol/L ABG O2 Saturation (94-97) % Sodium 135 L (137-145) mmol/L BUN 44 H (7-17) mg/dL Creatinine 1.95 H (0.52-1.04) mg/dL Glucose 105 H (74-99) mg/dL POC Glucose (mg/dL) 121 H 124 H (75-99) mg/dL Calcium 8.1 L (8.4-10.2) mg/dL Magnesium 1.3 L (1.6-2.3) mg/dL Total Protein 5.1 L (6.3-8.2) g/dL Albumin 2.4 L (3.5-5.0) g/dL Procalcitonin (0.02-0.09) ng/mL Microbiology - Last 24 Hours (Table) 04/21/20 18:23 Blood Culture - Preliminary Blood No Growth after 24 hours 04/19/20 17:28 Blood Culture - Preliminary Blood No Growth after 72 hours Assessment and Plan Plan: 1 acute febrile illness currently under investigation. The fever workup was essentially negative. Cultures of been negative. The coronavirus Covid 19 testing came back also negative. The patient has some altered mental status. The workup has been negative. The patient was seen by neurology. MRI of the brain came back negative. Blood cultures negative. Pro-calcitonin level was slightly elevated at 0.41 and the patient was placed on broad-spectrum antibiotics and the patient is currently on IV Merrem. 2 Crohn disease, maintain on prednisone 20 mg on a daily basis. 3 previous history of ileostomy with a parastomal hernia which is currently stable. 4 hepatitis C 5 chronic kidney disease with a baseline creatinine, with a component of acute kidney injury, consider contrast nephropathy. 6 diabetes mellitus 7 hypertension 8 chronic thrombocytopenia 9 chronic and the patient's anemia 10 history of gangrenous toe and osteomyelitis with presentation of the left third toe completing IV antibiotics with Kefzol be a PICC line that was removed and following that the patient was treated with a course of Keflex 11 nephrolithiasis, nonobstructive 12 previous history of sepsis/ARDS in 2007 13 history of gout 14 hyperlipidemia 15 atelectatic changes in lung bases bilaterally, please refer to the CAT scan of the abdomen and CAT scan of the chest Plan monitor mentation in the intensive care unit. monitor fever pattern. resume prednisone 20 mg on a daily basis discontinue the Dilaudid and the benzodiazepine and also stop the Remeron for now continue IV Merrem nephrology follow-up in regards to the acute renal/kidney injury in the creatinine is improving is currently down to 1.9 We'll continue to follow
[2020-04-23 16:50] LABS: Glucose,Whole Blood 159 mg/dL (75-99)
[2020-04-23 20:19] LABS: Glucose,Whole Blood 157 mg/dL (75-99)
[2020-04-23 20:50] LABS: Glucose,Whole Blood 154 mg/dL (75-99)
[2020-04-23] MEDS: SODIUM CHLORIDE 0.9% 1,000 ML IV SCH (21:14)
[2020-04-23] MEDS: SERTRALINE 100 MG TAB PO SCH (21:14)
[2020-04-24] MEDS: MEROPENEM 1 GM in SODIUM CHLORIDE 0.9% 100 ML IVPB SCH ×3 (01:30→17:05)
[2020-04-24 06:03] LABS: Calcium 8.5 mg/dL (8.4-10.2); Potassium 4.5 mmol/L (3.5-5.1)
[2020-04-24 06:09] LABS: Anisocytosis Slight; Basophils % (A) 0 %; Eosinophils # (A) 0.1 k/uL (0-0.7); Eosinophils % (A) 2 %; HCT 30.6 % (34.0-46.0); HGB 9.8 gm/dL (11.4-16.0); Lymphocytes # (A) 0.7 k/uL (1.0-4.8); Lymphocytes % (A) 17 %; MCH 33.5 pg (25.0-35.0); MCV 104.8 fL (80.0-100.0); Macrocytosis Moderate; Mean Platelet Volume 8.2; Monocytes # (A) 0.3 k/uL (0-1.0); Monocytes % (A) 7 %; Neutrophils # (A) 2.9 k/uL (1.3-7.7); Neutrophils % (A) 72 %; RBC 2.92 m/uL (3.80-5.40); RDW 16.2 % (11.5-15.5)
[2020-04-24 06:31] LABS: Platelet Count 93 k/uL (150-450)
[2020-04-24 06:32] LABS: Glucose,Whole Blood 83 mg/dL (75-99)
[2020-04-24] MEDS: INSULIN ASPART (NovoLOG) 100 UNIT/ML VIAL SQ SCH ×4 (07:33→23:45)
--- NOTE | 2020-04-24 07:34 | XR ---
EXAMINATION TYPE: XR chest 1V portable DATE OF EXAM: 04/24/2020 COMPARISON: 04/23/2020 INDICATION: Exertional dyspnea TECHNIQUE: Single frontal view of the chest is obtained. FINDINGS: The heart size is normal. The pulmonary vasculature is normal. There is a mild infiltrate at the left base which is worsening. Right basilar atelectasis appears sim ilar. IMPRESSION: 1. Bibasilar infiltrates. Correlate for atelectasis. Developing pneumonia the left base is not exclud ed. Follow-up is recommended.
--- NOTE | 2020-04-24 09:34 | P.PN ---
Subjective Progress Note Date: 04/24/20 This is a 64-year-old female with past medical history of Crohn's disease status post ileostomy, type 2 diabetes, hepatitis C liver disease, osteoarthritis history of kidney stones, chronic iron deficiency anemia, with an issue with stomal bleed on and off. She was recently hospitalized in February which time she underwent an amputation of the left third toe due to gangrene and underlying osteomyelitis by Dr. Briones. She was maintained on IV antibiotics with Kefzol for a 6 week course and finished yesterday. She was then transitioned to oral Keflex 500 mg 3 times daily. PICC line was also removed yesterday. Patient feels that she has dizziness and is off balance and feels she will fall over when she stands that started yesterday. She is currently ambulatory on the right lower extremity. She was also having low-grade fever, increased pain with deep inspiration. Pain is to the lower rib areas bilaterally. Patient presented to [facility] emergency center for evaluation. Temperature was 100.9, heart rate 120, blood pressure 139/79, pulse ox 95% on room air. EKG was a sinus tachycardia without acute ST changes. WBC 5.5, hemoglobin 12.2 2. Platelet count 63. Sodium 135, potassium 4.7, chloride 102, CO2 28, BUN 37 creatinine 1.54. Blood sugar 121. D-dimer 2.61. Ferritin 1237.7. LDH 846. CRP 54.7. Pro-calcitonin 0.41. AST 45. Urinalysis clear with blood moderate, leukoesterase trace and PVCs 14. Blood culture urine culture and COVID-19 are pending. CTA of the chest was negative for pulmonary embolism. Patchy peripheral pulmonary fibrotic changes and atelectasis. COPD. No suspicious mass. CAT scan of the abdomen and pelvis with contrast revealed linear infiltrate and atelectasis at the lung bases. Ileostomy with. He stomal hernia containing a loop of ileum. No bowel obstruction. Nonobstructive bilateral renal calculi. Consult in place for neurology and pulmonary medicine. Patient admitted to the cardiac stepdown unit. 04/21: Patient denies having any shortness of breath. In general she is feeling better. She has been hungry and eating well. Her only concern is when she gets up to walk she feels shaky. Temperature max was 100.4 yesterday at 1600, heart rate 96, blood pressure 132/68, pulse ox 97% on 3 L nasal cannula. She has been seen by neurology and Antivert started 12.5 mg twice daily. MRI of the brain revealed no evidence of recent infarct. Mild diffuse cerebral atrophy and moderate chronic small vessel ischemic changes. EEG was normal for age. Repeat blood work reveals sodium 135, BUN [address] Tang history of her on IV fluids of 0.9 normal saline at 50 mL per hour. Urine culture has been finalized with no growth at 18 hours and blood culture is in process. COVID-19 n egative. She is continued on Rocephin. Left foot x-ray has been ordered by pulmonary medicine. 04/22: Patient's blood pressure is on the low side, tachycardic, febrile and she has had some lethargy this morning. Dilaudid was discontinued. Patient is currently on ceftriaxone changed to meropenem by pulmonary and blood cultures were obtained yesterday afternoon and repeat today. Temperature max was 101.4 yesterday afternoon. Repeat blood work reveals WBC of 5.6, hemoglobin 11.5, platelet count 82. BUN 44 and creatinine 2.16. Blood sugars running between 100 2756. C. difficile toxin was negative. Lactic acid 1.1. Chest x-ray reveals chronic parenchymal changes and mild cardiomegaly with left greater than right bibasilar acute infiltrate and/or atelectasis. Left basilar findings more prominent. Left foot x-ray reveals destructive change of the third digit phalanx redemonstrated from 03/02. Suggestive of osteomyelitis. Patient's was contacted via phone and updated by Dr. Kothari. PT/OT and recommended subacute rehab. 04/23: Patient's appear to be a bit drowsy however she is better than yesterday, we took her off benzodiazepine, with a crit of Dilaudid, we took her off Remeron, restarted back on prednisone 20 mg orally once every day, I spoke at length with her who is expressed his concern about her mentation at this point in time, all the cultures so far has been negative, patient had an MRI of the brain that was negative she had a computed tomography scan of the chest and abdomen and pelvis that was negative as well, patient is complaining of some weakness in the right lower extremity because of pain in the right hip, we will obtain x-ray of the right hip, we will monitor the patient in the ICU for another 24 hours, she continues to be somewhat drowsy, her creatinine is improving at 1.9, I believe this is a combination of acute renal failure on top of chronic kidney disease related to contrast-induced nephropathy that has been resolving and medication side effects including benzodiazepine and Dilaudid, patient will be kept in the ICU for another 24 hours, is expressing his concern about the eschar that she had on her left heel that has been healing we will ask for wound care consult for evaluation may be to continue with the skin prep as needed and keep the heel in the heel protector flashes the hospital, try to get the patient up in a chair if possible. 04/24: Patient is doing much better she denies any chest pain or any shortness breath, she is more awake and more alert today off the benzodiazepine as well as Remeron, her GFR is much better today we will Hep-Lock her IV would move her to a medical floor, hopefully she will be discharged home in the next 24 hours. Objective - Vital Signs Vital signs: Vital Signs Temp 97.6 F 04/24/20 04:00 Pulse 83 04/24/20 07:00 Resp 31 H 04/24/20 07:00 BP 128/116 04/24/20 07:00 Pulse Ox 96 04/24/20 07:00 Intake & Output 04/23/20 04/24/20 04/24/20 19:59 06:59 18:59 Intake Total 50 Output Total 75 Balance -25 Weight Intake: IV 50 Sodium Chloride 0.9% 1, 50 000 ml @ 50 mls/hr IV . Q20H [facility] Rx#:[id number] Oral Output: Urine 75 Other: Voiding Method - Exam - Exam Review of Systems Constitutional: Reports fatigue, Reports malaise, Denies chills, Denies fever, Denies weight loss Eyes: denies blurred vision, denies pain Ears, nose, mouth and throat: Reports vertigo, Denies headache, Denies nasal congestion, Denies nasal discharge, Denies sore throat Cardiovascular: Denies chest pain, Reports dyspnea on exertion, Reports lightheadedness, Denies edema, Denies leg edema, Denies shortness of breath Respiratory: Denies cough, Denies excessive sputum, Denies hemoptysis, Denies home oxygen, Denies respiratory infections Gastrointestinal: Denies abdominal pain, Denies bloating, Denies diarrhea, Denies loss of appetite, Denies nausea, Denies vomiting Genitourinary: Denies dysuria, Denies hematuria, Denies urgency, Denies urinary frequency Menstruation: Reports postmenopausal Musculoskeletal: Denies frequent falls, Denies gait dysfunction, Denies muscle weakness, Denies myalgias Integumentary: Denies pruritus, Denies rash, Denies wounds Neurological: Reported mentation, Denies change in speech, Denies numbness, Denies seizures, Denies weakness Psychiatric: Denies anxiety, Denies depression Endocrine: Denies fatigue, Denies weight change Physical Examination Gen: This is a 64-year-old female. Patient is resting in bed appears a bit drowsy however better than yesterday. HEENT: Head is atraumatic, normocephalic. Pupils equal, round. Sclerae is anicte alf, mucous migraines and mouth are somewhat dry. NECK: Supple. No JVD. No lymphadenopathy. No thyromegaly. LUNGS: Crackles to the bilateral bases. No wheezing. No intercostal retractions. HEART: Regular rate and rhythm. First heart sound is depressed, second heart sound is normal, 2/6 systolic ejection murmur at the left sternal border. ABDOMEN: Soft. Bowel sounds are present. No masses. No tenderness. Ostomy is pink, no active bleeding, brown stool in ostomy bag EXTREMITIES: No pedal edema. No calf tenderness. Dorsalis pedis +1 bilaterally, there is a left heel eschar that has been healing and appears much better than it was. NEUROLOGICAL: Patient is oriented to person and place. Cranial nerves 2 through 12 are grossly intact, patient appears to be a bit weaker in the right lower extremity however she stated that she has some pain in the right hip area . - Labs CBC & Chem 7: 04/24/20 03:34 04/24/20 03:34 Labs: Abnormal Lab Results - Last 24 Hours (Table) 04/23/20 04/23/20 04/23/20 Range/Units 12:16 16:49 20:18 RBC (3.80-5.40) m/uL Hgb (11.4-16.0) gm/dL Hct (34.0-46.0) % MCV (80.0-100.0) fL RDW (11.5-15.5) % Plt Count (150-450) k/uL Lymphocytes # (1.0-4.8) k/uL Sodium (137-145) mmol/L BUN (7-17) mg/dL Creatinine (0.52-1.04) mg/dL POC Glucose (mg/dL) 124 H 159 H 157 H (75-99) mg/dL 04/23/20 04/24/20 04/24/20 Range/Units 20:49 03:34 03:34 RBC 2.92 L (3.80-5.40) m/uL Hgb 9.8 L (11.4-16.0) gm/dL Hct 30.6 L (34.0-46.0) % MCV 104.8 H (80.0-100.0) fL RDW 16.2 H (11.5-15.5) % Plt Count 93 L (150-450) k/uL Lymphocytes # 0.7 L (1.0-4.8) k/uL Sodium 136 L (137-145) mmol/L BUN 31 H (7-17) mg/dL Creatinine 1.12 H (0.52-1.04) mg/dL POC Glucose (mg/dL) 154 H (75-99) mg/dL Microbiology - Last 24 Hours (Table) 04/21/20 18:23 Blood Culture - Preliminary Blood No Growth after 48 hours 04/19/20 17:28 Blood Culture - Preliminary Blood No Growth after 96 hours 04/22/20 12:27 Blood Culture - Preliminary Blood No Growth after 24 hours Assessment and Plan Assessment: Assessment and Plan Plan: 1. Febrile illness with lightheadedness, dizziness, low chest discomfort. Ruled out Covid 19, doubt urinary tract infection as cause of symptoms, doubt osteomyelitis as reason for fevers. Possible bilateral pneumonia on most recent chest x-ray. Rocephin has been changed to meropenem by pulmonary medicine. Keep the patient in the intensive care unit at this time for possible pneumonia in the left lower lobe. 2. Metabolic encephalopathy secondary to possible sepsis even though the cultures are all negative so far, she was ruled out for Covid 19, I will obtain an x-ray of the right hip to make sure that there is no destructive process, monitor the patient very closely, discontinue benzodiazepine, discontinue Remeron, discontinue pain medication, restart the patient on her prednisone 20 mg orally once every day keep the patient in the ICU for another 24 hours and reevaluate tomorrow morning. 3. History of sepsis, bacteremia secondary to left third toe gangrene with underlying osteomyelitis status post amputation 02/27. Patient completed course of IV antibiotics, transitioned to oral Keflex as an outpatient. 4. Elevated d-dimer. Pulmonary embolism ruled out by CTA. 5. Chronic anemia of chronic illness, currently stable. Continue iron 325 mg daily. 6. Recent history of stomal bleed. No active bleeding at this time. 7. Chronic kidney disease stage III. Avoid nephrotoxic agents. Her creatinine is better today 1.9. 8. Diabetes mellitus type 2. Continue NovoLog scale before meals and at bedtime. Patient is on Januvia 50 mg daily at home. 9. Hepatitis C in remission, stable. 10. Crohn's disease status post ileostomy in 2007 on chronic prednisone 20 mg daily. 11. Generalized anxiety disorder and recurrent depression. Discontinue Xanax and Remeron continue Zoloft. 12. Hypertension hypertensive cardiovascular disease. Patient is currently on 2.5 mg of amlodipine. 13. Vitamin deficiencies. Continue vitamin D 12, vitamin D, magnesium supplements. 14. Chronic gout. Continue allopurinol 100 mg daily. 15. Hyperlipidemia. Continue Lipitor 20 mg at bedtime. 16. Chronic thrombocytopenia. 17. GI prophylaxis. Pepcid. 18. DVT prophylaxis. Knee-high CRISTHIAN ortiz. 19. Medically stable to be transferred out of the ICU, hopefully home in the next 24 hours.
[2020-04-24] MEDS: MAGNESIUM SULFATE-D5W PMX 1 GM in DEXTROSE/WATER 1 100ML.BAG IVPB SCH ×2 (10:27→11:02)
[2020-04-24] MEDS: predniSONE 20 MG TAB PO SCH (10:33)
[2020-04-24] MEDS: ATORVASTATIN 20 MG TAB PO SCH (10:33)
--- NOTE | 2020-04-24 10:40 | P.PN ---
Subjective Patient is seen in follow-up for acute kidney injury on chronic kidney disease. Renal function better. She is maintained on IV fluids. Hypotension resolved. Awake and alert. Oral intake good. No vomiting or diarrhea. She did receive 500 mL bolus last night. Blood pressure better. She is awake and alert. Vital signs are stable. General: The patient appeared well nourished and normally developed. HEENT: Head exam is unremarkable. Neck is without jugular venous distension. LUNGS: Breath sounds decreased. HEART: Rate and Rhythm are regular. ABDOMEN: Soft, nontender. EXTREMITITES: No edema. Objective - Vital Signs Vital signs: Vital Signs Temp 98.8 F 04/24/20 08:00 Pulse 78 04/24/20 09:00 Resp 22 04/24/20 09:00 BP 147/77 04/24/20 09:00 Pulse Ox 97 04/24/20 09:00 Intake & Output 04/23/20 04/24/20 04/24/20 19:59 06:59 18:59 Intake Total 430 Output Total 190 Balance 240 Weight Intake: IV 190 Sodium Chloride 0.9% 1, 190 000 ml @ 50 mls/hr IV . Q20H [facility] Rx#:[id number] Oral 240 Output: Urine 190 Other: Voiding Method Indwelling Catheter - Labs CBC & Chem 7: 04/24/20 03:34 04/24/20 03:34 Labs: Abnormal Lab Results - Last 24 Hours (Table) 04/23/20 04/23/20 04/23/20 Range/Units 12:16 16:49 20:18 RBC (3.80-5.40) m/uL Hgb (11.4-16.0) gm/dL Hct (34.0-46.0) % MCV (80.0-100.0) fL RDW (11.5-15.5) % Plt Count (150-450) k/uL Lymphocytes # (1.0-4.8) k/uL Sodium (137-145) mmol/L BUN (7-17) mg/dL Creatinine (0.52-1.04) mg/dL POC Glucose (mg/dL) 124 H 159 H 157 H (75-99) mg/dL 04/23/20 04/24/20 04/24/20 Range/Units 20:49 03:34 03:34 RBC 2.92 L (3.80-5.40) m/uL Hgb 9.8 L (11.4-16.0) gm/dL Hct 30.6 L (34.0-46.0) % MCV 104.8 H (80.0-100.0) fL RDW 16.2 H (11.5-15.5) % Plt Count 93 L (150-450) k/uL Lymphocytes # 0.7 L (1.0-4.8) k/uL Sodium 136 L (137-145) mmol/L BUN 31 H (7-17) mg/dL Creatinine 1.12 H (0.52-1.04) mg/dL POC Glucose (mg/dL) 154 H (75-99) mg/dL Microbiology - Last 24 Hours (Table) 04/21/20 18:23 Blood Culture - Preliminary Blood No Growth after 48 hours 04/19/20 17:28 Blood Culture - Preliminary Blood No Growth after 96 hours 04/22/20 12:27 Blood Culture - Preliminary Blood No Growth after 24 hours Assessment and Plan Plan: Assessment: 1. Acute kidney injury secondary to ATN secondary to hypotension and infection. Renal function improving. Creatinine 1.12 today. 2. Chronic kidney disease stage III with baseline creatinine near 1.5 secondary to nephrosclerosis and diabetic kidney disease. She was also noted to have elevated lambda free light chains. Serum immunofixation positive for IgG lambda. She has been seen by heme/onc in the past and will need to follow-up with them upon discharge. 3. History of Crohn's disease status post ileostomy. 4. Left foot osteomyelitis maintained on antibiotics. 5. Hypomagnesemia from poor intake. Improved post replacement. 6. Diabetes mellitus. Plan: Hep-Lock IV fluids. Continue to monitor renal function and urine output. Encouraged oral intake.
[2020-04-24] MEDS: CALCIUM CARBONATE 500 MG CHEWABLE PO SCH (10:59)
[2020-04-24] MEDS: allopurinoL 100 MG TAB PO SCH (10:59)
[2020-04-24] MEDS: CYANOCOBALAMIN 500 MCG TAB PO SCH (10:59)
[2020-04-24] MEDS: FERROUS SULFATE 325 MG TAB PO SCH (10:59)
[2020-04-24] MEDS: CHOLECALCIFEROL 1,000 UNIT TAB PO SCH (10:59)
[2020-04-24] MEDS: NON FORMULARY DRUG (Lifitegrast [Xiidra] 1 EACH Droperette) BOTH EYES SCH ×2 (11:06→23:20)
[2020-04-24 11:46] LABS: Glucose,Whole Blood 135 mg/dL (75-99)
--- NOTE | 2020-04-24 13:02 | P.PN ---
Subjective Progress Note Date: 04/24/20 04/24/2020, Etta is much more awake and alert compared to yesterday. She is on room air oxygen. She is afebrile and the renal function is also improved. She has no specific complaints. She is alert and communicating. No nausea. No vomiting. No abdominal pain. No chest pain. No cough or sputum production. She remains on IV meropenem as a broad-spectrum antibiotic coverage as was started in suspicion for an underlying septic event. She was taken off the benzodiazepines. She was also taken off the Remeron and as such the patient is much more alert and awake compared to yesterday. Objective - Vital Signs Vital signs: Vital Signs Temp 98.8 F 04/24/20 08:00 Pulse 90 04/24/20 11:00 Resp 24 04/24/20 12:00 BP 145/70 04/24/20 11:00 Pulse Ox 97 04/24/20 11:00 Intake & Output 04/23/20 04/24/20 04/24/20 19:59 06:59 18:59 Intake Total 630 Output Total 190 Balance 440 Weight Intake: IV 390 Magnesium Sulfate-D5w Pmx 100 1 gm In Dextrose/Water 1 100ml.bag @ 100 mls/hr IVPB Q1H [facility] Rx#: [id number] Meropenem 1 gm In Sodium 100 Chloride 0.9% 100 ml @ 33 .3 mls/hr IVPB Q12H [facility] Rx#:[id number] Sodium Chloride 0.9% 1, 190 000 ml @ 50 mls/hr IV . Q20H [facility] Rx#:[id number] Oral 240 Output: Urine 190 Other: Voiding Method Indwelling Catheter - Exam GENERAL EXAM: The patient is alert and oriented and she is on room air oxygen for now.. NECK: No masses, no JVD, no thyroid enlargement, no adenopathy. CHEST: No chest wall deformity. Symmetrical expansion. LUNGS: Equal air entry with no crackles, wheeze, rhonchi or dullness. CVS: Regular rate and rhythm, normal S1 and S2, no gallops, no murmurs, no rubs ABDOMEN: Soft, nontender. No hepatosplenomegaly, normal bowel sounds, no guarding or rigidity. EXTREMITIES: No clubbing, no edema, no cyanosis, 2+ pulses and upper and lower extremities. MUSCULOSKELETAL: Muscle strength and tone normal. SPINE: No scoliosis or deformity SKIN: Left foot wound post surgery incision over the third phalanx on the left foot clean dry and intact covered with dressing. CENTRAL NERVOUS SYSTEM: Alert and oriented -3. No focal deficits, tone is normal in all 4 extremities. PSYCHIATRIC: Alert and oriented -3. Appropriate affect. Intact judgment and insight. - Labs CBC & Chem 7: 04/24/20 03:34 04/24/20 03:34 Labs: Abnormal Lab Results - Last 24 Hours (Table) 04/23/20 04/23/20 04/23/20 Range/Units 16:49 20:18 20:49 RBC (3.80-5.40) m/uL Hgb (11.4-16.0) gm/dL Hct (34.0-46.0) % MCV (80.0-100.0) fL RDW (11.5-15.5) % Plt Count (150-450) k/uL Lymphocytes # (1.0-4.8) k/uL Sodium (137-145) mmol/L BUN (7-17) mg/dL Creatinine (0.52-1.04) mg/dL POC Glucose (mg/dL) 159 H 157 H 154 H (75-99) mg/dL 04/24/20 04/24/20 04/24/20 Range/Units 03:34 03:34 11:44 RBC 2.92 L (3.80-5.40) m/uL Hgb 9.8 L (11.4-16.0) gm/dL Hct 30.6 L (34.0-46.0) % MCV 104.8 H (80.0-100.0) fL RDW 16.2 H (11.5-15.5) % Plt Count 93 L (150-450) k/uL Lymphocytes # 0.7 L (1.0-4.8) k/uL Sodium 136 L (137-145) mmol/L BUN 31 H (7-17) mg/dL Creatinine 1.12 H (0.52-1.04) mg/dL POC Glucose (mg/dL) 135 H (75-99) mg/dL Microbiology - Last 24 Hours (Table) 04/21/20 18:23 Blood Culture - Preliminary Blood No Growth after 48 hours 04/19/20 17:28 Blood Culture - Preliminary Blood No Growth after 96 hours 04/22/20 12:27 Blood Culture - Preliminary Blood No Growth after 24 hours Assessment and Plan Plan: 1 acute febrile illness , currently afebrile and she is on empiric antibiotic coverage with IV Merrem 2 Crohn disease, maintain on prednisone 20 mg on a daily basis. 3 previous history of ileostomy with a parastomal hernia which is currently stable. 4 hepatitis C 5 chronic kidney disease with a baseline creatinine, with a component of acute kidney injury, consider contrast nephropathy. The acute kidney injury is improving and the patient's creatinine is down to 1.12. 6 diabetes mellitus 7 hypertension 8 chronic thrombocytopenia, currently at 93K 9 chronic and the patient's anemia 10 history of gangrenous toe and osteomyelitis with presentation of the left third toe completing IV antibiotics with Kefzol be a PICC line that was removed and following that the patient was treated with a course of Keflex 11 nephrolithiasis, nonobstructive 12 previous history of sepsis/ARDS in 2007 13 history of gout 14 hyperlipidemia 15 atelectatic changes in lung bases bilaterally, please refer to the CAT scan of the abdomen and CAT scan of the chest Plan monitor mentation has improved monitor fever pattern. prednisone 20 mg on a daily basis discontinue the Dilaudid and the benzodiazepine and also stop the Remeron for now continue IV Merrem and check with the pharmacy there is any dose adjustment needs to be done especially with her improving renal function. nephrology follow-up in regards to the acute renal/kidney injury in the creatinine is improving is currently down to 1.1 We'll continue to follow
[2020-04-24 17:00] LABS: Glucose,Whole Blood 164 mg/dL (75-99)
[2020-04-24 23:28] LABS: Glucose,Whole Blood 120 mg/dL (75-99)
[2020-04-25] MEDS: MEROPENEM 1 GM in SODIUM CHLORIDE 0.9% 100 ML IVPB SCH ×2 (00:02→09:04)
[2020-04-25] MEDS: SERTRALINE 100 MG TAB PO SCH (00:02)
[2020-04-25 04:28] LABS: Anisocytosis Slight; Basophils % (A) 0 %; Eosinophils # (A) 0.1 k/uL (0-0.7); Eosinophils % (A) 2 %; HCT 31.7 % (34.0-46.0); HGB 9.9 gm/dL (11.4-16.0); Lymphocytes # (A) 0.7 k/uL (1.0-4.8); Lymphocytes % (A) 19 %; MCH 32.9 pg (25.0-35.0); MCHC 31.2 g/dL (31.0-37.0); MCV 105.8 fL (80.0-100.0); Macrocytosis Moderate; Mean Platelet Volume 7.4; Monocytes # (A) 0.3 k/uL (0-1.0); Monocytes % (A) 7 %; Neutrophils # (A) 2.7 k/uL (1.3-7.7); Neutrophils % (A) 70 %; Platelet Count 102 k/uL (150-450); RBC 2.99 m/uL (3.80-5.40); RDW 16.4 % (11.5-15.5); WBC 3.9 k/uL (3.8-10.6)
[2020-04-25 04:51] LABS: ALT <6 U/L (4-34); AST 29 U/L (14-36); African American GFR (CKD) 77 (>60 ml/min/1.73 sqM); Albumin 2.7 g/dL (3.5-5.0); Alkaline Phosphatase 66 U/L (38-126); Anion Gap 2 mmol/L; Blood Urea Nitrogen 25 mg/dL (7-17); Calcium 8.6 mg/dL (8.4-10.2); Carbon Dioxide 28 mmol/L (22-30); Chloride 107 mmol/L (98-107); Glucose 85 mg/dL (74-99); Non-African American GFR(CKD) 67 (>60 ml/min/1.73 sqM); Potassium 4.5 mmol/L (3.5-5.1); Sodium 137 mmol/L (137-145); Total Bilirubin 0.6 mg/dL (0.2-1.3); Total Protein 5.5 g/dL (6.3-8.2)
--- NOTE | 2020-04-25 06:37 | XR ---
EXAMINATION TYPE: XR chest 1V DATE OF EXAM: 04/25/2020 CLINICAL HISTORY: Difficulty breathing and pneumonia progress study. TECHNIQUE: Single AP portable semiupright view of the chest is obtained. COMPARISON: Chest x-ray from one day earlier and older studies FINDINGS: Background chronic parenchymal change and somewhat low lung volumes with patchy bibasilar opacities remains present. Lateral right mid rib fracture deformity is redemonstrated. Cardiac silhou ette size is stable and upper limits of normal with atherosclerotic and slightly ectatic aortic knob. Cholecystectomy clips are noted. IMPRESSION: Low lung volumes with persistent patchy bibasilar acute infiltrate and/or atelectasis. No significant change from one day earlier.
[2020-04-25 06:53] LABS: Glucose,Whole Blood 73 mg/dL (75-99)
[2020-04-25] MEDS: INSULIN ASPART (NovoLOG) 100 UNIT/ML VIAL SQ SCH ×2 (06:59→14:28)
[2020-04-25 07:03] VITALS: TEMP 98.2
[2020-04-25] MEDS: ATORVASTATIN 20 MG TAB PO SCH (09:04)
[2020-04-25] MEDS: CALCIUM CARBONATE 500 MG CHEWABLE PO SCH (09:04)
[2020-04-25] MEDS: CHOLECALCIFEROL 1,000 UNIT TAB PO SCH (09:04)
[2020-04-25] MEDS: allopurinoL 100 MG TAB PO SCH (09:04)
[2020-04-25] MEDS: CYANOCOBALAMIN 500 MCG TAB PO SCH (09:04)
[2020-04-25] MEDS: FERROUS SULFATE 325 MG TAB PO SCH (09:04)
[2020-04-25] MEDS: predniSONE 20 MG TAB PO SCH (09:06)
--- NOTE | 2020-04-25 09:42 | P.PN ---
Subjective Patient is seen in follow-up for acute kidney injury on chronic kidney disease. Renal function better. She is off IV fluids. Hypotension resolved. Awake and alert. Oral intake good. No vomiting or diarrhea. No changes overnight. Vital signs are stable. General: The patient appeared well nourished and normally developed. HEENT: Head exam is unremarkable. Neck is without jugular venous distension. LUNGS: Breath sounds decreased. HEART: Rate and Rhythm are regular. ABDOMEN: Soft, nontender. EXTREMITITES: No edema. Objective - Vital Signs Vital signs: Vital Signs Temp 98.2 F 04/25/20 07:00 Pulse 73 04/25/20 07:00 Resp 20 04/25/20 07:00 BP 146/77 04/25/20 07:00 Pulse Ox 93 L 04/25/20 07:00 Intake & Output 04/24/20 04/25/20 04/25/20 18:59 06:59 18:59 Intake Total 630 100 Output Total 990 1365 Balance -360 -1265 Intake: IV 390 100 Magnesium Sulfate-D5w Pmx 100 1 gm In Dextrose/Water 1 100ml.bag @ 100 mls/hr IVPB Q1H [facility] Rx#: [id number] Meropenem 1 gm In Sodium 100 100 Chloride 0.9% 100 ml @ 33 .3 mls/hr IVPB Q12H [facility] Rx#:[id number] Sodium Chloride 0.9% 1, 190 000 ml @ 50 mls/hr IV . Q20H [facility] Rx#:[id number] Oral 240 Output: Urine 190 835 Stool 800 530 Other: Voiding Method Indwelling Catheter Indwelling Catheter - Labs CBC & Chem 7: 04/25/20 04:07 04/25/20 04:07 Labs: Abnormal Lab Results - Last 24 Hours (Table) 04/24/20 04/24/20 04/24/20 Range/Units 11:44 16:58 23:26 RBC (3.80-5.40) m/uL Hgb (11.4-16.0) gm/dL Hct (34.0-46.0) % MCV (80.0-100.0) fL RDW (11.5-15.5) % Plt Count (150-450) k/uL Lymphocytes # (1.0-4.8) k/uL BUN (7-17) mg/dL POC Glucose (mg/dL) 135 H 164 H 120 H (75-99) mg/dL Total Protein (6.3-8.2) g/dL Albumin (3.5-5.0) g/dL 04/25/20 04/25/20 04/25/20 Range/Units 04:07 04:07 06:52 RBC 2.99 L (3.80-5.40) m/uL Hgb 9.9 L (11.4-16.0) gm/dL Hct 31.7 L (34.0-46.0) % MCV 105.8 H (80.0-100.0) fL RDW 16.4 H (11.5-15.5) % Plt Count 102 L (150-450) k/uL Lymphocytes # 0.7 L (1.0-4.8) k/uL BUN 25 H (7-17) mg/dL POC Glucose (mg/dL) 73 L (75-99) mg/dL Total Protein 5.5 L (6.3-8.2) g/dL Albumin 2.7 L (3.5-5.0) g/dL Microbiology - Last 24 Hours (Table) 04/21/20 18:23 Blood Culture - Preliminary Blood No Growth after 72 hours 04/19/20 17:28 Blood Culture - Preliminary Blood No Growth after 120 hours 04/22/20 12:27 Blood Culture - Preliminary Blood No Growth after 48 hours Assessment and Plan Plan: Assessment: 1. Acute kidney injury secondary to ATN secondary to hypotension and infection. Renal function improving. Creatinine 0.93 today. 2. Chronic kidney disease stage III with baseline creatinine near 1.5 secondary to nephrosclerosis and diabetic kidney disease. She was also noted to have elevated lambda free light chains. Serum immunofixation positive for IgG lambda. She has been seen by heme/onc in the past and will need to follow-up with them upon discharge. 3. History of Crohn's disease status post ileostomy. 4. Left foot osteomyelitis maintained on antibiotics. 5. Hypomagnesemia from poor intake. Improved post replacement. 6. Diabetes mellitus. Plan: Remains off IV fluids. Continue to monitor renal function and urine output. Encouraged oral intake.
[2020-04-25] MEDS: NON FORMULARY DRUG (Lifitegrast [Xiidra] 1 EACH Droperette) BOTH EYES SCH (09:53)
[2020-04-25 12:06] LABS: Glucose,Whole Blood 115 mg/dL (75-99)
[2020-04-25] MEDS ORDERED: CEPHALEXIN 500 MG CAP PO SCH (13:00)
--- NOTE | 2020-04-25 13:01 | P.DS ---
Providers Date of admission: 04/20/20 10:47 Expected date of discharge: 04/25/20 Attending physician: Antonio Kothari Consults: 04/19/20 20:37 Consult Physician Urgent Consulting Provider: Rivera Norris Consult Reason/Comments: acute resp insufficiency Do you want consulting provider notified?: Yes, Notify in am 04/19/20 21:05 Consult Physician Urgent Consulting Provider: John Russo Consult Reason/Comments: ataxia Do you want consulting provider notified?: Yes, Notify in am Primary care physician: Antonio Kothari [facility] Course: This is a 64-year-old female with past medical history of Crohn's disease status post ileostomy, type 2 diabetes, hepatitis C liver disease, osteoarthritis history of kidney stones, chronic iron deficiency anemia, with an issue with stomal bleed on and off. She was recently hospitalized in February which time she underwent an amputation of the left third toe due to gangrene and underlying osteomyelitis by Dr. Briones. She was maintained on IV antibiotics with Kefzol for a 6 week course and finished yesterday. She was then transitioned to oral Keflex 500 mg 3 times daily. PICC line was also removed yesterday. Patient feels that she has dizziness and is off balance and feels she will fall over when she stands that started yesterday. She is currently ambulatory on the right lower extremity. She was also having low-grade fever, increased pain with deep inspiration. Pain is to the lower rib areas bilaterally. Patient presented to [facility] emergency center for evaluation. Temperature was 100.9, heart rate 120, blood pressure 139/79, pulse ox 95% on room air. EKG was a sinus tachycardia without acute ST changes. WBC 5.5, hemoglobin 12.2 2. Platelet count 63. Sodium 135, potassium 4.7, chloride 102, CO2 28, BUN 37 creatinine 1.54. Blood sugar 121. D-dimer 2.61. Ferritin 1237.7. LDH 846. CRP 54.7. Pro-calcitonin 0.41. AST 45. Urinalysis clear with blood moderate, leukoesterase trace and PVCs 14. Blood culture urine culture and COVID-19 are pending. CTA of the chest was negative for pulmonary embolism. Patchy peripheral pulmonary fibrotic changes and atelectasis. COPD. No suspicious mass. CAT scan of the abdomen and pelvis with contrast revealed linear infiltrate and atelectasis at the lung bases. Ileostomy with. He stomal hernia containing a loop of ileum. No bowel obstruction. Nonobstructive bilateral renal calculi. Consult in place for neurology and pulmonary medicine. Patient admitted to the cardiac stepdown unit. 04/21: Patient denies having any shortness of breath. In general she is feeling better. She has been hungry and eating well. Her only concern is when she gets up to walk she feels shaky. Temperature max was 100.4 yesterday at 1600, heart rate 96, blood pressure 132/68, pulse ox 97% on 3 L nasal cannula. She has been seen by neurology and Antivert started 12.5 mg twice daily. MRI of the brain revealed no evidence of recent infarct. Mild diffuse cerebral atrophy and moderate chronic small vessel ischemic changes. EEG was normal for age. Repeat blood work reveals sodium 135, BUN [address] Tang history of her on IV fluids of 0.9 normal saline at 50 mL per hour. Urine culture has been finalized with no growth at 18 hours and blood culture is in process. COVID-19 negative. She is continued on Rocephin. Left foot x-ray has been ordered by pulmonary medicine. 04/22: Patient's blood pressure is on the low side, tachycardic, febrile and she has had some lethargy this morning. Dilaudid was discontinued. Patient is currently on ceftriaxone changed to meropenem by pulmonary and blood cultures were obtained yesterday afternoon and repeat today. Temperature max was 101.4 yesterday afternoon. Repeat blood work reveals WBC of 5.6, hemoglobin 11.5, platelet count 82. BUN 44 and creatinine 2.16. Blood sugars running between 100 2756. C. difficile toxin was negative. Lactic acid 1.1. Chest x-ray reveals chronic parenchymal changes and mild cardiomegaly with left greater than right bibasilar acute infiltrate and/or atelectasis. Left basilar findings more prominent. Left foot x-ray reveals destructive change of the third digit phalanx redemonstrated from 03/02. Suggestive of osteomyelitis. Patient's was contacted via phone and updated by Dr. Kothari. PT/OT and recommended subacute rehab. 04/23: Patient's appear to be a bit drowsy however she is better than yesterday, we took her off benzodiazepine, with a crit of Dilaudid, we took her off Remeron, restarted back on prednisone 20 mg orally once every day, I spoke at length with her who is expressed his concern about her mentation at this point in time, all the cultures so far has been negative, patient had an MRI of the brain that was negative she had a computed tomography scan of the chest and abdomen and pelvis that was negative as well, patient is complaining of some weakness in the right lower extremity because of pain in the right hip, we will obtain x-ray of the right hip, we will monitor the patient in the ICU for another 24 hours, she continues to be somewhat drowsy, her creatinine is improving at 1.9, I believe this is a combination of acute renal failure on top of chronic kidney disease related to contrast-induced nephropathy that has been resolving and medication side effects including benzodiazepine and Dilaudid, patient will be kept in the ICU for another 24 hours, is expressing his concern about the eschar that she had on her left heel that has been healing we will ask for wound care consult for evaluation may be to continue with the skin prep as needed and keep the heel in the heel protector flashes the hospital, try to get the patient up in a chair if possible. 04/24: Patient is doing much better she denies any chest pain or any shortness breath, she is more awake and more alert today off the benzodiazepine as well as Remeron, her GFR is much better today we will Hep-Lock her IV would move her to a medical floor, hopefully she will be discharged home in the next 24 hours. discharge diagnoses: 1. Febrile illness likely due to gram negative pneumonia. 2. Metabolic encephalopathy secondary to possible sepsis even though the cultures are all negative, most likely related to bilateral tana negative pneumonia. 3. History of sepsis, bacteremia secondary to left third toe gangrene with underlying osteomyelitis status post amputation 02/27. Patient completed course of IV antibiotics, transitioned to oral Keflex as an outpatient. 4. Elevated d-dimer. Pulmonary embolism ruled out by CTA. 5. Chronic anemia of chronic illness, currently stable. 6. Recent history of stomal bleed. 7. Chronic kidney disease stage III. 8. Diabetes mellitus type 2. 9. Hepatitis C in remission. 10. Crohn's disease status post ileostomy in 2007 on chronic prednisone 20 mg daily. 11. Generalized anxiety disorder and recurrent depression. 12. Hypertension hypertensive cardiovascular disease. 13. Vitamin deficiencies. 14. Chronic gout. 15. Hyperlipidemia. 16. Chronic thrombocytopenia. Patient Condition at Discharge: Good Plan - Discharge Summary Discharge Rx Participant: Yes New Discharge Prescriptions: Continue Sertraline HCl [Zoloft] 100 mg PO HS Ferrous Sulfate [Iron (65 MG Elemental)] 325 mg PO DAILY Magnesium Oxide [Mag-Ox] 250 mg PO DAILY Cholecalciferol (Vitamin D3) [Vitamin D3] 2,000 unit PO DAILY #30 capsule predniSONE [Deltasone] 20 mg PO DAILY #30 tab sitaGLIPtin PHOSPHATE [Januvia] 50 mg PO DAILY allopurinoL [Zyloprim] 100 mg PO DAILY Rosuvastatin [Crestor] 10 mg PO DAILY amLODIPine [Norvasc] 2.5 mg PO DAILY #30 tab Potassium Chloride ER [K-Dur 10] 10 meq PO DAILY Pantoprazole [Protonix] 40 mg PO BID Lifitegrast [Xiidra] 1 drop BOTH EYES BID Cyanocobalamin (Vitamin B-12) [Vitamin B-12] 500 mcg PO DAILY Cephalexin [Keflex] 500 mg PO TID Furosemide [Lasix] 40 mg PO DAILY Calcium Carbonate [Calcium] 600 mg PO DAILY Discontinued Mirtazapine [Remeron] 15 mg PO HS ALPRAZolam [Xanax] 1 mg PO BID HYDROcodone/APAP 7.5-325MG [Wilsey 7.5-325] 1 tab PO BID Discharge Medication List Sertraline HCl [Zoloft] 100 mg PO HS 07/26/17 [History] Ferrous Sulfate [Iron (65 MG Elemental)] 325 mg PO DAILY 06/19/19 [History] Magnesium Oxide [Mag-Ox] 250 mg PO DAILY 06/19/19 [History] Cholecalciferol (Vitamin D3) [Vitamin D3] 2,000 unit PO DAILY #30 capsule 06/29/19 [Rx] predniSONE [Deltasone] 20 mg PO DAILY #30 tab 06/30/19 [Rx] Rosuvastatin [Crestor] 10 mg PO DAILY 01/26/20 [History] allopurinoL [Zyloprim] 100 mg PO DAILY 01/26/20 [History] sitaGLIPtin PHOSPHATE [Januvia] 50 mg PO DAILY 01/26/20 [History] amLODIPine [Norvasc] 2.5 mg PO DAILY #30 tab 03/07/20 [Rx] Calcium Carbonate [Calcium] 600 mg PO DAILY 04/19/20 [History] Cephalexin [Keflex] 500 mg PO TID 04/19/20 [History] Cyanocobalamin (Vitamin B-12) [Vitamin B-12] 500 mcg PO DAILY 04/19/20 [History] Furosemide [Lasix] 40 mg PO DAILY 04/19/20 [History] Lifitegrast [Xiidra] 1 drop BOTH EYES BID 04/19/20 [History] Pantoprazole [Protonix] 40 mg PO BID 04/19/20 [History] Potassium Chloride ER [K-Dur 10] 10 meq PO DAILY 04/19/20 [History] Follow up Appointment(s)/Referral(s): Antonio Kothari MD [Primary Care Provider] - 1-2 days [facility], [NON-STAFF] -
--- NOTE | 2020-04-25 13:40 | P.GSCN ---
History of Present Illness History of present illness: 64-year-old gentleman, patient has history of acute chronic renal failure with high potassium I was consulted for placement of urgent dialysis catheter. Patient has history of 4, but positive patient on ventilator patient also has history of 4 coronary artery disease and hypertension On examination patient was seen in his room patient has been intubated abdomen soft femorals are palpable bilateral Plan is placement of the dialysis catheter risk and complication discussed Past Medical History Past Medical History: Blood Disorder, Diabetes Mellitus, GERD/Reflux, Hyperlipidemia, Hypertension, Liver Disease, Osteoarthritis (OA), Renal Disease Additional Past Medical History / Comment(s): crohns, hx. hep c, past hx. sepsis & ards 2007, has ileostomy, hx. kidney stones, hx. of infection,has spacer in, hx. anemia related to intermittent bleeding from stoma, has past hx., uti , low platelets septicemia. 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 Year Discovered:: 04/25/16 MDRO Source:: Blood & Right Hip Past Surgical History: Appendectomy, Bowel Resection, Cholecystectomy, Hernia Repair, Hysterectomy, Tubal Ligation Additional Past Surgical History / Comment(s): ileostomy 2009 WITH 3-4 RE- SUTURING EPISODES RELATED TO BLEEDING, ileoscopy w/argon gas coagulation of stoma, 10-22-16 revison rt toal hip arthroplasty; 3rd toe amputation on left foot 02/2020 Past Anesthesia/Blood Transfusion Reactions: No Reported Reaction Past Psychological History: Anxiety Additional Psychological History / Comment(s): pt normally lives with her spouse and 1 pet dog in a single level home that has 3 steps in which to enter. but went [facility] Smoking Status: Former smoker Past Alcohol Use History: None Reported Additional Past Alcohol Use History / Comment(s): started 1974, quit smoking 2007, 1ppd Past Drug Use History: None Reported - Past Family History Mother Family Medical History: CVA/TIA, Diabetes Mellitus Additional Family Medical History / Comment(s): Mother at age 88 from CVA. Sister(s) Additional Family Medical History / Comment(s): Patient has 3 sisters with no major medical problems. Patient does not have any brothers. Patient has 2 sons with no major medical problems. Father Family Medical History: Cancer Additional Family Medical History / Comment(s): . Medications and Allergies Home Medications Medication Instructions Recorded Confirmed Type Sertraline HCl [Zoloft] 100 mg PO HS 07/26/17 04/19/20 History Ferrous Sulfate [Iron (65 MG 325 mg PO DAILY 06/19/19 04/19/20 History Elemental)] Magnesium Oxide [Mag-Ox] 250 mg PO DAILY 06/19/19 04/19/20 History Cholecalciferol (Vitamin D3) 2,000 unit PO DAILY #30 capsule 06/29/19 04/19/20 Rx [Vitamin D3] predniSONE [Deltasone] 20 mg PO DAILY #30 tab 06/30/19 04/19/20 Rx Rosuvastatin [Crestor] 10 mg PO DAILY 01/26/20 04/19/20 History allopurinoL [Zyloprim] 100 mg PO DAILY 01/26/20 04/19/20 History sitaGLIPtin PHOSPHATE [Januvia] 50 mg PO DAILY 01/26/20 04/19/20 History amLODIPine [Norvasc] 2.5 mg PO DAILY #30 tab 03/07/20 04/19/20 Rx Calcium Carbonate [Calcium] 600 mg PO DAILY 04/19/20 04/19/20 History Cephalexin [Keflex] 500 mg PO TID 04/19/20 04/19/20 History Cyanocobalamin (Vitamin B-12) 500 mcg PO DAILY 04/19/20 04/19/20 History [Vitamin B-12] Furosemide [Lasix] 40 mg PO DAILY 04/19/20 04/19/20 History Lifitegrast [Xiidra] 1 drop BOTH EYES BID 04/19/20 04/19/20 History Pantoprazole [Protonix] 40 mg PO BID 04/19/20 04/19/20 History Potassium Chloride ER [K-Dur 10] 10 meq PO DAILY 04/19/20 04/19/20 History Allergies Allergy/AdvReac Type Severity Reaction Status Date / Time adhesive tape Allergy Severe Rash/Hives/Skin Verified 04/19/20 20:41 Peeling levofloxacin [From Levaquin] Allergy Severe Swelling/ra Verified 04/19/20 20:41 sh Quinolones Allergy Severe Anaphylaxis Verified 04/19/20 20:41 /Swelling enoxaparin [From Lovenox] Allergy GI bleed Verified 04/19/20 20:41 NSAIDS (Non-Steroidal AdvReac Severe GI Verified 04/19/20 20:41 Anti-Inflamma Bleeding/Liver Damage warfarin [From Coumadin] AdvReac Severe Abdominal Verified 04/19/20 20:41 Pain Surgical - Exam Vital Signs Temp Pulse Resp BP Pulse Ox 100.9 F H 120 H 16 139/79 95 04/19/20 16:18 04/19/20 16:18 04/19/20 16:18 04/19/20 16:18 04/19/20 16:18 Results - Labs 04/25/20 04:07 04/25/20 04:07 Abnormal Lab Results - Last 24 Hours (Table) 04/24/20 04/24/20 04/25/20 Range/Units 16:58 23:26 04:07 RBC 2.99 L (3.80-5.40) m/uL Hgb 9.9 L (11.4-16.0) gm/dL Hct 31.7 L (34.0-46.0) % MCV 105.8 H (80.0-100.0) fL RDW 16.4 H (11.5-15.5) % Plt Count 102 L (150-450) k/uL Lymphocytes # 0.7 L (1.0-4.8) k/uL BUN (7-17) mg/dL POC Glucose (mg/dL) 164 H 120 H (75-99) mg/dL Total Protein (6.3-8.2) g/dL Albumin (3.5-5.0) g/dL 04/25/20 04/25/20 04/25/20 Range/Units 04:07 06:52 12:05 RBC (3.80-5.40) m/uL Hgb (11.4-16.0) gm/dL Hct (34.0-46.0) % MCV (80.0-100.0) fL RDW (11.5-15.5) % Plt Count (150-450) k/uL Lymphocytes # (1.0-4.8) k/uL BUN 25 H (7-17) mg/dL POC Glucose (mg/dL) 73 L 115 H (75-99) mg/dL Total Protein 5.5 L (6.3-8.2) g/dL Albumin 2.7 L (3.5-5.0) g/dL Microbiology - Last 24 Hours (Table) 04/21/20 18:23 Blood Culture - Preliminary Blood No Growth after 72 hours 04/19/20 17:28 Blood Culture - Preliminary Blood No Growth after 120 hours 04/22/20 12:27 Blood Culture - Preliminary Blood No Growth after 48 hours Diabetes panel 04/25/20 Range/Units 04:07 Sodium 137 (137-145) mmol/L Potassium 4.5 (3.5-5.1) mmol/L Chloride 107 (98-107) mmol/L Carbon Dioxide 28 (22-30) mmol/L BUN 25 H (7-17) mg/dL Creatinine 0.93 (0.52-1.04) mg/dL Glucose 85 (74-99) mg/dL Calcium 8.6 (8.4-10.2) mg/dL AST 29 (14-36) U/L ALT <6 (4-34) U/L Alkaline Phosphatase 66 (38-126) U/L Total Protein 5.5 L (6.3-8.2) g/dL Albumin 2.7 L (3.5-5.0) g/dL Calcium panel 04/25/20 Range/Units 04:07 Calcium 8.6 (8.4-10.2) mg/dL Albumin 2.7 L (3.5-5.0) g/dL Pituitary panel 04/25/20 Range/Units 04:07 Sodium 137 (137-145) mmol/L Potassium 4.5 (3.5-5.1) mmol/L Chloride 107 (98-107) mmol/L Carbon Dioxide 28 (22-30) mmol/L BUN 25 H (7-17) mg/dL Creatinine 0.93 (0.52-1.04) mg/dL Glucose 85 (74-99) mg/dL Calcium 8.6 (8.4-10.2) mg/dL Adrenal panel 04/25/20 Range/Units 04:07 Sodium 137 (137-145) mmol/L Potassium 4.5 (3.5-5.1) mmol/L Chloride 107 (98-107) mmol/L Carbon Dioxide 28 (22-30) mmol/L BUN 25 H (7-17) mg/dL Creatinine 0.93 (0.52-1.04) mg/dL Glucose 85 (74-99) mg/dL Calcium 8.6 (8.4-10.2) mg/dL Total Bilirubin 0.6 (0.2-1.3) mg/dL AST 29 (14-36) U/L ALT <6 (4-34) U/L Alkaline Phosphatase 66 (38-126) U/L Total Protein 5.5 L (6.3-8.2) g/dL Albumin 2.7 L (3.5-5.0) g/dL
--- NOTE | 2020-04-25 13:42 | P.GSCN ---
History of Present Illness History of present illness: Preoperative diagnoses is acute chronic failure covered positive with the high potassium posterior gravis same Procedure placement of dialysis catheter right femoral approach Right groin was prepped and draped applied sterile manner 1% lidocaine were infiltrated right groin area and micropuncture introduced right common femoral vein micropuncture guidewire was passed and 4-Chinese dilator advanced top the guidewire this patient had a hernia repair done in the past it was a difficult t o pass the catheter we dilated with the dilator and then place a double-lumen dialysis catheter flushed with heparin saline and Hep-Lock dressing applied patient are to the procedure well Past Medical History Past Medical History: Blood Disorder, Diabetes Mellitus, GERD/Reflux, Hyperlipidemia, Hypertension, Liver Disease, Osteoarthritis (OA), Renal Disease Additional Past Medical History / Comment(s): crohns, hx. hep c, past hx. s epsis & ards 2007, has ileostomy, hx. kidney stones, hx. of infection,has spacer in, hx. anemia related to intermittent bleeding from stoma, has past hx., uti , low platelets septicemia. 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 Year Discovered:: 04/25/16 MDRO Source:: Blood & Right Hip Past Surgical History: Appendectomy, Bowel Resection, Cholecystectomy, Hernia Repair, Hysterectomy, Tubal Ligation Additional Past Surgical History / Comment(s): ileostomy 2009 WITH 3-4 RE- SUTURING EPISODES RELATED TO BLEEDING, ileoscopy w/argon gas coagulation of stoma, 10-22-16 revison rt toal hip arthroplasty; 3rd toe amputation on left foot 02/2020 Past Anesthesia/Blood Transfusion Reactions: No Reported Reaction Past Psychological History: Anxiety Additional Psychological History / Comment(s): pt normally lives with her spouse and 1 pet dog in a single level home that has 3 steps in which to enter. but went [facility] Smoking Status: Former smoker Past Alcohol Use History: None Reported Additional Past Alcohol Use History / Comment(s): started 1974, quit smoking 2007, 1ppd Past Drug Use History: None Reported - Past Family History Mother Family Medical History: CVA/TIA, Diabetes Mellitus Additional Family Medical History / Comment(s): Mother at age 88 from CVA. Sister(s) Additional Family Medical History / Comment(s): Patient has 3 sisters with no major medical problems. Patient does not have any brothers. Patient has 2 sons with no major medical problems. Father Family Medical History: Cancer Additional Family Medical History / Comment(s): . Medications and Allergies Home Medications Medication Instructions Recorded Confirmed Type Sertraline HCl [Zoloft] 100 mg PO HS 07/26/17 04/19/20 History Ferrous Sulfate [Iron (65 MG 325 mg PO DAILY 06/19/19 04/19/20 History Elemental)] Magnesium Oxide [Mag-Ox] 250 mg PO DAILY 06/19/19 04/19/20 History Cholecalciferol (Vitamin D3) 2,000 unit PO DAILY #30 capsule 06/29/19 04/19/20 Rx [Vitamin D3] predniSONE [Deltasone] 20 mg PO DAILY #30 tab 06/30/19 04/19/20 Rx Rosuvastatin [Crestor] 10 mg PO DAILY 01/26/20 04/19/20 History allopurinoL [Zyloprim] 100 mg PO DAILY 01/26/20 04/19/20 History sitaGLIPtin PHOSPHATE [Januvia] 50 mg PO DAILY 01/26/20 04/19/20 History amLODIPine [Norvasc] 2.5 mg PO DAILY #30 tab 03/07/20 04/19/20 Rx Calcium Carbonate [Calcium] 600 mg PO DAILY 04/19/20 04/19/20 History Cephalexin [Keflex] 500 mg PO TID 04/19/20 04/19/20 History Cyanocobalamin (Vitamin B-12) 500 mcg PO DAILY 04/19/20 04/19/20 History [Vitamin B-12] Furosemide [Lasix] 40 mg PO DAILY 04/19/20 04/19/20 History Lifitegrast [Xiidra] 1 drop BOTH EYES BID 04/19/20 04/19/20 History Pantoprazole [Protonix] 40 mg PO BID 04/19/20 04/19/20 History Potassium Chloride ER [K-Dur 10] 10 meq PO DAILY 04/19/20 04/19/20 History Allergies Allergy/AdvReac Type Severity Reaction Status Date / Time adhesive tape Allergy Severe Rash/Hives/Skin Verified 04/19/20 20:41 Peeling levofloxacin [From Levaquin] Allergy Severe Swelling/ra Verified 04/19/20 20:41 sh Quinolones Allergy Severe Anaphylaxis Verified 04/19/20 20:41 /Swelling enoxaparin [From Lovenox] Allergy GI bleed Verified 04/19/20 20:41 NSAIDS (Non-Steroidal AdvReac Severe GI Verified 04/19/20 20:41 Anti-Inflamma Bleeding/Liver Damage warfarin [From Coumadin] AdvReac Severe Abdominal Verified 04/19/20 20:41 Pain Surgical - Exam Vital Signs Temp Pulse Resp BP Pulse Ox 100.9 F H 120 H 16 139/79 95 04/19/20 16:18 04/19/20 16:18 04/19/20 16:18 04/19/20 16:18 04/19/20 16:18 Results - Labs 04/25/20 04:07 04/25/20 04:07 Abnormal Lab Results - Last 24 Hours (Table) 04/24/20 04/24/20 04/25/20 Range/Units 16:58 23:26 04:07 RBC 2.99 L (3.80-5.40) m/uL Hgb 9.9 L (11.4-16.0) gm/dL Hct 31.7 L (34.0-46.0) % MCV 105.8 H (80.0-100.0) fL RDW 16.4 H (11.5-15.5) % Plt Count 102 L (150-450) k/uL Lymphocytes # 0.7 L (1.0-4.8) k/uL BUN (7-17) mg/dL POC Glucose (mg/dL) 164 H 120 H (75-99) mg/dL Total Protein (6.3-8.2) g/dL Albumin (3.5-5.0) g/dL 04/25/20 04/25/20 04/25/20 Range/Units 04:07 06:52 12:05 RBC (3.80-5.40) m/uL Hgb (11.4-16.0) gm/dL Hct (34.0-46.0) % MCV (80.0-100.0) fL RDW (11.5-15.5) % Plt Count (150-450) k/uL Lymphocytes # (1.0-4.8) k/uL BUN 25 H (7-17) mg/dL POC Glucose (mg/dL) 73 L 115 H (75-99) mg/dL Total Protein 5.5 L (6.3-8.2) g/dL Albumin 2.7 L (3.5-5.0) g/dL Microbiology - Last 24 Hours (Table) 04/21/20 18:23 Blood Culture - Preliminary Blood No Growth after 72 hours 04/19/20 17:28 Blood Culture - Preliminary Blood No Growth after 120 hours 04/22/20 12:27 Blood Culture - Preliminary Blood No Growth after 48 hours Diabetes panel 04/25/20 Range/Units 04:07 Sodium 137 (137-145) mmol/L Potassium 4.5 (3.5-5.1) mmol/L Chloride 107 (98-107) mmol/L Carbon Dioxide 28 (22-30) mmol/L BUN 25 H (7-17) mg/dL Creatinine 0.93 (0.52-1.04) mg/dL Glucose 85 (74-99) mg/dL Calcium 8.6 (8.4-10.2) mg/dL AST 29 (14-36) U/L ALT <6 (4-34) U/L Alkaline Phosphatase 66 (38-126) U/L Total Protein 5.5 L (6.3-8.2) g/dL Albumin 2.7 L (3.5-5.0) g/dL Calcium panel 04/25/20 Range/Units 04:07 Calcium 8.6 (8.4-10.2) mg/dL Albumin 2.7 L (3.5-5.0) g/dL Pituitary panel 04/25/20 Range/Units 04:07 Sodium 137 (137-145) mmol/L Potassium 4.5 (3.5-5.1) mmol/L Chloride 107 (98-107) mmol/L Carbon Dioxide 28 (22-30) mmol/L BUN 25 H (7-17) mg/dL Creatinine 0.93 (0.52-1.04) mg/dL Glucose 85 (74-99) mg/dL Calcium 8.6 (8.4-10.2) mg/dL Adrenal panel 04/25/20 Range/Units 04:07 Sodium 137 (137-145) mmol/L Potassium 4.5 (3.5-5.1) mmol/L Chloride 107 (98-107) mmol/L Carbon Dioxide 28 (22-30) mmol/L BUN 25 H (7-17) mg/dL Creatinine 0.93 (0.52-1.04) mg/dL Glucose 85 (74-99) mg/dL Calcium 8.6 (8.4-10.2) mg/dL Total Bilirubin 0.6 (0.2-1.3) mg/dL AST 29 (14-36) U/L ALT <6 (4-34) U/L Alkaline Phosphatase 66 (38-126) U/L Total Protein 5.5 L (6.3-8.2) g/dL Albumin 2.7 L (3.5-5.0) g/dL
[2020-04-25 14:28] VITALS: BP 140/81; PULSE 82; RESP 20
--- NOTE | 2020-04-25 15:41 | P.PN ---
Subjective Progress Note Date: 04/25/20 Principal diagnosis: Acute febrile illness Patient was reevaluated today on 04/25/20, patient remains in the ICU as an overflow, she is doing great, relatively asymptomatic. She is on room air, denies any shortness of breath cough or wheezing, she is afebrile and her renal functioning has improved. She is basically asymptomatic, remains on IV Merrem, and I plan to discontinue. Cultures have been negative, and the plan is to discharge the patient home today. CBC today is relatively normal WBC count is 3.9 hemoglobin is 9.9 electrolytes and renal profile are normal Objective - Vital Signs Vital signs: Vital Signs Temp 98.2 F 04/25/20 14:00 Pulse 82 04/25/20 14:00 Resp 20 04/25/20 14:00 BP 140/81 04/25/20 14:00 Pulse Ox 94 L 04/25/20 14:00 Intake & Output 04/24/20 04/25/20 04/25/20 18:59 06:59 18:59 Intake Total 630 100 100 Output Total 990 1365 200 Balance -360 -1265 -100 Intake: IV 390 100 100 Magnesium Sulfate-D5w Pmx 100 1 gm In Dextrose/Water 1 100ml.bag @ 100 mls/hr IVPB Q1H [facility] Rx#: [id number] Meropenem 1 gm In Sodium 100 100 Chloride 0.9% 100 ml @ 33 .3 mls/hr IVPB Q12H [facility] Rx#:[id number] Meropenem 1 gm In Sodium 100 Chloride 0.9% 100 ml @ 33 .3 mls/hr IVPB Q8HR [facility] Rx#:[id number] Sodium Chloride 0.9% 1, 190 000 ml @ 50 mls/hr IV . Q20H [facility] Rx#:[id number] Oral 240 Output: Urine 190 835 200 Stool 800 530 Other: Voiding Method Indwelling Catheter Indwelling Catheter Indwelling Catheter - Exam GENERAL EXAM: The patient is alert and oriented and she is on room air oxygen for now.. NECK: No masses, no JVD, no thyroid enlargement, no adenopathy. CHEST: No chest wall deformity. Symmetrical expansion. LUNGS: Equal air entry with no crackles, wheeze, rhonchi or dullness. CVS: Regular rate and rhythm, normal S1 and S2, no gallops, no murmurs, no rubs ABDOMEN: Soft, nontender. No hepatosplenomegaly, normal bowel sounds, no guarding or rigidity. EXTREMITIES: No clubbing, no edema, no cyanosis, 2+ pulses and upper and lower extremities. MUSCULOSKELETAL: Muscle strength and tone normal. SPINE: No scoliosis or deformity SKIN: Left foot wound post surgery incision over the third phalanx on the left foot clean dry and intact covered with dressing. CENTRAL NERVOUS SYSTEM: Alert and oriented -3. No focal deficits, tone is normal in all 4 extremities. PSYCHIATRIC: Alert and oriented -3. Appropriate affect. Intact judgment and insight. - Labs CBC & Chem 7: 04/25/20 04:07 04/25/20 04:07 Labs: Abnormal Lab Results - Last 24 Hours (Table) 04/24/20 04/24/20 04/25/20 Range/Units 16:58 23:26 04:07 RBC 2.99 L (3.80-5.40) m/uL Hgb 9.9 L (11.4-16.0) gm/dL Hct 31.7 L (34.0-46.0) % MCV 105.8 H (80.0-100.0) fL RDW 16.4 H (11.5-15.5) % Plt Count 102 L (150-450) k/uL Lymphocytes # 0.7 L (1.0-4.8) k/uL BUN (7-17) mg/dL POC Glucose (mg/dL) 164 H 120 H (75-99) mg/dL Total Protein (6.3-8.2) g/dL Albumin (3.5-5.0) g/dL 04/25/20 04/25/20 04/25/20 Range/Units 04:07 06:52 12:05 RBC (3.80-5.40) m/uL Hgb (11.4-16.0) gm/dL Hct (34.0-46.0) % MCV (80.0-100.0) fL RDW (11.5-15.5) % Plt Count (150-450) k/uL Lymphocytes # (1.0-4.8) k/uL BUN 25 H (7-17) mg/dL POC Glucose (mg/dL) 73 L 115 H (75-99) mg/dL Total Protein 5.5 L (6.3-8.2) g/dL Albumin 2.7 L (3.5-5.0) g/dL Microbiology - Last 24 Hours (Table) 04/22/20 12:27 Blood Culture - Preliminary Blood No Growth after 72 hours 04/21/20 18:23 Blood Culture - Preliminary Blood No Growth after 72 hours 04/19/20 17:28 Blood Culture - Preliminary Blood No Growth after 120 hours Assessment and Plan Assessment: Impression: Acute febrile illness, exact etiology is not clear. History of Crohn's disease. History of previous ileostomy History of hepatitis C Type 2 diabetes. Hypertension. Chronic anemia. Nonobstructive nephrolithiasis. History of gout. Recommendation: Agree with discharge planning today. Suggest oral Keflex 500 mg twice a day for the next 7 days. Could be seen by Dr. Norris on outpatient basis if needed. We'll sign off and see the patient on when necessary basis. Time with Patient: Less than 30
--- NOTE | 2020-04-25 16:17 | P.PN ---
Subjective Progress Note Date: 04/25/20 Patient is seen at bedside and was at ICU upon seeing her. She said she is doing much better today compared to what she was doing this past Saturday. She continues to have the sensation that the she feels off with position. She denies of any dizziness, any ringing in the ears or hearing loss. She denies of any weakness. Denies of any visual disturbance or difficulty getting her words out. Objective - Vital Signs Vital signs: Vital Signs Temp 98.2 F 04/25/20 14:00 Pulse 82 04/25/20 14:00 Resp 20 04/25/20 14:00 BP 140/81 04/25/20 14:00 Pulse Ox 94 L 04/25/20 14:00 Intake & Output 04/24/20 04/25/20 04/25/20 18:59 06:59 18:59 Intake Total 630 100 100 Output Total 990 1365 200 Balance -360 -1265 -100 Intake: IV 390 100 100 Magnesium Sulfate-D5w Pmx 100 1 gm In Dextrose/Water 1 100ml.bag @ 100 mls/hr IVPB Q1H [facility] Rx#: [id number] Meropenem 1 gm In Sodium 100 100 Chloride 0.9% 100 ml @ 33 .3 mls/hr IVPB Q12H [facility] Rx#:[id number] Meropenem 1 gm In Sodium 100 Chloride 0.9% 100 ml @ 33 .3 mls/hr IVPB Q8HR [facility] Rx#:[id number] Sodium Chloride 0.9% 1, 190 000 ml @ 50 mls/hr IV . Q20H [facility] Rx#:[id number] Oral 240 Output: Urine 190 835 200 Stool 800 530 Other: Voiding Method Indwelling Catheter Indwelling Catheter Indwelling Catheter - Exam GENERAL: The patient is lying in bed and is not in acute distress. CHEST: The heart rate is regular rate rhythm. No murmurs to auscultation. LUNG: Clear to auscultation bilaterally no wheezing noted throughout. Not labored breathing. ABDOMEN/GI: Bowel sounds present in all 4 quadrants. No tenderness to palpation throughout. NEUROLOGICAL: Higher mental function: The patient is awake, alert, oriented to self, place and time. Patient is following commands. No aphasia and no neglect. Cranial nerves: The pupils are round, equal and reactive to light and accommodation. Visual castellano are full to confrontation throughout. Extraocular movement is intact no nystagmus is noted. Facial sensation is normal to touch throughout. The facial strength is normal throughout. Hearing is normal bilaterally to hand rub. Tongue is midline and moved [id number] without any difficulty. No dysarthria is noted. Shoulder shrug is normal bilaterally. Motor: Deferred. The strength is limited on left distal lower extremity since is wrapped in gauge from surgery. Otherwise 5 over 5 throughout. Normal tone and bulk. Cerebellum: Normal finger to nose bilaterally. Sensation: Sensation is normal to touch throughout. Reflexes (right/left): 2+ throughout upper extremities and 1+ throughout lower extremities. Could not assess left ankle since wrapped in gauge. Plantars is downgoing over the right. Left not assessed. - Labs CBC & Chem 7: 04/25/20 04:07 04/25/20 04:07 Labs: Abnormal Lab Results - Last 24 Hours (Table) 04/24/20 04/24/20 04/25/20 Range/Units 16:58 23:26 04:07 RBC 2.99 L (3.80-5.40) m/uL Hgb 9.9 L (11.4-16.0) gm/dL Hct 31.7 L (34.0-46.0) % MCV 105.8 H (80.0-100.0) fL RDW 16.4 H (11.5-15.5) % Plt Count 102 L (150-450) k/uL Lymphocytes # 0.7 L (1.0-4.8) k/uL BUN (7-17) mg/dL POC Glucose (mg/dL) 164 H 120 H (75-99) mg/dL Total Protein (6.3-8.2) g/dL Albumin (3.5-5.0) g/dL 04/25/20 04/25/20 04/25/20 Range/Units 04:07 06:52 12:05 RBC (3.80-5.40) m/uL Hgb (11.4-16.0) gm/dL Hct (34.0-46.0) % MCV (80.0-100.0) fL RDW (11.5-15.5) % Plt Count (150-450) k/uL Lymphocytes # (1.0-4.8) k/uL BUN 25 H (7-17) mg/dL POC Glucose (mg/dL) 73 L 115 H (75-99) mg/dL Total Protein 5.5 L (6.3-8.2) g/dL Albumin 2.7 L (3.5-5.0) g/dL Microbiology - Last 24 Hours (Table) 04/22/20 12:27 Blood Culture - Preliminary Blood No Growth after 72 hours 04/21/20 18:23 Blood Culture - Preliminary Blood No Growth after 72 hours 04/19/20 17:28 Blood Culture - Preliminary Blood No Growth after 120 hours Assessment and Plan Assessment: This is a 64-year-old woman with a medical problems that presented to the emergency department on 04/19/2024 sensation of off balance. She said that this been going on for several months. Toxic metabolic encephalopathy--resolved Patient sensation of feeling off with position and alleviating with rest for the last 6 to 7 months with sometimes with the feeling lightheaded. Etiology uncertain. Could be likely due to labyrinthitis vs autonomic dysfunction especially with history of diabetes and peripheral neuropathy vs audiological etiology Hx of Syncope: Does don't seem seizure in etiology Diabetic peripheral neuropathy Low-grade fever, tachycardia and the pulse ox of 93% on 3 L. Acute on chronic kidney insufficiency History of sepsis secondary due to left third toe gangrene with osteomyelitis status post amputation on 02/28/2020. Diabetes type 2 Charcot disease s/p surgery of the right foot (06/2019) Hepatitis C in remission. History of Crohn's disease status post ileostomy (2007) Hypertension History of iron deficiency History of hyperlipidemia Plan: With a static vitals was then yesterday by believe was done and accurately. I notified the nurse to repeat it today. MRI of the brain without gadolinium: No MRI evidence of recent infarct. Mild diffuse cerebral atrophy and moderate chronic small vessel ischemic changes. I personally reviewed the MRI and I agree with the radiologist findings. Routine EEG (04/21/20): Normal routine EEG. There are no focal slowing, epileptiform discharges or seizure during the study. Continue meclizine 12.5 mg twice a day Patient had extensive cardiac workup previously and she had a XIAO and was all negative on her previous admission. Recommend a loop recorder or Holter monitor. The blood and urine cultures have been negative to date. X-ray of the left foot completed yesterday showing distractive changes of the third digit phalanx redemonstrated from 03/02/2020 suggestive of osteomyelitis. She was notified the to also see an ENT as an outpatient for these presentations. She said that she was notified in the past that he see an ENT but she has not. Plan was discussed with the patient. John Russo M.D. Neuro-hospitalist Time with Patient: Less than 30
== END 2020-04-25 14:34 | disposition home or self-care (01) | DRG 871 ==
LOC: EC 16:16 → 4SSUR 21:00 → 3SCARD 22:28 → OBSVTOIN 04-20 10:47 → 6NMEDSUR 04-21 21:03 → 2SICU 04-22 16:47
PROVIDERS: ADMIT Internal Medicine; ATTEND Internal Medicine
DX: A41.50 Gram-negative sepsis, unspecified (principal); J15.6 Pneumonia due to other Gram-negative bacteria; N17.0 Acute kidney failure with tubular necrosis; G92 Toxic encephalopathy; J98.11 Atelectasis; J44.0 Chronic obstructive pulmonary disease with (acute) lower respiratory infection; K50.90 Crohn's disease, unspecified, without complications; F33.9 Major depressive disorder, recurrent, unspecified; E11.52 Type 2 diabetes mellitus with diabetic peripheral angiopathy with gangrene; E87.2 Acidosis; E11.22 Type 2 diabetes mellitus with diabetic chronic kidney disease; D63.1 Anemia in chronic kidney disease; K21.9 Gastro-esophageal reflux disease without esophagitis; M19.90 Unspecified osteoarthritis, unspecified site; N18.30 Chronic kidney disease, stage 3 unspecified; Z20.828 Contact with and (suspected) exposure to other viral communicable diseases; Z96.641 Presence of right artificial hip joint; M1A.9XX0 Chronic gout, unspecified, without tophus (tophi); E78.5 Hyperlipidemia, unspecified; F41.1 Generalized anxiety disorder; E11.610 Type 2 diabetes mellitus with diabetic neuropathic arthropathy; E11.42 Type 2 diabetes mellitus with diabetic polyneuropathy; D69.6 Thrombocytopenia, unspecified; E56.9 Vitamin deficiency, unspecified; R27.0 Ataxia, unspecified; B18.2 Chronic viral hepatitis C; E83.42 Hypomagnesemia; G89.29 Other chronic pain; I13.10 Hypertensive heart and chronic kidney disease without heart failure, with stage 1 through stage 4 chronic kidney disease, or unspecified chronic kidney disease; N20.0 Calculus of kidney; M51.26 Other intervertebral disc displacement, lumbar region; Z79.899 Other long term (current) drug therapy; Z79.84 Long term (current) use of oral hypoglycemic drugs; Z79.52 Long term (current) use of systemic steroids; Z90.710 Acquired absence of both cervix and uterus; Z88.6 Allergy status to analgesic agent; Z88.1 Allergy status to other antibiotic agents; Z88.8 Allergy status to other drugs, medicaments and biological substances; Z87.442 Personal history of urinary calculi; Z87.891 Personal history of nicotine dependence; Z90.49 Acquired absence of other specified parts of digestive tract; Z86.14 Personal history of Methicillin resistant Staphylococcus aureus infection; Z90.89 Acquired absence of other organs; Z98.51 Tubal ligation status; Z98.890 Other specified postprocedural states; Z93.2 Ileostomy status; Z83.3 Family history of diabetes mellitus; Z82.3 Family history of stroke; Z80.9 Family history of malignant neoplasm, unspecified; Z91.041 Radiographic dye allergy status; Z89.422 Acquired absence of other left toe(s)
CPT/HCPCS: 36415; 36600; 70450; 70551; 71045; 71046; 71275; 72125; 74177; 80048; 80053; 81001; 82550; 82728; 82805; 83605; 83615; 83735; 84145; 85025; 85379; 85610; 85730; 86140; 87040; 87086; 87324; 93005; 95816; 96361; 96374; 96375; 99285

== ENCOUNTER 2020-06-06 13:20 | Observation (INO) | payer MEDICARE ==
[2020-06-06] MEDS ORDERED: SODIUM CHLORIDE 0.9% 500 ML 500 ML IV STA (14:48)
[2020-06-06 15:28] LABS: Appearance,Urine Cloudy (Clear); Bilirubin,Urine Negative (Negative); Blood,Urine Small (Negative); Color,Urine Yellow; Glucose,Urine (UA) Negative (Negative); Ketones,Urine Negative (Negative); Leukocyte Esterase,Urine Large (Negative); Mucus,Urine Rare /hpf; Nitrite,Urine Negative (Negative); PH, Urine 5.5 (5.0-8.0); Protein,Urine 2+ (Negative); RBC,Urine 4 /hpf (0-5); Specific Gravity,Urine 1.017 (1.001-1.035); Squamous Epithelial Cell,Urine 3 /hpf (0-4); Urobilinogen,Urine <2.0 mg/dL (<2.0); WBC,Urine >182 /hpf (0-5)
--- NOTE | 2020-06-06 15:28 | ED ---
General Adult HPI - General Chief complaint: Dizziness Stated complaint: dizziness Time Seen by Provider: 06/06/20 14:20 Source: patient, RN notes reviewed, old records reviewed Mode of arrival: wheelchair Limitations: no limitations - History of Present Illness Initial comments: 64-year-old female presented for evaluation of dizziness, unsteady gait. Patient has had ongoing symptoms for approximately 2 months. She was admitted with similar symptoms at the end of March and states she has had these symptoms since the time of discharge. She did have one episode of vomiting which occurred 2 days ago. She has an ostomy and has constant loose stool. She does report that she gets dehydrated easily secondary to loss of fluid in her ostomy bag. She denies fever. She denies cough. She has been following with her primary care physician and her software test analyst. She was recently treated for UTI and denies current dysuria or urinary frequency. She denies focal numbness or weakness. Denies headache. Denies fever. - Related Data Home Medications Medication Instructions Recorded Confirmed Sertraline HCl [Zoloft] 100 mg PO HS 07/26/17 04/19/20 Ferrous Sulfate [Iron (65 MG 325 mg PO DAILY 06/19/19 04/19/20 Elemental)] Magnesium Oxide [Mag-Ox] 250 mg PO DAILY 06/19/19 04/19/20 Rosuvastatin [Crestor] 10 mg PO DAILY 01/26/20 04/19/20 allopurinoL [Zyloprim] 100 mg PO DAILY 01/26/20 04/19/20 sitaGLIPtin PHOSPHATE [Januvia] 50 mg PO DAILY 01/26/20 04/19/20 Calcium Carbonate [Calcium] 600 mg PO DAILY 04/19/20 04/19/20 Cephalexin [Keflex] 500 mg PO TID 04/19/20 04/19/20 Cyanocobalamin (Vitamin B-12) 500 mcg PO DAILY 04/19/20 04/19/20 [Vitamin B-12] Furosemide [Lasix] 40 mg PO DAILY 04/19/20 04/19/20 Lifitegrast [Xiidra] 1 drop BOTH EYES BID 04/19/20 04/19/20 Pantoprazole [Protonix] 40 mg PO BID 04/19/20 04/19/20 Potassium Chloride ER [K-Dur 10] 10 meq PO DAILY 04/19/20 04/19/20 Previous Rx's Medication Instructions Recorded Cholecalciferol (Vitamin D3) 2,000 unit PO DAILY #30 capsule 06/29/19 [Vitamin D3] predniSONE [Deltasone] 20 mg PO DAILY #30 tab 06/30/19 amLODIPine [Norvasc] 2.5 mg PO DAILY #30 tab 03/07/20 Allergies Allergy/AdvReac Type Severity Reaction Status Date / Time adhesive tape Allergy Severe Rash/Hives/Skin Verified 06/06/20 13:54 Peeling levofloxacin [From Levaquin] Allergy Severe Swelling/ra Verified 06/06/20 13:54 sh Quinolones Allergy Severe Anaphylaxis Verified 06/06/20 13:54 /Swelling enoxaparin [From Lovenox] Allergy GI bleed Verified 06/06/20 13:54 NSAIDS (Non-Steroidal AdvReac Severe GI Verified 06/06/20 13:54 Anti-Inflamma Bleeding/Liver Damage warfarin [From Coumadin] AdvReac Severe Abdominal Verified 06/06/20 13:54 Pain Review of Systems ROS Statement: Those systems with pertinent positive or pertinent negative responses have been documented in the HPI. ROS Other: All systems not noted in ROS Statement are negative. Past Medical History Past Medical History: Blood Disorder, Diabetes Mellitus, GERD/Reflux, Hyperlipidemia, Hypertension, Liver Disease, Osteoarthritis (OA), Renal Disease Additional Past Medical History / Comment(s): crohns, hx. hep c, past hx. se psis & ards 2007, has ileostomy, hx. kidney stones, hx. of infection,has spacer in, hx. anemia related to intermittent bleeding from stoma, has past hx., uti , low platelets septicemia. CHRONIC KIDNEY DISEASE. History of Any Multi-Drug Resistant Organisms: MRSA Date of last positivie culture/infection: 04/25/16 MDRO Source:: Blood & Right Hip Past Surgical History: Appendectomy, Bowel Resection, Cholecystectomy, Hernia Repair, Hysterectomy, Tubal Ligation Additional Past Surgical History / Comment(s): ileostomy 2009 WITH 3-4 RE- SUTURING EPISODES RELATED TO BLEEDING, ileoscopy w/argon gas coagulation of stoma, 10-22-16 revison rt toal hip arthroplasty Past Anesthesia/Blood Transfusion Reactions: No Reported Reaction Past Psychological History: Anxiety Smoking Status: Never smoker Past Alcohol Use History: None Reported Past Drug Use History: None Reported - Past Family History Mother Family Medical History: CVA/TIA, Diabetes Mellitus Additional Family Medical History / Comment(s): Mother at age 88 from CVA. Sister(s) Additional Family Medical History / Comment(s): Patient has 3 sisters with no major medical problems. Patient does not have any brothers. Patient has 2 sons with no major medical problems. Father Family Medical History: Cancer Additional Family Medical History / Comment(s): . General Exam Limitations: no limitations General appearance: alert, in no apparent distress Head exam: Present: atraumatic, normocephalic Eye exam: Present: normal appearance, PERRL ENT exam: Present: mucous membranes dry Neck exam: Present: normal inspection. Absent: tenderness, meningismus Respiratory exam: Present: normal lung sounds bilaterally. Absent: respiratory distress, wheezes Cardiovascular Exam: Present: normal rhythm, tachycardia GI/Abdominal exam: Present: soft. Absent: distended, tenderness, guarding, jonas ound Extremities exam: Present: normal inspection, normal capillary refill. Absent: pedal edema Neurological exam: Present: alert, oriented X3, CN II-XII intact. Absent: motor sensory deficit Psychiatric exam: Present: normal affect, normal mood Skin exam: Present: warm, dry, intact. Absent: cyanosis, diaphoretic Course Vital Signs 06/06/20 06/06/20 13:49 17:04 Temperature 98.4 F Pulse Rate 122 H 100 Respiratory 20 18 Rate Blood Pressure 124/95 144/68 O2 Sat by Pulse 94 L 94 L Oximetry EKG Findings - EKG Comments: EKG Findings:: EKG: Sinus tachycardia, left atrial enlargement, rate less than axis, left ventricular hypertrophy, rate of 112, MA interval 136, QRS duration 88, QTC 439, no ST segment elevation. Medical Decision Making - Medical Decision Making 64-year-old female with dizziness, lightheadedness, generalized weakness. Recent UTI. Patient has current UTI with greater than 182 white cells in the urine. She does have a CBC which shows no leukocytosis, stable hemoglobin. Chest x-rays negative for focal pneumonia or acute findings. Coronavirus testing is negative. She has stable BUN and creatinine. She has a mild elevated troponin with no active chest pain. Likely secondary to renal insufficiency. I did start this patient on antibiotics including ceftriaxone and vancomycin initially previous staph aureus urinary tract infection. I discussed case with Dr. Kothari who will admit. Infectious disease will be placed on consult. - Lab Data Result diagrams: 06/06/20 15:14 06/06/20 15:14 Lab Results 06/06/20 06/06/20 06/06/20 Range/Units 15:14 15:14 15:14 WBC 8.6 (3.8-10.6) k/uL RBC 3.72 L (3.80-5.40) m/uL Hgb 12.2 D (11.4-16.0) gm/dL Hct 37.0 (34.0-46.0) % MCV 99.2 (80.0-100.0) fL MCH 32.7 (25.0-35.0) pg MCHC 32.9 (31.0-37.0) g/dL RDW 17.4 H (11.5-15.5) % Plt Count 100 L D (150-450) k/uL MPV 7.7 Neutrophils % 91 % Lymphocytes % 5 % Monocytes % 3 % Eosinophils % 0 % Basophils % 0 % Neutrophils # 7.8 H (1.3-7.7) k/uL Lymphocytes # 0.4 L (1.0-4.8) k/uL Monocytes # 0.3 (0-1.0) k/uL Eosinophils # 0.0 (0-0.7) k/uL Basophils # 0.0 (0-0.2) k/uL Poikilocytosis Slight Anisocytosis Slight Macrocytosis Slight PT 13.4 H (9.0-12.0) sec INR 1.3 H (<1.2) APTT 23.5 (22.0-30.0) sec Sodium (137-145) mmol/L Potassium (3.5-5.1) mmol/L Chloride (98-107) mmol/L Carbon Dioxide (22-30) mmol/L Anion Gap mmol/L BUN (7-17) mg/dL Creatinine (0.52-1.04) mg/dL Est GFR (CKD-EPI)AfAm (>60 ml/min/1.73 sqM) Est GFR (CKD-EPI)NonAf (>60 ml/min/1.73 sqM) Glucose (74-99) mg/dL Plasma Lactic Acid Catrachito (0.7-2.0) mmol/L Calcium (8.4-10.2) mg/dL Magnesium (1.6-2.3) mg/dL Total Bilirubin (0.2-1.3) mg/dL AST (14-36) U/L ALT (4-34) U/L Alkaline Phosphatase (38-126) U/L Troponin I (0.000-0.034) ng/mL Total Protein (6.3-8.2) g/dL Albumin (3.5-5.0) g/dL Urine Color Yellow Urine Appearance Cloudy H (Clear) Urine pH 5.5 (5.0-8.0) Ur Specific [place] 1.017 (1.001-1.035) Urine Protein 2+ H (Negative) Urine Glucose (UA) Negative (Negative) Urine Ketones Negative (Negative) Urine Blood Small H (Negative) Urine Nitrite Negative (Negative) Urine Bilirubin Negative (Negative) Urine Urobilinogen <2.0 (<2.0) mg/dL Ur Leukocyte Esterase Large H (Negative) Urine RBC 4 (0-5) /hpf Urine WBC >182 H (0-5) /hpf Urine WBC Clumps Moderate H (None) /hpf Ur Squamous Epith Cells 3 (0-4) /hpf Urine Mucus Rare H (None) /hpf Coronavirus (PCR) (Not Detectd) 06/06/20 06/06/20 06/06/20 Range/Units 15:14 15:14 15:14 WBC (3.8-10.6) k/uL RBC (3.80-5.40) m/uL Hgb (11.4-16.0) gm/dL Hct (34.0-46.0) % MCV (80.0-100.0) fL MCH (25.0-35.0) pg MCHC (31.0-37.0) g/dL RDW (11.5-15.5) % Plt Count (150-450) k/uL MPV Neutrophils % % Lymphocytes % % Monocytes % % Eosinophils % % Basophils % % Neutrophils # (1.3-7.7) k/uL Lymphocytes # (1.0-4.8) k/uL Monocytes # (0-1.0) k/uL Eosinophils # (0-0.7) k/uL Basophils # (0-0.2) k/uL Poikilocytosis Anisocytosis Macrocytosis PT (9.0-12.0) sec INR (<1.2) APTT (22.0-30.0) sec Sodium 135 L (137-145) mmol/L Potassium 4.3 (3.5-5.1) mmol/L Chloride 94 L (98-107) mmol/L Carbon Dioxide 31 H (22-30) mmol/L Anion Gap 10 mmol/L BUN 57 H (7-17) mg/dL Creatinine 1.79 H (0.52-1.04) mg/dL Est GFR (CKD-EPI)AfAm 35 (>60 ml/min/1.73 sqM) Est GFR (CKD-EPI)NonAf 30 (>60 ml/min/1.73 sqM) Glucose 223 H (74-99) mg/dL Plasma Lactic Acid Catrachito 3.5 H* (0.7-2.0) mmol/L Calcium 9.8 (8.4-10.2) mg/dL Magnesium 1.3 L (1.6-2.3) mg/dL Total Bilirubin 1.6 H (0.2-1.3) mg/dL AST 33 (14-36) U/L ALT 29 (4-34) U/L Alkaline Phosphatase 51 (38-126) U/L Troponin I 0.039 H* (0.000-0.034) ng/mL Total Protein 7.1 (6.3-8.2) g/dL Albumin 4.1 (3.5-5.0) g/dL Urine Color Urine Appearance (Clear) Urine pH (5.0-8.0) Ur Specific [place] (1.001-1.035) Urine Protein (Negative) Urine Glucose (UA) (Negative) Urine Ketones (Negative) Urine Blood (Negative) Urine Nitrite (Negative) Urine Bilirubin (Negative) Urine Urobilinogen (<2.0) mg/dL Ur Leukocyte Esterase (Negative) Urine RBC (0-5) /hpf Urine WBC (0-5) /hpf Urine WBC Clumps (None) /hpf Ur Squamous Epith Cells (0-4) /hpf Urine Mucus (None) /hpf Coronavirus (PCR) (Not Detectd) 06/06/ Range/Units 15:14 WBC (3.8-10.6) k/uL RBC (3.80-5.40) m/uL Hgb (11.4-16.0) gm/dL Hct (34.0-46.0) % MCV (80.0-100.0) fL MCH (25.0-35.0) pg MCHC (31.0-37.0) g/dL RDW (11.5-15.5) % Plt Count (150-450) k/uL MPV Neutrophils % % Lymphocytes % % Monocytes % % Eosinophils % % Basophils % % Neutrophils # (1.3-7.7) k/uL Lymphocytes # (1.0-4.8) k/uL Monocytes # (0-1.0) k/uL Eosinophils # (0-0.7) k/uL Basophils # (0-0.2) k/uL Poikilocytosis Anisocytosis Macrocytosis PT (9.0-12.0) sec INR (<1.2) APTT (22.0-30.0) sec Sodium (137-145) mmol/L Potassium (3.5-5.1) mmol/L Chloride (98-107) mmol/L Carbon Dioxide (22-30) mmol/L Anion Gap mmol/L BUN (7-17) mg/dL Creatinine (0.52-1.04) mg/dL Est GFR (CKD-EPI)AfAm (>60 ml/min/1.73 sqM) Est GFR (CKD-EPI)NonAf (>60 ml/min/1.73 sqM) Glucose (74-99) mg/dL Plasma Lactic Acid [place] (0.7-2.0) mmol/L Calcium (8.4-10.2) mg/dL Magnesium (1.6-2.3) mg/dL Total Bilirubin (0.2-1.3) mg/dL AST (14-36) U/L ALT (4-34) U/L Alkaline Phosphatase (38-126) U/L Troponin I (0.000-0.034) ng/mL Total Protein (6.3-8.2) g/dL Albumin (3.5-5.0) g/dL Urine Color Urine Appearance (Clear) Urine pH (5.0-8.0) Ur Specific [place] (1.001-1.035) Urine Protein (Negative) Urine Glucose (UA) (Negative) Urine Ketones (Negative) Urine Blood (Negative) Urine Nitrite (Negative) Urine Bilirubin (Negative) Urine Urobilinogen (<2.0) mg/dL Ur Leukocyte Esterase (Negative) Urine RBC (0-5) /hpf Urine WBC (0-5) /hpf Urine WBC Clumps (None) /hpf Ur Squamous Epith Cells (0-4) /hpf Urine Mucus (None) /hpf Coronavirus (PCR) Not Detected (Not Detectd) Disposition Clinical Impression: Dehydration, UTI (urinary tract infection) Disposition: ADMITTED IP TO THIS HOSP Condition: Stable Is patient prescribed a controlled substance at d/c from ED?: No Referrals: Antonio Kothari MD [Primary Care Provider] - 1-2 days Decision to Admit Reason: Admit from EC Decision Date: 06/06/20 Decision Time: 17:10
[2020-06-06 15:31] LABS: Albumin 4.1 g/dL (3.5-5.0); Calcium 9.8 mg/dL (8.4-10.2); INR 1.3 (<1.2); Magnesium 1.3 mg/dL (1.6-2.3); Partial Thromboplastin Time 23.5 sec (22.0-30.0); Potassium 4.3 mmol/L (3.5-5.1); Prothrombin Time 13.4 sec (9.0-12.0); Total Bilirubin 1.6 mg/dL (0.2-1.3); Total Protein 7.1 g/dL (6.3-8.2)
[2020-06-06 15:46] LABS: Anisocytosis Slight; Basophils % (A) 0 %; Eosinophils % (A) 0 %; Lymphocytes # (A) 0.4 k/uL (1.0-4.8); Lymphocytes % (A) 5 %; MCH 32.7 pg (25.0-35.0); MCHC 32.9 g/dL (31.0-37.0); MCV 99.2 fL (80.0-100.0); Macrocytosis Slight; Mean Platelet Volume 7.7; Monocytes # (A) 0.3 k/uL (0-1.0); Monocytes % (A) 3 %; Neutrophils # (A) 7.8 k/uL (1.3-7.7); Neutrophils % (A) 91 %; Poikilocytosis Slight; RBC 3.72 m/uL (3.80-5.40); RDW 17.4 % (11.5-15.5); WBC 8.6 k/uL (3.8-10.6)
[2020-06-06 15:50] LABS: HGB 12.2 gm/dL (11.4-16.0); Platelet Count 100 k/uL (150-450)
[2020-06-06] MEDS ORDERED: SODIUM CHLORIDE 0.9% 500 ML 500 ML IV ONE (15:56)
[2020-06-06] MEDS ORDERED: VANCOMYCIN IV PER PHARMACY 1 EACH MISC MISCELLANE PRN (15:56)
[2020-06-06] MEDS ORDERED: cefTRIAXone IN SWFI 1,000 MG/10 ML SYRINGE IVP STA (15:57)
--- NOTE | 2020-06-06 16:28 | XR ---
EXAMINATION TYPE: XR chest 2V DATE OF EXAM: 06/06/2020 COMPARISON: Chest x-ray April 25, 2020. HISTORY: Weakness and dizziness. TECHNIQUE: Frontal and lateral views of the chest are obtained. FINDINGS: There is improved inspiration on current study. There is background chronic parenchymal c hanges without suspicious new focal airspace opacity, pleural effusion, or pneumothorax seen bilatera lly. Persistent cardiomegaly. The osseous structures are demineralized. Exaggerated thoracic kyphos is with compression type fractures mid to lower thoracic spine noted on lateral view. Cholecystectomy clips noted on lateral view. Old right posterior lateral mid rib fractures again seen. IMPRESSION: Chronic changes and cardiomegaly without new suspicious acute pulmonary process.
[2020-06-06] MEDS ORDERED: VANCOMYCIN 1,500 MG in SODIUM CHLORIDE 0.9% 250 ML IVPB ONE (16:30)
[2020-06-06] MEDS ORDERED: ACETAMINOPHEN TAB 325 MG TAB PO PRN (17:10)
[2020-06-06] MEDS ORDERED: NALOXONE 0.4 MG/ML 1 ML VIAL IV PRN (17:10)
[2020-06-06] MEDS: SODIUM CHLORIDE 0.9% 1,000 ML IV SCH (17:16)
[2020-06-06] MEDS ORDERED: PANTOPRAZOLE 40 MG TABLET PO PRN (23:30)
[2020-06-07] MEDS: SODIUM CHLORIDE 0.9% 1,000 ML IV SCH ×4 (01:04→19:40)
[2020-06-07] MEDS: CALCIUM CARBONATE 500 MG CHEWABLE PO SCH ×2 (06:00→19:23)
[2020-06-07 07:17] LABS: Glucose,Whole Blood 105 mg/dL (75-99)
[2020-06-07] MEDS: SODIUM BICARBONATE TAB 650 MG TAB PO SCH ×3 (08:00→20:27)
[2020-06-07] MEDS: ATORVASTATIN 20 MG TAB PO SCH (08:00)
[2020-06-07] MEDS: predniSONE 20 MG TAB PO SCH (08:00)
[2020-06-07] MEDS: allopurinoL 100 MG TAB PO SCH (08:00)
[2020-06-07] MEDS: LINAGLIPTIN 5 MG TABLET PO SCH (08:01)
[2020-06-07] MEDS: FERROUS SULFATE 325 MG TAB PO SCH (08:01)
[2020-06-07] MEDS: CYANOCOBALAMIN 500 MCG TAB PO SCH (08:01)
[2020-06-07] MEDS: ALPRAZolam 1 MG TAB PO SCH ×2 (08:02→21:52)
[2020-06-07] MEDS: CHOLECALCIFEROL 1,000 UNIT TAB PO SCH (08:02)
[2020-06-07] MEDS: HEPARIN SODIUM,PORCINE 5,000 UNIT/ML 1 ML VIAL SQ SCH ×2 (08:02→19:46)
[2020-06-07] MEDS ORDERED: NON FORMULARY DRUG (Magnesium Oxide 250 MG Tab) PO SCH (09:00)
[2020-06-07] MEDS ORDERED: NON FORMULARY DRUG (Folic Acid [Folic Acid] 0.4 MG Tablet) PO SCH (09:00)
[2020-06-07 09:12] LABS: Anisocytosis Slight; Basophils % (A) 0 %; Eosinophils % (A) 0 %; HCT 29.2 % (34.0-46.0); Lymphocytes # (A) 0.7 k/uL (1.0-4.8); Lymphocytes % (A) 12 %; MCHC 32.9 g/dL (31.0-37.0); MCV 100.1 fL (80.0-100.0); Macrocytosis Slight; Mean Platelet Volume 7.8; Monocytes # (A) 0.3 k/uL (0-1.0); Monocytes % (A) 5 %; Neutrophils # (A) 4.6 k/uL (1.3-7.7); Neutrophils % (A) 81 %; Poikilocytosis Slight; RBC 2.92 m/uL (3.80-5.40); RDW 17.6 % (11.5-15.5); WBC 5.7 k/uL (3.8-10.6)
[2020-06-07 09:29] LABS: HGB 9.6 gm/dL (11.4-16.0)
[2020-06-07 10:24] LABS: Platelet Count 82 k/uL (150-450); Polychromasia Present
[2020-06-07 11:35] LABS: Glucose,Whole Blood 163 mg/dL (75-99)
[2020-06-07] MEDS ORDERED: VANCOMYCIN 1,250 MG in SODIUM CHLORIDE 0.9% 250 ML IVPB SCH (12:00)
[2020-06-07 13:56] LABS: African American GFR (CKD) 50.9 (60.0-200.0); Albumin 3.5 g/dL (3.80-4.90); Albumin/Globulin Ratio 1.94 (1.60-3.17); BUN/Creat Ratio 36.15 Ratio (12.00-20.00); Calcium 8.7 mg/dL (8.7-10.3); Globulin 1.8 g/dL (1.6-3.3); Non-African American GFR(CKD) 43.9 (60.0-200.0); Potassium 3.7 mmol/L (3.5-5.5); Total Bilirubin 0.7 mg/dL (0.3-1.2); Total Protein 5.3 g/dL (6.2-8.2)
--- NOTE | 2020-06-07 15:12 | P.CONS ---
History of Present Illness - Reason for Consult Consult date: 06/07/20 - History of Present Illness HISTORY OF PRESENT ILLNESS This is a 64-year-old female with past medical history significant for Crohn's disease status post ileostomy, diabetes mellitus type 2, hepatitis C liver disease, osteoarthritis, kidney stones, chronic iron deficiency anemia. She has history of amputation of the left third toe secondary to gangrene and underlying osteomyelitis. Patient is known to ID service as she was seen in February of this year for MSSA bacteremia. Patient gives history that she has had ongoing problems with vertigo and has had follow up with ENT as an outpatient. She was recently seen by Dr. Sweeney and urinalysis was obtained, patient was placed on doxycycline but was only taking 1 tablet per day versus twice daily. She did this for 5 days before her realized that she was supposed to be taking it twice daily. She denies dysuria. She denies having any cough, shortness of breath, chest pain, fever or chills. No nausea, vomiting, diarrhea. Patient has been afebrile, WBC 5.7, hemoglobin 8.6, platelet count 82. Creatinine 1.3. Urine culture in progress. REVIEW OF SYSTEMS Constitutional: No fever, no chills, no night sweats. No weakness, fatigue or lethargy. No daytime sleepiness. EENT: No headache. No nasal drainage or congestion. No sore throat. Lungs: No shortness of breath, cough, no sputum production. No wheezing. Cardiovascular: No chest pain, no lower extremity edema. Complains of vertigo. No syncopal episodes. Abdominal: No abdominal pain. No nausea, vomiting. No diarrhea. No constipation. Genitourinary: No dysuria, increased frequency, urgency. No urinary retention. Musculoskeletal: No myalgias. Reported mild generalized muscle weakness, no gait dysfunction, no frequent falls. No back pain. No neck pain. Integumentary: No wounds, no lesions. No rash or pruritus. Neurologic: No aphasia. No facial droop. No change in mentation. PHYSICAL EXAMINATION Gen: This is a 64-year-old female. Patient is resting in bed and appears to be in no acute distress. HEENT: Head is atraumatic, normocephalic. Pupils equal, round. Sclerae is anicteric. NECK: Supple. No JVD. No lymphadenopathy. No thyromegaly. LUNGS: Clear to auscultation. No wheezes or rhonchi. No intercostal retractions. HEART: Regular rate and rhythm. Systolic murmur. ABDOMEN: Soft. Bowel sounds are present. No masses. No tenderness. EXTREMITIES: No pedal edema. No calf tenderness. NEUROLOGICAL: Patient is awake, alert and oriented x3. Cranial nerves 2 through 12 are grossly intact. ASSESSMENT Dizziness Acute urinary tract infection, failed outpatient treatment PLAN Obtain culture report from Dr. Sweeney's office Continue vancomycin Further recommendations based upon patient's clinical course Thank you kindly for this consultation. The above dictated assessment and findings were discussed with Dr. Blanc. The impression and plan of care have been directed as dictated. Glenis Hernandez nurse practitioner acting as scribe for Dr. Blanc. Past Medical History Past Medical History: Blood Disorder, Diabetes Mellitus, GERD/Reflux, Hyperlipidemia, Hypertension, Liver Disease, Osteoarthritis (OA), Renal Disease Additional Past Medical History / Comment(s): crohns, hx. hep c, past hx. sepsis & ards 2007, has ileostomy, hx. kidney stones, hx. of infection,has s pacer in, hx. anemia related to intermittent bleeding from stoma, has past hx., uti , low platelets septicemia. CHRONIC KIDNEY DISEASE. History of Any Multi-Drug Resistant Organisms: MRSA Year Discovered:: 04/25/16 MDRO Source:: Blood & Right Hip Past Surgical History: Appendectomy, Bowel Resection, Cholecystectomy, Hernia Repair, Hysterectomy, Tubal Ligation Additional Past Surgical History / Comment(s): ileostomy 2009 WITH 3-4 RE- SUTURING EPISODES RELATED TO BLEEDING, ileoscopy w/argon gas coagulation of stoma, 10-22-16 revison rt toal hip arthroplasty Past Anesthesia/Blood Transfusion Reactions: No Reported Reaction Past Psychological History: Anxiety Additional Psychological History / Comment(s): pt normally lives with her spouse and 1 pet dog in a single level home that has 3 steps in which to enter. but went to [facility] after [facility] Smoking Status: Never smoker Past Alcohol Use History: None Reported Additional Past Alcohol Use History / Comment(s): started 1974, quit smoking 2007, 1ppd Past Drug Use History: None Reported - Past Family History Mother Family Medical History: CVA/TIA, Diabetes Mellitus Additional Family Medical History / Comment(s): Mother at age 88 from CVA. Sister(s) Additional Family Medical History / Comment(s): Patient has 3 sisters with no major medical problems. Patient does not have any brothers. Patient has 2 sons with no major medical problems. Father Family Medical History: Cancer Additional Family Medical History / Comment(s): . Medications and Allergies Home Medications Medication Instructions Recorded Confirmed Type Sertraline HCl [Zoloft] 100 mg PO HS 07/26/17 06/06/20 History Ferrous Sulfate [Iron (65 MG 325 mg PO DAILY 06/19/19 06/06/20 History Elemental)] Magnesium Oxide [Mag-Ox] 250 mg PO DAILY 06/19/19 06/06/20 History Cholecalciferol (Vitamin D3) 2,000 unit PO DAILY #30 capsule 06/29/19 06/06/20 Rx [Vitamin D3] predniSONE [Deltasone] 20 mg PO DAILY #30 tab 06/30/19 06/06/20 Rx Rosuvastatin [Crestor] 10 mg PO DAILY 01/26/20 06/06/20 History allopurinoL [Zyloprim] 100 mg PO DAILY 01/26/20 06/06/20 History sitaGLIPtin PHOSPHATE [Januvia] 50 mg PO DAILY 01/26/20 06/06/20 History amLODIPine [Norvasc] 2.5 mg PO DAILY #30 tab 03/07/20 06/06/20 Rx Calcium Carbonate [Calcium] 600 mg PO DAILY 04/19/20 06/06/20 History Cyanocobalamin (Vitamin B-12) 500 mcg PO DAILY 04/19/20 06/06/20 History [Vitamin B-12] Pantoprazole [Protonix] 40 mg PO BID PRN 04/19/20 06/06/20 History ALPRAZolam [Xanax] 1 mg PO BID 06/06/20 06/06/20 History Folic Acid 0.4 mg PO DAILY 06/06/20 06/06/20 History Mirtazapine [Remeron] 15 mg PO HS 06/06/20 06/06/20 History Sodium Bicarbonate Tab 650 mg PO TID 06/06/20 06/06/20 History Allergies Allergy/AdvReac Type Severity Reaction Status Date / Time adhesive tape Allergy Severe Rash/Hives/Skin Verified 06/06/20 19:06 Peeling levofloxacin [From Levaquin] Allergy Severe Swelling/ra Verified 06/06/20 19:06 sh Quinolones Allergy Severe Anaphylaxis Verified 06/06/20 19:06 /Swelling enoxaparin [From Lovenox] Allergy GI bleed Verified 06/06/20 19:06 NSAIDS (Non-Steroidal AdvReac Severe GI Verified 06/06/20 19:06 Anti-Inflamma Bleeding/Liver Damage warfarin [From Coumadin] AdvReac Severe Abdominal Verified 06/06/20 19:06 Pain Physical Exam Vitals: Vital Signs Temp Pulse Pulse Resp BP BP Pulse Ox 06/07/20 07:19 98.0 F 79 18 123/79 94 L 06/07/20 04:20 98.0 F 72 16 135/82 97 06/06/20 20:00 18 06/06/20 19:01 98.3 F 96 18 145/81 92 L 06/06/20 18:47 98.1 F 87 18 138/67 97 06/06/20 18:35 98.3 F 96 16 145/81 92 L 06/06/20 17:04 100 18 144/68 94 L 06/06/20 13:49 98.4 F 122 H 20 124/95 94 L Intake and Output 06/06/20 06/07/20 06/07/20 22:59 06:59 14:59 Other: Voiding Method Toilet # Voids 1 # Bowel Movements 1 Weight 72.575 kg Results CBC & Chem 7: 06/07/20 07:03 06/07/20 07:03 Labs: Abnormal Lab Results - Last 24 Hours (Table) 06/06/20 06/06/20 06/06/20 Range/Units 15:14 15:14 15:14 RBC 3.72 L (3.80-5.40) m/uL Hgb (11.4-16.0) gm/dL Hct (34.0-46.0) % MCV (80.0-100.0) fL RDW 17.4 H (11.5-15.5) % Plt Count 100 L D (150-450) k/uL Neutrophils # 7.8 H (1.3-7.7) k/uL Lymphocytes # 0.4 L (1.0-4.8) k/uL PT 13.4 H (9.0-12.0) sec INR 1.3 H (<1.2) Sodium (137-145) mmol/L Chloride (98-107) mmol/L Carbon Dioxide (22-30) mmol/L BUN (7-17) mg/dL Creatinine (0.52-1.04) mg/dL Glucose (74-99) mg/dL POC Glucose (mg/dL) (75-99) mg/dL Plasma Lactic Acid Catrachito (0.7-2.0) mmol/L Magnesium (1.6-2.3) mg/dL Total Bilirubin (0.2-1.3) mg/dL Troponin I (0.000-0.034) ng/mL Urine Appearance Cloudy H (Clear) Urine Protein 2+ H (Negative) Urine Blood Small H (Negative) Ur Leukocyte Esterase Large H (Negative) Urine WBC >182 H (0-5) /hpf Urine WBC Clumps Moderate H (None) /hpf Urine Mucus Rare H (None) /hpf 06/06/20 06/06/20 06/06/20 Range/Units 15:14 15:14 15:14 RBC (3.80-5.40) m/uL Hgb (11.4-16.0) gm/dL Hct (34.0-46.0) % MCV (80.0-100.0) fL RDW (11.5-15.5) % Plt Count (150-450) k/uL Neutrophils # (1.3-7.7) k/uL Lymphocytes # (1.0-4.8) k/uL PT (9.0-12.0) sec INR (<1.2) Sodium 135 L (137-145) mmol/L Chloride 94 L (98-107) mmol/L Carbon Dioxide 31 H (22-30) mmol/L BUN 57 H (7-17) mg/dL Creatinine 1.79 H (0.52-1.04) mg/dL Glucose 223 H (74-99) mg/dL POC Glucose (mg/dL) (75-99) mg/dL Plasma Lactic Acid Catrachito 3.5 H* (0.7-2.0) mmol/L Magnesium 1.3 L (1.6-2.3) mg/dL Total Bilirubin 1.6 H (0.2-1.3) mg/dL Troponin I 0.039 H* (0.000-0.034) ng/mL Urine Appearance (Clear) Urine Protein (Negative) Urine Blood (Negative) Ur Leukocyte Esterase (Negative) Urine WBC (0-5) /hpf Urine WBC Clumps (None) /hpf Urine Mucus (None) /hpf 06/06/20 06/07/20 06/07/20 Range/Units 18:08 07:03 07:13 RBC 2.92 L (3.80-5.40) m/uL Hgb 9.6 L D (11.4-16.0) gm/dL Hct 29.2 L (34.0-46.0) % MCV 100.1 H (80.0-100.0) fL RDW 17.6 H (11.5-15.5) % Plt Count 82 L (150-450) k/uL Neutrophils # (1.3-7.7) k/uL Lymphocytes # 0.7 L (1.0-4.8) k/uL PT (9.0-12.0) sec INR (<1.2) Sodium (137-145) mmol/L Chloride (98-107) mmol/L Carbon Dioxide (22-30) mmol/L BUN (7-17) mg/dL Creatinine (0.52-1.04) mg/dL Glucose (74-99) mg/dL POC Glucose (mg/dL) 105 H (75-99) mg/dL Plasma Lactic Acid Catrachito (0.7-2.0) mmol/L Magnesium (1.6-2.3) mg/dL Total Bilirubin (0.2-1.3) mg/dL Troponin I 0.035 H* (0.000-0.034) ng/mL Urine Appearance (Clear) Urine Protein (Negative) Urine Blood (Negative) Ur Leukocyte Esterase (Negative) Urine WBC (0-5) /hpf Urine WBC Clumps (None) /hpf Urine Mucus (None) /hpf 06/07/20 Range/Units 11:34 RBC (3.80-5.40) m/uL Hgb (11.4-16.0) gm/dL Hct (34.0-46.0) % MCV (80.0-100.0) fL RDW (11.5-15.5) % Plt Count (150-450) k/uL Neutrophils # (1.3-7.7) k/uL Lymphocytes # (1.0-4.8) k/uL PT (9.0-12.0) sec INR (<1.2) Sodium (137-145) mmol/L Chloride (98-107) mmol/L Carbon Dioxide (22-30) mmol/L BUN (7-17) mg/dL Creatinine (0.52-1.04) mg/dL Glucose (74-99) mg/dL POC Glucose (mg/dL) 163 H (75-99) mg/dL Plasma Lactic Acid Catrachito (0.7-2.0) mmol/L Magnesium (1.6-2.3) mg/dL Total Bilirubin (0.2-1.3) mg/dL Troponin I (0.000-0.034) ng/mL Urine Appearance (Clear) Urine Protein (Negative) Urine Blood (Negative) Ur Leukocyte Esterase (Negative) Urine WBC (0-5) /hpf Urine WBC Clumps (None) /hpf Urine Mucus (None) /hpf Microbiology - Last 24 Hours (Table) 06/06/20 15:14 Urine Culture - Preliminary Urine,Voided
[2020-06-07 16:32] LABS: Glucose,Whole Blood 292 mg/dL (75-99)
[2020-06-07 20:30] LABS: Glucose,Whole Blood 125 mg/dL (75-99)
[2020-06-07] MEDS: MIRTAZAPINE 15 MG TAB PO SCH (21:52)
[2020-06-07] MEDS: SERTRALINE 100 MG TAB PO SCH (21:52)
--- NOTE | 2020-06-08 02:12 | P.HPIM ---
History of Present Illness H&P Date: 06/07/20 Chief Complaint: dizziness This is a 64-year-old female with past medical history of Crohn's disease status post ileostomy, type 2 diabetes, hepatitis C liver disease, osteoarthritis history of kidney stones, chronic iron deficiency anemia, with an issue with stomal bleed on and off. She was recently hospitalized in February which time she underwent an amputation of the left third toe due to gangrene and underlying osteomyelitis by Dr. Briones. She was maintained on IV antibiotics with Kefzol for a 6 week course and was transitomed into oral Keflex and she was admitted to the ICU about a month ago thought due to gram negative pneumonia and she was released home, has been having issues with diziness on and off and she she was recently seen by nephrology due to GUANACO on CKD 3a and she was taken off her lasiix completely and she was supposed to be drinking more water, which she has been doing wll with that, she was recently treated for MRSA UTI by Dr Prasanth Pedro with doxycycline 100 mg orally bid for 1 week but unfortunately she was taken it once a day instead of twice a day, when she realized that she decided to come to the ER and she was found to have MRSA UTI and she was started on Vanco and Rocephin, after obtaining urine cultures and blood cultures and she was admitted to the hospital for evaluation and treatment and ID consult was obtained from . Review of Systems Constitutional: Reports anorexia, Reports chronic pain, Reports fatigue, Reports weakness Eyes: denies blurred vision, denies bulging eye, denies decreased vision Ears, nose, mouth and throat: Denies epistaxis, Denies neck lump, Denies sore throat Cardiovascular: Reports lightheadedness, Denies chest pain, Denies decreased exercise tolerance, Denies dyspnea on exertion, Denies orthopnea, Denies rapid heart beat, Denies shortness of breath, Denies syncope Respiratory: Denies congestion, Denies cough with sputum, Denies dyspnea, Denies home oxygen, Denies sleep apnea, Denies snoring, Denies wheezing Gastrointestinal: Reports diarrhea, Reports loss of appetite, Denies abdominal pain, Denies belching, Denies bloating, Denies BRBPR, Denies change in bowel habits, Denies excessive gas, Denies heartburn, Denies hematemesis, Denies melena, Denies nausea, Denies vomiting Genitourinary: Denies dysuria, Denies nocturia Menstruation: Reports postmenopausal Musculoskeletal: Reports atrophy, Reports gait dysfunction, Reports morning stiffness Musculoskeletal: absent: ankle pain, ankle stiffness, ankle swelling, elbow pain, elbow stiffness, elbow swelling, foot pain, foot stiffness, foot swelling, hand pain, hand stiffness, hand swelling, hip pain, hip stiffness, hip swelling, knee pain, knee stiffness, knee swelling, shoulder pain, shoulder stiffness, shoulder swelling, wrist pain, wrist stiffness, wrist swelling Integumentary: Denies pruritus, Denies rash Neurological: Denies numbness, Denies weakness Psychiatric: Reports anxiety, Reports depression, Denies sadness/tearfulness, Denies sleep disturbances, Denies suicidal ideation Endocrine: Reports fatigue Past Medical History Past Medical History: Blood Disorder, Diabetes Mellitus, GERD/Reflux, Hy perlipidemia, Hypertension, Liver Disease, Osteoarthritis (OA), Renal Disease Additional Past Medical History / Comment(s): crohns, hx. hep c, past hx. sepsis & ards 2007, has ileostomy, hx. kidney stones, hx. of infection,has spacer in, hx. anemia related to intermittent bleeding from stoma, has past hx., uti , low platelets septicemia. CHRONIC KIDNEY DISEASE. History of Any Multi-Drug Resistant Organisms: MRSA Date of last positivie culture/infection: 04/25/16 MDRO Source:: Blood & Right Hip Past Surgical History: Appendectomy, Bowel Resection, Cholecystectomy, Hernia Repair, Hysterectomy, Tubal Ligation Additional Past Surgical History / Comment(s): ileostomy 2009 WITH 3-4 RE- SUTURING EPISODES RELATED TO BLEEDING, ileoscopy w/argon gas coagulation of stoma, 10-22-16 revison rt toal hip arthroplasty Past Anesthesia/Blood Transfusion Reactions: No Reported Reaction Past Psychological History: Anxiety Additional Psychological History / Comment(s): pt normally lives with her spouse and 1 pet dog in a single level home that has 3 steps in which to enter. but we nt to [facility] after dc/d from [facility] 06[facility]04-17 Smoking Status: Never smoker Past Alcohol Use History: None Reported Additional Past Alcohol Use History / Comment(s): started 1974, quit smoking 2007, 1ppd Past Drug Use History: None Reported - Past Family History Mother Family Medical History: CVA/TIA, Diabetes Mellitus Additional Family Medical History / Comment(s): Mother at age 88 from CVA. Sister(s) Additional Family Medical History / Comment(s): Patient has 3 sisters with no major medical problems. Patient does not have any brothers. Patient has 2 sons with no major medical problems. Father Family Medical History: Cancer Additional Family Medical History / Comment(s): . Medications and Allergies Home Medications Medication Instructions Recorded Confirmed Type Sertraline HCl [Zoloft] 100 mg PO HS 07/26/17 06/06/20 History Ferrous Sulfate [Iron (65 MG 325 mg PO DAILY 06/19/19 06/06/20 History Elemental)] Magnesium Oxide [Mag-Ox] 250 mg PO DAILY 06/19/19 06/06/20 History Cholecalciferol (Vitamin D3) 2,000 unit PO DAILY #30 capsule 06/29/19 06/06/20 Rx [Vitamin D3] predniSONE [Deltasone] 20 mg PO DAILY #30 tab 06/30/19 06/06/20 Rx Rosuvastatin [Crestor] 10 mg PO DAILY 01/26/20 06/06/20 History allopurinoL [Zyloprim] 100 mg PO DAILY 01/26/20 06/06/20 History sitaGLIPtin PHOSPHATE [Januvia] 50 mg PO DAILY 01/26/20 06/06/20 History amLODIPine [Norvasc] 2.5 mg PO DAILY #30 tab 03/07/20 06/06/20 Rx Calcium Carbonate [Calcium] 600 mg PO DAILY 04/19/20 06/06/20 History Cyanocobalamin (Vitamin B-12) 500 mcg PO DAILY 04/19/20 06/06/20 History [Vitamin B-12] Pantoprazole [Protonix] 40 mg PO BID PRN 04/19/20 06/06/20 History ALPRAZolam [Xanax] 1 mg PO BID 06/06/20 06/06/20 History Folic Acid 0.4 mg PO DAILY 06/06/20 06/06/20 History Mirtazapine [Remeron] 15 mg PO HS 06/06/20 06/06/20 History Sodium Bicarbonate Tab 650 mg PO TID 06/06/20 06/06/20 History Allergies Allergy/AdvReac Type Severity Reaction Status Date / Time adhesive tape Allergy Severe Rash/Hives/Skin Verified 06/06/20 19:06 Peeling levofloxacin [From Levaquin] Allergy Severe Swelling/ra Verified 06/06/20 19:06 sh Quinolones Allergy Severe Anaphylaxis Verified 06/06/20 19:06 /Swelling enoxaparin [From Lovenox] Allergy GI bleed Verified 06/06/20 19:06 NSAIDS (Non-Steroidal AdvReac Severe GI Verified 06/06/20 19:06 Anti-Inflamma Bleeding/Liver Damage warfarin [From Coumadin] AdvReac Severe Abdominal Verified 06/06/20 19:06 Pain Physical Exam Vitals: Vital Signs Temp Pulse Pulse Resp BP BP Pulse Ox 06/06/20 20:00 18 06/06/20 19:01 98.3 F 96 18 145/81 92 L 06/06/20 18:47 98.1 F 87 18 138/67 97 06/06/20 18:35 98.3 F 96 16 145/81 92 L 06/06/20 17:04 100 18 144/68 94 L 06/06/20 13:49 98.4 F 122 H 20 124/95 94 L Intake and Output 06/06/20 06/06/20 06/07/20 14:59 22:59 06:59 Other: Voiding Method Toilet Weight 72.575 kg 72.575 kg Physical Examination Gen: This is a 64-year-old female. Patient appears to be comfortable and in no acute distress. HEENT: Head is atraumatic, normocephalic. Pupils equal, round, reactive to light and accommodations , sclera non icteric, mucous membranes of the mouth are somewhat dry. NECK: Supple. No JVD. No lymphadenopathy. No thyromegaly. LUNGS: decreased breath sounds at the bases with few ronchi, no expirtory whe ezes, no intercostal retractions. HEART: First heart sound is depressed, second heart sound is normal, 2/6 systolic ejection murmur at the left sternal border. ABDOMEN: Soft. Bowel sounds are present. No masses. No tenderness. Ostomy is pink, no active bleeding, brown stool in ostomy bag EXTREMITIES: No pedal edema. No calf tenderness. Dorsalis pedis +1 bilaterally. Left thrid toe amputation wound is healed, no drainage, no bleeding. No significant erythema or edema. the Eschar on the right heel is resolved. NEUROLOGICAL: Patient is awake, alert and oriented x3. Cranial nerves 2 through 12 are grossly intact, muscle power 4/5 in bilateral upper and lower extremities bilaterally, deep tendon reflexes were depressed bilaterally with bilateral neuropathic changes in both feet. Results CBC & Chem 7: 06/07/20 07:03 06/07/20 07:03 Labs: Abnormal Lab Results - Last 24 Hours (Table) 06/06/20 06/06/20 06/06/20 Range/Units 15:14 15:14 15:14 RBC 3.72 L (3.80-5.40) m/uL RDW 17.4 H (11.5-15.5) % Plt Count 100 L D (150-450) k/uL Neutrophils # 7.8 H (1.3-7.7) k/uL Lymphocytes # 0.4 L (1.0-4.8) k/uL PT 13.4 H (9.0-12.0) sec INR 1.3 H (<1.2) Sodium (137-145) mmol/L Chloride (98-107) mmol/L Carbon Dioxide (22-30) mmol/L BUN (7-17) mg/dL Creatinine (0.52-1.04) mg/dL Glucose (74-99) mg/dL Plasma Lactic Acid Catrachito (0.7-2.0) mmol/L Magnesium (1.6-2.3) mg/dL Total Bilirubin (0.2-1.3) mg/dL Troponin I (0.000-0.034) ng/mL Urine Appearance Cloudy H (Clear) Urine Protein 2+ H (Negative) Urine Blood Small H (Negative) Ur Leukocyte Esterase Large H (Negative) Urine WBC >182 H (0-5) /hpf Urine WBC Clumps Moderate H (None) /hpf Urine Mucus Rare H (None) /hpf 06/06/20 06/06/20 06/06/20 Range/Units :14 15: 15:14 RBC (3.80-5.40) m/uL RDW (11.5-15.5) % Plt Count (150-450) k/uL Neutrophils # (1.3-7.7) k/uL Lymphocytes # (1.0-4.8) k/uL PT (9.0-12.0) sec INR (<1.2) Sodium 135 L (137-145) mmol/L Chloride 94 L (98-107) mmol/L Carbon Dioxide 31 H (22-30) mmol/L BUN 57 H (7-17) mg/dL Creatinine 1.79 H (0.52-1.04) mg/dL Glucose 223 H (74-99) mg/dL Plasma Lactic Acid Catrachito 3.5 H* (0.7-2.0) mmol/L Magnesium 1.3 L (1.6-2.3) mg/dL Total Bilirubin 1.6 H (0.2-1.3) mg/dL Troponin I 0.039 H* (0.000-0.034) ng/mL Urine Appearance (Clear) Urine Protein (Negative) Urine Blood (Negative) Ur Leukocyte Esterase (Negative) Urine WBC (0-5) /hpf Urine WBC Clumps (None) /hpf Urine Mucus (None) /hpf 06/06/20 Range/Units 18:08 RBC (3.80-5.40) m/uL RDW (11.5-15.5) % Plt Count (150-450) k/uL Neutrophils # (1.3-7.7) k/uL Lymphocytes # (1.0-4.8) k/uL PT (9.0-12.0) sec INR (<1.2) Sodium (137-145) mmol/L Chloride (98-107) mmol/L Carbon Dioxide (22-30) mmol/L BUN (7-17) mg/dL Creatinine (0.52-1.04) mg/dL Glucose (74-99) mg/dL Plasma Lactic Acid Catrachito (0.7-2.0) mmol/L Magnesium (1.6-2.3) mg/dL Total Bilirubin (0.2-1.3) mg/dL Troponin I 0.035 H* (0.000-0.034) ng/mL Urine Appearance (Clear) Urine Protein (Negative) Urine Blood (Negative) Ur Leukocyte Esterase (Negative) Urine WBC (0-5) /hpf Urine WBC Clumps (None) /hpf Urine Mucus (None) /hpf Thrombosis Risk Factor Assmnt - DVT/VTE Prophylaxis DVT/VTE Prophylaxis: Pharmacologic Prophylaxis ordered, Mechanical Prophylaxis ordered - Choose All That Apply Any of the Below Risk Factors Present?: No Other Risk Factors: No Other congenital or acquired thrombophilia - If yes, enter type in comment: No Thrombosis Risk Factor Assessment Level: Very Low Risk Assessment and Plan Assessment: Assessment and plan: 1. Recent MRSA UTI failed outpatient management. we will check UA with C+S and we will check blood cultures and we will continue with IV Vancomycin pharmacy to dose its peak and trough, ID consult . 2. Dizzines. Multifactorial with an element of adrenal insuficiency is hard to rule out. we will continue with IVF but decrease to 50 ml /h and we will continue with Prednisone 20 mg orally daily. 3. History of sepsis, bacteremia secondary to left third toe gangrene with underlying osteomyelitis status post amputation 02/28/2020. Patient completed course of IV antibiotics in the form of Kefzol ad folowed by 10 course of oral Kelfelx. 4. Acute kidney injury on CKD 3 a. we will continue with IVF but we will decrease to 50 ml/h and we will continue to monitor CMP very closely. 5. Chronic anemia of chronic illness, currently stable. Continue iron 325 mg daily. 6. Recent history of stomal bleed. No active bleeding at this time. 7. Chronic kidney disease stage 3a. Avoid nephrotoxic agents.we will continue to monitor CMP. 8. Diabetes mellitus type 2. Continue NovoLog scale before meals and at bedtime and we will continue with Tradjenta 5 mg orally daily. 9. Hepatitis C in remission, stable. 10. Crohn's disease status post ileostomy in 2007 on chronic prednisone 20 mg daily. 11. Generalized anxiety disorder and recurrent depression. Continue Xanax 1 mg twice daily and Zoloft 100 mg at bedtime, Remeron 15 mg at bedtime. 12. Hypertension hypertensive cardiovascular disease. we will hild Amlodipine. 13. Vitamin deficiencies. Continue vitamin D 12, vitamin D, magnesium supplements. 14. Chronic gout. Continue allopurinol 100 mg daily. 15. Hyperlipidemia. Continue Lipitor 20 mg at bedtime. 16. Chronic thrombocytopenia. stable. 17. GI prophylaxis. we will continue with Pepcid 20 mg orally daily. 18. DVT prophylaxis. Knee-high CRISTHIAN hose and Heparin 5000 units SC Q 12 hours. 19. Patient admitted to the hospital for a minimum of 2 night stay. 20. Full code. 21. Discharge plan. Home [facility].
[2020-06-08] MEDS: VANCOMYCIN 1,250 MG in SODIUM CHLORIDE 0.9% 250 ML IVPB SCH ×2 (02:54→19:11)
[2020-06-08 06:53] LABS: Anisocytosis Slight; Basophils % (A) 0 %; Eosinophils # (A) 0.1 k/uL (0-0.7); Eosinophils % (A) 1 %; HCT 33.8 % (34.0-46.0); HGB 11.1 gm/dL (11.4-16.0); Hypochromasia Slight; Lymphocytes # (A) 1.5 k/uL (1.0-4.8); Lymphocytes % (A) 19 %; MCH 33.2 pg (25.0-35.0); MCHC 32.7 g/dL (31.0-37.0); MCV 101.5 fL (80.0-100.0); Macrocytosis Moderate; Mean Platelet Volume 7.4; Monocytes # (A) 0.4 k/uL (0-1.0); Monocytes % (A) 5 %; Neutrophils # (A) 6.2 k/uL (1.3-7.7); Neutrophils % (A) 75 %; Poikilocytosis Slight; RBC 3.33 m/uL (3.80-5.40); RDW 17.8 % (11.5-15.5); WBC 8.3 k/uL (3.8-10.6)
[2020-06-08 07:00] LABS: Platelet Count 98 k/uL (150-450)
[2020-06-08 07:13] LABS: Glucose,Whole Blood 109 mg/dL (75-99)
[2020-06-08] MEDS: SODIUM BICARBONATE TAB 650 MG TAB PO SCH ×3 (08:52→21:35)
[2020-06-08] MEDS: predniSONE 20 MG TAB PO SCH (08:52)
[2020-06-08] MEDS: ALPRAZolam 1 MG TAB PO SCH ×2 (08:53→21:35)
[2020-06-08] MEDS: CALCIUM CARBONATE 500 MG CHEWABLE PO SCH (08:53)
[2020-06-08] MEDS: CHOLECALCIFEROL 1,000 UNIT TAB PO SCH (08:53)
[2020-06-08] MEDS: FERROUS SULFATE 325 MG TAB PO SCH (08:53)
[2020-06-08] MEDS: ATORVASTATIN 20 MG TAB PO SCH (08:53)
[2020-06-08] MEDS: LINAGLIPTIN 5 MG TABLET PO SCH (08:54)
[2020-06-08] MEDS: allopurinoL 100 MG TAB PO SCH (08:54)
[2020-06-08] MEDS: CYANOCOBALAMIN 500 MCG TAB PO SCH (08:54)
[2020-06-08] MEDS: HEPARIN SODIUM,PORCINE 5,000 UNIT/ML 1 ML VIAL SQ SCH ×2 (08:55→21:35)
[2020-06-08] MEDS: SODIUM CHLORIDE 0.9% 1,000 ML IV SCH (08:55)
[2020-06-08 09:59] LABS: African American GFR (CKD) 46.6 (60.0-200.0); Albumin 3.8 g/dL (3.80-4.90); Albumin/Globulin Ratio 1.65 (1.60-3.17); Anion Gap 12.5 mmol/L (4.00-12.00); BUN/Creat Ratio 27.86 Ratio (12.00-20.00); Carbon Dioxide 24.5 mmol/L (21.6-31.8); Globulin 2.3 g/dL (1.6-3.3); Non-African American GFR(CKD) 40.2 (60.0-200.0); Potassium 4.4 mmol/L (3.5-5.5); Total Bilirubin 0.7 mg/dL (0.3-1.2); Total Protein 6.1 g/dL (6.2-8.2)
[2020-06-08 11:06] LABS: Glucose,Whole Blood 81 mg/dL (75-99)
--- NOTE | 2020-06-08 16:30 | P.PN ---
Subjective Progress Note Date: 06/08/20 This is a 64-year-old female with past medical history of Crohn's disease status post ileostomy, type 2 diabetes, hepatitis C liver disease, osteoarthritis history of kidney stones, chronic iron deficiency anemia, with an issue with stomal bleed on and off. She was recently hospitalized in February which time she underwent an amputation of the left third toe due to gangrene and underlying osteomyelitis by Dr. Briones. She was maintained on IV antibiotics with Kefzol for a 6 week course and was transitomed into oral Keflex and she was admitted to the ICU about a month ago thought due to gram negative pneumonia and she was released home, has been having issues with diziness on and off and she she was recently seen by nephrology due to GUANACO on CKD 3a and she was taken off her lasiix completely and she was supposed to be drinking more water, which she has been doing wll with that, she was recently treated for MRSA UTI by Dr Prasanth Pedro with doxycycline 100 mg orally bid for 1 week but unfortunately she was taken it once a day instead of twice a day, when she realized that she decided to come to the ER and she was found to have MRSA UTI and she was started on Vanco and Rocephin, after obtaining urine cultures and blood cultures and she was admitted to the hospital for evaluation and treatment and ID consult was obtained from . 06/08: Patient has been afebrile, heart rate 111, blood pressure 121/72, pulse ox 90 on room air. WBC 8.3, hemoglobin 11.1, platelet count 98. Sodium 147, potassium 4.4, chloride 110, CO2 24, BUN 39 creatinine 1.4. Blood sugars running between 108 and 292. AST 39. Urine culture has been finalized with skin carina. Urinalysis/urine culture report has not been yet obtained from Dr. Sweeney's office. Patient was scheduled as an outpatient for ultrasound of the kidneys which will be ordered for today. Objective - Vital Signs Vital signs: Vital Signs Temp 98.2 F 06/08/20 14:00 Pulse 101 H 06/08/20 14:00 Resp 16 06/08/20 14:00 BP 121/72 06/08/20 08:00 Pulse Ox 81 L 06/08/20 14:00 Intake & Output 06/07/20 06/08/20 06/08/20 18:59 06:59 18:59 Intake Total 200 240 Output Total 600 Balance 200 -360 Intake: Oral 240 Other 200 Output: Stool 600 Other: Voiding Method Toilet # Voids 1 # Bowel Movements 2 - Exam Review of Systems Constitutional: Reports anorexia, Reports chronic pain, Reports fatigue, Reports weakness Eyes: denies blurred vision, denies bulging eye, denies decreased vision Ears, nose, mouth and throat: Denies epistaxis, Denies neck lump, Denies sore throat Cardiovascular: Reports lightheadedness, Denies chest pain, Denies decreased exercise tolerance, Denies dyspnea on exertion, Denies orthopnea, Denies rapid heart beat, Denies shortness of breath, Denies syncope Respiratory: Denies congestion, Denies cough with sputum, Denies dyspnea, Denies home oxygen, Denies sleep apnea, Denies snoring, Denies wheezing Gastrointestinal: Reports diarrhea, Reports loss of appetite, Denies abdominal pain, Denies belching, Denies bloating, Denies BRBPR, Denies change in bowel habits, Denies excessive gas, Denies heartburn, Denies hematemesis, Denies melena, Denies nausea, Denies vomiting Genitourinary: Denies dysuria, Denies nocturia Menstruation: Reports postmenopausal Musculoskeletal: Reports atrophy, Reports gait dysfunction, Reports morning stiffness Musculoskeletal: absent: ankle pain, ankle stiffness, ankle swelling, elbow pain, elbow stiffness, elbow swelling, foot pain, foot stiffness, foot swelling, hand pain, hand stiffness, hand swelling, hip pain, hip stiffness, hip swelling, knee pain, knee stiffness, knee swelling, shoulder pain, shoulder stiffness, shoulder swelling, wrist pain, wrist stiffness, wrist swelling Integumentary: Denies pruritus, Denies rash Neurological: Denies numbness, Denies weakness Psychiatric: Reports anxiety, Reports depression, Denies sadness/tearfulness, Denies sleep disturbances, Denies suicidal ideation Endocrine: Reports fatigue Physical Examination Gen: This is a 64-year-old female. Patient appears to be comfortable and in no acute distress. HEENT: Head is atraumatic, normocephalic. Pupils equal, round, reactive to light and accommodations , sclera non icteric, mucous membranes of the mouth are somewhat dry. NECK: Supple. No JVD. No lymphadenopathy. No thyromegaly. LUNGS: decreased breath sounds at the bases with few ronchi, no expirtory wheezes, no intercostal retractions. HEART: First heart sound is depressed, second heart sound is normal, 2/6 systolic ejection murmur at the left sternal border. ABDOMEN: Soft. Bowel sounds are present. No masses. No tenderness. Ostomy is pink, no active bleeding, brown stool in ostomy bag EXTREMITIES: No pedal edema. No calf tenderness. Dorsalis pedis +1 bilaterally. Left thrid toe amputation wound is healed, no drainage, no bleeding. No significant erythema or edema. the Eschar on the right heel is resolved. NEUROLOGICAL: Patient is awake, alert and oriented x3. Cranial nerves 2 through 12 are grossly intact, muscle power 4/5 in bilateral upper and lower extremities bilaterally, deep tendon reflexes were depressed bilaterally with bilateral neuropathic changes in both feet. - Labs CBC & Chem 7: 06/08/20 05:45 06/08/20 05:45 Labs: Abnormal Lab Results - Last 24 Hours (Table) 06/07/20 06/07/20 06/08/20 Range/Units 16:30 20:29 05:45 RBC 3.33 L (3.80-5.40) m/uL Hgb 11.1 L (11.4-16.0) gm/dL Hct 33.8 L (34.0-46.0) % MCV 101.5 H (80.0-100.0) fL RDW 17.8 H (11.5-15.5) % Plt Count 98 L (150-450) k/uL Sodium (135-145) mmol/L Chloride (96-109) mmol/L Anion Gap (4.00-12.00) mmol/L BUN (9.0-27.0) mg/dL Est GFR (CKD-EPI)AfAm (60.0-200.0) Est GFR (CKD-EPI)NonAf (60.0-200.0) BUN/Creatinine Ratio (12.00-20.00) Ratio POC Glucose (mg/dL) 292 H 125 H (75-99) mg/dL AST (13-35) U/L Total Protein (6.2-8.2) g/dL 06/08/20 06/08/20 Range/Units 05:45 07:09 RBC (3.80-5.40) m/uL Hgb (11.4-16.0) gm/dL Hct (34.0-46.0) % MCV (80.0-100.0) fL RDW (11.5-15.5) % Plt Count (150-450) k/uL Sodium 147 H (135-145) mmol/L Chloride 110 H (96-109) mmol/L Anion Gap 12.50 H (4.00-12.00) mmol/L BUN 39.0 H (9.0-27.0) mg/dL Est GFR (CKD-EPI)AfAm 46.6 L (60.0-200.0) Est GFR (CKD-EPI)NonAf 40.2 L (60.0-200.0) BUN/Creatinine Ratio 27.86 H (12.00-20.00) Ratio POC Glucose (mg/dL) 109 H (75-99) mg/dL AST 39 H (13-35) U/L Total Protein 6.1 L (6.2-8.2) g/dL Microbiology - Last 24 Hours (Table) 06/06/20 15:14 Urine Culture - Final Urine,Voided Assessment and Plan Assessment: Assessment and plan: 1. Recent MRSA UTI failed outpatient management. we will check UA with C+S and we will check blood cultures and we will continue with IV Vancomycin pharmacy to dose its peak and trough, ID consult . 2. Dizzines. Multifactorial with an element of adrenal insuficiency is hard to rule out. we will continue with IVF but decrease to 50 ml /h and we will continue with Prednisone 20 mg orally daily. 3. History of sepsis, bacteremia secondary to left third toe gangrene with underlying osteomyelitis status post amputation 02/28/2020. Patient completed course of IV antibiotics in the form of Kefzol ad folowed by 10 course of oral Kelfelx. 4. Acute kidney injury on CKD 3 a. we will continue with IVF but we will decrease to 50 ml/h and we will continue to monitor CMP very closely. 5. Chronic anemia of chronic illness, currently stable. Continue iron 325 mg daily. 6. Recent history of stomal bleed. No active bleeding at this time. 7. Chronic kidney disease stage 3a. Avoid nephrotoxic agents.we will continue to monitor CMP. 8. Diabetes mellitus type 2. Continue NovoLog scale before meals and at bedtime and we will continue with Tradjenta 5 mg orally daily. 9. Hepatitis C in remission, stable. 10. Crohn's disease status post ileostomy in 2007 on chronic prednisone 20 mg daily. 11. Generalized anxiety disorder and recurrent depression. Continue Xanax 1 mg twice daily and Zoloft 100 mg at bedtime, Remeron 15 mg at bedtime. 12. Hypertension hypertensive cardiovascular disease. we will hild Amlodipine. 13. Vitamin deficiencies. Continue vitamin D 12, vitamin D, magnesium supplements. 14. Chronic gout. Continue allopurinol 100 mg daily. 15. Hyperlipidemia. Continue Lipitor 20 mg at bedtime. 16. Chronic thrombocytopenia. stable. 17. GI prophylaxis. we will continue with Pepcid 20 mg orally daily. 18. DVT prophylaxis. Knee-high CRISTHIAN hose and Heparin 5000 units SC Q 12 hours. 19. Patient admitted to the hospital for a minimum of 2 night stay. 20. Full code. 21. Discharge plan. Home [facility].
--- NOTE | 2020-06-08 16:33 | US ---
EXAMINATION TYPE: US kidneys/renal and bladder DATE OF EXAM: 06/08/2020 COMPARISON: CT abdomen and pelvis April 19, 2020 CLINICAL HISTORY: low abd pain, UTI. EXAM MEASUREMENTS: Right Kidney: 10.4 x 3.7 x 4.6 cm Left Kidney: 10.1 x 3.6 x 3.9 cm Right Kidney: scattered echogenic foci may represent small stones Left Kidney: scattered echogenic foci may represent small stones Bladder: wnl There is no evidence for hydronephrosis at this point in time. Cortical thinning in both kidneys. Sc attered small to tiny nonobstructing renal calculi bilaterally are redemonstrated. No masses are iden tified on images 30. The urinary bladder is 9 greatly distended. Bilateral ureteral jets are not se en. IMPRESSION: Evidence of chronic medical renal disease and small bilateral nonobstructing renal calcul i. No hydronephrosis is identified on current study.
[2020-06-08 17:25] LABS: Glucose,Whole Blood 352 mg/dL (75-99)
[2020-06-08 20:17] LABS: Glucose,Whole Blood 180 mg/dL (75-99)
[2020-06-08] MEDS: SERTRALINE 100 MG TAB PO SCH (21:35)
[2020-06-08] MEDS: MIRTAZAPINE 15 MG TAB PO SCH (21:35)
--- NOTE | 2020-06-08 23:15 | PN ---
PROGRESS NOTE DATE OF SERVICE: 06/08/2020 REASON FOR FOLLOWUP: Urinary tract infection. INTERVAL HISTORY: The patient is currently afebrile. The patient is breathing comfortably. The patient denies having any chest pain or shortness of breath or cough. She is complaining of some dizziness. No nausea or vomiting. No abdominal pain or diarrhea. PHYSICAL EXAMINATION: Her blood pressure is 125/75, pulse of 97, temperature 98.8. She is 92% on room air. General description is a middle-aged female lying in bed in no distress. RESPIRATORY SYSTEM: Unlabored breathing with decreased breath sounds at the base. No wheeze. HEART: S1, S2. Regular rate and rhythm. ABDOMEN: Soft. No tenderness. LABS: Hemoglobin 11.1, white count 8.3, BUN of 39, creatinine 1.4. DIAGNOSTIC IMPRESSION AND PLAN: Patient admitted to hospital with generalized weakness and dizziness in this patient recently treated in the outpatient setting for a UTI MRSA and she did have a positive UA; however, culture has been negative so far. Ultrasound did show some non- obstructing renal stones and medical renal disease. The patient is covered with vancomycin. However, if the culture remains negative, antibiotic may be discontinued for a short course of oral Bactrim. Will discuss with the admitting physician. MMODL / IJN: [id number] /
[2020-06-09] MEDS: HYDROcodone/APAP 5-325MG 1 EACH TAB PO PRN ×2 (02:01→08:56)
[2020-06-09] MEDS: MECLIZINE 25 MG TAB PO PRN ×2 (02:35→20:52)
[2020-06-09] MEDS: SODIUM CHLORIDE 0.9% 1,000 ML IV SCH (07:17)
[2020-06-09 07:26] LABS: Glucose,Whole Blood 80 mg/dL (75-99)
[2020-06-09] MEDS ORDERED: ONDANSETRON 4 MG/2 ML VIAL IVP PRN (08:44)
[2020-06-09] MEDS: CHOLECALCIFEROL 1,000 UNIT TAB PO SCH (08:46)
[2020-06-09] MEDS: FERROUS SULFATE 325 MG TAB PO SCH (08:46)
[2020-06-09] MEDS: ATORVASTATIN 20 MG TAB PO SCH (08:46)
[2020-06-09] MEDS: LINAGLIPTIN 5 MG TABLET PO SCH (08:46)
[2020-06-09] MEDS: CYANOCOBALAMIN 500 MCG TAB PO SCH (08:47)
[2020-06-09] MEDS: ALPRAZolam 1 MG TAB PO SCH ×2 (08:47→20:52)
[2020-06-09] MEDS: predniSONE 20 MG TAB PO SCH (08:47)
[2020-06-09] MEDS: SODIUM BICARBONATE TAB 650 MG TAB PO SCH ×3 (08:47→20:53)
[2020-06-09] MEDS: allopurinoL 100 MG TAB PO SCH (08:47)
[2020-06-09] MEDS: HEPARIN SODIUM,PORCINE 5,000 UNIT/ML 1 ML VIAL SQ SCH ×4 (08:47→22:58)
[2020-06-09] MEDS ORDERED: VANCOMYCIN TROUGH DUE 1 EACH MISC MISCELLANE ONE (10:00)
--- NOTE | 2020-06-09 10:40 | P.PN ---
Subjective Progress Note Date: 06/09/20 HISTORY OF PRESENT ILLNESS This is a 64-year-old female with past medical history significant for Crohn's disease status post ileostomy, diabetes mellitus type 2, hepatitis C liver disease, osteoarthritis, kidney stones, chronic iron deficiency anemia. She has history of amputation of the left third toe secondary to gangrene and underlying osteomyelitis. Patient is known to ID service as she was seen in February of this year for MSSA bacteremia. Patient gives history that she has had ongoing problems with vertigo and has had follow up with ENT as an outpatient. She was recently seen by Dr. Sweeney and urinalysis was obtained, patient was placed on doxycycline but was only taking 1 tablet per day versus twice daily. She did this for 5 days before her realized that she was s upposed to be taking it twice daily. She denies dysuria. She denies having any cough, shortness of breath, chest pain, fever or chills. No nausea, vomiting, diarrhea. Patient has been afebrile, WBC 5.7, hemoglobin 8.6, platelet count 82. Creatinine 1.3. Urine culture in progress. 06/09: Patient states that last evening she had a little bit of burning with urination but none this morning. She denies any significant abdominal pain. No nausea or vomiting. Patient has been on vancomycin for UTI and completed 4 days. PHYSICAL EXAMINATION Gen: This is a 64-year-old female. Patient is resting in bed and appears to be in no acute distress. HEENT: Head is atraumatic, normocephalic. Pupils equal, round. Sclerae is anicteric. NECK: Supple. No JVD. No lymphadenopathy. No thyromegaly. LUNGS: Clear to auscultation. No wheezes or rhonchi. No intercostal retractions. HEART: Regular rate and rhythm. Systolic murmur. ABDOMEN: Soft. Bowel sounds are present. No masses. No tenderness. EXTREMITIES: No pedal edema. No calf tenderness. NEUROLOGICAL: Patient is awake, alert and oriented x3. Cranial nerves 2 through 12 are grossly intact. ASSESSMENT Dizziness Acute mild cystitis PLAN Patient has completed 4 days of vancomycin No antibiotics required at discharge Patient is cleared for discharge from infectious disease. The above dictated assessment and findings were discussed with Dr. Blanc. The impression and plan of care have been directed as dictated. Glenis Hernandez nurse practitioner acting as scribe for Dr. Blanc. Objective - Vital Signs Vital signs: Vital Signs Temp 97.8 F 06/09/20 07:37 Pulse 89 06/09/20 07:37 Resp 16 06/09/20 07:37 BP 132/67 06/09/20 07:37 Pulse Ox 92 L 06/09/20 07:37 Intake & Output 06/08/20 06/09/20 06/09/20 18:59 06:59 18:59 Intake Total 240 Output Total 1600 Balance -1360 Intake: Oral 240 Output: Stool 1400 Urine/Stool Mix 200 Other: Voiding Method Toilet # Voids 1 1 - Labs CBC & Chem 7: 06/08/20 05:45 06/08/20 05:45 Labs: Abnormal Lab Results - Last 24 Hours (Table) 06/08/20 06/08/20 06/08/20 Range/Units 05:45 17:13 20:15 POC Glucose (mg/dL) 352 H 180 H (75-99) mg/dL AST 39 H (13-35) U/L
[2020-06-09 11:38] LABS: Glucose,Whole Blood 118 mg/dL (75-99)
[2020-06-09 16:51] LABS: Glucose,Whole Blood 237 mg/dL (75-99)
--- NOTE | 2020-06-09 18:04 | P.PN ---
Subjective Progress Note Date: 06/09/20 This is a 64-year-old female with past medical history of Crohn's disease status post ileostomy, type 2 diabetes, hepatitis C liver disease, osteoarthritis history of kidney stones, chronic iron deficiency anemia, with an issue with stomal bleed on and off. She was recently hospitalized in February which time she underwent an amputation of the left third toe due to gangrene and underlying osteomyelitis by Dr. Briones. She was maintained on IV antibiotics with Kefzol for a 6 week course and was transitomed into oral Keflex and she was admitted to the ICU about a month ago thought due to gram negative pneumonia and she was released home, has been having issues with diziness on and off and she she was recently seen by nephrology due to GUANACO on CKD 3a and she was taken off her lasiix completely and she was supposed to be drinking more water, which she has been doing wll with that, she was recently treated for MRSA UTI by Dr Prasanth Pedro with doxycycline 100 mg orally bid for 1 week but unfortunately she was taken it once a day instead of twice a day, when she realized that she decided to come to the ER and she was found to have MRSA UTI and she was started on Vanco and Rocephin, after obtaining urine cultures and blood cultures and she was admitted to the hospital for evaluation and treatment and ID consult was obtained from . 06/08: Patient has been afebrile, heart rate 111, blood pressure 121/72, pulse ox 90 on room air. WBC 8.3, hemoglobin 11.1, platelet count 98. Sodium 147, potassium 4.4, chloride 110, CO2 24, BUN 39 creatinine 1.4. Blood sugars running between 108 and 292. AST 39. Urine culture has been finalized with skin carina. Urinalysis/urine culture report has not been yet obtained from Dr. Sweeney's office. Patient was scheduled as an outpatient for ultrasound of the kidneys which will be ordered for today. 06/09: Urine culture has been finalized with no growth. Patient denies abdominal pain. She has been afebrile, heart rate 96, blood pressure 140/73, pulse ox 96% on room air. Dr. Blanc recommends no antibiotics at discharge. Objective - Vital Signs Vital signs: Vital Signs Temp 99.2 F 06/09/20 14:00 Pulse 96 06/09/20 14:00 Resp 18 06/09/20 14:00 BP 144/73 06/09/20 14:00 Pulse Ox 94 L 06/09/20 15:26 Intake & Output 06/08/20 06/09/20 06/09/20 18:59 06:59 18:59 Intake Total 240 Output Total 1600 Balance -1360 Intake: Oral 240 Output: Stool 1400 Urine/Stool Mix 200 Other: Voiding Method Toilet # Voids 1 1 - Exam Review of Systems Constitutional: Reports anorexia, Reports chronic pain, Reports fatigue, Reports weakness Eyes: denies blurred vision, denies bulging eye, denies decreased vision Ears, nose, mouth and throat: Denies epistaxis, Denies neck lump, Denies sore throat Cardiovascular: Reports lightheadedness, Denies chest pain, Denies decreased exercise tolerance, Denies dyspnea on exertion, Denies orthopnea, Denies rapid heart beat, Denies shortness of breath, Denies syncope Respiratory: Denies congestion, Denies cough with sputum, Denies dyspnea, Denies home oxygen, Denies sleep apnea, Denies snoring, Denies wheezing Gastrointestinal: Reports diarrhea, Reports loss of appetite, Denies abdominal pain, Denies belching, Denies bloating, Denies BRBPR, Denies change in bowel habits, Denies excessive gas, Denies heartburn, Denies hematemesis, Denies melena, Denies nausea, Denies vomiting Genitourinary: Denies dysuria, Denies nocturia Menstruation: Reports postmenopausal Musculoskeletal: Reports atrophy, Reports gait dysfunction, Reports morning stiffness Musculoskeletal: absent: ankle pain, ankle stiffness, ankle swelling, elbow pain, elbow stiffness, elbow swelling, foot pain, foot stiffness, foot swelling, hand pain, hand stiffness, hand swelling, hip pain, hip stiffness, hip swelling, knee pain, knee stiffness, knee swelling, shoulder pain, shoulder stiffness, shoulder swelling, wrist pain, wrist stiffness, wrist swelling Integumentary: Denies pruritus, Denies rash Neurological: Denies numbness, Denies weakness Psychiatric: Reports anxiety, Reports depression, Denies sadness/tearfulness, Denies sleep disturbances, Denies suicidal ideation Endocrine: Reports fatigue Physical Examination Gen: This is a 64-year-old female. Patient appears to be comfortable and in no acute distress. HEENT: Head is atraumatic, normocephalic. Pupils equal, round, reactive to light and accommodations , sclera non icteric, mucous membranes of the mouth are somewhat dry. NECK: Supple. No JVD. No lymphadenopathy. No thyromegaly. LUNGS: decreased breath sounds at the bases with few ronchi, no expirtory wheezes, no intercostal retractions. HEART: First heart sound is depressed, second heart sound is normal, 2/6 systo lic ejection murmur at the left sternal border. ABDOMEN: Soft. Bowel sounds are present. No masses. No tenderness. Ostomy is pink, no active bleeding, brown stool in ostomy bag EXTREMITIES: No pedal edema. No calf tenderness. Dorsalis pedis +1 bilaterally. Left thrid toe amputation wound is healed, no drainage, no bleeding. No significant erythema or edema. the Eschar on the right heel is resolved. NEUROLOGICAL: Patient is awake, alert and oriented x3. Cranial nerves 2 through 12 are grossly intact, muscle power 4/5 in bilateral upper and lower extremities bilaterally, deep tendon reflexes were depressed bilaterally with bilateral neuropathic changes in both feet. - Labs CBC & Chem 7: 06/08/20 05:45 06/08/20 05:45 Labs: Abnormal Lab Results - Last 24 Hours (Table) 06/08/20 06/09/20 06/09/20 Range/Units 20:15 11:33 16:50 POC Glucose (mg/dL) 180 H 118 H 237 H (75-99) mg/dL Assessment and Plan Assessment: Assessment and plan: 1. Recent MRSA UTI failed outpatient management. we will check UA with C+S and we will check blood cultures and we will continue with IV Vancomycin pharmacy to dose its peak and trough, ID consult . 2. Dizzines. Multifactorial with an element of adrenal insuficiency is hard to rule out. we will continue with IVF but decrease to 50 ml /h and we will continue with Prednisone 20 mg orally daily. 3. History of sepsis, bacteremia secondary to left third toe gangrene with underlying osteomyelitis status post amputation 02/28/2020. Patient completed course of IV antibiotics in the form of Kefzol ad folowed by 10 course of oral Kelfelx. 4. Acute kidney injury on CKD 3 a. we will continue with IVF but we will decrease to 50 ml/h and we will continue to monitor CMP very closely. 5. Chronic anemia of chronic illness, currently stable. Continue iron 325 mg daily. 6. Recent history of stomal bleed. No active bleeding at this time. 7. Chronic kidney disease stage 3a. Avoid nephrotoxic agents.we will continue to monitor CMP. 8. Diabetes mellitus type 2. Continue NovoLog scale before meals and at bedtime and we will continue with Tradjenta 5 mg orally daily. 9. Hepatitis C in remission, stable. 10. Crohn's disease status post ileostomy in 2007 on chronic prednisone 20 mg daily. 11. Generalized anxiety disorder and recurrent depression. Continue Xanax 1 mg twice daily and Zoloft 100 mg at bedtime, Remeron 15 mg at bedtime. 12. Hypertension hypertensive cardiovascular disease. we will hild Amlodipine. 13. Vitamin deficiencies. Continue vitamin D 12, vitamin D, magnesium supple ments. 14. Chronic gout. Continue allopurinol 100 mg daily. 15. Hyperlipidemia. Continue Lipitor 20 mg at bedtime. 16. Chronic thrombocytopenia. stable. 17. GI prophylaxis. we will continue with Pepcid 20 mg orally daily. 18. DVT prophylaxis. Knee-high CRISTHIAN hose and Heparin 5000 units SC Q 12 hours. 19. Patient admitted to the hospital for a minimum of 2 night stay. 20. Full code. 21. Discharge plan. Home [facility] tomorrow.
[2020-06-09] MEDS: SERTRALINE 100 MG TAB PO SCH (20:52)
[2020-06-09] MEDS: VANCOMYCIN 1,250 MG in SODIUM CHLORIDE 0.9% 250 ML IVPB SCH (20:52)
[2020-06-09] MEDS: MIRTAZAPINE 15 MG TAB PO SCH (20:52)
[2020-06-09 21:13] LABS: Glucose,Whole Blood 440 mg/dL (75-99)
[2020-06-09] MEDS: INSULIN ASPART (NovoLOG) 100 UNIT/ML VIAL SQ SCH (21:56)
[2020-06-10] MEDS: SODIUM CHLORIDE 0.9% 1,000 ML IV SCH (00:15)
[2020-06-10 01:55] LABS: Glucose,Whole Blood 164 mg/dL (75-99)
[2020-06-10] MEDS: HYDROcodone/APAP 5-325MG 1 EACH TAB PO PRN (04:47)
[2020-06-10 07:07] LABS: Glucose,Whole Blood 103 mg/dL (75-99)
[2020-06-10] MEDS: INSULIN ASPART (NovoLOG) 100 UNIT/ML VIAL SQ SCH ×4 (09:31→22:12)
[2020-06-10] MEDS: CHOLECALCIFEROL 1,000 UNIT TAB PO SCH (10:46)
[2020-06-10] MEDS: ALPRAZolam 1 MG TAB PO SCH ×3 (10:46→22:14)
[2020-06-10] MEDS: CYANOCOBALAMIN 500 MCG TAB PO SCH (10:47)
[2020-06-10] MEDS: CALCIUM CARBONATE 500 MG CHEWABLE PO SCH (10:47)
[2020-06-10] MEDS: HEPARIN SODIUM,PORCINE 5,000 UNIT/ML 1 ML VIAL SQ SCH ×2 (10:47→22:01)
[2020-06-10] MEDS: predniSONE 20 MG TAB PO SCH (10:47)
[2020-06-10] MEDS: SODIUM BICARBONATE TAB 650 MG TAB PO SCH ×3 (10:47→22:13)
[2020-06-10] MEDS: ATORVASTATIN 20 MG TAB PO SCH (10:47)
[2020-06-10] MEDS: allopurinoL 100 MG TAB PO SCH (10:47)
[2020-06-10] MEDS: FERROUS SULFATE 325 MG TAB PO SCH (10:47)
[2020-06-10] MEDS: LINAGLIPTIN 5 MG TABLET PO SCH (10:48)
[2020-06-10 11:47] LABS: Glucose,Whole Blood 90 mg/dL (75-99)
[2020-06-10 14:16] LABS: Hemoglobin A1C 6.6 % (4.0-6.0)
--- NOTE | 2020-06-10 15:29 | PN ---
PROGRESS NOTE DATE OF SERVICE: 06/10/2020 REASON FOR FOLLOWUP: Urinary tract infection. INTERVAL HISTORY: The patient is afebrile. The patient breathing comfortably, did mention how he has been known to be change, the patient denies having any chest pain, no abdominal pain. No urinary symptoms at this point. PHYSICAL EXAMINATION: Blood pressure 120/82 with a pulse of 69, temperature 98.9, he is 99% on room air. General description is a middle-aged female, lying in bed in no distress. RESPIRATORY SYSTEM: Unlabored breathing, decreased breath sounds, no wheeze. HEART: S1, S2. Regular rate and rhythm. ABDOMEN: Soft, no tenderness. LABS: No new labs have been obtained today. DIAGNOSTIC IMPRESSION AND PLAN: 1. Patient admitted to the hospital with weakness, dizziness, which is multifactorial with recent outpatient culture with MRSA. Patient culture has been negative here, is currently on vancomycin to be discontinued on discharge. 2. Patient hypoxic chest x-ray and monitor clinical course closely. MMODL / IJN: [id number] / RIGOBERTO
--- NOTE | 2020-06-10 15:46 | XR ---
EXAMINATION TYPE: XR chest 2V DATE OF EXAM: 06/10/2020 COMPARISON: 06/06/2020 INDICATION: Hypoxia TECHNIQUE: Frontal and lateral views of the chest are obtained. FINDINGS: The heart size is normal. The pulmonary vasculature is normal. Mild bibasilar infiltrates are present. A small left pleural effusion may be present.. IMPRESSION: 1. Mild bibasilar infiltrates with small left pleural effusion. Left base findings may be worsening o ollie the interval.
[2020-06-10] MEDS ORDERED: FUROSEMIDE 10 MG/ML 2 ML VIAL IV ONE (17:11)
[2020-06-10 17:27] LABS: Glucose,Whole Blood 253 mg/dL (75-99)
[2020-06-10] MEDS: VANCOMYCIN 1,250 MG in SODIUM CHLORIDE 0.9% 250 ML IVPB SCH (21:20)
[2020-06-10 21:37] LABS: Glucose,Whole Blood 346 mg/dL (75-99)
[2020-06-10] MEDS: MIRTAZAPINE 15 MG TAB PO SCH (22:13)
[2020-06-10] MEDS: SERTRALINE 100 MG TAB PO SCH (22:13)
[2020-06-10] MEDS: MECLIZINE 25 MG TAB PO PRN (22:50)
[2020-06-11 06:41] LABS: Anisocytosis Slight; Basophils % (A) 0 %; Eosinophils % (A) 0 %; HCT 26.4 % (34.0-46.0); Lymphocytes # (A) 0.7 k/uL (1.0-4.8); Lymphocytes % (A) 9 %; MCH 33.7 pg (25.0-35.0); MCHC 33.9 g/dL (31.0-37.0); MCV 99.4 fL (80.0-100.0); Macrocytosis Slight; Mean Platelet Volume 7.5; Monocytes # (A) 0.3 k/uL (0-1.0); Monocytes % (A) 4 %; Neutrophils # (A) 6.2 k/uL (1.3-7.7); Neutrophils % (A) 86 %; Poikilocytosis Moderate; RBC 2.66 m/uL (3.80-5.40); RDW 17.1 % (11.5-15.5); WBC 7.2 k/uL (3.8-10.6)
[2020-06-11 06:43] LABS: Platelet Count 96 k/uL (150-450)
--- NOTE | 2020-06-11 10:19 | P.PN ---
Subjective Progress Note Date: 06/10/20 This is a 64-year-old female with past medical history of Crohn's disease status post ileostomy, type 2 diabetes, hepatitis C liver disease, osteoarthritis history of kidney stones, chronic iron deficiency anemia, with an issue with stomal bleed on and off. She was recently hospitalized in February which time she underwent an amputation of the left third toe due to gangrene and underlying osteomyelitis by Dr. Briones. She was maintained on IV antibiotics with Kefzol for a 6 week course and was transitomed into oral Keflex and she was admitted to the ICU about a month ago thought due to gram negative pneumonia and she was released home, has been having issues with diziness on and off and she she was recently seen by nephrology due to GUANACO on CKD 3a and she was taken off her lasiix completely and she was supposed to be drinking more water, which she has been doing wll with that, she was recently treated for MRSA UTI by Dr Prasanth Pedro with doxycycline 100 mg orally bid for 1 week but unfortunately she was taken it once a day instead of twice a day, when she realized that she decided to come to the ER and she was found to have MRSA UTI and she was started on Vanco and Rocephin, after obtaining urine cultures and blood cultures and she was admitted to the hospital for evaluation and treatment and ID consult was obtained from . 06/08: Patient has been afebrile, heart rate 111, blood pressure 121/72, pulse ox 90 on room air. WBC 8.3, hemoglobin 11.1, platelet count 98. Sodium 147, potassium 4.4, chloride 110, CO2 24, BUN 39 creatinine 1.4. Blood sugars running between 108 and 292. AST 39. Urine culture has been finalized with skin carina. Urinalysis/urine culture report has not been yet obtained from Dr. Sweeney's office. Patient was scheduled as an outpatient for ultrasound of the kidneys which will be ordered for today. 06/09: Urine culture has been finalized with no growth. Patient denies abdominal pain. She has been afebrile, heart rate 96, blood pressure 140/73, pulse ox 96% on room air. Dr. Blanc recommends no antibiotics at discharge. 06/10: Patient sitting up in chair her appetite is good, she continued to be foggy with dizziness and vertigo, she will be seen in consultation by physical therapy to move the patient Rumb[place] with, she is maintained on Antivert 25 mg orally twice every day without any relief so far, I spoke with the patient about seeing an ENT as an outpatient, we'll continue current IV antibiotic continue with Hep-Lock in her IV, increase activity hopefully will send the patient home on Saturday. Objective - Vital Signs Vital signs: Vital Signs Temp 98.9 F 06/10/20 14:00 Pulse 69 06/10/20 14:00 Resp 17 06/10/20 14:00 BP 120/82 06/10/20 14:00 Pulse Ox 89 L 06/10/20 14:00 Intake & Output 06/09/20 06/10/20 06/10/20 18:59 06:59 18:59 Intake Total 250 Balance 250 Intake: Intake, IV Titration 250 Amount Vancomycin 1,250 mg In 250 Sodium Chloride 0.9% 250 ml @ 125 mls/hr IVPB Q24H [facility] Rx#:[id number] Other: Voiding Method Toilet Toilet # Voids 3 1 # Bowel Movements 2 1 - Exam Review of Systems Constitutional: Reports anorexia, Reports chronic pain, Reports fatigue, Reports weakness Eyes: denies blurred vision, denies bulging eye, denies decreased vision Ears, nose, mouth and throat: Denies epistaxis, Denies neck lump, Denies sore throat Cardiovascular: Reports lightheadedness, Denies chest pain, Denies decreased exercise tolerance, Denies dyspnea on exertion, Denies orthopnea, Denies rapid heart beat, Denies shortness of breath, Denies syncope Respiratory: Denies congestion, Denies cough with sputum, Denies dyspnea, Denies home oxygen, Denies sleep apnea, Denies snoring, Denies wheezing Gastrointestinal: Reports diarrhea, Reports loss of appetite, Denies abdominal pain, Denies belching, Denies bloating, Denies BRBPR, Denies change in bowel habits, Denies excessive gas, Denies heartburn, Denies hematemesis, Denies melena, Denies nausea, Denies vomiting Genitourinary: Denies dysuria, Denies nocturia Menstruation: Reports postmenopausal Musculoskeletal: Reports atrophy, Reports gait dysfunction, Reports morning stiffness Musculoskeletal: absent: ankle pain, ankle stiffness, ankle swelling, elbow pain, elbow stiffness, elbow swelling, foot pain, foot stiffness, foot swelling, hand pain, hand stiffness, hand swelling, hip pain, hip stiffness, hip swelling, knee pain, knee stiffness, knee swelling, shoulder pain, shoulder stiffness, shoulder swelling, wrist pain, wrist stiffness, wrist swelling Integumentary: Denies pruritus, Denies rash Neurological: Denies numbness, Denies weakness Psychiatric: Reports anxiety, Reports depression, Denies sadness/tearfulness, Denies sleep disturbances, Denies suicidal ideation Endocrine: Reports fatigue Physical Examination Gen: This is a 64-year-old female. Patient appears to be comfortable and in no acute distress. HEENT: Head is atraumatic, normocephalic. Pupils equal, round, reactive to light and accommodations , sclera non icteric, mucous membranes of the mouth are somewhat dry. NECK: Supple. No JVD. No lymphadenopathy. No thyromegaly. LUNGS: decreased breath sounds at the bases with few ronchi, no expirtory wheezes, no intercostal retractions. HEART: First heart sound is depressed, second heart sound is normal, 2/6 systolic ejection murmur at the left sternal border. ABDOMEN: Soft. Bowel sounds are present. No masses. No tenderness. Ostomy is pink, no active bleeding, brown stool in ostomy bag EXTREMITIES: No pedal edema. No calf tenderness. Dorsalis pedis +1 bilaterally. Left thrid toe amputation wound is healed, no drainage, no bleeding. No significant erythema or edema. the Eschar on the right heel is resolved. NEUROLOGICAL: Patient is awake, alert and oriented x3. Cranial nerves 2 through 12 are grossly intact, muscle power 4/5 in bilateral upper and lower extremities bilaterally, deep tendon reflexes were depressed bilaterally with bilateral neuropathic changes in both feet. - Labs CBC & Chem 7: 06/11/20 06:18 06/08/20 05:45 Labs: Abnormal Lab Results - Last 24 Hours (Table) 06/08/20 06/09/20 06/09/20 Range/Units 05:45 16:50 21:09 POC Glucose (mg/dL) 237 H 440 H (75-99) mg/dL Hemoglobin A1c 6.6 H (4.0-6.0) % 06/10/20 06/10/20 Range/Units 01:53 07:05 POC Glucose (mg/dL) 164 H 103 H (75-99) mg/dL Hemoglobin A1c (4.0-6.0) % Assessment and Plan Assessment: Assessment and plan: 1. Recent MRSA UTI failed outpatient management. we will check UA with C+S and we will check blood cultures and we will continue with IV Vancomycin pharmacy to dose its peak and trough, ID consult . 2. Dizzines. Multifactorial with an element of adrenal insuficiency is hard to rule out. Continue patient on prednisone 20 mg orally once every day, continue Antivert 25 mg orally twice every day. 3. History of sepsis, bacteremia secondary to left third toe gangrene with underlying osteomyelitis status post amputation 02/28/2020. Patient completed course of IV antibiotics in the form of Kefzol ad folowed by 10 course of oral Kelfelx. 4. Acute kidney injury on CKD 3 a. She is back to baseline heparin Ruggiero. 5. Chronic anemia of chronic illness, currently stable. Continue iron 325 mg daily. 6. Recent history of stomal bleed. No active bleeding at this time. 7. Chronic kidney disease stage 3a. Avoid nephrotoxic agents.we will continue to monitor CMP. 8. Diabetes mellitus type 2. Continue NovoLog scale before meals and at bedtime and we will continue with Tradjenta 5 mg orally daily. 9. Hepatitis C in remission, stable. 10. Crohn's disease status post ileostomy in 2007 on chronic prednisone 20 mg daily. 11. Generalized anxiety disorder and recurrent depression. Continue Xanax 1 mg twice daily and Zoloft 100 mg at bedtime, Remeron 15 mg at bedtime. 12. Hypertension hypertensive cardiovascular disease. we will hild Amlodipine. 13. Vitamin deficiencies. Continue vitamin D 12, vitamin D, magnesium supplem ents. 14. Chronic gout. Continue allopurinol 100 mg daily. 15. Hyperlipidemia. Continue Lipitor 20 mg at bedtime. 16. Chronic thrombocytopenia. stable. 17. GI prophylaxis. we will continue with Pepcid 20 mg orally daily. 18. DVT prophylaxis. Knee-high CRISTHIAN hose and Heparin 5000 units SC Q 12 hours.
[2020-06-11] MEDS: INSULIN ASPART (NovoLOG) 100 UNIT/ML VIAL SQ SCH ×4 (10:40→22:42)
[2020-06-11 10:55] LABS: Albumin 3.1 g/dL (3.80-4.90); Albumin/Globulin Ratio 1.72 (1.60-3.17); Anion Gap 7.5 mmol/L (4.00-12.00); BUN/Creat Ratio 24.55 Ratio (12.00-20.00); Calcium 7.7 mg/dL (8.7-10.3); Carbon Dioxide 29.5 mmol/L (21.6-31.8); Globulin 1.8 g/dL (1.6-3.3); Non-African American GFR(CKD) 23.3 (60.0-200.0); Potassium 3.8 mmol/L (3.5-5.5); Total Bilirubin 0.7 mg/dL (0.2-1.2); Total Protein 4.9 g/dL (6.2-8.2)
[2020-06-11 11:23] LABS: Glucose,Whole Blood 68 mg/dL (75-99)
[2020-06-11] MEDS: PANTOPRAZOLE 40 MG TABLET PO SCH (11:24)
[2020-06-11] MEDS: CALCIUM CARBONATE 500 MG CHEWABLE PO SCH (11:25)
[2020-06-11] MEDS: CHOLECALCIFEROL 1,000 UNIT TAB PO SCH (11:25)
[2020-06-11] MEDS: ALPRAZolam 1 MG TAB PO SCH ×2 (11:25→22:42)
[2020-06-11] MEDS: ATORVASTATIN 20 MG TAB PO SCH (11:25)
[2020-06-11] MEDS: CYANOCOBALAMIN 500 MCG TAB PO SCH (11:26)
[2020-06-11] MEDS: predniSONE 20 MG TAB PO SCH (11:26)
[2020-06-11] MEDS: HEPARIN SODIUM,PORCINE 5,000 UNIT/ML 1 ML VIAL SQ SCH ×2 (11:26→22:07)
[2020-06-11] MEDS: LINAGLIPTIN 5 MG TABLET PO SCH (11:26)
[2020-06-11] MEDS: FERROUS SULFATE 325 MG TAB PO SCH (11:26)
[2020-06-11] MEDS: SODIUM BICARBONATE TAB 650 MG TAB PO SCH ×3 (11:27→22:42)
[2020-06-11 11:54] LABS: Glucose,Whole Blood 89 mg/dL (75-99)
[2020-06-11] MEDS: allopurinoL 100 MG TAB PO SCH (12:37)
[2020-06-11 17:45] LABS: Glucose,Whole Blood 255 mg/dL (75-99)
[2020-06-11] MEDS ORDERED: VANCOMYCIN TROUGH DUE 1 EACH MISC MISCELLANE ONE (19:00)
[2020-06-11] MEDS ORDERED: VANCOMYCIN IV PER PHARMACY 1 EACH MISC MISCELLANE PRN (19:55)
[2020-06-11] MEDS: MECLIZINE 25 MG TAB PO PRN (20:41)
[2020-06-11 20:56] LABS: Glucose,Whole Blood 214 mg/dL (75-99)
[2020-06-11] MEDS: SERTRALINE 100 MG TAB PO SCH (22:42)
--- NOTE | 2020-06-11 23:05 | PN ---
PROGRESS NOTE DATE OF SERVICE: 06/11/2020 REASON FOR FOLLOWUP: Urinary tract infection. INTERVAL HISTORY: The patient is currently afebrile. The patient is breathing comfortably. Denies having any chest pain. No shortness of breath. No cough. No nausea or vomiting. No abdominal pain. No diarrhea. EXAMINATION: Blood pressure 128/67 with a pulse of 80. Temperature 99.3. She is 96% on 2 L nasal cannula. General description is a middle aged female up in the bed in no distress. Respiratory system: Unlabored breathing with decreased breath sounds in the bases. No wheeze. Heart S1, S2. Regular rate and rhythm. Abdomen soft, no tenderness. LABS: BUN of 9, creatinine 7.2, BUN of 54, creatinine is 2.2. IMPRESSION/PLAN: 1. Patient with urinary tract infection and outpatient culture positive MRSA and underlying urinary tract infection has been adequately treated. Repeat urine has been negative so far. Vancomycin discontinued. 2. Patient with elevated creatinine. Gentle hydration and monitor infection closely. Continue supportive care. MMODL / IJN: [id number] /
[2020-06-11] MEDS: MIRTAZAPINE 15 MG TAB PO SCH (23:06)
[2020-06-12 07:06] LABS: Vancomycin,Random 21.8 ug/mL
[2020-06-12 07:46] LABS: Glucose,Whole Blood 107 mg/dL (75-99)
[2020-06-12] MEDS: INSULIN ASPART (NovoLOG) 100 UNIT/ML VIAL SQ SCH ×4 (08:10→22:30)
[2020-06-12] MEDS: PANTOPRAZOLE 40 MG TABLET PO SCH (08:13)
[2020-06-12] MEDS: allopurinoL 100 MG TAB PO SCH (08:13)
[2020-06-12] MEDS: FERROUS SULFATE 325 MG TAB PO SCH (08:14)
[2020-06-12] MEDS: CHOLECALCIFEROL 1,000 UNIT TAB PO SCH (08:14)
[2020-06-12] MEDS: ALPRAZolam 1 MG TAB PO SCH ×2 (08:14→22:30)
[2020-06-12] MEDS: CALCIUM CARBONATE 500 MG CHEWABLE PO SCH (08:14)
[2020-06-12] MEDS: ATORVASTATIN 20 MG TAB PO SCH (08:14)
[2020-06-12] MEDS: CYANOCOBALAMIN 500 MCG TAB PO SCH (08:14)
[2020-06-12] MEDS: HEPARIN SODIUM,PORCINE 5,000 UNIT/ML 1 ML VIAL SQ SCH ×2 (08:14→20:53)
[2020-06-12] MEDS: LINAGLIPTIN 5 MG TABLET PO SCH (08:15)
[2020-06-12] MEDS: SODIUM BICARBONATE TAB 650 MG TAB PO SCH ×3 (08:15→22:29)
[2020-06-12] MEDS: predniSONE 20 MG TAB PO SCH (08:15)
--- NOTE | 2020-06-12 10:00 | P.PN ---
Subjective Progress Note Date: 06/11/20 This is a 64-year-old female with past medical history of Crohn's disease status post ileostomy, type 2 diabetes, hepatitis C liver disease, osteoarthritis history of kidney stones, chronic iron deficiency anemia, with an issue with stomal bleed on and off. She was recently hospitalized in February which time she underwent an amputation of the left third toe due to gangrene and underlying osteomyelitis by Dr. Briones. She was maintained on IV antibiotics with Kefzol for a 6 week course and was transitomed into oral Keflex and she was admitted to the ICU about a month ago thought due to gram negative pneumonia and she was released home, has been having issues with diziness on and off and she she was recently seen by nephrology due to GUANACO on CKD 3a and she was taken off her lasiix completely and she was supposed to be drinking more water, which she has been doing wll with that, she was recently treated for MRSA UTI by Dr Prasanth Pedro with doxycycline 100 mg orally bid for 1 week but unfortunately she was taken it once a day instead of twice a day, when she realized that she decided to come to the ER and she was found to have MRSA UTI and she was started on Vanco and Rocephin, after obtaining urine cultures and blood cultures and she was admitted to the hospital for evaluation and treatment and ID consult was obtained from . 06/08: Patient has been afebrile, heart rate 111, blood pressure 121/72, pulse ox 90 on room air. WBC 8.3, hemoglobin 11.1, platelet count 98. Sodium 147, potassium 4.4, chloride 110, CO2 24, BUN 39 creatinine 1.4. Blood sugars running between 108 and 292. AST 39. Urine culture has been finalized with skin carina. Urinalysis/urine culture report has not been yet obtained from Dr. Sweeney's office. Patient was scheduled as an outpatient for ultrasound of the kidneys which will be ordered for today. 06/09: Urine culture has been finalized with no growth. Patient denies abdominal pain. She has been afebrile, heart rate 96, blood pressure 140/73, pulse ox 96% on room air. Dr. Blanc recommends no antibiotics at discharge. 06/10: Patient sitting up in chair her appetite is good, she continued to be foggy with dizziness and vertigo, she will be seen in consultation by physical therapy to move the patient , she is maintained on Antivert 25 mg orally twice every day without any relief so far, I spoke with the patient about seeing an ENT as an outpatient, we'll continue current IV antibiotic continue with Hep- Lock in her IV, increase activity hopefully will send the patient home on Saturday. 06/11: Patient sitting up in bed in no apparent distress, she continues to be somewhat dizzy, her urine culture so far is negative subsequent she was taken of vancomycin because of elevated creatinine and worsening renal function, and the patient apparently does not need to be in an antibiotic at this point in time, we'll continue to monitor patient very closely for another 24 hours and then we'll send her home tomorrow morning. Objective - Vital Signs Vital signs: Vital Signs Temp 98.6 F 06/11/20 03:38 Pulse 71 06/11/20 03:38 Resp 16 06/11/20 03:38 BP 101/64 06/11/20 03:38 Pulse Ox 99 06/11/20 03:38 Intake & Output 06/10/20 06/11/20 06/11/20 18:59 06:59 18:59 Intake Total 840 Output Total 980 Balance -980 840 Intake: Intake, IV Titration 250 Amount Vancomycin 1,250 mg In 250 Sodium Chloride 0.9% 250 ml @ 125 mls/hr IVPB Q24H [facility] Rx#:[id number] Oral 590 Output: Stool 980 Other: Voiding Method Toilet Toilet # Voids 4 1 # Bowel Movements 1 - Exam Review of Systems Constitutional: Reports anorexia, Reports chronic pain, Reports fatigue, Reports weakness Eyes: denies blurred vision, denies bulging eye, denies decreased vision Ears, nose, mouth and throat: Denies epistaxis, Denies neck lump, Denies sore throat Cardiovascular: Reports lightheadedness, Denies chest pain, Denies decreased exercise tolerance, Denies dyspnea on exertion, Denies orthopnea, Denies rapid heart beat, Denies shortness of breath, Denies syncope Respiratory: Denies congestion, Denies cough with sputum, Denies dyspnea, Denies home oxygen, Denies sleep apnea, Denies snoring, Denies wheezing Gastrointestinal: Reports diarrhea, Reports loss of appetite, Denies abdominal pain, Denies belching, Denies bloating, Denies BRBPR, Denies change in bowel habits, Denies excessive gas, Denies heartburn, Denies hematemesis, Denies melena, Denies nausea, Denies vomiting Genitourinary: Denies dysuria, Denies nocturia Menstruation: Reports postmenopausal Musculoskeletal: Reports atrophy, Reports gait dysfunction, Reports morning stiffness Musculoskeletal: absent: ankle pain, ankle stiffness, ankle swelling, elbow pain, elbow stiffness, elbow swelling, foot pain, foot stiffness, foot swelling, hand pain, hand stiffness, hand swelling, hip pain, hip stiffness, hip swelling, knee pain, knee stiffness, knee swelling, shoulder pain, shoulder stiffness, shoulder swelling, wrist pain, wrist stiffness, wrist swelling Integumentary: Denies pruritus, Denies rash Neurological: Denies numbness, Denies weakness Psychiatric: Reports anxiety, Reports depression, Denies sadness/tearfulness, Denies sleep disturbances, Denies suicidal ideation Endocrine: Reports fatigue Physical Examination Gen: This is a 64-year-old female. Patient appears to be comfortable and in no acute distress. HEENT: Head is atraumatic, normocephalic. Pupils equal, round, reactive to light and accommodations , sclera non icteric, mucous membranes of the mouth are somewhat dry. NECK: Supple. No JVD. No lymphadenopathy. No thyromegaly. LUNGS: decreased breath sounds at the bases with few ronchi, no expirtory wheezes, no intercostal retractions. HEART: First heart sound is depressed, second heart sound is normal, 2/6 systolic ejection murmur at the left sternal border. ABDOMEN: Soft. Bowel sounds are present. No masses. No tenderness. Ostomy is pink, no active bleeding, brown stool in ostomy bag EXTREMITIES: No pedal edema. No calf tenderness. Dorsalis pedis +1 bilaterally. Left thrid toe amputation wound is healed, no drainage, no bleeding. No significant erythema or edema. the Eschar on the right heel is resolved. NEUROLOGICAL: Patient is awake, alert and oriented x3. Cranial nerves 2 through 12 are grossly intact, muscle power 4/5 in bilateral upper and lower extremities bilaterally, deep tendon reflexes were depressed bilaterally with bilateral neuropathic changes in both feet. - Labs CBC & Chem 7: 06/11/20 06:18 06/12/20 06:23 Labs: Abnormal Lab Results - Last 24 Hours (Table) 06/08/20 06/10/20 06/10/20 Range/Units 05:45 17:25 21:34 RBC (3.80-5.40) m/uL Hgb (11.4-16.0) gm/dL Hct (34.0-46.0) % RDW (11.5-15.5) % Plt Count (150-450) k/uL Lymphocytes # (1.0-4.8) k/uL POC Glucose (mg/dL) 253 H 346 H (75-99) mg/dL Hemoglobin A1c 6.6 H (4.0-6.0) % 06/11/20 Range/Units 06:18 RBC 2.66 L (3.80-5.40) m/uL Hgb 9.0 L D (11.4-16.0) gm/dL Hct 26.4 L (34.0-46.0) % RDW 17.1 H (11.5-15.5) % Plt Count 96 L (150-450) k/uL Lymphocytes # 0.7 L (1.0-4.8) k/uL POC Glucose (mg/dL) (75-99) mg/dL Hemoglobin A1c (4.0-6.0) % Assessment and Plan Assessment: Assessment and plan: 1. Recent MRSA UTI failed outpatient management. Urine culture has been negative so far she was taken off vancomycin monitor the patient kidney function tests over the next 24 hours and hopefully send her home tomorrow morning she does not need to be and an antibiotic at this point in time. 2. Dizzines. Multifactorial with an element of adrenal insuficiency is hard to rule out. Continue patient on prednisone 20 mg orally once every day, continue Antivert 25 mg orally twice every day. 3. History of sepsis, bacteremia secondary to left third toe gangrene with underlying osteomyelitis status post amputation 02/28/2020. Patient completed course of IV antibiotics in the form of Kefzol ad folowed by 10 course of oral Kelfelx. 4. Acute kidney injury on CKD 3 a. She is back to baseline heparin Ruggiero. 5. Chronic anemia of chronic illness, currently stable. Continue iron 325 mg daily. 6. Recent history of stomal bleed. No active bleeding at this time. 7. Chronic kidney disease stage 3a. Avoid nephrotoxic agents.we will continue to monitor CMP. 8. Diabetes mellitus type 2. Continue NovoLog scale before meals and at bedtime and we will continue with Tradjenta 5 mg orally daily. 9. Hepatitis C in remission, stable. 10. Crohn's disease status post ileostomy in 2007 on chronic prednisone 20 mg daily. 11. Generalized anxiety disorder and recurrent depression. Continue Xanax 1 mg twice daily and Zoloft 100 mg at bedtime, Remeron 15 mg at bedtime. 12. Hypertension hypertensive cardiovascular disease. we will hild Amlodipine. 13. Vitamin deficiencies. Continue vitamin D 12, vitamin D, magnesium supplements. 14. Chronic gout. Continue allopurinol 100 mg daily. 15. Hyperlipidemia. Continue Lipitor 20 mg at bedtime. 16. Chronic thrombocytopenia. stable. 17. GI prophylaxis. we will continue with Pepcid 20 mg orally daily. 18. DVT prophylaxis. Knee-high CRISTHIAN hose and Heparin 5000 units SC Q 12 hours. 19. Home tomorrow morning.
--- NOTE | 2020-06-12 10:27 | P.PN ---
Subjective Progress Note Date: 06/12/20 This is a 64-year-old female with past medical history of Crohn's disease status post ileostomy, type 2 diabetes, hepatitis C liver disease, osteoarthritis history of kidney stones, chronic iron deficiency anemia, with an issue with stomal bleed on and off. She was recently hospitalized in February which time she underwent an amputation of the left third toe due to gangrene and underlying osteomyelitis by Dr. Briones. She was maintained on IV antibiotics with Kefzol for a 6 week course and was transitomed into oral Keflex and she was admitted to the ICU about a month ago thought due to gram negative pneumonia and she was released home, has been having issues with diziness on and off and she she was recently seen by nephrology due to GUANACO on CKD 3a and she was taken off her lasiix completely and she was supposed to be drinking more water, which she has been doing wll with that, she was recently treated for MRSA UTI by Dr Prasanth Pedro with doxycycline 100 mg orally bid for 1 week but unfortunately she was taken it once a day instead of twice a day, when she realized that she decided to come to the ER and she was found to have MRSA UTI and she was started on Vanco and Rocephin, after obtaining urine cultures and blood cultures and she was admitted to the hospital for evaluation and treatment and ID consult was obtained from . 06/08: Patient has been afebrile, heart rate 111, blood pressure 121/72, pulse ox 90 on room air. WBC 8.3, hemoglobin 11.1, platelet count 98. Sodium 147, potassium 4.4, chloride 110, CO2 24, BUN 39 creatinine 1.4. Blood sugars running between 108 and 292. AST 39. Urine culture has been finalized with skin carina. Urinalysis/urine culture report has not been yet obtained from Dr. Sweeney's office. Patient was scheduled as an outpatient for ultrasound of the kidneys which will be ordered for today. 06/09: Urine culture has been finalized with no growth. Patient denies abdominal pain. She has been afebrile, heart rate 96, blood pressure 140/73, pulse ox 96% on room air. Dr. Blanc recommends no antibiotics at discharge. 06/10: Patient sitting up in chair her appetite is good, she continued to be foggy with dizziness and vertigo, she will be seen in consultation by physical therapy to move the patient , she is maintained on Antivert 25 mg orally twice every day without any relief so far, I spoke with the patient about seeing an ENT as an outpatient, we'll continue current IV antibiotic continue with Hep- Lock in her IV, increase activity hopefully will send the patient home on Saturday. 06/11: Patient sitting up in bed in no apparent distress, she continues to be somewhat dizzy, her urine culture so far is negative subsequent she was taken of vancomycin because of elevated creatinine and worsening renal function, and the patient apparently does not need to be in an antibiotic at this point in time, we'll continue to monitor patient very closely for another 24 hours and then we'll send her home tomorrow morning. 06/12: patient still feeling a bit dizzy and she wanted to stay one more day, she is nervous about going home, she denies any chest pain or shortness of breath, no coughing or hemoptysis. no edema , she seems to be tolerating her treatment well has been off O2 and her Sat 96% on RA, she will need sleep study as outpatient. Objective - Vital Signs Vital signs: Vital Signs Temp 97.3 F L 06/12/20 07:15 Pulse 64 06/12/20 07:15 Resp 20 06/12/20 07:15 BP 124/75 06/12/20 07:15 Pulse Ox 100 06/12/20 07:15 Intake & Output 06/11/20 06/12/20 06/12/20 18:59 06:59 18:59 Intake Total 360 590 Output Total 980 Balance -620 590 Intake: Oral 360 590 Output: Stool 980 Other: Voiding Method Toilet Toilet # Voids 4 1 # Bowel Movements 1 1 - Exam Review of Systems Constitutional: Reports anorexia, Reports chronic pain, Reports fatigue, Reports weakness Eyes: denies blurred vision, denies bulging eye, denies decreased vision Ears, nose, mouth and throat: Denies epistaxis, Denies neck lump, Denies sore throat Cardiovascular: Reports lightheadedness, Denies chest pain, Denies decreased exercise tolerance, Denies dyspnea on exertion, Denies orthopnea, Denies rapid heart beat, Denies shortness of breath, Denies syncope Respiratory: Denies congestion, Denies cough with sputum, Denies dyspnea, Denies home oxygen, Denies sleep apnea, Denies snoring, Denies wheezing Gastrointestinal: Reports diarrhea, Reports loss of appetite, Denies abdominal pain, Denies belching, Denies bloating, Denies BRBPR, Denies change in bowel habits, Denies excessive gas, Denies heartburn, Denies hematemesis, Denies melena, Denies nausea, Denies vomiting Genitourinary: Denies dysuria, Denies nocturia Menstruation: Reports postmenopausal Musculoskeletal: Reports atrophy, Reports gait dysfunction, Reports morning stiffness Musculoskeletal: absent: ankle pain, ankle stiffness, ankle swelling, elbow pain, elbow stiffness, elbow swelling, foot pain, foot stiffness, foot swelling, hand pain, hand stiffness, hand swelling, hip pain, hip stiffness, hip swelling, knee pain, knee stiffness, knee swelling, shoulder pain, shoulder stiffness, shoulder swelling, wrist pain, wrist stiffness, wrist swelling Integumentary: Denies pruritus, Denies rash Neurological: Denies numbness, Denies weakness Psychiatric: Reports anxiety, Reports depression, Denies sadness/tearfulness, Denies sleep disturbances, Denies suicidal ideation Endocrine: Reports fatigue Physical Examination Gen: This is a 64-year-old female. Patient appears to be comfortable and in no acute distress. HEENT: Head is atraumatic, normocephalic. Pupils equal, round, reactive to light and accommodations , sclera non icteric, mucous membranes of the mouth are somewhat dry. NECK: Supple. No JVD. No lymphadenopathy. No thyromegaly. LUNGS: decreased breath sounds at the bases with few ronchi, no expirtory wheezes, no intercostal retractions. HEART: First heart sound is depressed, second heart sound is normal, 2/6 systolic ejection murmur at the left sternal border. ABDOMEN: Soft. Bowel sounds are present. No masses. No tenderness. Ostomy is pink, no active bleeding, brown stool in ostomy bag EXTREMITIES: No pedal edema. No calf tenderness. Dorsalis pedis +1 b ilaterally. Left thrid toe amputation wound is healed, no drainage, no bleeding. No significant erythema or edema. the Eschar on the right heel is resolved. NEUROLOGICAL: Patient is awake, alert and oriented x3. Cranial nerves 2 through 12 are grossly intact, muscle power 4/5 in bilateral upper and lower extremities bilaterally, deep tendon reflexes were depressed bilaterally with bilateral neur opathic changes in both feet. - Labs CBC & Chem 7: 06/11/20 06:18 06/12/20 06:23 Labs: Abnormal Lab Results - Last 24 Hours (Table) 06/11/20 06/11/20 06/11/20 Range/Units 06:18 11:14 17:37 BUN 54.0 H (9.0-27.0) mg/dL Creatinine 2.2 H (0.6-1.5) mg/dL Est GFR (CKD-EPI)AfAm 27.0 L (60.0-200.0) Est GFR (CKD-EPI)NonAf 23.3 L (60.0-200.0) BUN/Creatinine Ratio 24.55 H (12.00-20.00) Ratio POC Glucose (mg/dL) 68 L 255 H (75-99) mg/dL Calcium 7.7 L (8.7-10.3) mg/dL Total Protein 4.9 L (6.2-8.2) g/dL Albumin 3.10 L (3.80-4.90) g/dL 06/11/20 06/12/20 06/12/20 Range/Units 20:55 06:23 07:44 BUN (9.0-27.0) mg/dL Creatinine 1.97 H (0.6-1.5) mg/dL Est GFR (CKD-EPI)AfAm (60.0-200.0) Est GFR (CKD-EPI)NonAf (60.0-200.0) BUN/Creatinine Ratio (12.00-20.00) Ratio POC Glucose (mg/dL) 214 H 107 H (75-99) mg/dL Calcium (8.7-10.3) mg/dL Total Protein (6.2-8.2) g/dL Albumin (3.80-4.90) g/dL Assessment and Plan Assessment: Assessment and plan: 1. Recent MRSA UTI failed outpatient management. Urine culture has been negative so far she was taken off vancomycin monitor the patient kidney function tests over the next 24 hours and hopefully send her home tomorrow morning she does not need to be and an antibiotic at this point in time. 2. Dizzines. Multifactorial with an element of adrenal insuficiency is hard to rule out. Continue patient on prednisone 20 mg orally once every day, continue Antivert 25 mg orally twice every day. 3. History of sepsis, bacteremia secondary to left third toe gangrene with underlying osteomyelitis status post amputation 02/28/2020. Patient completed course of IV antibiotics in the form of Kefzol ad folowed by 10 course of oral Kelfelx. 4. Acute kidney injury on CKD 3 a. She is back to baseline heparin Ruggiero. 5. Chronic anemia of chronic illness, currently stable. Continue iron 325 mg daily. 6. Recent history of stomal bleed. No active bleeding at this time. 7. Chronic kidney disease stage 3a. Avoid nephrotoxic agents.we will continue to monitor CMP. 8. Diabetes mellitus type 2. Continue NovoLog scale before meals and at bedtime and we will continue with Tradjenta 5 mg orally daily. 9. Hepatitis C in remission, stable. 10. Crohn's disease status post ileostomy in 2007 on chronic prednisone 20 mg daily. 11. Generalized anxiety disorder and recurrent depression. Continue Xanax 1 mg twice daily and Zoloft 100 mg at bedtime, Remeron 15 mg at bedtime. 12. Hypertension hypertensive cardiovascular disease. we will hild Amlodipine. 13. Vitamin deficiencies. Continue vitamin D 12, vitamin D, magnesium supplements. 14. Chronic gout. Continue allopurinol 100 mg daily. 15. Hyperlipidemia. Continue Lipitor 20 mg at bedtime. 16. Chronic thrombocytopenia. stable. 17. GI prophylaxis. we will continue with Pepcid 20 mg orally daily. 18. DVT prophylaxis. Knee-high CRISTHIAN hose and Heparin 5000 units SC Q 12 hours. 19. Home tomorrow morning.
[2020-06-12 11:33] LABS: Glucose,Whole Blood 116 mg/dL (75-99)
[2020-06-12 16:58] LABS: Glucose,Whole Blood 188 mg/dL (75-99)
[2020-06-12] MEDS: MECLIZINE 25 MG TAB PO PRN (20:53)
[2020-06-12 21:37] LABS: Glucose,Whole Blood 205 mg/dL (75-99)
[2020-06-12 21:48] VITALS: TEMP 97.5
[2020-06-12] MEDS: SERTRALINE 100 MG TAB PO SCH (22:29)
[2020-06-12] MEDS: MIRTAZAPINE 15 MG TAB PO SCH (22:30)
--- NOTE | 2020-06-13 02:27 | PN ---
PROGRESS NOTE DATE OF SERVICE: 06/12/2020 REASON FOR FOLLOWUP: Urinary tract infection. INTERVAL HISTORY: The patient is currently afebrile. The patient is breathing comfortably. The patient denies having any chest pain. No shortness of breath or cough. Still complaining of dizziness. No abdominal pain or diarrhea. PHYSICAL EXAMINATION: Blood pressure 123/74 with a pulse of 97, temperature 97.5. She is 91% on room air. General description is a middle-aged female up in the bed in no distress. RESPIRATORY SYSTEM: Unlabored breathing, decreased breath sounds at the bases. No wheeze. HEART: S1, S2. Regular rate and rhythm. ABDOMEN: Soft. No tenderness. LABS: Creatinine is down to 1.97. DIAGNOSTIC IMPRESSION AND PLAN: Patient with urinary tract infection, adequately treated. Urine culture has been negative. Currently being monitor closely off antibiotic therapy. Kidney function showing improvement as well. Continue with supportive care. MMODL / IJN: [id number] /
[2020-06-13] MEDS: predniSONE 20 MG TAB PO SCH (07:19)
[2020-06-13] MEDS: allopurinoL 100 MG TAB PO SCH (07:19)
[2020-06-13] MEDS: CHOLECALCIFEROL 1,000 UNIT TAB PO SCH (07:19)
[2020-06-13] MEDS: HEPARIN SODIUM,PORCINE 5,000 UNIT/ML 1 ML VIAL SQ SCH ×2 (07:19→07:30)
[2020-06-13] MEDS: CYANOCOBALAMIN 500 MCG TAB PO SCH (07:19)
[2020-06-13] MEDS: FERROUS SULFATE 325 MG TAB PO SCH (07:19)
[2020-06-13 07:20] LABS: Anisocytosis Slight; Basophils % (A) 0 %; Eosinophils % (A) 1 %; HCT 25.6 % (34.0-46.0); HGB 8.8 gm/dL (11.4-16.0); Lymphocytes # (A) 0.6 k/uL (1.0-4.8); Lymphocytes % (A) 13 %; MCH 34.2 pg (25.0-35.0); MCHC 34.2 g/dL (31.0-37.0); MCV 99.9 fL (80.0-100.0); Macrocytosis Slight; Mean Platelet Volume 7.3; Monocytes # (A) 0.3 k/uL (0-1.0); Monocytes % (A) 6 %; Neutrophils # (A) 3.7 k/uL (1.3-7.7); Neutrophils % (A) 78 %; Platelet Count 107 k/uL (150-450); Poikilocytosis Moderate; RBC 2.57 m/uL (3.80-5.40); RDW 16.9 % (11.5-15.5); WBC 4.8 k/uL (3.8-10.6)
[2020-06-13] MEDS: CALCIUM CARBONATE 500 MG CHEWABLE PO SCH (07:20)
[2020-06-13] MEDS: ALPRAZolam 1 MG TAB PO SCH (07:20)
[2020-06-13] MEDS: PANTOPRAZOLE 40 MG TABLET PO SCH (07:20)
[2020-06-13] MEDS: ATORVASTATIN 20 MG TAB PO SCH (07:20)
[2020-06-13] MEDS: LINAGLIPTIN 5 MG TABLET PO SCH (07:21)
[2020-06-13] MEDS: SODIUM BICARBONATE TAB 650 MG TAB PO SCH (07:21)
[2020-06-13] MEDS: INSULIN ASPART (NovoLOG) 100 UNIT/ML VIAL SQ SCH ×2 (07:29→11:52)
[2020-06-13 07:30] LABS: Glucose,Whole Blood 88 mg/dL (75-99)
[2020-06-13 09:22] VITALS: BP 131/85; PULSE 79; RESP 17
[2020-06-13 11:33] LABS: Glucose,Whole Blood 91 mg/dL (75-99)
[2020-06-13 11:47] LABS: African American GFR (CKD) 30.2 (60.0-200.0); Albumin 3.2 g/dL (3.80-4.90); Albumin/Globulin Ratio 1.68 (1.60-3.17); Anion Gap 5.5 mmol/L (4.00-12.00); BUN/Creat Ratio 25.5 Ratio (12.00-20.00); Calcium 8.3 mg/dL (8.7-10.3); Carbon Dioxide 28.5 mmol/L (21.6-31.8); Globulin 1.9 g/dL (1.6-3.3); Non-African American GFR(CKD) 26.1 (60.0-200.0); Potassium 3.8 mmol/L (3.5-5.5); Total Bilirubin 0.8 mg/dL (0.2-1.2); Total Protein 5.1 g/dL (6.2-8.2)
--- NOTE | 2020-06-13 12:02 | P.DS ---
Providers Date of admission: 06/06/20 17:10 Expected date of discharge: 06/13/20 Attending physician: Antonio Kothari Consults: 06/06/20 17:11 Consult Physician Routine Consulting Provider: Angie Blanc Consult Reason/Comments: UTI Do you want consulting provider notified?: Yes Primary care physician: Antonio Kothari Hospital Course: This is a 64-year-old female with past medical history of Crohn's disease status post ileostomy, type 2 diabetes, hepatitis C liver disease, osteoarthritis history of kidney stones, chronic iron deficiency anemia, with an issue with stomal bleed on and off. She was recently hospitalized in February which time she underwent an amputation of the left third toe due to gangrene and underlying osteomyelitis by Dr. Briones. She was maintained on IV antibiotics with Kefzol for a 6 week course and was transitomed into oral Keflex and she was admitted to the ICU about a month ago thought due to gram negative pneumonia and she was released home, has been having issues with diziness on and off and she she was recently seen by nephrology due to GUANACO on CKD 3a and she was taken off her lasiix completely and she was supposed to be drinking more water, which she has been doing wll with that, she was recently treated for MRSA UTI by Dr Prasanth Pedro with doxycycline 100 mg orally bid for 1 week but unfortunately she was taken it once a day instead of twice a day, when she realized that she decided to come to the ER and she was found to have MRSA UTI and she was started on Vanco and Rocephin, after obtaining urine cultures and blood cultures and she was admitted to the hospital for evaluation and treatment and ID consult was obtained from . 06/08: Patient has been afebrile, heart rate 111, blood pressure 121/72, pulse ox 90 on room air. WBC 8.3, hemoglobin 11.1, platelet count 98. Sodium 147, potassium 4.4, chloride 110, CO2 24, BUN 39 creatinine 1.4. Blood sugars running between 108 and 292. AST 39. Urine culture has been finalized with skin carina. Urinalysis/urine culture report has not been yet obtained from Dr. Sweeney's office. Patient was scheduled as an outpatient for ultrasound of the kidneys which will be ordered for today. 06/09: Urine culture has been finalized with no growth. Patient denies abdominal pain. She has been afebrile, heart rate 96, blood pressure 140/73, pulse ox 96% on room air. Dr. Blanc recommends no antibiotics at discharge. 06/10: Patient sitting up in chair her appetite is good, she continued to be foggy with dizziness and vertigo, she will be seen in consultation by physical therapy to move the patient , she is maintained on Antivert 25 mg orally twice every day without any relief so far, I spoke with the patient about seeing an ENT as an outpatient, we'll continue current IV antibiotic continue with Hep- Lock in her IV, increase activity hopefully will send the patient home on Saturday. 06/11: Patient sitting up in bed in no apparent distress, she continues to be somewhat dizzy, her urine culture so far is negative subsequent she was taken of vancomycin because of elevated creatinine and worsening renal function, and the patient apparently does not need to be in an antibiotic at this point in time, we'll continue to monitor patient very closely for another 24 hours and then we'll send her home tomorrow morning. 06/12: patient still feeling a bit dizzy and she wanted to stay one more day, she is nervous about going home, she denies any chest pain or shortness of breath, no coughing or hemoptysis. no edema , she seems to be tolerating her treatment well has been off O2 and her Sat 96% on RA, she will need sleep study as outpatient. Discharge diagnoses: 1. Recent MRSA UTI failed outpatient management. 2. Dizzines 3. History of sepsis, bacteremia secondary to left third toe gangrene with underlying osteomyelitis status post amputation 02/28/2020. 4. Acute kidney injury on CKD 3 a. 5. Chronic anemia of chronic illness, currently stable. 6. Recent history of stomal bleed. 7. Chronic kidney disease stage 3a. 8. Diabetes mellitus type 2. 9. Hepatitis C in remission. 10. Crohn's disease status post ileostomy in 2007 . 11. Generalized anxiety disorder and recurrent depression. 12. Hypertension hypertensive cardiovascular disease. 13. Vitamin deficiencies. Continue vitamin D 12, vitamin D. 14. Chronic gout. 15. Hyperlipidemia. 16. Chronic thrombocytopenia. Patient Condition at Discharge: Stable Plan - Discharge Summary Discharge Rx Participant: No New Discharge Prescriptions: No Action Sertraline HCl [Zoloft] 100 mg PO HS Ferrous Sulfate [Iron (65 MG Elemental)] 325 mg PO DAILY Magnesium Oxide [Mag-Ox] 250 mg PO DAILY Cholecalciferol (Vitamin D3) [Vitamin D3] 2,000 unit PO DAILY #30 capsule predniSONE [Deltasone] 20 mg PO DAILY #30 tab sitaGLIPtin PHOSPHATE [Januvia] 50 mg PO DAILY allopurinoL [Zyloprim] 100 mg PO DAILY Rosuvastatin [Crestor] 10 mg PO DAILY amLODIPine [Norvasc] 2.5 mg PO DAILY #30 tab Pantoprazole [Protonix] 40 mg PO BID PRN PRN Reason: Gi Upset Cyanocobalamin (Vitamin B-12) [Vitamin B-12] 500 mcg PO DAILY Calcium Carbonate [Calcium] 600 mg PO DAILY ALPRAZolam [Xanax] 1 mg PO BID Mirtazapine [Remeron] 15 mg PO HS Sodium Bicarbonate Tab 650 mg PO TID Folic Acid 0.4 mg PO DAILY Discharge Medication List Sertraline HCl [Zoloft] 100 mg PO HS 07/26/17 [History] Ferrous Sulfate [Iron (65 MG Elemental)] 325 mg PO DAILY 06/19/19 [History] Magnesium Oxide [Mag-Ox] 250 mg PO DAILY 06/19/19 [History] Cholecalciferol (Vitamin D3) [Vitamin D3] 2,000 unit PO DAILY #30 capsule 06/29/19 [Rx] predniSONE [Deltasone] 20 mg PO DAILY #30 tab 06/30/19 [Rx] Rosuvastatin [Crestor] 10 mg PO DAILY 01/26/20 [History] allopurinoL [Zyloprim] 100 mg PO DAILY 01/26/20 [History] sitaGLIPtin PHOSPHATE [Januvia] 50 mg PO DAILY 01/26/20 [History] amLODIPine [Norvasc] 2.5 mg PO DAILY #30 tab 03/07/20 [Rx] Calcium Carbonate [Calcium] 600 mg PO DAILY 04/19/20 [History] Cyanocobalamin (Vitamin B-12) [Vitamin B-12] 500 mcg PO DAILY 04/19/20 [History] Pantoprazole [Protonix] 40 mg PO BID PRN 04/19/20 [History] ALPRAZolam [Xanax] 1 mg PO BID 06/06/20 [History] Folic Acid 0.4 mg PO DAILY 06/06/20 [History] Mirtazapine [Remeron] 15 mg PO HS 06/06/20 [History] Sodium Bicarbonate Tab 650 mg PO TID 06/06/20 [History] Follow up Appointment(s)/Referral(s): Antonio Kothari MD [Primary Care Provider] - 1-2 days [facility], [NON-STAFF] - 1 Week
[2020-06-13 12:52] VITALS: BMI 25.8
[2020-06-13] MEDS: MECLIZINE 25 MG TAB PO PRN (13:22)
--- NOTE | 2020-06-13 14:10 | PN ---
PROGRESS NOTE DATE OF SERVICE: 06/13/2020 REASON FOR FOLLOWUP: UTI. INTERVAL HISTORY: The patient is currently afebrile, patient is breathing better, breathing comfortably, no chest pain. No cough. No abdominal pain. No diarrhea. PHYSICAL EXAMINATION: Blood pressure 131/80, pulse of 79, temperature is 97.5, she is 96% on room air. General description is a middle-aged female lying in bed in no distress. RESPIRATORY SYSTEM: Unlabored breathing, clear to auscultation anteriorly. HEART: S1, S2, regular. Abdomen: Soft. No tenderness. LABS: Hemoglobin 8.1, white count 4.8, creatinine is 2.0. DIAGNOSTIC IMPRESSION AND PLAN: The patient admitted to the hospital with urinary tract infection with concern for possible MRSA in the outpatient setting. Underlying UTI has resolved, culture has been negative so far. No fever. No white count. No need for antibiotic on discharge. MMODL / IJN: [id number] /
== END 2020-06-13 13:21 | disposition home health service (06) ==
LOC: EC 13:20 → INTOOBSV 17:10 → 5NMEDONC 17:10 → UNDODISIN 06-13 13:21
PROVIDERS: ADMIT Internal Medicine; ATTEND Internal Medicine
DX: N30.90 Cystitis, unspecified without hematuria (principal); N17.9 Acute kidney failure, unspecified; F33.9 Major depressive disorder, recurrent, unspecified; B95.62 Methicillin resistant Staphylococcus aureus infection as the cause of diseases classified elsewhere; D63.1 Anemia in chronic kidney disease; E86.0 Dehydration; F41.1 Generalized anxiety disorder; I13.10 Hypertensive heart and chronic kidney disease without heart failure, with stage 1 through stage 4 chronic kidney disease, or unspecified chronic kidney disease; R79.89 Other specified abnormal findings of blood chemistry; E11.22 Type 2 diabetes mellitus with diabetic chronic kidney disease; E78.5 Hyperlipidemia, unspecified; D69.6 Thrombocytopenia, unspecified; B19.20 Unspecified viral hepatitis C without hepatic coma; N20.0 Calculus of kidney; M1A.9XX0 Chronic gout, unspecified, without tophus (tophi); Z20.828 Contact with and (suspected) exposure to other viral communicable diseases; Z79.84 Long term (current) use of oral hypoglycemic drugs; Z79.52 Long term (current) use of systemic steroids; Z88.6 Allergy status to analgesic agent; Z88.1 Allergy status to other antibiotic agents; Z91.09 Other allergy status, other than to drugs and biological substances; Z93.2 Ileostomy status; Z90.710 Acquired absence of both cervix and uterus; Z89.422 Acquired absence of other left toe(s); Z87.442 Personal history of urinary calculi; Z87.440 Personal history of urinary (tract) infections; Z90.49 Acquired absence of other specified parts of digestive tract; Z96.641 Presence of right artificial hip joint; Z80.9 Family history of malignant neoplasm, unspecified; Z83.3 Family history of diabetes mellitus; Z82.3 Family history of stroke
CPT/HCPCS: 96361 ×4; 96366 ×5; 96372 ×3; 96375 ×2; 96365; 99285; 36415; 94760; 93005; 97161; 80053 ×5; 82565; 83605; 83735; 84484; 85025 ×5; 80202 ×3; 85610; 85730; 81001; 87086; 83036; 87635; 71046 ×2; 76770; G0378 ×9; J3370 ×5; J1644 ×3; J1940; J2405; J0696; J7512 ×7

== ENCOUNTER 2020-07-25 10:56 | Inpatient (IN) | payer MEDICARE ==
[2020-07-25] MEDS ORDERED: SODIUM CHLORIDE 0.9% 1,000 ML IV STA (11:20)
--- NOTE | 2020-07-25 11:55 | ED ---
General Adult HPI - General Chief complaint: Weakness Stated complaint: Weakness Time Seen by Provider: 07/25/20 11:01 Source: patient, family, RN notes reviewed Mode of arrival: wheelchair Limitations: no limitations - History of Present Illness Initial comments: This a 64-year-old female presents emergency Department chief complaint of generalized weakness. Patient states she's had increased to the last several months to the point where she is having difficulty getting up and around. Patient states she does use a walker. Patient states that she's had chronic anemia and states that she's had transfusions in the past and states she feels like she needs a transfusion. Patient called Dr. Kothari yesterday in which the patient was given a follow-up in office today but was called and told her if she felt too weak that she needed to come to the emergency department. Patient denies any current chest pain. She's had some palpitations no significant headache or dizziness currently. Patient states she has no ileostomy from Crohn's disease states that she occasionally has bleeding but nothing significant. Patient has no urinary frequency or dysuria - Related Data Home Medications Medication Instructions Recorded Confirmed Sertraline HCl [Zoloft] 100 mg PO HS 07/26/17 07/25/20 Ferrous Sulfate [Iron (65 MG 325 mg PO DAILY 06/19/19 07/25/20 Elemental)] Magnesium Oxide [Mag-Ox] 250 mg PO DAILY 06/19/19 07/25/20 Rosuvastatin [Crestor] 10 mg PO DAILY 01/26/20 07/25/20 allopurinoL [Zyloprim] 100 mg PO DAILY 01/26/20 07/25/20 sitaGLIPtin PHOSPHATE [Januvia] 50 mg PO DAILY 01/26/20 07/25/20 ALPRAZolam [Xanax] 1 mg PO BID 06/06/20 07/25/20 Folic Acid 0.4 mg PO DAILY 06/06/20 07/25/20 Mirtazapine [Remeron] 15 mg PO HS 06/06/20 07/25/20 Sodium Bicarbonate Tab 650 mg PO TID 06/06/20 07/25/20 Ascorbic Acid [Vitamin C] 500 mg PO DAILY 07/25/20 07/25/20 Calcium Carbonate [Tums] 1,000 mg PO DAILY 07/25/20 07/25/20 Cholecalciferol [Vitamin D3 (25 25 mcg PO DAILY 07/25/20 07/25/20 Mcg = 1000 Iu)] Cyanocobalamin (Vitamin B-12) 1,000 mcg PO DAILY 07/25/20 07/25/20 [Vitamin B-12] Furosemide [Lasix] 40 mg PO MOWEFR 07/25/20 07/25/20 Previous Rx's Medication Instructions Recorded predniSONE [Deltasone] 20 mg PO DAILY #30 tab 06/30/19 Pantoprazole [Protonix] 40 mg PO AC-BRKFST #30 tablet. 06/13/20 Allergies Allergy/AdvReac Type Severity Reaction Status Date / Time adhesive tape Allergy Severe Rash/Hives/Skin Verified 07/25/20 11:55 Peeling levofloxacin [From Levaquin] Allergy Severe Swelling/ra Verified 07/25/20 11:55 sh Quinolones Allergy Severe Anaphylaxis Verified 07/25/20 11:55 /Swelling enoxaparin [From Lovenox] Allergy GI bleed Verified 07/25/20 11:55 NSAIDS (Non-Steroidal AdvReac Severe GI Verified 07/25/20 11:55 Anti-Inflamma Bleeding/Liver Damage warfarin [From Coumadin] AdvReac Severe Abdominal Verified 07/25/20 11:55 Pain Review of Systems ROS Statement: Those systems with pertinent positive or pertinent negative responses have been documented in the HPI. ROS Other: All systems not noted in ROS Statement are negative. Past Medical History Past Medical History: Blood Disorder, Diabetes Mellitus, GERD/Reflux, H yperlipidemia, Hypertension, Liver Disease, Osteoarthritis (OA), Renal Disease Additional Past Medical History / Comment(s): crohns, hx. hep c, past hx. sepsis & ards 2007, has ileostomy, hx. kidney stones, hx. of infection,has spacer in, hx. anemia related to intermittent bleeding from stoma, has past hx., uti , low platelets septicemia. CHRONIC KIDNEY DISEASE. History of Any Multi-Drug Resistant Organisms: MRSA Date of last positivie culture/infection: 04/25/16 MDRO Source:: Blood & Right Hip Past Surgical History: Appendectomy, Bowel Resection, Cholecystectomy, Hernia Repair, Hysterectomy, Tubal Ligation Additional Past Surgical History / Comment(s): ileostomy 2009 WITH 3-4 RE- SUTURING EPISODES RELATED TO BLEEDING, ileoscopy w/argon gas coagulation of stoma, 10-22-16 revison rt toal hip arthroplasty Past Anesthesia/Blood Transfusion Reactions: No Reported Reaction Past Psychological History: Anxiety Smoking Status: Never smoker Past Alcohol Use History: None Reported Past Drug Use History: None Reported - Past Family History Mother Family Medical History: CVA/TIA, Diabetes Mellitus Additional Family Medical History / Comment(s): Mother at age 88 from CVA. Sister(s) Additional Family Medical History / Comment(s): Patient has 3 sisters with no major medical problems. Patient does not have any brothers. Patient has 2 sons with no major medical problems. Father Family Medical History: Cancer Additional Family Medical History / Comment(s): . General Exam Limitations: no limitations General appearance: alert, in no apparent distress Head exam: Present: atraumatic, normocephalic, normal inspection Eye exam: Present: normal appearance, PERRL, EOMI. Absent: scleral icterus, conjunctival injection, periorbital swelling ENT exam: Present: normal exam, normal oropharynx, mucous membranes moist Neck exam: Present: normal inspection, full ROM. Absent: tenderness, meningismus, lymphadenopathy Respiratory exam: Present: normal lung sounds bilaterally. Absent: respiratory distress, wheezes, rales, rhonchi, stridor Cardiovascular Exam: Present: normal rhythm, tachycardia, normal heart sounds. Absent: systolic murmur, diastolic murmur, rubs, gallop, clicks GI/Abdominal exam: Present: soft, normal bowel sounds, other (Ileostomy noted). Absent: distended, tenderness, guarding, rebound, rigid Neurological exam: Present: alert, oriented X3, CN II-XII intact Skin exam: Present: warm, dry, intact, normal color. Absent: rash Course Vital Signs 07/25/20 07/25/20 07/25/20 10:57 11:54 12:59 Temperature 98 F Pulse Rate 123 H 122 H 116 H Respiratory 18 20 20 Rate Blood Pressure 150/87 124/89 122/87 O2 Sat by Pulse 92 L 91 L 96 Oximetry EKG Findings - EKG Comments: EKG Findings:: Sinus tachycardia rate of 121 RI 138 QRS 82 QTC is QTC 306/434 there is a left axis deviation - EKG Results: EKG: interpreted by [facility] Medical Decision Making - Medical Decision Making 64-year-old female presented for generalized weakness. Patient's found to be acutely dehydrated, acute kidney injury. Patient does have moderate leukocytosis, chest x-rays unremarkable. Patient will be admitted to Dr. Kothari with consult to nephrology. Patient we kept on maintenance fluids. - Lab Data Result diagrams: 07/25/20 11:59 07/25/20 11:59 Lab Results 07/25/20 07/25/20 07/25/20 Range/Units 11:59 11:59 11:59 WBC 18.2 H (3.8-10.6) k/uL RBC 4.63 (3.80-5.40) m/uL Hgb 15.9 D (11.4-16.0) gm/dL Hct 46.2 H (34.0-46.0) % MCV 99.7 (80.0-100.0) fL MCH 34.2 (25.0-35.0) pg MCHC 34.3 (31.0-37.0) g/dL RDW 16.5 H (11.5-15.5) % Plt Count 129 L (150-450) k/uL MPV 8.2 Neutrophils % 81 % Lymphocytes % 13 % Monocytes % 4 % Eosinophils % 1 % Basophils % 1 % Neutrophils # 14.8 H (1.3-7.7) k/uL Lymphocytes # 2.3 (1.0-4.8) k/uL Monocytes # 0.8 (0-1.0) k/uL Eosinophils # 0.1 (0-0.7) k/uL Basophils # 0.2 (0-0.2) k/uL Poikilocytosis Moderate Anisocytosis Slight Macrocytosis Slight PT 12.0 (9.0-12.0) sec INR 1.2 H (<1.2) APTT 20.7 L (22.0-30.0) sec Sodium 130 L (137-145) mmol/L Potassium 4.1 (3.5-5.1) mmol/L Chloride 93 L (98-107) mmol/L Carbon Dioxide 20 L (22-30) mmol/L Anion Gap 17 mmol/L BUN 117 H* (7-17) mg/dL Creatinine 2.56 H (0.52-1.04) mg/dL Est GFR (CKD-EPI)AfAm 22 (>60 ml/min/1.73 sqM) Est GFR (CKD-EPI)NonAf 19 (>60 ml/min/1.73 sqM) Glucose 272 H (74-99) mg/dL Plasma Lactic Acid Catrachito (0.7-2.0) mmol/L Calcium 9.8 (8.4-10.2) mg/dL Magnesium 1.5 L (1.6-2.3) mg/dL Total Bilirubin 1.1 (0.2-1.3) mg/dL AST 34 (14-36) U/L ALT 24 (4-34) U/L Alkaline Phosphatase 81 (38-126) U/L Troponin I (0.000-0.034) ng/mL NT-Pro-B Natriuret Pep pg/mL Total Protein 7.8 (6.3-8.2) g/dL Albumin 4.3 (3.5-5.0) g/dL 07/25/20 07/25/20 07/25/20 Range/Units 11:59 11:59 11:59 WBC (3.8-10.6) k/uL RBC (3.80-5.40) m/uL Hgb (11.4-16.0) gm/dL Hct (34.0-46.0) % MCV (80.0-100.0) fL MCH (25.0-35.0) pg MCHC (31.0-37.0) g/dL RDW (11.5-15.5) % Plt Count (150-450) k/uL MPV Neutrophils % % Lymphocytes % % Monocytes % % Eosinophils % % Basophils % % Neutrophils # (1.3-7.7) k/uL Lymphocytes # (1.0-4.8) k/uL Monocytes # (0-1.0) k/uL Eosinophils # (0-0.7) k/uL Basophils # (0-0.2) k/uL Poikilocytosis Anisocytosis Macrocytosis PT (9.0-12.0) sec INR (<1.2) APTT (22.0-30.0) sec Sodium (137-145) mmol/L Potassium (3.5-5.1) mmol/L Chloride (98-107) mmol/L Carbon Dioxide (22-30) mmol/L Anion Gap mmol/L BUN (7-17) mg/dL Creatinine (0.52-1.04) mg/dL Est GFR (CKD-EPI)AfAm (>60 ml/min/1.73 sqM) Est GFR (CKD-EPI)NonAf (>60 ml/min/1.73 sqM) Glucose (74-99) mg/dL Plasma Lactic Acid Catrachito 2.3 H* (0.7-2.0) mmol/L Calcium (8.4-10.2) mg/dL Magnesium (1.6-2.3) mg/dL Total Bilirubin (0.2-1.3) mg/dL AST (14-36) U/L ALT (4-34) U/L Alkaline Phosphatase (38-126) U/L Troponin I 0.023 (0.000-0.034) ng/mL NT-Pro-B Natriuret Pep 1150 pg/mL Total Protein (6.3-8.2) g/dL Albumin (3.5-5.0) g/dL Disposition Clinical Impression: Dehydration, Weakness, Lactic acidosis, Leukocytosis Disposition: ADMITTED IP TO THIS HOSP Condition: Fair Referrals: Antonio Kothari MD [Primary Care Provider] - 1-2 days
[2020-07-25 12:08] LABS: Anisocytosis Slight; Basophils # (A) 0.2 k/uL (0-0.2); Basophils % (A) 1 %; Eosinophils # (A) 0.1 k/uL (0-0.7); Eosinophils % (A) 1 %; HCT 46.2 % (34.0-46.0); Lymphocytes # (A) 2.3 k/uL (1.0-4.8); Lymphocytes % (A) 13 %; MCH 34.2 pg (25.0-35.0); MCHC 34.3 g/dL (31.0-37.0); MCV 99.7 fL (80.0-100.0); Macrocytosis Slight; Mean Platelet Volume 8.2; Monocytes # (A) 0.8 k/uL (0-1.0); Monocytes % (A) 4 %; Neutrophils # (A) 14.8 k/uL (1.3-7.7); Neutrophils % (A) 81 %; Platelet Count 129 k/uL (150-450); Poikilocytosis Moderate; RBC 4.63 m/uL (3.80-5.40); RDW 16.5 % (11.5-15.5); WBC 18.2 k/uL (3.8-10.6)
[2020-07-25 12:15] LABS: HGB 15.9 gm/dL (11.4-16.0)
[2020-07-25 12:17] LABS: Albumin 4.3 g/dL (3.5-5.0); Calcium 9.8 mg/dL (8.4-10.2); Magnesium 1.5 mg/dL (1.6-2.3); Potassium 4.1 mmol/L (3.5-5.1); Total Bilirubin 1.1 mg/dL (0.2-1.3); Total Protein 7.8 g/dL (6.3-8.2)
[2020-07-25 12:33] LABS: INR 1.2 (<1.2)
--- NOTE | 2020-07-25 12:36 | XR ---
EXAMINATION TYPE: XR chest 2V DATE OF EXAM: 07/25/2020 COMPARISON: 06/10/2020 HISTORY: Shortness of breath TECHNIQUE: Frontal and lateral views of the chest are obtained. FINDINGS: Scattered senescent parenchymal changes noted. Hyperinflation compatible with COPD. No evidence for infiltrate. No evidence for atelectasis. Heart size is stable. Mediastinal structures are stable and grossly unremarkable. No evidence for hilar prominence. Degenerative changes dorsal spine. IMPRESSION: 1. No evidence for acute pulmonary disease.
[2020-07-25 12:40] LABS: Partial Thromboplastin Time 20.7 sec (22.0-30.0)
[2020-07-25] MEDS ORDERED: ACETAMINOPHEN TAB 325 MG TAB PO PRN (13:11)
[2020-07-25] MEDS ORDERED: ONDANSETRON 4 MG/2 ML VIAL IVP PRN (13:11)
[2020-07-25] MEDS ORDERED: NALOXONE 0.4 MG/ML 1 ML VIAL IV PRN (13:11)
[2020-07-25 13:29] LABS: Appearance,Urine Cloudy (Clear); Bacteria,Urine Occasional /hpf; Bilirubin,Urine Negative (Negative); Blood,Urine Small (Negative); Color,Urine Yellow; Glucose,Urine (UA) Negative (Negative); Hyaline Casts,Urine 6 /lpf (0-2); Ketones,Urine Negative (Negative); Leukocyte Esterase,Urine Large (Negative); Mucus,Urine Rare /hpf; Nitrite,Urine Negative (Negative); Protein,Urine 3+ (Negative); RBC,Urine 6 /hpf (0-5); Specific Gravity,Urine 1.019 (1.001-1.035); Squamous Epithelial Cell,Urine 15 /hpf (0-4); Urobilinogen,Urine <2.0 mg/dL (<2.0); WBC,Urine 167 /hpf (0-5)
--- NOTE | 2020-07-25 14:37 | US ---
EXAMINATION TYPE: US renals and bladder DATE OF EXAM: 07/25/2020 COMPARISON: NONE CLINICAL HISTORY: GUNAACO. no symptoms, guanaco, ileostomy, h/o crohn's EXAM MEASUREMENTS: Right Kidney: 10.6 x 4.0 x 4.8 cm Left Kidney: 8.9 x 3.3 x 3.6 cm Right Kidney: cortical thinning Left Kidney: limited views due to gas, smaller in size Bladder: wnl There is no evidence for hydronephrosis at this point in time. No nephrolithiasis is seen. No german s are identified. The urinary bladder is anechoic. Bilateral ureteral jets are seen. IMPRESSION: Diminutive right kidney.
[2020-07-25] MEDS: SODIUM BICARBONATE TAB 650 MG TAB PO SCH ×2 (15:21→21:12)
[2020-07-25] MEDS: SODIUM CHLORIDE 0.9% 1,000 ML IV SCH ×2 (15:22→21:16)
[2020-07-25 16:40] LABS: Glucose,Whole Blood 291 mg/dL (75-99)
[2020-07-25] MEDS: INSULIN ASPART (NovoLOG) 100 UNIT/ML VIAL SQ SCH ×2 (17:14→21:12)
[2020-07-25 20:24] LABS: Glucose,Whole Blood 236 mg/dL (75-99)
[2020-07-25] MEDS: MIRTAZAPINE 15 MG TAB PO SCH (21:12)
[2020-07-25] MEDS: SERTRALINE 100 MG TAB PO SCH (21:12)
[2020-07-25] MEDS: ALPRAZolam 1 MG TAB PO SCH (21:12)
--- NOTE | 2020-07-26 04:36 | P.HPIM ---
History of Present Illness H&P Date: 07/25/20 Chief Complaint: Weakness This is a 64-year-old female with past medical history of Crohn's disease status post ileostomy, type 2 diabetes, hepatitis C liver disease, osteoarthritis history of kidney stones, chronic iron deficiency anemia, with an issue with stomal bleed on and off. She was hospitalized in February 2020 which time she underwent an amputation of the left third toe due to gangrene and underlying osteomyelitis by Dr. Briones. She was maintained on IV antibiotics with Kefzol for a 6 week course and was transitomed into oral Keflex and she was admitted to the ICU about a month ago thought due to gram negative pneumonia and she was released home, has been having issues with dizziness on and off and she she was recently seen by nephrology due to GUANACO on CKD 3a and she was taken off her lasiix completely and she was supposed to be drinking more water, which she has been doing well with that, she was hospitalized in 06/06/2020 for dehydratio n and UTI and she was followed with me as an outpatient and had the [facility] for 3 visit, patient started to have increased swelling and she was told to go back on lasix 3 times per week, she called me the yesterday stating that she is very weak and she wanted to come to see me, but today after talking to her on the phone she sounded very weak and I urged her to come to the ER instead, she was found to have acute kidney injury with BUN 117 and creatinine of 2.5 , she as started on IVF 0.9 saline at 100 cc/h and she was admitted to the hospital for evaluation by nephrology. Review of Systems Constitutional: Reports anorexia, Reports fatigue, Reports lethargy, Reports weakness Eyes: denies blurred vision, denies bulging eye, denies decreased vision Ears, nose, mouth and throat: Denies dysphagia, Denies neck lump, Denies sore throat Cardiovascular: Denies chest pain, Denies decreased exercise tolerance, Denies dyspnea on exertion, Denies leg edema, Denies rapid heart beat, Denies shortness of breath, Denies syncope Respiratory: Denies congestion, Denies cough, Denies cough with sputum, Denies home oxygen, Denies sleep apnea, Denies snoring, Denies wheezing Gastrointestinal: Reports diarrhea, Reports loss of appetite, Denies abdominal pain, Denies bloating, Denies BRBPR, Denies heartburn, Denies hematemesis, Denies melena, Denies nausea, Denies vomiting Genitourinary: Denies dysuria, Denies nocturia Menstruation: Reports postmenopausal Musculoskeletal: Reports atrophy, Reports gait dysfunction, Reports low back pain, Reports morning stiffness Musculoskeletal: absent: ankle pain, ankle stiffness, ankle swelling, elbow pain, elbow stiffness, elbow swelling, foot pain, foot stiffness, foot swelling, hand pain, hand stiffness, hand swelling, hip pain, hip stiffness, hip swelling, knee pain, knee stiffness, knee swelling, shoulder pain, shoulder stiffness, shoulder swelling, wrist pain, wrist stiffness, wrist swelling Integumentary: Denies pruritus, Denies rash Neurological: Reports gait dysfunction, Reports vertigo Psychiatric: Reports anxiety, Reports depression, Denies sadness/tearfulness, Denies sleep disturbances, Denies suicidal ideation Endocrine: Denies fatigue, Denies weight change Past Medical History Past Medical History: Blood Disorder, Diabetes Mellitus, GERD/Reflux, Hyperlipidemia, Hypertension, Liver Disease, Osteoarthritis (OA), Renal Disease Additional Past Medical History / Comment(s): crohns, hx. hep c, past hx. sepsis & ards 2007, has ileostomy, hx. kidney stones, hx. of infection,has spacer in, hx. anemia related to intermittent bleeding from stoma, has past hx., uti , low platelets septicemia. CHRONIC KIDNEY DISEASE. History of Any Multi-Drug Resistant Organisms: MRSA Date of last positivie culture/infection: 04/25/16 MDRO Source:: Blood & Right Hip Past Surgical History: Appendectomy, Bowel Resection, Cholecystectomy, Hernia Repair, Hysterectomy, Tubal Ligation Additional Past Surgical History / Comment(s): ileostomy 2009 WITH 3-4 RE- SUTURING EPISODES RELATED TO BLEEDING, ileoscopy w/argon gas coagulation of stoma, 10-22-16 revison rt toal hip arthroplasty Past Anesthesia/Blood Transfusion Reactions: No Reported Reaction Past Psychological History: Anxiety Smoking Status: Never smoker Past Alcohol Use History: None Reported Past Drug Use History: None Reported - Past Family History Mother Family Medical History: CVA/TIA, Diabetes Mellitus Additional Family Medical History / Comment(s): Mother at age 88 from CVA. Sister(s) Additional Family Medical History / Comment(s): Patient has 3 sisters with no major medical problems. Patient does not have any brothers. Patient has 2 sons with no major medical problems. Father Family Medical History: Cancer Additional Family Medical History / Comment(s): . Medications and Allergies Home Medications Medication Instructions Recorded Confirmed Type Sertraline HCl [Zoloft] 100 mg PO HS 07/26/17 07/25/20 History Ferrous Sulfate [Iron (65 MG 325 mg PO DAILY 06/19/19 07/25/20 History Elemental)] Magnesium Oxide [Mag-Ox] 250 mg PO DAILY 06/19/19 07/25/20 History predniSONE [Deltasone] 20 mg PO DAILY #30 tab 06/30/19 07/25/20 Rx Rosuvastatin [Crestor] 10 mg PO DAILY 01/26/20 07/25/20 History allopurinoL [Zyloprim] 100 mg PO DAILY 01/26/20 07/25/20 History sitaGLIPtin PHOSPHATE [Januvia] 50 mg PO DAILY 01/26/20 07/25/20 History ALPRAZolam [Xanax] 1 mg PO BID 06/06/20 07/25/20 History Folic Acid 0.4 mg PO DAILY 06/06/20 07/25/20 History Mirtazapine [Remeron] 15 mg PO HS 06/06/20 07/25/20 History Sodium Bicarbonate Tab 650 mg PO TID 06/06/20 07/25/20 History Pantoprazole [Protonix] 40 mg PO EMILY-CIERAFSCecile #30 tablet. 06/13/20 07/25/20 Rx Ascorbic Acid [Vitamin C] 500 mg PO DAILY 07/25/20 07/25/20 History Calcium Carbonate [Tums] 1,000 mg PO DAILY 07/25/20 07/25/20 History Cholecalciferol [Vitamin D3 (25 25 mcg PO DAILY 07/25/20 07/25/20 History Mcg = 1000 Iu)] Cyanocobalamin (Vitamin B-12) 1,000 mcg PO DAILY 07/25/20 07/25/20 History [Vitamin B-12] Furosemide [Lasix] 40 mg PO MOWEFR 07/25/20 07/25/20 History Allergies Allergy/AdvReac Type Severity Reaction Status Date / Time adhesive tape Allergy Severe Rash/Hives/Skin Verified 07/25/20 11:55 Peeling levofloxacin [From Levaquin] Allergy Severe Swelling/ra Verified 07/25/20 11:55 sh Quinolones Allergy Severe Anaphylaxis Verified 07/25/20 11:55 /Swelling enoxaparin [From Lovenox] Allergy GI bleed Verified 07/25/20 11:55 NSAIDS (Non-Steroidal AdvReac Severe GI Verified 07/25/20 11:55 Anti-Inflamma Bleeding/Liver Damage warfarin [From Coumadin] AdvReac Severe Abdominal Verified 07/25/20 11:55 Pain Physical Exam Vitals: Vital Signs Temp Pulse Resp BP Pulse Ox 07/25/20 11:54 122 H 20 124/89 91 L 07/25/20 10:57 98 F 123 H 18 150/87 92 L Intake and Output 07/24/20 07/25/20 07/25/20 22:59 06:59 14:59 Other: Weight 68.492 kg Physical examination: Gen: This is a 64-year-old female. Patient is resting on the ER stretcher and appears to be significantly weak. HEENT: Head is atraumatic, normocephalic. Pupils equal, round, reactive to light and accommodations , sclera non icteric, mucous membranes of the mouth are somewhat dry. NECK: Supple. No JVD. No lymphadenopathy. No thyromegaly. LUNGS: decreased breath sounds at the bases with few ronchi, no expirtory wheezes, no intercostal retractions. HEART: First heart sound is depressed, second heart sound is normal, 2/6 systolic ejection murmur at the left sternal border. ABDOMEN: Soft. Bowel sounds are present. No masses. No tenderness. Ostomy is pink, no active bleeding, brown stool in ostomy bag EXTREMITIES: No pedal edema. No calf tenderness. Dorsalis pedis +1 bilaterally. Left thrid toe amputation wound is healed, no drainage, no bleeding. No significant erythema or edema. the Eschar on the right heel is resolving NEUROLOGICAL: Patient is awake, alert and oriented x3. Cranial nerves 2 through 12 are grossly intact, muscle power 4/5 in bilateral upper and lower extremities bilaterally, deep tendon reflexes were depressed bilaterally with bilateral neuropathic changes in both feet. Results CBC & Chem 7: 07/25/20 11:59 07/25/20 11:59 Labs: Abnormal Lab Results - Last 24 Hours (Table) 02/07/1407/25/20 07/25/20 Range/Units 11:59 11:59 11:59 WBC 18.2 H (3.8-10.6) k/uL Hct 46.2 H (34.0-46.0) % RDW 16.5 H (11.5-15.5) % Plt Count 129 L (150-450) k/uL Neutrophils # 14.8 H (1.3-7.7) k/uL INR 1.2 H (<1.2) APTT 20.7 L (22.0-30.0) sec Sodium 130 L (137-145) mmol/L Chloride 93 L (98-107) mmol/L Carbon Dioxide 20 L (22-30) mmol/L BUN 117 H* (7-17) mg/dL Creatinine 2.56 H (0.52-1.04) mg/dL Glucose 272 H (74-99) mg/dL Plasma Lactic Acid Catrachito (0.7-2.0) mmol/L Magnesium 1.5 L (1.6-2.3) mg/dL 07/25/20 Range/Units 11:59 WBC (3.8-10.6) k/uL Hct (34.0-46.0) % RDW (11.5-15.5) % Plt Count (150-450) k/uL Neutrophils # (1.3-7.7) k/uL INR (<1.2) APTT (22.0-30.0) sec Sodium (137-145) mmol/L Chloride (98-107) mmol/L Carbon Dioxide (22-30) mmol/L BUN (7-17) mg/dL Creatinine (0.52-1.04) mg/dL Glucose (74-99) mg/dL Plasma Lactic Acid Catrachito 2.3 H* (0.7-2.0) mmol/L Magnesium (1.6-2.3) mg/dL Thrombosis Risk Factor Assmnt - DVT/VTE Prophylaxis DVT/VTE Prophylaxis: Pharmacologic Prophylaxis ordered, Mechanical Prophylaxis ordered Assessment and Plan Assessment: Assessment and plan: 1. Acute kidney injury with chronic kidney disease stage IIIa. we will continue with IVF 0.9 at 100 cc/h and we will continue with monitoring input and output and daily weight, we will obtain nephrology consul. 2. Recent MRSA UTI failed outpatient management. Post treatment with IV Vancomycin with ID consult . 3. Dizzines. Multifactorial with an element of adrenal insuficiency is hard to rule out. we will continue with IVF 1000 ml /h and we will continue with Prednisone 20 mg orally daily. 4. History of sepsis, bacteremia secondary to left third toe gangrene with underlying osteomyelitis status post amputation 02/28/2020. Stable. 5. Chronic anemia of chronic illness, currently stable. Continue iron 325 mg daily. 6. Recent history of stomal bleed. No active bleeding at this time. 7. Chronic kidney disease stage 3a. Avoid nephrotoxic agents.we will continue to monitor CMP. 8. Diabetes mellitus type 2. Continue NovoLog scale before meals and at bedtime and we will continue with Tradjenta 5 mg orally daily. 9. Hepatitis C in remission, stable. 10. Crohn's disease status post ileostomy in 2007 on chronic prednisone 20 mg daily. 11. Generalized anxiety disorder and recurrent depression. Continue Xanax 1 mg twice daily and Zoloft 100 mg at bedtime, Remeron 15 mg at bedtime. 12. Hypertension hypertensive cardiovascular disease. was taken off amlodipine due to hypotension. 13. Vitamin deficiencies. Continue vitamin D supplement. 14. Chronic gout. Continue allopurinol 100 mg daily. 15. Hyperlipidemia. Continue Lipitor 20 mg at bedtime. 16. Chronic thrombocytopenia. stable. 17. GI prophylaxis. Protonix 40 mg orally daily. 18. DVT prophylaxis. Knee-high CRISTHIAN hose and Heparin 5000 units SC Q 12 hours. 19. Patient admitted to the hospital for a minimum of 2 night stay. 20. Full code. 21. Discharge plan. Home [facility].
[2020-07-26 05:49] LABS: Glucose,Whole Blood 100 mg/dL (75-99)
[2020-07-26] MEDS: INSULIN ASPART (NovoLOG) 100 UNIT/ML VIAL SQ SCH ×4 (06:01→20:24)
[2020-07-26] MEDS: PANTOPRAZOLE 40 MG TABLET PO SCH (06:11)
[2020-07-26 08:39] LABS: Calcium 8.3 mg/dL (8.4-10.2); Potassium 3.7 mmol/L (3.5-5.1)
[2020-07-26] MEDS: SODIUM BICARBONATE TAB 650 MG TAB PO SCH ×3 (08:57→20:24)
[2020-07-26] MEDS: FERROUS SULFATE 325 MG TAB PO SCH (08:57)
[2020-07-26] MEDS: CALCIUM CARBONATE 500 MG CHEWABLE PO SCH (08:57)
[2020-07-26] MEDS: ASCORBIC ACID 500 MG TAB PO SCH (08:57)
[2020-07-26] MEDS: FOLIC ACID 1 MG TAB PO SCH (08:57)
[2020-07-26] MEDS: LINAGLIPTIN 5 MG TABLET PO SCH (08:57)
[2020-07-26] MEDS: ALPRAZolam 1 MG TAB PO SCH ×2 (08:57→20:24)
[2020-07-26] MEDS: MAGNESIUM OXIDE 400 MG TAB PO SCH (08:57)
[2020-07-26] MEDS: predniSONE 20 MG TAB PO SCH (08:57)
[2020-07-26] MEDS: CHOLECALCIFEROL 25 MCG (1000 IU) TABLET PO SCH (08:57)
[2020-07-26] MEDS: CYANOCOBALAMIN 500 MCG TAB PO SCH (08:57)
[2020-07-26] MEDS: ATORVASTATIN 20 MG TAB PO SCH (08:57)
[2020-07-26] MEDS: allopurinoL 100 MG TAB PO SCH (08:57)
[2020-07-26 09:08] LABS: Anisocytosis Slight; HCT 35.4 % (34.0-46.0); MCH 33.8 pg (25.0-35.0); MCHC 32.9 g/dL (31.0-37.0); MCV 102.6 fL (80.0-100.0); Macrocytosis Moderate; Mean Platelet Volume 8.3; Poikilocytosis Slight; RBC 3.45 m/uL (3.80-5.40); RDW 16.5 % (11.5-15.5); WBC 8.4 k/uL (3.8-10.6)
[2020-07-26 09:14] LABS: HGB 11.7 gm/dL (11.4-16.0)
[2020-07-26 09:43] LABS: Platelet Count 90 k/uL (150-450)
--- NOTE | 2020-07-26 10:00 | P.NPCON ---
History of Present Illness - Reason for Consult acute renal failure - History of Present Illness Reason for consultation: Acute kidney injury History of present illness: Patient is a 64-year-old female seen in renal consultation for acute kidney injury. Patient's creatinine was 2.56 on admission and is 1.61 today. Patient presented to the hospital with generalized weakness. Vision states she was havi ng difficult time standing on her legs and moving around. She does use a walker at home. She has required blood transfusions in the past and thought she needed more blood. Hemoglobin was 15.9 on admission and is 11.7 today. She denies any melena or hematochezia. No vomiting or diarrhea. Oral intake has been just fair. She is receiving IV fluids. Blood pressure stable. No fever or chills. No cough. No evidence of hydronephrosis noted on kidney ultrasound. Left kidney noted to be small in size. She was taking Lasix at home which is currently held. Denies use of nonsteroidals. Vital signs are stable. General: The patient appeared well nourished and normally developed. HEENT: Head exam is unremarkable. Neck is without jugular venous distension. LUNGS: Breath sounds decreased. HEART: Rate and Rhythm are regular. ABDOMEN: Soft, nontender. EXTREMITITES: No edema. Past Medical History Past Medical History: Blood Disorder, Diabetes Mellitus, GERD/Reflux, Hyperlipidemia, Hypertension, Liver Disease, Osteoarthritis (OA), Renal Disease Additional Past Medical History / Comment(s): crohns, hx. hep c, past hx. seps is & ards 2007, has ileostomy, hx. kidney stones, hx. of infection,has spacer in, hx. anemia related to intermittent bleeding from stoma, has past hx., uti , low platelets septicemia. CHRONIC KIDNEY DISEASE. History of Any Multi-Drug Resistant Organisms: MRSA Date of last positivie culture/infection: 04/25/16 MDRO Source:: Blood & Right Hip Past Surgical History: Appendectomy, Bowel Resection, Cholecystectomy, Hernia Repair, Hysterectomy, Tubal Ligation Additional Past Surgical History / Comment(s): ileostomy 2009 WITH 3-4 RE- SUTURING EPISODES RELATED TO BLEEDING, ileoscopy w/argon gas coagulation of stoma, 10-22-16 revison rt toal hip arthroplasty Past Anesthesia/Blood Transfusion Reactions: No Reported Reaction Past Psychological History: Anxiety Smoking Status: Never smoker Past Alcohol Use History: None Reported Past Drug Use History: None Reported - Past Family History Mother Family Medical History: CVA/TIA, Diabetes Mellitus Additional Family Medical History / Comment(s): Mother at age 88 from CVA. Sister(s) Additional Family Medical History / Comment(s): Patient has 3 sisters with no major medical problems. Patient does not have any brothers. Patient has 2 sons with no major medical problems. Father Family Medical History: Cancer Additional Family Medical History / Comment(s): . Medications and Allergies Home Medications Medication Instructions Recorded Confirmed Type Sertraline HCl [Zoloft] 100 mg PO HS 07/26/17 07/25/20 History Ferrous Sulfate [Iron (65 MG 325 mg PO DAILY 06/19/19 07/25/20 History Elemental)] Magnesium Oxide [Mag-Ox] 250 mg PO DAILY 06/19/19 07/25/20 History predniSONE [Deltasone] 20 mg PO DAILY #30 tab 06/30/19 07/25/20 Rx Rosuvastatin [Crestor] 10 mg PO DAILY 01/26/20 07/25/20 History allopurinoL [Zyloprim] 100 mg PO DAILY 01/26/20 07/25/20 History sitaGLIPtin PHOSPHATE [Januvia] 50 mg PO DAILY 01/26/20 07/25/20 History ALPRAZolam [Xanax] 1 mg PO BID 06/06/20 07/25/20 History Folic Acid 0.4 mg PO DAILY 06/06/20 07/25/20 History Mirtazapine [Remeron] 15 mg PO HS 06/06/20 07/25/20 History Sodium Bicarbonate Tab 650 mg PO TID 06/06/20 07/25/20 History Pantoprazole [Protonix] 40 mg PO EMILY-BRKFST #30 tablet. 06/13/20 07/25/20 Rx Ascorbic Acid [Vitamin C] 500 mg PO DAILY 07/25/20 07/25/20 History Calcium Carbonate [Tums] 1,000 mg PO DAILY 07/25/20 07/25/20 History Cholecalciferol [Vitamin D3 (25 25 mcg PO DAILY 07/25/20 07/25/20 History Mcg = 1000 Iu)] Cyanocobalamin (Vitamin B-12) 1,000 mcg PO DAILY 07/25/20 07/25/20 History [Vitamin B-12] Furosemide [Lasix] 40 mg PO MOWEFR 07/25/20 07/25/20 History Allergies Allergy/AdvReac Type Severity Reaction Status Date / Time adhesive tape Allergy Severe Rash/Hives/Skin Verified 07/25/20 11:55 Peeling levofloxacin [From Levaquin] Allergy Severe Swelling/ra Verified 07/25/20 11:55 sh Quinolones Allergy Severe Anaphylaxis Verified 07/25/20 11:55 /Swelling enoxaparin [From Lovenox] Allergy GI bleed Verified 07/25/20 11:55 NSAIDS (Non-Steroidal AdvReac Severe GI Verified 07/25/20 11:55 Anti-Inflamma Bleeding/Liver Damage warfarin [From Coumadin] AdvReac Severe Abdominal Verified 07/25/20 11:55 Pain Physical Exam Vitals: Vital Signs Temp Pulse Pulse Resp BP BP Pulse Ox 07/26/20 08:00 97.9 F 81 16 116/66 93 L 07/26/20 03:40 84 18 106/71 93 L 07/26/20 01:25 95 18 07/25/20 23:17 95 18 114/75 93 L 07/25/20 20:00 97.9 F 103 H 20 110/76 96 07/25/20 15:00 97.1 F L 103 H 18 122/80 96 07/25/20 13:42 98.3 F 108 H 20 128/87 96 07/25/20 12:59 116 H 20 122/87 96 07/25/20 11:54 122 H 20 124/89 91 L 07/25/20 10:57 98 F 123 H 18 150/87 92 L Intake and Output 07/25/20 07/26/20 07/26/20 22:59 06:59 14:59 Intake Total 240 Output Total 250 200 Balance -10 -200 Intake: Oral 240 Output: Gastric Drainage 200 Urine 250 Other: Voiding Method Bedside Commode Bedside Commode Bedside Commode # Voids 1 1 Weight 65.5 kg Results - Lab Results Most recent lab results Calcium 8.3 mg/dL (8.4-10.2) L 07/26/20 07:42 Magnesium 1.5 mg/dL (1.6-2.3) L 07/25/20 11:59 07/26/20 07:42 07/26/20 07:42 Assessment and Plan Plan: Assessment: 1. Acute kidney injury mostly prerenal improving with IV hydration. Creatinine was 2.56 on admission and is 1.61 today. Baseline creatinine near 1 from April 2020. Left kidney smaller in size but no evidence of hydronephrosis noted. 2. Generalized weakness. 3. Hypovolemic hyponatremia improved with IV hydration. 4. Metabolic acidosis secondary to acute kidney injury. Resolved. Maintained on oral bicarbonate. 5. Hypomagnesemia from poor intake. Maintain on oral magnesium oxide. 6. UTI maintained on antibiotics. Urine culture pending. 7. Diabetes mellitus. Plan: Maintain IV fluids. Follow-up cultures. Check magnesium level today. Avoid nephrotoxins. Continue to monitor renal function and urine output. Thank you for the consultation. I will continue to follow patient with you during her hospital stay.
[2020-07-26 11:41] LABS: Glucose,Whole Blood 152 mg/dL (75-99)
--- NOTE | 2020-07-26 14:15 | P.PN ---
Subjective Progress Note Date: 07/26/20 This is a 64-year-old female with past medical history of Crohn's disease status post ileostomy, type 2 diabetes, hepatitis C liver disease, osteoarthritis history of kidney stones, chronic iron deficiency anemia, with an issue with stomal bleed on and off. She was hospitalized in February 2020 which time she underwent an amputation of the left third toe due to gangrene and underlying osteomyelitis by Dr. Briones. She was maintained on IV antibiotics with Kefzol for a 6 week course and was transitomed into oral Keflex and she was admitted to the ICU about a month ago thought due to gram negative pneumonia and she was released home, has been having issues with dizziness on and off and she she was recently seen by nephrology due to GUANACO on CKD 3a and she was taken off her lasiix completely and she was supposed to be drinking more water, which she has been doing well with that, she was hospitalized in 06/06/2020 for dehydration and UTI and she was followed with me as an outpatient and had the [facility] for [facility] visit, patient started to have increased swelling and she was told to go back on lasix 3 times per week, she called me the yesterday stating that she is very weak and she wanted to come to see me, but today after talking to her on the phone she sounded very weak and I urged her to come to the ER instead, she was found to have acute kidney injury with BUN 117 and creatinine of 2.5 , she as started on IVF 0.9 saline at 100 cc/h and she was admitted to the hospital for evaluation by nephrology. 2/2: Patient denies any shortness of breath at this point. No cough or sputum production. No lower extremity edema. She has not had any blood from her stoma. Fever or chills. Repeat laboratory today reveals improvement of her renal function with BUN of 84 and creatinine 1.61. Elective lites are normal. Hemoglobin 11.7 and platelet count 90. Blood sugars are running between 100- 136. Patient is afebrile, heart rate 83, blood pressure 143/75, pulse ox 95% on room air. Patient is followed by nephrology. Renal ultrasound reveals diminutive right kidney. Patient has been evaluated by therapies with recommendations for home with home care. Objective - Vital Signs Vital signs: Vital Signs Temp 97.9 F 07/25/20 20:00 Pulse 84 07/26/20 03:40 Resp 18 07/26/20 03:40 BP 106/71 07/26/20 03:40 Pulse Ox 93 L 07/26/20 03:40 Intake & Output 07/25/20 07/25/20 07/26/20 06:59 18:59 06:59 Intake Total 240 Output Total 450 Balance 240 -450 Weight 68.492 kg 65.5 kg Intake: Oral 240 Output: Gastric Drainage 200 Urine 250 Other: Voiding Method Bedside Commode # Voids 2 1 - Exam Review of Systems Constitutional: Reports anorexia, Reports fatigue, Reports lethargy, Reports weakness Eyes: denies blurred vision, denies bulging eye, denies decreased vision Ears, nose, mouth and throat: Denies dysphagia, Denies neck lump, Denies sore throat Cardiovascular: Denies chest pain, Denies decreased exercise tolerance, Denies dyspnea on exertion, Denies leg edema, Denies rapid heart beat, Denies shortness of breath, Denies syncope Respiratory: Denies congestion, Denies cough, Denies cough with sputum, Denies home oxygen, Denies sleep apnea, Denies snoring, Denies wheezing Gastrointestinal: Reports diarrhea, Reports loss of appetite, Denies abdominal pain, Denies bloating, Denies BRBPR, Denies heartburn, Denies hematemesis, Denies melena, Denies nausea, Denies vomiting Genitourinary: Denies dysuria, Denies nocturia Menstruation: Reports postmenopausal Musculoskeletal: Reports atrophy, Reports gait dysfunction, Reports low back pa in, Reports morning stiffness Musculoskeletal: absent: ankle pain, ankle stiffness, ankle swelling, elbow pain, elbow stiffness, elbow swelling, foot pain, foot stiffness, foot swelling, hand pain, hand stiffness, hand swelling, hip pain, hip stiffness, hip swelling, knee pain, knee stiffness, knee swelling, shoulder pain, shoulder stiffness, shoulder swelling, wrist pain, wrist stiffness, wrist swelling Integumentary: Denies pruritus, Denies rash Neurological: Reports gait dysfunction, Reports vertigo Psychiatric: Reports anxiety, Reports depression, Denies sadness/tearfulness, Denies sleep disturbances, Denies suicidal ideation Endocrine: Denies fatigue, Denies weight change Physical examination: Gen: This is a 64-year-old female. Patient is resting in bed. HEENT: Head is atraumatic, normocephalic. Pupils equal, round, reactive to light and accommodations , sclera non icteric, mucous membranes of the mouth are somewhat dry. NECK: Supple. No JVD. No lymphadenopathy. No thyromegaly. LUNGS: decreased breath sounds at the bases with few ronchi, no expirtory wheezes, no intercostal retractions. HEART: First heart sound is depressed, second heart sound is normal, 2/6 systolic ejection murmur at the left sternal border. ABDOMEN: Soft. Bowel sounds are present. No masses. No tenderness. Ostomy is pink, no active bleeding, brown stool in ostomy bag EXTREMITIES: No pedal edema. No calf tenderness. Dorsalis pedis +1 bilaterally. Left thrid toe amputation wound is healed, no drainage, no bleeding. No significant erythema or edema. NEUROLOGICAL: Patient is awake, alert and oriented x3. Cranial nerves 2 through 12 are grossly intact, muscle power 4/5 in bilateral upper and lower extremities bilaterally, deep tendon reflexes were depressed bilaterally with bilateral neuropathic changes in both feet. - Labs CBC & Chem 7: 07/26/20 07:42 07/26/20 07:42 Labs: Abnormal Lab Results - Last 24 Hours (Table) 07/25/20 07/25/20 07/25/20 Range/Units 11:59 11:59 11:59 WBC 18.2 H (3.8-10.6) k/uL Hct 46.2 H (34.0-46.0) % RDW 16.5 H (11.5-15.5) % Plt Count 129 L (150-450) k/uL Neutrophils # 14.8 H (1.3-7.7) k/uL INR 1.2 H (<1.2) APTT 20.7 L (22.0-30.0) sec Sodium 130 L (137-145) mmol/L Chloride 93 L (98-107) mmol/L Carbon Dioxide 20 L (22-30) mmol/L BUN 117 H* (7-17) mg/dL Creatinine 2.56 H (0.52-1.04) mg/dL Glucose 272 H (74-99) mg/dL POC Glucose (mg/dL) (75-99) mg/dL Plasma Lactic Acid Catrachito (0.7-2.0) mmol/L Magnesium 1.5 L (1.6-2.3) mg/dL Urine Appearance (Clear) Urine Protein (Negative) Urine Blood (Negative) Ur Leukocyte Esterase (Negative) Urine RBC (0-5) /hpf Urine WBC (0-5) /hpf Urine WBC Clumps (None) /hpf Ur Squamous Epith Cells (0-4) /hpf Urine Bacteria (None) /hpf Hyaline Casts (0-2) /lpf Urine Mucus (None) /hpf 07/25/20 07/25/20 07/25/20 Range/Units 11:59 12:36 16:39 WBC (3.8-10.6) k/uL Hct (34.0-46.0) % RDW (11.5-15.5) % Plt Count (150-450) k/uL Neutrophils # (1.3-7.7) k/uL INR (<1.2) APTT (22.0-30.0) sec Sodium (137-145) mmol/L Chloride (98-107) mmol/L Carbon Dioxide (22-30) mmol/L BUN (7-17) mg/dL Creatinine (0.52-1.04) mg/dL Glucose (74-99) mg/dL POC Glucose (mg/dL) 291 H (75-99) mg/dL Plasma Lactic Acid Catrachito 2.3 H* (0.7-2.0) mmol/L Magnesium (1.6-2.3) mg/dL Urine Appearance Cloudy H (Clear) Urine Protein 3+ H (Negative) Urine Blood Small H (Negative) Ur Leukocyte Esterase Large H (Negative) Urine RBC 6 H (0-5) /hpf Urine WBC 167 H (0-5) /hpf Urine WBC Clumps Few H (None) /hpf Ur Squamous Epith Cells 15 H (0-4) /hpf Urine Bacteria Occasional H (None) /hpf Hyaline Casts 6 H (0-2) /lpf Urine Mucus Rare H (None) /hpf 07/25/20 07/26/20 Range/Units 20:22 05:47 WBC (3.8-10.6) k/uL Hct (34.0-46.0) % RDW (11.5-15.5) % Plt Count (150-450) k/uL Neutrophils # (1.3-7.7) k/uL INR (<1.2) APTT (22.0-30.0) sec Sodium (137-145) mmol/L Chloride (98-107) mmol/L Carbon Dioxide (22-30) mmol/L BUN (7-17) mg/dL Creatinine (0.52-1.04) mg/dL Glucose (74-99) mg/dL POC Glucose (mg/dL) 236 H 100 H (75-99) mg/dL Plasma Lactic Acid Catrachito (0.7-2.0) mmol/L Magnesium (1.6-2.3) mg/dL Urine Appearance (Clear) Urine Protein (Negative) Urine Blood (Negative) Ur Leukocyte Esterase (Negative) Urine RBC (0-5) /hpf Urine WBC (0-5) /hpf Urine WBC Clumps (None) /hpf Ur Squamous Epith Cells (0-4) /hpf Urine Bacteria (None) /hpf Hyaline Casts (0-2) /lpf Urine Mucus (None) /hpf Microbiology - Last 24 Hours (Table) 07/25/20 12:36 Urine Culture - Preliminary Urine,Voided Assessment and Plan Assessment: Assessment and plan: 1. Acute kidney injury with chronic kidney disease stage IIIa proving. we will continue with IVF 0.9 at 100 cc/h and we will continue with monitoring input and output and daily weight, neurology consult appreciated. Avoid nephrotoxic agents. 2. Recent MRSA UTI failed outpatient management. Post treatment with IV Vancomycin with ID consult . 3. Dizzines. Multifactorial with an element of adrenal insuficiency is hard to rule out. we will continue with IVF 1000 ml /h and we will continue with Prednisone 20 mg orally daily. 4. Acute urinary tract infection. Patient is on Rocephin. Await urine culture results. 5. History of sepsis, bacteremia secondary to left third toe gangrene with underlying osteomyelitis status post amputation 02/28/2020. Stable. 6. Chronic anemia of chronic illness, currently stable. Continue iron 325 mg daily. 7. Recent history of stomal bleed. No active bleeding at this time. 8. Chronic kidney disease stage 3a. Avoid nephrotoxic agents.we will continue to monitor CMP. 9. Diabetes mellitus type 2. Continue NovoLog scale before meals and at bedtime and we will continue with Tradjenta 5 mg orally daily. 10. Hepatitis C in remission, stable. 11. Crohn's disease status post ileostomy in 2007 on chronic prednisone 20 mg daily. 12. Generalized anxiety disorder and recurrent depression. Continue Xanax 1 mg twice daily and Zoloft 100 mg at bedtime, Remeron 15 mg at bedtime. 13. Hypertension hypertensive cardiovascular disease. was taken off amlodipine due to hypotension. 14. Vitamin deficiencies. Continue vitamin D supplement. 15. Chronic gout. Continue allopurinol 100 mg daily. 16. Hyperlipidemia. Continue Lipitor 20 mg at bedtime. 17. Chronic thrombocytopenia. stable. 18. GI prophylaxis. Protonix 40 mg orally daily. 19. DVT prophylaxis. Knee-high CRISTHIAN hose and Heparin 5000 units SC Q 12 hours. 20. [facility].
[2020-07-26 16:37] LABS: Glucose,Whole Blood 216 mg/dL (75-99)
[2020-07-26] MEDS: SODIUM CHLORIDE 0.9% 1,000 ML IV SCH ×2 (17:36→20:25)
[2020-07-26 20:07] LABS: Glucose,Whole Blood 206 mg/dL (75-99)
[2020-07-26] MEDS: MIRTAZAPINE 15 MG TAB PO SCH (20:24)
[2020-07-26] MEDS: SERTRALINE 100 MG TAB PO SCH (20:24)
[2020-07-27 06:16] LABS: Glucose,Whole Blood 89 mg/dL (75-99)
[2020-07-27] MEDS: PANTOPRAZOLE 40 MG TABLET PO SCH (06:46)
[2020-07-27] MEDS: INSULIN ASPART (NovoLOG) 100 UNIT/ML VIAL SQ SCH ×4 (06:46→20:33)
[2020-07-27 07:39] LABS: Anisocytosis Slight; HGB 11.1 gm/dL (11.4-16.0); MCH 33.9 pg (25.0-35.0); MCHC 32.8 g/dL (31.0-37.0); MCV 103.5 fL (80.0-100.0); Macrocytosis Moderate; Mean Platelet Volume 7.6; Poikilocytosis Slight; RBC 3.28 m/uL (3.80-5.40); RDW 16.6 % (11.5-15.5); WBC 5.7 k/uL (3.8-10.6)
[2020-07-27 07:43] LABS: Platelet Count 84 k/uL (150-450)
[2020-07-27 07:49] LABS: Calcium 8.2 mg/dL (8.4-10.2); Magnesium 1.4 mg/dL (1.6-2.3); Potassium 3.7 mmol/L (3.5-5.1)
--- NOTE | 2020-07-27 08:30 | P.PN ---
Subjective Patient is seen in follow for acute kidney injury. Renal function continues to improve. No vomiting or diarrhea. Oral intake slowly improving. Good urine output. Vital signs are stable. General: The patient appeared well nourished and normally developed. HEENT: Head exam is unremarkable. Neck is without jugular venous distension. LUNGS: Breath sounds decreased. HEART: Rate and Rhythm are regular. ABDOMEN: Soft, nontender. EXTREMITITES: No edema. Objective - Vital Signs Vital signs: Vital Signs Temp 97.7 F 07/27/20 08:00 Pulse 74 07/27/20 08:00 Resp 18 07/27/20 08:00 BP 106/68 07/27/20 08:00 Pulse Ox 93 L 07/27/20 08:00 Intake & Output 07/26/20 07/27/20 07/27/20 18:59 06:59 18:59 Intake Total 660 1000 240 Output Total 150 200 Balance 510 800 240 Weight 70.5 kg Intake: Intake, IV Titration 1000 Amount Sodium Chloride 0.9% 1, 1000 000 ml @ 100 mls/hr IV . Q10H DARIA Rx#:[id number] Oral 660 240 Output: Urine 200 Stool 150 Other: Voiding Method Bedside Commode Bedside Commode # Voids 1 - Labs CBC & Chem 7: 07/27/20 07:02 07/27/20 07:02 Labs: Abnormal Lab Results - Last 24 Hours (Table) 07/26/20 07/26/20 07/26/20 Range/Units 07:42 07:42 11:40 RBC 3.45 L (3.80-5.40) m/uL Hgb (11.4-16.0) gm/dL MCV 102.6 H (80.0-100.0) fL RDW 16.5 H (11.5-15.5) % Plt Count 90 L (150-450) k/uL Sodium (137-145) mmol/L BUN 84 H (7-17) mg/dL Creatinine 1.61 H (0.52-1.04) mg/dL POC Glucose (mg/dL) 152 H (75-99) mg/dL Calcium 8.3 L (8.4-10.2) mg/dL Magnesium (1.6-2.3) mg/dL 02/02/21 02/02/21 02/03/21 Range/Units 16:36 20:05 07:02 RBC (3.80-5.40) m/uL Hgb (11.4-16.0) gm/dL MCV (80.0-100.0) fL RDW (11.5-15.5) % Plt Count (150-450) k/uL Sodium 136 L (137-145) mmol/L BUN 55 H (7-17) mg/dL Creatinine 1.21 H (0.52-1.04) mg/dL POC Glucose (mg/dL) 216 H 206 H (75-99) mg/dL Calcium 8.2 L (8.4-10.2) mg/dL Magnesium 1.4 L (1.6-2.3) mg/dL 07/27/20 Range/Units 07:02 RBC 3.28 L (3.80-5.40) m/uL Hgb 11.1 L (11.4-16.0) gm/dL MCV 103.5 H (80.0-100.0) fL RDW 16.6 H (11.5-15.5) % Plt Count 84 L (150-450) k/uL Sodium (137-145) mmol/L BUN (7-17) mg/dL Creatinine (0.52-1.04) mg/dL POC Glucose (mg/dL) (75-99) mg/dL Calcium (8.4-10.2) mg/dL Magnesium (1.6-2.3) mg/dL Microbiology - Last 24 Hours (Table) 07/25/20 12:36 Urine Culture - Final Urine,Voided Assessment and Plan Plan: Assessment: 1. Acute kidney injury mostly prerenal improving with IV hydration. Creatinine was 2.56 on admission and is 1.21 today. Baseline creatinine near 1 from April 2020. Left kidney smaller in size but no evidence of hydronephrosis noted. 2. Generalized weakness. 3. Hypovolemic hyponatremia improved with IV hydration. 4. Metabolic acidosis secondary to acute kidney injury and IV fluids. Maintained on oral bicarbonate. 5. Hypomagnesemia from poor intake. Maintained on oral magnesium oxide. 6. UTI maintained on antibiotics. Urine culture positive for skin carina. 7. Diabetes mellitus. Plan: Decrease rate of normal saline to 50 mL an hour. Replace magnesium. 2 g IV magnesium sulfa today. Encourage oral intake. Avoid nephrotoxins. Continue to monitor renal function and urine output.
[2020-07-27] MEDS ORDERED: Magnesium Replacement Protocol 1 EACH MISC MISCELLANE PRN (09:20)
[2020-07-27] MEDS: allopurinoL 100 MG TAB PO SCH (10:29)
[2020-07-27] MEDS: ALPRAZolam 1 MG TAB PO SCH ×2 (10:29→20:20)
[2020-07-27] MEDS: ASCORBIC ACID 500 MG TAB PO SCH (10:30)
[2020-07-27] MEDS: CALCIUM CARBONATE 500 MG CHEWABLE PO SCH (10:30)
[2020-07-27] MEDS: ATORVASTATIN 20 MG TAB PO SCH (10:30)
[2020-07-27] MEDS: CHOLECALCIFEROL 25 MCG (1000 IU) TABLET PO SCH (10:31)
[2020-07-27] MEDS: CYANOCOBALAMIN 500 MCG TAB PO SCH (10:31)
[2020-07-27] MEDS: FERROUS SULFATE 325 MG TAB PO SCH (10:31)
[2020-07-27] MEDS: FOLIC ACID 1 MG TAB PO SCH (10:32)
[2020-07-27] MEDS: LINAGLIPTIN 5 MG TABLET PO SCH (10:34)
[2020-07-27] MEDS: predniSONE 20 MG TAB PO SCH (10:34)
[2020-07-27] MEDS: SODIUM BICARBONATE TAB 650 MG TAB PO SCH ×3 (10:35→20:20)
--- NOTE | 2020-07-27 12:06 | P.PN ---
Subjective Progress Note Date: 07/27/20 This is a 64-year-old female with past medical history of Crohn's disease status post ileostomy, type 2 diabetes, hepatitis C liver disease, osteoarthritis history of kidney stones, chronic iron deficiency anemia, with an issue with stomal bleed on and off. She was hospitalized in February 2020 which time she underwent an amputation of the left third toe due to gangrene and underlying osteomyelitis by Dr. Briones. She was maintained on IV antibiotics with Kefzol for a 6 week course and was transitomed into oral Keflex and she was admitted to the ICU about a month ago thought due to gram negative pneumonia and she was released home, has been having issues with dizziness on and off and she she was recently seen by nephrology due to GUANACO on CKD 3a and she was taken off her lasiix completely and she was supposed to be drinking more water, which she has been doing well with that, she was hospitalized in 06/06/2020 for dehydration and UTI and she was followed with me as an outpatient and had the [facility] for 3 visit, patient started to have increased swelling and she was told to go back on lasix 3 times per week, she called me the yesterday stating that she is very weak and she wanted to come to see me, but today after talking to her on the phone she sounded very weak and I urged her to come to the ER instead, she was found to have acute kidney injury with BUN 117 and creatinine of 2.5 , she as started on IVF 0.9 saline at 100 cc/h and she was admitted to the hospital for evaluation by nephrology. 2/2: Patient denies any shortness of breath at this point. No cough or sputum production. No lower extremity edema. She has not had any blood from her stoma. Fever or chills. Repeat laboratory today reveals improvement of her renal function with BUN of 84 and creatinine 1.61. Elective lites are normal. Hemoglobin 11.7 and platelet count 90. Blood sugars are running between 100- 136. Patient is afebrile, heart rate 83, blood pressure 143/75, pulse ox 95% on room air. Patient is followed by nephrology. Renal ultrasound reveals diminutive right kidney. Patient has been evaluated by therapies with recommendations for home with home care. 2/3: Patient has been maintained on IV fluids of 0.9 normal saline at 50 mL per hour. She is also maintained on ceftriaxone. Repeat blood work today reveals improvement of her renal function with BUN of 55 and creatinine 1.21. Hemoglobin 11.1. Blood sugars yesterday afternoon were running low 200, this morning 89. Magnesium is been replaced. Patient is eating fairly well. No vomiting or diarrhea. She is denying abdominal pain. She has normal output from her ileostomy and good urine output. Patient is not wearing an eye patch on her left eye because it is scratchy. Patient has been afebrile, heart rate 74, blood pressure 106/68, pulse ox 93% on room air. Urine culture was finalized with skin carina Objective - Vital Signs Vital signs: Vital Signs Temp 97.7 F 07/27/20 08:00 Pulse 74 07/27/20 08:30 Resp 18 07/27/20 08:30 BP 106/68 07/27/20 08:00 Pulse Ox 93 L 07/27/20 08:00 Intake & Output 07/26/20 07/27/20 07/27/20 18:59 06:59 18:59 Intake Total 660 1000 240 Output Total 150 200 Balance 510 800 240 Weight 70.5 kg Intake: Intake, IV Titration 1000 Amount Sodium Chloride 0.9% 1, 1000 000 ml @ 100 mls/hr IV . Q[facility]H [facility] Rx#:[id number] Oral 660 240 Output: Urine 200 Stool 150 Other: Voiding Method Bedside Commode Bedside Commode Bedside Commode # Voids 1 - Exam Review of Systems Constitutional: Reports anorexia-improving, Reports fatigue, Reports lethargy, Reports weakness Eyes: denies blurred vision, denies bulging eye, denies decreased vision Ears, nose, mouth and throat: Denies dysphagia, Denies neck lump, Denies sore throat Cardiovascular: Denies chest pain, Denies decreased exercise tolerance, Denies dyspnea on exertion, Denies leg edema, Denies rapid heart beat, Denies shortness of breath, Denies syncope Respiratory: Denies congestion, Denies cough, Denies cough with sputum, Denies home oxygen, Denies sleep apnea, Denies snoring, Denies wheezing Gastrointestinal: Reports diarrhea, Reports loss of appetite, Denies abdominal pain, Denies bloating, Denies BRBPR, Denies heartburn, Denies hematemesis, Denies melena, Denies nausea, Denies vomiting Genitourinary: Denies dysuria, Denies nocturia Menstruation: Reports postmenopausal Musculoskeletal: Reports atrophy, Reports gait dysfunction, Reports low back pa in, Reports morning stiffness Musculoskeletal: absent: ankle pain, ankle stiffness, ankle swelling, elbow pain, elbow stiffness, elbow swelling, foot pain, foot stiffness, foot swelling, hand pain, hand stiffness, hand swelling, hip pain, hip stiffness, hip swelling, knee pain, knee stiffness, knee swelling, shoulder pain, shoulder stiffness, shoulder swelling, wrist pain, wrist stiffness, wrist swelling Integumentary: Denies pruritus, Denies rash Neurological: Reports gait dysfunction, Reports vertigo Psychiatric: Reports anxiety, Reports depression, Denies sadness/tearfulness, Denies sleep disturbances, Denies suicidal ideation Endocrine: Denies fatigue, Denies weight change Physical examination: Gen: This is a 64-year-old female. Patient is resting in bed and appears to be comfortable. HEENT: Head is atraumatic, normocephalic. Pupils equal, round, reactive to light and accommodations , sclera non icteric, mucous membranes of the mouth are somewhat dry. NECK: Supple. No JVD. No lymphadenopathy. No thyromegaly. LUNGS: decreased breath sounds at the bases with few ronchi, no expirtory wheezes, no intercostal retractions. HEART: First heart sound is depressed, second heart sound is normal, 2/6 systolic ejection murmur at the left sternal border. ABDOMEN: Soft. Bowel sounds are present. No masses. No tenderness. Ostomy is pink, no active bleeding, brown stool in ostomy bag EXTREMITIES: No pedal edema. No calf tenderness. Dorsalis pedis +1 bilaterally. Left thrid toe amputation wound is healed, no drainage, no bleeding. No significant erythema or edema. NEUROLOGICAL: Patient is awake, alert and oriented x3. Cranial nerves 2 through 12 are grossly intact, muscle power 4/5 in bilateral upper and lower extremities bilaterally, deep tendon reflexes were depressed bilaterally with bilateral neuropathic changes in both feet. - Labs CBC & Chem 7: 07/28/20 07:21 07/28/20 07:21 Labs: Abnormal Lab Results - Last 24 Hours (Table) 07/26/20 07/26/20 07/26/20 Range/Units 11:40 16:36 20:05 RBC (3.80-5.40) m/uL Hgb (11.4-16.0) gm/dL MCV (80.0-100.0) fL RDW (11.5-15.5) % Plt Count (150-450) k/uL Sodium (137-145) mmol/L BUN (7-17) mg/dL Creatinine (0.52-1.04) mg/dL POC Glucose (mg/dL) 152 H 216 H 206 H (75-99) mg/dL Calcium (8.4-10.2) mg/dL Magnesium (1.6-2.3) mg/dL 07/27/20 07/27/20 Range/Units 07:02 07:02 RBC 3.28 L (3.80-5.40) m/uL Hgb 11.1 L (11.4-16.0) gm/dL MCV 103.5 H (80.0-100.0) fL RDW 16.6 H (11.5-15.5) % Plt Count 84 L (150-450) k/uL Sodium 136 L (137-145) mmol/L BUN 55 H (7-17) mg/dL Creatinine 1.21 H (0.52-1.04) mg/dL POC Glucose (mg/dL) (75-99) mg/dL Calcium 8.2 L (8.4-10.2) mg/dL Magnesium 1.4 L (1.6-2.3) mg/dL Microbiology - Last 24 Hours (Table) 07/25/20 12:36 Urine Culture - Final Urine,Voided Assessment and Plan Assessment: Assessment and plan: 1. Acute kidney injury with chronic kidney disease stage IIIa improving. we will continue with IVF 0.9 decreased to 50 cc/h and we will continue with monitoring input and output and daily weight, neurology consult appreciated. Avoid nephrotoxic agents. 2. Recent MRSA UTI failed outpatient management. Post treatment with IV Vancomycin with ID consult . 3. Dizzines. Multifactorial with an element of adrenal insuficiency is hard to rule out. we will continue with IVF and we will continue with Prednisone 20 mg orally daily. 4. Acute urinary tract infection. Patient is on Rocephin. Await urine culture results. 5. History of sepsis, bacteremia secondary to left third toe gangrene with underlying osteomyelitis status post amputation 02/28/2020. Stable. 6. Chronic anemia of chronic illness, currently stable. Continue iron 325 mg daily. 7. Recent history of stomal bleed. No active bleeding at this time. 8. Chronic kidney disease stage 3a. Avoid nephrotoxic agents.we will continue to monitor CMP. 9. Diabetes mellitus type 2. Continue NovoLog scale before meals and at bedtime and we will continue with Tradjenta 5 mg orally daily. 10. Hepatitis C in remission, stable. 11. Crohn's disease status post ileostomy in 2007 on chronic prednisone 20 mg daily. 12. Generalized anxiety disorder and recurrent depression. Continue Xanax 1 mg twice daily and Zoloft 100 mg at bedtime, Remeron 15 mg at bedtime. 13. Hypertension hypertensive cardiovascular disease. was taken off amlodipine due to hypotension. 14. Vitamin deficiencies. Continue vitamin D supplement. 15. Chronic gout. Continue allopurinol 100 mg daily. 16. Hyperlipidemia. Continue Lipitor 20 mg at bedtime. 17. Chronic thrombocytopenia. stable. 18. GI prophylaxis. Protonix 40 mg orally daily. 19. DVT prophylaxis. Knee-high CRISTHIAN hose and Heparin 5000 units SC Q 12 hours. 20. Conjunctivitis left eye. Patient started on Tobrex 2 drops left eye every 6 hours. Discharge plan: [facility]
[2020-07-27 12:17] LABS: Glucose,Whole Blood 99 mg/dL (75-99)
[2020-07-27] MEDS: MAGNESIUM SULFATE-D5W PMX 1 GM in DEXTROSE/WATER 1 100ML.BAG IVPB SCH ×2 (13:18→14:48)
[2020-07-27] MEDS: SODIUM CHLORIDE 0.9% 1,000 ML IV SCH ×2 (13:19→20:20)
[2020-07-27] MEDS ORDERED: MAGNESIUM SULFATE-D5W PMX 1 GM in DEXTROSE/WATER 1 100ML.BAG IVPB ONE (15:34)
[2020-07-27] MEDS: MAGNESIUM OXIDE 400 MG TAB PO SCH (15:52)
[2020-07-27] MEDS: HEPARIN SODIUM,PORCINE 5,000 UNIT/ML 1 ML VIAL SQ SCH (15:56)
[2020-07-27] MEDS: TOBRAMYCIN 0.3% OPHTH DROPS 5 ML BTL LEFT EYE SCH ×2 (15:59→16:11)
[2020-07-27 17:13] LABS: Glucose,Whole Blood 231 mg/dL (75-99)
[2020-07-27] MEDS: SERTRALINE 100 MG TAB PO SCH (20:20)
[2020-07-27] MEDS: MIRTAZAPINE 15 MG TAB PO SCH (20:20)
[2020-07-27 21:00] LABS: Glucose,Whole Blood 152 mg/dL (75-99)
[2020-07-28] MEDS: TOBRAMYCIN 0.3% OPHTH DROPS 5 ML BTL LEFT EYE SCH ×5 (00:01→23:05)
[2020-07-28] MEDS: HEPARIN SODIUM,PORCINE 5,000 UNIT/ML 1 ML VIAL SQ SCH ×2 (05:57→11:44)
[2020-07-28 06:18] LABS: Glucose,Whole Blood 87 mg/dL (75-99)
[2020-07-28] MEDS: PANTOPRAZOLE 40 MG TABLET PO SCH (06:45)
[2020-07-28] MEDS: INSULIN ASPART (NovoLOG) 100 UNIT/ML VIAL SQ SCH ×4 (06:46→20:26)
[2020-07-28 08:19] LABS: Anisocytosis Slight; Basophils % (A) 0 %; Eosinophils % (A) 1 %; HCT 36.5 % (34.0-46.0); HGB 11.8 gm/dL (11.4-16.0); Lymphocytes # (A) 1.4 k/uL (1.0-4.8); Lymphocytes % (A) 23 %; MCH 33.6 pg (25.0-35.0); MCHC 32.3 g/dL (31.0-37.0); MCV 104.1 fL (80.0-100.0); Macrocytosis Moderate; Mean Platelet Volume 7.6; Monocytes # (A) 0.3 k/uL (0-1.0); Monocytes % (A) 6 %; Neutrophils % (A) 68 %; Poikilocytosis Slight; RBC 3.51 m/uL (3.80-5.40); RDW 16.6 % (11.5-15.5); WBC 5.9 k/uL (3.8-10.6)
[2020-07-28 08:20] LABS: Albumin 3.3 g/dL (3.5-5.0); Calcium 8.4 mg/dL (8.4-10.2); Potassium 3.6 mmol/L (3.5-5.1); Total Bilirubin 0.5 mg/dL (0.2-1.3); Total Protein 6.2 g/dL (6.3-8.2)
[2020-07-28 08:37] LABS: Platelet Count 77 k/uL (150-450)
--- NOTE | 2020-07-28 09:02 | P.PN ---
Subjective Patient is seen in follow for acute kidney injury. Renal function continues to improve. No vomiting or diarrhea. Oral intake is good. Vital signs are stable. General: The patient appeared well nourished and normally developed. HEENT: Head exam is unremarkable. Neck is without jugular venous distension. LUNGS: Breath sounds decreased. HEART: Rate and Rhythm are regular. ABDOMEN: Soft, nontender. EXTREMITITES: No edema. Objective - Vital Signs Vital signs: Vital Signs Temp 98.1 F 07/28/20 08:00 Pulse 75 07/28/20 08:00 Resp 18 07/28/20 08:00 BP 133/64 07/28/20 08:00 Pulse Ox 95 07/28/20 08:00 Intake & Output 07/27/20 07/28/20 07/28/20 18:59 06:59 18:59 Intake Total 830 600 560 Output Total 350 300 Balance 480 600 260 Weight 74 kg Intake: Intake, IV Titration 350 600 Amount Magnesium Sulfate-D5w Pmx 100 1 gm In Dextrose/Water 1 100ml.bag @ 100 mls/hr IVPB ONCE ONE Rx#: [id number] Sodium Chloride 0.9% 1, 250 600 000 ml @ 50 mls/hr IV . Q20H [facility] Rx#:[id number] Oral 480 560 Output: Urine 200 300 Stool 150 Other: Voiding Method Bedside Commode Bedside Commode Bedside Commode # Voids 2 3 1 # Bowel Movements 1 - Labs CBC & Chem 7: 07/28/20 07:21 07/28/20 07:21 Labs: Abnormal Lab Results - Last 24 Hours (Table) 07/27/20 07/27/20 07/28/20 Range/Units 17:12 20:26 07:21 RBC (3.80-5.40) m/uL MCV (80.0-100.0) fL RDW (11.5-15.5) % Plt Count (150-450) k/uL Sodium 136 L (137-145) mmol/L BUN 32 H (7-17) mg/dL Creatinine 1.05 H (0.52-1.04) mg/dL Glucose 69 L (74-99) mg/dL POC Glucose (mg/dL) 231 H 152 H (75-99) mg/dL Total Protein 6.2 L (6.3-8.2) g/dL Albumin 3.3 L (3.5-5.0) g/dL 07/28/20 Range/Units 07:21 RBC 3.51 L (3.80-5.40) m/uL MCV 104.1 H (80.0-100.0) fL RDW 16.6 H (11.5-15.5) % Plt Count 77 L (150-450) k/uL Sodium (137-145) mmol/L BUN (7-17) mg/dL Creatinine (0.52-1.04) mg/dL Glucose (74-99) mg/dL POC Glucose (mg/dL) (75-99) mg/dL Total Protein (6.3-8.2) g/dL Albumin (3.5-5.0) g/dL Assessment and Plan Plan: Assessment: 1. Acute kidney injury mostly prerenal improving with IV hydration. Creatinine was 2.56 on admission and is 1.05 today. Baseline creatinine near 1 from April 2020. Left kidney smaller in size but no evidence of hydronephrosis noted. 2. Generalized weakness. 3. Hypovolemic hyponatremia improved with IV hydration. 4. Metabolic acidosis secondary to acute kidney injury and IV fluids. Maintain ed on oral bicarbonate. 5. Hypomagnesemia from poor intake. Maintained on oral magnesium oxide. Be tter. 6. UTI maintained on antibiotics. Urine culture positive for skin carina. 7. Diabetes mellitus. Plan: Heplock IVFs. Encourage oral intake. Avoid nephrotoxins. Continue to monitor renal function and urine output.
[2020-07-28] MEDS: CHOLECALCIFEROL 25 MCG (1000 IU) TABLET PO SCH (10:20)
[2020-07-28] MEDS: CALCIUM CARBONATE 500 MG CHEWABLE PO SCH (10:20)
[2020-07-28] MEDS: ASCORBIC ACID 500 MG TAB PO SCH (10:20)
[2020-07-28] MEDS: SODIUM BICARBONATE TAB 650 MG TAB PO SCH ×3 (10:21→20:25)
[2020-07-28] MEDS: ATORVASTATIN 20 MG TAB PO SCH (10:21)
[2020-07-28] MEDS: predniSONE 20 MG TAB PO SCH (10:21)
[2020-07-28] MEDS: allopurinoL 100 MG TAB PO SCH (10:21)
[2020-07-28] MEDS: ALPRAZolam 1 MG TAB PO SCH ×2 (10:21→20:25)
[2020-07-28] MEDS: LINAGLIPTIN 5 MG TABLET PO SCH (10:21)
[2020-07-28] MEDS: MAGNESIUM OXIDE 400 MG TAB PO SCH (10:21)
[2020-07-28] MEDS: FERROUS SULFATE 325 MG TAB PO SCH (10:27)
[2020-07-28] MEDS: FOLIC ACID 1 MG TAB PO SCH (10:27)
[2020-07-28] MEDS: CYANOCOBALAMIN 500 MCG TAB PO SCH (10:27)
[2020-07-28 12:09] LABS: Glucose,Whole Blood 154 mg/dL (75-99)
--- NOTE | 2020-07-28 14:16 | P.PN ---
Subjective Progress Note Date: 07/28/20 This is a 64-year-old female with past medical history of Crohn's disease status post ileostomy, type 2 diabetes, hepatitis C liver disease, osteoarthritis history of kidney stones, chronic iron deficiency anemia, with an issue with stomal bleed on and off. She was hospitalized in February 2020 which time she underwent an amputation of the left third toe due to gangrene and underlying osteomyelitis by Dr. Briones. She was maintained on IV antibiotics with Kefzol for a 6 week course and was transitomed into oral Keflex and she was admitted to the ICU about a month ago thought due to gram negative pneumonia and she was released home, has been having issues with dizziness on and off and she she was recently seen by nephrology due to GUANACO on CKD 3a and she was taken off her lasiix completely and she was supposed to be drinking more water, which she has been doing well with that, she was hospitalized in 06/06/2020 for dehydration and UTI and she was followed with me as an outpatient and had the [facility] for 3 visit, patient started to have increased swelling and she was told to go back on lasix 3 times per week, she called me the yesterday stating that she is very weak and she wanted to come to see me, but today after talking to her on the phone she sounded very weak and I urged her to come to the ER instead, she was found to have acute kidney injury with BUN 117 and creatinine of 2.5 , she as started on IVF 0.9 saline at 100 cc/h and she was admitted to the hospital for evaluation by nephrology. 2/2: Patient denies any shortness of breath at this point. No cough or sputum production. No lower extremity edema. She has not had any blood from her stoma. Fever or chills. Repeat laboratory today reveals improvement of her renal function with BUN of 84 and creatinine 1.61. Elective lites are normal. Hemoglobin 11.7 and platelet count 90. Blood sugars are running between 100- 136. Patient is afebrile, heart rate 83, blood pressure 143/75, pulse ox 95% on room air. Patient is followed by nephrology. Renal ultrasound reveals diminutive right kidney. Patient has been evaluated by therapies with recommendations for home with home care. 2/3: Patient has been maintained on IV fluids of 0.9 normal saline at 50 mL per hour. She is also maintained on ceftriaxone. Repeat blood work today reveals improvement of her renal function with BUN of 55 and creatinine 1.21. Hemoglobin 11.1. Blood sugars yesterday afternoon were running low 200, this morning 89. Magnesium is been replaced. Patient is eating fairly well. No vomiting or diarrhea. She is denying abdominal pain. She has normal output from her ileostomy and good urine output. Patient is not wearing an eye patch on her left eye because it is scratchy. Patient has been afebrile, heart rate 74, blood pressure 106/68, pulse ox 93% on room air. Urine culture was finalized with skin carina 07/28: Patient denies any nausea, vomiting or diarrhea. Her renal function continues to improve. BUN is 32 and creatinine 1.05. IV fluids and discontinue. Patient has been afebrile, heart rate 79, blood pressure 109/60, pulse ox 94% on room air. We'll check this morning was 69. Yesterday afternoon running between 87 and 231. Patient continues to wear eye patch on the left eye and continued on antibiotic eyedrops. Discharge plan is for [facility] tomorrow. Objective - Vital Signs Vital signs: Vital Signs Temp 98.0 F 07/28/20 11:48 Pulse 79 07/28/20 14:00 Resp 17 07/28/20 14:00 BP 109/60 07/28/20 11:48 Pulse Ox 94 L 07/28/20 11:48 Intake & Output 07/27/20 07/28/20 07/28/20 18:59 06:59 18:59 Intake Total 830 600 560 Output Total 350 300 Balance 480 600 260 Weight 74 kg Intake: Intake, IV Titration 350 600 Amount Magnesium Sulfate-D5w Pmx 100 1 gm In Dextrose/Water 1 100ml.bag @ 100 mls/hr IVPB ONCE ONE Rx#: [id number] Sodium Chloride 0.9% 1, 250 600 000 ml @ 50 mls/hr IV . Q20H [facility] Rx#:[id number] Oral 480 560 Output: Urine 200 300 Stool 150 Other: Voiding Method Bedside Commode Bedside Commode Bedside Commode # Voids 2 3 1 # Bowel Movements 1 - Exam Review of Systems Constitutional: Reports anorexia-improving, Reports fatigue, Reports lethargy, Reports weakness Eyes: denies blurred vision, denies bulging eye, denies decreased vision Ears, nose, mouth and throat: Denies dysphagia, Denies neck lump, Denies sore throat Cardiovascular: Denies chest pain, Denies decreased exercise tolerance, Denies dyspnea on exertion, Denies leg edema, Denies rapid heart beat, Denies shortness of breath, Denies syncope Respiratory: Denies congestion, Denies cough, Denies cough with sputum, Denies home oxygen, Denies sleep apnea, Denies snoring, Denies wheezing Gastrointestinal: Reports diarrhea, Reports loss of appetite, Denies abdominal pain, Denies bloating, Denies BRBPR, Denies heartburn, Denies hematemesis, Denies melena, Denies nausea, Denies vomiting Genitourinary: Denies dysuria, Denies nocturia Menstruation: Reports postmenopausal Musculoskeletal: Reports atrophy, Reports gait dysfunction, Reports low back pain, Reports morning stiffness Musculoskeletal: absent: ankle pain, ankle stiffness, ankle swelling, elbow pain, elbow stiffness, elbow swelling, foot pain, foot stiffness, foot swelling, hand pain, hand stiffness, hand swelling, hip pain, hip stiffness, hip swelling, knee pain, knee stiffness, knee swelling, shoulder pain, shoulder stiffness, shoulder swelling, wrist pain, wrist stiffness, wrist swelling Integumentary: Denies pruritus, Denies rash Neurological: Reports gait dysfunction, Reports vertigo Psychiatric: Reports anxiety, Reports depression, Denies sadness/tearfulness, Denies sleep disturbances, Denies suicidal ideation Endocrine: Denies fatigue, Denies weight change Physical examination: Gen: This is a 64-year-old female. Patient is resting in bed and appears to be comfortable. HEENT: Head is atraumatic, normocephalic. Pupils equal, round, reactive to light and accommodations , sclera non icteric, mucous membranes of the mouth are somewhat dry. NECK: Supple. No JVD. No lymphadenopathy. No thyromegaly. LUNGS: decreased breath sounds at the bases with few ronchi, no expirtory wheezes, no intercostal retractions. HEART: First heart sound is depressed, second heart sound is normal, 2/6 systol ic ejection murmur at the left sternal border. ABDOMEN: Soft. Bowel sounds are present. No masses. No tenderness. Ostomy is pink, no active bleeding, brown stool in ostomy bag EXTREMITIES: No pedal edema. No calf tenderness. Dorsalis pedis +1 bilaterally. Left thrid toe amputation wound is healed, no drainage, no bleeding. No significant erythema or edema. NEUROLOGICAL: Patient is awake, alert and oriented x3. Cranial nerves 2 through 12 are grossly intact, muscle power 4/5 in bilateral upper and lower extremities bilaterally, deep tendon reflexes were depressed bilaterally with bilateral neuropathic changes in both feet. - Labs CBC & Chem 7: 07/28/20 07:21 07/28/20 07:21 Labs: Abnormal Lab Results - Last 24 Hours (Table) 07/27/20 07/27/20 07/28/20 Range/Units 17:12 20:26 07:21 RBC (3.80-5.40) m/uL MCV (80.0-100.0) fL RDW (11.5-15.5) % Plt Count (150-450) k/uL Sodium 136 L (137-145) mmol/L BUN 32 H (7-17) mg/dL Creatinine 1.05 H (0.52-1.04) mg/dL Glucose 69 L (74-99) mg/dL POC Glucose (mg/dL) 231 H 152 H (75-99) mg/dL Total Protein 6.2 L (6.3-8.2) g/dL Albumin 3.3 L (3.5-5.0) g/dL 07/28/20 07/28/20 Range/Units 07:21 12:07 RBC 3.51 L (3.80-5.40) m/uL MCV 104.1 H (80.0-100.0) fL RDW 16.6 H (11.5-15.5) % Plt Count 77 L (150-450) k/uL Sodium (137-145) mmol/L BUN (7-17) mg/dL Creatinine (0.52-1.04) mg/dL Glucose (74-99) mg/dL POC Glucose (mg/dL) 154 H (75-99) mg/dL Total Protein (6.3-8.2) g/dL Albumin (3.5-5.0) g/dL Assessment and Plan Assessment: Assessment and plan: 1. Acute kidney injury with chronic kidney disease stage IIIa improving. IV fluids have been discontinued, continue with monitoring input and output and daily weight, neurology consult appreciated. Avoid nephrotoxic agents. 2. Recent MRSA UTI failed outpatient management. Post treatment with IV Vancomycin with ID consult . 3. Dizzines. Multifactorial with an element of adrenal insuficiency is hard to rule out. we will continue with Prednisone 20 mg orally daily. 4. Acute urinary tract infection. Patient is on Rocephin. 5. History of sepsis, bacteremia secondary to left third toe gangrene with un derlying osteomyelitis status post amputation 02/28/2020. Stable. 6. Chronic anemia of chronic illness, currently stable. Continue iron 325 mg daily. 7. Recent history of stomal bleed. No active bleeding at this time. 8. Chronic kidney disease stage 3a. Avoid nephrotoxic agents.we will continue to monitor CMP. 9. Diabetes mellitus type 2. Continue NovoLog scale before meals and at bedt len and we will continue with Tradjenta 5 mg orally daily. 10. Hepatitis C in remission, stable. 11. Crohn's disease status post ileostomy in 2007 on chronic prednisone 20 mg daily. 12. Generalized anxiety disorder and recurrent depression. Continue Xanax 1 mg twice daily and Zoloft 100 mg at bedtime, Remeron 15 mg at bedtime. 13. Hypertension hypertensive cardiovascular disease. was taken off amlodipine due to hypotension. 14. Vitamin deficiencies. Continue vitamin D supplement. 15. Chronic gout. Continue allopurinol 100 mg daily. 16. Hyperlipidemia. Continue Lipitor 20 mg at bedtime. 17. Chronic thrombocytopenia. stable. 18. GI prophylaxis. Protonix 40 mg orally daily. 19. DVT prophylaxis. Knee-high CRISTHIAN hose and Heparin 5000 units SC Q 12 hours. 20. Conjunctivitis left eye. Patient started on Tobrex 2 drops left eye every 6 hours. Discharge plan: [facility] on Saturday
[2020-07-28 17:17] LABS: Glucose,Whole Blood 270 mg/dL (75-99)
[2020-07-28 20:20] LABS: Glucose,Whole Blood 198 mg/dL (75-99)
[2020-07-28] MEDS: MIRTAZAPINE 15 MG TAB PO SCH (20:25)
[2020-07-28] MEDS: SERTRALINE 100 MG TAB PO SCH (20:25)
[2020-07-28 21:14] VITALS: RESP 18
[2020-07-29] MEDS: HEPARIN SODIUM,PORCINE 5,000 UNIT/ML 1 ML VIAL SQ SCH (04:14)
[2020-07-29 06:07] LABS: Glucose,Whole Blood 81 mg/dL (75-99)
[2020-07-29] MEDS: INSULIN ASPART (NovoLOG) 100 UNIT/ML VIAL SQ SCH (06:10)
[2020-07-29] MEDS: TOBRAMYCIN 0.3% OPHTH DROPS 5 ML BTL LEFT EYE SCH (06:26)
[2020-07-29] MEDS: PANTOPRAZOLE 40 MG TABLET PO SCH (06:26)
[2020-07-29 08:17] VITALS: BP 134/80; PULSE 88; TEMP 97.5
[2020-07-29] MEDS: CALCIUM CARBONATE 500 MG CHEWABLE PO SCH (08:17)
[2020-07-29] MEDS: ALPRAZolam 1 MG TAB PO SCH (08:18)
[2020-07-29] MEDS: allopurinoL 100 MG TAB PO SCH (08:18)
[2020-07-29] MEDS: CYANOCOBALAMIN 500 MCG TAB PO SCH (08:18)
[2020-07-29] MEDS: LINAGLIPTIN 5 MG TABLET PO SCH (08:18)
[2020-07-29] MEDS: ATORVASTATIN 20 MG TAB PO SCH (08:18)
[2020-07-29] MEDS: SODIUM BICARBONATE TAB 650 MG TAB PO SCH (08:18)
[2020-07-29] MEDS: MAGNESIUM OXIDE 400 MG TAB PO SCH (08:18)
[2020-07-29] MEDS: predniSONE 20 MG TAB PO SCH (08:18)
[2020-07-29] MEDS: CHOLECALCIFEROL 25 MCG (1000 IU) TABLET PO SCH (08:18)
[2020-07-29] MEDS: ASCORBIC ACID 500 MG TAB PO SCH (08:18)
[2020-07-29] MEDS: FOLIC ACID 1 MG TAB PO SCH (08:18)
[2020-07-29] MEDS: FERROUS SULFATE 325 MG TAB PO SCH (08:18)
--- NOTE | 2020-07-29 10:09 | P.DS ---
Providers Date of admission: 07/25/20 13:06 Expected date of discharge: 07/29/20 Attending physician: Antonio Kothari Consults: 07/25/20 13:03 Consult Physician Routine Consulting Provider: Cole Sweeney Consult Reason/Comments: GUANACO Do you want consulting provider notified?: Yes Primary care physician: Antonio Kothrai Hospital Course: This is a 64-year-old female with past medical history of Crohn's disease status post ileostomy, type 2 diabetes, hepatitis C liver disease, osteoarthritis history of kidney stones, chronic iron deficiency anemia, with an issue with stomal bleed on and off. She was hospitalized in February 2020 which time she underwent an amputation of the left third toe due to gangrene and underlying osteomyelitis by Dr. Briones. She was maintained on IV antibiotics with Kefzol for a 6 week course and was transitomed into oral Keflex and she was admitted to the ICU about a month ago thought due to gram negative pneumonia and she was released home, has been having issues with dizziness on and off and she she was recently seen by nephrology due to GUANACO on CKD 3a and she was taken off her lasiix completely and she was supposed to be drinking more water, which she has been doing well with that, she was hospitalized in 06/06/2020 for dehydration and UTI and she was followed with me as an outpatient and had the [facility] for 3 visit, patient started to have increased swelling and she was told to go back on lasix 3 times per week, she called me the yesterday stating that she is very weak and she wanted to come to see me, but today after talking to her on the phone she sounded very weak and I urged her to come to the ER instead, she was found to have acute kidney injury with BUN 117 and creatinine of 2.5 , she as started on IVF 0.9 saline at 100 cc/h and she was admitted to the hospital for evaluation by nephrology. 2/2: Patient denies any shortness of breath at this point. No cough or sputum production. No lower extremity edema. She has not had any blood from her stoma. Fever or chills. Repeat laboratory today reveals improvement of her renal function with BUN of 84 and creatinine 1.61. Elective lites are normal. Hemoglobin 11.7 and platelet count 90. Blood sugars are running between 100- 136. Patient is afebrile, heart rate 83, blood pressure 143/75, pulse ox 95% on room air. Patient is followed by nephrology. Renal ultrasound reveals diminutive right kidney. Patient has been evaluated by therapies with recommendations for home with home care. 23: Patient has been maintained on IV fluids of 0.9 normal saline at 50 mL per hour. She is also maintained on ceftriaxone. Repeat blood work today reveals improvement of her renal function with BUN of 55 and creatinine 1.21. Hemoglobin 11.1. Blood sugars yesterday afternoon were running low 200, this morning 89. Magnesium is been replaced. Patient is eating fairly well. No vomiting or diarrhea. She is denying abdominal pain. She has normal output from her ileostomy and good urine output. Patient is not wearing an eye patch on her left eye because it is scratchy. Patient has been afebrile, heart rate 74, blood pressure 106/68, pulse ox 93% on room air. Urine culture was finalized with skin carina 07/28: Patient denies any nausea, vomiting or diarrhea. Her renal function continues to improve. BUN is 32 and creatinine 1.05. IV fluids and discontinue. Patient has been afebrile, heart rate 79, blood pressure 109/60, pulse ox 94% on room air. We'll check this morning was 69. Yesterday afternoon running between 87 and 231. Patient continues to wear eye patch on the left eye and continued on antibiotic eyedrops. Discharge plan is for [facility] tomorrow. 07/29: Patient's renal function is stable. Patient is eating and drinking adequately. No vomiting or diarrhea. She has been afebrile, heart rate 88, blood pressure 1 3480, pulse ox 97% on room air. She'll be discharged to [facility] today in stable condition. Discharge diagnoses: 1. Acute kidney injury with chronic kidney disease stage IIIa improving. 2. Recent MRSA UTI failed outpatient management. 3. Dizzines. Multifactorial with an element of adrenal insuficiency is hard to rule out. 4. Acute urinary tract infection. 5. History of sepsis, bacteremia secondary to left third toe gangrene with underlying osteomyelitis status post amputation 02/28/2020. Stable. 6. Chronic anemia of chronic illness, currently stable. 7. Recent history of stomal bleed. 8. Chronic kidney disease stage 3a. 9. Diabetes mellitus type 2. 10. Hepatitis C in remission, stable. 11. Crohn's disease status post ileostomy in 2007 on chronic prednisone 20 mg daily. 12. Generalized anxiety disorder and recurrent depression. 13. Hypertension hypertensive cardiovascular disease. 14. Vitamin deficiencies. 15. Chronic gout. 16. Hyperlipidemia. 17. Chronic thrombocytopenia. stable. 18. Conjunctivitis left eye. Patient started on Tobrex 2 drops left eye every 6 hours. Discharge plan: [facility] Impression and plan of care have been directed as dictated by the signing physician. Glenis Hernandez nurse practitioner acting as scribe for signing phys ician. Patient Condition at Discharge: Fair Plan - Discharge Summary Discharge Rx Participant: No New Discharge Prescriptions: New Cefuroxime Axetil [Ceftin] 500 mg PO BID 3 Days #6 tab INSULIN ASPART (NovoLOG) [NovoLOG (formulary)] 0 unit SQ ACHS vial Tobramycin 0.3% Ophth Soln [Tobrex 0.3% Ophth Soln] 2 drops LEFT EYE Q6HR ml Continue Sertraline HCl [Zoloft] 100 mg PO HS Ferrous Sulfate [Iron (65 MG Elemental)] 325 mg PO DAILY Magnesium Oxide [Mag-Ox] 250 mg PO DAILY predniSONE [Deltasone] 20 mg PO DAILY #30 tab sitaGLIPtin PHOSPHATE [Januvia] 50 mg PO DAILY allopurinoL [Zyloprim] 100 mg PO DAILY Rosuvastatin [Crestor] 10 mg PO DAILY Mirtazapine [Remeron] 15 mg PO HS Sodium Bicarbonate Tab 650 mg PO TID Folic Acid 0.4 mg PO DAILY Pantoprazole [Protonix] 40 mg PO AC-BRKFST #30 tablet. Calcium Carbonate [Tums] 1,000 mg PO DAILY Cholecalciferol [Vitamin D3 (25 Mcg = 1000 Iu)] 25 mcg PO DAILY Ascorbic Acid [Vitamin C] 500 mg PO DAILY Furosemide [Lasix] 40 mg PO MOWEFR Cyanocobalamin (Vitamin B-12) [Vitamin B-12] 1,000 mcg PO DAILY ALPRAZolam [Xanax] 1 mg PO BID #6 tab Discharge Medication List Sertraline HCl [Zoloft] 100 mg PO HS 07/26/17 [History] Ferrous Sulfate [Iron (65 MG Elemental)] 325 mg PO DAILY 06/19/19 [History] Magnesium Oxide [Mag-Ox] 250 mg PO DAILY 06/19/19 [History] predniSONE [Deltasone] 20 mg PO DAILY #30 tab 06/30/19 [Rx] Rosuvastatin [Crestor] 10 mg PO DAILY 01/26/20 [History] allopurinoL [Zyloprim] 100 mg PO DAILY 01/26/20 [History] sitaGLIPtin PHOSPHATE [Januvia] 50 mg PO DAILY 01/26/20 [History] Folic Acid 0.4 mg PO DAILY 06/06/20 [History] Mirtazapine [Remeron] 15 mg PO HS 06/06/20 [History] Sodium Bicarbonate Tab 650 mg PO TID 06/06/20 [History] Pantoprazole [Protonix] 40 mg PO AC-BRKFST #30 tablet.dr 06/13/20 [Rx] Ascorbic Acid [Vitamin C] 500 mg PO DAILY 07/25/20 [History] Calcium Carbonate [Tums] 1,000 mg PO DAILY 07/25/20 [History] Cholecalciferol [Vitamin D3 (25 Mcg = 1000 Iu)] 25 mcg PO DAILY 07/25/20 [History] Cyanocobalamin (Vitamin B-12) [Vitamin B-12] 1,000 mcg PO DAILY 07/25/20 [History] Furosemide [Lasix] 40 mg PO MOWEFR 07/25/20 [History] ALPRAZolam [Xanax] 1 mg PO BID #6 tab 07/29/20 [Rx] Cefuroxime Axetil [Ceftin] 500 mg PO BID 3 Days #6 tab 07/29/20 [Rx] INSULIN ASPART (NovoLOG) [NovoLOG (formulary)] 0 unit SQ ACHS vial 07/29/20 [Rx] Tobramycin 0.3% Ophth Soln [Tobrex 0.3% Ophth Soln] 2 drops LEFT EYE Q6HR ml 0 07/29/20 [Rx] Follow up Appointment(s)/Referral(s): Antonio Kothari MD [Primary Care Provider] - 1 Week (At [facility]) Discharge Disposition: TRANSFER TO SNF/F
--- NOTE | 2020-07-29 10:53 | P.PN ---
Subjective Patient is seen in follow for acute kidney injury. Renal function improved from admission. Creatinine 1.05 as of yesterday. No vomiting or diarrhea. Oral intake is good. Vital signs are stable. General: The patient appeared well nourished and normally developed. HEENT: Head exam is unremarkable. Neck is without jugular venous distension. LUNGS: Breath sounds decreased. HEART: Rate and Rhythm are regular. ABDOMEN: Soft, nontender. EXTREMITITES: No edema. Objective - Vital Signs Vital signs: Vital Signs Temp 97.5 F L 07/29/20 08:00 Pulse 88 07/29/20 08:00 Resp 18 07/29/20 08:00 BP 134/80 07/29/20 08:00 Pulse Ox 97 07/29/20 08:00 Intake & Output 07/28/20 07/29/20 07/29/20 18:59 06:59 18:59 Intake Total 1140 10 240 Output Total 300 Balance 840 10 240 Weight 67.9 kg Intake: IV 10 0.9 10 Intake, IV Titration 100 Amount cefTRIAXone 1 gm In 100 Sodium Chloride 0.9% 50 ml @ 100 mls/hr IVPB Q24HR [facility] Rx#:[id number] Oral 1040 240 Output: Urine 300 Other: Voiding Method Bedside Commode Toilet Toilet Bedside Commode Bedside Commode # Voids 3 1 - Labs CBC & Chem 7: 07/28/20 07:21 07/28/20 07:21 Labs: Abnormal Lab Results - Last 24 Hours (Table) 07/28/20 07/28/20 07/28/20 Range/Units 12:07 17:16 20:18 POC Glucose (mg/dL) 154 H 270 H 198 H (75-99) mg/dL Assessment and Plan Plan: Assessment: 1. Acute kidney injury mostly prerenal improving with IV hydration. Creatinine was 2.56 on admission and is 1.05 as of yesterday. Baseline creatinine near 1 from April 2020. Left kidney smaller in size but no evidence of hydronephrosis noted. 2. Generalized weakness. 3. Hypovolemic hyponatremia improved with IV hydration. 4. Metabolic acidosis secondary to acute kidney injury and IV fluids. Maintained on oral bicarbonate. 5. Hypomagnesemia from poor intake. Maintained on oral magnesium oxide. Better. 6. UTI maintained on antibiotics. Urine culture positive for skin carina. 7. Diabetes mellitus. Plan: Remains off IV fluids. Encouraged oral intake. Avoid nephrotoxins. Continue to monitor renal function and urine output.
== END 2020-07-29 11:45 | DRG 683 ==
LOC: EC 10:56 → 3SCARD 13:06
PROVIDERS: ADMIT Internal Medicine; ATTEND Internal Medicine
DX: N17.9 Acute kidney failure, unspecified (principal); N39.0 Urinary tract infection, site not specified; E87.2 Acidosis; E87.1 Hypo-osmolality and hyponatremia; F33.9 Major depressive disorder, recurrent, unspecified; K50.90 Crohn's disease, unspecified, without complications; D69.6 Thrombocytopenia, unspecified; D63.1 Anemia in chronic kidney disease; E11.22 Type 2 diabetes mellitus with diabetic chronic kidney disease; I13.10 Hypertensive heart and chronic kidney disease without heart failure, with stage 1 through stage 4 chronic kidney disease, or unspecified chronic kidney disease; N18.31 Chronic kidney disease, stage 3a; Z93.2 Ileostomy status; Z89.422 Acquired absence of other left toe(s); Z20.822 Contact with and (suspected) exposure to COVID-19; E86.0 Dehydration; E86.1 Hypovolemia; E78.5 Hyperlipidemia, unspecified; K21.9 Gastro-esophageal reflux disease without esophagitis; M19.90 Unspecified osteoarthritis, unspecified site; B19.20 Unspecified viral hepatitis C without hepatic coma; F41.1 Generalized anxiety disorder; M1A.9XX0 Chronic gout, unspecified, without tophus (tophi); E83.42 Hypomagnesemia; H10.9 Unspecified conjunctivitis; Z79.899 Other long term (current) drug therapy; Z79.84 Long term (current) use of oral hypoglycemic drugs; Z79.52 Long term (current) use of systemic steroids; Z91.048 Other nonmedicinal substance allergy status; Z87.01 Personal history of pneumonia (recurrent); Z87.442 Personal history of urinary calculi; Z90.49 Acquired absence of other specified parts of digestive tract; Z90.710 Acquired absence of both cervix and uterus; Z96.641 Presence of right artificial hip joint; Z86.19 Personal history of other infectious and parasitic diseases; Z86.14 Personal history of Methicillin resistant Staphylococcus aureus infection; Z88.6 Allergy status to analgesic agent; Z88.1 Allergy status to other antibiotic agents; Z88.8 Allergy status to other drugs, medicaments and biological substances; Z83.3 Family history of diabetes mellitus; Z82.3 Family history of stroke; Z80.9 Family history of malignant neoplasm, unspecified
CPT/HCPCS: 36415; 71046; 76770; 80048; 80053; 81001; 83605; 83735; 83880; 84484; 85025; 85027; 85610; 85730; 87086; 87635; 93005; 96360; 96361; 99285

== ENCOUNTER 2020-09-28 18:41 | Emergency (ER) | payer MEDICARE ==
[~2020-09-28 18:41] MED LIST changes: +EPINEPHrine 10 ML SYRINGE (0.1 MG/ML) ONE; -REGADENOSON 0.4 MG/5 ML SYRINGE IV ONE
--- NOTE | 2020-09-28 18:43 | ED ---
General Adult HPI - General Stated complaint: Unresponsive - History of Present Illness Initial comments: 64yo female brought to the er by ambulance, unresponsive with ileostomy bag full of dark red blood. patient was in her usual state of health until physical therapy yesterday she ate lunch today. Urinating. She stood up to walk to the bathroom she became weak and fell to ground. called 911. EMS reports that upon their arrival she was unresponsive with agonal respirations but she had a pulse. EMS reports that they assisted Her respirations in route to the hospital. - Related Data Home Medications Medication Instructions Recorded Confirmed Sertraline HCl [Zoloft] 100 mg PO HS 07/26/17 09/28/20 Ferrous Sulfate [Iron (65 MG 325 mg PO DAILY 06/19/19 09/28/20 Elemental)] Magnesium Oxide [Mag-Ox] 250 mg PO DAILY 06/19/19 09/28/20 Rosuvastatin [Crestor] 10 mg PO DAILY 01/26/20 09/28/20 allopurinoL [Zyloprim] 100 mg PO DAILY 01/26/20 09/28/20 sitaGLIPtin PHOSPHATE [Januvia] 50 mg PO DAILY 01/26/20 09/28/20 Folic Acid 0.4 mg PO DAILY 06/06/20 09/28/20 Mirtazapine [Remeron] 15 mg PO HS 06/06/20 09/28/20 Sodium Bicarbonate Tab 650 mg PO TID 06/06/20 09/28/20 Ascorbic Acid [Vitamin C] 500 mg PO DAILY 07/25/20 09/28/20 Calcium Carbonate [Tums] 1,000 mg PO DAILY 07/25/20 09/28/20 Cholecalciferol [Vitamin D3 (25 25 mcg PO DAILY 07/25/20 09/28/20 Mcg = 1000 Iu)] Cyanocobalamin (Vitamin B-12) 1,000 mcg PO DAILY 07/25/20 09/28/20 [Vitamin B-12] INSULIN ASPART (NovoLOG) [NovoLOG See Protocol SQ ACHS 09/28/20 09/28/20 (formulary)] cycloSPORINE [Restasis] 1 applicator BOTH EYES BID 09/28/20 09/28/20 Previous Rx's Medication Instructions Recorded predniSONE [Deltasone] 20 mg PO DAILY #30 tab 06/30/19 Pantoprazole [Protonix] 40 mg PO AC-BRKFST #30 tablet. 06/13/20 ALPRAZolam [Xanax] 1 mg PO BID #6 tab 07/29/20 Allergies Allergy/AdvReac Type Severity Reaction Status Date / Time adhesive tape Allergy Severe Rash/Hives/Skin Verified 07/25/20 11:55 Peeling levofloxacin [From Levaquin] Allergy Severe Swelling/ra Verified 07/25/20 11:55 sh Quinolones Allergy Severe Anaphylaxis Verified 07/25/20 11:55 /Swelling enoxaparin [From Lovenox] Allergy GI bleed Verified 07/25/20 11:55 NSAIDS (Non-Steroidal AdvReac Severe GI Verified 07/25/20 11:55 Anti-Inflamma Bleeding/Liver Damage warfarin [From Coumadin] AdvReac Severe Abdominal Verified 07/25/20 11:55 Pain Review of Systems ROS Statement: Those systems with pertinent positive or pertinent negative responses have been documented in the HPI. ROS Other: All systems not noted in ROS Statement are negative. Past Medical History Past Medical History: Blood Disorder, Diabetes Mellitus, GERD/Reflux, Hyperlipidemia, Hypertension, Liver Disease, Osteoarthritis (OA), Renal Disease Additional Past Medical History / Comment(s): crohns, hx. hep c, past hx. sepsis & ards 2007, has ileostomy, hx. kidney stones, hx. of infection,has spacer in, hx. anemia related to intermittent bleeding from stoma, has past hx., uti , low platelets septicemia. CHRONIC KIDNEY DISEASE. History of Any Multi-Drug Resistant Organisms: MRSA Date of last positivie culture/infection: 04/25/16 MDRO Source:: Blood & Right Hip Past Surgical History: Appendectomy, Bowel Resection, Cholecystectomy, Hernia Repair, Hysterectomy, Tubal Ligation Additional Past Surgical History / Comment(s): ileostomy 2009 WITH 3-4 RE- SUTURING EPISODES RELATED TO BLEEDING, ileoscopy w/argon gas coagulation of stoma, 10-22-16 revison rt toal hip arthroplasty Past Anesthesia/Blood Transfusion Reactions: No Reported Reaction Past Psychological History: Anxiety Smoking Status: Never smoker Past Alcohol Use History: None Reported Past Drug Use History: None Reported - Past Family History Mother Family Medical History: CVA/TIA, Diabetes Mellitus Additional Family Medical History / Comment(s): Mother at age 88 from CVA. Sister(s) Additional Family Medical History / Comment(s): Patient has 3 sisters with no major medical problems. Patient does not have any brothers. Patient has 2 sons with no major medical problems. Father Family Medical History: Cancer Additional Family Medical History / Comment(s): . General Exam - General Exam Comments Initial Comments: Physical Exam GENERAL: Pale, unresponsive, agonal respiratons HENT: atraumatic EYES: Pupils 4mm reactive conjunctival pallor PULMONARY: Agonal respirations CARDIOVASCULAR: Weak pulses ABDOMEN: Ileostomy full with dark blood SKIN: Pale, bruising all over legs : Normal external genitalia NEUROLOGIC: Unresponsive No gag reflex Pupils reactive MUSCULOSKELETAL: bruising on legs PSYCHIATRIC: Unable to assess Course Vital Signs 09/28/20 09/28/20 09/28/20 18:50 19:15 19:45 Temperature 98.7 F Pulse Rate 111 H 74 69 Pulse Rate [ Right] Respiratory 6 L 12 24 Rate Blood Pressure 104/76 92/69 90/58 Blood Pressure [Right Arm] O2 Sat by Pulse 100 Oximetry 09/28/20 09/28/20 09/28/20 20:00 20:25 20:45 Temperature 98.6 F 98.7 F Pulse Rate 72 70 69 Pulse Rate [ Right] Respiratory 24 24 22 Rate Blood Pressure 105/59 85/57 81/44 Blood Pressure [Right Arm] O2 Sat by Pulse 100 110 H Oximetry 09/28/20 09/28/20 09/28/20 21:15 22:00 22:15 Temperature Pulse Rate Pulse Rate [ 81 92 96 Right] Respiratory 16 29 H 27 H Rate Blood Pressure Blood Pressure 99/75 117/96 146/132 [Right Arm] O2 Sat by Pulse 100 99 Oximetry 09/28/20 09/28/20 09/28/20 22:30 22:45 23:15 Temperature Pulse Rate Pulse Rate [ 97 101 H 107 H Right] Respiratory 24 26 H 19 Rate Blood Pressure Blood Pressure 74/30 66/32 74/38 [Right Arm] O2 Sat by Pulse 100 Oximetry 09/28/20 09/29/20 09/29/20 23:45 00:00 00:15 Temperature Pulse Rate 108 H Pulse Rate [ 108 H 110 H Right] Respiratory 35 H 22 25 H Rate Blood Pressure 69/37 Blood Pressure 75/42 83/41 [Right Arm] O2 Sat by Pulse 98 Oximetry 09/29/20 09/29/20 09/29/20 00:30 01:00 01:15 Temperature Pulse Rate Pulse Rate [ 104 H 98 Right] Respiratory 25 H 21 5 L Rate Blood Pressure Blood Pressure 109/66 109/66 [Right Arm] O2 Sat by Pulse Oximetry 09/29/20 09/29/20 09/29/20 01:30 01:45 02:00 Temperature Pulse Rate Pulse Rate [ 92 91 86 Right] Respiratory 27 H 25 H 10 L Rate Blood Pressure Blood Pressure 87/67 93/46 [Right Arm] O2 Sat by Pulse 81 L Oximetry 09/29/20 09/29/20 09/29/20 02:15 02:30 02:35 Temperature Pulse Rate Pulse Rate [ 101 H Right] Respiratory 14 22 Rate Blood Pressure Blood Pressure 99/52 137/91 101/59 [Right Arm] O2 Sat by Pulse Oximetry 09/29/20 09/29/20 02:45 03:00 Temperature Pulse Rate Pulse Rate [ 82 0 L Right] Respiratory 24 Rate Blood Pressure Blood Pressure 67/39 [Right Arm] O2 Sat by Pulse Oximetry EKG Findings - EKG Comments: EKG Findings:: Initial EKG obtained at 1845 rate is 112 rhythm is sinus tach, ST depressions laterally concerning for ischemia. Repeat EKG obtained at 1857, rate is 131 rhythm is a wide complex regular tachycardia concerning for ventricular tachycardia. Repeat EKG obtained at 1924 rate is 120 rhythm is again wide complex tachycardia concerning for possible ventricular tachycardia Procedures - Procedures Initial comment: Chest Tube Insertion Consent Obtained: emergent situation Side of Procedure: right Indication: Pneumothorax, hypoxia Placed on monitor/pulse oximetry: Yes Site Prep: Chloroprep Insertion Site: Midaxillary Open into Pleural Space Using: Trocar Tube Size (Cymraes): 24 Returns: Air, Blood Sutured in Place: No Attached to Suction: No Patient Tolerated Procedure: Hypoxia - ABG Interpretation Ph: 7.2 Interpretation: metabolic acidosis - Central Line Placement Right IJ Consent Obtained: emergent situation Patient Placed on Monitor/Pulse Ox: Yes Prep: mask, gown, gloves Central Line Prep: Chlorhexidine scrub Ultrasound Used for Placement: Yes Central Line Lumen Inserted: triple Bloods Obtained for Lab: No Central Line Position: good blood return, all ports aspirated, flushed, capped, sutured in place with 3-0 nylon Dressing Applied: Tegaderm Post Procedure X-Ray: tip of catheter in good position Patient Tolerated Procedure: well Complications: none - Chest Tube Insertion Consent Obtained: emergent situation Side of Procedure: right Indication: Pneumothorax Placed on monitor/pulse oximetry: Yes Site Prep: Chloroprep Insertion Site: Other (Midclavicular) Open into Pleural Space Using: Trocar Tube Size (Cymraes): Other (13) Returns: Air, Blood Sutured in Place: No Attached to Suction: No Patient Tolerated Procedure: no complications - Intubation Laryngoscope: Trey Size: 3 ET Tube Size: 7.5 ET Tube Uncuffed: No Tube Secured Depth (cm): 21 Tube Secured Location: teeth Tube Placement Confirmation: visualized tube passing through cords, equal breath sounds bilaterally, no breath sounds over epigastrium, confirmation by capnometry Patient Tolerated Procedure: no complications Intubation Complications: none Medical Decision Making - Medical Decision Making Patient was unresponsive upon arrival having massive GI bleed with >1L dark blood in ostomy Patient was intubated Patient lost pulses and was resuscitated per ACLS protocols ROSC was obtained Massive transfusion protocol ordered Right IJ central line was placed Patient awake, following commands after ROCS GI notified - however patient too unstable for intervention at this time Labs grossly abnormal due to being drawn during massive transfusion Hyperkalemia treated Repeat labs obtained Patient with metabolic acidosis likely related to DKA and lactic acidosis Insulin bolus and infusion ordered IV antibiotics ordered due to non-sterile central line TXA ordered CT imaging - cannot identify source of bleeding - rib fractures and pneumothorax noted Thoravent placed Surgeon Dr Payne notified - recommends transfer to higher level of care Multiple hospitals were contacted and declined transfer due to lack of capacity due to COVID crisis [facility], Helicopter en route for trnasfer Patient with recurrent massive bleeding >1L of dark blood Again PEA arrest, resuscitated per ACLS protocols ROSC after 10 minutes Patient no longer responsive, not requiring sedation, becoming hypoxic Pneumothorax appears worse on CXR - chest tube placed Helicopter crew at bedside Patient unresponsive, agonal respirations, pupils fixed and dilated pH 6.7, Lactic 11 With discussion of transfer team, back office medical assistant at [facility] and myself it was determined that there is futility of care and [facility] back office medical assistant recommends not to transfer This was discussed with family, aware, we will not code the patient again Patient once again lost pulses and was pronounced at 2:48 AM - Lab Data Result diagrams: 09/28/20 21:23 09/28/20 21:23 Lab Results 09/28/20 09/28/20 09/28/20 Range/Units 19:32 19:32 19:32 WBC 26.6 H (3.8-10.6) k/uL RBC 3.22 L (3.80-5.40) m/uL Hgb 10.6 L (11.4-16.0) gm/dL Hct 34.9 (34.0-46.0) % MCV 108.2 H (80.0-100.0) fL MCH 32.9 (25.0-35.0) pg MCHC 30.4 L (31.0-37.0) g/dL RDW 18.3 H (11.5-15.5) % Plt Count 79 L (150-450) k/uL MPV 9.3 Neutrophils % % Neutrophils % (Manual) 41 % Band Neuts % (Manual) 6 % Lymphocytes % % Lymphocytes % (Manual) 47 % Monocytes % % Monocytes % (Manual) 5 % Eosinophils % % Basophils % % Metamyelocytes % 2 % Other Cells % [facility]LLATE [facility] CLERK Neutrophils # (1.3-7.7) k/uL Neutrophils # (Manual) 12.50 H (1.3-7.7) k/uL Lymphocytes # (1.0-4.8) k/uL Lymphocytes # (Manual) 12.50 H (1.0-4.8) k/uL Monocytes # (0-1.0) k/uL Monocytes # (Manual) 1.33 H (0-1.0) k/uL Eosinophils # (0-0.7) k/uL Basophils # (0-0.2) k/uL Metamyelocytes # (Man) 0.53 H (0) k/uL Nucleated RBCs 4 H (0-0) /100 WBC Manual Slide Review Performed Hypochromasia Marked Poikilocytosis (manual Present Anisocytosis Slight Macrocytosis Marked A APTT 60.6 H (22.0-30.0) sec Sample Site ABG pH (7.35-7.45) ABG pCO2 (35-45) mmHg ABG pO2 (83-108) mmHg ABG HCO3 (21-25) mmol/L ABG Total CO2 (19-24) mmol/L ABG O2 Saturation (94-97) % ABG Base Excess mmol/L Sincere Test FiO2 % Sodium 134 L (137-145) mmol/L Potassium 7.2 H* (3.5-5.1) mmol/L Chloride 102 (98-107) mmol/L Carbon Dioxide <5 L* (22-30) mmol/L Anion Gap mmol/L BUN 34 H (7-17) mg/dL Creatinine 2.16 H (0.52-1.04) mg/dL Est GFR (CKD-EPI)AfAm 28 (>60 ml/min/1.73 sqM) Est GFR (CKD-EPI)NonAf 24 (>60 ml/min/1.73 sqM) Glucose 479 H (74-99) mg/dL POC Glucose (mg/dL) (75-99) mg/dL POC Glu Bead Trimmer ID Lactic Ac Sepsis Rflx Plasma Lactic Acid Catrachito (0.7-2.0) mmol/L Calcium 9.1 (8.4-10.2) mg/dL Total Bilirubin 0.4 (0.2-1.3) mg/dL AST 156 H (14-36) U/L ALT 84 H (4-34) U/L Alkaline Phosphatase 84 (38-126) U/L Troponin I (0.000-0.034) ng/mL Total Protein 4.7 L (6.3-8.2) g/dL Albumin 2.5 L (3.5-5.0) g/dL Coronavirus (PCR) (Not Detectd) Blood Type Blood Type Recheck Bld Type Recheck Status Antibody Screen Crossmatch Transfuse Plasma Transfuse Platelets Spec Expiration Date 09/28/20 09/28/20 09/28/20 Range/Units 19:32 19:32 21:23 WBC 21.6 H (3.8-10.6) k/uL RBC 2.58 L (3.80-5.40) m/uL Hgb 8.3 L D (11.4-16.0) gm/dL Hct 25.3 L (34.0-46.0) % MCV 98.0 D (80.0-100.0) fL MCH 32.0 (25.0-35.0) pg MCHC 32.7 (31.0-37.0) g/dL RDW 17.1 H (11.5-15.5) % Plt Count 47 L (150-450) k/uL MPV 9.5 Neutrophils % 67 % Neutrophils % (Manual) % Band Neuts % (Manual) % Lymphocytes % 28 % Lymphocytes % (Manual) % Monocytes % 2 % Monocytes % (Manual) % Eosinophils % 1 % Basophils % 2 % Metamyelocytes % % Other Cells % Neutrophils # 14.4 H (1.3-7.7) k/uL Neutrophils # (Manual) (1.3-7.7) k/uL Lymphocytes # 5.9 H (1.0-4.8) k/uL Lymphocytes # (Manual) (1.0-4.8) k/uL Monocytes # 0.5 (0-1.0) k/uL Monocytes # (Manual) (0-1.0) k/uL Eosinophils # 0.1 (0-0.7) k/uL Basophils # 0.4 H (0-0.2) k/uL Metamyelocytes # (Man) (0) k/uL Nucleated RBCs (0-0) /100 WBC Manual Slide Review Hypochromasia Marked Poikilocytosis (manual Anisocytosis Slight Macrocytosis Slight APTT (22.0-30.0) sec Sample Site ABG pH (7.35-7.45) ABG pCO2 (35-45) mmHg ABG pO2 (83-108) mmHg ABG HCO3 (21-25) mmol/L ABG Total CO2 (19-24) mmol/L ABG O2 Saturation (94-97) % ABG Base Excess mmol/L Sincere Test FiO2 % Sodium (137-145) mmol/L Potassium (3.5-5.1) mmol/L Chloride (98-107) mmol/L Carbon Dioxide (22-30) mmol/L Anion Gap mmol/L BUN (7-17) mg/dL Creatinine (0.52-1.04) mg/dL Est GFR (CKD-EPI)AfAm (>60 ml/min/1.73 sqM) Est GFR (CKD-EPI)NonAf (>60 ml/min/1.73 sqM) Glucose (74-99) mg/dL POC Glucose (mg/dL) (75-99) mg/dL POC Glu Bead Trimmer ID Lactic Ac Sepsis Rflx Plasma Lactic Acid Catrachito (0.7-2.0) mmol/L Calcium (8.4-10.2) mg/dL Total Bilirubin (0.2-1.3) mg/dL AST (14-36) U/L ALT (4-34) U/L Alkaline Phosphatase (38-126) U/L Troponin I 0.062 H* (0.000-0.034) ng/mL Total Protein (6.3-8.2) g/dL Albumin (3.5-5.0) g/dL Coronavirus (PCR) (Not Detectd) Blood Type A Positive Blood Type Recheck A Pos Bld Type Recheck Status No Antibody Screen NEGATIVE Crossmatch See Detail Transfuse Plasma Transfuse Platelets Spec Expiration Date 10/01/2020 - 233109/28/20 09/28/20 09/28/20 Range/Units 21:23 21:23 21:23 WBC (3.8-10.6) k/uL RBC (3.80-5.40) m/uL Hgb (11.4-16.0) gm/dL Hct (34.0-46.0) % MCV (80.0-100.0) fL MCH (25.0-35.0) pg MCHC (31.0-37.0) g/dL RDW (11.5-15.5) % Plt Count (150-450) k/uL MPV Neutrophils % % Neutrophils % (Manual) % Band Neuts % (Manual) % Lymphocytes % % Lymphocytes % (Manual) % Monocytes % % Monocytes % (Manual) % Eosinophils % % Basophils % % Metamyelocytes % % Other Cells % Neutrophils # (1.3-7.7) k/uL Neutrophils # (Manual) (1.3-7.7) k/uL Lymphocytes # (1.0-4.8) k/uL Lymphocytes # (Manual) (1.0-4.8) k/uL Monocytes # (0-1.0) k/uL Monocytes # (Manual) (0-1.0) k/uL Eosinophils # (0-0.7) k/uL Basophils # (0-0.2) k/uL Metamyelocytes # (Man) (0) k/uL Nucleated RBCs (0-0) /100 WBC Manual Slide Review Hypochromasia Poikilocytosis (manual Anisocytosis Macrocytosis APTT (22.0-30.0) sec Sample Site ABG pH (7.35-7.45) ABG pCO2 (35-45) mmHg ABG pO2 (83-108) mmHg ABG HCO3 (21-25) mmol/L ABG Total CO2 (19-24) mmol/L ABG O2 Saturation (94-97) % ABG Base Excess mmol/L Sincere Test FiO2 % Sodium 129 L (137-145) mmol/L Potassium 5.9 H (3.5-5.1) mmol/L Chloride 97 L (98-107) mmol/L Carbon Dioxide 17 L (22-30) mmol/L Anion Gap 15 mmol/L BUN 38 H (7-17) mg/dL Creatinine 1.58 H (0.52-1.04) mg/dL Est GFR (CKD-EPI)AfAm 40 (>60 ml/min/1.73 sqM) Est GFR (CKD-EPI)NonAf 35 (>60 ml/min/1.73 sqM) Glucose 606 H* (74-99) mg/dL POC Glucose (mg/dL) (75-99) mg/dL POC Glu Bead Trimmer ID Lactic Ac Sepsis Rflx Plasma Lactic Acid Catrachito 11.9 H* (0.7-2.0) mmol/L Calcium 7.5 L (8.4-10.2) mg/dL Total Bilirubin 0.5 (0.2-1.3) mg/dL AST 485 H (14-36) U/L ALT 243 H (4-34) U/L Alkaline Phosphatase 53 (38-126) U/L Troponin I 0.237 H* (0.000-0.034) ng/mL Total Protein 3.3 L (6.3-8.2) g/dL Albumin 1.6 L (3.5-5.0) g/dL Coronavirus (PCR) (Not Detectd) Blood Type Blood Type Recheck Bld Type Recheck Status Antibody Screen Crossmatch Transfuse Plasma Transfuse Platelets Spec Expiration Date 09/28/20 09/28/20 09/28/20 Range/Units 21:54 22:08 22:48 WBC (3.8-10.6) k/uL RBC (3.80-5.40) m/uL Hgb (11.4-16.0) gm/dL Hct (34.0-46.0) % MCV (80.0-100.0) fL MCH (25.0-35.0) pg MCHC (31.0-37.0) g/dL RDW (11.5-15.5) % Plt Count (150-450) k/uL MPV Neutrophils % % Neutrophils % (Manual) % Band Neuts % (Manual) % Lymphocytes % % Lymphocytes % (Manual) % Monocytes % % Monocytes % (Manual) % Eosinophils % % Basophils % % Metamyelocytes % % Other Cells % Neutrophils # (1.3-7.7) k/uL Neutrophils # (Manual) (1.3-7.7) k/uL Lymphocytes # (1.0-4.8) k/uL Lymphocytes # (Manual) (1.0-4.8) k/uL Monocytes # (0-1.0) k/uL Monocytes # (Manual) (0-1.0) k/uL Eosinophils # (0-0.7) k/uL Basophils # (0-0.2) k/uL Metamyelocytes # (Man) (0) k/uL Nucleated RBCs (0-0) /100 WBC Manual Slide Review Hypochromasia Poikilocytosis (manual Anisocytosis Macrocytosis APTT (22.0-30.0) sec Sample Site LRAD ABG pH 7.20 L (7.35-7.45) ABG pCO2 43 (35-45) mmHg ABG pO2 384 H (83-108) mmHg ABG HCO3 17 L (21-25) mmol/L ABG Total CO2 18 L (19-24) mmol/L ABG O2 Saturation 99.5 H (94-97) % ABG Base Excess -11.4 mmol/L Sincere Test Yes FiO2 100 % Sodium (137-145) mmol/L Potassium (3.5-5.1) mmol/L Chloride (98-107) mmol/L Carbon Dioxide (22-30) mmol/L Anion Gap mmol/L BUN (7-17) mg/dL Creatinine (0.52-1.04) mg/dL Est GFR (CKD-EPI)AfAm (>60 ml/min/1.73 sqM) Est GFR (CKD-EPI)NonAf (>60 ml/min/1.73 sqM) Glucose (74-99) mg/dL POC Glucose (mg/dL) 566 H (75-99) mg/dL POC Glu Bead Trimmer ID Lori Lundberg Lactic Ac Sepsis Rflx Y Plasma Lactic Acid Catrachito (0.7-2.0) mmol/L Calcium (8.4-10.2) mg/dL Total Bilirubin (0.2-1.3) mg/dL AST (14-36) U/L ALT (4-34) U/L Alkaline Phosphatase (38-126) U/L Troponin I (0.000-0.034) ng/mL Total Protein (6.3-8.2) g/dL Albumin (3.5-5.0) g/dL Coronavirus (PCR) (Not Detectd) Blood Type Blood Type Recheck Bld Type Recheck Status Antibody Screen Crossmatch Transfuse Plasma Transfuse Platelets Spec Expiration Date 09/28/20 09/28/20 09/29/20 Range/Units 23:07 23:45 01:06 WBC (3.8-10.6) k/uL RBC (3.80-5.40) m/uL Hgb (11.4-16.0) gm/dL Hct (34.0-46.0) % MCV (80.0-100.0) fL MCH (25.0-35.0) pg MCHC (31.0-37.0) g/dL RDW (11.5-15.5) % Plt Count (150-450) k/uL MPV Neutrophils % % Neutrophils % (Manual) % Band Neuts % (Manual) % Lymphocytes % % Lymphocytes % (Manual) % Monocytes % % Monocytes % (Manual) % Eosinophils % % Basophils % % Metamyelocytes % % Other Cells % Neutrophils # (1.3-7.7) k/uL Neutrophils # (Manual) (1.3-7.7) k/uL Lymphocytes # (1.0-4.8) k/uL Lymphocytes # (Manual) (1.0-4.8) k/uL Monocytes # (0-1.0) k/uL Monocytes # (Manual) (0-1.0) k/uL Eosinophils # (0-0.7) k/uL Basophils # (0-0.2) k/uL Metamyelocytes # (Man) (0) k/uL Nucleated RBCs (0-0) /100 WBC Manual Slide Review Hypochromasia Poikilocytosis (manual Anisocytosis Macrocytosis APTT (22.0-30.0) sec Sample Site ABG pH (7.35-7.45) ABG pCO2 (35-45) mmHg ABG pO2 (83-108) mmHg ABG HCO3 (21-25) mmol/L ABG Total CO2 (19-24) mmol/L ABG O2 Saturation (94-97) % ABG Base Excess mmol/L Sincere Test FiO2 % Sodium (137-145) mmol/L Potassium (3.5-5.1) mmol/L Chloride (98-107) mmol/L Carbon Dioxide (22-30) mmol/L Anion Gap mmol/L BUN (7-17) mg/dL Creatinine (0.52-1.04) mg/dL Est GFR (CKD-EPI)AfAm (>60 ml/min/1.73 sqM) Est GFR (CKD-EPI)NonAf (>60 ml/min/1.73 sqM) Glucose (74-99) mg/dL POC Glucose (mg/dL) 528 H (75-99) mg/dL POC Glu Bead Trimmer ID Weier, Lori Lactic Ac Sepsis Rflx Plasma Lactic Acid Catrachito (0.7-2.0) mmol/L Calcium (8.4-10.2) mg/dL Total Bilirubin (0.2-1.3) mg/dL AST (14-36) U/L ALT (4-34) U/L Alkaline Phosphatase (38-126) U/L Troponin I (0.000-0.034) ng/mL Total Protein (6.3-8.2) g/dL Albumin (3.5-5.0) g/dL Coronavirus (PCR) Not Detected (Not Detectd) Blood Type Blood Type Recheck Bld Type Recheck Status Antibody Screen Crossmatch Transfuse Plasma Transfuse Platelets 09/29/20 Spec Expiration Date 09/29/20 09/29/20 09/29/20 Range/Units 01:06 02:03 02:18 WBC (3.8-10.6) k/uL RBC (3.80-5.40) m/uL Hgb (11.4-16.0) gm/dL Hct (34.0-46.0) % MCV (80.0-100.0) fL MCH (25.0-35.0) pg MCHC (31.0-37.0) g/dL RDW (11.5-15.5) % Plt Count (150-450) k/uL MPV Neutrophils % % Neutrophils % (Manual) % Band Neuts % (Manual) % Lymphocytes % % Lymphocytes % (Manual) % Monocytes % % Monocytes % (Manual) % Eosinophils % % Basophils % % Metamyelocytes % % Other Cells % Neutrophils # (1.3-7.7) k/uL Neutrophils # (Manual) (1.3-7.7) k/uL Lymphocytes # (1.0-4.8) k/uL Lymphocytes # (Manual) (1.0-4.8) k/uL Monocytes # (0-1.0) k/uL Monocytes # (Manual) (0-1.0) k/uL Eosinophils # (0-0.7) k/uL Basophils # (0-0.2) k/uL Metamyelocytes # (Man) (0) k/uL Nucleated RBCs (0-0) /100 WBC Manual Slide Review Hypochromasia Poikilocytosis (manual Anisocytosis Macrocytosis APTT (22.0-30.0) sec Sample Site ABG pH (7.35-7.45) ABG pCO2 (35-45) mmHg ABG pO2 (83-108) mmHg ABG HCO3 (21-25) mmol/L ABG Total CO2 (19-24) mmol/L ABG O2 Saturation (94-97) % ABG Base Excess mmol/L Sincere Test FiO2 % Sodium (137-145) mmol/L Potassium (3.5-5.1) mmol/L Chloride (98-107) mmol/L Carbon Dioxide (22-30) mmol/L Anion Gap mmol/L BUN (7-17) mg/dL Creatinine (0.52-1.04) mg/dL Est GFR (CKD-EPI)AfAm (>60 ml/min/1.73 sqM) Est GFR (CKD-EPI)NonAf (>60 ml/min/1.73 sqM) Glucose (74-99) mg/dL POC Glucose (mg/dL) 435 H (75-99) mg/dL POC Glu Bead Trimmer ID Lori Lundberg Lactic Ac Sepsis Rflx Plasma Lactic Acid Catrachito (0.7-2.0) mmol/L Calcium (8.4-10.2) mg/dL Total Bilirubin (0.2-1.3) mg/dL AST (14-36) U/L ALT (4-34) U/L Alkaline Phosphatase (38-126) U/L Troponin I (0.000-0.034) ng/mL Total Protein (6.3-8.2) g/dL Albumin (3.5-5.0) g/dL Coronavirus (PCR) (Not Detectd) Blood Type Blood Type Recheck Bld Type Recheck Status Antibody Screen Crossmatch Transfuse Plasma 09/29/20 09/29/20 Transfuse Platelets Spec Expiration Date Critical Care Time Critical Care Time: Yes Total Critical Care Time: 300 Disposition Clinical Impression: GI bleed, DKA (diabetic ketoacidoses), Cardiac arrest, Hyperkalemia, Respiratory failure, Rib fracture, Pneumothorax, Unresponsive Disposition: Referrals: Antonio Kothari MD [Primary Care Provider] - 1-2 days Preliminary Cause of : Hemorrhagic shock
[2020-09-28] MEDS ORDERED: NOREPINEPHRINE 8 MG in SODIUM CHLORIDE 0.9% 250 ML IV ONE (19:27)
[2020-09-28] MEDS ORDERED: NOREPINEPHRINE 32 MG in SODIUM CHLORIDE 0.9% 218 ML IV SCH (19:30)
[2020-09-28 19:37] LABS: Anisocytosis Slight; HCT 34.9 % (34.0-46.0); HGB 10.6 gm/dL (11.4-16.0); Hypochromasia Marked; MCH 32.9 pg (25.0-35.0); MCHC 30.4 g/dL (31.0-37.0); MCV 108.2 fL (80.0-100.0); Macrocytosis Marked; Mean Platelet Volume 9.3; RBC 3.22 m/uL (3.80-5.40); RDW 18.3 % (11.5-15.5)
[2020-09-28 19:45] LABS: ALT 84 U/L (4-34); AST 156 U/L (14-36); African American GFR (CKD) 28 (>60 ml/min/1.73 sqM); Albumin 2.5 g/dL (3.5-5.0); Alkaline Phosphatase 84 U/L (38-126); Blood Urea Nitrogen 34 mg/dL (7-17); Calcium 9.1 mg/dL (8.4-10.2); Chloride 102 mmol/L (98-107); Glucose 479 mg/dL (74-99); Non-African American GFR(CKD) 24 (>60 ml/min/1.73 sqM); Sodium 134 mmol/L (137-145); Total Bilirubin 0.4 mg/dL (0.2-1.3); Total Protein 4.7 g/dL (6.3-8.2)
[2020-09-28 20:04] LABS: Carbon Dioxide <5 mmol/L (22-30); Potassium 7.2 mmol/L (3.5-5.1)
[2020-09-28 20:12] LABS: Band Neutrophils % 6 %; Metamyelocytes # (M) 0.53 k/uL (0); Metamyelocytes % 2 %; Monocytes # (M) 1.33 k/uL (0-1.0); Neutrophils % (M) 41 %; Nucleated Red Blood Cells 4 /100 WBC (0-0); Total Cells Counted 200; WBC 26.6 k/uL (3.8-10.6)
[2020-09-28 20:13] LABS: Poikilocytosis (M) Present
[2020-09-28] MEDS ORDERED: CALCIUM GLUCONATE 1 GM in SODIUM CHLORIDE 0.9% 100 ML IVPB ONE (20:30)
[2020-09-28] MEDS ORDERED: SODIUM BICARB 8.4% 50 ML SYR (1 MEQ/ML) IV ONE (20:30)
[2020-09-28] MEDS ORDERED: INSULIN REGULAR 100 UNIT/ML VIAL (IV) IV ONE ×2 (20:30→22:09)
[2020-09-28] MEDS ORDERED: DEXTROSE 50% SYRINGE 50 ML IVP ONE (20:30)
[2020-09-28] MEDS ORDERED: MIDAZOLAM 1 MG/ML 5 ML VIAL IV STA (20:46)
[2020-09-28 21:00] VITALS: TEMP 98.7
[2020-09-28 21:32] LABS: Anisocytosis Slight; Basophils # (A) 0.4 k/uL (0-0.2); Basophils % (A) 2 %; Eosinophils # (A) 0.1 k/uL (0-0.7); Eosinophils % (A) 1 %; HCT 25.3 % (34.0-46.0); Hypochromasia Marked; Lymphocytes # (A) 5.9 k/uL (1.0-4.8); Lymphocytes % (A) 28 %; MCHC 32.7 g/dL (31.0-37.0); Macrocytosis Slight; Mean Platelet Volume 9.5; Monocytes # (A) 0.5 k/uL (0-1.0); Monocytes % (A) 2 %; Neutrophils # (A) 14.4 k/uL (1.3-7.7); Neutrophils % (A) 67 %; Platelet Count 47 k/uL (150-450); RBC 2.58 m/uL (3.80-5.40); RDW 17.1 % (11.5-15.5); WBC 21.6 k/uL (3.8-10.6)
--- NOTE | 2020-09-28 21:41 | CT ---
EXAM: CT brain wo con CLINICAL HISTORY: Altered mental status. COMPARISON: 04/19/2020. TECHNIQUE: Contiguous axial noncontrast images of the brain were obtained. Coronal and sagittal refor mats were generated and reviewed. Automated dose control was used for this exam. FINDINGS: There is no evidence for intracranial hemorrhage, mass effect or midline shift. There is mild parench ymal volume loss and white matter disease. Ventricular size and configuration is within normal limits for degree of parenchymal volume. The paranasal sinuses demonstrate moderate disease. The mastoid air cells are clear. No evidence for calvarial fracture. IMPRESSION: No acute intracranial abnormality.
[2020-09-28 21:43] LABS: Albumin 1.6 g/dL (3.5-5.0); Calcium 7.5 mg/dL (8.4-10.2); Total Bilirubin 0.5 mg/dL (0.2-1.3); Total Protein 3.3 g/dL (6.3-8.2)
[2020-09-28 21:49] LABS: HGB 8.3 gm/dL (11.4-16.0)
[2020-09-28 22:00] LABS: ABG Base Excess -11.4 mmol/L; ABG HCO3 17 mmol/L (21-25); ABG Oxygen Saturation 99.5 % (94-97); ABG PCO2 43 mmHg (35-45); ABG PO2 384 mmHg (83-108); ABG TCO2 18 mmol/L (19-24); Allen Test Performed? Yes
[2020-09-28 22:08] LABS: Potassium 5.9 mmol/L (3.5-5.1)
--- NOTE | 2020-09-28 22:09 | CT ---
EXAMINATION TYPE: CT angio thor/abd pel aorta DATE OF EXAM: 09/28/2020 COMPARISON: 04/19/2020. HISTORY: unresponsive CT DLP: 1511 mGycm. Automated Exposure Control for Dose Reduction was Utilized. CONTRAST: CTA scan of the thorax, abdomen and pelvis is performed without and with IV Contrast, patient injecte d with 100 mL of Isovue 370. Multiplanar and MIPS reformats were generated and reviewed. FINDINGS: CTA: There is ectasia of the ascending aorta measuring up to 3 cm. Otherwise no aneurysm, dissection or rupture of the thoracic aorta. There is minimal atherosclerotic calcification. The abdominal aorta is grossly normal in caliber with mild atherosclerotic calcifications. No evidenc e of dissection, rupture or aneurysm. The celiac artery, SMA, SCAR, renal arteries, iliac arteries and visualized branches are grossly intact without significant stenosis. LUNGS: There is trace right pneumothorax. There are scattered mild dependent opacities throughout the bilateral lungs. There are trace bilateral pleural effusions. There is demonstration of an endotrac heal tube with tip coursing towards the right mainstem bronchus. MEDIASTINUM: There are no greater than 1 cm hilar or mediastinal lymph nodes. Moderate pericardial ef fusion is seen. OTHER: No additional significant abnormality is seen. LIVER/GB: No significant abnormality is appreciated. PANCREAS: No significant abnormality is seen. SPLEEN: No significant abnormality is seen. ADRENALS: No significant abnormality is seen. KIDNEYS: Few nonobstructing bilateral renal calculi, measuring up to 4 mm. No bilateral hydronephrosi s. BOWEL: Right ostomy seen. Visualized multi focal hyperdense area within the stomach. Otherwise no bow el obstruction, free air or fluid. NG tube with tip in the stomach. GENITAL ORGANS: Urinary bladder is decompressed by Mercado catheter, limiting evaluation. LYMPH NODES: No greater than 1cm abdominal or pelvic lymph nodes are appreciated. OSSEOUS STRUCTURES: Chronic appearing right first through eighth and left first through seventh rib f ractures. Chronic appearing T7, T8 T11, T12, L1, L3, L4 and L5 compression fractures. T8 vertebral pl corbin is seen. Otherwise mild to moderate compression of the remaining fractures. OTHER: No significant additional abnormality is seen. IMPRESSION: Trace right pneumothorax. Mild dependent opacities may represent atelectasis and/or aspiration changes. Multiple bilateral rib fractures as enumerated above. Fractures appear chronic, however acute compone nt at excluded. Multifocal hyperdense area within the stomach, concerning for active the extravasation, given history of GI bleed. Moderate pericardial effusion. Multilevel thoracolumbar compression fractures, new compared to CT from 04/19/2020. No acute aortic pathology. Ectasia of the ascending aorta. Findings were reported to caring physician by me at the time of dictation.
[2020-09-28] MEDS ORDERED: INSULIN REGULAR BOLUS (FROM DRIP BAG) IV PRN (22:11)
[2020-09-28] MEDS ORDERED: PIPERACILLIN-TAZOBACTAM 3.375 GM in SODIUM CHLORIDE 0.9% 100 ML IVPB STA (22:15)
[2020-09-28] MEDS ORDERED: INSULIN REGULAR 100 UNIT in SODIUM CHLORIDE 0.9% 100 ML IV SCH (22:15)
[2020-09-28] MEDS ORDERED: TRANEXAMIC ACID 1,000 MG in SODIUM CHLORIDE 0.9% 100 ML IVPB ONE (22:18)
--- NOTE | 2020-09-28 22:25 | XR ---
EXAMINATION TYPE: XR chest 1V portable DATE OF EXAM: 09/28/2020 COMPARISON: Radiograph 07/25/2020. Concurrent CT. HISTORY: Line placement. TECHNIQUE: Single frontal view of the chest is obtained. FINDINGS: There is placement of endotracheal tube with tip coursing along the right mainstem bronchu s. There is a right IJ catheter with tip overlying the right atrium. There is a nasogastric tube with tip overlying the stomach. There is bilateral diffuse mild hazy opacity, most pronounced in the left lung base. Known trace right pneumothorax and trace pleural effusions are radiographically occult. T he cardiac silhouette size is mildly enlarged. Multiple bilateral rib fractures seen. IMPRESSION: Status post support apparatus. Endotracheal tube courses towards the right mainstem bron chus. Known trace right pneumothorax, better depicted on prior CT. Medical team is aware of findings.
[2020-09-28 22:52] LABS: Glucose,Whole Blood 566 mg/dL (75-99)
--- NOTE | 2020-09-28 23:22 | XR ---
EXAMINATION TYPE: XR chest 1V portable DATE OF EXAM: 09/28/2020 COMPARISON: 09/28/2020 HISTORY: Check tube placement TECHNIQUE: FINDINGS: Endotracheal tube is 12 mm from the elisa. There is right jugular catheter with the tip in the right atrium. There is nasogastric tube in the stomach. There is some patchy atelectasis and inf iltrate at the lung bases. There is no obvious heart failure. There are chest leads. IMPRESSION: There is some infiltrate and atelectasis at the lung bases without change compared to exa m 2 hours ago. No obvious heart failure.
[2020-09-28 23:47] LABS: Glucose,Whole Blood 528 mg/dL (75-99)
[2020-09-29] MEDS: KETAMINE 10 MG/ML 20 ML VIAL IV ONE ×2 (00:41→02:57)
[2020-09-29] MEDS ORDERED: KETAMINE 50 MG/ML 10 ML VIAL IV SCH (00:45)
[2020-09-29] MEDS ORDERED: EPINEPHrine 10 ML SYRINGE (0.1 MG/ML) ONE (00:48)
--- NOTE | 2020-09-29 01:55 | XR ---
EXAM: XR Chest, 1 View CLINICAL HISTORY: pain TECHNIQUE: Frontal view of the chest. COMPARISON: 09/28/202306 FINDINGS: Lungs: Left greater than right alveolar and interstitial opacities. Pleural space: No pneumothorax. Similar small bilateral pleural effusions versus pleural thickening. Heart: No significant abnormality. No cardiomegaly. Mediastinum: No significant abnormality. Bones/joints: Similar displaced right rib fractures. Tubes, lines and devices: A catheter projects over the right axilla. Endotracheal tube tip projects approximately 1.5 cm above the elisa. Esophagogastric tube tip projects over the stomach. Right IJ central venous catheter tip projects over the cavoatrial junction. IMPRESSION: 1. A catheter projects over the right axilla. Correlate clinically. Other support devices are stable. No pneumothorax. 2. Left greater than right alveolar and interstitial opacities may be related to edema or an infectious or inflammatory.
[2020-09-29 02:04] LABS: Glucose,Whole Blood 435 mg/dL (75-99)
[2020-09-29] MEDS ORDERED: SODIUM BICARB 8.4% 50 ML SYR (1 MEQ/ML) IV STA (02:15)
--- NOTE | 2020-09-29 02:39 | XR ---
EXAM: XR Chest, 1 View CLINICAL HISTORY: CPR TECHNIQUE: Frontal view of the chest. COMPARISON: 09/28/20 FINDINGS: Limitations: Cutaneous pacemaker pads. Lungs: Persistent left greater than right alveolar and interstitial opacities. Pleural space: Probable small bilateral pleural effusions. No pneumothorax. Heart: Stable. Mediastinum: Stable. Bones/joints: Similar right rib fractures. Tubes, lines and devices: New right chest tube tip projects over the right hilum. Support devices are otherwise stable. IMPRESSION: New right chest tube tip projects over the right hilum. Support devices are otherwise stable. No pneumothorax.
[2020-09-29 04:02] VITALS: BP 67/39; RESP 24
[2020-09-29 04:03] VITALS: PULSE 0
[2020-09-29 18:21] LABS: Platelet Count 79 k/uL (150-450)
== END 2020-09-29 04:36 ==
LOC: EC 18:41
DX: I46.9 Cardiac arrest, cause unspecified (principal); E11.10 Type 2 diabetes mellitus with ketoacidosis without coma; J96.90 Respiratory failure, unspecified, unspecified whether with hypoxia or hypercapnia; J93.9 Pneumothorax, unspecified; K92.2 Gastrointestinal hemorrhage, unspecified; E87.5 Hyperkalemia; S22.39XA Fracture of one rib, unspecified side, initial encounter for closed fracture; E78.5 Hyperlipidemia, unspecified; K21.9 Gastro-esophageal reflux disease without esophagitis; M19.90 Unspecified osteoarthritis, unspecified site; E11.22 Type 2 diabetes mellitus with diabetic chronic kidney disease; I12.9 Hypertensive chronic kidney disease with stage 1 through stage 4 chronic kidney disease, or unspecified chronic kidney disease; N18.9 Chronic kidney disease, unspecified; W19.XXXA Unspecified fall, initial encounter
CPT/HCPCS: 36415 ×2; 36600; 94002; 93005; 86900; 86901; 80053; 82805; 83605; 84484; 85025; 85730; 86850; 86920; 87635; 71045 ×2; 70450; 71275; 74174; 99291; 99292; 96365; 96367; 96368; 96375; C1729; P9016; P9059; J2543; J0171 ×2; J2250; J0610; J2704; Q9967; 94003